=== PATIENT | male | born 1945 | race Caucasian/White ===

== ENCOUNTER → 2016-12-13 | Outpatient (CLI) | payer MEDICARE ==
[~2016-12-13] MED LIST: AMOX500C2 PO; ASP81TEC PO; AVOD0.5CAP PO; CALC500T24 PO; CATHETER FLUSH 10 ML SYR IV PRN; CCLB10TRX; CITA20TA4 PO; CLPD75T PO; CYANOCOBALAMIN SL; DEXT1DRO7 OU; ETD400T; EXEN10PE4 SQ; FOLI1TAB6 PO; HYDR-31; HYDR1TAB PO; IBUP-30 PO; INSU100V6 SQ; IOHEXOL 350 MG/ML 100 ML (OMNIPAQUE 350) VIAL IV ONE; IRBE300T9 PO; LVST20T PO; MAGN400C PO; MELO-195 PO; METF-380 PO; METO25TA PO; MTF500T; MULT-1029 PO; NS 100 ML (IVPB) BAG IV ONE; OMEG1CAP51 PO; OMEG1CAP58 PO; PEG250PW; POTA99TA15 PO; RSG4T; TRAV5DRO OP; VITAMIN B COMPLEX SL; VLS80C
--- NOTE | 2016-12-13 15:19 | Diagnostic Imaging Report ---
PROCEDURE: CT abdomen and pelvis with contrast. TECHNIQUE: Multiple contiguous axial images were obtained through the abdomen and pelvis after administration of intravenous contrast. INDICATION: Abdominal mass. COMPARISON STUDIES: None. FINDINGS: Just above the symphysis pubis, there is subcutaneous mass extending all the way down to the abdominal wall musculature. This measures 12 x 7.2 cm. This has a thin well-defined rim around it with slightly inhomogeneous substance within this. This is fairly high density and may be a hematoma. No calcifications are present. There are no hematocrit levels. No ascites or loculated fluid collections are seen within the abdominal cavity. The lung bases are clear. There is some calcification of the mitral valve annulus. The liver, gallbladder, spleen, pancreas, adrenal glands and kidneys appear normal. Minimal arteriosclerosis is present. Urinary bladder and prostate gland appear normal. No hernias are present. Degenerative and postoperative changes are present in the spine. IMPRESSION: There is a 12 x 7.2 cm subcutaneous abdominal wall mass just above the symphysis pubis. This extends all the way down to the abdominal musculature just above the symphysis pubis. This has a thin rim around it and is somewhat inhomogeneous but fairly high density. This is probably a hematoma. This could be easily aspirated or biopsied. Dictated by: Dictated on workstation # [id number]
== END ==
LOC: RAD 13:58
PROVIDERS: ATTEND Family Medicine
DX: R19.00 Intra-abdominal and pelvic swelling, mass and lump, unspecified site (principal)
CPT/HCPCS: 74177

== ENCOUNTER → 2016-12-31 | Outpatient (CLI) | payer MEDICARE ==
[~2016-12-31] VITALS: Ht 170.2 cm; Wt 129.8 kg
[~2016-12-31] MED LIST changes: -CATHETER FLUSH 10 ML SYR IV PRN; -IOHEXOL 350 MG/ML 100 ML (OMNIPAQUE 350) VIAL IV ONE; +LIDOCAINE 1% INJ 20 ML (XYLOCAINE) VIAL INJ ONE; -NS 100 ML (IVPB) BAG IV ONE
[2016-12-31 12:38] VITALS: BP 134/88
[2016-12-31 13:41] VITALS: BP 130/87
--- NOTE | 2016-12-31 20:19 | Diagnostic Imaging Report ---
EXAMINATION: Ultrasound-guided aspiration. INDICATION: Abdominal wall collection. Current history and physical and other medical records are reviewed prior to the procedure. CONSENT: Informed consent was obtained from the patient. The risks, benefits, potential complications and alternatives were reviewed and all questions answered to the patient's satisfaction. The patient's vital signs, cardiac rhythm, and pulse oximetry with observed throughout the procedure by qualified nursing personnel. Sedation/medications: None. PROCEDURE: After maximal sterile barrier technique preparation and draping, 1% lidocaine was utilized for local anesthesia. Under live ultrasound guidance, 5 [place] African WholeWorldBand catheter was introduced over its needle into the thick complex collection measuring 13 x 5.6 x 5 CM in the umbilical and infraumbilical region under live ultrasound guidance with images saved demonstrating good position of the needle. This was followed by introducing a wire into the collection and subsequently dilatation with 8 South African and 10 South African dilators were performed. Then a 10 South African drainage pigtail tube was introduced over the wire and total of 180 mL of dark brownish fluid compatible with old blood was aspirated. This did not look grossly infected. The rest of the collection was too thick to be aspirated and is compatible with a hematoma. At the conclusion of the procedure the drain was removed. The patient tolerated the procedure well with no immediate complications. FINDINGS: Findings compatible with old hematoma with no gross evidence of infection.. IMPRESSION: Ultrasound-guided aspiration of abdominal wall hematoma. Dictated by: Dictated on workstation # [id number]
== END ==
LOC: RAD 12:28
PROVIDERS: ATTEND Nurse Practitioner Family
DX: R19.05 Periumbilic swelling, mass or lump (principal)
CPT/HCPCS: 76942

== ENCOUNTER 2017-01-10 05:37 | Outpatient (CLI) | payer MEDICARE ==
[~2017-01-10] VITALS: Ht 170.2 cm; Wt 124.9 kg
[~2017-01-10 05:37] MED LIST changes: -LIDOCAINE 1% INJ 20 ML (XYLOCAINE) VIAL INJ ONE
== END 2017-01-10 12:30 ==
LOC: PREOP 05:37
PROVIDERS: ATTEND Surgery
DX: Z01.818 Encounter for other preprocedural examination (principal); Z12.11 Encounter for screening for malignant neoplasm of colon

== ENCOUNTER 2017-01-21 10:04 | Day surgery (SDC) | payer MEDICARE ==
[2017-01-21 10:10] VITALS: BP 144/78
[2017-01-21] MEDS ORDERED: NS IV 500 ML 500 ML IV PRN (10:30)
[2017-01-21] MEDS ORDERED: NS IV 500 ML 500 ML ONE (10:34)
[2017-01-21] MEDS ORDERED: NALOXONE 0.4 MG/ML 1 ML (NARCAN) VIAL IVP PRN (11:00)
[2017-01-21] MEDS ORDERED: FLUMAZENIL (ROMAZICON) 0.1 MG/ML 5 ML VIAL INJ PRN (11:00)
[2017-01-21] MEDS ORDERED: fentaNYL INJECTION 100 MCG/2 ML AMP ONE (11:39)
[2017-01-21] MEDS ORDERED: MIDAZOLAM 2 MG/2 ML (VERSED) VIAL ONE ×3 (11:39)
[2017-01-21] MEDS: fentaNYL INJECTION 100 MCG/2 ML AMP IVP PRN ×2 (12:04→12:11)
[2017-01-21] MEDS: MIDAZOLAM 2 MG/2 ML (VERSED) VIAL IVP PRN ×2 (12:06→12:10)
--- NOTE | 2017-01-21 12:26 | Conscious Sedation/ASA ---
Conscious Sedation Pre-Proced Time Reviewed: 11:48 ASA Class: 2 Airway Mallampati Classification: (grindstone appropriate class) I. II. III, IV Lungs Heart ASA score ASA 1: a normal healthy patient ASA 2: a patient with a mild systemic disease (mid diabetes, controlled hypertension, obesity ASA 3: a patient with a severe systemic disease that limits activity (angina , COPD, prior Myocardial infarction) ASA 4: a patient with an incapacitating disease that is a constant threat to life (CHF, renal failure) ASA 5: a moribund patient not expected to survive 24 hrs. (ruptured aneurysm) ASA 6: a declared brain patient whose organs are being harvested. For emergent operations, add the letter E after the classification Grade 2 Sedation Plan: Discussed options with patient/fam Note The patient is an appropriate candidate to undergo the planned procedure, sedation, and anesthesia. The patient immediately re-assessed prior to indication. KILEY WEST MD January 21, 2017 12:26 pm
--- NOTE | 2017-01-21 12:27 | Endoscopy Procedure Report ---
Endoscopy Report Date: January 21, 2017 Preoperative Diagnosis: screening Study Performed: Colonoscopy Procedure Instrument: Colonoscope Endo Procedure/Findings Findings 1.: Diverticulosis Recommendations: Recommendations: 1.: Colonscopy in 10 years Copy Copies To 1: CJ JOYA MD, XAVIER M MD January 21, 2017 12:27 pm
--- NOTE | 2017-01-21 12:28 | Discharge Inst-Simple/Standard ---
Discharge Inst-Standard Discharge Medications New, Converted or Re-Newed RX: Other Patient Instructions/Follow Up Plan of Care/Instructions/FU: repeat colonoscopy in 10 years Activity as Tolerated: Yes Discharge Diet: No Restrictions KILEY WEST MD January 21, 2017 12:28 pm
[2017-01-21 12:40] VITALS: BP 125/81
[2017-01-21 13:10] VITALS: BP 136/78
[2017-01-21 13:55] VITALS: BP 136/78
--- NOTE | 2017-01-22 00:10 | OPERATIVE REPORT ---
DATE OF SERVICE: 01/21/2017 PROCEDURE: Screening colonoscopy. SURGEON: Kiley West MD INDICATION FOR PROCEDURE: This gentleman came in for screening colonoscopy. He denied any family history of colon cancer. Informed consent was obtained after reviewing the procedure in detail. DESCRIPTION OF PROCEDURE: He was placed in left lateral decubitus position, and his vital signs were monitored. Conscious sedation was achieved using Versed and Fentanyl. Digital rectal examination was unremarkable. The colonoscope was then introduced into the rectum and advanced all the way up to the rectum. The scope was then withdrawn slowly, and the mucosa examined in a systematic fashion. FINDINGS: 1. Sigmoid diverticulosis. 2. No polyps were found. He tolerated the procedure and was taken back to the nursing area in a stable condition. IMPRESSION: Screening colonoscopy. No polyps. Job ID: [id number] DocumentID: [id number] Dictated Date: 01/21/2017 12:23:41 Screenplay Writer Date: 01/22/2017 00:09:12 Dictated By: KILEY WEST MD MTDD
== END 2017-01-21 13:55 | disposition home or self-care (01) ==
LOC: ENDO 10:04
PROVIDERS: ATTEND Surgery
DX: Z12.11 Encounter for screening for malignant neoplasm of colon (principal); K57.30 Diverticulosis of large intestine without perforation or abscess without bleeding; I10 Essential (primary) hypertension; I25.10 Atherosclerotic heart disease of native coronary artery without angina pectoris; E11.9 Type 2 diabetes mellitus without complications; K21.9 Gastro-esophageal reflux disease without esophagitis; E78.5 Hyperlipidemia, unspecified; M19.90 Unspecified osteoarthritis, unspecified site

== ENCOUNTER → 2017-04-11 | Outpatient (CLI) | payer MEDICARE | LOC: CARD 09:27 | PROVIDERS: ATTEND Family Medicine | DX: I49.9 Cardiac arrhythmia, unspecified (principal) | CPT/HCPCS: 93225; 93226 ==

== ENCOUNTER → 2017-06-10 | Outpatient (CLI) | payer MEDICARE ==
--- NOTE | 2017-06-10 16:00 | Diagnostic Imaging Report ---
PA and lateral views of the chest. INDICATION: Chronic cough. FINDINGS: The lungs are hyperinflated with no focal infiltrate. Mild interstitial thickening appears to be chronic. No prior studies are available for comparison however. The heart size is mildly enlarged. No effusion or pneumothorax. The mediastinum and herminio appear unremarkable. There is degenerative change in the thoracic spine with anterior longitudinal ligament ossifications and anterior osteophytes. IMPRESSION: Cardiomegaly with no evidence of failure. Dictated by: Dictated on workstation # [id number]
== END ==
LOC: RAD 13:40
PROVIDERS: ATTEND Otolaryngology Otolaryngology/Facial Plastic Surgery
DX: I51.7 Cardiomegaly (principal); R05 Cough
CPT/HCPCS: 71020

== ENCOUNTER → 2017-06-25 | Outpatient (CLI) | payer MEDICARE ==
[~2017-06-25] MED LIST changes: +CATHETER FLUSH 10 ML SYR IV PRN; +REGADENOSON 0.4 MG/5 ML SYR (LEXISCAN) IV ONE
[2017-06-25 12:50] VITALS: BP 143/77
--- NOTE | 2017-06-27 14:13 | STRESS TEST ---
DATE OF SERVICE: 06/25/2017 RESTING AND POST REGADENOSON TECHNETIUM-99M TETOFOSMIN SPECT CT IMAGING ORDERING PHYSICIAN: Ivanna Concepcion APRN PRIMARY PHYSICIAN: Dr. Harrell. OTHER PHYSICIAN: Dr. Mcintyre. CLINICAL DIAGNOSES: Coronary artery disease. Baseline images were carried out after injection of 10.66 mCi of Technetium-99M Tetrofosmin. This was followed by 0.4 mg regadenoson and 29.7 mCi of Technetium-99M Tetrofosmin for stress imaging. The electrocardiogram showed sinus rhythm at baseline. Old septal myocardial infarction cannot be excluded on the electrocardiogram. The electrocardiogram did not change significantly with the regadenoson infusion. Overall, the patient tolerated the procedure well. Review of images at rest and following stress does not indicate any significant perfusion defects consistent with significant myocardial ischemia or infarction. Gated images show mild global hypokinesis. Left ventricular ejection fraction is calculated to be 47%. Left ventricular end diastolic volume is 70 mL. TID is absent (1.19). CONCLUSIONS: 1. No evidence of significant myocardial ischemia or infarction on this study. 2. Mild global hypokinesis of the left ventricle with left ventricular ejection fraction of 47%. Job ID: [id number] DocumentID: [id number] Dictated Date: 06/27/2017 12:14:37 Vocational Examiner Date: 06/27/2017 12:54:06 Dictated By: KI MCINTYRE MD, MA, FACP, FACC,
== END ==
LOC: CARD 11:14
PROVIDERS: ATTEND Nurse Practitioner Family
DX: I25.10 Atherosclerotic heart disease of native coronary artery without angina pectoris (principal); R06.09 Other forms of dyspnea; I65.23 Occlusion and stenosis of bilateral carotid arteries; E78.4 Other hyperlipidemia
CPT/HCPCS: 78452; 93017

== ENCOUNTER → 2017-07-11 | Outpatient (CLI) | payer MEDICARE ==
[~2017-07-11] MED LIST changes: -CATHETER FLUSH 10 ML SYR IV PRN; -REGADENOSON 0.4 MG/5 ML SYR (LEXISCAN) IV ONE
== END ==
LOC: CARD 12:30
PROVIDERS: ATTEND Nurse Practitioner Family
DX: I25.10 Atherosclerotic heart disease of native coronary artery without angina pectoris (principal); I65.23 Occlusion and stenosis of bilateral carotid arteries; E78.4 Other hyperlipidemia; R06.09 Other forms of dyspnea
CPT/HCPCS: 93306

== ENCOUNTER → 2018-12-11 | Outpatient (CLI) | payer MEDICARE ==
--- NOTE | 2018-12-11 18:05 | Diagnostic Imaging Report ---
PROCEDURE: CT abdomen and pelvis without contrast. TECHNIQUE: Multiple contiguous axial images were obtained through the abdomen and pelvis without the use of intravenous contrast. Auto Exposure Controls were utilized during the CT exam to meet ALARA standards for radiation dose reduction. INDICATION: Abdominal wall hernia. CORRELATION STUDY: 12/13/2016. FINDINGS: Lung bases are clear. Heart size is enlarged. Dense mitral calcification. Low attenuation of the liver suggesting fatty infiltration. Gallbladder appears to be small, maybe contracted. Some debris is not excluded. Unenhanced spleen, pancreas, and adrenal glands demonstrate no suggestion for acute abnormality. The kidneys have a normal configuration. No calcification or evidence for obstruction. Abdominal aorta is nonaneurysmal. There is calcification at the origin of the major branches. Gastrointestinal tract demonstrates the stomach to be distended with retained gastric contents. No bowel obstruction. Vqfd-qv-vaupalrd severity fecal retention with distal colonic fecal loading. There is again noted an elongated, somewhat thick-walled abdominal mass just above the level of the symphysis pubis to the left of midline and extending superiorly to the level of the umbilicus. This appears relatively stable. There has been development of a new, larger fluid collection to the left of lateral aspect of this. This is incompletely imaged but measures at least 9.3 cm AP x 13.3 cm transverse x 15.5 cm in its craniocaudal length. There is a suggestion of fluid-fluid level within this larger mass. The inferior extent of this mass is incompletely imaged. Urinary bladder is relatively decompressed. Osseous structures demonstrate a posterior fusion hardware. Advanced degenerative changes are present. IMPRESSION: 1. A subcutaneous lower abdominal wall mass just above the symphysis pubis overall appears generally stable. There has been, however, development of a new, thinner walled but larger mass with fluid-fluid level or debris fluid level to the lateral aspect of this. These areas are incompletely imaged. Dictated by: Dictated on workstation # [id number]
== END ==
LOC: RAD 16:29
PROVIDERS: ATTEND Surgery
DX: K43.9 Ventral hernia without obstruction or gangrene (principal); R22.2 Localized swelling, mass and lump, trunk
CPT/HCPCS: 74176

== ENCOUNTER 2019-01-08 08:58 | Outpatient (CLI) | payer MEDICARE ==
[~2019-01-08] VITALS: Ht 170.2 cm; Wt 106.1 kg
[2019-01-08 09:13] VITALS: BP 155/71
[2019-01-08] MEDS ORDERED: LOVA20TA2 PO (10:05)
[2019-01-08] MEDS ORDERED: METO-387 PO (10:05)
[2019-01-08] MEDS ORDERED: OMEG-91 PO (10:05)
[2019-01-08] MEDS ORDERED: METF-399 PO (10:05)
[2019-01-08] MEDS ORDERED: CLOP75TA28 PO (10:05)
[2019-01-08] MEDS ORDERED: ASPI-999 PO (10:05)
[2019-01-08] MEDS ORDERED: MAGN400T50 PO (10:05)
[2019-01-08] MEDS ORDERED: IRBE300T18 PO (10:05)
[2019-01-08] MEDS ORDERED: FINA5TAB6 PO (10:09)
[2019-01-08] MEDS ORDERED: PANT40TA3 PO (10:09)
[2019-01-08] MEDS ORDERED: CARB1TAB19 PO (10:09)
[2019-01-08] MEDS ORDERED: MAGN250T13 PO (10:14)
[2019-01-08] MEDS ORDERED: [UNRECOGNIZED DRUG - OTHER] PO (10:14)
[2019-01-08] MEDS ORDERED: VITA1TAB78 PO (10:14)
[2019-01-08] MEDS ORDERED: VITA-189 PO (10:14)
[2019-01-08] MEDS ORDERED: UBID100C17 PO (10:30)
== END 2019-01-08 09:45 | disposition home or self-care (01) ==
LOC: PREOP 08:58
PROVIDERS: ATTEND Surgery
DX: Z01.810 Encounter for preprocedural cardiovascular examination (principal); Z11.2 Encounter for screening for other bacterial diseases; R19.09 Other intra-abdominal and pelvic swelling, mass and lump
CPT/HCPCS: 87081; 93005

== ENCOUNTER 2019-01-15 06:17 | Day surgery (SDC) | payer MEDICARE ==
[~2019-01-15] VITALS: Ht 170.2 cm; Wt 106.1 kg
[2019-01-15] VITALS (14 sets, daily range): BP systolic 121–178; BP diastolic 57–86
[~2019-01-15 06:17] MED LIST changes: +ASPI-999 PO; +CARB1TAB19 PO; +CLOP75TA28 PO; +FINA5TAB6 PO; +IRBE300T18 PO; +LOVA20TA2 PO; +MAGN250T13 PO; +MAGN400T50 PO; +METF-399 PO; +METO-387 PO; +OMEG-91 PO; +PANT40TA3 PO; +UBID100C17 PO; +VITA-189 PO; +VITA1TAB78 PO; +[UNRECOGNIZED DRUG - OTHER] PO
[2019-01-15] MEDS ORDERED: CATHETER FLUSH 10 ML SYR IV PRN (07:00)
[2019-01-15] MEDS ORDERED: ceFAZolin 2 GM/50 ML NS 50 ML IV ONE (07:00)
[2019-01-15] MEDS ORDERED: proPOfol 200 MG/20 ML (DIPRIVAN) VIAL IV ONE (07:04)
[2019-01-15] MEDS ORDERED: LIDOCAINE PF 2% 5 ML (XYLOCAINE) VIAL ONE (07:04)
[2019-01-15] MEDS ORDERED: MIDAZOLAM 2 MG/2 ML (VERSED) VIAL ONE (07:04)
[2019-01-15] MEDS ORDERED: DEXAMETHASONE 10 MG/ML (DECADRON) 1 ML VIAL ONE (07:04)
[2019-01-15] MEDS ORDERED: fentaNYL INJECTION 250 MCG/5 ML AMP ONE (07:04)
[2019-01-15] MEDS ORDERED: SEVOFLURANE (ULTANE) 15 ML INHAL SOLN ONE ×9 (07:04→09:31)
[2019-01-15] MEDS ORDERED: ONDANSETRON 4 MG/2 ML (SDV) Z0FRAN ONE (07:04)
--- NOTE | 2019-01-15 07:19 | Progress Note-Pre Operative ---
Pre-Operative Progress Note H&P Reviewed The H&P was reviewed, patient examined and no changes noted. Date Seen by Provider: January 15, 2019 Time Seen by Provider: 07:02 Date H&P Reviewed: January 15, 2019 Time H&P Reviewed: 07:02 Pre-Operative Diagnosis: abdominal wall mass RHODA WYNN DO January 15, 2019 07:19
[2019-01-15] MEDS: LACTATED RINGERS 1,000 ML IV PRN ×2 (07:47→08:45)
[2019-01-15] MEDS ORDERED: metroNIDAZOLE 500MG/100ML IVPB 100 ML ONE (08:42)
[2019-01-15] MEDS ORDERED: BUPIVACAINE 0.5% 30 ML (SENSORCAINE) VIAL ONE (09:31)
[2019-01-15] MEDS ORDERED: MEPERIDINE (DEMEROL) INJ 50 MG/ML IVP ONE (09:45)
[2019-01-15] MEDS ORDERED: fentaNYL INJECTION 100 MCG/2 ML AMP IVP ONE (09:45)
[2019-01-15] MEDS ORDERED: ONDANSETRON 4 MG/2 ML (SDV) Z0FRAN IVP PRN (09:45)
[2019-01-15] MEDS ORDERED: HYDROcodone/APAP 5 MG/325 MG (LORTAB) TAB PO PRN (09:45)
[2019-01-15] MEDS ORDERED: fentaNYL INJECTION 100 MCG/2 ML AMP IVP PRN (09:45)
[2019-01-15] MEDS ORDERED: LACTATED RINGERS 1,000 ML BAG IV SCH (09:45)
--- NOTE | 2019-01-15 10:30 | Progress Note-Post Operative ---
Post-Operative Progess Note Surgeon (s)/Desktop Architect (s) Surgeon RHODA WYNN DO Desktop Architect: na Pre-Operative Diagnosis abdominal wall mass Post-Operative Diagnosis cystic mass Procedure & Operative Findings Date of Procedure 01/15/19 Procedure Performed/Findings excsision of cystic mass and wound vac placement subcutaneous layer Anesthesia Type gen Estimated Blood Loss Estimated blood loss (mL): min Specimens/Packing Specimens Removed cyst mass RHODA WYNN DO January 15, 2019 10:30
--- NOTE | 2019-01-15 12:05 | NUR ---
PATIENT TO GO TO ROOM 417. REPORT CALLED DULCE TRAORE RN.
--- NOTE | 2019-01-15 12:25 | NUR ---
ARABELLA JHAVERI admitted to room 417-1, with an OBSERVATION admitting diagnosis of ABD WALL MASS WOUND VAC LLQ , on 01/15/19 from [facility] via [facility], accompanied by .ARABELLA JHAVERI introduced to surroundings, call light, bed controls, phone, TV, temperature control, lights, meal times, smoking policy, visitor policy, side rail policy, bathrooms and showers. Patient Rights given to patient in the handbook. ARABELLA JHAVERI verbalizes understanding that [facility] is not responsible for the loss or damage to any personal effects or valuables that are kept in the patients posession during their hospitalization. The following Patient Care Plans were discussed with the PT: Discharge Planning, PAIN, HIGH RISK FL VOL DEFICIT, AMD HIGH RISK INFECTION. ARABELLA JHAVERI verbalizes understanding of Interdisciplinary Patient Education. Patient and/or family were informed about the Rapid Response Team and its purpose. CAME TO FLOOR WITH IV IN LAC LR ([id number]) INFUSING PER GRAVITY
--- NOTE | 2019-01-15 14:19 | NUR ---
THIS RN CALLED DR WYNN ABOUT WOUND VAC -- IT LOOKS LIKE WOUND VAC WE USE HERE IN HOSPITAL -- DR WYNN VOICED THAT HE WAS TO GO HOME EITHER TODAY OR TOMORROW WITH WOUND VAC -- HE HAD TALKED TO ULISSES -- THIS RN CALLED AND LEFT MESSAGE TO ULISSES ABOUT WOUND VAC
--- NOTE | 2019-01-15 14:58 | NUR ---
TALKED TO [employer] TE[employer]ER MAIKEL AND SHE TALKED TO ULISSES HE IS AWARE OF THE NEED FOR HOME WOUND VAC AND IT WILL BE APPLY WHEN PT DISCHARGED TO HOME
--- NOTE | 2019-01-15 19:18 | OPERATIVE REPORT ---
DATE OF SERVICE: 01/15/2019 PREOPERATIVE DIAGNOSIS: Abdominal wall mass. POSTOPERATIVE DIAGNOSIS: Abdominal wall mass, subcutaneous layer. PROCEDURE PERFORMED: Excision of abdominal mass, subcutaneous layer, 13 x 10 cm and 15 x 13 cm, wound VAC placement 15 x 20 x 7 cm. SURGEON: Rhoda Ramos DO ANESTHESIA: General. ESTIMATED BLOOD LOSS: Minimal. COMPLICATIONS: None. INDICATIONS: The patient is a 73-year-old male with a large abdominal wall mass. This slowly continued increase in size or become more noticeable since he began losing some weight. He understands risks and benefits of procedure and wished to proceed with procedure. Consent was signed in the chart. PROCEDURE IN DETAIL: The patient was taken to the operating suite. He was prepped and draped in sterile fashion. Surgical pause was performed. Incision was made over palpable mass. Cautery was taken down into the subcutaneous layer until the cystic mass was encountered. Dissection around the mass was continued. The first mass was 15 x 13 cm, which the wall was punctured and fluid continuously started to drain. This was suctioned. Then, I put my fingers inside the cavity and began to use this to dissect around the wall. This went to the umbilicus, which then was divided off of the umbilical stalk and encountered an inferior communication to this area from the original large mass. This was then dissected around completely. This communication size was 13 x 10 cm. The entire cystic mass was removed in its entirety. The wound was irrigated with copious amounts of irrigation. The overall dimensions of the wound was 15 x 20 x 7 cm. A wound VAC was placed in the usual fashion within it and the abdomen was then washed and dried and wound VAC was activated giving a good seal. The patient tolerated the procedure well without any complications. The patient was taken to the recovery room in stable condition. Job ID: [id number] DocumentID: [id number] Dictated Date: 01/15/2019 10:48:09 Organ Pipe Maker Metal Date: 01/15/2019 19:17:36 Dictated By: RHODA RAMOS DO
--- NOTE | 2019-01-15 19:39 | Consultation ---
History of Present Illness History of Present Illness Patient Consulted On(cassius/time) 01/15/19 19:34 Date Seen by Provider: January 15, 2019 Time Seen by Provider: 19:45 Reason for Visit: status post mass removal from abdomen History of Present Illness Bert is a 73 y/o male who is well known to me from clinic. Bert presented to the hospital for a planned surgical excision of abdominal masses with Dr. Ramos. This evening he states that his pain is fairly well controlled - he notes that he is having some pain around the surgical site, but not as much as immediately post operative. Allergies and Home Medications Allergies Coded Allergies: morphine (Verified Adverse Reaction, Intermediate, PSYCH ISSUES, 01/21/17) Home Medications Acetaminophen 500 Mg Tablet, 500 MG PO Q6H PRN for PAIN-MILD TO MODERATE Prescribed by: CJ JOYA on 01/16/19 0947 Aspirin 81 Mg Tab.chew, 81 MG PO DAILY, (Reported) Carbidopa/Levodopa 1 Each Tablet, 1 EACH PO TID, (Reported) Clopidogrel Bisulfate 75 Mg Tablet, 75 MG PO DAILY@1200, (Reported) Finasteride 5 Mg Tablet, 5 MG PO DAILY@1700, (Reported) Hydrocodone Bit/Acetaminophen 1 Tab Tab, 1 TAB PO Q4H PRN for PAIN-MODERATE Prescribed by: CJ JOYA on 01/16/19 0947 Ibuprofen 200 Mg Capsule, 600 MG PO TID PRN for PAIN-MODERATE Prescribed by: CJ JOYA on 01/16/19 0947 Irbesartan 300 Mg Tablet, 300 MG PO DAILY, (Reported) Lovastatin 20 Mg Tablet, 20 MG PO HS, (Reported) Magnesium Oxide 400 Mg Tablet, 400 MG PO HS, (Reported) Magnesium Oxide 250 Mg Tablet, 250 MG PO DAILY, (Reported) Metformin HCl 1,000 Mg Tablet, 1,000 MG PO BID, (Reported) Metoprolol Succinate 25 Mg Tab.er.24h, 25 MG PO DAILY@1200, (Reported) [place]-3/Dha/Epa/Dpa/Fish Oil 1 Each Capsule, 1 EACH PO BID, (Reported) Pantoprazole Sodium 40 Mg Tablet.dr, 40 MG PO DAILY@1200, (Reported) Ubidecarenone 100 Mg Capsule, 100 MG PO DAILY, (Reported) Vitamin B Complex 1 Each Tablet, 1 EACH PO DAILY, (Reported) Vitamin D3/Vitamin K2 1 Each Tab.rapdis, 1 EACH PO DAILY, (Reported) [electrolyte power] , 1 EACH PO BID, (Reported) Patient Home Medication List Home Medication List Reviewed: Yes Past Lbtvgwx-Cokofc-Opcwiq Hx Past Med/Social Hx: Reviewed Nursing Past Med/Soc Hx, Reviewed and Corrections made Patient Social History Alcohol Use: Denies Use Recreational Drug Use: No Smoking Status: Never a Smoker 2nd Hand Smoke Exposure: No Recent Foreign Travel: No Contact w/Someone Who Travel: No Recent Infectious Disease Expo: No Recent Hopitalizations: No Physical Abuse: No Sexual Abuse: No Mistreated: No Fear: No Immunizations Up To Date Date of Pneumonia Vaccine: Aug 28, 2011 Date of Influenza Vaccine: Jun 18, 2016 Seasonal Allergies Seasonal Allergies: No Past Medical History Surgeries: Yes (BACK, FATTY TUMOR REMOVED FROM ARM BABY) Respiratory: Yes Sleep Apnea Currently Using CPAP: Yes Cardiac: Yes High Cholesterol, Hypertension Neurological: No (tremors) Reproductive Disorders: No Sexually Transmitted Disease: No HIV/AIDS: No Genitourinary: Yes Benign Prostatic Hyperpl Gastrointestinal: No (abd wall mass) Gastroesophageal Reflux Musculoskeletal: No Endocrine: Yes Diabetes, Non-Insulin dep HEENT: Yes Macular Degeneration Loss of Vision: Bilateral Hearing Impairment: Hard of Hearing Cancer: No Psychosocial: No Integumentary: No Blood Disorders: No Adverse Reaction/Blood Tranf: No Family Medical History Reviewed and Corrections made Heart Disease, Hypertension Review of Systems-General Constitutional: No chills, No fever, No malaise, No weakness; weight loss ( purpuseful) EENTM: No hearing loss, No hoarseness, No throat pain Respiratory: No cough, No dyspnea on exertion, No short of breath, No wheezing Cardiovascular: No chest pain, No edema Gastrointestinal: abdominal pain (LLQ); No loss of appetite, No nausea, No vomiting Genitourinary: no symptoms reported Musculoskeletal: no symptoms reported Skin: other (open wound lower abdomen) Psychiatric/Neurological: Denies Anxiety, Denies Depressed All Other Systems Reviewed Negative Unless Noted: Yes Physical Exam-General Problems Physical Exam Vital Signs Vital Signs - First Documented 01/15/19 01/15/19 06:30 09:37 Temp 97.4 Pulse 57 Resp 18 B/P (MAP) 137/76 (96) Pulse Ox 93 O2 Delivery Room Air O2 Flow Rate 6 Capillary Refill : General Appearance: WD/WN, no apparent distress, obese Eyes: Bilateral Eye Normal Inspection, Bilateral Eye PERRL, Bilateral Eye EOMI HEENT: PERRL/EOMI, pharynx normal Neck: non-tender, supple, normal inspection Respiratory: chest non-tender, lungs clear, normal breath sounds, no respiratory distress Cardiovascular: regular rate, rhythm Gastrointestinal: normal bowel sounds, soft, other (surgical site in left to mid lower abdomen - wound vac in place) Extremities: non-tender, no calf tenderness, normal capillary refill Skin: warm/dry Lymphatic: no adenopathy Assessment/Plan Assessment/Plan Admission Diagnosis/Plan Abdominal masses Hypertension Diabetes mellitus Morbid obesity Hyperlipidemia BPH Abdominal masses - post surgical - mass excision - wound Vac in place - planning on wound vac changes tomorrow and then outpatient wound vac changes for several weeks post surgically until the wound heals. Hypertension - resume home medication today. Diabetes mellitus - resume medication on discharge. Morbid obesity - continue with restrictive diet. Hyperlipidemia - continue with statin therapy on discharge. BPH - resume finasteride. Planning on discharge to home tomorrow with outpatient wound care per Dr. Ramos. Admission Status: Other (Same Day Surgery) CJ JOYA MD January 15, 2019 19:39
[2019-01-15] MEDS ORDERED: LORATADINE (CLARITIN) 10 MG TAB PO NR (20:15)
[2019-01-15] MEDS ORDERED: CHLORASEPTIC LOZENGE MM PRN (20:15)
[2019-01-15] MEDS ORDERED: CHLORASEPTIC LOZENGE MM NR (20:15)
[2019-01-15] MEDS ORDERED: diphenhydrAMINE 25 MG TAB (BENADRYL) PO PRN (20:15)
[2019-01-15] MEDS: SINEMET 25/100 (CARBIDOPA/LEVODOPA) TAB PO SCH (20:52)
[2019-01-15] MEDS ORDERED: NON-FORMULARY MEDICATION 1 EA EA (Carbidopa/Levodopa (Carbidopa-Levodopa 25-100 Tab) 1 EAC PO SCH (21:00)
[2019-01-15] MEDS ORDERED: FINASTERIDE (PROSCAR) 5 MG TAB PO SCH (21:00)
[2019-01-16 00:44] VITALS: BP 105/54
[2019-01-16 04:00] VITALS: BP 134/62
[2019-01-16 08:00] VITALS: BP 146/67
[2019-01-16] MEDS ORDERED: NON-FORMULARY MEDICATION 1 EA EA (Irbesartan 300 MG) PO SCH (09:00)
[2019-01-16] MEDS ORDERED: LOSARTAN 100 MG (COZAAR) TABLET PO SCH (09:00)
[2019-01-16] MEDS: SINEMET 25/100 (CARBIDOPA/LEVODOPA) TAB PO SCH (09:42)
[2019-01-16] MEDS ORDERED: IBUP-2185 PO ×2 (09:47)
[2019-01-16] MEDS ORDERED: ACET-2267 PO ×2 (09:47)
[2019-01-16] MEDS ORDERED: ACHD5005 PO ×2 (09:47)
--- NOTE | 2019-01-16 09:55 | Discharge Inst-Complex ---
PDI Med Rec & Follow Up Appt. New Medications: Acetaminophen (Tylenol Extra Strength) 500 Mg Tablet 500 MG PO Q6H PRN for PAIN-MILD TO MODERATE, #100 TAB Ibuprofen (Ibuprofen) 200 Mg Capsule 600 MG PO TID PRN for PAIN-MODERATE, #60 CAP Hydrocodone Bit/Acetaminophen (Hydrocodone/Acetaminophen 5/325mg Tablet) 1 Tab Tab 1 TAB PO Q4H PRN for PAIN-MODERATE, #10 TAB Continued Medications: Aspirin (Aspirin) 81 Mg Tab.chew 81 MG PO DAILY, TAB Carbidopa/Levodopa (Carbidopa-Levodopa 25-100 Tab) 1 Each Tablet 1 EACH PO TID, TAB Clopidogrel Bisulfate (Clopidogrel) 75 Mg Tablet 75 MG PO DAILY@1200, TAB [electrolyte power] () 1 EACH PO BID Finasteride (Finasteride) 5 Mg Tablet 5 MG PO DAILY@1700, TAB Irbesartan (Irbesartan) 300 Mg Tablet 300 MG PO DAILY, TAB Lovastatin (Lovastatin) 20 Mg Tablet 20 MG PO HS, TAB Magnesium Oxide (Magnesium Oxide) 400 Mg Tablet 400 MG PO HS, TAB Magnesium Oxide (Magnesium) 250 Mg Tablet 250 MG PO DAILY, TAB Metformin HCl (Metformin HCl) 1,000 Mg Tablet 1000 MG PO BID, TAB Metoprolol Succinate (Metoprolol Succinate) 25 Mg Tab.er.24h 25 MG PO DAILY@1200, TAB [place]-3/Dha/Epa/Dpa/Fish Oil ([place]-3 1,050 mg Softgel) 1 Each Capsule 1 EACH PO BID, CAP Pantoprazole Sodium (Pantoprazole Sodium) 40 Mg Tablet.dr 40 MG PO DAILY@1200, TAB Ubidecarenone (Coq-10) 100 Mg Capsule 100 MG PO DAILY, CAP Vitamin B Complex (B Complex) 1 Each Tablet 1 EACH PO DAILY, TAB Vitamin D3/Vitamin K2 (D3 + K2 Dots 1,000 Units Tab) 1 Each Tab.rapdis 1 EACH PO DAILY, TAB Prescription: Transmitted to Pharmacy Patient Instructions: for pain control - before use of hydrocodone - use medications as follows: tylenol 500mg 1 -2 tabs by mouth every 6 hours as needed for pain - do not take more than 3000mg in 24 hours. ibuprofen 200mg - 3 pills ever 8 hours as needed for moderate pain Activity, Diet and PDI Resume Normal Activity: Yes Discharge Diet: ADA Diet Drink 6-8 Glasses of Fluid/Day: Yes Driving Instructions: No Driving for 24 Hours Symptoms to Reoprt to : Appetite Changes, Swelling Increased, Bleeding Excessive, Fever Over 101 Degrees F, Pain/Pressure in Chest, Dizziness/Fainting , Shortness of Breath For Problems or Questions: Contact Your Physician, Go to Emergency Room CJ JOYA MD January 16, 2019 09:55
--- NOTE | 2019-01-16 10:00 | Anesthesia-General Post-Op ---
General Patient Condition Mental Status/LOC: Same as Preop Cardiovascular: Satisfactory Nausea/Vomiting: Absent Respiratory: Satisfactory Pain: Controlled Complications: Absent Post Op Complications Complications None Follow Up Care/Instructions Patient Instructions None needed. Anesthesia/Patient Condition Patient Condition Patient is doing well, no complaints, stable vital signs, no apparent adverse anesthesia problems. No complications reported per nursing. ROMY ABEL CRNA January 16, 2019 10:00
--- NOTE | 2019-01-16 10:01 | Anesthesia-Regional Post-Op ---
Regional Patient Condition Mental Status: Alert, Oriented x3 Circulation: Same as Pre-Op Headache: Absent Sensation: Full Recovery Motor Block: Absent Post Op Complications Complications None Follow Up Care/Instructions Patient Instructions None needed. Anesthesia/Patient Condition Patient is doing well, no complaints, stable vital signs, no apparent adverse anesthesia problems. No complications reported per nursing. ROMY ABEL CRNA January 16, 2019 10:00
--- NOTE | 2019-01-16 11:03 | Progress Note ---
Subjective Date Seen by a Provider: January 16, 2019 Time Seen by a Provider: 10:57 Subjective/Events-last exam No acute events overnight. Patient reports that he is doing well and is eager to go home. He rates his pain as 1 or 2 out of 10 near the area of his surgery. He has been up and moving out of bed, ate his breakfast this morning with no complications, and has been voiding. He denies having had a bowel movement. He denies subjective fever, nausea, vomiting, chest pain, or shortness of breath. Objective Exam Vital Signs Date Time Temp Pulse Resp B/P (MAP) Pulse Ox O2 Delivery O2 Flow Rate FiO2 01/16/19 08:00 97.6 57 20 146/67 (93) 98 Room Air 01/16/19 04:00 98.1 72 20 134/62 (86) 97 Room Air 01/16/19 00:44 99.1 63 20 105/54 (71) 96 Room Air 01/15/19 21:00 Room Air 01/15/19 19:08 97.6 77 20 121/57 (78) 97 Room Air 01/15/19 15:39 97.2 81 20 136/75 (95) 94 Room Air 01/15/19 14:55 97.0 73 16 145/80 98 Nasal Cannula 2.00 01/15/19 12:47 97.2 77 18 152/70 (97) 92 Room Air 01/15/19 12:25 98 Room Air 01/15/19 11:30 97.0 73 16 145/80 98 Nasal Cannula 2.00 01/15/19 11:00 97.1 73 16 148/80 92 Nasal Cannula 2.00 I & O 01/16/19 07:00 Intake Total 4110 ml Output Total 1925 ml Balance 2185 ml Capillary Refill : General Appearance: No Apparent Distress, WD/WN HEENT: PERRL/EOMI, Normal ENT Inspection, Pharynx Normal Neck: Normal Inspection Respiratory: Chest Non Tender, Normal Breath Sounds, No Accessory Muscle Use, No Respiratory Distress Cardiovascular: Regular Rate, Rhythm Gastrointestinal: non tender, soft Extremity: Normal Inspection, Non Tender Neurologic/Psychiatric: Alert, Oriented x3, Normal 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, 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 Norm as Tested Skin: Warm/Dry, Other (Wound vac in place in lower abdomen, no surrounding erythema) Lymphatic: No Adenopathy Assessment/Plan Assessment/Plan Assessment/Plan Abdominal masses Hypertension Diabetes mellitus Morbid obesity POD#1 s/p abdominal mass excision with wound vac placement Anticipating discharge today with wound vac Explained to patient the need for and frequency of wound vac changing Final Diagnosis Abdominal masses Hypertension Diabetes mellitus Morbid obesity POD#1 s/p abdominal mass excision with wound vac placement Supervisory-Addendum Brief Supervisory Addendum Participated in pt care: history, MDM, physical Personally performed: exam, history, MDM, supervision of care Care discussed with: other Results interpretation: agree with documentation KM [employer] ST[employer]ENT January 16, 2019 11:03 RHODA WYNN DO January 16, 2019 17:45
== END 2019-01-16 13:27 | disposition home or self-care (01) ==
LOC: SDC 06:17 → 4TH 12:23 → SDC 01-16 13:27
PROVIDERS: ATTEND Surgery
DX: R19.04 Left lower quadrant abdominal swelling, mass and lump (principal); I25.10 Atherosclerotic heart disease of native coronary artery without angina pectoris; I77.9 Disorder of arteries and arterioles, unspecified; E11.9 Type 2 diabetes mellitus without complications; E78.5 Hyperlipidemia, unspecified; G47.30 Sleep apnea, unspecified; R01.1 Cardiac murmur, unspecified; E66.9 Obesity, unspecified; Z80.8 Family history of malignant neoplasm of other organs or systems; I10 Essential (primary) hypertension; H91.90 Unspecified hearing loss, unspecified ear; M19.91 Primary osteoarthritis, unspecified site; M48.02 Spinal stenosis, cervical region; K21.9 Gastro-esophageal reflux disease without esophagitis; G20 Parkinson's disease; Z68.36 Body mass index [BMI] 36.0-36.9, adult; Z88.5 Allergy status to narcotic agent; Z79.02 Long term (current) use of antithrombotics/antiplatelets; Z79.01 Long term (current) use of anticoagulants; Z79.82 Long term (current) use of aspirin; Z79.899 Other long term (current) drug therapy
CPT/HCPCS: 82962; 88305

== ENCOUNTER 2019-01-23 13:58 | Observation (INO) | payer OTHER, MEDICARE ==
[~2019-01-23] VITALS: Ht 170.2 cm; Wt 103.0 kg
[~2019-01-23 13:58] MED LIST changes: +ACET-2267 PO; +ACHD5005 PO; +IBUP-2185 PO
--- NOTE | 2019-01-23 14:15 | NUR ---
DR WYNN HERE TO CHANGE WOUND VAC DRESSING. UPON PT COMING BACK TO ROOM FAMILY STATES HE BLACKED OUT WHILE DRIVING AND HIT A TWO CULVURTS AND A TELEPHONE POLL.
--- NOTE | 2019-01-23 14:41 | NUR ---
[facility] LAUNCHED FOR PT.
--- OUTSIDE RECORDS SUMMARY | 2019-01-23 14:48 | XMS REPORT | CCD ---
Author Author [facility] Organization [facility] Address [address] [place] [address] Phone Care Team Providers Care Beverage Host Name Role Phone PP Unavailable CCM Unavailable Summary Purpose Interface Exchange Insurance Providers Payer name Policy type / Coverage type Covered democrat ID Effective Begin Date Effective End Date WPS Medicare Part B Medicare Part B [id number] Unknown [facility] Medicare Part B [id number] Unknown Family history Nephew Diagnosis Age At Onset lung cancer Unknown Mother Diagnosis Age At Onset Heart disease Unknown Diabetes mellitus Type 2 Unknown Brother Diagnosis Age At Onset No Family Disease Entered N/A Brother Diagnosis Age At Onset No Family Disease Entered N/A Father Diagnosis Age At Onset No Family Disease Entered N/A Social History Social History Element Codes Description Effective Dates Marital status Unknown Single 07/18/2011 Employment Unknown Retired 07/18/[address]: 773398173 Never smoker 07/18/[address]: 342808000 Never drinks alcohol 07/18/2011 Has the patient ever used illegal drugs? Unknown Has never used illegal drugs 07/18/2011 Allergies, Adverse Reactions, Alerts Substance Reaction Codes Entered Date Inactivated Date Status * NO KNOWN ENVIRONMENTAL ALLERGIES Unknown 08/29/2011 No Inactive Date Active * NO KNOWN FOOD ALLERGIES Unknown 07/24/2011 No Inactive Date Active MORPHINE SULFATE RxNorm: 7052 07/18/2011 No Inactive Date Active Past Medical History Illness Codes Condition Status Onset Date Resolved Date Essential (primary) hypertension ICD-9: 401.1 ICD-10: I10 Active 12/05/2016 Unknown Morbid (severe) obesity due to excess calories ICD-9: 278.01 ICD-10: E66.01 Active 10/20/2015 Unknown Type 2 diabetes mellitus without complications ICD-9: 250.00 ICD-10: E11.9 Active 03/28/2017 Unknown Mixed hyperlipidemia ICD- 9: 272.2 ICD-10: E78.2 Active 11/18/2017 Unknown Essential (primary) hypertension ICD-9: 401.9 ICD-10: I10 Active 04/19/2014 Unknown Mixed hyperlipidemia ICD- 9: 272.4 ICD-10: E78.2 Active 10/31/2011 Unknown Type 2 diabetes mellitus with hyperglycemia ICD-9: 250.02 ICD-10: E11.65 Active 01/13/2014 Unknown Dorsalgia, unspecified ICD-9: 724.5 ICD-10: M54.9 Active 05/04/2014 Unknown Type 2 diabetes mellitus with diabetic polyneuropathy ICD-9: 250.60 ICD-10: E11.42 Active 04/03/2017 Unknown Encounter for gynecological examination (general) (routine) without abnormal findings ICD-9: V72.31 ICD-10: Z01.419 Active 05/21/2018 Unknown Encounter for immunization ICD-9: V04.81 ICD-10: Z23 Active 07/01/2013 Unknown Encounter for immunization ICD-9: V06.6 ICD-10: Z23 Active 05/21/2018 Unknown Arthralgia of bilateral temporomandibular joint ICD-9: 524.62 ICD-10: M26.623 Active 11/21/2017 Unknown Essential tremor ICD-9: 333.1 ICD-10: G25.0 Active 05/23/2016 Unknown Other obesity due to excess calories ICD-9: 278.00 ICD-10: E66.09 Active 03/06/2018 Unknown Encounter for general adult medical examination with abnormal findings ICD-9: V70.0 ICD-10: Z00.01 Active 03/28/2017 Unknown Trochanteric bursitis, right hip ICD-9: 726.5 ICD-10: M70.61 Active 12/24/2017 Unknown Cellulitis of left lower limb ICD-9: 682.6 ICD-10: L03.116 Active 07/02/2017 Unknown Other hypertrophic disorders of the skin ICD-9: 701.9 ICD-10: L91.8 Active 07/02/2017 Unknown Sciatica Unknown Active 06/04/2017 Unknown Lumbago with sciatica, right side ICD-9: 724.3 ICD-10: M54.41 Active 06/04/2017 Unknown Cough ICD-9: 786.2 ICD-10: R05 Active 04/03/2017 Unknown Palpitations ICD-9: 785.1 ICD-10: R00.2 Active 04/03/2017 Unknown Pain in right hip ICD-9: 719.45 ICD-10: M25.551 Active 08/30/2016 Unknown Dysuria ICD-9: 788.1 ICD-10: R30.0 Active 07/12/2016 Unknown Pain in left forearm ICD- 9: 729.5 ICD-10: M79.632 Active 07/12/2016 Unknown Muscle spasm of back ICD- 9: 724.8 ICD-10: M62.830 Active 06/20/2016 Unknown Myalgia ICD-9: 729.1 ICD-10: M79.1 Active 06/20/2016 Unknown Pain in thoracic spine ICD-9: 724.1 ICD-10: M54.6 Active 06/20/2016 Unknown URINARY FREQUENCY ICD-9: 788.41 Active 05/17/2015 Unknown DYSURIA ICD-9: 788.1 Active 05/08/2015 Unknown Diabetes mellitus type 2, uncontrolled ICD-9: 250.02 Active 01/13/2014 Unknown Diabetic neuropathy ICD- 9: 250.60 Active 04/19/2015 Unknown ESSENTIAL HYPERTENSION ICD-9: 401.9 Active 04/19/2014 Unknown MORBID OBESITY ICD-9: 278.01 Active 08/29/2011 Unknown Peripheral neuropathic pain ICD-9: 356.9 Active 04/19/2015 Unknown Cerumen impaction ICD-9: 380.4 Active 10/14/2012 Unknown DYSPHAGIA NEC ICD-9: 787.29 Active 10/04/2014 Unknown Esophageal reflux ICD-9: 530.81 Active 10/04/2014 Unknown DIABETES TYPE II ICD-9: 250.00 Active 08/02/2014 Unknown Enlarged prostate ICD-9: 600.00 Active 06/15/2014 Unknown BACKACHE ICD-9: 724.5 Active 05/04/2014 Unknown Right hip pain ICD-9: 719.45 Active 05/04/2014 Unknown Sacroiliitis ICD-9: 720.2 Active 05/04/2014 Unknown Mild cognitive impairment ICD-9: 331.83 Active 02/08/2014 Unknown Nightmares ICD-9: 307.47 Active 02/08/2014 Unknown Sleep apnea ICD-9: 780.57 Active 02/08/2014 Unknown Thumb pain ICD-9: 729.5 Active 10/14/2013 Unknown Flat feet ICD-9: 734 Active 07/01/2013 Unknown VACCIN FOR INFLUENZA ICD- 9: V04.81 Active 07/01/2013 Unknown Dietary restriction ICD- 9: V65.3 Active 03/04/2013 Unknown Tinnitus ICD-9: 388.30 Active 10/14/2012 Unknown Bursitis of hip, right ICD-9: 726.5 Active 09/25/2012 Unknown Immunization, pneumococcus and influenza ICD-9: V06.6 Active 06/04/2012 Unknown Depression ICD-9: 311 Active 04/09/2012 Unknown Cellulitis of face ICD- 9: 682.0 Active 03/04/2012 Unknown Hyperlipidemia ICD-9: 272.4 Active 10/31/2011 Unknown Anxiety Unknown Active 07/18/2011 Unknown Arthritis Unknown Active 07/18/2011 Unknown Depression Unknown Active 07/18/2011 Unknown Diabetes Unknown Active 07/18/2011 Unknown Hyperlipidemia Unknown Active 07/18/2011 Unknown Hypertension Unknown Active 07/18/2011 Unknown Macular degeneration Unknown Active 07/18/2011 Unknown Obesity Unknown Active 07/18/2011 Unknown Actinic keratosis ICD-9: 702.0 Active 07/18/2011 Unknown Problems Condition Codes Effective Dates Condition Status Essential (primary) hypertension ICD-9: 401.1 ICD-10: I10 12/05/2016 Active Morbid (severe) obesity due to excess calories ICD-9: 278.01 ICD-10: E66.01 10/20/2015 Active Type 2 diabetes mellitus without complications ICD-9: 250.00 ICD-10: E11.9 03/28/2017 Active Mixed hyperlipidemia ICD- 9: 272.2 ICD-10: E78.2 11/18/2017 Active Essential (primary) hypertension ICD-9: 401.9 ICD-10: I10 04/19/2014 Active Mixed hyperlipidemia ICD- 9: 272.4 ICD-10: E78.2 10/31/2011 Active Type 2 diabetes mellitus with hyperglycemia ICD-9: 250.02 ICD-10: E11.65 01/13/2014 Active Dorsalgia, unspecified ICD-9: 724.5 ICD-10: M54.9 05/04/2014 Active Type 2 diabetes mellitus with diabetic polyneuropathy ICD-9: 250.60 ICD-10: E11.42 04/03/2017 Active Encounter for gynecological examination (general) (routine) without abnormal findings ICD-9: V72.31 ICD-10: Z01.419 05/21/2018 Active Encounter for immunization ICD-9: V04.81 ICD-10: Z23 07/01/2013 Active Encounter for immunization ICD-9: V06.6 ICD-10: Z23 05/21/2018 Active Arthralgia of bilateral temporomandibular joint ICD-9: 524.62 ICD-10: M26.623 11/21/2017 Active Essential tremor ICD-9: 333.1 ICD-10: G25.0 05/23/2016 Active Other obesity due to excess calories ICD-9: 278.00 ICD-10: E66.09 03/06/2018 Active Encounter for general adult medical examination with abnormal findings ICD-9: V70.0 ICD-10: Z00.01 03/28/2017 Active Trochanteric bursitis, right hip ICD-9: 726.5 ICD-10: M70.61 12/24/2017 Active Cellulitis of left lower limb ICD-9: 682.6 ICD-10: L03.116 07/02/2017 Active Other hypertrophic disorders of the skin ICD-9: 701.9 ICD-10: L91.8 07/02/2017 Active Sciatica Unknown 06/04/2017 Active Lumbago with sciatica, right side ICD-9: 724.3 ICD-10: M54.41 06/04/2017 Active Cough ICD-9: 786.2 ICD-10: R05 04/03/2017 Active Palpitations ICD-9: 785.1 ICD-10: R00.2 04/03/2017 Active Pain in right hip ICD-9: 719.45 ICD-10: M25.551 08/30/2016 Active Dysuria ICD-9: 788.1 ICD-10: R30.0 07/12/2016 Active Pain in left forearm ICD- 9: 729.5 ICD-10: M79.632 07/12/2016 Active Muscle spasm of back ICD- 9: 724.8 ICD-10: M62.830 06/20/2016 Active Myalgia ICD-9: 729.1 ICD-10: M79.1 06/20/2016 Active Pain in thoracic spine ICD-9: 724.1 ICD-10: M54.6 06/20/2016 Active URINARY FREQUENCY ICD-9: 788.41 05/17/2015 Active DYSURIA ICD-9: 788.1 05/08/2015 Active Diabetes mellitus type 2, uncontrolled ICD-9: 250.02 01/13/2014 Active Diabetic neuropathy ICD- 9: 250.60 04/19/2015 Active ESSENTIAL HYPERTENSION ICD-9: 401.9 04/19/2014 Active MORBID OBESITY ICD-9: 278.01 08/29/2011 Active Peripheral neuropathic pain ICD-9: 356.9 04/19/2015 Active Cerumen impaction ICD-9: 380.4 10/14/2012 Active DYSPHAGIA NEC ICD-9: 787.29 10/04/2014 Active Esophageal reflux ICD-9: 530.81 10/04/2014 Active DIABETES TYPE II ICD-9: 250.00 08/02/2014 Active Enlarged prostate ICD-9: 600.00 06/15/2014 Active BACKACHE ICD-9: 724.5 05/04/2014 Active Right hip pain ICD-9: 719.45 05/04/2014 Active Sacroiliitis ICD-9: 720.2 05/04/2014 Active Mild cognitive impairment ICD-9: 331.83 02/08/2014 Active Nightmares ICD-9: 307.47 02/08/2014 Active Sleep apnea ICD-9: 780.57 02/08/2014 Active Thumb pain ICD-9: 729.5 10/14/2013 Active Flat feet ICD-9: 734 07/01/2013 Active VACCIN FOR INFLUENZA ICD- 9: V04.81 07/01/2013 Active Dietary restriction ICD- 9: V65.3 03/04/2013 Active Tinnitus ICD-9: 388.30 10/14/2012 Active Bursitis of hip, right ICD-9: 726.5 09/25/2012 Active Immunization, pneumococcus and influenza ICD-9: V06.6 06/04/2012 Active Depression ICD-9: 311 04/09/2012 Active Cellulitis of face ICD- 9: 682.0 03/04/2012 Active Hyperlipidemia ICD-9: 272.4 10/31/2011 Active Anxiety Unknown 07/18/2011 Active Arthritis Unknown 07/18/2011 Active Depression Unknown 07/18/2011 Active Diabetes Unknown 07/18/2011 Active Hyperlipidemia Unknown 07/18/2011 Active Hypertension Unknown 07/18/2011 Active Macular degeneration Unknown 07/18/2011 Active Obesity Unknown 07/18/2011 Active Actinic keratosis ICD-9: 702.0 07/18/2011 Active Medications Medication Codes Instructions Start Date Stop Date Status Fill Instructions Voltaren 1 % topical gel RxNorm: 580455 4 Gram(s) TOP QID 01/13/2019 01/07/2020 Active [SAVINGS FOR NON-COVERED DRUGS -- BIN:[id number], PCN: ASPROD1, Group: XXXXX, ID# [id number], Questions: . THIS IS NOT INSURANCE.] finasteride 1 mg tablet RxNorm: 20010310 1 Tablet(s) PO daily 10/28/2018 01/20/2020 Active irbesartan 300 mg tablet RxNorm: 677390 1 Tablet(s) PO daily 10/28/2018 01/20/2020 Active lovastatin 20 mg tablet RxNorm: 510763 1 Tablet(s) PO QHS 10/28/2018 01/20/2020 Active metformin 1,000 mg tablet RxNorm: 392187 1 Tablet(s) PO BID 10/28/2018 01/20/2020 Active Toujeo SoloStar U-300 Insulin 300 unit/mL (1.5 mL) subcutaneous pen RxNorm: 0169899 30 Unit(s) SQ daily 10/09/2018 01/07/2019 Inactive 90 day supply needle (disp) 31 gauge x 5/16" RxNorm: 1 Miscellaneous TID 02/10/2018 01/07/2019 Inactive finasteride 1 mg tablet RxNorm: 129053 1 Tablet(s) PO daily 12/25/2017 12/24/2017 Inactive D/C dutasteride finasteride 1 mg tablet RxNorm: 407418 1 Tablet(s) PO daily 12/25/2017 10/27/2018 Inactive D/C dutasteride Novolin R Regular U-100 Insulin 100 unit/mL injection solution RxNorm: 832890 10 Unit(s) Inj QAM 12 units at lunch and 10 units at supper 11/25/2017 09/22/2018 Inactive amoxicillin 500 mg capsule RxNorm: 177072 1 Capsule(s) PO QID 11/21/2017 11/30/2017 Inactive naproxen 500 mg tablet RxNorm: 070586 1 Tablet(s) PO BID 11/21/2017 12/04/2017 Inactive Novolin R Regular U-100 Insulin 100 unit/mL injection solution RxNorm: 434415 8 10 Unit(s) Inj QAM 12 units at lunch and 10 units at supper 11/21/2017 11/24/2017 Inactive Insulin Syringe 0.3 mL 29 X 5/16" RxNorm: 1 injection SQ TID 10/01/2017 01/07/2019 Inactive Voltaren 1 % topical gel RxNorm: 699239 4 Gram(s) TOP QID 09/27/2017 12/20/2018 Inactive [SAVINGS FOR NON-COVERED DRUGS -- BIN:[id number], PCN: ASPROD1, Group: XXXXX, ID# [id number], Questions: . THIS IS NOT INSURANCE.] Trueresult Blood Glucose System RxNorm: 1 test Miscellaneous QID insulin dependent diabetes 09/27/2017 09/21/2018 Inactive Protonix 40 mg tablet,delayed release RxNorm: 398060 1 Tablet(s) PO daily 09/27/2017 12/20/2018 Inactive Toujeo SoloStar U-300 Insulin 300 unit/mL (1.5 mL) subcutaneous pen RxNorm: 3583356 45 Unit(s) SQ daily 09/27/2017 10/08/2018 Inactive 90 day supply lovastatin 20 mg tablet RxNorm: 219558 1 Tablet(s) PO QHS 09/27/2017 10/27/2018 Inactive Insulin Syringe 0.3 mL 29 X 5/16" RxNorm: 1 injection SQ BID 09/27/2017 09/30/2017 Inactive irbesartan 300 mg tablet RxNorm: 105733 1 Tablet(s) PO daily 09/27/2017 10/27/2018 Inactive Novolin R 100 unit/mL injection solution RxNorm: 307508 8 Unit(s) Inj QAM 10 units at lunch and 8 units at supper 09/27/2017 11/20/2017 Inactive dutasteride 0.5 mg capsule RxNorm: 766257 1 Capsule(s) PO daily 09/27/2017 12/24/2017 Inactive metformin 1,000 mg tablet RxNorm: 585241 1 Tablet(s) PO BID 09/27/2017 10/27/2018 Inactive magnesium oxide 400 mg tablet RxNorm: 109847 1 Tablet(s) PO daily 09/27/2017 12/20/2018 Inactive Voltaren 1 % topical gel RxNorm: 956756 4 Gram(s) TOP QID 07/23/2017 09/26/2017 Inactive [SAVINGS FOR NON-COVERED DRUGS -- BIN:[id number], PCN: ASPROD1, Group: XXXXX, ID# [id number], Questions: . THIS IS NOT INSURANCE.] Bactrim DS 800 mg-160 mg tablet RxNorm: 053986 1 Tablet(s) PO BID 07/02/2017 07/08/2017 Inactive Kenalog 40 mg/mL suspension for injection RxNorm: 4786379 1 Milliliter(s) Inj 06/04/2017 06/04/2017 Inactive Efudex 5 % topical cream RxNorm: 120781 1 TOP BID 12/05/2016 12/14/2016 Inactive Avapro 300 mg tablet RxNorm: 262084 Tablet(s) TAKE 1 TABLET BY MOUTH ONCE DAILY. 09/21/2016 09/15/2017 Inactive Toujeo SoloStar 300 unit/mL (1.5 mL) subcutaneous insulin pen RxNorm: 7544935 45 Unit(s) SQ daily 09/21/2016 09/15/2017 Inactive 90 day supply Novolin R 100 unit/mL injection solution RxNorm: 260425 8 Unit(s) Inj QAM 10 units at lunch and 8 units at supper 09/21/2016 09/15/2017 Inactive metformin 1,000 mg tablet RxNorm: 415992 Tablet(s) TAKE 1 TABLET BY MOUTH TWICE DAILY AFTER MEALS 09/21/2016 09/15/2017 Inactive lovastatin 20 mg tablet RxNorm: 620199 Tablet(s) TAKE ONE TABLET BY MOUTH ONCE DAILY. 09/21/2016 09/15/2017 Inactive dutasteride 0.5 mg capsule RxNorm: 289979 1 Capsule(s) PO daily 09/21/2016 09/15/2017 Inactive Toujeo SoloStar 300 unit/mL (1.5 mL) subcutaneous insulin pen RxNorm: 0935579 45 Unit(s) SQ daily 06/27/2016 09/20/2016 Inactive Kenalog 40 mg/mL suspension for injection RxNorm: 5050473 1 Milliliter(s) Inj 06/21/2016 06/21/2016 Inactive Toujeo SoloStar 300 unit/mL (1.5 mL) subcutaneous insulin pen RxNorm: 2782661 40 Unit(s) SQ daily 05/24/2016 06/26/2016 Inactive Novolin R 100 unit/mL injection solution RxNorm: 158529 8 Unit(s) Inj QAM 10 units at lunch and 8 units at supper 05/24/2016 09/20/2016 Inactive Bactrim DS 800 mg-160 mg tablet RxNorm: 441734 1 Tablet(s) PO BID 10/03/2015 01/31/2016 Inactive dutasteride 0.5 mg capsule RxNorm: 617826 1 Capsule(s) PO daily 09/26/2015 09/19/2016 Inactive dutasteride 0.5 mg capsule RxNorm: 143980 1 Capsule(s) PO daily 09/26/2015 09/25/2015 Inactive Avodart 0.5 mg capsule RxNorm: 797298 1 Capsule(s) PO QPM 09/21/2015 09/25/2015 Inactive Avapro 300 mg tablet RxNorm: 470867 Tablet(s) TAKE 1 TABLET BY MOUTH ONCE DAILY. 09/21/2015 09/14/2016 Inactive Generic For:AVAPRO 300MG 08/26/2015 9:53:42 AM lovastatin 20 mg tablet RxNorm: 402114 1 Tablet(s) TAKE ONE TABLET BY MOUTH ONCE DAILY. 09/21/2015 09/20/2016 Inactive Generic For:*MEVACOR 20MG 10/06/2014 12:16:37 PM Novolin R 100 unit/mL injection solution RxNorm: 194134 5 Unit(s) Inj QAM 8 units at lunch and 5 units at supper 09/21/2015 05/23/2016 Inactive metformin 1,000 mg tablet RxNorm: 240420 Tablet(s) TAKE 1 TABLET BY MOUTH TWICE DAILY AFTER MEALS 09/21/2015 09/20/2016 Inactive Generic For:*GLUCOPHAGE 1000MG 10/18/2014 5:26:11 PM Toujeo SoloStar 300 unit/mL (1.5 mL) subcutaneous insulin pen RxNorm: 3918572 60 Unit(s) SQ daily 09/21/2015 05/23/2016 Inactive 3 month supply DX 250.02 also needs pen needles to use daily dx 250.02 Novolin R 100 unit/mL injection solution RxNorm: 494676 5 Unit(s) Inj QAM 8 units at lunch and 5 units at supper 09/07/2015 09/20/2015 Inactive lovastatin 20 mg tablet RxNorm: 444986 Tablet(s) TAKE ONE TABLET BY MOUTH ONCE DAILY. 09/07/2015 09/20/2015 Inactive Generic For:*MEVACOR 20MG 10/06/2014 12:16:37 PM metformin 1,000 mg tablet RxNorm: 582395 Tablet(s) TAKE 1 TABLET BY MOUTH TWICE DAILY AFTER MEALS 09/07/2015 09/20/2015 Inactive Generic For:*GLUCOPHAGE 1000MG 10/18/2014 5:26:11 PM Toujeo SoloStar 300 unit/mL (1.5 mL) subcutaneous insulin pen RxNorm: 2118567 60 Unit(s) SQ daily 09/07/2015 09/20/2015 Inactive 3 month supply DX 250.02 also needs pen needles to use daily dx 250.02 Avapro 300 mg tablet RxNorm: 956960 TAKE 1 TABLET BY MOUTH ONCE DAILY. 08/26/2015 09/20/2015 Inactive Generic For:AVAPRO 300MG 08/26/2015 9:53:42 AM Avodart 0.5 mg capsule RxNorm: 789381 1 Capsule(s) PO QPM 08/17/2015 09/20/2015 Inactive Novolin R 100 unit/mL injection solution RxNorm: 507478 5 Unit(s) Inj QAM 8 units at lunch and 5 units at supper 08/17/2015 09/06/2015 Inactive Trueresult Blood Glucose System RxNorm: 1 test Miscellaneous QID insulin dependent diabetes 08/17/2015 08/10/2016 Inactive Avodart 0.5 mg capsule RxNorm: 977581 1 Capsule(s) PO QPM 08/14/2015 08/16/2015 Inactive Novolin R 100 unit/mL injection solution RxNorm: 120246 5 Unit(s) Inj TID with meals 07/20/2015 08/16/2015 Inactive Toujeo SoloStar 300 unit/mL (1.5 mL) subcutaneous insulin pen RxNorm: 0793149 60 Unit(s) SQ daily 07/20/2015 09/06/2015 Inactive one month supply DX 250.02 also needs pen needles to use daily dx 250.02 Bactrim DS 800 mg-160 mg tablet RxNorm: 130632 1 Tablet(s) PO BID 05/09/2015 05/15/2015 Inactive Bactrim DS 800 mg-160 mg tablet RxNorm: 543549 1 Tablet(s) PO BID 05/09/2015 05/08/2015 Inactive Bactrim DS 800 mg-160 mg tablet RxNorm: 062017 1 Tablet(s) PO BID 05/09/2015 05/08/2015 Inactive Toujeo SoloStar 300 unit/mL (1.5 mL) subcutaneous insulin pen RxNorm: 6600400 45u qdx3 days then 50u qdx 5 days then if fsbs >180 55u qd Unit(s) SQ daily 05/02/2015 07/19/2015 Inactive one month supply DX 250.02 also needs pen needles to use daily dx 250.02 Toujeo SoloStar 300 unit/mL (1.5 mL) subcutaneous insulin pen RxNorm: 3888327 45u qdx3 days then 50u qdx 5 days then if fsbs >180 55u qd Unit(s) SQ daily 05/02/2015 05/01/2015 Inactive one month supply DX 250.02 also needs pen needles to use daily dx 250.02 Belviq 10 mg tablet RxNorm: 0184331 1 Tablet(s) PO BID 04/20/2015 09/20/2015 Inactive Insulin Syringe 0.3 mL 29 X /16" RxNorm: 1 Miscellaneous BID 03/24/2015 04/16/2016 Inactive Lantus 100 unit/mL subcutaneous solution RxNorm: 903698 30 Unit(s) SQ BID 02/14/2015 05/01/2015 Inactive pt not ready for refill yet, when he is, please fill 25units bid Lantus 100 unit/mL subcutaneous solution RxNorm: 113186 28 Unit(s) SQ BID 11/11/2014 02/13/2015 Inactive pt not ready for refill yet, when he is, please fill 25units bid [SAVINGS FOR NON-COVERED DRUGS -- BIN:[id number], PCN: ASPROD1, Group: XXXXX, ID# [id number], Questions: . THIS IS NOT INSURANCE.] Voltaren 1 % topical gel RxNorm: 662407 4 Gram(s) TOP QID 11/11/2014 03/10/2015 Inactive [SAVINGS FOR NON-COVERED DRUGS -- BIN:092111, PCN: ASPROD1, Group: XXXXX, ID# [id number], Questions: . THIS IS NOT INSURANCE.] metformin 1,000 mg tablet RxNorm: 339213 TAKE 1 TABLET BY MOUTH TWICE DAILY AFTER MEALS 10/19/2014 09/06/2015 Inactive Generic For:*GLUCOPHAGE 1000MG 10/18/2014 5:26:11 PM metformin 1,000 mg tablet RxNorm: 055826 Tablet(s) TAKE 1 TABLET BY MOUTH TWICE DAILY AFTER MEALS 10/18/2014 10/18/2014 Inactive Generic For:*GLUCOPHAGE 1000MG 04/16/2014 9:02:30 AM lovastatin 20 mg tablet RxNorm: 520556 TAKE ONE TABLET BY MOUTH ONCE DAILY. 10/07/2014 09/06/2015 Inactive Generic For:*MEVACOR 20MG 10/06/2014 12:16:37 PM lovastatin 20 mg tablet RxNorm: 916695 1 Tablet(s) PO daily TAKE ONE (1) TABLET BY MOUTH DAILY 10/06/2014 10/06/2014 Inactive Generic For:MEVACOR 20 MG TABLET Generic For:MEVACOR 20 MG TABLET 08/14/2013 8:06:44 AM Carafate 1 gram tablet RxNorm: 838089 1 Tablet(s) PO QID dissolve in 10mL of fluid, drink liquid carafate four times daily before meals and before bed 10/04/2014 11/10/2014 Inactive may dispense generic Avapro 300 mg tablet RxNorm: 325567 TAKE 1 TABLET BY MOUTH ONCE DAILY. 08/26/2014 08/20/2015 Inactive Generic For:AVAPRO 300MG 08/26/2014 9:03:29 AM Avodart 0.5 mg capsule RxNorm: 160065 1 Capsule(s) PO QPM 08/02/2014 07/27/2015 Inactive meloxicam 15 mg tablet RxNorm: 641442 TAKE 1 TABLET BY MOUTH ONCE DAILY. 06/11/2014 11/10/2014 Inactive Generic For:MOBIC 15MG 06/11/2014 9:05:37 AM Kenalog 40 mg/mL suspension for injection RxNorm: 0072870 1 Milliliter(s) Inj 05/04/2014 05/04/2014 Inactive Lantus Solostar 100 unit/mL (3 mL) subcutaneous insulin pen RxNorm: 328550 25 Unit(s) SQ BID 04/19/2014 02/13/2015 Inactive Lantus 100 unit/mL subcutaneous solution RxNorm: 464494 25 Unit(s) SQ BID break up lantus to two shots daily of 22 units each shot 04/19/2014 11/10/2014 Inactive pt not ready for refill yet, when he is, please fill 25units bid metformin 1,000 mg tablet RxNorm: 422692 TAKE 1 TABLET BY MOUTH TWICE DAILY AFTER MEALS 04/16/2014 10/12/2014 Inactive Generic For:*GLUCOPHAGE 1000MG 04/16/2014 9:02:30 AM Insulin Syringe 0.3 mL 29 X 5/16" RxNorm: 1 Miscellaneous BID 03/15/2014 03/23/2015 Inactive Insulin Syringe 0.3 mL 29 X 5/16" RxNorm: 1 Miscellaneous BID 03/15/2014 03/14/2014 Inactive meloxicam 15 mg tablet RxNorm: 584405 TAKE 1 TABLET EVERY DAY 03/15/2014 06/10/2014 Inactive Generic For:MOBIC 15MG 03/15/2014 9:06:35 AM Lantus 100 unit/mL subcutaneous solution RxNorm: 486556 22 Unit(s) SQ BID break up lantus to two shots daily of 22 units each shot 01/14/2014 04/18/2014 Inactive metformin 1,000 mg tablet RxNorm: 327815 Tablet(s) PO TAKE 1 TABLET BY MOUTH TWICE DAILY AFTER MEALS 01/07/2014 04/15/2014 Inactive Generic For:*GLUCOPHAGE 1000MG Lantus 100 unit/mL subcutaneous solution RxNorm: 200205 25 Unit(s) SQ BID break up lantus to two shots daily of 25 units each shot 09/30/2013 09/29/2013 Inactive Lantus 100 unit/mL subcutaneous solution RxNorm: 791322 25 Unit(s) SQ BID break up lantus to two shots daily of 25 units each shot 09/30/2013 01/13/2014 Inactive metformin 1,000 mg tablet RxNorm: 560631 1 Tablet(s) PO BID TAKE 1 TABLET BY MOUTH TWICE DAILY AFTER MEALS 09/30/2013 12/28/2013 Inactive Generic For:GLUCOPHAGE 1000MG TAB Generic For:GLUCOPHAGE 1000MG TAB Avapro 300 mg tablet RxNorm: 051096 Tablet(s) PO TAKE ONE (1) TABLET BY MOUTH DAILY 08/28/2013 08/25/2014 Inactive Generic For:*AVAPRO 300MG TAB Generic For:*AVAPRO 300MG TAB 08/28/2013 8:53:42 AM lovastatin 20 mg tablet RxNorm: 481084 Tablet(s) PO TAKE ONE (1) TABLET BY MOUTH DAILY 08/14/2013 10/05/2014 Inactive Generic For:MEVACOR 20 MG TABLET Generic For:MEVACOR 20 MG TABLET 08/14/2013 8:06:44 AM metformin 1,000 mg tablet RxNorm: 638087 Tablet(s) PO TAKE 1 TABLET BY MOUTH TWICE DAILY AFTER MEALS 07/16/2013 09/29/2013 Inactive Generic For:GLUCOPHAGE 1000MG TAB Generic For:GLUCOPHAGE 1000MG TAB Influenza Virus Vaccine 0.5 mL RxNorm: IM 07/01/2013 07/01/2013 Inactive Contour Test Strips RxNorm: strip miscellaneous USE TO TEST BLOOD SUGAR THREE TIMES DAILY DIRECTED 06/29/2013 03/14/2014 Inactive metformin 1,000 mg tablet RxNorm: 589513 Tablet(s) PO TAKE 1 TABLET BY MOUTH TWICE DAILY AFTER MEALS 04/14/2013 07/15/2013 Inactive Generic For:GLUCOPHAGE 1000MG TAB meloxicam 15 mg tablet RxNorm: 874000 Tablet(s) PO TAKE ONE TABLET BY MOUTH EVERY DAY 03/21/2013 03/14/2014 Inactive Generic For:MOBIC 15MG TAB 03/19/2013 8:10:41 AM Lantus 100 unit/mL subcutaneous solution RxNorm: 743281 25 Unit(s) SQ BID break up lantus to two shots daily of 25 units each shot 03/04/2013 06/01/2013 Inactive Insulin Syringe 0.3 mL 29 X 5/16" RxNorm: 1 Unit Dose Miscellaneous BID 02/04/2013 01/07/2019 Inactive Lantus 100 unit/mL Sub-Q RxNorm: 834893 20 Unit(s) SQ BID break up lantus to two shots daily of 20units each shot 02/04/2013 03/03/2013 Inactive topiramate 25 mg tablet RxNorm: 624858 1 Tablet(s) PO daily 02/04/2013 04/08/2013 Inactive metformin 1,000 mg tablet RxNorm: 526089 Tablet(s) PO TAKE 1 TABLET BY MOUTH TWICE DAILY AFTER MEALS 01/15/2013 04/13/2013 Inactive Generic For:GLUCOPHAGE 1000MG TAB Lantus 100 unit/mL Sub-Q RxNorm: 917505 30 Unit(s) SQ QPM 12/03/2012 01/01/2013 Inactive Kenalog 40 mg/mL Susp for Injection RxNorm: 8323590 1 Milliliter(s) Inj 09/25/2012 09/25/2012 Inactive Lantus 100 unit/mL Sub-Q RxNorm: 510367 25 Unit(s) SQ QPM 09/12/2012 10/11/2012 Inactive Avapro 300 mg tablet RxNorm: 112892 Tablet(s) PO TAKE ONE (1) TABLET BY MOUTH DAILY 09/03/2012 09/02/2012 Inactive Generic For:AVAPRO 300MG TAB Avapro 300 mg tablet RxNorm: 051117 Tablet(s) PO TAKE ONE (1) TABLET BY MOUTH DAILY 09/03/2012 08/27/2013 Inactive Generic For:AVAPRO 300MG TAB Lantus 100 unit/mL Sub-Q RxNorm: 489688 20 Unit(s) SQ QPM 08/27/2012 09/11/2012 Inactive Avapro 300 mg tablet RxNorm: 405330 1 Tablet(s) PO daily 08/27/2012 09/02/2012 Inactive Lantus 100 unit/mL Sub-Q RxNorm: 884123 15 Unit(s) SQ QPM 08/07/2012 08/26/2012 Inactive metformin 1,000 mg tablet RxNorm: 377168 Tablet(s) PO 07/18/2012 01/14/2013 Inactive TAKE 1 TABLET BY MOUTH TWICE DAILY AFTER MEALS;Generic For:GLUCOPHAGE 1,000 MG TABLET Lantus 100 unit/mL Sub-Q RxNorm: 481568 13 Unit(s) SQ QPM 06/25/2012 07/24/2012 Inactive lovastatin 20 mg tablet RxNorm: 969254 Tablet(s) PO 06/20/2012 07/14/2013 Inactive TAKE 2 TABLETS BY MOUTH AT BEDTIME;Generic For:MEVACOR 20 MG TABLET Pneumovax 23 25 mcg/0.5 mL Injection RxNorm: 607104 Milliliter(s) Inj 06/04/2012 06/04/2012 Inactive Influenza Virus Vaccine 0.5 mL RxNorm: IM 06/04/2012 06/04/2012 Inactive Insulin Syringe 0.3 mL 29 X 5/16" RxNorm: 1 Unit Dose Miscellaneous daily 06/03/2012 12/29/2012 Inactive lovastatin 20 mg tablet RxNorm: 133035 Tablet(s) PO 05/14/2012 06/19/2012 Inactive TAKE 2 TABLETS BY MOUTH AT BEDTIME;Generic For:MEVACOR 20 MG TABLET Contour Test Strips RxNorm: Miscellaneous TID 04/25/2012 05/24/2012 Inactive lovastatin 20 mg tablet RxNorm: 767872 Tablet(s) PO 04/16/2012 05/13/2012 Inactive TAKE 2 TABLETS BY MOUTH AT BEDTIME;Generic For:MEVACOR 20 MG TABLET metformin 1,000 mg tablet RxNorm: 474068 Tablet(s) PO 04/16/2012 07/17/2012 Inactive TAKE 1 TABLET BY MOUTH TWICE DAILY AFTER MEALS;Generic For:GLUCOPHAGE 1,000 MG TABLET citalopram 20 mg tablet RxNorm: 178533 1 Tablet(s) PO daily 04/09/2012 09/23/2012 Inactive meloxicam 15 mg Tab RxNorm: 226164 1 Tablet(s) PO daily 2012 03/04/2012 Inactive meloxicam 15 mg Tab RxNorm: 184871 Tablet(s) PO 2012 07/19/2015 Inactive TAKE 1 TABLET BY MOUTH DAILY;Generic For:MOBIC 15MG TAB WC meloxicam 15 mg tablet RxNorm: 348320 1 Tablet(s) PO daily 2012 03/04/2012 Inactive Rocephin 500 mg Solution for Injection RxNorm: 3387465 Inj 03/04/2012 03/04/2012 Inactive sulfamethoxazole 800 mg-trimethoprim 160 mg tablet RxNorm: 164064 1 Tablet(s) PO BID 03/04/2012 03/13/2012 Inactive metoprolol succinate ER 25 mg 24 hr Tab RxNorm: 944911 1 Tablet(s) PO daily 12/03/2011 11/16/2014 Inactive Byetta 10 mcg/0.04 mL per dose Sub-Q Pen Injector RxNorm: 758747 10 Microgram(s) SQ BID 10 meq twice daily before the two largest meals of the day. 12/03/2011 06/03/2012 Inactive Plavix 75 mg Tab RxNorm: 578922 1 Tablet(s) PO daily 12/03/2011 11/16/2014 Inactive lovastatin 20 mg tablet RxNorm: 824183 2 Tablet(s) PO daily 11/12/2011 04/15/2012 Inactive TAKE 2 TABLETS BY MOUTH DAILY AT BEDTIME;Generic For:MEVACOR 20 MG TABLET N O T I C E Last dispense quantity was less than original quantity written Avapro 300 mg tablet RxNorm: 075410 1 Tablet(s) PO daily 08/28/2011 08/21/2012 Inactive metformin 1,000 mg Tab RxNorm: 178210 1 Tablet(s) PO BID 07/09/2011 07/02/2012 Inactive Victoza 0.6 mg/0.1 mL (18 mg/3 mL) Sub-Q Pen Injector RxNorm: 205152 1.8 Milligram(s) SQ daily 06/20/2011 03/04/2012 Inactive Fish Oil 1,000 mg capsule RxNorm: 1 Capsule(s) PO BID No Start Date Active Ocuvite oral RxNorm: 913767 oral No Start Date Active aspirin 81 mg Cap, Delayed Release RxNorm: 212460 1 Capsule(s) PO daily No Start Date Active Sinemet 25 mg-100 mg tablet RxNorm: 995564 1 Tablet(s) PO TID No Start Date Active multivitamin tablet RxNorm: oral No Start Date Active B Complex 1 oral RxNorm: 69942 oral No Start Date Active Protonix 40 mg tablet,delayed release RxNorm: 545799 1 Tablet(s) PO daily No Start Date 09/26/2017 Inactive Bydureon 2 mg SubQ Susp RxNorm: 4820795 1 SQ QW No Start Date 06/03/2012 Inactive Avapro 150 mg Tab RxNorm: 891561 1 Tablet(s) PO daily No Start Date 03/04/2012 Inactive Travatan Z 0.004 % Eye Drops RxNorm: 114242 1 Drop(s) OPH daily No Start Date 06/14/2014 Inactive Farxiga 5 mg tablet RxNorm: 8989122 1 Tablet(s) PO QAM No Start Date 01/07/2019 Inactive potassium gluconate 595 mg (99 mg) tablet RxNorm: 816649 1 Tablet(s) PO daily No Start Date 01/07/2019 Inactive metformin 1,000 mg tablet RxNorm: 865357 1 Tablet(s) PO BID No Start Date 03/04/2012 Inactive magnesium oxide 400 mg tablet RxNorm: 246193 Tablet(s) PO No Start Date 09/26/2017 Inactive Ativan 0.5 mg tablet RxNorm: 729543 1 Tablet(s) PO No Start Date 10/09/2013 Inactive 1 30 min prior to procedure meloxicam 15 mg Tab RxNorm: 804380 1 Tablet(s) PO daily No Start Date 03/04/2012 Inactive lovastatin 20 mg Tab RxNorm: 003111 2 Tablet(s) PO QHS No Start Date 11/12/2011 Inactive Pen Needle 31 x 3/16" RxNorm: Miscellaneous BID Pen [place] 31g/8mm BD to use for Byetta injection BID No Start Date 06/03/2012 Inactive Medication Administered Medication Codes Instructions Start Date Status Kenalog 40 mg/mL suspension for injection RxNorm: 6402832 1Milliliter 06/04/2017 No longer Active Kenalog 40 mg/mL suspension for injection RxNorm: 8193492 1Milliliter 06/21/2016 No longer Active Kenalog 40 mg/mL suspension for injection RxNorm: 4517396 1Milliliter 05/04/2014 No longer Active Influenza Virus Vaccine 0.5 mL RxNorm: 07/01/2013 No longer Active Kenalog 40 mg/mL Susp for Injection RxNorm: 2619887 1Milliliter 09/25/2012 No longer Active Influenza Virus Vaccine 0.5 mL RxNorm: 06/04/2012 No longer Active Pneumovax 23 25 mcg/0.5 mL Injection RxNorm: 546934 Milliliter 06/04/2012 No longer Active Rocephin 500 mg Solution for Injection RxNorm: 9247414 03/04/2012 No longer Active Immunizations Vaccine Codes Date Status Influenza CVX: 141 05/21/2018 completed Influenza CVX: 141 05/21/2018 completed Pneumococcal (Adult) CVX: 33 05/21/2018 completed Influenza CVX: 141 06/28/2017 completed Pneumococcal (Adult) CVX: 133 12/13/2016 completed Influenza CVX: 141 05/24/2016 completed Influenza CVX: 141 07/20/2015 completed Influenza CVX: 141 07/20/2015 completed PPD Unknown 02/28/2015 completed Influenza CVX: 141 06/03/2014 completed Influenza CVX: 141 07/01/2013 completed Influenza CVX: 141 07/01/2013 completed PPD Unknown 05/13/2013 completed Influenza CVX: 141 06/04/2012 completed Pneumococcal (Adult) CVX: 33 06/04/2012 completed Influenza CVX: 141 07/20/2011 completed Zoster CVX: 121 09/27/2010 completed Assessments Condition Codes Effective Dates Essential (primary) hypertension ICD-10: I10 ICD-9: 401.1 01/08/2019 Type 2 diabetes mellitus without complications ICD-10: E11.9 ICD-9: 250.00 01/08/2019 Morbid (severe) obesity due to excess calories ICD-10: E66.01 ICD-9: 278.01 01/08/2019 Mixed hyperlipidemia ICD-10: E78.2 ICD-9: 272.2 01/07/2019 Essential (primary) hypertension ICD-10: I10 ICD-9: 401.9 10/06/2018 Type 2 diabetes mellitus with hyperglycemia ICD-10: E11.65 ICD-9: 250.02 10/06/2018 Mixed hyperlipidemia ICD-10: E78.2 ICD-9: 272.4 10/06/2018 Low back pain ICD-10: M54.5 ICD-9: 724.2 07/07/2018 Type 2 diabetes mellitus with diabetic polyneuropathy ICD-10: E11.42 ICD-9: 250.60 07/03/2018 Encounter for immunization ICD-10: Z23 ICD-9: V04.81 05/21/2018 Encounter for gynecological examination (general) (routine) without abnormal findings ICD-10: Z01.419 ICD-9: V72.31 05/21/2018 Other obesity due to excess calories ICD-10: E66.09 ICD-9: 278.00 03/06/2018 Essential tremor ICD-10: G25.0 ICD-9: 333.1 03/06/2018 Trochanteric bursitis, right hip ICD-10: M70.61 ICD-9: 726.5 12/24/2017 Encounter for general adult medical examination with abnormal findings ICD-10: Z00.01 ICD-9: V70.0 12/24/2017 Arthralgia of bilateral temporomandibular joint ICD-10: M26.623 ICD-9: 524.62 11/21/2017 Other hypertrophic disorders of the skin ICD-10: L91.8 ICD-9: 701.9 07/02/2017 Cellulitis of left lower limb ICD-10: L03.116 ICD-9: 682.6 07/02/2017 Lumbago with sciatica, right side ICD-10: M54.41 ICD-9: 724.3 06/04/2017 Palpitations ICD-10: R00.2 ICD-9: 785.1 04/03/2017 Cough ICD-10: R05 ICD-9: 786.2 04/03/2017 Pain in right hip ICD-10: M25.551 ICD-9: 719.45 08/30/2016 Dysuria ICD-10: R30.0 ICD-9: 788.1 07/13/2016 Pain in left forearm ICD-10: M79.632 ICD-9: 729.5 07/13/2016 Muscle spasm of back ICD-10: M62.830 ICD-9: 724.8 06/21/2016 Pain in thoracic spine ICD-10: M54.6 ICD-9: 724.1 06/21/2016 Myalgia ICD-10: M79.1 ICD-9: 729.1 06/21/2016 Dorsalgia, unspecified ICD-10: M54.9 ICD-9: 724.5 01/24/2016 URINARY FREQUENCY ICD-9: 788.41 05/18/2015 DYSURIA ICD-9: 788.1 05/09/2015 MORBID OBESITY ICD-9: 278.01 04/20/2015 Peripheral neuropathic pain ICD-9: 356.9 04/20/2015 Diabetic neuropathy ICD-9: 250.60 04/20/2015 ESSENTIAL HYPERTENSION ICD-9: 401.9 04/20/2015 Diabetes mellitus type 2, uncontrolled ICD-9: 250.02 04/20/2015 Cerumen impaction ICD-9: 380.4 02/28/2015 Esophageal reflux ICD-9: 530.81 10/04/2014 DIABETES TYPE II ICD-9: 250.00 10/04/2014 DYSPHAGIA NEC ICD-9: 787.29 10/04/2014 BPH (benign prostatic hyperplasia) ICD-9: 600.00 08/02/2014 Right hip pain ICD-9: 719.45 05/04/2014 Sacroiliitis ICD-9: 720.2 05/04/2014 BACKACHE ICD-9: 724.5 05/04/2014 Sleep apnea ICD-9: 780.57 02/08/2014 Mild cognitive impairment ICD-9: 331.83 02/08/2014 Nightmares ICD-9: 307.47 02/08/2014 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 10/14/2013 Thumb pain ICD-9: 729.5 10/14/2013 Flat feet ICD-9: 734 07/01/2013 VACCIN FOR INFLUENZA ICD-9: V04.81 07/01/2013 ENTHESOPATHY OF HIP ICD-9: 726.5 02/04/2013 Tinnitus ICD-9: 388.30 10/14/2012 Immunization, pneumococcus and influenza ICD-9: V06.6 06/04/2012 Depression ICD-9: 311 04/09/2012 Cellulitis of face ICD-9: 682.0 03/04/2012 Hyperlipidemia ICD-9: 272.4 10/31/2011 ACTINIC KERATOSIS ICD-9: 702.0 07/24/2011 Reason For Visit Reason For Visit Effective Dates Notes diabetes mellitus 01/08/2019 diabetes mellitus 10/09/2018 diabetes mellitus 07/07/2018 diabetes mellitus 05/21/2018 diabetes mellitus 03/06/2018 Annual Medicare Wellness Exam 12/24/2017 diabetes mellitus 11/21/2017 diabetes mellitus 07/29/2017 skin lesion 07/02/2017 vaccination against influenza 06/28/2017 back pain 06/04/2017 diabetes mellitus 04/03/2017 Annual Medicare Wellness Exam 12/13/2016 diabetes mellitus 12/05/2016 diabetes mellitus 08/30/2016 on the left outer ear urinary incontinence 07/13/2016 back pain 06/21/2016 diabetes mellitus 05/24/2016 back pain 01/24/2016 back pain 10/27/2015 paresthesia 09/21/2015 paresthesia 08/17/2015 paresthesia 07/20/2015 paresthesia 04/20/2015 cerumen 02/28/2015 hypertension 02/14/2015 hypertension 11/11/2014 hypertension 10/04/2014 ~generic 08/02/2014 redness around both eyes. Eye doctor told him redness has something to do with skin. Had cataract surgery and not healing as fast as doctor would like. Is putting eye drops in eyes. He says there is 4 drops in right and 2 drops in left, but is not sure name of med. _ 06/15/2014 vaccination against influenza 06/03/2014 hip pain 05/04/2014 right hypertension 04/19/2014 hypertension 02/08/2014 hypertension 01/13/2014 diabetes mellitus 10/14/2013 diabetes mellitus 07/01/2013 diabetes mellitus 03/04/2013 diabetes mellitus 02/04/2013 diabetes mellitus 12/03/2012 tinnitus 10/14/2012 hip pain 09/29/2012 hip pain 09/25/2012 hypertension 08/27/2012 diabetes mellitus 06/25/2012 vaccination against influenza 06/04/2012 diabetes mellitus 06/03/2012 back pain 04/24/2012 back pain 04/09/2012 diabetes mellitus 03/04/2012 diabetes mellitus 12/03/2011 diabetes mellitus 10/31/2011 hypertension 08/29/2011 actinic keratosis 07/24/2011 hypertension 07/18/2011 Results Observation Observation Code Item Item Code Result Date Lipid Ord30 CHOL 147 mg/dL 01/07/2019 Lipid Ord30 HDL 47.0 mg/dl 01/07/2019 Lipid Ord30 TRIG 175 mg/dL 01/07/2019 Lipid Ord30 LDL 65 mg/dL 01/07/2019 Lipid Ord30 C/HDL 3.1 Ratio 01/07/2019 Comp Metabolic Qtm846 NA 142 mEq/L 01/07/2019 Comp Metabolic Drj283 K 4.3 mEq/L 01/07/2019 Comp Metabolic Qfa823 CL 104 mEq/L 01/07/2019 Comp Metabolic Rkn016 CO2 28.0 mEq/L 01/07/2019 Comp Metabolic Zao088 ANION GAP 14 01/07/2019 Comp Metabolic Eul040 GLUCOSE 118 mg/dL 01/07/2019 Comp Metabolic Kim199 Creat 1.0 mg/dL 01/07/2019 Comp Metabolic Eec316 eGFR 82 ml/min/1.73m2 01/07/2019 Comp Metabolic Rrz076 BUN 22 mg/dL 01/07/2019 Comp Metabolic Wmt729 B/C Ratio 23.2 Ratio 01/07/2019 Comp Metabolic Plm877 CALCIUM 9.9 mg/dL 01/07/2019 Comp Metabolic Mxk300 ALK PHOS 41 U/L 01/07/2019 Comp Metabolic Jtn826 AST(SGOT) 23 U/L 01/07/2019 Comp Metabolic Cdx125 ALT(SGPT) 24 U/L 01/07/2019 Comp Metabolic Pyr390 BILI T 0.8 mg/dL 01/07/2019 Comp Metabolic Gxq543 ALBUMIN 4.3 g/dL 01/07/2019 Comp Metabolic Gui823 TPRO 6.7 g/dL 01/07/2019 Comp Metabolic Poj150 GLOB 2.4 g/dL 01/07/2019 Comp Metabolic Kwm814 A/G Ratio 1.8 Ratio 01/07/2019 Comp Metabolic Dtu556 Osmo 288 mOsmo 01/07/2019 Tsh Ord6 TSH (3rd IS) 3.27 uIU/mL 01/07/2019 %Hba1C Oca495 % HbA1c 59033- 6 5.9 % 01/07/2019 %Hba1C Kut151 Gluc Ave 123 mg/dL 01/07/2019 Cbc With Differential Ord2 WBC 6.25 K/ul 01/07/2019 Cbc With Differential Ord2 RBC 3.94 M/ul 01/07/2019 Cbc With Differential Ord2 HGB 12.3 g/dl 01/07/2019 Cbc With Differential Ord2 HCT 36.6 % 01/07/2019 Cbc With Differential Ord2 Neut% 49.9 % 01/07/2019 Cbc With Differential Ord2 MCV 92.9 fl 01/07/2019 Cbc With Differential Ord2 Lymph% 31.4 % 01/07/2019 Cbc With Differential Ord2 MCH 31.2 pg 01/07/2019 Cbc With Differential Ord2 Weld% 11.5 % 01/07/2019 Cbc With Differential Ord2 MCHC 33.6 pg 01/07/2019 Cbc With Differential Ord2 Eos% 6.1 % 01/07/2019 Cbc With Differential Ord2 PLT 259 K/ul 01/07/2019 Cbc With Differential Ord2 Baso% 1.1 % 01/07/2019 Cbc With Differential Ord2 RDW 15.0 % 01/07/2019 Cbc With Differential Ord2 Neut ABS# 3.12 K/ul 01/07/2019 Cbc With Differential Ord2 Lymph ABS# 1.96 K/ul 01/07/2019 Cbc With Differential Ord2 Weld ABS# 0.7 K/ul 01/07/2019 Cbc With Differential Ord2 Eos ABS# 0.4 K/ul 01/07/2019 Cbc With Differential Ord2 Baso ABS# 0.1 K/ul 01/07/2019 Cbc With Differential Ord2 WBC 5.40 K/ul 10/08/2018 Cbc With Differential Ord2 RBC 4.27 M/ul 10/08/2018 Cbc With Differential Ord2 HGB 13.0 g/dl 10/08/2018 Cbc With Differential Ord2 HCT 38.5 % 10/08/2018 Cbc With Differential Ord2 Neut% 51.9 % 10/08/2018 Cbc With Differential Ord2 MCV 90.2 fl 10/08/2018 Cbc With Differential Ord2 Lymph% 31.9 % 10/08/2018 Cbc With Differential Ord2 MCH 30.4 pg 10/08/2018 Cbc With Differential Ord2 Weld% 11.1 % 10/08/2018 Cbc With Differential Ord2 MCHC 33.8 pg 10/08/2018 Cbc With Differential Ord2 Eos% 4.4 % 10/08/2018 Cbc With Differential Ord2 PLT 271 K/ul 10/08/2018 Cbc With Differential Ord2 Baso% 0.7 % 10/08/2018 Cbc With Differential Ord2 RDW 14.3 % 10/08/2018 Cbc With Differential Ord2 Neut ABS# 2.80 K/ul 10/08/2018 Cbc With Differential Ord2 Lymph ABS# 1.72 K/ul 10/08/2018 Cbc With Differential Ord2 Weld ABS# 0.6 K/ul 10/08/2018 Cbc With Differential Ord2 Eos ABS# 0.2 K/ul 10/08/2018 Cbc With Differential Ord2 Baso ABS# 0.0 K/ul 10/08/2018 %Hba1C Kiw434 % HbA1c 97194- 6 7.2 % 10/08/2018 %Hba1C Htm749 Gluc Ave 160 mg/dL 10/08/2018 Comp Metabolic Xfa839 NA 143 mEq/L 10/08/2018 Comp Metabolic Rir046 K 4.4 mEq/L 10/08/2018 Comp Metabolic Oor169 CL 105 mEq/L 10/08/2018 Comp Metabolic Ugk455 CO2 28.0 mEq/L 10/08/2018 Comp Metabolic Uac766 ANION GAP 14 10/08/2018 Comp Metabolic Zbp657 GLUCOSE 127 mg/dL 10/08/2018 Comp Metabolic Dvm332 Creat 1.1 mg/dL 10/08/2018 Comp Metabolic Fwf016 eGFR 72 ml/min/1.73m2 10/08/2018 Comp Metabolic Kdm926 BUN 18 mg/dL 10/08/2018 Comp Metabolic Umq219 B/C Ratio 17.0 Ratio 10/08/2018 Comp Metabolic Ldy535 CALCIUM 9.8 mg/dL 10/08/2018 Comp Metabolic Wws172 ALK PHOS 50 U/L 10/08/2018 Comp Metabolic Jll154 AST(SGOT) 37 U/L 10/08/2018 Comp Metabolic Qth596 ALT(SGPT) 37 U/L 10/08/2018 Comp Metabolic Hhj427 BILI T 0.8 mg/dL 10/08/2018 Comp Metabolic Exg198 ALBUMIN 4.4 g/dL 10/08/2018 Comp Metabolic Wck724 TPRO 7.1 g/dL 10/08/2018 Comp Metabolic Fze316 GLOB 2.7 g/dL 10/08/2018 Comp Metabolic Dhg747 A/G Ratio 1.6 Ratio 10/08/2018 Comp Metabolic Jhz128 Osmo 288 mOsmo 10/08/2018 Lipid Ord30 CHOL 150 mg/dL 10/08/2018 Lipid Ord30 HDL 45.0 mg/dl 10/08/2018 Lipid Ord30 TRIG 190 mg/dL 10/08/2018 Lipid Ord30 LDL 67 mg/dL 10/08/2018 Lipid Ord30 C/HDL 3.3 Ratio 10/08/2018 Tsh Ord6 TSH (3rd IS) 1.80 uIU/mL 10/08/2018 %Hba1C Miy514 % HbA1c 79174- 6 7.6 % 07/04/2018 %Hba1C Lsa923 Gluc Ave 171 mg/dL 07/04/2018 Comp Metabolic Glh875 NA 140 mEq/L 07/04/2018 Comp Metabolic Nna081 K 4.5 mEq/L 07/04/2018 Comp Metabolic Hir769 CL 104 mEq/L 07/04/2018 Comp Metabolic Jhq917 CO2 28.0 mEq/L 07/04/2018 Comp Metabolic Mhb486 ANION GAP 13 07/04/2018 Comp Metabolic Szb460 GLUCOSE 211 mg/dL 07/04/2018 Comp Metabolic Cre871 Creat 0.9 mg/dL 07/04/2018 Comp Metabolic Xxv165 eGFR 85 ml/min/1.73m2 07/04/2018 Comp Metabolic Llo019 BUN 20 mg/dL 07/04/2018 Comp Metabolic Zpa184 B/C Ratio 21.7 Ratio 07/04/2018 Comp Metabolic Hav367 CALCIUM 9.5 mg/dL 07/04/2018 Comp Metabolic Eqh651 ALK PHOS 46 U/L 07/04/2018 Comp Metabolic Kou309 AST(SGOT) 26 U/L 07/04/2018 Comp Metabolic Nic899 ALT(SGPT) 29 U/L 07/04/2018 Comp Metabolic Rea287 BILI T 0.6 mg/dL 07/04/2018 Comp Metabolic Yjz872 ALBUMIN 4.2 g/dL 07/04/2018 Comp Metabolic Fdb782 TPRO 6.8 g/dL 07/04/2018 Comp Metabolic Izb996 GLOB 2.6 g/dL 07/04/2018 Comp Metabolic Yrb774 A/G Ratio 1.6 Ratio 07/04/2018 Comp Metabolic Npm442 Osmo 288 mOsmo 07/04/2018 Tsh Ord6 TSH (3rd IS) 2.82 uIU/mL 07/04/2018 Cbc With Differential Ord2 WBC 6.97 K/ul 07/04/2018 Cbc With Differential Ord2 RBC 4.03 M/ul 07/04/2018 Cbc With Differential Ord2 HGB 12.5 g/dl 07/04/2018 Cbc With Differential Ord2 HCT 37.0 % 07/04/2018 Cbc With Differential Ord2 Neut% 55.3 % 07/04/2018 Cbc With Differential Ord2 MCV 91.8 fl 07/04/2018 Cbc With Differential Ord2 Lymph% 26.7 % 07/04/2018 Cbc With Differential Ord2 MCH 31.0 pg 07/04/2018 Cbc With Differential Ord2 Weld% 12.9 % 07/04/2018 Cbc With Differential Ord2 MCHC 33.8 pg 07/04/2018 Cbc With Differential Ord2 Eos% 4.0 % 07/04/2018 Cbc With Differential Ord2 PLT 239 K/ul 07/04/2018 Cbc With Differential Ord2 Baso% 1.1 % 07/04/2018 Cbc With Differential Ord2 RDW 14.4 % 07/04/2018 Cbc With Differential Ord2 Neut ABS# 3.85 K/ul 07/04/2018 Cbc With Differential Ord2 Lymph ABS# 1.86 K/ul 07/04/2018 Cbc With Differential Ord2 Weld ABS# 0.9 K/ul 07/04/2018 Cbc With Differential Ord2 Eos ABS# 0.3 K/ul 07/04/2018 Cbc With Differential Ord2 Baso ABS# 0.1 K/ul 07/04/2018 Lipid Ord30 CHOL 159 mg/dL 07/04/2018 Lipid Ord30 HDL 45.0 mg/dl 07/04/2018 Lipid Ord30 TRIG 244 mg/dL 07/04/2018 Lipid Ord30 LDL 65 mg/dL 07/04/2018 Lipid Ord30 C/HDL 3.5 Ratio 07/04/2018 %Hba1C Wqp579 % HbA1c 77159- 6 8.0 % 03/06/2018 %Hba1C Hdb713 Gluc Ave 183 mg/dL 03/06/2018 Lipid Ord30 CHOL 180 mg/dL 03/04/2018 Lipid Ord30 HDL 49.0 mg/dl 03/04/2018 Lipid Ord30 TRIG 277 mg/dL 03/04/2018 Lipid Ord30 LDL 76 mg/dL 03/04/2018 Lipid Ord30 C/HDL 3.7 Ratio 03/04/2018 Tsh Ord6 TSH (3rd IS) 3.62 uIU/mL 03/04/2018 Cbc With Differential Ord2 WBC 6.64 K/ul 03/04/2018 Cbc With Differential Ord2 RBC 4.34 M/ul 03/04/2018 Cbc With Differential Ord2 HGB 13.1 g/dl 03/04/2018 Cbc With Differential Ord2 HCT 39.4 % 03/04/2018 Cbc With Differential Ord2 Neut% 54.3 % 03/04/2018 Cbc With Differential Ord2 MCV 90.8 fl 03/04/2018 Cbc With Differential Ord2 Lymph% 29.1 % 03/04/2018 Cbc With Differential Ord2 MCH 30.2 pg 03/04/2018 Cbc With Differential Ord2 Weld% 12.2 % 03/04/2018 Cbc With Differential Ord2 MCHC 33.2 pg 03/04/2018 Cbc With Differential Ord2 Eos% 3.3 % 03/04/2018 Cbc With Differential Ord2 PLT 237 K/ul 03/04/2018 Cbc With Differential Ord2 Baso% 1.1 % 03/04/2018 Cbc With Differential Ord2 RDW 14.4 % 03/04/2018 Cbc With Differential Ord2 Neut ABS# 3.61 K/ul 03/04/2018 Cbc With Differential Ord2 Lymph ABS# 1.93 K/ul 03/04/2018 Cbc With Differential Ord2 Weld ABS# 0.8 K/ul 03/04/2018 Cbc With Differential Ord2 Eos ABS# 0.2 K/ul 03/04/2018 Cbc With Differential Ord2 Baso ABS# 0.1 K/ul 03/04/2018 Comp Metabolic Ims966 NA 139 mEq/L 03/04/2018 Comp Metabolic Qyg452 K 4.5 mEq/L 03/04/2018 Comp Metabolic Vbm803 CL 102 mEq/L 03/04/2018 Comp Metabolic Hib184 CO2 28.0 mEq/L 03/04/2018 Comp Metabolic Eex946 ANION GAP 14 03/04/2018 Comp Metabolic Ohw601 GLUCOSE 201 mg/dL 03/04/2018 Comp Metabolic Gjc599 Creat 1.0 mg/dL 03/04/2018 Comp Metabolic Tgp180 eGFR 78 ml/min/1.73m2 03/04/2018 Comp Metabolic Tge806 BUN 18 mg/dL 03/04/2018 Comp Metabolic Dpp994 B/C Ratio 18.0 Ratio 03/04/2018 Comp Metabolic Jay783 CALCIUM 9.4 mg/dL 03/04/2018 Comp Metabolic Nxl590 ALK PHOS 40 U/L 03/04/2018 Comp Metabolic Pyd588 AST(SGOT) 21 U/L 03/04/2018 Comp Metabolic Ugu397 ALT(SGPT) 27 U/L 03/04/2018 Comp Metabolic Nyv243 BILI T 0.6 mg/dL 03/04/2018 Comp Metabolic Bgh480 ALBUMIN 4.1 g/dL 03/04/2018 Comp Metabolic Lrb931 TPRO 6.7 g/dL 03/04/2018 Comp Metabolic Sdu522 GLOB 2.7 g/dL 03/04/2018 Comp Metabolic Ith526 A/G Ratio 1.5 Ratio 03/04/2018 Comp Metabolic Tbg599 Osmo 285 mOsmo 03/04/2018 Lipid Ord30 CHOL 171 mg/dL 11/20/2017 Lipid Ord30 HDL 52.0 mg/dl 11/20/2017 Lipid Ord30 TRIG 248 mg/dL 11/20/2017 Lipid Ord30 LDL 69 mg/dL 11/20/2017 Lipid Ord30 C/HDL 3.3 Ratio 11/20/2017 %Hba1C Tvn514 % HbA1c 33887- 6 7.7 % 11/20/2017 %Hba1C Cvq054 Gluc Ave 174 mg/dL 11/20/2017 Comp Metabolic Wlt454 NA 140 mEq/L 11/20/2017 Comp Metabolic Ska849 K 4.3 mEq/L 11/20/2017 Comp Metabolic Met403 CL 103 mEq/L 11/20/2017 Comp Metabolic Pyt017 CO2 27.0 mEq/L 11/20/2017 Comp Metabolic Xht324 ANION GAP 14 11/20/2017 Comp Metabolic Xra134 GLUCOSE 151 mg/dL 11/20/2017 Comp Metabolic Skz052 Creat 0.9 mg/dL 11/20/2017 Comp Metabolic Uur482 eGFR 87 ml/min/1.73m2 11/20/2017 Comp Metabolic Bdy941 BUN 25 mg/dL 11/20/2017 Comp Metabolic Rtq955 B/C Ratio 27.5 Ratio 11/20/2017 Comp Metabolic Tvl067 CALCIUM 9.7 mg/dL 11/20/2017 Comp Metabolic Uhs858 ALK PHOS 49 U/L 11/20/2017 Comp Metabolic Mni287 AST(SGOT) 25 U/L 11/20/2017 Comp Metabolic Kfh427 ALT(SGPT) 24 U/L 11/20/2017 Comp Metabolic Fnn544 BILI T 0.6 mg/dL 11/20/2017 Comp Metabolic Dow866 ALBUMIN 4.2 g/dL 11/20/2017 Comp Metabolic Tyq568 TPRO 6.6 g/dL 11/20/2017 Comp Metabolic Crg467 GLOB 2.4 g/dL 11/20/2017 Comp Metabolic Mgj934 A/G Ratio 1.8 Ratio 11/20/2017 Comp Metabolic Axr477 Osmo 287 mOsmo 11/20/2017 Cbc With Differential Ord2 WBC 6.62 K/ul 07/25/2017 Cbc With Differential Ord2 RBC 4.03 M/ul 07/25/2017 Cbc With Differential Ord2 HGB 12.5 g/dl 07/25/2017 Cbc With Differential Ord2 HCT 37.3 % 07/25/2017 Cbc With Differential Ord2 Neut% 54.6 % 07/25/2017 Cbc With Differential Ord2 MCV 92.6 fl 07/25/2017 Cbc With Differential Ord2 Lymph% 28.5 % 07/25/2017 Cbc With Differential Ord2 MCH 31.0 pg 07/25/2017 Cbc With Differential Ord2 Weld% 13.3 % 07/25/2017 Cbc With Differential Ord2 MCHC 33.5 pg 07/25/2017 Cbc With Differential Ord2 Eos% 2.7 % 07/25/2017 Cbc With Differential Ord2 PLT 239 K/ul 07/25/2017 Cbc With Differential Ord2 Baso% 0.9 % 07/25/2017 Cbc With Differential Ord2 RDW 14.9 % 07/25/2017 Cbc With Differential Ord2 Neut ABS# 3.61 K/ul 07/25/2017 Cbc With Differential Ord2 Lymph ABS# 1.89 K/ul 07/25/2017 Cbc With Differential Ord2 Weld ABS# 0.9 K/ul 07/25/2017 Cbc With Differential Ord2 Eos ABS# 0.2 K/ul 07/25/2017 Cbc With Differential Ord2 Baso ABS# 0.1 K/ul 07/25/2017 Comp Metabolic Xpw678 NA 140 mEq/L 07/25/2017 Comp Metabolic Mib855 K 4.7 mEq/L 07/25/2017 Comp Metabolic Gtt601 CL 102 mEq/L 07/25/2017 Comp Metabolic Cjc464 CO2 30.0 mEq/L 07/25/2017 Comp Metabolic Rzx856 ANION GAP 13 07/25/2017 Comp Metabolic Anh167 GLUCOSE 178 mg/dL 07/25/2017 Comp Metabolic Qmx898 Creat 1.0 mg/dL 07/25/2017 Comp Metabolic Sas784 eGFR 75 ml/min/1.73m2 07/25/2017 Comp Metabolic Guy125 BUN 23 mg/dL 07/25/2017 Comp Metabolic Nlv703 B/C Ratio 22.3 Ratio 07/25/2017 Comp Metabolic Jqo617 CALCIUM 9.7 mg/dL 07/25/2017 Comp Metabolic Tba910 ALK PHOS 40 U/L 07/25/2017 Comp Metabolic Fws403 AST(SGOT) 22 U/L 07/25/2017 Comp Metabolic Vod771 ALT(SGPT) 25 U/L 07/25/2017 Comp Metabolic Mbe890 BILI T 0.7 mg/dL 07/25/2017 Comp Metabolic Bps418 ALBUMIN 4.0 g/dL 07/25/2017 Comp Metabolic Mvh151 TPRO 6.7 g/dL 07/25/2017 Comp Metabolic Xee689 GLOB 2.7 g/dL 07/25/2017 Comp Metabolic Cgc743 A/G Ratio 1.5 Ratio 07/25/2017 Comp Metabolic Lrk646 Osmo 288 mOsmo 07/25/2017 %Hba1C Tue687 % HbA1c 82288- 6 7.1 % 07/25/2017 %Hba1C Qlh162 Gluc Ave 157 mg/dL 07/25/2017 Lipid Ord30 CHOL 164 mg/dL 07/25/2017 Lipid Ord30 HDL 49.0 mg/dl 07/25/2017 Lipid Ord30 TRIG 266 mg/dL 07/25/2017 Lipid Ord30 LDL 62 mg/dL 07/25/2017 Lipid Ord30 C/HDL 3.3 Ratio 07/25/2017 Comp Metabolic Goo878 NA 140 mEq/L 04/02/2017 Comp Metabolic Oly761 K 4.4 mEq/L 04/02/2017 Comp Metabolic Eww392 CL 103 mEq/L 04/02/2017 Comp Metabolic Myd765 CO2 27.0 mEq/L 04/02/2017 Comp Metabolic Rtf078 ANION GAP 14 04/02/2017 Comp Metabolic Jsc034 GLUCOSE 182 mg/dL 04/02/2017 Comp Metabolic Uvp175 Creat 1.1 mg/dL 04/02/2017 Comp Metabolic Rhh990 eGFR 73 ml/min/1.73m2 04/02/2017 Comp Metabolic Jvj313 BUN 26 mg/dL 04/02/2017 Comp Metabolic Dhv791 B/C Ratio 24.5 Ratio 04/02/2017 Comp Metabolic Xsn819 CALCIUM 9.4 mg/dL 04/02/2017 Comp Metabolic Uwt875 ALK PHOS 43 U/L 04/02/2017 Comp Metabolic Zou222 AST(SGOT) 19 U/L 04/02/2017 Comp Metabolic Ywd999 ALT(SGPT) 20 U/L 04/02/2017 Comp Metabolic Nhs978 BILI T 0.7 mg/dL 04/02/2017 Comp Metabolic Xod844 ALBUMIN 4.0 g/dL 04/02/2017 Comp Metabolic Bta271 TPRO 6.6 g/dL 04/02/2017 Comp Metabolic Rht719 GLOB 2.6 g/dL 04/02/2017 Comp Metabolic Oaz958 A/G Ratio 1.6 Ratio 04/02/2017 Comp Metabolic Slf303 Osmo 289 mOsmo 04/02/2017 %Hba1C Wao881 % HbA1c 70986- 6 7.9 % 04/02/2017 %Hba1C Hdk660 Gluc Ave 180 mg/dL 04/02/2017 Cbc With Differential Ord2 WBC 7.39 K/ul 04/02/2017 Cbc With Differential Ord2 RBC 4.08 M/ul 04/02/2017 Cbc With Differential Ord2 HGB 12.5 g/dl 04/02/2017 Cbc With Differential Ord2 HCT 37.3 % 04/02/2017 Cbc With Differential Ord2 Neut% 54.4 % 04/02/2017 Cbc With Differential Ord2 MCV 91.4 fl 04/02/2017 Cbc With Differential Ord2 Lymph% 29.9 % 04/02/2017 Cbc With Differential Ord2 MCH 30.6 pg 04/02/2017 Cbc With Differential Ord2 Weld% 11.5 % 04/02/2017 Cbc With Differential Ord2 MCHC 33.5 pg 04/02/2017 Cbc With Differential Ord2 Eos% 3.4 % 04/02/2017 Cbc With Differential Ord2 PLT 253 K/ul 04/02/2017 Cbc With Differential Ord2 Baso% 0.8 % 04/02/2017 Cbc With Differential Ord2 RDW 14.4 % 04/02/2017 Cbc With Differential Ord2 Neut ABS# 4.02 K/ul 04/02/2017 Cbc With Differential Ord2 Lymph ABS# 2.21 K/ul 04/02/2017 Cbc With Differential Ord2 Weld ABS# 0.9 K/ul 04/02/2017 Cbc With Differential Ord2 Eos ABS# 0.3 K/ul 04/02/2017 Cbc With Differential Ord2 Baso ABS# 0.1 K/ul 04/02/2017 Lipid Ord30 CHOL 163 mg/dL 04/02/2017 Lipid Ord30 HDL 46.0 mg/dl 04/02/2017 Lipid Ord30 TRIG 326 mg/dL 04/02/2017 Lipid Ord30 LDL Unable to calculate Due to elevated triglycerides mg/dL 04/02/2017 Lipid Ord30 C/HDL 3.5 Ratio 04/02/2017 Tsh Ord6 hTSH II 3.11 uIU/mL 04/02/2017 Cbc With Differential Ord2 WBC 7.09 K/ul 12/04/2016 Cbc With Differential Ord2 RBC 4.12 M/ul 12/04/2016 Cbc With Differential Ord2 HGB 12.6 g/dl 12/04/2016 Cbc With Differential Ord2 HCT 37.6 % 12/04/2016 Cbc With Differential Ord2 Neut% 60.3 % 12/04/2016 Cbc With Differential Ord2 MCV 91.3 fl 12/04/2016 Cbc With Differential Ord2 Lymph% 24.8 % 12/04/2016 Cbc With Differential Ord2 MCH 30.6 pg 12/04/2016 Cbc With Differential Ord2 Weld% 10.7 % 12/04/2016 Cbc With Differential Ord2 MCHC 33.5 pg 12/04/2016 Cbc With Differential Ord2 Eos% 3.1 % 12/04/2016 Cbc With Differential Ord2 PLT 254 K/ul 12/04/2016 Cbc With Differential Ord2 Baso% 1.1 % 12/04/2016 Cbc With Differential Ord2 RDW 14.3 % 12/04/2016 Cbc With Differential Ord2 Neut ABS# 4.27 K/ul 12/04/2016 Cbc With Differential Ord2 Lymph ABS# 1.76 K/ul 12/04/2016 Cbc With Differential Ord2 Weld ABS# 0.8 K/ul 12/04/2016 Cbc With Differential Ord2 Eos ABS# 0.2 K/ul 12/04/2016 Cbc With Differential Ord2 Baso ABS# 0.1 K/ul 12/04/2016 Lipid Ord30 CHOL 156 mg/dL 12/04/2016 Lipid Ord30 HDL 47.0 mg/dl 12/04/2016 Lipid Ord30 TRIG 219 mg/dL 12/04/2016 Lipid Ord30 LDL 65 mg/dL 12/04/2016 Lipid Ord30 C/HDL 3.3 Ratio 12/04/2016 Comp Metabolic Icx214 NA 139 mEq/L 12/04/2016 Comp Metabolic Klq933 K 4.4 mEq/L 12/04/2016 Comp Metabolic Fvl964 CL 103 mEq/L 12/04/2016 Comp Metabolic Wgm498 CO2 27.0 mEq/L 12/04/2016 Comp Metabolic Wtb177 ANION GAP 13 12/04/2016 Comp Metabolic Rep632 GLUCOSE 147 mg/dL 12/04/2016 Comp Metabolic Dkn482 Creat 1.0 mg/dL 12/04/2016 Comp Metabolic Haw704 eGFR 83 ml/min/1.73m2 12/04/2016 Comp Metabolic Sud023 BUN 20 mg/dL 12/04/2016 Comp Metabolic Bjy472 B/C Ratio 21.1 Ratio 12/04/2016 Comp Metabolic Xjh621 CALCIUM 9.5 mg/dL 12/04/2016 Comp Metabolic Kxt906 ALK PHOS 44 U/L 12/04/2016 Comp Metabolic Lwu906 AST(SGOT) 22 U/L 12/04/2016 Comp Metabolic Duq060 ALT(SGPT) 23 U/L 12/04/2016 Comp Metabolic Jll141 BILI T 0.8 mg/dL 12/04/2016 Comp Metabolic Vqn866 ALBUMIN 3.9 g/dL 12/04/2016 Comp Metabolic Ybm643 TPRO 6.3 g/dL 12/04/2016 Comp Metabolic Oyj712 GLOB 2.4 g/dL 12/04/2016 Comp Metabolic Gum453 A/G Ratio 1.7 Ratio 12/04/2016 Comp Metabolic Nnb375 Osmo 283 mOsmo 12/04/2016 Tsh Ord6 hTSH II 3.35 uIU/mL 12/04/2016 %Hba1C Nyf035 % HbA1c 32441- 6 7.4 % 12/04/2016 %Hba1C Mca037 Gluc Ave 166 mg/dL 12/04/2016 Comp Metabolic Hls318 NA 138 mEq/L 08/28/2016 Comp Metabolic Mue994 K 4.7 mEq/L 08/28/2016 Comp Metabolic Hzh173 CL 101 mEq/L 08/28/2016 Comp Metabolic Msz011 CO2 29.0 mEq/L 08/28/2016 Comp Metabolic Chb153 ANION GAP 13 08/28/2016 Comp Metabolic Ngn427 GLUCOSE 188 mg/dL 08/28/2016 Comp Metabolic Glr713 Creat 1.0 mg/dL 08/28/2016 Comp Metabolic Wgh670 eGFR 82 ml/min/1.73m2 08/28/2016 Comp Metabolic Gkl744 BUN 21 mg/dL 08/28/2016 Comp Metabolic Phx973 B/C Ratio 21.9 Ratio 08/28/2016 Comp Metabolic Xmr797 CALCIUM 9.6 mg/dL 08/28/2016 Comp Metabolic Gfa119 ALK PHOS 52 U/L 08/28/2016 Comp Metabolic Swh150 AST(SGOT) 27 U/L 08/28/2016 Comp Metabolic Gle439 ALT(SGPT) 26 U/L 08/28/2016 Comp Metabolic Pju737 BILI T 0.9 mg/dL 08/28/2016 Comp Metabolic Ihe131 ALBUMIN 4.2 g/dL 08/28/2016 Comp Metabolic Ckt126 TPRO 6.8 g/dL 08/28/2016 Comp Metabolic Pqz270 GLOB 2.6 g/dL 08/28/2016 Comp Metabolic Pbo370 A/G Ratio 1.6 Ratio 08/28/2016 Comp Metabolic Xko607 Osmo 284 mOsmo 08/28/2016 Cbc With Differential Ord2 WBC 7.34 K/ul 08/28/2016 Cbc With Differential Ord2 RBC 4.17 M/ul 08/28/2016 Cbc With Differential Ord2 HGB 12.9 g/dl 08/28/2016 Cbc With Differential Ord2 HCT 37.9 % 08/28/2016 Cbc With Differential Ord2 Neut% 58.2 % 08/28/2016 Cbc With Differential Ord2 MCV 90.9 fl 08/28/2016 Cbc With Differential Ord2 Lymph% 22.9 % 08/28/2016 Cbc With Differential Ord2 MCH 30.9 pg 08/28/2016 Cbc With Differential Ord2 Weld% 14.3 % 08/28/2016 Cbc With Differential Ord2 MCHC 34.0 pg 08/28/2016 Cbc With Differential Ord2 Eos% 3.8 % 08/28/2016 Cbc With Differential Ord2 PLT 256 K/ul 08/28/2016 Cbc With Differential Ord2 Baso% 0.8 % 08/28/2016 Cbc With Differential Ord2 RDW 14.1 % 08/28/2016 Cbc With Differential Ord2 Neut ABS# 4.27 K/ul 08/28/2016 Cbc With Differential Ord2 Lymph ABS# 1.68 K/ul 08/28/2016 Cbc With Differential Ord2 Weld ABS# 1.1 K/ul 08/28/2016 Cbc With Differential Ord2 Eos ABS# 0.3 K/ul 08/28/2016 Cbc With Differential Ord2 Baso ABS# 0.1 K/ul 08/28/2016 %Hba1C Kbd477 % HbA1c 69871- 6 7.6 % 08/28/2016 %Hba1C Fin215 Gluc Ave 171 mg/dL 08/28/2016 Cbc With Differential Ord2 WBC 7.42 K/ul 05/23/2016 Cbc With Differential Ord2 RBC 4.06 M/ul 05/23/2016 Cbc With Differential Ord2 HGB 12.3 g/dl 05/23/2016 Cbc With Differential Ord2 HCT 37.1 % 05/23/2016 Cbc With Differential Ord2 Neut% 60.6 % 05/23/2016 Cbc With Differential Ord2 MCV 91.4 fl 05/23/2016 Cbc With Differential Ord2 Lymph% 23.5 % 05/23/2016 Cbc With Differential Ord2 MCH 30.3 pg 05/23/2016 Cbc With Differential Ord2 Weld% 12.0 % 05/23/2016 Cbc With Differential Ord2 MCHC 33.2 pg 05/23/2016 Cbc With Differential Ord2 Eos% 3.1 % 05/23/2016 Cbc With Differential Ord2 PLT 244 K/ul 05/23/2016 Cbc With Differential Ord2 Baso% 0.8 % 05/23/2016 Cbc With Differential Ord2 RDW 14.5 % 05/23/2016 Cbc With Differential Ord2 Neut ABS# 4.50 K/ul 05/23/2016 Cbc With Differential Ord2 Lymph ABS# 1.74 K/ul 05/23/2016 Cbc With Differential Ord2 Weld ABS# 0.9 K/ul 05/23/2016 Cbc With Differential Ord2 Eos ABS# 0.2 K/ul 05/23/2016 Cbc With Differential Ord2 Baso ABS# 0.1 K/ul 05/23/2016 Tsh Ord6 hTSH II 3.24 uIU/mL 05/23/2016 %Hba1C Rbl813 % HbA1c 39185- 6 7.1 % 05/23/2016 %Hba1C Akh981 Gluc Ave 157 mg/dL 05/23/2016 Lipid Ord30 CHOL 155 mg/dL 05/23/2016 Lipid Ord30 HDL 50.0 mg/dl 05/23/2016 Lipid Ord30 TRIG 159 mg/dL 05/23/2016 Lipid Ord30 LDL 73 mg/dL 05/23/2016 Lipid Ord30 C/HDL 3.1 Ratio 05/23/2016 Comp Metabolic Huq367 NA 137 mEq/L 05/23/2016 Comp Metabolic Bco016 K 4.3 mEq/L 05/23/2016 Comp Metabolic Pjz454 CL 102 mEq/L 05/23/2016 Comp Metabolic Fpu773 CO2 28.0 mEq/L 05/23/2016 Comp Metabolic Stj924 ANION GAP 11 05/23/2016 Comp Metabolic Czx673 GLUCOSE 140 mg/dL 05/23/2016 Comp Metabolic Ebg348 Creat 0.9 mg/dL 05/23/2016 Comp Metabolic Ctx284 eGFR 93 ml/min/1.73m2 05/23/2016 Comp Metabolic Gtb525 BUN 23 mg/dL 05/23/2016 Comp Metabolic Sek803 B/C Ratio 26.7 Ratio 05/23/2016 Comp Metabolic Ycl950 CALCIUM 9.4 mg/dL 05/23/2016 Comp Metabolic Hng031 ALK PHOS 43 U/L 05/23/2016 Comp Metabolic Pjv456 AST(SGOT) 23 U/L 05/23/2016 Comp Metabolic Pzr356 ALT(SGPT) 23 U/L 05/23/2016 Comp Metabolic Mqp184 BILI T 0.7 mg/dL 05/23/2016 Comp Metabolic Dot122 ALBUMIN 4.2 g/dL 05/23/2016 Comp Metabolic Jrp838 TPRO 6.8 g/dL 05/23/2016 Comp Metabolic Tzi259 GLOB 2.6 g/dL 05/23/2016 Comp Metabolic Nxf210 A/G Ratio 1.6 Ratio 05/23/2016 Comp Metabolic Mil785 Osmo 280 mOsmo 05/23/2016 Cbc With Differential Ord2 WBC 7.21 K/ul 01/24/2016 Cbc With Differential Ord2 RBC 4.05 M/ul 01/24/2016 Cbc With Differential Ord2 HGB 12.1 g/dl 01/24/2016 Cbc With Differential Ord2 HCT 36.2 % 01/24/2016 Cbc With Differential Ord2 Neut% 58.0 % 01/24/2016 Cbc With Differential Ord2 MCV 89.4 fl 01/24/2016 Cbc With Differential Ord2 Lymph% 26.6 % 01/24/2016 Cbc With Differential Ord2 MCH 29.9 pg 01/24/2016 Cbc With Differential Ord2 Weld% 11.1 % 01/24/2016 Cbc With Differential Ord2 MCHC 33.4 pg 01/24/2016 Cbc With Differential Ord2 Eos% 3.5 % 01/24/2016 Cbc With Differential Ord2 PLT 251 K/ul 01/24/2016 Cbc With Differential Ord2 Baso% 0.8 % 01/24/2016 Cbc With Differential Ord2 RDW 14.3 % 01/24/2016 Cbc With Differential Ord2 Neut ABS# 4.18 K/ul 01/24/2016 Cbc With Differential Ord2 Lymph ABS# 1.92 K/ul 01/24/2016 Cbc With Differential Ord2 Weld ABS# 0.8 K/ul 01/24/2016 Cbc With Differential Ord2 Eos ABS# 0.3 K/ul 01/24/2016 Cbc With Differential Ord2 Baso ABS# 0.1 K/ul 01/24/2016 Cbc With Differential Ord2 New Analyzer Notice Please note new ref ranges starting 09-21-2015 due to implemntation of new five part differential hematolgy analyzer. 01/24/2016 Comp Metabolic Ljb569 NA 139 mEq/L 01/24/2016 Comp Metabolic Gvi337 K 4.1 mEq/L 01/24/2016 Comp Metabolic Auf419 CL 102 mEq/L 01/24/2016 Comp Metabolic Nue059 CO2 29.0 mEq/L 01/24/2016 Comp Metabolic Uay551 ANION GAP 12 01/24/2016 Comp Metabolic Yhb776 GLUCOSE 140 mg/dL 01/24/2016 Comp Metabolic Qeg575 Creat 0.9 mg/dL 01/24/2016 Comp Metabolic Wzi154 eGFR 87 ml/min/1.73m2 01/24/2016 Comp Metabolic Vyx315 BUN 20 mg/dL 01/24/2016 Comp Metabolic Bqt605 B/C Ratio 22.0 Ratio 01/24/2016 Comp Metabolic Mmn551 CALCIUM 9.3 mg/dL 01/24/2016 Comp Metabolic Gon874 ALK PHOS 46 U/L 01/24/2016 Comp Metabolic Ddl189 AST(SGOT) 23 U/L 01/24/2016 Comp Metabolic Tma931 ALT(SGPT) 22 U/L 01/24/2016 Comp Metabolic Fty873 BILI T 0.7 mg/dL 01/24/2016 Comp Metabolic Cuw162 ALBUMIN 4.1 g/dL 01/24/2016 Comp Metabolic Pmy204 TPRO 6.7 g/dL 01/24/2016 Comp Metabolic Mdy979 GLOB 2.6 g/dL 01/24/2016 Comp Metabolic Psd599 A/G Ratio 1.6 Ratio 01/24/2016 Comp Metabolic Hlf336 Osmo 282 mOsmo 01/24/2016 %Hba1C Aum928 % HbA1c 41382- 6 6.8 % 01/24/2016 %Hba1C Oyg432 Gluc Ave 148 mg/dL 01/24/2016 Tsh Ord6 hTSH II 3.45 uIU/mL 01/24/2016 Lipid Ord30 CHOL 137 mg/dL 01/24/2016 Lipid Ord30 HDL 47.0 mg/dl 01/24/2016 Lipid Ord30 TRIG 161 mg/dL 01/24/2016 Lipid Ord30 LDL 58 mg/dL 01/24/2016 Lipid Ord30 C/HDL 2.9 Ratio 01/24/2016 Tsh Ord6 hTSH II 3.71 uIU/mL 10/25/2015 %Hba1C Ngy769 % HbA1c 50542- 6 7.1 % 10/25/2015 %Hba1C Zls133 Gluc Ave 157 mg/dL 10/25/2015 Cbc With Differential Ord2 WBC 6.07 K/ul 10/25/2015 Cbc With Differential Ord2 RBC 3.97 M/ul 10/25/2015 Cbc With Differential Ord2 HGB 12.0 g/dl 10/25/2015 Cbc With Differential Ord2 HCT 36.0 % 10/25/2015 Cbc With Differential Ord2 Neut% 54.0 % 10/25/2015 Cbc With Differential Ord2 MCV 90.7 fl 10/25/2015 Cbc With Differential Ord2 Lymph% 27.8 % 10/25/2015 Cbc With Differential Ord2 MCH 30.2 pg 10/25/2015 Cbc With Differential Ord2 Weld% 12.4 % 10/25/2015 Cbc With Differential Ord2 MCHC 33.3 pg 10/25/2015 Cbc With Differential Ord2 Eos% 4.6 % 10/25/2015 Cbc With Differential Ord2 PLT 273 K/ul 10/25/2015 Cbc With Differential Ord2 Baso% 1.2 % 10/25/2015 Cbc With Differential Ord2 RDW 14.1 % 10/25/2015 Cbc With Differential Ord2 Neut ABS# 3.28 K/ul 10/25/2015 Cbc With Differential Ord2 Lymph ABS# 1.69 K/ul 10/25/2015 Cbc With Differential Ord2 Weld ABS# 0.8 K/ul 10/25/2015 Cbc With Differential Ord2 Eos ABS# 0.3 K/ul 10/25/2015 Cbc With Differential Ord2 Baso ABS# 0.1 K/ul 10/25/2015 Cbc With Differential Ord2 New Analyzer Notice Please note new ref ranges starting 09-21-2015 due to implemntation of new five part differential hematolgy analyzer. 10/25/2015 Lipid Ord30 CHOL 136 mg/dL 10/25/2015 Lipid Ord30 HDL 43.0 mg/dl 10/25/2015 Lipid Ord30 TRIG 159 mg/dL 10/25/2015 Lipid Ord30 LDL 61 mg/dL 10/25/2015 Lipid Ord30 C/HDL 3.2 Ratio 10/25/2015 Comp Metabolic Kuu827 NA 136 mEq/L 10/25/2015 Comp Metabolic Qwz423 K 4.0 mEq/L 10/25/2015 Comp Metabolic Joy678 CL 102 mEq/L 10/25/2015 Comp Metabolic Ijd655 CO2 26.0 mEq/L 10/25/2015 Comp Metabolic Ljx325 ANION GAP 12 10/25/2015 Comp Metabolic Rhg709 GLUCOSE 119 mg/dL 10/25/2015 Comp Metabolic Wcw844 Creat 1.1 mg/dL 10/25/2015 Comp Metabolic Nvc052 eGFR 69 ml/min/1.73m2 10/25/2015 Comp Metabolic Bll849 BUN 21 mg/dL 10/25/2015 Comp Metabolic Nwl111 B/C Ratio 18.8 Ratio 10/25/2015 Comp Metabolic Dxm514 CALCIUM 9.5 mg/dL 10/25/2015 Comp Metabolic Lsn741 ALK PHOS 49 U/L 10/25/2015 Comp Metabolic Yvb337 AST(SGOT) 29 U/L 10/25/2015 Comp Metabolic Gbk207 ALT(SGPT) 28 U/L 10/25/2015 Comp Metabolic Nzt376 BILI T 0.7 mg/dL 10/25/2015 Comp Metabolic Dwm767 ALBUMIN 4.2 g/dL 10/25/2015 Comp Metabolic Mst250 TPRO 6.7 g/dL 10/25/2015 Comp Metabolic Ink961 GLOB 2.5 g/dL 10/25/2015 Comp Metabolic Ofa818 A/G Ratio 1.7 Ratio 10/25/2015 Comp Metabolic Lmc308 Osmo 276 mOsmo 10/25/2015 Sensitivity Report #1 [id number] ORGANISM ESCHERICHIA COLI 10/06/2015 Sensitivity Report #1 [id number] ORG NUMBER 1 10/06/2015 Sensitivity Report #1 [id number] AMIKACIN S 10/06/2015 Sensitivity Report #1 [id number] AMPICILLIN/SULBACTAM S 10/06/2015 Sensitivity Report #1 [id number] AMOXICILLIN/CLAV S 10/06/2015 Sensitivity Report #1 [id number] CEFEPIME S 10/06/2015 Sensitivity Report #1 [id number] AMPICILLIN S 10/06/2015 Sensitivity Report #1 [id number] CEFOTAXIME S 10/06/2015 Sensitivity Report #1 [id number] CEFAZOLIN S 10/06/2015 Sensitivity Report #1 [id number] CEFTAZIDIME S 10/06/2015 Sensitivity Report #1 [id number] CEFTRIAXONE S 10/06/2015 Sensitivity Report #1 [id number] CIPROFLOXACIN S 10/06/2015 Sensitivity Report #1 [id number] GENTAMICIN S 10/06/2015 Sensitivity Report #1 [id number] LEVOFLOXACIN S 10/06/2015 Sensitivity Report #1 [id number] CEFUROXIME S 10/06/2015 Sensitivity Report #1 [id number] MEROPENEM S 10/06/2015 Sensitivity Report #1 [id number] TETRACYCLINE S 10/06/2015 Sensitivity Report #1 [id number] ERTAPENEM S 10/06/2015 Sensitivity Report #1 [id number] TOBRAMYCIN S 10/06/2015 Sensitivity Report #1 [id number] TRIMETH/SULFA S 10/06/2015 Sensitivity Report #1 [id number] IMIPENEM S 10/06/2015 Sensitivity Report #1 [id number] NITROFURANTOIN S 10/06/2015 Sensitivity Report #1 [id number] PIPERACILLIN/TAZO S 10/06/2015 Culture Urine [id number] URINE CULTURE SEE NOTES 10/06/2015 Culture Urine [id number] SOURCE: URINE 10/06/2015 Culture Urine [id number] STATUS: FINAL 10/06/2015 Culture Urine [id number] DATE PLATED: 10/03/2015 10/06/2015 Culture Urine [id number] PRELIMINARY: 10/06/2015 Culture Urine [id number] CULTURE REPORT: 10/06/2015 Urine Culture Ucult Complete >100,000 col/ml aerobic growth sent to ref lab 10/04/2015 Comp Metabolic Vkh995 NA 133 mEq/L 07/19/2015 Comp Metabolic Kri043 K 4.2 mEq/L 07/19/2015 Comp Metabolic Duf283 CL 101 mEq/L 07/19/2015 Comp Metabolic Dff846 CO2 25.0 mEq/L 07/19/2015 Comp Metabolic Zzv733 ANION GAP 11 07/19/2015 Comp Metabolic Jcn719 GLUCOSE 293 mg/dL 07/19/2015 Comp Metabolic Niy057 Creat 1.0 mg/dL 07/19/2015 Comp Metabolic Axq939 eGFR 81 ml/min/1.73m2 07/19/2015 Comp Metabolic Pha786 BUN 19 mg/dL 07/19/2015 Comp Metabolic Rdl276 B/C Ratio 19.6 Ratio 07/19/2015 Comp Metabolic Kfb043 CALCIUM 9.4 mg/dL 07/19/2015 Comp Metabolic Yad917 ALK PHOS 61 U/L 07/19/2015 Comp Metabolic Yhz915 AST(SGOT) 32 U/L 07/19/2015 Comp Metabolic Glv766 ALT(SGPT) 41 U/L 07/19/2015 Comp Metabolic Bra303 BILI T 0.7 mg/dL 07/19/2015 Comp Metabolic Sge926 ALBUMIN 4.1 g/dL 07/19/2015 Comp Metabolic Clu357 TPRO 6.7 g/dL 07/19/2015 Comp Metabolic Lro515 GLOB 2.6 g/dL 07/19/2015 Comp Metabolic Kwx908 A/G Ratio 1.6 Ratio 07/19/2015 Comp Metabolic Cst072 Osmo 279 mOsmo 07/19/2015 %Hba1C Rjf005 % HbA1c 95422- 6 9.2 % 07/19/2015 %Hba1C Krx819 Gluc Ave 217 mg/dL 07/19/2015 Cbc With Differential Ord2 WBC 6.2 K/uL 07/19/2015 Cbc With Differential Ord2 LYM 1.6 K/uL 07/19/2015 Cbc With Differential Ord2 LYM% 25.6 % 07/19/2015 Cbc With Differential Ord2 NEUT/GRAN 4.1 K/uL 07/19/2015 Cbc With Differential Ord2 NEUT/GRAN % 65.5 % 07/19/2015 Cbc With Differential Ord2 MID 0.6 K/uL 07/19/2015 Cbc With Differential Ord2 MID% 8.9 % 07/19/2015 Cbc With Differential Ord2 RBC 4.19 M/uL 07/19/2015 Cbc With Differential Ord2 HGB 12.3 g/dL 07/19/2015 Cbc With Differential Ord2 HCT 38.5 % 07/19/2015 Cbc With Differential Ord2 MCV 92 fL 07/19/2015 Cbc With Differential Ord2 MCH 29 pg 07/19/2015 Cbc With Differential Ord2 MCHC 32 g/dL 07/19/2015 Cbc With Differential Ord2 PLT 236 K/uL 07/19/2015 Cbc With Differential Ord2 RDW 14.8 % 07/19/2015 Urine Culture Ucult Complete >100,000 col/ml aerobic growth sent to ref lab 05/10/2015 Cbc With Differential Ord2 WBC 6.4 K/uL 04/19/2015 Cbc With Differential Ord2 LYM 1.9 K/uL 04/19/2015 Cbc With Differential Ord2 LYM% 29.6 % 04/19/2015 Cbc With Differential Ord2 NEUT/GRAN 3.9 K/uL 04/19/2015 Cbc With Differential Ord2 NEUT/GRAN % 61.7 % 04/19/2015 Cbc With Differential Ord2 MID 0.6 K/uL 04/19/2015 Cbc With Differential Ord2 MID% 8.7 % 04/19/2015 Cbc With Differential Ord2 RBC 3.92 M/uL 04/19/2015 Cbc With Differential Ord2 HGB 11.8 g/dL 04/19/2015 Cbc With Differential Ord2 HCT 35.7 % 04/19/2015 Cbc With Differential Ord2 MCV 91 fL 04/19/2015 Cbc With Differential Ord2 MCH 30 pg 04/19/2015 Cbc With Differential Ord2 MCHC 33 g/dL 04/19/2015 Cbc With Differential Ord2 PLT 243 K/uL 04/19/2015 Cbc With Differential Ord2 RDW 14.7 % 04/19/2015 Tsh Ord6 hTSH II 2.72 uIU/mL 04/19/2015 %Hba1C Lsz624 % HbA1c 92694- 6 8.6 % 04/19/2015 %Hba1C Nmp609 Gluc Ave 200 mg/dL 04/19/2015 Comp Metabolic Ukn384 NA 139 mEq/L 04/19/2015 Comp Metabolic Hbe517 K 4.2 mEq/L 04/19/2015 Comp Metabolic Nru870 CL 106 mEq/L 04/19/2015 Comp Metabolic Wju764 CO2 27.0 mEq/L 04/19/2015 Comp Metabolic Kdm740 ANION GAP 10 04/19/2015 Comp Metabolic Kjn868 GLUCOSE 157 mg/dL 04/19/2015 Comp Metabolic Ljk822 Creat 0.9 mg/dL 04/19/2015 Comp Metabolic Xzz291 eGFR 84 ml/min/1.73m2 04/19/2015 Comp Metabolic Dnz095 BUN 14 mg/dL 04/19/2015 Comp Metabolic Mnr748 B/C Ratio 14.9 Ratio 04/19/2015 Comp Metabolic Dlk714 CALCIUM 9.5 mg/dL 04/19/2015 Comp Metabolic Dhw953 ALK PHOS 51 U/L 04/19/2015 Comp Metabolic Ssz024 AST(SGOT) 28 U/L 04/19/2015 Comp Metabolic Yha421 ALT(SGPT) 29 U/L 04/19/2015 Comp Metabolic Wdt537 BILI T 0.6 mg/dL 04/19/2015 Comp Metabolic Uhr860 ALBUMIN 4.1 g/dL 04/19/2015 Comp Metabolic Udw915 TPRO 6.4 g/dL 04/19/2015 Comp Metabolic Bac948 GLOB 2.3 g/dL 04/19/2015 Comp Metabolic Fxx974 A/G Ratio 1.8 Ratio 04/19/2015 Comp Metabolic Utn140 Osmo 281 mOsmo 04/19/2015 Lipid Ord30 CHOL 136 mg/dL 04/19/2015 Lipid Ord30 HDL 42.0 mg/dl 04/19/2015 Lipid Ord30 TRIG 226 mg/dL 04/19/2015 Lipid Ord30 LDL 49 mg/dL 04/19/2015 Lipid Ord30 C/HDL 3.2 Ratio 04/19/2015 Review of Systems System Result Effective Dates Constitutional No anorexia 01/08/2019 Constitutional No night sweats 01/08/2019 Constitutional No chills 01/08/2019 Constitutional No fever 01/08/2019 Constitutional No insomnia 01/08/2019 Constitutional weight gain 01/08/2019 Constitutional obesity 01/08/2019 Eyes No vision change 01/08/2019 Ears/Nose/Throat/Neck No dizziness 01/08/2019 Ears/Nose/Throat/Neck No headache 01/08/2019 Cardiovascular No chest pain/pressure 01/08/2019 Cardiovascular No palpitations 01/08/2019 Respiratory No cough 01/08/2019 Gastrointestinal No abdominal pain 01/08/2019 Gastrointestinal No constipation 01/08/2019 Gastrointestinal No diarrhea 01/08/2019 Gastrointestinal No nausea 01/08/2019 Gastrointestinal No vomiting 01/08/2019 Musculoskeletal No swelling 01/08/2019 Musculoskeletal No joint complaint 01/08/2019 Neurologic No dizziness 01/08/2019 Neurologic dyskinesia or tremor 01/08/2019 Psychiatric No anxiety 01/08/2019 Psychiatric depression 01/08/2019 Constitutional No anorexia 10/09/2018 Constitutional No night sweats 10/09/2018 Constitutional No chills 10/09/2018 Constitutional No fever 10/09/2018 Constitutional No insomnia 10/09/2018 Constitutional weight gain 10/09/2018 Constitutional obesity 10/09/2018 Eyes No vision change 10/09/2018 Ears/Nose/Throat/Neck No dizziness 10/09/2018 Ears/Nose/Throat/Neck No headache 10/09/2018 Cardiovascular No chest pain/pressure 10/09/2018 Cardiovascular No palpitations 10/09/2018 Respiratory No cough 10/09/2018 Gastrointestinal No abdominal pain 10/09/2018 Gastrointestinal No constipation 10/09/2018 Gastrointestinal No diarrhea 10/09/2018 Gastrointestinal No nausea 10/09/2018 Gastrointestinal No vomiting 10/09/2018 Musculoskeletal No swelling 10/09/2018 Musculoskeletal No joint complaint 10/09/2018 Neurologic No dizziness 10/09/2018 Neurologic dyskinesia or tremor 10/09/2018 Psychiatric No anxiety 10/09/2018 Psychiatric depression 10/09/2018 Constitutional No anorexia 07/07/2018 Constitutional No night sweats 07/07/2018 Constitutional No chills 07/07/2018 Constitutional No fever 07/07/2018 Constitutional No insomnia 07/07/2018 Constitutional weight gain 07/07/2018 Eyes No vision change 07/07/2018 Ears/Nose/Throat/Neck No dizziness 07/07/2018 Ears/Nose/Throat/Neck No headache 07/07/2018 Cardiovascular No chest pain/pressure 07/07/2018 Cardiovascular No palpitations 07/07/2018 Respiratory No cough 07/07/2018 Gastrointestinal No abdominal pain 07/07/2018 Gastrointestinal No constipation 07/07/2018 Gastrointestinal No diarrhea 07/07/2018 Gastrointestinal No nausea 07/07/2018 Gastrointestinal No vomiting 07/07/2018 Musculoskeletal No swelling 07/07/2018 Musculoskeletal No joint complaint 07/07/2018 Neurologic No dizziness 07/07/2018 Neurologic dyskinesia or tremor 07/07/2018 Psychiatric No anxiety 07/07/2018 Psychiatric depression 07/07/2018 Constitutional obesity 07/07/2018 Constitutional No anorexia 05/21/2018 Constitutional No night sweats 05/21/2018 Constitutional No chills 05/21/2018 Constitutional No fever 05/21/2018 Constitutional No insomnia 05/21/2018 Constitutional weight gain 05/21/2018 Eyes No vision change 05/21/2018 Ears/Nose/Throat/Neck No dizziness 05/21/2018 Ears/Nose/Throat/Neck No headache 05/21/2018 Cardiovascular No chest pain/pressure 05/21/2018 Cardiovascular No palpitations 05/21/2018 Respiratory No cough 05/21/2018 Gastrointestinal No abdominal pain 05/21/2018 Gastrointestinal No constipation 05/21/2018 Gastrointestinal No diarrhea 05/21/2018 Gastrointestinal No nausea 05/21/2018 Gastrointestinal No vomiting 05/21/2018 Musculoskeletal No swelling 05/21/2018 Musculoskeletal No joint complaint 05/21/2018 Neurologic No dizziness 05/21/2018 Neurologic dyskinesia or tremor 05/21/2018 Psychiatric No anxiety 05/21/2018 Psychiatric depression 05/21/2018 Constitutional No anorexia 03/06/2018 Constitutional No night sweats 03/06/2018 Constitutional No chills 03/06/2018 Constitutional No fever 03/06/2018 Constitutional No insomnia 03/06/2018 Eyes No vision change 03/06/2018 Ears/Nose/Throat/Neck No dizziness 03/06/2018 Ears/Nose/Throat/Neck No headache 03/06/2018 Cardiovascular No chest pain/pressure 03/06/2018 Cardiovascular No palpitations 03/06/2018 Respiratory No cough 03/06/2018 Gastrointestinal No abdominal pain 03/06/2018 Gastrointestinal No constipation 03/06/2018 Gastrointestinal No diarrhea 03/06/2018 Gastrointestinal No nausea 03/06/2018 Gastrointestinal No vomiting 03/06/2018 Musculoskeletal No swelling 03/06/2018 Musculoskeletal No joint complaint 03/06/2018 Neurologic No dizziness 03/06/2018 Neurologic dyskinesia or tremor 03/06/2018 Psychiatric No anxiety 03/06/2018 Psychiatric depression 03/06/2018 Constitutional weight gain 03/06/2018 Constitutional No recent illness 12/24/2017 Constitutional No chills 12/24/2017 Constitutional No diaphoresis 12/24/2017 Constitutional No fever 12/24/2017 Eyes No eye erythema 12/24/2017 Ears/Nose/Throat/Neck No nasal discharge 12/24/2017 Cardiovascular No chest pain/pressure 12/24/2017 Cardiovascular No dyspnea 12/24/2017 Respiratory No cough 12/24/2017 Respiratory No dyspnea 12/24/2017 Neurologic No alteration of consciousness 12/24/2017 Neurologic No mental status change 12/24/2017 Constitutional No anorexia 11/21/2017 Constitutional No night sweats 11/21/2017 Constitutional No chills 11/21/2017 Constitutional No fever 11/21/2017 Constitutional No insomnia 11/21/2017 Eyes No vision change 11/21/2017 Ears/Nose/Throat/Neck No dizziness 11/21/2017 Ears/Nose/Throat/Neck No headache 11/21/2017 Cardiovascular No chest pain/pressure 11/21/2017 Cardiovascular No palpitations 11/21/2017 Respiratory No cough 11/21/2017 Gastrointestinal No abdominal pain 11/21/2017 Gastrointestinal No constipation 11/21/2017 Gastrointestinal No diarrhea 11/21/2017 Gastrointestinal No nausea 11/21/2017 Gastrointestinal No vomiting 11/21/2017 Musculoskeletal No swelling 11/21/2017 Musculoskeletal No joint complaint 11/21/2017 Neurologic No dizziness 11/21/2017 Neurologic dyskinesia or tremor 11/21/2017 Psychiatric No anxiety 11/21/2017 Psychiatric depression 11/21/2017 Ears/Nose/Throat/Neck otalgia 11/21/2017 Genitourinary/Nephrology No urinary urgency 11/21/2017 Dermatologic No rash 11/21/2017 Dermatologic No sores 11/21/2017 Constitutional No anorexia 07/29/2017 Constitutional No night sweats 07/29/2017 Constitutional No chills 07/29/2017 Constitutional No fever 07/29/2017 Constitutional No insomnia 07/29/2017 Eyes No vision change 07/29/2017 Ears/Nose/Throat/Neck No dizziness 07/29/2017 Ears/Nose/Throat/Neck No headache 07/29/2017 Cardiovascular No chest pain/pressure 07/29/2017 Cardiovascular No palpitations 07/29/2017 Respiratory No cough 07/29/2017 Gastrointestinal No abdominal pain 07/29/2017 Gastrointestinal No constipation 07/29/2017 Gastrointestinal No diarrhea 07/29/2017 Gastrointestinal No nausea 07/29/2017 Gastrointestinal No vomiting 07/29/2017 Musculoskeletal No swelling 07/29/2017 Musculoskeletal No joint complaint 07/29/2017 Neurologic No dizziness 07/29/2017 Neurologic dyskinesia or tremor 07/29/2017 Psychiatric No anxiety 07/29/2017 Psychiatric depression 07/29/2017 Constitutional No recent illness 07/02/2017 Constitutional No chills 07/02/2017 Constitutional No diaphoresis 07/02/2017 Constitutional No fever 07/02/2017 Eyes No eye erythema 07/02/2017 Ears/Nose/Throat/Neck No nasal discharge 07/02/2017 Ears/Nose/Throat/Neck No nasal allergies 07/02/2017 Cardiovascular No chest pain/pressure 07/02/2017 Cardiovascular No dyspnea 07/02/2017 Respiratory No cough 07/02/2017 Respiratory No dyspnea 07/02/2017 Dermatologic skin lesion 07/02/2017 Neurologic No alteration of consciousness 07/02/2017 Neurologic No mental status change 07/02/2017 Constitutional No recent illness 06/04/2017 Constitutional No anorexia 06/04/2017 Constitutional No night sweats 06/04/2017 Constitutional No chills 06/04/2017 Constitutional No diaphoresis 06/04/2017 Constitutional No fatigue 06/04/2017 Constitutional No fever 06/04/2017 Constitutional No insomnia 06/04/2017 Constitutional No weight loss 06/04/2017 Constitutional No weight gain 06/04/2017 Constitutional No malaise 06/04/2017 Musculoskeletal back pain 06/04/2017 Musculoskeletal sciatica 06/04/2017 Dermatologic No rash 06/04/2017 Constitutional No anorexia 04/03/2017 Constitutional No night sweats 04/03/2017 Constitutional No chills 04/03/2017 Constitutional No fever 04/03/2017 Constitutional No insomnia 04/03/2017 Eyes No vision change 04/03/2017 Ears/Nose/Throat/Neck No dizziness 04/03/2017 Ears/Nose/Throat/Neck No headache 04/03/2017 Cardiovascular No chest pain/pressure 04/03/2017 Cardiovascular No palpitations 04/03/2017 Respiratory cough 04/03/2017 Gastrointestinal No abdominal pain 04/03/2017 Gastrointestinal No constipation 04/03/2017 Gastrointestinal No diarrhea 04/03/2017 Gastrointestinal No nausea 04/03/2017 Gastrointestinal No vomiting 04/03/2017 Musculoskeletal No swelling 04/03/2017 Musculoskeletal No joint complaint 04/03/2017 Neurologic No dizziness 04/03/2017 Psychiatric No anxiety 04/03/2017 Constitutional No anorexia 12/13/2016 Constitutional No night sweats 12/13/2016 Constitutional No chills 12/13/2016 Constitutional No fever 12/13/2016 Constitutional No insomnia 12/13/2016 Eyes No vision change 12/13/2016 Ears/Nose/Throat/Neck No dizziness 12/13/2016 Ears/Nose/Throat/Neck No headache 12/13/2016 Cardiovascular No chest pain/pressure 12/13/2016 Cardiovascular No palpitations 12/13/2016 Respiratory No cough 12/13/2016 Gastrointestinal No abdominal pain 12/13/2016 Gastrointestinal No constipation 12/13/2016 Gastrointestinal No diarrhea 12/13/2016 Gastrointestinal No nausea 12/13/2016 Gastrointestinal No vomiting 12/13/2016 Musculoskeletal No swelling 12/13/2016 Musculoskeletal No joint complaint 12/13/2016 Neurologic No dizziness 12/13/2016 Psychiatric No anxiety 12/13/2016 Constitutional No anorexia 12/05/2016 Constitutional No night sweats 12/05/2016 Constitutional No chills 12/05/2016 Constitutional No fever 12/05/2016 Constitutional No insomnia 12/05/2016 Eyes No vision change 12/05/2016 Ears/Nose/Throat/Neck No dizziness 12/05/2016 Ears/Nose/Throat/Neck No headache 12/05/2016 Cardiovascular No chest pain/pressure 12/05/2016 Cardiovascular No palpitations 12/05/2016 Respiratory No cough 12/05/2016 Gastrointestinal No abdominal pain 12/05/2016 Gastrointestinal No constipation 12/05/2016 Gastrointestinal No diarrhea 12/05/2016 Gastrointestinal No nausea 12/05/2016 Gastrointestinal No vomiting 12/05/2016 Musculoskeletal No swelling 12/05/2016 Musculoskeletal No joint complaint 12/05/2016 Neurologic No dizziness 12/05/2016 Neurologic dyskinesia or tremor 12/05/2016 Psychiatric No anxiety 12/05/2016 Psychiatric depression 12/05/2016 Constitutional No anorexia 08/30/2016 Constitutional No night sweats 08/30/2016 Constitutional No chills 08/30/2016 Constitutional No fever 08/30/2016 Constitutional No insomnia 08/30/2016 Eyes No vision change 08/30/2016 Ears/Nose/Throat/Neck No dizziness 08/30/2016 Ears/Nose/Throat/Neck No headache 08/30/2016 Cardiovascular No chest pain/pressure 08/30/2016 Cardiovascular No palpitations 08/30/2016 Respiratory No cough 08/30/2016 Gastrointestinal No abdominal pain 08/30/2016 Gastrointestinal No constipation 08/30/2016 Gastrointestinal No diarrhea 08/30/2016 Gastrointestinal No nausea 08/30/2016 Gastrointestinal No vomiting 08/30/2016 Musculoskeletal No swelling 08/30/2016 Musculoskeletal No joint complaint 08/30/2016 Neurologic No dizziness 08/30/2016 Neurologic dyskinesia or tremor 08/30/2016 Psychiatric No anxiety 08/30/2016 Psychiatric depression 08/30/2016 Constitutional No recent illness 07/13/2016 Constitutional No anorexia 07/13/2016 Constitutional No fever 07/13/2016 Cardiovascular No chest pain/pressure 07/13/2016 Respiratory No cough 07/13/2016 Gastrointestinal No abdominal pain 07/13/2016 Gastrointestinal No constipation 07/13/2016 Gastrointestinal No diarrhea 07/13/2016 Genitourinary/Nephrology No dysuria 07/13/2016 Genitourinary/Nephrology urinary incontinence 07/13/2016 Musculoskeletal joint complaint 07/13/2016 Dermatologic No rash 07/13/2016 Dermatologic No sores 07/13/2016 Musculoskeletal joint complaint 06/21/2016 Dermatologic No rash 06/21/2016 Dermatologic No sores 06/21/2016 Constitutional No recent illness 06/21/2016 Constitutional No anorexia 06/21/2016 Constitutional No night sweats 06/21/2016 Constitutional No fever 06/21/2016 Constitutional No fatigue 06/21/2016 Constitutional No diaphoresis 06/21/2016 Constitutional No chills 06/21/2016 Constitutional No insomnia 06/21/2016 Constitutional No malaise 06/21/2016 Constitutional No anorexia 05/24/2016 Constitutional No night sweats 05/24/2016 Constitutional No chills 05/24/2016 Constitutional No fever 05/24/2016 Constitutional No insomnia 05/24/2016 Eyes No vision change 05/24/2016 Ears/Nose/Throat/Neck No dizziness 05/24/2016 Ears/Nose/Throat/Neck No headache 05/24/2016 Cardiovascular No chest pain/pressure 05/24/2016 Cardiovascular No palpitations 05/24/2016 Respiratory No cough 05/24/2016 Gastrointestinal No abdominal pain 05/24/2016 Gastrointestinal No constipation 05/24/2016 Gastrointestinal No diarrhea 05/24/2016 Gastrointestinal No nausea 05/24/2016 Gastrointestinal No vomiting 05/24/2016 Musculoskeletal No swelling 05/24/2016 Musculoskeletal No joint complaint 05/24/2016 Neurologic No dizziness 05/24/2016 Psychiatric No anxiety 05/24/2016 Psychiatric depression 05/24/2016 Neurologic dyskinesia or tremor 05/24/2016 Constitutional No anorexia 01/24/2016 Constitutional No night sweats 01/24/2016 Constitutional No chills 01/24/2016 Constitutional No fever 01/24/2016 Constitutional No insomnia 01/24/2016 Eyes No vision change 01/24/2016 Ears/Nose/Throat/Neck No dizziness 01/24/2016 Ears/Nose/Throat/Neck No headache 01/24/2016 Cardiovascular No chest pain/pressure 01/24/2016 Cardiovascular No palpitations 01/24/2016 Respiratory No cough 01/24/2016 Gastrointestinal No abdominal pain 01/24/2016 Gastrointestinal No constipation 01/24/2016 Gastrointestinal No diarrhea 01/24/2016 Gastrointestinal No nausea 01/24/2016 Gastrointestinal No vomiting 01/24/2016 Musculoskeletal No swelling 01/24/2016 Musculoskeletal No joint complaint 01/24/2016 Neurologic No dizziness 01/24/2016 Psychiatric No anxiety 01/24/2016 Psychiatric depression 01/24/2016 Constitutional No anorexia 10/27/2015 Constitutional No night sweats 10/27/2015 Constitutional No chills 10/27/2015 Constitutional No fever 10/27/2015 Constitutional No insomnia 10/27/2015 Eyes No vision change 10/27/2015 Ears/Nose/Throat/Neck No dizziness 10/27/2015 Ears/Nose/Throat/Neck No headache 10/27/2015 Cardiovascular No chest pain/pressure 10/27/2015 Cardiovascular No palpitations 10/27/2015 Respiratory No cough 10/27/2015 Gastrointestinal No abdominal pain 10/27/2015 Gastrointestinal No constipation 10/27/2015 Gastrointestinal No diarrhea 10/27/2015 Gastrointestinal No nausea 10/27/2015 Gastrointestinal No vomiting 10/27/2015 Musculoskeletal No swelling 10/27/2015 Neurologic No dizziness 10/27/2015 Psychiatric No anxiety 10/27/2015 Psychiatric depression 10/27/2015 Musculoskeletal No joint complaint 10/27/2015 Constitutional No anorexia 09/21/2015 Constitutional No night sweats 09/21/2015 Constitutional No chills 09/21/2015 Constitutional No fever 09/21/2015 Constitutional No insomnia 09/21/2015 Ears/Nose/Throat/Neck No dizziness 09/21/2015 Ears/Nose/Throat/Neck No headache 09/21/2015 Cardiovascular No chest pain/pressure 09/21/2015 Cardiovascular No palpitations 09/21/2015 Respiratory No cough 09/21/2015 Gastrointestinal No abdominal pain 09/21/2015 Gastrointestinal No constipation 09/21/2015 Gastrointestinal No diarrhea 09/21/2015 Gastrointestinal No nausea 09/21/2015 Gastrointestinal No vomiting 09/21/2015 Musculoskeletal No swelling 09/21/2015 Neurologic No dizziness 09/21/2015 Psychiatric No anxiety 09/21/2015 Psychiatric depression 09/21/2015 Constitutional No anorexia 08/17/2015 Constitutional No night sweats 08/17/2015 Constitutional No chills 08/17/2015 Constitutional No fever 08/17/2015 Constitutional No insomnia 08/17/2015 Eyes No vision change 08/17/2015 Ears/Nose/Throat/Neck No dizziness 08/17/2015 Ears/Nose/Throat/Neck No headache 08/17/2015 Cardiovascular No chest pain/pressure 08/17/2015 Cardiovascular No palpitations 08/17/2015 Respiratory No cough 08/17/2015 Gastrointestinal No abdominal pain 08/17/2015 Gastrointestinal No constipation 08/17/2015 Gastrointestinal No diarrhea 08/17/2015 Gastrointestinal No nausea 08/17/2015 Gastrointestinal No vomiting 08/17/2015 Musculoskeletal No swelling 08/17/2015 Musculoskeletal joint complaint 08/17/2015 Neurologic No dizziness 08/17/2015 Psychiatric No anxiety 08/17/2015 Psychiatric depression 08/17/2015 Constitutional No anorexia 07/20/2015 Constitutional No night sweats 07/20/2015 Constitutional No chills 07/20/2015 Constitutional No fever 07/20/2015 Constitutional No insomnia 07/20/2015 Eyes No vision change 07/20/2015 Ears/Nose/Throat/Neck No dizziness 07/20/2015 Ears/Nose/Throat/Neck No headache 07/20/2015 Cardiovascular No chest pain/pressure 07/20/2015 Cardiovascular No palpitations 07/20/2015 Respiratory No cough 07/20/2015 Gastrointestinal No abdominal pain 07/20/2015 Gastrointestinal No constipation 07/20/2015 Gastrointestinal No diarrhea 07/20/2015 Gastrointestinal No nausea 07/20/2015 Gastrointestinal No vomiting 07/20/2015 Musculoskeletal No swelling 07/20/2015 Musculoskeletal joint complaint 07/20/2015 Neurologic No dizziness 07/20/2015 Psychiatric No anxiety 07/20/2015 Psychiatric depression 07/20/2015 Constitutional No anorexia 04/20/2015 Constitutional No night sweats 04/20/2015 Constitutional No chills 04/20/2015 Constitutional No fever 04/20/2015 Constitutional No insomnia 04/20/2015 Eyes No vision change 04/20/2015 Ears/Nose/Throat/Neck No dizziness 04/20/2015 Ears/Nose/Throat/Neck No headache 04/20/2015 Cardiovascular No chest pain/pressure 04/20/2015 Cardiovascular No palpitations 04/20/2015 Respiratory No cough 04/20/2015 Gastrointestinal No abdominal pain 04/20/2015 Gastrointestinal No constipation 04/20/2015 Gastrointestinal No diarrhea 04/20/2015 Gastrointestinal No nausea 04/20/2015 Gastrointestinal No vomiting 04/20/2015 Musculoskeletal No swelling 04/20/2015 Musculoskeletal joint complaint 04/20/2015 Neurologic No dizziness 04/20/2015 Psychiatric No anxiety 04/20/2015 Psychiatric depression 04/20/2015 Constitutional No recent illness 02/28/2015 Constitutional No anorexia 02/14/2015 Constitutional No night sweats 02/14/2015 Constitutional No chills 02/14/2015 Constitutional No fever 02/14/2015 Constitutional No insomnia 02/14/2015 Eyes No vision change 02/14/2015 Ears/Nose/Throat/Neck No dizziness 02/14/2015 Ears/Nose/Throat/Neck No headache 02/14/2015 Cardiovascular No chest pain/pressure 02/14/2015 Cardiovascular No palpitations 02/14/2015 Respiratory No cough 02/14/2015 Gastrointestinal No abdominal pain 02/14/2015 Gastrointestinal No constipation 02/14/2015 Gastrointestinal No diarrhea 02/14/2015 Gastrointestinal No nausea 02/14/2015 Gastrointestinal No vomiting 02/14/2015 Musculoskeletal No swelling 02/14/2015 Musculoskeletal joint complaint 02/14/2015 Neurologic No dizziness 02/14/2015 Psychiatric No anxiety 02/14/2015 Psychiatric depression 02/14/2015 Constitutional No anorexia 11/11/2014 Constitutional No night sweats 11/11/2014 Constitutional No chills 11/11/2014 Constitutional No fever 11/11/2014 Constitutional No insomnia 11/11/2014 Eyes No vision change 11/11/2014 Ears/Nose/Throat/Neck No dizziness 11/11/2014 Ears/Nose/Throat/Neck No headache 11/11/2014 Cardiovascular No chest pain/pressure 11/11/2014 Cardiovascular No palpitations 11/11/2014 Respiratory No cough 11/11/2014 Gastrointestinal No abdominal pain 11/11/2014 Gastrointestinal No constipation 11/11/2014 Gastrointestinal No diarrhea 11/11/2014 Gastrointestinal No nausea 11/11/2014 Gastrointestinal No vomiting 11/11/2014 Musculoskeletal No swelling 11/11/2014 Musculoskeletal joint complaint 11/11/2014 Neurologic No dizziness 11/11/2014 Psychiatric No anxiety 11/11/2014 Psychiatric depression 11/11/2014 Constitutional No insomnia 10/04/2014 Cardiovascular No dyspnea 10/04/2014 Cardiovascular No chest pain/pressure 10/04/2014 Respiratory No chest congestion 10/04/2014 Respiratory No cough 10/04/2014 Gastrointestinal No vomiting 10/04/2014 Gastrointestinal No nausea 10/04/2014 Gastrointestinal dyspepsia 10/04/2014 Gastrointestinal gastroesophageal reflux 10/04/2014 Musculoskeletal joint complaint 10/04/2014 Psychiatric No anxiety 10/04/2014 Respiratory dyspnea on exertion 10/04/2014 Dermatologic No rash 10/04/2014 Dermatologic No scar 10/04/2014 Dermatologic sores 10/04/2014 Constitutional No anorexia 10/04/2014 Constitutional No night sweats 10/04/2014 Constitutional No chills 10/04/2014 Constitutional No fever 10/04/2014 Eyes No vision change 10/04/2014 Ears/Nose/Throat/Neck No dizziness 10/04/2014 Ears/Nose/Throat/Neck No headache 10/04/2014 Cardiovascular No palpitations 10/04/2014 Gastrointestinal No abdominal pain 10/04/2014 Gastrointestinal No constipation 10/04/2014 Gastrointestinal No diarrhea 10/04/2014 Musculoskeletal No swelling 10/04/2014 Neurologic No dizziness 10/04/2014 Psychiatric depression 10/04/2014 Gastrointestinal dysphagia 10/04/2014 Constitutional No anorexia 08/02/2014 Constitutional No night sweats 08/02/2014 Constitutional No chills 08/02/2014 Constitutional No fever 08/02/2014 Constitutional No insomnia 08/02/2014 Eyes No vision change 08/02/2014 Ears/Nose/Throat/Neck No dizziness 08/02/2014 Ears/Nose/Throat/Neck No headache 08/02/2014 Cardiovascular No chest pain/pressure 08/02/2014 Cardiovascular No palpitations 08/02/2014 Respiratory No cough 08/02/2014 Gastrointestinal No abdominal pain 08/02/2014 Gastrointestinal No constipation 08/02/2014 Gastrointestinal No diarrhea 08/02/2014 Gastrointestinal No nausea 08/02/2014 Gastrointestinal No vomiting 08/02/2014 Musculoskeletal No swelling 08/02/2014 Musculoskeletal joint complaint 08/02/2014 Neurologic No dizziness 08/02/2014 Psychiatric No anxiety 08/02/2014 Psychiatric depression 08/02/2014 Constitutional No anorexia 06/15/2014 Constitutional No night sweats 06/15/2014 Constitutional No chills 06/15/2014 Constitutional No fever 06/15/2014 Constitutional No insomnia 06/15/2014 Eyes No vision change 06/15/2014 Ears/Nose/Throat/Neck No dizziness 06/15/2014 Ears/Nose/Throat/Neck No headache 06/15/2014 Cardiovascular No chest pain/pressure 06/15/2014 Cardiovascular No palpitations 06/15/2014 Respiratory No cough 06/15/2014 Gastrointestinal No abdominal pain 06/15/2014 Gastrointestinal No constipation 06/15/2014 Gastrointestinal No diarrhea 06/15/2014 Gastrointestinal No nausea 06/15/2014 Gastrointestinal No vomiting 06/15/2014 Musculoskeletal No swelling 06/15/2014 Neurologic No dizziness 06/15/2014 Psychiatric No anxiety 06/15/2014 Psychiatric depression 06/15/2014 Genitourinary/Nephrology No penile pain and discharge 06/15/2014 Genitourinary/Nephrology polyuria 06/15/2014 Constitutional No recent illness 05/04/2014 Constitutional No anorexia 05/04/2014 Constitutional No night sweats 05/04/2014 Constitutional No chills 05/04/2014 Constitutional No diaphoresis 05/04/2014 Constitutional No fever 05/04/2014 Gastrointestinal No constipation 05/04/2014 Gastrointestinal No diarrhea 05/04/2014 Gastrointestinal No vomiting 05/04/2014 Gastrointestinal No nausea 05/04/2014 Gastrointestinal No abdominal pain 05/04/2014 Genitourinary/Nephrology No dysuria 05/04/2014 Genitourinary/Nephrology No flank pain 05/04/2014 Genitourinary/Nephrology No urinary urgency 05/04/2014 Genitourinary/Nephrology No urinary frequency 05/04/2014 Dermatologic No rash 05/04/2014 Dermatologic No sores 05/04/2014 Respiratory No cough 05/04/2014 Constitutional No anorexia 04/19/2014 Constitutional No night sweats 04/19/2014 Constitutional No chills 04/19/2014 Constitutional No fever 04/19/2014 Constitutional No insomnia 04/19/2014 Eyes No vision change 04/19/2014 Ears/Nose/Throat/Neck No dizziness 04/19/2014 Ears/Nose/Throat/Neck No headache 04/19/2014 Cardiovascular No chest pain/pressure 04/19/2014 Cardiovascular No palpitations 04/19/2014 Respiratory No cough 04/19/2014 Gastrointestinal No abdominal pain 04/19/2014 Gastrointestinal No constipation 04/19/2014 Gastrointestinal No diarrhea 04/19/2014 Gastrointestinal No nausea 04/19/2014 Gastrointestinal No vomiting 04/19/2014 Musculoskeletal No swelling 04/19/2014 Musculoskeletal joint complaint 04/19/2014 Neurologic No dizziness 04/19/2014 Psychiatric No anxiety 04/19/2014 Psychiatric depression 04/19/2014 Constitutional No anorexia 02/08/2014 Constitutional No night sweats 02/08/2014 Constitutional No chills 02/08/2014 Constitutional No fever 02/08/2014 Constitutional No insomnia 02/08/2014 Eyes No vision change 02/08/2014 Ears/Nose/Throat/Neck No dizziness 02/08/2014 Ears/Nose/Throat/Neck No headache 02/08/2014 Cardiovascular No chest pain/pressure 02/08/2014 Cardiovascular No palpitations 02/08/2014 Respiratory No cough 02/08/2014 Gastrointestinal No abdominal pain 02/08/2014 Gastrointestinal No constipation 02/08/2014 Gastrointestinal No diarrhea 02/08/2014 Gastrointestinal No nausea 02/08/2014 Gastrointestinal No vomiting 02/08/2014 Musculoskeletal No swelling 02/08/2014 Neurologic No dizziness 02/08/2014 Psychiatric No anxiety 02/08/2014 Psychiatric depression 02/08/2014 Neurologic memory loss 02/08/2014 Constitutional No anorexia 01/13/2014 Constitutional No night sweats 01/13/2014 Constitutional No chills 01/13/2014 Constitutional No fever 01/13/2014 Constitutional No insomnia 01/13/2014 Eyes No vision change 01/13/2014 Ears/Nose/Throat/Neck No dizziness 01/13/2014 Ears/Nose/Throat/Neck No headache 01/13/2014 Cardiovascular No chest pain/pressure 01/13/2014 Cardiovascular No palpitations 01/13/2014 Respiratory No cough 01/13/2014 Gastrointestinal No abdominal pain 01/13/2014 Gastrointestinal No constipation 01/13/2014 Gastrointestinal No diarrhea 01/13/2014 Gastrointestinal No nausea 01/13/2014 Gastrointestinal No vomiting 01/13/2014 Musculoskeletal No swelling 01/13/2014 Musculoskeletal joint complaint 01/13/2014 Neurologic No dizziness 01/13/2014 Psychiatric No anxiety 01/13/2014 Psychiatric depression 01/13/2014 Constitutional No anorexia 10/14/2013 Constitutional No night sweats 10/14/2013 Constitutional No chills 10/14/2013 Constitutional No fever 10/14/2013 Constitutional No insomnia 10/14/2013 Eyes No vision change 10/14/2013 Ears/Nose/Throat/Neck No dizziness 10/14/2013 Ears/Nose/Throat/Neck No headache 10/14/2013 Cardiovascular No chest pain/pressure 10/14/2013 Cardiovascular No palpitations 10/14/2013 Respiratory No cough 10/14/2013 Gastrointestinal No abdominal pain 10/14/2013 Gastrointestinal No constipation 10/14/2013 Gastrointestinal No diarrhea 10/14/2013 Gastrointestinal No nausea 10/14/2013 Gastrointestinal No vomiting 10/14/2013 Musculoskeletal No swelling 10/14/2013 Neurologic No dizziness 10/14/2013 Psychiatric No anxiety 10/14/2013 Psychiatric depression 10/14/2013 Constitutional No anorexia 07/01/2013 Constitutional No night sweats 07/01/2013 Constitutional No chills 07/01/2013 Constitutional No fever 07/01/2013 Constitutional No insomnia 07/01/2013 Eyes No vision change 07/01/2013 Ears/Nose/Throat/Neck No dizziness 07/01/2013 Ears/Nose/Throat/Neck No headache 07/01/2013 Cardiovascular No chest pain/pressure 07/01/2013 Cardiovascular No palpitations 07/01/2013 Respiratory No cough 07/01/2013 Gastrointestinal No abdominal pain 07/01/2013 Gastrointestinal No constipation 07/01/2013 Gastrointestinal No diarrhea 07/01/2013 Gastrointestinal No nausea 07/01/2013 Gastrointestinal No vomiting 07/01/2013 Musculoskeletal No swelling 07/01/2013 Neurologic No dizziness 07/01/2013 Psychiatric No anxiety 07/01/2013 Psychiatric depression 07/01/2013 Musculoskeletal joint complaint 07/01/2013 Constitutional No anorexia 03/04/2013 Constitutional No night sweats 03/04/2013 Constitutional No chills 03/04/2013 Constitutional No fever 03/04/2013 Constitutional No insomnia 03/04/2013 Eyes No vision change 03/04/2013 Ears/Nose/Throat/Neck No dizziness 03/04/2013 Ears/Nose/Throat/Neck No headache 03/04/2013 Cardiovascular No chest pain/pressure 03/04/2013 Cardiovascular No palpitations 03/04/2013 Respiratory No cough 03/04/2013 Gastrointestinal No abdominal pain 03/04/2013 Gastrointestinal No constipation 03/04/2013 Gastrointestinal No diarrhea 03/04/2013 Gastrointestinal No nausea 03/04/2013 Gastrointestinal No vomiting 03/04/2013 Musculoskeletal No swelling 03/04/2013 Neurologic No dizziness 03/04/2013 Psychiatric No anxiety 03/04/2013 Psychiatric depression 03/04/2013 Constitutional No anorexia 02/04/2013 Constitutional No night sweats 02/04/2013 Constitutional No chills 02/04/2013 Constitutional No fever 02/04/2013 Constitutional No insomnia 02/04/2013 Eyes No vision change 02/04/2013 Ears/Nose/Throat/Neck No dizziness 02/04/2013 Ears/Nose/Throat/Neck No headache 02/04/2013 Cardiovascular No chest pain/pressure 02/04/2013 Cardiovascular No palpitations 02/04/2013 Respiratory No cough 02/04/2013 Gastrointestinal No abdominal pain 02/04/2013 Gastrointestinal No constipation 02/04/2013 Gastrointestinal No diarrhea 02/04/2013 Gastrointestinal No nausea 02/04/2013 Gastrointestinal No vomiting 02/04/2013 Musculoskeletal No swelling 02/04/2013 Neurologic No dizziness 02/04/2013 Psychiatric No anxiety 02/04/2013 Psychiatric No depression 02/04/2013 Constitutional No anorexia 12/03/2012 Constitutional No night sweats 12/03/2012 Constitutional No chills 12/03/2012 Constitutional No fever 12/03/2012 Constitutional No insomnia 12/03/2012 Cardiovascular No chest pain/pressure 12/03/2012 Cardiovascular No palpitations 12/03/2012 Respiratory No cough 12/03/2012 Gastrointestinal No abdominal pain 12/03/2012 Gastrointestinal No constipation 12/03/2012 Gastrointestinal No diarrhea 12/03/2012 Gastrointestinal No nausea 12/03/2012 Gastrointestinal No vomiting 12/03/2012 Psychiatric No anxiety 12/03/2012 Psychiatric No depression 12/03/2012 Constitutional No recent illness 10/14/2012 Constitutional No anorexia 10/14/2012 Constitutional No night sweats 10/14/2012 Constitutional No chills 10/14/2012 Constitutional No diaphoresis 10/14/2012 Constitutional No fatigue 10/14/2012 Constitutional No fever 10/14/2012 Constitutional No insomnia 10/14/2012 Eyes No eye discharge 10/14/2012 Eyes No eye erythema 10/14/2012 Cardiovascular No chest pain/pressure 10/14/2012 Respiratory No productive sputum 10/14/2012 Respiratory No cough 10/14/2012 Gastrointestinal No vomiting 10/14/2012 Gastrointestinal No nausea 10/14/2012 Genitourinary/Nephrology No dysuria 10/14/2012 Constitutional No recent illness 09/29/2012 Constitutional No anorexia 09/29/2012 Constitutional No night sweats 09/29/2012 Constitutional No chills 09/29/2012 Constitutional No diaphoresis 09/29/2012 Constitutional No fatigue 09/29/2012 Constitutional No fever 09/29/2012 Constitutional No insomnia 09/29/2012 Constitutional No malaise 09/29/2012 Constitutional No recent illness 09/25/2012 Constitutional No anorexia 09/25/2012 Constitutional No night sweats 09/25/2012 Constitutional No chills 09/25/2012 Constitutional No diaphoresis 09/25/2012 Constitutional No fatigue 09/25/2012 Constitutional No fever 09/25/2012 Constitutional No insomnia 09/25/2012 Constitutional No malaise 09/25/2012 Constitutional No anorexia 08/27/2012 Constitutional No night sweats 08/27/2012 Constitutional No chills 08/27/2012 Constitutional No fever 08/27/2012 Constitutional No insomnia 08/27/2012 Eyes No vision change 08/27/2012 Ears/Nose/Throat/Neck No dizziness 08/27/2012 Ears/Nose/Throat/Neck No headache 08/27/2012 Cardiovascular No chest pain/pressure 08/27/2012 Cardiovascular No palpitations 08/27/2012 Respiratory No cough 08/27/2012 Gastrointestinal No abdominal pain 08/27/2012 Gastrointestinal No constipation 08/27/2012 Gastrointestinal No diarrhea 08/27/2012 Gastrointestinal No nausea 08/27/2012 Gastrointestinal No vomiting 08/27/2012 Musculoskeletal No swelling 08/27/2012 Neurologic No dizziness 08/27/2012 Psychiatric No anxiety 08/27/2012 Psychiatric No depression 08/27/2012 Constitutional No anorexia 06/25/2012 Constitutional No night sweats 06/25/2012 Constitutional No chills 06/25/2012 Constitutional No fever 06/25/2012 Constitutional No insomnia 06/25/2012 Eyes No vision change 06/25/2012 Ears/Nose/Throat/Neck No dizziness 06/25/2012 Ears/Nose/Throat/Neck No headache 06/25/2012 Cardiovascular No chest pain/pressure 06/25/2012 Cardiovascular No palpitations 06/25/2012 Respiratory No cough 06/25/2012 Gastrointestinal No abdominal pain 06/25/2012 Gastrointestinal No constipation 06/25/2012 Gastrointestinal No diarrhea 06/25/2012 Gastrointestinal No nausea 06/25/2012 Gastrointestinal No vomiting 06/25/2012 Musculoskeletal No swelling 06/25/2012 Neurologic No dizziness 06/25/2012 Psychiatric No anxiety 06/25/2012 Psychiatric No depression 06/25/2012 Constitutional No anorexia 06/03/2012 Constitutional No night sweats 06/03/2012 Constitutional No chills 06/03/2012 Constitutional No fever 06/03/2012 Constitutional No insomnia 06/03/2012 Eyes No vision change 06/03/2012 Ears/Nose/Throat/Neck No dizziness 06/03/2012 Ears/Nose/Throat/Neck No headache 06/03/2012 Cardiovascular No chest pain/pressure 06/03/2012 Cardiovascular No palpitations 06/03/2012 Respiratory No cough 06/03/2012 Gastrointestinal No abdominal pain 06/03/2012 Gastrointestinal No constipation 06/03/2012 Gastrointestinal No diarrhea 06/03/2012 Gastrointestinal No nausea 06/03/2012 Gastrointestinal No vomiting 06/03/2012 Musculoskeletal No swelling 06/03/2012 Neurologic No dizziness 06/03/2012 Psychiatric No anxiety 06/03/2012 Psychiatric No depression 06/03/2012 Constitutional No anorexia 04/24/2012 Constitutional No night sweats 04/24/2012 Constitutional No chills 04/24/2012 Constitutional No fever 04/24/2012 Constitutional No insomnia 04/24/2012 Eyes No vision change 04/24/2012 Ears/Nose/Throat/Neck No dizziness 04/24/2012 Ears/Nose/Throat/Neck No headache 04/24/2012 Cardiovascular No chest pain/pressure 04/24/2012 Cardiovascular No palpitations 04/24/2012 Respiratory No cough 04/24/2012 Gastrointestinal No abdominal pain 04/24/2012 Gastrointestinal No constipation 04/24/2012 Gastrointestinal No diarrhea 04/24/2012 Gastrointestinal No nausea 04/24/2012 Gastrointestinal No vomiting 04/24/2012 Musculoskeletal No swelling 04/24/2012 Neurologic No dizziness 04/24/2012 Psychiatric No anxiety 04/24/2012 Psychiatric No depression 04/24/2012 Eyes No vision change 04/09/2012 Ears/Nose/Throat/Neck No dizziness 04/09/2012 Ears/Nose/Throat/Neck No headache 04/09/2012 Cardiovascular No chest pain/pressure 04/09/2012 Cardiovascular No palpitations 04/09/2012 Respiratory No cough 04/09/2012 Gastrointestinal No abdominal pain 04/09/2012 Gastrointestinal No constipation 04/09/2012 Gastrointestinal No diarrhea 04/09/2012 Gastrointestinal No nausea 04/09/2012 Gastrointestinal No vomiting 04/09/2012 Neurologic No dizziness 04/09/2012 Psychiatric No anxiety 04/09/2012 Psychiatric No depression 04/09/2012 Constitutional No anorexia 04/09/2012 Constitutional No night sweats 04/09/2012 Constitutional No chills 04/09/2012 Constitutional No fever 04/09/2012 Constitutional No insomnia 04/09/2012 Constitutional No night sweats 03/04/2012 Constitutional No chills 03/04/2012 Constitutional No anorexia 03/04/2012 Constitutional No fever 03/04/2012 Constitutional No insomnia 03/04/2012 Eyes No vision change 03/04/2012 Ears/Nose/Throat/Neck No dizziness 03/04/2012 Ears/Nose/Throat/Neck No headache 03/04/2012 Cardiovascular No chest pain/pressure 03/04/2012 Cardiovascular No palpitations 03/04/2012 Respiratory No cough 03/04/2012 Gastrointestinal No abdominal pain 03/04/2012 Gastrointestinal No constipation 03/04/2012 Gastrointestinal No diarrhea 03/04/2012 Gastrointestinal No nausea 03/04/2012 Gastrointestinal No vomiting 03/04/2012 Musculoskeletal No swelling 03/04/2012 Neurologic No dizziness 03/04/2012 Psychiatric No anxiety 03/04/2012 Psychiatric No depression 03/04/2012 Constitutional No night sweats 12/03/2011 Constitutional No chills 12/03/2011 Constitutional No anorexia 12/03/2011 Constitutional No fever 12/03/2011 Constitutional No insomnia 12/03/2011 Eyes No vision change 12/03/2011 Ears/Nose/Throat/Neck No dizziness 12/03/2011 Ears/Nose/Throat/Neck No headache 12/03/2011 Cardiovascular No chest pain/pressure 12/03/2011 Cardiovascular No palpitations 12/03/2011 Respiratory No cough 12/03/2011 Gastrointestinal No abdominal pain 12/03/2011 Gastrointestinal No constipation 12/03/2011 Gastrointestinal No diarrhea 12/03/2011 Gastrointestinal No nausea 12/03/2011 Gastrointestinal No vomiting 12/03/2011 Musculoskeletal No swelling 12/03/2011 Dermatologic sores 12/03/2011 Neurologic No dizziness 12/03/2011 Psychiatric No anxiety 12/03/2011 Psychiatric No depression 12/03/2011 Constitutional No chills 10/31/2011 Ears/Nose/Throat/Neck No dizziness 10/31/2011 Ears/Nose/Throat/Neck No headache 10/31/2011 Cardiovascular No palpitations 10/31/2011 Gastrointestinal No vomiting 10/31/2011 Gastrointestinal No nausea 10/31/2011 Gastrointestinal No diarrhea 10/31/2011 Gastrointestinal No constipation 10/31/2011 Constitutional No fever 10/31/2011 Constitutional No night sweats 10/31/2011 Eyes No vision change 10/31/2011 Cardiovascular No chest pain/pressure 10/31/2011 Constitutional No anorexia 10/31/2011 Constitutional No insomnia 10/31/2011 Respiratory No cough 10/31/2011 Gastrointestinal No abdominal pain 10/31/2011 Musculoskeletal No swelling 10/31/2011 Dermatologic sores 10/31/2011 Neurologic No dizziness 10/31/2011 Psychiatric No anxiety 10/31/2011 Psychiatric No depression 10/31/2011 Constitutional No night sweats 08/29/2011 Constitutional No anorexia 08/29/2011 Constitutional No fever 08/29/2011 Constitutional No insomnia 08/29/2011 Eyes No vision change 08/29/2011 Cardiovascular No chest pain/pressure 08/29/2011 Respiratory No cough 08/29/2011 Gastrointestinal No abdominal pain 08/29/2011 Musculoskeletal No swelling 08/29/2011 Dermatologic sores 08/29/2011 Neurologic No dizziness 08/29/2011 Psychiatric No anxiety 08/29/2011 Psychiatric No depression 08/29/2011 Constitutional No night sweats 07/24/2011 Constitutional No fatigue 07/24/2011 Constitutional No fever 07/24/2011 Dermatologic No rash 07/24/2011 Dermatologic sores 07/24/2011 Dermatologic mole change 07/24/2011 Dermatologic actinic keratosis 07/24/2011 Constitutional No night sweats 07/18/2011 Constitutional No anorexia 07/18/2011 Constitutional No fever 07/18/2011 Constitutional No insomnia 07/18/2011 Eyes No vision change 07/18/2011 Psychiatric No anxiety 07/18/2011 Psychiatric No depression 07/18/2011 Neurologic No dizziness 07/18/2011 Dermatologic sores 07/18/2011 Musculoskeletal No swelling 07/18/2011 Respiratory No cough 07/18/2011 Cardiovascular No chest pain/pressure 07/18/2011 Gastrointestinal No abdominal pain 07/18/2011 Physical Exam Exam Name System Name Item Name Status Result Effective Dates Notes Full Exam - General 1994 Constitutional general appearance Overall: well developed 01/08/2019 None Full Exam - General 1994 Constitutional general appearance Overall: in no acute distress 01/08/2019 None Full Exam - General 1994 Constitutional general appearance Overall: well nourished 01/08/2019 None Full Exam - General 1994 Eyes pupils and irises Overall: pupils equal, round, reactive to light and accomodation 01/08/2019 None Full Exam - General 1994 Ears/Nose/Throat oral cavity/pharynx/larynx Overall: oral mucosa clear 01/08/2019 None Full Exam - General 1994 Ears/Nose/Throat oral cavity/pharynx/larynx Overall: oropharyngeal mucosa clear 01/08/2019 None Full Exam - General 1994 Ears/Nose/Throat oral cavity/pharynx/larynx Overall: no masses 01/08/2019 None Full Exam - General 1994 Respiratory auscultation Overall: breath sounds clear bilaterally 01/08/2019 None Full Exam - General 1994 Respiratory respiratory effort/rhythm Overall: no retractions 01/08/2019 None Full Exam - General 1994 Respiratory respiratory effort/rhythm Overall: normal rate 01/08/2019 None Full Exam - General 1994 Cardiovascular auscultation of heart Overall: regular rate 01/08/2019 None Full Exam - General 1994 Cardiovascular auscultation of heart Overall: normal heart sounds 01/08/2019 None Full Exam - General 1994 Cardiovascular auscultation of heart Overall: no murmurs 01/08/2019 None Full Exam - General 1994 Abdomen abdominal exam Contour: rounded 01/08/2019 None Full Exam - General 1994 Abdomen abdominal exam Contour: protuberant 01/08/2019 None Full Exam - General 1994 Abdomen abdominal exam Periumbilical: mass present 01/08/2019 around umbilicus the patient has hardened hematoma, nontender, not reducible Full Exam - General 1994 Musculoskeletal head and neck Overall: head atraumatic 01/08/2019 None Full Exam - General 1994 Musculoskeletal head and neck Overall: cervical spine benign 01/08/2019 None Full Exam - General 1994 Integument inspection of skin Pigmentation: ecchymosis 01/08/2019 left lower abdomen Full Exam - General 1994 Neurologic sensation Touch: (specify location of deficit): light touch decreased on plantar surface of feet bilaterally and great toes bilaterally 01/08/2019 None Full Exam - General 1994 Neurologic sensation Touch: (specify location of deficit): vibration intact on great toes, decreased on lateral right and left feet 01/08/2019 None Full Exam - General 1994 Neurologic gait Conventional walking: wide-based 01/08/2019 None Full Exam - General 1994 Neurologic coordination Tremors: resting 01/08/2019 None Full Exam - General 1994 Psychiatric orientation/consciousness Overall: oriented to person, place and time 01/08/2019 None Full Exam - General 1994 Psychiatric mood and affect Overall: normal mood and affect 01/08/2019 None Full Exam - General 1994 Constitutional general appearance Overall: well developed 10/09/2018 None Full Exam - General 1994 Constitutional general appearance Overall: in no acute distress 10/09/2018 None Full Exam - General 1994 Constitutional general appearance Overall: well nourished 10/09/2018 None Full Exam - General 1994 Eyes pupils and irises Overall: pupils equal, round, reactive to light and accomodation 10/09/2018 None Full Exam - General 1994 Ears/Nose/Throat oral cavity/pharynx/larynx Overall: oral mucosa clear 10/09/2018 None Full Exam - General 1994 Ears/Nose/Throat oral cavity/pharynx/larynx Overall: oropharyngeal mucosa clear 10/09/2018 None Full Exam - General 1994 Ears/Nose/Throat oral cavity/pharynx/larynx Overall: no masses 10/09/2018 None Full Exam - General 1994 Respiratory auscultation Overall: breath sounds clear bilaterally 10/09/2018 None Full Exam - General 1994 Respiratory respiratory effort/rhythm Overall: no retractions 10/09/2018 None Full Exam - General 1994 Respiratory respiratory effort/rhythm Overall: normal rate 10/09/2018 None Full Exam - General 1994 Cardiovascular auscultation of heart Overall: regular rate 10/09/2018 None Full Exam - General 1994 Cardiovascular auscultation of heart Overall: normal heart sounds 10/09/2018 None Full Exam - General 1994 Cardiovascular auscultation of heart Overall: no murmurs 10/09/2018 None Full Exam - General 1994 Abdomen abdominal exam Contour: rounded 10/09/2018 None Full Exam - General 1994 Abdomen abdominal exam Contour: protuberant 10/09/2018 None Full Exam - General 1994 Abdomen abdominal exam Periumbilical: mass present 10/09/2018 around umbilicus the patient has hardened hematoma, nontender, not reducible Full Exam - General 1994 Musculoskeletal head and neck Overall: head atraumatic 10/09/2018 None Full Exam - General 1994 Musculoskeletal head and neck Overall: cervical spine benign 10/09/2018 None Full Exam - General 1994 Integument inspection of skin Pigmentation: ecchymosis 10/09/2018 left lower abdomen Full Exam - General 1994 Neurologic sensation Touch: (specify location of deficit): light touch decreased on plantar surface of feet bilaterally and great toes bilaterally 10/09/2018 None Full Exam - General 1994 Neurologic sensation Touch: (specify location of deficit): vibration intact on great toes, decreased on lateral right and left feet 10/09/2018 None Full Exam - General 1994 Neurologic gait Conventional walking: wide-based 10/09/2018 None Full Exam - General 1994 Neurologic coordination Tremors: resting 10/09/2018 None Full Exam - General 1994 Psychiatric orientation/consciousness Overall: oriented to person, place and time 10/09/2018 None Full Exam - General 1994 Psychiatric mood and affect Overall: normal mood and affect 10/09/2018 None Full Exam - General 1994 Constitutional general appearance Overall: well developed 07/07/2018 None Full Exam - General 1994 Constitutional general appearance Overall: in no acute distress 07/07/2018 None Full Exam - General 1994 Constitutional general appearance Overall: well nourished 07/07/2018 None Full Exam - General 1994 Eyes pupils and irises Overall: pupils equal, round, reactive to light and accomodation 07/07/2018 None Full Exam - General 1994 Ears/Nose/Throat oral cavity/pharynx/larynx Overall: oral mucosa clear 07/07/2018 None Full Exam - General 1995 Ears/Nose/Throat oral cavity/pharynx/larynx Overall: oropharyngeal mucosa clear 07/07/2018 None Full Exam - General 1994 Ears/Nose/Throat oral cavity/pharynx/larynx Overall: no masses 07/07/2018 None Full Exam - General 1994 Respiratory auscultation Overall: breath sounds clear bilaterally 07/07/2018 None Full Exam - General 1994 Respiratory respiratory effort/rhythm Overall: no retractions 07/07/2018 None Full Exam - General 1994 Respiratory respiratory effort/rhythm Overall: normal rate 07/07/2018 None Full Exam - General 1994 Cardiovascular auscultation of heart Overall: regular rate 07/07/2018 None Full Exam - General 1994 Cardiovascular auscultation of heart Overall: normal heart sounds 07/07/2018 None Full Exam - General 1994 Cardiovascular auscultation of heart Overall: no murmurs 07/07/2018 None Full Exam - General 1994 Abdomen abdominal exam Contour: rounded 07/07/2018 None Full Exam - General 1994 Abdomen abdominal exam Contour: protuberant 07/07/2018 None Full Exam - General 1994 Abdomen abdominal exam Periumbilical: mass present 07/07/2018 around umbilicus the patient has hardened hematoma, nontender, not reducible Full Exam - General 1994 Musculoskeletal head and neck Overall: head atraumatic 07/07/2018 None Full Exam - General 1994 Musculoskeletal head and neck Overall: cervical spine benign 07/07/2018 None Full Exam - General 1994 Neurologic sensation Touch: (specify location of deficit): light touch decreased on plantar surface of feet bilaterally and great toes bilaterally 07/07/2018 None Full Exam - General 1994 Neurologic sensation Touch: (specify location of deficit): vibration intact on great toes, decreased on lateral right and left feet 07/07/2018 None Full Exam - General 1994 Neurologic gait Conventional walking: wide-based 07/07/2018 None Full Exam - General 1994 Neurologic coordination Tremors: resting 07/07/2018 None Full Exam - General 1994 Psychiatric orientation/consciousness Overall: oriented to person, place and time 07/07/2018 None Full Exam - General 1994 Psychiatric mood and affect Overall: normal mood and affect 07/07/2018 None Full Exam - General 1994 Integument inspection of skin Pigmentation: ecchymosis 07/07/2018 left lower abdomen Full Exam - General 1994 Constitutional general appearance Overall: well developed 05/21/2018 None Full Exam - General 1994 Constitutional general appearance Overall: in no acute distress 05/21/2018 None Full Exam - General 1994 Constitutional general appearance Overall: well nourished 05/21/2018 None Full Exam - General 1994 Eyes pupils and irises Overall: pupils equal, round, reactive to light and accomodation 05/21/2018 None Full Exam - General 1994 Ears/Nose/Throat oral cavity/pharynx/larynx Overall: oral mucosa clear 05/21/2018 None Full Exam - General 1994 Ears/Nose/Throat oral cavity/pharynx/larynx Overall: oropharyngeal mucosa clear 05/21/2018 None Full Exam - General 1994 Ears/Nose/Throat oral cavity/pharynx/larynx Overall: no masses 05/21/2018 None Full Exam - General 1994 Respiratory auscultation Overall: breath sounds clear bilaterally 05/21/2018 None Full Exam - General 1994 Respiratory respiratory effort/rhythm Overall: no retractions 05/21/2018 None Full Exam - General 1994 Respiratory respiratory effort/rhythm Overall: normal rate 05/21/2018 None Full Exam - General 1994 Cardiovascular auscultation of heart Overall: regular rate 05/21/2018 None Full Exam - General 1994 Cardiovascular auscultation of heart Overall: normal heart sounds 05/21/2018 None Full Exam - General 1994 Cardiovascular auscultation of heart Overall: no murmurs 05/21/2018 None Full Exam - General 1994 Abdomen abdominal exam Contour: rounded 05/21/2018 None Full Exam - General 1994 Abdomen abdominal exam Contour: protuberant 05/21/2018 None Full Exam - General 1994 Abdomen abdominal exam Periumbilical: mass present 05/21/2018 around umbilicus the patient has hardened hematoma, nontender, not reducible Full Exam - General 1994 Musculoskeletal head and neck Overall: head atraumatic 05/21/2018 None Full Exam - General 1994 Musculoskeletal head and neck Overall: cervical spine benign 05/21/2018 None Full Exam - General 1994 Neurologic gait Conventional walking: wide-based 05/21/2018 None Full Exam - General 1994 Neurologic coordination Tremors: resting 05/21/2018 None Full Exam - General 1994 Psychiatric orientation/consciousness Overall: oriented to person, place and time 05/21/2018 None Full Exam - General 1994 Psychiatric mood and affect Overall: normal mood and affect 05/21/2018 None Full Exam - General 1994 Abdomen rectal exam Prostate: enlarged 05/21/2018 - no nodules - Full Exam - General 1994 Neurologic cranial nerves Overall: crainial nerves 2 - 12 grossly intact 05/21/2018 None Full Exam - General 1994 Neurologic motor Appearance: normal bulk 05/21/2018 None Full Exam - General 1994 Neurologic motor Appearance: tremor 05/21/2018 very faint tremor - no cogwheeling noted. Full Exam - General 1994 Constitutional general appearance Overall: well developed 03/06/2018 None Full Exam - General 1994 Constitutional general appearance Overall: in no acute distress 03/06/2018 None Full Exam - General 1994 Constitutional general appearance Overall: well nourished 03/06/2018 None Full Exam - General 1994 Eyes pupils and irises Overall: pupils equal, round, reactive to light and accomodation 03/06/2018 None Full Exam - General 1994 Ears/Nose/Throat oral cavity/pharynx/larynx Overall: oral mucosa clear 03/06/2018 None Full Exam - General 1994 Ears/Nose/Throat oral cavity/pharynx/larynx Overall: oropharyngeal mucosa clear 03/06/2018 None Full Exam - General 1994 Ears/Nose/Throat oral cavity/pharynx/larynx Overall: no masses 03/06/2018 None Full Exam - General 1994 Respiratory auscultation Overall: breath sounds clear bilaterally 03/06/2018 None Full Exam - General 1994 Respiratory respiratory effort/rhythm Overall: no retractions 03/06/2018 None Full Exam - General 1994 Respiratory respiratory effort/rhythm Overall: normal rate 03/06/2018 None Full Exam - General 1994 Cardiovascular auscultation of heart Overall: regular rate 03/06/2018 None Full Exam - General 1994 Cardiovascular auscultation of heart Overall: normal heart sounds 03/06/2018 None Full Exam - General 1994 Cardiovascular auscultation of heart Overall: no murmurs 03/06/2018 None Full Exam - General 1994 Abdomen abdominal exam Contour: rounded 03/06/2018 None Full Exam - General 1994 Abdomen abdominal exam Contour: protuberant 03/06/2018 None Full Exam - General 1994 Abdomen abdominal exam Periumbilical: mass present 03/06/2018 around umbilicus the patient has hardened hematoma, nontender, not reducible Full Exam - General 1994 Musculoskeletal head and neck Overall: head atraumatic 03/06/2018 None Full Exam - General 1994 Musculoskeletal head and neck Overall: cervical spine benign 03/06/2018 None Full Exam - General 1994 Neurologic gait Conventional walking: wide-based 03/06/2018 None Full Exam - General 1994 Neurologic coordination Tremors: resting 03/06/2018 None Full Exam - General 1994 Psychiatric orientation/consciousness Overall: oriented to person, place and time 03/06/2018 None Full Exam - General 1994 Psychiatric mood and affect Overall: normal mood and affect 03/06/2018 None Full Exam - General 1994 Neurologic sensation Touch: (specify location of deficit): light touch decreased on plantar surface of feet bilaterally and great toes bilaterally 03/06/2018 None Full Exam - General 1994 Neurologic sensation Touch: (specify location of deficit): vibration intact on great toes, decreased on lateral right and left feet 03/06/2018 None Full Exam - General 1994 Constitutional general appearance Overall: well developed 12/24/2017 None Full Exam - General 1994 Constitutional general appearance Overall: in no acute distress 12/24/2017 None Full Exam - General 1994 Constitutional general appearance Overall: well nourished 12/24/2017 None Full Exam - General 1994 Eyes conjunctiva/eyelids Overall: conjunctiva clear 12/24/2017 None Full Exam - General 1994 Eyes conjunctiva/eyelids Overall: eyelids normal 12/24/2017 None Full Exam - General 1994 Ears/Nose/Throat lips/teeth/gingiva Overall: benign lips 12/24/2017 None Full Exam - General 1994 Respiratory respiratory effort/rhythm Overall: no retractions 12/24/2017 None Full Exam - General 1994 Respiratory respiratory effort/rhythm Overall: normal rate 12/24/2017 None Full Exam - General 1994 Musculoskeletal head and neck Overall: head atraumatic 12/24/2017 None Full Exam - General 1994 Neurologic cranial nerves Overall: crainial nerves 2 - 12 grossly intact 12/24/2017 None Full Exam - General 1994 Psychiatric orientation/consciousness Overall: oriented to person, place and time 12/24/2017 None Full Exam - General 1994 Psychiatric mood and affect Overall: normal mood and affect 12/24/2017 None Full Exam - General 1994 Psychiatric appearance Overall: well-groomed, good eye contact 12/24/2017 None Full Exam - General 1994 Constitutional general appearance Overall: well developed 11/21/2017 None Full Exam - General 1994 Constitutional general appearance Overall: in no acute distress 11/21/2017 None Full Exam - General 1994 Constitutional general appearance Overall: well nourished 11/21/2017 None Full Exam - General 1994 Eyes pupils and irises Overall: pupils equal, round, reactive to light and accomodation 11/21/2017 None Full Exam - General 1994 Ears/Nose/Throat oral cavity/pharynx/larynx Overall: oral mucosa clear 11/21/2017 None Full Exam - General 1994 Ears/Nose/Throat oral cavity/pharynx/larynx Overall: oropharyngeal mucosa clear 11/21/2017 None Full Exam - General 1994 Ears/Nose/Throat oral cavity/pharynx/larynx Overall: no masses 11/21/2017 None Full Exam - General 1994 Respiratory auscultation Overall: breath sounds clear bilaterally 11/21/2017 None Full Exam - General 1994 Respiratory respiratory effort/rhythm Overall: no retractions 11/21/2017 None Full Exam - General 1994 Respiratory respiratory effort/rhythm Overall: normal rate 11/21/2017 None Full Exam - General 1994 Cardiovascular auscultation of heart Overall: regular rate 11/21/2017 None Full Exam - General 1994 Cardiovascular auscultation of heart Overall: normal heart sounds 11/21/2017 None Full Exam - General 1994 Cardiovascular auscultation of heart Overall: no murmurs 11/21/2017 None Full Exam - General 1994 Abdomen abdominal exam Contour: rounded 11/21/2017 None Full Exam - General 1994 Abdomen abdominal exam Contour: protuberant 11/21/2017 None Full Exam - General 1994 Abdomen abdominal exam Periumbilical: mass present 11/21/2017 around umbilicus the patient has hardened hematoma, nontender, not reducible Full Exam - General 1994 Musculoskeletal head and neck Overall: head atraumatic 11/21/2017 None Full Exam - General 1994 Musculoskeletal head and neck Overall: cervical spine benign 11/21/2017 None Full Exam - General 1994 Neurologic gait Conventional walking: wide-based 11/21/2017 None Full Exam - General 1994 Neurologic coordination Tremors: resting 11/21/2017 None Full Exam - General 1994 Psychiatric orientation/consciousness Overall: oriented to person, place and time 11/21/2017 None Full Exam - General 1994 Psychiatric mood and affect Overall: normal mood and affect 11/21/2017 None Full Exam - General 1994 Constitutional general appearance Overall: well developed 07/29/2017 None Full Exam - General 1994 Constitutional general appearance Overall: in no acute distress 07/29/2017 None Full Exam - General 1994 Constitutional general appearance Overall: well nourished 07/29/2017 None Full Exam - General 1994 Eyes pupils and irises Overall: pupils equal, round, reactive to light and accomodation 07/29/2017 None Full Exam - General 1994 Ears/Nose/Throat oral cavity/pharynx/larynx Overall: oral mucosa clear 07/29/2017 None Full Exam - General 1994 Ears/Nose/Throat oral cavity/pharynx/larynx Overall: oropharyngeal mucosa clear 07/29/2017 None Full Exam - General 1994 Ears/Nose/Throat oral cavity/pharynx/larynx Overall: no masses 07/29/2017 None Full Exam - General 1994 Respiratory auscultation Overall: breath sounds clear bilaterally 07/29/2017 None Full Exam - General 1994 Respiratory respiratory effort/rhythm Overall: no retractions 07/29/2017 None Full Exam - General 1994 Respiratory respiratory effort/rhythm Overall: normal rate 07/29/2017 None Full Exam - General 1994 Cardiovascular auscultation of heart Overall: regular rate 07/29/2017 None Full Exam - General 1994 Cardiovascular auscultation of heart Overall: normal heart sounds 07/29/2017 None Full Exam - General 1994 Cardiovascular auscultation of heart Overall: no murmurs 07/29/2017 None Full Exam - General 1994 Abdomen abdominal exam Contour: rounded 07/29/2017 None Full Exam - General 1994 Abdomen abdominal exam Contour: protuberant 07/29/2017 None Full Exam - General 1994 Musculoskeletal head and neck Overall: head atraumatic 07/29/2017 None Full Exam - General 1994 Musculoskeletal head and neck Overall: cervical spine benign 07/29/2017 None Full Exam - General 1994 Neurologic gait Conventional walking: wide-based 07/29/2017 None Full Exam - General 1994 Neurologic coordination Tremors: resting 07/29/2017 None Full Exam - General 1994 Psychiatric orientation/consciousness Overall: oriented to person, place and time 07/29/2017 None Full Exam - General 1994 Psychiatric mood and affect Overall: normal mood and affect 07/29/2017 None Full Exam - General 1994 Abdomen abdominal exam Periumbilical: mass present 07/29/2017 around umbilicus the patient has hardened hematoma, nontender, not reducible Full Exam - Dermatology Constitutional general appearance Overall: well nourished 07/02/2017 None Full Exam - Dermatology Constitutional general appearance Overall: well developed 07/02/2017 None Full Exam - Dermatology Constitutional general appearance Overall: in no acute distress 07/02/2017 None Full Exam - Dermatology Eyes conjunctiva/eyelids Overall: clear conjunctiva bilaterally 07/02/2017 None Full Exam - Dermatology Eyes conjunctiva/eyelids Overall: normal eyelids 07/02/2017 None Full Exam - Dermatology Ears/Nose/Throat lips/teeth/gingiva Overall: benign lips 07/02/2017 None Full Exam - Dermatology Respiratory respiratory effort/rhythm Overall: no retractions 07/02/2017 None Full Exam - Dermatology Respiratory respiratory effort/rhythm Overall: normal rate 07/02/2017 None Full Exam - Dermatology Musculoskeletal head and neck Overall: head atraumatic 07/02/2017 None Full Exam - Dermatology Integument insp & palp - left lower extremity Location: on the thigh 07/02/2017 top of posterior thigh Full Exam - Dermatology Integument insp & palp - left lower extremity Color: erythematous 07/02/2017 irritated skin tag with scabbed area to top Full Exam - Dermatology Integument insp & palp - left lower extremity Number: one 07/02/2017 None Full Exam - Dermatology Psychiatric orientation Overall: oriented to person, place and time 07/02/2017 None Full Exam - Dermatology Psychiatric mood and affect Overall: normal mood and affect 07/02/2017 None Full Exam - General 1994 Constitutional general appearance Overall: well developed 06/04/2017 None Full Exam - General 1994 Constitutional general appearance Overall: in no acute distress 06/04/2017 None Full Exam - General 1994 Constitutional general appearance Overall: well nourished 06/04/2017 None Full Exam - General 1994 Respiratory auscultation Overall: breath sounds clear bilaterally 06/04/2017 None Full Exam - General 1994 Respiratory respiratory effort/rhythm Overall: no retractions 06/04/2017 None Full Exam - General 1994 Respiratory respiratory effort/rhythm Overall: normal rate 06/04/2017 None Full Exam - General 1994 Cardiovascular auscultation of heart Overall: regular rate 06/04/2017 None Full Exam - General 1994 Cardiovascular auscultation of heart Systolic murmur: midsystolic 06/04/2017 None Full Exam - General 1994 Musculoskeletal spine, ribs and pelvis Sacroiliac joints: tender right sacroiliac joint 06/04/2017 None Full Exam - General 1994 Musculoskeletal spine, ribs and pelvis Inspection: a normal exam 06/04/2017 None Full Exam - General 1994 Neurologic gait Conventional walking: wide-based 06/04/2017 None Full Exam - General 1994 Constitutional general appearance Overall: well developed 04/03/2017 None Full Exam - General 1994 Constitutional general appearance Overall: in no acute distress 04/03/2017 None Full Exam - General 1994 Constitutional general appearance Overall: well nourished 04/03/2017 None Full Exam - General 1994 Eyes pupils and irises Overall: pupils equal, round, reactive to light and accomodation 04/03/2017 None Full Exam - General 1994 Ears/Nose/Throat oral cavity/pharynx/larynx Overall: oral mucosa clear 04/03/2017 None Full Exam - General 1994 Ears/Nose/Throat oral cavity/pharynx/larynx Overall: oropharyngeal mucosa clear 04/03/2017 None Full Exam - General 1994 Ears/Nose/Throat oral cavity/pharynx/larynx Overall: no masses 04/03/2017 None Full Exam - General 1994 Respiratory auscultation Overall: breath sounds clear bilaterally 04/03/2017 None Full Exam - General 1994 Respiratory respiratory effort/rhythm Overall: no retractions 04/03/2017 None Full Exam - General 1994 Respiratory respiratory effort/rhythm Overall: normal rate 04/03/2017 None Full Exam - General 1994 Cardiovascular auscultation of heart Overall: regular rate 04/03/2017 None Full Exam - General 1994 Cardiovascular auscultation of heart Overall: normal heart sounds 04/03/2017 None Full Exam - General 1994 Cardiovascular auscultation of heart Overall: no murmurs 04/03/2017 None Full Exam - General 1994 Abdomen abdominal exam Contour: rounded 04/03/2017 None Full Exam - General 1994 Abdomen abdominal exam Contour: protuberant 04/03/2017 None Full Exam - General 1994 Musculoskeletal head and neck Overall: head atraumatic 04/03/2017 None Full Exam - General 1994 Musculoskeletal head and neck Overall: cervical spine benign 04/03/2017 None Full Exam - General 1994 Neurologic gait Conventional walking: wide-based 04/03/2017 None Full Exam - General 1994 Psychiatric orientation/consciousness Overall: oriented to person, place and time 04/03/2017 None Full Exam - General 1994 Psychiatric mood and affect Overall: normal mood and affect 04/03/2017 None Full Exam - General 1994 Neurologic sensation Touch: (specify location of deficit): vibration decreased on left foot about 6 seconds and on right 8 seconds 04/03/2017 None Full Exam - General 1994 Neurologic sensation Touch: (specify location of deficit): point localization on great toes and heels bilaterally - normal on dorsum of foot and calf 04/03/2017 None Full Exam - General 1994 Neurologic sensation Touch: (specify location of deficit): stereognosis normal 04/03/2017 None Full Exam - General 1994 Constitutional general appearance Overall: well developed 12/13/2016 None Full Exam - General 1994 Constitutional general appearance Overall: in no acute distress 12/13/2016 None Full Exam - General 1994 Constitutional general appearance Overall: well nourished 12/13/2016 None Full Exam - General 1994 Eyes pupils and irises Overall: pupils equal, round, reactive to light and accomodation 12/13/2016 None Full Exam - General 1994 Ears/Nose/Throat oral cavity/pharynx/larynx Overall: oral mucosa clear 12/13/2016 None Full Exam - General 1994 Ears/Nose/Throat oral cavity/pharynx/larynx Overall: oropharyngeal mucosa clear 12/13/2016 None Full Exam - General 1994 Ears/Nose/Throat oral cavity/pharynx/larynx Overall: no masses 12/13/2016 None Full Exam - General 1994 Respiratory auscultation Overall: breath sounds clear bilaterally 12/13/2016 None Full Exam - General 1994 Respiratory respiratory effort/rhythm Overall: no retractions 12/13/2016 None Full Exam - General 1994 Respiratory respiratory effort/rhythm Overall: normal rate 12/13/2016 None Full Exam - General 1994 Cardiovascular auscultation of heart Overall: regular rate 12/13/2016 None Full Exam - General 1994 Cardiovascular auscultation of heart Overall: normal heart sounds 12/13/2016 None Full Exam - General 1994 Cardiovascular auscultation of heart Overall: no murmurs 12/13/2016 None Full Exam - General 1994 Abdomen abdominal exam Contour: rounded 12/13/2016 None Full Exam - General 1994 Abdomen abdominal exam Contour: protuberant 12/13/2016 None Full Exam - General 1994 Musculoskeletal head and neck Overall: head atraumatic 12/13/2016 None Full Exam - General 1994 Musculoskeletal head and neck Overall: cervical spine benign 12/13/2016 None Full Exam - General 1994 Neurologic gait Conventional walking: wide-based 12/13/2016 None Full Exam - General 1994 Psychiatric orientation/consciousness Overall: oriented to person, place and time 12/13/2016 None Full Exam - General 1994 Psychiatric mood and affect Overall: normal mood and affect 12/13/2016 None Full Exam - General 1994 Constitutional general appearance Overall: well developed 12/05/2016 None Full Exam - General 1994 Constitutional general appearance Overall: in no acute distress 12/05/2016 None Full Exam - General 1994 Constitutional general appearance Overall: well nourished 12/05/2016 None Full Exam - General 1994 Eyes pupils and irises Overall: pupils equal, round, reactive to light and accomodation 12/05/2016 None Full Exam - General 1994 Ears/Nose/Throat oral cavity/pharynx/larynx Overall: oral mucosa clear 12/05/2016 None Full Exam - General 1994 Ears/Nose/Throat oral cavity/pharynx/larynx Overall: oropharyngeal mucosa clear 12/05/2016 None Full Exam - General 1994 Ears/Nose/Throat oral cavity/pharynx/larynx Overall: no masses 12/05/2016 None Full Exam - General 1994 Respiratory auscultation Overall: breath sounds clear bilaterally 12/05/2016 None Full Exam - General 1994 Respiratory respiratory effort/rhythm Overall: no retractions 12/05/2016 None Full Exam - General 1994 Respiratory respiratory effort/rhythm Overall: normal rate 12/05/2016 None Full Exam - General 1994 Cardiovascular auscultation of heart Overall: regular rate 12/05/2016 None Full Exam - General 1994 Cardiovascular auscultation of heart Overall: normal heart sounds 12/05/2016 None Full Exam - General 1994 Cardiovascular auscultation of heart Overall: no murmurs 12/05/2016 None Full Exam - General 1994 Abdomen abdominal exam Contour: rounded 12/05/2016 None Full Exam - General 1994 Abdomen abdominal exam Contour: protuberant 12/05/2016 None Full Exam - General 1994 Abdomen rectal exam Prostate: enlarged 12/05/2016 - no nodules - Full Exam - General 1994 Musculoskeletal head and neck Overall: head atraumatic 12/05/2016 None Full Exam - General 1994 Musculoskeletal head and neck Overall: cervical spine benign 12/05/2016 None Full Exam - General 1994 Neurologic gait Conventional walking: wide-based 12/05/2016 None Full Exam - General 1994 Neurologic coordination Tremors: resting 12/05/2016 None Full Exam - General 1994 Psychiatric orientation/consciousness Overall: oriented to person, place and time 12/05/2016 None Full Exam - General 1994 Psychiatric mood and affect Overall: normal mood and affect 12/05/2016 None Full Exam - General 1994 Constitutional general appearance Overall: well developed 08/30/2016 None Full Exam - General 1994 Constitutional general appearance Overall: in no acute distress 08/30/2016 None Full Exam - General 1994 Constitutional general appearance Overall: well nourished 08/30/2016 None Full Exam - General 1994 Eyes pupils and irises Overall: pupils equal, round, reactive to light and accomodation 08/30/2016 None Full Exam - General 1994 Ears/Nose/Throat oral cavity/pharynx/larynx Overall: oral mucosa clear 08/30/2016 None Full Exam - General 1994 Ears/Nose/Throat oral cavity/pharynx/larynx Overall: oropharyngeal mucosa clear 08/30/2016 None Full Exam - General 1994 Ears/Nose/Throat oral cavity/pharynx/larynx Overall: no masses 08/30/2016 None Full Exam - General 1994 Respiratory auscultation Overall: breath sounds clear bilaterally 08/30/2016 None Full Exam - General 1994 Respiratory respiratory effort/rhythm Overall: no retractions 08/30/2016 None Full Exam - General 1994 Respiratory respiratory effort/rhythm Overall: normal rate 08/30/2016 None Full Exam - General 1994 Cardiovascular auscultation of heart Overall: regular rate 08/30/2016 None Full Exam - General 1994 Cardiovascular auscultation of heart Overall: normal heart sounds 08/30/2016 None Full Exam - General 1994 Cardiovascular auscultation of heart Overall: no murmurs 08/30/2016 None Full Exam - General 1994 Abdomen abdominal exam Contour: rounded 08/30/2016 None Full Exam - General 1994 Abdomen abdominal exam Contour: protuberant 08/30/2016 None Full Exam - General 1994 Abdomen rectal exam Prostate: enlarged 08/30/2016 - no nodules - Full Exam - General 1994 Musculoskeletal head and neck Overall: head atraumatic 08/30/2016 None Full Exam - General 1994 Musculoskeletal head and neck Overall: cervical spine benign 08/30/2016 None Full Exam - General 1994 Neurologic gait Conventional walking: wide-based 08/30/2016 None Full Exam - General 1994 Neurologic coordination Tremors: resting 08/30/2016 None Full Exam - General 1994 Psychiatric orientation/consciousness Overall: oriented to person, place and time 08/30/2016 None Full Exam - General 1994 Psychiatric mood and affect Overall: normal mood and affect 08/30/2016 None Full Exam - General 1994 Constitutional general appearance Overall: well developed 07/13/2016 None Full Exam - General 1994 Constitutional general appearance Overall: in no acute distress 07/13/2016 None Full Exam - General 1994 Constitutional general appearance Overall: well nourished 07/13/2016 None Full Exam - General 1994 Psychiatric orientation/consciousness Overall: oriented to person, place and time 07/13/2016 None Full Exam - General 1994 Respiratory auscultation Overall: breath sounds clear bilaterally 07/13/2016 None Full Exam - General 1994 Respiratory respiratory effort/rhythm Overall: no retractions 07/13/2016 None Full Exam - General 1994 Respiratory respiratory effort/rhythm Overall: normal rate 07/13/2016 None Full Exam - General 1994 Cardiovascular auscultation of heart Overall: regular rate 07/13/2016 None Full Exam - General 1994 Cardiovascular auscultation of heart Overall: normal heart sounds 07/13/2016 None Full Exam - General 1994 Musculoskeletal upper extremity Palpation - forearm: tenderness 07/13/2016 near elbow Full Exam - Orthopedics Constitutional general appearance Overall: well nourished 06/21/2016 None Full Exam - Orthopedics Constitutional general appearance Overall: well developed 06/21/2016 None Full Exam - Orthopedics Constitutional general appearance Overall: in no acute distress 06/21/2016 None Full Exam - Orthopedics Psychiatric orientation/consciousness Overall: oriented to person, place and time 06/21/2016 None Full Exam - Orthopedics Integument insp & palp - head & neck Overall: no rash or lesions 06/21/2016 None Full Exam - Orthopedics MS: spine/rib/pelvis insp & palp - S/R/P Thoracic spine inspection: normal thoracic spine alignment 06/21/2016 None Full Exam - Orthopedics MS: spine/rib/pelvis insp & palp - S/R/P Thoracic/lumbar muscles palpation: tender right parathoracic 06/21/2016 None Full Exam - Orthopedics MS: spine/rib/pelvis insp & palp - S/R/P Thoracic spine palpation: normal spinous processes 06/21/2016 None Full Exam - Orthopedics MS: spine/rib/pelvis range of motion - S/R/P Overall: full range of motion in spine and hip 06/21/2016 None Full Exam - Orthopedics MS: right upper extremity insp & palp - RUE Shoulder: normal appearance 06/21/2016 None Full Exam - Orthopedics MS: right upper extremity insp & palp - RUE Shoulder: normal on palpation 06/21/2016 None Full Exam - Orthopedics MS: right upper extremity insp & palp - RUE Shoulder: tenderness @ biceps tendon 06/21/2016 mild Full Exam - General 1994 Constitutional general appearance Overall: well developed 05/24/2016 None Full Exam - General 1994 Constitutional general appearance Overall: in no acute distress 05/24/2016 None Full Exam - General 1994 Constitutional general appearance Overall: well nourished 05/24/2016 None Full Exam - General 1994 Eyes pupils and irises Overall: pupils equal, round, reactive to light and accomodation 05/24/2016 None Full Exam - General 1994 Ears/Nose/Throat oral cavity/pharynx/larynx Overall: oral mucosa clear 05/24/2016 None Full Exam - General 1994 Ears/Nose/Throat oral cavity/pharynx/larynx Overall: oropharyngeal mucosa clear 05/24/2016 None Full Exam - General 1994 Ears/Nose/Throat oral cavity/pharynx/larynx Overall: no masses 05/24/2016 None Full Exam - General 1994 Respiratory auscultation Overall: breath sounds clear bilaterally 05/24/2016 None Full Exam - General 1994 Respiratory respiratory effort/rhythm Overall: no retractions 05/24/2016 None Full Exam - General 1994 Respiratory respiratory effort/rhythm Overall: normal rate 05/24/2016 None Full Exam - General 1994 Cardiovascular auscultation of heart Overall: regular rate 05/24/2016 None Full Exam - General 1994 Cardiovascular auscultation of heart Overall: normal heart sounds 05/24/2016 None Full Exam - General 1994 Cardiovascular auscultation of heart Overall: no murmurs 05/24/2016 None Full Exam - General 1994 Abdomen abdominal exam Contour: rounded 05/24/2016 None Full Exam - General 1994 Abdomen abdominal exam Contour: protuberant 05/24/2016 None Full Exam - General 1994 Abdomen rectal exam Prostate: enlarged 05/24/2016 - no nodules - Full Exam - General 1994 Musculoskeletal head and neck Overall: head atraumatic 05/24/2016 None Full Exam - General 1994 Musculoskeletal head and neck Overall: cervical spine benign 05/24/2016 None Full Exam - General 1994 Neurologic gait Conventional walking: wide-based 05/24/2016 None Full Exam - General 1994 Psychiatric orientation/consciousness Overall: oriented to person, place and time 05/24/2016 None Full Exam - General 1994 Psychiatric mood and affect Overall: normal mood and affect 05/24/2016 None Full Exam - General 1994 Neurologic coordination Tremors: resting 05/24/2016 None Full Exam - General 1994 Constitutional general appearance Overall: well developed 01/24/2016 None Full Exam - General 1994 Constitutional general appearance Overall: in no acute distress 01/24/2016 None Full Exam - General 1994 Constitutional general appearance Overall: well nourished 01/24/2016 None Full Exam - General 1994 Eyes pupils and irises Overall: pupils equal, round, reactive to light and accomodation 01/24/2016 None Full Exam - General 1994 Ears/Nose/Throat oral cavity/pharynx/larynx Overall: oral mucosa clear 01/24/2016 None Full Exam - General 1994 Ears/Nose/Throat oral cavity/pharynx/larynx Overall: oropharyngeal mucosa clear 01/24/2016 None Full Exam - General 1994 Ears/Nose/Throat oral cavity/pharynx/larynx Overall: no masses 01/24/2016 None Full Exam - General 1994 Respiratory auscultation Overall: breath sounds clear bilaterally 01/24/2016 None Full Exam - General 1994 Respiratory respiratory effort/rhythm Overall: no retractions 01/24/2016 None Full Exam - General 1994 Respiratory respiratory effort/rhythm Overall: normal rate 01/24/2016 None Full Exam - General 1994 Cardiovascular auscultation of heart Overall: regular rate 01/24/2016 None Full Exam - General 1994 Cardiovascular auscultation of heart Overall: normal heart sounds 01/24/2016 None Full Exam - General 1994 Cardiovascular auscultation of heart Overall: no murmurs 01/24/2016 None Full Exam - General 1994 Abdomen abdominal exam Contour: rounded 01/24/2016 None Full Exam - General 1994 Abdomen abdominal exam Contour: protuberant 01/24/2016 None Full Exam - General 1994 Abdomen rectal exam Prostate: enlarged 01/24/2016 - no nodules - Full Exam - General 1994 Musculoskeletal head and neck Overall: head atraumatic 01/24/2016 None Full Exam - General 1994 Musculoskeletal head and neck Overall: cervical spine benign 01/24/2016 None Full Exam - General 1994 Neurologic gait Conventional walking: wide-based 01/24/2016 None Full Exam - General 1994 Psychiatric orientation/consciousness Overall: oriented to person, place and time 01/24/2016 None Full Exam - General 1994 Psychiatric mood and affect Overall: normal mood and affect 01/24/2016 None Full Exam - General 1994 Constitutional general appearance Overall: well developed 10/27/2015 None Full Exam - General 1994 Constitutional general appearance Overall: in no acute distress 10/27/2015 None Full Exam - General 1994 Constitutional general appearance Overall: well nourished 10/27/2015 None Full Exam - General 1994 Eyes pupils and irises Overall: pupils equal, round, reactive to light and accomodation 10/27/2015 None Full Exam - General 1994 Ears/Nose/Throat oral cavity/pharynx/larynx Overall: oral mucosa clear 10/27/2015 None Full Exam - General 1994 Ears/Nose/Throat oral cavity/pharynx/larynx Overall: oropharyngeal mucosa clear 10/27/2015 None Full Exam - General 1994 Ears/Nose/Throat oral cavity/pharynx/larynx Overall: no masses 10/27/2015 None Full Exam - General 1994 Respiratory auscultation Overall: breath sounds clear bilaterally 10/27/2015 None Full Exam - General 1994 Respiratory respiratory effort/rhythm Overall: no retractions 10/27/2015 None Full Exam - General 1994 Respiratory respiratory effort/rhythm Overall: normal rate 10/27/2015 None Full Exam - General 1994 Cardiovascular auscultation of heart Overall: regular rate 10/27/2015 None Full Exam - General 1994 Cardiovascular auscultation of heart Overall: normal heart sounds 10/27/2015 None Full Exam - General 1994 Cardiovascular auscultation of heart Overall: no murmurs 10/27/2015 None Full Exam - General 1994 Abdomen abdominal exam Contour: rounded 10/27/2015 None Full Exam - General 1994 Abdomen abdominal exam Contour: protuberant 10/27/2015 None Full Exam - General 1994 Abdomen rectal exam Prostate: enlarged 10/27/2015 - no nodules - Full Exam - General 1994 Musculoskeletal head and neck Overall: head atraumatic 10/27/2015 None Full Exam - General 1994 Musculoskeletal head and neck Overall: cervical spine benign 10/27/2015 None Full Exam - General 1994 Neurologic gait Conventional walking: wide-based 10/27/2015 None Full Exam - General 1994 Psychiatric orientation/consciousness Overall: oriented to person, place and time 10/27/2015 None Full Exam - General 1994 Psychiatric mood and affect Overall: normal mood and affect 10/27/2015 None Full Exam - General 1994 Constitutional general appearance Overall: well developed 09/21/2015 None Full Exam - General 1994 Constitutional general appearance Overall: in no acute distress 09/21/2015 None Full Exam - General 1994 Constitutional general appearance Overall: well nourished 09/21/2015 None Full Exam - General 1994 Respiratory auscultation Overall: breath sounds clear bilaterally 09/21/2015 None Full Exam - General 1994 Respiratory respiratory effort/rhythm Overall: no retractions 09/21/2015 None Full Exam - General 1994 Respiratory respiratory effort/rhythm Overall: normal rate 09/21/2015 None Full Exam - General 1994 Cardiovascular auscultation of heart Overall: regular rate 09/21/2015 None Full Exam - General 1994 Cardiovascular auscultation of heart Overall: normal heart sounds 09/21/2015 None Full Exam - General 1994 Cardiovascular auscultation of heart Overall: no murmurs 09/21/2015 None Full Exam - General 1994 Abdomen abdominal exam Contour: rounded 09/21/2015 None Full Exam - General 1994 Abdomen abdominal exam Contour: protuberant 09/21/2015 None Full Exam - General 1994 Neurologic gait Conventional walking: wide-based 09/21/2015 None Full Exam - General 1994 Psychiatric orientation/consciousness Overall: oriented to person, place and time 09/21/2015 None Full Exam - General 1994 Psychiatric mood and affect Overall: normal mood and affect 09/21/2015 None Full Exam - General 1994 Constitutional general appearance Overall: well developed 08/17/2015 None Full Exam - General 1994 Constitutional general appearance Overall: in no acute distress 08/17/2015 None Full Exam - General 1994 Constitutional general appearance Overall: well nourished 08/17/2015 None Full Exam - General 1994 Eyes pupils and irises Overall: pupils equal, round, reactive to light and accomodation 08/17/2015 None Full Exam - General 1994 Ears/Nose/Throat oral cavity/pharynx/larynx Overall: oral mucosa clear 08/17/2015 None Full Exam - General 1994 Ears/Nose/Throat oral cavity/pharynx/larynx Overall: oropharyngeal mucosa clear 08/17/2015 None Full Exam - General 1994 Ears/Nose/Throat oral cavity/pharynx/larynx Overall: no masses 08/17/2015 None Full Exam - General 1994 Respiratory auscultation Overall: breath sounds clear bilaterally 08/17/2015 None Full Exam - General 1994 Respiratory respiratory effort/rhythm Overall: no retractions 08/17/2015 None Full Exam - General 1994 Respiratory respiratory effort/rhythm Overall: normal rate 08/17/2015 None Full Exam - General 1994 Cardiovascular auscultation of heart Overall: regular rate 08/17/2015 None Full Exam - General 1994 Cardiovascular auscultation of heart Overall: normal heart sounds 08/17/2015 None Full Exam - General 1994 Cardiovascular auscultation of heart Overall: no murmurs 08/17/2015 None Full Exam - General 1994 Abdomen abdominal exam Contour: rounded 08/17/2015 None Full Exam - General 1994 Abdomen abdominal exam Contour: protuberant 08/17/2015 None Full Exam - General 1994 Abdomen rectal exam Prostate: enlarged 08/17/2015 - no nodules - Full Exam - General 1994 Musculoskeletal head and neck Overall: head atraumatic 08/17/2015 None Full Exam - General 1994 Musculoskeletal head and neck Overall: cervical spine benign 08/17/2015 None Full Exam - General 1994 Neurologic gait Conventional walking: wide-based 08/17/2015 None Full Exam - General 1994 Psychiatric orientation/consciousness Overall: oriented to person, place and time 08/17/2015 None Full Exam - General 1994 Psychiatric mood and affect Overall: normal mood and affect 08/17/2015 None Full Exam - General 1994 Constitutional general appearance Overall: well developed 07/20/2015 None Full Exam - General 1994 Constitutional general appearance Overall: in no acute distress 07/20/2015 None Full Exam - General 1994 Constitutional general appearance Overall: well nourished 07/20/2015 None Full Exam - General 1994 Eyes pupils and irises Overall: pupils equal, round, reactive to light and accomodation 07/20/2015 None Full Exam - General 1994 Ears/Nose/Throat oral cavity/pharynx/larynx Overall: oral mucosa clear 07/20/2015 None Full Exam - General 1994 Ears/Nose/Throat oral cavity/pharynx/larynx Overall: oropharyngeal mucosa clear 07/20/2015 None Full Exam - General 1994 Ears/Nose/Throat oral cavity/pharynx/larynx Overall: no masses 07/20/2015 None Full Exam - General 1994 Respiratory auscultation Overall: breath sounds clear bilaterally 07/20/2015 None Full Exam - General 1994 Respiratory respiratory effort/rhythm Overall: no retractions 07/20/2015 None Full Exam - General 1994 Respiratory respiratory effort/rhythm Overall: normal rate 07/20/2015 None Full Exam - General 1994 Cardiovascular auscultation of heart Overall: regular rate 07/20/2015 None Full Exam - General 1994 Cardiovascular auscultation of heart Overall: normal heart sounds 07/20/2015 None Full Exam - General 1994 Cardiovascular auscultation of heart Overall: no murmurs 07/20/2015 None Full Exam - General 1994 Abdomen abdominal exam Contour: rounded 07/20/2015 None Full Exam - General 1994 Abdomen abdominal exam Contour: protuberant 07/20/2015 None Full Exam - General 1994 Abdomen rectal exam Prostate: enlarged 07/20/2015 - no nodules - Full Exam - General 1994 Musculoskeletal head and neck Overall: head atraumatic 07/20/2015 None Full Exam - General 1994 Musculoskeletal head and neck Overall: cervical spine benign 07/20/2015 None Full Exam - General 1994 Neurologic gait Conventional walking: wide-based 07/20/2015 None Full Exam - General 1994 Psychiatric orientation/consciousness Overall: oriented to person, place and time 07/20/2015 None Full Exam - General 1994 Psychiatric mood and affect Overall: normal mood and affect 07/20/2015 None Full Exam - General 1994 Constitutional general appearance Overall: well developed 04/20/2015 None Full Exam - General 1994 Constitutional general appearance Overall: in no acute distress 04/20/2015 None Full Exam - General 1994 Constitutional general appearance Overall: well nourished 04/20/2015 None Full Exam - General 1994 Eyes pupils and irises Overall: pupils equal, round, reactive to light and accomodation 04/20/2015 None Full Exam - General 1994 Ears/Nose/Throat oral cavity/pharynx/larynx Overall: oral mucosa clear 04/20/2015 None Full Exam - General 1994 Ears/Nose/Throat oral cavity/pharynx/larynx Overall: oropharyngeal mucosa clear 04/20/2015 None Full Exam - General 1994 Ears/Nose/Throat oral cavity/pharynx/larynx Overall: no masses 04/20/2015 None Full Exam - General 1994 Respiratory auscultation Overall: breath sounds clear bilaterally 04/20/2015 None Full Exam - General 1994 Respiratory respiratory effort/rhythm Overall: no retractions 04/20/2015 None Full Exam - General 1994 Respiratory respiratory effort/rhythm Overall: normal rate 04/20/2015 None Full Exam - General 1994 Cardiovascular auscultation of heart Overall: regular rate 04/20/2015 None Full Exam - General 1994 Cardiovascular auscultation of heart Overall: normal heart sounds 04/20/2015 None Full Exam - General 1994 Cardiovascular auscultation of heart Overall: no murmurs 04/20/2015 None Full Exam - General 1994 Abdomen abdominal exam Contour: rounded 04/20/2015 None Full Exam - General 1994 Abdomen abdominal exam Contour: protuberant 04/20/2015 None Full Exam - General 1994 Abdomen rectal exam Prostate: enlarged 04/20/2015 - no nodules - Full Exam - General 1994 Musculoskeletal head and neck Overall: head atraumatic 04/20/2015 None Full Exam - General 1994 Musculoskeletal head and neck Overall: cervical spine benign 04/20/2015 None Full Exam - General 1994 Neurologic gait Conventional walking: wide-based 04/20/2015 None Full Exam - General 1994 Psychiatric orientation/consciousness Overall: oriented to person, place and time 04/20/2015 None Full Exam - General 1994 Psychiatric mood and affect Overall: normal mood and affect 04/20/2015 None Full Exam - General 1994 Integument inspection of skin Overall: no rash, lesions 04/20/2015 None Full Exam - General 1994 Neurologic sensation Touch: (specify location of deficit): vibration decreased at great toes bilaterally - and lateral and medial ankles bilaterally 04/20/2015 None Full Exam - ENT Constitutional general appearance Overall: in no acute distress 02/28/2015 None Full Exam - ENT Constitutional general appearance Overall: well nourished 02/28/2015 None Full Exam - ENT Ears/Nose/Throat otoscopic exam Overall: external auditory canals normal 02/28/2015 None Full Exam - ENT Ears/Nose/Throat otoscopic exam Overall: tympanic membranes normal 02/28/2015 None Full Exam - General 1994 Constitutional general appearance Overall: well developed 02/14/2015 None Full Exam - General 1994 Constitutional general appearance Overall: in no acute distress 02/14/2015 None Full Exam - General 1994 Constitutional general appearance Overall: well nourished 02/14/2015 None Full Exam - General 1994 Eyes pupils and irises Overall: pupils equal, round, reactive to light and accomodation 02/14/2015 None Full Exam - General 1994 Ears/Nose/Throat oral cavity/pharynx/larynx Overall: oral mucosa clear 02/14/2015 None Full Exam - General 1994 Ears/Nose/Throat oral cavity/pharynx/larynx Overall: oropharyngeal mucosa clear 02/14/2015 None Full Exam - General 1994 Ears/Nose/Throat oral cavity/pharynx/larynx Overall: no masses 02/14/2015 None Full Exam - General 1994 Respiratory auscultation Overall: breath sounds clear bilaterally 02/14/2015 None Full Exam - General 1994 Respiratory respiratory effort/rhythm Overall: no retractions 02/14/2015 None Full Exam - General 1994 Respiratory respiratory effort/rhythm Overall: normal rate 02/14/2015 None Full Exam - General 1994 Cardiovascular auscultation of heart Overall: regular rate 02/14/2015 None Full Exam - General 1994 Cardiovascular auscultation of heart Overall: normal heart sounds 02/14/2015 None Full Exam - General 1994 Cardiovascular auscultation of heart Overall: no murmurs 02/14/2015 None Full Exam - General 1994 Abdomen abdominal exam Contour: rounded 02/14/2015 None Full Exam - General 1994 Abdomen abdominal exam Contour: protuberant 02/14/2015 None Full Exam - General 1994 Abdomen rectal exam Prostate: enlarged 02/14/2015 - no nodules - Full Exam - General 1994 Musculoskeletal head and neck Overall: head atraumatic 02/14/2015 None Full Exam - General 1994 Musculoskeletal head and neck Overall: cervical spine benign 02/14/2015 None Full Exam - General 1994 Neurologic gait Conventional walking: wide-based 02/14/2015 None Full Exam - General 1994 Psychiatric orientation/consciousness Overall: oriented to person, place and time 02/14/2015 None Full Exam - General 1994 Psychiatric mood and affect Overall: normal mood and affect 02/14/2015 None Full Exam - General 1994 Constitutional general appearance Overall: well developed 11/11/2014 None Full Exam - General 1994 Constitutional general appearance Overall: in no acute distress 11/11/2014 None Full Exam - General 1994 Constitutional general appearance Overall: well nourished 11/11/2014 None Full Exam - General 1994 Eyes pupils and irises Overall: pupils equal, round, reactive to light and accomodation 11/11/2014 None Full Exam - General 1994 Ears/Nose/Throat oral cavity/pharynx/larynx Overall: oral mucosa clear 11/11/2014 None Full Exam - General 1994 Ears/Nose/Throat oral cavity/pharynx/larynx Overall: oropharyngeal mucosa clear 11/11/2014 None Full Exam - General 1994 Ears/Nose/Throat oral cavity/pharynx/larynx Overall: no masses 11/11/2014 None Full Exam - General 1994 Respiratory auscultation Overall: breath sounds clear bilaterally 11/11/2014 None Full Exam - General 1994 Respiratory respiratory effort/rhythm Overall: no retractions 11/11/2014 None Full Exam - General 1994 Respiratory respiratory effort/rhythm Overall: normal rate 11/11/2014 None Full Exam - General 1994 Cardiovascular auscultation of heart Overall: regular rate 11/11/2014 None Full Exam - General 1994 Cardiovascular auscultation of heart Overall: normal heart sounds 11/11/2014 None Full Exam - General 1994 Cardiovascular auscultation of heart Overall: no murmurs 11/11/2014 None Full Exam - General 1994 Abdomen abdominal exam Contour: rounded 11/11/2014 None Full Exam - General 1994 Abdomen abdominal exam Contour: protuberant 11/11/2014 None Full Exam - General 1994 Abdomen rectal exam Prostate: enlarged 11/11/2014 - no nodules - Full Exam - General 1994 Musculoskeletal head and neck Overall: head atraumatic 11/11/2014 None Full Exam - General 1994 Musculoskeletal head and neck Overall: cervical spine benign 11/11/2014 None Full Exam - General 1994 Neurologic gait Conventional walking: wide-based 11/11/2014 None Full Exam - General 1994 Psychiatric orientation/consciousness Overall: oriented to person, place and time 11/11/2014 None Full Exam - General 1994 Psychiatric mood and affect Overall: normal mood and affect 11/11/2014 None Full Exam - General 1994 Constitutional general appearance Overall: well developed 10/04/2014 None Full Exam - General 1994 Constitutional general appearance Overall: in no acute distress 10/04/2014 None Full Exam - General 1994 Constitutional general appearance Overall: well nourished 10/04/2014 None Full Exam - General 1994 Eyes pupils and irises Overall: pupils equal, round, reactive to light and accomodation 10/04/2014 None Full Exam - General 1994 Respiratory auscultation Overall: breath sounds clear bilaterally 10/04/2014 None Full Exam - General 1994 Respiratory respiratory effort/rhythm Overall: no retractions 10/04/2014 None Full Exam - General 1994 Respiratory respiratory effort/rhythm Overall: normal rate 10/04/2014 None Full Exam - General 1994 Cardiovascular auscultation of heart Overall: regular rate 10/04/2014 None Full Exam - General 1994 Cardiovascular auscultation of heart Overall: normal heart sounds 10/04/2014 None Full Exam - General 1994 Cardiovascular auscultation of heart Overall: no murmurs 10/04/2014 None Full Exam - General 1994 Abdomen abdominal exam Contour: rounded 10/04/2014 None Full Exam - General 1994 Abdomen abdominal exam Contour: protuberant 10/04/2014 None Full Exam - General 1994 Musculoskeletal head and neck Overall: head atraumatic 10/04/2014 None Full Exam - General 1994 Musculoskeletal head and neck Overall: cervical spine benign 10/04/2014 None Full Exam - General 1994 Neurologic gait Conventional walking: wide-based 10/04/2014 None Full Exam - General 1994 Psychiatric orientation/consciousness Overall: oriented to person, place and time 10/04/2014 None Full Exam - General 1994 Psychiatric mood and affect Overall: normal mood and affect 10/04/2014 None Full Exam - General 1994 Ears/Nose/Throat oral cavity/pharynx/larynx Overall: oropharyngeal mucosa clear 10/04/2014 None Full Exam - General 1994 Ears/Nose/Throat oral cavity/pharynx/larynx Overall: no masses 10/04/2014 None Full Exam - General 1994 Ears/Nose/Throat oral cavity/pharynx/larynx Overall: oral mucosa clear 10/04/2014 None Full Exam - General 1994 Constitutional general appearance Overall: well developed 08/02/2014 None Full Exam - General 1994 Constitutional general appearance Overall: in no acute distress 08/02/2014 None Full Exam - General 1994 Constitutional general appearance Overall: well nourished 08/02/2014 None Full Exam - General 1994 Respiratory auscultation Overall: breath sounds clear bilaterally 08/02/2014 None Full Exam - General 1994 Respiratory respiratory effort/rhythm Overall: no retractions 08/02/2014 None Full Exam - General 1994 Respiratory respiratory effort/rhythm Overall: normal rate 08/02/2014 None Full Exam - General 1994 Cardiovascular auscultation of heart Overall: regular rate 08/02/2014 None Full Exam - General 1994 Cardiovascular auscultation of heart Overall: normal heart sounds 08/02/2014 None Full Exam - General 1994 Cardiovascular auscultation of heart Overall: no murmurs 08/02/2014 None Full Exam - General 1994 Abdomen abdominal exam Contour: rounded 08/02/2014 None Full Exam - General 1994 Abdomen abdominal exam Contour: protuberant 08/02/2014 None Full Exam - General 1994 Abdomen rectal exam Prostate: enlarged 08/02/2014 - no nodules - Full Exam - General 1994 Neurologic gait Conventional walking: wide-based 08/02/2014 None Full Exam - General 1994 Psychiatric orientation/consciousness Overall: oriented to person, place and time 08/02/2014 None Full Exam - General 1994 Psychiatric mood and affect Overall: normal mood and affect 08/02/2014 None Full Exam - General 1994 Eyes pupils and irises Overall: pupils equal, round, reactive to light and accomodation 08/02/2014 None Full Exam - General 1994 Musculoskeletal head and neck Overall: head atraumatic 08/02/2014 None Full Exam - General 1994 Musculoskeletal head and neck Overall: cervical spine benign 08/02/2014 None Full Exam - General 1994 Ears/Nose/Throat oral cavity/pharynx/larynx Overall: oropharyngeal mucosa clear 08/02/2014 None Full Exam - General 1994 Ears/Nose/Throat oral cavity/pharynx/larynx Overall: no masses 08/02/2014 None Full Exam - General 1994 Ears/Nose/Throat oral cavity/pharynx/larynx Overall: oral mucosa clear 08/02/2014 None Full Exam - General 1994 Constitutional general appearance Overall: well developed 06/15/2014 None Full Exam - General 1994 Constitutional general appearance Overall: in no acute distress 06/15/2014 None Full Exam - General 1994 Constitutional general appearance Overall: well nourished 06/15/2014 None Full Exam - General 1994 Cardiovascular auscultation of heart Overall: normal heart sounds 06/15/2014 None Full Exam - General 1994 Cardiovascular auscultation of heart Overall: no murmurs 06/15/2014 None Full Exam - General 1994 Abdomen abdominal exam Contour: rounded 06/15/2014 None Full Exam - General 1994 Abdomen abdominal exam Contour: protuberant 06/15/2014 None Full Exam - General 1994 Neurologic gait Conventional walking: wide-based 06/15/2014 None Full Exam - General 1994 Psychiatric orientation/consciousness Overall: oriented to person, place and time 06/15/2014 None Full Exam - General 1994 Psychiatric mood and affect Overall: normal mood and affect 06/15/2014 None Full Exam - General 1994 Cardiovascular auscultation of heart Overall: regular rate 06/15/2014 None Full Exam - General 1994 Respiratory respiratory effort/rhythm Overall: no retractions 06/15/2014 None Full Exam - General 1994 Respiratory respiratory effort/rhythm Overall: normal rate 06/15/2014 None Full Exam - General 1994 Respiratory auscultation Overall: breath sounds clear bilaterally 06/15/2014 None Full Exam - General 1994 Abdomen rectal exam Prostate: enlarged 06/15/2014 - no nodules - Full Exam - General 1994 Constitutional general appearance Overall: well developed 05/04/2014 None Full Exam - General 1994 Constitutional general appearance Overall: in no acute distress 05/04/2014 None Full Exam - General 1994 Constitutional general appearance Overall: well nourished 05/04/2014 None Full Exam - General 1994 Neurologic gait Conventional walking: wide-based 05/04/2014 None Full Exam - General 1994 Cardiovascular auscultation of heart Systolic murmur: midsystolic 05/04/2014 None Full Exam - General 1994 Cardiovascular auscultation of heart Overall: regular rate 05/04/2014 None Full Exam - General 1994 Respiratory auscultation Overall: breath sounds clear bilaterally 05/04/2014 None Full Exam - General 1994 Respiratory respiratory effort/rhythm Overall: normal rate 05/04/2014 None Full Exam - General 1994 Respiratory respiratory effort/rhythm Overall: no retractions 05/04/2014 None Full Exam - General 1994 Musculoskeletal spine, ribs and pelvis Inspection: a normal exam 05/04/2014 None Full Exam - General 1994 Musculoskeletal spine, ribs and pelvis Sacroiliac joints: tender right sacroiliac joint 05/04/2014 None Full Exam - General 1994 Constitutional general appearance Overall: well developed 04/19/2014 None Full Exam - General 1994 Constitutional general appearance Overall: in no acute distress 04/19/2014 None Full Exam - General 1994 Constitutional general appearance Overall: well nourished 04/19/2014 None Full Exam - General 1994 Eyes pupils and irises Overall: pupils equal, round, reactive to light and accomodation 04/19/2014 None Full Exam - General 1994 Respiratory auscultation Overall: breath sounds clear bilaterally 04/19/2014 None Full Exam - General 1994 Respiratory respiratory effort/rhythm Overall: no retractions 04/19/2014 None Full Exam - General 1994 Respiratory respiratory effort/rhythm Overall: normal rate 04/19/2014 None Full Exam - General 1994 Cardiovascular auscultation of heart Overall: regular rate 04/19/2014 None Full Exam - General 1994 Cardiovascular auscultation of heart Overall: normal heart sounds 04/19/2014 None Full Exam - General 1994 Cardiovascular auscultation of heart Overall: no murmurs 04/19/2014 None Full Exam - General 1994 Abdomen abdominal exam Contour: rounded 04/19/2014 None Full Exam - General 1994 Abdomen abdominal exam Contour: protuberant 04/19/2014 None Full Exam - General 1995 Musculoskeletal head and neck Overall: head atraumatic 04/19/2014 None Full Exam - General 1994 Musculoskeletal head and neck Overall: cervical spine benign 04/19/2014 None Full Exam - General 1995 Neurologic gait Conventional walking: wide-based 04/19/2014 None Full Exam - General 1994 Psychiatric orientation/consciousness Overall: oriented to person, place and time 04/19/2014 None Full Exam - General 1994 Psychiatric mood and affect Overall: normal mood and affect 04/19/2014 None Full Exam - General 1995 Constitutional general appearance Overall: well developed 02/08/2014 None Full Exam - General 1995 Constitutional general appearance Overall: in no acute distress 02/08/2014 None Full Exam - General 1995 Constitutional general appearance Overall: well nourished 02/08/2014 None Full Exam - General 1994 Eyes pupils and irises Overall: pupils equal, round, reactive to light and accomodation 02/08/2014 None Full Exam - General 1994 Ears/Nose/Throat oral cavity/pharynx/larynx Overall: oral mucosa clear 02/08/2014 None Full Exam - General 1994 Cardiovascular auscultation of heart Overall: regular rate 02/08/2014 None Full Exam - General 1994 Cardiovascular auscultation of heart Overall: normal heart sounds 02/08/2014 None Full Exam - General 1994 Cardiovascular auscultation of heart Systolic murmur: midsystolic 02/08/2014 None Full Exam - General 1994 Abdomen abdominal exam Contour: protuberant 02/08/2014 None Full Exam - General 1994 Musculoskeletal head and neck Overall: head atraumatic 02/08/2014 None Full Exam - General 1994 Musculoskeletal head and neck Overall: cervical spine benign 02/08/2014 None Full Exam - General 1994 Neurologic gait Conventional walking: wide-based 02/08/2014 None Full Exam - General 1994 Psychiatric orientation/consciousness Overall: oriented to person, place and time 02/08/2014 None Full Exam - General 1994 Psychiatric mood and affect Overall: normal mood and affect 02/08/2014 None Full Exam - General 1994 Neurologic mental status Overall: alert 02/08/2014 None Full Exam - General 1994 Neurologic mental status Overall: oriented 02/08/2014 - see [facility] - Full Exam - General 1994 Abdomen abdominal exam Contour: rounded 02/08/2014 None Full Exam - General 1994 Constitutional general appearance Overall: well developed 01/13/2014 None Full Exam - General 1994 Constitutional general appearance Overall: in no acute distress 01/13/2014 None Full Exam - General 1994 Constitutional general appearance Overall: well nourished 01/13/2014 None Full Exam - General 1994 Eyes pupils and irises Overall: pupils equal, round, reactive to light and accomodation 01/13/2014 None Full Exam - General 1994 Respiratory auscultation Overall: breath sounds clear bilaterally 01/13/2014 None Full Exam - General 1994 Respiratory respiratory effort/rhythm Overall: no retractions 01/13/2014 None Full Exam - General 1994 Respiratory respiratory effort/rhythm Overall: normal rate 01/13/2014 None Full Exam - General 1994 Cardiovascular auscultation of heart Overall: regular rate 01/13/2014 None Full Exam - General 1994 Cardiovascular auscultation of heart Overall: normal heart sounds 01/13/2014 None Full Exam - General 1994 Cardiovascular auscultation of heart Overall: no murmurs 01/13/2014 None Full Exam - General 1994 Abdomen abdominal exam Contour: rounded 01/13/2014 None Full Exam - General 1994 Abdomen abdominal exam Contour: protuberant 01/13/2014 None Full Exam - General 1994 Musculoskeletal head and neck Overall: head atraumatic 01/13/2014 None Full Exam - General 1994 Musculoskeletal head and neck Overall: cervical spine benign 01/13/2014 None Full Exam - General 1994 Neurologic gait Conventional walking: wide-based 01/13/2014 None Full Exam - General 1994 Psychiatric orientation/consciousness Overall: oriented to person, place and time 01/13/2014 None Full Exam - General 1994 Psychiatric mood and affect Overall: normal mood and affect 01/13/2014 None Full Exam - General 1994 Constitutional general appearance Overall: well developed 10/14/2013 None Full Exam - General 1994 Constitutional general appearance Overall: in no acute distress 10/14/2013 None Full Exam - General 1994 Constitutional general appearance Overall: well nourished 10/14/2013 None Full Exam - General 1994 Eyes pupils and irises Overall: pupils equal, round, reactive to light and accomodation 10/14/2013 None Full Exam - General 1994 Respiratory auscultation Overall: breath sounds clear bilaterally 10/14/2013 None Full Exam - General 1994 Respiratory respiratory effort/rhythm Overall: no retractions 10/14/2013 None Full Exam - General 1994 Respiratory respiratory effort/rhythm Overall: normal rate 10/14/2013 None Full Exam - General 1994 Cardiovascular auscultation of heart Overall: regular rate 10/14/2013 None Full Exam - General 1994 Cardiovascular auscultation of heart Overall: normal heart sounds 10/14/2013 None Full Exam - General 1994 Abdomen abdominal exam Contour: rounded 10/14/2013 None Full Exam - General 1994 Abdomen abdominal exam Contour: protuberant 10/14/2013 None Full Exam - General 1994 Musculoskeletal head and neck Overall: head atraumatic 10/14/2013 None Full Exam - General 1994 Musculoskeletal head and neck Overall: cervical spine benign 10/14/2013 None Full Exam - General 1994 Neurologic gait Conventional walking: wide-based 10/14/2013 None Full Exam - General 1994 Psychiatric orientation/consciousness Overall: oriented to person, place and time 10/14/2013 None Full Exam - General 1994 Psychiatric mood and affect Overall: normal mood and affect 10/14/2013 None Full Exam - General 1994 Ears/Nose/Throat oral cavity/pharynx/larynx Overall: oropharyngeal mucosa clear 10/14/2013 None Full Exam - General 1994 Ears/Nose/Throat oral cavity/pharynx/larynx Overall: no masses 10/14/2013 None Full Exam - General 1994 Ears/Nose/Throat oral cavity/pharynx/larynx Overall: oral mucosa clear 10/14/2013 None Full Exam - General 1994 Cardiovascular auscultation of heart Systolic murmur: midsystolic 10/14/2013 None Full Exam - General 1994 Musculoskeletal digits and nails Digits: a normal exam 10/14/2013 None Full Exam - General 1994 Musculoskeletal digits and nails [facility]: pain with ROM 10/14/2013 None Full Exam - General 1994 Musculoskeletal upper extremity Inspection - shoulder: a normal exam 10/14/2013 None Full Exam - General 1994 Musculoskeletal upper extremity ROM - shoulder: crepitus 10/14/2013 None Full Exam - General 1994 Constitutional general appearance Overall: well developed 07/01/2013 None Full Exam - General 1994 Constitutional general appearance Overall: in no acute distress 07/01/2013 None Full Exam - General 1994 Constitutional general appearance Overall: well nourished 07/01/2013 None Full Exam - General 1994 Eyes pupils and irises Overall: pupils equal, round, reactive to light and accomodation 07/01/2013 None Full Exam - General 1994 Respiratory auscultation Overall: breath sounds clear bilaterally 07/01/2013 None Full Exam - General 1995 Respiratory respiratory effort/rhythm Overall: no retractions 07/01/2013 None Full Exam - General 1994 Respiratory respiratory effort/rhythm Overall: normal rate 07/01/2013 None Full Exam - General 1994 Cardiovascular auscultation of heart Overall: regular rate 07/01/2013 None Full Exam - General 1994 Cardiovascular auscultation of heart Overall: normal heart sounds 07/01/2013 None Full Exam - General 1994 Cardiovascular auscultation of heart Overall: no murmurs 07/01/2013 None Full Exam - General 1995 Abdomen abdominal exam Contour: rounded 07/01/2013 None Full Exam - General 1994 Abdomen abdominal exam Contour: protuberant 07/01/2013 None Full Exam - General 1994 Musculoskeletal head and neck Overall: head atraumatic 07/01/2013 None Full Exam - General 1994 Musculoskeletal head and neck Overall: cervical spine benign 07/01/2013 None Full Exam - General 1994 Neurologic gait Conventional walking: wide-based 07/01/2013 None Full Exam - General 1994 Psychiatric orientation/consciousness Overall: oriented to person, place and time 07/01/2013 None Full Exam - General 1994 Psychiatric mood and affect Overall: normal mood and affect 07/01/2013 None Full Exam - General 1994 Constitutional general appearance Overall: well developed 03/04/2013 None Full Exam - General 1994 Constitutional general appearance Overall: in no acute distress 03/04/2013 None Full Exam - General 1994 Constitutional general appearance Overall: well nourished 03/04/2013 None Full Exam - General 1994 Eyes pupils and irises Overall: pupils equal, round, reactive to light and accomodation 03/04/2013 None Full Exam - General 1994 Respiratory auscultation Overall: breath sounds clear bilaterally 03/04/2013 None Full Exam - General 1994 Respiratory respiratory effort/rhythm Overall: no retractions 03/04/2013 None Full Exam - General 1994 Respiratory respiratory effort/rhythm Overall: normal rate 03/04/2013 None Full Exam - General 1994 Cardiovascular auscultation of heart Overall: regular rate 03/04/2013 None Full Exam - General 1994 Cardiovascular auscultation of heart Overall: normal heart sounds 03/04/2013 None Full Exam - General 1994 Cardiovascular auscultation of heart Overall: no murmurs 03/04/2013 None Full Exam - General 1994 Abdomen abdominal exam Contour: rounded 03/04/2013 None Full Exam - General 1994 Abdomen abdominal exam Contour: protuberant 03/04/2013 None Full Exam - General 1995 Musculoskeletal head and neck Overall: head atraumatic 03/04/2013 None Full Exam - General 1994 Musculoskeletal head and neck Overall: cervical spine benign 03/04/2013 None Full Exam - General 1995 Neurologic gait Conventional walking: wide-based 03/04/2013 None Full Exam - General 1995 Psychiatric orientation/consciousness Overall: oriented to person, place and time 03/04/2013 None Full Exam - General 1995 Psychiatric mood and affect Overall: normal mood and affect 03/04/2013 None Full Exam - General 1995 Constitutional general appearance Overall: well developed 02/04/2013 None Full Exam - General 1995 Constitutional general appearance Overall: in no acute distress 02/04/2013 None Full Exam - General 1995 Constitutional general appearance Overall: well nourished 02/04/2013 None Full Exam - General 1994 Eyes pupils and irises Overall: pupils equal, round, reactive to light and accomodation 02/04/2013 None Full Exam - General 1994 Respiratory auscultation Overall: breath sounds clear bilaterally 02/04/2013 None Full Exam - General 1994 Respiratory respiratory effort/rhythm Overall: no retractions 02/04/2013 None Full Exam - General 1994 Respiratory respiratory effort/rhythm Overall: normal rate 02/04/2013 None Full Exam - General 1994 Cardiovascular auscultation of heart Overall: regular rate 02/04/2013 None Full Exam - General 1994 Cardiovascular auscultation of heart Overall: normal heart sounds 02/04/2013 None Full Exam - General 1994 Cardiovascular auscultation of heart Overall: no murmurs 02/04/2013 None Full Exam - General 1994 Abdomen abdominal exam Contour: rounded 02/04/2013 None Full Exam - General 1994 Abdomen abdominal exam Contour: protuberant 02/04/2013 None Full Exam - General 1994 Musculoskeletal head and neck Overall: head atraumatic 02/04/2013 None Full Exam - General 1994 Musculoskeletal head and neck Overall: cervical spine benign 02/04/2013 None Full Exam - General 1994 Neurologic gait Conventional walking: wide-based 02/04/2013 None Full Exam - General 1994 Psychiatric orientation/consciousness Overall: oriented to person, place and time 02/04/2013 None Full Exam - General 1994 Psychiatric mood and affect Overall: normal mood and affect 02/04/2013 None Full Exam - General 1994 Neurologic gait Conventional walking: wide-based 12/03/2012 None Full Exam - General 1995 Psychiatric orientation/consciousness Overall: oriented to person, place and time 12/03/2012 None Full Exam - General 1994 Psychiatric mood and affect Overall: normal mood and affect 12/03/2012 None Full Exam - General 1995 Constitutional general appearance Overall: well developed 12/03/2012 None Full Exam - General 1995 Constitutional general appearance Overall: in no acute distress 12/03/2012 None Full Exam - General 1994 Constitutional general appearance Overall: well nourished 12/03/2012 None Full Exam - General 1994 Eyes pupils and irises Overall: pupils equal, round, reactive to light and accomodation 12/03/2012 None Full Exam - General 1994 Respiratory auscultation Overall: breath sounds clear bilaterally 12/03/2012 None Full Exam - General 1994 Respiratory respiratory effort/rhythm Overall: no retractions 12/03/2012 None Full Exam - General 1994 Respiratory respiratory effort/rhythm Overall: normal rate 12/03/2012 None Full Exam - General 1994 Cardiovascular auscultation of heart Overall: regular rate 12/03/2012 None Full Exam - General 1994 Cardiovascular auscultation of heart Overall: normal heart sounds 12/03/2012 None Full Exam - General 1994 Cardiovascular auscultation of heart Overall: no murmurs 12/03/2012 None Full Exam - General 1994 Abdomen abdominal exam Contour: rounded 12/03/2012 None Full Exam - General 1994 Abdomen abdominal exam Contour: protuberant 12/03/2012 None Full Exam - General 1994 Musculoskeletal head and neck Overall: head atraumatic 12/03/2012 None Full Exam - General 1994 Musculoskeletal head and neck Overall: cervical spine benign 12/03/2012 None Full Exam - ENT Constitutional general appearance Overall: well developed 10/14/2012 None Full Exam - ENT Constitutional general appearance Overall: in no acute distress 10/14/2012 None Full Exam - ENT Constitutional general appearance Overall: well nourished 10/14/2012 None Full Exam - ENT Ears/Nose/Throat otoscopic exam Right external auditory canal: partial cerumen occlusion 10/14/2012 None Full Exam - ENT Ears/Nose/Throat otoscopic exam Left external auditory canal: partial cerumen occlusion 10/14/2012 None Full Exam - ENT Ears/Nose/Throat otoscopic exam Left tympanic membrane: a normal exam 10/14/2012 cerumen adhered to TM Full Exam - ENT Ears/Nose/Throat oropharynx Overall: oral mucosa clear 10/14/2012 None Full Exam - ENT Neurologic orientation Overall: oriented to person, place and time 10/14/2012 None Full Exam - ENT Lymphatic palpation of lymph nodes Overall: anterior cervical chain benign 10/14/2012 None Full Exam - ENT Lymphatic palpation of lymph nodes Overall: posterior cervical chain benign 10/14/2012 None Full Exam - ENT Cardiovascular auscultation of heart Overall: regular rate 10/14/2012 None Full Exam - ENT Cardiovascular auscultation of heart Overall: normal heart sounds 10/14/2012 None Full Exam - ENT Respiratory auscultation Overall: breath sounds clear bilaterally 10/14/2012 None Full Exam - ENT Respiratory inspection Overall: no retractions 10/14/2012 None Full Exam - ENT Respiratory inspection Overall: normal rate 10/14/2012 None Full Exam - ENT Face and Head palpation Overall: no sinus tenderness 10/14/2012 None Full Exam - General 1994 Eyes pupils and irises Overall: pupils equal, round, reactive to light and accomodation 09/29/2012 None Full Exam - General 1994 Respiratory auscultation Overall: breath sounds clear bilaterally 09/29/2012 None Full Exam - General 1994 Respiratory respiratory effort/rhythm Overall: no retractions 09/29/2012 None Full Exam - General 1994 Respiratory respiratory effort/rhythm Overall: normal rate 09/29/2012 None Full Exam - General 1994 Cardiovascular auscultation of heart Overall: regular rate 09/29/2012 None Full Exam - General 1994 Cardiovascular auscultation of heart Overall: normal heart sounds 09/29/2012 None Full Exam - General 1994 Cardiovascular auscultation of heart Overall: no murmurs 09/29/2012 None Full Exam - General 1994 Abdomen abdominal exam Contour: rounded 09/29/2012 None Full Exam - General 1994 Abdomen abdominal exam Contour: protuberant 09/29/2012 None Full Exam - General 1994 Musculoskeletal spine, ribs and pelvis Palpation: tender at greater trochanter 09/29/2012 None Full Exam - General 1994 Musculoskeletal head and neck Overall: head atraumatic 09/29/2012 None Full Exam - General 1994 Musculoskeletal head and neck Overall: cervical spine benign 09/29/2012 None Full Exam - General 1994 Neurologic gait Conventional walking: wide-based 09/29/2012 None Full Exam - General 1994 Constitutional general appearance Overall: well developed 09/29/2012 None Full Exam - General 1995 Constitutional general appearance Overall: in no acute distress 09/29/2012 None Full Exam - General 1995 Constitutional general appearance Overall: well nourished 09/29/2012 None Full Exam - General 1994 Psychiatric orientation/consciousness Overall: oriented to person, place and time 09/29/2012 None Full Exam - General 1994 Psychiatric mood and affect Overall: normal mood and affect 09/29/2012 None Full Exam - General 1995 Constitutional general appearance Overall: well developed 09/25/2012 None Full Exam - General 1995 Constitutional general appearance Overall: in no acute distress 09/25/2012 None Full Exam - General 1995 Constitutional general appearance Overall: well nourished 09/25/2012 None Full Exam - General 1994 Eyes pupils and irises Overall: pupils equal, round, reactive to light and accomodation 09/25/2012 None Full Exam - General 1994 Respiratory auscultation Overall: breath sounds clear bilaterally 09/25/2012 None Full Exam - General 1994 Respiratory respiratory effort/rhythm Overall: no retractions 09/25/2012 None Full Exam - General 1994 Respiratory respiratory effort/rhythm Overall: normal rate 09/25/2012 None Full Exam - General 1994 Cardiovascular auscultation of heart Overall: regular rate 09/25/2012 None Full Exam - General 1994 Cardiovascular auscultation of heart Overall: normal heart sounds 09/25/2012 None Full Exam - General 1994 Cardiovascular auscultation of heart Overall: no murmurs 09/25/2012 None Full Exam - General 1994 Abdomen abdominal exam Contour: rounded 09/25/2012 None Full Exam - General 1994 Abdomen abdominal exam Contour: protuberant 09/25/2012 None Full Exam - General 1994 Musculoskeletal head and neck Overall: head atraumatic 09/25/2012 None Full Exam - General 1994 Musculoskeletal head and neck Overall: cervical spine benign 09/25/2012 None Full Exam - General 1994 Neurologic gait Conventional walking: wide-based 09/25/2012 None Full Exam - General 1994 Psychiatric orientation/consciousness Overall: oriented to person, place and time 09/25/2012 None Full Exam - General 1994 Psychiatric mood and affect Overall: normal mood and affect 09/25/2012 None Full Exam - General 1994 Musculoskeletal spine, ribs and pelvis Palpation: tender at greater trochanter 09/25/2012 None Full Exam - General 1994 Constitutional general appearance Overall: well developed 08/27/2012 None Full Exam - General 1994 Constitutional general appearance Overall: in no acute distress 08/27/2012 None Full Exam - General 1994 Constitutional general appearance Overall: well nourished 08/27/2012 None Full Exam - General 1994 Eyes pupils and irises Overall: pupils equal, round, reactive to light and accomodation 08/27/2012 None Full Exam - General 1995 Respiratory auscultation Overall: breath sounds clear bilaterally 08/27/2012 None Full Exam - General 1994 Respiratory respiratory effort/rhythm Overall: no retractions 08/27/2012 None Full Exam - General 1995 Respiratory respiratory effort/rhythm Overall: normal rate 08/27/2012 None Full Exam - General 1994 Cardiovascular auscultation of heart Overall: regular rate 08/27/2012 None Full Exam - General 1994 Cardiovascular auscultation of heart Overall: normal heart sounds 08/27/2012 None Full Exam - General 1994 Cardiovascular auscultation of heart Overall: no murmurs 08/27/2012 None Full Exam - General 1994 Abdomen abdominal exam Contour: rounded 08/27/2012 None Full Exam - General 1994 Abdomen abdominal exam Contour: protuberant 08/27/2012 None Full Exam - General 1994 Musculoskeletal head and neck Overall: head atraumatic 08/27/2012 None Full Exam - General 1994 Musculoskeletal head and neck Overall: cervical spine benign 08/27/2012 None Full Exam - General 1994 Neurologic gait Conventional walking: wide-based 08/27/2012 None Full Exam - General 1994 Psychiatric orientation/consciousness Overall: oriented to person, place and time 08/27/2012 None Full Exam - General 1994 Psychiatric mood and affect Overall: normal mood and affect 08/27/2012 None Full Exam - General 1994 Constitutional general appearance Overall: well developed 06/25/2012 None Full Exam - General 1994 Constitutional general appearance Overall: in no acute distress 06/25/2012 None Full Exam - General 1994 Constitutional general appearance Overall: well nourished 06/25/2012 None Full Exam - General 1994 Eyes pupils and irises Overall: pupils equal, round, reactive to light and accomodation 06/25/2012 None Full Exam - General 1994 Respiratory auscultation Overall: breath sounds clear bilaterally 06/25/2012 None Full Exam - General 1994 Respiratory respiratory effort/rhythm Overall: no retractions 06/25/2012 None Full Exam - General 1994 Respiratory respiratory effort/rhythm Overall: normal rate 06/25/2012 None Full Exam - General 1994 Cardiovascular auscultation of heart Overall: regular rate 06/25/2012 None Full Exam - General 1994 Cardiovascular auscultation of heart Overall: normal heart sounds 06/25/2012 None Full Exam - General 1994 Cardiovascular auscultation of heart Overall: no murmurs 06/25/2012 None Full Exam - General 1994 Abdomen abdominal exam Contour: rounded 06/25/2012 None Full Exam - General 1994 Abdomen abdominal exam Contour: protuberant 06/25/2012 None Full Exam - General 1994 Musculoskeletal head and neck Overall: head atraumatic 06/25/2012 None Full Exam - General 1994 Musculoskeletal head and neck Overall: cervical spine benign 06/25/2012 None Full Exam - General 1994 Neurologic gait Conventional walking: wide-based 06/25/2012 None Full Exam - General 1994 Psychiatric orientation/consciousness Overall: oriented to person, place and time 06/25/2012 None Full Exam - General 1994 Psychiatric mood and affect Overall: normal mood and affect 06/25/2012 None Full Exam - General 1994 Constitutional general appearance Overall: well developed 06/03/2012 None Full Exam - General 1994 Constitutional general appearance Overall: in no acute distress 06/03/2012 None Full Exam - General 1994 Constitutional general appearance Overall: well nourished 06/03/2012 None Full Exam - General 1994 Eyes pupils and irises Overall: pupils equal, round, reactive to light and accomodation 06/03/2012 None Full Exam - General 1994 Respiratory auscultation Overall: breath sounds clear bilaterally 06/03/2012 None Full Exam - General 1994 Respiratory respiratory effort/rhythm Overall: no retractions 06/03/2012 None Full Exam - General 1994 Respiratory respiratory effort/rhythm Overall: normal rate 06/03/2012 None Full Exam - General 1994 Cardiovascular auscultation of heart Overall: regular rate 06/03/2012 None Full Exam - General 1994 Cardiovascular auscultation of heart Overall: normal heart sounds 06/03/2012 None Full Exam - General 1994 Cardiovascular auscultation of heart Overall: no murmurs 06/03/2012 None Full Exam - General 1994 Abdomen abdominal exam Contour: rounded 06/03/2012 None Full Exam - General 1994 Abdomen abdominal exam Contour: protuberant 06/03/2012 None Full Exam - General 1994 Musculoskeletal head and neck Overall: head atraumatic 06/03/2012 None Full Exam - General 1994 Musculoskeletal head and neck Overall: cervical spine benign 06/03/2012 None Full Exam - General 1994 Neurologic gait Conventional walking: wide-based 06/03/2012 None Full Exam - General 1994 Psychiatric orientation/consciousness Overall: oriented to person, place and time 06/03/2012 None Full Exam - General 1994 Psychiatric mood and affect Overall: normal mood and affect 06/03/2012 None Full Exam - General 1994 Constitutional general appearance Overall: well developed 04/24/2012 None Full Exam - General 1994 Constitutional general appearance Overall: in no acute distress 04/24/2012 None Full Exam - General 1994 Constitutional general appearance Overall: well nourished 04/24/2012 None Full Exam - General 1994 Eyes pupils and irises Overall: pupils equal, round, reactive to light and accomodation 04/24/2012 None Full Exam - General 1994 Respiratory auscultation Overall: breath sounds clear bilaterally 04/24/2012 None Full Exam - General 1994 Respiratory respiratory effort/rhythm Overall: no retractions 04/24/2012 None Full Exam - General 1994 Respiratory respiratory effort/rhythm Overall: normal rate 04/24/2012 None Full Exam - General 1994 Cardiovascular auscultation of heart Overall: regular rate 04/24/2012 None Full Exam - General 1994 Cardiovascular auscultation of heart Overall: normal heart sounds 04/24/2012 None Full Exam - General 1994 Cardiovascular auscultation of heart Overall: no murmurs 04/24/2012 None Full Exam - General 1994 Abdomen abdominal exam Overall: no tenderness 04/24/2012 None Full Exam - General 1994 Abdomen abdominal exam Overall: normal bowel sounds 04/24/2012 None Full Exam - General 1994 Abdomen abdominal exam Contour: rounded 04/24/2012 None Full Exam - General 1994 Abdomen abdominal exam Contour: protuberant 04/24/2012 None Full Exam - General 1994 Musculoskeletal head and neck Overall: head atraumatic 04/24/2012 None Full Exam - General 1994 Musculoskeletal head and neck Overall: cervical spine benign 04/24/2012 None Full Exam - General 1994 Integument inspection of skin Location: face 04/24/2012 by right eyelid Full Exam - General 1994 Integument inspection of skin Rash/Lesions: nodule 04/24/2012 None Full Exam - General 1994 Integument inspection of skin Pigmentation: erythematous 04/24/2012 None Full Exam - General 1994 Neurologic gait Conventional walking: wide-based 04/24/2012 None Full Exam - General 1994 Psychiatric orientation/consciousness Overall: oriented to person, place and time 04/24/2012 None Full Exam - General 1994 Psychiatric mood and affect Overall: normal mood and affect 04/24/2012 None Full Exam - General 1995 Constitutional general appearance Overall: well developed 04/09/2012 None Full Exam - General 1994 Constitutional general appearance Overall: in no acute distress 04/09/2012 None Full Exam - General 1994 Constitutional general appearance Overall: well nourished 04/09/2012 None Full Exam - General 1994 Eyes pupils and irises Overall: pupils equal, round, reactive to light and accomodation 04/09/2012 None Full Exam - General 1994 Respiratory auscultation Overall: breath sounds clear bilaterally 04/09/2012 None Full Exam - General 1994 Respiratory respiratory effort/rhythm Overall: no retractions 04/09/2012 None Full Exam - General 1994 Respiratory respiratory effort/rhythm Overall: normal rate 04/09/2012 None Full Exam - General 1994 Cardiovascular auscultation of heart Overall: regular rate 04/09/2012 None Full Exam - General 1994 Cardiovascular auscultation of heart Overall: normal heart sounds 04/09/2012 None Full Exam - General 1994 Cardiovascular auscultation of heart Overall: no murmurs 04/09/2012 None Full Exam - General 1994 Abdomen abdominal exam Overall: no tenderness 04/09/2012 None Full Exam - General 1994 Abdomen abdominal exam Overall: normal bowel sounds 04/09/2012 None Full Exam - General 1994 Abdomen abdominal exam Contour: rounded 04/09/2012 None Full Exam - General 1994 Abdomen abdominal exam Contour: protuberant 04/09/2012 None Full Exam - General 1994 Musculoskeletal head and neck Overall: head atraumatic 04/09/2012 None Full Exam - General 1994 Musculoskeletal head and neck Overall: cervical spine benign 04/09/2012 None Full Exam - General 1994 Integument inspection of skin Location: face 04/09/2012 by right eyelid Full Exam - General 1994 Integument inspection of skin Rash/Lesions: nodule 04/09/2012 None Full Exam - General 1994 Integument inspection of skin Pigmentation: erythematous 04/09/2012 None Full Exam - General 1994 Neurologic gait Conventional walking: wide-based 04/09/2012 None Full Exam - General 1994 Psychiatric orientation/consciousness Overall: oriented to person, place and time 04/09/2012 None Full Exam - General 1994 Psychiatric mood and affect Overall: normal mood and affect 04/09/2012 None Full Exam - General 1994 Constitutional general appearance Overall: well nourished 03/04/2012 None Full Exam - General 1994 Constitutional general appearance Overall: well developed 03/04/2012 None Full Exam - General 1994 Constitutional general appearance Overall: in no acute distress 03/04/2012 None Full Exam - General 1994 Eyes pupils and irises Overall: pupils equal, round, reactive to light and accomodation 03/04/2012 None Full Exam - General 1994 Respiratory auscultation Overall: breath sounds clear bilaterally 03/04/2012 None Full Exam - General 1994 Respiratory respiratory effort/rhythm Overall: no retractions 03/04/2012 None Full Exam - General 1994 Respiratory respiratory effort/rhythm Overall: normal rate 03/04/2012 None Full Exam - General 1994 Cardiovascular auscultation of heart Overall: regular rate 03/04/2012 None Full Exam - General 1994 Cardiovascular auscultation of heart Overall: normal heart sounds 03/04/2012 None Full Exam - General 1994 Cardiovascular auscultation of heart Overall: no murmurs 03/04/2012 None Full Exam - General 1994 Abdomen abdominal exam Overall: no tenderness 03/04/2012 None Full Exam - General 1994 Abdomen abdominal exam Overall: normal bowel sounds 03/04/2012 None Full Exam - General 1994 Abdomen abdominal exam Contour: rounded 03/04/2012 None Full Exam - General 1994 Abdomen abdominal exam Contour: protuberant 03/04/2012 None Full Exam - General 1994 Musculoskeletal head and neck Overall: head atraumatic 03/04/2012 None Full Exam - General 1994 Musculoskeletal head and neck Overall: cervical spine benign 03/04/2012 None Full Exam - General 1994 Neurologic gait Conventional walking: wide-based 03/04/2012 None Full Exam - General 1994 Psychiatric orientation/consciousness Overall: oriented to person, place and time 03/04/2012 None Full Exam - General 1994 Psychiatric mood and affect Overall: normal mood and affect 03/04/2012 None Full Exam - General 1994 Integument inspection of skin Location: face 03/04/2012 by right eyelid Full Exam - General 1994 Integument inspection of skin Rash/Lesions: nodule 03/04/2012 None Full Exam - General 1994 Integument inspection of skin Pigmentation: erythematous 03/04/2012 None Full Exam - General 1994 Constitutional general appearance Overall: in no acute distress 12/03/2011 None Full Exam - General 1994 Integument inspection of skin Location: left hand 12/03/2011 2 lesions on fingers Full Exam - General 1994 Integument inspection of skin Location: right hand 12/03/2011 None Full Exam - General 1994 Integument inspection of skin Pigmentation: hypopigmentation 12/03/2011 None Full Exam - General 1994 Integument inspection of skin Consistency: thick 12/03/2011 None Full Exam - General 1994 Integument inspection of skin Consistency: dry 12/03/2011 None Full Exam - General 1994 Musculoskeletal head and neck Overall: head atraumatic 12/03/2011 None Full Exam - General 1994 Musculoskeletal head and neck Overall: cervical spine benign 12/03/2011 None Full Exam - General 1994 Psychiatric orientation/consciousness Overall: oriented to person, place and time 12/03/2011 None Full Exam - General 1994 Psychiatric mood and affect Overall: normal mood and affect 12/03/2011 None Full Exam - General 1994 Cardiovascular auscultation of heart Overall: regular rate 12/03/2011 None Full Exam - General 1994 Respiratory auscultation Overall: breath sounds clear bilaterally 12/03/2011 None Full Exam - General 1994 Respiratory respiratory effort/rhythm Overall: no retractions 12/03/2011 None Full Exam - General 1994 Respiratory respiratory effort/rhythm Overall: normal rate 12/03/2011 None Full Exam - General 1994 Cardiovascular auscultation of heart Overall: normal heart sounds 12/03/2011 None Full Exam - General 1994 Cardiovascular auscultation of heart Overall: no murmurs 12/03/2011 None Full Exam - General 1994 Constitutional general appearance Overall: well nourished 12/03/2011 None Full Exam - General 1994 Constitutional general appearance Overall: well developed 12/03/2011 None Full Exam - General 1994 Eyes pupils and irises Overall: pupils equal, round, reactive to light and accomodation 12/03/2011 None Full Exam - General 1994 Abdomen abdominal exam Overall: no tenderness 12/03/2011 None Full Exam - General 1994 Abdomen abdominal exam Overall: normal bowel sounds 12/03/2011 None Full Exam - General 1994 Abdomen abdominal exam Contour: rounded 12/03/2011 None Full Exam - General 1994 Abdomen abdominal exam Contour: protuberant 12/03/2011 None Full Exam - General 1994 Neurologic gait Conventional walking: wide-based 12/03/2011 None Full Exam - General 1994 Cardiovascular auscultation of heart Overall: regular rate 10/31/2011 None Full Exam - General 1995 Cardiovascular auscultation of heart Overall: normal heart sounds 10/31/2011 None Full Exam - General 1994 Cardiovascular auscultation of heart Overall: no murmurs 10/31/2011 None Full Exam - General 1995 Musculoskeletal head and neck Overall: head atraumatic 10/31/2011 None Full Exam - General 1995 Musculoskeletal head and neck Overall: cervical spine benign 10/31/2011 None Full Exam - General 1995 Integument inspection of skin Location: left hand 10/31/2011 2 lesions on fingers Full Exam - General 1995 Integument inspection of skin Location: right hand 10/31/2011 None Full Exam - General 1995 Integument inspection of skin Pigmentation: hypopigmentation 10/31/2011 None Full Exam - General 1995 Integument inspection of skin Consistency: thick 10/31/2011 None Full Exam - General 1994 Integument inspection of skin Consistency: dry 10/31/2011 None Full Exam - General 1994 Psychiatric orientation/consciousness Overall: oriented to person, place and time 10/31/2011 None Full Exam - General 1994 Psychiatric mood and affect Overall: normal mood and affect 10/31/2011 None Full Exam - General 1994 Eyes pupils and irises Overall: pupils equal, round, reactive to light and accomodation 10/31/2011 None Full Exam - General 1994 Abdomen abdominal exam Overall: no tenderness 10/31/2011 None Full Exam - General 1994 Constitutional general appearance Overall: well nourished 10/31/2011 None Full Exam - General 1994 Constitutional general appearance Overall: well developed 10/31/2011 None Full Exam - General 1994 Constitutional general appearance Overall: in no acute distress 10/31/2011 None Full Exam - General 1994 Respiratory auscultation Overall: breath sounds clear bilaterally 10/31/2011 None Full Exam - General 1994 Respiratory respiratory effort/rhythm Overall: no retractions 10/31/2011 None Full Exam - General 1994 Respiratory respiratory effort/rhythm Overall: normal rate 10/31/2011 None Full Exam - General 1994 Abdomen abdominal exam Overall: normal bowel sounds 10/31/2011 None Full Exam - General 1994 Abdomen abdominal exam Contour: protuberant 10/31/2011 None Full Exam - General 1994 Abdomen abdominal exam Contour: rounded 10/31/2011 None Full Exam - General 1994 Neurologic gait Conventional walking: wide-based 10/31/2011 None Full Exam - General 1994 Constitutional general appearance Overall: well nourished 08/29/2011 None Full Exam - General 1994 Constitutional general appearance Overall: well developed 08/29/2011 None Full Exam - General 1994 Constitutional general appearance Overall: in no acute distress 08/29/2011 None Full Exam - General 1994 Respiratory auscultation Overall: breath sounds clear bilaterally 08/29/2011 None Full Exam - General 1994 Respiratory respiratory effort/rhythm Overall: no retractions 08/29/2011 None Full Exam - General 1994 Respiratory respiratory effort/rhythm Overall: normal rate 08/29/2011 None Full Exam - General 1994 Cardiovascular auscultation of heart Overall: regular rate 08/29/2011 None Full Exam - General 1994 Cardiovascular auscultation of heart Overall: normal heart sounds 08/29/2011 None Full Exam - General 1994 Cardiovascular auscultation of heart Overall: no murmurs 08/29/2011 None Full Exam - General 1994 Musculoskeletal head and neck Overall: head atraumatic 08/29/2011 None Full Exam - General 1994 Musculoskeletal head and neck Overall: cervical spine benign 08/29/2011 None Full Exam - General 1994 Integument inspection of skin Location: left hand 08/29/2011 2 lesions on fingers Full Exam - General 1994 Integument inspection of skin Location: right hand 08/29/2011 None Full Exam - General 1994 Integument inspection of skin Pigmentation: hypopigmentation 08/29/2011 None Full Exam - General 1994 Integument inspection of skin Consistency: thick 08/29/2011 None Full Exam - General 1994 Integument inspection of skin Consistency: dry 08/29/2011 None Full Exam - General 1994 Psychiatric orientation/consciousness Overall: oriented to person, place and time 08/29/2011 None Full Exam - General 1994 Psychiatric mood and affect Overall: normal mood and affect 08/29/2011 None Full Exam - General 1994 Abdomen abdominal exam Overall: no tenderness 08/29/2011 None Full Exam - General 1994 Abdomen abdominal exam Overall: normal bowel sounds 08/29/2011 None Full Exam - Dermatology Integument insp & palp - left upper extremity Location: on the hand 07/24/2011 None Full Exam - Dermatology Integument insp & palp - left upper extremity Location: on the fingers 07/24/2011 None Full Exam - Dermatology Integument insp & palp - left upper extremity Appearance: hyperkeratotic 07/24/2011 None Full Exam - Dermatology Integument insp & palp - left upper extremity Appearance: thick 07/24/2011 None Full Exam - Dermatology Integument insp & palp - left upper extremity Appearance: tender 07/24/2011 None Full Exam - Dermatology Integument insp & palp - left upper extremity Number: four 07/24/2011 None Full Exam - Dermatology Integument insp & palp - left upper extremity Consistency: firm 07/24/2011 None Full Exam - Dermatology Integument insp & palp - left upper extremity Consistency: rough 07/24/2011 None Full Exam - General 1994 Psychiatric orientation/consciousness Overall: oriented to person, place and time 07/18/2011 None Full Exam - General 1994 Psychiatric mood and affect Overall: normal mood and affect 07/18/2011 None Full Exam - General 1994 Integument inspection of skin Location: left hand 07/18/2011 2 lesions on fingers Full Exam - General 1994 Integument inspection of skin Location: right hand 07/18/2011 None Full Exam - General 1994 Musculoskeletal head and neck Overall: cervical spine benign 07/18/2011 None Full Exam - General 1994 Musculoskeletal head and neck Overall: head atraumatic 07/18/2011 None Full Exam - General 1994 Cardiovascular auscultation of heart Overall: regular rate 07/18/2011 None Full Exam - General 1994 Cardiovascular auscultation of heart Overall: normal heart sounds 07/18/2011 None Full Exam - General 1994 Cardiovascular auscultation of heart Overall: no murmurs 07/18/2011 None Full Exam - General 1994 Constitutional general appearance Overall: well nourished 07/18/2011 None Full Exam - General 1994 Constitutional general appearance Overall: well developed 07/18/2011 None Full Exam - General 1994 Constitutional general appearance Overall: in no acute distress 07/18/2011 None Full Exam - General 1994 Respiratory auscultation Overall: breath sounds clear bilaterally 07/18/2011 None Full Exam - General 1994 Respiratory respiratory effort/rhythm Overall: normal rate 07/18/2011 None Full Exam - General 1994 Respiratory respiratory effort/rhythm Overall: no retractions 07/18/2011 None Full Exam - General 1994 Integument inspection of skin Pigmentation: hypopigmentation 07/18/2011 None Full Exam - General 1994 Integument inspection of skin Consistency: thick 07/18/2011 None Full Exam - General 1994 Integument inspection of skin Consistency: dry 07/18/2011 None Procedures Procedure Codes Date IIV4 VACC NO PRSV 3 YRS+ IM CPT-4: 92838 05/21/2018 IIV4 VACC NO PRSV 3 YRS+ IM CPT-4: 15775 05/21/2018 ADMIN INFLUENZA VIRUS VAC CPT-4: G0008 05/21/2018 ADMIN PNEUMOCOCCAL VACCINE SNOMED CT: 49142789 CPT-4: G0009 05/21/2018 FLU VAC NO PRSV 4 DONNA 3 YRS+ CPT-4: 74295 05/21/2018 PPPS, SUBSEQ VISIT CPT- 4: G0439 12/24/2017 TRIAMCINOLONE ACET INJ NOS CPT-4: J3301 12/24/2017 DRAIN/INJECT JOINT/BURSA CPT-4: 36876 12/24/2017 REMOVAL OF SKIN TAGS <W/15 CPT-4: 52470 07/02/2017 ADMIN INFLUENZA VIRUS VAC CPT-4: G0008 06/28/2017 FLU VAC NO PRSV 4 DONNA 3 YRS+ CPT-4: 51467 06/28/2017 TRIAMCINOLONE ACET INJ NOS CPT-4: J3301 06/04/2017 PPPS, SUBSEQ VISIT CPT- 4: G0439 12/13/2016 PNEUMOCOCCAL VACC [address]: 02453913 CPT-4: 55944 12/13/2016 ADMIN PNEUMOCOCCAL VACCINE SNOMED CT: 07150501 CPT-4: G0009 12/13/2016 DRAIN/INJECT JOINT/BURSA CPT-4: 96767 08/30/2016 TRIAMCINOLONE ACET INJ NOS CPT-4: J3301 08/30/2016 URINALYSIS NONAUTO W/O SCOPE CPT-4: 55089 07/13/2016 INJ TRIGGER POINT 1/2 MUSCL CPT-4: 92671 06/21/2016 ADMIN INFLUENZA VIRUS VAC CPT-4: G0008 05/24/2016 FLU VACC PRSV FREE INC ANTIG Formatting Model/CDA Sections, Assigned to/Judy Pierre CPT-4: [id number] 05/24/2016 URINALYSIS NONAUTO W/O SCOPE CPT-4: 27436 10/03/2015 ADMIN INFLUENZA VIRUS VAC CPT-4: G0008 07/20/2015 IMMUNIZATION ADMIN CPT- 4: 32088 07/20/2015 FLU VACC PRSV FREE INC ANTIG Formatting Model/CDA Sections, Assigned to/Judy Pierre CPT-4: [id number] 07/20/2015 URINALYSIS NONAUTO W/O SCOPE CPT-4: 55723 05/18/2015 URINALYSIS NONAUTO W/O SCOPE CPT-4: 49233 05/09/2015 ADMIN INFLUENZA VIRUS VAC CPT-4: G0008 06/03/2014 FLU VAC NO PRSV 4 DONNA 3 YRS+ Assigned to/Judy Pierre CPT-4: [id number] 06/03/2014 TRIAMCINOLONE ACET INJ NOS CPT-4: J3301 05/04/2014 ADMIN INFLUENZA VIRUS VAC CPT-4: G0008 07/01/2013 FLULAVAL VACC, 3 YRS & >, IM CPT-4: Q2036 07/01/2013 PRESCRIP TRANSMIT VIA ERX SY CPT-4: G8553 03/04/2013 PRESCRIP TRANSMIT VIA ERX SY CPT-4: G8553 02/04/2013 DRAIN/INJECT JOINT/BURSA CPT-4: 23437 09/25/2012 ADMIN INFLUENZA VIRUS VAC CPT-4: G0008 06/04/2012 FLULAVAL VACC, 3 YRS & >, IM CPT-4: Q2036 06/04/2012 ADMIN PNEUMOCOCCAL VACCINE SNOMED CT: 45783325 CPT-4: G0009 06/04/2012 PRESCRIP TRANSMIT VIA ERX SY CPT-4: G8553 04/09/2012 ROCEPHIN, PER 250 MG CPT- 4: J0696 03/04/2012 PRESCRIP TRANSMIT VIA ERX SY CPT-4: G8553 03/04/2012 DESTRUCT PREMALG LESION CPT-4: 63711 07/24/2011 DESTRUCT PREMALG LES 2-14 CPT-4: 94172 07/24/2011 DESTRUCT PREMALG LES 2-14 CPT-4: 68270 07/18/2011 DESTRUCT PREMALG LESION CPT-4: 69762 07/18/2011 Vital Signs Date Vital 01/08/2019 Blood Pressure 1: 150/78 Code: 8480-6 Blood Pressure 2: 142/70 Code: 8480-6 BMI: 37.9 Code: 40688-1 Heart Rate 1: 59 bpm Height: 5'6" SpO2: 98% Weight: 235 lbs 10/09/2018 Blood Pressure 1: 148/80 Code: 8480-6 BMI: 42.3 Code: 93022-8 Heart Rate 1: 66 bpm Height: 5'6" SpO2: 97% Weight: 262 lbs 07/07/2018 Blood Pressure 1: 140/76 Code: 8480-6 BMI: 45.2 Code: 88315-5 Heart Rate 1: 66 bpm Height: 5'6" SpO2: 98% Weight: 280 lbs 05/21/2018 Blood Pressure 1: 164/78 Code: 8480-6 Blood Pressure 1: 132/74 Code: 8480-6 BMI: 44.5 Code: 90509-7 Heart Rate 1: 63 bpm Height: 5'6" SpO2: 96% Weight: 276 lbs 03/06/2018 Blood Pressure 1: 140/80 Code: 8480-6 BMI: 45.6 Code: 20449-5 Heart Rate 1: 94 bpm Height: 5'6" SpO2: 96% Weight: 282 lbs 4 oz 12/24/2017 Blood Pressure 1: 148/72 Code: 8480-6 BMI: 44.7 Code: 36386-5 Heart Rate 1: 70 bpm Height: 5'6" SpO2: 95% Waist Measure (cm): 132 cm Weight: 277 lbs 11/21/2017 Blood Pressure 1: 134/76 Code: 8480-6 BMI: 44.4 Code: 18219-7 Heart Rate 1: 63 bpm Height: 5'6" SpO2: 97% Weight: 275 lbs 07/29/2017 Blood Pressure 1: 148/76 Code: 8480-6 BMI: 43.7 Code: 15334-2 Heart Rate 1: 75 bpm Height: 5'6" SpO2: 97% Weight: 275 lbs 07/02/2017 Blood Pressure 1: 148/78 Code: 8480-6 BMI: 43.4 Code: 91216-3 Heart Rate 1: 55 bpm Height: 5'6" SpO2: 97% Weight: 273 lbs 06/04/2017 Blood Pressure 1: 132/58 Code: 8480-6 BMI: 43.1 Code: 91865-7 Heart Rate 1: 64 bpm Height: 5'6" SpO2: 96% Weight: 271 lbs 04/03/2017 Blood Pressure 1: 124/70 Code: 8480-6 BMI: 44.2 Code: 93451-7 Heart Rate 1: 70 bpm Height: 5'6" Height: 5'6" SpO2: 95% Weight: 278 lbs 12/13/2016 Blood Pressure 1: 150/78 Code: 8480-6 BMI: 44.2 Code: 44680-0 Heart Rate 1: 67 bpm Height: 5'6" SpO2: 97% Weight: 278 lbs 12/05/2016 Blood Pressure 1: 122/80 Code: 8480-6 Blood Pressure 1: 126/90 Code: 8480-6 BMI: 44.2 Code: 11414-2 Heart Rate 1: 70 bpm Height: 5'6" SpO2: 97% Weight: 278 lbs 08/30/2016 Blood Pressure 1: 134/70 Code: 8480-6 Blood Pressure 1: 134/78 Code: 8480-6 BMI: 43.9 Code: 68843-4 Heart Rate 1: 62 bpm Height: 5'6" SpO2: 98% Weight: 276 lbs 07/13/2016 Blood Pressure 1: 140/68 Code: 8480-6 BMI: 43.2 Code: 61612-2 Heart Rate 1: 59 bpm Height: 5'6" SpO2: 96% Weight: 272 lbs 06/21/2016 Blood Pressure 1: 140/70 Code: 8480-6 BMI: 43.2 Code: 56875-4 Heart Rate 1: 70 bpm Height: 5'6" SpO2: 94% Weight: 272 lbs 05/24/2016 Blood Pressure 1: 138/70 Code: 8480-6 Blood Pressure 1: 138/72 Code: 8480-6 BMI: 43.2 Code: 77904-0 Heart Rate 1: 65 bpm Height: 5'6" SpO2: 97% Weight: 272 lbs 01/24/2016 Blood Pressure 1: 122/62 Code: 8480-6 BMI: 43.1 Code: 86689-1 Heart Rate 1: 61 bpm Height: 5'6" SpO2: 97% Weight: 271 lbs 10/27/2015 Blood Pressure 1: 122/64 Code: 8480-6 BMI: 42.4 Code: 78074-5 Heart Rate 1: 58 bpm Height: 5'6" SpO2: 97% Weight: 267 lbs 09/21/2015 Blood Pressure 1: 128/70 Code: 8480-6 BMI: 43.2 Code: 38824-0 Heart Rate 1: 65 bpm Height: 5'6" SpO2: 98% Weight: 272 lbs 08/17/2015 Blood Pressure 1: 120/64 Code: 8480-6 BMI: 44.8 Code: 53294-4 Heart Rate 1: 57 bpm Height: 5'6" SpO2: 97% Weight: 282 lbs 07/20/2015 Blood Pressure 1: 144/70 Code: 8480-6 BMI: 45.3 Code: 07021-6 Heart Rate 1: 67 bpm Height: 5'6" SpO2: 95% Weight: 285 lbs 05/09/2015 Blood Pressure 1: 180/60 Code: 8480-6 Blood Pressure 2: 140/80 Code: 8480-6 04/20/2015 Blood Pressure 1: 138/64 Code: 8480-6 BMI: 45.6 Code: 20119-5 Heart Rate 1: 60 bpm Height: 5'6" SpO2: 98% Weight: 287 lbs 02/28/2015 Blood Pressure 1: 142/78 Code: 8480-6 BMI: 45.8 Code: 81736-2 Heart Rate 1: 68 bpm Height: 5'6" Weight: 288 lbs 02/14/2015 Blood Pressure 1: 142/78 Code: 8480-6 BMI: 45.3 Code: 77985-8 Heart Rate 1: 88 bpm Height: 5'6" Weight: 285 lbs 11/11/2014 Blood Pressure 1: 152/72 Code: 8480-6 Heart Rate 1: 64 bpm Weight: 282 lbs 10/04/2014 Blood Pressure 1: 140/72 Code: 8480-6 BMI: 45.6 Code: 47645-2 Heart Rate 1: 76 bpm Height: 5'6" Weight: 287 lbs 08/02/2014 Blood Pressure 1: 132/62 Code: 8480-6 BMI: 45.6 Code: 25701-1 Heart Rate 1: 64 bpm Height: 5'6" Weight: 287 lbs 06/15/2014 Blood Pressure 1: 142/62 Code: 8480-6 BMI: 44.7 Code: 53408-1 Heart Rate 1: 68 bpm Height: 5'6" SpO2: 97% Weight: 281 lbs 05/04/2014 Blood Pressure 1: 140/78 Code: 8480-6 BMI: 45.0 Code: 90401-5 Heart Rate 1: 60 bpm Height: 5'6" SpO2: 98% Weight: 283 lbs 04/19/2014 Blood Pressure 1: 130/62 Code: 8480-6 BMI: 44.7 Code: 92422-3 Heart Rate 1: 56 bpm Height: 5'6" Weight: 281 lbs 02/08/2014 Blood Pressure 1: 118/58 Code: 8480-6 BMI: 45.3 Code: 63691-9 Heart Rate 1: 60 bpm Height: 5'6" Weight: 285 lbs 01/13/2014 Blood Pressure 1: 112/52 Code: 8480-6 BMI: 44.2 Code: 67109-9 Heart Rate 1: 60 bpm Height: 5'6" Weight: 278 lbs 10/14/2013 Blood Pressure 1: 132/70 Code: 8480-6 BMI: 43.1 Code: 27291-8 Heart Rate 1: 60 bpm Height: 5'6" Weight: 271 lbs 07/01/2013 Blood Pressure 1: 158/76 Code: 8480-6 Heart Rate 1: 52 bpm Weight: 263 lbs 05/13/2013 Weight: 268 lbs 04/15/2013 Weight: 272 lbs 03/04/2013 Blood Pressure 1: 146/68 Code: 8480-6 BMI: 45.6 Code: 44174-0 Heart Rate 1: 68 bpm Height: 5'6" Weight: 287 lbs 02/04/2013 Blood Pressure 1: 140/68 Code: 8480-6 BMI: 46.1 Code: 28207-3 Heart Rate 1: 64 bpm Height: 5'6" Weight: 290 lbs 12/03/2012 Blood Pressure 1: 124/62 Code: 8480-6 BMI: 44.8 Code: 23872-2 Heart Rate 1: 64 bpm Height: 5'6" Respiratory Rate: 20 bpm Weight: 282 lbs 10/14/2012 Blood Pressure 1: 138/64 Code: 8480-6 Heart Rate 1: 64 bpm Weight: 277 lbs 8 oz 09/29/2012 Blood Pressure 1: 128/60 Code: 8480-6 Heart Rate 1: 64 bpm Weight: 280 lbs 09/25/2012 Blood Pressure 1: 134/72 Code: 8480-6 Heart Rate 1: 60 bpm Weight: 279 lbs 8 oz 08/27/2012 Blood Pressure 1: 146/76 Code: 8480-6 BMI: 44.7 Code: 16643-0 Heart Rate 1: 60 bpm Height: 5'6" Weight: 281 lbs 06/25/2012 Blood Pressure 1: 128/76 Code: 8480-6 BMI: 43.7 Code: 74813-4 Heart Rate 1: 72 bpm Height: 5'6" Weight: 275 lbs 06/03/2012 Blood Pressure 1: 136/62 Code: 8480-6 BMI: 43.2 Code: 32083-7 Heart Rate 1: 72 bpm Height: 5'6" Respiratory Rate: 20 bpm Weight: 272 lbs 04/24/2012 Blood Pressure 1: 116/60 Code: 8480-6 BMI: 42.3 Code: 60123-7 Heart Rate 1: 68 bpm Height: 5'6" Respiratory Rate: 16 bpm Weight: 266 lbs 04/09/2012 Blood Pressure 1: 150/82 Code: 8480-6 Heart Rate 1: 72 bpm Weight: 03/04/2012 Blood Pressure 1: 124/70 Code: 8480-6 Heart Rate 1: 72 bpm Respiratory Rate: 16 bpm Weight: 277 lbs 12/03/2011 Blood Pressure 1: 120/60 Code: 8480-6 BMI: 44.8 Code: 26864-2 Heart Rate 1: 68 bpm Height: 5'6" Respiratory Rate: 16 bpm Weight: 282 lbs 10/31/2011 Blood Pressure 1: 120/60 Code: 8480-6 BMI: 44.8 Code: 44497-6 Heart Rate 1: 74 bpm Height: 5'6" Respiratory Rate: 16 bpm Weight: 282 lbs 08/29/2011 Blood Pressure 1: 152/76 Code: 8480-6 BMI: 44.5 Code: 98448-7 Heart Rate 1: 66 bpm Height: 5'6" Respiratory Rate: 16 bpm Weight: 280 lbs 07/24/2011 Blood Pressure 1: 142/80 Code: 8480-6 BMI: 44.8 Code: 30355-4 Heart Rate 1: 66 bpm Height: 5'6" Respiratory Rate: 16 bpm Weight: 282 lbs 07/18/2011 Blood Pressure 1: 136/60 Code: 8480-6 BMI: 44.5 Code: 95263-7 Heart Rate 1: 72 bpm Height: 5'6" Respiratory Rate: 16 bpm Weight: 280 lbs Functional Status No Functional Status data History of Present Illness Symptom Name Status Result Effective Date Notes Onset of Symptom onset as an adult 01/08/2019 None Quality insulin dependent 01/08/2019 None Quality chronic 01/08/2019 None Quality improving 01/08/2019 None Severity moderate 01/08/2019 None Alleviating Factors medication 01/08/2019 None Alleviating Factors insulin 01/08/2019 None Exacerbating Factors diet 01/08/2019 None Pertinent Findings Denies nausea 01/08/2019 None Quality chronic 01/08/2019 None Quality primary hypertension 01/08/2019 None Onset and Resolution ongoing 01/08/2019 None Onset of Symptom during adulthood 01/08/2019 None Blood Pressure Values patient checking blood pressure at home - did not bring in readings 01/08/2019 -Checks occasionally Alleviating Factors medication 01/08/2019 None Pertinent Findings Denies dizziness 01/08/2019 None Pertinent Findings Denies dyspnea 01/08/2019 None Pertinent Findings Denies edema 01/08/2019 None Onset and Resolution gradual in onset 01/08/2019 None Onset and Resolution ongoing 01/08/2019 None Onset of Symptom during adulthood 01/08/2019 None Significant Medications statin 01/08/2019 None Alleviating Factors medication 01/08/2019 None Exacerbating Factors diet 01/08/2019 None Quality increased TG 01/08/2019 None Glucose monitoring daily 01/08/2019 3x will be decreasing now that he is off insulin. Onset of Symptom onset as an adult 10/09/2018 None Quality insulin dependent 10/09/2018 None Quality chronic 10/09/2018 None Quality improving 10/09/2018 None Severity moderate 10/09/2018 None Alleviating Factors medication 10/09/2018 None Alleviating Factors insulin 10/09/2018 None Exacerbating Factors diet 10/09/2018 None Pertinent Findings Denies nausea 10/09/2018 None Quality chronic 10/09/2018 None Quality primary hypertension 10/09/2018 None Onset and Resolution ongoing 10/09/2018 None Onset of Symptom during adulthood 10/09/2018 None Blood Pressure Values patient checking blood pressure at home - did not bring in readings 10/09/2018 -Checks occasionally Alleviating Factors medication 10/09/2018 None Pertinent Findings Denies dizziness 10/09/2018 None Pertinent Findings Denies dyspnea 10/09/2018 None Pertinent Findings Denies edema 10/09/2018 None Onset and Resolution gradual in onset 10/09/2018 None Onset and Resolution ongoing 10/09/2018 None Onset of Symptom during adulthood 10/09/2018 None Significant Medications statin 10/09/2018 None Alleviating Factors medication 10/09/2018 None Exacerbating Factors diet 10/09/2018 None Quality increased TG 10/09/2018 None Glucose monitoring before meals 10/09/2018 None Glucose monitoring bedtime 10/09/2018 None diabetes mellitus Onset of Symptom onset as an adult 07/07/2018 None diabetes mellitus Quality chronic 07/07/2018 None diabetes mellitus Quality improving 07/07/2018 None diabetes mellitus Severity moderate 07/07/2018 None diabetes mellitus Alleviating Factors insulin 07/07/2018 None diabetes mellitus Exacerbating Factors diet 07/07/2018 None diabetes mellitus Pertinent Findings Denies nausea 07/07/2018 None hypertension Quality primary hypertension 07/07/2018 None hypertension Onset and Resolution ongoing 07/07/2018 None hypertension Onset of Symptom during adulthood 07/07/2018 None hypertension Blood Pressure Values patient checking blood pressure at home - did not bring in readings 07/07/2018 -Checks occasionally hypertension Alleviating Factors medication 07/07/2018 None hypertension Pertinent Findings Denies dizziness 07/07/2018 None hypertension Pertinent Findings Denies dyspnea 07/07/2018 None hypertension Pertinent Findings Denies edema 07/07/2018 None hyperlipidemia Onset and Resolution gradual in onset 07/07/2018 None hyperlipidemia Onset and Resolution ongoing 07/07/2018 None hyperlipidemia Onset of Symptom during adulthood 07/07/2018 None hyperlipidemia Significant Medications statin 07/07/2018 None hyperlipidemia Alleviating Factors medication 07/07/2018 None hyperlipidemia Exacerbating Factors diet 07/07/2018 None hyperlipidemia Quality increased TG 07/07/2018 None diabetes mellitus Test results HgbA1c level 7.6 07/07/2018 None hypertension Quality chronic 07/07/2018 None diabetes mellitus Quality insulin dependent 07/07/2018 None diabetes mellitus Test results Pt checking blood glucose readings, did not bring results to clinic 07/07/2018 None diabetes mellitus Glucose monitoring occasional glucose testing 07/07/2018 None diabetes mellitus Alleviating Factors medication 07/07/2018 None low back pain Location on both sides 07/07/2018 None low back pain Quality intermittent 07/07/2018 None low back pain Frequency of Episodes increasing 07/07/2018 None low back pain Limitation on Activities allows weight bearing activity 07/07/2018 None low back pain Limitation on Activities moderately limits activities 07/07/2018 None low back pain Onset and Resolution ongoing 07/07/2018 None low back pain Onset of Symptom several months ago 07/07/2018 None low back pain Exacerbating Factors activity 07/07/2018 None diabetes mellitus Onset of Symptom onset as an adult 05/21/2018 None diabetes mellitus Quality chronic 05/21/2018 None diabetes mellitus Quality IDDM 05/21/2018 None diabetes mellitus Quality improving 05/21/2018 None diabetes mellitus Severity moderate 05/21/2018 None diabetes mellitus Alleviating Factors insulin 05/21/2018 None diabetes mellitus Exacerbating Factors diet 05/21/2018 None diabetes mellitus Pertinent Findings Denies nausea 05/21/2018 None hypertension Quality intermittent 05/21/2018 None hypertension Quality primary hypertension 05/21/2018 None hypertension Onset and Resolution ongoing 05/21/2018 None hypertension Onset of Symptom during adulthood 05/21/2018 None hypertension Blood Pressure Values patient checking blood pressure at home - did not bring in readings 05/21/2018 -Checks occasionally hypertension Alleviating Factors medication 05/21/2018 None hypertension Pertinent Findings Denies anxiety 05/21/2018 None hypertension Pertinent Findings Denies decreased energy 05/21/2018 None hypertension Pertinent Findings Denies dizziness 05/21/2018 None hypertension Pertinent Findings dyspnea 05/21/2018 None hypertension Pertinent Findings Denies edema 05/21/2018 None hyperlipidemia Onset and Resolution gradual in onset 05/21/2018 None hyperlipidemia Onset and Resolution ongoing 05/21/2018 None hyperlipidemia Onset of Symptom during adulthood 05/21/2018 None hyperlipidemia Significant Medications statin 05/21/2018 None hyperlipidemia Alleviating Factors medication 05/21/2018 None hyperlipidemia Exacerbating Factors diet 05/21/2018 None hyperlipidemia Quality improving 05/21/2018 None hyperlipidemia Quality increased TG 05/21/2018 None dyskinesia or tremor Location diffusely 05/21/2018 None dyskinesia or tremor Quality constant 05/21/2018 None dyskinesia or tremor Onset and Resolution ongoing 05/21/2018 None dyskinesia or tremor Onset and Resolution worse during the day 05/21/2018 None diabetes mellitus Onset of Symptom onset as an adult 03/06/2018 None diabetes mellitus Quality chronic 03/06/2018 None diabetes mellitus Quality IDDM 03/06/2018 None diabetes mellitus Quality improving 03/06/2018 None diabetes mellitus Severity moderate 03/06/2018 None diabetes mellitus Alleviating Factors insulin 03/06/2018 None diabetes mellitus Exacerbating Factors diet 03/06/2018 None diabetes mellitus Pertinent Findings Denies nausea 03/06/2018 None hypertension Quality intermittent 03/06/2018 None hypertension Quality primary hypertension 03/06/2018 None hypertension Onset and Resolution ongoing 03/06/2018 None hypertension Onset of Symptom during adulthood 03/06/2018 None hypertension Blood Pressure Values patient checking blood pressure at home - did not bring in readings 03/06/2018 -Checks occasionally hypertension Alleviating Factors medication 03/06/2018 None hypertension Pertinent Findings Denies anxiety 03/06/2018 None hypertension Pertinent Findings Denies decreased energy 03/06/2018 None hypertension Pertinent Findings Denies dizziness 03/06/2018 None hypertension Pertinent Findings dyspnea 03/06/2018 None hypertension Pertinent Findings Denies edema 03/06/2018 None hyperlipidemia Onset and Resolution gradual in onset 03/06/2018 None hyperlipidemia Onset and Resolution ongoing 03/06/2018 None hyperlipidemia Onset of Symptom during adulthood 03/06/2018 None hyperlipidemia Significant Medications statin 03/06/2018 None hyperlipidemia Alleviating Factors medication 03/06/2018 None hyperlipidemia Exacerbating Factors diet 03/06/2018 None hyperlipidemia Quality improving 03/06/2018 None hyperlipidemia Quality increased TG 03/06/2018 None Annual Medicare Wellness Exam Alcohol Use does not drink any alcohol 12/24/2017 None Annual Medicare Wellness Exam Aspirin Use yes 12/24/2017 None Annual Medicare Wellness Exam Blood Glucose (self reported) high (126 or higher) 12/24/2017 None Annual Medicare Wellness Exam Blood Pressure (self reported) high (140/90 or higher) 12/24/2017 None Annual Medicare Wellness Exam Cholesterol (self reported) don't know 12/24/2017 None Annual Medicare Wellness Exam Depression (last 6 months) some of the time 12/24/2017 None Annual Medicare Wellness Exam Depression or Hopelessness almost never 12/24/2017 None Annual Medicare Wellness Exam Describe Your Health good 12/24/2017 None Annual Medicare Wellness Exam Exercise Habits does not exercise 12/24/2017 None Annual Medicare Wellness Exam Handling Stress usually rene effectively 12/24/2017 None Annual Medicare Wellness Exam Hemaglobin A-1C (self reported) don't know 12/24/2017 None Annual Medicare Wellness Exam Hours of Sleep 6 12/24/2017 None Annual Medicare Wellness Exam Interaction with Friends yes 12/24/2017 None Annual Medicare Wellness Exam Interests & Pleasure most of the time 12/24/2017 None Annual Medicare Wellness Exam Life Satisfaction satisfied 12/24/2017 None Annual Medicare Wellness Exam Motor Vehicle Safety always fastens seat belt: y 12/24/2017 None Annual Medicare Wellness Exam Motor Vehicle Safety drives after drinking: n 12/24/2017 None Annual Medicare Wellness Exam Motor Vehicle Safety rides with someone who has been drinking: n 12/24/2017 None Annual Medicare Wellness Exam Nutrition servings of fried food / high fat foods per day: 1 12/24/2017 None Annual Medicare Wellness Exam Nutrition servings of high fiber / whole grain per day: 2 12/24/2017 None Annual Medicare Wellness Exam Nutrition servings of vegetables / fruit per day: 2 12/24/2017 None Annual Medicare Wellness Exam Smoking and Tobacco Use non smoker 12/24/2017 None Annual Medicare Wellness Exam Social & Emotional Support usually 12/24/2017 None Annual Medicare Wellness Exam Stress some of the time 12/24/2017 None Annual Medicare Wellness Exam Sun Exposure protects skin when outdoors: y 12/24/2017 None diabetes mellitus Onset of Symptom onset as an adult 11/21/2017 None diabetes mellitus Quality chronic 11/21/2017 None diabetes mellitus Quality IDDM 11/21/2017 None diabetes mellitus Quality improving 11/21/2017 None diabetes mellitus Severity moderate 11/21/2017 None diabetes mellitus Alleviating Factors insulin 11/21/2017 None diabetes mellitus Exacerbating Factors diet 11/21/2017 None diabetes mellitus Pertinent Findings Denies nausea 11/21/2017 None hypertension Quality intermittent 11/21/2017 None hypertension Quality primary hypertension 11/21/2017 None hypertension Onset and Resolution ongoing 11/21/2017 None hypertension Onset of Symptom during adulthood 11/21/2017 None hypertension Blood Pressure Values patient checking blood pressure at home - did not bring in readings 11/21/2017 -Checks occasionally hypertension Alleviating Factors medication 11/21/2017 None hypertension Pertinent Findings Denies dizziness 11/21/2017 None hypertension Pertinent Findings dyspnea 11/21/2017 None hypertension Pertinent Findings Denies edema 11/21/2017 None hyperlipidemia Onset and Resolution gradual in onset 11/21/2017 None hyperlipidemia Onset and Resolution ongoing 11/21/2017 None hyperlipidemia Onset of Symptom during adulthood 11/21/2017 None hyperlipidemia Significant Medications statin 11/21/2017 None hyperlipidemia Alleviating Factors medication 11/21/2017 None hyperlipidemia Exacerbating Factors diet 11/21/2017 None hyperlipidemia Quality improving 11/21/2017 None hyperlipidemia Quality increased TG 11/21/2017 None hypertension Pertinent Findings Denies decreased energy 11/21/2017 None hypertension Pertinent Findings Denies anxiety 11/21/2017 None earache Location right ear 11/21/2017 None earache Quality acute 11/21/2017 None earache Onset and Resolution sudden in onset 11/21/2017 None earache Onset and Resolution ongoing 11/21/2017 None earache Onset of Symptom 3 weeks ago 11/21/2017 None earache Severity mild 11/21/2017 None earache Triggers no known triggers 11/21/2017 None diabetes mellitus Onset of Symptom onset as an adult 07/29/2017 None diabetes mellitus Quality chronic 07/29/2017 None diabetes mellitus Quality IDDM 07/29/2017 None diabetes mellitus Severity moderate 07/29/2017 None diabetes mellitus Alleviating Factors insulin 07/29/2017 None diabetes mellitus Exacerbating Factors diet 07/29/2017 None hypertension Onset and Resolution ongoing 07/29/2017 None hypertension Onset of Symptom during adulthood 07/29/2017 None hypertension Alleviating Factors medication 07/29/2017 None hypertension Pertinent Findings Denies dizziness 07/29/2017 None hypertension Pertinent Findings dyspnea 07/29/2017 None hypertension Quality primary hypertension 07/29/2017 None diabetes mellitus Glucose monitoring daily 07/29/2017 None diabetes mellitus Test results Pt checking blood glucose at home, see scanned readings 07/29/2017 None hypertension Blood Pressure Values patient checking blood pressure at home - did not bring in readings 07/29/2017 -Checks occasionally hyperlipidemia Onset and Resolution gradual in onset 07/29/2017 None hyperlipidemia Onset and Resolution ongoing 07/29/2017 None hyperlipidemia Onset of Symptom during adulthood 07/29/2017 None hyperlipidemia Quality increased TG 07/29/2017 None hyperlipidemia Alleviating Factors medication 07/29/2017 None hyperlipidemia Exacerbating Factors diet 07/29/2017 None hyperlipidemia Significant Medications statin 07/29/2017 None diabetes mellitus Pertinent Findings Denies nausea 07/29/2017 None hypertension Pertinent Findings Denies edema 07/29/2017 None hypertension Quality intermittent 07/29/2017 None hyperlipidemia Quality improving 07/29/2017 None diabetes mellitus Quality improving 07/29/2017 None skin lesion Onset and Resolution sudden in onset 07/02/2017 None skin lesion Onset of Symptom 4 days ago 07/02/2017 None skin lesion Frequency of Episodes daily 07/02/2017 None skin lesion Location left upper leg 07/02/2017 None skin lesion Quality enlarging 07/02/2017 None vaccination against influenza Location deltoid- Rt 06/28/2017 None back pain Location lumbar-sacral spine 06/04/2017 None back pain Quality aching 06/04/2017 None back pain Quality intermittent 06/04/2017 None back pain Onset and Resolution gradual in onset 06/04/2017 None back pain Onset of Symptom _ months ago 06/04/2017 None back pain Frequency of Episodes daily 06/04/2017 None back pain Radiating down the right leg 06/04/2017 None back pain Severity moderate 06/04/2017 None diabetes mellitus Onset of Symptom onset as an adult 04/03/2017 None diabetes mellitus Quality chronic 04/03/2017 None diabetes mellitus Quality IDDM 04/03/2017 None diabetes mellitus Severity moderate 04/03/2017 None diabetes mellitus Alleviating Factors insulin 04/03/2017 None diabetes mellitus Exacerbating Factors diet 04/03/2017 None hypertension Onset and Resolution ongoing 04/03/2017 None hypertension Onset of Symptom during adulthood 04/03/2017 None hypertension Blood Pressure Values not checking blood pressure at home 04/03/2017 None hypertension Alleviating Factors medication 04/03/2017 None cough Location in the throat 04/03/2017 None cough Quality worsening 04/03/2017 None cough Onset and Resolution ongoing 04/03/2017 None cough Onset of Symptom _ months ago 04/03/2017 None cough Frequency of Episodes daily 04/03/2017 None cough Pertinent Findings Denies chest discomfort 04/03/2017 None cough Pertinent Findings Denies dyspnea 04/03/2017 None cough Pertinent Findings Denies fever 04/03/2017 None hypertension Pertinent Findings Denies dizziness 04/03/2017 None hypertension Pertinent Findings Denies dyspnea 04/03/2017 None diabetes mellitus Glucose monitoring daily 04/03/2017 None diabetes mellitus Pertinent Findings Denies dyspnea 04/03/2017 None Annual Medicare Wellness Exam Alcohol Use does not drink any alcohol 12/13/2016 None Annual Medicare Wellness Exam Aspirin Use yes 12/13/2016 None Annual Medicare Wellness Exam Blood Glucose (self reported) high (126 or higher) 12/13/2016 None Annual Medicare Wellness Exam Hemaglobin A-1C (self reported) high (8 or higher) 12/13/2016 None Annual Medicare Wellness Exam Blood Pressure (self reported) low / normal (120/80) 12/13/2016 None Annual Medicare Wellness Exam Cholesterol (self reported) don't know 12/13/2016 None Annual Medicare Wellness Exam Depression (last 6 months) almost never 12/13/2016 None Annual Medicare Wellness Exam Depression or Hopelessness almost never 12/13/2016 None Annual Medicare Wellness Exam Handling Stress usually rene effectively 12/13/2016 None Annual Medicare Wellness Exam Describe Your Health fair 12/13/2016 None Annual Medicare Wellness Exam Exercise Habits exercises 5 days per week 12/13/2016 None Annual Medicare Wellness Exam Exercise Habits exercises 15-30 minutes per day 12/13/2016 None Annual Medicare Wellness Exam Hours of Sleep 7-8 12/13/2016 None Annual Medicare Wellness Exam Interaction with Friends yes 12/13/2016 None Annual Medicare Wellness Exam Interests & Pleasure most of the time 12/13/2016 None Annual Medicare Wellness Exam Life Satisfaction satisfied 12/13/2016 None Annual Medicare Wellness Exam Motor Vehicle Safety always fastens seat belt: yes 12/13/2016 None Annual Medicare Wellness Exam Motor Vehicle Safety rides with someone who has been drinking: no 12/13/2016 None Annual Medicare Wellness Exam Motor Vehicle Safety drives after drinking: does not drink 12/13/2016 None Annual Medicare Wellness Exam Smoking and Tobacco Use non smoker 12/13/2016 None Annual Medicare Wellness Exam Social & Emotional Support always 12/13/2016 None Annual Medicare Wellness Exam Stress some of the time 12/13/2016 None Annual Medicare Wellness Exam Sun Exposure protects skin when outdoors: yes 12/13/2016 None Annual Medicare Wellness Exam Nutrition servings of fried food / high fat foods per day: 1 12/13/2016 None Annual Medicare Wellness Exam Nutrition servings of high fiber / whole grain per day: 1 12/13/2016 None Annual Medicare Wellness Exam Nutrition servings of vegetables / fruit per day: 1 12/13/2016 None diabetes mellitus Onset of Symptom onset as an adult 12/05/2016 None diabetes mellitus Quality chronic 12/05/2016 None diabetes mellitus Quality IDDM 12/05/2016 None diabetes mellitus Severity moderate 12/05/2016 None diabetes mellitus Alleviating Factors insulin 12/05/2016 None diabetes mellitus Exacerbating Factors diet 12/05/2016 None hypertension Onset and Resolution ongoing 12/05/2016 None hypertension Onset of Symptom during adulthood 12/05/2016 None hypertension Blood Pressure Values not checking blood pressure at home 12/05/2016 None hypertension Alleviating Factors medication 12/05/2016 None hyperlipidemia Onset and Resolution gradual in onset 12/05/2016 None hyperlipidemia Onset and Resolution ongoing 12/05/2016 None hyperlipidemia Onset of Symptom during adulthood 12/05/2016 None hyperlipidemia Alleviating Factors medication 12/05/2016 None hyperlipidemia Exacerbating Factors diet 12/05/2016 None diabetes mellitus Onset of Symptom onset as an adult 08/30/2016 None diabetes mellitus Quality chronic 08/30/2016 None diabetes mellitus Quality IDDM 08/30/2016 None diabetes mellitus Severity moderate 08/30/2016 None diabetes mellitus Alleviating Factors insulin 08/30/2016 None diabetes mellitus Exacerbating Factors diet 08/30/2016 None diabetes mellitus Pertinent Findings Denies nausea 08/30/2016 None hypertension Onset and Resolution ongoing 08/30/2016 None hypertension Onset of Symptom during adulthood 08/30/2016 None hypertension Blood Pressure Values not checking blood pressure at home 08/30/2016 None hypertension Alleviating Factors medication 08/30/2016 None hypertension Pertinent Findings Denies dizziness 08/30/2016 None hypertension Pertinent Findings dyspnea 08/30/2016 None hypertension Pertinent Findings Denies edema 08/30/2016 None dyskinesia or tremor Location on both hands 08/30/2016 -worse in the left dyskinesia or tremor Quality intermittent 08/30/2016 None dyskinesia or tremor Onset and Resolution ongoing 08/30/2016 None diabetes mellitus Test results Pt checking blood glucose readings, did not bring results to clinic 08/30/2016 None diabetes mellitus Glucose monitoring daily 08/30/2016 once or twice daily dyskinesia or tremor Onset of Symptom months ago 08/30/2016 None diarrhea Quality intermittent 08/30/2016 None diarrhea Quality loose 08/30/2016 None diarrhea Onset and Resolution ongoing 08/30/2016 None diarrhea Onset of Symptom 1+ months ago 08/30/2016 None diarrhea Alleviating Factors medication 08/30/2016 (probiotics) skin lesion Quality acute 08/30/2016 None skin lesion Quality raised 08/30/2016 None skin lesion Quality fixed 08/30/2016 None skin lesion Quality non-tender 08/30/2016 None urinary incontinence Quality constant 07/13/2016 None urinary incontinence Onset and Resolution sudden in onset 07/13/2016 None urinary incontinence Onset of Symptom 2 weeks ago 07/13/2016 None urinary incontinence Limitation on Activities does not limit activities 07/13/2016 None urinary incontinence Frequency of Episodes decreasing 07/13/2016 None urinary incontinence Triggers no known associated factors 07/13/2016 None urinary incontinence Pertinent Findings back pain 07/13/2016 None urinary incontinence Pertinent Findings Denies edema 07/13/2016 None urinary incontinence Pertinent Findings Denies fever 07/13/2016 None back pain Location thoracic spine 06/21/2016 None back pain Quality constant 06/21/2016 None back pain Onset and Resolution ongoing 06/21/2016 None back pain Onset of Symptom 3 weeks ago 06/21/2016 None back pain Frequency of Episodes daily 06/21/2016 None back pain Pertinent Findings Denies extremity numbness 06/21/2016 None back pain Pertinent Findings Denies extremity weakness 06/21/2016 None back pain Pertinent Findings sleep disturbance 06/21/2016 None back pain Triggers no known associated factors 06/21/2016 None back pain Mechanism of injury unknown 06/21/2016 None diabetes mellitus Onset of Symptom onset as an adult 05/24/2016 None diabetes mellitus Quality chronic 05/24/2016 None diabetes mellitus Quality IDDM 05/24/2016 None diabetes mellitus Severity moderate 05/24/2016 None diabetes mellitus Alleviating Factors insulin 05/24/2016 None diabetes mellitus Exacerbating Factors diet 05/24/2016 None hypertension Onset and Resolution ongoing 05/24/2016 None hypertension Onset of Symptom during adulthood 05/24/2016 None hypertension Blood Pressure Values not checking blood pressure at home 05/24/2016 None hypertension Pertinent Findings Denies dizziness 05/24/2016 None hypertension Pertinent Findings dyspnea 05/24/2016 None hypertension Pertinent Findings Denies edema 05/24/2016 None hypertension Alleviating Factors medication 05/24/2016 None diabetes mellitus Test results Pt checking blood glucose readings, did not bring results to clinic 05/24/2016 None diabetes mellitus Glucose monitoring daily 05/24/2016 2-3 times per day diabetes mellitus Pertinent Findings Denies nausea 05/24/2016 None dyskinesia or tremor Location on both hands 05/24/2016 -worse in the left dyskinesia or tremor Quality intermittent 05/24/2016 None dyskinesia or tremor Onset and Resolution ongoing 05/24/2016 None dyskinesia or tremor Onset of Symptom 6+ months ago 05/24/2016 None back pain Location in the midline of in the lower back area 01/24/2016 reports stiffness in the morning back pain Onset and Resolution ongoing 01/24/2016 None back pain Onset and Resolution worse in the morning 01/24/2016 None back pain Frequency of Episodes daily 01/24/2016 None diabetes mellitus Onset of Symptom onset as an adult 01/24/2016 None diabetes mellitus Quality chronic 01/24/2016 None diabetes mellitus Quality IDDM 01/24/2016 None diabetes mellitus Severity moderate 01/24/2016 None diabetes mellitus Alleviating Factors insulin 01/24/2016 None diabetes mellitus Exacerbating Factors diet 01/24/2016 None diabetes mellitus Pertinent Findings Denies dizziness 01/24/2016 None diabetes mellitus Pertinent Findings Denies dyspnea 01/24/2016 None back pain Location in the midline of in the lower back area 10/27/2015 reports stiffness in the morning back pain Onset and Resolution ongoing 10/27/2015 None back pain Onset and Resolution worse in the morning 10/27/2015 None back pain Frequency of Episodes daily 10/27/2015 None diabetes mellitus Onset of Symptom onset as an adult 10/27/2015 None diabetes mellitus Quality chronic 10/27/2015 None diabetes mellitus Quality IDDM 10/27/2015 None diabetes mellitus Severity moderate 10/27/2015 None diabetes mellitus Alleviating Factors insulin 10/27/2015 None diabetes mellitus Exacerbating Factors diet 10/27/2015 None diabetes mellitus Pertinent Findings Denies dizziness 10/27/2015 None diabetes mellitus Pertinent Findings Denies dyspnea 10/27/2015 None paresthesia Location on both feet 09/21/2015 None paresthesia Quality intermittent 09/21/2015 has diabetic shoes paresthesia Pertinent Findings back pain 09/21/2015 when he first gets up paresthesia Pertinent Findings Denies dizziness 09/21/2015 None paresthesia Pertinent Findings Denies dyspnea 09/21/2015 None back pain Location in the midline of in the lower back area 09/21/2015 reports stiffness in the morning back pain Onset and Resolution ongoing 09/21/2015 None back pain Onset and Resolution worse in the morning 09/21/2015 None back pain Frequency of Episodes daily 09/21/2015 None hypertension Quality chronic 09/21/2015 None hypertension Onset and Resolution ongoing 09/21/2015 None hypertension Blood Pressure Values patient checking blood pressure at home - did not bring in readings 09/21/2015 Checks occasionally hypertension Pertinent Findings Denies dizziness 09/21/2015 None hypertension Pertinent Findings Denies dyspnea 09/21/2015 None hypertension Pertinent Findings Denies edema 09/21/2015 None diabetes mellitus Onset of Symptom onset as an adult 09/21/2015 None diabetes mellitus Quality chronic 09/21/2015 None diabetes mellitus Quality IDDM 09/21/2015 None diabetes mellitus Severity moderate 09/21/2015 None diabetes mellitus Pertinent Findings Denies dizziness 09/21/2015 None diabetes mellitus Pertinent Findings Denies dyspnea 09/21/2015 None diabetes mellitus Test results Pt checking blood glucose at home, see scanned readings 09/21/2015 None diabetes mellitus Glucose monitoring fasting 09/21/2015 None diabetes mellitus Glucose monitoring before meals 09/21/2015 None diabetes mellitus Exacerbating Factors diet 09/21/2015 None diabetes mellitus Alleviating Factors insulin 09/21/2015 None paresthesia Location on both feet 08/17/2015 None paresthesia Quality intermittent 08/17/2015 has diabetic shoes paresthesia Pertinent Findings back pain 08/17/2015 when he first gets up paresthesia Pertinent Findings Denies dizziness 08/17/2015 None paresthesia Pertinent Findings Denies dyspnea 08/17/2015 None back pain Location in the midline of in the lower back area 08/17/2015 reports stiffness in the morning back pain Onset and Resolution ongoing 08/17/2015 None back pain Onset and Resolution worse in the morning 08/17/2015 None back pain Frequency of Episodes daily 08/17/2015 None hypertension Quality chronic 08/17/2015 None hypertension Onset and Resolution ongoing 08/17/2015 None hypertension Blood Pressure Values patient checking blood pressure at home - did not bring in readings 08/17/2015 Only checks it when he feels "a certain way" hypertension Pertinent Findings Denies dizziness 08/17/2015 None hypertension Pertinent Findings Denies dyspnea 08/17/2015 None hypertension Pertinent Findings Denies edema 08/17/2015 None diabetes mellitus Onset of Symptom onset as an adult 08/17/2015 None diabetes mellitus Quality chronic 08/17/2015 None diabetes mellitus Severity moderate 08/17/2015 None diabetes mellitus Pertinent Findings Denies dizziness 08/17/2015 brought monitor to plug into computer diabetes mellitus Pertinent Findings Denies dyspnea 08/17/2015 None cough Location in the throat 08/17/2015 None cough Quality dry 08/17/2015 None cough Onset and Resolution gradual in onset 08/17/2015 None cough Onset of Symptom 1 years ago 08/17/2015 None cough Triggers no known associated factors 08/17/2015 None diabetes mellitus Test results Pt checking blood glucose at home, see scanned readings 08/17/2015 None diabetes mellitus Glucose monitoring before meals 08/17/2015 None diabetes mellitus Glucose monitoring bedtime 08/17/2015 None diabetes mellitus Quality IDDM 08/17/2015 None cough Quality productive 08/17/2015 has had a bit of a cold cough Exacerbating Factors position change 08/17/2015 when he lays down at night it gets worse cough Frequency of Episodes unchanged 08/17/2015 None paresthesia Location on both feet 07/20/2015 None paresthesia Quality intermittent 07/20/2015 needs diabetic shoes paresthesia Onset of Symptom 1 months ago 07/20/2015 Reports that he normally wears socks to bed, but didnt one night and he had to get up and put them on- couldnt sleep. paresthesia Pertinent Findings back pain 07/20/2015 None paresthesia Pertinent Findings Denies dizziness 07/20/2015 None paresthesia Pertinent Findings dyspnea 07/20/2015 gradual onset- only notices sometimes back pain Location in the midline of in the lower back area 07/20/2015 reports stiffness in the morning back pain Onset and Resolution ongoing 07/20/2015 None back pain Onset and Resolution worse in the morning 07/20/2015 None back pain Frequency of Episodes daily 07/20/2015 None hypertension Quality chronic 07/20/2015 None hypertension Onset and Resolution ongoing 07/20/2015 None hypertension Blood Pressure Values not checking blood pressure at home 07/20/2015 None hypertension Blood Pressure Values patient checking blood pressure at home - did not bring in readings 07/20/2015 None hypertension Pertinent Findings Denies dizziness 07/20/2015 None hypertension Pertinent Findings Denies dyspnea 07/20/2015 None hypertension Pertinent Findings Denies edema 07/20/2015 None diabetes mellitus Onset of Symptom onset as an adult 07/20/2015 None diabetes mellitus Quality chronic 07/20/2015 None diabetes mellitus Severity moderate 07/20/2015 None diabetes mellitus Pertinent Findings Denies dizziness 07/20/2015 brought monitor to plug into computer diabetes mellitus Pertinent Findings Denies dyspnea 07/20/2015 None cough Location in the throat 07/20/2015 None cough Quality dry 07/20/2015 None cough Onset and Resolution gradual in onset 07/20/2015 None cough Onset of Symptom 1 years ago 07/20/2015 None cough Frequency of Episodes increasing 07/20/2015 None cough Triggers no known associated factors 07/20/2015 None hypertension Quality chronic 04/20/2015 None hypertension Onset and Resolution ongoing 04/20/2015 None hypertension Blood Pressure Values not checking blood pressure at home 04/20/2015 None hypertension Pertinent Findings Denies dizziness 04/20/2015 None hypertension Pertinent Findings Denies dyspnea 04/20/2015 None hypertension Pertinent Findings Denies edema 04/20/2015 None diabetes mellitus Pertinent Findings Denies dizziness 04/20/2015 brought monitor to plug into computer diabetes mellitus Pertinent Findings Denies dyspnea 04/20/2015 None paresthesia Location on both feet 04/20/2015 None paresthesia Onset of Symptom 1 months ago 04/20/2015 Reports that he normally wears socks to bed, but didnt one night and he had to get up and put them on- couldnt sleep. paresthesia Quality intermittent 04/20/2015 needs diabetic shoes paresthesia Pertinent Findings back pain 04/20/2015 None paresthesia Pertinent Findings Denies dizziness 04/20/2015 None paresthesia Pertinent Findings dyspnea 04/20/2015 gradual onset- only notices sometimes back pain Location in the midline of in the lower back area 04/20/2015 reports stiffness in the morning back pain Onset and Resolution worse in the morning 04/20/2015 None back pain Frequency of Episodes daily 04/20/2015 None back pain Onset and Resolution ongoing 04/20/2015 None diabetes mellitus Onset of Symptom onset as an adult 04/20/2015 None diabetes mellitus Quality chronic 04/20/2015 None diabetes mellitus Severity moderate 04/20/2015 None hypertension Blood Pressure Values patient checking blood pressure at home - did not bring in readings 04/20/2015 None cerumen Location in both ears 02/28/2015 denies pain cerumen Onset and Resolution ongoing 02/28/2015 using sweet oil and bulb syringe with water. Has gotten some wax out of right side. hypertension Quality chronic 02/14/2015 None hypertension Onset and Resolution ongoing 02/14/2015 None hypertension Blood Pressure Values not checking blood pressure at home 02/14/2015 None hypertension Pertinent Findings Denies dizziness 02/14/2015 None hypertension Pertinent Findings Denies dyspnea 02/14/2015 None hypertension Pertinent Findings Denies edema 02/14/2015 None diabetes mellitus Pertinent Findings Denies dizziness 02/14/2015 None diabetes mellitus Pertinent Findings Denies dyspnea 02/14/2015 None diabetes mellitus Glucose monitoring daily 02/14/2015 None diabetes mellitus Blood glucose levels greater than 120 02/14/2015 165 this am diabetes mellitus Test results Pt not checking blood glucose readings at home 02/14/2015 None hypertension Onset and Resolution ongoing 11/11/2014 None hypertension Blood Pressure Values not checking blood pressure at home 11/11/2014 None hypertension Pertinent Findings Denies dizziness 11/11/2014 None hypertension Pertinent Findings Denies dyspnea 11/11/2014 None hypertension Pertinent Findings Denies edema 11/11/2014 None diabetes mellitus Onset of Symptom onset as an adult 11/11/2014 None diabetes mellitus Pertinent Findings Denies dizziness 11/11/2014 None diabetes mellitus Pertinent Findings Denies dyspnea 11/11/2014 None hypertension Quality chronic 11/11/2014 None hypertension Onset and Resolution ongoing 10/04/2014 None hypertension Blood Pressure Values not checking blood pressure at home 10/04/2014 None hypertension Pertinent Findings Denies dizziness 10/04/2014 None hypertension Pertinent Findings Denies dyspnea 10/04/2014 None hypertension Pertinent Findings Denies edema 10/04/2014 None diabetes mellitus Onset of Symptom onset as an adult 10/04/2014 None diabetes mellitus Pertinent Findings Denies dizziness 10/04/2014 None diabetes mellitus Pertinent Findings Denies dyspnea 10/04/2014 None gastroesophageal reflux Quality intermittent 10/04/2014 None gastroesophageal reflux Onset of Symptom 1- 2 months ago 10/04/2014 None gastroesophageal reflux Pertinent Findings Denies poor feeding 10/04/2014 None gastroesophageal reflux Pertinent Findings heartburn 10/04/2014 eats tums hypertension Blood Pressure Values not checking blood pressure at home 08/02/2014 None hypertension Pertinent Findings Denies dizziness 08/02/2014 None hypertension Pertinent Findings Denies dyspnea 08/02/2014 None hypertension Pertinent Findings Denies edema 08/02/2014 None diabetes mellitus Pertinent Findings Denies dizziness 08/02/2014 None diabetes mellitus Pertinent Findings Denies dyspnea 08/02/2014 None diabetes mellitus Test results Pt checking blood glucose at home, see scanned readings 08/02/2014 None diabetes mellitus Glucose monitoring daily 08/02/2014 None diabetes mellitus Onset of Symptom onset as an adult 08/02/2014 None hypertension Onset and Resolution ongoing 08/02/2014 None _ _ - pt concerned about prostatic enlargement - he states that he has been dribbling - he notes that he has smeeled a urine- like odor about his body more frequently - 06/15/2014 None _ Quality worsening 06/15/2014 None hip pain Location on the right 05/04/2014 None hip pain Quality dull ache 05/04/2014 hurts while walking and laying in bed hip pain Timing of Episodes at night 05/04/2014 waking him up at night hip pain Onset of Symptom 2-3 months ago 05/04/2014 None hip pain Onset and Resolution ongoing 05/04/2014 None hip pain Radiating radiates 05/04/2014 right flank area hip pain Mechanism of injury unknown 05/04/2014 None hip pain Pertinent Findings Denies pain at rest 05/04/2014 None hip pain Pertinent Findings pain with movement 05/04/2014 None hypertension Blood Pressure Values not checking blood pressure at home 04/19/2014 None hypertension Pertinent Findings Denies dizziness 04/19/2014 None hypertension Pertinent Findings Denies dyspnea 04/19/2014 None hypertension Pertinent Findings Denies edema 04/19/2014 None diabetes mellitus Test results Pt checking blood glucose at home, see scanned readings 04/19/2014 None diabetes mellitus Exercise no exercise 04/19/2014 None diabetes mellitus Pertinent Findings Denies dizziness 04/19/2014 None diabetes mellitus Pertinent Findings Denies dyspnea 04/19/2014 None hypertension Quality chronic 02/08/2014 None hypertension Blood Pressure Values not checking blood pressure at home 02/08/2014 None hypertension Pertinent Findings Denies dizziness 02/08/2014 None hypertension Pertinent Findings Denies dyspnea 02/08/2014 None hypertension Pertinent Findings Denies edema 02/08/2014 None diabetes mellitus Test results Pt checking blood glucose readings, did not bring results to clinic 02/08/2014 None memory loss Onset and Resolution gradual in onset 02/08/2014 - pt states that he initially realized he was having a problem with his memory when he could not remember what the general clerk was talking about at [facility] - pt states that he has had trouble remembering where he was when someone asked him if he went to a specific event - memory loss Onset of Symptom 6+ months ago 02/08/2014 None memory loss Limitation on Activities does not limit activities 02/08/2014 None memory loss Quality chronic 02/08/2014 None memory loss Pertinent Findings Denies ataxia 02/08/2014 None memory loss Pertinent Findings Denies difficulty reading 02/08/2014 None memory loss Pertinent Findings Denies difficulty writing 02/08/2014 None memory loss Pertinent Findings Denies motor deficits 02/08/2014 None memory loss Pertinent Findings Denies personality changes 02/08/2014 None memory loss Triggers no known associated factors 02/08/2014 None memory loss Frequency of Episodes increasing 02/08/2014 None hypertension Blood Pressure Values not checking blood pressure at home 01/13/2014 None hypertension Pertinent Findings Denies dizziness 01/13/2014 None hypertension Pertinent Findings dyspnea 01/13/2014 None hypertension Pertinent Findings Denies edema 01/13/2014 None hypertension Pertinent Findings obesity 01/13/2014 None hypertension Pertinent Findings Denies palpitations 01/13/2014 None diabetes mellitus Test results Pt checking blood glucose at home, see scanned readings 01/13/2014 None diabetes mellitus Pertinent Findings Denies nausea 01/13/2014 None hypertension Quality chronic 01/13/2014 None hypertension Onset and Resolution ongoing 01/13/2014 None hypertension Onset of Symptom during adulthood 01/13/2014 None hypertension Significant Family History heart disease 01/13/2014 None diabetes mellitus Severity mild 01/13/2014 None diabetes mellitus Test results HgbA1c level 7.5 01/13/2014 None diabetes mellitus Onset of Symptom onset as an adult 01/13/2014 None diabetes mellitus Quality insulin dependent 01/13/2014 None diabetes mellitus Quality chronic 01/13/2014 None diabetes mellitus Severity moderate 01/13/2014 None hypertension Blood Pressure Values patient checking blood pressure at home - did not bring in readings 01/13/2014 None hypertension Blood Pressure Values pt checking blood pressure - see scanned document 01/13/2014 None hypertension Triggers no known associated factors 01/13/2014 None hypertension Alleviating Factors medication 01/13/2014 None hypertension Exacerbating Factors stress 01/13/2014 None foot pain Location on the left 01/13/2014 None foot pain Location in the forefoot region 01/13/2014 None foot pain Quality tenderness 01/13/2014 None foot pain Severity mild 01/13/2014 None foot pain Significant Medical Conditions obesity 01/13/2014 None diabetes mellitus Test results Pt checking blood glucose at home, see scanned readings 10/14/2013 None diabetes mellitus Glucose monitoring daily 10/14/2013 None diabetes mellitus Pertinent Findings Denies nausea 10/14/2013 None diabetes mellitus Pertinent Findings Denies dizziness 10/14/2013 None hypertension Blood Pressure Values not checking blood pressure at home 10/14/2013 None hypertension Pertinent Findings Denies decreased energy 10/14/2013 None hypertension Pertinent Findings Denies dizziness 10/14/2013 None hypertension Pertinent Findings Denies dyspnea 10/14/2013 None hypertension Pertinent Findings Denies edema 10/14/2013 None diabetes mellitus Onset of Symptom onset as an adult 10/14/2013 None diabetes mellitus Quality chronic 10/14/2013 None diabetes mellitus Severity moderate 10/14/2013 None hypertension Quality chronic 10/14/2013 None hypertension Blood Pressure Values patient checking blood pressure at home - did not bring in readings 10/14/2013 None diabetes mellitus Quality insulin dependent 07/01/2013 None diabetes mellitus Test results Pt checking blood glucose at home, see scanned readings 07/01/2013 None hypertension Quality chronic 07/01/2013 None hypertension Onset and Resolution ongoing 07/01/2013 None hypertension Blood Pressure Values pt checking blood pressure - see scanned document 07/01/2013 None foot pain Location on the left 07/01/2013 None foot pain Quality tenderness 07/01/2013 None diabetes mellitus Onset of Symptom onset as an adult 07/01/2013 None diabetes mellitus Quality chronic 07/01/2013 None diabetes mellitus Severity moderate 07/01/2013 None hypertension Blood Pressure Values patient checking blood pressure at home - did not bring in readings 07/01/2013 None foot pain Location in the forefoot region 07/01/2013 None foot pain Severity mild 07/01/2013 None foot pain Significant Medical Conditions obesity 07/01/2013 None hypertension Triggers no known associated factors 07/01/2013 None hypertension Alleviating Factors medication 07/01/2013 None hypertension Exacerbating Factors stress 07/01/2013 None diabetes mellitus Quality chronic 03/04/2013 None hypertension Quality chronic 03/04/2013 None hypertension Blood Pressure Values patient checking blood pressure at home - did not bring in readings 03/04/2013 None diabetes mellitus Test results Pt checking blood glucose readings, did not bring results to clinic 03/04/2013 None diabetes mellitus Severity moderate 03/04/2013 None diabetes mellitus Onset of Symptom onset as an adult 03/04/2013 None diabetes mellitus Blood glucose levels greater than 120 03/04/2013 None diabetes mellitus Glucose monitoring twice daily 03/04/2013 None diabetes mellitus Exercise no exercise 03/04/2013 None diabetes mellitus Quality insulin dependent 02/04/2013 None diabetes mellitus Weight Control current weight 02/04/2013 gained 8 pounds since last appt. diabetes mellitus Pertinent Findings Denies tingling 02/04/2013 None diabetes mellitus Pertinent Findings Denies numbness 02/04/2013 None diabetes mellitus Pertinent Findings Denies dizziness 02/04/2013 None diabetes mellitus Pertinent Findings Denies dyspnea 02/04/2013 None diabetes mellitus Pertinent Findings Denies lethargy 02/04/2013 None diabetes mellitus Pertinent Findings Denies mental status change 02/04/2013 None diabetes mellitus Test results Pt checking blood glucose at home, see scanned readings 02/04/2013 None diabetes mellitus Glucose monitoring daily 02/04/2013 None diabetes mellitus Exacerbating Factors diet 02/04/2013 None diabetes mellitus Exercise no exercise 02/04/2013 None diabetes mellitus Onset of Symptom onset as an adult 02/04/2013 None diabetes mellitus Quality chronic 02/04/2013 None diabetes mellitus Severity moderate 02/04/2013 None diabetes mellitus Nutrition regular diet 02/04/2013 None diabetes mellitus Test results Pt checking blood glucose at home, see scanned readings 12/03/2012 None diabetes mellitus Quality insulin dependent 12/03/2012 None lower leg pain Location on the right 12/03/2012 None lower leg pain Location on the left 12/03/2012 None lower leg pain Quality cramping 12/03/2012 None lower leg pain Quality sharp pain 12/03/2012 None lower leg pain Quality progressive 12/03/2012 None diabetes mellitus Onset of Symptom onset as an adult 12/03/2012 None diabetes mellitus Severity mild 12/03/2012 None diabetes mellitus Blood glucose levels greater than 120 12/03/2012 None diabetes mellitus Glucose monitoring daily 12/03/2012 None tinnitus Location in both ears 10/14/2012 None tinnitus Quality acute 10/14/2012 None tinnitus Onset of Symptom 1 weeks ago 10/14/2012 None tinnitus Pertinent Findings Denies hearing change 10/14/2012 None tinnitus Pertinent Findings Denies cough 10/14/2012 None tinnitus Pertinent Findings Denies lymphadenopathy 10/14/2012 None tinnitus Limitation on Activities does not limit activities 10/14/2012 None tinnitus Frequency of Episodes unchanged 10/14/2012 None tinnitus Triggers activity 10/14/2012 None tinnitus Alleviating Factors rest 10/14/2012 doesn't seem to bother him at night when he goes to bed. hip pain Location on the right 09/29/2012 pain is worst when he is laying down at night. feels okay when he is up and around hip pain Timing of Episodes at night 09/29/2012 None hip pain Timing of Episodes at rest 09/29/2012 None hip pain Severity moderate 09/29/2012 None hip pain Significant Medical Conditions advancing age 0109/29/2012 None hip pain Significant Medical Conditions obesity 09/29/2012 None hip pain Location on the right 09/25/2012 None hip pain Onset of Symptom 1 weeks ago 09/25/2012 states can't lay on his right side without pain hip pain Pertinent Findings limping 09/25/2012 None hip pain Pertinent Findings pain at rest 09/25/2012 None hip pain Pertinent Findings Denies numbness 09/25/2012 None diabetes mellitus Quality chronic 09/25/2012 None diabetes mellitus Quality insulin dependent 09/25/2012 None diabetes mellitus Test results Pt checking blood glucose at home, see scanned readings 09/25/2012 None hip pain Timing of Episodes at night 09/25/2012 None hip pain Timing of Episodes at rest 09/25/2012 None diabetes mellitus Blood glucose levels greater than 120 09/25/2012 None diabetes mellitus Alleviating Factors medication 09/25/2012 None diabetes mellitus Exacerbating Factors diet 09/25/2012 None hypertension Quality chronic 08/27/2012 None hypertension Onset and Resolution ongoing 08/27/2012 None diabetes mellitus Quality chronic 08/27/2012 None diabetes mellitus Quality insulin dependent 08/27/2012 None diabetes mellitus Onset of Symptom onset as an adult 08/27/2012 None diabetes mellitus Quality non-insulin dependent 08/27/2012 None diabetes mellitus Severity moderate 08/27/2012 None diabetes mellitus Exacerbating Factors diet 08/27/2012 pt eats mostly fast foods diabetes mellitus Nutrition regular diet 08/27/2012 None diabetes mellitus Pertinent Findings Denies dizziness 08/27/2012 None diabetes mellitus Pertinent Findings Denies increased hunger 08/27/2012 None diabetes mellitus Pertinent Findings lethargy 08/27/2012 None diabetes mellitus Onset of Symptom onset as an adult 06/25/2012 None diabetes mellitus Quality non-insulin dependent 06/25/2012 None diabetes mellitus Quality chronic 06/25/2012 None diabetes mellitus Severity moderate 06/25/2012 None diabetes mellitus Exacerbating Factors diet 06/25/2012 pt eats mostly fast foods diabetes mellitus Nutrition regular diet 06/25/2012 None diabetes mellitus Pertinent Findings Denies dizziness 06/25/2012 None diabetes mellitus Pertinent Findings Denies increased hunger 06/25/2012 None diabetes mellitus Pertinent Findings lethargy 06/25/2012 None diabetes mellitus Blood glucose levels greater than 120 06/25/2012 None diabetes mellitus Blood glucose levels 100 - 170 06/25/2012 None diabetes mellitus Glucose monitoring twice daily 06/25/2012 None diabetes mellitus Onset of Symptom onset as an adult 06/03/2012 None diabetes mellitus Quality non-insulin dependent 06/03/2012 None diabetes mellitus Quality chronic 06/03/2012 None diabetes mellitus Severity moderate 06/03/2012 None diabetes mellitus Exacerbating Factors diet 06/03/2012 pt eats mostly fast foods diabetes mellitus Nutrition regular diet 06/03/2012 None diabetes mellitus Pertinent Findings Denies dizziness 06/03/2012 None diabetes mellitus Pertinent Findings Denies increased hunger 06/03/2012 None diabetes mellitus Pertinent Findings lethargy 06/03/2012 None diabetes mellitus Severity moderate 04/24/2012 None diabetes mellitus Alleviating Factors medication 04/24/2012 states victoza makes him nauseated diabetes mellitus Exacerbating Factors diet 04/24/2012 pt eats mostly fast foods diabetes mellitus Nutrition regular diet 04/24/2012 None diabetes mellitus Pertinent Findings Denies dizziness 04/24/2012 None diabetes mellitus Pertinent Findings Denies increased hunger 04/24/2012 None diabetes mellitus Pertinent Findings lethargy 04/24/2012 None diabetes mellitus Quality non-insulin dependent 04/24/2012 None diabetes mellitus Quality chronic 04/24/2012 None back pain Quality intermittent 04/24/2012 None back pain Limitation on Activities does not limit activities 04/24/2012 None back pain Frequency of Episodes decreasing 04/24/2012 None back pain Triggers bending 04/24/2012 None back pain Triggers lifting 04/24/2012 None back pain Triggers twisting 04/24/2012 None back pain Triggers activity 04/24/2012 None back pain Location lumbar-sacral spine 04/24/2012 None back pain Onset and Resolution resolved 04/24/2012 improved diabetes mellitus Test results Pt checking blood glucose readings, did not bring results to clinic 04/24/2012 None diabetes mellitus Onset of Symptom onset as an adult 04/24/2012 None diabetes mellitus Severity mild 04/24/2012 None back pain Location lumbar-sacral spine 04/09/2012 None back pain Onset and Resolution sudden in onset 04/09/2012 None back pain Quality acute 04/09/2012 None back pain Quality sharp 04/09/2012 on left side into leg back pain Pertinent Findings extremity weakness 04/09/2012 left back pain Pertinent Findings sleep disturbance 04/09/2012 None back pain Onset of Symptom 6 days ago 04/09/2012 None back pain Triggers bending 04/09/2012 None back pain Triggers twisting 04/09/2012 None back pain Triggers exertion 04/09/2012 None back pain Alleviating Factors rest 04/09/2012 None back pain Exacerbating Factors activity 04/09/2012 None back pain Severity moderate 04/09/2012 None diabetes mellitus Test results Pt checking blood glucose readings, did not bring results to clinic 03/04/2012 None skin lesion Onset of Symptom 1 weeks ago 03/04/2012 None skin lesion Location on the right lower eyelid 03/04/2012 None skin lesion Alleviating Factors no alleviating factors 03/04/2012 None diabetes mellitus Alleviating Factors medication 03/04/2012 states victoza makes him nauseated diabetes mellitus Onset of Symptom onset as an adult 03/04/2012 None diabetes mellitus Severity moderate 03/04/2012 None diabetes mellitus Exacerbating Factors diet 03/04/2012 pt eats mostly fast foods diabetes mellitus Pertinent Findings Denies dizziness 03/04/2012 None diabetes mellitus Pertinent Findings Denies increased hunger 03/04/2012 None diabetes mellitus Pertinent Findings lethargy 03/04/2012 None diabetes mellitus Quality non-insulin dependent 03/04/2012 None diabetes mellitus Quality chronic 03/04/2012 None diabetes mellitus Severity mild 03/04/2012 None diabetes mellitus Blood glucose levels greater than 120 03/04/2012 None diabetes mellitus Exercise no exercise 03/04/2012 None diabetes mellitus Nutrition regular diet 03/04/2012 None skin lesion Quality enlarging 03/04/2012 None skin lesion Quality firm 03/04/2012 None skin lesion Quality raised 03/04/2012 None skin lesion Quality tender 03/04/2012 None skin lesion Onset and Resolution gradual in onset 03/04/2012 None skin lesion Severity moderate 03/04/2012 None skin lesion Triggers no known associated factors 03/04/2012 None diabetes mellitus Onset of Symptom onset as an adult 12/03/2011 None diabetes mellitus Severity moderate 12/03/2011 None diabetes mellitus Blood glucose levels greater than 120 12/03/2011 None diabetes mellitus Glucose monitoring daily 12/03/2011 None diabetes mellitus Alleviating Factors medication 12/03/2011 None diabetes mellitus Exacerbating Factors diet 12/03/2011 pt eats mostly fast foods diabetes mellitus Exercise no exercise 12/03/2011 None diabetes mellitus Pertinent Findings Denies dizziness 12/03/2011 None diabetes mellitus Pertinent Findings Denies increased hunger 12/03/2011 None diabetes mellitus Pertinent Findings lethargy 12/03/2011 None diabetes mellitus Onset of Symptom onset as an adult 10/31/2011 None diabetes mellitus Test results Pt checking blood glucose readings, did not bring results to clinic 10/31/2011 None diabetes mellitus Severity moderate 10/31/2011 None diabetes mellitus Test results HgbA1c level 8.2 10/31/2011 None diabetes mellitus Glucose monitoring daily 08/29/2011 None diabetes mellitus Blood glucose levels 130- 206 08/29/2011 None diabetes mellitus Quality non-insulin dependent 08/29/2011 None diabetes mellitus Severity moderate 08/29/2011 None diabetes mellitus Exacerbating Factors diet 08/29/2011 None diabetes mellitus Alleviating Factors medication 08/29/2011 None diabetes mellitus Exercise minimal exercise 08/29/2011 has only recently started exercising, his upper back hurts when he is exercising hypertension Quality chronic 08/29/2011 None hypertension Onset and Resolution ongoing 08/29/2011 None hypertension Onset of Symptom during adulthood 08/29/2011 None hypertension Alleviating Factors medication 08/29/2011 None hypertension Exacerbating Factors stress 08/29/2011 None hypertension Pertinent Findings Denies dizziness 08/29/2011 None diabetes mellitus Quality chronic 08/29/2011 None diabetes mellitus Severity mild 08/29/2011 None diabetes mellitus Nutrition ADA diet 08/29/2011 None diabetes mellitus Pertinent Findings Denies dizziness 08/29/2011 None diabetes mellitus Pertinent Findings Denies increased hunger 08/29/2011 None diabetes mellitus Pertinent Findings Denies lethargy 08/29/2011 None actinic keratosis Quality chronic 07/24/2011 None actinic keratosis Quality hard 07/24/2011 None actinic keratosis Quality worsening 07/24/2011 None actinic keratosis Onset and Resolution ongoing 07/24/2011 None actinic keratosis Limitation on Activities moderately limits activities 07/24/2011 more pain with activity actinic keratosis Triggers touch or manipulation 07/24/2011 None actinic keratosis Pertinent Findings pain 07/24/2011 None actinic keratosis Pertinent Findings tenderness 07/24/2011 None new lesion Severity mild 07/18/2011 None new lesion Prior Treatments previously untreated 07/18/2011 None hypertension Quality chronic 07/18/2011 None hypertension Onset and Resolution ongoing 07/18/2011 None diabetes mellitus Quality chronic 07/18/2011 None new lesion Location-Extremities on the left hand 07/18/2011 ringer finger hypertension Onset of Symptom during adulthood 07/18/2011 None hypertension Pertinent Findings Denies dizziness 07/18/2011 None hypertension Exacerbating Factors stress 07/18/2011 None hypertension Alleviating Factors medication 07/18/2011 None diabetes mellitus Severity mild 07/18/2011 None diabetes mellitus Blood glucose levels greater than 120 07/18/2011 None diabetes mellitus Nutrition ADA diet 07/18/2011 None diabetes mellitus Exercise minimal exercise 07/18/2011 None diabetes mellitus Pertinent Findings Denies dizziness 07/18/2011 None diabetes mellitus Pertinent Findings Denies increased hunger 07/18/2011 None diabetes mellitus Pertinent Findings Denies lethargy 07/18/2011 None Advance Directives No Advance Directive data Encounters Encounter Performer Location Codes Date ([id number]) 36018 EST. PATIENT, LEVEL IV Diagnosis: Essential (primary) hypertension[ICD10: I10] Diagnosis: Type 2 diabetes mellitus without complications[ICD10: E11.9] Diagnosis: Morbid (severe) obesity due to excess calories[ICD10: E66.01] [facility] CPT-4: 93319 01/08/2019 ([id number]) 24070 EST. PATIENT, LEVEL IV Diagnosis: Essential (primary) hypertension[ICD10: I10] Diagnosis: Type 2 diabetes mellitus without complications[ICD10: E11.9] Diagnosis: Mixed hyperlipidemia[ICD10: E78.2] SHAILA Macedo MD CPT- 4: 87332 10/09/2018 ([id number]) 94351 EST. PATIENT, LEVEL IV Diagnosis: Type 2 diabetes mellitus with hyperglycemia[ICD10: E11.65] Diagnosis: Essential (primary) hypertension[ICD10: I10] Diagnosis: Low back pain[ICD10: M54.5] [facility] CPT-4: 32223 07/07/2018 ([id number]) 11744 EST. 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 PATIENT, LEVEL IV Diagnosis: Type 2 diabetes mellitus with hyperglycemia[ICD10: E11.65] Diagnosis: Essential (primary) hypertension[ICD10: I10] Diagnosis: Arthralgia of bilateral temporomandibular joint[ICD10: M26.623] [facility] CPT-4: 00517 11/21/2017 ([id number]) 68112 EST. PATIENT, LEVEL IV Diagnosis: Type 2 diabetes mellitus without complications[ICD10: E11.9] Diagnosis: Essential (primary) hypertension[ICD10: I10] Diagnosis: Mixed hyperlipidemia[ICD10: E78.2] [facility]rell MD [facility] CPT- 4: 19275 07/29/2017 ([id number]) 07815 EST. PATIENT, LEVEL III Diagnosis: Lumbago with sciatica, right side[ICD10: M54.41] Sunitha Harrell MD [facility] CPT-4: 10297 06/04/2017 ([id number]) 46656 EST. 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 PATIENT, LEVEL IV Diagnosis: Essential (primary) hypertension[ICD10: I10] Diagnosis: Type 2 diabetes mellitus without complications[ICD10: E11.9] [facility] Victoria Harrell MD [facility] CPT-4: 11062 12/05/2016 ([id number]) 95447 EST. PATIENT, LEVEL IV Diagnosis: Essential (primary) hypertension[ICD10: I10] Diagnosis: Type 2 diabetes mellitus with hyperglycemia[ICD10: E11.65] Diagnosis: Morbid (severe) obesity due to excess calories[ICD10: E66.01] Diagnosis: Essential tremor[ICD10: G25.0] Diagnosis: Pain in right hip[ICD10: M25.551] [facility] Harrell MD [facility] CPT- 4: 26106 08/30/2016 ([id number]) 45125 EST. PATIENT, LEVEL III Diagnosis: Pain in left forearm[ICD10: M79.632] Diagnosis: Dysuria[ICD10: R30.0] Sunitha Harrell MD [facility] CPT-4: 13473 07/13/2016 ([id number]) 73519 EST. PATIENT, LEVEL III Diagnosis: Type 2 diabetes mellitus with hyperglycemia[ICD10: E11.65] Diagnosis: Essential tremor[ICD10: G25.0] Diagnosis: Encounter for immunization[ICD10: Z23] Diagnosis: Essential (primary) hypertension[ICD10: I10] Maria Victoria Harrell MD, [facility] CPT-4: 93079 05/24/2016 ([id number]) 68462 EST. PATIENT, LEVEL IV Diagnosis: Type 2 diabetes mellitus with hyperglycemia[ICD10: E11.65] Diagnosis: Essential (primary) hypertension[ICD10: I10] Diagnosis: Dorsalgia, unspecified[ICD10: M54.9] [facility] Victoria Harrell MD [facility] CPT- 4: 52121 01/24/2016 ([id number]) 11033 EST. PATIENT, LEVEL IV Diagnosis: Type 2 diabetes mellitus with hyperglycemia[ICD10: E11.65] Diagnosis: Essential (primary) hypertension[ICD10: I10] Diagnosis: Dorsalgia, unspecified[ICD10: M54.9] Maria Victoria Harrell MD [facility] CPT- 4: 92004 10/27/2015 ([id number]) 79911 EST. PATIENT, LEVEL III Diagnosis: Type 2 diabetes mellitus with hyperglycemia[ICD10: E11.65] [facility] Victoria Harrell MD [facility] CPT-4: 37506 09/21/2015 ([id number]) 61666 EST. PATIENT, LEVEL IV Diagnosis: Type 2 diabetes mellitus with hyperglycemia[ICD10: E11.65] Diagnosis: Essential (primary) hypertension[ICD10: I10] [facility] Victoria Harrell MD [facility] CPT-4: 96632 08/17/2015 ([id number]) 58655 EST. PATIENT, LEVEL IV Diagnosis: VACCIN FOR INFLUENZA[ICD10: Z23] Diagnosis: Type 2 diabetes mellitus with hyperglycemia[ICD10: E11.65] Diagnosis: Morbid (severe) obesity due to excess calories[ICD10: E66.01] Diagnosis: Dorsalgia, unspecified[ICD10: M54.9] Maria Victoria Harrell MD [facility] CPT- 4: 54122 07/20/2015 ([id number]) 62897 EST. PATIENT, LEVEL IV Diagnosis: Diabetes mellitus type 2, uncontrolled[ICD9: 250.02] Diagnosis: ESSENTIAL HYPERTENSION[ICD9: 401.9] Diagnosis: MORBID OBESITY[ICD9: 278.01] Diagnosis: Peripheral neuropathic pain[ICD9: 356.9] Diagnosis: Diabetic neuropathy[ICD9: 250.60] Maria Victoria Harrell MD, [facility] CPT- 4: 51686 04/20/2015 ([id number]) Miscellaneous no charge Diagnosis: Cerumen impaction[ICD9: 380.4] [facility] Victoria Harrell MD [facility] CPT-4: 33556 02/28/2015 ([id number]) 26443 EST. PATIENT, LEVEL IV Diagnosis: Diabetes mellitus type 2, uncontrolled[ICD9: 250.02] Diagnosis: ESSENTIAL HYPERTENSION[ICD9: 401.9] [facility] Victoria Harrell MD [facility] CPT- 4: 23391 02/14/2015 ([id number]) 20788 EST. PATIENT, LEVEL III Diagnosis: Diabetes mellitus type 2, uncontrolled[ICD9: 250.02] [facility] Victoria Harrell MD [facility] CPT-4: 25216 11/11/2014 ([id number]) 11064 EST. PATIENT, LEVEL IV Diagnosis: ESSENTIAL HYPERTENSION[ICD9: 401.9] Diagnosis: DIABETES TYPE II[ICD9: 250.00] Diagnosis: Esophageal reflux[ICD9: 530.81] Diagnosis: DYSPHAGIA NEC[ICD9: 787.29] Maria Victoria Harrell MD [facility] CPT-4: 61081 10/04/2014 ([id number]) 70005 EST. PATIENT, LEVEL IV Diagnosis: DIABETES TYPE II[ICD9: 250.00] Diagnosis: ESSENTIAL HYPERTENSION[ICD9: 401.9] Diagnosis: BPH (benign prostatic hyperplasia)[ICD9: 600.00] [facility] Victoria Harrell MD [facility] CPT-4: 60986 08/02/2014 ([id number]) 46230 EST. PATIENT, LEVEL III Diagnosis: Enlarged prostate[ICD9: 600.00] Maria Victoria Harrell MD [facility] CPT-4: 31646 06/15/2014 ([id number]) 75859 EST. PATIENT, LEVEL III Diagnosis: Right hip pain[ICD9: 719.45] Diagnosis: BACKACHE[ICD9: 724.5] Diagnosis: Sacroiliitis[ICD9: 720.2] Sunitha Harrell MD, [facility] CPT-4: 73599 05/04/2014 ([id number]) 40873 EST. PATIENT, LEVEL IV Diagnosis: DM W/O COMPLICATION TYPE II, UNCONTROLLED[ICD9: 250.02] Diagnosis: ESSENTIAL HYPERTENSION[ICD9: 401.9] Maria Victoria Harrell MD, [facility] CPT- 4: 50892 04/19/2014 ([id number]) 09910 EST. PATIENT, LEVEL IV Diagnosis: Mild cognitive impairment[ICD9: 331.83] Diagnosis: Nightmares[ICD9: 307.47] Diagnosis: Sleep apnea[ICD9: 780.57] Maria Victoria Harrell MD [facility] CPT-4: 95012 02/08/2014 ([id number]) 82808 EST. PATIENT, LEVEL III Diagnosis: DM W/O COMPLICATION TYPE II, UNCONTROLLED[ICD9: 250.02] Maria Victoria Harrell MD, [facility] CPT-4: 18971 01/13/2014 ([id number]) 58937 EST. 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 PATIENT, LEVEL IV Diagnosis: DIABETES TYPE II[SNOMED: 370741677] Diagnosis: ESSENTIAL HYPERTENSION[SNOMED: 35521021] Diagnosis: Flat feet[ICD9: 734] Maria Victoria Harrell MD [facility] CPT-4: 81022 07/01/2013 ([id number]) Miscellaneous no charge Diagnosis: DM W/O COMPLICATION TYPE II, UNCONTROLLED[SNOMED: 12901637] Diagnosis: MORBID OBESITY[ICD9: 278.01] Maria Victoria Harrell MD [facility] CPT-4: 73891 05/13/2013 ([id number]) Miscellaneous no charge Diagnosis: MORBID OBESITY[ICD9: 278.01] Maria Victoria Harrell MD [facility] CPT-4: 02078 04/15/2013 ([id number]) 35289 EST. PATIENT, LEVEL III Diagnosis: DM W/O COMPLICATION TYPE II, UNCONTROLLED[SNOMED: 58965653] Diagnosis: Dietary restriction[ICD9: V65.3] Diagnosis: Morbid obesity with BMI of 40.0-44.9, adult[ICD9: 278.01] Maria Victoria Harrell MD, [facility] CPT-4: 78320 03/04/2013 ([id number]) 64907 EST. PATIENT, LEVEL IV Diagnosis: DM W/O COMPLICATION TYPE II, UNCONTROLLED[SNOMED: 24171289] Diagnosis: ENTHESOPATHY OF HIP[ICD9: 726.5] Diagnosis: BACKACHE[ICD9: 724.5] Maria Victoria Harrell MD, [facility] CPT-4: 68104 02/04/2013 ([id number]) 86475 EST. PATIENT, LEVEL III Diagnosis: DM W/O COMPLICATION TYPE II, UNCONTROLLED[SNOMED: 61944748] Maria Victoria Harrell MD [facility] CPT-4: 19210 12/03/2012 ([id number]) 49636 EST. PATIENT, LEVEL III Diagnosis: Tinnitus[ICD9: 388.30] Diagnosis: Cerumen impaction[ICD9: 380.4] Sunitha Harrell MD, [facility] CPT-4: 78323 10/14/2012 ([id number]) 46133 EST. PATIENT, LEVEL III Diagnosis: ENTHESOPATHY OF HIP[ICD9: 726.5] Diagnosis: JOINT PAIN-PELVIS[ICD9: 719.45] Maria Victoria Harrell MD, [facility] CPT-4: 25270 09/29/2012 46578 EST. PATIENT, LEVEL II Diagnosis: Right hip pain[ICD9: 719.45] Diagnosis: Bursitis of hip, right[ICD9: 726.5] Diagnosis: DM W/O COMPLICATION TYPE II, UNCONTROLLED[SNOMED: 39418053] Sunitha Harrell MD, [facility] CPT-4: 25614 09/25/2012 ([id number]) 11581 EST. PATIENT, LEVEL III Diagnosis: DM W/O COMPLICATION TYPE II, UNCONTROLLED[SNOMED: 80726890] Maria Victoria Harrell MD, [facility] CPT-4: 67446 08/27/2012 ([id number]) 04894 EST. PATIENT, LEVEL III Diagnosis: Diabetes mellitus out of control[SNOMED: 33045161] Maria Victoria Harrell MD, [facility] CPT-4: 52629 06/25/2012 ([id number]) 23182 EST. PATIENT, LEVEL III Diagnosis: DM W/O COMPLICATION TYPE II, UNCONTROLLED[SNOMED: 55704436] Diagnosis: ESSENTIAL HYPERTENSION[SNOMED: 01144771] Maria Victoria Harrell MD, [facility] CPT-4: 77396 06/03/2012 ([id number]) 32985 EST. PATIENT, LEVEL III Diagnosis: DM W/O COMPLICATION TYPE II, UNCONTROLLED[SNOMED: 33756733] Diagnosis: Back pain[ICD9: 724.5] Maria Victoria Harrell MD, [facility] CPT-4: 39304 04/24/2012 ([id number]) 64208 EST. PATIENT, LEVEL IV Diagnosis: BACKACHE[ICD9: 724.5] Diagnosis: MORBID OBESITY[ICD9: 278.01] Diagnosis: Depression[ICD9: 311] Maria Victoria Harrell MD [facility] CPT-4: 54447 04/09/2012 ([id number]) 01861 EST. PATIENT, LEVEL IV Diagnosis: Diabetes mellitus type 2, uncontrolled[SNOMED: 84200926] Diagnosis: ESSENTIAL HYPERTENSION[SNOMED: 09390233] Maria Victoria Harrell MD [facility] CPT-4: 99766 03/04/2012 ([id number]) 78704 EST. PATIENT, LEVEL IV Diagnosis: DM W/O COMPLICATION TYPE II, UNCONTROLLED[SNOMED: 53518210] Diagnosis: MORBID OBESITY[ICD9: 278.01] Maria Victoria Harrell MD [facility] CPT-4: 52652 12/03/2011 ([id number]) 66630 EST. PATIENT, LEVEL IV Diagnosis: DM W/O COMPLICATION TYPE II, UNCONTROLLED[SNOMED: 67724073] Diagnosis: ESSENTIAL HYPERTENSION[SNOMED: 13407778] Diagnosis: Hyperlipidemia[ICD9: 272.4] Diagnosis: Morbid obesity[ICD9: 278.01] Maria Victoria Harrell MD [facility] CPT-4: 45730 10/31/2011 ([id number]) 65181 EST. PATIENT, LEVEL IV Diagnosis: ESSENTIAL HYPERTENSION[SNOMED: 13637575] Diagnosis: DM W/O COMPLICATION TYPE II, UNCONTROLLED[SNOMED: 45681935] Diagnosis: MORBID OBESITY[ICD9: 278.01] [facility] CPT-4: 99207 08/29/2011 17484 EST. PATIENT, LEVEL IV Diagnosis: Diabetes mellitus type 2, uncontrolled[SNOMED: 57201131] Diagnosis: ESSENTIAL HYPERTENSION[SNOMED: 60669609] Diagnosis: Actinic keratosis[ICD9: 702.0] [facility] CPT-4: 71170 07/18/2011 Plan of Care Planned Activity Notes Codes Status Date Visit Plan: Diabetes mellitus - has improved so drastically with Bert's weight loss that he has now been able to taper off of the insulin - Continue with metformin at current dose. Hypertension - well controlled - c ontinue with current medications, continue with no added salt diet. Pt has been encouraged to exercise daily. The pt has been advised to call the office if there are any acute concerns about change in blood pressure readings at home. Hyperlipidemia - pt has been counseled about appropriate diet, exercise, and need for low fat food choices. I have discussed the need for the patient to take medications as prescribed. If the patient has negative side effects from the medication, they are to CALL the office and not abruptly discontinue the medication without discussion with a practitioner in the office. We will check labs in 3-6 months for follow up on the patient's chronic medical problem and to assure normal liver response to medications. Morbid obesity - has improved with his strict diet - continue with dietary restrictions. 01/08/2019 Appointment: [id number] [facility] 01/08/2019 Patient Education: Patient Medication Summary Completed 01/08/2019 Patient Education: Diabetes Completed 01/08/2019 Patient Education: Obesity Completed 01/08/2019 Patient Education: Patient Medication Summary Completed 01/07/2019 Appointment: Maria Victoria Harrell [facility]el[phone] [facility] (15 min) Moderate 11/10/2018 Visit Plan: Diabetes Mellitus - controlled - per recent FSBS reports. - pt advised as follows: decrease toujeo to 25 units next week - as long as the blood glucose is averaging below 150, then decrease by 5 units w eekly until the blood glucose is either at an average of 150 - then stop the taper, or if the average blood glucose continues to be below 150, you can continue to taper down until you are off of the toujeo. Hypertension - well controlled - continue with current medications, continue with no added salt diet. Pt has been encouraged to exercise daily. The pt has been advised to call the office if there are any acute concerns about change in blood pressure readings at home. Hyperlipidemia - pt has been counseled about appropriate diet, exercise, and need for low fat food choices. I have discussed the need for the patient to take medications as prescribed. If the patient has negative side effects from the medication, they are to CALL the office and not abruptly discontinue the medication without discussion with a practitioner in the office. We will check labs in 3-6 months for follow up on the patient's chronic medical problem and to assure normal liver response to medications. 10/09/2018 Appointment: Maria Victoria Harrell [facility]Ptel[facility] [phone] [facility] [place] (30 min) Complex 10/09/2018 Patient Education: Patient Medication Summary Completed 10/09/2018 Patient Education: Diabetes Completed 10/09/2018 Patient Education: Cholesterol Management Completed 10/09/2018 Care Plan: Referral Order SNOMED-CT : [id number] Pending 10/09/2018 Patient Education: Patient Medication Summary Completed 10/06/2018 Visit Plan: Hypertension - well controlled - continue with current medications, continue with no added salt diet. Pt has been encouraged to exercise daily. The pt has been advised to call the office if there are any acute concerns about change in blood pressure readings at home. Diabetes Mellitus - Uncontrolled - but improved per his recent FSBS reports. I have recommended for the patient to have follow up labs prior to the next office visit. The patient has been instructed to continue with current medications as previously directed, continue with regular FSBS monitoring to assure continued control of diabetes. Pt to call for any acute concerns, complaints, or if the blood glucose readings are starting to become less controlled. I have recommended for the patient to follow more strictly to the diabetic diet as discussed in clinic to allow for greater blood glucose control. Carotid stenosis - pt to have repeat Carotid US and if he needs surgery - he would like to consider Dr. Mai 07/07/2018 Appointment: Maria Victoria Harrell WPtel[facility] [phone] [facility] [place] (15 min) Moderate 07/07/2018 Patient Education: Patient Medication Summary Completed 07/07/2018 Patient Education: Diabetes Completed 07/07/2018 Patient Education: Back Pain Completed 07/07/2018 Patient Education: Patient Medication Summary Completed 07/03/2018 Patient Education: Cholesterol Management Completed 07/03/2018 Visit Plan: Hypertension - well controlled - continue with current medications, continue with no added salt diet. Pt has been encouraged to exercise daily. The pt has been advised to call the office if there are any acute concerns about change in blood pressure readings at home. Diabetes Mellitus - controlled - per recent FSBS reports. I have recommended for the patient to have follow up labs prior to the next office visit. The patient has been instructed to continue with current medications as previously directed, continue with regular FSBS monitoring to assure continued control of diabetes. Pt to call for any acute concerns, complaints, or if the blood glucose readings are starting to become less controlled. Essential tremor - supportive care - discussed dx with the patient - he is not a candidate for treatment - he does not have Parkinson's disease. 05/21/2018 Visit Plan: Hypertension - well controlled - continue with current medications, continue with no added salt diet. Pt has been encouraged to exercise daily. The pt has been advised to call the office if there are any acute concerns about change in blood pressure readings at home. Diabetes Mellitus - controlled - per recent FSBS reports. I have recommended for the patient to have follow up labs prior to the next office visit. The patient has been instructed to continue with current medications as previously directed, continue with regular FSBS monitoring to assure continued control of diabetes. Pt to call for any acute concerns, complaints, or if the blood glucose readings are starting to become less controlled. Essential tremor - supportive care - discussed dx with the patient - he is not a candidate for treatment - he does not have Parkinson's disease. 05/21/2018 Visit Plan: Hypertension - well controlled - continue with current medications, continue with no added salt diet. Pt has been encouraged to exercise daily. The pt has been advised to call the office if there are any acute concerns about change in blood pressure readings at home. Diabetes Mellitus - controlled - per recent FSBS reports. I have recommended for the patient to have follow up labs prior to the next office visit. The patient has been instructed to continue with current medications as previously directed, continue with regular FSBS monitoring to assure continued control of diabetes. Pt to call for any acute concerns, complaints, or if the blood glucose readings are starting to become less controlled. Essential tremor - supportive care - discussed dx with the patient - he is not a candidate for treatment - he does not have Parkinson's disease. 05/21/2018 Visit Plan: Hypertension - well controlled - continue with current medications, continue with no added salt diet. Pt has been encouraged to exercise daily. The pt has been advised to call the office if there are any acute concerns about change in blood pressure readings at home. Diabetes Mellitus - controlled - per recent FSBS reports. I have recommended for the patient to have follow up labs prior to the next office visit. The patient has been instructed to continue with current medications as previously directed, continue with regular FSBS monitoring to assure continued control of diabetes. Pt to call for any acute concerns, complaints, or if the blood glucose readings are starting to become less controlled. Essential tremor - supportive care - discussed dx with the patient - he is not a candidate for treatment - he does not have Parkinson's disease. 05/21/2018 Visit Plan: Hypertension - well controlled - continue with current medications, continue with no added salt diet. Pt has been encouraged to exercise daily. The pt has been advised to call the office if there are any acute concerns about change in blood pressure readings at home. Diabetes Mellitus - controlled - per recent FSBS reports. I have recommended for the patient to have follow up labs prior to the next office visit. The patient has been instructed to continue with current medications as previously directed, continue with regular FSBS monitoring to assure continued control of diabetes. Pt to call for any acute concerns, complaints, or if the blood glucose readings are starting to become less controlled. Essential tremor - supportive care - discussed dx with the patient - he is not a candidate for treatment - he does not have Parkinson's disease. 05/21/2018 Visit Plan: Hypertension - well controlled - continue with current medications, continue with no added salt diet. Pt has been encouraged to exercise daily. The pt has been advised to call the office if there are any acute concerns about change in blood pressure readings at home. Diabetes Mellitus - controlled - per recent FSBS reports. I have recommended for the patient to have follow up labs prior to the next office visit. The patient has been instructed to continue with current medications as previously directed, continue with regular FSBS monitoring to assure continued control of diabetes. Pt to call for any acute concerns, complaints, or if the blood glucose readings are starting to become less controlled. Essential tremor - supportive care - discussed dx with the patient - he is not a candidate for treatment - he does not have Parkinson's disease. 05/21/2018 Visit Plan: Hypertension - well controlled - continue with current medications, continue with no added salt diet. Pt has been encouraged to exercise daily. The pt has been advised to call the office if there are any acute concerns about change in blood pressure readings at home. Diabetes Mellitus - controlled - per recent FSBS reports. I have recommended for the patient to have follow up labs prior to the next office visit. The patient has been instructed to continue with current medications as previously directed, continue with regular FSBS monitoring to assure continued control of diabetes. Pt to call for any acute concerns, complaints, or if the blood glucose readings are starting to become less controlled. Essential tremor - supportive care - discussed dx with the patient - he is not a candidate for treatment - he does not have Parkinson's disease. 05/21/2018 Visit Plan: Hypertension - well controlled - continue with current medications, continue with no added salt diet. Pt has been encouraged to exercise daily. The pt has been advised to call the office if there are any acute concerns about change in blood pressure readings at home. Diabetes Mellitus - controlled - per recent FSBS reports. I have recommended for the patient to have follow up labs prior to the next office visit. The patient has been instructed to continue with current medications as previously directed, continue with regular FSBS monitoring to assure continued control of diabetes. Pt to call for any acute concerns, complaints, or if the blood glucose readings are starting to become less controlled. Essential tremor - supportive care - discussed dx with the patient - he is not a candidate for treatment - he does not have Parkinson's disease. 05/21/2018 Appointment: Maria Victoria Harrell WPtel: [address] [place], [place] [id number] (15 min) Moderate 05/21/2018 Patient Education: Patient Medication Summary Completed 05/21/2018 Visit Plan: Diabetes Mellitus - Uncontrolled - per recent FSBS reports. I have recommended for the patient to have follow up labs prior to the next office visit. The patient has been instructed to continue with current medications as previously directed, continue with regular FSBS monitoring to assure continued control of diabetes. Pt to call for any acute concerns, complaints, or if the blood glucose readings are starting to become less controlled. I have recommended for the patient to follow more strictly to the diabetic diet as discussed in clinic to allow for greater blood glucose control. Diabetic shoes recommended- paperwork filled out - he will need wide, extra depth shoes with inserts to prevent callus and protect feet. Hypertension - well controlled - continue with current medications, continue with no added salt diet. Pt has been encouraged to exercise daily. The pt has been advised to call the office if there are any acute concerns about change in blood pressure readings at home. Obesity - continue with dietary restriction. 03/06/2018 Appointment: Maria Victoria Harrell WPtel: [address] [place], [place] [id number] (15 min) Moderate 03/06/2018 Patient Education: Patient Medication Summary Completed 03/06/2018 Patient Education: Obesity Completed 03/06/2018 Patient Education: Patient Medication Summary Completed 03/03/2018 Care Plan: %Hba1C LOINC : 77361-0 Pending 03/03/2018 Visit Plan: Medicare Exam - today we discussed the patients past history, immunizations, preventative exams/evaluations - colonoscopy, fecal occult blood testing, routine labs for renal function, glucose, cholesterol, osteoporosis evaluations, cardiovascular testing and cancer screenings. We have also discussed mental health and the signs/symptoms of depression. The patient was advised of home safety evaluations and the need to make sure that as the aging process continues, we need to be aware of different ways to make the home a safer place to reside. The patient has also been counseled that exercise is necessary - and of utmost importance as we age to help decrease fall risk and to maintain independece in the home. Today we discussed the need for the patient to create paperwork for Advanced directives as well as for the patient to provide this office with a copy of her DOPA paperwork for health care surrogate. Greater Trochanteric Bursitis - Joint Injection - Pt was given post - injection instructions. The pt has been advised to use anti-inflammatories post injection today, ice to the injected site, call if redness, warmth, or increased pain occurs at the site of injection. pt to do exercises as directed - stretching, anti-inflammatories to be started after 24 hours, and pt to use heat to the affected sites, pt to call if not improving. 12/24/2017 Patient Education: Patient Medication Summary Completed 12/24/2017 Appointment: Sunitha Moran [facility]Ptel[facility] [phone] [id number] [facility] - Annual Wellness Visit 12/19/2017 Visit Plan: Diabetes Mellitus - Uncontrolled - per recent FSBS reports. I have recommended for the patient to have follow up labs prior to the next office visit. The patient has been instructed to continue with current medications as previously directed, continue with regular FSBS monitoring to assure continued control of diabetes. Pt to call for any acute concerns, complaints, or if the blood glucose readings are starting to become less controlled. I have recommended for the patient to follow more strictly to the diabetic diet as discussed in clinic to allow for greater blood glucose control. increase the novolog to 10 units breakfast, 12 units lunch, 10 units supper Hypertension - well controlled - continue with current medications, continue with no added salt diet. Pt has been encouraged to exercise daily. The pt has been advised to call the office if there are any acute concerns about change in blood pressure readings at home. TMJ - recommended pt to talk to dentist about possible appliance for off loading of tension in jaw. RX for naproxen. 11/21/2017 Appointment: Maria Victoria Harrell WPtel: [phone] [facility] (15 min) Moderate 11/21/2017 Patient Education: Patient Medication Summary Completed 11/21/2017 Patient Education: Patient Medication Summary Completed 11/18/2017 Visit Plan: Hypertension - well controlled - continue with current medications, continue with no added salt diet. Pt has been encouraged to exercise daily. The pt has been advised to call the office if there are any acute concerns about change in blood pressure readings at home. Diabetes Mellitus - significantly improved control - per recent FSBS reports. I have recommended for the patient to have follow up labs prior to the next office visit. The patient has been instructed to continue with current medications as previously directed, continue with regular FSBS monitoring to assure continued control of diabetes. Pt to call for any acute concerns, complaints, or if the blood glucose readings are starting to become less controlled. Hyperlipidemia - pt has been counseled about appropriate diet, exercise, and need for low fat food choices. I have discussed the need for the patient to take medications as prescribed. If the patient has negative side effects from the medication, they are to CALL the office and not abruptly discontinue the medication without discussion with a practitioner in the office. We will check labs in 3-6 months for follow up on the patient's chronic medical problem and to assure normal liver response to medications. 07/29/2017 Appointment: Maria Victoria Harrell WPtel: [address] [facility] (15 min) Moderate 07/29/2017 Patient Education: Patient Medication Summary Completed 07/29/2017 Patient Education: Obesity Completed 07/29/2017 Visit Plan: Skin tag removed - pt tolerated procedure well - Wound Instructions - Pt was instructed to keep the wound clean, wash with antibacterial soap, use triple antibiotic ointment, call if redness, pustular drainage, or any other acute concerns. 07/02/2017 Appointment: Zunilda Carrillo [facility]Ptel: [phone] [facility] (30 min) Complex 07/02/2017 Patient Education: Patient Medication Summary Completed 07/02/2017 Appointment: Injection 06/28/2017 Patient Education: Patient Medication Summary Completed 06/28/2017 Visit Plan: Sciatica- exercises discussed with the patient, pt to continue with antiinflammatories. Pt is to call if the symptoms do not improve or if they worsen. Kenalog injection today in the office. 06/04/2017 Appointment: Sunitha Moran [facility]Ptel: [phone] [phone] (30 min) Complex 06/04/2017 Patient Education: Patient Medication Summary Completed 06/04/2017 Patient Education: Obesity Completed 06/04/2017 Visit Plan: Palpitations - recommended a holter monitor x 24 hours since the patient has the cough when he is feeling a fluttering sensation in his chest. Peripheral neuropathy from diabetes mellitus - continue current dose of insulin - pt's hgba1c is elevated, but slowly improving. Pt is not compliant with a diabetic diet. Pt needs special shoes for his feet due to DM - he needs wide width, extra depth shoes with custom molded inserts. 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 Hypertension - well controlled - continue with current medications, continue with no added salt diet. Pt has been encouraged to exercise daily. The pt has been advised to call the office if there are any acute concerns about change in blood pressure readings at home. 04/03/2017 Appointment: Maria Victoria Harrell WPtel: [phone] [facility] (15 min) Moderate 04/03/2017 Patient Education: Patient Medication Summary Completed 04/03/2017 Patient Education: Patient Medication Summary Completed 03/28/2017 Visit Plan: Medicare Exam - today we discussed the patients past history, immunizations, preventative exams/evaluations - colonoscopy, fecal occult blood testing, routine labs for renal function, glucose, cholesterol, osteoporosis evaluations, cardiovascular testing and cancer screenings. We have also discussed mental health and the signs/symptoms of depression. The patient was advised of home safety evaluations and the need to make sure that as the aging process continues, we need to be aware of different ways to make the home a safer place to reside. The patient has also been counseled that exercise is necessary - and of utmost importance as we age to help decrease fall risk and to maintain independence in the home. Today we discussed the need for the patient to create paperwork for Advanced directives as well as for the patient to provide this office with a copy of her DOPA paperwork for health care surrogate. 12/13/2016 Visit Plan: Medicare Exam - today we discussed the patients past history, immunizations, preventative exams/evaluations - colonoscopy, fecal occult blood testing, routine labs for renal function, glucose, cholesterol, osteoporosis evaluations, cardiovascular testing and cancer screenings. We have also discussed mental health and the signs/symptoms of depression. The patient was advised of home safety evaluations and the need to make sure that as the aging process continues, we need to be aware of different ways to make the home a safer place to reside. The patient has also been counseled that exercise is necessary - and of utmost importance as we age to help decrease fall risk and to maintain independence in the home. Today we discussed the need for the patient to create paperwork for Advanced directives as well as for the patient to provide this office with a copy of her DOPA paperwork for health care surrogate. 12/13/2016 Appointment: Sunitha Moran [facility]Ptel: [phone] [phone] [facility] - Annual Wellness Visit 12/13/2016 Patient Education: Patient Medication Summary Completed 12/13/2016 Care Plan: Referral Order SNOMED-CT : [id number] Pending 12/13/2016 Visit Plan: Hypertension - well controlled - continue with current medications, continue with no added salt diet. Pt has been encouraged to exercise daily. The pt has been advised to call the office if there are any acute concerns about change in blood pressure readings at home. Diabetes Mellitus - controlled - per recent FSBS reports. I have recommended for the patient to have follow up labs prior to the next office visit. The patient has been instructed to continue with current medications as previously directed, continue with regular FSBS monitoring to assure continued control of diabetes. Pt to call for any acute concerns, complaints, or if the blood glucose readings are starting to become less controlled. 12/05/2016 Appointment: Maria Victoria Harrell WPtel: [phone] [facility] (15 min) Moderate 12/05/2016 Patient Education: Patient Medication Summary Completed 12/05/2016 Patient Education: Obesity Completed 12/05/2016 Care Plan: CT A[facility]EL[facility] [address]3 Pending 12/05/2016 Patient Education: Patient Medication Summary Completed 12/03/2016 Visit Plan: Hypertension - well controlled - continue with current medications, continue with no added salt diet. Pt has been encouraged to exercise daily. The pt has been advised to call the office if there are any acute concerns about change in blood pressure readings at home. Diabetes Mellitus - controlled - per recent FSBS reports. I have recommended for the patient to have follow up labs prior to the next office visit. The patient has been instructed to continue with current medications as previously directed, continue with regular FSBS monitoring to assure continued control of diabetes. Pt to call for any acute concerns, complaints, or if the blood glucose readings are starting to become less controlled. Back pain - injection into right mid to low back Essential tremor - supportive care 08/30/2016 Appointment: Maria Victoria Harrell WPtel: [phone] [facility] [place] (15 min) Moderate 08/30/2016 Patient Education: Patient Medication Summary Completed 08/30/2016 Patient Education: Obesity Completed 08/30/2016 Patient Education: Hypertension Completed 08/30/2016 Patient Education: Patient Medication Summary Completed 08/23/2016 Visit Plan: Left forearm pain-use voltaren gel as needed-xray forearm for further evaluation UA negative-patient instructed to increase po fluids-call if symptoms do not resolve 07/13/2016 Appointment: Sunitha Moran WPtel: [address] [place] [address] (10 min) Simple 07/13/2016 Patient Education: Patient Medication Summary Completed 07/13/2016 Patient Education: Obesity Completed 07/13/2016 Visit Plan: Trigger Points - Injected trigger points today, pt given post-injection instructions, signs and symptoms for which to call the office. Pt to use heat to the muscles today, and take an anti-inflammatory today unless otherwise contraindicated by renal function or other disease process. 06/21/2016 Visit Plan: Trigger Points - Injected trigger points today, pt given post-injection instructions, signs and symptoms for which to call the office. Pt to use heat to the muscles today, and take an anti-inflammatory today unless otherwise contraindicated by renal function or other disease process. 06/21/2016 Appointment: Sunitha Moran WPtel: [address] [place], [place] [id number] [place] [address] (30 min) Complex 06/21/2016 Patient Education: Patient Medication Summary Completed 06/21/2016 Appointment: Sunitha Moran WPtel: [address] [place], [place] [id number] [place] [address] (30 min) Complex 06/15/2016 Visit Plan: Hypertension - well controlled - continue with current medications, continue with no added salt diet. Pt has been encouraged to exercise daily. The pt has been advised to call the office if there are any acute concerns about change in blood pressure readings at home. Diabetes Mellitus - Uncontrolled - per recent FSBS reports. I have recommended for the patient to have follow up labs prior to the next office visit. The patient has been instructed to continue with current medications as previously directed, continue with regular FSBS monitoring to assure continued control of diabetes. Pt to call for any acute concerns, complaints, or if the blood glucose readings are starting to become less controlled. I have recommended for the patient to follow more strictly to the diabetic diet as discussed in clinic to allow for greater blood glucose control. Essential Tremor - monitor symptoms - no treatment at this time 05/24/2016 Patient Education: Patient Medication Summary Completed 05/24/2016 Patient Education: Obesity Completed 05/24/2016 Patient Education: Hypertension Completed 05/24/2016 Patient Education: Patient Medication Summary Completed 05/23/2016 Visit Plan: Hypertension - well controlled - continue with current medications, continue with no added salt diet. Pt has been encouraged to exercise daily. The pt has been advised to call the office if there are any acute concerns about change in blood pressure readings at home. Diabetes Mellitus - controlled - per recent FSBS reports. I have recommended for the patient to have follow up labs prior to the next office visit. The patient has been instructed to continue with current medications as previously directed, continue with regular FSBS monitoring to assure continued control of diabetes. Pt to call for any acute concerns, complaints, or if the blood glucose readings are starting to become less controlled. Low back pain- the patient was instructed in appropriate posture, need for weight loss to alleviate abdominal obesity that is worsening the patient's back pain.. The pt is to use prn antiinflammatories to manage acute pain. The patient is to call the office if the pain is worsening or does not improve. 01/24/2016 Appointment: Maria Victoria Harrell WPtel: [address] [place], [place] [id number] (15 min) Moderate 01/24/2016 Patient Education: Patient Medication Summary Completed 01/24/2016 Patient Education: Obesity Completed 01/24/2016 Patient Education: Hypertension Completed 01/24/2016 Visit Plan: Diabetes Mellitus - Uncontrolled - per recent FSBS reports. I have recommended for the patient to have follow up labs prior to the next office visit. The patient has been instructed to continue with current medications as previously directed, continue with regular FSBS monitoring to assure continued control of diabetes. Pt to call for any acute concerns, complaints, or if the blood glucose readings are starting to become less controlled. I have recommended for the patient to follow more strictly to the diabetic diet as discussed in clinic to allow for greater blood glucose control. But pt has had significantly improved control of his blood glucose with significant weight loss in the past few months. Hypertension - well controlled - continue with current medications, continue with no added salt diet. Pt has been encouraged to exercise daily. The pt has been advised to call the office if there are any acute concerns about change in blood pressure readings at home. Low back pain- the patient was instructed in appropriate posture, need for weight loss to alleviate abdominal obesity that is worsening the patient's back pain.. The pt is to use prn antiinflammatories to manage acute pain. The patient is to call the office if the pain is worsening or does not improve. 10/27/2015 Appointment: Maria Victoria Harrell [facility]Ptel[phone] [facility] [place] (15 min) Moderate 10/27/2015 Patient Education: Patient Medication Summary Completed 10/27/2015 Patient Education: Hypertension Completed 10/27/2015 Patient Education: Patient Medication Summary Completed 10/21/2015 Appointment: Lab Draw 10/03/2015 Patient Education: Patient Medication Summary Completed 10/03/2015 Visit Plan: Diabetes Mellitus - Uncontrolled - per recent FSBS reports. I have recommended for the patient to have follow up labs prior to the next office visit. The patient has been instructed to continue with current medications as previously directed, continue with regular FSBS monitoring to assure continued control of diabetes. Pt to call for any acute concerns, complaints, or if the blood glucose readings are starting to become less controlled. I have recommended for the patient to follow more strictly to the diabetic diet as discussed in clinic to allow for greater blood glucose control. 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 I have recommended for the patient to have follow up labs prior to the next office visit. The patient has been instructed to continue with current medications as previously directed, continue with regular FSBS monitoring to assure continued control of diabetes. Pt to call for any acute concerns, complaints, or if the blood glucose readings are starting to become less controlled. I have recommended for the patient to follow more strictly to the diabetic diet as discussed in clinic to allow for greater blood glucose control. Hypertension - well controlled - continue with current medications, continue with no added salt diet. Pt has been encouraged to exercise daily. The pt has been advised to call the office if there are any acute concerns about change in blood pressure readings at home. 08/17/2015 Appointment: Maria Victoria Harrell WPtel: [phone] [facility] (15 min) Moderate 08/17/2015 Patient Education: Patient Medication Summary Completed 08/17/2015 Patient Education: Hypertension Completed 08/17/2015 Visit Plan: Diabetes Mellitus - Uncontrolled - per recent FSBS reports. I have recommended for the patient to have follow up labs prior to the next office visit. The patient has been instructed to continue with current medications as previously directed, continue with regular FSBS monitoring to assure continued control of diabetes. Pt to call for any acute concerns, complaints, or if the blood glucose readings are starting to become less controlled. I have recommended for the patient to follow more strictly to the diabetic diet as discussed in clinic to allow for greater blood glucose control. Morbid obesity and back pain - discussed need to start on weight loss medication - rx for belviq 07/20/2015 Appointment: Maria Victoria Harrell WPtel[facility] [phone] [facility] (15 min) Moderate 07/20/2015 Patient Education: Patient Medication Summary Completed 07/20/2015 Appointment: Lab Draw 05/18/2015 Patient Education: Patient Medication Summary Completed 05/18/2015 Appointment: Lab Draw 05/09/2015 Patient Education: Patient Medication Summary Completed 05/09/2015 Visit Plan: Diabetes Mellitus - Uncontrolled - per recent FSBS reports. I have recommended for the patient to have follow up labs prior to the next office visit. The patient has been instructed to continue with current medications as previously directed, continue with regular FSBS monitoring to assure continued control of diabetes. Pt to call for any acute concerns, complaints, or if the blood glucose readings are starting to become less controlled. I have recommended for the patient to follow more strictly to the diabetic diet as discussed in clinic to allow for greater blood glucose control. Hypertension - well controlled - continue with current medications, continue with no added salt diet. Pt has been encouraged to exercise daily. The pt has been advised to call the office if there are any acute concerns about change in blood pressure readings at home. Obesity - chronic issue with this patient. The pt has been counseled about diet changes, calorie restriction, and need to exercise. Pt will RTC in one month for weight check. RX for belviq Peripheral neuropathy - recommended pt to have diaetic shoes - monitor symptoms, may need to consider neurontin if symptoms worsen - also recommended diabetic shoes. 04/20/2015 Appointment: Maria Victoria Harrell [facility]Ptel[facility] [phone] [facility] (15 min) Moderate 04/20/2015 Patient Education: Patient Medication Summary Completed 04/20/2015 Visit Plan: Ears clear today-no need for further treatment or ear lavage today 02/28/2015 Appointment: (15 min) Moderate 02/28/2015 Patient Education: Patient Medication Summary Completed 02/28/2015 Visit Plan: Diabetes Mellitus - Uncontrolled - per recent FSBS reports. I have recommended for the patient to have follow up labs prior to the next office visit. The patient has been instructed to continue with current medications as previously directed, continue with regular FSBS monitoring to assure continued control of diabetes. Pt to call for any acute concerns, complaints, or if the blood glucose readings are starting to become less controlled. I have recommended for the patient to follow more strictly to the diabetic diet as discussed in clinic to allow for greater blood glucose control. Hypertension - well controlled - continue with current medications, continue with no added salt diet. Pt has been encouraged to exercise daily. The pt has been advised to call the office if there are any acute concerns about change in blood pressure readings at home. 02/14/2015 Appointment: Maria Victoria Harrell WPtel: [phone] [facility] Follow up 02/14/2015 Patient Education: Patient Medication Summary Completed 02/14/2015 Patient Education: Hypertension Completed 02/14/2015 Visit Plan: Diabetes Mellitus - Uncontrolled - per recent FSBS reports. I have recommended for the patient to have follow up labs prior to the next office visit. The patient has been instructed to continue with current medications as previously directed, continue with regular FSBS monitoring to assure continued control of diabetes. Pt to call for any acute concerns, complaints, or if the blood glucose readings are starting to become less controlled. I have recommended for the patient to follow more strictly to the diabetic diet as discussed in clinic to allow for greater blood glucose control. 11/11/2014 Appointment: Maria Victoria Harrell WPtel: [phone] [facility] [place] Follow up 11/11/2014 Patient Education: Patient Medication Summary Completed 11/11/2014 Appointment: Maria Victoria Harrell WPtel: [phone] [facility] Follow up 11/04/2014 Visit Plan: Esophageal Reflux - the patient has been counseled against excessive intake of caffeine, spicy foods, peppermint, and cinnamon - all of which can exacerbate esophageal reflux. The patient is to take med ications as prescribed and call the office if the symptoms are not improving. Dysphagia - recommended pt have EGD - will get with us to determine who he will see for an EGD. Diabetes Mellitus - controlled - per recent FSBS reports. I have recommended for the patient to have follow up labs prior to the next office visit. The patient has been instructed to continue with current medications as previously directed, continue with regular FSBS monitoring to assure continued control of diabetes. Pt to call for any acute concerns, complaints, or if the blood glucose readings are starting to become less controlled. Hypertension - well controlled - continue with current medications, continue with no added salt diet. Pt has been encouraged to exercise daily. The pt has been advised to call the office if there are any acute concerns about change in blood pressure readings at home. 10/04/2014 Appointment: Maria Victoria Harrell WPtel: [phone] [facility] [place] Follow up 10/04/2014 Patient Education: Patient Medication Summary Completed 10/04/2014 Patient Education: Hypertension Completed 10/04/2014 Appointment: Maria Victoria Harrell WPtel: [phone] [facility] [place] Follow up 08/19/2014 Visit Plan: Diabetes Mellitus - controlled - per recent FSBS reports. I have recommended for the patient to have follow up labs prior to the next office visit. The patient has been instructed to continue with current medications as previously directed, continue with regular FSBS monitoring to assure continued control of diabetes. Pt to call for any acute concerns, complaints, or if the blood glucose readings are starting to become less controlled. Hypertension - well controlled - continue with current medications, continue with no added salt diet. Pt has been encouraged to exercise daily. The pt has been advised to call the office if there are any acute concerns about change in blood pressure readings at home. BPH - start avodart 08/02/2014 Appointment: Maria Victoria Harrell WPtel: [phone] [facility] Sick 08/02/2014 Patient Education: Patient Medication Summary Completed 08/02/2014 Patient Education: Hypertension Completed 08/02/2014 Visit Plan: Enlarged prostate with decreased urine flow - recommended that the patient start on tamsulosin 0.4mg daily - will need to start him on this in about 2-3 weeks. Check PSA in 2-3 weeks. 06/15/2014 Appointment: Maria Victoria Harrell WPtel: [phone] [facility] [place] Follow up 06/15/2014 Patient Education: Patient Medication Summary Completed 06/15/2014 Appointment: Maria Victoria Harrell WPtel: [phone] [facility] [place] Injection 06/03/2014 Patient Education: Patient Medication Summary Completed 06/03/2014 Visit Plan: Sacroilitis-right hip pain-sciatica - back exercises discussed with the patient, pt to continue with antiinflammatories. Pt is to call if the symptoms do not improve or if they worsen. Kenalog injection today in the office for acute symtpoms. 05/04/2014 Appointment: Sick 05/04/2014 Patient Education: Patient Medication Summary Completed 05/04/2014 Visit Plan: Diabetes Mellitus - Uncontrolled - per recent FSBS reports. I have recommended for the patient to have follow up labs prior to the next office visit. The patient has been instructed to continue with current medications as previously directed, continue with regular FSBS monitoring to assure continued control of diabetes. Pt to call for any acute concerns, complaints, or if the blood glucose readings are starting to become less controlled. I have recommended for the patient to follow more strictly to the diabetic diet as discussed in clinic to allow for greater blood glucose control. HTN - controlled - no change in medication dose at this time. Pt has an appt for Dr. Colon june 09. Dr. Killian - pt to see this Opthamologist in [place] - May 25. 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 Recommended pt to have his CPAP checked as he may have need of the CPAP setting changed. Nightmares - recommended pt to call if symptoms do not improve with adjustments of his CPAP settings. 02/08/2014 Appointment: Maria Victoria Harrell WPtel: [phone] [facility] Follow up 02/08/2014 Patient Education: Patient Medication Summary Completed 02/08/2014 Visit Plan: Diabetes Mellitus - Uncontrolled - per recent FSBS reports. I have recommended for the patient to have follow up labs prior to the next office visit. The patient has been instructed to continue with current medications as previously directed, continue with regular FSBS monitoring to assure continued control of diabetes. Pt to call for any acute concerns, complaints, or if the blood glucose readings are starting to become less controlled. I have recommended for the patient to follow more strictly to the diabetic diet as discussed in clinic to allow for greater blood glucose control. Pt in need of diabetic foot eval and shoes. 01/13/2014 Appointment: Maria Victoria Harrell WPtel: [phone] [facility] [place] Follow up 01/13/2014 Patient Education: Patient Medication Summary Completed 01/13/2014 Visit Plan: Hypertension - well controlled - continue with current medications, continue with no added salt diet. Pt has been encouraged to exercise daily. The pt has been advised to call the office if there are any acute concerns about change in blood pressure readings at home. Diabetes Mellitus - Uncontrolled - per recent FSBS reports. I have recommended for the patient to have follow up labs prior to the next office visit. The patient has been instructed to continue with current medications as previously directed, continue with regular FSBS monitoring to assure continued control of diabetes. Pt to call for any acute concerns, complaints, or if the blood glucose readings are starting to become less controlled. I have recommended for the patient to follow more strictly to the diabetic diet as discussed in clinic to allow for greater blood glucose control. Pt has been having poorly controlled dietary intake over the holiday season - he has not been as physically active over the holiday either. Pt is to bring in his FSBS in a few months. Morbid Obesity - pt is aware of the need to exercise and continue to work on weight loss. Hand pain - specifically right tumb pain - recommended referral to Dr. Fine at [facility] the [address] [place] [address]. 10/14/2013 Patient Education: Patient Medication Summary Completed 10/14/2013 Patient Education: Hypertension Completed 10/14/2013 Patient Education: .Amazing charts Diabetic meal planning guide Completed 10/14/2013 Visit Plan: Diabetes Mellitus - controlled - per recent FSBS reports. I have recommended for the patient to have follow up labs prior to the next office visit. The patient has been instructed to continue with current medications as previously directed, continue with regular FSBS monitoring to assure continued control of diabetes. Pt to call for any acute concerns, complaints, or if the blood glucose readings are starting to become less controlled. Hypertension - uncontrolled - the patient's medications have been modified as documented in the visit note. The patient has been counseled to cut back on salt in diet for a no added salt diet, low fat diet, start an exercise program with low weight bearing exercises and higher aerobic activity for heart health. The patient is to check blood pressure readings as an outpatient and either fax, call, or email the readings to the office next week for practicioner to review. The pt is to call for acute concerns. flat feet - recommended better arch support. 07/01/2013 Appointment: Maria Victoria Harrell WPtel: [phone] [facility] Follow up 07/01/2013 Patient Education: Patient Medication Summary Completed 07/01/2013 Patient Education: Hypertension Completed 07/01/2013 Appointment: Maria Victoria Harrell WPtel: [phone] [facility] Other 05/13/2013 Patient Education: Patient Medication Summary Completed 05/13/2013 Appointment: Maria Victoria Harrell WPtel: [phone] [facility] Other 04/15/2013 Patient Education: Patient Medication Summary Completed 04/15/2013 Visit Plan: Diabetes Mellitus - Uncontrolled - per recent FSBS reports. I have recommended for the patient to have follow up labs prior to the next office visit. The patient has been instructed to continue with current medications as previously directed, continue with regular FSBS monitoring to assure continued control of diabetes. Pt to call for any acute concerns, complaints, or if the blood glucose readings are starting to become less controlled. I have recommended for the patient to follow more strictly to the diabetic diet as discussed in clinic to allow for greater blood glucose control. increase insulin to 25 units bid. Obesity - again discussed need for dietary restriction - pt understands need for dietary control,but states that he just doesn't want to restrict his diet or exercise as necessary to obtain more profound weight loss. 03/04/2013 Appointment: Maria Victoria Harrell WPtel: [phone] [facility] Follow up 03/04/2013 Patient Education: Patient Medication Summary Completed 03/04/2013 Patient Education: .Amazing charts Diabetic meal planning guide Completed 03/04/2013 Visit Plan: Diabetes Mellitus - Uncontrolled - per recent FSBS reports. I have recommended for the patient to have follow up labs prior to the next office visit. The patient has been instructed to continue with current medications as previously directed, continue with regular FSBS monitoring to assure continued control of diabetes. Pt to call for any acute concerns, complaints, or if the blood glucose readings are starting to become less controlled. I have recommended for the patient to follow more strictly to the diabetic diet as discussed in clinic to allow for greater blood glucose control. Obesity - chronic issue with this patient. The pt has been counseled about diet changes, calorie restriction, and need to exercise. Pt will RTC in one month for weight check. Back pain and hip pain - pt to see back specialist. Recommended weight loss as a component of healthy back and body. 02/04/2013 Appointment: Maria Victoria Harrell WPtel: [facility] Follow up 02/04/2013 Patient Education: Patient Medication Summary Completed 02/04/2013 Visit Plan: Diabetes Mellitus - Uncontrolled - per recent FSBS reports. I have recommended for the patient to have follow up labs prior to the next office visit. The patient has been instructed to continue with current medications as previously directed, continue with regular FSBS monitoring to assure continued control of diabetes. Pt to call for any acute concerns, complaints, or if the blood glucose readings are starting to become less controlled. I have recommended for the patient to follow more strictly to the diabetic diet as discussed in clinic to allow for greater blood glucose control. increasing the lantus to 30 units at bedtime, take bannana and orange juice and multivitamin at bedtime. 12/03/2012 Appointment: Maria Victoria Harrell WPtel: [address] [place], [place] [id number] Follow up 12/03/2012 Patient Education: Patient Medication Summary Completed 12/03/2012 Visit Plan: Tinnitus-cerumen impaction-cerumen adhered to left TM-discussed using sweet oil nightly for the next week and call if symptoms have not improved. Patient verbalized understanding of plan . 10/14/2012 Appointment: Sunitha Moran WPtel: [address] [place], [place] [id number] Sick 10/14/2012 Patient Education: Patient Medication Summary Completed 10/14/2012 Visit Plan: Arthritis- occasionally uncontrolled symptoms- recommend pt to take antiinflammatory as directed for pain control. Use tylenol for break through pain symptoms. 09/29/2012 Appointment: Maria Victoria Harrell WPtel: [phone] [address] [place], [place] [id number] Other 09/29/2012 Patient Education: Patient Medication Summary Completed 09/29/2012 Patient Education: .Amazing charts- low back pain Completed 09/29/2012 Patient Education: Iliotibial Band Syndrome Exercises Completed 09/29/2012 Visit Plan: Joint Injection - Pt was given post - injection instructions. The pt has been advised to use antiinflammatories post injection today, ice to the injected site, call if redness, warmth, or increased pain occurs at the site of injection. DM-fairly well controlled-instructed patient to monitor closely for the next few days as the injection may cause a slight elevation in blood sugars. Otherwise, blood sugars 09/25/2012 Appointment: Sunith[facility] Moran [facility]el[phone] [id number] [place] Other 09/25/2012 Patient Education: Patient Medication Summary Completed 09/25/2012 Visit Plan: Diabetes Mellitus - Uncontrolled - per recent FSBS reports. I have recommended for the patient to have follow up labs prior to the next office visit. The patient has been instructed to continue with current medications as previously directed, continue with regular FSBS monitoring to assure continued control of diabetes. Pt to call for any acute concerns, complaints, or if the blood glucose readings are starting to become less controlled. I have recommended for the patient to follow more strictly to the diabetic diet as discussed in clinic to allow for greater blood glucose control. Pt is to INCREASE HIS LANTUS TO 20 UNITS DAILY. 08/27/2012 Appointment: Maria Victoria Harrell [facility]Ptel[facility] [phone] [facility] [place] Follow up 08/27/2012 Patient Education: Patient Medication Summary Completed 08/27/2012 Visit Plan: Diabetes Mellitus - Uncontrolled - per recent FSBS reports. I have recommended for the patient to have follow up labs prior to the next office visit. The patient has been instructed to continue with current medications as previously directed, continue with regular FSBS monitoring to assure continued control of diabetes. Pt to call for any acute concerns, complaints, or if the blood glucose readings are starting to become less controlled. I have recommended for the patient to follow more strictly to the diabetic diet as discussed in clinic to allow for greater blood glucose control. Improved control on lantus 10 units, but recommendation to increase to 13 units - pt has had significant drops in his FSBS, there are a few lower FSBS in the evenings, therefore, the slight adjustment of only 3 units increase was made. 06/25/2012 Appointment: Maria Victoria Harrell WPtel[phone] [facility] [place] Follow up 06/25/2012 Patient Education: Patient Medication Summary Completed 06/25/2012 Patient Education: Patient Medication Summary Completed 06/04/2012 Visit Plan: Diabetes Mellitus - Uncontrolled - per recent FSBS reports. I have recommended for the patient to have follow up labs prior to the next office visit. The patient has been instructed to continue with current medications as previously directed, continue with regular FSBS monitoring to assure continued control of diabetes. Pt to call for any acute concerns, complaints, or if the blood glucose readings are starting to become less controlled. I have recommended for the patient to follow more strictly to the diabetic diet as discussed in clinic to allow for greater blood glucose control. PT TO STOP BYETTA AND START ON INSULIN LANTUS 10 units subcutaneously once daily at night. 06/03/2012 Appointment: Maria Victoria Harrell WPtel: [phone] [facility] Follow up 06/03/2012 Patient Education: Patient Medication Summary Completed 06/03/2012 Patient Education: High Blood Pressure: Essential Hypertension Completed 06/03/2012 Visit Plan: Diabetes Mellitus - controlled - per recent FSBS reports. I have recommended for the patient to have follow up labs prior to the next office visit. The patient has been instructed to continue with current medications as previously directed, continue with regular FSBS monitoring to assure continued control of diabetes. Pt to call for any acute concerns, complaints, or if the blood glucose readings are starting to become less controlled. Back pain - improved, continued to encourage pt to loose weight and exercise as this will help to improve his back muscle strength and thus help to decrease his back pain. 04/24/2012 Appointment: Maria Victoria Harrell WPtel: [phone] [facility] Follow up 04/24/2012 Patient Education: Patient Medication Summary Completed 04/24/2012 Visit Plan: Low back pain- the patient was instructed in appropriate posture, need for weight loss to alleviate abdominal obesity that is worsening the patient's back pain.. The pt is to use prn antiinflammatories to manage acute pain. The patient is to call the office if the pain is worsening or does not improve. Depression- start at 1/2 tab of the celexa and call if symptoms do not improve. 04/09/2012 Appointment: Maria Victoria Harrell WPtel: [phone] [facility] Other 04/09/2012 Patient Education: Patient Medication Summary Completed 04/09/2012 Patient Education: .Amazing charts Exercise for Sciatica Completed 04/09/2012 Appointment: Sunitha Moran WPtel: [phone] [id number] Other 03/13/2012 Visit Plan: Diabetes Mellitus - Uncontrolled - per recent FSBS reports. I have recommended for the patient to have follow up labs prior to the next office visit. The patient has been instructed to continue with current medications as previously directed, continue with regular FSBS monitoring to assure continued control of diabetes. Pt to call for any acute concerns, complaints, or if the blood glucose readings are starting to become less controlled. I have recommended for the patient to follow more strictly to the diabetic diet as discussed in clinic to allow for greater blood glucose control. Pt got abdominal pain and nausea with the victoza, therefore, will see if bydurion is going to be too expensive for Bert to buy, if son then will go back to sarmad. Hypertension - well controlled - continue with current medications, continue with no added salt diet. Pt has been encouraged to exercise daily. The pt has been advised to call the office if there are any acute concerns about change in blood pressure readings at home. Abscess/Cellulitis - The patient was instructed in appropriate wound care. The patient was instructed to use the antibiotic ointment as per RX. The patient is to call for any change in sympto ms, increase in size of the lesion, increase in pain. 03/04/2012 Appointment: Maria Victoria Harrell WPtel: [phone] [facility] [place] Other 03/04/2012 Patient Education: Patient Medication Summary Completed 03/04/2012 Patient Education: High Blood Pressure: Essential Hypertension Completed 03/04/2012 Visit Plan: Diabetes Mellitus - controlled - per recent FSBS reports. I have recommended for the patient to have follow up labs prior to the next office visit. The patient has been instructed to continue with current medications as previously directed, continue with regular FSBS monitoring to assure continued control of diabetes. Pt to call for any acute concerns, complaints, or if the blood glucose readings are starting to become less controlled. Again discussed the need to exercise, recommended a recumbant bike for exercise as his back hurts when he exercises. 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 12/03/2011 Appointment: Beto Harrelly WPtel: [phone] [facility] Other 12/03/2011 Patient Education: Patient Medication Summary Completed 12/03/2011 Appointment: Maria Victoria Harrell WPtel: [phone] [facility] Other 11/06/2011 Visit Plan: Diabetes Mellitus - Uncontrolled - per recent FSBS reports. I have recommended for the patient to have follow up labs prior to the next office visit. The patient has been instructed to continue with current medications as previously directed, continue with regular FSBS monitoring to assure continued control of diabetes. Pt to call for any acute concerns, complaints, or if the blood glucose readings are starting to become less controlled. I have recommended for the patient to follow more strictly to the diabetic diet as discussed in clinic to allow for greater blood glucose control. Stop victoza when the current pens run out and start on byetta at 5mcg twice daily x 3 days then increase to 10mcg twice daily. Obesity - chronic issue with this patient. The pt has been counseled about diet changes, calorie restriction, and need to exercise. Pt will RTC in one month for weight check. Chest pain - recommended pt to consider second opinion for cardiac catheterization as he has atypical chest pain that continues off and on - he has triple/quadruple risk factors with his DM, HTN, Hyperlipidemia, and Morbid Obesity and I would feel more comfortable that his chest pain is non-cardiac if he is taken for cardiac cath. He will consider this as he is also not comfortable with the lack of further investigative studies planned by his current manager loss prevention. 10/31/2011 Appointment: Sharri Maria Victoria WPtel: [phone] [facility] Other 10/31/2011 Patient Education: Patient Medication Summary Completed 10/31/2011 Patient Education: High Blood Pressure: Essential Hypertension Completed 10/31/2011 Visit Plan: Hypertension - well controlled - continue with current medications, continue with no added salt diet. Pt has been encouraged to exercise daily. The pt has been advised to call the office if there are any acute concerns about change in blood pressure readings at home. Diabetes Mellitus - Uncontrolled - per recent FSBS reports. I have recommended for the patient to have follow up labs prior to the next office visit. The patient has been instructed to continue with current medications as previously directed, continue with regular FSBS monitoring to assure continued control of diabetes. Pt to call for any acute concerns, complaints, or if the blood glucose readings are starting to become less controlled. I have recommended for the patient to follow more strictly to the diabetic diet as discussed in clinic to allow for greater blood glucose control. Morbid Obesity - chronic issue with this patient. The pt has been counseled about diet changes, calorie restriction, and need to exercise. Pt will RTC in one month for weight check. 08/29/2011 Appointment: Maria Victoria Harrell WPtel: [phone] [facility] Other 08/29/2011 Patient Education: Patient Medication Summary Completed 08/29/2011 Patient Education: High Blood Pressure: Essential Hypertension Completed 08/29/2011 Visit Plan: left index finger irritated actinic keratosis removed actinic keratosis removed from dorsum of hand as well and in web of the 4th digit 07/24/2011 Appointment: Maria Victoria Harrell WPtel[phone] [facility] [facility] 07/24/2011 Patient Education: Patient Medication Summary Completed 07/24/2011 Visit Plan: Diabetes Mellitus - Uncontrolled - per recent FSBS reports. I have recommended for the patient to have follow up labs prior to the next office visit. The patient has been instructed to continue with current medications as previously directed, continue with regular FSBS monitoring to assure continued control of diabetes. Pt to call for any acute concerns, complaints, or if the blood glucose readings are starting to become less controlled. I have recommended for the patient to follow more strictly to the diabetic diet as discussed in clinic to allow for greater blood glucose control. NO CHANGE IN VICTOZA DOSE.. I HAVE RECCOMMENDED WEIGHT LOSS AND EXERCISE TO AUGMENT DIABETIC CONTROL. Hypertension - uncontrolled - the patient's medications have been modified as documented in the visit note. The patient has been counseled to cut back on salt in diet for a no added salt diet, low fat diet, start an exercise program with low weight bearing exercises and higher aerobic activity for heart health. The patient is to check blood pressure readings as an outpatient and either fax, call, or email the readings to the office next week for practicioner to review. The pt is to call for acute concerns. INCREASE AVAPRO TO 300 mg daily. 07/18/2011 Appointment: Maria Victoria Harrell WPtel: [phone] [facility] [facility] 07/18/2011 Patient Education: Patient Medication Summary Completed 07/18/2011 Patient Education: High Blood Pressure: Essential Hypertension Completed 07/18/2011 Referral: Jose Manuel Referral Appointment Requested Referral: [facility] Referral Appointment Requested Referral: Kiran Laird MD WPtel: Referral Completed Instructions Comment . Sciatica- exercises discussed with the patient, pt to continue with antiinflammatories. Pt is to call if the symptoms do not improve or if they worsen. Kenalog injection today in the office. . Diabetes Mellitus - controlled - per recent FSBS reports. I have recommended for the patient to have follow up labs prior to the next office visit. The patient has been instructed to continue with current medications as previously directed, continue with regular FSBS monitoring to assure continued control of diabetes. Pt to call for any acute concerns, complaints, or if the blood glucose readings are starting to become less controlled. Again discussed the need to exercise, recommended a recumbant bike for exercise as his back hurts when he exercises. 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 INCREASE LANTUS TO 30 UNITS TWICE DAILY!!!!! . Diabetes Mellitus - Uncontrolled - per recent FSBS reports. I have recommended for the patient to have follow up labs prior to the next office visit. The patient has been instructed to continue with current medications as previously directed, continue with regular FSBS monitoring to assure continued control of diabetes. Pt to call for any acute concerns, complaints, or if the blood glucose readings are starting to become less controlled. I have recommended for the patient to follow more strictly to the diabetic diet as discussed in clinic to allow for greater blood glucose control. Hypertension - well controlled - continue with current medications, continue with no added salt diet. Pt has been encouraged to exercise daily. The pt has been advised to call the office if there are any acute concerns about change in blood pressure readings at home. increase insulin to 25 units bid. Diabetes Mellitus - Uncontrolled - per recent FSBS reports. I have recommended for the patient to have follow up labs prior to the next office visit. The patient has been instructed to continue with current medications as previously directed, continue with regular FSBS monitoring to assure continued control of diabetes. Pt to call for any acute concerns, complaints, or if the blood glucose readings are starting to become less controlled. I have recommended for the patient to follow more strictly to the diabetic diet as discussed in clinic to allow for greater blood glucose control. increase insulin to 25 units bid. Obesity - again discussed need for dietary restriction - pt understands need for dietary control,but states that he just doesn't want to restrict his diet or exercise as necessary to obtain more profound weight loss. Pt is to INCREASE HIS LANTUS TO 20 UNITS DAILY.. Diabetes Mellitus - Uncontrolled - per recent FSBS reports. I have recommended for the patient to have follow up labs prior to the next office visit. The patient has been instructed to continue with current medications as previously directed, continue with regular FSBS monitoring to assure continued control of diabetes. Pt to call for any acute concerns, complaints, or if the blood glucose readings are starting to become less controlled. I have recommended for the patient to follow more strictly to the diabetic diet as discussed in clinic to allow for greater blood glucose control. Pt is to INCREASE HIS LANTUS TO 20 UNITS DAILY. . Diabetes Mellitus - Uncontrolled - per recent FSBS reports. I have recommended for the patient to have follow up labs prior to the next office visit. The patient has been instructed to continue with current medications as previously directed, continue with regular FSBS monitoring to assure continued control of diabetes. Pt to call for any acute concerns, complaints, or if the blood glucose readings are starting to become less controlled. I have recommended for the patient to follow more strictly to the diabetic diet as discussed in clinic to allow for greater blood glucose control. Stop victoza when the current pens run out and start on byetta at 5mcg twice daily x 3 days then increase to 10mcg twice daily. Obesity - chronic issue with this patient. The pt has been counseled about diet changes, calorie restriction, and need to exercise. Pt will RTC in one month for weight check. Chest pain - recommended pt to consider second opinion for cardiac catheterization as he has atypical chest pain that continues off and on - he has triple/quadruple risk factors with his DM, HTN, Hyperlipidemia, and Morbid Obesity and I would feel more comfortable that his chest pain is non-cardiac if he is taken for cardiac cath. He will consider this as he is also not comfortable with the lack of further investigative studies planned by his current manager loss prevention. decrease toujeo to 25 units next week - as long as the blood glucose is averaging below 150, then decrease by 5 units weekly until the blood glucose is either at an average of 150 - then stop the taper, or if the average blood glucose continues to be below 150, you can continue to taper down until you are off of the toujeo. . Diabetes Mellitus - controlled - per recent FSBS reports. - pt advised as follows: decrease toujeo to 25 units next week - as long as the blood glucose is averaging below 150, then decrease by 5 units weekly until the blood glucose is either at an average of 150 - then stop the taper, or if the average blood glucose continues to be below 150, you can continue to taper down until you are off of the toujeo. Hypertension - well controlled - continue with current medications, continue with no added salt diet. Pt has been encouraged to exercise daily. The pt has been advised to call the office if there are any acute concerns about change in blood pressure readings at home. Hyperlipidemia - pt has been counseled about appropriate diet, exercise, and need for low fat food choices. I have discussed the need for the patient to take medications as prescribed. If the patient has negative side effects from the medication, they are to CALL the office and not abruptly discontinue the medication without discussion with a practitioner in the office. We will check labs in 3-6 months for follow up on the patient's chronic medical problem and to assure normal liver response to medications. . Low back pain- the patient was instructed in appropriate posture, need for weight loss to alleviate abdominal obesity that is worsening the patient's back pain.. The pt is to use prn antiinflammatories to manage acute pain. The patient is to call the office if the pain is worsening or does not improve. Depression- start at 1/2 tab of the celexa and call if symptoms do not improve. . Skin tag removed - pt tolerated procedure well - Wound Instructions - Pt was instructed to keep the wound clean, wash with antibacterial soap, use triple antibiotic ointment, call if redness, pustular drainage, or any other acute concerns. . Hypertension - well controlled - continue with current medications, continue with no added salt diet. Pt has been encouraged to exercise daily. The pt has been advised to call the office if there are any acute concerns about change in blood pressure readings at home. Diabetes Mellitus - controlled - per recent FSBS reports. I have recommended for the patient to have follow up labs prior to the next office visit. The patient has been instructed to continue with current medications as previously directed, continue with regular FSBS monitoring to assure continued control of diabetes. Pt to call for any acute concerns, complaints, or if the blood glucose readings are starting to become less controlled. Back pain - injection into right mid to low back Essential tremor - supportive care . Hypertension - well controlled - continue with current medications, continue with no added salt diet. Pt has been encouraged to exercise daily. The pt has been advised to call the office if there are any acute concerns about change in blood pressure readings at home. Diabetes Mellitus - controlled - per recent FSBS reports. I have recommended for the patient to have follow up labs prior to the next office visit. The patient has been instructed to continue with current medications as previously directed, continue with regular FSBS monitoring to assure continued control of diabetes. Pt to call for any acute concerns, complaints, or if the blood glucose readings are starting to become less controlled. Low back pain- the patient was instructed in appropriate posture, need for weight loss to alleviate abdominal obesity that is worsening the patient's back pain.. The pt is to use prn antiinflammatories to manage acute pain. The patient is to call the office if the pain is worsening or does not improve. VIMOVO 1 TAB TWICE DAILY . Trigger Points - Injected trigger points today, pt given post-injection instructions, signs and symptoms for which to call the office. Pt to use heat to the muscles today, and take an anti-inflammatory today unless otherwise contraindicated by renal function or other disease process. VIMOVO 1 TAB TWICE DAILY . Trigger Points - Injected trigger points today, pt given post-injection instructions, signs and symptoms for which to call the office. Pt to use heat to the muscles today, and take an anti-inflammatory today unless otherwise contraindicated by renal function or other disease process. . Hypertension - well controlled - continue with current medications, continue with no added salt diet. Pt has been encouraged to exercise daily. The pt has been advised to call the office if there are any acute concerns about change in blood pressure readings at home. Diabetes Mellitus - controlled - per recent FSBS reports. I have recommended for the patient to have follow up labs prior to the next office visit. The patient has been instructed to continue with current medications as previously directed, continue with regular FSBS monitoring to assure continued control of diabetes. Pt to call for any acute concerns, complaints, or if the blood glucose readings are starting to become less controlled. Essential tremor - supportive care - discussed dx with the patient - he is not a candidate for treatment - he does not have Parkinson's disease. trujeo - new insulin dose would be 60 units daily Belviq for weight loss - 10mg twice daily - see cost at [facility] . Diabetes Mellitus - Uncontrolled - per recent FSBS reports. I have recommended for the patient to have follow up labs prior to the next office visit. The patient has been instructed to continue with current medications as previously directed, continue with regular FSBS monitoring to assure continued control of diabetes. Pt to call for any acute concerns, complaints, or if the blood glucose readings are starting to become less controlled. I have recommended for the patient to follow more strictly to the diabetic diet as discussed in clinic to allow for greater blood glucose control. Hypertension - well controlled - continue with current medications, continue with no added salt diet. Pt has been encouraged to exercise daily. The pt has been advised to call the office if there are any acute concerns about change in blood pressure readings at home. Obesity - chronic issue with this patient. The pt has been counseled about diet changes, calorie restriction, and need to exercise. Pt will RTC in one month for weight check. RX for belviq Peripheral neuropathy - recommended pt to have diaetic shoes - monitor symptoms, may need to consider neurontin if symptoms worsen - also recommended diabetic shoes. . Diabetes Mellitus - Uncontrolled - per recent FSBS reports. I have recommended for the patient to have follow up labs prior to the next office visit. The patient has been instructed to continue with current medications as previously directed, continue with regular FSBS monitoring to assure continued control of diabetes. Pt to call for any acute concerns, complaints, or if the blood glucose readings are starting to become less controlled. I have recommended for the patient to follow more strictly to the diabetic diet as discussed in clinic to allow for greater blood glucose control. Obesity - chronic issue with this patient. The pt has been counseled about diet changes, calorie restriction, and need to exercise. Pt will RTC in one month for weight check. Back pain and hip pain - pt to see back specialist. Recommended weight loss as a component of healthy back and body. apply the efudex (florouracil) to the skin lesion on the back of your scalp - twice daily x 10 days - when done with the 10 days start using neosporin on the lesion until it heals. . Hypertension - well controlled - continue with current medications, continue with no added salt diet. Pt has been encouraged to exercise daily. The pt has been advised to call the office if there are any acute concerns about change in blood pressure readings at home. Diabetes Mellitus - controlled - per recent FSBS reports. I have recommended for the patient to have follow up labs prior to the next office visit. The patient has been instructed to continue with current medications as previously directed, continue with regular FSBS monitoring to assure continued control of diabetes. Pt to call for any acute concerns, complaints, or if the blood glucose readings are starting to become less controlled. . Tinnitus-cerumen impaction-cerumen adhered to left TM-discussed using sweet oil nightly for the next week and call if symptoms have not improved. Patient verbalized understanding of plan . . Diabetes Mellitus - Uncontrolled - per recent FSBS reports. I have recommended for the patient to have follow up labs prior to the next office visit. The patient has been instructed to continue with current medications as previously directed, continue with regular FSBS monitoring to assure continued control of diabetes. Pt to call for any acute concerns, complaints, or if the blood glucose readings are starting to become less controlled. I have recommended for the patient to follow more strictly to the diabetic diet as discussed in clinic to allow for greater blood glucose control. Improved control on lantus 10 units, but recommendation to increase to 13 units - pt has had significant drops in his FSBS, there are a few lower FSBS in the evenings, therefore, the slight adjustment of only 3 units increase was made. . Palpitations - recommended a holter monitor x 24 hours since the patient has the cough when he is feeling a fluttering sensation in his chest. Peripheral neuropathy from diabetes mellitus - continue current dose of insulin - pt's hgba1c is elevated, but slowly improving. Pt is not compliant with a diabetic diet. Pt needs special shoes for his feet due to DM - he needs wide width, extra depth shoes with custom molded inserts. 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 Hypertension - well controlled - continue with current medications, continue with no added salt diet. Pt has been encouraged to exercise daily. The pt has been advised to call the office if there are any acute concerns about change in blood pressure readings at home. Dr. Mai at [facility] - Cardiothoracic surgeon. . Hypertension - well controlled - continue with current medications, continue with no added salt diet. Pt has been encouraged to exercise daily. The pt has been advised to call the office if there are any acute concerns about change in blood pressure readings at home. Diabetes Mellitus - Uncontrolled - but improved per his recent FSBS reports. I have recommended for the patient to have follow up labs prior to the next office visit. The patient has been instructed to continue with current medications as previously directed, continue with regular FSBS monitoring to assure continued control of diabetes. Pt to call for any acute concerns, complaints, or if the blood glucose readings are starting to become less controlled. I have recommended for the patient to follow more strictly to the diabetic diet as discussed in clinic to allow for greater blood glucose control. Carotid stenosis - pt to have repeat Carotid US and if he needs surgery - he would like to consider Dr. Mai . Hypertension - well controlled - continue with current medications, continue with no added salt diet. Pt has been encouraged to exercise daily. The pt has been advised to call the office if there are any acute concerns about change in blood pressure readings at home. Diabetes Mellitus - Uncontrolled - per recent FSBS reports. I have recommended for the patient to have follow up labs prior to the next office visit. The patient has been instructed to continue with current medications as previously directed, continue with regular FSBS monitoring to assure continued control of diabetes. Pt to call for any acute concerns, complaints, or if the blood glucose readings are starting to become less controlled. I have recommended for the patient to follow more strictly to the diabetic diet as discussed in clinic to allow for greater blood glucose control. Essential Tremor - monitor symptoms - no treatment at this time . Diabetes Mellitus - Uncontrolled - per recent FSBS reports. I have recommended for the patient to have follow up labs prior to the next office visit. The patient has been instructed to continue with current medications as previously directed, continue with regular FSBS monitoring to assure continued control of diabetes. Pt to call for any acute concerns, complaints, or if the blood glucose readings are starting to become less controlled. I have recommended for the patient to follow more strictly to the diabetic diet as discussed in clinic to allow for greater blood glucose control. Pt got abdominal pain and nausea with the victoza, therefore, will see if bydurion is going to be too expensive for Bert to buy, if son then will go back to [facility]. Hypertension - well controlled - continue with current medications, continue with no added salt diet. Pt has been encouraged to exercise daily. The pt has been advised to call the office if there are any acute concerns about change in blood pressure readings at home. Abscess/Cellulitis - The patient was instructed in appropriate wound care. The patient was instructed to use the antibiotic ointment as per RX. The patient is to call for any change in symptoms, increase in size of the lesion, increase in pain. increase the novolog to 10 units breakfast, 12 units lunch, 10 units supper . Diabetes Mellitus - Uncontrolled - per recent FSBS reports. I have recommended for the patient to have follow up labs prior to the next office visit. The patient has been instructed to continue with current medications as previously directed, continue with regular FSBS monitoring to assure continued control of diabetes. Pt to call for any acute concerns, complaints, or if the blood glucose readings are starting to become less controlled. I have recommended for the patient to follow more strictly to the diabetic diet as discussed in clinic to allow for greater blood glucose control. increase the novolog to 10 units breakfast, 12 units lunch, 10 units supper Hypertension - well controlled - continue with current medications, continue with no added salt diet. Pt has been encouraged to exercise daily. The pt has been advised to call the office if there are any acute concerns about change in blood pressure readings at home. TMJ - recommended pt to talk to dentist about possible appliance for off loading of tension in jaw. RX for naproxen. . Diabetes Mellitus - controlled - per recent FSBS reports. I have recommended for the patient to have follow up labs prior to the next office visit. The patient has been instructed to continue with current medications as previously directed, continue with regular FSBS monitoring to assure continued control of diabetes. Pt to call for any acute concerns, complaints, or if the blood glucose readings are starting to become less controlled. Hypertension - well controlled - continue with current medications, continue with no added salt diet. Pt has been encouraged to exercise daily. The pt has been advised to call the office if there are any acute concerns about change in blood pressure readings at home. BPH - start avodart glucosamine and chondroitin over the counter supplement you can take for joint lubrication VOLTAREN - the gel that is a NONSTEROIDAL antiinflammatory - you can use this on your back . Diabetes Mellitus - Uncontrolled - per recent FSBS reports. I have recommended for the patient to have follow up labs prior to the next office visit. The patient has been instructed to continue with current medications as previously directed, continue with regular FSBS monitoring to assure continued control of diabetes. Pt to call for any acute concerns, complaints, or if the blood glucose readings are starting to become less controlled. I have recommended for the patient to follow more strictly to the diabetic diet as discussed in clinic to allow for greater blood glucose control. But pt has had significantly improved control of his blood glucose with significant weight loss in the past few months. Hypertension - well controlled - continue with current medications, continue with no added salt diet. Pt has been encouraged to exercise daily. The pt has been advised to call the office if there are any acute concerns about change in blood pressure readings at home. Low back pain- the patient was instructed in appropriate posture, need for weight loss to alleviate abdominal obesity that is worsening the patient's back pain.. The pt is to use prn antiinflammatories to manage acute pain. The patient is to call the office if the pain is worsening or does not improve. . left index finger irritated actinic keratosis removed actinic keratosis removed from dorsum of hand as well and in web of the 4th digit . Arthritis- occasionally uncontrolled symptoms- recommend pt to take antiinflammatory as directed for pain control. Use tylenol for break through pain symptoms. xray left forearm . Left forearm pain-use voltaren gel as needed-xray forearm for further evaluation UA negative-patient instructed to increase po fluids-call if symptoms do not resolve . Diabetes Mellitus - controlled - per recent FSBS reports. I have recommended for the patient to have follow up labs prior to the next office visit. The patient has been instructed to continue with current medications as previously directed, continue with regular FSBS monitoring to assure continued control of diabetes. Pt to call for any acute concerns, complaints, or if the blood glucose readings are starting to become less controlled. Back pain - improved, continued to encourage pt to loose weight and exercise as this will help to improve his back muscle strength and thus help to decrease his back pain. . Mild Cognitive Impairment - discussed with pt and family the diagnosis, pt is not yet in category of dementia, but is in danger of approaching that level of memory loss. Recommended pt to have his CPAP checked as he may have need of the CPAP setting changed. Nightmares - recommended pt to call if symptoms do not improve with adjustments of his CPAP settings. . Sacroilitis-right hip pain-sciatica - back exercises discussed with the patient, pt to continue with antiinflammatories. Pt is to call if the symptoms do not improve or if they worsen. Kenalog injection today in the office for acute symtpoms. joint juice, joint ease, glucosamine and chondroiton - for joint pain. referral to Dr. Fine. Hypertension - well controlled - continue with current medications, continue with no added salt diet. Pt has been encouraged to exercise daily. The pt has been advised to call the office if there are any acute concerns about change in blood pressure readings at home. Diabetes Mellitus - Uncontrolled - per recent FSBS reports. I have recommended for the patient to have follow up labs prior to the next office visit. The patient has been instructed to continue with current medications as previously directed, continue with regular FSBS monitoring to assure continued control of diabetes. Pt to call for any acute concerns, complaints, or if the blood glucose readings are starting to become less controlled. I have recommended for the patient to follow more strictly to the diabetic diet as discussed in clinic to allow for greater blood glucose control. Pt has been having poorly controlled dietary intake over the holiday season - he has not been as physically active over the holiday either. Pt is to bring in his FSBS in a few months. Morbid Obesity - pt is aware of the need to exercise and continue to work on weight loss. Hand pain - specifically right tumb pain - recommended referral to Dr. Fine at [facility] of the [address] [place] [address]. . Hypertension - well controlled - continue with current medications, continue with no added salt diet. Pt has been encouraged to exercise daily. The pt has been advised to call the office if there are any acute concerns about change in blood pressure readings at home. Diabetes Mellitus - controlled - per recent FSBS reports. I have recommended for the patient to have follow up labs prior to the next office visit. The patient has been instructed to continue with current medications as previously directed, continue with regular FSBS monitoring to assure continued control of diabetes. Pt to call for any acute concerns, complaints, or if the blood glucose readings are starting to become less controlled. Essential tremor - supportive care - discussed dx with the patient - he is not a candidate for treatment - he does not have Parkinson's disease. . Hypertension - well controlled - continue with current medications, continue with no added salt diet. Pt has been encouraged to exercise daily. The pt has been advised to call the office if there are any acute concerns about change in blood pressure readings at home. Diabetes Mellitus - controlled - per recent FSBS reports. I have recommended for the patient to have follow up labs prior to the next office visit. The patient has been instructed to continue with current medications as previously directed, continue with regular FSBS monitoring to assure continued control of diabetes. Pt to call for any acute concerns, complaints, or if the blood glucose readings are starting to become less controlled. Essential tremor - supportive care - discussed dx with the patient - he is not a candidate for treatment - he does not have Parkinson's disease. . Hypertension - well controlled - continue with current medications, continue with no added salt diet. Pt has been encouraged to exercise daily. The pt has been advised to call the office if there are any acute concerns about change in blood pressure readings at home. Diabetes Mellitus - controlled - per recent FSBS reports. I have recommended for the patient to have follow up labs prior to the next office visit. The patient has been instructed to continue with current medications as previously directed, continue with regular FSBS monitoring to assure continued control of diabetes. Pt to call for any acute concerns, complaints, or if the blood glucose readings are starting to become less controlled. Essential tremor - supportive care - discussed dx with the patient - he is not a candidate for treatment - he does not have Parkinson's disease. . Joint Injection - Pt was given post - injection instructions. The pt has been advised to use antiinflammatories post injection today, ice to the injected site, call if redness, warmth, or increased pain occurs at the site of injection. DM-fairly well controlled-instructed patient to monitor closely for the next few days as the injection may cause a slight elevation in blood sugars. Otherwise, blood sugars . Hypertension - well controlled - continue with current medications, continue with no added salt diet. Pt has been encouraged to exercise daily. The pt has been advised to call the office if there are any acute concerns about change in blood pressure readings at home. Diabetes Mellitus - controlled - per recent FSBS reports. I have recommended for the patient to have follow up labs prior to the next office visit. The patient has been instructed to continue with current medications as previously directed, continue with regular FSBS monitoring to assure continued control of diabetes. Pt to call for any acute concerns, complaints, or if the blood glucose readings are starting to become less controlled. Essential tremor - supportive care - discussed dx with the patient - he is not a candidate for treatment - he does not have Parkinson's disease. . Hypertension - well controlled - continue with current medications, continue with no added salt diet. Pt has been encouraged to exercise daily. The pt has been advised to call the office if there are any acute concerns about change in blood pressure readings at home. Diabetes Mellitus - controlled - per recent FSBS reports. I have recommended for the patient to have follow up labs prior to the next office visit. The patient has been instructed to continue with current medications as previously directed, continue with regular FSBS monitoring to assure continued control of diabetes. Pt to call for any acute concerns, complaints, or if the blood glucose readings are starting to become less controlled. Essential tremor - supportive care - discussed dx with the patient - he is not a candidate for treatment - he does not have Parkinson's disease. 5 units of insulin at Breakfast, 8 units at lunch and 5 units at supper . Diabetes Mellitus - Uncontrolled - per recent FSBS reports. I have recommended for the patient to have follow up labs prior to the next office visit. The patient has been instructed to continue with current medications as previously directed, continue with regular FSBS monitoring to assure continued control of diabetes. Pt to call for any acute concerns, complaints, or if the blood glucose readings are starting to become less controlled. I have recommended for the patient to follow more strictly to the diabetic diet as discussed in clinic to allow for greater blood glucose control. Hypertension - well controlled - continue with current medications, continue with no added salt diet. Pt has been encouraged to exercise daily. The pt has been advised to call the office if there are any acute concerns about change in blood pressure readings at home. . Hypertension - well controlled - continue with current medications, continue with no added salt diet. Pt has been encouraged to exercise daily. The pt has been advised to call the office if there are any acute concerns about change in blood pressure readings at home. Diabetes Mellitus - controlled - per recent FSBS reports. I have recommended for the patient to have follow up labs prior to the next office visit. The patient has been instructed to continue with current medications as previously directed, continue with regular FSBS monitoring to assure continued control of diabetes. Pt to call for any acute concerns, complaints, or if the blood glucose readings are starting to become less controlled. Essential tremor - supportive care - discussed dx with the patient - he is not a candidate for treatment - he does not have Parkinson's disease. LEVEMIR - ask insurance how much this will cost you senior care decrease toujeo to 40 units daily increase novolin to 8units in the morning, 10 units at lunch and 8 units at supper . Diabetes Mellitus - Uncontrolled - per recent FSBS reports. I have recommended for the patient to have follow up labs prior to the next office visit. The patient has been instructed to continue with current medications as previously directed, continue with regular FSBS monitoring to assure continued control of diabetes. Pt to call for any acute concerns, complaints, or if the blood glucose readings are starting to become less controlled. I have recommended for the patient to follow more strictly to the diabetic diet as discussed in clinic to allow for greater blood glucose control. LEVEMIR - ask insurance how much this will cost you senior care decrease toujeo to 40 units daily increase novolin to 8units in the morning, 10 units at lunch and 8 units at supper . Diabetes Mellitus - Uncontrolled - per recent FSBS reports. I have recommended for the patient to have follow up labs prior to the next office visit. The patient has been instructed to continue with current medications as previously directed, continue with regular FSBS monitoring to assure continued control of diabetes. Pt to call for any acute concerns, complaints, or if the blood glucose readings are starting to become less controlled. I have recommended for the patient to follow more strictly to the diabetic diet as discussed in clinic to allow for greater blood glucose control. Diabetic shoes recommended- paperwork filled out - he will need wide, extra depth shoes with inserts to prevent callus and protect feet. Hypertension - well controlled - continue with current medications, continue with no added salt diet. Pt has been encouraged to exercise daily. The pt has been advised to call the office if there are any acute concerns about change in blood pressure readings at home. Obesity - continue with dietary restriction. . Hypertension - well controlled - continue with current medications, continue with no added salt diet. Pt has been encouraged to exercise daily. The pt has been advised to call the office if there are any acute concerns about change in blood pressure readings at home. Diabetes Mellitus - Uncontrolled - per recent FSBS reports. I have recommended for the patient to have follow up labs prior to the next office visit. The patient has been instructed to continue with current medications as previously directed, continue with regular FSBS monitoring to assure continued control of diabetes. Pt to call for any acute concerns, complaints, or if the blood glucose readings are starting to become less controlled. I have recommended for the patient to follow more strictly to the diabetic diet as discussed in clinic to allow for greater blood glucose control. Morbid Obesity - chronic issue with this patient. The pt has been counseled about diet changes, calorie restriction, and need to exercise. Pt will RTC in one month for weight check. regular insulin 5 units with meals increase your toujeo to 60 units daily. check blood glucose before your meals and at bedtime . Diabetes Mellitus - Uncontrolled - per recent FSBS reports. I have recommended for the patient to have follow up labs prior to the next office visit. The patient has been instructed to continue with current medications as previously directed, continue with regular FSBS monitoring to assure continued control of diabetes. Pt to call for any acute concerns, complaints, or if the blood glucose readings are starting to become less controlled. I have recommended for the patient to follow more strictly to the diabetic diet as discussed in clinic to allow for greater blood glucose control. Morbid obesity and back pain - discussed need to start on weight loss medication - rx for belviq . Diabetes Mellitus - Uncontrolled - per recent FSBS reports. I have recommended for the patient to have follow up labs prior to the next office visit. The patient has been instructed to continue with current medications as previously directed, continue with regular FSBS monitoring to assure continued control of diabetes. Pt to call for any acute concerns, complaints, or if the blood glucose readings are starting to become less controlled. I have recommended for the patient to follow more strictly to the diabetic diet as discussed in clinic to allow for greater blood glucose control. . Medicare Exam - today we discussed the patients past history, immunizations, preventative exams/evaluations - colonoscopy, fecal occult blood testing, routine labs for renal function, glucose, cholesterol, osteoporosis evaluations, cardiovascular testing and cancer screenings. We have also discussed mental health and the signs/symptoms of depression. The patient was advised of home safety evaluations and the need to make sure that as the aging process continues, we need to be aware of different ways to make the home a safer place to reside. The patient has also been counseled that exercise is necessary - and of utmost importance as we age to help decrease fall risk and to maintain independece in the home. Today we discussed the need for the patient to create paperwork for Advanced directives as well as for the patient to provide this office with a copy of her DOPA paperwork for health care surrogate. Greater Trochanteric Bursitis - Joint Injection - Pt was given post - injection instructions. The pt has been advised to use anti-inflammatories post injection today, ice to the injected site, call if redness, warmth, or increased pain occurs at the site of injection. pt to do exercises as directed - stretching, anti-inflammatories to be started after 24 hours, and pt to use heat to the affected sites, pt to call if not improving. . Esophageal Reflux - the patient has been counseled against excessive intake of caffeine, spicy foods, peppermint, and cinnamon - all of which can exacerbate esophageal reflux. The patient is to take medications as prescribed and call the office if the symptoms are not improving. Dysphagia - recommended pt have EGD - will get with us to determine who he will see for an EGD. Diabetes Mellitus - controlled - per recent FSBS reports. I have recommended for the patient to have follow up labs prior to the next office visit. The patient has been instructed to continue with current medications as previously directed, continue with regular FSBS monitoring to assure continued control of diabetes. Pt to call for any acute concerns, complaints, or if the blood glucose readings are starting to become less controlled. Hypertension - well controlled - continue with current medications, continue with no added salt diet. Pt has been encouraged to exercise daily. The pt has been advised to call the office if there are any acute concerns about change in blood pressure readings at home. . Enlarged prostate with decreased urine flow - recommended that the patient start on tamsulosin 0.4mg daily - will need to start him on this in about 2-3 weeks. Check PSA in 2-3 weeks. PREVNAR 13 REFERRAL FOR SCREENING COLONOSCOPY . Medicare Exam - today we discussed the patients past history, immunizations, preventative exams/evaluations - colonoscopy, fecal occult blood testing, routine labs for renal function, glucose, cholesterol, osteoporosis evaluations, cardiovascular testing and cancer screenings. We have also discussed mental health and the signs/symptoms of depression. The patient was advised of home safety evaluat ions and the need to make sure that as the aging process continues, we need to be aware of different ways to make the home a safer place to reside. The patient has also been counseled that exercise is necessary - and of utmost importance as we age to help decrease fall risk and to maintain independence in the home. Today we discussed the need for the patient to create paperwork for Advanced directives as well as for the patient to provide this office with a copy of her DOPA paperwork for health care surrogate. PREVNAR 13 REFERRAL FOR SCREENING COLONOSCOPY . Medicare Exam - today we discussed the patients past history, immunizations, preventative exams/evaluations - colonoscopy, fecal occult blood testing, routine labs for renal function, glucose, cholesterol, osteoporosis evaluations, cardiovascular testing and cancer screenings. We have also discussed mental health and the signs/symptoms of depression. The patient was advised of home safety evaluat ions and the need to make sure that as the aging process continues, we need to be aware of different ways to make the home a safer place to reside. The patient has also been counseled that exercise is necessary - and of utmost importance as we age to help decrease fall risk and to maintain independence in the home. Today we discussed the need for the patient to create paperwork for Advanced directives as well as for the patient to provide this office with a copy of her DOPA paperwork for health care surrogate. Increase to 22 units of lantus twice daily. . Diabetes Mellitus - Uncontrolled - per recent FSBS reports. I have recommended for the patient to have follow up labs prior to the next office visit. The patient has been instructed to continue with current medications as previously directed, continue with regular FSBS monitoring to assure continued control of diabetes. Pt to call for any acute concerns, complaints, or if the blood glucose readings are starting to become less controlled. I have recommended for the patient to follow more strictly to the diabetic diet as discussed in clinic to allow for greater blood glucose control. Pt in need of diabetic foot eval and shoes. increasing the lantus to 30 units at bedtime, take bannana and orange juice and multivitamin at bedtime.. Diabetes Mellitus - Uncontrolled - per recent FSBS reports. I have recommended for the patient to have follow up labs prior to the next office visit. The patient has been instructed to continue with current medications as previously directed, continue with regular FSBS monitoring to assure continued control of diabetes. Pt to call for any acute concerns, complaints, or if the blood glucose readings are starting to become less controlled. I have recommended for the patient to follow more strictly to the diabetic diet as discussed in clinic to allow for greater blood glucose control. increasing the lantus to 30 units at bedtime, take bannana and orange juice and multivitamin at bedtime. Bert is to increase his Lantus to 25 units two times a day. . Diabetes Mellitus - Uncontrolled - per recent FSBS reports. I have recommended for the patient to have follow up labs prior to the next office visit. The patient has been instructed to continue with current medications as previously directed, continue with regular FSBS monitoring to assure continued control of diabetes. Pt to call for any acute concerns, complaints, or if the blood glucose readings are starting to become less controlled. I have recommended for the patient to follow more strictly to the diabetic diet as discussed in clinic to allow for greater blood glucose control. HTN - controlled - no change in medication dose at this time. Pt has an appt for Dr. Colon june 09. Dr. Killian - pt to see this Opthamologist in [place] - May 25. BRING IN THE GLUCOMETER TO THE 7 WEEK FOLLOW UP APPOINTMENT.. Diabetes Mellitus - Uncontrolled - per recent FSBS reports. I have recommended for the patient to have follow up labs prior to the next office visit. The patient has been instructed to continue with current medications as previously directed, continue with regular FSBS monitoring to assure continued control of diabetes. Pt to call for any acute concerns, complaints, or if the blood glucose readings are starting to become less controlled. I have recommended for the patient to follow more strictly to the diabetic diet as discussed in clinic to allow for greater blood glucose control. NO CHANGE IN VICTOZA DOSE.. I HAVE RECCOMMENDED WEIGHT LOSS AND EXERCISE TO AUGMENT DIABETIC CONTROL. Hypertension - uncontrolled - the patient's medications have been modified as documented in the visit note. The patient has been counseled to cut back on salt in diet for a no added salt diet, low fat diet, start an exercise program with low weight bearing exercises and higher aerobic activity for heart health. The patient is to check blood pressure readings as an outpatient and either fax, call, or email the readings to the office next week for practicioner to review. The pt is to call for acute concerns. INCREASE AVAPRO TO 300 mg daily. . Diabetes Mellitus - controlled - per recent FSBS reports. I have recommended for the patient to have follow up labs prior to the next office visit. The patient has been instructed to continue with current medications as previously directed, continue with regular FSBS monitoring to assure continued control of diabetes. Pt to call for any acute concerns, complaints, or if the blood glucose readings are starting to become less controlled. Hypertension - uncontrolled - the patient's medications have been modified as documented in the visit note. The patient has been counseled to cut back on salt in diet for a no added salt diet, low fat diet, start an exercise program with low weight bearing exercises and higher aerobic activity for heart health. The patient is to check blood pressure readings as an outpatient and either fax, call, or email the readings to the office next week for practicioner to review. The pt is to call for acute concerns. flat feet - recommended better arch support. [facility] - Dr. Jhon Preciado . Hypertension - well controlled - continue with current medications, continue with no added salt diet. Pt has been encouraged to exercise daily. The pt has been advised to call the office if there are any acute concerns about change in blood pressure readings at home. Diabetes Mellitus - significantly improved control - per recent FSBS reports. I have recommended for the patient to have follow up labs prior to the next office visit. The patient has been instructed to continue with current medications as previously directed, continue with regular FSBS monitoring to assure continued control of diabetes. Pt to call for any acute concerns, complaints, or if the blood glucose readings are starting to become less controlled. Hyperlipidemia - pt has been counseled about appropriate diet, exercise, and need for low fat food choices. I have discussed the need for the patient to take medications as prescribed. If the patient has negative side effects from the medication, they are to CALL the office and not abruptly discontinue the medication without discussion with a practitioner in the office. We will check labs in 3-6 months for follow up on the patient's chronic medical problem and to assure normal liver response to medications. . Diabetes mellitus - has improved so drastically with Bert's weight loss that he has now been able to taper off of the insulin - Continue with metformin at current dose. Hypertension - well controlled - continue with current medications, continue with no added salt diet. Pt has been encouraged to exercise daily. The pt has been advised to call the office if there are any acute concerns about change in blood pressure readings at home. Hyperlipidemia - pt has been counseled about appropriate diet, exercise, and need for low fat food choices. I have discussed the need for the patient to take medications as prescribed. If the patient has negative side effects from the medication, they are to CALL the office and not abruptly discontinue the medication without discussion with a practitioner in the office. We will check labs in 3-6 months for follow up on the patient's chronic medical problem and to assure normal liver response to medications. Morbid obesity - has improved with his strict diet - continue with dietary restrictions. . Diabetes Mellitus - Uncontrolled - per recent FSBS reports. I have recommended for the patient to have follow up labs prior to the next office visit. The patient has been instructed to continue with current medications as previously directed, continue with regular FSBS monitoring to assure continued control of diabetes. Pt to call for any acute concerns, complaints, or if the blood glucose readings are starting to become less controlled. I have recommended for the patient to follow more strictly to the diabetic diet as discussed in clinic to allow for greater blood glucose control. PT TO STOP BYETTA AND START ON INSULIN LANTUS 10 units subcutaneously once daily at night. . Hypertension - well controlled - continue with current medications, continue with no added salt diet. Pt has been encouraged to exercise daily. The pt has been advised to call the office if there are any acute concerns about change in blood pressure readings at home. Diabetes Mellitus - controlled - per recent FSBS reports. I have recommended for the patient to have follow up labs prior to the next office visit. The patient has been instructed to continue with current medications as previously directed, continue with regular FSBS monitoring to assure continued control of diabetes. Pt to call for any acute concerns, complaints, or if the blood glucose readings are starting to become less controlled. Essential tremor - supportive care - discussed dx with the patient - he is not a candidate for treatment - he does not have Parkinson's disease. . Ears clear today-no need for further treatment or ear lavage today
[2019-01-23 14:52] LABS: BASOPHILS % (AUTO) 0 % (0-10); EOSINOPHILS % (AUTO) 0 % (0-10); HEMATOCRIT 35 % (40-54); HEMOGLOBIN 11.8 G/DL (13.3-17.7); LYMPHOCYTES # (AUTO) 0.3 X 10^3 (1.0-4.0); LYMPHOCYTES % (AUTO) 2 % (12-44); MEAN CORPUSCULAR HEMOGLOBIN 31 PG (25-34); MEAN CORPUSCULAR HGB CONC 34 G/DL (32-36); MEAN CORPUSCULAR VOLUME 90 FL (80-99); MEAN PLATELET VOLUME 10.4 FL (7.4-10.4); MONOCYTES # (AUTO) 1.4 X 10^3 (0.0-1.0); MONOCYTES % (AUTO) 10 % (0-12); NEUTROPHILS # (AUTO) 12.4 X 10^3 (1.8-7.8); NEUTROPHILS % (AUTO) 88 % (42-75); PLATELET COUNT 274 10^3/uL (130-400); RED CELL DISTRIBUTION WIDTH 13.9 % (10.0-14.5)
--- OUTSIDE RECORDS SUMMARY | 2019-01-23 14:56 | XMS REPORT | CCD ---
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 Role Phone PP Unavailable CCM Unavailable Summary Purpose Interface Exchange Insurance Providers Payer name Policy type / Coverage type Covered green party ID Effective Begin Date Effective End Date WPS Medicare Part B Medicare Part B [id number] Unknown [facility] Medicare Part B [id number] Unknown Family history Nephew Diagnosis Age At [...] Unknown Retired 07/18/[address]: 764017896 Never smoker 07/18/[address]: 822209822 Never drinks alcohol 07/18/2011 Has the patient [...] ICD-9: 401.1 ICD-10: I10 Active 12/05/2016 Unknown Mixed hyperlipidemia ICD- 9: 272.2 ICD-10: E78.2 Active 11/18/2017 Unknown Type 2 diabetes mellitus without complications ICD-9: 250.00 ICD-10: E11.9 Active 03/28/2017 Unknown Essential (primary) hypertension ICD-9: 401.9 ICD-10: [...] ICD-9: 785.1 ICD-10: R00.2 Active 04/03/2017 Unknown Morbid (severe) obesity due to excess calories ICD-9: 278.01 ICD-10: E66.01 Active 10/20/2015 Unknown Pain in right hip ICD-9: 719.45 [...] hypertension ICD-9: 401.1 ICD-10: I10 12/05/2016 Active Mixed hyperlipidemia ICD- 9: 272.2 ICD-10: E78.2 11/18/2017 Active Type 2 diabetes mellitus without complications ICD-9: 250.00 ICD-10: E11.9 03/28/2017 Active Essential (primary) hypertension ICD-9: 401.9 ICD-10: [...] Palpitations ICD-9: 785.1 ICD-10: R00.2 04/03/2017 Active Morbid (severe) obesity due to excess calories ICD-9: 278.01 ICD-10: E66.01 10/20/2015 Active Pain in right hip ICD-9: 719.45 [...] Start Date Stop Date Status Fill Instructions finasteride 1 mg tablet RxNorm: 175629 1 Tablet(s) PO daily 10/28/2018 01/20/2020 Active irbesartan 300 mg tablet RxNorm: 695764 1 Tablet(s) PO daily 10/28/2018 01/20/2020 Active lovastatin 20 mg tablet RxNorm: 665759 1 Tablet(s) PO QHS 10/28/2018 01/20/2020 Active metformin 1,000 mg tablet RxNorm: 642215 1 Tablet(s) PO BID 10/28/2018 01/20/2020 Active Toujeo SoloStar U-300 Insulin 300 unit/mL (1.5 mL) subcutaneous pen RxNorm: 4571842 30 Unit(s) SQ daily 10/09/2018 01/01/2020 Active 90 day supply needle (disp) 31 gauge x 5/16" RxNorm: 1 Miscellaneous TID 02/10/2018 02/04/2019 Active finasteride 1 mg tablet RxNorm: 877153 1 Tablet(s) PO daily 12/25/2017 12/24/2017 Inactive D/C dutasteride finasteride 1 mg tablet RxNorm: 940439 1 Tablet(s) PO daily 12/25/2017 10/27/2018 Inactive D/C dutasteride Novolin R Regular U-100 Insulin 100 unit/mL injection solution RxNorm: 370324 10 Unit(s) Inj QAM 12 units at lunch and 10 units at supper 11/25/2017 09/22/2018 Inactive amoxicillin 500 mg capsule RxNorm: 897688 1 Capsule(s) PO QID 11/21/2017 11/30/2017 Inactive naproxen 500 mg tablet RxNorm: 074418 1 Tablet(s) PO BID 11/21/2017 12/04/2017 Inactive Novolin R Regular U-100 Insulin 100 unit/mL injection solution RxNorm: 226690 8 10 Unit(s) Inj QAM 12 units at lunch and 10 units at supper 11/21/2017 11/24/2017 Inactive Insulin Syringe 0.3 mL 29 X 5/16" RxNorm: 1 injection SQ TID 10/01/2017 07/27/2018 Inactive Voltaren 1 % topical gel RxNorm: 178713 4 Gram(s) TOP QID 09/27/2017 12/20/2018 Inactive [SAVINGS FOR NON-COVERED DRUGS -- BIN:[id number], PCN: ASPROD1, Group: XXXXX, ID# XXXXXXX, Questions: . THIS IS NOT INSURANCE.] TeachBoost Blood Glucose System RxNorm: 1 test Miscellaneous QID insulin dependent diabetes 09/27/2017 09/21/2018 Inactive Protonix 40 mg tablet,delayed release RxNorm: 294232 1 Tablet(s) PO daily 09/27/2017 12/20/2018 Inactive Toujeo SoloStar U-300 Insulin 300 unit/mL (1.5 mL) subcutaneous pen RxNorm: 9168507 45 Unit(s) SQ daily 09/27/2017 10/08/2018 Inactive 90 day supply lovastatin 20 mg tablet RxNorm: 089963 1 Tablet(s) PO QHS 09/27/2017 10/27/2018 Inactive Insulin Syringe 0.3 mL 29 X 5/16" RxNorm: 1 injection SQ BID 09/27/2017 09/30/2017 Inactive irbesartan 300 mg tablet RxNorm: 676111 1 Tablet(s) PO daily 09/27/2017 10/27/2018 Inactive Novolin R 100 unit/mL injection solution RxNorm: 908913 8 Unit(s) Inj QAM 10 units at lunch and 8 units at supper 09/27/2017 11/20/2017 Inactive dutasteride 0.5 mg capsule RxNorm: 188745 1 Capsule(s) PO daily 09/27/2017 12/24/2017 Inactive metformin 1,000 mg tablet RxNorm: 763302 1 Tablet(s) PO BID 09/27/2017 10/27/2018 Inactive magnesium oxide 400 mg tablet RxNorm: 302068 1 Tablet(s) PO daily 09/27/2017 12/20/2018 Inactive Voltaren 1 % topical gel RxNorm: 940482 4 Gram(s) TOP QID 07/23/2017 09/26/2017 Inactive [SAVINGS FOR NON-COVERED DRUGS -- BIN:[id number], PCN: ASPROD1, Group: XXXXX, ID# [id number], Questions: . THIS IS NOT INSURANCE.] Bactrim DS 800 mg-160 mg tablet RxNorm: 092187 1 Tablet(s) PO BID 07/02/2017 07/08/2017 Inactive Kenalog 40 mg/mL suspension for injection RxNorm: 9110045 1 Milliliter(s) Inj 06/04/2017 06/04/2017 Inactive Efudex 5 % topical cream RxNorm: 140127 1 TOP BID 12/05/2016 12/14/2016 Inactive Avapro 300 mg tablet RxNorm: 557880 Tablet(s) TAKE 1 TABLET BY MOUTH ONCE DAILY. 09/21/2016 09/15/2017 Inactive Toujeo SoloStar 300 unit/mL (1.5 mL) subcutaneous insulin pen RxNorm: 1594994 45 Unit(s) SQ daily 09/21/2016 09/15/2017 Inactive 90 day supply Novolin R 100 unit/mL injection solution RxNorm: 612936 8 Unit(s) Inj QAM 10 units at lunch and 8 units at supper 09/21/2016 09/15/2017 Inactive metformin 1,000 mg tablet RxNorm: 323279 Tablet(s) TAKE 1 TABLET BY MOUTH TWICE DAILY AFTER MEALS 09/21/2016 09/15/2017 Inactive lovastatin 20 mg tablet RxNorm: 398668 Tablet(s) TAKE ONE TABLET BY MOUTH ONCE DAILY. 09/21/2016 09/15/2017 Inactive dutasteride 0.5 mg capsule RxNorm: 197554 1 Capsule(s) PO daily 09/21/2016 09/15/2017 Inactive Toujeo SoloStar 300 unit/mL (1.5 mL) subcutaneous insulin pen RxNorm: 6736019 45 Unit(s) SQ daily 06/27/2016 09/20/2016 Inactive Kenalog 40 mg/mL suspension for injection RxNorm: 8322317 1 Milliliter(s) Inj 06/21/2016 06/21/2016 Inactive Toujeo SoloStar 300 unit/mL (1.5 mL) subcutaneous insulin pen RxNorm: 2217860 40 Unit(s) SQ daily 05/24/2016 06/26/2016 Inactive Novolin R 100 unit/mL injection solution RxNorm: 670284 8 Unit(s) Inj QAM 10 units at lunch and 8 units at supper 05/24/2016 09/20/2016 Inactive Bactrim DS 800 mg-160 mg tablet RxNorm: 583555 1 Tablet(s) PO BID 10/03/2015 01/31/2016 Inactive dutasteride 0.5 mg capsule RxNorm: 469742 1 Capsule(s) PO daily 09/26/2015 09/19/2016 Inactive dutasteride 0.5 mg capsule RxNorm: 113384 1 Capsule(s) PO daily 09/26/2015 09/25/2015 Inactive Avodart 0.5 mg capsule RxNorm: 213549 1 Capsule(s) PO QPM 09/21/2015 09/25/2015 Inactive Avapro 300 mg tablet RxNorm: 212704 Tablet(s) TAKE 1 TABLET BY MOUTH ONCE DAILY. 09/21/2015 09/14/2016 Inactive Generic For:AVAPRO 300MG 08/26/2015 9:53:42 AM lovastatin 20 mg tablet RxNorm: 840023 1 Tablet(s) TAKE ONE TABLET BY MOUTH ONCE DAILY. 09/21/2015 09/20/2016 Inactive Generic For:*MEVACOR 20MG 10/06/2014 12:16:37 PM Novolin R 100 unit/mL injection solution RxNorm: 251383 5 Unit(s) Inj QAM 8 units at lunch and 5 units at supper 09/21/2015 05/23/2016 Inactive metformin 1,000 mg tablet RxNorm: 270286 Tablet(s) TAKE 1 TABLET BY MOUTH TWICE DAILY AFTER MEALS 09/21/2015 09/20/2016 Inactive Generic For:*GLUCOPHAGE 1000MG 10/18/2014 5:26:11 PM Toujeo SoloStar 300 unit/mL (1.5 mL) subcutaneous insulin pen RxNorm: 7320809 60 Unit(s) SQ daily 09/21/2015 05/23/2016 Inactive 3 month supply DX 250.02 also needs pen needles to use daily dx 250.02 Novolin R 100 unit/mL injection solution RxNorm: 009628 5 Unit(s) Inj QAM 8 units at lunch and 5 units at supper 09/07/2015 09/20/2015 Inactive lovastatin 20 mg tablet RxNorm: 293297 Tablet(s) TAKE ONE TABLET BY MOUTH ONCE DAILY. 09/07/2015 09/20/2015 Inactive Generic For:*MEVACOR 20MG 10/06/2014 12:16:37 PM metformin 1,000 mg tablet RxNorm: 854111 Tablet(s) TAKE 1 TABLET BY MOUTH TWICE DAILY AFTER MEALS 09/07/2015 09/20/2015 Inactive Generic For:*GLUCOPHAGE 1000MG 10/18/2014 5:26:11 PM Toujeo SoloStar 300 unit/mL (1.5 mL) subcutaneous insulin pen RxNorm: 7859308 60 Unit(s) SQ daily 09/07/2015 09/20/2015 Inactive 3 month supply DX 250.02 also needs pen needles to use daily dx 250.02 Avapro 300 mg tablet RxNorm: 361877 TAKE 1 TABLET BY MOUTH ONCE DAILY. 08/26/2015 09/20/2015 Inactive Generic For:AVAPRO 300MG 08/26/2015 9:53:42 AM Avodart 0.5 mg capsule RxNorm: 268671 1 Capsule(s) PO QPM 08/17/2015 09/20/2015 Inactive Novolin R 100 unit/mL injection solution RxNorm: 392128 5 Unit(s) Inj QAM 8 units at lunch and 5 units at supper 08/17/2015 09/06/2015 Inactive Trueresult Blood Glucose System RxNorm: 1 test Miscellaneous QID insulin dependent diabetes 08/17/2015 08/10/2016 Inactive Avodart 0.5 mg capsule RxNorm: 896354 1 Capsule(s) PO QPM 08/14/2015 08/16/2015 Inactive Novolin R 100 unit/mL injection solution RxNorm: 761337 5 Unit(s) Inj TID with meals 07/20/2015 08/16/2015 Inactive Toujeo SoloStar 300 unit/mL (1.5 mL) subcutaneous insulin pen RxNorm: 7428546 60 Unit(s) SQ daily 07/20/2015 09/06/2015 Inactive one month supply DX 250.02 also needs pen needles to use daily dx 250.02 Bactrim DS 800 mg-160 mg tablet RxNorm: 682565 1 Tablet(s) PO BID 05/09/2015 05/15/2015 Inactive Bactrim DS 800 mg-160 mg tablet RxNorm: 103142 1 Tablet(s) PO BID 05/09/2015 05/08/2015 Inactive Bactrim DS 800 mg-160 mg tablet RxNorm: 113595 1 Tablet(s) PO BID 05/09/2015 05/08/2015 Inactive Toujeo SoloStar 300 unit/mL (1.5 mL) subcutaneous insulin pen RxNorm: 9818292 45u qdx3 days then 50u qdx 5 days then if fsbs >180 55u qd Unit(s) SQ daily 05/02/2015 07/19/2015 Inactive one month supply DX 250.02 also needs pen needles to use daily dx 250.02 Toujeo SoloStar 300 unit/mL (1.5 mL) subcutaneous insulin pen RxNorm: 7244829 45u qdx3 days then 50u qdx 5 days then if fsbs >180 55u qd Unit(s) SQ daily 05/02/2015 05/01/2015 Inactive one month supply DX 250.02 also needs pen needles to use daily dx 250.02 Belviq 10 mg tablet RxNorm: 6586565 1 Tablet(s) PO BID 04/20/2015 09/20/2015 Inactive Insulin Syringe 0.3 mL 29 X 5/16" RxNorm: 1 Miscellaneous BID 03/24/2015 04/16/2016 Inactive Lantus 100 unit/mL subcutaneous solution RxNorm: 355330 30 Unit(s) SQ BID 02/14/2015 05/01/2015 Inactive pt not ready for refill yet, when he is, please fill 25units bid Lantus 100 unit/mL subcutaneous solution RxNorm: 986205 28 Unit(s) SQ BID 11/11/2014 02/13/2015 Inactive pt not ready for refill yet, when he is, please fill 25units bid [SAVINGS FOR NON-COVERED DRUGS -- BIN:[id number], PCN: ASPROD1, Group: XXXXX, ID# [id number], Questions: . THIS IS NOT INSURANCE.] Voltaren 1 % topical gel RxNorm: 924582 4 Gram(s) TOP QID 11/11/2014 03/10/2015 Inactive [SAVINGS FOR NON-COVERED DRUGS -- BIN:045614, PCN: ASPROD1, Group: XXXXX, ID# [id number], Questions: . THIS IS NOT INSURANCE.] metformin 1,000 mg tablet RxNorm: 653326 TAKE 1 TABLET BY MOUTH TWICE DAILY AFTER MEALS 10/19/2014 09/06/2015 Inactive Generic For:*GLUCOPHAGE 1000MG 10/18/2014 5:26:11 PM metformin 1,000 mg tablet RxNorm: 523018 Tablet(s) TAKE 1 TABLET BY MOUTH TWICE DAILY AFTER MEALS 10/18/2014 10/18/2014 Inactive Generic For:*GLUCOPHAGE 1000MG 04/16/2014 9:02:30 AM lovastatin 20 mg tablet RxNorm: 993517 TAKE ONE TABLET BY MOUTH ONCE DAILY. 10/07/2014 09/06/2015 Inactive Generic For:*MEVACOR 20MG 10/06/2014 12:16:37 PM lovastatin 20 mg tablet RxNorm: 418949 1 Tablet(s) PO daily TAKE ONE (1) TABLET BY MOUTH DAILY 10/06/2014 10/06/2014 Inactive Generic For:MEVACOR 20 MG TABLET Generic For:MEVACOR 20 MG TABLET 08/14/2013 8:06:44 AM Carafate 1 gram tablet RxNorm: 903219 1 Tablet(s) PO QID dissolve in 10mL of fluid, drink liquid carafate four times daily before meals and before bed 10/04/2014 11/10/2014 Inactive may dispense generic Avapro 300 mg tablet RxNorm: 398141 TAKE 1 TABLET BY MOUTH ONCE DAILY. 08/26/2014 08/20/2015 Inactive Generic For:AVAPRO 300MG 08/26/2014 9:03:29 AM Avodart 0.5 mg capsule RxNorm: 652991 1 Capsule(s) PO QPM 08/02/2014 07/27/2015 Inactive meloxicam 15 mg tablet RxNorm: 595679 TAKE 1 TABLET BY MOUTH ONCE DAILY. 06/11/2014 11/10/2014 Inactive Generic For:MOBIC 15MG 06/11/2014 9:05:37 AM Kenalog 40 mg/mL suspension for injection RxNorm: 0269446 1 Milliliter(s) Inj 05/04/2014 05/04/2014 Inactive Lantus Solostar 100 unit/mL (3 mL) subcutaneous insulin pen RxNorm: 657305 25 Unit(s) SQ BID 04/19/2014 02/13/2015 Inactive Lantus 100 unit/mL subcutaneous solution RxNorm: 850309 25 Unit(s) SQ BID break up lantus to two shots daily of 22 units each shot 04/19/2014 11/10/2014 Inactive pt not ready for refill yet, when he is, please fill 25units bid metformin 1,000 mg tablet RxNorm: 968973 TAKE 1 TABLET BY MOUTH TWICE DAILY AFTER MEALS 04/16/2014 10/12/2014 Inactive Generic For:*GLUCOPHAGE 1000MG 04/16/2014 9:02:30 AM Insulin Syringe 0.3 mL 29 X 5/16" RxNorm: 1 Miscellaneous BID 03/15/2014 03/23/2015 Inactive Insulin Syringe 0.3 mL 29 X 5/16" RxNorm: 1 Miscellaneous BID 03/15/2014 03/14/2014 Inactive meloxicam 15 mg tablet RxNorm: 809962 TAKE 1 TABLET EVERY DAY 03/15/2014 06/10/2014 Inactive Generic For:MOBIC 15MG 03/15/2014 9:06:35 AM Lantus 100 unit/mL subcutaneous solution RxNorm: 795019 22 Unit(s) SQ BID break up lantus to two shots daily of 22 units each shot 01/14/2014 04/18/2014 Inactive metformin 1,000 mg tablet RxNorm: 470686 Tablet(s) PO TAKE 1 TABLET BY MOUTH TWICE DAILY AFTER MEALS 01/07/2014 04/15/2014 Inactive Generic For:*GLUCOPHAGE 1000MG Lantus 100 unit/mL subcutaneous solution RxNorm: 621601 25 Unit(s) SQ BID break up lantus to two shots daily of 25 units each shot 09/30/2013 09/29/2013 Inactive Lantus 100 unit/mL subcutaneous solution RxNorm: 985780 25 Unit(s) SQ BID break up lantus to two shots daily of 25 units each shot 09/30/2013 01/13/2014 Inactive metformin 1,000 mg tablet RxNorm: 982082 1 Tablet(s) PO BID TAKE 1 TABLET BY MOUTH TWICE DAILY AFTER MEALS 09/30/2013 12/28/2013 Inactive Generic For:GLUCOPHAGE 1000MG TAB Generic For:GLUCOPHAGE 1000MG TAB Avapro 300 mg tablet RxNorm: 073698 Tablet(s) PO TAKE ONE (1) TABLET BY MOUTH DAILY 08/28/2013 08/25/2014 Inactive Generic For:*AVAPRO 300MG TAB Generic For:*AVAPRO 300MG TAB 08/28/2013 8:53:42 AM lovastatin 20 mg tablet RxNorm: 899170 Tablet(s) PO TAKE ONE (1) TABLET BY MOUTH DAILY 08/14/2013 10/05/2014 Inactive Generic For:MEVACOR 20 MG TABLET Generic For:MEVACOR 20 MG TABLET 08/14/2013 8:06:44 AM metformin 1,000 mg tablet RxNorm: 534770 Tablet(s) PO TAKE 1 TABLET BY MOUTH TWICE DAILY AFTER MEALS 07/16/2013 09/29/2013 Inactive Generic For:GLUCOPHAGE 1000MG TAB Generic For:GLUCOPHAGE 1000MG TAB Influenza Virus Vaccine 0.5 mL RxNorm: IM 07/01/2013 07/01/2013 Inactive Contour Test Strips RxNorm: strip miscellaneous USE TO TEST BLOOD SUGAR THREE TIMES DAILY DIRECTED 06/29/2013 03/14/2014 Inactive metformin 1,000 mg tablet RxNorm: 221216 Tablet(s) PO TAKE 1 TABLET BY MOUTH TWICE DAILY AFTER MEALS 04/14/2013 07/15/2013 Inactive Generic For:GLUCOPHAGE 1000MG TAB meloxicam 15 mg tablet RxNorm: 518688 Tablet(s) PO TAKE ONE TABLET BY MOUTH EVERY DAY 03/21/2013 03/14/2014 Inactive Generic For:MOBIC 15MG TAB 03/19/2013 8:10:41 AM Lantus 100 unit/mL subcutaneous solution RxNorm: 749922 25 Unit(s) SQ BID break up lantus to two shots daily of 25 units each shot 03/04/2013 06/01/2013 Inactive Insulin Syringe 0.3 mL 29 X 5/16" RxNorm: 1 Unit Dose Miscellaneous BID 02/04/2013 09/01/2013 Inactive Lantus 100 unit/mL Sub-Q RxNorm: 522653 20 Unit(s) SQ BID break up lantus to two shots daily of 20units each shot 02/04/2013 03/03/2013 Inactive topiramate 25 mg tablet RxNorm: 304093 1 Tablet(s) PO daily 02/04/2013 04/08/2013 Inactive metformin 1,000 mg tablet RxNorm: 215120 Tablet(s) PO TAKE 1 TABLET BY MOUTH TWICE DAILY AFTER MEALS 01/15/2013 04/13/2013 Inactive Generic For:GLUCOPHAGE 1000MG TAB Lantus 100 unit/mL Sub-Q RxNorm: 439417 30 Unit(s) SQ QPM 12/03/2012 01/01/2013 Inactive Kenalog 40 mg/mL Susp for Injection RxNorm: 4938690 1 Milliliter(s) Inj 09/25/2012 09/25/2012 Inactive Lantus 100 unit/mL Sub-Q RxNorm: 680432 25 Unit(s) SQ QPM 09/12/2012 10/11/2012 Inactive Avapro 300 mg tablet RxNorm: 524100 Tablet(s) PO TAKE ONE (1) TABLET BY MOUTH DAILY 09/03/2012 09/02/2012 Inactive Generic For:AVAPRO 300MG TAB Avapro 300 mg tablet RxNorm: 948695 Tablet(s) PO TAKE ONE (1) TABLET BY MOUTH DAILY 09/03/2012 08/27/2013 Inactive Generic For:AVAPRO 300MG TAB Lantus 100 unit/mL Sub-Q RxNorm: 051080 20 Unit(s) SQ QPM 08/27/2012 09/11/2012 Inactive Avapro 300 mg tablet RxNorm: 752742 1 Tablet(s) PO daily 08/27/2012 09/02/2012 Inactive Lantus 100 unit/mL Sub-Q RxNorm: 574759 15 Unit(s) SQ QPM 08/07/2012 08/26/2012 Inactive metformin 1,000 mg tablet RxNorm: 265559 Tablet(s) PO 07/18/2012 01/14/2013 Inactive TAKE 1 TABLET BY MOUTH TWICE DAILY AFTER MEALS;Generic For:GLUCOPHAGE 1,000 MG TABLET Lantus 100 unit/mL Sub-Q RxNorm: 555656 13 Unit(s) SQ QPM 06/25/2012 07/24/2012 Inactive lovastatin 20 mg tablet RxNorm: 449933 Tablet(s) PO 06/20/2012 07/14/2013 Inactive TAKE 2 TABLETS BY MOUTH AT BEDTIME;Generic For:MEVACOR 20 MG TABLET Pneumovax 23 25 mcg/0.5 mL Injection RxNorm: 259886 Milliliter(s) Inj 06/04/2012 06/04/2012 Inactive Influenza Virus Vaccine 0.5 mL RxNorm: IM 06/04/2012 06/04/2012 Inactive Insulin Syringe 0.3 mL 29 X 5/16" RxNorm: 1 Unit Dose Miscellaneous daily 06/03/2012 12/29/2012 Inactive lovastatin 20 mg tablet RxNorm: 527802 Tablet(s) PO 05/14/2012 06/19/2012 Inactive TAKE 2 TABLETS BY MOUTH AT BEDTIME;Generic For:MEVACOR 20 MG TABLET Contour Test Strips RxNorm: Miscellaneous TID 04/25/2012 05/24/2012 Inactive lovastatin 20 mg tablet RxNorm: 887324 Tablet(s) PO 04/16/2012 05/13/2012 Inactive TAKE 2 TABLETS BY MOUTH AT BEDTIME;Generic For:MEVACOR 20 MG TABLET metformin 1,000 mg tablet RxNorm: 895386 Tablet(s) PO 04/16/2012 07/17/2012 Inactive TAKE 1 TABLET BY MOUTH TWICE DAILY AFTER MEALS;Generic For:GLUCOPHAGE 1,000 MG TABLET citalopram 20 mg tablet RxNorm: 076957 1 Tablet(s) PO daily 04/09/2012 09/23/2012 Inactive meloxicam 15 mg Tab RxNorm: 480014 1 Tablet(s) PO daily 2012 03/04/2012 Inactive meloxicam 15 mg Tab RxNorm: 959796 Tablet(s) PO 2012 07/19/2015 Inactive TAKE 1 TABLET BY MOUTH DAILY;Generic For:MOBIC 15MG TAB WC meloxicam 15 mg tablet RxNorm: 919279 1 Tablet(s) PO daily 2012 03/04/2012 Inactive Rocephin 500 mg Solution for Injection RxNorm: 5532470 Inj 03/04/2012 03/04/2012 Inactive sulfamethoxazole 800 mg-trimethoprim 160 mg tablet RxNorm: 085355 1 Tablet(s) PO BID 03/04/2012 03/13/2012 Inactive metoprolol succinate ER 25 mg 24 hr Tab RxNorm: 008413 1 Tablet(s) PO daily 12/03/2011 11/16/2014 Inactive Byetta 10 mcg/0.04 mL per dose Sub-Q Pen Injector RxNorm: 742382 10 Microgram(s) SQ BID 10 meq twice daily before the two largest meals of the day. 12/03/2011 06/03/2012 Inactive Plavix 75 mg Tab RxNorm: 601739 1 Tablet(s) PO daily 12/03/2011 11/16/2014 Inactive lovastatin 20 mg tablet RxNorm: 936787 2 Tablet(s) PO daily 11/12/2011 04/15/2012 Inactive TAKE 2 TABLETS BY MOUTH DAILY AT BEDTIME;Generic For:MEVACOR 20 MG TABLET N O T I C E Last dispense quantity was less than original quantity written Avapro 300 mg tablet RxNorm: 819684 1 Tablet(s) PO daily 08/28/2011 08/21/2012 Inactive metformin 1,000 mg Tab RxNorm: 266558 1 Tablet(s) PO BID 07/09/2011 07/02/2012 Inactive Victoza 0.6 mg/0.1 mL (18 mg/3 mL) Sub-Q Pen Injector RxNorm: 394927 1.8 Milligram(s) SQ daily 06/20/2011 03/04/2012 Inactive Fish Oil 1,000 mg capsule RxNorm: 1 Capsule(s) PO BID No Start Date Active Ocuvite oral RxNorm: 285171 oral No Start Date Active Farxiga 5 mg tablet RxNorm: 6425600 1 Tablet(s) PO QAM No Start Date Active potassium gluconate 595 mg (99 mg) tablet RxNorm: 118619 1 Tablet(s) PO daily No Start Date Active aspirin 81 mg Cap, Delayed Release RxNorm: 697478 1 Capsule(s) PO daily No Start Date Active multivitamin tablet RxNorm: oral No Start Date Active B Complex 1 oral RxNorm: 33240 oral No Start Date Active Protonix 40 mg tablet,delayed release RxNorm: 558022 1 Tablet(s) PO daily No Start Date 09/26/2017 Inactive Bydureon 2 mg SubQ Susp RxNorm: 3228179 1 SQ QW No Start Date 06/03/2012 Inactive Avapro 150 mg Tab RxNorm: 960897 1 Tablet(s) PO daily No Start Date 03/04/2012 Inactive Travatan Z 0.004 % Eye Drops RxNorm: 749381 1 Drop(s) OPH daily No Start Date 06/14/2014 Inactive metformin 1,000 mg tablet RxNorm: 753068 1 Tablet(s) PO BID No Start Date 03/04/2012 Inactive magnesium oxide 400 mg tablet RxNorm: 448749 Tablet(s) PO No Start Date 09/26/2017 Inactive Ativan 0.5 mg tablet RxNorm: 356200 1 Tablet(s) PO No Start Date 10/09/2013 Inactive 1 30 min prior to procedure meloxicam 15 mg Tab RxNorm: 824437 1 Tablet(s) PO daily No Start Date 03/04/2012 Inactive lovastatin 20 mg Tab RxNorm: 146481 2 Tablet(s) PO QHS No Start Date 11/12/2011 Inactive Pen Needle 31 x 3/16" RxNorm: Miscellaneous BID Pen Lily 31g/8mm BD to use for [place] injection BID No Start Date 06/03/2012 Inactive Medication Administered Medication Codes Instructions Start Date Status Kenalog 40 mg/mL suspension for injection RxNorm: 8199918 1Milliliter 06/04/2017 No longer Active Kenalog 40 mg/mL suspension for injection RxNorm: 6116625 1Milliliter 06/21/2016 No longer Active Kenalog 40 mg/mL suspension for injection RxNorm: 5895182 1Milliliter 05/04/2014 No longer Active Influenza Virus Vaccine 0.5 mL RxNorm: 07/01/2013 No longer Active Kenalog 40 mg/mL Susp for Injection RxNorm: 3432821 1Milliliter 09/25/2012 No longer Active Influenza Virus Vaccine 0.5 mL RxNorm: 06/04/2012 No longer Active Pneumovax 23 25 mcg/0.5 mL Injection RxNorm: 223555 Milliliter 06/04/2012 No longer Active Rocephin 500 mg Solution for Injection RxNorm: 3321001 03/04/2012 No longer Active Immunizations Vaccine Codes [...] 09/27/2010 completed Assessments Condition Codes Effective Dates Mixed hyperlipidemia ICD-10: E78.2 ICD-9: 272.2 01/07/2019 Type 2 diabetes mellitus without complications ICD-10: E11.9 ICD-9: 250.00 01/07/2019 Essential (primary) hypertension ICD-10: I10 ICD-9: 401.1 01/07/2019 Essential (primary) hypertension ICD-10: I10 ICD-9: [...] 04/03/2017 Cough ICD-10: R05 ICD-9: 786.2 04/03/2017 Morbid (severe) obesity due to excess calories ICD-10: E66.01 ICD-9: 278.01 08/30/2016 Pain in right hip ICD-10: M25.551 ICD-9: [...] 331.83 02/08/2014 Nightmares ICD-9: 307.47 02/08/2014 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 10/14/2013 Thumb pain ICD-9: 729.5 [...] For Visit Effective Dates Notes diabetes mellitus 10/09/2018 diabetes mellitus 07/07/2018 diabetes [...] Observation Code Item Item Code Result Date Cbc With Differential Ord2 WBC 5.40 K/ul [...] 30.4 pg 10/08/2018 Cbc With Differential Ord2 [place]% 11.1 % 10/08/2018 Cbc With Differential Ord2 [...] 1.72 K/ul 10/08/2018 Cbc With Differential Ord2 [place] ABS# 0.6 K/ul 10/08/2018 Cbc With Differential Ord2 [place] ABS# 0.2 K/ul 10/08/2018 Cbc With Differential Ord2 Baso ABS# 0.0 K/ul 10/08/2018 %Hba1C Qkk875 % HbA1c 12066- 6 7.2 % 10/08/2018 %Hba1C Xlr043 Gluc Ave 160 mg/dL 10/08/2018 Comp Metabolic Vwr793 NA 143 mEq/L 10/08/2018 Comp Metabolic Ipd410 K 4.4 mEq/L 10/08/2018 Comp Metabolic Qyx590 CL 105 mEq/L 10/08/2018 Comp Metabolic Yed460 CO2 28.0 mEq/L 10/08/2018 Comp Metabolic Cne577 ANION GAP 14 10/08/2018 Comp Metabolic Ley105 GLUCOSE 127 mg/dL 10/08/2018 Comp Metabolic Fuu915 Creat 1.1 mg/dL 10/08/2018 Comp Metabolic Zdc689 eGFR 72 ml/min/1.73m2 10/08/2018 Comp Metabolic Zcv978 BUN 18 mg/dL 10/08/2018 Comp Metabolic Otz333 B/C Ratio 17.0 Ratio 10/08/2018 Comp Metabolic Jae821 CALCIUM 9.8 mg/dL 10/08/2018 Comp Metabolic Det706 ALK PHOS 50 U/L 10/08/2018 Comp Metabolic Sdp993 AST(SGOT) 37 U/L 10/08/2018 Comp Metabolic Tam994 ALT(SGPT) 37 U/L 10/08/2018 Comp Metabolic Qew585 BILI T 0.8 mg/dL 10/08/2018 Comp Metabolic Qfp759 ALBUMIN 4.4 g/dL 10/08/2018 Comp Metabolic Voi706 TPRO 7.1 g/dL 10/08/2018 Comp Metabolic Xzz743 GLOB 2.7 g/dL 10/08/2018 Comp Metabolic Nbb724 A/G Ratio 1.6 Ratio 10/08/2018 Comp Metabolic Sxe432 Osmo 288 mOsmo 10/08/2018 Lipid Ord30 CHOL 150 mg/dL 10/08/2018 Lipid Ord30 HDL 45.0 mg/dl 10/08/2018 Lipid Ord30 TRIG 190 mg/dL 10/08/2018 Lipid Ord30 LDL 67 mg/dL 10/08/2018 Lipid Ord30 C/HDL 3.3 Ratio 10/08/2018 Tsh Ord6 TSH (3rd IS) 1.80 uIU/mL 10/08/2018 %Hba1C Nsu004 % HbA1c 46214- 6 7.6 % 07/04/2018 %Hba1C Puo414 Gluc Ave 171 mg/dL 07/04/2018 Comp Metabolic Xch099 NA 140 mEq/L 07/04/2018 Comp Metabolic Omr948 K 4.5 mEq/L 07/04/2018 Comp Metabolic Mfm189 CL 104 mEq/L 07/04/2018 Comp Metabolic Wyo276 CO2 28.0 mEq/L 07/04/2018 Comp Metabolic Tcg204 ANION GAP 13 07/04/2018 Comp Metabolic Msz895 GLUCOSE 211 mg/dL 07/04/2018 Comp Metabolic Yrr241 Creat 0.9 mg/dL 07/04/2018 Comp Metabolic Umm324 eGFR 85 ml/min/1.73m2 07/04/2018 Comp Metabolic Thf196 BUN 20 mg/dL 07/04/2018 Comp Metabolic Vwe674 B/C Ratio 21.7 Ratio 07/04/2018 Comp Metabolic Iec323 CALCIUM 9.5 mg/dL 07/04/2018 Comp Metabolic Ria626 ALK PHOS 46 U/L 07/04/2018 Comp Metabolic Mae285 AST(SGOT) 26 U/L 07/04/2018 Comp Metabolic Wnb521 ALT(SGPT) 29 U/L 07/04/2018 Comp Metabolic Qkr461 BILI T 0.6 mg/dL 07/04/2018 Comp Metabolic Cie320 ALBUMIN 4.2 g/dL 07/04/2018 Comp Metabolic Zcy063 TPRO 6.8 g/dL 07/04/2018 Comp Metabolic Rve538 GLOB 2.6 g/dL 07/04/2018 Comp Metabolic Gkl591 A/G Ratio 1.6 Ratio 07/04/2018 Comp Metabolic Ozk590 Osmo 288 mOsmo 07/04/2018 Tsh Ord6 TSH [...] 31.0 pg 07/04/2018 Cbc With Differential Ord2 [place]% 12.9 % 07/04/2018 Cbc With Differential Ord2 [...] 1.86 K/ul 07/04/2018 Cbc With Differential Ord2 [place] ABS# 0.9 K/ul 07/04/2018 Cbc With Differential Ord2 Eos ABS# 0.3 K/ul 07/04/2018 Cbc With Differential Ord2 Baso ABS# 0.1 K/ul 07/04/2018 Lipid Ord30 CHOL 159 mg/dL 07/04/2018 Lipid Ord30 HDL 45.0 mg/dl 07/04/2018 Lipid Ord30 TRIG 244 mg/dL 07/04/2018 Lipid Ord30 LDL 65 mg/dL 07/04/2018 Lipid Ord30 C/HDL 3.5 Ratio 07/04/2018 %Hba1C Igs453 % HbA1c 20584- 6 8.0 % 03/06/2018 %Hba1C Ggh337 Gluc Ave 183 mg/dL 03/06/2018 Lipid Ord30 [...] 30.2 pg 03/04/2018 Cbc With Differential Ord2 [place]% 12.2 % 03/04/2018 Cbc With Differential Ord2 [...] 1.93 K/ul 03/04/2018 Cbc With Differential Ord2 [place] ABS# 0.8 K/ul 03/04/2018 Cbc With Differential Ord2 Eos ABS# 0.2 K/ul 03/04/2018 Cbc With Differential Ord2 Baso ABS# 0.1 K/ul 03/04/2018 Comp Metabolic Pap393 NA 139 mEq/L 03/04/2018 Comp Metabolic Nau638 K 4.5 mEq/L 03/04/2018 Comp Metabolic Iri379 CL 102 mEq/L 03/04/2018 Comp Metabolic Qed972 CO2 28.0 mEq/L 03/04/2018 Comp Metabolic Irj521 ANION GAP 14 03/04/2018 Comp Metabolic Raa378 GLUCOSE 201 mg/dL 03/04/2018 Comp Metabolic Yvb384 Creat 1.0 mg/dL 03/04/2018 Comp Metabolic Mri406 eGFR 78 ml/min/1.73m2 03/04/2018 Comp Metabolic Otw126 BUN 18 mg/dL 03/04/2018 Comp Metabolic Vic810 B/C Ratio 18.0 Ratio 03/04/2018 Comp Metabolic Vli940 CALCIUM 9.4 mg/dL 03/04/2018 Comp Metabolic Qdh832 ALK PHOS 40 U/L 03/04/2018 Comp Metabolic Mzu525 AST(SGOT) 21 U/L 03/04/2018 Comp Metabolic Dhl127 ALT(SGPT) 27 U/L 03/04/2018 Comp Metabolic Eux805 BILI T 0.6 mg/dL 03/04/2018 Comp Metabolic Lkm885 ALBUMIN 4.1 g/dL 03/04/2018 Comp Metabolic Uzy625 TPRO 6.7 g/dL 03/04/2018 Comp Metabolic Err480 GLOB 2.7 g/dL 03/04/2018 Comp Metabolic Ttn578 A/G Ratio 1.5 Ratio 03/04/2018 Comp Metabolic Cpr045 Osmo 285 mOsmo 03/04/2018 Lipid Ord30 CHOL 171 mg/dL 11/20/2017 Lipid Ord30 HDL 52.0 mg/dl 11/20/2017 Lipid Ord30 TRIG 248 mg/dL 11/20/2017 Lipid Ord30 LDL 69 mg/dL 11/20/2017 Lipid Ord30 C/HDL 3.3 Ratio 11/20/2017 %Hba1C Teu897 % HbA1c 15366- 6 7.7 % 11/20/2017 %Hba1C Rzr251 Gluc Ave 174 mg/dL 11/20/2017 Comp Metabolic Sdz110 NA 140 mEq/L 11/20/2017 Comp Metabolic Sdr056 K 4.3 mEq/L 11/20/2017 Comp Metabolic Khe182 CL 103 mEq/L 11/20/2017 Comp Metabolic Axx292 CO2 27.0 mEq/L 11/20/2017 Comp Metabolic Boy443 ANION GAP 14 11/20/2017 Comp Metabolic Gzt672 GLUCOSE 151 mg/dL 11/20/2017 Comp Metabolic Xmt715 Creat 0.9 mg/dL 11/20/2017 Comp Metabolic Czy805 eGFR 87 ml/min/1.73m2 11/20/2017 Comp Metabolic Ara276 BUN 25 mg/dL 11/20/2017 Comp Metabolic Pff232 B/C Ratio 27.5 Ratio 11/20/2017 Comp Metabolic Kok166 CALCIUM 9.7 mg/dL 11/20/2017 Comp Metabolic Sgh644 ALK PHOS 49 U/L 11/20/2017 Comp Metabolic Tmr894 AST(SGOT) 25 U/L 11/20/2017 Comp Metabolic Lnp336 ALT(SGPT) 24 U/L 11/20/2017 Comp Metabolic Gnj589 BILI T 0.6 mg/dL 11/20/2017 Comp Metabolic Uae040 ALBUMIN 4.2 g/dL 11/20/2017 Comp Metabolic Xum286 TPRO 6.6 g/dL 11/20/2017 Comp Metabolic Vhr669 GLOB 2.4 g/dL 11/20/2017 Comp Metabolic Scj911 A/G Ratio 1.8 Ratio 11/20/2017 Comp Metabolic Lvc213 Osmo 287 mOsmo 11/20/2017 Cbc With Differential [...] 31.0 pg 07/25/2017 Cbc With Differential Ord2 [place]% 13.3 % 07/25/2017 Cbc With Differential Ord2 [...] 1.89 K/ul 07/25/2017 Cbc With Differential Ord2 [place] ABS# 0.9 K/ul 07/25/2017 Cbc With Differential Ord2 Eos ABS# 0.2 K/ul 07/25/2017 Cbc With Differential Ord2 Baso ABS# 0.1 K/ul 07/25/2017 Comp Metabolic Ggq639 NA 140 mEq/L 07/25/2017 Comp Metabolic Igm080 K 4.7 mEq/L 07/25/2017 Comp Metabolic Fjc468 CL 102 mEq/L 07/25/2017 Comp Metabolic Xyl583 CO2 30.0 mEq/L 07/25/2017 Comp Metabolic Apr622 ANION GAP 13 07/25/2017 Comp Metabolic Trp449 GLUCOSE 178 mg/dL 07/25/2017 Comp Metabolic Qap715 Creat 1.0 mg/dL 07/25/2017 Comp Metabolic Ojz274 eGFR 75 ml/min/1.73m2 07/25/2017 Comp Metabolic Gma886 BUN 23 mg/dL 07/25/2017 Comp Metabolic Iob474 B/C Ratio 22.3 Ratio 07/25/2017 Comp Metabolic Unu363 CALCIUM 9.7 mg/dL 07/25/2017 Comp Metabolic Gzo443 ALK PHOS 40 U/L 07/25/2017 Comp Metabolic Xpf902 AST(SGOT) 22 U/L 07/25/2017 Comp Metabolic Xhc618 ALT(SGPT) 25 U/L 07/25/2017 Comp Metabolic Epj559 BILI T 0.7 mg/dL 07/25/2017 Comp Metabolic Oli125 ALBUMIN 4.0 g/dL 07/25/2017 Comp Metabolic Xhr147 TPRO 6.7 g/dL 07/25/2017 Comp Metabolic Hoy862 GLOB 2.7 g/dL 07/25/2017 Comp Metabolic Wxc154 A/G Ratio 1.5 Ratio 07/25/2017 Comp Metabolic Mod159 Osmo 288 mOsmo 07/25/2017 %Hba1C Llv896 % HbA1c 58895- 6 7.1 % 07/25/2017 %Hba1C Cma867 Gluc Ave 157 mg/dL 07/25/2017 Lipid Ord30 CHOL 164 mg/dL 07/25/2017 Lipid Ord30 HDL 49.0 mg/dl 07/25/2017 Lipid Ord30 TRIG 266 mg/dL 07/25/2017 Lipid Ord30 LDL 62 mg/dL 07/25/2017 Lipid Ord30 C/HDL 3.3 Ratio 07/25/2017 Comp Metabolic Wmu720 NA 140 mEq/L 04/02/2017 Comp Metabolic Ryn616 K 4.4 mEq/L 04/02/2017 Comp Metabolic Qlx296 CL 103 mEq/L 04/02/2017 Comp Metabolic Pzl208 CO2 27.0 mEq/L 04/02/2017 Comp Metabolic Nhy410 ANION GAP 14 04/02/2017 Comp Metabolic Dbi091 GLUCOSE 182 mg/dL 04/02/2017 Comp Metabolic Fua426 Creat 1.1 mg/dL 04/02/2017 Comp Metabolic Zin233 eGFR 73 ml/min/1.73m2 04/02/2017 Comp Metabolic Fsu270 BUN 26 mg/dL 04/02/2017 Comp Metabolic Tst286 B/C Ratio 24.5 Ratio 04/02/2017 Comp Metabolic Fdj788 CALCIUM 9.4 mg/dL 04/02/2017 Comp Metabolic Lmh275 ALK PHOS 43 U/L 04/02/2017 Comp Metabolic Gdr078 AST(SGOT) 19 U/L 04/02/2017 Comp Metabolic Kdg753 ALT(SGPT) 20 U/L 04/02/2017 Comp Metabolic Lpv624 BILI T 0.7 mg/dL 04/02/2017 Comp Metabolic Ezn475 ALBUMIN 4.0 g/dL 04/02/2017 Comp Metabolic Kvj049 TPRO 6.6 g/dL 04/02/2017 Comp Metabolic Omc664 GLOB 2.6 g/dL 04/02/2017 Comp Metabolic Hgf796 A/G Ratio 1.6 Ratio 04/02/2017 Comp Metabolic Ili043 Osmo 289 mOsmo 04/02/2017 %Hba1C Fdv314 % HbA1c 62284- 6 7.9 % 04/02/2017 %Hba1C Kpd807 Gluc Ave 180 mg/dL 04/02/2017 Cbc With [...] 30.6 pg 04/02/2017 Cbc With Differential Ord2 [place]% 11.5 % 04/02/2017 Cbc With Differential Ord2 [...] 2.21 K/ul 04/02/2017 Cbc With Differential Ord2 [place] ABS# 0.9 K/ul 04/02/2017 Cbc With Differential [...] 30.6 pg 12/04/2016 Cbc With Differential Ord2 [place]% 10.7 % 12/04/2016 Cbc With Differential Ord2 [...] 1.76 K/ul 12/04/2016 Cbc With Differential Ord2 [place] ABS# 0.8 K/ul 12/04/2016 Cbc With Differential Ord2 Eos ABS# 0.2 K/ul 12/04/2016 Cbc With Differential Ord2 Baso ABS# 0.1 K/ul 12/04/2016 Lipid Ord30 CHOL 156 mg/dL 12/04/2016 Lipid Ord30 HDL 47.0 mg/dl 12/04/2016 Lipid Ord30 TRIG 219 mg/dL 12/04/2016 Lipid Ord30 LDL 65 mg/dL 12/04/2016 Lipid Ord30 C/HDL 3.3 Ratio 12/04/2016 Comp Metabolic Nft186 NA 139 mEq/L 12/04/2016 Comp Metabolic Ico169 K 4.4 mEq/L 12/04/2016 Comp Metabolic Wkj217 CL 103 mEq/L 12/04/2016 Comp Metabolic Vcx977 CO2 27.0 mEq/L 12/04/2016 Comp Metabolic Ljh861 ANION GAP 13 12/04/2016 Comp Metabolic Zqb453 GLUCOSE 147 mg/dL 12/04/2016 Comp Metabolic Jms869 Creat 1.0 mg/dL 12/04/2016 Comp Metabolic Fyf466 eGFR 83 ml/min/1.73m2 12/04/2016 Comp Metabolic Nzt945 BUN 20 mg/dL 12/04/2016 Comp Metabolic Esq436 B/C Ratio 21.1 Ratio 12/04/2016 Comp Metabolic Yzc516 CALCIUM 9.5 mg/dL 12/04/2016 Comp Metabolic Otp595 ALK PHOS 44 U/L 12/04/2016 Comp Metabolic Rqx303 AST(SGOT) 22 U/L 12/04/2016 Comp Metabolic Cxd470 ALT(SGPT) 23 U/L 12/04/2016 Comp Metabolic Xhe973 BILI T 0.8 mg/dL 12/04/2016 Comp Metabolic Vlt953 ALBUMIN 3.9 g/dL 12/04/2016 Comp Metabolic Fcd261 TPRO 6.3 g/dL 12/04/2016 Comp Metabolic Fly010 GLOB 2.4 g/dL 12/04/2016 Comp Metabolic Ptf313 A/G Ratio 1.7 Ratio 12/04/2016 Comp Metabolic Poc015 Osmo 283 mOsmo 12/04/2016 Tsh Ord6 hTSH II 3.35 uIU/mL 12/04/2016 %Hba1C Fga099 % HbA1c 41016- 6 7.4 % 12/04/2016 %Hba1C Jrn161 Gluc Ave 166 mg/dL 12/04/2016 Comp Metabolic Hzq691 NA 138 mEq/L 08/28/2016 Comp Metabolic Zwx275 K 4.7 mEq/L 08/28/2016 Comp Metabolic Ucd706 CL 101 mEq/L 08/28/2016 Comp Metabolic Kgo510 CO2 29.0 mEq/L 08/28/2016 Comp Metabolic Edy089 ANION GAP 13 08/28/2016 Comp Metabolic Pkg136 GLUCOSE 188 mg/dL 08/28/2016 Comp Metabolic Dcn477 Creat 1.0 mg/dL 08/28/2016 Comp Metabolic Lzh747 eGFR 82 ml/min/1.73m2 08/28/2016 Comp Metabolic Vnx773 BUN 21 mg/dL 08/28/2016 Comp Metabolic Yxi900 B/C Ratio 21.9 Ratio 08/28/2016 Comp Metabolic Heg442 CALCIUM 9.6 mg/dL 08/28/2016 Comp Metabolic Xzm080 ALK PHOS 52 U/L 08/28/2016 Comp Metabolic Xjh763 AST(SGOT) 27 U/L 08/28/2016 Comp Metabolic Egn801 ALT(SGPT) 26 U/L 08/28/2016 Comp Metabolic Hxf478 BILI T 0.9 mg/dL 08/28/2016 Comp Metabolic Eos246 ALBUMIN 4.2 g/dL 08/28/2016 Comp Metabolic Cxe231 TPRO 6.8 g/dL 08/28/2016 Comp Metabolic Eyg369 GLOB 2.6 g/dL 08/28/2016 Comp Metabolic Nzu843 A/G Ratio 1.6 Ratio 08/28/2016 Comp Metabolic Zqh012 Osmo 284 mOsmo 08/28/2016 Cbc With Differential [...] 30.9 pg 08/28/2016 Cbc With Differential Ord2 [place]% 14.3 % 08/28/2016 Cbc With Differential Ord2 [...] 1.68 K/ul 08/28/2016 Cbc With Differential Ord2 [place] ABS# 1.1 K/ul 08/28/2016 Cbc With Differential Ord2 Eos ABS# 0.3 K/ul 08/28/2016 Cbc With Differential Ord2 Baso ABS# 0.1 K/ul 08/28/2016 %Hba1C Bru987 % HbA1c 23889- 6 7.6 % 08/28/2016 %Hba1C Njc150 Gluc Ave 171 mg/dL 08/28/2016 Cbc With [...] 30.3 pg 05/23/2016 Cbc With Differential Ord2 [place]% 12.0 % 05/23/2016 Cbc With Differential Ord2 [...] 1.74 K/ul 05/23/2016 Cbc With Differential Ord2 [place] ABS# 0.9 K/ul 05/23/2016 Cbc With Differential Ord2 Eos ABS# 0.2 K/ul 05/23/2016 Cbc With Differential Ord2 Baso ABS# 0.1 K/ul 05/23/2016 Tsh Ord6 hTSH II 3.24 uIU/mL 05/23/2016 %Hba1C Fdm300 % HbA1c 84155- 6 7.1 % 05/23/2016 %Hba1C Wya858 Gluc Ave 157 mg/dL 05/23/2016 Lipid Ord30 CHOL 155 mg/dL 05/23/2016 Lipid Ord30 HDL 50.0 mg/dl 05/23/2016 Lipid Ord30 TRIG 159 mg/dL 05/23/2016 Lipid Ord30 LDL 73 mg/dL 05/23/2016 Lipid Ord30 C/HDL 3.1 Ratio 05/23/2016 Comp Metabolic Ull934 NA 137 mEq/L 05/23/2016 Comp Metabolic Nak797 K 4.3 mEq/L 05/23/2016 Comp Metabolic Uxe737 CL 102 mEq/L 05/23/2016 Comp Metabolic Cig406 CO2 28.0 mEq/L 05/23/2016 Comp Metabolic Bjm768 ANION GAP 11 05/23/2016 Comp Metabolic Tbo584 GLUCOSE 140 mg/dL 05/23/2016 Comp Metabolic Rac509 Creat 0.9 mg/dL 05/23/2016 Comp Metabolic Irf895 eGFR 93 ml/min/1.73m2 05/23/2016 Comp Metabolic Kaa140 BUN 23 mg/dL 05/23/2016 Comp Metabolic Xcj103 B/C Ratio 26.7 Ratio 05/23/2016 Comp Metabolic Dwt545 CALCIUM 9.4 mg/dL 05/23/2016 Comp Metabolic Tsu796 ALK PHOS 43 U/L 05/23/2016 Comp Metabolic Rkv995 AST(SGOT) 23 U/L 05/23/2016 Comp Metabolic Lzv107 ALT(SGPT) 23 U/L 05/23/2016 Comp Metabolic Itg340 BILI T 0.7 mg/dL 05/23/2016 Comp Metabolic Xxx385 ALBUMIN 4.2 g/dL 05/23/2016 Comp Metabolic Kri769 TPRO 6.8 g/dL 05/23/2016 Comp Metabolic Fsy707 GLOB 2.6 g/dL 05/23/2016 Comp Metabolic Qyu795 A/G Ratio 1.6 Ratio 05/23/2016 Comp Metabolic Lop600 Osmo 280 mOsmo 05/23/2016 Cbc With Differential [...] 29.9 pg 01/24/2016 Cbc With Differential Ord2 [place]% 11.1 % 01/24/2016 Cbc With Differential Ord2 [...] 1.92 K/ul 01/24/2016 Cbc With Differential Ord2 [place] ABS# 0.8 K/ul 01/24/2016 Cbc With Differential Ord2 E[place] ABS# 0.3 K/ul 01/24/2016 Cbc With Differential Ord2 Baso ABS# 0.1 K/ul 01/24/2016 Cbc With Differential Ord2 New Analyzer Notice Please note new ref ranges starting 09-21-2015 due to implemntation of new five part differential hematolgy analyzer. 01/24/2016 Comp Metabolic Atw250 NA 139 mEq/L 01/24/2016 Comp Metabolic Xjz468 K 4.1 mEq/L 01/24/2016 Comp Metabolic Fzo414 CL 102 mEq/L 01/24/2016 Comp Metabolic Zva150 CO2 29.0 mEq/L 01/24/2016 Comp Metabolic Gsa462 ANION GAP 12 01/24/2016 Comp Metabolic Skb619 GLUCOSE 140 mg/dL 01/24/2016 Comp Metabolic Mau294 Creat 0.9 mg/dL 01/24/2016 Comp Metabolic Qrk406 eGFR 87 ml/min/1.73m2 01/24/2016 Comp Metabolic Nsq058 BUN 20 mg/dL 01/24/2016 Comp Metabolic Ocy090 B/C Ratio 22.0 Ratio 01/24/2016 Comp Metabolic Diq007 CALCIUM 9.3 mg/dL 01/24/2016 Comp Metabolic Rgd527 ALK PHOS 46 U/L 01/24/2016 Comp Metabolic Tce773 AST(SGOT) 23 U/L 01/24/2016 Comp Metabolic Syd203 ALT(SGPT) 22 U/L 01/24/2016 Comp Metabolic Eix998 BILI T 0.7 mg/dL 01/24/2016 Comp Metabolic Xez423 ALBUMIN 4.1 g/dL 01/24/2016 Comp Metabolic Nkv776 TPRO 6.7 g/dL 01/24/2016 Comp Metabolic Pbo452 GLOB 2.6 g/dL 01/24/2016 Comp Metabolic Aqd838 A/G Ratio 1.6 Ratio 01/24/2016 Comp Metabolic Iyp859 Osmo 282 mOsmo 01/24/2016 %Hba1C Lub108 % HbA1c 68279- 6 6.8 % 01/24/2016 %Hba1C Yyk852 Gluc Ave 148 mg/dL 01/24/2016 Tsh Ord6 hTSH II 3.45 uIU/mL 01/24/2016 Lipid Ord30 CHOL 137 mg/dL 01/24/2016 Lipid Ord30 HDL 47.0 mg/dl 01/24/2016 Lipid Ord30 TRIG 161 mg/dL 01/24/2016 Lipid Ord30 LDL 58 mg/dL 01/24/2016 Lipid Ord30 C/HDL 2.9 Ratio 01/24/2016 Tsh Ord6 hTSH II 3.71 uIU/mL 10/25/2015 %Hba1C Mpp778 % HbA1c 90412- 6 7.1 % 10/25/2015 %Hba1C Qqf676 Gluc Ave 157 mg/dL 10/25/2015 Cbc With [...] 30.2 pg 10/25/2015 Cbc With Differential Ord2 [place]% 12.4 % 10/25/2015 Cbc With Differential Ord2 [...] 1.69 K/ul 10/25/2015 Cbc With Differential Ord2 [place] ABS# 0.8 K/ul 10/25/2015 Cbc With Differential [...] Ord30 C/HDL 3.2 Ratio 10/25/2015 Comp Metabolic Fbf591 NA 136 mEq/L 10/25/2015 Comp Metabolic Ggn816 K 4.0 mEq/L 10/25/2015 Comp Metabolic Jwp412 CL 102 mEq/L 10/25/2015 Comp Metabolic Gww262 CO2 26.0 mEq/L 10/25/2015 Comp Metabolic Jys340 ANION GAP 12 10/25/2015 Comp Metabolic Vei857 GLUCOSE 119 mg/dL 10/25/2015 Comp Metabolic Vfa885 Creat 1.1 mg/dL 10/25/2015 Comp Metabolic Trd933 eGFR 69 ml/min/1.73m2 10/25/2015 Comp Metabolic Dkh619 BUN 21 mg/dL 10/25/2015 Comp Metabolic Bdy819 B/C Ratio 18.8 Ratio 10/25/2015 Comp Metabolic Sls998 CALCIUM 9.5 mg/dL 10/25/2015 Comp Metabolic Jek485 ALK PHOS 49 U/L 10/25/2015 Comp Metabolic Jpf848 AST(SGOT) 29 U/L 10/25/2015 Comp Metabolic Ilm948 ALT(SGPT) 28 U/L 10/25/2015 Comp Metabolic Wur185 BILI T 0.7 mg/dL 10/25/2015 Comp Metabolic Xmz932 ALBUMIN 4.2 g/dL 10/25/2015 Comp Metabolic Ict752 TPRO 6.7 g/dL 10/25/2015 Comp Metabolic Usm760 GLOB 2.5 g/dL 10/25/2015 Comp Metabolic Tbh896 A/G Ratio 1.7 Ratio 10/25/2015 Comp Metabolic Tfk378 Osmo 276 mOsmo 10/25/2015 Sensitivity Report #1 [id number] ORGANISM ESCHERICHIA COLI 10/06/2015 Sensitivity Report #1 [id number] ORG NUMBER 1 10/06/2015 Sensitivity Report #1 [id number] AMIKACIN S 10/06/2015 Sensitivity Report #1 [id number] AMPICILLIN/SULBACTAM S 10/06/2015 Sensitivity Report #1 [id number] AMOXICILLIN/CLAV S 10/06/2015 Sensitivity Report #1 [id number] CEFEPIME S 10/06/2015 Sensitivity Report #1 [id number] AMPICILLIN S 10/06/2015 Sensitivity Report #1 [id number] CEFOTAXIME S 10/06/2015 Sensitivity Report #1 [id number] CEFAZOLIN S 10/06/2015 Sensitivity Report #1 [id number] CEFTAZIDIME S 10/06/2015 Sensitivity Report #1 [id number] CEFTRIAXONE S 10/06/2015 Sensitivity Report #1 [id number] CIPROFLOXACIN S 10/06/2015 Sensitivity Report #1 [id number] GENTAMICIN S 10/06/2015 Sensitivity Report #1 [id number] LEVOFLOXACIN S 10/06/2015 Sensitivity Report #1 [id number] CEFUROXIME S 10/06/2015 Sensitivity Report #1 [id number] MEROPENEM S 10/06/2015 Sensitivity Report #1 [id number] TETRACYCLINE S 10/06/2015 Sensitivity Report #1 [id number] ERTAPENEM S 10/06/2015 Sensitivity Report #1 [id number] TOBRAMYCIN S 10/06/2015 Sensitivity Report #1 [id number] TRIMETH/SULFA S 10/06/2015 Sensitivity Report #1 [id number] IMIPENEM S 10/06/2015 Sensitivity Report #1 [id number] NITROFURANTOIN S 10/06/2015 Sensitivity Report #1 [id number] PIPERACILLIN/TAZO S 10/06/2015 Culture Urine [id number] URINE CULTURE SEE NOTES 10/06/2015 Culture Urine [id number] SOURCE: URINE 10/06/2015 Culture Urine [id number] STATUS: FINAL 10/06/2015 Culture Urine [id number] DATE PLATED: 10/03/2015 10/06/2015 Culture Urine [id number] PRELIMINARY: 10/06/2015 Culture Urine [id number] CULTURE REPORT: 10/06/2015 Urine Culture Ucult Complete >100,000 col/ml aerobic growth sent to ref lab 10/04/2015 Comp Metabolic Mxp409 NA 133 mEq/L 07/19/2015 Comp Metabolic Cbf500 K 4.2 mEq/L 07/19/2015 Comp Metabolic Lwk407 CL 101 mEq/L 07/19/2015 Comp Metabolic Jat894 CO2 25.0 mEq/L 07/19/2015 Comp Metabolic Ctq714 ANION GAP 11 07/19/2015 Comp Metabolic Szu239 GLUCOSE 293 mg/dL 07/19/2015 Comp Metabolic Naw754 Creat 1.0 mg/dL 07/19/2015 Comp Metabolic Qmj022 eGFR 81 ml/min/1.73m2 07/19/2015 Comp Metabolic Wcu378 BUN 19 mg/dL 07/19/2015 Comp Metabolic Ljs501 B/C Ratio 19.6 Ratio 07/19/2015 Comp Metabolic Mwt766 CALCIUM 9.4 mg/dL 07/19/2015 Comp Metabolic Gvt187 ALK PHOS 61 U/L 07/19/2015 Comp Metabolic Tfw420 AST(SGOT) 32 U/L 07/19/2015 Comp Metabolic Zzd017 ALT(SGPT) 41 U/L 07/19/2015 Comp Metabolic Nrd849 BILI T 0.7 mg/dL 07/19/2015 Comp Metabolic Vcw482 ALBUMIN 4.1 g/dL 07/19/2015 Comp Metabolic Uop037 TPRO 6.7 g/dL 07/19/2015 Comp Metabolic Wod755 GLOB 2.6 g/dL 07/19/2015 Comp Metabolic Yxq923 A/G Ratio 1.6 Ratio 07/19/2015 Comp Metabolic Ubg509 Osmo 279 mOsmo 07/19/2015 %Hba1C Ubb926 % HbA1c 59186- 6 9.2 % 07/19/2015 %Hba1C Szo536 Gluc Ave 217 mg/dL 07/19/2015 Cbc With [...] Ord6 hTSH II 2.72 uIU/mL 04/19/2015 %Hba1C Pub864 % HbA1c 87918- 6 8.6 % 04/19/2015 %Hba1C Ohp514 Gluc Ave 200 mg/dL 04/19/2015 Comp Metabolic Ipv496 NA 139 mEq/L 04/19/2015 Comp Metabolic Shd063 K 4.2 mEq/L 04/19/2015 Comp Metabolic Cxu353 CL 106 mEq/L 04/19/2015 Comp Metabolic Dhf358 CO2 27.0 mEq/L 04/19/2015 Comp Metabolic Ych935 ANION GAP 10 04/19/2015 Comp Metabolic Zxq980 GLUCOSE 157 mg/dL 04/19/2015 Comp Metabolic Rti347 Creat 0.9 mg/dL 04/19/2015 Comp Metabolic Klv487 eGFR 84 ml/min/1.73m2 04/19/2015 Comp Metabolic Ifv643 BUN 14 mg/dL 04/19/2015 Comp Metabolic Dvt450 B/C Ratio 14.9 Ratio 04/19/2015 Comp Metabolic Elu545 CALCIUM 9.5 mg/dL 04/19/2015 Comp Metabolic Ipm236 ALK PHOS 51 U/L 04/19/2015 Comp Metabolic Qlu551 AST(SGOT) 28 U/L 04/19/2015 Comp Metabolic Uhv159 ALT(SGPT) 29 U/L 04/19/2015 Comp Metabolic Kvq539 BILI T 0.6 mg/dL 04/19/2015 Comp Metabolic Gad005 ALBUMIN 4.1 g/dL 04/19/2015 Comp Metabolic Kex532 TPRO 6.4 g/dL 04/19/2015 Comp Metabolic Ofy257 GLOB 2.3 g/dL 04/19/2015 Comp Metabolic Jnn557 A/G Ratio 1.8 Ratio 04/19/2015 Comp Metabolic Gzf842 Osmo 281 mOsmo 04/19/2015 Lipid Ord30 CHOL 136 mg/dL 04/19/2015 Lipid Ord30 HDL 42.0 mg/dl 04/19/2015 Lipid Ord30 TRIG 226 mg/dL 04/19/2015 Lipid Ord30 LDL 49 mg/dL 04/19/2015 Lipid Ord30 C/HDL 3.2 Ratio 04/19/2015 Review of Systems System Result Effective Dates Constitutional No anorexia 10/09/2018 Constitutional No night [...] protuberant 04/19/2014 None Full Exam - General 1994 Musculoskeletal head and neck Overall: head atraumatic 04/19/2014 None Full Exam - General 1994 Musculoskeletal head and neck Overall: cervical spine benign 04/19/2014 None Full Exam - General 1994 Neurologic gait Conventional walking: wide-based 04/19/2014 None Full Exam - General 1994 Psychiatric orientation/consciousness Overall: oriented to person, place and time 04/19/2014 None Full Exam - General 1994 Psychiatric mood and affect Overall: normal mood and affect 04/19/2014 None Full Exam - General 1994 Constitutional general appearance Overall: well developed 02/08/2014 None Full Exam - General 1994 Constitutional general appearance Overall: in no acute distress 02/08/2014 None Full Exam - General 1994 Constitutional general appearance Overall: well nourished 02/08/2014 [...] benign 01/13/2014 None Full Exam - General 1995 Neurologic gait Conventional walking: wide-based 01/13/2014 None [...] masses 10/14/2013 None Full Exam - General 1995 Ears/Nose/Throat oral cavity/pharynx/larynx Overall: oral mucosa clear [...] bilaterally 07/01/2013 None Full Exam - General 1994 Respiratory respiratory effort/rhythm Overall: no retractions 07/01/2013 [...] murmurs 07/01/2013 None Full Exam - General 1994 Abdomen abdominal exam Contour: rounded 07/01/2013 None [...] affect 07/01/2013 None Full Exam - General 1995 Constitutional general appearance Overall: well developed 03/04/2013 None Full Exam - General 1994 Constitutional general appearance Overall: in no acute distress 03/04/2013 None Full Exam - General 1995 Constitutional general appearance Overall: well nourished 03/04/2013 [...] protuberant 03/04/2013 None Full Exam - General 1994 Musculoskeletal head and neck Overall: head atraumatic 03/04/2013 None Full Exam - General 1994 Musculoskeletal head and neck Overall: cervical spine benign 03/04/2013 None Full Exam - General 1994 Neurologic gait Conventional walking: wide-based 03/04/2013 None Full Exam - General 1994 Psychiatric orientation/consciousness Overall: oriented to person, place and time 03/04/2013 None Full Exam - General 1994 Psychiatric mood and affect Overall: normal mood and affect 03/04/2013 None Full Exam - General 1994 Constitutional general appearance Overall: well developed 02/04/2013 None Full Exam - General 1994 Constitutional general appearance Overall: in no acute distress 02/04/2013 None Full Exam - General 1994 Constitutional general appearance Overall: well nourished 02/04/2013 [...] wide-based 12/03/2012 None Full Exam - General 1994 Psychiatric orientation/consciousness Overall: oriented to person, place and time 12/03/2012 None Full Exam - General 1994 Psychiatric mood and affect Overall: normal mood and affect 12/03/2012 None Full Exam - General 1994 Constitutional general appearance Overall: well developed 12/03/2012 None Full Exam - General 1994 [...] accomodation 09/29/2012 None Full Exam - General 1995 Respiratory auscultation Overall: breath sounds clear bilaterally 09/29/2012 None Full Exam - General 1995 Respiratory respiratory effort/rhythm Overall: no retractions 09/29/2012 None Full Exam - General 1995 Respiratory respiratory effort/rhythm Overall: normal rate 09/29/2012 None Full Exam - General 1995 Cardiovascular auscultation of heart Overall: regular rate 09/29/2012 None Full Exam - General 1995 Cardiovascular auscultation of heart Overall: normal heart sounds 09/29/2012 None Full Exam - General 1995 Cardiovascular auscultation of heart Overall: no murmurs 09/29/2012 None Full Exam - General 1995 Abdomen abdominal exam Contour: rounded 09/29/2012 None Full Exam - General 1995 Abdomen abdominal exam Contour: protuberant 09/29/2012 None [...] developed 09/29/2012 None Full Exam - General 1994 Constitutional general appearance Overall: in no acute distress 09/29/2012 None Full Exam - General 1994 Constitutional general appearance Overall: well nourished 09/29/2012 None Full Exam - General 1994 Psychiatric orientation/consciousness Overall: oriented to person, place and time 09/29/2012 None Full Exam - General 1994 Psychiatric mood and affect Overall: normal mood and affect 09/29/2012 None Full Exam - General 1994 Constitutional general appearance Overall: well developed 09/25/2012 None Full Exam - General 1994 Constitutional general appearance Overall: in no acute distress 09/25/2012 None Full Exam - General 1994 Constitutional general appearance Overall: well nourished 09/25/2012 [...] accomodation 08/27/2012 None Full Exam - General 1994 Respiratory auscultation Overall: breath sounds clear bilaterally 08/27/2012 None Full Exam - General 1994 Respiratory respiratory effort/rhythm Overall: no retractions 08/27/2012 None Full Exam - General 1994 Respiratory respiratory effort/rhythm Overall: normal rate 08/27/2012 [...] affect 08/27/2012 None Full Exam - General 1995 Constitutional general appearance Overall: well developed 06/25/2012 [...] affect 04/24/2012 None Full Exam - General 1994 Constitutional general appearance Overall: well developed 04/09/2012 [...] rate 04/09/2012 None Full Exam - General 1995 Cardiovascular [...] murmurs 03/04/2012 None Full Exam - General 1995 Abdomen abdominal exam Overall: no tenderness 03/04/2012 None Full Exam - General 1994 Abdomen abdominal exam Overall: normal bowel sounds 03/04/2012 None Full Exam - General 1994 Abdomen abdominal exam Contour: rounded 03/04/2012 None Full Exam - General 1994 Abdomen abdominal exam Contour: protuberant 03/04/2012 None Full Exam - General 1995 Musculoskeletal [...] bilaterally 12/03/2011 None Full Exam - General 1995 Respiratory respiratory effort/rhythm Overall: no retractions 12/03/2011 None Full Exam - General 1994 Respiratory respiratory effort/rhythm Overall: normal rate 12/03/2011 None Full Exam - General 1994 Cardiovascular auscultation of heart Overall: normal heart sounds 12/03/2011 None Full Exam - General 1994 Cardiovascular auscultation of heart Overall: no murmurs 12/03/2011 None Full Exam - General 1995 Constitutional general appearance Overall: well nourished 12/03/2011 None Full Exam - General 1995 Constitutional general appearance Overall: well developed 12/03/2011 [...] murmurs 10/31/2011 None Full Exam - General 1994 Musculoskeletal head and neck Overall: head atraumatic 10/31/2011 None Full Exam - General 1994 Musculoskeletal head and neck Overall: cervical spine benign 10/31/2011 None Full Exam - General 1994 Integument inspection of skin Location: left hand 10/31/2011 2 lesions on fingers Full Exam - General 1994 Integument inspection of skin Location: right hand 10/31/2011 None Full Exam - General 1994 Integument inspection of skin Pigmentation: hypopigmentation 10/31/2011 None Full Exam - General 1994 Integument inspection of skin Consistency: thick 10/31/2011 [...] VACC NO PRSV 3 YRS+ IM CPT-4: 18739 05/21/2018 IIV4 VACC NO PRSV 3 YRS+ IM CPT-4: 90994 05/21/2018 ADMIN INFLUENZA VIRUS VAC CPT-4: G0008 05/21/2018 ADMIN PNEUMOCOCCAL VACCINE SNOMED CT: 87682120 CPT-4: G0009 05/21/2018 FLU VAC NO PRSV 4 DONNA 3 YRS+ CPT-4: 75202 05/21/2018 PPPS, SUBSEQ VISIT CPT- 4: G0439 12/24/2017 TRIAMCINOLONE ACET INJ NOS CPT-4: J3301 12/24/2017 DRAIN/INJECT JOINT/BURSA CPT-4: 60988 12/24/2017 REMOVAL OF SKIN TAGS <W/15 CPT-4: 31892 07/02/2017 ADMIN INFLUENZA VIRUS VAC CPT-4: G0008 06/28/2017 FLU VAC NO PRSV 4 DONNA 3 YRS+ CPT-4: 52507 06/28/2017 TRIAMCINOLONE ACET INJ NOS CPT-4: J3301 06/04/2017 PPPS, SUBSEQ VISIT CPT- 4: G0439 12/13/2016 PNEUMOCOCCAL VACC [address]: 36474125 CPT-4: 67877 12/13/2016 ADMIN PNEUMOCOCCAL VACCINE SNOMED CT: 74933870 CPT-4: G0009 12/13/2016 DRAIN/INJECT JOINT/BURSA CPT-4: 28680 08/30/2016 TRIAMCINOLONE ACET INJ NOS CPT-4: J3301 08/30/2016 URINALYSIS NONAUTO W/O SCOPE CPT-4: 37645 07/13/2016 INJ TRIGGER POINT 1/2 MUSCL CPT-4: 75873 06/21/2016 ADMIN INFLUENZA VIRUS VAC CPT-4: G0008 05/24/2016 FLU VACC PRSV FREE INC ANTIG Formatting Model/CDA Sections, Assigned to/Judy Pierre CPT-4: 78092Kpbcciu 05/24/2016 URINALYSIS NONAUTO W/O SCOPE CPT-4: 85644 10/03/2015 ADMIN INFLUENZA VIRUS VAC CPT-4: G0008 07/20/2015 IMMUNIZATION ADMIN CPT- 4: 36221 07/20/2015 FLU VACC PRSV FREE INC ANTIG Formatting Model/CDA Sections, Assigned to/Judy Pierre CPT-4: [id number] 07/20/2015 URINALYSIS NONAUTO W/O SCOPE CPT-4: 86073 05/18/2015 URINALYSIS NONAUTO W/O SCOPE CPT-4: 57096 05/09/2015 ADMIN INFLUENZA VIRUS VAC CPT-4: G0008 06/03/2014 FLU VAC NO PRSV 4 DONNA 3 YRS+ Assigned to/Judy Pierre CPT-4: 63827Szfqbwq 06/03/2014 TRIAMCINOLONE ACET INJ NOS CPT-4: J3301 05/04/2014 ADMIN INFLUENZA VIRUS VAC CPT-4: G0008 07/01/2013 FLULAVAL VACC, 3 YRS & >, IM CPT-4: Q2036 07/01/2013 PRESCRIP TRANSMIT VIA ERX SY CPT-4: G8553 03/04/2013 PRESCRIP TRANSMIT VIA ERX SY CPT-4: G8553 02/04/2013 DRAIN/INJECT JOINT/BURSA CPT-4: 23015 09/25/2012 ADMIN INFLUENZA VIRUS VAC CPT-4: G0008 06/04/2012 FLULAVAL VACC, 3 YRS & >, IM CPT-4: Q2036 06/04/2012 ADMIN PNEUMOCOCCAL VACCINE SNOMED CT: 78787321 CPT-4: G0009 06/04/2012 PRESCRIP TRANSMIT VIA ERX SY CPT-4: G8553 04/09/2012 ROCEPHIN, PER 250 MG CPT- 4: J0696 03/04/2012 PRESCRIP TRANSMIT VIA ERX SY CPT-4: G8553 03/04/2012 DESTRUCT PREMALG LESION CPT-4: 59393 07/24/2011 DESTRUCT PREMALG LES 2-14 CPT-4: 07288 07/24/2011 DESTRUCT PREMALG LES 2-14 CPT-4: 05807 07/18/2011 DESTRUCT PREMALG LESION CPT-4: 63678 07/18/2011 Vital Signs Date Vital 10/09/2018 Blood Pressure 1: 148/80 Code: 8480-6 BMI: 42.3 Code: 49988-8 Heart Rate 1: 66 bpm Height: 5'6" SpO2: 97% Weight: 262 lbs 07/07/2018 Blood Pressure 1: 140/76 Code: 8480-6 BMI: 45.2 Code: 76706-6 Heart Rate 1: 66 bpm Height: 5'6" SpO2: 98% Weight: 280 lbs 05/21/2018 Blood Pressure 1: 164/78 Code: 8480-6 Blood Pressure 1: 132/74 Code: 8480-6 BMI: 44.5 Code: 78231-0 Heart Rate 1: 63 bpm Height: 5'6" SpO2: 96% Weight: 276 lbs 03/06/2018 Blood Pressure 1: 140/80 Code: 8480-6 BMI: 45.6 Code: 19611-1 Heart Rate 1: 94 bpm Height: 5'6" SpO2: 96% Weight: 282 lbs 4 oz 12/24/2017 Blood Pressure 1: 148/72 Code: 8480-6 BMI: 44.7 Code: 10824-5 Heart Rate 1: 70 bpm Height: 5'6" SpO2: 95% Waist Measure (cm): 132 cm Weight: 277 lbs 11/21/2017 Blood Pressure 1: 134/76 Code: 8480-6 BMI: 44.4 Code: 41458-9 Heart Rate 1: 63 bpm Height: 5'6" SpO2: 97% Weight: 275 lbs 07/29/2017 Blood Pressure 1: 148/76 Code: 8480-6 BMI: 43.7 Code: 91755-7 Heart Rate 1: 75 bpm Height: 5'6" SpO2: 97% Weight: 275 lbs 07/02/2017 Blood Pressure 1: 148/78 Code: 8480-6 BMI: 43.4 Code: 99857-3 Heart Rate 1: 55 bpm Height: 5'6" SpO2: 97% Weight: 273 lbs 06/04/2017 Blood Pressure 1: 132/58 Code: 8480-6 BMI: 43.1 Code: 04150-3 Heart Rate 1: 64 bpm Height: 5'6" SpO2: 96% Weight: 271 lbs 04/03/2017 Blood Pressure 1: 124/70 Code: 8480-6 BMI: 44.2 Code: 51619-5 Heart Rate 1: 70 bpm Height: 5'6" Height: 5'6" SpO2: 95% Weight: 278 lbs 12/13/2016 Blood Pressure 1: 150/78 Code: 8480-6 BMI: 44.2 Code: 01206-1 Heart Rate 1: 67 bpm Height: 5'6" SpO2: 97% Weight: 278 lbs 12/05/2016 Blood Pressure 1: 122/80 Code: 8480-6 Blood Pressure 1: 126/90 Code: 8480-6 BMI: 44.2 Code: 21522-4 Heart Rate 1: 70 bpm Height: 5'6" SpO2: 97% Weight: 278 lbs 08/30/2016 Blood Pressure 1: 134/70 Code: 8480-6 Blood Pressure 1: 134/78 Code: 8480-6 BMI: 43.9 Code: 28284-2 Heart Rate 1: 62 bpm Height: 5'6" SpO2: 98% Weight: 276 lbs 07/13/2016 Blood Pressure 1: 140/68 Code: 8480-6 BMI: 43.2 Code: 36709-4 Heart Rate 1: 59 bpm Height: 5'6" SpO2: 96% Weight: 272 lbs 06/21/2016 Blood Pressure 1: 140/70 Code: 8480-6 BMI: 43.2 Code: 84885-2 Heart Rate 1: 70 bpm Height: 5'6" SpO2: 94% Weight: 272 lbs 05/24/2016 Blood Pressure 1: 138/70 Code: 8480-6 Blood Pressure 1: 138/72 Code: 8480-6 BMI: 43.2 Code: 63738-6 Heart Rate 1: 65 bpm Height: 5'6" SpO2: 97% Weight: 272 lbs 01/24/2016 Blood Pressure 1: 122/62 Code: 8480-6 BMI: 43.1 Code: 12604-5 Heart Rate 1: 61 bpm Height: 5'6" SpO2: 97% Weight: 271 lbs 10/27/2015 Blood Pressure 1: 122/64 Code: 8480-6 BMI: 42.4 Code: 89312-8 Heart Rate 1: 58 bpm Height: 5'6" SpO2: 97% Weight: 267 lbs 09/21/2015 Blood Pressure 1: 128/70 Code: 8480-6 BMI: 43.2 Code: 29185-7 Heart Rate 1: 65 bpm Height: 5'6" SpO2: 98% Weight: 272 lbs 08/17/2015 Blood Pressure 1: 120/64 Code: 8480-6 BMI: 44.8 Code: 79196-4 Heart Rate 1: 57 bpm Height: 5'6" SpO2: 97% Weight: 282 lbs 07/20/2015 Blood Pressure 1: 144/70 Code: 8480-6 BMI: 45.3 Code: 71231-2 Heart Rate 1: 67 bpm Height: 5'6" SpO2: 95% Weight: 285 lbs 05/09/2015 Blood Pressure 1: 180/60 Code: 8480-6 Blood Pressure 2: 140/80 Code: 8480-6 04/20/2015 Blood Pressure 1: 138/64 Code: 8480-6 BMI: 45.6 Code: 44762-8 Heart Rate 1: 60 bpm Height: 5'6" SpO2: 98% Weight: 287 lbs 02/28/2015 Blood Pressure 1: 142/78 Code: 8480-6 BMI: 45.8 Code: 74066-9 Heart Rate 1: 68 bpm Height: 5'6" Weight: 288 lbs 02/14/2015 Blood Pressure 1: 142/78 Code: 8480-6 BMI: 45.3 Code: 00298-4 Heart Rate 1: 88 bpm Height: 5'6" Weight: 285 lbs 11/11/2014 Blood Pressure 1: 152/72 Code: 8480-6 Heart Rate 1: 64 bpm Weight: 282 lbs 10/04/2014 Blood Pressure 1: 140/72 Code: 8480-6 BMI: 45.6 Code: 80437-3 Heart Rate 1: 76 bpm Height: 5'6" Weight: 287 lbs 08/02/2014 Blood Pressure 1: 132/62 Code: 8480-6 BMI: 45.6 Code: 26705-5 Heart Rate 1: 64 bpm Height: 5'6" Weight: 287 lbs 06/15/2014 Blood Pressure 1: 142/62 Code: 8480-6 BMI: 44.7 Code: 27448-9 Heart Rate 1: 68 bpm Height: 5'6" SpO2: 97% Weight: 281 lbs 05/04/2014 Blood Pressure 1: 140/78 Code: 8480-6 BMI: 45.0 Code: 86609-6 Heart Rate 1: 60 bpm Height: 5'6" SpO2: 98% Weight: 283 lbs 04/19/2014 Blood Pressure 1: 130/62 Code: 8480-6 BMI: 44.7 Code: 18645-2 Heart Rate 1: 56 bpm Height: 5'6" Weight: 281 lbs 02/08/2014 Blood Pressure 1: 118/58 Code: 8480-6 BMI: 45.3 Code: 20154-5 Heart Rate 1: 60 bpm Height: 5'6" Weight: 285 lbs 01/13/2014 Blood Pressure 1: 112/52 Code: 8480-6 BMI: 44.2 Code: 53141-0 Heart Rate 1: 60 bpm Height: 5'6" Weight: 278 lbs 10/14/2013 Blood Pressure 1: 132/70 Code: 8480-6 BMI: 43.1 Code: 60990-7 Heart Rate 1: 60 bpm Height: 5'6" Weight: 271 lbs 07/01/2013 Blood Pressure 1: 158/76 Code: 8480-6 Heart Rate 1: 52 bpm Weight: 263 lbs 05/13/2013 Weight: 268 lbs 04/15/2013 Weight: 272 lbs 03/04/2013 Blood Pressure 1: 146/68 Code: 8480-6 BMI: 45.6 Code: 98176-2 Heart Rate 1: 68 bpm Height: 5'6" Weight: 287 lbs 02/04/2013 Blood Pressure 1: 140/68 Code: 8480-6 BMI: 46.1 Code: 19525-8 Heart Rate 1: 64 bpm Height: 5'6" Weight: 290 lbs 12/03/2012 Blood Pressure 1: 124/62 Code: 8480-6 BMI: 44.8 Code: 52293-3 Heart Rate 1: 64 bpm Height: 5'6" [...] 1: 146/76 Code: 8480-6 BMI: 44.7 Code: 43952-7 Heart Rate 1: 60 bpm Height: 5'6" Weight: 281 lbs 06/25/2012 Blood Pressure 1: 128/76 Code: 8480-6 BMI: 43.7 Code: 53345-6 Heart Rate 1: 72 bpm Height: 5'6" Weight: 275 lbs 06/03/2012 Blood Pressure 1: 136/62 Code: 8480-6 BMI: 43.2 Code: 27989-0 Heart Rate 1: 72 bpm Height: 5'6" Respiratory Rate: 20 bpm Weight: 272 lbs 04/24/2012 Blood Pressure 1: 116/60 Code: 8480-6 BMI: 42.3 Code: 12864-2 Heart Rate 1: 68 bpm Height: 5'6" Respiratory Rate: 16 bpm Weight: 266 lbs 04/09/2012 Blood Pressure 1: 150/82 Code: 8480-6 Heart Rate 1: 72 bpm Weight: 03/04/2012 Blood Pressure 1: 124/70 Code: 8480-6 Heart Rate 1: 72 bpm Respiratory Rate: 16 bpm Weight: 277 lbs 12/03/2011 Blood Pressure 1: 120/60 Code: 8480-6 BMI: 44.8 Code: 33709-3 Heart Rate 1: 68 bpm Height: 5'6" Respiratory Rate: 16 bpm Weight: 282 lbs 10/31/2011 Blood Pressure 1: 120/60 Code: 8480-6 BMI: 44.8 Code: 51939-8 Heart Rate 1: 74 bpm Height: 5'6" Respiratory Rate: 16 bpm Weight: 282 lbs 08/29/2011 Blood Pressure 1: 152/76 Code: 8480-6 BMI: 44.5 Code: 15997-7 Heart Rate 1: 66 bpm Height: 5'6" Respiratory Rate: 16 bpm Weight: 280 lbs 07/24/2011 Blood Pressure 1: 142/80 Code: 8480-6 BMI: 44.8 Code: 28318-0 Heart Rate 1: 66 bpm Height: 5'6" Respiratory Rate: 16 bpm Weight: 282 lbs 07/18/2011 Blood Pressure 1: 136/60 Code: 8480-6 BMI: 44.5 Code: 11370-2 Heart Rate 1: 72 bpm Height: 5'6" [...] high fiber / whole grain per day: 12/13/2016 None Annual Medicare Wellness Exam Nutrition servings of vegetables / fruit per day: 12/13/2016 None diabetes mellitus Onset of Symptom [...] when he could not remember what the dividend clerk was talking about at [facility] - pt states that he has had [...] data Encounters Encounter Performer Location Codes Date ([id number]) 63482 EST. PATIENT, LEVEL IV Diagnosis: Essential (primary) hypertension[ICD10: I10] Diagnosis: Type 2 diabetes mellitus without complications[ICD10: E11.9] Diagnosis: Mixed hyperlipidemia[ICD10: E78.2] [facility] CPT- 4: 86758 10/09/2018 ([id number]) 85583 EST. PATIENT, LEVEL IV Diagnosis: Type 2 diabetes mellitus with hyperglycemia[ICD10: E11.65] Diagnosis: Essential (primary) hypertension[ICD10: I10] Diagnosis: Low back pain[ICD10: M54.5] [facility] CPT-4: 20339 07/07/2018 ([id number]) 30411 EST. PATIENT, LEVEL IV Diagnosis: Encounter for immunization[ICD10: Z23] Diagnosis: Type 2 diabetes mellitus with diabetic polyneuropathy[ICD10: E11.42] Diagnosis: Essential (primary) hypertension[ICD10: I10] Diagnosis: Encounter for gynecological examination (general) (routine) without abnormal findings[ICD10: Z01.419] Maria Victoria Harrell MD, [facility] CPT-4: 82380 05/21/2018 ([id number]) 07852 EST. 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 PATIENT, LEVEL IV Diagnosis: Type 2 diabetes mellitus with hyperglycemia[ICD10: E11.65] Diagnosis: Essential (primary) hypertension[ICD10: I10] Diagnosis: Arthralgia of bilateral temporomandibular joint[ICD10: M26.623] Maria Victoria Harrell MD, [facility] CPT-4: 62149 11/21/2017 ([id number]) 11589 EST. PATIENT, LEVEL IV Diagnosis: Type 2 diabetes mellitus without complications[ICD10: E11.9] Diagnosis: Essential (primary) hypertension[ICD10: I10] Diagnosis: Mixed hyperlipidemia[ICD10: E78.2] [facility] Harrell MD, [facility] CPT- 4: 57731 07/29/2017 ([id number]) 45366 EST. PATIENT, LEVEL III Diagnosis: Lumbago with sciatica, right side[ICD10: M54.41] Sunitha Harrell MD, [facility] CPT-4: 72629 06/04/2017 ([id number]) 24071 EST. 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 PATIENT, LEVEL IV Diagnosis: Essential (primary) hypertension[ICD10: I10] Diagnosis: Type 2 diabetes mellitus without complications[ICD10: E11.9] Maria Victoria Harrell MD, [facility] CPT-4: 75545 12/05/2016 [id number]) 32422 EST. PATIENT, LEVEL IV Diagnosis: Essential (primary) hypertension[ICD10: I10] Diagnosis: Type 2 diabetes mellitus with hyperglycemia[ICD10: E11.65] Diagnosis: Morbid (severe) obesity due to excess calories[ICD10: E66.01] Diagnosis: Essential tremor[ICD10: G25.0] Diagnosis: Pain in right hip[ICD10: M25.551] Maria Victoria Harrell MD, [facility] CPT- 4: 82532 08/30/2016 [id number]) 41748 EST. PATIENT, LEVEL III Diagnosis: Pain in left forearm[ICD10: M79.632] Diagnosis: Dysuria[ICD10: R30.0] Sunitha Harrell MD, [facility] CPT-4: 72106 07/13/2016 [id number]) 18896 EST. PATIENT, LEVEL III Diagnosis: Type 2 diabetes mellitus with hyperglycemia[ICD10: E11.65] Diagnosis: Essential tremor[ICD10: G25.0] Diagnosis: Encounter for immunization[ICD10: Z23] Diagnosis: Essential (primary) hypertension[ICD10: I10] Maria Victoria Harrell MD, [facility] CPT-4: 51104 05/24/2016 [id number]) 98952 EST. PATIENT, LEVEL IV Diagnosis: Type 2 diabetes mellitus with hyperglycemia[ICD10: E11.65] Diagnosis: Essential (primary) hypertension[ICD10: I10] Diagnosis: Dorsalgia, unspecified[ICD10: M54.9] Maria Victoria Harrell MD, [facility] CPT- 4: 74573 01/24/2016 ([id number]) 84631 EST. PATIENT, LEVEL IV Diagnosis: Type 2 diabetes mellitus with hyperglycemia[ICD10: E11.65] Diagnosis: Essential (primary) hypertension[ICD10: I10] Diagnosis: Dorsalgia, unspecified[ICD10: M54.9] Maria Victoria Harrell MD [facility] CPT- 4: 37760 10/27/2015 ([id number]) 80477 EST. PATIENT, LEVEL III Diagnosis: Type 2 diabetes mellitus with hyperglycemia[ICD10: E11.65] SHAILA Macedo MD CPT-4: 88046 09/21/2015 ([id number]) 39583 EST. PATIENT, LEVEL IV Diagnosis: Type 2 diabetes mellitus with hyperglycemia[ICD10: E11.65] Diagnosis: Essential (primary) hypertension[ICD10: I10] Maria Victoria Harrell MD [facility] CPT-4: 56376 08/17/2015 ([id number]) 11860 EST. PATIENT, LEVEL IV Diagnosis: VACCIN FOR INFLUENZA[ICD10: Z23] Diagnosis: Type 2 diabetes mellitus with hyperglycemia[ICD10: E11.65] Diagnosis: Morbid (severe) obesity due to excess calories[ICD10: E66.01] Diagnosis: Dorsalgia, unspecified[ICD10: M54.9] Maria Victoria Harrell MD [facility] CPT- 4: 60607 07/20/2015 ([id number]) 26162 EST. PATIENT, LEVEL IV Diagnosis: Diabetes mellitus type 2, uncontrolled[ICD9: 250.02] Diagnosis: ESSENTIAL HYPERTENSION[ICD9: 401.9] Diagnosis: MORBID OBESITY[ICD9: 278.01] Diagnosis: Peripheral neuropathic pain[ICD9: 356.9] Diagnosis: Diabetic neuropathy[ICD9: 250.60] Maria Victoria Harrell MD [facility] CPT- 4: 68908 04/20/2015 ([id number]) Miscellaneous no charge Diagnosis: Cerumen impaction[ICD9: 380.4] [facility] Harrell MD [facility] CPT-4: 07519 02/28/2015 ([id number]) 90236 EST. PATIENT, LEVEL IV Diagnosis: Diabetes mellitus type 2, uncontrolled[ICD9: 250.02] Diagnosis: ESSENTIAL HYPERTENSION[ICD9: 401.9] SHAILA Macedo MD CPT- 4: 09123 02/14/2015 ([id number]) 42319 EST. PATIENT, LEVEL III Diagnosis: Diabetes mellitus type 2, uncontrolled[ICD9: 250.02] SHAILA Macedo MD CPT-4: 17765 11/11/2014 ([id number]) 04084 EST. PATIENT, LEVEL IV Diagnosis: ESSENTIAL HYPERTENSION[ICD9: 401.9] Diagnosis: DIABETES TYPE II[ICD9: 250.00] Diagnosis: Esophageal reflux[ICD9: 530.81] Diagnosis: DYSPHAGIA NEC[ICD9: 787.29] Maria Victoria Harrell MD [facility] CPT-4: 64879 10/04/2014 ([id number]) 51420 EST. PATIENT, LEVEL IV Diagnosis: DIABETES TYPE II[ICD9: 250.00] Diagnosis: ESSENTIAL HYPERTENSION[ICD9: 401.9] Diagnosis: BPH (benign prostatic hyperplasia)[ICD9: 600.00] Maria Victoria Harrell MD [facility] CPT-4: 46773 08/02/2014 ([id number]) 67127 EST. PATIENT, LEVEL III Diagnosis: Enlarged prostate[ICD9: 600.00] Maria Victoria Harrell MD [facility] CPT-4: 92857 06/15/2014 ([id number]) 85735 EST. PATIENT, LEVEL III Diagnosis: Right hip pain[ICD9: 719.45] Diagnosis: BACKACHE[ICD9: 724.5] Diagnosis: Sacroiliitis[ICD9: 720.2] Sunitha Harrell MD [facility] CPT-4: 47741 05/04/2014 ([id number]) 69970 EST. PATIENT, LEVEL IV Diagnosis: DM W/O COMPLICATION TYPE II, UNCONTROLLED[ICD9: 250.02] Diagnosis: ESSENTIAL HYPERTENSION[ICD9: 401.9] Maria Victoria Harrell MD [facility] CPT- 4: 30309 04/19/2014 ([id number]) 97642 EST. PATIENT, LEVEL IV Diagnosis: Mild cognitive impairment[ICD9: 331.83] Diagnosis: Nightmares[ICD9: 307.47] Diagnosis: Sleep apnea[ICD9: 780.57] Maria Victoria Harrell MD [facility] CPT-4: 61882 02/08/2014 ([id number]) 72107 EST. PATIENT, LEVEL III Diagnosis: DM W/O COMPLICATION TYPE II, UNCONTROLLED[ICD9: 250.02] Maria Victoria Harrell MD [facility] CPT-4: 15347 01/13/2014 ([id number]) 72601 EST. 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 PATIENT, LEVEL IV Diagnosis: DIABETES TYPE II[SNOMED: 464470557] Diagnosis: ESSENTIAL HYPERTENSION[SNOMED: 20757923] Diagnosis: Flat feet[ICD9: 734] [facility] Victoria Harrell MD [facility] CPT-4: 29573 07/01/2013 ([id number]) Miscellaneous no charge Diagnosis: DM W/O COMPLICATION TYPE II, UNCONTROLLED[SNOMED: 15423335] Diagnosis: MORBID OBESITY[ICD9: 278.01] Maria Victoria Harrell MD [facility] CPT-4: 29910 05/13/2013 ([id number]) Miscellaneous no charge Diagnosis: MORBID OBESITY[ICD9: 278.01] Maria Victoria Harrell MD, [facility] CPT-4: 70249 04/15/2013 ([id number]) 48089 EST. PATIENT, LEVEL III Diagnosis: DM W/O COMPLICATION TYPE II, UNCONTROLLED[SNOMED: 80245730] Diagnosis: Dietary restriction[ICD9: V65.3] Diagnosis: Morbid obesity with BMI of 40.0-44.9, adult[ICD9: 278.01] Maria Victoria Harrell MD, [facility] CPT-4: 18029 03/04/2013 ([id number]) 50188 EST. PATIENT, LEVEL IV Diagnosis: DM W/O COMPLICATION TYPE II, UNCONTROLLED[SNOMED: 78428651] Diagnosis: ENTHESOPATHY OF HIP[ICD9: 726.5] Diagnosis: BACKACHE[ICD9: 724.5] Maria Victoria Harrell MD, [facility] CPT-4: 77426 02/04/2013 [id number]) 16211 EST. PATIENT, LEVEL III Diagnosis: DM W/O COMPLICATION TYPE II, UNCONTROLLED[SNOMED: 65512056] Maria Victoria Harrell MD, [facility] CPT-4: 46917 12/03/2012 ([id number]) 73448 EST. PATIENT, LEVEL III Diagnosis: Tinnitus[ICD9: 388.30] Diagnosis: Cerumen impaction[ICD9: 380.4] Sunitha Harrell MD, [facility] CPT-4: 76704 10/14/2012 ([id number]) 71938 EST. PATIENT, LEVEL III Diagnosis: ENTHESOPATHY OF HIP[ICD9: 726.5] Diagnosis: JOINT PAIN-PELVIS[ICD9: 719.45] Maria Victoria Harrell MD, [facility] CPT-4: 13894 09/29/2012 82842 EST. PATIENT, LEVEL II Diagnosis: Right hip pain[ICD9: 719.45] Diagnosis: Bursitis of hip, right[ICD9: 726.5] Diagnosis: DM W/O COMPLICATION TYPE II, UNCONTROLLED[SNOMED: 59517896] Sunitha Harrell MD, [facility] CPT-4: 86157 09/25/2012 ([id number]) 90438 EST. PATIENT, LEVEL III Diagnosis: DM W/O COMPLICATION TYPE II, UNCONTROLLED[SNOMED: 03007317] Maria Victoria Harrell MD, [facility] CPT-4: 91895 08/27/2012 ([id number]) 30677 EST. PATIENT, LEVEL III Diagnosis: Diabetes mellitus out of control[SNOMED: 65793070] Maria Victoria Harrell MD, [facility] CPT-4: 30726 06/25/2012 ([id number]) 63583 EST. PATIENT, LEVEL III Diagnosis: DM W/O COMPLICATION TYPE II, UNCONTROLLED[SNOMED: 97087633] Diagnosis: ESSENTIAL HYPERTENSION[SNOMED: 62884524] Maria Victoria Harrell MD, [facility] CPT-4: 38581 06/03/2012 ([id number]) 90650 EST. PATIENT, LEVEL III Diagnosis: DM W/O COMPLICATION TYPE II, UNCONTROLLED[SNOMED: 72783325] Diagnosis: Back pain[ICD9: 724.5] Maria Victoria Harrell MD, [facility] CPT-4: 28406 04/24/2012 ([id number]) 00513 EST. PATIENT, LEVEL IV Diagnosis: BACKACHE[ICD9: 724.5] Diagnosis: MORBID OBESITY[ICD9: 278.01] Diagnosis: Depression[ICD9: 311] Maria Victoria Harrell MD, [facility] CPT-4: 69885 04/09/2012 ([id number]) 22825 EST. PATIENT, LEVEL IV Diagnosis: Diabetes mellitus type 2, uncontrolled[SNOMED: 04210775] Diagnosis: ESSENTIAL HYPERTENSION[SNOMED: 97966956] Maria Victoria Harrell MD [facility] CPT-4: 53384 03/04/2012 ([id number]) 08424 EST. PATIENT, LEVEL IV Diagnosis: DM W/O COMPLICATION TYPE II, UNCONTROLLED[SNOMED: 83214497] Diagnosis: MORBID OBESITY[ICD9: 278.01] Maria Victoria Harrell MD [facility] CPT-4: 00049 12/03/2011 ([id number]) 12499 EST. PATIENT, LEVEL IV Diagnosis: DM W/O COMPLICATION TYPE II, UNCONTROLLED[SNOMED: 03869431] Diagnosis: ESSENTIAL HYPERTENSION[SNOMED: 68271822] Diagnosis: Hyperlipidemia[ICD9: 272.4] Diagnosis: Morbid obesity[ICD9: 278.01] Maria Victoria Harrell MD, [facility] CPT-4: 76230 10/31/2011 ([id number]) 48309 EST. PATIENT, LEVEL IV Diagnosis: ESSENTIAL HYPERTENSION[SNOMED: 71247001] Diagnosis: DM W/O COMPLICATION TYPE II, UNCONTROLLED[SNOMED: 38920791] Diagnosis: MORBID OBESITY[ICD9: 278.01] Maria Victoria Harrell MD, [facility] CPT-4: 25758 08/29/2011 [id number] EST. PATIENT, LEVEL IV Diagnosis: Diabetes mellitus type 2, uncontrolled[SNOMED: 45344722] Diagnosis: ESSENTIAL HYPERTENSION[SNOMED: 02502761] Diagnosis: Actinic keratosis[ICD9: 702.0] Maria Victoria Harrell MD, [facility] CPT-4: 45157 07/18/2011 Plan of Care Planned Activity Notes Codes Status Date Patient Education: Patient Medication Summary Completed 01/07/2019 Care Plan: Cbc With Differential Pending 01/07/2019 Care Plan: Comp Metabolic Pending 01/07/2019 Care Plan: Tsh Pending 01/07/2019 Care Plan: Lipid Pending 01/07/2019 Care Plan: [facility] [id number] Pending 01/07/2019 App[facility]ment[phone] [id number] (15 min) Moderate 11/10/2018 Visit Plan: [...] 10/09/2018 Appointment: [facility] Victoria [phone] [id number] ([facility] min) Complex 10/09/2018 Patient Education: Patient Medication Summary Completed 10/09/2018 Patient Education: Diabetes Completed 10/09/2018 Patient Education: Cholesterol Management Completed 10/09/2018 Care Plan: Referral Order SNOMED-CT : [id number] Pending 10/09/2018 Patient Education: Patient Medication Summary [...] Mai 07/07/2018 Appointment: Maria Victoria Harrell [facility]el[phone] [facility] [place] (15 min) Moderate 07/07/2018 Patient [...] disease. 05/21/2018 Appointment: Maria Victoria Harrell [facility]Ptel[phone] [facility] (15 min) Moderate 05/21/2018 Patient Education: Patient [...] restriction. 03/06/2018 Appointment: Maria Victoria Harrell [facility]Ptel[phone] [facility] (15 min) Moderate 03/06/2018 Patient Education: Patient Medication Summary Completed 03/06/2018 Patient Education: Obesity Completed 03/06/2018 Patient Education: Patient Medication Summary Completed 03/03/2018 Care Plan: %Hba1C LOINC : 67043-8 Pending 03/03/2018 Visit Plan: Medicare Exam - [...] Summary Completed 12/24/2017 Appointment: [facility] Moran [facility]el[id number] [facility] - Annual Wellness Visit 12/19/2017 Visit [...] 11/21/2017 Appointment: Maria Victoria Harrell [facility]Ptel[phone] [facility] (15 min) Moderate 11/21/2017 Patient Education: [...] medications. 07/29/2017 Appointment: Maria Victoria Harrell WPtel: [phone] [facility] (15 min) Moderate 07/29/2017 Patient Education: Patient Medication Summary Completed 07/29/2017 Patient Education: Obesity Completed 07/29/2017 Visit Plan: Skin tag removed - pt tolerated procedure well - Wound Instructions - Pt was instructed to keep the wound clean, wash with antibacterial soap, use triple antibiotic ointment, call if redness, pustular drainage, or any other acute concerns. 07/02/2017 Appointment: Zunilda Carrillo [facility]Ptel[phone] (30 min) Complex 07/02/2017 Patient Education: Patient Medication Summary Completed 07/02/2017 Appointment: Injection 06/28/2017 Patient Education: Patient Medication Summary Completed 06/28/2017 Visit Plan: Sciatica- exercises discussed with the patient, pt to continue with antiinflammatories. Pt is to call if the symptoms do not improve or if they worsen. Kenalog injection today in the office. 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 Hypertension - well controlled - continue with current medications, continue with no added salt diet. Pt has been encouraged to exercise daily. The pt has been advised to call the office if there are any acute concerns about change in blood pressure readings at home. 04/03/2017 Appointment: Maria Victoria Harrell WPtel: [facility] [place] (15 min) Moderate 04/03/2017 Patient Education: Patient [...] care surrogate. 12/13/2016 Appointment: Sunitha Moran [facility]Ptel[phone] [facility] - Annual Wellness Visit 12/13/2016 Patient Education: Patient Medication Summary Completed 12/13/2016 Care Plan: Referral Order SNOMED-CT : [id number] Pending 12/13/2016 Visit Plan: Hypertension - well [...] controlled. 12/05/2016 Appointment: Maria Victoria Harrell WPtel[phone] [facility] (15 min) Moderate 12/05/2016 Patient Education: Patient Medication Summary Completed 12/05/2016 Patient Education: Obesity Completed 12/05/2016 Care Plan: CT ABD & PELVIS W/O CONTRAST LOINC : 61939-7 Pending 12/05/2016 Patient Education: Patient Medication Summary [...] care 08/30/2016 Appointment: Maria Victoria Harrell WPtel: [phone] [facility] [place] (15 min) Moderate 08/30/2016 Patient Education: Patient Medication Summary Completed 08/30/2016 Patient Education: Obesity Completed 08/30/2016 Patient Education: Hypertension Completed 08/30/2016 Patient Education: Patient Medication Summary Completed 08/23/2016 Visit Plan: Left forearm pain-use voltaren gel as needed-xray forearm for further evaluation UA negative-patient instructed to increase po fluids-call if symptoms do not resolve 07/13/2016 Appointment: Sunitha Moran WPtel: [phone] [place] (10 min) Simple 07/13/2016 Patient Education: Patient [...] disease process. 06/21/2016 Appointment: Sunitha Moran WPtel: [phone] [phone] [place] (30 min) Complex 06/21/2016 Patient Education: Patient Medication Summary Completed 06/21/2016 Appointment: Sunitha Moran WPtel: [phone] [phone] [place] (30 min) Complex 06/15/2016 Visit Plan: Hypertension [...] improve. 01/24/2016 Appointment: Maria Victoria Harrell WPtel[phone] [facility] (15 min) Moderate 01/24/2016 Patient Education: Patient [...] improve. 10/27/2015 Appointment: Maria Victoria Harrell WPtel: [address] [place] [address] (15 min) Moderate 10/27/2015 Patient Education: Patient [...] insurance how much this will cost you fpc decrease toujeo to 40 units daily increase novolin to 8units in the morning, 10 units at lunch and 8 units at supper 09/21/2015 Appointment: Maria Victoria Harrell WPtel[phone] [facility] (15 min) Moderate 09/21/2015 Patient Education: Patient [...] home. 08/17/2015 Appointment: Maria Victoria Harrell WPtel: [phone] [facility] (15 min) Moderate 08/17/2015 Patient Education: Patient [...] belviq 07/20/2015 Appointment: Maria Victoria Harrell WPtel: [phone] [facility] (15 min) Moderate 07/20/2015 Patient Education: [...] shoes. 04/20/2015 Appointment: Maria Victoria Harrell WPtel: [facility] (15 min) Moderate 04/20/2015 Patient Education: [...] home. 02/14/2015 Appointment: Maria Victoria Harrell WPtel: [phone] [facility] Follow up 02/14/2015 Patient Education: Patient Medication [...] control. 11/11/2014 Appointment: Maria Victoria Harrell WPtel: [phone] [facility] Follow up 11/11/2014 Patient Education: Patient Medication Summary Completed 11/11/2014 Appointment: Maria Victoria Harrell WPtel: [phone] [facility] Follow up 11/04/2014 Visit Plan: Esophageal [...] home. 10/04/2014 Appointment: Maria Victoria Harrell WPtel: [facility] Follow up 10/04/2014 Patient Education: Patient Medication Summary Completed 10/04/2014 Patient Education: Hypertension Completed 10/04/2014 Appointment: Maria Victoria Harrell WPtel: [facility] Follow up 08/19/2014 Visit Plan: Diabetes Mellitus [...] avodart 08/02/2014 Appointment: Maria Victoria Harrell WPtel: [address] [place], [place] [phone] Sick 08/02/2014 Patient Education: Patient Medication Summary Completed 08/02/2014 Patient Education: Hypertension Completed 08/02/2014 Visit Plan: Enlarged prostate with decreased urine flow - recommended that the patient start on tamsulosin 0.4mg daily - will need to start him on this in about 2-3 weeks. Check PSA in 2-3 weeks. 06/15/2014 Appointment: Maria Victoria Harrell WPtel: [facility] Follow up 06/15/2014 Patient Education: Patient Medication Summary Completed 06/15/2014 Appointment: Maria Victoria Harrell WPtel: [phone] [facility] [place] Injection 06/03/2014 Patient Education: Patient [...] - pt to see this Opthamologist in [place] - May 25. 04/19/2014 Appointment: Maria Victoria Harrell WPtel: [phone] [facility] Follow up 04/19/2014 Patient Education: Patient Medication [...] settings. 02/08/2014 Appointment: Maria Victoria Harrell WPtel: [phone] [facility] Follow up 02/08/2014 Patient Education: Patient Medication [...] shoes. 01/13/2014 Appointment: Maria Victoria Harrell WPtel: [facility] Follow up 01/13/2014 Patient Education: Patient Medication [...] not been as physically active over the iday either. Pt is to bring in his FSBS in a few months. Morbid Obesity - pt is aware of the need to exercise and continue to work on weight loss. Hand pain - specifically right tumb pain - recommended referral to Dr. Fine at [facility] the [address] [place] [address]. 10/14/2013 Patient Education: Patient Medication Summary Completed [...] support. 07/01/2013 Appointment: Maria Victoria Harrell WPtel: [phone] [facility] Follow up 07/01/2013 Patient Education: Patient Medication Summary Completed 07/01/2013 Patient Education: Hypertension Completed 07/01/2013 Appointment: Maria Victoria Harrell WPtel: [phone] [facility] [place] Other 05/13/2013 Patient Education: Patient Medication Summary Completed 05/13/2013 Appointment: Maria Victoria Harrell WPtel: [phone] [facility] Other 04/15/2013 Patient Education: Patient Medication Summary [...] loss. 03/04/2013 Appointment: Maria Victoria Harrell WPtel: [phone] [facility] Follow up 03/04/2013 Patient Education: Patient Medication [...] body. 02/04/2013 Appointment: Maria Victoria Harrell WPtel: [facility] Follow up 02/04/2013 Patient Education: Patient Medication [...] bedtime. 12/03/2012 Appointment: Maria Victoria Harrell WPtel: [facility] Follow up 12/03/2012 Patient Education: Patient Medication Summary Completed 12/03/2012 Visit Plan: Tinnitus-cerumen impaction-cerumen adhered to left TM-discussed using sweet oil nightly for the next week and call if symptoms have not improved. Patient verbalized understanding of plan . 10/14/2012 Appointment: Sunitha Moran WPtel: [phone] Sick 10/14/2012 Patient Education: Patient Medication Summary Completed 10/14/2012 Visit Plan: Arthritis- occasionally uncontrolled symptoms- recommend pt to take antiinflammatory as directed for pain control. Use tylenol for break through pain symptoms. 09/29/2012 Appointment: Maria Victoria Harrell WPtel: [phone] [facility] [place] Other 09/29/2012 Patient Education: Patient Medication Summary [...] blood sugars 09/25/2012 Appointment: Sunitha Moran WPtel: [phone] [phone] [place] Other 09/25/2012 Patient Education: Patient Medication [...] DAILY. 08/27/2012 Appointment: Maria Victoria Harrell WPtel: [phone] [facility] Follow up 08/27/2012 Patient Education: Patient Medication [...] made. 06/25/2012 Appointment: Maria Victoria Harrell WPtel: [phone] [facility] Follow up 06/25/2012 Patient Education: Patient Medication [...] night. 06/03/2012 Appointment: Maria Victoria Harrell WPtel: [phone] [facility] Follow up 06/03/2012 Patient Education: Patient Medication [...] pain. 04/24/2012 Appointment: Maria Victoria Harrell WPtel: [phone] [facility] Follow up 04/24/2012 Patient Education: Patient Medication [...] improve. 04/09/2012 Appointment: Maria Victoria Harrell WPtel: [facility] Other 04/09/2012 Patient Education: Patient Medication Summary Completed 04/09/2012 Patient Education: .Amazing charts Exercise for Sciatica Completed 04/09/2012 Appointment: Sunitha Moran WPtel: [phone] [id number] Other 03/13/2012 Visit Plan: Diabetes Mellitus - [...] 03/04/2012 Appointment: Maria Victoria Harrell WPtel: [phone] [facility] Other 03/04/2012 Patient Education: Patient Medication Summary [...] reasons for his chest pains/fatigue. 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 10/31/2011 Appointment: Maria Victoria Harrell [facility]Ptel: [phone] Other 10/31/2011 Patient Education: Patient Medication Summary [...] check. 08/29/2011 Appointment: Maria Victoria Harrell WPtel: [facility] Other 08/29/2011 Patient Education: Patient Medication Summary Completed 08/29/2011 Patient Education: High Blood Pressure: Essential Hypertension Completed 08/29/2011 Visit Plan: left index finger irritated actinic keratosis removed actinic keratosis removed from dorsum of hand as well and in web of the 4th digit 07/24/2011 Appointment: Maria Victoria Hrarell WPtel: [phone] [facility] [facility] Procedure 07/24/2011 Patient Education: Patient [...] daily. 07/18/2011 Appointment: Maria Victoria Harrell WPtel: [address] [place], [place] [address] [facility] 07/18/2011 Patient Education: Patient Medication Summary Completed 07/18/2011 Patient Education: High Blood Pressure: Essential Hypertension Completed 07/18/2011 Referral: Jose Manuel Referral Appointment Requested Referral: [facility] Referral Appointment Requested Referral: Kiran Laird MD WPtel: Referral Completed Instructions Comment . Tinnitus-cerumen impaction-cerumen adhered to left TM-discussed using sweet oil nightly for the next week and call if symptoms have not improved. Patient verbalized understanding of plan . apply the efudex (florouracil) to the skin [...] are starting to become less controlled. . Diabetes Mellitus - Uncontrolled - per [...] a component of healthy back and body. trujeo - new insulin dose would be 60 units daily Belviq for weight loss - 10mg twice daily - see cost at [facility] . Diabetes Mellitus - Uncontrolled - per [...] symptoms worsen - also recommended diabetic shoes. VIMOVO 1 TAB TWICE DAILY . Trigger [...] back Essential tremor - supportive care . Skin tag removed - pt tolerated procedure well - Wound Instructions - Pt was instructed to keep the wound clean, wash with antibacterial soap, use triple antibiotic ointment, call if redness, pustular drainage, or any other acute concerns. . Sciatica- exercises discussed with the patient, pt to continue with antiinflammatories. Pt is to call if the symptoms do not improve or if they worsen. Kenalog injection today in the office. . Low back pain- the patient was [...] and call if symptoms do not improve. decrease toujeo to 25 units next week [...] normal liver response to medications. . Diabetes Mellitus - Uncontrolled - per [...] further investigative studies planned by his current linoleum layer helper. Pt is to INCREASE HIS LANTUS TO [...] INCREASE HIS LANTUS TO 20 UNITS DAILY. increase insulin to 25 units bid. Diabetes [...] necessary to obtain more profound weight loss. . Diabetes Mellitus - controlled - per [...] in blood pressure readings at home. . 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 Hypertension - well controlled - continue with current medications, continue with no added salt diet. Pt has been encouraged to exercise daily. The pt has been advised to call the office if there are any acute concerns about change in blood pressure readings at home. . Diabetes Mellitus - Uncontrolled - per [...] of only 3 units increase was made. Dr. Mai at [facility] - Cardiothoracic surgeon. . Hypertension - well [...] would like to consider Dr. Mai . Diabetes Mellitus - Uncontrolled - per [...] readings at home. BPH - start avodart . left index finger irritated actinic keratosis [...] with adjustments of his CPAP settings. . Hypertension - well controlled - continue [...] is worsening or does not improve. . Sacroilitis-right hip pain-sciatica - back exercises discussed with the patient, pt to continue with antiinflammatories. Pt is to call if the symptoms do not improve or if they worsen. Kenalog injection today in the office for acute symtpoms. . 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 . Hypertension - well controlled - continue [...] symptoms - no treatment at this time regular insulin 5 units with meals increase [...] sites, pt to call if not improving. glucosamine and chondroitin over the counter supplement [...] is worsening or does not improve. . Esophageal Reflux - the patient has [...] - pt to see this Opthamologist in [place] - May 25. BRING IN THE GLUCOMETER [...] flat feet - recommended better arch support. joint juice, joint ease, glucosamine and chondroiton [...] - recommended referral to Dr. Fine at [facility] - Dr. Jhon Preciado [...] assure normal liver response to medications. . Joint Injection - Pt was given [...] in blood sugars. Otherwise, blood sugars . Diabetes Mellitus - Uncontrolled - per [...] 10 units subcutaneously once daily at night. 5 units of insulin at Breakfast, 8 [...] in blood pressure readings at home. . Ears clear today-no need for further treatment or ear lavage today
--- OUTSIDE RECORDS SUMMARY | 2019-01-23 15:05 | XMS REPORT | CCD ---
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 Name Role Phone PP Unavailable CCM Unavailable Summary Purpose Interface Exchange Insurance Providers Payer name Policy type / Coverage type Covered green party ID Effective Begin Date Effective End Date WPS Medicare Part B Medicare Part B [id number] Unknown [facility] Medicare Part B [id number] Unknown Family history Nephew Diagnosis Age At [...] Unknown Retired 07/18/[address]: 957088735 Never smoker 07/18/[address]: 199235428 Never drinks alcohol 07/18/2011 Has the patient [...] Fill Instructions finasteride 1 mg tablet RxNorm: 846965 1 Tablet(s) PO daily 10/28/2018 01/20/2020 Active irbesartan 300 mg tablet RxNorm: 999344 1 Tablet(s) PO daily 10/28/2018 01/20/2020 Active lovastatin 20 mg tablet RxNorm: 228052 1 Tablet(s) PO QHS 10/28/2018 01/20/2020 Active metformin 1,000 mg tablet RxNorm: 615371 1 Tablet(s) PO BID 10/28/2018 01/20/2020 Active Toujeo SoloStar U-300 Insulin 300 unit/mL (1.5 mL) subcutaneous pen RxNorm: 9059860 30 Unit(s) SQ daily 10/09/2018 01/07/2019 Inactive 90 day supply needle (disp) 31 gauge x 5/16" RxNorm: 1 Miscellaneous TID 02/10/2018 01/07/2019 Inactive finasteride 1 mg tablet RxNorm: 076186 1 Tablet(s) PO daily 12/25/2017 12/24/2017 Inactive D/C dutasteride finasteride 1 mg tablet RxNorm: 090732 1 Tablet(s) PO daily 12/25/2017 10/27/2018 Inactive D/C dutasteride Novolin R Regular U-100 Insulin 100 unit/mL injection solution RxNorm: 284492 10 Unit(s) Inj QAM 12 units at lunch and 10 units at supper 11/25/2017 09/22/2018 Inactive amoxicillin 500 mg capsule RxNorm: 191627 1 Capsule(s) PO QID 11/21/2017 11/30/2017 Inactive naproxen 500 mg tablet RxNorm: 411946 1 Tablet(s) PO BID 11/21/2017 12/04/2017 Inactive Novolin R Regular U-100 Insulin 100 unit/mL injection solution RxNorm: 465583 8 10 Unit(s) Inj QAM 12 units at lunch and 10 units at supper 11/21/2017 11/24/2017 Inactive Insulin Syringe 0.3 mL 29 X 5/16" RxNorm: 1 injection SQ TID 10/01/2017 01/07/2019 Inactive Voltaren 1 % topical gel RxNorm: 015956 4 Gram(s) TOP QID 09/27/2017 12/20/2018 Inactive [SAVINGS FOR NON-COVERED DRUGS -- BIN:[id number], PCN: ASPROD1, Group: XXXXX, ID# [id number], Questions: . THIS IS NOT INSURANCE.] [employer] Blood Glucose System RxNorm: 1 test Miscellaneous QID insulin dependent diabetes 09/27/2017 09/21/2018 Inactive Protonix 40 mg tablet,delayed release RxNorm: 816301 1 Tablet(s) PO daily 09/27/2017 12/20/2018 Inactive Toujeo SoloStar U-300 Insulin 300 unit/mL (1.5 mL) subcutaneous pen RxNorm: 9514218 45 Unit(s) SQ daily 09/27/2017 10/08/2018 Inactive 90 day supply lovastatin 20 mg tablet RxNorm: 325074 1 Tablet(s) PO QHS 09/27/2017 10/27/2018 Inactive Insulin Syringe 0.3 mL 29 X 5/16" RxNorm: 1 injection SQ BID 09/27/2017 09/30/2017 Inactive irbesartan 300 mg tablet RxNorm: 842709 1 Tablet(s) PO daily 09/27/2017 10/27/2018 Inactive Novolin R 100 unit/mL injection solution RxNorm: 396249 8 Unit(s) Inj QAM 10 units at lunch and 8 units at supper 09/27/2017 11/20/2017 Inactive dutasteride 0.5 mg capsule RxNorm: 275790 1 Capsule(s) PO daily 09/27/2017 12/24/2017 Inactive metformin 1,000 mg tablet RxNorm: 020269 1 Tablet(s) PO BID 09/27/2017 10/27/2018 Inactive magnesium oxide 400 mg tablet RxNorm: 850695 1 Tablet(s) PO daily 09/27/2017 12/20/2018 Inactive Voltaren 1 % topical gel RxNorm: 352947 4 Gram(s) TOP QID 07/23/2017 09/26/2017 Inactive [SAVINGS FOR NON-COVERED DRUGS -- BIN:[id number], PCN: ASPROD1, Group: XXXXX, ID# [id number], Questions: . THIS IS NOT INSURANCE.] Bactrim DS 800 mg-160 mg tablet RxNorm: 512494 1 Tablet(s) PO BID 07/02/2017 07/08/2017 Inactive Kenalog 40 mg/mL suspension for injection RxNorm: 8927354 1 Milliliter(s) Inj 06/04/2017 06/04/2017 Inactive Efudex 5 % topical cream RxNorm: 966726 1 TOP BID 12/05/2016 12/14/2016 Inactive Avapro 300 mg tablet RxNorm: 785151 Tablet(s) TAKE 1 TABLET BY MOUTH ONCE DAILY. 09/21/2016 09/15/2017 Inactive Toujeo SoloStar 300 unit/mL (1.5 mL) subcutaneous insulin pen RxNorm: 1689397 45 Unit(s) SQ daily 09/21/2016 09/15/2017 Inactive 90 day supply Novolin R 100 unit/mL injection solution RxNorm: 826179 8 Unit(s) Inj QAM 10 units at lunch and 8 units at supper 09/21/2016 09/15/2017 Inactive metformin 1,000 mg tablet RxNorm: 169099 Tablet(s) TAKE 1 TABLET BY MOUTH TWICE DAILY AFTER MEALS 09/21/2016 09/15/2017 Inactive lovastatin 20 mg tablet RxNorm: 024178 Tablet(s) TAKE ONE TABLET BY MOUTH ONCE DAILY. 09/21/2016 09/15/2017 Inactive dutasteride 0.5 mg capsule RxNorm: 260370 1 Capsule(s) PO daily 09/21/2016 09/15/2017 Inactive Toujeo SoloStar 300 unit/mL (1.5 mL) subcutaneous insulin pen RxNorm: 0713567 45 Unit(s) SQ daily 06/27/2016 09/20/2016 Inactive Kenalog 40 mg/mL suspension for injection RxNorm: 3684404 1 Milliliter(s) Inj 06/21/2016 06/21/2016 Inactive Toujeo SoloStar 300 unit/mL (1.5 mL) subcutaneous insulin pen RxNorm: 0994784 40 Unit(s) SQ daily 05/24/2016 06/26/2016 Inactive Novolin R 100 unit/mL injection solution RxNorm: 944806 8 Unit(s) Inj QAM 10 units at lunch and 8 units at supper 05/24/2016 09/20/2016 Inactive Bactrim DS 800 mg-160 mg tablet RxNorm: 868047 1 Tablet(s) PO BID 10/03/2015 01/31/2016 Inactive dutasteride 0.5 mg capsule RxNorm: 332803 1 Capsule(s) PO daily 09/26/2015 09/19/2016 Inactive dutasteride 0.5 mg capsule RxNorm: 870858 1 Capsule(s) PO daily 09/26/2015 09/25/2015 Inactive Avodart 0.5 mg capsule RxNorm: 128015 1 Capsule(s) PO QPM 09/21/2015 09/25/2015 Inactive Avapro 300 mg tablet RxNorm: 933248 Tablet(s) TAKE 1 TABLET BY MOUTH ONCE DAILY. 09/21/2015 09/14/2016 Inactive Generic For:AVAPRO 300MG 08/26/2015 9:53:42 AM lovastatin 20 mg tablet RxNorm: 643636 1 Tablet(s) TAKE ONE TABLET BY MOUTH ONCE DAILY. 09/21/2015 09/20/2016 Inactive Generic For:*MEVACOR 20MG 10/06/2014 12:16:37 PM Novolin R 100 unit/mL injection solution RxNorm: 927273 5 Unit(s) Inj QAM 8 units at lunch and 5 units at supper 09/21/2015 05/23/2016 Inactive metformin 1,000 mg tablet RxNorm: 780283 Tablet(s) TAKE 1 TABLET BY MOUTH TWICE DAILY AFTER MEALS 09/21/2015 09/20/2016 Inactive Generic For:*GLUCOPHAGE 1000MG 10/18/2014 5:26:11 PM Toujeo SoloStar 300 unit/mL (1.5 mL) subcutaneous insulin pen RxNorm: 4764290 60 Unit(s) SQ daily 09/21/2015 05/23/2016 Inactive 3 month supply DX 250.02 also needs pen needles to use daily dx 250.02 Novolin R 100 unit/mL injection solution RxNorm: 539338 5 Unit(s) Inj QAM 8 units at lunch and 5 units at supper 09/07/2015 09/20/2015 Inactive lovastatin 20 mg tablet RxNorm: 837897 Tablet(s) TAKE ONE TABLET BY MOUTH ONCE DAILY. 09/07/2015 09/20/2015 Inactive Generic For:*MEVACOR 20MG 10/06/2014 12:16:37 PM metformin 1,000 mg tablet RxNorm: 087363 Tablet(s) TAKE 1 TABLET BY MOUTH TWICE DAILY AFTER MEALS 09/07/2015 09/20/2015 Inactive Generic For:*GLUCOPHAGE 1000MG 10/18/2014 5:26:11 PM Toujeo SoloStar 300 unit/mL (1.5 mL) subcutaneous insulin pen RxNorm: 1979500 60 Unit(s) SQ daily 09/07/2015 09/20/2015 Inactive 3 month supply DX 250.02 also needs pen needles to use daily dx 250.02 Avapro 300 mg tablet RxNorm: 368565 TAKE 1 TABLET BY MOUTH ONCE DAILY. 08/26/2015 09/20/2015 Inactive Generic For:AVAPRO 300MG 08/26/2015 9:53:42 AM Avodart 0.5 mg capsule RxNorm: 763776 1 Capsule(s) PO QPM 08/17/2015 09/20/2015 Inactive Novolin R 100 unit/mL injection solution RxNorm: 913906 5 Unit(s) Inj QAM 8 units at lunch and 5 units at supper 08/17/2015 09/06/2015 Inactive [employer] Blood Glucose System RxNorm: 1 test Miscellaneous QID insulin dependent diabetes 08/17/2015 08/10/2016 Inactive Avodart 0.5 mg capsule RxNorm: 879166 1 Capsule(s) PO QPM 08/14/2015 08/16/2015 Inactive Novolin R 100 unit/mL injection solution RxNorm: 299849 5 Unit(s) Inj TID with meals 07/20/2015 08/16/2015 Inactive Toujeo SoloStar 300 unit/mL (1.5 mL) subcutaneous insulin pen RxNorm: 8939185 60 Unit(s) SQ daily 07/20/2015 09/06/2015 Inactive one month supply DX 250.02 also needs pen needles to use daily dx 250.02 Bactrim DS 800 mg-160 mg tablet RxNorm: 990543 1 Tablet(s) PO BID 05/09/2015 05/15/2015 Inactive Bactrim DS 800 mg-160 mg tablet RxNorm: 731858 1 Tablet(s) PO BID 05/09/2015 05/08/2015 Inactive Bactrim DS 800 mg-160 mg tablet RxNorm: 685666 1 Tablet(s) PO BID 05/09/2015 05/08/2015 Inactive Toujeo SoloStar 300 unit/mL (1.5 mL) subcutaneous insulin pen RxNorm: 1771466 45u qdx3 days then 50u qdx 5 days then if fsbs >180 55u qd Unit(s) SQ daily 05/02/2015 07/19/2015 Inactive one month supply DX 250.02 also needs pen needles to use daily dx 250.02 Toujeo SoloStar 300 unit/mL (1.5 mL) subcutaneous insulin pen RxNorm: 7941859 45u qdx3 days then 50u qdx 5 days then if fsbs >180 55u qd Unit(s) SQ daily 05/02/2015 05/01/2015 Inactive one month supply DX 250.02 also needs pen needles to use daily dx 250.02 Belviq 10 mg tablet RxNorm: 6464534 1 Tablet(s) PO BID 04/20/2015 09/20/2015 Inactive Insulin Syringe 0.3 mL 29 X 5/16" RxNorm: 1 Miscellaneous BID 03/24/2015 04/16/2016 Inactive Lantus 100 unit/mL subcutaneous solution RxNorm: 531816 30 Unit(s) SQ BID 02/14/2015 05/01/2015 Inactive pt not ready for refill yet, when he is, please fill 25units bid Lantus 100 unit/mL subcutaneous solution RxNorm: 480625 28 Unit(s) SQ BID 11/11/2014 02/13/2015 Inactive pt not ready for refill yet, when he is, please fill 25units bid [SAVINGS FOR NON-COVERED DRUGS -- BIN:[id number], PCN: ASPROD1, Group: XXXXX, ID# [id number], Questions: . THIS IS NOT INSURANCE.] Voltaren 1 % topical gel RxNorm: 886401 4 Gram(s) TOP QID 11/11/2014 03/10/2015 Inactive [SAVINGS FOR NON-COVERED DRUGS -- BIN:116999, PCN: ASPROD1, Group: XXXXX, ID# [id number], Questions: . THIS IS NOT INSURANCE.] metformin 1,000 mg tablet RxNorm: 359871 TAKE 1 TABLET BY MOUTH TWICE DAILY AFTER MEALS 10/19/2014 09/06/2015 Inactive Generic For:*GLUCOPHAGE 1000MG 10/18/2014 5:26:11 PM metformin 1,000 mg tablet RxNorm: 697144 Tablet(s) TAKE 1 TABLET BY MOUTH TWICE DAILY AFTER MEALS 10/18/2014 10/18/2014 Inactive Generic For:*GLUCOPHAGE 1000MG 04/16/2014 9:02:30 AM lovastatin 20 mg tablet RxNorm: 511414 TAKE ONE TABLET BY MOUTH ONCE DAILY. 10/07/2014 09/06/2015 Inactive Generic For:*MEVACOR 20MG 10/06/2014 12:16:37 PM lovastatin 20 mg tablet RxNorm: 475412 1 Tablet(s) PO daily TAKE ONE (1) TABLET BY MOUTH DAILY 10/06/2014 10/06/2014 Inactive Generic For:MEVACOR 20 MG TABLET Generic For:MEVACOR 20 MG TABLET 08/14/2013 8:06:44 AM Carafate 1 gram tablet RxNorm: 797870 1 Tablet(s) PO QID dissolve in 10mL of fluid, drink liquid carafate four times daily before meals and before bed 10/04/2014 11/10/2014 Inactive may dispense generic Avapro 300 mg tablet RxNorm: 306810 TAKE 1 TABLET BY MOUTH ONCE DAILY. 08/26/2014 08/20/2015 Inactive Generic For:AVAPRO 300MG 08/26/2014 9:03:29 AM Avodart 0.5 mg capsule RxNorm: 047695 1 Capsule(s) PO QPM 08/02/2014 07/27/2015 Inactive meloxicam 15 mg tablet RxNorm: 881478 TAKE 1 TABLET BY MOUTH ONCE DAILY. 06/11/2014 11/10/2014 Inactive Generic For:MOBIC 15MG 06/11/2014 9:05:37 AM Kenalog 40 mg/mL suspension for injection RxNorm: 2577128 1 Milliliter(s) Inj 05/04/2014 05/04/2014 Inactive Lantus Solostar 100 unit/mL (3 mL) subcutaneous insulin pen RxNorm: 701425 25 Unit(s) SQ BID 04/19/2014 02/13/2015 Inactive Lantus 100 unit/mL subcutaneous solution RxNorm: 879215 25 Unit(s) SQ BID break up lantus to two shots daily of 22 units each shot 04/19/2014 11/10/2014 Inactive pt not ready for refill yet, when he is, please fill 25units bid metformin 1,000 mg tablet RxNorm: 852686 TAKE 1 TABLET BY MOUTH TWICE DAILY AFTER MEALS 04/16/2014 10/12/2014 Inactive Generic For:*GLUCOPHAGE 1000MG 04/16/2014 9:02:30 AM Insulin Syringe 0.3 mL 29 X 5/16" RxNorm: 1 Miscellaneous BID 03/15/2014 03/23/2015 Inactive Insulin Syringe 0.3 mL 29 X 5/16" RxNorm: 1 Miscellaneous BID 03/15/2014 03/14/2014 Inactive meloxicam 15 mg tablet RxNorm: 621613 TAKE 1 TABLET EVERY DAY 03/15/2014 06/10/2014 Inactive Generic For:MOBIC 15MG 03/15/2014 9:06:35 AM Lantus 100 unit/mL subcutaneous solution RxNorm: 797545 22 Unit(s) SQ BID break up lantus to two shots daily of 22 units each shot 01/14/2014 04/18/2014 Inactive metformin 1,000 mg tablet RxNorm: 556281 Tablet(s) PO TAKE 1 TABLET BY MOUTH TWICE DAILY AFTER MEALS 01/07/2014 04/15/2014 Inactive Generic For:*GLUCOPHAGE 1000MG Lantus 100 unit/mL subcutaneous solution RxNorm: 831387 25 Unit(s) SQ BID break up lantus to two shots daily of 25 units each shot 09/30/2013 09/29/2013 Inactive Lantus 100 unit/mL subcutaneous solution RxNorm: 475219 25 Unit(s) SQ BID break up lantus to two shots daily of 25 units each shot 09/30/2013 01/13/2014 Inactive metformin 1,000 mg tablet RxNorm: 043839 1 Tablet(s) PO BID TAKE 1 TABLET BY MOUTH TWICE DAILY AFTER MEALS 09/30/2013 12/28/2013 Inactive Generic For:GLUCOPHAGE 1000MG TAB Generic For:GLUCOPHAGE 1000MG TAB Avapro 300 mg tablet RxNorm: 955787 Tablet(s) PO TAKE ONE (1) TABLET BY MOUTH DAILY 08/28/2013 08/25/2014 Inactive Generic For:*AVAPRO 300MG TAB Generic For:*AVAPRO 300MG TAB 08/28/2013 8:53:42 AM lovastatin 20 mg tablet RxNorm: 443811 Tablet(s) PO TAKE ONE (1) TABLET BY MOUTH DAILY 08/14/2013 10/05/2014 Inactive Generic For:MEVACOR 20 MG TABLET Generic For:MEVACOR 20 MG TABLET 08/14/2013 8:06:44 AM metformin 1,000 mg tablet RxNorm: 539469 Tablet(s) PO TAKE 1 TABLET BY MOUTH TWICE DAILY AFTER MEALS 07/16/2013 09/29/2013 Inactive Generic For:GLUCOPHAGE 1000MG TAB Generic For:GLUCOPHAGE 1000MG TAB Influenza Virus Vaccine 0.5 mL RxNorm: IM 07/01/2013 07/01/2013 Inactive Contour Test Strips RxNorm: strip miscellaneous USE TO TEST BLOOD SUGAR THREE TIMES DAILY DIRECTED 06/29/2013 03/14/2014 Inactive metformin 1,000 mg tablet RxNorm: 644741 Tablet(s) PO TAKE 1 TABLET BY MOUTH TWICE DAILY AFTER MEALS 04/14/2013 07/15/2013 Inactive Generic For:GLUCOPHAGE 1000MG TAB meloxicam 15 mg tablet RxNorm: 059617 Tablet(s) PO TAKE ONE TABLET BY MOUTH EVERY DAY 03/21/2013 03/14/2014 Inactive Generic For:MOBIC 15MG TAB 03/19/2013 8:10:41 AM Lantus 100 unit/mL subcutaneous solution RxNorm: 287468 25 Unit(s) SQ BID break up lantus to two shots daily of 25 units each shot 03/04/2013 06/01/2013 Inactive Insulin Syringe 0.3 mL 29 X 5/16" RxNorm: 1 Unit Dose Miscellaneous BID 02/04/2013 01/07/2019 Inactive Lantus 100 unit/mL Sub-Q RxNorm: 374793 20 Unit(s) SQ BID break up lantus to two shots daily of 20units each shot 02/04/2013 03/03/2013 Inactive topiramate 25 mg tablet RxNorm: 623179 1 Tablet(s) PO daily 02/04/2013 04/08/2013 Inactive metformin 1,000 mg tablet RxNorm: 961934 Tablet(s) PO TAKE 1 TABLET BY MOUTH TWICE DAILY AFTER MEALS 01/15/2013 04/13/2013 Inactive Generic For:GLUCOPHAGE 1000MG TAB Lantus 100 unit/mL Sub-Q RxNorm: 766996 30 Unit(s) SQ QPM 12/03/2012 01/01/2013 Inactive Kenalog 40 mg/mL Susp for Injection RxNorm: 4919153 1 Milliliter(s) Inj 09/25/2012 09/25/2012 Inactive Lantus 100 unit/mL Sub-Q RxNorm: 259336 25 Unit(s) SQ QPM 09/12/2012 10/11/2012 Inactive Avapro 300 mg tablet RxNorm: 321693 Tablet(s) PO TAKE ONE (1) TABLET BY MOUTH DAILY 09/03/2012 09/02/2012 Inactive Generic For:AVAPRO 300MG TAB Avapro 300 mg tablet RxNorm: 155081 Tablet(s) PO TAKE ONE (1) TABLET BY MOUTH DAILY 09/03/2012 08/27/2013 Inactive Generic For:AVAPRO 300MG TAB Lantus 100 unit/mL Sub-Q RxNorm: 970799 20 Unit(s) SQ QPM 08/27/2012 09/11/2012 Inactive Avapro 300 mg tablet RxNorm: 334986 1 Tablet(s) PO daily 08/27/2012 09/02/2012 Inactive Lantus 100 unit/mL Sub-Q RxNorm: 298889 15 Unit(s) SQ QPM 08/07/2012 08/26/2012 Inactive metformin 1,000 mg tablet RxNorm: 189903 Tablet(s) PO 07/18/2012 01/14/2013 Inactive TAKE 1 TABLET BY MOUTH TWICE DAILY AFTER MEALS;Generic For:GLUCOPHAGE 1,000 MG TABLET Lantus 100 unit/mL Sub-Q RxNorm: 258145 13 Unit(s) SQ QPM 06/25/2012 07/24/2012 Inactive lovastatin 20 mg tablet RxNorm: 033364 Tablet(s) PO 06/20/2012 07/14/2013 Inactive TAKE 2 TABLETS BY MOUTH AT BEDTIME;Generic For:MEVACOR 20 MG TABLET Pneumovax 23 25 mcg/0.5 mL Injection RxNorm: 416661 Milliliter(s) Inj 06/04/2012 06/04/2012 Inactive Influenza Virus Vaccine 0.5 mL RxNorm: IM 06/04/2012 06/04/2012 Inactive Insulin Syringe 0.3 mL 29 X 5/16" RxNorm: 1 Unit Dose Miscellaneous daily 06/03/2012 12/29/2012 Inactive lovastatin 20 mg tablet RxNorm: 570238 Tablet(s) PO 05/14/2012 06/19/2012 Inactive TAKE 2 TABLETS BY MOUTH AT BEDTIME;Generic For:MEVACOR 20 MG TABLET Contour Test Strips RxNorm: Miscellaneous TID 04/25/2012 05/24/2012 Inactive lovastatin 20 mg tablet RxNorm: 219072 Tablet(s) PO 04/16/2012 05/13/2012 Inactive TAKE 2 TABLETS BY MOUTH AT BEDTIME;Generic For:MEVACOR 20 MG TABLET metformin 1,000 mg tablet RxNorm: 692469 Tablet(s) PO 04/16/2012 07/17/2012 Inactive TAKE 1 TABLET BY MOUTH TWICE DAILY AFTER MEALS;Generic For:GLUCOPHAGE 1,000 MG TABLET citalopram 20 mg tablet RxNorm: 201838 1 Tablet(s) PO daily 04/09/2012 09/23/2012 Inactive meloxicam 15 mg Tab RxNorm: 277475 1 Tablet(s) PO daily 2012 03/04/2012 Inactive meloxicam 15 mg Tab RxNorm: 471198 Tablet(s) PO 2012 07/19/2015 Inactive TAKE 1 TABLET BY MOUTH DAILY;Generic For:MOBIC 15MG TAB WC meloxicam 15 mg tablet RxNorm: 703973 1 Tablet(s) PO daily 2012 03/04/2012 Inactive Rocephin 500 mg Solution for Injection RxNorm: 0505556 Inj 03/04/2012 03/04/2012 Inactive sulfamethoxazole 800 mg-trimethoprim 160 mg tablet RxNorm: 438465 1 Tablet(s) PO BID 03/04/2012 03/13/2012 Inactive metoprolol succinate ER 25 mg 24 hr Tab RxNorm: 553311 1 Tablet(s) PO daily 12/03/2011 11/16/2014 Inactive Byetta 10 mcg/0.04 mL per dose Sub-Q Pen Injector RxNorm: 714325 10 Microgram(s) SQ BID 10 meq twice daily before the two largest meals of the day. 12/03/2011 06/03/2012 Inactive Plavix 75 mg Tab RxNorm: 421958 1 Tablet(s) PO daily 12/03/2011 11/16/2014 Inactive lovastatin 20 mg tablet RxNorm: 596917 2 Tablet(s) PO daily 11/12/2011 04/15/2012 Inactive TAKE 2 TABLETS BY MOUTH DAILY AT BEDTIME;Generic For:MEVACOR 20 MG TABLET N O T I C E Last dispense quantity was less than original quantity written Avapro 300 mg tablet RxNorm: 869446 1 Tablet(s) PO daily 08/28/2011 08/21/2012 Inactive metformin 1,000 mg Tab RxNorm: 995787 1 Tablet(s) PO BID 07/09/2011 07/02/2012 Inactive Victoza 0.6 mg/0.1 mL (18 mg/3 mL) Sub-Q Pen Injector RxNorm: 192032 1.8 Milligram(s) SQ daily 06/20/2011 03/04/2012 Inactive Fish Oil 1,000 mg capsule RxNorm: 1 Capsule(s) PO BID No Start Date Active Ocuvite oral RxNorm: 426631 oral No Start Date Active aspirin 81 mg Cap, Delayed Release RxNorm: 656504 1 Capsule(s) PO daily No Start Date Active Sinemet 25 mg-100 mg tablet RxNorm: 034665 1 Tablet(s) PO TID No Start Date Active multivitamin tablet RxNorm: oral No Start Date Active B Complex 1 oral RxNorm: 76625 oral No Start Date Active Protonix 40 mg tablet,delayed release RxNorm: 202260 1 Tablet(s) PO daily No Start Date 09/26/2017 Inactive Bydureon 2 mg SubQ Susp RxNorm: 1988936 1 SQ QW No Start Date 06/03/2012 Inactive Avapro 150 mg Tab RxNorm: 672067 1 Tablet(s) PO daily No Start Date 03/04/2012 Inactive Travatan Z 0.004 % Eye Drops RxNorm: 991186 1 Drop(s) OPH daily No Start Date 06/14/2014 Inactive Farxiga 5 mg tablet RxNorm: 9397877 1 Tablet(s) PO QAM No Start Date 01/07/2019 Inactive potassium gluconate 595 mg (99 mg) tablet RxNorm: 184089 1 Tablet(s) PO daily No Start Date 01/07/2019 Inactive metformin 1,000 mg tablet RxNorm: 811547 1 Tablet(s) PO BID No Start Date 03/04/2012 Inactive magnesium oxide 400 mg tablet RxNorm: 178229 Tablet(s) PO No Start Date 09/26/2017 Inactive Ativan 0.5 mg tablet RxNorm: 056352 1 Tablet(s) PO No Start Date 10/09/2013 Inactive 1 30 min prior to procedure meloxicam 15 mg Tab RxNorm: 217153 1 Tablet(s) PO daily No Start Date 03/04/2012 Inactive lovastatin 20 mg Tab RxNorm: 237655 2 Tablet(s) PO QHS No Start Date 11/12/2011 Inactive Pen Needle 31 x 3/16" RxNorm: Miscellaneous BID Pen Colby 31g/8mm BD to use for [place]etta injection BID No Start Date 06/03/2012 Inactive Medication Administered Medication Codes Instructions Start Date Status Kenalog 40 mg/mL suspension for injection RxNorm: 6915156 1Milliliter 06/04/2017 No longer Active Kenalog 40 mg/mL suspension for injection RxNorm: 9668620 1Milliliter 06/21/2016 No longer Active Kenalog 40 mg/mL suspension for injection RxNorm: 6468752 1Milliliter 05/04/2014 No longer Active Influenza Virus Vaccine 0.5 mL RxNorm: 07/01/2013 No longer Active Kenalog 40 mg/mL Susp for Injection RxNorm: 2845591 1Milliliter 09/25/2012 No longer Active Influenza Virus Vaccine 0.5 mL RxNorm: 06/04/2012 No longer Active Pneumovax 23 25 mcg/0.5 mL Injection RxNorm: 854977 Milliliter 06/04/2012 No longer Active Rocephin 500 mg Solution for Injection RxNorm: 7103417 03/04/2012 No longer Active Immunizations Vaccine Codes [...] 331.83 02/08/2014 Nightmares ICD-9: 307.47 02/08/2014 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 10/14/2013 Thumb pain ICD-9: 729.5 [...] Ord30 C/HDL 3.1 Ratio 01/07/2019 Comp Metabolic Yrr050 NA 142 mEq/L 01/07/2019 Comp Metabolic Ehr259 K 4.3 mEq/L 01/07/2019 Comp Metabolic Vcr772 CL 104 mEq/L 01/07/2019 Comp Metabolic Vrc394 CO2 28.0 mEq/L 01/07/2019 Comp Metabolic Wxn353 ANION GAP 14 01/07/2019 Comp Metabolic Lqo686 GLUCOSE 118 mg/dL 01/07/2019 Comp Metabolic Sfx203 Creat 1.0 mg/dL 01/07/2019 Comp Metabolic Nya655 eGFR 82 ml/min/1.73m2 01/07/2019 Comp Metabolic Dxe534 BUN 22 mg/dL 01/07/2019 Comp Metabolic Llz724 B/C Ratio 23.2 Ratio 01/07/2019 Comp Metabolic Ncd323 CALCIUM 9.9 mg/dL 01/07/2019 Comp Metabolic Asp969 ALK PHOS 41 U/L 01/07/2019 Comp Metabolic Bki075 AST(SGOT) 23 U/L 01/07/2019 Comp Metabolic Bsw244 ALT(SGPT) 24 U/L 01/07/2019 Comp Metabolic Toh251 BILI T 0.8 mg/dL 01/07/2019 Comp Metabolic Wqd531 ALBUMIN 4.3 g/dL 01/07/2019 Comp Metabolic Ivt691 TPRO 6.7 g/dL 01/07/2019 Comp Metabolic Ifd035 GLOB 2.4 g/dL 01/07/2019 Comp Metabolic Bhr397 A/G Ratio 1.8 Ratio 01/07/2019 Comp Metabolic Wwi621 Osmo 288 mOsmo 01/07/2019 Tsh Ord6 TSH (3rd IS) 3.27 uIU/mL 01/07/2019 %Hba1C Xlv100 % HbA1c 96161- 6 5.9 % 01/07/2019 %Hba1C Dnr741 Gluc Ave 123 mg/dL 01/07/2019 Cbc With [...] 31.2 pg 01/07/2019 Cbc With Differential Ord2 [place]% 11.5 % 01/07/2019 Cbc With Differential Ord2 [...] 1.96 K/ul 01/07/2019 Cbc With Differential Ord2 [place] ABS# 0.7 K/ul 01/07/2019 Cbc With Differential [...] 30.4 pg 10/08/2018 Cbc With Differential Ord2 [place]% 11.1 % 10/08/2018 Cbc With Differential Ord2 [...] 1.72 K/ul 10/08/2018 Cbc With Differential Ord2 [place] ABS# 0.6 K/ul 10/08/2018 Cbc With Differential Ord2 Eos ABS# 0.2 K/ul 10/08/2018 Cbc With Differential Ord2 Baso ABS# 0.0 K/ul 10/08/2018 %Hba1C Zcf916 % HbA1c 13040- 6 7.2 % 10/08/2018 %Hba1C Tgy946 Gluc Ave 160 mg/dL 10/08/2018 Comp Metabolic Nkp424 NA 143 mEq/L 10/08/2018 Comp Metabolic Ttk944 K 4.4 mEq/L 10/08/2018 Comp Metabolic Icm904 CL 105 mEq/L 10/08/2018 Comp Metabolic Vkv563 CO2 28.0 mEq/L 10/08/2018 Comp Metabolic Ywb889 ANION GAP 14 10/08/2018 Comp Metabolic Rbv957 GLUCOSE 127 mg/dL 10/08/2018 Comp Metabolic Fzd027 Creat 1.1 mg/dL 10/08/2018 Comp Metabolic Ibf192 eGFR 72 ml/min/1.73m2 10/08/2018 Comp Metabolic Vjt461 BUN 18 mg/dL 10/08/2018 Comp Metabolic Mkn220 B/C Ratio 17.0 Ratio 10/08/2018 Comp Metabolic Mta603 CALCIUM 9.8 mg/dL 10/08/2018 Comp Metabolic Nln922 ALK PHOS 50 U/L 10/08/2018 Comp Metabolic Xpl120 AST(SGOT) 37 U/L 10/08/2018 Comp Metabolic Ktb604 ALT(SGPT) 37 U/L 10/08/2018 Comp Metabolic Tzd131 BILI T 0.8 mg/dL 10/08/2018 Comp Metabolic Iig930 ALBUMIN 4.4 g/dL 10/08/2018 Comp Metabolic Yqv323 TPRO 7.1 g/dL 10/08/2018 Comp Metabolic Kwp591 GLOB 2.7 g/dL 10/08/2018 Comp Metabolic Fqc266 A/G Ratio 1.6 Ratio 10/08/2018 Comp Metabolic Xtl016 Osmo 288 mOsmo 10/08/2018 Lipid Ord30 CHOL 150 mg/dL 10/08/2018 Lipid Ord30 HDL 45.0 mg/dl 10/08/2018 Lipid Ord30 TRIG 190 mg/dL 10/08/2018 Lipid Ord30 LDL 67 mg/dL 10/08/2018 Lipid Ord30 C/HDL 3.3 Ratio 10/08/2018 Tsh Ord6 TSH (3rd IS) 1.80 uIU/mL 10/08/2018 %Hba1C Igz607 % HbA1c 06086- 6 7.6 % 07/04/2018 %Hba1C Tgn100 Gluc Ave 171 mg/dL 07/04/2018 Comp Metabolic Vdz914 NA 140 mEq/L 07/04/2018 Comp Metabolic Ono265 K 4.5 mEq/L 07/04/2018 Comp Metabolic Cst839 CL 104 mEq/L 07/04/2018 Comp Metabolic Obg765 CO2 28.0 mEq/L 07/04/2018 Comp Metabolic Aco002 ANION GAP 13 07/04/2018 Comp Metabolic Djh518 GLUCOSE 211 mg/dL 07/04/2018 Comp Metabolic Lyt476 Creat 0.9 mg/dL 07/04/2018 Comp Metabolic Kbk002 eGFR 85 ml/min/1.73m2 07/04/2018 Comp Metabolic Tll492 BUN 20 mg/dL 07/04/2018 Comp Metabolic Sov560 B/C Ratio 21.7 Ratio 07/04/2018 Comp Metabolic Vqu161 CALCIUM 9.5 mg/dL 07/04/2018 Comp Metabolic Nrq506 ALK PHOS 46 U/L 07/04/2018 Comp Metabolic Wey859 AST(SGOT) 26 U/L 07/04/2018 Comp Metabolic Gvp197 ALT(SGPT) 29 U/L 07/04/2018 Comp Metabolic Qwi384 BILI T 0.6 mg/dL 07/04/2018 Comp Metabolic Yaf485 ALBUMIN 4.2 g/dL 07/04/2018 Comp Metabolic Iir892 TPRO 6.8 g/dL 07/04/2018 Comp Metabolic Flb004 GLOB 2.6 g/dL 07/04/2018 Comp Metabolic Dwf967 A/G Ratio 1.6 Ratio 07/04/2018 Comp Metabolic Tjk703 Osmo 288 mOsmo 07/04/2018 Tsh Ord6 TSH [...] 31.0 pg 07/04/2018 Cbc With Differential Ord2 [place]% 12.9 % 07/04/2018 Cbc With Differential Ord2 [...] 1.86 K/ul 07/04/2018 Cbc With Differential Ord2 [place] ABS# 0.9 K/ul 07/04/2018 Cbc With Differential Ord2 Eos ABS# 0.3 K/ul 07/04/2018 Cbc With Differential Ord2 Baso ABS# 0.1 K/ul 07/04/2018 Lipid Ord30 CHOL 159 mg/dL 07/04/2018 Lipid Ord30 HDL 45.0 mg/dl 07/04/2018 Lipid Ord30 TRIG 244 mg/dL 07/04/2018 Lipid Ord30 LDL 65 mg/dL 07/04/2018 Lipid Ord30 C/HDL 3.5 Ratio 07/04/2018 %Hba1C Yza650 % HbA1c 53183- 6 8.0 % 03/06/2018 %Hba1C Mpw468 Gluc Ave 183 mg/dL 03/06/2018 Lipid Ord30 [...] 30.2 pg 03/04/2018 Cbc With Differential Ord2 [place]% 12.2 % 03/04/2018 Cbc With Differential Ord2 [...] 1.93 K/ul 03/04/2018 Cbc With Differential Ord2 [place] ABS# 0.8 K/ul 03/04/2018 Cbc With Differential Ord2 Eos ABS# 0.2 K/ul 03/04/2018 Cbc With Differential Ord2 Baso ABS# 0.1 K/ul 03/04/2018 Comp Metabolic Ycx523 NA 139 mEq/L 03/04/2018 Comp Metabolic Rvn640 K 4.5 mEq/L 03/04/2018 Comp Metabolic Amc533 CL 102 mEq/L 03/04/2018 Comp Metabolic Wke369 CO2 28.0 mEq/L 03/04/2018 Comp Metabolic Kie149 ANION GAP 14 03/04/2018 Comp Metabolic Vsh998 GLUCOSE 201 mg/dL 03/04/2018 Comp Metabolic Ygw001 Creat 1.0 mg/dL 03/04/2018 Comp Metabolic Apl202 eGFR 78 ml/min/1.73m2 03/04/2018 Comp Metabolic Oyy765 BUN 18 mg/dL 03/04/2018 Comp Metabolic Twe018 B/C Ratio 18.0 Ratio 03/04/2018 Comp Metabolic Jpc424 CALCIUM 9.4 mg/dL 03/04/2018 Comp Metabolic Seo986 ALK PHOS 40 U/L 03/04/2018 Comp Metabolic Vad440 AST(SGOT) 21 U/L 03/04/2018 Comp Metabolic Wue667 ALT(SGPT) 27 U/L 03/04/2018 Comp Metabolic Yhq534 BILI T 0.6 mg/dL 03/04/2018 Comp Metabolic Hwx068 ALBUMIN 4.1 g/dL 03/04/2018 Comp Metabolic Cff989 TPRO 6.7 g/dL 03/04/2018 Comp Metabolic Wlx720 GLOB 2.7 g/dL 03/04/2018 Comp Metabolic Kex101 A/G Ratio 1.5 Ratio 03/04/2018 Comp Metabolic Crp298 Osmo 285 mOsmo 03/04/2018 Lipid Ord30 CHOL 171 mg/dL 11/20/2017 Lipid Ord30 HDL 52.0 mg/dl 11/20/2017 Lipid Ord30 TRIG 248 mg/dL 11/20/2017 Lipid Ord30 LDL 69 mg/dL 11/20/2017 Lipid Ord30 C/HDL 3.3 Ratio 11/20/2017 %Hba1C Vjr529 % HbA1c 89531- 6 7.7 % 11/20/2017 %Hba1C Shl778 Gluc Ave 174 mg/dL 11/20/2017 Comp Metabolic Nak415 NA 140 mEq/L 11/20/2017 Comp Metabolic Mud593 K 4.3 mEq/L 11/20/2017 Comp Metabolic Ptq729 CL 103 mEq/L 11/20/2017 Comp Metabolic Xay661 CO2 27.0 mEq/L 11/20/2017 Comp Metabolic Evw206 ANION GAP 14 11/20/2017 Comp Metabolic Wic878 GLUCOSE 151 mg/dL 11/20/2017 Comp Metabolic Kue594 Creat 0.9 mg/dL 11/20/2017 Comp Metabolic Okb723 eGFR 87 ml/min/1.73m2 11/20/2017 Comp Metabolic Djt394 BUN 25 mg/dL 11/20/2017 Comp Metabolic Ggq275 B/C Ratio 27.5 Ratio 11/20/2017 Comp Metabolic Uto567 CALCIUM 9.7 mg/dL 11/20/2017 Comp Metabolic Sie803 ALK PHOS 49 U/L 11/20/2017 Comp Metabolic Cxf974 AST(SGOT) 25 U/L 11/20/2017 Comp Metabolic Wjf349 ALT(SGPT) 24 U/L 11/20/2017 Comp Metabolic Ouz830 BILI T 0.6 mg/dL 11/20/2017 Comp Metabolic Trb172 ALBUMIN 4.2 g/dL 11/20/2017 Comp Metabolic Xat976 TPRO 6.6 g/dL 11/20/2017 Comp Metabolic Hbo073 GLOB 2.4 g/dL 11/20/2017 Comp Metabolic Ryv432 A/G Ratio 1.8 Ratio 11/20/2017 Comp Metabolic Bcv252 Osmo 287 mOsmo 11/20/2017 Cbc With Differential [...] 31.0 pg 07/25/2017 Cbc With Differential Ord2 [place]% 13.3 % 07/25/2017 Cbc With Differential Ord2 [...] 1.89 K/ul 07/25/2017 Cbc With Differential Ord2 [place] ABS# 0.9 K/ul 07/25/2017 Cbc With Differential Ord2 Eos ABS# 0.2 K/ul 07/25/2017 Cbc With Differential Ord2 Baso ABS# 0.1 K/ul 07/25/2017 Comp Metabolic Spj484 NA 140 mEq/L 07/25/2017 Comp Metabolic Hwn696 K 4.7 mEq/L 07/25/2017 Comp Metabolic Lfv237 CL 102 mEq/L 07/25/2017 Comp Metabolic Fng853 CO2 30.0 mEq/L 07/25/2017 Comp Metabolic Inj685 ANION GAP 13 07/25/2017 Comp Metabolic Vld074 GLUCOSE 178 mg/dL 07/25/2017 Comp Metabolic Bla501 Creat 1.0 mg/dL 07/25/2017 Comp Metabolic Shq587 eGFR 75 ml/min/1.73m2 07/25/2017 Comp Metabolic Nll992 BUN 23 mg/dL 07/25/2017 Comp Metabolic Ggp902 B/C Ratio 22.3 Ratio 07/25/2017 Comp Metabolic Wlz875 CALCIUM 9.7 mg/dL 07/25/2017 Comp Metabolic Dxp318 ALK PHOS 40 U/L 07/25/2017 Comp Metabolic Rbo541 AST(SGOT) 22 U/L 07/25/2017 Comp Metabolic Kgp034 ALT(SGPT) 25 U/L 07/25/2017 Comp Metabolic Ghi649 BILI T 0.7 mg/dL 07/25/2017 Comp Metabolic Pdc946 ALBUMIN 4.0 g/dL 07/25/2017 Comp Metabolic Bow101 TPRO 6.7 g/dL 07/25/2017 Comp Metabolic Cld247 GLOB 2.7 g/dL 07/25/2017 Comp Metabolic Tvm444 A/G Ratio 1.5 Ratio 07/25/2017 Comp Metabolic Xgo944 Osmo 288 mOsmo 07/25/2017 %Hba1C Hgv499 % HbA1c 60540- 6 7.1 % 07/25/2017 %Hba1C Hov035 Gluc Ave 157 mg/dL 07/25/2017 Lipid Ord30 CHOL 164 mg/dL 07/25/2017 Lipid Ord30 HDL 49.0 mg/dl 07/25/2017 Lipid Ord30 TRIG 266 mg/dL 07/25/2017 Lipid Ord30 LDL 62 mg/dL 07/25/2017 Lipid Ord30 C/HDL 3.3 Ratio 07/25/2017 Comp Metabolic Pmb209 NA 140 mEq/L 04/02/2017 Comp Metabolic Hcb728 K 4.4 mEq/L 04/02/2017 Comp Metabolic Lqe050 CL 103 mEq/L 04/02/2017 Comp Metabolic Ldu755 CO2 27.0 mEq/L 04/02/2017 Comp Metabolic Nye688 ANION GAP 14 04/02/2017 Comp Metabolic Flp459 GLUCOSE 182 mg/dL 04/02/2017 Comp Metabolic Hgk740 Creat 1.1 mg/dL 04/02/2017 Comp Metabolic Ysu581 eGFR 73 ml/min/1.73m2 04/02/2017 Comp Metabolic Cxx270 BUN 26 mg/dL 04/02/2017 Comp Metabolic Ijc170 B/C Ratio 24.5 Ratio 04/02/2017 Comp Metabolic Vej406 CALCIUM 9.4 mg/dL 04/02/2017 Comp Metabolic Xhc296 ALK PHOS 43 U/L 04/02/2017 Comp Metabolic Eff629 AST(SGOT) 19 U/L 04/02/2017 Comp Metabolic Kix849 ALT(SGPT) 20 U/L 04/02/2017 Comp Metabolic Nin116 BILI T 0.7 mg/dL 04/02/2017 Comp Metabolic Avh382 ALBUMIN 4.0 g/dL 04/02/2017 Comp Metabolic Wzb339 TPRO 6.6 g/dL 04/02/2017 Comp Metabolic Mvq224 GLOB 2.6 g/dL 04/02/2017 Comp Metabolic Tuk901 A/G Ratio 1.6 Ratio 04/02/2017 Comp Metabolic Kzp683 Osmo 289 mOsmo 04/02/2017 %Hba1C Hbs747 % HbA1c 89347- 6 7.9 % 04/02/2017 %Hba1C Fjk027 Gluc Ave 180 mg/dL 04/02/2017 Cbc With [...] 30.6 pg 04/02/2017 Cbc With Differential Ord2 [place]% 11.5 % 04/02/2017 Cbc With Differential Ord2 [...] 2.21 K/ul 04/02/2017 Cbc With Differential Ord2 [place] ABS# 0.9 K/ul 04/02/2017 Cbc With Differential [...] 30.6 pg 12/04/2016 Cbc With Differential Ord2 [place]% 10.7 % 12/04/2016 Cbc With Differential Ord2 [...] 1.76 K/ul 12/04/2016 Cbc With Differential Ord2 [place] ABS# 0.8 K/ul 12/04/2016 Cbc With Differential Ord2 Eos ABS# 0.2 K/ul 12/04/2016 Cbc With Differential Ord2 Baso ABS# 0.1 K/ul 12/04/2016 Lipid Ord30 CHOL 156 mg/dL 12/04/2016 Lipid Ord30 HDL 47.0 mg/dl 12/04/2016 Lipid Ord30 TRIG 219 mg/dL 12/04/2016 Lipid Ord30 LDL 65 mg/dL 12/04/2016 Lipid Ord30 C/HDL 3.3 Ratio 12/04/2016 Comp Metabolic Zoo491 NA 139 mEq/L 12/04/2016 Comp Metabolic Jhu451 K 4.4 mEq/L 12/04/2016 Comp Metabolic Pil697 CL 103 mEq/L 12/04/2016 Comp Metabolic Sum478 CO2 27.0 mEq/L 12/04/2016 Comp Metabolic Tdx308 ANION GAP 13 12/04/2016 Comp Metabolic Uao644 GLUCOSE 147 mg/dL 12/04/2016 Comp Metabolic Crl806 Creat 1.0 mg/dL 12/04/2016 Comp Metabolic Pft346 eGFR 83 ml/min/1.73m2 12/04/2016 Comp Metabolic Ghy376 BUN 20 mg/dL 12/04/2016 Comp Metabolic Asv754 B/C Ratio 21.1 Ratio 12/04/2016 Comp Metabolic Fxj362 CALCIUM 9.5 mg/dL 12/04/2016 Comp Metabolic Kut805 ALK PHOS 44 U/L 12/04/2016 Comp Metabolic Oyr530 AST(SGOT) 22 U/L 12/04/2016 Comp Metabolic Xgm096 ALT(SGPT) 23 U/L 12/04/2016 Comp Metabolic Wyz934 BILI T 0.8 mg/dL 12/04/2016 Comp Metabolic Tds311 ALBUMIN 3.9 g/dL 12/04/2016 Comp Metabolic Jmx240 TPRO 6.3 g/dL 12/04/2016 Comp Metabolic Ljt028 GLOB 2.4 g/dL 12/04/2016 Comp Metabolic Gbi590 A/G Ratio 1.7 Ratio 12/04/2016 Comp Metabolic Esx694 Osmo 283 mOsmo 12/04/2016 Tsh Ord6 hTSH II 3.35 uIU/mL 12/04/2016 %Hba1C Suk219 % HbA1c 21589- 6 7.4 % 12/04/2016 %Hba1C Lnj856 Gluc Ave 166 mg/dL 12/04/2016 Comp Metabolic Rtn261 NA 138 mEq/L 08/28/2016 Comp Metabolic Dzu005 K 4.7 mEq/L 08/28/2016 Comp Metabolic Woq973 CL 101 mEq/L 08/28/2016 Comp Metabolic Qzx104 CO2 29.0 mEq/L 08/28/2016 Comp Metabolic Lgc263 ANION GAP 13 08/28/2016 Comp Metabolic Uhs889 GLUCOSE 188 mg/dL 08/28/2016 Comp Metabolic Ike491 Creat 1.0 mg/dL 08/28/2016 Comp Metabolic Kkc280 eGFR 82 ml/min/1.73m2 08/28/2016 Comp Metabolic Isp298 BUN 21 mg/dL 08/28/2016 Comp Metabolic Wpf826 B/C Ratio 21.9 Ratio 08/28/2016 Comp Metabolic Cgz971 CALCIUM 9.6 mg/dL 08/28/2016 Comp Metabolic Kkj816 ALK PHOS 52 U/L 08/28/2016 Comp Metabolic Tzz636 AST(SGOT) 27 U/L 08/28/2016 Comp Metabolic Nib376 ALT(SGPT) 26 U/L 08/28/2016 Comp Metabolic Rvg865 BILI T 0.9 mg/dL 08/28/2016 Comp Metabolic Hgc541 ALBUMIN 4.2 g/dL 08/28/2016 Comp Metabolic Tra919 TPRO 6.8 g/dL 08/28/2016 Comp Metabolic Era042 GLOB 2.6 g/dL 08/28/2016 Comp Metabolic Rkp757 A/G Ratio 1.6 Ratio 08/28/2016 Comp Metabolic Gwd385 Osmo 284 mOsmo 08/28/2016 Cbc With Differential [...] 30.9 pg 08/28/2016 Cbc With Differential Ord2 [place]% 14.3 % 08/28/2016 Cbc With Differential Ord2 [...] 1.68 K/ul 08/28/2016 Cbc With Differential Ord2 [place] ABS# 1.1 K/ul 08/28/2016 Cbc With Differential Ord2 Eos ABS# 0.3 K/ul 08/28/2016 Cbc With Differential Ord2 Baso ABS# 0.1 K/ul 08/28/2016 %Hba1C Cnk285 % HbA1c 27970- 6 7.6 % 08/28/2016 %Hba1C Ntb204 Gluc Ave 171 mg/dL 08/28/2016 Cbc With [...] 30.3 pg 05/23/2016 Cbc With Differential Ord2 [place]% 12.0 % 05/23/2016 Cbc With Differential Ord2 [...] 1.74 K/ul 05/23/2016 Cbc With Differential Ord2 [place] ABS# 0.9 K/ul 05/23/2016 Cbc With Differential Ord2 Eos ABS# 0.2 K/ul 05/23/2016 Cbc With Differential Ord2 Baso ABS# 0.1 K/ul 05/23/2016 Tsh Ord6 hTSH II 3.24 uIU/mL 05/23/2016 %Hba1C Yjg566 % HbA1c 40710- 6 7.1 % 05/23/2016 %Hba1C Zng643 Gluc Ave 157 mg/dL 05/23/2016 Lipid Ord30 CHOL 155 mg/dL 05/23/2016 Lipid Ord30 HDL 50.0 mg/dl 05/23/2016 Lipid Ord30 TRIG 159 mg/dL 05/23/2016 Lipid Ord30 LDL 73 mg/dL 05/23/2016 Lipid Ord30 C/HDL 3.1 Ratio 05/23/2016 Comp Metabolic Wnn290 NA 137 mEq/L 05/23/2016 Comp Metabolic Ihu122 K 4.3 mEq/L 05/23/2016 Comp Metabolic Icb223 CL 102 mEq/L 05/23/2016 Comp Metabolic Ptz049 CO2 28.0 mEq/L 05/23/2016 Comp Metabolic Hhd385 ANION GAP 11 05/23/2016 Comp Metabolic Mtg835 GLUCOSE 140 mg/dL 05/23/2016 Comp Metabolic Mcd160 Creat 0.9 mg/dL 05/23/2016 Comp Metabolic Saa574 eGFR 93 ml/min/1.73m2 05/23/2016 Comp Metabolic Jmz276 BUN 23 mg/dL 05/23/2016 Comp Metabolic Mod092 B/C Ratio 26.7 Ratio 05/23/2016 Comp Metabolic Qze988 CALCIUM 9.4 mg/dL 05/23/2016 Comp Metabolic Ums131 ALK PHOS 43 U/L 05/23/2016 Comp Metabolic Zuu354 AST(SGOT) 23 U/L 05/23/2016 Comp Metabolic Wqv195 ALT(SGPT) 23 U/L 05/23/2016 Comp Metabolic Nhy518 BILI T 0.7 mg/dL 05/23/2016 Comp Metabolic Ipf296 ALBUMIN 4.2 g/dL 05/23/2016 Comp Metabolic Ieb146 TPRO 6.8 g/dL 05/23/2016 Comp Metabolic Xyk996 GLOB 2.6 g/dL 05/23/2016 Comp Metabolic Guy276 A/G Ratio 1.6 Ratio 05/23/2016 Comp Metabolic Drv787 Osmo 280 mOsmo 05/23/2016 Cbc With Differential [...] 29.9 pg 01/24/2016 Cbc With Differential Ord2 [place]% 11.1 % 01/24/2016 Cbc With Differential Ord2 [...] 1.92 K/ul 01/24/2016 Cbc With Differential Ord2 [place] ABS# 0.8 K/ul 01/24/2016 Cbc With Differential Ord2 Eos ABS# 0.3 K/ul 01/24/2016 Cbc With Differential Ord2 Baso ABS# 0.1 K/ul 01/24/2016 Cbc With Differential Ord2 New Analyzer Notice Please note new ref ranges starting 09-21-2015 due to implemntation of new five part differential hematolgy analyzer. 01/24/2016 Comp Metabolic Mqt725 NA 139 mEq/L 01/24/2016 Comp Metabolic Nvv678 K 4.1 mEq/L 01/24/2016 Comp Metabolic Skx042 CL 102 mEq/L 01/24/2016 Comp Metabolic Dll998 CO2 29.0 mEq/L 01/24/2016 Comp Metabolic Boc900 ANION GAP 12 01/24/2016 Comp Metabolic Bil149 GLUCOSE 140 mg/dL 01/24/2016 Comp Metabolic Kxf018 Creat 0.9 mg/dL 01/24/2016 Comp Metabolic Yea586 eGFR 87 ml/min/1.73m2 01/24/2016 Comp Metabolic Uvh573 BUN 20 mg/dL 01/24/2016 Comp Metabolic Qjd058 B/C Ratio 22.0 Ratio 01/24/2016 Comp Metabolic Bbf381 CALCIUM 9.3 mg/dL 01/24/2016 Comp Metabolic Xqu007 ALK PHOS 46 U/L 01/24/2016 Comp Metabolic Vwx118 AST(SGOT) 23 U/L 01/24/2016 Comp Metabolic Tkr256 ALT(SGPT) 22 U/L 01/24/2016 Comp Metabolic Pzc996 BILI T 0.7 mg/dL 01/24/2016 Comp Metabolic Tzn115 ALBUMIN 4.1 g/dL 01/24/2016 Comp Metabolic Txi307 TPRO 6.7 g/dL 01/24/2016 Comp Metabolic Csd963 GLOB 2.6 g/dL 01/24/2016 Comp Metabolic Eog327 A/G Ratio 1.6 Ratio 01/24/2016 Comp Metabolic Nrv650 Osmo 282 mOsmo 01/24/2016 %Hba1C Zna489 % HbA1c 12581- 6 6.8 % 01/24/2016 %Hba1C Inz812 Gluc Ave 148 mg/dL 01/24/2016 Tsh Ord6 hTSH II 3.45 uIU/mL 01/24/2016 Lipid Ord30 CHOL 137 mg/dL 01/24/2016 Lipid Ord30 HDL 47.0 mg/dl 01/24/2016 Lipid Ord30 TRIG 161 mg/dL 01/24/2016 Lipid Ord30 LDL 58 mg/dL 01/24/2016 Lipid Ord30 C/HDL 2.9 Ratio 01/24/2016 Tsh Ord6 hTSH II 3.71 uIU/mL 10/25/2015 %Hba1C Qen276 % HbA1c 17204- 6 7.1 % 10/25/2015 %Hba1C Hui433 Gluc Ave 157 mg/dL 10/25/2015 Cbc With [...] 30.2 pg 10/25/2015 Cbc With Differential Ord2 [place]% 12.4 % 10/25/2015 Cbc With Differential Ord2 [...] 1.69 K/ul 10/25/2015 Cbc With Differential Ord2 [place] ABS# 0.8 K/ul 10/25/2015 Cbc With Differential [...] Ord30 C/HDL 3.2 Ratio 10/25/2015 Comp Metabolic Qxo415 NA 136 mEq/L 10/25/2015 Comp Metabolic Icp635 K 4.0 mEq/L 10/25/2015 Comp Metabolic Fon184 CL 102 mEq/L 10/25/2015 Comp Metabolic Oci062 CO2 26.0 mEq/L 10/25/2015 Comp Metabolic Olz455 ANION GAP 12 10/25/2015 Comp Metabolic Pjv313 GLUCOSE 119 mg/dL 10/25/2015 Comp Metabolic Rex030 Creat 1.1 mg/dL 10/25/2015 Comp Metabolic Ptl446 eGFR 69 ml/min/1.73m2 10/25/2015 Comp Metabolic Zty035 BUN 21 mg/dL 10/25/2015 Comp Metabolic Zna260 B/C Ratio 18.8 Ratio 10/25/2015 Comp Metabolic Myr842 CALCIUM 9.5 mg/dL 10/25/2015 Comp Metabolic Psl001 ALK PHOS 49 U/L 10/25/2015 Comp Metabolic Iro352 AST(SGOT) 29 U/L 10/25/2015 Comp Metabolic Jxv672 ALT(SGPT) 28 U/L 10/25/2015 Comp Metabolic Mnu270 BILI T 0.7 mg/dL 10/25/2015 Comp Metabolic Vua855 ALBUMIN 4.2 g/dL 10/25/2015 Comp Metabolic Lsq426 TPRO 6.7 g/dL 10/25/2015 Comp Metabolic Kak596 GLOB 2.5 g/dL 10/25/2015 Comp Metabolic Ohj906 A/G Ratio 1.7 Ratio 10/25/2015 Comp Metabolic Xez880 Osmo 276 mOsmo 10/25/2015 Sensitivity Report #1 [id number] ORGANISM ESCHERICHIA COLI 10/06/2015 Sensitivity Report #1 [id number] ORG NUMBER 1 10/06/2015 Sensitivity Report #1 [id number] AMIKACIN S 10/06/2015 Sensitivity Report #1 [id number] AMPICILLIN/SULBACTAM S 10/06/2015 Sensitivity Report #1 [id number] AMOXICILLIN/CLAV S 10/06/2015 Sensitivity Report #1 [id number] CEFEPIME S 10/06/2015 Sensitivity Report #1 [id number] AMPICILLIN S 10/06/2015 Sensitivity Report #1 [id number] CEFOTAXIME S 10/06/2015 Sensitivity Report #1 [id number] CEFAZOLIN S 10/06/2015 Sensitivity Report #1 [id number] CEFTAZIDIME S 10/06/2015 Sensitivity Report #1 [id number] CEFTRIAXONE S 10/06/2015 Sensitivity Report #1 [id number] CIPROFLOXACIN S 10/06/2015 Sensitivity Report #1 [id number] GENTAMICIN S 10/06/2015 Sensitivity Report #1 [id number] LEVOFLOXACIN S 10/06/2015 Sensitivity Report #1 [id number] CEFUROXIME S 10/06/2015 Sensitivity Report #1 [id number] MEROPENEM S 10/06/2015 Sensitivity Report #1 [id number] TETRACYCLINE S 10/06/2015 Sensitivity Report #1 [id number] ERTAPENEM S 10/06/2015 Sensitivity Report #1 [id number] TOBRAMYCIN S 10/06/2015 Sensitivity Report #1 [id number] TRIMETH/SULFA S 10/06/2015 Sensitivity Report #1 [id number] IMIPENEM S 10/06/2015 Sensitivity Report #1 [id number] NITROFURANTOIN S 10/06/2015 Sensitivity Report #1 [id number] PIPERACILLIN/TAZO S 10/06/2015 Culture Urine [id number] URINE CULTURE SEE NOTES 10/06/2015 Culture Urine [id number] SOURCE: URINE 10/06/2015 Culture Urine [id number] STATUS: FINAL 10/06/2015 Culture Urine [id number] DATE PLATED: 10/03/2015 10/06/2015 Culture Urine [id number] PRELIMINARY: 10/06/2015 Culture Urine [id number] CULTURE REPORT: 10/06/2015 Urine Culture Ucult Complete >100,000 col/ml aerobic growth sent to ref lab 10/04/2015 Comp Metabolic Dqu783 NA 133 mEq/L 07/19/2015 Comp Metabolic Awe882 K 4.2 mEq/L 07/19/2015 Comp Metabolic Yhb206 CL 101 mEq/L 07/19/2015 Comp Metabolic Mlp512 CO2 25.0 mEq/L 07/19/2015 Comp Metabolic Vxj901 ANION GAP 11 07/19/2015 Comp Metabolic Ldz913 GLUCOSE 293 mg/dL 07/19/2015 Comp Metabolic Ael422 Creat 1.0 mg/dL 07/19/2015 Comp Metabolic Adp088 eGFR 81 ml/min/1.73m2 07/19/2015 Comp Metabolic Amv287 BUN 19 mg/dL 07/19/2015 Comp Metabolic Yyf139 B/C Ratio 19.6 Ratio 07/19/2015 Comp Metabolic Nfx496 CALCIUM 9.4 mg/dL 07/19/2015 Comp Metabolic Jug849 ALK PHOS 61 U/L 07/19/2015 Comp Metabolic Nyf126 AST(SGOT) 32 U/L 07/19/2015 Comp Metabolic Lnb736 ALT(SGPT) 41 U/L 07/19/2015 Comp Metabolic Tgn519 BILI T 0.7 mg/dL 07/19/2015 Comp Metabolic Lij532 ALBUMIN 4.1 g/dL 07/19/2015 Comp Metabolic Vnk644 TPRO 6.7 g/dL 07/19/2015 Comp Metabolic Sfe771 GLOB 2.6 g/dL 07/19/2015 Comp Metabolic Bzf423 A/G Ratio 1.6 Ratio 07/19/2015 Comp Metabolic Qyc757 Osmo 279 mOsmo 07/19/2015 %Hba1C Ady623 % HbA1c 83435- 6 9.2 % 07/19/2015 %Hba1C Vzp998 Gluc Ave 217 mg/dL 07/19/2015 Cbc With [...] Ord6 hTSH II 2.72 uIU/mL 04/19/2015 %Hba1C Yop367 % HbA1c 39458- 6 8.6 % 04/19/2015 %Hba1C Rzh917 Gluc Ave 200 mg/dL 04/19/2015 Comp Metabolic Mls896 NA 139 mEq/L 04/19/2015 Comp Metabolic Bsb318 K 4.2 mEq/L 04/19/2015 Comp Metabolic Dax318 CL 106 mEq/L 04/19/2015 Comp Metabolic Gdf004 CO2 27.0 mEq/L 04/19/2015 Comp Metabolic Zas990 ANION GAP 10 04/19/2015 Comp Metabolic Bms094 GLUCOSE 157 mg/dL 04/19/2015 Comp Metabolic Cxd054 Creat 0.9 mg/dL 04/19/2015 Comp Metabolic Zwr159 eGFR 84 ml/min/1.73m2 04/19/2015 Comp Metabolic Qqg897 BUN 14 mg/dL 04/19/2015 Comp Metabolic Gde207 B/C Ratio 14.9 Ratio 04/19/2015 Comp Metabolic Isc527 CALCIUM 9.5 mg/dL 04/19/2015 Comp Metabolic Sxh666 ALK PHOS 51 U/L 04/19/2015 Comp Metabolic Fte648 AST(SGOT) 28 U/L 04/19/2015 Comp Metabolic Prl389 ALT(SGPT) 29 U/L 04/19/2015 Comp Metabolic Iaj257 BILI T 0.6 mg/dL 04/19/2015 Comp Metabolic Xxe609 ALBUMIN 4.1 g/dL 04/19/2015 Comp Metabolic Fjc960 TPRO 6.4 g/dL 04/19/2015 Comp Metabolic Rlq837 GLOB 2.3 g/dL 04/19/2015 Comp Metabolic Inp596 A/G Ratio 1.8 Ratio 04/19/2015 Comp Metabolic Wto051 Osmo 281 mOsmo 04/19/2015 Lipid Ord30 CHOL [...] murmurs 01/13/2014 None Full Exam - General 1995 Abdomen abdominal exam Contour: rounded 01/13/2014 None [...] affect 10/14/2013 None Full Exam - General 1995 Ears/Nose/Throat oral cavity/pharynx/larynx Overall: oropharyngeal mucosa clear 10/14/2013 None Full Exam - General 1995 Ears/Nose/Throat oral cavity/pharynx/larynx Overall: no masses 10/14/2013 [...] protuberant 07/01/2013 None Full Exam - General 1995 Musculoskeletal [...] accomodation 09/25/2012 None Full Exam - General 1995 Respiratory auscultation Overall: breath sounds clear bilaterally 09/25/2012 None Full Exam - General 1995 Respiratory respiratory effort/rhythm Overall: no retractions 09/25/2012 None Full Exam - General 1995 Respiratory respiratory effort/rhythm Overall: normal rate 09/25/2012 [...] benign 06/25/2012 None Full Exam - General 1995 Neurologic gait Conventional walking: wide-based 06/25/2012 None Full Exam - General 1994 Psychiatric orientation/consciousness Overall: oriented to person, place and time 06/25/2012 None Full Exam - General 1994 Psychiatric mood and affect Overall: normal mood and affect 06/25/2012 None Full Exam - General 1995 Constitutional general appearance Overall: well developed 06/03/2012 None Full Exam - General 1995 Constitutional [...] bilaterally 04/09/2012 None Full Exam - General 1995 Respiratory respiratory effort/rhythm Overall: no retractions 04/09/2012 [...] dry 12/03/2011 None Full Exam - General 1995 Musculoskeletal [...] VACC NO PRSV 3 YRS+ IM CPT-4: 76624 05/21/2018 IIV4 VACC NO PRSV 3 YRS+ IM CPT-4: 35793 05/21/2018 ADMIN INFLUENZA VIRUS VAC CPT-4: G0008 05/21/2018 ADMIN PNEUMOCOCCAL VACCINE SNOMED CT: 53701014 CPT-4: G0009 05/21/2018 FLU VAC NO PRSV 4 DONNA 3 YRS+ CPT-4: 30863 05/21/2018 PPPS, SUBSEQ VISIT CPT- 4: G0439 12/24/2017 TRIAMCINOLONE ACET INJ NOS CPT-4: J3301 12/24/2017 DRAIN/INJECT JOINT/BURSA CPT-4: 60661 12/24/2017 REMOVAL OF SKIN TAGS <W/15 CPT-4: 13872 07/02/2017 ADMIN INFLUENZA VIRUS VAC CPT-4: G0008 06/28/2017 FLU VAC NO PRSV 4 DONNA 3 YRS+ CPT-4: 85182 06/28/2017 TRIAMCINOLONE ACET INJ NOS CPT-4: J3301 06/04/2017 PPPS, SUBSEQ VISIT CPT- 4: G0439 12/13/2016 PNEUMOCOCCAL VACC [address]: 54493454 CPT-4: 67892 12/13/2016 ADMIN PNEUMOCOCCAL VACCINE SNOMED CT: 39644401 CPT-4: G0009 12/13/2016 DRAIN/INJECT JOINT/BURSA CPT-4: 92007 08/30/2016 TRIAMCINOLONE ACET INJ NOS CPT-4: J3301 08/30/2016 URINALYSIS NONAUTO W/O SCOPE CPT-4: 54381 07/13/2016 INJ TRIGGER POINT 1/2 MUSCL CPT-4: 58452 06/21/2016 ADMIN INFLUENZA VIRUS VAC CPT-4: G0008 05/24/2016 FLU VACC PRSV FREE INC ANTIG Formatting Model/CDA Sections, Assigned to/Judy Pierre CPT-4: [id number] 05/24/2016 URINALYSIS NONAUTO W/O SCOPE CPT-4: 30219 10/03/2015 ADMIN INFLUENZA VIRUS VAC CPT-4: G0008 07/20/2015 IMMUNIZATION ADMIN CPT- 4: 10113 07/20/2015 FLU VACC PRSV FREE INC ANTIG Formatting Model/CDA Sections, Assigned to/Judy Pierre CPT-4: [id number] 07/20/2015 URINALYSIS NONAUTO W/O SCOPE CPT-4: 91177 05/18/2015 URINALYSIS NONAUTO W/O SCOPE CPT-4: 93332 05/09/2015 ADMIN INFLUENZA VIRUS VAC CPT-4: G0008 06/03/2014 FLU VAC NO PRSV 4 DONNA 3 YRS+ Assigned to/Judy Pierre CPT-4: [id number] 06/03/2014 TRIAMCINOLONE ACET INJ NOS CPT-4: J3301 05/04/2014 ADMIN INFLUENZA VIRUS VAC CPT-4: G0008 07/01/2013 FLULAVAL VACC, 3 YRS & >, IM CPT-4: Q2036 07/01/2013 PRESCRIP TRANSMIT VIA ERX SY CPT-4: G8553 03/04/2013 PRESCRIP TRANSMIT VIA ERX SY CPT-4: G8553 02/04/2013 DRAIN/INJECT JOINT/BURSA CPT-4: 73927 09/25/2012 ADMIN INFLUENZA VIRUS VAC CPT-4: G0008 06/04/2012 FLULAVAL VACC, 3 YRS & >, IM CPT-4: Q2036 06/04/2012 ADMIN PNEUMOCOCCAL VACCINE SNOMED CT: [id number] CPT-4: G0009 06/04/2012 PRESCRIP TRANSMIT VIA ERX SY CPT-4: G8553 04/09/2012 ROCEPHIN, PER 250 MG CPT- 4: J0696 03/04/2012 PRESCRIP TRANSMIT VIA ERX SY CPT-4: G8553 03/04/2012 DESTRUCT PREMALG LESION CPT-4: 41809 07/24/2011 DESTRUCT PREMALG LES 2-14 CPT-4: 44051 07/24/2011 DESTRUCT PREMALG LES 2-14 CPT-4: 96731 07/18/2011 DESTRUCT PREMALG LESION CPT-4: 34101 07/18/2011 Vital Signs Date Vital 01/08/2019 Blood Pressure 1: 150/78 Code: 8480-6 Blood Pressure 2: 142/70 Code: 8480-6 BMI: 37.9 Code: 19183-7 Heart Rate 1: 59 bpm Height: 5'6" SpO2: 98% Weight: 235 lbs 10/09/2018 Blood Pressure 1: 148/80 Code: 8480-6 BMI: 42.3 Code: 11784-4 Heart Rate 1: 66 bpm Height: 5'6" SpO2: 97% Weight: 262 lbs 07/07/2018 Blood Pressure 1: 140/76 Code: 8480-6 BMI: 45.2 Code: 25451-1 Heart Rate 1: 66 bpm Height: 5'6" SpO2: 98% Weight: 280 lbs 05/21/2018 Blood Pressure 1: 164/78 Code: 8480-6 Blood Pressure 1: 132/74 Code: 8480-6 BMI: 44.5 Code: 93482-8 Heart Rate 1: 63 bpm Height: 5'6" SpO2: 96% Weight: 276 lbs 03/06/2018 Blood Pressure 1: 140/80 Code: 8480-6 BMI: 45.6 Code: 60914-0 Heart Rate 1: 94 bpm Height: 5'6" SpO2: 96% Weight: 282 lbs 4 oz 12/24/2017 Blood Pressure 1: 148/72 Code: 8480-6 BMI: 44.7 Code: 20998-2 Heart Rate 1: 70 bpm Height: 5'6" SpO2: 95% Waist Measure (cm): 132 cm Weight: 277 lbs 11/21/2017 Blood Pressure 1: 134/76 Code: 8480-6 BMI: 44.4 Code: 95970-4 Heart Rate 1: 63 bpm Height: 5'6" SpO2: 97% Weight: 275 lbs 07/29/2017 Blood Pressure 1: 14876 Code: 8480-6 BMI: 43.7 Code: 84602-4 Heart Rate 1: 75 bpm Height: 5'6" SpO2: 97% Weight: 275 lbs 07/02/2017 Blood Pressure 1: 148/78 Code: 8480-6 BMI: 43.4 Code: 56871-3 Heart Rate 1: 55 bpm Height: 5'6" SpO2: 97% Weight: 273 lbs 06/04/2017 Blood Pressure 1: 132/58 Code: 8480-6 BMI: 43.1 Code: 91999-9 Heart Rate 1: 64 bpm Height: 5'6" SpO2: 96% Weight: 271 lbs 04/03/2017 Blood Pressure 1: 124/70 Code: 8480-6 BMI: 44.2 Code: 38447-7 Heart Rate 1: 70 bpm Height: 5'6" Height: 5'6" SpO2: 95% Weight: 278 lbs 12/13/2016 Blood Pressure 1: 150/78 Code: 8480-6 BMI: 44.2 Code: 09231-5 Heart Rate 1: 67 bpm Height: 5'6" SpO2: 97% Weight: 278 lbs 12/05/2016 Blood Pressure 1: 122/80 Code: 8480-6 Blood Pressure 1: 126/90 Code: 8480-6 BMI: 44.2 Code: 82849-3 Heart Rate 1: 70 bpm Height: 5'6" SpO2: 97% Weight: 278 lbs 08/30/2016 Blood Pressure 1: 134/70 Code: 8480-6 Blood Pressure 1: 134/78 Code: 8480-6 BMI: 43.9 Code: 26840-5 Heart Rate 1: 62 bpm Height: 5'6" SpO2: 98% Weight: 276 lbs 07/13/2016 Blood Pressure 1: 140/68 Code: 8480-6 BMI: 43.2 Code: 05940-7 Heart Rate 1: 59 bpm Height: 5'6" SpO2: 96% Weight: 272 lbs 06/21/2016 Blood Pressure 1: 140/70 Code: 8480-6 BMI: 43.2 Code: 87547-2 Heart Rate 1: 70 bpm Height: 5'6" SpO2: 94% Weight: 272 lbs 05/24/2016 Blood Pressure 1: 138/70 Code: 8480-6 Blood Pressure 1: 138/72 Code: 8480-6 BMI: 43.2 Code: 87312-6 Heart Rate 1: 65 bpm Height: 5'6" SpO2: 97% Weight: 272 lbs 01/24/2016 Blood Pressure 1: 122/62 Code: 8480-6 BMI: 43.1 Code: 75717-0 Heart Rate 1: 61 bpm Height: 5'6" SpO2: 97% Weight: 271 lbs 10/27/2015 Blood Pressure 1: 122/64 Code: 8480-6 BMI: 42.4 Code: 13524-0 Heart Rate 1: 58 bpm Height: 5'6" SpO2: 97% Weight: 267 lbs 09/21/2015 Blood Pressure 1: 128/70 Code: 8480-6 BMI: 43.2 Code: 99721-4 Heart Rate 1: 65 bpm Height: 5'6" SpO2: 98% Weight: 272 lbs 08/17/2015 Blood Pressure 1: 120/64 Code: 8480-6 BMI: 44.8 Code: 27663-2 Heart Rate 1: 57 bpm Height: 5'6" SpO2: 97% Weight: 282 lbs 07/20/2015 Blood Pressure 1: 144/70 Code: 8480-6 BMI: 45.3 Code: 71893-9 Heart Rate 1: 67 bpm Height: 5'6" SpO2: 95% Weight: 285 lbs 05/09/2015 Blood Pressure 1: 180/60 Code: 8480-6 Blood Pressure 2: 140/80 Code: 8480-6 04/20/2015 Blood Pressure 1: 138/64 Code: 8480-6 BMI: 45.6 Code: 02285-0 Heart Rate 1: 60 bpm Height: 5'6" SpO2: 98% Weight: 287 lbs 02/28/2015 Blood Pressure 1: 142/78 Code: 8480-6 BMI: 45.8 Code: 71291-2 Heart Rate 1: 68 bpm Height: 5'6" Weight: 288 lbs 02/14/2015 Blood Pressure 1: 142/78 Code: 8480-6 BMI: 45.3 Code: 71116-9 Heart Rate 1: 88 bpm Height: 5'6" Weight: 285 lbs 11/11/2014 Blood Pressure 1: 152/72 Code: 8480-6 Heart Rate 1: 64 bpm Weight: 282 lbs 10/04/2014 Blood Pressure 1: 140/72 Code: 8480-6 BMI: 45.6 Code: 56602-8 Heart Rate 1: 76 bpm Height: 5'6" Weight: 287 lbs 08/02/2014 Blood Pressure 1: 132/62 Code: 8480-6 BMI: 45.6 Code: 50340-7 Heart Rate 1: 64 bpm Height: 5'6" Weight: 287 lbs 06/15/2014 Blood Pressure 1: 142/62 Code: 8480-6 BMI: 44.7 Code: 41468-2 Heart Rate 1: 68 bpm Height: 5'6" SpO2: 97% Weight: 281 lbs 05/04/2014 Blood Pressure 1: 140/78 Code: 8480-6 BMI: 45.0 Code: 47648-6 Heart Rate 1: 60 bpm Height: 5'6" SpO2: 98% Weight: 283 lbs 04/19/2014 Blood Pressure 1: 130/62 Code: 8480-6 BMI: 44.7 Code: 17857-9 Heart Rate 1: 56 bpm Height: 5'6" Weight: 281 lbs 02/08/2014 Blood Pressure 1: 118/58 Code: 8480-6 BMI: 45.3 Code: 83356-7 Heart Rate 1: 60 bpm Height: 5'6" Weight: 285 lbs 01/13/2014 Blood Pressure 1: 112/52 Code: 8480-6 BMI: 44.2 Code: 27102-9 Heart Rate 1: 60 bpm Height: 5'6" Weight: 278 lbs 10/14/2013 Blood Pressure 1: 132/70 Code: 8480-6 BMI: 43.1 Code: 29116-1 Heart Rate 1: 60 bpm Height: 5'6" Weight: 271 lbs 07/01/2013 Blood Pressure 1: 158/76 Code: 8480-6 Heart Rate 1: 52 bpm Weight: 263 lbs 05/13/2013 Weight: 268 lbs 04/15/2013 Weight: 272 lbs 03/04/2013 Blood Pressure 1: 146/68 Code: 8480-6 BMI: 45.6 Code: 05524-3 Heart Rate 1: 68 bpm Height: 5'6" Weight: 287 lbs 02/04/2013 Blood Pressure 1: 140/68 Code: 8480-6 BMI: 46.1 Code: 08641-6 Heart Rate 1: 64 bpm Height: 5'6" Weight: 290 lbs 12/03/2012 Blood Pressure 1: 124/62 Code: 8480-6 BMI: 44.8 Code: 83660-7 Heart Rate 1: 64 bpm Height: 5'6" [...] 1: 146/76 Code: 8480-6 BMI: 44.7 Code: 78749-4 Heart Rate 1: 60 bpm Height: 5'6" Weight: 281 lbs 06/25/2012 Blood Pressure 1: 128/76 Code: 8480-6 BMI: 43.7 Code: 30143-0 Heart Rate 1: 72 bpm Height: 5'6" Weight: 275 lbs 06/03/2012 Blood Pressure 1: 136/62 Code: 8480-6 BMI: 43.2 Code: 84363-9 Heart Rate 1: 72 bpm Height: 5'6" Respiratory Rate: 20 bpm Weight: 272 lbs 04/24/2012 Blood Pressure 1: 116/60 Code: 8480-6 BMI: 42.3 Code: 07015-6 Heart Rate 1: 68 bpm Height: 5'6" Respiratory Rate: 16 bpm Weight: 266 lbs 04/09/2012 Blood Pressure 1: 150/82 Code: 8480-6 Heart Rate 1: 72 bpm Weight: 03/04/2012 Blood Pressure 1: 124/70 Code: 8480-6 Heart Rate 1: 72 bpm Respiratory Rate: 16 bpm Weight: 277 lbs 12/03/2011 Blood Pressure 1: 120/60 Code: 8480-6 BMI: 44.8 Code: 32547-6 Heart Rate 1: 68 bpm Height: 5'6" Respiratory Rate: 16 bpm Weight: 282 lbs 10/31/2011 Blood Pressure 1: 120/60 Code: 8480-6 BMI: 44.8 Code: 20899-4 Heart Rate 1: 74 bpm Height: 5'6" Respiratory Rate: 16 bpm Weight: 282 lbs 08/29/2011 Blood Pressure 1: 152/76 Code: 8480-6 BMI: 44.5 Code: 55522-0 Heart Rate 1: 66 bpm Height: 5'6" Respiratory Rate: 16 bpm Weight: 280 lbs 07/24/2011 Blood Pressure 1: 142/80 Code: 8480-6 BMI: 44.8 Code: 77083-0 Heart Rate 1: 66 bpm Height: 5'6" Respiratory Rate: 16 bpm Weight: 282 lbs 07/18/2011 Blood Pressure 1: 136/60 Code: 8480-6 BMI: 44.5 Code: 82487-3 Heart Rate 1: 72 bpm Height: 5'6" [...] when he could not remember what the [facility] sam[facility] was [facility] - pt states that he has had [...] data Encounters Encounter Performer Location Codes Date ([id number]) 10249 EST. PATIENT, LEVEL IV Diagnosis: Essential (primary) hypertension[ICD10: I10] Diagnosis: Type 2 diabetes mellitus without complications[ICD10: E11.9] Diagnosis: Morbid (severe) obesity due to excess calories[ICD10: E66.01] Maria Victoria Harrell MD, [facility] CPT-4: 38095 01/08/2019 ([id number]) 72805 EST. PATIENT, LEVEL IV Diagnosis: Essential (primary) hypertension[ICD10: I10] Diagnosis: Type 2 diabetes mellitus without complications[ICD10: E11.9] Diagnosis: Mixed hyperlipidemia[ICD10: E78.2] Maria Victoria Harrell MD, [facility] CPT- 4: 39418 10/09/2018 ([id number]) 33360 EST. PATIENT, LEVEL IV Diagnosis: Type 2 diabetes mellitus with hyperglycemia[ICD10: E11.65] Diagnosis: Essential (primary) hypertension[ICD10: I10] Diagnosis: Low back pain[ICD10: M54.5] [facility] CPT-4: 26025 07/07/2018 ([id number]) 12959 EST. 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 CPT-4: 46876 05/21/2018 ([id number]) 82963 EST. 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 PATIENT, LEVEL IV Diagnosis: Type 2 diabetes mellitus with hyperglycemia[ICD10: E11.65] Diagnosis: Essential (primary) hypertension[ICD10: I10] Diagnosis: Arthralgia of bilateral temporomandibular joint[ICD10: M26.623] [facility] CPT-4: 50948 11/21/2017 ([id number]) 70402 EST. PATIENT, LEVEL IV Diagnosis: Type 2 diabetes mellitus without complications[ICD10: E11.9] Diagnosis: Essential (primary) hypertension[ICD10: I10] Diagnosis: Mixed hyperlipidemia[ICD10: E78.2] [facility] CPT- 4: 08926 07/29/2017 ([id number]) 42616 EST. PATIENT, LEVEL III Diagnosis: Lumbago with sciatica, right side[ICD10: M54.41] [facility] CPT-4: 28464 06/04/2017 ([id number]) 51862 EST. 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 CPT-4: 74540 04/03/2017 ([id number]) 82046 EST. PATIENT, LEVEL IV Diagnosis: Essential (primary) hypertension[ICD10: I10] Diagnosis: Type 2 diabetes mellitus without complications[ICD10: E11.9] Maria Victoria Harrell MD, [facility] CPT-4: 17657 12/05/2016 ([id number]) 10741 EST. PATIENT, LEVEL IV Diagnosis: Essential (primary) hypertension[ICD10: I10] Diagnosis: Type 2 diabetes mellitus with hyperglycemia[ICD10: E11.65] Diagnosis: Morbid (severe) obesity due to excess calories[ICD10: E66.01] Diagnosis: Essential tremor[ICD10: G25.0] Diagnosis: Pain in right hip[ICD10: M25.551] Maria Victoria Harrell MD, [facility] CPT- 4: 38155 08/30/2016 ([id number]) 14091 EST. PATIENT, LEVEL III Diagnosis: Pain in left forearm[ICD10: M79.632] Diagnosis: Dysuria[ICD10: R30.0] [facility] CPT-4: 38116 07/13/2016 ([id number]) 70110 EST. PATIENT, LEVEL III Diagnosis: Type 2 diabetes mellitus with hyperglycemia[ICD10: E11.65] Diagnosis: Essential tremor[ICD10: G25.0] Diagnosis: Encounter for immunization[ICD10: Z23] Diagnosis: Essential (primary) hypertension[ICD10: I10] [facility] CPT-4: 24668 05/24/2016 ([id number]) 89681 EST. PATIENT, LEVEL IV Diagnosis: Type 2 diabetes mellitus with hyperglycemia[ICD10: E11.65] Diagnosis: Essential (primary) hypertension[ICD10: I10] Diagnosis: Dorsalgia, unspecified[ICD10: M54.9] [facility] CPT- 4: 96046 01/24/2016 ([id number]) 62843 EST. PATIENT, LEVEL IV Diagnosis: Type 2 diabetes mellitus with hyperglycemia[ICD10: E11.65] Diagnosis: Essential (primary) hypertension[ICD10: I10] Diagnosis: Dorsalgia, unspecified[ICD10: M54.9] Maria Victoria Harrell MD [facility] CPT- 4: 67823 10/27/2015 ([id number]) 89974 EST. PATIENT, LEVEL III Diagnosis: Type 2 diabetes mellitus with hyperglycemia[ICD10: E11.65] Maria Victoria Harrell MD [facility] CPT-4: 19774 09/21/2015 ([id number]) 42132 EST. PATIENT, LEVEL IV Diagnosis: Type 2 diabetes mellitus with hyperglycemia[ICD10: E11.65] Diagnosis: Essential (primary) hypertension[ICD10: I10] Maria Victoria Harrell MD [facility] CPT-4: 18280 08/17/2015 ([id number]) 08867 EST. PATIENT, LEVEL IV Diagnosis: VACCIN FOR INFLUENZA[ICD10: Z23] Diagnosis: Type 2 diabetes mellitus with hyperglycemia[ICD10: E11.65] Diagnosis: Morbid (severe) obesity due to excess calories[ICD10: E66.01] Diagnosis: Dorsalgia, unspecified[ICD10: M54.9] Maria Victoria Harrell MD, [facility] CPT- 4: 24856 07/20/2015 ([id number]) 18815 EST. PATIENT, LEVEL IV Diagnosis: Diabetes mellitus type 2, uncontrolled[ICD9: 250.02] Diagnosis: ESSENTIAL HYPERTENSION[ICD9: 401.9] Diagnosis: MORBID OBESITY[ICD9: 278.01] Diagnosis: Peripheral neuropathic pain[ICD9: 356.9] Diagnosis: Diabetic neuropathy[ICD9: 250.60] [facility] CPT- 4: 29181 04/20/2015 ([id number]) Miscellaneous no charge Diagnosis: Cerumen impaction[ICD9: 380.4] [facility] CPT-4: 53215 02/28/2015 ([id number]) 35643 EST. PATIENT, LEVEL IV Diagnosis: Diabetes mellitus type 2, uncontrolled[ICD9: 250.02] Diagnosis: ESSENTIAL HYPERTENSION[ICD9: 401.9] Maria Victoria Harrell MD [facility] CPT- 4: 39487 02/14/2015 ([id number]) 37599 EST. PATIENT, LEVEL III Diagnosis: Diabetes mellitus type 2, uncontrolled[ICD9: 250.02] Maria Victoria Harrell MD [facility] CPT-4: 99598 11/11/2014 ([id number]) 81199 EST. PATIENT, LEVEL IV Diagnosis: ESSENTIAL HYPERTENSION[ICD9: 401.9] Diagnosis: DIABETES TYPE II[ICD9: 250.00] Diagnosis: Esophageal reflux[ICD9: 530.81] Diagnosis: DYSPHAGIA NEC[ICD9: 787.29] Maria Victoria Harrell MD [facility] CPT-4: 23104 10/04/2014 ([id number]) 70729 EST. PATIENT, LEVEL IV Diagnosis: DIABETES TYPE II[ICD9: 250.00] Diagnosis: ESSENTIAL HYPERTENSION[ICD9: 401.9] Diagnosis: BPH (benign prostatic hyperplasia)[ICD9: 600.00] Maria Victoria Harrell MD [facility] CPT-4: 67441 08/02/2014 ([id number]) 42333 EST. PATIENT, LEVEL III Diagnosis: Enlarged prostate[ICD9: 600.00] Maria Victoria Harrell MD [facility] CPT-4: 44221 06/15/2014 ([id number]) 17841 EST. PATIENT, LEVEL III Diagnosis: Right hip pain[ICD9: 719.45] Diagnosis: BACKACHE[ICD9: 724.5] Diagnosis: Sacroiliitis[ICD9: 720.2] Sunitha Harrell MD [facility] CPT-4: 05356 05/04/2014 ([id number]) 69714 EST. PATIENT, LEVEL IV Diagnosis: DM W/O COMPLICATION TYPE II, UNCONTROLLED[ICD9: 250.02] Diagnosis: ESSENTIAL HYPERTENSION[ICD9: 401.9] Maria Victoria Harrell MD [facility] CPT- 4: 87625 04/19/2014 ([id number]) 56791 EST. PATIENT, LEVEL IV Diagnosis: Mild cognitive impairment[ICD9: 331.83] Diagnosis: Nightmares[ICD9: 307.47] Diagnosis: Sleep apnea[ICD9: 780.57] Maria Victoria Harrell MD [facility] CPT-4: 47902 02/08/2014 ([id number]) 31556 EST. PATIENT, LEVEL III Diagnosis: DM W/O COMPLICATION TYPE II, UNCONTROLLED[ICD9: 250.02] Maria Victoria Harrell MD [facility] CPT-4: 44720 01/13/2014 ([id number]) 21832 EST. 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 CPT-4: 29368 10/14/2013 ([id number]) 65477 EST. PATIENT, LEVEL IV Diagnosis: DIABETES TYPE II[SNOMED: 223367669] Diagnosis: ESSENTIAL HYPERTENSION[SNOMED: 83045807] Diagnosis: Flat feet[ICD9: 734] Maria Victoria Harrell MD [facility] CPT-4: 64878 07/01/2013 ([id number]) Miscellaneous no charge Diagnosis: DM W/O COMPLICATION TYPE II, UNCONTROLLED[SNOMED: 31495268] Diagnosis: MORBID OBESITY[ICD9: 278.01] Maria Victoria Harrell MD [facility] CPT-4: 12370 05/13/2013 ([id number]) Miscellaneous no charge Diagnosis: MORBID OBESITY[ICD9: 278.01] Maria Victoria Harrell MD [facility] CPT-4: 77193 04/15/2013 ([id number]) 57427 EST. PATIENT, LEVEL III Diagnosis: DM W/O COMPLICATION TYPE II, UNCONTROLLED[SNOMED: 64894126] Diagnosis: Dietary restriction[ICD9: V65.3] Diagnosis: Morbid obesity with BMI of 40.0-44.9, adult[ICD9: 278.01] Maria Victoria Harrell MD [facility] CPT-4: 18040 03/04/2013 ([id number]) 28687 EST. PATIENT, LEVEL IV Diagnosis: DM W/O COMPLICATION TYPE II, UNCONTROLLED[SNOMED: 63827562] Diagnosis: ENTHESOPATHY OF HIP[ICD9: 726.5] Diagnosis: BACKACHE[ICD9: 724.5] Maria Victoria Harrell MD, [facility] CPT-4: 04235 02/04/2013 ([id number]) 39109 EST. PATIENT, LEVEL III Diagnosis: DM W/O COMPLICATION TYPE II, UNCONTROLLED[SNOMED: 32088404] Maria Victoria Harrell MD, [facility] CPT-4: 79647 12/03/2012 ([id number]) 87543 EST. PATIENT, LEVEL III Diagnosis: Tinnitus[ICD9: 388.30] Diagnosis: Cerumen impaction[ICD9: 380.4] Sunitha Harrell MD, [facility] CPT-4: 12334 10/14/2012 ([id number]) 25687 EST. PATIENT, LEVEL III Diagnosis: ENTHESOPATHY OF HIP[ICD9: 726.5] Diagnosis: JOINT PAIN-PELVIS[ICD9: 719.45] Maria Victoria Harrell MD, [facility] CPT-4: 98544 09/29/2012 35152 EST. PATIENT, LEVEL II Diagnosis: Right hip pain[ICD9: 719.45] Diagnosis: Bursitis of hip, right[ICD9: 726.5] Diagnosis: DM W/O COMPLICATION TYPE II, UNCONTROLLED[SNOMED: 42368037] Sunitha Harrell MD, [facility] CPT-4: 33177 09/25/2012 ([id number]) 27204 EST. PATIENT, LEVEL III Diagnosis: DM W/O COMPLICATION TYPE II, UNCONTROLLED[SNOMED: 59516614] Maria Victoria Harrell MD, [facility] CPT-4: 27582 08/27/2012 ([id number]) 65252 EST. PATIENT, LEVEL III Diagnosis: Diabetes mellitus out of control[SNOMED: 56108091] Maria Victoria Harrell MD, [facility] CPT-4: 18054 06/25/2012 ([id number]) 74232 EST. PATIENT, LEVEL III Diagnosis: DM W/O COMPLICATION TYPE II, UNCONTROLLED[SNOMED: 56351454] Diagnosis: ESSENTIAL HYPERTENSION[SNOMED: 12569300] Maria Victoria Harrell MD, [facility] CPT-4: 28616 06/03/2012 ([id number]) 01390 EST. PATIENT, LEVEL III Diagnosis: DM W/O COMPLICATION TYPE II, UNCONTROLLED[SNOMED: 77998373] Diagnosis: Back pain[ICD9: 724.5] Maria Victoria Harrell MD [facility] CPT-4: 36355 04/24/2012 ([id number]) 09654 EST. PATIENT, LEVEL IV Diagnosis: BACKACHE[ICD9: 724.5] Diagnosis: MORBID OBESITY[ICD9: 278.01] Diagnosis: Depression[ICD9: 311] Maria Victoria Harrell MD [facility] CPT-4: 90823 04/09/2012 ([id number]) 16653 EST. PATIENT, LEVEL IV Diagnosis: Diabetes mellitus type 2, uncontrolled[SNOMED: 97714706] Diagnosis: ESSENTIAL HYPERTENSION[SNOMED: 66824041] Maria Victoria Harrell MD [facility] CPT-4: 63359 03/04/2012 ([id number]) 99329 EST. PATIENT, LEVEL IV Diagnosis: DM W/O COMPLICATION TYPE II, UNCONTROLLED[SNOMED: 01932199] Diagnosis: MORBID OBESITY[ICD9: 278.01] Maria Victoria Harrell MD [facility] CPT-4: 34742 12/03/2011 ([id number]) 57506 EST. PATIENT, LEVEL IV Diagnosis: DM W/O COMPLICATION TYPE II, UNCONTROLLED[SNOMED: 54770986] Diagnosis: ESSENTIAL HYPERTENSION[SNOMED: 39058355] Diagnosis: Hyperlipidemia[ICD9: 272.4] Diagnosis: Morbid obesity[ICD9: 278.01] Maria Victoria Harrell MD [facility] CPT-4: 10925 10/31/2011 ([id number]) 97047 EST. PATIENT, LEVEL IV Diagnosis: ESSENTIAL HYPERTENSION[SNOMED: 23586575] Diagnosis: DM W/O COMPLICATION TYPE II, UNCONTROLLED[SNOMED: 73327205] Diagnosis: MORBID OBESITY[ICD9: 278.01] Maria Victoria Harrell MD [facility] CPT-4: 88029 08/29/2011 16393 EST. PATIENT, LEVEL IV Diagnosis: Diabetes mellitus type 2, uncontrolled[SNOMED: 47617854] Diagnosis: ESSENTIAL HYPERTENSION[SNOMED: 19925287] Diagnosis: Actinic keratosis[ICD9: 702.0] Maria Victoria Harrell MD [facility] CPT-4: 57268 07/18/2011 Plan of Care Planned Activity Notes [...] diet - continue with dietary restrictions. 01/08/2019 Patient Education: Patient Medication Summary Completed 01/08/2019 Patient Education: Diabetes Completed 01/08/2019 Patient Education: Obesity Completed 01/08/2019 Patient Education: Patient Medication Summary Completed 01/07/2019 Appointment: Maria Victoria Harrell WPtel: [address] [place], [place] [phone] (15 min) Moderate 11/10/2018 Visit Plan: Diabetes [...] medications. 10/09/2018 Appointment: [facility] [phone] [facility] [place] (30 min) Complex 10/09/2018 Patient Education: Patient Medication Summary Completed 10/09/2018 Patient Education: Diabetes Completed 10/09/2018 Patient Education: Cholesterol Management Completed 10/09/2018 Care Plan: Referral Order SNOMED-CT : 945075280 Pending 10/09/2018 Patient Education: Patient Medication Summary [...] Mai 07/07/2018 Appointment: [facility] [phone] [facility] [place] (15 min) Moderate 07/07/2018 Patient Education: [...] disease. 05/21/2018 Appointment: Maria Victoria Harrell WPtel: [address] [place], [place] [id number] (15 min) Moderate 05/21/2018 Patient Education: Patient [...] 03/06/2018 Appointment: [facility] [phone] [facility] (15 min) Moderate 03/06/2018 Patient Education: Patient Medication Summary Completed 03/06/2018 Patient Education: Obesity Completed 03/06/2018 Patient Education: Patient Medication Summary Completed 03/03/2018 Care Plan: %Hba1C [facility] : 40856-8 Pending 03/03/2018 Visit Plan: Medicare Exam - [...] Summary Completed 12/24/2017 [facility]ment[facility] [phone] [phone] [facility] - Annual Wellness Visit 12/19/2017 Visit [...] naproxen. 11/21/2017 Appointment: [facility] Victoria Har[facility] [phone] [facility] (15 min) Moderate 11/21/2017 Patient Education: Patient [...] medications. 07/29/2017 Appointment: [facility] Victoria Harrell [facility] [phone] [facility] (15 min) Moderate 07/29/2017 Patient Education: Patient Medication Summary Completed 07/29/2017 Patient Education: Obesity Completed 07/29/2017 Visit Plan: Skin tag removed - pt tolerated procedure well - Wound Instructions - Pt was instructed to keep the wound clean, wash with antibacterial soap, use triple antibiotic ointment, call if redness, pustular drainage, or any other acute concerns. 07/02/2017 Appointment: Zunilda Carrillo WPtel: [phone] [facility] (30 min) Complex 07/02/2017 Patient Education: Patient Medication Summary Completed 07/02/2017 Appointment: Injection 06/28/2017 Patient Education: Patient Medication Summary Completed 06/28/2017 Visit Plan: Sciatica- exercises discussed with the patient, pt to continue with antiinflammatories. Pt is to call if the symptoms do not improve or if they worsen. Kenalog injection today in the office. 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 Hypertension - well controlled - continue with current medications, continue with no added salt diet. Pt has been encouraged to exercise daily. The pt has been advised to call the office if there are any acute concerns about change in blood pressure readings at home. 04/03/2017 Appointment: Maria Victoria Harrell WPtel: [phone] [facility] [place] (15 min) Moderate 04/03/2017 Patient Education: [...] care surrogate. 12/13/2016 App[facility]ment: [facility] [phone] [phone] [facility] - Annual Wellness Visit 12/13/2016 Patient Education: Patient Medication Summary Completed 12/13/2016 Care Plan: Referral Order SNOMED-CT : 876730566 Pending 12/13/2016 Visit Plan: Hypertension - well [...] controlled. 12/05/2016 Appointment: [facility] Victoria Har[facility] [phone] [facility] [place] (15 min) Moderate 12/05/2016 Patient Education: Patient Medication Summary Completed 12/05/2016 Patient Education: Obesity Completed 12/05/2016 Care Plan: CT ABD & PELVIS W/O CONTRAST LOINC : 98454-2 Pending 12/05/2016 Patient Education: Patient Medication Summary [...] care 08/30/2016 Appointment: Maria Victoria Harrell WPtel: [facility] [place] (15 min) Moderate 08/30/2016 Patient Education: Patient Medication Summary Completed 08/30/2016 Patient Education: Obesity Completed 08/30/2016 Patient Education: Hypertension Completed 08/30/2016 Patient Education: Patient Medication Summary Completed 08/23/2016 Visit Plan: Left forearm pain-use voltaren gel as needed-xray forearm for further evaluation UA negative-patient instructed to increase po fluids-call if symptoms do not resolve 07/13/2016 Appointment: Sunitha Moran WPtel: [phone] [phone] [place] (10 min) Simple 07/13/2016 Patient [...] disease process. 06/21/2016 Appointment: Sunitha Moran WPtel: [phone] (30 min) Complex 06/21/2016 Patient Education: Patient Medication Summary Completed 06/21/2016 Appointment: uSnitha Moran WPtel: [phone] (30 min) Complex 06/15/2016 Visit Plan: Hypertension [...] 01/24/2016 Appointment: Maria Victoria Harrell [facility]: [phone] [phone] (15 min) Moderate 01/24/2016 Patient Education: Patient [...] 10/27/2015 Appointment: Maria Victoria Harrell [facility] [phone] [facility] [place] (15 min) Moderate 10/27/2015 Patient Education: [...] 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 04/20/2015 Appointment: Maria Victoria Harrell WPtel: [phone] [facility] (15 min) Moderate 04/20/2015 Patient Education: Patient [...] home. 02/14/2015 Appointment: Maria Victoria Harrell WPtel: [phone] [facility] Follow up 02/14/2015 Patient Education: Patient Medication [...] 11/11/2014 Appointment: Maria Victoria Harrell WPtel: [phone] [facility] Follow up 11/11/2014 Patient Education: Patient Medication Summary Completed 11/11/2014 Appointment: Maria Victoria Harrell WPtel: [phone] [facility] Follow up 11/04/2014 Visit Plan: Esophageal Reflux [...] home. 10/04/2014 Appointment: Maria Victoria Harrell WPtel: [facility] Follow up 10/04/2014 Patient Education: Patient Medication Summary Completed 10/04/2014 Patient Education: Hypertension Completed 10/04/2014 Appointment: Maria Victoria Harrell WPtel: [address] [place], [place] [phone] Follow up 08/19/2014 Visit Plan: Diabetes Mellitus [...] avodart 08/02/2014 Appointment: Maria Victoria Harrell WPtel: [facility] [place] Sick 08/02/2014 Patient Education: Patient Medication Summary Completed 08/02/2014 Patient Education: Hypertension Completed 08/02/2014 Visit Plan: Enlarged prostate with decreased urine flow - recommended that the patient start on tamsulosin 0.4mg daily - will need to start him on this in about 2-3 weeks. Check PSA in 2-3 weeks. 06/15/2014 Appointment: Maria Victoria Harrell WPtel: [facility] Follow up 06/15/2014 Patient Education: Patient Medication Summary Completed 06/15/2014 Appointment: Maria Victoria Harrell WPtel: [facility] [place] Injection 06/03/2014 Patient Education: Patient Medication [...] - pt to see this Opthamologist in [place] - May 25. 04/19/2014 Appointment: Maria Victoria Harrell WPtel: [facility] Follow up 04/19/2014 Patient Education: Patient Medication [...] 02/08/2014 Appointment: Maria Victoria Harrell [phone] [facility] Follow up 02/08/2014 Patient Education: Patient Medication [...] shoes. 01/13/2014 Appointment: Maria Victoria Harrell [facility]el: [phone] [facility] [place] Follow up 01/13/2014 Patient Education: Patient [...] - recommended referral to Dr. Fine at [facility]. 10/14/2013 Patient Education: Patient Medication Summary Completed [...] support. 07/01/2013 Appointment: Maria Victoria Harrell WPtel: [address] [place], [place] [phone] Follow up 07/01/2013 Patient Education: Patient Medication Summary Completed 07/01/2013 Patient Education: Hypertension Completed 07/01/2013 Appointment: Maria Victoria Harrell WPtel: [address] [place], [place] [phone] [place] Other 05/13/2013 Patient Education: Patient Medication Summary Completed 05/13/2013 Appointment: Maria Victoria Harrell WPtel: [address] [place], [place] [phone] [place] Other 04/15/2013 Patient Education: Patient Medication Summary [...] 03/04/2013 Appointment: [facility] Victoria Har[phone] [facility] Follow up 03/04/2013 Patient Education: Patient Medication [...] body. 02/04/2013 Appointment: Maria Victoria Harrell [facility]el: [phone] [facility] Follow up 02/04/2013 Patient Education: Patient Medication [...] bedtime. 12/03/2012 Appointment: Maria Victoria Harrell WPtel: [address] [place], [place] [phone] Follow up 12/03/2012 Patient Education: Patient Medication Summary Completed 12/03/2012 Visit Plan: Tinnitus-cerumen impaction-cerumen adhered to left TM-discussed using sweet oil nightly for the next week and call if symptoms have not improved. Patient verbalized understanding of plan . 10/14/2012 Appointment: Sunitha Moran WPtel: [address] [place], [place] [phone] Sick 10/14/2012 Patient Education: Patient Medication Summary Completed 10/14/2012 Visit Plan: Arthritis- occasionally uncontrolled symptoms- recommend pt to take antiinflammatory as directed for pain control. Use tylenol for break through pain symptoms. 09/29/2012 Appointment: Maria Victoria Harrell WPtel: [address] [place], [place] [phone] Other 09/29/2012 Patient Education: Patient Medication Summary [...] blood sugars 09/25/2012 Appointment: Sunitha Moran WPtel: [address] [place], [place] [phone] Other 09/25/2012 Patient Education: Patient Medication Summary [...] DAILY. 08/27/2012 Appointment: Maria Victoria Har[phone] [facility] Follow up 08/27/2012 Patient Education: Patient Medication [...] 06/25/2012 Appointment: Maria Victoria Harrell [facility]el[phone] [facility] Follow up 06/25/2012 Patient Education: Patient Medication [...] night. 06/03/2012 Appointment: Maria Victoria Harrell WPtel: [facility]5 [facility] Follow up 06/03/2012 Patient Education: Patient Medication [...] pain. 04/24/2012 Appointment: Maria Victoria Harrell WPtel: [facility]5 [facility] Follow up 04/24/2012 Patient Education: Patient Medication [...] improve. 04/09/2012 Appointment: Maria Victoria Harrell WPtel: [facility]5 [facility] Other 04/09/2012 Patient Education: Patient Medication Summary Completed 04/09/2012 Patient Education: .Amazing charts Exercise for Sciatica Completed 04/09/2012 Appointment: Sunitha Moran WPtel: [phone] Other 03/13/2012 Visit Plan: Diabetes Mellitus - [...] with the victoza, therefore, will see if bynnamdin is going to be too expensive for [...] pain. 03/04/2012 Appointment: Maria Victoria Harrell WPtel: [facility]5 [facility] Other 03/04/2012 Patient Education: Patient Medication Summary [...] pains/fatigue. 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 10/31/2011 Appointment: Maria Victoria Harrell [facility]el[facility] [phone] [facility] Other 10/31/2011 Patient Education: Patient Medication Summary [...] check. 08/29/2011 Appointment: Maria Victoria Harrell WPtel: [phone] [facility] Other 08/29/2011 Patient Education: Patient Medication Summary Completed 08/29/2011 Patient Education: High Blood Pressure: Essential Hypertension Completed 08/29/2011 Visit Plan: left index finger irritated actinic keratosis removed actinic keratosis removed from dorsum of hand as well and in web of the 4th digit 07/24/2011 Appointment: Maria Victoria Harrell [facility]el[phone] [facility] Surgical Procedure 07/24/2011 Patient Education: Patient Medication [...] 07/18/2011 Appointment: Maria Victoria Harrell [facility]el: [phone] [facility] Other 07/18/2011 Patient Education: Patient Medication Summary Completed 07/18/2011 Patient Education: High Blood Pressure: Essential Hypertension Completed 07/18/2011 Referral: Jose Manuel Referral Appointment Requested Referral: [facility] Referral Appointment Requested Referral: Kiran Laird MD [...] 10mg twice daily - see cost at [facility] . Diabetes Mellitus - Uncontrolled - per [...] further investigative studies planned by his current check processing clerk. Pt is to INCREASE HIS LANTUS TO [...] and copy given to patient for his wire transfer clerk. Hypertension - well controlled - continue with [...] units increase was made. Dr. Mai at [place] - Cardiothoracic surgeon. . 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 BRING IN THE GLUCOMETER [...] - recommended referral to Dr. Fine at [facility]. The [...] diet - continue with dietary restrictions. . Joint Injection - Pt was given [...]
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
[2019-01-23 15:10] LABS: BAND NEUTROPHILS 5 %; LYMPHOCYTES % (MANUAL) 0 %; MONOCYTES % (MANUAL) 8 %; NEUTROPHILS % (MANUAL) 87 %; RBC MORPH NORMAL
[2019-01-23 15:11] LABS: ALANINE AMINOTRANSFERASE 18 U/L (0-55); ALBUMIN 3.7 GM/DL (3.2-4.5); ALKALINE PHOSPHATASE 66 U/L (40-136); BILIRUBIN,TOTAL 1.9 MG/DL (0.1-1.0); BUN/CREATININE RATIO 11; CALCIUM 9.9 MG/DL (8.5-10.1); CARBON DIOXIDE 17 MMOL/L (21-32); CHLORIDE 103 MMOL/L (98-107); CREATININE SERUM 1.58 MG/DL (0.60-1.30); GFR ESTIMATED 43; GLUCOSE 250 MG/DL (70-105); POTASSIUM 4.2 MMOL/L (3.6-5.0); SODIUM 136 MMOL/L (135-145)
--- OUTSIDE RECORDS SUMMARY | 2019-01-23 15:14 | XMS REPORT | CCD ---
Author Author [facility] Organization [facility] Address [address] [place] [address] Phone Care Team Providers Care Director Of Social Services Name Role Phone PP Unavailable CCM Unavailable Summary Purpose Interface Exchange Insurance Providers Payer name Policy type / Coverage type Covered democrat ID Effective Begin Date Effective End Date WPS Medicare Part B Medicare Part B [id number] Unknown [facility] Medicare Part B [id number] Unknown Family history Nephew Diagnosis Age At [...] Unknown Retired 07/18/[address]: 906668321 Never smoker 07/18/[address]: 550322998 Never drinks alcohol 07/18/2011 Has the patient [...] Fill Instructions finasteride 1 mg tablet RxNorm: 625135 1 Tablet(s) PO daily 10/28/2018 01/20/2020 Active irbesartan 300 mg tablet RxNorm: 054856 1 Tablet(s) PO daily 10/28/2018 01/20/2020 Active lovastatin 20 mg tablet RxNorm: 743781 1 Tablet(s) PO QHS 10/28/2018 01/20/2020 Active metformin 1,000 mg tablet RxNorm: 146062 1 Tablet(s) PO BID 10/28/2018 01/20/2020 Active Toujeo SoloStar U-300 Insulin 300 unit/mL (1.5 mL) subcutaneous pen RxNorm: 1053231 30 Unit(s) SQ daily 10/09/2018 01/01/2020 Active 90 day supply needle (disp) 31 gauge x 5/16" RxNorm: 1 Miscellaneous TID 02/10/2018 02/04/2019 Active finasteride 1 mg tablet RxNorm: 069873 1 Tablet(s) PO daily 12/25/2017 12/24/2017 Inactive D/C dutasteride finasteride 1 mg tablet RxNorm: 679167 1 Tablet(s) PO daily 12/25/2017 10/27/2018 Inactive D/C dutasteride Novolin R Regular U-100 Insulin 100 unit/mL injection solution RxNorm: 846088 10 Unit(s) Inj QAM 12 units at lunch and 10 units at supper 11/25/2017 09/22/2018 Inactive amoxicillin 500 mg capsule RxNorm: 319964 1 Capsule(s) PO QID 11/21/2017 11/30/2017 Inactive naproxen 500 mg tablet RxNorm: 506153 1 Tablet(s) PO BID 11/21/2017 12/04/2017 Inactive Novolin R Regular U-100 Insulin 100 unit/mL injection solution RxNorm: 253214 8 10 Unit(s) Inj QAM 12 units at lunch and 10 units at supper 11/21/2017 11/24/2017 Inactive Insulin Syringe 0.3 mL 29 X 5/16" RxNorm: 1 injection SQ TID 10/01/2017 07/27/2018 Inactive Protonix 40 mg tablet,delayed release RxNorm: 945614 1 Tablet(s) PO daily 09/27/2017 12/20/2018 Active Voltaren 1 % topical gel RxNorm: 725618 4 Gram(s) TOP QID 09/27/2017 12/20/2018 Active [SAVINGS FOR NON-COVERED DRUGS -- BIN:[id number], PCN: ASPROD1, Group: XXXXX, ID# [id number], Questions: . THIS IS NOT INSURANCE.] magnesium oxide 400 mg tablet RxNorm: 287654 1 Tablet(s) PO daily 09/27/2017 12/20/2018 Active Trueresult Blood Glucose System RxNorm: 1 test Miscellaneous QID insulin dependent diabetes 09/27/2017 09/21/2018 Inactive Brainuelizabeht SoloStar U-300 Insulin 300 unit/mL (1.5 mL) subcutaneous pen RxNorm: 0173568 45 Unit(s) SQ daily 09/27/2017 10/08/2018 Inactive 90 day supply lovastatin 20 mg tablet RxNorm: 407782 1 Tablet(s) PO QHS 09/27/2017 10/27/2018 Inactive Insulin Syringe 0.3 mL 29 X 5/16" RxNorm: 1 injection SQ BID 09/27/2017 09/30/2017 Inactive irbesartan 300 mg tablet RxNorm: 757955 1 Tablet(s) PO daily 09/27/2017 10/27/2018 Inactive Novolin R 100 unit/mL injection solution RxNorm: 631684 8 Unit(s) Inj QAM 10 units at lunch and 8 units at supper 09/27/2017 11/20/2017 Inactive dutasteride 0.5 mg capsule RxNorm: 983273 1 Capsule(s) PO daily 09/27/2017 12/24/2017 Inactive metformin 1,000 mg tablet RxNorm: 090751 1 Tablet(s) PO BID 09/27/2017 10/27/2018 Inactive Voltaren 1 % topical gel RxNorm: 454032 4 Gram(s) TOP QID 07/23/2017 09/26/2017 Inactive [SAVINGS FOR NON-COVERED DRUGS -- BIN:[id number], PCN: ASPROD1, Group: XXXXX, ID# [id number], Questions: . THIS IS NOT INSURANCE.] Bactrim DS 800 mg-160 mg tablet RxNorm: 809083 1 Tablet(s) PO BID 07/02/2017 07/08/2017 Inactive Kenalog 40 mg/mL suspension for injection RxNorm: 8343754 1 Milliliter(s) Inj 06/04/2017 06/04/2017 Inactive Efudex 5 % topical cream RxNorm: 795559 1 TOP BID 12/05/2016 12/14/2016 Inactive Avapro 300 mg tablet RxNorm: 652592 Tablet(s) TAKE 1 TABLET BY MOUTH ONCE DAILY. 09/21/2016 09/15/2017 Inactive Toujeo SoloStar 300 unit/mL (1.5 mL) subcutaneous insulin pen RxNorm: 0389759 45 Unit(s) SQ daily 09/21/2016 09/15/2017 Inactive 90 day supply Novolin R 100 unit/mL injection solution RxNorm: 968321 8 Unit(s) Inj QAM 10 units at lunch and 8 units at supper 09/21/2016 09/15/2017 Inactive metformin 1,000 mg tablet RxNorm: 263513 Tablet(s) TAKE 1 TABLET BY MOUTH TWICE DAILY AFTER MEALS 09/21/2016 09/15/2017 Inactive lovastatin 20 mg tablet RxNorm: 346655 Tablet(s) TAKE ONE TABLET BY MOUTH ONCE DAILY. 09/21/2016 09/15/2017 Inactive dutasteride 0.5 mg capsule RxNorm: 421456 1 Capsule(s) PO daily 09/21/2016 09/15/2017 Inactive Toujeo SoloStar 300 unit/mL (1.5 mL) subcutaneous insulin pen RxNorm: 7754742 45 Unit(s) SQ daily 06/27/2016 09/20/2016 Inactive Kenalog 40 mg/mL suspension for injection RxNorm: 0124561 1 Milliliter(s) Inj 06/21/2016 06/21/2016 Inactive Toujeo SoloStar 300 unit/mL (1.5 mL) subcutaneous insulin pen RxNorm: 7238740 40 Unit(s) SQ daily 05/24/2016 06/26/2016 Inactive Novolin R 100 unit/mL injection solution RxNorm: 794697 8 Unit(s) Inj QAM 10 units at lunch and 8 units at supper 05/24/2016 09/20/2016 Inactive Bactrim DS 800 mg-160 mg tablet RxNorm: 887384 1 Tablet(s) PO BID 10/03/2015 01/31/2016 Inactive dutasteride 0.5 mg capsule RxNorm: 434465 1 Capsule(s) PO daily 09/26/2015 09/19/2016 Inactive dutasteride 0.5 mg capsule RxNorm: 546882 1 Capsule(s) PO daily 09/26/2015 09/25/2015 Inactive Avodart 0.5 mg capsule RxNorm: 893495 1 Capsule(s) PO QPM 09/21/2015 09/25/2015 Inactive Avapro 300 mg tablet RxNorm: 468282 Tablet(s) TAKE 1 TABLET BY MOUTH ONCE DAILY. 09/21/2015 09/14/2016 Inactive Generic For:AVAPRO 300MG 08/26/2015 9:53:42 AM lovastatin 20 mg tablet RxNorm: 930197 1 Tablet(s) TAKE ONE TABLET BY MOUTH ONCE DAILY. 09/21/2015 09/20/2016 Inactive Generic For:*MEVACOR 20MG 10/06/2014 12:16:37 PM Novolin R 100 unit/mL injection solution RxNorm: 448170 5 Unit(s) Inj QAM 8 units at lunch and 5 units at supper 09/21/2015 05/23/2016 Inactive metformin 1,000 mg tablet RxNorm: 429834 Tablet(s) TAKE 1 TABLET BY MOUTH TWICE DAILY AFTER MEALS 09/21/2015 09/20/2016 Inactive Generic For:*GLUCOPHAGE 1000MG 10/18/2014 5:26:11 PM Toujeo SoloStar 300 unit/mL (1.5 mL) subcutaneous insulin pen RxNorm: 6182009 60 Unit(s) SQ daily 09/21/2015 05/23/2016 Inactive 3 month supply DX 250.02 also needs pen needles to use daily dx 250.02 Novolin R 100 unit/mL injection solution RxNorm: 277199 5 Unit(s) Inj QAM 8 units at lunch and 5 units at supper 09/07/2015 09/20/2015 Inactive lovastatin 20 mg tablet RxNorm: 580622 Tablet(s) TAKE ONE TABLET BY MOUTH ONCE DAILY. 09/07/2015 09/20/2015 Inactive Generic For:*MEVACOR 20MG 10/06/2014 12:16:37 PM metformin 1,000 mg tablet RxNorm: 941788 Tablet(s) TAKE 1 TABLET BY MOUTH TWICE DAILY AFTER MEALS 09/07/2015 09/20/2015 Inactive Generic For:*GLUCOPHAGE 1000MG 10/18/2014 5:26:11 PM Toujeo SoloStar 300 unit/mL (1.5 mL) subcutaneous insulin pen RxNorm: 3913682 60 Unit(s) SQ daily 09/07/2015 09/20/2015 Inactive 3 month supply DX 250.02 also needs pen needles to use daily dx 250.02 Avapro 300 mg tablet RxNorm: 051555 TAKE 1 TABLET BY MOUTH ONCE DAILY. 08/26/2015 09/20/2015 Inactive Generic For:AVAPRO 300MG 08/26/2015 9:53:42 AM Avodart 0.5 mg capsule RxNorm: 967360 1 Capsule(s) PO QPM 08/17/2015 09/20/2015 Inactive Novolin R 100 unit/mL injection solution RxNorm: 195720 5 Unit(s) Inj QAM 8 units at lunch and 5 units at supper 08/17/2015 09/06/2015 Inactive Trueresult Blood Glucose System RxNorm: 1 test Miscellaneous QID insulin dependent diabetes 08/17/2015 08/10/2016 Inactive Avodart 0.5 mg capsule RxNorm: 381192 1 Capsule(s) PO QPM 08/14/2015 08/16/2015 Inactive Novolin R 100 unit/mL injection solution RxNorm: 327931 5 Unit(s) Inj TID with meals 07/20/2015 08/16/2015 Inactive Toujeo SoloStar 300 unit/mL (1.5 mL) subcutaneous insulin pen RxNorm: 7841514 60 Unit(s) SQ daily 07/20/2015 09/06/2015 Inactive one month supply DX 250.02 also needs pen needles to use daily dx 250.02 Bactrim DS 800 mg-160 mg tablet RxNorm: 838302 1 Tablet(s) PO BID 05/09/2015 05/15/2015 Inactive Bactrim DS 800 mg-160 mg tablet RxNorm: 216332 1 Tablet(s) PO BID 05/09/2015 05/08/2015 Inactive Bactrim DS 800 mg-160 mg tablet RxNorm: 432323 1 Tablet(s) PO BID 05/09/2015 05/08/2015 Inactive Toujeo SoloStar 300 unit/mL (1.5 mL) subcutaneous insulin pen RxNorm: 0075866 45u qdx3 days then 50u qdx 5 days then if fsbs >180 55u qd Unit(s) SQ daily 05/02/2015 07/19/2015 Inactive one month supply DX 250.02 also needs pen needles to use daily dx 250.02 Toujeo SoloStar 300 unit/mL (1.5 mL) subcutaneous insulin pen RxNorm: 2623214 45u qdx3 days then 50u qdx 5 days then if fsbs >180 55u qd Unit(s) SQ daily 05/02/2015 05/01/2015 Inactive one month supply DX 250.02 also needs pen needles to use daily dx 250.02 Belviq 10 mg tablet RxNorm: 1841336 1 Tablet(s) PO BID 04/20/2015 09/20/2015 Inactive Insulin Syringe 0.3 mL 29 X 5/16" RxNorm: 1 Miscellaneous BID 03/24/2015 04/16/2016 Inactive Lantus 100 unit/mL subcutaneous solution RxNorm: 698824 30 Unit(s) SQ BID 02/14/2015 05/01/2015 Inactive pt not ready for refill yet, when he is, please fill 25units bid Lantus 100 unit/mL subcutaneous solution RxNorm: 590499 28 Unit(s) SQ BID 11/11/2014 02/13/2015 Inactive pt not ready for refill yet, when he is, please fill 25units bid [SAVINGS FOR NON-COVERED DRUGS -- BIN:[id number], PCN: ASPROD1, Group: XXXXX, ID# [id number], Questions: . THIS IS NOT INSURANCE.] Voltaren 1 % topical gel RxNorm: 513219 4 Gram(s) TOP QID 11/11/2014 03/10/2015 Inactive [SAVINGS FOR NON-COVERED DRUGS -- BIN:318978, PCN: ASPROD1, Group: XXXXX, ID# [id number], Questions: . THIS IS NOT INSURANCE.] metformin 1,000 mg tablet RxNorm: 649148 TAKE 1 TABLET BY MOUTH TWICE DAILY AFTER MEALS 10/19/2014 09/06/2015 Inactive Generic For:*GLUCOPHAGE 1000MG 10/18/2014 5:26:11 PM metformin 1,000 mg tablet RxNorm: 829654 Tablet(s) TAKE 1 TABLET BY MOUTH TWICE DAILY AFTER MEALS 10/18/2014 10/18/2014 Inactive Generic For:*GLUCOPHAGE 1000MG 04/16/2014 9:02:30 AM lovastatin 20 mg tablet RxNorm: 896815 TAKE ONE TABLET BY MOUTH ONCE DAILY. 10/07/2014 09/06/2015 Inactive Generic For:*MEVACOR 20MG 10/06/2014 12:16:37 PM lovastatin 20 mg tablet RxNorm: 120075 1 Tablet(s) PO daily TAKE ONE (1) TABLET BY MOUTH DAILY 10/06/2014 10/06/2014 Inactive Generic For:MEVACOR 20 MG TABLET Generic For:MEVACOR 20 MG TABLET 08/14/2013 8:06:44 AM Carafate 1 gram tablet RxNorm: 997267 1 Tablet(s) PO QID dissolve in 10mL of fluid, drink liquid carafate four times daily before meals and before bed 10/04/2014 11/10/2014 Inactive may dispense generic Avapro 300 mg tablet RxNorm: 005895 TAKE 1 TABLET BY MOUTH ONCE DAILY. 08/26/2014 08/20/2015 Inactive Generic For:AVAPRO 300MG 08/26/2014 9:03:29 AM Avodart 0.5 mg capsule RxNorm: 857359 1 Capsule(s) PO QPM 08/02/2014 07/27/2015 Inactive meloxicam 15 mg tablet RxNorm: 660618 TAKE 1 TABLET BY MOUTH ONCE DAILY. 06/11/2014 11/10/2014 Inactive Generic For:MOBIC 15MG 06/11/2014 9:05:37 AM Kenalog 40 mg/mL suspension for injection RxNorm: 3752712 1 Milliliter(s) Inj 05/04/2014 05/04/2014 Inactive Lantus Solostar 100 unit/mL (3 mL) subcutaneous insulin pen RxNorm: 936127 25 Unit(s) SQ BID 04/19/2014 02/13/2015 Inactive Lantus 100 unit/mL subcutaneous solution RxNorm: 290972 25 Unit(s) SQ BID break up lantus to two shots daily of 22 units each shot 04/19/2014 11/10/2014 Inactive pt not ready for refill yet, when he is, please fill 25units bid metformin 1,000 mg tablet RxNorm: 416468 TAKE 1 TABLET BY MOUTH TWICE DAILY AFTER MEALS 04/16/2014 10/12/2014 Inactive Generic For:*GLUCOPHAGE 1000MG 04/16/2014 9:02:30 AM Insulin Syringe 0.3 mL 29 X 5/16" RxNorm: 1 Miscellaneous BID 03/15/2014 03/23/2015 Inactive Insulin Syringe 0.3 mL 29 X 5/16" RxNorm: 1 Miscellaneous BID 03/15/2014 03/14/2014 Inactive meloxicam 15 mg tablet RxNorm: 567922 TAKE 1 TABLET EVERY DAY 03/15/2014 06/10/2014 Inactive Generic For:MOBIC 15MG 03/15/2014 9:06:35 AM Lantus 100 unit/mL subcutaneous solution RxNorm: 148681 22 Unit(s) SQ BID break up lantus to two shots daily of 22 units each shot 01/14/2014 04/18/2014 Inactive metformin 1,000 mg tablet RxNorm: 708864 Tablet(s) PO TAKE 1 TABLET BY MOUTH TWICE DAILY AFTER MEALS 01/07/2014 04/15/2014 Inactive Generic For:*GLUCOPHAGE 1000MG Lantus 100 unit/mL subcutaneous solution RxNorm: 610673 25 Unit(s) SQ BID break up lantus to two shots daily of 25 units each shot 09/30/2013 09/29/2013 Inactive Lantus 100 unit/mL subcutaneous solution RxNorm: 559474 25 Unit(s) SQ BID break up lantus to two shots daily of 25 units each shot 09/30/2013 01/13/2014 Inactive metformin 1,000 mg tablet RxNorm: 931918 1 Tablet(s) PO BID TAKE 1 TABLET BY MOUTH TWICE DAILY AFTER MEALS 09/30/2013 12/28/2013 Inactive Generic For:GLUCOPHAGE 1000MG TAB Generic For:GLUCOPHAGE 1000MG TAB Avapro 300 mg tablet RxNorm: 048147 Tablet(s) PO TAKE ONE (1) TABLET BY MOUTH DAILY 08/28/2013 08/25/2014 Inactive Generic For:*AVAPRO 300MG TAB Generic For:*AVAPRO 300MG TAB 08/28/2013 8:53:42 AM lovastatin 20 mg tablet RxNorm: 707031 Tablet(s) PO TAKE ONE (1) TABLET BY MOUTH DAILY 08/14/2013 10/05/2014 Inactive Generic For:MEVACOR 20 MG TABLET Generic For:MEVACOR 20 MG TABLET 08/14/2013 8:06:44 AM metformin 1,000 mg tablet RxNorm: 528225 Tablet(s) PO TAKE 1 TABLET BY MOUTH TWICE DAILY AFTER MEALS 07/16/2013 09/29/2013 Inactive Generic For:GLUCOPHAGE 1000MG TAB Generic For:GLUCOPHAGE 1000MG TAB Influenza Virus Vaccine 0.5 mL RxNorm: IM 07/01/2013 07/01/2013 Inactive Contour Test Strips RxNorm: strip miscellaneous USE TO TEST BLOOD SUGAR THREE TIMES DAILY DIRECTED 06/29/2013 03/14/2014 Inactive metformin 1,000 mg tablet RxNorm: 039080 Tablet(s) PO TAKE 1 TABLET BY MOUTH TWICE DAILY AFTER MEALS 04/14/2013 07/15/2013 Inactive Generic For:GLUCOPHAGE 1000MG TAB meloxicam 15 mg tablet RxNorm: 731006 Tablet(s) PO TAKE ONE TABLET BY MOUTH EVERY DAY 03/21/2013 03/14/2014 Inactive Generic For:MOBIC 15MG TAB 03/19/2013 8:10:41 AM Lantus 100 unit/mL subcutaneous solution RxNorm: 687287 25 Unit(s) SQ BID break up lantus to two shots daily of 25 units each shot 03/04/2013 06/01/2013 Inactive Insulin Syringe 0.3 mL 29 X 5/16" RxNorm: 1 Unit Dose Miscellaneous BID 02/04/2013 09/01/2013 Inactive Lantus 100 unit/mL Sub-Q RxNorm: 978225 20 Unit(s) SQ BID break up lantus to two shots daily of 20units each shot 02/04/2013 03/03/2013 Inactive topiramate 25 mg tablet RxNorm: 217763 1 Tablet(s) PO daily 02/04/2013 04/08/2013 Inactive metformin 1,000 mg tablet RxNorm: 482963 Tablet(s) PO TAKE 1 TABLET BY MOUTH TWICE DAILY AFTER MEALS 01/15/2013 04/13/2013 Inactive Generic For:GLUCOPHAGE 1000MG TAB Lantus 100 unit/mL Sub-Q RxNorm: 772699 30 Unit(s) SQ QPM 12/03/2012 01/01/2013 Inactive Kenalog 40 mg/mL Susp for Injection RxNorm: 7111857 1 Milliliter(s) Inj 09/25/2012 09/25/2012 Inactive Lantus 100 unit/mL Sub-Q RxNorm: 388295 25 Unit(s) SQ QPM 09/12/2012 10/11/2012 Inactive Avapro 300 mg tablet RxNorm: 372682 Tablet(s) PO TAKE ONE (1) TABLET BY MOUTH DAILY 09/03/2012 09/02/2012 Inactive Generic For:AVAPRO 300MG TAB Avapro 300 mg tablet RxNorm: 433638 Tablet(s) PO TAKE ONE (1) TABLET BY MOUTH DAILY 09/03/2012 08/27/2013 Inactive Generic For:AVAPRO 300MG TAB Lantus 100 unit/mL Sub-Q RxNorm: 264187 20 Unit(s) SQ QPM 08/27/2012 09/11/2012 Inactive Avapro 300 mg tablet RxNorm: 622871 1 Tablet(s) PO daily 08/27/2012 09/02/2012 Inactive Lantus 100 unit/mL Sub-Q RxNorm: 728924 15 Unit(s) SQ QPM 08/07/2012 08/26/2012 Inactive metformin 1,000 mg tablet RxNorm: 425681 Tablet(s) PO 07/18/2012 01/14/2013 Inactive TAKE 1 TABLET BY MOUTH TWICE DAILY AFTER MEALS;Generic For:GLUCOPHAGE 1,000 MG TABLET Lantus 100 unit/mL Sub-Q RxNorm: 596995 13 Unit(s) SQ QPM 06/25/2012 07/24/2012 Inactive lovastatin 20 mg tablet RxNorm: 499219 Tablet(s) PO 06/20/2012 07/14/2013 Inactive TAKE 2 TABLETS BY MOUTH AT BEDTIME;Generic For:MEVACOR 20 MG TABLET Pneumovax 23 25 mcg/0.5 mL Injection RxNorm: 617340 Milliliter(s) Inj 06/04/2012 06/04/2012 Inactive Influenza Virus Vaccine 0.5 mL RxNorm: IM 06/04/2012 06/04/2012 Inactive Insulin Syringe 0.3 mL 29 X 5/16" RxNorm: 1 Unit Dose Miscellaneous daily 06/03/2012 12/29/2012 Inactive lovastatin 20 mg tablet RxNorm: 449730 Tablet(s) PO 05/14/2012 06/19/2012 Inactive TAKE 2 TABLETS BY MOUTH AT BEDTIME;Generic For:MEVACOR 20 MG TABLET Contour Test Strips RxNorm: Miscellaneous TID 04/25/2012 05/24/2012 Inactive lovastatin 20 mg tablet RxNorm: 190096 Tablet(s) PO 04/16/2012 05/13/2012 Inactive TAKE 2 TABLETS BY MOUTH AT BEDTIME;Generic For:MEVACOR 20 MG TABLET metformin 1,000 mg tablet RxNorm: 158416 Tablet(s) PO 04/16/2012 07/17/2012 Inactive TAKE 1 TABLET BY MOUTH TWICE DAILY AFTER MEALS;Generic For:GLUCOPHAGE 1,000 MG TABLET citalopram 20 mg tablet RxNorm: 728623 1 Tablet(s) PO daily 04/09/2012 09/23/2012 Inactive meloxicam 15 mg Tab RxNorm: 200713 1 Tablet(s) PO daily 2012 03/04/2012 Inactive meloxicam 15 mg Tab RxNorm: 365865 Tablet(s) PO 2012 07/19/2015 Inactive TAKE 1 TABLET BY MOUTH DAILY;Generic For:MOBIC 15MG TAB WC meloxicam 15 mg tablet RxNorm: 258647 1 Tablet(s) PO daily 2012 03/04/2012 Inactive Rocephin 500 mg Solution for Injection RxNorm: 344856 Inj 03/04/2012 03/04/2012 Inactive sulfamethoxazole 800 mg-trimethoprim 160 mg tablet RxNorm: 321894 1 Tablet(s) PO BID 03/04/2012 03/13/2012 Inactive metoprolol succinate ER 25 mg 24 hr Tab RxNorm: 089334 1 Tablet(s) PO daily 12/03/2011 11/16/2014 Inactive Byetta 10 mcg/0.04 mL per dose Sub-Q Pen Injector RxNorm: 414769 10 Microgram(s) SQ BID 10 meq twice daily before the two largest meals of the day. 12/03/2011 06/03/2012 Inactive Plavix 75 mg Tab RxNorm: 230814 1 Tablet(s) PO daily 12/03/2011 11/16/2014 Inactive lovastatin 20 mg tablet RxNorm: 846084 2 Tablet(s) PO daily 11/12/2011 04/15/2012 Inactive TAKE 2 TABLETS BY MOUTH DAILY AT BEDTIME;Generic For:MEVACOR 20 MG TABLET N O T I C E Last dispense quantity was less than original quantity written Avapro 300 mg tablet RxNorm: 817830 1 Tablet(s) PO daily 08/28/2011 08/21/2012 Inactive metformin 1,000 mg Tab RxNorm: 501944 1 Tablet(s) PO BID 07/09/2011 07/02/2012 Inactive Victoza 0.6 mg/0.1 mL (18 mg/3 mL) Sub-Q Pen Injector RxNorm: 199914 1.8 Milligram(s) SQ daily 06/20/2011 03/04/2012 Inactive Fish Oil 1,000 mg capsule RxNorm: 1 Capsule(s) PO BID No Start Date Active Ocuvite oral RxNorm: 901681 oral No Start Date Active Farxiga 5 mg tablet RxNorm: 6490152 1 Tablet(s) PO QAM No Start Date Active potassium gluconate 595 mg (99 mg) tablet RxNorm: 190024 1 Tablet(s) PO daily No Start Date Active aspirin 81 mg Cap, Delayed Release RxNorm: 556054 1 Capsule(s) PO daily No Start Date Active multivitamin tablet RxNorm: oral No Start Date Active B Complex 1 oral RxNorm: 12992 oral No Start Date Active Protonix 40 mg tablet,delayed release RxNorm: 658205 1 Tablet(s) PO daily No Start Date 09/26/2017 Inactive Bydureon 2 mg SubQ Susp RxNorm: 7589774 1 SQ QW No Start Date 06/03/2012 Inactive Avapro 150 mg Tab RxNorm: 107037 1 Tablet(s) PO daily No Start Date 03/04/2012 Inactive Travatan Z 0.004 % Eye Drops RxNorm: 080882 1 Drop(s) OPH daily No Start Date 06/14/2014 Inactive metformin 1,000 mg tablet RxNorm: 158768 1 Tablet(s) PO BID No Start Date 03/04/2012 Inactive magnesium oxide 400 mg tablet RxNorm: 019490 Tablet(s) PO No Start Date 09/26/2017 Inactive Ativan 0.5 mg tablet RxNorm: 902233 1 Tablet(s) PO No Start Date 10/09/2013 Inactive 1 30 min prior to procedure meloxicam 15 mg Tab RxNorm: 544003 1 Tablet(s) PO daily No Start Date 03/04/2012 Inactive lovastatin 20 mg Tab RxNorm: 506865 2 Tablet(s) PO QHS No Start Date 11/12/2011 Inactive Pen Needle 31 x 3/16" RxNorm: Miscellaneous BID Pen [place] 31g/8mm BD to use for Byetta injection BID No Start Date 06/03/2012 Inactive Medication Administered Medication Codes Instructions Start Date Status Kenalog 40 mg/mL suspension for injection RxNorm: 1181250 1Milliliter 06/04/2017 No longer Active Kenalog 40 mg/mL suspension for injection RxNorm: 3922026 1Milliliter 06/21/2016 No longer Active Kenalog 40 mg/mL suspension for injection RxNorm: 1903351 1Milliliter 05/04/2014 No longer Active Influenza Virus Vaccine 0.5 mL RxNorm: 07/01/2013 No longer Active Kenalog 40 mg/mL Susp for Injection RxNorm: 4248055 1Milliliter 09/25/2012 No longer Active Influenza Virus Vaccine 0.5 mL RxNorm: 06/04/2012 No longer Active Pneumovax 23 25 mcg/0.5 mL Injection RxNorm: 800653 Milliliter 06/04/2012 No longer Active Rocephin 500 mg Solution for Injection RxNorm: 413059 03/04/2012 No longer Active Immunizations Vaccine Codes [...] 09/27/2010 completed Assessments Condition Codes Effective Dates Type 2 diabetes mellitus without complications ICD-10: E11.9 ICD-9: 250.00 10/09/2018 Essential (primary) hypertension ICD-10: I10 ICD-9: 401.1 10/09/2018 Mixed hyperlipidemia ICD-10: E78.2 ICD-9: 272.2 10/09/2018 Essential (primary) hypertension ICD-10: I10 ICD-9: 401.9 [...] 331.83 02/08/2014 Nightmares ICD-9: 307.47 02/08/2014 DIETARY SURVEIL/UPHOLSTERY TRIMMER ICD-9: V65.3 10/14/2013 Thumb pain ICD-9: 729.5 [...] 13.0 g/dl 10/08/2018 Cbc With Differential Ord2 Neut% 51.9 % 10/08/2018 Cbc With Differential Ord2 HCT 38.5 % 10/08/2018 Cbc With Differential Ord2 MCV 90.2 fl 10/08/2018 Cbc With Differential Ord2 Lymph% 31.9 % 10/08/2018 Cbc With Differential Ord2 Granite% 11.1 % 10/08/2018 Cbc With Differential Ord2 MCH 30.4 pg 10/08/2018 Cbc With Differential Ord2 Eos% 4.4 % 10/08/2018 Cbc With Differential Ord2 MCHC 33.8 pg 10/08/2018 Cbc With Differential Ord2 Baso% 0.7 % 10/08/2018 Cbc With Differential Ord2 PLT 271 K/ul 10/08/2018 Cbc With Differential Ord2 Neut ABS# 2.80 K/ul 10/08/2018 Cbc With Differential Ord2 RDW 14.3 % 10/08/2018 Cbc With Differential Ord2 Lymph ABS# 1.72 K/ul 10/08/2018 Cbc With Differential Ord2 Granite ABS# 0.6 K/ul 10/08/2018 Cbc With Differential Ord2 Eos ABS# 0.2 K/ul 10/08/2018 Cbc With Differential Ord2 Baso ABS# 0.0 K/ul 10/08/2018 %Hba1C Hgk364 % HbA1c 32657- 6 7.2 % 10/08/2018 %Hba1C Djw762 Gluc Ave 160 mg/dL 10/08/2018 Comp Metabolic Qhr320 NA 143 mEq/L 10/08/2018 Comp Metabolic Qgb448 K 4.4 mEq/L 10/08/2018 Comp Metabolic Slj337 CL 105 mEq/L 10/08/2018 Comp Metabolic Zbs251 CO2 28.0 mEq/L 10/08/2018 Comp Metabolic Ihf171 ANION GAP 14 10/08/2018 Comp Metabolic Ovu561 GLUCOSE 127 mg/dL 10/08/2018 Comp Metabolic Uoz516 Creat 1.1 mg/dL 10/08/2018 Comp Metabolic Epc159 eGFR 72 ml/min/1.73m2 10/08/2018 Comp Metabolic Uuo358 BUN 18 mg/dL 10/08/2018 Comp Metabolic Arg699 B/C Ratio 17.0 Ratio 10/08/2018 Comp Metabolic Zzd503 CALCIUM 9.8 mg/dL 10/08/2018 Comp Metabolic Fwl838 ALK PHOS 50 U/L 10/08/2018 Comp Metabolic Ryu074 AST(SGOT) 37 U/L 10/08/2018 Comp Metabolic Kqh289 ALT(SGPT) 37 U/L 10/08/2018 Comp Metabolic Dzz301 BILI T 0.8 mg/dL 10/08/2018 Comp Metabolic Pdk835 ALBUMIN 4.4 g/dL 10/08/2018 Comp Metabolic Dyy612 TPRO 7.1 g/dL 10/08/2018 Comp Metabolic Kaa330 GLOB 2.7 g/dL 10/08/2018 Comp Metabolic Ovo615 A/G Ratio 1.6 Ratio 10/08/2018 Comp Metabolic Wdg292 Osmo 288 mOsmo 10/08/2018 Lipid Ord30 CHOL 150 mg/dL 10/08/2018 Lipid Ord30 HDL 45.0 mg/dl 10/08/2018 Lipid Ord30 TRIG 190 mg/dL 10/08/2018 Lipid Ord30 LDL 67 mg/dL 10/08/2018 Lipid Ord30 C/HDL 3.3 Ratio 10/08/2018 Tsh Ord6 TSH (3rd IS) 1.80 uIU/mL 10/08/2018 %Hba1C Efk118 % HbA1c 44542- 6 7.6 % 07/04/2018 %Hba1C Mzv709 Gluc Ave 171 mg/dL 07/04/2018 Comp Metabolic Bww290 NA 140 mEq/L 07/04/2018 Comp Metabolic Bmo285 K 4.5 mEq/L 07/04/2018 Comp Metabolic Hjl937 CL 104 mEq/L 07/04/2018 Comp Metabolic Jvv519 CO2 28.0 mEq/L 07/04/2018 Comp Metabolic Luk536 ANION GAP 13 07/04/2018 Comp Metabolic Fig889 GLUCOSE 211 mg/dL 07/04/2018 Comp Metabolic Xco823 Creat 0.9 mg/dL 07/04/2018 Comp Metabolic Rzh261 eGFR 85 ml/min/1.73m2 07/04/2018 Comp Metabolic Woi758 BUN 20 mg/dL 07/04/2018 Comp Metabolic Lcn725 B/C Ratio 21.7 Ratio 07/04/2018 Comp Metabolic Aud622 CALCIUM 9.5 mg/dL 07/04/2018 Comp Metabolic Edi667 ALK PHOS 46 U/L 07/04/2018 Comp Metabolic Ttw684 AST(SGOT) 26 U/L 07/04/2018 Comp Metabolic Xjk495 ALT(SGPT) 29 U/L 07/04/2018 Comp Metabolic Ysb440 BILI T 0.6 mg/dL 07/04/2018 Comp Metabolic Nqi925 ALBUMIN 4.2 g/dL 07/04/2018 Comp Metabolic Qig818 TPRO 6.8 g/dL 07/04/2018 Comp Metabolic Mfj570 GLOB 2.6 g/dL 07/04/2018 Comp Metabolic Xld937 A/G Ratio 1.6 Ratio 07/04/2018 Comp Metabolic Sjj637 Osmo 288 mOsmo 07/04/2018 Tsh Ord6 TSH (3rd IS) 2.82 uIU/mL 07/04/2018 Cbc With Differential Ord2 WBC 6.97 K/ul 07/04/2018 Cbc With Differential Ord2 RBC 4.03 M/ul 07/04/2018 Cbc With Differential Ord2 HGB 12.5 g/dl 07/04/2018 Cbc With Differential Ord2 Neut% 55.3 % 07/04/2018 Cbc With Differential Ord2 HCT 37.0 % 07/04/2018 Cbc With Differential Ord2 Lymph% 26.7 % 07/04/2018 Cbc With Differential Ord2 MCV 91.8 fl 07/04/2018 Cbc With Differential Ord2 Granite% 12.9 % 07/04/2018 Cbc With Differential Ord2 MCH 31.0 pg 07/04/2018 Cbc With Differential Ord2 Eos% 4.0 % 07/04/2018 Cbc With Differential Ord2 MCHC 33.8 pg 07/04/2018 Cbc With Differential Ord2 Baso% 1.1 % 07/04/2018 Cbc With Differential Ord2 PLT 239 K/ul 07/04/2018 Cbc With Differential Ord2 Neut ABS# 3.85 K/ul 07/04/2018 Cbc With Differential Ord2 RDW 14.4 % 07/04/2018 Cbc With Differential Ord2 Lymph ABS# 1.86 K/ul 07/04/2018 Cbc With Differential Ord2 Granite ABS# 0.9 K/ul 07/04/2018 Cbc With Differential Ord2 Eos ABS# 0.3 K/ul 07/04/2018 Cbc With Differential Ord2 Baso ABS# 0.1 K/ul 07/04/2018 Lipid Ord30 CHOL 159 mg/dL 07/04/2018 Lipid Ord30 HDL 45.0 mg/dl 07/04/2018 Lipid Ord30 TRIG 244 mg/dL 07/04/2018 Lipid Ord30 LDL 65 mg/dL 07/04/2018 Lipid Ord30 C/HDL 3.5 Ratio 07/04/2018 %Hba1C Cng784 % HbA1c 29468- 6 8.0 % 03/06/2018 %Hba1C Flr666 Gluc Ave 183 mg/dL 03/06/2018 Lipid Ord30 [...] 29.1 % 03/04/2018 Cbc With Differential Ord2 Granite% 12.2 % 03/04/2018 Cbc With Differential Ord2 MCH 30.2 pg 03/04/2018 Cbc With Differential Ord2 Eos% 3.3 % 03/04/2018 Cbc With Differential Ord2 MCHC 33.2 pg 03/04/2018 Cbc With Differential Ord2 PLT 237 K/ul 03/04/2018 Cbc With Differential Ord2 Baso% 1.1 % 03/04/2018 Cbc With Differential Ord2 RDW 14.4 % 03/04/2018 Cbc With Differential Ord2 Neut ABS# 3.61 K/ul 03/04/2018 Cbc With Differential Ord2 Lymph ABS# 1.93 K/ul 03/04/2018 Cbc With Differential Ord2 Granite ABS# 0.8 K/ul 03/04/2018 Cbc With Differential Ord2 Eos ABS# 0.2 K/ul 03/04/2018 Cbc With Differential Ord2 Baso ABS# 0.1 K/ul 03/04/2018 Comp Metabolic Ybb276 NA 139 mEq/L 03/04/2018 Comp Metabolic Vys848 K 4.5 mEq/L 03/04/2018 Comp Metabolic Tae561 CL 102 mEq/L 03/04/2018 Comp Metabolic Nog992 CO2 28.0 mEq/L 03/04/2018 Comp Metabolic Ply785 ANION GAP 14 03/04/2018 Comp Metabolic Fme814 GLUCOSE 201 mg/dL 03/04/2018 Comp Metabolic Hdo205 Creat 1.0 mg/dL 03/04/2018 Comp Metabolic Xbo690 eGFR 78 ml/min/1.73m2 03/04/2018 Comp Metabolic Oga175 BUN 18 mg/dL 03/04/2018 Comp Metabolic Ciu511 B/C Ratio 18.0 Ratio 03/04/2018 Comp Metabolic Brb912 CALCIUM 9.4 mg/dL 03/04/2018 Comp Metabolic Imq143 ALK PHOS 40 U/L 03/04/2018 Comp Metabolic Gih283 AST(SGOT) 21 U/L 03/04/2018 Comp Metabolic Apx236 ALT(SGPT) 27 U/L 03/04/2018 Comp Metabolic Bmi635 BILI T 0.6 mg/dL 03/04/2018 Comp Metabolic Hzt242 ALBUMIN 4.1 g/dL 03/04/2018 Comp Metabolic Rek504 TPRO 6.7 g/dL 03/04/2018 Comp Metabolic Www766 GLOB 2.7 g/dL 03/04/2018 Comp Metabolic Shx534 A/G Ratio 1.5 Ratio 03/04/2018 Comp Metabolic Rdz298 Osmo 285 mOsmo 03/04/2018 Lipid Ord30 CHOL 171 mg/dL 11/20/2017 Lipid Ord30 HDL 52.0 mg/dl 11/20/2017 Lipid Ord30 TRIG 248 mg/dL 11/20/2017 Lipid Ord30 LDL 69 mg/dL 11/20/2017 Lipid Ord30 C/HDL 3.3 Ratio 11/20/2017 %Hba1C Kpu778 % HbA1c 13577- 6 7.7 % 11/20/2017 %Hba1C Vzv477 Gluc Ave 174 mg/dL 11/20/2017 Comp Metabolic Yfa262 NA 140 mEq/L 11/20/2017 Comp Metabolic Kye922 K 4.3 mEq/L 11/20/2017 Comp Metabolic Hia325 CL 103 mEq/L 11/20/2017 Comp Metabolic Fmw824 CO2 27.0 mEq/L 11/20/2017 Comp Metabolic Oux659 ANION GAP 14 11/20/2017 Comp Metabolic Kuj425 GLUCOSE 151 mg/dL 11/20/2017 Comp Metabolic Pml568 Creat 0.9 mg/dL 11/20/2017 Comp Metabolic Ncq736 eGFR 87 ml/min/1.73m2 11/20/2017 Comp Metabolic Cij182 BUN 25 mg/dL 11/20/2017 Comp Metabolic Evi802 B/C Ratio 27.5 Ratio 11/20/2017 Comp Metabolic Gpp681 CALCIUM 9.7 mg/dL 11/20/2017 Comp Metabolic Ehq706 ALK PHOS 49 U/L 11/20/2017 Comp Metabolic Fxs271 AST(SGOT) 25 U/L 11/20/2017 Comp Metabolic Dwx491 ALT(SGPT) 24 U/L 11/20/2017 Comp Metabolic Nhy431 BILI T 0.6 mg/dL 11/20/2017 Comp Metabolic Qzx022 ALBUMIN 4.2 g/dL 11/20/2017 Comp Metabolic Xup816 TPRO 6.6 g/dL 11/20/2017 Comp Metabolic Qsi434 GLOB 2.4 g/dL 11/20/2017 Comp Metabolic Qvp569 A/G Ratio 1.8 Ratio 11/20/2017 Comp Metabolic Tqy738 Osmo 287 mOsmo 11/20/2017 Cbc With Differential Ord2 WBC 6.62 K/ul 07/25/2017 Cbc With Differential Ord2 RBC 4.03 M/ul 07/25/2017 Cbc With Differential Ord2 HGB 12.5 g/dl 07/25/2017 Cbc With Differential Ord2 Neut% 54.6 % 07/25/2017 Cbc With Differential Ord2 HCT 37.3 % 07/25/2017 Cbc With Differential Ord2 Lymph% 28.5 % 07/25/2017 Cbc With Differential Ord2 MCV 92.6 fl 07/25/2017 Cbc With Differential Ord2 Granite% 13.3 % 07/25/2017 Cbc With Differential Ord2 MCH 31.0 pg 07/25/2017 Cbc With Differential Ord2 MCHC 33.5 pg 07/25/2017 Cbc With Differential Ord2 Eos% 2.7 % 07/25/2017 Cbc With Differential Ord2 PLT 239 K/ul 07/25/2017 Cbc With Differential Ord2 Baso% 0.9 % 07/25/2017 Cbc With Differential Ord2 Neut ABS# 3.61 K/ul 07/25/2017 Cbc With Differential Ord2 RDW 14.9 % 07/25/2017 Cbc With Differential Ord2 Lymph ABS# 1.89 K/ul 07/25/2017 Cbc With Differential Ord2 Granite ABS# 0.9 K/ul 07/25/2017 Cbc With Differential Ord2 Eos ABS# 0.2 K/ul 07/25/2017 Cbc With Differential Ord2 Baso ABS# 0.1 K/ul 07/25/2017 Comp Metabolic Bjp837 NA 140 mEq/L 07/25/2017 Comp Metabolic Pfh489 K 4.7 mEq/L 07/25/2017 Comp Metabolic Rlp123 CL 102 mEq/L 07/25/2017 Comp Metabolic Wof854 CO2 30.0 mEq/L 07/25/2017 Comp Metabolic Ixy585 ANION GAP 13 07/25/2017 Comp Metabolic Fpq433 GLUCOSE 178 mg/dL 07/25/2017 Comp Metabolic Dba906 Creat 1.0 mg/dL 07/25/2017 Comp Metabolic Moj617 eGFR 75 ml/min/1.73m2 07/25/2017 Comp Metabolic Xcf376 BUN 23 mg/dL 07/25/2017 Comp Metabolic Jsg108 B/C Ratio 22.3 Ratio 07/25/2017 Comp Metabolic Yqz197 CALCIUM 9.7 mg/dL 07/25/2017 Comp Metabolic Iwd426 ALK PHOS 40 U/L 07/25/2017 Comp Metabolic Ztq467 AST(SGOT) 22 U/L 07/25/2017 Comp Metabolic Icc904 ALT(SGPT) 25 U/L 07/25/2017 Comp Metabolic Eet508 BILI T 0.7 mg/dL 07/25/2017 Comp Metabolic Ycc888 ALBUMIN 4.0 g/dL 07/25/2017 Comp Metabolic Gzz773 TPRO 6.7 g/dL 07/25/2017 Comp Metabolic Hyt875 GLOB 2.7 g/dL 07/25/2017 Comp Metabolic Ovk293 A/G Ratio 1.5 Ratio 07/25/2017 Comp Metabolic Jnw164 Osmo 288 mOsmo 07/25/2017 %Hba1C Vnq297 % HbA1c 61445- 6 7.1 % 07/25/2017 %Hba1C Ebt264 Gluc Ave 157 mg/dL 07/25/2017 Lipid Ord30 CHOL 164 mg/dL 07/25/2017 Lipid Ord30 HDL 49.0 mg/dl 07/25/2017 Lipid Ord30 TRIG 266 mg/dL 07/25/2017 Lipid Ord30 LDL 62 mg/dL 07/25/2017 Lipid Ord30 C/HDL 3.3 Ratio 07/25/2017 Comp Metabolic Xfw535 NA 140 mEq/L 04/02/2017 Comp Metabolic Znf547 K 4.4 mEq/L 04/02/2017 Comp Metabolic Dkm510 CL 103 mEq/L 04/02/2017 Comp Metabolic Dfs665 CO2 27.0 mEq/L 04/02/2017 Comp Metabolic Hdp875 ANION GAP 14 04/02/2017 Comp Metabolic Fdv151 GLUCOSE 182 mg/dL 04/02/2017 Comp Metabolic Bpb975 Creat 1.1 mg/dL 04/02/2017 Comp Metabolic Vzy466 eGFR 73 ml/min/1.73m2 04/02/2017 Comp Metabolic Ife042 BUN 26 mg/dL 04/02/2017 Comp Metabolic Gym079 B/C Ratio 24.5 Ratio 04/02/2017 Comp Metabolic Cal402 CALCIUM 9.4 mg/dL 04/02/2017 Comp Metabolic Bxp350 ALK PHOS 43 U/L 04/02/2017 Comp Metabolic Vwo970 AST(SGOT) 19 U/L 04/02/2017 Comp Metabolic Vif726 ALT(SGPT) 20 U/L 04/02/2017 Comp Metabolic Olc673 BILI T 0.7 mg/dL 04/02/2017 Comp Metabolic Eej340 ALBUMIN 4.0 g/dL 04/02/2017 Comp Metabolic Nzf649 TPRO 6.6 g/dL 04/02/2017 Comp Metabolic Ouw168 GLOB 2.6 g/dL 04/02/2017 Comp Metabolic Jvk365 A/G Ratio 1.6 Ratio 04/02/2017 Comp Metabolic Tpw547 Osmo 289 mOsmo 04/02/2017 %Hba1C Xtc779 % HbA1c 51664- 6 7.9 % 04/02/2017 %Hba1C Bbb716 Gluc Ave 180 mg/dL 04/02/2017 Cbc With Differential Ord2 WBC 7.39 K/ul 04/02/2017 Cbc With Differential Ord2 RBC 4.08 M/ul 04/02/2017 Cbc With Differential Ord2 HGB 12.5 g/dl 04/02/2017 Cbc With Differential Ord2 Neut% 54.4 % 04/02/2017 Cbc With Differential Ord2 HCT 37.3 % 04/02/2017 Cbc With Differential Ord2 Lymph% 29.9 % 04/02/2017 Cbc With Differential Ord2 MCV 91.4 fl 04/02/2017 Cbc With Differential Ord2 Granite% 11.5 % 04/02/2017 Cbc With Differential Ord2 MCH 30.6 pg 04/02/2017 Cbc With Differential Ord2 Eos% 3.4 % 04/02/2017 Cbc With Differential Ord2 MCHC 33.5 pg 04/02/2017 Cbc With Differential Ord2 Baso% 0.8 % 04/02/2017 Cbc With Differential Ord2 PLT 253 K/ul 04/02/2017 Cbc With Differential Ord2 RDW 14.4 % 04/02/2017 Cbc With Differential Ord2 Neut ABS# 4.02 K/ul 04/02/2017 Cbc With Differential Ord2 Lymph ABS# 2.21 K/ul 04/02/2017 Cbc With Differential Ord2 Granite ABS# 0.9 K/ul 04/02/2017 Cbc With Differential [...] 12.6 g/dl 12/04/2016 Cbc With Differential Ord2 Neut% 60.3 % 12/04/2016 Cbc With Differential Ord2 HCT 37.6 % 12/04/2016 Cbc With Differential Ord2 Lymph% 24.8 % 12/04/2016 Cbc With Differential Ord2 MCV 91.3 fl 12/04/2016 Cbc With Differential Ord2 MCH 30.6 pg 12/04/2016 Cbc With Differential Ord2 Granite% 10.7 % 12/04/2016 Cbc With Differential Ord2 MCHC 33.5 pg 12/04/2016 Cbc With Differential Ord2 Eos% 3.1 % 12/04/2016 Cbc With Differential Ord2 Baso% 1.1 % 12/04/2016 Cbc With Differential Ord2 PLT 254 K/ul 12/04/2016 Cbc With Differential Ord2 RDW 14.3 % 12/04/2016 Cbc With Differential Ord2 Neut ABS# 4.27 K/ul 12/04/2016 Cbc With Differential Ord2 Lymph ABS# 1.76 K/ul 12/04/2016 Cbc With Differential Ord2 Granite ABS# 0.8 K/ul 12/04/2016 Cbc With Differential Ord2 Eos ABS# 0.2 K/ul 12/04/2016 Cbc With Differential Ord2 Baso ABS# 0.1 K/ul 12/04/2016 Lipid Ord30 CHOL 156 mg/dL 12/04/2016 Lipid Ord30 HDL 47.0 mg/dl 12/04/2016 Lipid Ord30 TRIG 219 mg/dL 12/04/2016 Lipid Ord30 LDL 65 mg/dL 12/04/2016 Lipid Ord30 C/HDL 3.3 Ratio 12/04/2016 Comp Metabolic Xtq661 NA 139 mEq/L 12/04/2016 Comp Metabolic Qte947 K 4.4 mEq/L 12/04/2016 Comp Metabolic Ykv181 CL 103 mEq/L 12/04/2016 Comp Metabolic Xqa764 CO2 27.0 mEq/L 12/04/2016 Comp Metabolic Xuk522 ANION GAP 13 12/04/2016 Comp Metabolic Wdc080 GLUCOSE 147 mg/dL 12/04/2016 Comp Metabolic Hta293 Creat 1.0 mg/dL 12/04/2016 Comp Metabolic Ife133 eGFR 83 ml/min/1.73m2 12/04/2016 Comp Metabolic Njh414 BUN 20 mg/dL 12/04/2016 Comp Metabolic Kux485 B/C Ratio 21.1 Ratio 12/04/2016 Comp Metabolic Zjq142 CALCIUM 9.5 mg/dL 12/04/2016 Comp Metabolic Aaw400 ALK PHOS 44 U/L 12/04/2016 Comp Metabolic Jxs693 AST(SGOT) 22 U/L 12/04/2016 Comp Metabolic Gtw062 ALT(SGPT) 23 U/L 12/04/2016 Comp Metabolic Wmp985 BILI T 0.8 mg/dL 12/04/2016 Comp Metabolic Bin328 ALBUMIN 3.9 g/dL 12/04/2016 Comp Metabolic Xea285 TPRO 6.3 g/dL 12/04/2016 Comp Metabolic Koa721 GLOB 2.4 g/dL 12/04/2016 Comp Metabolic Dfg236 A/G Ratio 1.7 Ratio 12/04/2016 Comp Metabolic Klb225 Osmo 283 mOsmo 12/04/2016 Tsh Ord6 hTSH II 3.35 uIU/mL 12/04/2016 %Hba1C Kwk212 % HbA1c 04629- 6 7.4 % 12/04/2016 %Hba1C Rho149 Gluc Ave 166 mg/dL 12/04/2016 Comp Metabolic Noh319 NA 138 mEq/L 08/28/2016 Comp Metabolic Tbv319 K 4.7 mEq/L 08/28/2016 Comp Metabolic Qng290 CL 101 mEq/L 08/28/2016 Comp Metabolic Iyr505 CO2 29.0 mEq/L 08/28/2016 Comp Metabolic Pxn762 ANION GAP 13 08/28/2016 Comp Metabolic Mqk516 GLUCOSE 188 mg/dL 08/28/2016 Comp Metabolic Ybn886 Creat 1.0 mg/dL 08/28/2016 Comp Metabolic Cfc695 eGFR 82 ml/min/1.73m2 08/28/2016 Comp Metabolic Lna952 BUN 21 mg/dL 08/28/2016 Comp Metabolic Naa690 B/C Ratio 21.9 Ratio 08/28/2016 Comp Metabolic Liq449 CALCIUM 9.6 mg/dL 08/28/2016 Comp Metabolic Tqz312 ALK PHOS 52 U/L 08/28/2016 Comp Metabolic Oqu042 AST(SGOT) 27 U/L 08/28/2016 Comp Metabolic Aui920 ALT(SGPT) 26 U/L 08/28/2016 Comp Metabolic Cfe426 BILI T 0.9 mg/dL 08/28/2016 Comp Metabolic Cfv255 ALBUMIN 4.2 g/dL 08/28/2016 Comp Metabolic Uqu659 TPRO 6.8 g/dL 08/28/2016 Comp Metabolic Vzi767 GLOB 2.6 g/dL 08/28/2016 Comp Metabolic Ipn318 A/G Ratio 1.6 Ratio 08/28/2016 Comp Metabolic Rgf826 Osmo 284 mOsmo 08/28/2016 Cbc With Differential [...] 30.9 pg 08/28/2016 Cbc With Differential Ord2 Granite% 14.3 % 08/28/2016 Cbc With Differential Ord2 MCHC 34.0 pg 08/28/2016 Cbc With Differential Ord2 Eos% 3.8 % 08/28/2016 Cbc With Differential Ord2 Baso% 0.8 % 08/28/2016 Cbc With Differential Ord2 PLT 256 K/ul 08/28/2016 Cbc With Differential Ord2 RDW 14.1 % 08/28/2016 Cbc With Differential Ord2 Neut ABS# 4.27 K/ul 08/28/2016 Cbc With Differential Ord2 Lymph ABS# 1.68 K/ul 08/28/2016 Cbc With Differential Ord2 Granite ABS# 1.1 K/ul 08/28/2016 Cbc With Differential Ord2 Eos ABS# 0.3 K/ul 08/28/2016 Cbc With Differential Ord2 Baso ABS# 0.1 K/ul 08/28/2016 %Hba1C Zzw735 % HbA1c 92784- 6 7.6 % 08/28/2016 %Hba1C Uoo431 Gluc Ave 171 mg/dL 08/28/2016 Cbc With Differential Ord2 WBC 7.42 K/ul 05/23/2016 Cbc With Differential Ord2 RBC 4.06 M/ul 05/23/2016 Cbc With Differential Ord2 HGB 12.3 g/dl 05/23/2016 Cbc With Differential Ord2 Neut% 60.6 % 05/23/2016 Cbc With Differential Ord2 HCT 37.1 % 05/23/2016 Cbc With Differential Ord2 MCV 91.4 fl 05/23/2016 Cbc With Differential Ord2 Lymph% 23.5 % 05/23/2016 Cbc With Differential Ord2 MCH 30.3 pg 05/23/2016 Cbc With Differential Ord2 Granite% 12.0 % 05/23/2016 Cbc With Differential Ord2 MCHC 33.2 pg 05/23/2016 Cbc With Differential Ord2 Eos% 3.1 % 05/23/2016 Cbc With Differential Ord2 Baso% 0.8 % 05/23/2016 Cbc With Differential Ord2 PLT 244 K/ul 05/23/2016 Cbc With Differential Ord2 RDW 14.5 % 05/23/2016 Cbc With Differential Ord2 Neut ABS# 4.50 K/ul 05/23/2016 Cbc With Differential Ord2 Lymph ABS# 1.74 K/ul 05/23/2016 Cbc With Differential Ord2 Granite ABS# 0.9 K/ul 05/23/2016 Cbc With Differential Ord2 Eos ABS# 0.2 K/ul 05/23/2016 Cbc With Differential Ord2 Baso ABS# 0.1 K/ul 05/23/2016 Tsh Ord6 hTSH II 3.24 uIU/mL 05/23/2016 %Hba1C Lpv121 % HbA1c 91730- 6 7.1 % 05/23/2016 %Hba1C Gtz636 Gluc Ave 157 mg/dL 05/23/2016 Lipid Ord30 CHOL 155 mg/dL 05/23/2016 Lipid Ord30 HDL 50.0 mg/dl 05/23/2016 Lipid Ord30 TRIG 159 mg/dL 05/23/2016 Lipid Ord30 LDL 73 mg/dL 05/23/2016 Lipid Ord30 C/HDL 3.1 Ratio 05/23/2016 Comp Metabolic Gnd304 NA 137 mEq/L 05/23/2016 Comp Metabolic Gom919 K 4.3 mEq/L 05/23/2016 Comp Metabolic Dqj491 CL 102 mEq/L 05/23/2016 Comp Metabolic Acg867 CO2 28.0 mEq/L 05/23/2016 Comp Metabolic Gtx685 ANION GAP 11 05/23/2016 Comp Metabolic Cyr258 GLUCOSE 140 mg/dL 05/23/2016 Comp Metabolic Xmd171 Creat 0.9 mg/dL 05/23/2016 Comp Metabolic Qme088 eGFR 93 ml/min/1.73m2 05/23/2016 Comp Metabolic Xdt632 BUN 23 mg/dL 05/23/2016 Comp Metabolic Amq415 B/C Ratio 26.7 Ratio 05/23/2016 Comp Metabolic Dhr692 CALCIUM 9.4 mg/dL 05/23/2016 Comp Metabolic Hak516 ALK PHOS 43 U/L 05/23/2016 Comp Metabolic Pnx041 AST(SGOT) 23 U/L 05/23/2016 Comp Metabolic Dmf268 ALT(SGPT) 23 U/L 05/23/2016 Comp Metabolic Rpf166 BILI T 0.7 mg/dL 05/23/2016 Comp Metabolic Hnb507 ALBUMIN 4.2 g/dL 05/23/2016 Comp Metabolic Xuu616 TPRO 6.8 g/dL 05/23/2016 Comp Metabolic Gew790 GLOB 2.6 g/dL 05/23/2016 Comp Metabolic Ffq172 A/G Ratio 1.6 Ratio 05/23/2016 Comp Metabolic Xai433 Osmo 280 mOsmo 05/23/2016 Cbc With Differential [...] 29.9 pg 01/24/2016 Cbc With Differential Ord2 Granite% 11.1 % 01/24/2016 Cbc With Differential Ord2 Eos% 3.5 % 01/24/2016 Cbc With Differential Ord2 MCHC 33.4 pg 01/24/2016 Cbc With Differential Ord2 PLT 251 K/ul 01/24/2016 Cbc With Differential Ord2 Baso% 0.8 % 01/24/2016 Cbc With Differential Ord2 RDW 14.3 % 01/24/2016 Cbc With Differential Ord2 Neut ABS# 4.18 K/ul 01/24/2016 Cbc With Differential Ord2 Lymph ABS# 1.92 K/ul 01/24/2016 Cbc With Differential Ord2 Granite ABS# 0.8 K/ul 01/24/2016 Cbc With Differential Ord2 Eos ABS# 0.3 K/ul 01/24/2016 Cbc With Differential Ord2 Baso ABS# 0.1 K/ul 01/24/2016 Cbc With Differential Ord2 New Analyzer Notice Please note new ref ranges starting 09-21-2015 due to implemntation of new five part differential hematolgy analyzer. 01/24/2016 Comp Metabolic Sdc050 NA 139 mEq/L 01/24/2016 Comp Metabolic Mbh065 K 4.1 mEq/L 01/24/2016 Comp Metabolic Urs626 CL 102 mEq/L 01/24/2016 Comp Metabolic Dar657 CO2 29.0 mEq/L 01/24/2016 Comp Metabolic Ixu880 ANION GAP 12 01/24/2016 Comp Metabolic Dsb457 GLUCOSE 140 mg/dL 01/24/2016 Comp Metabolic Yiz395 Creat 0.9 mg/dL 01/24/2016 Comp Metabolic Pox399 eGFR 87 ml/min/1.73m2 01/24/2016 Comp Metabolic Tqz225 BUN 20 mg/dL 01/24/2016 Comp Metabolic Feo824 B/C Ratio 22.0 Ratio 01/24/2016 Comp Metabolic Yjm757 CALCIUM 9.3 mg/dL 01/24/2016 Comp Metabolic Jzh888 ALK PHOS 46 U/L 01/24/2016 Comp Metabolic Hoc699 AST(SGOT) 23 U/L 01/24/2016 Comp Metabolic Rye745 ALT(SGPT) 22 U/L 01/24/2016 Comp Metabolic Hft042 BILI T 0.7 mg/dL 01/24/2016 Comp Metabolic Wmk714 ALBUMIN 4.1 g/dL 01/24/2016 Comp Metabolic Aei530 TPRO 6.7 g/dL 01/24/2016 Comp Metabolic Yye823 GLOB 2.6 g/dL 01/24/2016 Comp Metabolic Aay957 A/G Ratio 1.6 Ratio 01/24/2016 Comp Metabolic Gwg884 Osmo 282 mOsmo 01/24/2016 %Hba1C Wuz176 % HbA1c 82774- 6 6.8 % 01/24/2016 %Hba1C Ybf824 Gluc Ave 148 mg/dL 01/24/2016 Tsh Ord6 hTSH II 3.45 uIU/mL 01/24/2016 Lipid Ord30 CHOL 137 mg/dL 01/24/2016 Lipid Ord30 HDL 47.0 mg/dl 01/24/2016 Lipid Ord30 TRIG 161 mg/dL 01/24/2016 Lipid Ord30 LDL 58 mg/dL 01/24/2016 Lipid Ord30 C/HDL 2.9 Ratio 01/24/2016 Tsh Ord6 hTSH II 3.71 uIU/mL 10/25/2015 %Hba1C Qoo061 % HbA1c 34760- 6 7.1 % 10/25/2015 %Hba1C Gwz474 Gluc Ave 157 mg/dL 10/25/2015 Cbc With Differential Ord2 WBC 6.07 K/ul 10/25/2015 Cbc With Differential Ord2 RBC 3.97 M/ul 10/25/2015 Cbc With Differential Ord2 HGB 12.0 g/dl 10/25/2015 Cbc With Differential Ord2 Neut% 54.0 % 10/25/2015 Cbc With Differential Ord2 HCT 36.0 % 10/25/2015 Cbc With Differential Ord2 MCV 90.7 fl 10/25/2015 Cbc With Differential Ord2 Lymph% 27.8 % 10/25/2015 Cbc With Differential Ord2 Granite% 12.4 % 10/25/2015 Cbc With Differential Ord2 MCH 30.2 pg 10/25/2015 Cbc With Differential Ord2 MCHC 33.3 pg 10/25/2015 Cbc With Differential Ord2 Eos% 4.6 % 10/25/2015 Cbc With Differential Ord2 PLT 273 K/ul 10/25/2015 Cbc With Differential Ord2 Baso% 1.2 % 10/25/2015 Cbc With Differential Ord2 RDW 14.1 % 10/25/2015 Cbc With Differential Ord2 Neut ABS# 3.28 K/ul 10/25/2015 Cbc With Differential Ord2 Lymph ABS# 1.69 K/ul 10/25/2015 Cbc With Differential Ord2 Granite ABS# 0.8 K/ul 10/25/2015 Cbc With Differential [...] Ord30 C/HDL 3.2 Ratio 10/25/2015 Comp Metabolic Tsu504 NA 136 mEq/L 10/25/2015 Comp Metabolic Ktw479 K 4.0 mEq/L 10/25/2015 Comp Metabolic Kwa394 CL 102 mEq/L 10/25/2015 Comp Metabolic Mov614 CO2 26.0 mEq/L 10/25/2015 Comp Metabolic Bae636 ANION GAP 12 10/25/2015 Comp Metabolic Dtp700 GLUCOSE 119 mg/dL 10/25/2015 Comp Metabolic Axa866 Creat 1.1 mg/dL 10/25/2015 Comp Metabolic Fcd857 eGFR 69 ml/min/1.73m2 10/25/2015 Comp Metabolic Nok301 BUN 21 mg/dL 10/25/2015 Comp Metabolic Oyi418 B/C Ratio 18.8 Ratio 10/25/2015 Comp Metabolic Pkg281 CALCIUM 9.5 mg/dL 10/25/2015 Comp Metabolic Fmi284 ALK PHOS 49 U/L 10/25/2015 Comp Metabolic Khs449 AST(SGOT) 29 U/L 10/25/2015 Comp Metabolic Bjg305 ALT(SGPT) 28 U/L 10/25/2015 Comp Metabolic Cfs159 BILI T 0.7 mg/dL 10/25/2015 Comp Metabolic Jxx406 ALBUMIN 4.2 g/dL 10/25/2015 Comp Metabolic Uzg112 TPRO 6.7 g/dL 10/25/2015 Comp Metabolic Bzo315 GLOB 2.5 g/dL 10/25/2015 Comp Metabolic Zbd212 A/G Ratio 1.7 Ratio 10/25/2015 Comp Metabolic Jgy058 Osmo 276 mOsmo 10/25/2015 Sensitivity Report #1 [id number] ORGANISM ESCHERICHIA COLI 10/06/2015 Sensitivity Report #1 [id number] ORG NUMBER 1 10/06/2015 Sensitivity Report #1 [id number] AMIKACIN S 10/06/2015 Sensitivity Report #1 [id number] AMPICILLIN/SULBACTAM S 10/06/2015 Sensitivity Report #1 [id number] AMOXICILLIN/CLAV S 10/06/2015 Sensitivity Report #1 [id number] CEFEPIME S 10/06/2015 Sensitivity Report #1 [id number] CEFOTAXIME S 10/06/2015 Sensitivity Report #1 [id number] AMPICILLIN S 10/06/2015 Sensitivity Report #1 [id number] CEFTAZIDIME S 10/06/2015 Sensitivity Report #1 [id number] CEFAZOLIN S 10/06/2015 Sensitivity Report #1 [id number] CEFTRIAXONE S 10/06/2015 Sensitivity Report #1 [id number] CIPROFLOXACIN S 10/06/2015 Sensitivity Report #1 [id number] GENTAMICIN S 10/06/2015 Sensitivity Report #1 [id number] LEVOFLOXACIN S 10/06/2015 Sensitivity Report #1 [id number] CEFUROXIME S 10/06/2015 Sensitivity Report #1 [id number] MEROPENEM S 10/06/2015 Sensitivity Report #1 [id number] TETRACYCLINE S 10/06/2015 Sensitivity Report #1 [id number] ERTAPENEM S 10/06/2015 Sensitivity Report #1 [id number] TOBRAMYCIN S 10/06/2015 Sensitivity Report #1 [id number] TRIMETH/SULFA S 10/06/2015 Sensitivity Report #1 [id number] IMIPENEM S 10/06/2015 Sensitivity Report #1 [id number] NITROFURANTOIN S 10/06/2015 Sensitivity Report #1 [id number] PIPERACILLIN/TAZO S 10/06/2015 Culture Urine [id number] URINE CULTURE SEE NOTES 10/06/2015 Culture Urine [id number] SOURCE: URINE 10/06/2015 Culture Urine [id number] STATUS: FINAL 10/06/2015 Culture Urine [id number] DATE PLATED: 10/03/2015 10/06/2015 Culture Urine [id number] PRELIMINARY: 10/06/2015 Culture Urine [id number] CULTURE REPORT: 10/06/2015 Urine Culture Ucult Complete >100,000 col/ml aerobic growth sent to ref lab 10/04/2015 Comp Metabolic Gda106 NA 133 mEq/L 07/19/2015 Comp Metabolic Etd898 K 4.2 mEq/L 07/19/2015 Comp Metabolic Uum017 CL 101 mEq/L 07/19/2015 Comp Metabolic Umu735 CO2 25.0 mEq/L 07/19/2015 Comp Metabolic Yuw972 ANION GAP 11 07/19/2015 Comp Metabolic Isy631 GLUCOSE 293 mg/dL 07/19/2015 Comp Metabolic Xqq482 Creat 1.0 mg/dL 07/19/2015 Comp Metabolic Ktx478 eGFR 81 ml/min/1.73m2 07/19/2015 Comp Metabolic Vng673 BUN 19 mg/dL 07/19/2015 Comp Metabolic Fju905 B/C Ratio 19.6 Ratio 07/19/2015 Comp Metabolic Bbp151 CALCIUM 9.4 mg/dL 07/19/2015 Comp Metabolic Lbn721 ALK PHOS 61 U/L 07/19/2015 Comp Metabolic Nra538 AST(SGOT) 32 U/L 07/19/2015 Comp Metabolic Fbf453 ALT(SGPT) 41 U/L 07/19/2015 Comp Metabolic Gkn778 BILI T 0.7 mg/dL 07/19/2015 Comp Metabolic Kmn092 ALBUMIN 4.1 g/dL 07/19/2015 Comp Metabolic Fsh067 TPRO 6.7 g/dL 07/19/2015 Comp Metabolic Dmr457 GLOB 2.6 g/dL 07/19/2015 Comp Metabolic Mkb362 A/G Ratio 1.6 Ratio 07/19/2015 Comp Metabolic Bdi543 Osmo 279 mOsmo 07/19/2015 %Hba1C Nui361 % HbA1c 49496- 6 9.2 % 07/19/2015 %Hba1C Hmd251 Gluc Ave 217 mg/dL 07/19/2015 Cbc With [...] Ord6 hTSH II 2.72 uIU/mL 04/19/2015 %Hba1C Ynq097 % HbA1c 17752- 6 8.6 % 04/19/2015 %Hba1C Tye405 Gluc Ave 200 mg/dL 04/19/2015 Comp Metabolic Dgs028 NA 139 mEq/L 04/19/2015 Comp Metabolic Kwb220 K 4.2 mEq/L 04/19/2015 Comp Metabolic Plz373 CL 106 mEq/L 04/19/2015 Comp Metabolic Ajh131 CO2 27.0 mEq/L 04/19/2015 Comp Metabolic Lcm658 ANION GAP 10 04/19/2015 Comp Metabolic Sea273 GLUCOSE 157 mg/dL 04/19/2015 Comp Metabolic Oqt540 Creat 0.9 mg/dL 04/19/2015 Comp Metabolic Gcg182 eGFR 84 ml/min/1.73m2 04/19/2015 Comp Metabolic Tig974 BUN 14 mg/dL 04/19/2015 Comp Metabolic Pjy038 B/C Ratio 14.9 Ratio 04/19/2015 Comp Metabolic Zbi135 CALCIUM 9.5 mg/dL 04/19/2015 Comp Metabolic Vtx842 ALK PHOS 51 U/L 04/19/2015 Comp Metabolic Krn860 AST(SGOT) 28 U/L 04/19/2015 Comp Metabolic Mpa342 ALT(SGPT) 29 U/L 04/19/2015 Comp Metabolic Yrf279 BILI T 0.6 mg/dL 04/19/2015 Comp Metabolic Sas165 ALBUMIN 4.1 g/dL 04/19/2015 Comp Metabolic Iez998 TPRO 6.4 g/dL 04/19/2015 Comp Metabolic Cuh341 GLOB 2.3 g/dL 04/19/2015 Comp Metabolic Nhh406 A/G Ratio 1.8 Ratio 04/19/2015 Comp Metabolic Wgs417 Osmo 281 mOsmo 04/19/2015 Lipid Ord30 CHOL [...] VACC NO PRSV 3 YRS+ IM CPT-4: 37830 05/21/2018 IIV4 VACC NO PRSV 3 YRS+ IM CPT-4: 09375 05/21/2018 ADMIN INFLUENZA VIRUS VAC CPT-4: G0008 05/21/2018 ADMIN PNEUMOCOCCAL VACCINE SNOMED CT: 26137881 CPT-4: G0009 05/21/2018 FLU VAC NO PRSV 4 DONNA 3 YRS+ CPT-4: 52658 05/21/2018 PPPS, SUBSEQ VISIT CPT- 4: G0439 12/24/2017 TRIAMCINOLONE ACET INJ NOS CPT-4: J3301 12/24/2017 DRAIN/INJECT JOINT/BURSA CPT-4: 65826 12/24/2017 REMOVAL OF SKIN TAGS <W/15 CPT-4: 09410 07/02/2017 ADMIN INFLUENZA VIRUS VAC CPT-4: G0008 06/28/2017 FLU VAC NO PRSV 4 DONNA 3 YRS+ CPT-4: 40879 06/28/2017 TRIAMCINOLONE ACET INJ NOS CPT-4: J3301 06/04/2017 PPPS, SUBSEQ VISIT CPT- 4: G0439 12/13/2016 PNEUMOCOCCAL VACC [address]: 16307083 CPT-4: 17486 12/13/2016 ADMIN PNEUMOCOCCAL VACCINE SNOMED CT: 00620031 CPT-4: G0009 12/13/2016 DRAIN/INJECT JOINT/BURSA CPT-4: 14604 08/30/2016 TRIAMCINOLONE ACET INJ NOS CPT-4: J3301 08/30/2016 URINALYSIS NONAUTO W/O SCOPE CPT-4: 94105 07/13/2016 INJ TRIGGER POINT 1/2 MUSCL CPT-4: 64369 06/21/2016 ADMIN INFLUENZA VIRUS VAC CPT-4: G0008 05/24/2016 FLU VACC PRSV FREE INC ANTIG Formatting Model/CDA Sections, Assigned to/Judy Pierre CPT-4: 50609Iehdgcp 05/24/2016 URINALYSIS NONAUTO W/O SCOPE CPT-4: 83834 10/03/2015 ADMIN INFLUENZA VIRUS VAC CPT-4: G0008 07/20/2015 IMMUNIZATION ADMIN CPT- 4: 31353 07/20/2015 FLU VACC PRSV FREE INC ANTIG Formatting Model/CDA Sections, Assigned to/Judy Pierre CPT-4: 33044Bqorton 07/20/2015 URINALYSIS NONAUTO W/O SCOPE CPT-4: 99263 05/18/2015 URINALYSIS NONAUTO W/O SCOPE CPT-4: 80739 05/09/2015 ADMIN INFLUENZA VIRUS VAC CPT-4: G0008 06/03/2014 FLU VAC NO PRSV 4 DONNA 3 YRS+ Assigned to/Judy Pierre CPT-4: 29266Bvnyrfu 06/03/2014 TRIAMCINOLONE ACET INJ NOS CPT-4: J3301 05/04/2014 ADMIN INFLUENZA VIRUS VAC CPT-4: G0008 07/01/2013 FLULAVAL VACC, 3 YRS & >, IM CPT-4: Q2036 07/01/2013 PRESCRIP TRANSMIT VIA ERX SY CPT-4: G8553 03/04/2013 PRESCRIP TRANSMIT VIA ERX SY CPT-4: G8553 02/04/2013 DRAIN/INJECT JOINT/BURSA CPT-4: 55453 09/25/2012 ADMIN INFLUENZA VIRUS VAC CPT-4: G0008 06/04/2012 FLULAVAL VACC, 3 YRS & >, IM CPT-4: Q2036 06/04/2012 ADMIN PNEUMOCOCCAL VACCINE SNOMED CT: [id number] CPT-4: G0009 06/04/2012 PRESCRIP TRANSMIT VIA ERX SY CPT-4: G8553 04/09/2012 ROCEPHIN, PER 250 MG CPT- 4: J0696 03/04/2012 PRESCRIP TRANSMIT VIA ERX SY CPT-4: G8553 03/04/2012 DESTRUCT PREMALG LESION CPT-4: 34435 07/24/2011 DESTRUCT PREMALG LES 2-14 CPT-4: 24268 07/24/2011 DESTRUCT PREMALG LES 2-14 CPT-4: 93937 07/18/2011 DESTRUCT PREMALG LESION CPT-4: 03923 07/18/2011 Vital Signs Date Vital 10/09/2018 Blood Pressure 1: 148/80 Code: 8480-6 BMI: 42.3 Code: 26126-5 Heart Rate 1: 66 bpm Height: 5'6" SpO2: 97% Weight: 262 lbs 07/07/2018 Blood Pressure 1: 140/76 Code: 8480-6 BMI: 45.2 Code: 77246-2 Heart Rate 1: 66 bpm Height: 5'6" SpO2: 98% Weight: 280 lbs 05/21/2018 Blood Pressure 1: 132/74 Code: 8480-6 Blood Pressure 1: 164/78 Code: 8480-6 BMI: 44.5 Code: 99631-1 Heart Rate 1: 63 bpm Height: 5'6" SpO2: 96% Weight: 276 lbs 03/06/2018 Blood Pressure 1: 140/80 Code: 8480-6 BMI: 45.6 Code: 09994-4 Heart Rate 1: 94 bpm Height: 5'6" SpO2: 96% Weight: 282 lbs 4 oz 12/24/2017 Blood Pressure 1: 148/72 Code: 8480-6 BMI: 44.7 Code: 10500-4 Heart Rate 1: 70 bpm Height: 5'6" SpO2: 95% Waist Measure (cm): 132 cm Weight: 277 lbs 11/21/2017 Blood Pressure 1: 134/76 Code: 8480-6 BMI: 44.4 Code: 99903-6 Heart Rate 1: 63 bpm Height: 5'6" SpO2: 97% Weight: 275 lbs 07/29/2017 Blood Pressure 1: 148/76 Code: 8480-6 BMI: 43.7 Code: 32537-7 Heart Rate 1: 75 bpm Height: 5'6" SpO2: 97% Weight: 275 lbs 07/02/2017 Blood Pressure 1: 148/78 Code: 8480-6 BMI: 43.4 Code: 18359-9 Heart Rate 1: 55 bpm Height: 5'6" SpO2: 97% Weight: 273 lbs 06/04/2017 Blood Pressure 1: 132/58 Code: 8480-6 BMI: 43.1 Code: 80981-0 Heart Rate 1: 64 bpm Height: 5'6" SpO2: 96% Weight: 271 lbs 04/03/2017 Blood Pressure 1: 124/70 Code: 8480-6 BMI: 44.2 Code: 32713-6 Heart Rate 1: 70 bpm Height: 5'6" Height: 5'6" SpO2: 95% Weight: 278 lbs 12/13/2016 Blood Pressure 1: 150/78 Code: 8480-6 BMI: 44.2 Code: 98364-0 Heart Rate 1: 67 bpm Height: 5'6" SpO2: 97% Weight: 278 lbs 12/05/2016 Blood Pressure 1: 122/80 Code: 8480-6 Blood Pressure 1: 126/90 Code: 8480-6 BMI: 44.2 Code: 19288-4 Heart Rate 1: 70 bpm Height: 5'6" SpO2: 97% Weight: 278 lbs 08/30/2016 Blood Pressure 1: 134/78 Code: 8480-6 Blood Pressure 1: 134/70 Code: 8480-6 BMI: 43.9 Code: 67783-1 Heart Rate 1: 62 bpm Height: 5'6" SpO2: 98% Weight: 276 lbs 07/13/2016 Blood Pressure 1: 140/68 Code: 8480-6 BMI: 43.2 Code: 45149-7 Heart Rate 1: 59 bpm Height: 5'6" SpO2: 96% Weight: 272 lbs 06/21/2016 Blood Pressure 1: 140/70 Code: 8480-6 BMI: 43.2 Code: 16855-0 Heart Rate 1: 70 bpm Height: 5'6" SpO2: 94% Weight: 272 lbs 05/24/2016 Blood Pressure 1: 138/72 Code: 8480-6 Blood Pressure 1: 138/70 Code: 8480-6 BMI: 43.2 Code: 23021-4 Heart Rate 1: 65 bpm Height: 5'6" SpO2: 97% Weight: 272 lbs 01/24/2016 Blood Pressure 1: 122/62 Code: 8480-6 BMI: 43.1 Code: 33490-3 Heart Rate 1: 61 bpm Height: 5'6" SpO2: 97% Weight: 271 lbs 10/27/2015 Blood Pressure 1: 122/64 Code: 8480-6 BMI: 42.4 Code: 81923-7 Heart Rate 1: 58 bpm Height: 5'6" SpO2: 97% Weight: 267 lbs 09/21/2015 Blood Pressure 1: 128/70 Code: 8480-6 BMI: 43.2 Code: 32679-7 Heart Rate 1: 65 bpm Height: 5'6" SpO2: 98% Weight: 272 lbs 08/17/2015 Blood Pressure 1: 120/64 Code: 8480-6 BMI: 44.8 Code: 85642-5 Heart Rate 1: 57 bpm Height: 5'6" SpO2: 97% Weight: 282 lbs 07/20/2015 Blood Pressure 1: 144/70 Code: 8480-6 BMI: 45.3 Code: 29103-8 Heart Rate 1: 67 bpm Height: 5'6" SpO2: 95% Weight: 285 lbs 05/09/2015 Blood Pressure 1: 180/60 Code: 8480-6 Blood Pressure 2: 140/80 Code: 8480-6 04/20/2015 Blood Pressure 1: 138/64 Code: 8480-6 BMI: 45.6 Code: 59249-3 Heart Rate 1: 60 bpm Height: 5'6" SpO2: 98% Weight: 287 lbs 02/28/2015 Blood Pressure 1: 142/78 Code: 8480-6 BMI: 45.8 Code: 20832-5 Heart Rate 1: 68 bpm Height: 5'6" Weight: 288 lbs 02/14/2015 Blood Pressure 1: 142/78 Code: 8480-6 BMI: 45.3 Code: 19291-5 Heart Rate 1: 88 bpm Height: 5'6" Weight: 285 lbs 11/11/2014 Blood Pressure 1: 152/72 Code: 8480-6 Heart Rate 1: 64 bpm Weight: 282 lbs 10/04/2014 Blood Pressure 1: 140/72 Code: 8480-6 BMI: 45.6 Code: 17365-1 Heart Rate 1: 76 bpm Height: 5'6" Weight: 287 lbs 08/02/2014 Blood Pressure 1: 132/62 Code: 8480-6 BMI: 45.6 Code: 04741-7 Heart Rate 1: 64 bpm Height: 5'6" Weight: 287 lbs 06/15/2014 Blood Pressure 1: 142/62 Code: 8480-6 BMI: 44.7 Code: 40158-6 Heart Rate 1: 68 bpm Height: 5'6" SpO2: 97% Weight: 281 lbs 05/04/2014 Blood Pressure 1: 140/78 Code: 8480-6 BMI: 45.0 Code: 37923-3 Heart Rate 1: 60 bpm Height: 5'6" SpO2: 98% Weight: 283 lbs 04/19/2014 Blood Pressure 1: 130/62 Code: 8480-6 BMI: 44.7 Code: 72863-5 Heart Rate 1: 56 bpm Height: 5'6" Weight: 281 lbs 02/08/2014 Blood Pressure 1: 118/58 Code: 8480-6 BMI: 45.3 Code: 94202-4 Heart Rate 1: 60 bpm Height: 5'6" Weight: 285 lbs 01/13/2014 Blood Pressure 1: 112/52 Code: 8480-6 BMI: 44.2 Code: 74290-6 Heart Rate 1: 60 bpm Height: 5'6" Weight: 278 lbs 10/14/2013 Blood Pressure 1: 132/70 Code: 8480-6 BMI: 43.1 Code: 28587-8 Heart Rate 1: 60 bpm Height: 5'6" Weight: 271 lbs 07/01/2013 Blood Pressure 1: 158/76 Code: 8480-6 Heart Rate 1: 52 bpm Weight: 263 lbs 05/13/2013 Weight: 268 lbs 04/15/2013 Weight: 272 lbs 03/04/2013 Blood Pressure 1: 146/68 Code: 8480-6 BMI: 45.6 Code: 14265-9 Heart Rate 1: 68 bpm Height: 5'6" Weight: 287 lbs 02/04/2013 Blood Pressure 1: 140/68 Code: 8480-6 BMI: 46.1 Code: 38145-2 Heart Rate 1: 64 bpm Height: 5'6" Weight: 290 lbs 12/03/2012 Blood Pressure 1: 124/62 Code: 8480-6 BMI: 44.8 Code: 74015-6 Heart Rate 1: 64 bpm Height: 5'6" [...] 1: 146/76 Code: 8480-6 BMI: 44.7 Code: 09622-2 Heart Rate 1: 60 bpm Height: 5'6" Weight: 281 lbs 06/25/2012 Blood Pressure 1: 128/76 Code: 8480-6 BMI: 43.7 Code: 33425-7 Heart Rate 1: 72 bpm Height: 5'6" Weight: 275 lbs 06/03/2012 Blood Pressure 1: 136/62 Code: 8480-6 BMI: 43.2 Code: 72802-2 Heart Rate 1: 72 bpm Height: 5'6" Respiratory Rate: 20 bpm Weight: 272 lbs 04/24/2012 Blood Pressure 1: 116/60 Code: 8480-6 BMI: 42.3 Code: 55400-0 Heart Rate 1: 68 bpm Height: 5'6" Respiratory Rate: 16 bpm Weight: 266 lbs 04/09/2012 Blood Pressure 1: 150/82 Code: 8480-6 Heart Rate 1: 72 bpm Weight: 03/04/2012 Blood Pressure 1: 124/70 Code: 8480-6 Heart Rate 1: 72 bpm Respiratory Rate: 16 bpm Weight: 277 lbs 12/03/2011 Blood Pressure 1: 120/60 Code: 8480-6 BMI: 44.8 Code: 39437-6 Heart Rate 1: 68 bpm Height: 5'6" Respiratory Rate: 16 bpm Weight: 282 lbs 10/31/2011 Blood Pressure 1: 120/60 Code: 8480-6 BMI: 44.8 Code: 19831-2 Heart Rate 1: 74 bpm Height: 5'6" Respiratory Rate: 16 bpm Weight: 282 lbs 08/29/2011 Blood Pressure 1: 152/76 Code: 8480-6 BMI: 44.5 Code: 10111-0 Heart Rate 1: 66 bpm Height: 5'6" Respiratory Rate: 16 bpm Weight: 280 lbs 07/24/2011 Blood Pressure 1: 142/80 Code: 8480-6 BMI: 44.8 Code: 12987-2 Heart Rate 1: 66 bpm Height: 5'6" Respiratory Rate: 16 bpm Weight: 282 lbs 07/18/2011 Blood Pressure 1: 136/60 Code: 8480-6 BMI: 44.5 Code: 52720-5 Heart Rate 1: 72 bpm Height: 5'6" [...] when he could not remember what the twist maker was talking about at [facility] - pt states that he has had [...] Findings Denies lethargy 07/18/2011 None Advance Directives Advance Directives Present Encounters Encounter Performer Location Codes Date ([id number]) 80246 EST. PATIENT, LEVEL IV Diagnosis: Essential (primary) hypertension[ICD10: I10] Diagnosis: Type 2 diabetes mellitus without complications[ICD10: E11.9] Diagnosis: Mixed hyperlipidemia[ICD10: E78.2] [facility] CPT- 4: 39990 10/09/2018 ([id number]) 23999 EST. PATIENT, LEVEL IV Diagnosis: Type 2 diabetes mellitus with hyperglycemia[ICD10: E11.65] Diagnosis: Essential (primary) hypertension[ICD10: I10] Diagnosis: Low back pain[ICD10: M54.5] [facility] CPT-4: 98724 07/07/2018 ([id number]) 25117 EST. 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 CPT-4: 36092 05/21/2018 ([id number]) 11002 EST. 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 CPT-4: 63561 03/06/2018 ([id number]) 26054 EST. PATIENT, LEVEL IV Diagnosis: Type 2 diabetes mellitus with hyperglycemia[ICD10: E11.65] Diagnosis: Essential (primary) hypertension[ICD10: I10] Diagnosis: Arthralgia of bilateral temporomandibular joint[ICD10: M26.623] Maria Victoria Harrell MD, [facility] CPT-4: 03544 11/21/2017 ([id number]) 49072 EST. PATIENT, LEVEL IV Diagnosis: Type 2 diabetes mellitus without complications[ICD10: E11.9] Diagnosis: Essential (primary) hypertension[ICD10: I10] Diagnosis: Mixed hyperlipidemia[ICD10: E78.2] Maria Victoria Harrell MD, [facility] CPT- 4: 15333 07/29/2017 ([id number]) 21964 EST. PATIENT, LEVEL III Diagnosis: Lumbago with sciatica, right side[ICD10: M54.41] Sunitha Harrell MD, [facility] CPT-4: 50141 06/04/2017 ([id number]) 96046 EST. 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 CPT-4: 45597 04/03/2017 ([id number]) 77273 EST. PATIENT, LEVEL IV Diagnosis: Essential (primary) hypertension[ICD10: I10] Diagnosis: Type 2 diabetes mellitus without complications[ICD10: E11.9] Maria Victoria Harrell MD, [facility] CPT-4: 61962 12/05/2016 [id number]) 68990 EST. PATIENT, LEVEL IV Diagnosis: Essential (primary) hypertension[ICD10: I10] Diagnosis: Type 2 diabetes mellitus with hyperglycemia[ICD10: E11.65] Diagnosis: Morbid (severe) obesity due to excess calories[ICD10: E66.01] Diagnosis: Essential tremor[ICD10: G25.0] Diagnosis: Pain in right hip[ICD10: M25.551] Maria Victoria Harrell MD, [facility] CPT- 4: 12163 08/30/2016 [id number]) 43307 EST. PATIENT, LEVEL III Diagnosis: Pain in left forearm[ICD10: M79.632] Diagnosis: Dysuria[ICD10: R30.0] Sunitha Harrell MD, [facility] CPT-4: 87137 07/13/2016 [id number]) 98065 EST. PATIENT, LEVEL III Diagnosis: Type 2 diabetes mellitus with hyperglycemia[ICD10: E11.65] Diagnosis: Essential tremor[ICD10: G25.0] Diagnosis: Encounter for immunization[ICD10: Z23] Diagnosis: Essential (primary) hypertension[ICD10: I10] Maria Victoria Harrell MD, [facility] CPT-4: 37273 05/24/2016 [id number]) 95541 EST. PATIENT, LEVEL IV Diagnosis: Type 2 diabetes mellitus with hyperglycemia[ICD10: E11.65] Diagnosis: Essential (primary) hypertension[ICD10: I10] Diagnosis: Dorsalgia, unspecified[ICD10: M54.9] Maria Victoria Harrell MD, [facility] CPT- 4: 28578 01/24/2016 ([id number]) 75603 EST. PATIENT, LEVEL IV Diagnosis: Type 2 diabetes mellitus with hyperglycemia[ICD10: E11.65] Diagnosis: Essential (primary) hypertension[ICD10: I10] Diagnosis: Dorsalgia, unspecified[ICD10: M54.9] Maria Victoria Harrell MD [facility] CPT- 4: 11654 10/27/2015 ([id number]) 53086 EST. PATIENT, LEVEL III Diagnosis: Type 2 diabetes mellitus with hyperglycemia[ICD10: E11.65] SHAILA Macedo MD CPT-4: 92283 09/21/2015 ([id number]) 03517 EST. PATIENT, LEVEL IV Diagnosis: Type 2 diabetes mellitus with hyperglycemia[ICD10: E11.65] Diagnosis: Essential (primary) hypertension[ICD10: I10] Maria Victoria Harrell MD [facility] CPT-4: 28632 08/17/2015 ([id number]) 68890 EST. PATIENT, LEVEL IV Diagnosis: VACCIN FOR INFLUENZA[ICD10: Z23] Diagnosis: Type 2 diabetes mellitus with hyperglycemia[ICD10: E11.65] Diagnosis: Morbid (severe) obesity due to excess calories[ICD10: E66.01] Diagnosis: Dorsalgia, unspecified[ICD10: M54.9] Maria Victoria Harrell MD [facility] CPT- 4: 52386 07/20/2015 ([id number]) 49603 EST. PATIENT, LEVEL IV Diagnosis: Diabetes mellitus type 2, uncontrolled[ICD9: 250.02] Diagnosis: ESSENTIAL HYPERTENSION[ICD9: 401.9] Diagnosis: MORBID OBESITY[ICD9: 278.01] Diagnosis: Peripheral neuropathic pain[ICD9: 356.9] Diagnosis: Diabetic neuropathy[ICD9: 250.60] Maria Victoria Harrell MD [facility] CPT- 4: 77732 04/20/2015 ([id number]) Miscellaneous no charge Diagnosis: Cerumen impaction[ICD9: 380.4] Maria Victoria Harrell MD [facility] CPT-4: 47008 02/28/2015 ([id number]) 51316 EST. PATIENT, LEVEL IV Diagnosis: Diabetes mellitus type 2, uncontrolled[ICD9: 250.02] Diagnosis: ESSENTIAL HYPERTENSION[ICD9: 401.9] SHAILA Macedo MD CPT- 4: 54542 02/14/2015 ([id number]) 44229 EST. PATIENT, LEVEL III Diagnosis: Diabetes mellitus type 2, uncontrolled[ICD9: 250.02] SHAILA Macedo MD CPT-4: 35948 11/11/2014 ([id number]) 79334 EST. PATIENT, LEVEL IV Diagnosis: ESSENTIAL HYPERTENSION[ICD9: 401.9] Diagnosis: DIABETES TYPE II[ICD9: 250.00] Diagnosis: Esophageal reflux[ICD9: 530.81] Diagnosis: DYSPHAGIA NEC[ICD9: 787.29] Maria Victoria Harrell MD [facility] CPT-4: 96078 10/04/2014 ([id number]) 76415 EST. PATIENT, LEVEL IV Diagnosis: DIABETES TYPE II[ICD9: 250.00] Diagnosis: ESSENTIAL HYPERTENSION[ICD9: 401.9] Diagnosis: BPH (benign prostatic hyperplasia)[ICD9: 600.00] Maria Victoria Harrell MD [facility] CPT-4: 08236 08/02/2014 ([id number]) 86892 EST. PATIENT, LEVEL III Diagnosis: Enlarged prostate[ICD9: 600.00] Maria Victoria Harrell MD [facility] CPT-4: 57680 06/15/2014 ([id number]) 71590 EST. PATIENT, LEVEL III Diagnosis: Right hip pain[ICD9: 719.45] Diagnosis: BACKACHE[ICD9: 724.5] Diagnosis: Sacroiliitis[ICD9: 720.2] Sunitha Harrell MD [facility] CPT-4: 61151 05/04/2014 ([id number]) 99883 EST. PATIENT, LEVEL IV Diagnosis: DM W/O COMPLICATION TYPE II, UNCONTROLLED[ICD9: 250.02] Diagnosis: ESSENTIAL HYPERTENSION[ICD9: 401.9] Maria Victoria Harrell MD [facility] CPT- 4: 38418 04/19/2014 ([id number]) 53506 EST. PATIENT, LEVEL IV Diagnosis: Mild cognitive impairment[ICD9: 331.83] Diagnosis: Nightmares[ICD9: 307.47] Diagnosis: Sleep apnea[ICD9: 780.57] Maria Victoria Harrell MD [facility] CPT-4: 67658 02/08/2014 ([id number]) 64533 EST. PATIENT, LEVEL III Diagnosis: DM W/O COMPLICATION TYPE II, UNCONTROLLED[ICD9: 250.02] Maria Victoria Harrell MD [facility] CPT-4: 75481 01/13/2014 ([id number]) 45441 EST. 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 CPT-4: 25483 10/14/2013 ([id number]) 06374 EST. PATIENT, LEVEL IV Diagnosis: DIABETES TYPE II[SNOMED: 767984169] Diagnosis: ESSENTIAL HYPERTENSION[SNOMED: 05917139] Diagnosis: Flat feet[ICD9: 734] Maria Victoria Harrell MD [facility] CPT-4: 73385 07/01/2013 ([id number]) Miscellaneous no charge Diagnosis: DM W/O COMPLICATION TYPE II, UNCONTROLLED[SNOMED: 36633205] Diagnosis: MORBID OBESITY[ICD9: 278.01] Maria Victoria Harrell MD [facility] CPT-4: 68870 05/13/2013 ([id number]) Miscellaneous no charge Diagnosis: MORBID OBESITY[ICD9: 278.01] Maria Victoria Harrell MD, [facility] CPT-4: 12138 04/15/2013 ([id number]) 64494 EST. PATIENT, LEVEL III Diagnosis: DM W/O COMPLICATION TYPE II, UNCONTROLLED[SNOMED: 48556341] Diagnosis: Dietary restriction[ICD9: V65.3] Diagnosis: Morbid obesity with BMI of 40.0-44.9, adult[ICD9: 278.01] Maria Victoria Harrell MD, [facility] CPT-4: 31199 03/04/2013 ([id number]) 75185 EST. PATIENT, LEVEL IV Diagnosis: DM W/O COMPLICATION TYPE II, UNCONTROLLED[SNOMED: 74571378] Diagnosis: ENTHESOPATHY OF HIP[ICD9: 726.5] Diagnosis: BACKACHE[ICD9: 724.5] Maria Victoria Harrell MD, [facility] CPT-4: 44282 02/04/2013 [id number]) 53510 EST. PATIENT, LEVEL III Diagnosis: DM W/O COMPLICATION TYPE II, UNCONTROLLED[SNOMED: 53963196] Maria Victoria Harrell MD, [facility] CPT-4: 08866 12/03/2012 ([id number]) 02055 EST. PATIENT, LEVEL III Diagnosis: Tinnitus[ICD9: 388.30] Diagnosis: Cerumen impaction[ICD9: 380.4] Sunitha Harrell MD, [facility] CPT-4: 46563 10/14/2012 ([id number]) 65988 EST. PATIENT, LEVEL III Diagnosis: ENTHESOPATHY OF HIP[ICD9: 726.5] Diagnosis: JOINT PAIN-PELVIS[ICD9: 719.45] Maria Victoria Harrell MD, [facility] CPT-4: 92205 09/29/2012 17729 EST. PATIENT, LEVEL II Diagnosis: Right hip pain[ICD9: 719.45] Diagnosis: Bursitis of hip, right[ICD9: 726.5] Diagnosis: DM W/O COMPLICATION TYPE II, UNCONTROLLED[SNOMED: 61553804] Sunitha Harrell MD, [facility] CPT-4: 38007 09/25/2012 ([id number]) 54474 EST. PATIENT, LEVEL III Diagnosis: DM W/O COMPLICATION TYPE II, UNCONTROLLED[SNOMED: 78392000] Maria Victoria Harrell MD, [facility] CPT-4: 78725 08/27/2012 ([id number]) 00239 EST. PATIENT, LEVEL III Diagnosis: Diabetes mellitus out of control[SNOMED: 95167000] Maria Victoria Harrell MD, [facility] CPT-4: 41207 06/25/2012 ([id number]) 73630 EST. PATIENT, LEVEL III Diagnosis: DM W/O COMPLICATION TYPE II, UNCONTROLLED[SNOMED: 62211678] Diagnosis: ESSENTIAL HYPERTENSION[SNOMED: 50760541] Maria Victoria Harrell MD, [facility] CPT-4: 24486 06/03/2012 ([id number]) 91472 EST. PATIENT, LEVEL III Diagnosis: DM W/O COMPLICATION TYPE II, UNCONTROLLED[SNOMED: 68820671] Diagnosis: Back pain[ICD9: 724.5] Maria Victoria Harrell MD, [facility] CPT-4: 99858 04/24/2012 ([id number]) 26374 EST. PATIENT, LEVEL IV Diagnosis: BACKACHE[ICD9: 724.5] Diagnosis: MORBID OBESITY[ICD9: 278.01] Diagnosis: Depression[ICD9: 311] Maria Victoria Harrell MD, [facility] CPT-4: 60782 04/09/2012 ([id number]) 41520 EST. PATIENT, LEVEL IV Diagnosis: Diabetes mellitus type 2, uncontrolled[SNOMED: 59296989] Diagnosis: ESSENTIAL HYPERTENSION[SNOMED: 18124310] Maria Victoria Harrell MD [facility] CPT-4: 40847 03/04/2012 ([id number]) 26515 EST. PATIENT, LEVEL IV Diagnosis: DM W/O COMPLICATION TYPE II, UNCONTROLLED[SNOMED: 38267938] Diagnosis: MORBID OBESITY[ICD9: 278.01] Maria Victoria Harrell MD [facility] CPT-4: 60293 12/03/2011 ([id number]) 40426 EST. PATIENT, LEVEL IV Diagnosis: DM W/O COMPLICATION TYPE II, UNCONTROLLED[SNOMED: 61234520] Diagnosis: ESSENTIAL HYPERTENSION[SNOMED: 49776969] Diagnosis: Hyperlipidemia[ICD9: 272.4] Diagnosis: Morbid obesity[ICD9: 278.01] Maria Victoria Harrell MD [facility] CPT-4: 15715 10/31/2011 ([id number]) 31170 EST. PATIENT, LEVEL IV Diagnosis: ESSENTIAL HYPERTENSION[SNOMED: 24214167] Diagnosis: DM W/O COMPLICATION TYPE II, UNCONTROLLED[SNOMED: 54203041] Diagnosis: MORBID OBESITY[ICD9: 278.01] Maria Victoria Harrell MD [facility] CPT-4: 43779 08/29/2011 33435 EST. PATIENT, LEVEL IV Diagnosis: Diabetes mellitus type 2, uncontrolled[SNOMED: 62278351] Diagnosis: ESSENTIAL HYPERTENSION[SNOMED: 89316304] Diagnosis: Actinic keratosis[ICD9: 702.0] Maria Victoria Harrell MD, [facility] CPT-4: 16650 07/18/2011 Plan of Care Planned Activity Notes Codes Status Date Visit Plan: Diabetes Mellitus - controlled - [...] medications. 10/09/2018 [facility]ment[phone] ([facility] Complex 10/09/2018 Patient Education: Patient Medication Summary Completed 10/09/2018 Patient Education: Diabetes Completed 10/09/2018 Patient Education: Cholesterol Management Completed 10/09/2018 Care Plan: Referral Order SNOMED-CT : 798750555 Pending 10/09/2018 Patient Education: Patient Medication Summary [...] 07/07/2018 Appointment: [phone] [phone] [place] (15 min) Moderate 07/07/2018 Patient [...] disease. 05/21/2018 Appointment: Maria Victoria Harrell WPtel: [address] [place], [place] [id number] (15 min) Moderate 05/21/2018 Patient Education: Patient [...] restriction. 03/06/2018 Appointment: [facility] Victoria Harrell [facility] ([facility] min) Moderate 03/06/2018 Patient Education: Patient Medication Summary Completed 03/06/2018 Patient Education: Obesity Completed 03/06/2018 Patient Education: Patient Medication Summary Completed 03/03/2018 Care Plan: %Hba1C [facility] : 18370-6 Pending 03/03/2018 Visit Plan: Medicare Exam - [...] Completed 12/24/2017 Appointment: Sun[facility] Moran [facility] [phone] [facility] [phone] [facility] - Annual Wellness Visit 12/19/2017 Visit Plan: [...] 11/21/2017 App[facility]ment[phone] [phone] ([facility] min) Moderate 11/21/2017 Patient Education: [...] 07/29/2017 App[facility]ment[phone] ([facility] min) Moderate 07/29/2017 Patient Education: Patient Medication Summary Completed 07/29/2017 Patient Education: Obesity Completed 07/29/2017 Visit Plan: Skin tag removed - pt tolerated procedure well - Wound Instructions - Pt was instructed to keep the wound clean, wash with antibacterial soap, use triple antibiotic ointment, call if redness, pustular drainage, or any other acute concerns. 07/02/2017 Appointment: Z[facility] Carrillo [phone] [facility] [place] (30 min) Complex 07/02/2017 Patient Education: Patient Medication Summary Completed 07/02/2017 Appointment: Injection 06/28/2017 Patient Education: Patient Medication Summary Completed 06/28/2017 Visit Plan: Sciatica- exercises discussed with the patient, pt to continue with antiinflammatories. Pt is to call if the symptoms do not improve or if they worsen. Kenalog injection today in the office. 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 Hypertension - well controlled - continue with current medications, continue with no added salt diet. Pt has been encouraged to exercise daily. The pt has been advised to call the office if there are any acute concerns about change in blood pressure readings at home. 04/03/2017 Appointment: Maria Victoria Harrell [id number] (15 min) Moderate 04/03/2017 Patient Education: [...] care surrogate. 12/13/2016 Appointment: Sunitha Moran [facility]Ptel: [phone] [facility] [id number] [facility] - Annual Wellness Visit 12/13/2016 Patient Education: Patient Medication Summary Completed 12/13/2016 Care Plan: Referral Order SNOMED-CT : [id number] Pending 12/13/2016 Visit Plan: Hypertension - well [...] 12/05/2016 Appointment: Maria Victoria Harrell [facility]el[phone] [id number] ([facility] min) Moderate 12/05/2016 Patient Education: Patient Medication Summary Completed 12/05/2016 Patient Education: Obesity Completed 12/05/2016 Care Plan: CT ABD & PELVIS W/O CONTRAST LOINC : 86401-8 Pending 12/05/2016 Patient Education: Patient Medication Summary [...] 08/30/2016 [facility]ment[phone] [place] (15 min) Moderate 08/30/2016 Patient Education: Patient Medication Summary Completed 08/30/2016 Patient Education: Obesity Completed 08/30/2016 Patient Education: Hypertension Completed 08/30/2016 Patient Education: Patient Medication Summary Completed 08/23/2016 Visit Plan: Left forearm pain-use voltaren gel as needed-xray forearm for further evaluation UA negative-patient instructed to increase po fluids-call if symptoms do not resolve 07/13/2016 Appointment: Sunitha Moran WPtel: [phone] [place] (10 min) Simple 07/13/2016 Patient Education: [...] disease process. 06/21/2016 Appointment: Sunitha Moran WPtel: [phone] [place] (30 min) Complex 06/21/2016 Patient Education: Patient Medication Summary Completed 06/21/2016 Appointment: Sunitha Moran WPtel: [phone] [place] (30 min) Complex 06/15/2016 Visit Plan: [...] improve. 01/24/2016 Appointment: Maria Victoria Harrell WPtel: [address] [place], [place] [id number] (15 min) Moderate 01/24/2016 Patient Education: Patient [...] 10/27/2015 App[facility]ment: [phone] [place] (15 min) Moderate 10/27/2015 Patient [...] to allow for greater blood glucose control. 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 08/17/2015 Appointment: Maria Victoria Harrell WPtel: [phone] [facility] (15 min) Moderate 08/17/2015 Patient Education: Patient [...] belviq 07/20/2015 App[facility]ment: [phone] (15 min) Moderate 07/20/2015 Patient Education: [...] 04/20/2015 Appointment: Maria Victoria Harrell WPtel: [phone] [facility] (15 min) Moderate 04/20/2015 Patient Education: Patient [...] home. 02/14/2015 Appointment: Maria Victoria Harrell WPtel: [phone] [facility] Follow up 02/14/2015 Patient Education: Patient Medication [...] 11/11/2014 Appointment: [phone] Follow up 11/11/2014 Patient Education: Patient Medication Summary Completed 11/11/2014 Appointment: [phone] Follow up 11/04/2014 Visit Plan: Esophageal [...] home. 10/04/2014 Appointment: [phone] [place] Follow up 10/04/2014 Patient Education: Patient Medication Summary Completed 10/04/2014 Patient Education: Hypertension Completed 10/04/2014 Appointment: [phone] [place] Follow up 08/19/2014 Visit Plan: [...] avodart 08/02/2014 Appointment: Maria Victoria Harrell WPtel: [facility] Sick 08/02/2014 Patient Education: Patient Medication Summary Completed 08/02/2014 Patient Education: Hypertension Completed 08/02/2014 Visit Plan: Enlarged prostate with decreased urine flow - recommended that the patient start on tamsulosin 0.4mg daily - will need to start him on this in about 2-3 weeks. Check PSA in 2-3 weeks. 06/15/2014 Appointment: Maria Victoria Harrell WPtel[facility] [place] Follow up 06/15/2014 Patient Education: Patient Medication Summary Completed 06/15/2014 Appointment: Maria Victoria Harrell WPtel[facility] [place] Injection 06/03/2014 Patient Education: Patient [...] - pt to see this Opthamologist in [place] - May 25. 04/19/2014 Appointment: [phone] Follow up 04/19/2014 Patient Education: Patient [...] 02/08/2014 Appointment: [phone] [place] Follow up 02/08/2014 Patient Education: Patient Medication [...] shoes. 01/13/2014 Appointment: [phone] [place] Follow up 01/13/2014 Patient Education: Patient [...] - recommended referral to Dr. Fine at [facility] [address] [place] [address]. 10/14/2013 Patient Education: Patient Medication Summary Completed [...] 07/01/2013 Appointment: [facility] Victoria [phone] Follow up 07/01/2013 Patient Education: Patient Medication Summary Completed 07/01/2013 Patient Education: Hypertension Completed 07/01/2013 Appointment: Maria Victoria Harrell WPtel: [phone] [facility] [place] Other 05/13/2013 Patient Education: Patient Medication Summary Completed 05/13/2013 Appointment: Maria Victoria Harrell WPtel: [phone] [facility] Other 04/15/2013 Patient Education: Patient Medication Summary [...] loss. 03/04/2013 Appointment: Maria Victoria Harrell WPtel: [facility] Follow up 03/04/2013 Patient Education: Patient Medication [...] body. 02/04/2013 Appointment: Maria Victoria Harrell [facility]Ptel[facility] [facility] 02/04/2013 Patient Education: Patient Medication [...] bedtime. 12/03/2012 Appointment: Maria Victoria Harrell WPtel: [facility] Follow up 12/03/2012 Patient Education: Patient Medication Summary Completed 12/03/2012 Visit Plan: Tinnitus-cerumen impaction-cerumen adhered to left TM-discussed using sweet oil nightly for the next week and call if symptoms have not improved. Patient verbalized understanding of plan . 10/14/2012 Appointment: Sunitha Moran WPtel: [phone] S[place] 10/14/2012 Patient Education: Patient Medication Summary Completed 10/14/2012 Visit Plan: Arthritis- occasionally uncontrolled symptoms- recommend pt to take antiinflammatory as directed for pain control. Use tylenol for break through pain symptoms. 09/29/2012 Appointment: Maria Victoria Harrell WPtel: [facility] Other 09/29/2012 Patient Education: Patient Medication Summary [...] blood sugars 09/25/2012 Appointment: Sunitha Moran WPtel: [phone] [phone] Other 09/25/2012 Patient Education: Patient Medication Summary [...] DAILY. 08/27/2012 Appointment: Maria Victoria Harrell WPtel: [phone] [facility] Follow up 08/27/2012 Patient Education: Patient Medication [...] made. 06/25/2012 Appointment: Maria Victoria Harrell WPtel: [phone] [facility] Follow up 06/25/2012 Patient Education: Patient Medication [...] 06/03/2012 Appointment: [phone] Follow up 06/03/2012 Patient Education: Patient Medication [...] pain. 04/24/2012 Appointment: [facility] Victoria [phone] Follow up 04/24/2012 Patient Education: Patient Medication [...] 04/09/2012 Appointment: [phone] [place] 04/09/2012 Patient Education: Patient Medication Summary Completed 04/09/2012 Patient Education: .Amazing charts Exercise for Sciatica Completed 04/09/2012 Appointment: Dean Sunitha [facility]el[phone] Other 03/13/2012 Visit Plan: Diabetes [...] 03/04/2012 Appointment: [facility] Victoria [phone] [place] Other 03/04/2012 Patient Education: Patient Medication [...] pains/fatigue. 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 10/31/2011 Appointment: Maria Victoria Harrell WPtel: [phone] [facility] Other 10/31/2011 Patient Education: Patient Medication Summary [...] check. 08/29/2011 Appointment: [phone] [place] 08/29/2011 Patient Education: Patient Medication Summary Completed 08/29/2011 Patient Education: High Blood Pressure: Essential Hypertension Completed 08/29/2011 Visit Plan: left index finger irritated actinic keratosis removed actinic keratosis removed from dorsum of hand as well and in web of the 4th digit 07/24/2011 Appointment: [facility] Victoria [phone] [facility] Procedure 07/24/2011 Patient Education: Patient [...] 07/18/2011 Appointment: [facility] Victoria [phone] Other 07/18/2011 Patient Education: Patient Medication Summary Completed 07/18/2011 Patient Education: High Blood Pressure: Essential Hypertension Completed 07/18/2011 Referral: Jose Manuel Referral Appointment Requested Referral: [facility] Referral Appointment Requested Referral: Kiran Laird MD WPtel: Referral Completed Instructions Comment apply the efudex (florouracil) to the skin [...] readings are starting to become less controlled. increase insulin to 25 units bid. Diabetes [...] to obtain more profound weight loss. . Tinnitus-cerumen impaction-cerumen adhered to left TM-discussed [...] in web of the 4th digit . 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 Hypertension - well controlled - continue with current medications, continue with no added salt diet. Pt has been encouraged to exercise daily. The pt has been advised to call the office if there are any acute concerns about change in blood pressure readings at home. INCREASE LANTUS TO 30 UNITS TWICE DAILY!!!!! [...] readings at home. . Diabetes Mellitus - controlled - per [...] out other reasons for his chest pains/fatigue. 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 decrease toujeo to 25 units next week [...] call if symptoms do not improve. . Sciatica- exercises discussed with the patient, pt to continue with antiinflammatories. Pt is to call if the symptoms do not improve or if they worsen. Kenalog injection today in the office. . Skin tag removed - pt tolerated [...] low back Essential tremor - supportive care VIMOVO 1 TAB TWICE DAILY . Trigger Points - Injected trigger points today, pt given post-injection instructions, signs and symptoms for which to call the office. Pt to use heat to the muscles today, and take an anti-inflammatory today unless otherwise contraindicated by renal function or other disease process. 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 . Diabetes Mellitus - Uncontrolled - per [...] symptoms worsen - also recommended diabetic shoes. Dr. Mai at [place] - Cardiothoracic surgeon. . Hypertension - well [...] would like to consider Dr. Mai . Arthritis- occasionally uncontrolled symptoms- recommend pt [...] pain is worsening or does not improve. PREVNAR 13 REFERRAL FOR SCREENING COLONOSCOPY . [...] her DOPA paperwork for health care surrogate. . Sacroilitis-right hip pain-sciatica - back exercises [...] - he does not have Parkinson's disease. VIMOVO 1 TAB TWICE DAILY . Trigger Points - Injected trigger points today, pt given post-injection instructions, signs and symptoms for which to call the office. Pt to use heat to the muscles today, and take an anti-inflammatory today unless otherwise contraindicated by renal function or other disease process. . Joint Injection - Pt was given [...] a component of healthy back and body. . Hypertension - well controlled - continue [...] her DOPA paperwork for health care surrogate[facility] Pt was [...] - pt to see this Opthamologist in [place] - May 25. BRING IN THE GLUCOMETER [...] - recommended referral to Dr. Fine at [facility] [employer] [...] assure normal liver response to medications. . Hypertension - well controlled - continue [...] he does not have Parkinson's disease. . Diabetes Mellitus - Uncontrolled - per [...] home. Obesity - continue with dietary restriction. 5 units of insulin at Breakfast, 8 [...] for further treatment or ear lavage today . Diabetes Mellitus - Uncontrolled - per [...]
--- OUTSIDE RECORDS SUMMARY | 2019-01-23 15:23 | XMS REPORT | CCD ---
Author Author [facility] Organization [facility] Address [address] [place] [address] Phone Care Team Providers Care Miller Wood Flour Name Role Phone PP Unavailable CCM Unavailable Summary Purpose Interface Exchange Insurance Providers Payer name Policy type / Coverage type Covered libertarian ID Effective Begin Date Effective End Date WPS Medicare Part B Medicare Part B [id number] Unknown [facility] Medicare Part B [id number] Unknown Family history Nephew Diagnosis Age At [...] Unknown Retired 07/18/[address]: 507527410 Never smoker 07/18/[address]: 910840581 Never drinks alcohol 07/18/2011 Has the patient [...] Start Date Stop Date Status Fill Instructions Zachary Mahan U-300 Insulin 300 unit/mL (1.5 mL) subcutaneous pen RxNorm: 7540852 30 Unit(s) SQ daily 10/09/2018 01/01/2020 Active 90 day supply needle (disp) 31 gauge x 5/16" RxNorm: 1 Miscellaneous TID 02/10/2018 02/04/2019 Active finasteride 1 mg tablet RxNorm: 290022 1 Tablet(s) PO daily 12/25/2017 12/19/2018 Active D/C dutasteride finasteride 1 mg tablet RxNorm: 641561 1 Tablet(s) PO daily 12/25/2017 12/24/2017 Inactive D/C dutasteride Novolin R Regular U-100 Insulin 100 unit/mL injection solution RxNorm: 158737 10 Unit(s) Inj QAM 12 units at lunch and 10 units at supper 11/25/2017 09/22/2018 Inactive amoxicillin 500 mg capsule RxNorm: 544482 1 Capsule(s) PO QID 11/21/2017 11/30/2017 Inactive naproxen 500 mg tablet RxNorm: 700084 1 Tablet(s) PO BID 11/21/2017 12/04/2017 Inactive Novolin R Regular U-100 Insulin 100 unit/mL injection solution RxNorm: 593328 8 10 Unit(s) Inj QAM 12 units at lunch and 10 units at supper 11/21/2017 11/24/2017 Inactive Insulin Syringe 0.3 mL 29 X 5/16" RxNorm: 1 injection SQ TID 10/01/2017 07/27/2018 Inactive Protonix 40 mg tablet,delayed release RxNorm: 544791 1 Tablet(s) PO daily 09/27/2017 12/20/2018 Active lovastatin 20 mg tablet RxNorm: 371313 1 Tablet(s) PO QHS 09/27/2017 12/20/2018 Active irbesartan 300 mg tablet RxNorm: 703608 1 Tablet(s) PO daily 09/27/2017 12/20/2018 Active metformin 1,000 mg tablet RxNorm: 904923 1 Tablet(s) PO BID 09/27/2017 12/20/2018 Active Voltaren 1 % topical gel RxNorm: 116335 4 Gram(s) TOP QID 09/27/2017 12/20/2018 Active [SAVINGS FOR NON-COVERED DRUGS -- BIN:[id number], PCN: ASPROD1, Group: XXXXX, ID# [id number], Questions: . THIS IS NOT INSURANCE.] magnesium oxide 400 mg tablet RxNorm: 667642 1 Tablet(s) PO daily 09/27/2017 12/20/2018 Active Trueresult Blood Glucose System RxNorm: 1 test Miscellaneous QID insulin dependent diabetes 09/27/2017 09/21/2018 Inactive Touelizabeth SoloStar U-300 Insulin 300 unit/mL (1.5 mL) subcutaneous pen RxNorm: 5046947 45 Unit(s) SQ daily 09/27/2017 10/08/2018 Inactive 90 day supply Insulin Syringe 0.3 mL 29 X 5/16" RxNorm: 1 injection SQ BID 09/27/2017 09/30/2017 Inactive Novolin R 100 unit/mL injection solution RxNorm: 336230 8 Unit(s) Inj QAM 10 units at lunch and 8 units at supper 09/27/2017 11/20/2017 Inactive dutasteride 0.5 mg capsule RxNorm: 831804 1 Capsule(s) PO daily 09/27/2017 12/24/2017 Inactive Voltaren 1 % topical gel RxNorm: 902717 4 Gram(s) TOP QID 07/23/2017 09/26/2017 Inactive [SAVINGS FOR NON-COVERED DRUGS -- BIN:[id number], PCN: ASPROD1, Group: XXXXX, ID# [id number], Questions: . THIS IS NOT INSURANCE.] Bactrim DS 800 mg-160 mg tablet RxNorm: 703132 1 Tablet(s) PO BID 07/02/2017 07/08/2017 Inactive Kenalog 40 mg/mL suspension for injection RxNorm: 0393822 1 Milliliter(s) Inj 06/04/2017 06/04/2017 Inactive Efudex 5 % topical cream RxNorm: 108787 1 TOP BID 12/05/2016 12/14/2016 Inactive Avapro 300 mg tablet RxNorm: 813427 Tablet(s) TAKE 1 TABLET BY MOUTH ONCE DAILY. 09/21/2016 09/15/2017 Inactive Toujeo SoloStar 300 unit/mL (1.5 mL) subcutaneous insulin pen RxNorm: 3184091 45 Unit(s) SQ daily 09/21/2016 09/15/2017 Inactive 90 day supply Novolin R 100 unit/mL injection solution RxNorm: 405703 8 Unit(s) Inj QAM 10 units at lunch and 8 units at supper 09/21/2016 09/15/2017 Inactive metformin 1,000 mg tablet RxNorm: 761283 Tablet(s) TAKE 1 TABLET BY MOUTH TWICE DAILY AFTER MEALS 09/21/2016 09/15/2017 Inactive lovastatin 20 mg tablet RxNorm: 969381 Tablet(s) TAKE ONE TABLET BY MOUTH ONCE DAILY. 09/21/2016 09/15/2017 Inactive dutasteride 0.5 mg capsule RxNorm: 315608 1 Capsule(s) PO daily 09/21/2016 09/15/2017 Inactive Toujeo SoloStar 300 unit/mL (1.5 mL) subcutaneous insulin pen RxNorm: 7829239 45 Unit(s) SQ daily 06/27/2016 09/20/2016 Inactive Kenalog 40 mg/mL suspension for injection RxNorm: 1281559 1 Milliliter(s) Inj 06/21/2016 06/21/2016 Inactive Toujeo SoloStar 300 unit/mL (1.5 mL) subcutaneous insulin pen RxNorm: 4508895 40 Unit(s) SQ daily 05/24/2016 06/26/2016 Inactive Novolin R 100 unit/mL injection solution RxNorm: 640735 8 Unit(s) Inj QAM 10 units at lunch and 8 units at supper 05/24/2016 09/20/2016 Inactive Bactrim DS 800 mg-160 mg tablet RxNorm: 013398 1 Tablet(s) PO BID 10/03/2015 01/31/2016 Inactive dutasteride 0.5 mg capsule RxNorm: 156760 1 Capsule(s) PO daily 09/26/2015 09/19/2016 Inactive dutasteride 0.5 mg capsule RxNorm: 998185 1 Capsule(s) PO daily 09/26/2015 09/25/2015 Inactive Avodart 0.5 mg capsule RxNorm: 878719 1 Capsule(s) PO QPM 09/21/2015 09/25/2015 Inactive Avapro 300 mg tablet RxNorm: 046392 Tablet(s) TAKE 1 TABLET BY MOUTH ONCE DAILY. 09/21/2015 09/14/2016 Inactive Generic For:AVAPRO 300MG 08/26/2015 9:53:42 AM lovastatin 20 mg tablet RxNorm: 197720 1 Tablet(s) TAKE ONE TABLET BY MOUTH ONCE DAILY. 09/21/2015 09/20/2016 Inactive Generic For:*MEVACOR 20MG 10/06/2014 12:16:37 PM Novolin R 100 unit/mL injection solution RxNorm: 458434 5 Unit(s) Inj QAM 8 units at lunch and 5 units at supper 09/21/2015 05/23/2016 Inactive metformin 1,000 mg tablet RxNorm: 014079 Tablet(s) TAKE 1 TABLET BY MOUTH TWICE DAILY AFTER MEALS 09/21/2015 09/20/2016 Inactive Generic For:*GLUCOPHAGE 1000MG 10/18/2014 5:26:11 PM Toujeo SoloStar 300 unit/mL (1.5 mL) subcutaneous insulin pen RxNorm: 8478649 60 Unit(s) SQ daily 09/21/2015 05/23/2016 Inactive 3 month supply DX 250.02 also needs pen needles to use daily dx 250.02 Novolin R 100 unit/mL injection solution RxNorm: 426218 5 Unit(s) Inj QAM 8 units at lunch and 5 units at supper 09/07/2015 09/20/2015 Inactive lovastatin 20 mg tablet RxNorm: 497729 Tablet(s) TAKE ONE TABLET BY MOUTH ONCE DAILY. 09/07/2015 09/20/2015 Inactive Generic For:*MEVACOR 20MG 10/06/2014 12:16:37 PM metformin 1,000 mg tablet RxNorm: 211048 Tablet(s) TAKE 1 TABLET BY MOUTH TWICE DAILY AFTER MEALS 09/07/2015 09/20/2015 Inactive Generic For:*GLUCOPHAGE 1000MG 10/18/2014 5:26:11 PM Toujeo SoloStar 300 unit/mL (1.5 mL) subcutaneous insulin pen RxNorm: 8986483 60 Unit(s) SQ daily 09/07/2015 09/20/2015 Inactive 3 month supply DX 250.02 also needs pen needles to use daily dx 250.02 Avapro 300 mg tablet RxNorm: 623722 TAKE 1 TABLET BY MOUTH ONCE DAILY. 08/26/2015 09/20/2015 Inactive Generic For:AVAPRO 300MG 08/26/2015 9:53:42 AM Avodart 0.5 mg capsule RxNorm: 743893 1 Capsule(s) PO QPM 08/17/2015 09/20/2015 Inactive Novolin R 100 unit/mL injection solution RxNorm: 582182 5 Unit(s) Inj QAM 8 units at lunch and 5 units at supper 08/17/2015 09/06/2015 Inactive Trueresult Blood Glucose System RxNorm: 1 test Miscellaneous QID insulin dependent diabetes 08/17/2015 08/10/2016 Inactive Avodart 0.5 mg capsule RxNorm: 575148 1 Capsule(s) PO QPM 08/14/2015 08/16/2015 Inactive Novolin R 100 unit/mL injection solution RxNorm: 104639 5 Unit(s) Inj TID with meals 07/20/2015 08/16/2015 Inactive Toujeo SoloStar 300 unit/mL (1.5 mL) subcutaneous insulin pen RxNorm: 2769982 60 Unit(s) SQ daily 07/20/2015 09/06/2015 Inactive one month supply DX 250.02 also needs pen needles to use daily dx 250.02 Bactrim DS 800 mg-160 mg tablet RxNorm: 495884 1 Tablet(s) PO BID 05/09/2015 05/15/2015 Inactive Bactrim DS 800 mg-160 mg tablet RxNorm: 634630 1 Tablet(s) PO BID 05/09/2015 05/08/2015 Inactive Bactrim DS 800 mg-160 mg tablet RxNorm: 076089 1 Tablet(s) PO BID 05/09/2015 05/08/2015 Inactive Toujeo SoloStar 300 unit/mL (1.5 mL) subcutaneous insulin pen RxNorm: 2150963 45u qdx3 days then 50u qdx 5 days then if fsbs >180 55u qd Unit(s) SQ daily 05/02/2015 07/19/2015 Inactive one month supply DX 250.02 also needs pen needles to use daily dx 250.02 Zachary SalazaroStar 300 unit/mL (1.5 mL) subcutaneous insulin pen RxNorm: 1518071 45u qdx3 days then 50u qdx 5 days then if fsbs >180 55u qd Unit(s) SQ daily 05/02/2015 05/01/2015 Inactive one month supply DX 250.02 also needs pen needles to use daily dx 250.02 Belviq 10 mg tablet RxNorm: 8958678 1 Tablet(s) PO BID 04/20/2015 09/20/2015 Inactive Insulin Syringe 0.3 mL 29 X /" RxNorm: 1 Miscellaneous BID 03/24/2015 04/16/2016 Inactive Lantus 100 unit/mL subcutaneous solution RxNorm: 038574 30 Unit(s) SQ BID 02/14/2015 05/01/2015 Inactive pt not ready for refill yet, when he is, please fill 25units bid Lantus 100 unit/mL subcutaneous solution RxNorm: 285263 28 Unit(s) SQ BID 11/11/2014 02/13/2015 Inactive pt not ready for refill yet, when he is, please fill 25units bid [SAVINGS FOR NON-COVERED DRUGS -- BIN:[id number], PCN: ASPROD1, Group: XXXXX, ID# [id number], Questions: . THIS IS NOT INSURANCE.] Voltaren 1 % topical gel RxNorm: 063229 4 Gram(s) TOP QID 11/11/2014 03/10/2015 Inactive [SAVINGS FOR NON-COVERED DRUGS -- BIN:991999, PCN: ASPROD1, Group: XXXXX, ID# [id number], Questions: . THIS IS NOT INSURANCE.] metformin 1,000 mg tablet RxNorm: 986436 TAKE 1 TABLET BY MOUTH TWICE DAILY AFTER MEALS 10/19/2014 09/06/2015 Inactive Generic For:*GLUCOPHAGE 1000MG 10/18/2014 5:26:11 PM metformin 1,000 mg tablet RxNorm: 193261 Tablet(s) TAKE 1 TABLET BY MOUTH TWICE DAILY AFTER MEALS 10/18/2014 10/18/2014 Inactive Generic For:*GLUCOPHAGE 1000MG 04/16/2014 9:02:30 AM lovastatin 20 mg tablet RxNorm: 793318 TAKE ONE TABLET BY MOUTH ONCE DAILY. 10/07/2014 09/06/2015 Inactive Generic For:*MEVACOR 20MG 10/06/2014 12:16:37 PM lovastatin 20 mg tablet RxNorm: 727810 1 Tablet(s) PO daily TAKE ONE (1) TABLET BY MOUTH DAILY 10/06/2014 10/06/2014 Inactive Generic For:MEVACOR 20 MG TABLET Generic For:MEVACOR 20 MG TABLET 08/14/2013 8:06:44 AM Carafate 1 gram tablet RxNorm: 838809 1 Tablet(s) PO QID dissolve in 10mL of fluid, drink liquid carafate four times daily before meals and before bed 10/04/2014 11/10/2014 Inactive may dispense generic Avapro 300 mg tablet RxNorm: 990433 TAKE 1 TABLET BY MOUTH ONCE DAILY. 08/26/2014 08/20/2015 Inactive Generic For:AVAPRO 300MG 08/26/2014 9:03:29 AM Avodart 0.5 mg capsule RxNorm: 996595 1 Capsule(s) PO QPM 08/02/2014 07/27/2015 Inactive meloxicam 15 mg tablet RxNorm: 049856 TAKE 1 TABLET BY MOUTH ONCE DAILY. 06/11/2014 11/10/2014 Inactive Generic For:MOBIC 15MG 06/11/2014 9:05:37 AM Kenalog 40 mg/mL suspension for injection RxNorm: 0071802 1 Milliliter(s) Inj 05/04/2014 05/04/2014 Inactive Lantus Solostar 100 unit/mL (3 mL) subcutaneous insulin pen RxNorm: 029003 25 Unit(s) SQ BID 04/19/2014 02/13/2015 Inactive Lantus 100 unit/mL subcutaneous solution RxNorm: 080903 25 Unit(s) SQ BID break up lantus to two shots daily of 22 units each shot 04/19/2014 11/10/2014 Inactive pt not ready for refill yet, when he is, please fill 25units bid metformin 1,000 mg tablet RxNorm: 903170 TAKE 1 TABLET BY MOUTH TWICE DAILY AFTER MEALS 04/16/2014 10/12/2014 Inactive Generic For:*GLUCOPHAGE 1000MG 04/16/2014 9:02:30 AM Insulin Syringe 0.3 mL 29 X 5/16" RxNorm: 1 Miscellaneous BID 03/15/2014 03/23/2015 Inactive Insulin Syringe 0.3 mL 29 X 5/16" RxNorm: 1 Miscellaneous BID 03/15/2014 03/14/2014 Inactive meloxicam 15 mg tablet RxNorm: 454523 TAKE 1 TABLET EVERY DAY 03/15/2014 06/10/2014 Inactive Generic For:MOBIC 15MG 03/15/2014 9:06:35 AM Lantus 100 unit/mL subcutaneous solution RxNorm: 280379 22 Unit(s) SQ BID break up lantus to two shots daily of 22 units each shot 01/14/2014 04/18/2014 Inactive metformin 1,000 mg tablet RxNorm: 157102 Tablet(s) PO TAKE 1 TABLET BY MOUTH TWICE DAILY AFTER MEALS 01/07/2014 04/15/2014 Inactive Generic For:*GLUCOPHAGE 1000MG Lantus 100 unit/mL subcutaneous solution RxNorm: 548860 25 Unit(s) SQ BID break up lantus to two shots daily of 25 units each shot 09/30/2013 09/29/2013 Inactive Lantus 100 unit/mL subcutaneous solution RxNorm: 434974 25 Unit(s) SQ BID break up lantus to two shots daily of 25 units each shot 09/30/2013 01/13/2014 Inactive metformin 1,000 mg tablet RxNorm: 377111 1 Tablet(s) PO BID TAKE 1 TABLET BY MOUTH TWICE DAILY AFTER MEALS 09/30/2013 12/28/2013 Inactive Generic For:GLUCOPHAGE 1000MG TAB Generic For:GLUCOPHAGE 1000MG TAB Avapro 300 mg tablet RxNorm: 620786 Tablet(s) PO TAKE ONE (1) TABLET BY MOUTH DAILY 08/28/2013 08/25/2014 Inactive Generic For:*AVAPRO 300MG TAB Generic For:*AVAPRO 300MG TAB 08/28/2013 8:53:42 AM lovastatin 20 mg tablet RxNorm: 312973 Tablet(s) PO TAKE ONE (1) TABLET BY MOUTH DAILY 08/14/2013 10/05/2014 Inactive Generic For:MEVACOR 20 MG TABLET Generic For:MEVACOR 20 MG TABLET 08/14/2013 8:06:44 AM metformin 1,000 mg tablet RxNorm: 156443 Tablet(s) PO TAKE 1 TABLET BY MOUTH TWICE DAILY AFTER MEALS 07/16/2013 09/29/2013 Inactive Generic For:GLUCOPHAGE 1000MG TAB Generic For:GLUCOPHAGE 1000MG TAB Influenza Virus Vaccine 0.5 mL RxNorm: IM 07/01/2013 07/01/2013 Inactive Contour Test Strips RxNorm: strip miscellaneous USE TO TEST BLOOD SUGAR THREE TIMES DAILY DIRECTED 06/29/2013 03/14/2014 Inactive metformin 1,000 mg tablet RxNorm: 653181 Tablet(s) PO TAKE 1 TABLET BY MOUTH TWICE DAILY AFTER MEALS 04/14/2013 07/15/2013 Inactive Generic For:GLUCOPHAGE 1000MG TAB meloxicam 15 mg tablet RxNorm: 550096 Tablet(s) PO TAKE ONE TABLET BY MOUTH EVERY DAY 03/21/2013 03/14/2014 Inactive Generic For:MOBIC 15MG TAB 03/19/2013 8:10:41 AM Lantus 100 unit/mL subcutaneous solution RxNorm: 576041 25 Unit(s) SQ BID break up lantus to two shots daily of 25 units each shot 03/04/2013 06/01/2013 Inactive Insulin Syringe 0.3 mL 29 X 5/16" RxNorm: 1 Unit Dose Miscellaneous BID 02/04/2013 09/01/2013 Inactive Lantus 100 unit/mL Sub-Q RxNorm: 922326 20 Unit(s) SQ BID break up lantus to two shots daily of 20units each shot 02/04/2013 03/03/2013 Inactive topiramate 25 mg tablet RxNorm: 875138 1 Tablet(s) PO daily 02/04/2013 04/08/2013 Inactive metformin 1,000 mg tablet RxNorm: 338872 Tablet(s) PO TAKE 1 TABLET BY MOUTH TWICE DAILY AFTER MEALS 01/15/2013 04/13/2013 Inactive Generic For:GLUCOPHAGE 1000MG TAB Lantus 100 unit/mL Sub-Q RxNorm: 967663 30 Unit(s) SQ QPM 12/03/2012 01/01/2013 Inactive Kenalog 40 mg/mL Susp for Injection RxNorm: 3356737 1 Milliliter(s) Inj 09/25/2012 09/25/2012 Inactive Lantus 100 unit/mL Sub-Q RxNorm: 749357 25 Unit(s) SQ QPM 09/12/2012 10/11/2012 Inactive Avapro 300 mg tablet RxNorm: 330227 Tablet(s) PO TAKE ONE (1) TABLET BY MOUTH DAILY 09/03/2012 09/02/2012 Inactive Generic For:AVAPRO 300MG TAB Avapro 300 mg tablet RxNorm: 438593 Tablet(s) PO TAKE ONE (1) TABLET BY MOUTH DAILY 09/03/2012 08/27/2013 Inactive Generic For:AVAPRO 300MG TAB Lantus 100 unit/mL Sub-Q RxNorm: 435034 20 Unit(s) SQ QPM 08/27/2012 09/11/2012 Inactive Avapro 300 mg tablet RxNorm: 836871 1 Tablet(s) PO daily 08/27/2012 09/02/2012 Inactive Lantus 100 unit/mL Sub-Q RxNorm: 950478 15 Unit(s) SQ QPM 08/07/2012 08/26/2012 Inactive metformin 1,000 mg tablet RxNorm: 144546 Tablet(s) PO 07/18/2012 01/14/2013 Inactive TAKE 1 TABLET BY MOUTH TWICE DAILY AFTER MEALS;Generic For:GLUCOPHAGE 1,000 MG TABLET Lantus 100 unit/mL Sub-Q RxNorm: 806685 13 Unit(s) SQ QPM 06/25/2012 07/24/2012 Inactive lovastatin 20 mg tablet RxNorm: 727588 Tablet(s) PO 06/20/2012 07/14/2013 Inactive TAKE 2 TABLETS BY MOUTH AT BEDTIME;Generic For:MEVACOR 20 MG TABLET Pneumovax 23 25 mcg/0.5 mL Injection RxNorm: 267753 Milliliter(s) Inj 06/04/2012 06/04/2012 Inactive Influenza Virus Vaccine 0.5 mL RxNorm: IM 06/04/2012 06/04/2012 Inactive Insulin Syringe 0.3 mL 29 X 5/16" RxNorm: 1 Unit Dose Miscellaneous daily 06/03/2012 12/29/2012 Inactive lovastatin 20 mg tablet RxNorm: 977717 Tablet(s) PO 05/14/2012 06/19/2012 Inactive TAKE 2 TABLETS BY MOUTH AT BEDTIME;Generic For:MEVACOR 20 MG TABLET Contour Test Strips RxNorm: Miscellaneous TID 04/25/2012 05/24/2012 Inactive lovastatin 20 mg tablet RxNorm: 851139 Tablet(s) PO 04/16/2012 05/13/2012 Inactive TAKE 2 TABLETS BY MOUTH AT BEDTIME;Generic For:MEVACOR 20 MG TABLET metformin 1,000 mg tablet RxNorm: 771361 Tablet(s) PO 04/16/2012 07/17/2012 Inactive TAKE 1 TABLET BY MOUTH TWICE DAILY AFTER MEALS;Generic For:GLUCOPHAGE 1,000 MG TABLET citalopram 20 mg tablet RxNorm: 736304 1 Tablet(s) PO daily 04/09/2012 09/23/2012 Inactive meloxicam 15 mg Tab RxNorm: 357814 1 Tablet(s) PO daily 2012 03/04/2012 Inactive meloxicam 15 mg Tab RxNorm: 269451 Tablet(s) PO 2012 07/19/2015 Inactive TAKE 1 TABLET BY MOUTH DAILY;Generic For:MOBIC 15MG TAB WC meloxicam 15 mg tablet RxNorm: 962264 1 Tablet(s) PO daily 2012 03/04/2012 Inactive Rocephin 500 mg Solution for Injection RxNorm: 358250 Inj 03/04/2012 03/04/2012 Inactive sulfamethoxazole 800 mg-trimethoprim 160 mg tablet RxNorm: 880397 1 Tablet(s) PO BID 03/04/2012 03/13/2012 Inactive metoprolol succinate ER 25 mg 24 hr Tab RxNorm: 158674 1 Tablet(s) PO daily 12/03/2011 11/16/2014 Inactive Byetta 10 mcg/0.04 mL per dose Sub-Q Pen Injector RxNorm: 356751 10 Microgram(s) SQ BID 10 meq twice daily before the two largest meals of the day. 12/03/2011 06/03/2012 Inactive Plavix 75 mg Tab RxNorm: 943111 1 Tablet(s) PO daily 12/03/2011 11/16/2014 Inactive lovastatin 20 mg tablet RxNorm: 020339 2 Tablet(s) PO daily 11/12/2011 04/15/2012 Inactive TAKE 2 TABLETS BY MOUTH DAILY AT BEDTIME;Generic For:MEVACOR 20 MG TABLET N O T I C E Last dispense quantity was less than original quantity written Avapro 300 mg tablet RxNorm: 440203 1 Tablet(s) PO daily 08/28/2011 08/21/2012 Inactive metformin 1,000 mg Tab RxNorm: 239769 1 Tablet(s) PO BID 07/09/2011 07/02/2012 Inactive Victoza 0.6 mg/0.1 mL (18 mg/3 mL) Sub-Q Pen Injector RxNorm: 345250 1.8 Milligram(s) SQ daily 06/20/2011 03/04/2012 Inactive Fish Oil 1,000 mg capsule RxNorm: 1 Capsule(s) PO BID No Start Date Active Ocuvite oral RxNorm: 311989 oral No Start Date Active Farxiga 5 mg tablet RxNorm: 2990166 1 Tablet(s) PO QAM No Start Date Active potassium gluconate 595 mg (99 mg) tablet RxNorm: 642227 1 Tablet(s) PO daily No Start Date Active aspirin 81 mg Cap, Delayed Release RxNorm: 190082 1 Capsule(s) PO daily No Start Date Active multivitamin tablet RxNorm: oral No Start Date Active B Complex 1 oral RxNorm: 71878 oral No Start Date Active Protonix 40 mg tablet,delayed release RxNorm: 939491 1 Tablet(s) PO daily No Start Date 09/26/2017 Inactive Bydureon 2 mg SubQ Susp RxNorm: 7603841 1 SQ QW No Start Date 06/03/2012 Inactive Avapro 150 mg Tab RxNorm: 628581 1 Tablet(s) PO daily No Start Date 03/04/2012 Inactive Travatan Z 0.004 % Eye Drops RxNorm: 823849 1 Drop(s) OPH daily No Start Date 06/14/2014 Inactive metformin 1,000 mg tablet RxNorm: 043948 1 Tablet(s) PO BID No Start Date 03/04/2012 Inactive magnesium oxide 400 mg tablet RxNorm: 320039 Tablet(s) PO No Start Date 09/26/2017 Inactive Ativan 0.5 mg tablet RxNorm: 565832 1 Tablet(s) PO No Start Date 10/09/2013 Inactive 1 30 min prior to procedure meloxicam 15 mg Tab RxNorm: 726740 1 Tablet(s) PO daily No Start Date 03/04/2012 Inactive lovastatin 20 mg Tab RxNorm: 201768 2 Tablet(s) PO QHS No Start Date 11/12/2011 Inactive Pen Needle 31 x 3/16" RxNorm: Miscellaneous BID Pen [place] 31g/8mm BD to use for Byetta injection BID No Start Date 06/03/2012 Inactive Medication Administered Medication Codes Instructions Start Date Status Kenalog 40 mg/mL suspension for injection RxNorm: 2117854 1Milliliter 06/04/2017 No longer Active Kenalog 40 mg/mL suspension for injection RxNorm: 6377708 1Milliliter 06/21/2016 No longer Active Kenalog 40 mg/mL suspension for injection RxNorm: 5269348 1Milliliter 05/04/2014 No longer Active Influenza Virus Vaccine 0.5 mL RxNorm: 07/01/2013 No longer Active Kenalog 40 mg/mL Susp for Injection RxNorm: 2476280 1Milliliter 09/25/2012 No longer Active Influenza Virus Vaccine 0.5 mL RxNorm: 06/04/2012 No longer Active Pneumovax 23 25 mcg/0.5 mL Injection RxNorm: 577470 Milliliter 06/04/2012 No longer Active Rocephin 500 mg Solution for Injection RxNorm: 928362 03/04/2012 No longer Active Immunizations Vaccine Codes [...] 331.83 02/08/2014 Nightmares ICD-9: 307.47 02/08/2014 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 10/14/2013 Thumb pain ICD-9: 729.5 [...] 30.4 pg 10/08/2018 Cbc With Differential Ord2 [place]% 11.1 % 10/08/2018 Cbc With Differential Ord2 [...] 1.72 K/ul 10/08/2018 Cbc With Differential Ord2 [place] ABS# 0.6 K/ul 10/08/2018 Cbc With Differential Ord2 Eos ABS# 0.2 K/ul 10/08/2018 Cbc With Differential Ord2 Baso ABS# 0.0 K/ul 10/08/2018 %Hba1C Ati552 % HbA1c 53823- 6 7.2 % 10/08/2018 %Hba1C Bzr279 Gluc Ave 160 mg/dL 10/08/2018 Comp Metabolic Jfe914 NA 143 mEq/L 10/08/2018 Comp Metabolic Ves103 K 4.4 mEq/L 10/08/2018 Comp Metabolic Xed311 CL 105 mEq/L 10/08/2018 Comp Metabolic Icp279 CO2 28.0 mEq/L 10/08/2018 Comp Metabolic Gdy567 ANION GAP 14 10/08/2018 Comp Metabolic Reh539 GLUCOSE 127 mg/dL 10/08/2018 Comp Metabolic Asb655 Creat 1.1 mg/dL 10/08/2018 Comp Metabolic Axy338 eGFR 72 ml/min/1.73m2 10/08/2018 Comp Metabolic Acd288 BUN 18 mg/dL 10/08/2018 Comp Metabolic Tgi299 B/C Ratio 17.0 Ratio 10/08/2018 Comp Metabolic Vml675 CALCIUM 9.8 mg/dL 10/08/2018 Comp Metabolic Nzt919 ALK PHOS 50 U/L 10/08/2018 Comp Metabolic Uix105 AST(SGOT) 37 U/L 10/08/2018 Comp Metabolic Ank378 ALT(SGPT) 37 U/L 10/08/2018 Comp Metabolic Qkz490 BILI T 0.8 mg/dL 10/08/2018 Comp Metabolic Yjf728 ALBUMIN 4.4 g/dL 10/08/2018 Comp Metabolic Ems189 TPRO 7.1 g/dL 10/08/2018 Comp Metabolic Mfd648 GLOB 2.7 g/dL 10/08/2018 Comp Metabolic Ebq193 A/G Ratio 1.6 Ratio 10/08/2018 Comp Metabolic Fpm000 Osmo 288 mOsmo 10/08/2018 Lipid Ord30 CHOL 150 mg/dL 10/08/2018 Lipid Ord30 HDL 45.0 mg/dl 10/08/2018 Lipid Ord30 TRIG 190 mg/dL 10/08/2018 Lipid Ord30 LDL 67 mg/dL 10/08/2018 Lipid Ord30 C/HDL 3.3 Ratio 10/08/2018 Tsh Ord6 TSH (3rd IS) 1.80 uIU/mL 10/08/2018 %Hba1C Wek410 % HbA1c 10792- 6 7.6 % 07/04/2018 %Hba1C Ezq394 Gluc Ave 171 mg/dL 07/04/2018 Comp Metabolic Yxu677 NA 140 mEq/L 07/04/2018 Comp Metabolic Gut632 K 4.5 mEq/L 07/04/2018 Comp Metabolic Mrm305 CL 104 mEq/L 07/04/2018 Comp Metabolic Yef805 CO2 28.0 mEq/L 07/04/2018 Comp Metabolic Zus119 ANION GAP 13 07/04/2018 Comp Metabolic Htp032 GLUCOSE 211 mg/dL 07/04/2018 Comp Metabolic Ugn159 Creat 0.9 mg/dL 07/04/2018 Comp Metabolic Iua932 eGFR 85 ml/min/1.73m2 07/04/2018 Comp Metabolic Xtp148 BUN 20 mg/dL 07/04/2018 Comp Metabolic Tdq534 B/C Ratio 21.7 Ratio 07/04/2018 Comp Metabolic Bwa253 CALCIUM 9.5 mg/dL 07/04/2018 Comp Metabolic Vzz402 ALK PHOS 46 U/L 07/04/2018 Comp Metabolic Sve205 AST(SGOT) 26 U/L 07/04/2018 Comp Metabolic Izd634 ALT(SGPT) 29 U/L 07/04/2018 Comp Metabolic Ycs064 BILI T 0.6 mg/dL 07/04/2018 Comp Metabolic Eso583 ALBUMIN 4.2 g/dL 07/04/2018 Comp Metabolic Woi203 TPRO 6.8 g/dL 07/04/2018 Comp Metabolic Bag133 GLOB 2.6 g/dL 07/04/2018 Comp Metabolic Oun663 A/G Ratio 1.6 Ratio 07/04/2018 Comp Metabolic Gwa092 Osmo 288 mOsmo 07/04/2018 Tsh Ord6 TSH [...] 31.0 pg 07/04/2018 Cbc With Differential Ord2 [place]% 12.9 % 07/04/2018 Cbc With Differential Ord2 [...] 1.86 K/ul 07/04/2018 Cbc With Differential Ord2 [place] ABS# 0.9 K/ul 07/04/2018 Cbc With Differential Ord2 Eos ABS# 0.3 K/ul 07/04/2018 Cbc With Differential Ord2 Baso ABS# 0.1 K/ul 07/04/2018 Lipid Ord30 CHOL 159 mg/dL 07/04/2018 Lipid Ord30 HDL 45.0 mg/dl 07/04/2018 Lipid Ord30 TRIG 244 mg/dL 07/04/2018 Lipid Ord30 LDL 65 mg/dL 07/04/2018 Lipid Ord30 C/HDL 3.5 Ratio 07/04/2018 %Hba1C Xxi098 % HbA1c 92732- 6 8.0 % 03/06/2018 %Hba1C Oun932 Gluc Ave 183 mg/dL 03/06/2018 Lipid Ord30 [...] 30.2 pg 03/04/2018 Cbc With Differential Ord2 [place]% 12.2 % 03/04/2018 Cbc With Differential Ord2 [...] 1.93 K/ul 03/04/2018 Cbc With Differential Ord2 [place] ABS# 0.8 K/ul 03/04/2018 Cbc With Differential Ord2 Eos ABS# 0.2 K/ul 03/04/2018 Cbc With Differential Ord2 Baso ABS# 0.1 K/ul 03/04/2018 Comp Metabolic Mhb673 NA 139 mEq/L 03/04/2018 Comp Metabolic Kdg061 K 4.5 mEq/L 03/04/2018 Comp Metabolic Wro536 CL 102 mEq/L 03/04/2018 Comp Metabolic Fkf492 CO2 28.0 mEq/L 03/04/2018 Comp Metabolic Zvw737 ANION GAP 14 03/04/2018 Comp Metabolic Kao727 GLUCOSE 201 mg/dL 03/04/2018 Comp Metabolic Afw069 Creat 1.0 mg/dL 03/04/2018 Comp Metabolic Nbd296 eGFR 78 ml/min/1.73m2 03/04/2018 Comp Metabolic Ujt538 BUN 18 mg/dL 03/04/2018 Comp Metabolic Vvt271 B/C Ratio 18.0 Ratio 03/04/2018 Comp Metabolic Rjg555 CALCIUM 9.4 mg/dL 03/04/2018 Comp Metabolic Yum707 ALK PHOS 40 U/L 03/04/2018 Comp Metabolic Uwh694 AST(SGOT) 21 U/L 03/04/2018 Comp Metabolic Mao522 ALT(SGPT) 27 U/L 03/04/2018 Comp Metabolic Qse199 BILI T 0.6 mg/dL 03/04/2018 Comp Metabolic Tfo197 ALBUMIN 4.1 g/dL 03/04/2018 Comp Metabolic Uhz014 TPRO 6.7 g/dL 03/04/2018 Comp Metabolic Pbm671 GLOB 2.7 g/dL 03/04/2018 Comp Metabolic Sva907 A/G Ratio 1.5 Ratio 03/04/2018 Comp Metabolic Kcv131 Osmo 285 mOsmo 03/04/2018 Lipid Ord30 CHOL 171 mg/dL 11/20/2017 Lipid Ord30 HDL 52.0 mg/dl 11/20/2017 Lipid Ord30 TRIG 248 mg/dL 11/20/2017 Lipid Ord30 LDL 69 mg/dL 11/20/2017 Lipid Ord30 C/HDL 3.3 Ratio 11/20/2017 %Hba1C Cko049 % HbA1c 82100- 6 7.7 % 11/20/2017 %Hba1C Vjw776 Gluc Ave 174 mg/dL 11/20/2017 Comp Metabolic Cip132 NA 140 mEq/L 11/20/2017 Comp Metabolic Cyo016 K 4.3 mEq/L 11/20/2017 Comp Metabolic Wzx556 CL 103 mEq/L 11/20/2017 Comp Metabolic Tmg503 CO2 27.0 mEq/L 11/20/2017 Comp Metabolic Kwu427 ANION GAP 14 11/20/2017 Comp Metabolic Cef966 GLUCOSE 151 mg/dL 11/20/2017 Comp Metabolic Qal721 Creat 0.9 mg/dL 11/20/2017 Comp Metabolic Are032 eGFR 87 ml/min/1.73m2 11/20/2017 Comp Metabolic Yjo522 BUN 25 mg/dL 11/20/2017 Comp Metabolic Dbc336 B/C Ratio 27.5 Ratio 11/20/2017 Comp Metabolic Cof755 CALCIUM 9.7 mg/dL 11/20/2017 Comp Metabolic Ljc101 ALK PHOS 49 U/L 11/20/2017 Comp Metabolic Yil013 AST(SGOT) 25 U/L 11/20/2017 Comp Metabolic Xja248 ALT(SGPT) 24 U/L 11/20/2017 Comp Metabolic Nbt832 BILI T 0.6 mg/dL 11/20/2017 Comp Metabolic Rpa089 ALBUMIN 4.2 g/dL 11/20/2017 Comp Metabolic Zor019 TPRO 6.6 g/dL 11/20/2017 Comp Metabolic Fpc799 GLOB 2.4 g/dL 11/20/2017 Comp Metabolic Ofs652 A/G Ratio 1.8 Ratio 11/20/2017 Comp Metabolic Hrv372 Osmo 287 mOsmo 11/20/2017 Cbc With Differential [...] 31.0 pg 07/25/2017 Cbc With Differential Ord2 [place]% 13.3 % 07/25/2017 Cbc With Differential Ord2 [...] 1.89 K/ul 07/25/2017 Cbc With Differential Ord2 [place] ABS# 0.9 K/ul 07/25/2017 Cbc With Differential Ord2 Eos ABS# 0.2 K/ul 07/25/2017 Cbc With Differential Ord2 Baso ABS# 0.1 K/ul 07/25/2017 Comp Metabolic Mex534 NA 140 mEq/L 07/25/2017 Comp Metabolic Uqy558 K 4.7 mEq/L 07/25/2017 Comp Metabolic Pkz599 CL 102 mEq/L 07/25/2017 Comp Metabolic Uvf193 CO2 30.0 mEq/L 07/25/2017 Comp Metabolic Npg186 ANION GAP 13 07/25/2017 Comp Metabolic Qot127 GLUCOSE 178 mg/dL 07/25/2017 Comp Metabolic Opy613 Creat 1.0 mg/dL 07/25/2017 Comp Metabolic Tth891 eGFR 75 ml/min/1.73m2 07/25/2017 Comp Metabolic Dzf958 BUN 23 mg/dL 07/25/2017 Comp Metabolic Gsd941 B/C Ratio 22.3 Ratio 07/25/2017 Comp Metabolic Cyu418 CALCIUM 9.7 mg/dL 07/25/2017 Comp Metabolic Dky698 ALK PHOS 40 U/L 07/25/2017 Comp Metabolic Ggd020 AST(SGOT) 22 U/L 07/25/2017 Comp Metabolic Ywl176 ALT(SGPT) 25 U/L 07/25/2017 Comp Metabolic Eij963 BILI T 0.7 mg/dL 07/25/2017 Comp Metabolic Knf292 ALBUMIN 4.0 g/dL 07/25/2017 Comp Metabolic Itc325 TPRO 6.7 g/dL 07/25/2017 Comp Metabolic Ach272 GLOB 2.7 g/dL 07/25/2017 Comp Metabolic Rhc280 A/G Ratio 1.5 Ratio 07/25/2017 Comp Metabolic Urz118 Osmo 288 mOsmo 07/25/2017 %Hba1C Unu572 % HbA1c 11382- 6 7.1 % 07/25/2017 %Hba1C Rfs522 Gluc Ave 157 mg/dL 07/25/2017 Lipid Ord30 CHOL 164 mg/dL 07/25/2017 Lipid Ord30 HDL 49.0 mg/dl 07/25/2017 Lipid Ord30 TRIG 266 mg/dL 07/25/2017 Lipid Ord30 LDL 62 mg/dL 07/25/2017 Lipid Ord30 C/HDL 3.3 Ratio 07/25/2017 Comp Metabolic Qcf710 NA 140 mEq/L 04/02/2017 Comp Metabolic Rob117 K 4.4 mEq/L 04/02/2017 Comp Metabolic Sgn958 CL 103 mEq/L 04/02/2017 Comp Metabolic Rwa086 CO2 27.0 mEq/L 04/02/2017 Comp Metabolic Rro204 ANION GAP 14 04/02/2017 Comp Metabolic Ijx366 GLUCOSE 182 mg/dL 04/02/2017 Comp Metabolic Trw849 Creat 1.1 mg/dL 04/02/2017 Comp Metabolic Fom431 eGFR 73 ml/min/1.73m2 04/02/2017 Comp Metabolic Etw832 BUN 26 mg/dL 04/02/2017 Comp Metabolic Tfh548 B/C Ratio 24.5 Ratio 04/02/2017 Comp Metabolic Vwy530 CALCIUM 9.4 mg/dL 04/02/2017 Comp Metabolic Rmu487 ALK PHOS 43 U/L 04/02/2017 Comp Metabolic Xxk850 AST(SGOT) 19 U/L 04/02/2017 Comp Metabolic Bhm288 ALT(SGPT) 20 U/L 04/02/2017 Comp Metabolic Suz872 BILI T 0.7 mg/dL 04/02/2017 Comp Metabolic Ssa299 ALBUMIN 4.0 g/dL 04/02/2017 Comp Metabolic Llp506 TPRO 6.6 g/dL 04/02/2017 Comp Metabolic Adp680 GLOB 2.6 g/dL 04/02/2017 Comp Metabolic Cbk333 A/G Ratio 1.6 Ratio 04/02/2017 Comp Metabolic Hbv293 Osmo 289 mOsmo 04/02/2017 %Hba1C Bws445 % HbA1c 06532- 6 7.9 % 04/02/2017 %Hba1C Wzb384 Gluc Ave 180 mg/dL 04/02/2017 Cbc With [...] 30.6 pg 04/02/2017 Cbc With Differential Ord2 [place]% 11.5 % 04/02/2017 Cbc With Differential Ord2 [...] 2.21 K/ul 04/02/2017 Cbc With Differential Ord2 [place] ABS# 0.9 K/ul 04/02/2017 Cbc With Differential [...] 30.6 pg 12/04/2016 Cbc With Differential Ord2 [place]% 10.7 % 12/04/2016 Cbc With Differential Ord2 [...] 1.76 K/ul 12/04/2016 Cbc With Differential Ord2 [place] ABS# 0.8 K/ul 12/04/2016 Cbc With Differential Ord2 Eos ABS# 0.2 K/ul 12/04/2016 Cbc With Differential Ord2 Baso ABS# 0.1 K/ul 12/04/2016 Lipid Ord30 CHOL 156 mg/dL 12/04/2016 Lipid Ord30 HDL 47.0 mg/dl 12/04/2016 Lipid Ord30 TRIG 219 mg/dL 12/04/2016 Lipid Ord30 LDL 65 mg/dL 12/04/2016 Lipid Ord30 C/HDL 3.3 Ratio 12/04/2016 Comp Metabolic Acw601 NA 139 mEq/L 12/04/2016 Comp Metabolic Ngh297 K 4.4 mEq/L 12/04/2016 Comp Metabolic Nnp743 CL 103 mEq/L 12/04/2016 Comp Metabolic Pdk188 CO2 27.0 mEq/L 12/04/2016 Comp Metabolic Eam212 ANION GAP 13 12/04/2016 Comp Metabolic Nuu317 GLUCOSE 147 mg/dL 12/04/2016 Comp Metabolic Efs923 Creat 1.0 mg/dL 12/04/2016 Comp Metabolic Qwi777 eGFR 83 ml/min/1.73m2 12/04/2016 Comp Metabolic Pup112 BUN 20 mg/dL 12/04/2016 Comp Metabolic Oyg096 B/C Ratio 21.1 Ratio 12/04/2016 Comp Metabolic Hsh437 CALCIUM 9.5 mg/dL 12/04/2016 Comp Metabolic Ull453 ALK PHOS 44 U/L 12/04/2016 Comp Metabolic Lbn674 AST(SGOT) 22 U/L 12/04/2016 Comp Metabolic Yjn732 ALT(SGPT) 23 U/L 12/04/2016 Comp Metabolic Hnt821 BILI T 0.8 mg/dL 12/04/2016 Comp Metabolic Uan249 ALBUMIN 3.9 g/dL 12/04/2016 Comp Metabolic Rtl223 TPRO 6.3 g/dL 12/04/2016 Comp Metabolic Twh799 GLOB 2.4 g/dL 12/04/2016 Comp Metabolic Mqo391 A/G Ratio 1.7 Ratio 12/04/2016 Comp Metabolic Wzn191 Osmo 283 mOsmo 12/04/2016 Tsh Ord6 hTSH II 3.35 uIU/mL 12/04/2016 %Hba1C Yah891 % HbA1c 63592- 6 7.4 % 12/04/2016 %Hba1C Bac206 Gluc Ave 166 mg/dL 12/04/2016 Comp Metabolic Drc094 NA 138 mEq/L 08/28/2016 Comp Metabolic Bjp963 K 4.7 mEq/L 08/28/2016 Comp Metabolic Bmm881 CL 101 mEq/L 08/28/2016 Comp Metabolic Qdo133 CO2 29.0 mEq/L 08/28/2016 Comp Metabolic Mva019 ANION GAP 13 08/28/2016 Comp Metabolic Nzm650 GLUCOSE 188 mg/dL 08/28/2016 Comp Metabolic Slt303 Creat 1.0 mg/dL 08/28/2016 Comp Metabolic Hbn582 eGFR 82 ml/min/1.73m2 08/28/2016 Comp Metabolic Vxs730 BUN 21 mg/dL 08/28/2016 Comp Metabolic Yhs364 B/C Ratio 21.9 Ratio 08/28/2016 Comp Metabolic Pfq118 CALCIUM 9.6 mg/dL 08/28/2016 Comp Metabolic Wbn804 ALK PHOS 52 U/L 08/28/2016 Comp Metabolic Vda350 AST(SGOT) 27 U/L 08/28/2016 Comp Metabolic Nrt791 ALT(SGPT) 26 U/L 08/28/2016 Comp Metabolic Lhb114 BILI T 0.9 mg/dL 08/28/2016 Comp Metabolic Dxc184 ALBUMIN 4.2 g/dL 08/28/2016 Comp Metabolic Iqf402 TPRO 6.8 g/dL 08/28/2016 Comp Metabolic Aqj669 GLOB 2.6 g/dL 08/28/2016 Comp Metabolic Hty570 A/G Ratio 1.6 Ratio 08/28/2016 Comp Metabolic Ved629 Osmo 284 mOsmo 08/28/2016 Cbc With Differential [...] 30.9 pg 08/28/2016 Cbc With Differential Ord2 [place]% 14.3 % 08/28/2016 Cbc With Differential Ord2 [...] 1.68 K/ul 08/28/2016 Cbc With Differential Ord2 [place] ABS# 1.1 K/ul 08/28/2016 Cbc With Differential Ord2 Eos ABS# 0.3 K/ul 08/28/2016 Cbc With Differential Ord2 Baso ABS# 0.1 K/ul 08/28/2016 %Hba1C Qav179 % HbA1c 31886- 6 7.6 % 08/28/2016 %Hba1C Feb050 Gluc Ave 171 mg/dL 08/28/2016 Cbc With [...] 30.3 pg 05/23/2016 Cbc With Differential Ord2 [place]% 12.0 % 05/23/2016 Cbc With Differential Ord2 [...] 1.74 K/ul 05/23/2016 Cbc With Differential Ord2 [place] ABS# 0.9 K/ul 05/23/2016 Cbc With Differential Ord2 Eos ABS# 0.2 K/ul 05/23/2016 Cbc With Differential Ord2 Baso ABS# 0.1 K/ul 05/23/2016 Tsh Ord6 hTSH II 3.24 uIU/mL 05/23/2016 %Hba1C Hpk200 % HbA1c 17574- 6 7.1 % 05/23/2016 %Hba1C Qxk178 Gluc Ave 157 mg/dL 05/23/2016 Lipid Ord30 CHOL 155 mg/dL 05/23/2016 Lipid Ord30 HDL 50.0 mg/dl 05/23/2016 Lipid Ord30 TRIG 159 mg/dL 05/23/2016 Lipid Ord30 LDL 73 mg/dL 05/23/2016 Lipid Ord30 C/HDL 3.1 Ratio 05/23/2016 Comp Metabolic Zkh911 NA 137 mEq/L 05/23/2016 Comp Metabolic Rzl775 K 4.3 mEq/L 05/23/2016 Comp Metabolic Ycg146 CL 102 mEq/L 05/23/2016 Comp Metabolic Bfg195 CO2 28.0 mEq/L 05/23/2016 Comp Metabolic Bil113 ANION GAP 11 05/23/2016 Comp Metabolic Gzg154 GLUCOSE 140 mg/dL 05/23/2016 Comp Metabolic Qlm002 Creat 0.9 mg/dL 05/23/2016 Comp Metabolic Gde352 eGFR 93 ml/min/1.73m2 05/23/2016 Comp Metabolic Qng658 BUN 23 mg/dL 05/23/2016 Comp Metabolic Adb842 B/C Ratio 26.7 Ratio 05/23/2016 Comp Metabolic Mwi835 CALCIUM 9.4 mg/dL 05/23/2016 Comp Metabolic Pyu957 ALK PHOS 43 U/L 05/23/2016 Comp Metabolic Icf592 AST(SGOT) 23 U/L 05/23/2016 Comp Metabolic Uhm870 ALT(SGPT) 23 U/L 05/23/2016 Comp Metabolic Dal176 BILI T 0.7 mg/dL 05/23/2016 Comp Metabolic Heb326 ALBUMIN 4.2 g/dL 05/23/2016 Comp Metabolic Psp978 TPRO 6.8 g/dL 05/23/2016 Comp Metabolic Nyq135 GLOB 2.6 g/dL 05/23/2016 Comp Metabolic Qyc507 A/G Ratio 1.6 Ratio 05/23/2016 Comp Metabolic Eqg626 Osmo 280 mOsmo 05/23/2016 Cbc With Differential [...] 29.9 pg 01/24/2016 Cbc With Differential Ord2 [place]% 11.1 % 01/24/2016 Cbc With Differential Ord2 [...] 1.92 K/ul 01/24/2016 Cbc With Differential Ord2 [place] ABS# 0.8 K/ul 01/24/2016 Cbc With Differential Ord2 Eos ABS# 0.3 K/ul 01/24/2016 Cbc With Differential Ord2 Baso ABS# 0.1 K/ul 01/24/2016 Cbc With Differential Ord2 New Analyzer Notice Please note new ref ranges starting 09-21-2015 due to implemntation of new five part differential hematolgy analyzer. 01/24/2016 Comp Metabolic Ffe747 NA 139 mEq/L 01/24/2016 Comp Metabolic Vlf568 K 4.1 mEq/L 01/24/2016 Comp Metabolic Yfi097 CL 102 mEq/L 01/24/2016 Comp Metabolic Hkt065 CO2 29.0 mEq/L 01/24/2016 Comp Metabolic Avn136 ANION GAP 12 01/24/2016 Comp Metabolic Gon416 GLUCOSE 140 mg/dL 01/24/2016 Comp Metabolic Xxx896 Creat 0.9 mg/dL 01/24/2016 Comp Metabolic Ykt276 eGFR 87 ml/min/1.73m2 01/24/2016 Comp Metabolic Yye496 BUN 20 mg/dL 01/24/2016 Comp Metabolic Ers094 B/C Ratio 22.0 Ratio 01/24/2016 Comp Metabolic Yxj880 CALCIUM 9.3 mg/dL 01/24/2016 Comp Metabolic Lpk953 ALK PHOS 46 U/L 01/24/2016 Comp Metabolic Ncb850 AST(SGOT) 23 U/L 01/24/2016 Comp Metabolic Iqd713 ALT(SGPT) 22 U/L 01/24/2016 Comp Metabolic Ydk181 BILI T 0.7 mg/dL 01/24/2016 Comp Metabolic Ukf289 ALBUMIN 4.1 g/dL 01/24/2016 Comp Metabolic Fwr872 TPRO 6.7 g/dL 01/24/2016 Comp Metabolic Hzx694 GLOB 2.6 g/dL 01/24/2016 Comp Metabolic Wlt789 A/G Ratio 1.6 Ratio 01/24/2016 Comp Metabolic Hzk854 Osmo 282 mOsmo 01/24/2016 %Hba1C Baw414 % HbA1c 86161- 6 6.8 % 01/24/2016 %Hba1C Yvu742 Gluc Ave 148 mg/dL 01/24/2016 Tsh Ord6 hTSH II 3.45 uIU/mL 01/24/2016 Lipid Ord30 CHOL 137 mg/dL 01/24/2016 Lipid Ord30 HDL 47.0 mg/dl 01/24/2016 Lipid Ord30 TRIG 161 mg/dL 01/24/2016 Lipid Ord30 LDL 58 mg/dL 01/24/2016 Lipid Ord30 C/HDL 2.9 Ratio 01/24/2016 Tsh Ord6 hTSH II 3.71 uIU/mL 10/25/2015 %Hba1C Uwg235 % HbA1c 04013- 6 7.1 % 10/25/2015 %Hba1C Kmg699 Gluc Ave 157 mg/dL 10/25/2015 Cbc With [...] 30.2 pg 10/25/2015 Cbc With Differential Ord2 [place]% 12.4 % 10/25/2015 Cbc With Differential Ord2 [...] 1.69 K/ul 10/25/2015 Cbc With Differential Ord2 [place] ABS# 0.8 K/ul 10/25/2015 Cbc With Differential [...] Ord30 C/HDL 3.2 Ratio 10/25/2015 Comp Metabolic Stu860 NA 136 mEq/L 10/25/2015 Comp Metabolic Wng543 K 4.0 mEq/L 10/25/2015 Comp Metabolic Ivr366 CL 102 mEq/L 10/25/2015 Comp Metabolic Vzl211 CO2 26.0 mEq/L 10/25/2015 Comp Metabolic Dts534 ANION GAP 12 10/25/2015 Comp Metabolic Stj948 GLUCOSE 119 mg/dL 10/25/2015 Comp Metabolic Bzw583 Creat 1.1 mg/dL 10/25/2015 Comp Metabolic Bqy631 eGFR 69 ml/min/1.73m2 10/25/2015 Comp Metabolic Jsy349 BUN 21 mg/dL 10/25/2015 Comp Metabolic Qix043 B/C Ratio 18.8 Ratio 10/25/2015 Comp Metabolic Kjp512 CALCIUM 9.5 mg/dL 10/25/2015 Comp Metabolic Hwz358 ALK PHOS 49 U/L 10/25/2015 Comp Metabolic Jwk817 AST(SGOT) 29 U/L 10/25/2015 Comp Metabolic Awd535 ALT(SGPT) 28 U/L 10/25/2015 Comp Metabolic Thz344 BILI T 0.7 mg/dL 10/25/2015 Comp Metabolic Ykj305 ALBUMIN 4.2 g/dL 10/25/2015 Comp Metabolic Hmg561 TPRO 6.7 g/dL 10/25/2015 Comp Metabolic Wie885 GLOB 2.5 g/dL 10/25/2015 Comp Metabolic Gry330 A/G Ratio 1.7 Ratio 10/25/2015 Comp Metabolic Xcg582 Osmo 276 mOsmo 10/25/2015 Sensitivity Report #1 [id number] ORGANISM ESCHERICHIA COLI 10/06/2015 Sensitivity Report #1 [id number] ORG NUMBER 1 10/06/2015 Sensitivity Report #1 [id number] AMIKACIN S 10/06/2015 Sensitivity Report #1 [id number] AMPICILLIN/SULBACTAM S 10/06/2015 Sensitivity Report #1 [id number] AMOXICILLIN/CLAV S 10/06/2015 Sensitivity Report #1 [id number] CEFEPIME S 10/06/2015 Sensitivity Report #1 [id number] AMPICILLIN S 10/06/2015 Sensitivity Report #1 [id number] CEFOTAXIME S 10/06/2015 Sensitivity Report #1 [id number] CEFAZOLIN S 10/06/2015 Sensitivity Report #1 [id number] CEFTAZIDIME S 10/06/2015 Sensitivity Report #1 [id number] CEFTRIAXONE S 10/06/2015 Sensitivity Report #1 [id number] CIPROFLOXACIN S 10/06/2015 Sensitivity Report #1 [id number] GENTAMICIN S 10/06/2015 Sensitivity Report #1 [id number] LEVOFLOXACIN S 10/06/2015 Sensitivity Report #1 [id number] CEFUROXIME S 10/06/2015 Sensitivity Report #1 [id number] MEROPENEM S 10/06/2015 Sensitivity Report #1 [id number] TETRACYCLINE S 10/06/2015 Sensitivity Report #1 [id number] ERTAPENEM S 10/06/2015 Sensitivity Report #1 [id number] TOBRAMYCIN S 10/06/2015 Sensitivity Report #1 [id number] TRIMETH/SULFA S 10/06/2015 Sensitivity Report #1 [id number] IMIPENEM S 10/06/2015 Sensitivity Report #1 [id number] NITROFURANTOIN S 10/06/2015 Sensitivity Report #1 [id number] PIPERACILLIN/TAZO S 10/06/2015 Culture Urine [id number] URINE CULTURE SEE NOTES 10/06/2015 Culture Urine [id number] SOURCE: URINE 10/06/2015 Culture Urine [id number] STATUS: FINAL 10/06/2015 Culture Urine [id number] DATE PLATED: 10/03/2015 10/06/2015 Culture Urine [id number] PRELIMINARY: 10/06/2015 Culture Urine [id number] CULTURE REPORT: 10/06/2015 Urine Culture Ucult Complete >100,000 col/ml aerobic growth sent to ref lab 10/04/2015 Comp Metabolic Tel894 NA 133 mEq/L 07/19/2015 Comp Metabolic Oql931 K 4.2 mEq/L 07/19/2015 Comp Metabolic Zgo332 CL 101 mEq/L 07/19/2015 Comp Metabolic Yvm520 CO2 25.0 mEq/L 07/19/2015 Comp Metabolic Wjo325 ANION GAP 11 07/19/2015 Comp Metabolic Fcx243 GLUCOSE 293 mg/dL 07/19/2015 Comp Metabolic Igg034 Creat 1.0 mg/dL 07/19/2015 Comp Metabolic Nax037 eGFR 81 ml/min/1.73m2 07/19/2015 Comp Metabolic Cfo275 BUN 19 mg/dL 07/19/2015 Comp Metabolic Pdw752 B/C Ratio 19.6 Ratio 07/19/2015 Comp Metabolic Adn609 CALCIUM 9.4 mg/dL 07/19/2015 Comp Metabolic Uhf890 ALK PHOS 61 U/L 07/19/2015 Comp Metabolic Ote053 AST(SGOT) 32 U/L 07/19/2015 Comp Metabolic Rjv296 ALT(SGPT) 41 U/L 07/19/2015 Comp Metabolic Xag234 BILI T 0.7 mg/dL 07/19/2015 Comp Metabolic Cfn279 ALBUMIN 4.1 g/dL 07/19/2015 Comp Metabolic Dgo358 TPRO 6.7 g/dL 07/19/2015 Comp Metabolic Ucf198 GLOB 2.6 g/dL 07/19/2015 Comp Metabolic Zhr989 A/G Ratio 1.6 Ratio 07/19/2015 Comp Metabolic Jjt615 Osmo 279 mOsmo 07/19/2015 %Hba1C Jpo003 % HbA1c 23219- 6 9.2 % 07/19/2015 %Hba1C Mcq039 Gluc Ave 217 mg/dL 07/19/2015 Cbc With [...] Ord6 hTSH II 2.72 uIU/mL 04/19/2015 %Hba1C Zew550 % HbA1c 29332- 6 8.6 % 04/19/2015 %Hba1C Jse740 Gluc Ave 200 mg/dL 04/19/2015 Comp Metabolic Szq250 NA 139 mEq/L 04/19/2015 Comp Metabolic Bij799 K 4.2 mEq/L 04/19/2015 Comp Metabolic Hvb686 CL 106 mEq/L 04/19/2015 Comp Metabolic Nyf666 CO2 27.0 mEq/L 04/19/2015 Comp Metabolic Oic574 ANION GAP 10 04/19/2015 Comp Metabolic Fjc589 GLUCOSE 157 mg/dL 04/19/2015 Comp Metabolic Vhx272 Creat 0.9 mg/dL 04/19/2015 Comp Metabolic Wug017 eGFR 84 ml/min/1.73m2 04/19/2015 Comp Metabolic Wnw048 BUN 14 mg/dL 04/19/2015 Comp Metabolic Gmf472 B/C Ratio 14.9 Ratio 04/19/2015 Comp Metabolic Dkj338 CALCIUM 9.5 mg/dL 04/19/2015 Comp Metabolic Dmv099 ALK PHOS 51 U/L 04/19/2015 Comp Metabolic Mgs390 AST(SGOT) 28 U/L 04/19/2015 Comp Metabolic Opf375 ALT(SGPT) 29 U/L 04/19/2015 Comp Metabolic Wgr941 BILI T 0.6 mg/dL 04/19/2015 Comp Metabolic Low024 ALBUMIN 4.1 g/dL 04/19/2015 Comp Metabolic Zjt457 TPRO 6.4 g/dL 04/19/2015 Comp Metabolic Wjj777 GLOB 2.3 g/dL 04/19/2015 Comp Metabolic Vov535 A/G Ratio 1.8 Ratio 04/19/2015 Comp Metabolic Dnq003 Osmo 281 mOsmo 04/19/2015 Lipid Ord30 CHOL [...] accomodation 10/09/2018 None Full Exam - General 1995 Ears/Nose/Throat oral cavity/pharynx/larynx Overall: oral mucosa clear 10/09/2018 None Full Exam - General 1995 Ears/Nose/Throat [...] atraumatic 02/08/2014 None Full Exam - General 1995 Musculoskeletal [...] accomodation 03/04/2013 None Full Exam - General 1995 Respiratory auscultation Overall: breath sounds clear bilaterally 03/04/2013 None Full Exam - General 1995 Respiratory respiratory effort/rhythm Overall: no retractions 03/04/2013 None Full Exam - General 1995 Respiratory respiratory effort/rhythm Overall: normal rate 03/04/2013 None Full Exam - General 1995 Cardiovascular auscultation of heart Overall: regular rate 03/04/2013 None Full Exam - General 1995 Cardiovascular auscultation of heart Overall: normal heart sounds 03/04/2013 None Full Exam - General 1995 Cardiovascular auscultation of heart Overall: no murmurs 03/04/2013 None Full Exam - General 1995 Abdomen abdominal exam Contour: rounded 03/04/2013 None Full Exam - General 1995 Abdomen abdominal exam Contour: protuberant 03/04/2013 None Full Exam - General 1995 Musculoskeletal head and neck Overall: head atraumatic 03/04/2013 None Full Exam - General 1995 [...] murmurs 02/04/2013 None Full Exam - General 1995 Abdomen abdominal exam Contour: rounded 02/04/2013 None Full Exam - General 1995 Abdomen abdominal exam Contour: protuberant 02/04/2013 None Full Exam - General 1995 Musculoskeletal head and neck Overall: head atraumatic 02/04/2013 None Full Exam - General 1995 Musculoskeletal head and neck Overall: cervical spine benign 02/04/2013 None Full Exam - General 1995 Neurologic gait Conventional walking: wide-based 02/04/2013 None Full Exam - General 1995 Psychiatric orientation/consciousness Overall: oriented to person, place and time 02/04/2013 None Full Exam - General 1995 Psychiatric mood and affect Overall: normal mood and affect 02/04/2013 None Full Exam - General 1995 Neurologic gait Conventional walking: wide-based 12/03/2012 None [...] trochanter 09/29/2012 None Full Exam - General 1995 Musculoskeletal [...] developed 06/25/2012 None Full Exam - General 1995 Constitutional general appearance Overall: in no acute distress 06/25/2012 None Full Exam - General 1995 Constitutional general appearance Overall: well nourished 06/25/2012 None Full Exam - General 1994 Eyes pupils and irises Overall: pupils equal, round, reactive to light and accomodation 06/25/2012 None Full Exam - General 1994 Respiratory auscultation Overall: breath sounds clear bilaterally 06/25/2012 None Full Exam - General 1994 Respiratory respiratory effort/rhythm Overall: no retractions 06/25/2012 None Full Exam - General 1995 Respiratory respiratory effort/rhythm Overall: normal rate 06/25/2012 [...] benign 03/04/2012 None Full Exam - General 1995 Neurologic gait Conventional walking: wide-based 03/04/2012 None Full Exam - General 1994 Psychiatric orientation/consciousness Overall: oriented to person, place and time 03/04/2012 None Full Exam - General 1994 Psychiatric mood and affect Overall: normal mood and affect 03/04/2012 None Full Exam - General 1995 Integument inspection of skin Location: face 03/04/2012 by right eyelid Full Exam - General 1995 Integument inspection of skin Rash/Lesions: nodule 03/04/2012 None Full Exam - General 1995 Integument inspection of skin Pigmentation: erythematous 03/04/2012 None Full Exam - General 1995 Constitutional general appearance Overall: in no acute distress 12/03/2011 None Full Exam - General 1995 Integument [...] accomodation 12/03/2011 None Full Exam - General 1995 Abdomen abdominal exam Overall: no tenderness 12/03/2011 None Full Exam - General 1995 Abdomen abdominal exam Overall: normal bowel sounds 12/03/2011 None Full Exam - General 1994 Abdomen abdominal exam Contour: rounded 12/03/2011 None Full Exam - General 1994 Abdomen abdominal exam Contour: protuberant 12/03/2011 None Full Exam - General 1995 Neurologic gait Conventional walking: wide-based 12/03/2011 None [...] VACC NO PRSV 3 YRS+ IM CPT-4: 61238 05/21/2018 IIV4 VACC NO PRSV 3 YRS+ IM CPT-4: 63919 05/21/2018 ADMIN INFLUENZA VIRUS VAC CPT-4: G0008 05/21/2018 ADMIN PNEUMOCOCCAL VACCINE SNOMED CT: 15634875 CPT-4: G0009 05/21/2018 FLU VAC NO PRSV 4 DONNA 3 YRS+ CPT-4: 60252 05/21/2018 PPPS, SUBSEQ VISIT CPT- 4: G0439 12/24/2017 TRIAMCINOLONE ACET INJ NOS CPT-4: J3301 12/24/2017 DRAIN/INJECT JOINT/BURSA CPT-4: 68749 12/24/2017 REMOVAL OF SKIN TAGS <W/15 CPT-4: 65327 07/02/2017 ADMIN INFLUENZA VIRUS VAC CPT-4: G0008 06/28/2017 FLU VAC NO PRSV 4 DONNA 3 YRS+ CPT-4: 29311 06/28/2017 TRIAMCINOLONE ACET INJ NOS CPT-4: J3301 06/04/2017 PPPS, SUBSEQ VISIT CPT- 4: G0439 12/13/2016 PNEUMOCOCCAL VACC [address]: [id number] CPT-4: 32311 12/13/2016 ADMIN PNEUMOCOCCAL VACCINE SNOMED CT: 99212161 CPT-4: G0009 12/13/2016 DRAIN/INJECT JOINT/BURSA CPT-4: 58315 08/30/2016 TRIAMCINOLONE ACET INJ NOS CPT-4: J3301 08/30/2016 URINALYSIS NONAUTO W/O SCOPE CPT-4: 87099 07/13/2016 INJ TRIGGER POINT 1/2 MUSCL CPT-4: 57864 06/21/2016 ADMIN INFLUENZA VIRUS VAC CPT-4: G0008 05/24/2016 FLU VACC PRSV FREE INC ANTIG Formatting Model/CDA Sections, Assigned to/Judy Pierre CPT-4: [id number] 05/24/2016 URINALYSIS NONAUTO W/O SCOPE CPT-4: 81460 10/03/2015 ADMIN INFLUENZA VIRUS VAC CPT-4: G0008 07/20/2015 IMMUNIZATION ADMIN CPT- 4: 20481 07/20/2015 FLU VACC PRSV FREE INC ANTIG Formatting Model/CDA Sections, Assigned to/Judy Pierre CPT-4: [id number] 07/20/2015 URINALYSIS NONAUTO W/O SCOPE CPT-4: 99779 05/18/2015 URINALYSIS NONAUTO W/O SCOPE CPT-4: 52575 05/09/2015 ADMIN INFLUENZA VIRUS VAC CPT-4: G0008 06/03/2014 FLU VAC NO PRSV 4 DONNA 3 YRS+ Assigned to/Judy Pierre CPT-4: [id number] 06/03/2014 TRIAMCINOLONE ACET INJ NOS CPT-4: J3301 05/04/2014 ADMIN INFLUENZA VIRUS VAC CPT-4: G0008 07/01/2013 FLULAVAL VACC, 3 YRS & >, IM CPT-4: Q2036 07/01/2013 PRESCRIP TRANSMIT VIA ERX SY CPT-4: G8553 03/04/2013 PRESCRIP TRANSMIT VIA ERX SY CPT-4: G8553 02/04/2013 DRAIN/INJECT JOINT/BURSA CPT-4: 67578 09/25/2012 ADMIN INFLUENZA VIRUS VAC CPT-4: G0008 06/04/2012 FLULAVAL VACC, 3 YRS & >, IM CPT-4: Q2036 06/04/2012 ADMIN PNEUMOCOCCAL VACCINE SNOMED CT: [id number] CPT-4: G0009 06/04/2012 PRESCRIP TRANSMIT VIA ERX SY CPT-4: G8553 04/09/2012 ROCEPHIN, PER 250 MG CPT- 4: J0696 03/04/2012 PRESCRIP TRANSMIT VIA ERX SY CPT-4: G8553 03/04/2012 DESTRUCT PREMALG LESION CPT-4: 42833 07/24/2011 DESTRUCT PREMALG LES 2-14 CPT-4: 30126 07/24/2011 DESTRUCT PREMALG LES 2-14 CPT-4: 37497 07/18/2011 DESTRUCT PREMALG LESION CPT-4: 15898 07/18/2011 Vital Signs Date Vital 10/09/2018 Blood Pressure 1: 148/80 Code: 8480-6 BMI: 42.3 Code: 47158-6 Heart Rate 1: 66 bpm Height: 5'6" SpO2: 97% Weight: 262 lbs 07/07/2018 Blood Pressure 1: 140/76 Code: 8480-6 BMI: 45.2 Code: 31575-1 Heart Rate 1: 66 bpm Height: 5'6" SpO2: 98% Weight: 280 lbs 05/21/2018 Blood Pressure 1: 164/78 Code: 8480-6 Blood Pressure 1: 132/74 Code: 8480-6 BMI: 44.5 Code: 05130-4 Heart Rate 1: 63 bpm Height: 5'6" SpO2: 96% Weight: 276 lbs 03/06/2018 Blood Pressure 1: 140/80 Code: 8480-6 BMI: 45.6 Code: 98889-2 Heart Rate 1: 94 bpm Height: 5'6" SpO2: 96% Weight: 282 lbs 4 oz 12/24/2017 Blood Pressure 1: 148/72 Code: 8480-6 BMI: 44.7 Code: 99485-2 Heart Rate 1: 70 bpm Height: 5'6" SpO2: 95% Waist Measure (cm): 132 cm Weight: 277 lbs 11/21/2017 Blood Pressure 1: 134/76 Code: 8480-6 BMI: 44.4 Code: 51783-0 Heart Rate 1: 63 bpm Height: 5'6" SpO2: 97% Weight: 275 lbs 07/29/2017 Blood Pressure 1: 148/76 Code: 8480-6 BMI: 43.7 Code: 92495-8 Heart Rate 1: 75 bpm Height: 5'6" SpO2: 97% Weight: 275 lbs 07/02/2017 Blood Pressure 1: 148/78 Code: 8480-6 BMI: 43.4 Code: 03519-2 Heart Rate 1: 55 bpm Height: 5'6" SpO2: 97% Weight: 273 lbs 06/04/2017 Blood Pressure 1: 132/58 Code: 8480-6 BMI: 43.1 Code: 65223-8 Heart Rate 1: 64 bpm Height: 5'6" SpO2: 96% Weight: 271 lbs 04/03/2017 Blood Pressure 1: 124/70 Code: 8480-6 BMI: 44.2 Code: 46159-2 Heart Rate 1: 70 bpm Height: 5'6" Height: 5'6" SpO2: 95% Weight: 278 lbs 12/13/2016 Blood Pressure 1: 150/78 Code: 8480-6 BMI: 44.2 Code: 57642-1 Heart Rate 1: 67 bpm Height: 5'6" SpO2: 97% Weight: 278 lbs 12/05/2016 Blood Pressure 1: 122/80 Code: 8480-6 Blood Pressure 1: 126/90 Code: 8480-6 BMI: 44.2 Code: 63876-5 Heart Rate 1: 70 bpm Height: 5'6" SpO2: 97% Weight: 278 lbs 08/30/2016 Blood Pressure 1: 134/70 Code: 8480-6 Blood Pressure 1: 134/78 Code: 8480-6 BMI: 43.9 Code: 26540-8 Heart Rate 1: 62 bpm Height: 5'6" SpO2: 98% Weight: 276 lbs 07/13/2016 Blood Pressure 1: 140/68 Code: 8480-6 BMI: 43.2 Code: 21552-1 Heart Rate 1: 59 bpm Height: 5'6" SpO2: 96% Weight: 272 lbs 06/21/2016 Blood Pressure 1: 140/70 Code: 8480-6 BMI: 43.2 Code: 11740-2 Heart Rate 1: 70 bpm Height: 5'6" SpO2: 94% Weight: 272 lbs 05/24/2016 Blood Pressure 1: 138/70 Code: 8480-6 Blood Pressure 1: 138/72 Code: 8480-6 BMI: 43.2 Code: 70547-6 Heart Rate 1: 65 bpm Height: 5'6" SpO2: 97% Weight: 272 lbs 01/24/2016 Blood Pressure 1: 122/62 Code: 8480-6 BMI: 43.1 Code: 21019-3 Heart Rate 1: 61 bpm Height: 5'6" SpO2: 97% Weight: 271 lbs 10/27/2015 Blood Pressure 1: 122/64 Code: 8480-6 BMI: 42.4 Code: 55082-8 Heart Rate 1: 58 bpm Height: 5'6" SpO2: 97% Weight: 267 lbs 09/21/2015 Blood Pressure 1: 128/70 Code: 8480-6 BMI: 43.2 Code: 86004-7 Heart Rate 1: 65 bpm Height: 5'6" SpO2: 98% Weight: 272 lbs 08/17/2015 Blood Pressure 1: 120/64 Code: 8480-6 BMI: 44.8 Code: 13065-5 Heart Rate 1: 57 bpm Height: 5'6" SpO2: 97% Weight: 282 lbs 07/20/2015 Blood Pressure 1: 144/70 Code: 8480-6 BMI: 45.3 Code: 35031-9 Heart Rate 1: 67 bpm Height: 5'6" SpO2: 95% Weight: 285 lbs 05/09/2015 Blood Pressure 1: 180/60 Code: 8480-6 Blood Pressure 2: 140/80 Code: 8480-6 04/20/2015 Blood Pressure 1: 138/64 Code: 8480-6 BMI: 45.6 Code: 59517-0 Heart Rate 1: 60 bpm Height: 5'6" SpO2: 98% Weight: 287 lbs 02/28/2015 Blood Pressure 1: 142/78 Code: 8480-6 BMI: 45.8 Code: 84276-8 Heart Rate 1: 68 bpm Height: 5'6" Weight: 288 lbs 02/14/2015 Blood Pressure 1: 142/78 Code: 8480-6 BMI: 45.3 Code: 00707-9 Heart Rate 1: 88 bpm Height: 5'6" Weight: 285 lbs 11/11/2014 Blood Pressure 1: 152/72 Code: 8480-6 Heart Rate 1: 64 bpm Weight: 282 lbs 10/04/2014 Blood Pressure 1: 140/72 Code: 8480-6 BMI: 45.6 Code: 67656-2 Heart Rate 1: 76 bpm Height: 5'6" Weight: 287 lbs 08/02/2014 Blood Pressure 1: 132/62 Code: 8480-6 BMI: 45.6 Code: 27566-3 Heart Rate 1: 64 bpm Height: 5'6" Weight: 287 lbs 06/15/2014 Blood Pressure 1: 142/62 Code: 8480-6 BMI: 44.7 Code: 54561-8 Heart Rate 1: 68 bpm Height: 5'6" SpO2: 97% Weight: 281 lbs 05/04/2014 Blood Pressure 1: 140/78 Code: 8480-6 BMI: 45.0 Code: 95019-0 Heart Rate 1: 60 bpm Height: 5'6" SpO2: 98% Weight: 283 lbs 04/19/2014 Blood Pressure 1: 130/62 Code: 8480-6 BMI: 44.7 Code: 07564-5 Heart Rate 1: 56 bpm Height: 5'6" Weight: 281 lbs 02/08/2014 Blood Pressure 1: 118/58 Code: 8480-6 BMI: 45.3 Code: 36339-1 Heart Rate 1: 60 bpm Height: 5'6" Weight: 285 lbs 01/13/2014 Blood Pressure 1: 112/52 Code: 8480-6 BMI: 44.2 Code: 15821-9 Heart Rate 1: 60 bpm Height: 5'6" Weight: 278 lbs 10/14/2013 Blood Pressure 1: 132/70 Code: 8480-6 BMI: 43.1 Code: 35727-2 Heart Rate 1: 60 bpm Height: 5'6" Weight: 271 lbs 07/01/2013 Blood Pressure 1: 158/76 Code: 8480-6 Heart Rate 1: 52 bpm Weight: 263 lbs 05/13/2013 Weight: 268 lbs 04/15/2013 Weight: 272 lbs 03/04/2013 Blood Pressure 1: 146/68 Code: 8480-6 BMI: 45.6 Code: 88246-1 Heart Rate 1: 68 bpm Height: 5'6" Weight: 287 lbs 02/04/2013 Blood Pressure 1: 140/68 Code: 8480-6 BMI: 46.1 Code: 15077-8 Heart Rate 1: 64 bpm Height: 5'6" Weight: 290 lbs 12/03/2012 Blood Pressure 1: 124/62 Code: 8480-6 BMI: 44.8 Code: 66512-2 Heart Rate 1: 64 bpm Height: 5'6" [...] 1: 146/76 Code: 8480-6 BMI: 44.7 Code: 62348-1 Heart Rate 1: 60 bpm Height: 5'6" Weight: 281 lbs 06/25/2012 Blood Pressure 1: 128/76 Code: 8480-6 BMI: 43.7 Code: 23032-5 Heart Rate 1: 72 bpm Height: 5'6" Weight: 275 lbs 06/03/2012 Blood Pressure 1: 136/62 Code: 8480-6 BMI: 43.2 Code: 10039-5 Heart Rate 1: 72 bpm Height: 5'6" Respiratory Rate: 20 bpm Weight: 272 lbs 04/24/2012 Blood Pressure 1: 116/60 Code: 8480-6 BMI: 42.3 Code: 05372-0 Heart Rate 1: 68 bpm Height: 5'6" Respiratory Rate: 16 bpm Weight: 266 lbs 04/09/2012 Blood Pressure 1: 150/82 Code: 8480-6 Heart Rate 1: 72 bpm Weight: 03/04/2012 Blood Pressure 1: 124/70 Code: 8480-6 Heart Rate 1: 72 bpm Respiratory Rate: 16 bpm Weight: 277 lbs 12/03/2011 Blood Pressure 1: 120/60 Code: 8480-6 BMI: 44.8 Code: 00326-1 Heart Rate 1: 68 bpm Height: 5'6" Respiratory Rate: 16 bpm Weight: 282 lbs 10/31/2011 Blood Pressure 1: 120/60 Code: 8480-6 BMI: 44.8 Code: 68810-3 Heart Rate 1: 74 bpm Height: 5'6" Respiratory Rate: 16 bpm Weight: 282 lbs 08/29/2011 Blood Pressure 1: 152/76 Code: 8480-6 BMI: 44.5 Code: 76284-7 Heart Rate 1: 66 bpm Height: 5'6" Respiratory Rate: 16 bpm Weight: 280 lbs 07/24/2011 Blood Pressure 1: 142/80 Code: 8480-6 BMI: 44.8 Code: 29373-9 Heart Rate 1: 66 bpm Height: 5'6" Respiratory Rate: 16 bpm Weight: 282 lbs 07/18/2011 Blood Pressure 1: 136/60 Code: 8480-6 BMI: 44.5 Code: 40287-7 Heart Rate 1: 72 bpm Height: 5'6" [...] when he could not remember what the research fellow was talking about at [facility] - pt states that he has had [...] Present Encounters Encounter Performer Location Codes Date ([id number]) 15001 EST. PATIENT, LEVEL IV Diagnosis: Essential (primary) hypertension[ICD10: I10] Diagnosis: Type 2 diabetes mellitus without complications[ICD10: E11.9] Diagnosis: Mixed hyperlipidemia[ICD10: E78.2] Maria Victoria Harrell MD, [facility] CPT- 4: 79711 10/09/2018 ([id number]) 99726 EST. PATIENT, LEVEL IV Diagnosis: Type 2 diabetes mellitus with hyperglycemia[ICD10: E11.65] Diagnosis: Essential (primary) hypertension[ICD10: I10] Diagnosis: Low back pain[ICD10: M54.5] Maria Victoria Harrell MD, [facility] CPT-4: 01795 07/07/2018 ([id number]) 22026 EST. 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 PATIENT, LEVEL IV Diagnosis: Type 2 diabetes mellitus with hyperglycemia[ICD10: E11.65] Diagnosis: Essential (primary) hypertension[ICD10: I10] Diagnosis: Arthralgia of bilateral temporomandibular joint[ICD10: M26.623] Maria Victoria Harrell MD, [facility] CPT-4: 02640 11/21/2017 ([id number]) 85126 EST. PATIENT, LEVEL IV Diagnosis: Type 2 diabetes mellitus without complications[ICD10: E11.9] Diagnosis: Essential (primary) hypertension[ICD10: I10] Diagnosis: Mixed hyperlipidemia[ICD10: E78.2] Maria Victoria Harrell MD, [facility] CPT- 4: 86550 07/29/2017 ([id number]) 55065 EST. PATIENT, LEVEL III Diagnosis: Lumbago with sciatica, right side[ICD10: M54.41] Sunitha Harrell MD, [facility] CPT-4: 01125 06/04/2017 ([id number]) 24597 EST. 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 PATIENT, LEVEL IV Diagnosis: Essential (primary) hypertension[ICD10: I10] Diagnosis: Type 2 diabetes mellitus without complications[ICD10: E11.9] Maria Victoria Harrell MD, [facility] CPT-4: 14549 12/05/2016 ([id number]) 24061 EST. PATIENT, LEVEL IV Diagnosis: Essential (primary) hypertension[ICD10: I10] Diagnosis: Type 2 diabetes mellitus with hyperglycemia[ICD10: E11.65] Diagnosis: Morbid (severe) obesity due to excess calories[ICD10: E66.01] Diagnosis: Essential tremor[ICD10: G25.0] Diagnosis: Pain in right hip[ICD10: M25.551] Maria Victoria Harrell MD, [facility] CPT- 4: 53532 08/30/2016 ([id number]) 36605 EST. PATIENT, LEVEL III Diagnosis: Pain in left forearm[ICD10: M79.632] Diagnosis: Dysuria[ICD10: R30.0] Sunitha Harrell MD, [facility] CPT-4: 63550 07/13/2016 ([id number]) 59489 EST. PATIENT, LEVEL III Diagnosis: Type 2 diabetes mellitus with hyperglycemia[ICD10: E11.65] Diagnosis: Essential tremor[ICD10: G25.0] Diagnosis: Encounter for immunization[ICD10: Z23] Diagnosis: Essential (primary) hypertension[ICD10: I10] Maria Victoria Harrell MD, [facility] CPT-4: 72851 05/24/2016 ([id number]) 83256 EST. PATIENT, LEVEL IV Diagnosis: Type 2 diabetes mellitus with hyperglycemia[ICD10: E11.65] Diagnosis: Essential (primary) hypertension[ICD10: I10] Diagnosis: Dorsalgia, unspecified[ICD10: M54.9] Maria Victoria Harrell MD, [facility] CPT- 4: 18347 01/24/2016 ([id number]) 38909 EST. PATIENT, LEVEL IV Diagnosis: Type 2 diabetes mellitus with hyperglycemia[ICD10: E11.65] Diagnosis: Essential (primary) hypertension[ICD10: I10] Diagnosis: Dorsalgia, unspecified[ICD10: M54.9] Maria Victoria Harrell MD, [facility] CPT- 4: 24203 10/27/2015 ([id number]) 41946 EST. PATIENT, LEVEL III Diagnosis: Type 2 diabetes mellitus with hyperglycemia[ICD10: E11.65] Maria Victoria Harrell MD, [facility] CPT-4: 96805 09/21/2015 ([id number]) 55428 EST. PATIENT, LEVEL IV Diagnosis: Type 2 diabetes mellitus with hyperglycemia[ICD10: E11.65] Diagnosis: Essential (primary) hypertension[ICD10: I10] Maria Victoria Harrell MD, [facility] CPT-4: 43420 08/17/2015 ([id number]) 48805 EST. PATIENT, LEVEL IV Diagnosis: VACCIN FOR INFLUENZA[ICD10: Z23] Diagnosis: Type 2 diabetes mellitus with hyperglycemia[ICD10: E11.65] Diagnosis: Morbid (severe) obesity due to excess calories[ICD10: E66.01] Diagnosis: Dorsalgia, unspecified[ICD10: M54.9] Maria Victoria Harrell MD, [facility] CPT- 4: 31306 07/20/2015 ([id number]) 68643 EST. PATIENT, LEVEL IV Diagnosis: Diabetes mellitus type 2, uncontrolled[ICD9: 250.02] Diagnosis: ESSENTIAL HYPERTENSION[ICD9: 401.9] Diagnosis: MORBID OBESITY[ICD9: 278.01] Diagnosis: Peripheral neuropathic pain[ICD9: 356.9] Diagnosis: Diabetic neuropathy[ICD9: 250.60] Maria Victoria Harrell MD, [facility] CPT- 4: 35254 04/20/2015 ([id number]) Miscellaneous no charge Diagnosis: Cerumen impaction[ICD9: 380.4] Maria Victoria Harrell MD, [facility] CPT-4: 71112 02/28/2015 ([id number]) 25244 EST. PATIENT, LEVEL IV Diagnosis: Diabetes mellitus type 2, uncontrolled[ICD9: 250.02] Diagnosis: ESSENTIAL HYPERTENSION[ICD9: 401.9] Maria Victoria Harrell MD, [facility] CPT- 4: 58959 02/14/2015 ([id number]) 27592 EST. PATIENT, LEVEL III Diagnosis: Diabetes mellitus type 2, uncontrolled[ICD9: 250.02] Maria Victoria Harrell MD, [facility] CPT-4: 89767 11/11/2014 ([id number]) 92780 EST. PATIENT, LEVEL IV Diagnosis: ESSENTIAL HYPERTENSION[ICD9: 401.9] Diagnosis: DIABETES TYPE II[ICD9: 250.00] Diagnosis: Esophageal reflux[ICD9: 530.81] Diagnosis: DYSPHAGIA NEC[ICD9: 787.29] Maria Victoria Harrell MD, [facility] CPT-4: 65268 10/04/2014 ([id number]) 18118 EST. PATIENT, LEVEL IV Diagnosis: DIABETES TYPE II[ICD9: 250.00] Diagnosis: ESSENTIAL HYPERTENSION[ICD9: 401.9] Diagnosis: BPH (benign prostatic hyperplasia)[ICD9: 600.00] Maria Victoria Harrell MD [facility] CPT-4: 25180 08/02/2014 ([id number]) 54334 EST. PATIENT, LEVEL III Diagnosis: Enlarged prostate[ICD9: 600.00] Maria Victoria Harrell MD [facility] CPT-4: 85186 06/15/2014 ([id number]) 42206 EST. PATIENT, LEVEL III Diagnosis: Right hip pain[ICD9: 719.45] Diagnosis: BACKACHE[ICD9: 724.5] Diagnosis: Sacroiliitis[ICD9: 720.2] Sunitha Harrell MD [facility] CPT-4: 48112 05/04/2014 ([id number]) 16324 EST. PATIENT, LEVEL IV Diagnosis: DM W/O COMPLICATION TYPE II, UNCONTROLLED[ICD9: 250.02] Diagnosis: ESSENTIAL HYPERTENSION[ICD9: 401.9] Maria Victoria Harrell MD [facility] CPT- 4: 89738 04/19/2014 ([id number]) 55680 EST. PATIENT, LEVEL IV Diagnosis: Mild cognitive impairment[ICD9: 331.83] Diagnosis: Nightmares[ICD9: 307.47] Diagnosis: Sleep apnea[ICD9: 780.57] Maria Victoria Harrell MD [facility] CPT-4: 70895 02/08/2014 ([id number]) 27954 EST. PATIENT, LEVEL III Diagnosis: DM W/O COMPLICATION TYPE II, UNCONTROLLED[ICD9: 250.02] Maria Victoria Harrell MD [facility] CPT-4: 04091 01/13/2014 ([id number]) 40861 EST. 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 PATIENT, LEVEL IV Diagnosis: DIABETES TYPE II[SNOMED: 432939216] Diagnosis: ESSENTIAL HYPERTENSION[SNOMED: 51999644] Diagnosis: Flat feet[ICD9: 734] Maria Victoria Harrell MD [facility] CPT-4: 31794 07/01/2013 ([id number]) Miscellaneous no charge Diagnosis: DM W/O COMPLICATION TYPE II, UNCONTROLLED[SNOMED: 30448868] Diagnosis: MORBID OBESITY[ICD9: 278.01] Maria Victoria Harrell MD [facility] CPT-4: 10730 05/13/2013 ([id number]) Miscellaneous no charge Diagnosis: MORBID OBESITY[ICD9: 278.01] Maria Victoria Harrell MD [facility] CPT-4: 86723 04/15/2013 ([id number]) 74989 EST. PATIENT, LEVEL III Diagnosis: DM W/O COMPLICATION TYPE II, UNCONTROLLED[SNOMED: 10454592] Diagnosis: Dietary restriction[ICD9: V65.3] Diagnosis: Morbid obesity with BMI of 40.0-44.9, adult[ICD9: 278.01] Maria Victoria Harrell MD, [facility] CPT-4: 20437 03/04/2013 ([id number]) 57882 EST. PATIENT, LEVEL IV Diagnosis: DM W/O COMPLICATION TYPE II, UNCONTROLLED[SNOMED: 72776185] Diagnosis: ENTHESOPATHY OF HIP[ICD9: 726.5] Diagnosis: BACKACHE[ICD9: 724.5] Maria Victoria Harrell MD [facility] CPT-4: 90414 02/04/2013 ([id number]) 27243 EST. PATIENT, LEVEL III Diagnosis: DM W/O COMPLICATION TYPE II, UNCONTROLLED[SNOMED: 05964293] Maria Victoria Harrell MD, [facility] CPT-4: 97520 12/03/2012 ([id number]) 04961 EST. PATIENT, LEVEL III Diagnosis: Tinnitus[ICD9: 388.30] Diagnosis: Cerumen impaction[ICD9: 380.4] Sunitha Harrell MD, [facility] CPT-4: 68507 10/14/2012 ([id number]) 59051 EST. PATIENT, LEVEL III Diagnosis: ENTHESOPATHY OF HIP[ICD9: 726.5] Diagnosis: JOINT PAIN-PELVIS[ICD9: 719.45] Maria Victoria Harrell MD, [facility] CPT-4: 00271 09/29/2012 93100 EST. PATIENT, LEVEL II Diagnosis: Right hip pain[ICD9: 719.45] Diagnosis: Bursitis of hip, right[ICD9: 726.5] Diagnosis: DM W/O COMPLICATION TYPE II, UNCONTROLLED[SNOMED: 47019194] Sunitha Harrell MD, [facility] CPT-4: 91265 09/25/2012 ([id number]) 66263 EST. PATIENT, LEVEL III Diagnosis: DM W/O COMPLICATION TYPE II, UNCONTROLLED[SNOMED: 03569196] Maria Victoria Harrell MD, [facility] CPT-4: 34631 08/27/2012 ([id number]) 97377 EST. PATIENT, LEVEL III Diagnosis: Diabetes mellitus out of control[SNOMED: 30017248] Maria Victoria Harrell MD [facility] CPT-4: 83753 06/25/2012 ([id number]) 91635 EST. PATIENT, LEVEL III Diagnosis: DM W/O COMPLICATION TYPE II, UNCONTROLLED[SNOMED: 37774095] Diagnosis: ESSENTIAL HYPERTENSION[SNOMED: 64877981] Maria Victoria Harrell MD, [facility] CPT-4: 69999 06/03/2012 ([id number]) 34221 EST. PATIENT, LEVEL III Diagnosis: DM W/O COMPLICATION TYPE II, UNCONTROLLED[SNOMED: 22623087] Diagnosis: Back pain[ICD9: 724.5] Maria Victoria Harrell MD, [facility] CPT-4: 73209 04/24/2012 ([id number]) 65195 EST. PATIENT, LEVEL IV Diagnosis: BACKACHE[ICD9: 724.5] Diagnosis: MORBID OBESITY[ICD9: 278.01] Diagnosis: Depression[ICD9: 311] Maria Victoria Harrell MD, [facility] CPT-4: 95600 04/09/2012 ([id number]) 15446 EST. PATIENT, LEVEL IV Diagnosis: Diabetes mellitus type 2, uncontrolled[SNOMED: 55682143] Diagnosis: ESSENTIAL HYPERTENSION[SNOMED: 50085056] Maria Victoria Harrell MD, [facility] CPT-4: 16425 03/04/2012 ([id number]) 90077 EST. PATIENT, LEVEL IV Diagnosis: DM W/O COMPLICATION TYPE II, UNCONTROLLED[SNOMED: 53370815] Diagnosis: MORBID OBESITY[ICD9: 278.01] Maria Victoria Harrell MD, [facility] CPT-4: 47851 12/03/2011 ([id number]) 49897 EST. PATIENT, LEVEL IV Diagnosis: DM W/O COMPLICATION TYPE II, UNCONTROLLED[SNOMED: 97320189] Diagnosis: ESSENTIAL HYPERTENSION[SNOMED: 04782958] Diagnosis: Hyperlipidemia[ICD9: 272.4] Diagnosis: Morbid obesity[ICD9: 278.01] Maria Victoria Harrell MD, [facility] CPT-4: 95672 10/31/2011 ([id number] 43975 EST. PATIENT, LEVEL IV Diagnosis: ESSENTIAL HYPERTENSION[SNOMED: 99428150] Diagnosis: DM W/O COMPLICATION TYPE II, UNCONTROLLED[SNOMED: 62507468] Diagnosis: MORBID OBESITY[ICD9: 278.01] Maria Victoria Harrell MD, [facility] CPT-4: 55778 08/29/2011 93568 EST. PATIENT, LEVEL IV Diagnosis: Diabetes mellitus type 2, uncontrolled[SNOMED: 55872266] Diagnosis: ESSENTIAL HYPERTENSION[SNOMED: 29529096] Diagnosis: Actinic keratosis[ICD9: 702.0] Maria Victoria Harrell MD, [facility] CPT-4: 83798 07/18/2011 Plan of Care Planned Activity Notes [...] assure normal liver response to medications. 10/09/2018 Patient Education: Patient Medication Summary Completed 10/09/2018 Patient Education: Diabetes Completed 10/09/2018 Patient Education: Cholesterol Management Completed 10/09/2018 Care Plan: Referral Order SNOMED-CT : 583239349 Pending 10/09/2018 Patient Education: Patient Medication Summary [...] Mai 07/07/2018 Appointment: Maria Victoria Harrell WPtel[facility] [place] (15 min) Moderate 07/07/2018 Patient [...] disease. 05/21/2018 Appointment: Maria Victoria Harrell WPtel: [address] [place], [place] [address] (15 min) Moderate 05/21/2018 Patient Education: Patient [...] 03/06/2018 Appointment: [facility] Victoria [facility] [phone] [facility] (15 min) Moderate 03/06/2018 Patient Education: Patient Medication Summary Completed 03/06/2018 Patient Education: Obesity Completed 03/06/2018 Patient Education: Patient Medication Summary Completed 03/03/2018 Care Plan: %Hba1C INC : 76977-8 Pending 03/03/2018 Visit Plan: Medicare Exam - [...] Summary Completed 12/24/2017 Appointment: [facility] [phone] [phone] [facility] - Annual Wellness Visit 12/19/2017 Visit [...] 11/21/2017 Appointment: [facility] [phone] [facility] (15 min) Moderate 11/21/2017 Patient Education: [...] 07/29/2017 Appointment: [facility] [phone] [facility] (15 min) Moderate 07/29/2017 Patient Education: Patient Medication Summary Completed 07/29/2017 Patient Education: Obesity Completed 07/29/2017 Visit Plan: Skin tag removed - pt tolerated procedure well - Wound Instructions - Pt was instructed to keep the wound clean, wash with antibacterial soap, use triple antibiotic ointment, call if redness, pustular drainage, or any other acute concerns. 07/02/2017 Appointment: Zunilda Carrillo WPtel: [phone] [facility] (30 min) Complex 07/02/2017 Patient Education: Patient Medication Summary Completed 07/02/2017 Appointment: Injection 06/28/2017 Patient Education: Patient Medication Summary Completed 06/28/2017 Visit Plan: Sciatica- exercises discussed with the patient, pt to continue with antiinflammatories. Pt is to call if the symptoms do not improve or if they worsen. Kenalog injection today in the office. 06/04/2017 Appointment: Sunitha Moran WPtel: [phone] [place] (30 min) Complex 06/04/2017 Patient Education: [...] and copy given to patient for his e tailer. Hypertension - well controlled - continue with current medications, continue with no added salt diet. Pt has been encouraged to exercise daily. The pt has been advised to call the office if there are any acute concerns about change in blood pressure readings at home. 04/03/2017 Appointment: Maria Victoria Harrell WPtel: [facility] [place] (15 min) Moderate 04/03/2017 Patient Education: [...] care surrogate. 12/13/2016 Appointment: Sunitha Moran WPtel: [address] [place], [place] [phone] [facility] - Annual Wellness Visit 12/13/2016 Patient Education: Patient Medication Summary Completed 12/13/2016 Care Plan: Referral Order SNOMED-CT : 977178816 Pending 12/13/2016 Visit Plan: Hypertension - well [...] controlled. 12/05/2016 Appointment: [facility] Victoria Har[facility] [phone] [facility] [place] (15 min) Moderate 12/05/2016 Patient Education: Patient Medication Summary Completed 12/05/2016 Patient Education: Obesity Completed 12/05/2016 Care Plan: CT ABD & PELVIS W/O CONTRAST LOINC : 27226-7 Pending 12/05/2016 Patient Education: Patient Medication Summary [...] care 08/30/2016 Appointment: [facility] Victoria Har[facility] [phone] [facility] [place] (15 min) Moderate 08/30/2016 Patient Education: Patient Medication Summary Completed 08/30/2016 Patient Education: Obesity Completed 08/30/2016 Patient Education: Hypertension Completed 08/30/2016 Patient Education: Patient Medication Summary Completed 08/23/2016 Visit Plan: Left forearm pain-use voltaren gel as needed-xray forearm for further evaluation UA negative-patient instructed to increase po fluids-call if symptoms do not resolve 07/13/2016 Appointment: Sunith[facility] Moran [facility] [phone] [phone] [place] (10 min) Simple 07/13/2016 Patient Education: [...] disease process. 06/21/2016 Appointment: Sunith[facility] Moran [facility] [phone] [phone] (30 min) Complex 06/21/2016 Patient Education: Patient Medication Summary Completed 06/21/2016 Appointment: [facility] Moran [facility] [phone] [phone] (30 min) Complex 06/15/2016 Visit Plan: Hypertension [...] improve. 01/24/2016 Appointment: [facility] Victoria Har[facility]el[facility] [phone] [facility] (15 min) Moderate 01/24/2016 Patient Education: [...] improve. 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 daily increase novolin to 8units in the morning, 10 units at lunch and 8 units at supper 09/21/2015 Appointment: Maria Victoria Har[facility] [phone] [facility] [place] (15 min) Moderate 09/21/2015 Patient [...] 08/17/2015 Appointment: [facility] Victoria [facility] [phone] [facility] [place] (15 min) Moderate 08/17/2015 Patient Education: [...] belviq 07/20/2015 Appointment: Maria Victoria Har[facility]el[facility] [phone] [facility] (15 min) Moderate 07/20/2015 Patient Education: [...] 04/20/2015 Appointment: Maria Victoria Har[facility]el[facility] [phone] [facility] [place] (15 min) Moderate 04/20/2015 Patient Education: Patient [...] 02/14/2015 Appointment: [phone] [facility] 02/14/2015 Patient Education: Patient [...] control. 11/11/2014 Appointment: [phone] [facility] [place] Follow up 11/11/2014 Patient Education: Patient Medication Summary Completed 11/11/2014 Appointment: Maria Victoria Harrell WPtel: [phone] [facility] [place] Follow up 11/04/2014 Visit Plan: Esophageal Reflux [...] home. 10/04/2014 Appointment: Maria Victoria Harrell WPtel: [address] [place] [address] Follow up 10/04/2014 Patient Education: Patient Medication Summary Completed 10/04/2014 Patient Education: Hypertension Completed 10/04/2014 Appointment: Maria Victoria Harrell WPtel: [address] [place], [place] [phone] Follow up 08/19/2014 Visit Plan: Diabetes Mellitus [...] avodart 08/02/2014 Appointment: Maria Victoria Harrell WPtel: [facility] Sick 08/02/2014 Patient Education: Patient Medication Summary Completed 08/02/2014 Patient Education: Hypertension Completed 08/02/2014 Visit Plan: Enlarged prostate with decreased urine flow - recommended that the patient start on tamsulosin 0.4mg daily - will need to start him on this in about 2-3 weeks. Check PSA in 2-3 weeks. 06/15/2014 Appointment: Maria Victoria Harrell [facility]el[phone] [facility] [place] Follow up 06/15/2014 Patient Education: Patient Medication Summary Completed 06/15/2014 Appointment: [facility] Victoria [phone] [id number] [place] Injection 06/03/2014 Patient Education: Patient [...] - pt to see this Opthamologist in [place] - May 25. 04/19/2014 Appointment: [phone] [facility] [place] Follow up 04/19/2014 Patient Education: Patient Medication [...] 02/08/2014 Appointment: [phone] [facility] Follow up 02/08/2014 Patient Education: Patient [...] 01/13/2014 Appointment: [phone] [facility] [place] Follow up 01/13/2014 Patient Education: [...] - recommended referral to Dr. Fine at [facility] [place]. 10/14/2013 Patient Education: Patient Medication Summary [...] support. 07/01/2013 Appointment: Maria Victoria Harrell WPtel: [address] [place], [place] [phone] Follow up 07/01/2013 Patient Education: Patient Medication Summary Completed 07/01/2013 Patient Education: Hypertension Completed 07/01/2013 Appointment: Maria Victoria Harrell WPtel: [facility] Other 05/13/2013 Patient Education: Patient Medication Summary Completed 05/13/2013 Appointment: Maria Victoria Harrell WPtel: [facility] Other 04/15/2013 Patient Education: Patient Medication Summary [...] 03/04/2013 Appointment: [phone] Follow [facility] 03/04/2013 Patient Education: Patient Medication [...] 02/04/2013 Appointment: [facility]el[facility] [phone] [facility] Follow up 02/04/2013 Patient Education: Patient [...] bedtime. 12/03/2012 Appointment: Maria Victoria Harrell WPtel: [address] [place], [place] [phone] Follow up 12/03/2012 Patient Education: Patient Medication Summary Completed 12/03/2012 Visit Plan: Tinnitus-cerumen impaction-cerumen adhered to left TM-discussed using sweet oil nightly for the next week and call if symptoms have not improved. Patient verbalized understanding of plan . 10/14/2012 Appointment: Sunitha Moran WPtel: [address] [place], [place] [phone] Sick 10/14/2012 Patient Education: Patient Medication Summary Completed 10/14/2012 Visit Plan: Arthritis- occasionally uncontrolled symptoms- recommend pt to take antiinflammatory as directed for pain control. Use tylenol for break through pain symptoms. 09/29/2012 Appointment: Maria Victoria Harrell WPtel: [address] [place] [address] Other 09/29/2012 Patient Education: Patient Medication Summary [...] blood sugars 09/25/2012 Appointment: Sunitha Moran WPtel: [address] [place], [place] [phone] Other 09/25/2012 Patient Education: Patient Medication Summary [...] 08/27/2012 Appointment: [phone] [facility] Follow up 08/27/2012 Patient Education: Patient Medication [...] 06/25/2012 Appointment: [phone] [facility] Follow up 06/25/2012 Patient Education: Patient Medication [...] 06/03/2012 Appointment: Maria Victoria Harrell WPtel: [phone] [facility] Follow up 06/03/2012 Patient Education: Patient Medication [...] pain. 04/24/2012 Appointment: Maria Victoria Harrell WPtel: [facility] Follow up 04/24/2012 Patient Education: Patient Medication [...] improve. 04/09/2012 Appointment: Maria Victoria Harrell WPtel: [facility] [place] Other 04/09/2012 Patient Education: Patient Medication Summary Completed 04/09/2012 Patient Education: .Amazing charts Exercise for Sciatica Completed 04/09/2012 Appointment: Sunitha Moran WPtel: [phone] [place] Other 03/13/2012 Visit Plan: Diabetes Mellitus - [...] pain. 03/04/2012 Appointment: Maria Victoria Harrell WPtel: [facility] [address] Other 03/04/2012 Patient Education: Patient Medication Summary [...] pains/fatigue. 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 10/31/2011 Appointment: Maria Victoria Harrell WPtel: [address] [place], [place] [id number] Other 10/31/2011 Patient Education: Patient Medication Summary [...] check. 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 07/18/2011 Appointment: Maria Victoria Harrell WPtel: [phone] [facility] Other 07/18/2011 Patient Education: Patient Medication Summary Completed 07/18/2011 Patient Education: High Blood Pressure: Essential Hypertension Completed 07/18/2011 Referral: Jose Manuel Referral Appointment Requested Referral: [facility] Referral Appointment Requested Referral: Kiran [...] 10mg twice daily - [facility] . Diabetes Mellitus - Uncontrolled - [...] further investigative studies planned by his current information clerk cashier. 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 Hypertension - well controlled - continue with [...] units increase was made. Dr. Mai at [facility] - Cardiothoracic surgeon. . Hypertension - well [...] insurance how much this will cost you [facility] decrease toujeo to 40 units daily increase [...] insurance how much this will cost you [facility] decrease toujeo to 40 units daily increase [...] - pt to see this Opthamologist in [place] - May 25. BRING IN THE GLUCOMETER [...] - recommended referral to Dr. Fine at [facility] [...]
--- OUTSIDE RECORDS SUMMARY | 2019-01-23 15:31 | XMS REPORT | CCD ---
Author Author [facility] Organization [facility] Address [address] [place] [address] Phone Care Team Providers Care Bilingual Medical Assistant Name Role Phone PP Unavailable CCM Unavailable Summary Purpose Interface Exchange Insurance Providers Payer name Policy type / Coverage type Covered green party ID Effective Begin Date Effective End Date WPS Medicare Part B Medicare Part B [id number] Unknown [facility] Medicare Part B [id number] Unknown Family history Nephew Diagnosis Age At [...] Unknown Retired 07/18/[address]: 122770094 Never smoker 07/18/[address]: 010296614 Never drinks alcohol 07/18/2011 Has the patient [...] Date Resolved Date Essential (primary) hypertension ICD-9: 401.9 ICD-10: I10 Active 04/19/2014 Unknown Mixed hyperlipidemia ICD- 9: 272.4 ICD-10: E78.2 Active 10/31/2011 Unknown Type 2 diabetes mellitus with hyperglycemia ICD-9: 250.02 ICD-10: E11.65 Active 01/13/2014 Unknown Dorsalgia, unspecified ICD-9: 724.5 ICD-10: M54.9 Active 05/04/2014 Unknown Essential (primary) hypertension ICD-9: 401.1 ICD-10: I10 Active 12/05/2016 Unknown Mixed hyperlipidemia ICD- 9: 272.2 ICD-10: E78.2 Active 11/18/2017 Unknown Type 2 diabetes mellitus with diabetic [...] ICD-9: 278.00 ICD-10: E66.09 Active 03/06/2018 Unknown Type 2 diabetes mellitus without complications ICD-9: 250.00 ICD-10: E11.9 Active 03/28/2017 Unknown Encounter for general adult medical examination [...] Dates Condition Status Essential (primary) hypertension ICD-9: 401.9 ICD-10: I10 04/19/2014 Active Mixed hyperlipidemia ICD- 9: 272.4 ICD-10: E78.2 10/31/2011 Active Type 2 diabetes mellitus with hyperglycemia ICD-9: 250.02 ICD-10: E11.65 01/13/2014 Active Dorsalgia, unspecified ICD-9: 724.5 ICD-10: M54.9 05/04/2014 Active Essential (primary) hypertension ICD-9: 401.1 ICD-10: I10 12/05/2016 Active Mixed hyperlipidemia ICD- 9: 272.2 ICD-10: E78.2 11/18/2017 Active Type 2 diabetes mellitus with diabetic [...] calories ICD-9: 278.00 ICD-10: E66.09 03/06/2018 Active Type 2 diabetes mellitus without complications ICD-9: 250.00 ICD-10: E11.9 03/28/2017 Active Encounter for general adult medical examination [...] Start Date Stop Date Status Fill Instructions needle (disp) 31 gauge x 5/16" RxNorm: 1 Miscellaneous TID 02/10/2018 02/04/2019 Active finasteride 1 mg tablet RxNorm: 373547 1 Tablet(s) PO daily 12/25/2017 12/19/2018 Active D/C dutasteride finasteride 1 mg tablet RxNorm: 998030 1 Tablet(s) PO daily 12/25/2017 12/24/2017 Inactive D/C dutasteride Novolin R Regular U-100 Insulin 100 unit/mL injection solution RxNorm: 296266 10 Unit(s) Inj QAM 12 units at lunch and 10 units at supper 11/25/2017 11/29/2017 Inactive amoxicillin 500 mg capsule RxNorm: 237001 1 Capsule(s) PO QID 11/21/2017 11/30/2017 Inactive naproxen 500 mg tablet RxNorm: 099391 1 Tablet(s) PO BID 11/21/2017 12/04/2017 Inactive Novolin R Regular U-100 Insulin 100 unit/mL injection solution RxNorm: 778950 8 10 Unit(s) Inj QAM 12 units at lunch and 10 units at supper 11/21/2017 11/24/2017 Inactive Insulin Syringe 0.3 mL 29 X 5/16" RxNorm: 1 injection SQ TID 10/01/2017 07/27/2018 Inactive Protonix 40 mg tablet,delayed release RxNorm: 005782 1 Tablet(s) PO daily 09/27/2017 12/20/2018 Active Toujeo SoloStar U-300 Insulin 300 unit/mL (1.5 mL) subcutaneous pen RxNorm: 9698938 45 Unit(s) SQ daily 09/27/2017 12/20/2018 Active 90 day supply lovastatin 20 mg tablet RxNorm: 724986 1 Tablet(s) PO QHS 09/27/2017 12/20/2018 Active irbesartan 300 mg tablet RxNorm: 945978 1 Tablet(s) PO daily 09/27/2017 12/20/2018 Active metformin 1,000 mg tablet RxNorm: 170481 1 Tablet(s) PO BID 09/27/2017 12/20/2018 Active Voltaren 1 % topical gel RxNorm: 431726 4 Gram(s) TOP QID 09/27/2017 12/20/2018 Active [SAVINGS FOR NON-COVERED DRUGS -- BIN:[id number], PCN: ASPROD1, Group: XXXXX, ID# XXXXXXX, Questions: . THIS IS NOT INSURANCE.] magnesium oxide 400 mg tablet RxNorm: 448309 1 Tablet(s) PO daily 09/27/2017 12/20/2018 Active Trueresult Blood Glucose System RxNorm: 1 test Miscellaneous QID insulin dependent diabetes 09/27/2017 09/21/2018 Inactive Insulin Syringe 0.3 mL 29 X 5/16" RxNorm: 1 injection SQ BID 09/27/2017 09/30/2017 Inactive Novolin R 100 unit/mL injection solution RxNorm: 706305 8 Unit(s) Inj QAM 10 units at lunch and 8 units at supper 09/27/2017 11/20/2017 Inactive dutasteride 0.5 mg capsule RxNorm: 180090 1 Capsule(s) PO daily 09/27/2017 12/24/2017 Inactive Voltaren 1 % topical gel RxNorm: 925622 4 Gram(s) TOP QID 07/23/2017 09/26/2017 Inactive [SAVINGS FOR NON-COVERED DRUGS -- BIN:608555, PCN: ASPROD1, Group: XXXXX, ID# [id number], Questions: . THIS IS NOT INSURANCE.] Bactrim DS 800 mg-160 mg tablet RxNorm: 377882 1 Tablet(s) PO BID 07/02/2017 07/08/2017 Inactive Kenalog 40 mg/mL suspension for injection RxNorm: 9210191 1 Milliliter(s) Inj 06/04/2017 06/04/2017 Inactive Efudex 5 % topical cream RxNorm: 669814 1 TOP BID 12/05/2016 12/14/2016 Inactive Avapro 300 mg tablet RxNorm: 009430 Tablet(s) TAKE 1 TABLET BY MOUTH ONCE DAILY. 09/21/2016 09/15/2017 Inactive Toujeo SoloStar 300 unit/mL (1.5 mL) subcutaneous insulin pen RxNorm: 4044050 45 Unit(s) SQ daily 09/21/2016 09/15/2017 Inactive 90 day supply Novolin R 100 unit/mL injection solution RxNorm: 222017 8 Unit(s) Inj QAM 10 units at lunch and 8 units at supper 09/21/2016 09/15/2017 Inactive metformin 1,000 mg tablet RxNorm: 364617 Tablet(s) TAKE 1 TABLET BY MOUTH TWICE DAILY AFTER MEALS 09/21/2016 09/15/2017 Inactive lovastatin 20 mg tablet RxNorm: 887387 Tablet(s) TAKE ONE TABLET BY MOUTH ONCE DAILY. 09/21/2016 09/15/2017 Inactive dutasteride 0.5 mg capsule RxNorm: 931602 1 Capsule(s) PO daily 09/21/2016 09/15/2017 Inactive Toujeo SoloStar 300 unit/mL (1.5 mL) subcutaneous insulin pen RxNorm: 6709921 45 Unit(s) SQ daily 06/27/2016 09/20/2016 Inactive Kenalog 40 mg/mL suspension for injection RxNorm: 7454443 1 Milliliter(s) Inj 06/21/2016 06/21/2016 Inactive Toujeo SoloStar 300 unit/mL (1.5 mL) subcutaneous insulin pen RxNorm: 6465011 40 Unit(s) SQ daily 05/24/2016 06/26/2016 Inactive Novolin R 100 unit/mL injection solution RxNorm: 601326 8 Unit(s) Inj QAM 10 units at lunch and 8 units at supper 05/24/2016 09/20/2016 Inactive Bactrim DS 800 mg-160 mg tablet RxNorm: 687841 1 Tablet(s) PO BID 10/03/2015 01/31/2016 Inactive dutasteride 0.5 mg capsule RxNorm: 491320 1 Capsule(s) PO daily 09/26/2015 09/19/2016 Inactive dutasteride 0.5 mg capsule RxNorm: 429450 1 Capsule(s) PO daily 09/26/2015 09/25/2015 Inactive Avodart 0.5 mg capsule RxNorm: 760326 1 Capsule(s) PO QPM 09/21/2015 09/25/2015 Inactive Avapro 300 mg tablet RxNorm: 416261 Tablet(s) TAKE 1 TABLET BY MOUTH ONCE DAILY. 09/21/2015 09/14/2016 Inactive Generic For:AVAPRO 300MG 08/26/2015 9:53:42 AM lovastatin 20 mg tablet RxNorm: 976342 1 Tablet(s) TAKE ONE TABLET BY MOUTH ONCE DAILY. 09/21/2015 09/20/2016 Inactive Generic For:*MEVACOR 20MG 10/06/2014 12:16:37 PM Novolin R 100 unit/mL injection solution RxNorm: 928405 5 Unit(s) Inj QAM 8 units at lunch and 5 units at supper 09/21/2015 05/23/2016 Inactive metformin 1,000 mg tablet RxNorm: 614416 Tablet(s) TAKE 1 TABLET BY MOUTH TWICE DAILY AFTER MEALS 09/21/2015 09/20/2016 Inactive Generic For:*GLUCOPHAGE 1000MG 10/18/2014 5:26:11 PM Toujeo SoloStar 300 unit/mL (1.5 mL) subcutaneous insulin pen RxNorm: 2952746 60 Unit(s) SQ daily 09/21/2015 05/23/2016 Inactive 3 month supply DX 250.02 also needs pen needles to use daily dx 250.02 Novolin R 100 unit/mL injection solution RxNorm: 751771 5 Unit(s) Inj QAM 8 units at lunch and 5 units at supper 09/07/2015 09/20/2015 Inactive lovastatin 20 mg tablet RxNorm: 604014 Tablet(s) TAKE ONE TABLET BY MOUTH ONCE DAILY. 09/07/2015 09/20/2015 Inactive Generic For:*MEVACOR 20MG 10/06/2014 12:16:37 PM metformin 1,000 mg tablet RxNorm: 668013 Tablet(s) TAKE 1 TABLET BY MOUTH TWICE DAILY AFTER MEALS 09/07/2015 09/20/2015 Inactive Generic For:*GLUCOPHAGE 1000MG 10/18/2014 5:26:11 PM Toujeo SoloStar 300 unit/mL (1.5 mL) subcutaneous insulin pen RxNorm: 4796657 60 Unit(s) SQ daily 09/07/2015 09/20/2015 Inactive 3 month supply DX 250.02 also needs pen needles to use daily dx 250.02 Avapro 300 mg tablet RxNorm: 149766 TAKE 1 TABLET BY MOUTH ONCE DAILY. 08/26/2015 09/20/2015 Inactive Generic For:AVAPRO 300MG 08/26/2015 9:53:42 AM Avodart 0.5 mg capsule RxNorm: 929757 1 Capsule(s) PO QPM 08/17/2015 09/20/2015 Inactive Novolin R 100 unit/mL injection solution RxNorm: 138256 5 Unit(s) Inj QAM 8 units at lunch and 5 units at supper 08/17/2015 09/06/2015 Inactive Trueresult Blood Glucose System RxNorm: 1 test Miscellaneous QID insulin dependent diabetes 08/17/2015 08/10/2016 Inactive Avodart 0.5 mg capsule RxNorm: 768073 1 Capsule(s) PO QPM 08/14/2015 08/16/2015 Inactive Novolin R 100 unit/mL injection solution RxNorm: 892297 5 Unit(s) Inj TID with meals 07/20/2015 08/16/2015 Inactive Toujeo SoloStar 300 unit/mL (1.5 mL) subcutaneous insulin pen RxNorm: 9399223 60 Unit(s) SQ daily 07/20/2015 09/06/2015 Inactive one month supply DX 250.02 also needs pen needles to use daily dx 250.02 Bactrim DS 800 mg-160 mg tablet RxNorm: 840940 1 Tablet(s) PO BID 05/09/2015 05/15/2015 Inactive Bactrim DS 800 mg-160 mg tablet RxNorm: 924931 1 Tablet(s) PO BID 05/09/2015 05/08/2015 Inactive Bactrim DS 800 mg-160 mg tablet RxNorm: 275768 1 Tablet(s) PO BID 05/09/2015 05/08/2015 Inactive Toujeo SoloStar 300 unit/mL (1.5 mL) subcutaneous insulin pen RxNorm: 7696189 45u qdx3 days then 50u qdx 5 days then if fsbs >180 55u qd Unit(s) SQ daily 05/02/2015 07/19/2015 Inactive one month supply DX 250.02 also needs pen needles to use daily dx 250.02 Toujeo SoloStar 300 unit/mL (1.5 mL) subcutaneous insulin pen RxNorm: 4796893 45u qdx3 days then 50u qdx 5 days then if fsbs >180 55u qd Unit(s) SQ daily 05/02/2015 05/01/2015 Inactive one month supply DX 250.02 also needs pen needles to use daily dx 250.02 Belviq 10 mg tablet RxNorm: 0531973 1 Tablet(s) PO BID 04/20/2015 09/20/2015 Inactive Insulin Syringe 0.3 mL 29 X 5/16" RxNorm: 1 Miscellaneous BID 03/24/2015 04/16/2016 Inactive Lantus 100 unit/mL subcutaneous solution RxNorm: 930283 30 Unit(s) SQ BID 02/14/2015 05/01/2015 Inactive pt not ready for refill yet, when he is, please fill 25units bid Lantus 100 unit/mL subcutaneous solution RxNorm: 544423 28 Unit(s) SQ BID 11/11/2014 02/13/2015 Inactive pt not ready for refill yet, when he is, please fill 25units bid [SAVINGS FOR NON-COVERED DRUGS -- BIN:[id number], PCN: ASPROD1, Group: XXXXX, ID# [id number], Questions: . THIS IS NOT INSURANCE.] Voltaren 1 % topical gel RxNorm: 672357 4 Gram(s) TOP QID 11/11/2014 03/10/2015 Inactive [SAVINGS FOR NON-COVERED DRUGS -- BIN:054691, PCN: ASPROD1, Group: XXXXX, ID# [id number], Questions: . THIS IS NOT INSURANCE.] metformin 1,000 mg tablet RxNorm: 603017 TAKE 1 TABLET BY MOUTH TWICE DAILY AFTER MEALS 10/19/2014 09/06/2015 Inactive Generic For:*GLUCOPHAGE 1000MG 10/18/2014 5:26:11 PM metformin 1,000 mg tablet RxNorm: 161406 Tablet(s) TAKE 1 TABLET BY MOUTH TWICE DAILY AFTER MEALS 10/18/2014 10/18/2014 Inactive Generic For:*GLUCOPHAGE 1000MG 04/16/2014 9:02:30 AM lovastatin 20 mg tablet RxNorm: 742658 TAKE ONE TABLET BY MOUTH ONCE DAILY. 10/07/2014 09/06/2015 Inactive Generic For:*MEVACOR 20MG 10/06/2014 12:16:37 PM lovastatin 20 mg tablet RxNorm: 814394 1 Tablet(s) PO daily TAKE ONE (1) TABLET BY MOUTH DAILY 10/06/2014 10/06/2014 Inactive Generic For:MEVACOR 20 MG TABLET Generic For:MEVACOR 20 MG TABLET 08/14/2013 8:06:44 AM Carafate 1 gram tablet RxNorm: 916775 1 Tablet(s) PO QID dissolve in 10mL of fluid, drink liquid carafate four times daily before meals and before bed 10/04/2014 11/10/2014 Inactive may dispense generic Avapro 300 mg tablet RxNorm: 383097 TAKE 1 TABLET BY MOUTH ONCE DAILY. 08/26/2014 08/20/2015 Inactive Generic For:AVAPRO 300MG 08/26/2014 9:03:29 AM Avodart 0.5 mg capsule RxNorm: 242775 1 Capsule(s) PO QPM 08/02/2014 07/27/2015 Inactive meloxicam 15 mg tablet RxNorm: 411223 TAKE 1 TABLET BY MOUTH ONCE DAILY. 06/11/2014 11/10/2014 Inactive Generic For:MOBIC 15MG 06/11/2014 9:05:37 AM Kenalog 40 mg/mL suspension for injection RxNorm: 3798555 1 Milliliter(s) Inj 05/04/2014 05/04/2014 Inactive Lantus Solostar 100 unit/mL (3 mL) subcutaneous insulin pen RxNorm: 949347 25 Unit(s) SQ BID 04/19/2014 02/13/2015 Inactive Lantus 100 unit/mL subcutaneous solution RxNorm: 146259 25 Unit(s) SQ BID break up lantus to two shots daily of 22 units each shot 04/19/2014 11/10/2014 Inactive pt not ready for refill yet, when he is, please fill 25units bid metformin 1,000 mg tablet RxNorm: 353733 TAKE 1 TABLET BY MOUTH TWICE DAILY AFTER MEALS 04/16/2014 10/12/2014 Inactive Generic For:*GLUCOPHAGE 1000MG 04/16/2014 9:02:30 AM Insulin Syringe 0.3 mL 29 X 5/16" RxNorm: 1 Miscellaneous BID 03/15/2014 03/23/2015 Inactive Insulin Syringe 0.3 mL 29 X 5/16" RxNorm: 1 Miscellaneous BID 03/15/2014 03/14/2014 Inactive meloxicam 15 mg tablet RxNorm: 052429 TAKE 1 TABLET EVERY DAY 03/15/2014 06/10/2014 Inactive Generic For:MOBIC 15MG 03/15/2014 9:06:35 AM Lantus 100 unit/mL subcutaneous solution RxNorm: 966572 22 Unit(s) SQ BID break up lantus to two shots daily of 22 units each shot 01/14/2014 04/18/2014 Inactive metformin 1,000 mg tablet RxNorm: 687383 Tablet(s) PO TAKE 1 TABLET BY MOUTH TWICE DAILY AFTER MEALS 01/07/2014 04/15/2014 Inactive Generic For:*GLUCOPHAGE 1000MG Lantus 100 unit/mL subcutaneous solution RxNorm: 653328 25 Unit(s) SQ BID break up lantus to two shots daily of 25 units each shot 09/30/2013 09/29/2013 Inactive Lantus 100 unit/mL subcutaneous solution RxNorm: 532785 25 Unit(s) SQ BID break up lantus to two shots daily of 25 units each shot 09/30/2013 01/13/2014 Inactive metformin 1,000 mg tablet RxNorm: 453147 1 Tablet(s) PO BID TAKE 1 TABLET BY MOUTH TWICE DAILY AFTER MEALS 09/30/2013 12/28/2013 Inactive Generic For:GLUCOPHAGE 1000MG TAB Generic For:GLUCOPHAGE 1000MG TAB Avapro 300 mg tablet RxNorm: 256336 Tablet(s) PO TAKE ONE (1) TABLET BY MOUTH DAILY 08/28/2013 08/25/2014 Inactive Generic For:*AVAPRO 300MG TAB Generic For:*AVAPRO 300MG TAB 08/28/2013 8:53:42 AM lovastatin 20 mg tablet RxNorm: 480516 Tablet(s) PO TAKE ONE (1) TABLET BY MOUTH DAILY 08/14/2013 10/05/2014 Inactive Generic For:MEVACOR 20 MG TABLET Generic For:MEVACOR 20 MG TABLET 08/14/2013 8:06:44 AM metformin 1,000 mg tablet RxNorm: 616990 Tablet(s) PO TAKE 1 TABLET BY MOUTH TWICE DAILY AFTER MEALS 07/16/2013 09/29/2013 Inactive Generic For:GLUCOPHAGE 1000MG TAB Generic For:GLUCOPHAGE 1000MG TAB Influenza Virus Vaccine 0.5 mL RxNorm: IM 07/01/2013 07/01/2013 Inactive Contour Test Strips RxNorm: strip miscellaneous USE TO TEST BLOOD SUGAR THREE TIMES DAILY DIRECTED 06/29/2013 03/14/2014 Inactive metformin 1,000 mg tablet RxNorm: 933259 Tablet(s) PO TAKE 1 TABLET BY MOUTH TWICE DAILY AFTER MEALS 04/14/2013 07/15/2013 Inactive Generic For:GLUCOPHAGE 1000MG TAB meloxicam 15 mg tablet RxNorm: 781519 Tablet(s) PO TAKE ONE TABLET BY MOUTH EVERY DAY 03/21/2013 03/14/2014 Inactive Generic For:MOBIC 15MG TAB 03/19/2013 8:10:41 AM Lantus 100 unit/mL subcutaneous solution RxNorm: 333789 25 Unit(s) SQ BID break up lantus to two shots daily of 25 units each shot 03/04/2013 06/01/2013 Inactive Insulin Syringe 0.3 mL 29 X 5/16" RxNorm: 1 Unit Dose Miscellaneous BID 02/04/2013 09/01/2013 Inactive Lantus 100 unit/mL Sub-Q RxNorm: 514824 20 Unit(s) SQ BID break up lantus to two shots daily of 20units each shot 02/04/2013 03/03/2013 Inactive topiramate 25 mg tablet RxNorm: 908112 1 Tablet(s) PO daily 02/04/2013 04/08/2013 Inactive metformin 1,000 mg tablet RxNorm: 455404 Tablet(s) PO TAKE 1 TABLET BY MOUTH TWICE DAILY AFTER MEALS 01/15/2013 04/13/2013 Inactive Generic For:GLUCOPHAGE 1000MG TAB Lantus 100 unit/mL Sub-Q RxNorm: 749175 30 Unit(s) SQ QPM 12/03/2012 01/01/2013 Inactive Kenalog 40 mg/mL Susp for Injection RxNorm: 9033246 1 Milliliter(s) Inj 09/25/2012 09/25/2012 Inactive Lantus 100 unit/mL Sub-Q RxNorm: 427617 25 Unit(s) SQ QPM 09/12/2012 10/11/2012 Inactive Avapro 300 mg tablet RxNorm: 651848 Tablet(s) PO TAKE ONE (1) TABLET BY MOUTH DAILY 09/03/2012 09/02/2012 Inactive Generic For:AVAPRO 300MG TAB Avapro 300 mg tablet RxNorm: 999079 Tablet(s) PO TAKE ONE (1) TABLET BY MOUTH DAILY 09/03/2012 08/27/2013 Inactive Generic For:AVAPRO 300MG TAB Lantus 100 unit/mL Sub-Q RxNorm: 487707 20 Unit(s) SQ QPM 08/27/2012 09/11/2012 Inactive Avapro 300 mg tablet RxNorm: 719452 1 Tablet(s) PO daily 08/27/2012 09/02/2012 Inactive Lantus 100 unit/mL Sub-Q RxNorm: 940762 15 Unit(s) SQ QPM 08/07/2012 08/26/2012 Inactive metformin 1,000 mg tablet RxNorm: 364095 Tablet(s) PO 07/18/2012 01/14/2013 Inactive TAKE 1 TABLET BY MOUTH TWICE DAILY AFTER MEALS;Generic For:GLUCOPHAGE 1,000 MG TABLET Lantus 100 unit/mL Sub-Q RxNorm: 959329 13 Unit(s) SQ QPM 06/25/2012 07/24/2012 Inactive lovastatin 20 mg tablet RxNorm: 304655 Tablet(s) PO 06/20/2012 07/14/2013 Inactive TAKE 2 TABLETS BY MOUTH AT BEDTIME;Generic For:MEVACOR 20 MG TABLET Pneumovax 23 25 mcg/0.5 mL Injection RxNorm: 336879 Milliliter(s) Inj 06/04/2012 06/04/2012 Inactive Influenza Virus Vaccine 0.5 mL RxNorm: IM 06/04/2012 06/04/2012 Inactive Insulin Syringe 0.3 mL 29 X 5/16" RxNorm: 1 Unit Dose Miscellaneous daily 06/03/2012 12/29/2012 Inactive lovastatin 20 mg tablet RxNorm: 763428 Tablet(s) PO 05/14/2012 06/19/2012 Inactive TAKE 2 TABLETS BY MOUTH AT BEDTIME;Generic For:MEVACOR 20 MG TABLET Contour Test Strips RxNorm: Miscellaneous TID 04/25/2012 05/24/2012 Inactive lovastatin 20 mg tablet RxNorm: 310687 Tablet(s) PO 04/16/2012 05/13/2012 Inactive TAKE 2 TABLETS BY MOUTH AT BEDTIME;Generic For:MEVACOR 20 MG TABLET metformin 1,000 mg tablet RxNorm: 917744 Tablet(s) PO 04/16/2012 07/17/2012 Inactive TAKE 1 TABLET BY MOUTH TWICE DAILY AFTER MEALS;Generic For:GLUCOPHAGE 1,000 MG TABLET citalopram 20 mg tablet RxNorm: 462576 1 Tablet(s) PO daily 04/09/2012 09/23/2012 Inactive meloxicam 15 mg Tab RxNorm: 391865 1 Tablet(s) PO daily 2012 03/04/2012 Inactive meloxicam 15 mg Tab RxNorm: 042512 Tablet(s) PO 2012 07/19/2015 Inactive TAKE 1 TABLET BY MOUTH DAILY;Generic For:MOBIC 15MG TAB WC meloxicam 15 mg tablet RxNorm: 669852 1 Tablet(s) PO daily 2012 03/04/2012 Inactive Rocephin 500 mg Solution for Injection RxNorm: 961924 Inj 03/04/2012 03/04/2012 Inactive sulfamethoxazole 800 mg-trimethoprim 160 mg tablet RxNorm: 291450 1 Tablet(s) PO BID 03/04/2012 03/13/2012 Inactive metoprolol succinate ER 25 mg 24 hr Tab RxNorm: 978690 1 Tablet(s) PO daily 12/03/2011 11/16/2014 Inactive Byetta 10 mcg/0.04 mL per dose Sub-Q Pen Injector RxNorm: 594815 10 Microgram(s) SQ BID 10 meq twice daily before the two largest meals of the day. 12/03/2011 06/03/2012 Inactive Plavix 75 mg Tab RxNorm: 839242 1 Tablet(s) PO daily 12/03/2011 11/16/2014 Inactive lovastatin 20 mg tablet RxNorm: 833416 2 Tablet(s) PO daily 11/12/2011 04/15/2012 Inactive TAKE 2 TABLETS BY MOUTH DAILY AT BEDTIME;Generic For:MEVACOR 20 MG TABLET N O T I C E Last dispense quantity was less than original quantity written Avapro 300 mg tablet RxNorm: 691055 1 Tablet(s) PO daily 08/28/2011 08/21/2012 Inactive metformin 1,000 mg Tab RxNorm: 414428 1 Tablet(s) PO BID 07/09/2011 07/02/2012 Inactive Victoza 0.6 mg/0.1 mL (18 mg/3 mL) Sub-Q Pen Injector RxNorm: 959911 1.8 Milligram(s) SQ daily 06/20/2011 03/04/2012 Inactive Fish Oil 1,000 mg capsule RxNorm: 1 Capsule(s) PO BID No Start Date Active Ocuvite oral RxNorm: 550038 oral No Start Date Active Farxiga 5 mg tablet RxNorm: 4673453 1 Tablet(s) PO QAM No Start Date Active potassium gluconate 595 mg (99 mg) tablet RxNorm: 954795 1 Tablet(s) PO daily No Start Date Active aspirin 81 mg Cap, Delayed Release RxNorm: 930249 1 Capsule(s) PO daily No Start Date Active multivitamin tablet RxNorm: oral No Start Date Active B Complex 1 oral RxNorm: 52933 oral No Start Date Active Protonix 40 mg tablet,delayed release RxNorm: 658707 1 Tablet(s) PO daily No Start Date 09/26/2017 Inactive Bydureon 2 mg SubQ Susp RxNorm: 6859745 1 SQ QW No Start Date 06/03/2012 Inactive Avapro 150 mg Tab RxNorm: 489652 1 Tablet(s) PO daily No Start Date 03/04/2012 Inactive Travatan Z 0.004 % Eye Drops RxNorm: 323108 1 Drop(s) OPH daily No Start Date 06/14/2014 Inactive metformin 1,000 mg tablet RxNorm: 702815 1 Tablet(s) PO BID No Start Date 03/04/2012 Inactive magnesium oxide 400 mg tablet RxNorm: 866031 Tablet(s) PO No Start Date 09/26/2017 Inactive Ativan 0.5 mg tablet RxNorm: 840003 1 Tablet(s) PO No Start Date 10/09/2013 Inactive 1 30 min prior to procedure meloxicam 15 mg Tab RxNorm: 553158 1 Tablet(s) PO daily No Start Date 03/04/2012 Inactive lovastatin 20 mg Tab RxNorm: 666211 2 Tablet(s) PO QHS No Start Date 11/12/2011 Inactive Pen Needle 31 x 3/16" RxNorm: Miscellaneous BID Pen Dysart 31g/8mm BD to use for Byetta injection BID No Start Date 06/03/2012 Inactive Medication Administered Medication Codes Instructions Start Date Status Kenalog 40 mg/mL suspension for injection RxNorm: 9328597 1Milliliter 06/04/2017 No longer Active Kenalog 40 mg/mL suspension for injection RxNorm: 5689815 1Milliliter 06/21/2016 No longer Active Kenalog 40 mg/mL suspension for injection RxNorm: 9079810 1Milliliter 05/04/2014 No longer Active Influenza Virus Vaccine 0.5 mL RxNorm: 07/01/2013 No longer Active Kenalog 40 mg/mL Susp for Injection RxNorm: 1573136 1Milliliter 09/25/2012 No longer Active Influenza Virus Vaccine 0.5 mL RxNorm: 06/04/2012 No longer Active Pneumovax 23 25 mcg/0.5 mL Injection RxNorm: 749674 Milliliter 06/04/2012 No longer Active Rocephin 500 mg Solution for Injection RxNorm: 568712 03/04/2012 No longer Active Immunizations Vaccine Codes [...] Dates Essential (primary) hypertension ICD-10: I10 ICD-9: 401.9 10/06/2018 Type 2 diabetes mellitus with hyperglycemia ICD-10: E11.65 ICD-9: 250.02 10/06/2018 Mixed hyperlipidemia ICD-10: E78.2 ICD-9: 272.4 10/06/2018 Essential (primary) hypertension ICD-10: I10 ICD-9: 401.1 07/07/2018 Low back pain ICD-10: M54.5 ICD-9: 724.2 07/07/2018 Mixed hyperlipidemia ICD-10: E78.2 ICD-9: 272.2 07/03/2018 Type 2 diabetes mellitus with diabetic polyneuropathy ICD-10: E11.42 ICD-9: 250.60 07/03/2018 Encounter for immunization ICD-10: Z23 ICD-9: V04.81 05/21/2018 Encounter for gynecological examination (general) (routine) without abnormal findings ICD-10: Z01.419 ICD-9: V72.31 05/21/2018 Other obesity due to excess calories ICD-10: E66.09 ICD-9: 278.00 03/06/2018 Essential tremor ICD-10: G25.0 ICD-9: 333.1 03/06/2018 Type 2 diabetes mellitus without complications ICD-10: E11.9 ICD-9: 250.00 03/03/2018 Trochanteric bursitis, right hip ICD-10: M70.61 ICD-9: [...] 331.83 02/08/2014 Nightmares ICD-9: 307.47 02/08/2014 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 10/14/2013 Thumb pain ICD-9: 729.5 [...] For Visit Effective Dates Notes diabetes mellitus 07/07/2018 diabetes mellitus 05/21/2018 diabetes [...] Observation Code Item Item Code Result Date %Hba1C Yxc189 % HbA1c 43812- 6 7.6 % 07/04/2018 %Hba1C Rga292 Gluc Ave 171 mg/dL 07/04/2018 Comp Metabolic Reu333 NA 140 mEq/L 07/04/2018 Comp Metabolic Kum122 K 4.5 mEq/L 07/04/2018 Comp Metabolic Qim954 CL 104 mEq/L 07/04/2018 Comp Metabolic Pxt923 CO2 28.0 mEq/L 07/04/2018 Comp Metabolic Kcv975 ANION GAP 13 07/04/2018 Comp Metabolic Zxr090 GLUCOSE 211 mg/dL 07/04/2018 Comp Metabolic Hos548 Creat 0.9 mg/dL 07/04/2018 Comp Metabolic Ans485 eGFR 85 ml/min/1.73m2 07/04/2018 Comp Metabolic Rhj290 BUN 20 mg/dL 07/04/2018 Comp Metabolic Cqq631 B/C Ratio 21.7 Ratio 07/04/2018 Comp Metabolic Zjq029 CALCIUM 9.5 mg/dL 07/04/2018 Comp Metabolic Oyx642 ALK PHOS 46 U/L 07/04/2018 Comp Metabolic Ktz874 AST(SGOT) 26 U/L 07/04/2018 Comp Metabolic Gst830 ALT(SGPT) 29 U/L 07/04/2018 Comp Metabolic Rqt950 BILI T 0.6 mg/dL 07/04/2018 Comp Metabolic Wce270 ALBUMIN 4.2 g/dL 07/04/2018 Comp Metabolic Bxv351 TPRO 6.8 g/dL 07/04/2018 Comp Metabolic Ram192 GLOB 2.6 g/dL 07/04/2018 Comp Metabolic Tuh671 A/G Ratio 1.6 Ratio 07/04/2018 Comp Metabolic Djw918 Osmo 288 mOsmo 07/04/2018 Tsh Ord6 TSH [...] 91.8 fl 07/04/2018 Cbc With Differential Ord2 [place]% 12.9 % 07/04/2018 Cbc With Differential Ord2 [...] 1.86 K/ul 07/04/2018 Cbc With Differential Ord2 [place] ABS# 0.9 K/ul 07/04/2018 Cbc With Differential Ord2 Eos ABS# 0.3 K/ul 07/04/2018 Cbc With Differential Ord2 Baso ABS# 0.1 K/ul 07/04/2018 Lipid Ord30 CHOL 159 mg/dL 07/04/2018 Lipid Ord30 HDL 45.0 mg/dl 07/04/2018 Lipid Ord30 TRIG 244 mg/dL 07/04/2018 Lipid Ord30 LDL 65 mg/dL 07/04/2018 Lipid Ord30 C/HDL 3.5 Ratio 07/04/2018 %Hba1C Uwc169 % HbA1c 30379- 6 8.0 % 03/06/2018 %Hba1C Xjb857 Gluc Ave 183 mg/dL 03/06/2018 Lipid Ord30 [...] 29.1 % 03/04/2018 Cbc With Differential Ord2 [place]% 12.2 % 03/04/2018 Cbc With Differential Ord2 [...] 1.93 K/ul 03/04/2018 Cbc With Differential Ord2 [place] ABS# 0.8 K/ul 03/04/2018 Cbc With Differential Ord2 Eos ABS# 0.2 K/ul 03/04/2018 Cbc With Differential Ord2 Baso ABS# 0.1 K/ul 03/04/2018 Comp Metabolic Ghm705 NA 139 mEq/L 03/04/2018 Comp Metabolic Abx606 K 4.5 mEq/L 03/04/2018 Comp Metabolic Ipq891 CL 102 mEq/L 03/04/2018 Comp Metabolic Jvf269 CO2 28.0 mEq/L 03/04/2018 Comp Metabolic Aea600 ANION GAP 14 03/04/2018 Comp Metabolic Xwm691 GLUCOSE 201 mg/dL 03/04/2018 Comp Metabolic Pbd509 Creat 1.0 mg/dL 03/04/2018 Comp Metabolic Ksc831 eGFR 78 ml/min/1.73m2 03/04/2018 Comp Metabolic Ybq548 BUN 18 mg/dL 03/04/2018 Comp Metabolic Skd864 B/C Ratio 18.0 Ratio 03/04/2018 Comp Metabolic Cck905 CALCIUM 9.4 mg/dL 03/04/2018 Comp Metabolic Qhs524 ALK PHOS 40 U/L 03/04/2018 Comp Metabolic Ffx321 AST(SGOT) 21 U/L 03/04/2018 Comp Metabolic Oey186 ALT(SGPT) 27 U/L 03/04/2018 Comp Metabolic Asf671 BILI T 0.6 mg/dL 03/04/2018 Comp Metabolic Cha078 ALBUMIN 4.1 g/dL 03/04/2018 Comp Metabolic Mpu048 TPRO 6.7 g/dL 03/04/2018 Comp Metabolic Bjm665 GLOB 2.7 g/dL 03/04/2018 Comp Metabolic Qyp148 A/G Ratio 1.5 Ratio 03/04/2018 Comp Metabolic Cxp903 Osmo 285 mOsmo 03/04/2018 Lipid Ord30 CHOL 171 mg/dL 11/20/2017 Lipid Ord30 HDL 52.0 mg/dl 11/20/2017 Lipid Ord30 TRIG 248 mg/dL 11/20/2017 Lipid Ord30 LDL 69 mg/dL 11/20/2017 Lipid Ord30 C/HDL 3.3 Ratio 11/20/2017 %Hba1C Snj258 % HbA1c 55983- 6 7.7 % 11/20/2017 %Hba1C Qfb454 Gluc Ave 174 mg/dL 11/20/2017 Comp Metabolic Jts791 NA 140 mEq/L 11/20/2017 Comp Metabolic Sue186 K 4.3 mEq/L 11/20/2017 Comp Metabolic Epd678 CL 103 mEq/L 11/20/2017 Comp Metabolic Bxn559 CO2 27.0 mEq/L 11/20/2017 Comp Metabolic Fkf294 ANION GAP 14 11/20/2017 Comp Metabolic Bov581 GLUCOSE 151 mg/dL 11/20/2017 Comp Metabolic Atq776 Creat 0.9 mg/dL 11/20/2017 Comp Metabolic Fev166 eGFR 87 ml/min/1.73m2 11/20/2017 Comp Metabolic Rvl216 BUN 25 mg/dL 11/20/2017 Comp Metabolic Wkb571 B/C Ratio 27.5 Ratio 11/20/2017 Comp Metabolic Yfz671 CALCIUM 9.7 mg/dL 11/20/2017 Comp Metabolic Rcg398 ALK PHOS 49 U/L 11/20/2017 Comp Metabolic Igt058 AST(SGOT) 25 U/L 11/20/2017 Comp Metabolic Kbt578 ALT(SGPT) 24 U/L 11/20/2017 Comp Metabolic Uzh104 BILI T 0.6 mg/dL 11/20/2017 Comp Metabolic Nbr138 ALBUMIN 4.2 g/dL 11/20/2017 Comp Metabolic Wcg099 TPRO 6.6 g/dL 11/20/2017 Comp Metabolic Kaa974 GLOB 2.4 g/dL 11/20/2017 Comp Metabolic Crg190 A/G Ratio 1.8 Ratio 11/20/2017 Comp Metabolic Usr662 Osmo 287 mOsmo 11/20/2017 Cbc With Differential [...] 92.6 fl 07/25/2017 Cbc With Differential Ord2 Randolph% 13.3 % 07/25/2017 Cbc With Differential Ord2 [...] 1.89 K/ul 07/25/2017 Cbc With Differential Ord2 [place] ABS# 0.9 K/ul 07/25/2017 Cbc With Differential Ord2 Eos ABS# 0.2 K/ul 07/25/2017 Cbc With Differential Ord2 Baso ABS# 0.1 K/ul 07/25/2017 Comp Metabolic Gbt775 NA 140 mEq/L 07/25/2017 Comp Metabolic Haa534 K 4.7 mEq/L 07/25/2017 Comp Metabolic Gew900 CL 102 mEq/L 07/25/2017 Comp Metabolic Ylw626 CO2 30.0 mEq/L 07/25/2017 Comp Metabolic Tjk827 ANION GAP 13 07/25/2017 Comp Metabolic Gyo463 GLUCOSE 178 mg/dL 07/25/2017 Comp Metabolic Jjo960 Creat 1.0 mg/dL 07/25/2017 Comp Metabolic Fzn939 eGFR 75 ml/min/1.73m2 07/25/2017 Comp Metabolic Bdn316 BUN 23 mg/dL 07/25/2017 Comp Metabolic Lcq110 B/C Ratio 22.3 Ratio 07/25/2017 Comp Metabolic Cej998 CALCIUM 9.7 mg/dL 07/25/2017 Comp Metabolic Nxe389 ALK PHOS 40 U/L 07/25/2017 Comp Metabolic Awg790 AST(SGOT) 22 U/L 07/25/2017 Comp Metabolic Dpo711 ALT(SGPT) 25 U/L 07/25/2017 Comp Metabolic Ywu429 BILI T 0.7 mg/dL 07/25/2017 Comp Metabolic Ufy620 ALBUMIN 4.0 g/dL 07/25/2017 Comp Metabolic Iaj709 TPRO 6.7 g/dL 07/25/2017 Comp Metabolic Bgs994 GLOB 2.7 g/dL 07/25/2017 Comp Metabolic Gzh006 A/G Ratio 1.5 Ratio 07/25/2017 Comp Metabolic Pup725 Osmo 288 mOsmo 07/25/2017 %Hba1C Acl277 % HbA1c 45558- 6 7.1 % 07/25/2017 %Hba1C Qfl234 Gluc Ave 157 mg/dL 07/25/2017 Lipid Ord30 CHOL 164 mg/dL 07/25/2017 Lipid Ord30 HDL 49.0 mg/dl 07/25/2017 Lipid Ord30 TRIG 266 mg/dL 07/25/2017 Lipid Ord30 LDL 62 mg/dL 07/25/2017 Lipid Ord30 C/HDL 3.3 Ratio 07/25/2017 Comp Metabolic Yyp524 NA 140 mEq/L 04/02/2017 Comp Metabolic Vcj701 K 4.4 mEq/L 04/02/2017 Comp Metabolic Ace749 CL 103 mEq/L 04/02/2017 Comp Metabolic Vti926 CO2 27.0 mEq/L 04/02/2017 Comp Metabolic Gdu350 ANION GAP 14 04/02/2017 Comp Metabolic Oes458 GLUCOSE 182 mg/dL 04/02/2017 Comp Metabolic Nsr218 Creat 1.1 mg/dL 04/02/2017 Comp Metabolic Omh023 eGFR 73 ml/min/1.73m2 04/02/2017 Comp Metabolic Woy081 BUN 26 mg/dL 04/02/2017 Comp Metabolic Kpo951 B/C Ratio 24.5 Ratio 04/02/2017 Comp Metabolic Qdf164 CALCIUM 9.4 mg/dL 04/02/2017 Comp Metabolic Nbz219 ALK PHOS 43 U/L 04/02/2017 Comp Metabolic Sea695 AST(SGOT) 19 U/L 04/02/2017 Comp Metabolic Bag332 ALT(SGPT) 20 U/L 04/02/2017 Comp Metabolic Wml981 BILI T 0.7 mg/dL 04/02/2017 Comp Metabolic Zbp774 ALBUMIN 4.0 g/dL 04/02/2017 Comp Metabolic Ktl459 TPRO 6.6 g/dL 04/02/2017 Comp Metabolic Vpv543 GLOB 2.6 g/dL 04/02/2017 Comp Metabolic Aww361 A/G Ratio 1.6 Ratio 04/02/2017 Comp Metabolic Xmd007 Osmo 289 mOsmo 04/02/2017 %Hba1C Gvw436 % HbA1c 78490- 6 7.9 % 04/02/2017 %Hba1C Lpk085 Gluc Ave 180 mg/dL 04/02/2017 Cbc With [...] 91.4 fl 04/02/2017 Cbc With Differential Ord2 Randolph% 11.5 % 04/02/2017 Cbc With Differential Ord2 [...] 2.21 K/ul 04/02/2017 Cbc With Differential Ord2 [place] ABS# 0.9 K/ul 04/02/2017 Cbc With Differential [...] 30.6 pg 12/04/2016 Cbc With Differential Ord2 Randolph% 10.7 % 12/04/2016 Cbc With Differential Ord2 [...] 1.76 K/ul 12/04/2016 Cbc With Differential Ord2 [place] ABS# 0.8 K/ul 12/04/2016 Cbc With Differential Ord2 Eos ABS# 0.2 K/ul 12/04/2016 Cbc With Differential Ord2 Baso ABS# 0.1 K/ul 12/04/2016 Lipid Ord30 CHOL 156 mg/dL 12/04/2016 Lipid Ord30 HDL 47.0 mg/dl 12/04/2016 Lipid Ord30 TRIG 219 mg/dL 12/04/2016 Lipid Ord30 LDL 65 mg/dL 12/04/2016 Lipid Ord30 C/HDL 3.3 Ratio 12/04/2016 Comp Metabolic Gbu450 NA 139 mEq/L 12/04/2016 Comp Metabolic Xdt457 K 4.4 mEq/L 12/04/2016 Comp Metabolic Xdp401 CL 103 mEq/L 12/04/2016 Comp Metabolic Cuq770 CO2 27.0 mEq/L 12/04/2016 Comp Metabolic Ikt515 ANION GAP 13 12/04/2016 Comp Metabolic Lne624 GLUCOSE 147 mg/dL 12/04/2016 Comp Metabolic Glr465 Creat 1.0 mg/dL 12/04/2016 Comp Metabolic Jjg861 eGFR 83 ml/min/1.73m2 12/04/2016 Comp Metabolic Oat006 BUN 20 mg/dL 12/04/2016 Comp Metabolic Hft809 B/C Ratio 21.1 Ratio 12/04/2016 Comp Metabolic Muo085 CALCIUM 9.5 mg/dL 12/04/2016 Comp Metabolic Vgw857 ALK PHOS 44 U/L 12/04/2016 Comp Metabolic Gsp215 AST(SGOT) 22 U/L 12/04/2016 Comp Metabolic Udx428 ALT(SGPT) 23 U/L 12/04/2016 Comp Metabolic Pip660 BILI T 0.8 mg/dL 12/04/2016 Comp Metabolic Ugd499 ALBUMIN 3.9 g/dL 12/04/2016 Comp Metabolic Enz693 TPRO 6.3 g/dL 12/04/2016 Comp Metabolic Tad175 GLOB 2.4 g/dL 12/04/2016 Comp Metabolic Ipc570 A/G Ratio 1.7 Ratio 12/04/2016 Comp Metabolic Tkt471 Osmo 283 mOsmo 12/04/2016 Tsh Ord6 hTSH II 3.35 uIU/mL 12/04/2016 %Hba1C Fvb802 % HbA1c 74593- 6 7.4 % 12/04/2016 %Hba1C Wlk611 Gluc Ave 166 mg/dL 12/04/2016 Comp Metabolic Wbi941 NA 138 mEq/L 08/28/2016 Comp Metabolic Ghn844 K 4.7 mEq/L 08/28/2016 Comp Metabolic Gmg926 CL 101 mEq/L 08/28/2016 Comp Metabolic Dsw624 CO2 29.0 mEq/L 08/28/2016 Comp Metabolic Ubf101 ANION GAP 13 08/28/2016 Comp Metabolic Fls021 GLUCOSE 188 mg/dL 08/28/2016 Comp Metabolic Lfw020 Creat 1.0 mg/dL 08/28/2016 Comp Metabolic Zwx769 eGFR 82 ml/min/1.73m2 08/28/2016 Comp Metabolic Dvs257 BUN 21 mg/dL 08/28/2016 Comp Metabolic Vzk189 B/C Ratio 21.9 Ratio 08/28/2016 Comp Metabolic Tkn290 CALCIUM 9.6 mg/dL 08/28/2016 Comp Metabolic Jsl070 ALK PHOS 52 U/L 08/28/2016 Comp Metabolic Wfv065 AST(SGOT) 27 U/L 08/28/2016 Comp Metabolic Cvd153 ALT(SGPT) 26 U/L 08/28/2016 Comp Metabolic Gtm422 BILI T 0.9 mg/dL 08/28/2016 Comp Metabolic Gpw890 ALBUMIN 4.2 g/dL 08/28/2016 Comp Metabolic Zey657 TPRO 6.8 g/dL 08/28/2016 Comp Metabolic Rqy124 GLOB 2.6 g/dL 08/28/2016 Comp Metabolic Evg034 A/G Ratio 1.6 Ratio 08/28/2016 Comp Metabolic Lwr514 Osmo 284 mOsmo 08/28/2016 Cbc With Differential [...] 30.9 pg 08/28/2016 Cbc With Differential Ord2 Randolph% 14.3 % 08/28/2016 Cbc With Differential Ord2 [...] 1.68 K/ul 08/28/2016 Cbc With Differential Ord2 [place] ABS# 1.1 K/ul 08/28/2016 Cbc With Differential Ord2 Eos ABS# 0.3 K/ul 08/28/2016 Cbc With Differential Ord2 Baso ABS# 0.1 K/ul 08/28/2016 %Hba1C Vrg846 % HbA1c 02661- 6 7.6 % 08/28/2016 %Hba1C Jas754 Gluc Ave 171 mg/dL 08/28/2016 Cbc With [...] 30.3 pg 05/23/2016 Cbc With Differential Ord2 Randolph% 12.0 % 05/23/2016 Cbc With Differential Ord2 [...] 1.74 K/ul 05/23/2016 Cbc With Differential Ord2 [place] ABS# 0.9 K/ul 05/23/2016 Cbc With Differential Ord2 Eos ABS# 0.2 K/ul 05/23/2016 Cbc With Differential Ord2 Baso ABS# 0.1 K/ul 05/23/2016 Tsh Ord6 hTSH II 3.24 uIU/mL 05/23/2016 %Hba1C Hhk952 % HbA1c 85048- 6 7.1 % 05/23/2016 %Hba1C Nhn945 Gluc Ave 157 mg/dL 05/23/2016 Lipid Ord30 CHOL 155 mg/dL 05/23/2016 Lipid Ord30 HDL 50.0 mg/dl 05/23/2016 Lipid Ord30 TRIG 159 mg/dL 05/23/2016 Lipid Ord30 LDL 73 mg/dL 05/23/2016 Lipid Ord30 C/HDL 3.1 Ratio 05/23/2016 Comp Metabolic Lbl532 NA 137 mEq/L 05/23/2016 Comp Metabolic Nkf297 K 4.3 mEq/L 05/23/2016 Comp Metabolic Tib593 CL 102 mEq/L 05/23/2016 Comp Metabolic Bpa975 CO2 28.0 mEq/L 05/23/2016 Comp Metabolic Aps368 ANION GAP 11 05/23/2016 Comp Metabolic Jla980 GLUCOSE 140 mg/dL 05/23/2016 Comp Metabolic Mwo171 Creat 0.9 mg/dL 05/23/2016 Comp Metabolic Lgm813 eGFR 93 ml/min/1.73m2 05/23/2016 Comp Metabolic Dci641 BUN 23 mg/dL 05/23/2016 Comp Metabolic Nlj630 B/C Ratio 26.7 Ratio 05/23/2016 Comp Metabolic Cvb894 CALCIUM 9.4 mg/dL 05/23/2016 Comp Metabolic Ukm426 ALK PHOS 43 U/L 05/23/2016 Comp Metabolic Ypb871 AST(SGOT) 23 U/L 05/23/2016 Comp Metabolic Gba831 ALT(SGPT) 23 U/L 05/23/2016 Comp Metabolic Tla954 BILI T 0.7 mg/dL 05/23/2016 Comp Metabolic Fow928 ALBUMIN 4.2 g/dL 05/23/2016 Comp Metabolic Zws812 TPRO 6.8 g/dL 05/23/2016 Comp Metabolic Xsa653 GLOB 2.6 g/dL 05/23/2016 Comp Metabolic Iyt523 A/G Ratio 1.6 Ratio 05/23/2016 Comp Metabolic Dtn159 Osmo 280 mOsmo 05/23/2016 Cbc With Differential [...] 29.9 pg 01/24/2016 Cbc With Differential Ord2 Randolph% 11.1 % 01/24/2016 Cbc With Differential Ord2 [...] 1.92 K/ul 01/24/2016 Cbc With Differential Ord2 [place] ABS# 0.8 K/ul 01/24/2016 Cbc With Differential Ord2 Eos ABS# 0.3 K/ul 01/24/2016 Cbc With Differential Ord2 Baso ABS# 0.1 K/ul 01/24/2016 Cbc With Differential Ord2 New Analyzer Notice Please note new ref ranges starting 09-21-2015 due to implemntation of new five part differential hematolgy analyzer. 01/24/2016 Comp Metabolic Mzu871 NA 139 mEq/L 01/24/2016 Comp Metabolic Kfy960 K 4.1 mEq/L 01/24/2016 Comp Metabolic Isn656 CL 102 mEq/L 01/24/2016 Comp Metabolic Ljk428 CO2 29.0 mEq/L 01/24/2016 Comp Metabolic Jih587 ANION GAP 12 01/24/2016 Comp Metabolic Ejp719 GLUCOSE 140 mg/dL 01/24/2016 Comp Metabolic Idh146 Creat 0.9 mg/dL 01/24/2016 Comp Metabolic Zia902 eGFR 87 ml/min/1.73m2 01/24/2016 Comp Metabolic Ctz432 BUN 20 mg/dL 01/24/2016 Comp Metabolic Ulx965 B/C Ratio 22.0 Ratio 01/24/2016 Comp Metabolic Ffj412 CALCIUM 9.3 mg/dL 01/24/2016 Comp Metabolic Eji933 ALK PHOS 46 U/L 01/24/2016 Comp Metabolic Ieg878 AST(SGOT) 23 U/L 01/24/2016 Comp Metabolic Ypv787 ALT(SGPT) 22 U/L 01/24/2016 Comp Metabolic Xoq001 BILI T 0.7 mg/dL 01/24/2016 Comp Metabolic Paq626 ALBUMIN 4.1 g/dL 01/24/2016 Comp Metabolic Zdo989 TPRO 6.7 g/dL 01/24/2016 Comp Metabolic Mgs755 GLOB 2.6 g/dL 01/24/2016 Comp Metabolic Ram583 A/G Ratio 1.6 Ratio 01/24/2016 Comp Metabolic Jwk063 Osmo 282 mOsmo 01/24/2016 %Hba1C Woy164 % HbA1c 19469- 6 6.8 % 01/24/2016 %Hba1C Pfg439 Gluc Ave 148 mg/dL 01/24/2016 Tsh Ord6 hTSH II 3.45 uIU/mL 01/24/2016 Lipid Ord30 CHOL 137 mg/dL 01/24/2016 Lipid Ord30 HDL 47.0 mg/dl 01/24/2016 Lipid Ord30 TRIG 161 mg/dL 01/24/2016 Lipid Ord30 LDL 58 mg/dL 01/24/2016 Lipid Ord30 C/HDL 2.9 Ratio 01/24/2016 Tsh Ord6 hTSH II 3.71 uIU/mL 10/25/2015 %Hba1C Vwg977 % HbA1c 42512- 6 7.1 % 10/25/2015 %Hba1C Dxx716 Gluc Ave 157 mg/dL 10/25/2015 Cbc With [...] 27.8 % 10/25/2015 Cbc With Differential Ord2 Randolph% 12.4 % 10/25/2015 Cbc With Differential Ord2 [...] 1.69 K/ul 10/25/2015 Cbc With Differential Ord2 [place] ABS# 0.8 K/ul 10/25/2015 Cbc With Differential [...] Ord30 C/HDL 3.2 Ratio 10/25/2015 Comp Metabolic Eqr504 NA 136 mEq/L 10/25/2015 Comp Metabolic Bdz837 K 4.0 mEq/L 10/25/2015 Comp Metabolic Gyg711 CL 102 mEq/L 10/25/2015 Comp Metabolic Utn449 CO2 26.0 mEq/L 10/25/2015 Comp Metabolic Fna691 ANION GAP 12 10/25/2015 Comp Metabolic Rdu486 GLUCOSE 119 mg/dL 10/25/2015 Comp Metabolic Yiz706 Creat 1.1 mg/dL 10/25/2015 Comp Metabolic Spm581 eGFR 69 ml/min/1.73m2 10/25/2015 Comp Metabolic Ipy607 BUN 21 mg/dL 10/25/2015 Comp Metabolic Tdj389 B/C Ratio 18.8 Ratio 10/25/2015 Comp Metabolic Zny792 CALCIUM 9.5 mg/dL 10/25/2015 Comp Metabolic Ndn151 ALK PHOS 49 U/L 10/25/2015 Comp Metabolic Ljt790 AST(SGOT) 29 U/L 10/25/2015 Comp Metabolic Nsw459 ALT(SGPT) 28 U/L 10/25/2015 Comp Metabolic Dpa688 BILI T 0.7 mg/dL 10/25/2015 Comp Metabolic Zew840 ALBUMIN 4.2 g/dL 10/25/2015 Comp Metabolic Zbt892 TPRO 6.7 g/dL 10/25/2015 Comp Metabolic Jij656 GLOB 2.5 g/dL 10/25/2015 Comp Metabolic Zho382 A/G Ratio 1.7 Ratio 10/25/2015 Comp Metabolic Ogg323 Osmo 276 mOsmo 10/25/2015 Sensitivity Report #1 [id number] ORGANISM ESCHERICHIA COLI 10/06/2015 Sensitivity Report #1 [id number] ORG NUMBER 1 10/06/2015 Sensitivity Report #1 [id number] AMIKACIN S 10/06/2015 Sensitivity Report #1 [id number] AMPICILLIN/SULBACTAM S 10/06/2015 Sensitivity Report #1 [id number] AMOXICILLIN/CLAV S 10/06/2015 Sensitivity Report #1 [id number] CEFEPIME S 10/06/2015 Sensitivity Report #1 [id number] CEFOTAXIME S 10/06/2015 Sensitivity Report #1 [id number] AMPICILLIN S 10/06/2015 Sensitivity Report #1 [id number] CEFTAZIDIME S 10/06/2015 Sensitivity Report #1 [id number] CEFAZOLIN S 10/06/2015 Sensitivity Report #1 [id number] CEFTRIAXONE S 10/06/2015 Sensitivity Report #1 [id number] CIPROFLOXACIN S 10/06/2015 Sensitivity Report #1 [id number] GENTAMICIN S 10/06/2015 Sensitivity Report #1 [id number] LEVOFLOXACIN S 10/06/2015 Sensitivity Report #1 [id number] CEFUROXIME S 10/06/2015 Sensitivity Report #1 [id number] MEROPENEM S 10/06/2015 Sensitivity Report #1 [id number] TETRACYCLINE S 10/06/2015 Sensitivity Report #1 [id number] ERTAPENEM S 10/06/2015 Sensitivity Report #1 [id number] TOBRAMYCIN S 10/06/2015 Sensitivity Report #1 [id number] TRIMETH/SULFA S 10/06/2015 Sensitivity Report #1 [id number] IMIPENEM S 10/06/2015 Sensitivity Report #1 [id number] NITROFURANTOIN S 10/06/2015 Sensitivity Report #1 [id number] PIPERACILLIN/TAZO S 10/06/2015 Culture Urine [id number] URINE CULTURE SEE NOTES 10/06/2015 Culture Urine [id number] SOURCE: URINE 10/06/2015 Culture Urine [id number] STATUS: FINAL 10/06/2015 Culture Urine [id number] DATE PLATED: 10/03/2015 10/06/2015 Culture Urine [id number] PRELIMINARY: 10/06/2015 Culture Urine [id number] CULTURE REPORT: 10/06/2015 Urine Culture Ucult Complete >100,000 col/ml aerobic growth sent to ref lab 10/04/2015 Comp Metabolic Gjc674 NA 133 mEq/L 07/19/2015 Comp Metabolic Nbl051 K 4.2 mEq/L 07/19/2015 Comp Metabolic Krn221 CL 101 mEq/L 07/19/2015 Comp Metabolic Ijo710 CO2 25.0 mEq/L 07/19/2015 Comp Metabolic Poa748 ANION GAP 11 07/19/2015 Comp Metabolic Teu395 GLUCOSE 293 mg/dL 07/19/2015 Comp Metabolic Iyr248 Creat 1.0 mg/dL 07/19/2015 Comp Metabolic Bbk689 eGFR 81 ml/min/1.73m2 07/19/2015 Comp Metabolic Vsf926 BUN 19 mg/dL 07/19/2015 Comp Metabolic Kdz171 B/C Ratio 19.6 Ratio 07/19/2015 Comp Metabolic Eup496 CALCIUM 9.4 mg/dL 07/19/2015 Comp Metabolic Jyd420 ALK PHOS 61 U/L 07/19/2015 Comp Metabolic Txe174 AST(SGOT) 32 U/L 07/19/2015 Comp Metabolic Aks555 ALT(SGPT) 41 U/L 07/19/2015 Comp Metabolic Smh664 BILI T 0.7 mg/dL 07/19/2015 Comp Metabolic Rvs676 ALBUMIN 4.1 g/dL 07/19/2015 Comp Metabolic Llt964 TPRO 6.7 g/dL 07/19/2015 Comp Metabolic Soj135 GLOB 2.6 g/dL 07/19/2015 Comp Metabolic Pjr017 A/G Ratio 1.6 Ratio 07/19/2015 Comp Metabolic Une942 Osmo 279 mOsmo 07/19/2015 %Hba1C Zoj442 % HbA1c 59037- 6 9.2 % 07/19/2015 %Hba1C Xpi918 Gluc Ave 217 mg/dL 07/19/2015 Cbc With [...] Ord6 hTSH II 2.72 uIU/mL 04/19/2015 %Hba1C Rww669 % HbA1c 48183- 6 8.6 % 04/19/2015 %Hba1C Rpk277 Gluc Ave 200 mg/dL 04/19/2015 Comp Metabolic Xca749 NA 139 mEq/L 04/19/2015 Comp Metabolic Gin987 K 4.2 mEq/L 04/19/2015 Comp Metabolic Awk768 CL 106 mEq/L 04/19/2015 Comp Metabolic Jmo525 CO2 27.0 mEq/L 04/19/2015 Comp Metabolic Adw513 ANION GAP 10 04/19/2015 Comp Metabolic Efu678 GLUCOSE 157 mg/dL 04/19/2015 Comp Metabolic Xle597 Creat 0.9 mg/dL 04/19/2015 Comp Metabolic Rvi996 eGFR 84 ml/min/1.73m2 04/19/2015 Comp Metabolic Ugs734 BUN 14 mg/dL 04/19/2015 Comp Metabolic Iwb216 B/C Ratio 14.9 Ratio 04/19/2015 Comp Metabolic Eqo493 CALCIUM 9.5 mg/dL 04/19/2015 Comp Metabolic Nfd283 ALK PHOS 51 U/L 04/19/2015 Comp Metabolic Lfm501 AST(SGOT) 28 U/L 04/19/2015 Comp Metabolic Cbe829 ALT(SGPT) 29 U/L 04/19/2015 Comp Metabolic Dbx152 BILI T 0.6 mg/dL 04/19/2015 Comp Metabolic Jme685 ALBUMIN 4.1 g/dL 04/19/2015 Comp Metabolic Plr827 TPRO 6.4 g/dL 04/19/2015 Comp Metabolic Wut063 GLOB 2.3 g/dL 04/19/2015 Comp Metabolic Wyx215 A/G Ratio 1.8 Ratio 04/19/2015 Comp Metabolic Idf951 Osmo 281 mOsmo 04/19/2015 Lipid Ord30 CHOL 136 mg/dL 04/19/2015 Lipid Ord30 HDL 42.0 mg/dl 04/19/2015 Lipid Ord30 TRIG 226 mg/dL 04/19/2015 Lipid Ord30 LDL 49 mg/dL 04/19/2015 Lipid Ord30 C/HDL 3.2 Ratio 04/19/2015 Review of Systems System Result Effective Dates Constitutional No anorexia 07/07/2018 Constitutional No night [...] rounded 04/19/2014 None Full Exam - General 1995 Abdomen abdominal exam Contour: protuberant 04/19/2014 None [...] rounded 10/14/2013 None Full Exam - General 1995 Abdomen abdominal exam Contour: protuberant 10/14/2013 None [...] time 12/03/2012 None Full Exam - General 1995 Psychiatric mood and affect Overall: normal mood and affect 12/03/2012 None Full Exam - General 1995 Constitutional general appearance Overall: well developed 12/03/2012 None Full Exam - General 1995 Constitutional general appearance Overall: in no acute distress 12/03/2012 None Full Exam - General 1995 Constitutional general appearance Overall: well nourished 12/03/2012 None Full Exam - General 1994 Eyes pupils and irises Overall: pupils equal, round, reactive to light and accomodation 12/03/2012 None Full Exam - General 1995 Respiratory [...] nourished 09/29/2012 None Full Exam - General 1995 Psychiatric orientation/consciousness Overall: oriented to person, place and time 09/29/2012 None Full Exam - General 1995 Psychiatric [...] developed 04/09/2012 None Full Exam - General 1995 Constitutional general appearance Overall: in no acute distress 04/09/2012 None Full Exam - General 1995 Constitutional general appearance Overall: well nourished 04/09/2012 [...] hypopigmentation 12/03/2011 None Full Exam - General 1995 Integument inspection of skin Consistency: thick 12/03/2011 [...] VACC NO PRSV 3 YRS+ IM CPT-4: 03139 05/21/2018 IIV4 VACC NO PRSV 3 YRS+ IM CPT-4: 12436 05/21/2018 ADMIN INFLUENZA VIRUS VAC CPT-4: G0008 05/21/2018 ADMIN PNEUMOCOCCAL VACCINE SNOMED CT: [id number] CPT-4: G0009 05/21/2018 FLU VAC NO PRSV 4 DONNA 3 YRS+ CPT-4: 63496 05/21/2018 PPPS, SUBSEQ VISIT CPT- 4: G0439 12/24/2017 TRIAMCINOLONE ACET INJ NOS CPT-4: J3301 12/24/2017 DRAIN/INJECT JOINT/BURSA CPT-4: 40201 12/24/2017 REMOVAL OF SKIN TAGS <W/15 CPT-4: 46095 07/02/2017 ADMIN INFLUENZA VIRUS VAC CPT-4: G0008 06/28/2017 FLU VAC NO PRSV 4 DONNA 3 YRS+ CPT-4: 88995 06/28/2017 TRIAMCINOLONE ACET INJ NOS CPT-4: J3301 06/04/2017 PPPS, SUBSEQ VISIT CPT- 4: G0439 12/13/2016 PNEUMOCOCCAL VACC [address]: [id number] CPT-4: 40745 12/13/2016 ADMIN PNEUMOCOCCAL VACCINE SNOMED CT: 92586483 CPT-4: G0009 12/13/2016 DRAIN/INJECT JOINT/BURSA CPT-4: 73594 08/30/2016 TRIAMCINOLONE ACET INJ NOS CPT-4: J3301 08/30/2016 URINALYSIS NONAUTO W/O SCOPE CPT-4: 75666 07/13/2016 INJ TRIGGER POINT 1/2 MUSCL CPT-4: 58114 06/21/2016 ADMIN INFLUENZA VIRUS VAC CPT-4: G0008 05/24/2016 FLU VACC PRSV FREE INC ANTIG Formatting Model/CDA Sections, Assigned to/Judy Pierre CPT-4: [id number] 05/24/2016 URINALYSIS NONAUTO W/O SCOPE CPT-4: 88683 10/03/2015 ADMIN INFLUENZA VIRUS VAC CPT-4: G0008 07/20/2015 IMMUNIZATION ADMIN CPT- 4: 36751 07/20/2015 FLU VACC PRSV FREE INC ANTIG Formatting Model/CDA Sections, Assigned to/Judy Pierre CPT-4: [id number] 07/20/2015 URINALYSIS NONAUTO W/O SCOPE CPT-4: 21625 05/18/2015 URINALYSIS NONAUTO W/O SCOPE CPT-4: 03840 05/09/2015 ADMIN INFLUENZA VIRUS VAC CPT-4: G0008 06/03/2014 FLU VAC NO PRSV 4 DONNA 3 YRS+ Assigned to/Judy Pierre CPT-4: [id number] 06/03/2014 TRIAMCINOLONE ACET INJ NOS CPT-4: J3301 05/04/2014 ADMIN INFLUENZA VIRUS VAC CPT-4: G0008 07/01/2013 FLULAVAL VACC, 3 YRS & >, IM CPT-4: Q2036 07/01/2013 PRESCRIP TRANSMIT VIA ERX SY CPT-4: G8553 03/04/2013 PRESCRIP TRANSMIT VIA ERX SY CPT-4: G8553 02/04/2013 DRAIN/INJECT JOINT/BURSA CPT-4: 20777 09/25/2012 ADMIN INFLUENZA VIRUS VAC CPT-4: G0008 06/04/2012 FLULAVAL VACC, 3 YRS & >, IM CPT-4: Q2036 06/04/2012 ADMIN PNEUMOCOCCAL VACCINE SNOMED CT: [id number] CPT-4: G0009 06/04/2012 PRESCRIP TRANSMIT VIA ERX SY CPT-4: G8553 04/09/2012 ROCEPHIN, PER 250 MG CPT- 4: J0696 03/04/2012 PRESCRIP TRANSMIT VIA ERX SY CPT-4: G8553 03/04/2012 DESTRUCT PREMALG LESION CPT-4: 53561 07/24/2011 DESTRUCT PREMALG LES 2-14 CPT-4: 16387 07/24/2011 DESTRUCT PREMALG LES 2-14 CPT-4: 99418 07/18/2011 DESTRUCT PREMALG LESION CPT-4: 94891 07/18/2011 Vital Signs Date Vital 07/07/2018 Blood Pressure 1: 140/76 Code: 8480-6 BMI: 45.2 Code: 63003-4 Heart Rate 1: 66 bpm Height: 5'6" SpO2: 98% Weight: 280 lbs 05/21/2018 Blood Pressure 1: 132/74 Code: 8480-6 Blood Pressure 1: 164/78 Code: 8480-6 BMI: 44.5 Code: 67646-8 Heart Rate 1: 63 bpm Height: 5'6" SpO2: 96% Weight: 276 lbs 03/06/2018 Blood Pressure 1: 140/80 Code: 8480-6 BMI: 45.6 Code: 74358-7 Heart Rate 1: 94 bpm Height: 5'6" SpO2: 96% Weight: 282 lbs 4 oz 12/24/2017 Blood Pressure 1: 148/72 Code: 8480-6 BMI: 44.7 Code: 62687-2 Heart Rate 1: 70 bpm Height: 5'6" SpO2: 95% Waist Measure (cm): 132 cm Weight: 277 lbs 11/21/2017 Blood Pressure 1: 134/76 Code: 8480-6 BMI: 44.4 Code: 38461-4 Heart Rate 1: 63 bpm Height: 5'6" SpO2: 97% Weight: 275 lbs 07/29/2017 Blood Pressure 1: 14876 Code: 8480-6 BMI: 43.7 Code: 41072-0 Heart Rate 1: 75 bpm Height: 5'6" SpO2: 97% Weight: 275 lbs 07/02/2017 Blood Pressure 1: 148/78 Code: 8480-6 BMI: 43.4 Code: 94622-8 Heart Rate 1: 55 bpm Height: 5'6" SpO2: 97% Weight: 273 lbs 06/04/2017 Blood Pressure 1: 132/58 Code: 8480-6 BMI: 43.1 Code: 00009-4 Heart Rate 1: 64 bpm Height: 5'6" SpO2: 96% Weight: 271 lbs 04/03/2017 Blood Pressure 1: 124/70 Code: 8480-6 BMI: 44.2 Code: 87862-0 Heart Rate 1: 70 bpm Height: 5'6" Height: 5'6" SpO2: 95% Weight: 278 lbs 12/13/2016 Blood Pressure 1: 150/78 Code: 8480-6 BMI: 44.2 Code: 71899-8 Heart Rate 1: 67 bpm Height: 5'6" SpO2: 97% Weight: 278 lbs 12/05/2016 Blood Pressure 1: 122/80 Code: 8480-6 Blood Pressure 1: 126/90 Code: 8480-6 BMI: 44.2 Code: 32659-3 Heart Rate 1: 70 bpm Height: 5'6" SpO2: 97% Weight: 278 lbs 08/30/2016 Blood Pressure 1: 134/78 Code: 8480-6 Blood Pressure 1: 134/70 Code: 8480-6 BMI: 43.9 Code: 71127-3 Heart Rate 1: 62 bpm Height: 5'6" SpO2: 98% Weight: 276 lbs 07/13/2016 Blood Pressure 1: 140/68 Code: 8480-6 BMI: 43.2 Code: 64850-9 Heart Rate 1: 59 bpm Height: 5'6" SpO2: 96% Weight: 272 lbs 06/21/2016 Blood Pressure 1: 140/70 Code: 8480-6 BMI: 43.2 Code: 06607-1 Heart Rate 1: 70 bpm Height: 5'6" SpO2: 94% Weight: 272 lbs 05/24/2016 Blood Pressure 1: 138/72 Code: 8480-6 Blood Pressure 1: 138/70 Code: 8480-6 BMI: 43.2 Code: 12392-4 Heart Rate 1: 65 bpm Height: 5'6" SpO2: 97% Weight: 272 lbs 01/24/2016 Blood Pressure 1: 122/62 Code: 8480-6 BMI: 43.1 Code: 95244-2 Heart Rate 1: 61 bpm Height: 5'6" SpO2: 97% Weight: 271 lbs 10/27/2015 Blood Pressure 1: 122/64 Code: 8480-6 BMI: 42.4 Code: 82021-8 Heart Rate 1: 58 bpm Height: 5'6" SpO2: 97% Weight: 267 lbs 09/21/2015 Blood Pressure 1: 128/70 Code: 8480-6 BMI: 43.2 Code: 86272-6 Heart Rate 1: 65 bpm Height: 5'6" SpO2: 98% Weight: 272 lbs 08/17/2015 Blood Pressure 1: 120/64 Code: 8480-6 BMI: 44.8 Code: 79787-6 Heart Rate 1: 57 bpm Height: 5'6" SpO2: 97% Weight: 282 lbs 07/20/2015 Blood Pressure 1: 144/70 Code: 8480-6 BMI: 45.3 Code: 53184-5 Heart Rate 1: 67 bpm Height: 5'6" SpO2: 95% Weight: 285 lbs 05/09/2015 Blood Pressure 1: 180/60 Code: 8480-6 Blood Pressure 2: 140/80 Code: 8480-6 04/20/2015 Blood Pressure 1: 138/64 Code: 8480-6 BMI: 45.6 Code: 04472-8 Heart Rate 1: 60 bpm Height: 5'6" SpO2: 98% Weight: 287 lbs 02/28/2015 Blood Pressure 1: 142/78 Code: 8480-6 BMI: 45.8 Code: 62204-8 Heart Rate 1: 68 bpm Height: 5'6" Weight: 288 lbs 02/14/2015 Blood Pressure 1: 142/78 Code: 8480-6 BMI: 45.3 Code: 19704-6 Heart Rate 1: 88 bpm Height: 5'6" Weight: 285 lbs 11/11/2014 Blood Pressure 1: 152/72 Code: 8480-6 Heart Rate 1: 64 bpm Weight: 282 lbs 10/04/2014 Blood Pressure 1: 140/72 Code: 8480-6 BMI: 45.6 Code: 56947-6 Heart Rate 1: 76 bpm Height: 5'6" Weight: 287 lbs 08/02/2014 Blood Pressure 1: 132/62 Code: 8480-6 BMI: 45.6 Code: 00770-1 Heart Rate 1: 64 bpm Height: 5'6" Weight: 287 lbs 06/15/2014 Blood Pressure 1: 142/62 Code: 8480-6 BMI: 44.7 Code: 49864-3 Heart Rate 1: 68 bpm Height: 5'6" SpO2: 97% Weight: 281 lbs 05/04/2014 Blood Pressure 1: 140/78 Code: 8480-6 BMI: 45.0 Code: 97888-2 Heart Rate 1: 60 bpm Height: 5'6" SpO2: 98% Weight: 283 lbs 04/19/2014 Blood Pressure 1: 130/62 Code: 8480-6 BMI: 44.7 Code: 52242-9 Heart Rate 1: 56 bpm Height: 5'6" Weight: 281 lbs 02/08/2014 Blood Pressure 1: 118/58 Code: 8480-6 BMI: 45.3 Code: 88786-6 Heart Rate 1: 60 bpm Height: 5'6" Weight: 285 lbs 01/13/2014 Blood Pressure 1: 112/52 Code: 8480-6 BMI: 44.2 Code: 36675-1 Heart Rate 1: 60 bpm Height: 5'6" Weight: 278 lbs 10/14/2013 Blood Pressure 1: 132/70 Code: 8480-6 BMI: 43.1 Code: 75396-0 Heart Rate 1: 60 bpm Height: 5'6" Weight: 271 lbs 07/01/2013 Blood Pressure 1: 158/76 Code: 8480-6 Heart Rate 1: 52 bpm Weight: 263 lbs 05/13/2013 Weight: 268 lbs 04/15/2013 Weight: 272 lbs 03/04/2013 Blood Pressure 1: 146/68 Code: 8480-6 BMI: 45.6 Code: 04923-0 Heart Rate 1: 68 bpm Height: 5'6" Weight: 287 lbs 02/04/2013 Blood Pressure 1: 140/68 Code: 8480-6 BMI: 46.1 Code: 90589-8 Heart Rate 1: 64 bpm Height: 5'6" Weight: 290 lbs 12/03/2012 Blood Pressure 1: 124/62 Code: 8480-6 BMI: 44.8 Code: 92244-8 Heart Rate 1: 64 bpm Height: 5'6" [...] 1: 146/76 Code: 8480-6 BMI: 44.7 Code: 57127-2 Heart Rate 1: 60 bpm Height: 5'6" Weight: 281 lbs 06/25/2012 Blood Pressure 1: 128/76 Code: 8480-6 BMI: 43.7 Code: 79376-9 Heart Rate 1: 72 bpm Height: 5'6" Weight: 275 lbs 06/03/2012 Blood Pressure 1: 136/62 Code: 8480-6 BMI: 43.2 Code: 11861-4 Heart Rate 1: 72 bpm Height: 5'6" Respiratory Rate: 20 bpm Weight: 272 lbs 04/24/2012 Blood Pressure 1: 116/60 Code: 8480-6 BMI: 42.3 Code: 92506-1 Heart Rate 1: 68 bpm Height: 5'6" Respiratory Rate: 16 bpm Weight: 266 lbs 04/09/2012 Blood Pressure 1: 150/82 Code: 8480-6 Heart Rate 1: 72 bpm Weight: 03/04/2012 Blood Pressure 1: 124/70 Code: 8480-6 Heart Rate 1: 72 bpm Respiratory Rate: 16 bpm Weight: 277 lbs 12/03/2011 Blood Pressure 1: 120/60 Code: 8480-6 BMI: 44.8 Code: 87023-4 Heart Rate 1: 68 bpm Height: 5'6" Respiratory Rate: 16 bpm Weight: 282 lbs 10/31/2011 Blood Pressure 1: 120/60 Code: 8480-6 BMI: 44.8 Code: 67077-8 Heart Rate 1: 74 bpm Height: 5'6" Respiratory Rate: 16 bpm Weight: 282 lbs 08/29/2011 Blood Pressure 1: 152/76 Code: 8480-6 BMI: 44.5 Code: 16651-9 Heart Rate 1: 66 bpm Height: 5'6" Respiratory Rate: 16 bpm Weight: 280 lbs 07/24/2011 Blood Pressure 1: 142/80 Code: 8480-6 BMI: 44.8 Code: 60657-5 Heart Rate 1: 66 bpm Height: 5'6" Respiratory Rate: 16 bpm Weight: 282 lbs 07/18/2011 Blood Pressure 1: 136/60 Code: 8480-6 BMI: 44.5 Code: 15971-1 Heart Rate 1: 72 bpm Height: 5'6" Respiratory Rate: 16 bpm Weight: 280 lbs Functional Status No Functional Status data History of Present Illness Symptom Name Status Result Effective Date Notes diabetes mellitus Onset of Symptom onset as [...] food / high fat foods per day: 12/13/2016 None Annual Medicare Wellness [...] when he could not remember what the product support technician was talking about at [facility] - pt states that he has [...] Present Encounters Encounter Performer Location Codes Date ([id number]) 21919 EST. PATIENT, LEVEL IV Diagnosis: Type 2 diabetes mellitus with hyperglycemia[ICD10: E11.65] Diagnosis: Essential (primary) hypertension[ICD10: I10] Diagnosis: Low back pain[ICD10: M54.5] Maria Victoria Harrell MD, [facility] CPT-4: 68490 07/07/2018 ([id number]) 66034 EST. 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 CPT-4: 26338 03/06/2018 ([id number]) 94576 EST. PATIENT, LEVEL IV Diagnosis: Type 2 diabetes mellitus with hyperglycemia[ICD10: E11.65] Diagnosis: Essential (primary) hypertension[ICD10: I10] Diagnosis: Arthralgia of bilateral temporomandibular joint[ICD10: M26.623] Maria Victoria Harrell MD, [facility] CPT-4: 79621 11/21/2017 ([id number]) 80086 EST. PATIENT, LEVEL IV Diagnosis: Type 2 diabetes mellitus without complications[ICD10: E11.9] Diagnosis: Essential (primary) hypertension[ICD10: I10] Diagnosis: Mixed hyperlipidemia[ICD10: E78.2] Maria Victoria Harrell MD, [facility] CPT- 4: 94532 07/29/2017 ([id number]) 08929 EST. PATIENT, LEVEL III Diagnosis: Lumbago with sciatica, right side[ICD10: M54.41] Sunitha Harrell MD, [facility] CPT-4: 52265 06/04/2017 ([id number]) 08347 EST. 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 CPT-4: 73918 04/03/2017 ([id number]) 66384 EST. PATIENT, LEVEL IV Diagnosis: Essential (primary) hypertension[ICD10: I10] Diagnosis: Type 2 diabetes mellitus without complications[ICD10: E11.9] Maria Victoria Harrell MD, [facility] CPT-4: 52635 12/05/2016 [id number]) 42694 EST. PATIENT, LEVEL IV Diagnosis: Essential (primary) hypertension[ICD10: I10] Diagnosis: Type 2 diabetes mellitus with hyperglycemia[ICD10: E11.65] Diagnosis: Morbid (severe) obesity due to excess calories[ICD10: E66.01] Diagnosis: Essential tremor[ICD10: G25.0] Diagnosis: Pain in right hip[ICD10: M25.551] Maria Victoria Harrell MD, [facility] CPT- 4: 83218 08/30/2016 ([id number]) 56045 EST. PATIENT, LEVEL III Diagnosis: Pain in left forearm[ICD10: M79.632] Diagnosis: Dysuria[ICD10: R30.0] Sunitha Harrell MD, [facility] CPT-4: 57859 07/13/2016 ([id number]) 07336 EST. PATIENT, LEVEL III Diagnosis: Type 2 diabetes mellitus with hyperglycemia[ICD10: E11.65] Diagnosis: Essential tremor[ICD10: G25.0] Diagnosis: Encounter for immunization[ICD10: Z23] Diagnosis: Essential (primary) hypertension[ICD10: I10] Maria Victoria Harrell MD, [facility] CPT-4: 19052 05/24/2016 ([id number]) 07363 EST. PATIENT, LEVEL IV Diagnosis: Type 2 diabetes mellitus with hyperglycemia[ICD10: E11.65] Diagnosis: Essential (primary) hypertension[ICD10: I10] Diagnosis: Dorsalgia, unspecified[ICD10: M54.9] Maria Victoria Harrell MD, [facility] CPT- 4: 99233 01/24/2016 ([id number]) 88028 EST. PATIENT, LEVEL IV Diagnosis: Type 2 diabetes mellitus with hyperglycemia[ICD10: E11.65] Diagnosis: Essential (primary) hypertension[ICD10: I10] Diagnosis: Dorsalgia, unspecified[ICD10: M54.9] Maria Victoria Harrell MD, [facility] CPT- 4: 71106 10/27/2015 ([id number]) 37928 EST. PATIENT, LEVEL III Diagnosis: Type 2 diabetes mellitus with hyperglycemia[ICD10: E11.65] Maria Victoria Harrell MD, [facility] CPT-4: 00288 09/21/2015 ([id number]) 52726 EST. PATIENT, LEVEL IV Diagnosis: Type 2 diabetes mellitus with hyperglycemia[ICD10: E11.65] Diagnosis: Essential (primary) hypertension[ICD10: I10] Maria Victoria Harrell MD, [facility] CPT-4: 44883 08/17/2015 ([id number]) 98314 EST. PATIENT, LEVEL IV Diagnosis: VACCIN FOR INFLUENZA[ICD10: Z23] Diagnosis: Type 2 diabetes mellitus with hyperglycemia[ICD10: E11.65] Diagnosis: Morbid (severe) obesity due to excess calories[ICD10: E66.01] Diagnosis: Dorsalgia, unspecified[ICD10: M54.9] Maria Victoria Harrell MD [facility] CPT- 4: 00300 07/20/2015 ([id number]) 63343 EST. PATIENT, LEVEL IV Diagnosis: Diabetes mellitus type 2, uncontrolled[ICD9: 250.02] Diagnosis: ESSENTIAL HYPERTENSION[ICD9: 401.9] Diagnosis: MORBID OBESITY[ICD9: 278.01] Diagnosis: Peripheral neuropathic pain[ICD9: 356.9] Diagnosis: Diabetic neuropathy[ICD9: 250.60] Maria Victoria Harrell MD [facility] CPT- 4: 56904 04/20/2015 ([id number]) Miscellaneous no charge Diagnosis: Cerumen impaction[ICD9: 380.4] Maria Victoria Harrell MD [facility] CPT-4: 59170 02/28/2015 ([id number]) 02580 EST. PATIENT, LEVEL IV Diagnosis: Diabetes mellitus type 2, uncontrolled[ICD9: 250.02] Diagnosis: ESSENTIAL HYPERTENSION[ICD9: 401.9] Maria Victoria Harrell MD [facility] CPT- 4: 87612 02/14/2015 ([id number]) 07716 EST. PATIENT, LEVEL III Diagnosis: Diabetes mellitus type 2, uncontrolled[ICD9: 250.02] Maria Victoria Harrell MD [facility] CPT-4: 09425 11/11/2014 ([id number]) 36169 EST. PATIENT, LEVEL IV Diagnosis: ESSENTIAL HYPERTENSION[ICD9: 401.9] Diagnosis: DIABETES TYPE II[ICD9: 250.00] Diagnosis: Esophageal reflux[ICD9: 530.81] Diagnosis: DYSPHAGIA NEC[ICD9: 787.29] Maria Victoria Harrell MD [facility] CPT-4: 25266 10/04/2014 ([id number]) 70867 EST. PATIENT, LEVEL IV Diagnosis: DIABETES TYPE II[ICD9: 250.00] Diagnosis: ESSENTIAL HYPERTENSION[ICD9: 401.9] Diagnosis: BPH (benign prostatic hyperplasia)[ICD9: 600.00] Maria Victoria Harrell MD [facility] CPT-4: 72643 08/02/2014 ([id number]) 87159 EST. PATIENT, LEVEL III Diagnosis: Enlarged prostate[ICD9: 600.00] Maria Victoria Harrell MD, [facility] CPT-4: 73537 06/15/2014 ([id number]) 46461 EST. PATIENT, LEVEL III Diagnosis: Right hip pain[ICD9: 719.45] Diagnosis: BACKACHE[ICD9: 724.5] Diagnosis: Sacroiliitis[ICD9: 720.2] Sunitha Harrell MD, [facility] CPT-4: 47403 05/04/2014 ([id number]) 12110 EST. PATIENT, LEVEL IV Diagnosis: DM W/O COMPLICATION TYPE II, UNCONTROLLED[ICD9: 250.02] Diagnosis: ESSENTIAL HYPERTENSION[ICD9: 401.9] Maria Victoria Harrell MD, [facility] CPT- 4: 21172 04/19/2014 ([id number]) 62203 EST. PATIENT, LEVEL IV Diagnosis: Mild cognitive impairment[ICD9: 331.83] Diagnosis: Nightmares[ICD9: 307.47] Diagnosis: Sleep apnea[ICD9: 780.57] Maria Victoria Harrell MD, [facility] CPT-4: 29860 02/08/2014 ([id number]) 47801 EST. PATIENT, LEVEL III Diagnosis: DM W/O COMPLICATION TYPE II, UNCONTROLLED[ICD9: 250.02] Maria Victoria Harrell MD [facility] CPT-4: 42026 01/13/2014 ([id number]) 22759 EST. 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 CPT-4: 95866 10/14/2013 ([id number]) 31017 EST. PATIENT, LEVEL IV Diagnosis: DIABETES TYPE II[SNOMED: 222301830] Diagnosis: ESSENTIAL HYPERTENSION[SNOMED: 33122850] Diagnosis: Flat feet[ICD9: 734] Maria Victoria Harrell MD [facility] CPT-4: 52025 07/01/2013 ([id number]) Miscellaneous no charge Diagnosis: DM W/O COMPLICATION TYPE II, UNCONTROLLED[SNOMED: 88633443] Diagnosis: MORBID OBESITY[ICD9: 278.01] Maria Victoria Harrell MD [facility] CPT-4: 18575 05/13/2013 ([id number]) Miscellaneous no charge Diagnosis: MORBID OBESITY[ICD9: 278.01] Maria Victoria Harrell MD [facility] CPT-4: 14126 04/15/2013 ([id number]) 99945 EST. PATIENT, LEVEL III Diagnosis: DM W/O COMPLICATION TYPE II, UNCONTROLLED[SNOMED: 20687888] Diagnosis: Dietary restriction[ICD9: V65.3] Diagnosis: Morbid obesity with BMI of 40.0-44.9, adult[ICD9: 278.01] Maria Victoria Harrell MD [facility] CPT-4: 08617 03/04/2013 ([id number]) 35429 EST. PATIENT, LEVEL IV Diagnosis: DM W/O COMPLICATION TYPE II, UNCONTROLLED[SNOMED: 38677180] Diagnosis: ENTHESOPATHY OF HIP[ICD9: 726.5] Diagnosis: BACKACHE[ICD9: 724.5] Maria Victoria Harrell MD [facility] CPT-4: 43537 02/04/2013 ([id number]) 27443 EST. PATIENT, LEVEL III Diagnosis: DM W/O COMPLICATION TYPE II, UNCONTROLLED[SNOMED: 06614956] Maria Victoria Harrell MD [facility] CPT-4: 36788 12/03/2012 ([id number]) 97132 EST. PATIENT, LEVEL III Diagnosis: Tinnitus[ICD9: 388.30] Diagnosis: Cerumen impaction[ICD9: 380.4] Sunitha Harrell MD, [facility] CPT-4: 76900 10/14/2012 ([id number]) 24401 EST. PATIENT, LEVEL III Diagnosis: ENTHESOPATHY OF HIP[ICD9: 726.5] Diagnosis: JOINT PAIN-PELVIS[ICD9: 719.45] Maria Victoria Harrell MD, [facility] CPT-4: 85326 09/29/2012 18147 EST. PATIENT, LEVEL II Diagnosis: Right hip pain[ICD9: 719.45] Diagnosis: Bursitis of hip, right[ICD9: 726.5] Diagnosis: DM W/O COMPLICATION TYPE II, UNCONTROLLED[SNOMED: 13263965] Sunitha Harrell MD, [facility] CPT-4: 75624 09/25/2012 ([id number]) 58524 EST. PATIENT, LEVEL III Diagnosis: DM W/O COMPLICATION TYPE II, UNCONTROLLED[SNOMED: 95275273] Maria Victoria Harrell MD [facility] CPT-4: 16447 08/27/2012 ([id number]) 78066 EST. PATIENT, LEVEL III Diagnosis: Diabetes mellitus out of control[SNOMED: 24523162] Maria Victoria Harrell MD [facility] CPT-4: 83396 06/25/2012 ([id number]) 26695 EST. PATIENT, LEVEL III Diagnosis: DM W/O COMPLICATION TYPE II, UNCONTROLLED[SNOMED: 34583325] Diagnosis: ESSENTIAL HYPERTENSION[SNOMED: 67553339] Maria Victoria Harrell MD [facility] CPT-4: 77029 06/03/2012 ([id number]) 86506 EST. PATIENT, LEVEL III Diagnosis: DM W/O COMPLICATION TYPE II, UNCONTROLLED[SNOMED: 95476915] Diagnosis: Back pain[ICD9: 724.5] Maria Victoria Harrell MD [facility] CPT-4: 99309 04/24/2012 ([id number]) 11691 EST. PATIENT, LEVEL IV Diagnosis: BACKACHE[ICD9: 724.5] Diagnosis: MORBID OBESITY[ICD9: 278.01] Diagnosis: Depression[ICD9: 311] Maria Victoria Harrell MD [facility] CPT-4: 38782 04/09/2012 ([id number]) 71336 EST. PATIENT, LEVEL IV Diagnosis: Diabetes mellitus type 2, uncontrolled[SNOMED: 09180023] Diagnosis: ESSENTIAL HYPERTENSION[SNOMED: 02771508] Maria Victoria Harrlel MD [facility] CPT-4: 78189 03/04/2012 ([id number]) 15313 EST. PATIENT, LEVEL IV Diagnosis: DM W/O COMPLICATION TYPE II, UNCONTROLLED[SNOMED: 06876797] Diagnosis: MORBID OBESITY[ICD9: 278.01] Maria Victoria Harrell MD, [facility] CPT-4: 87588 12/03/2011 ([id number]) 71446 EST. PATIENT, LEVEL IV Diagnosis: DM W/O COMPLICATION TYPE II, UNCONTROLLED[SNOMED: 80684506] Diagnosis: ESSENTIAL HYPERTENSION[SNOMED: 26466664] Diagnosis: Hyperlipidemia[ICD9: 272.4] Diagnosis: Morbid obesity[ICD9: 278.01] Maria Victoria Harrell MD, [facility] CPT-4: 96929 10/31/2011 ([id number]) 40032 EST. PATIENT, LEVEL IV Diagnosis: ESSENTIAL HYPERTENSION[SNOMED: 43449904] Diagnosis: DM W/O COMPLICATION TYPE II, UNCONTROLLED[SNOMED: 88012697] Diagnosis: MORBID OBESITY[ICD9: 278.01] Maria Victoria Harrell MD, [facility] CPT-4: 82436 08/29/2011 44854 EST. PATIENT, LEVEL IV Diagnosis: Diabetes mellitus type 2, uncontrolled[SNOMED: 08934693] Diagnosis: ESSENTIAL HYPERTENSION[SNOMED: 56320852] Diagnosis: Actinic keratosis[ICD9: 702.0] Maria Victoria Harrell MD, [facility] CPT-4: 62412 07/18/2011 Plan of Care Planned Activity Notes Codes Status Date Patient Education: Patient Medication Summary Completed 10/06/2018 Care Plan: Comp Metabolic Pending 10/06/2018 Care Plan: Cbc With Differential Pending 10/06/2018 Care Plan: %Hba1C LOINC : 32515-1 Pending 10/06/2018 Care Plan: Tsh Pending 10/06/2018 Care Plan: Lipid Pending 10/06/2018 Visit Plan: Hypertension - well controlled [...] Mai 07/07/2018 Appointment: Maria Victoria Harrell [facility] [place] (15 min) Moderate 07/07/2018 Patient [...] disease. 05/21/2018 Appointment: Maria Victoria Harrell WPtel: [address] [place], [place] [phone] (15 min) Moderate 05/21/2018 Patient Education: Patient [...] restriction. 03/06/2018 Appointment: Maria Victoria Harrell WPtel: [address] [place] [address] (15 min) Moderate 03/06/2018 Patient Education: Patient Medication Summary Completed 03/06/2018 Patient Education: Obesity Completed 03/06/2018 Patient Education: Patient Medication Summary Completed 03/03/2018 Care Plan: %Hba1C LOINC : 78484-1 Pending 03/03/2018 Visit Plan: Medicare Exam - [...] Completed 12/24/2017 App[facility]ment: [facility] [phone] [phone] [facility] - Annual Wellness Visit 12/19/2017 [...] naproxen. 11/21/2017 Appointment: Maria Victoria Har[facility]el[facility] [phone] [facility] (15 min) Moderate 11/21/2017 Patient Education: [...] medications. 07/29/2017 Appointment: Maria Victoria Har[facility] [phone] [facility] (15 min) Moderate 07/29/2017 Patient Education: Patient Medication Summary Completed 07/29/2017 Patient Education: Obesity Completed 07/29/2017 Visit Plan: Skin tag removed - pt tolerated procedure well - Wound Instructions - Pt was instructed to keep the wound clean, wash with antibacterial soap, use triple antibiotic ointment, call if redness, pustular drainage, or any other acute concerns. 07/02/2017 Appointment: Zunilda Carrillo [facility] [phone] [facility] (30 min) Complex 07/02/2017 Patient Education: Patient Medication Summary Completed 07/02/2017 Appointment: Injection 06/28/2017 Patient Education: Patient Medication Summary Completed 06/28/2017 Visit Plan: Sciatica- exercises discussed with the patient, pt to continue with antiinflammatories. Pt is to call if the symptoms do not improve or if they worsen. Kenalog injection today in the office. 06/04/2017 Appointment: [facility] Moran [facility] [phone] [phone] (30 min) Complex 06/04/2017 Patient Education: Patient [...] and copy given to patient for his ironer hand. Hypertension - well controlled - continue with current medications, continue with no added salt diet. Pt has been encouraged to exercise daily. The pt has been advised to call the office if there are any acute concerns about change in blood pressure readings at home. 04/03/2017 Appointment: Maria Victoria Harrell WPtel: [facility] (15 min) Moderate 04/03/2017 Patient Education: [...] paperwork for health care surrogate. 12/13/2016 Appointment: DeanGeoffreyie [facility] [phone] [phone] [place] [address] - Annual Wellness Visit 12/13/2016 Patient Education: Patient Medication Summary Completed 12/13/2016 Care Plan: Referral Order SNOMED-CT : [id number] Pending 12/13/2016 Visit Plan: Hypertension - well [...] 12/05/2016 Appointment: Maria Victoria Harrell [facility]Ptel[facility] [phone] [facility] (15 min) Moderate 12/05/2016 Patient Education: Patient Medication Summary Completed 12/05/2016 Patient Education: Obesity Completed 12/05/2016 Care Plan: CT ABD & PELVIS W/O CONTRAST LOINC : 23997-2 Pending 12/05/2016 Patient Education: Patient Medication Summary [...] care 08/30/2016 Appointment: Maria Victoria Harrell WPtel: [facility] (15 min) Moderate 08/30/2016 Patient Education: Patient Medication Summary Completed 08/30/2016 Patient Education: Obesity Completed 08/30/2016 Patient Education: Hypertension Completed 08/30/2016 Patient Education: Patient Medication Summary Completed 08/23/2016 Visit Plan: Left forearm pain-use voltaren gel as needed-xray forearm for further evaluation UA negative-patient instructed to increase po fluids-call if symptoms do not resolve 07/13/2016 Appointment: Sunitha Moran WPtel: [phone] (10 min) Simple 07/13/2016 Patient Education: Patient [...] disease process. 06/21/2016 Appointment: Sunitha Moran WPtel: [address] [place], [place] [phone] (30 min) Complex 06/21/2016 Patient Education: Patient Medication Summary Completed 06/21/2016 Appointment: Sunitha Moran WPtel: [address] [place], [place] [phone] (30 min) Complex 06/15/2016 Visit Plan: Hypertension [...] improve. 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 toujeo to 40 units daily increase novolin to 8units in the morning, 10 units at lunch and 8 units at supper 09/21/2015 Appointment: Maria Victoria Harrell [facility]Ptel[facility] [phone] [facility] (15 min) Moderate 09/21/2015 Patient Education: [...] 08/17/2015 Appointment: Maria Victoria Harrell [facility]Ptel[facility] [phone] [facility] (15 min) Moderate 08/17/2015 Patient Education: [...] belviq 07/20/2015 Appointment: Maria Victoria Harrell [facility]Ptel[facility] [phone] [facility] (15 min) Moderate 07/20/2015 Patient Education: [...] 04/20/2015 Appointment: Maria Victoria Harrell WPtel: [phone] [facility] (15 min) Moderate 04/20/2015 Patient Education: Patient [...] home. 02/14/2015 Appointment: Maria Victoria Harrell [facility]Ptel[facility] [phone] [facility] Follow up 02/14/2015 Patient Education: Patient [...] 11/11/2014 Appointment: Maria Victoria Harrell WPtel: [phone] [facility] Follow up 11/11/2014 Patient Education: Patient Medication Summary Completed 11/11/2014 Appointment: Maria Victoria Harrell WPtel: [phone] [facility] Follow up 11/04/2014 Visit Plan: Esophageal Reflux [...] 10/04/2014 Appointment: Maria Victoria Harrell WPtel: [phone] [facility] [place] Follow up 10/04/2014 Patient Education: Patient Medication Summary Completed 10/04/2014 Patient Education: Hypertension Completed 10/04/2014 Appointment: Maria Victoria Harrell WPtel: [address] [place], [place] [phone] Follow up 08/19/2014 Visit Plan: Diabetes Mellitus [...] avodart 08/02/2014 Appointment: Maria Victoria Harrell WPtel: [address] [place], [place] [phone] Sick 08/02/2014 Patient Education: Patient Medication Summary Completed 08/02/2014 Patient Education: Hypertension Completed 08/02/2014 Visit Plan: Enlarged prostate with decreased urine flow - recommended that the patient start on tamsulosin 0.4mg daily - will need to start him on this in about 2-3 weeks. Check PSA in 2-3 weeks. 06/15/2014 Appointment: Maria Victoria Harrell WPtel: [address] [place], [place] [phone] Follow up 06/15/2014 Patient Education: Patient Medication Summary Completed 06/15/2014 Appointment: Maria Victoria Harrell WPtel: [address] [place], [place] [id number] [place] Injection 06/03/2014 Patient Education: Patient Medication [...] - pt to see this Opthamologist in [place] - May 25. 04/19/2014 Appointment: [phone] [facility] Follow up 04/19/2014 Patient Education: Patient [...] 02/08/2014 Appointment: [facility] Victoria [facility] [phone] [facility] [place] Follow up 02/08/2014 Patient Education: [...] 01/13/2014 Appointment: Maria Victoria [facility] [phone] [facility] [place] Follow up 01/13/2014 Patient Education: [...] - recommended referral to Dr. Fine at [facility] [address] [place] [address]. 10/14/2013 Patient Education: Patient Medication Summary Completed 10/14/2013 Patient Education: Hypertension Completed 10/14/2013 Patient Education: .Amazing [employer] Diabetic meal planning guide Completed 10/14/2013 Visit [...] 07/01/2013 Appointment: Maria Victoria Harrell WPtel: [phone] [facility] Follow up 07/01/2013 Patient Education: Patient Medication Summary Completed 07/01/2013 Patient Education: Hypertension Completed 07/01/2013 Appointment: Maria Victoria Harrell WPtel: [phone] [facility] Other 05/13/2013 Patient Education: Patient Medication Summary Completed 05/13/2013 Appointment: Maria Victoria Harrell WPtel: [phone] [facility] Other 04/15/2013 Patient Education: Patient [...] 03/04/2013 Appointment: Maria Victoria Harrell WPtel: [phone] [facility] Follow up 03/04/2013 Patient Education: Patient Medication [...] body. 02/04/2013 Appointment: Maria Victoria Harrell WPtel: [address] [place], [place] [id number] Follow up 02/04/2013 Patient Education: Patient Medication [...] 12/03/2012 Appointment: Maria Victoria Harrell WPtel: [address] [place], [place] [id number] Follow up 12/03/2012 Patient Education: Patient Medication Summary Completed 12/03/2012 Visit Plan: Tinnitus-cerumen impaction-cerumen adhered to left TM-discussed using sweet oil nightly for the next week and call if symptoms have not improved. Patient verbalized understanding of plan . 10/14/2012 Appointment: Sunitha Moran WPtel: [address] [place], [place] [id number] [place] [address] Sick 10/14/2012 Patient Education: Patient Medication Summary Completed 10/14/2012 Visit Plan: Arthritis- occasionally uncontrolled symptoms- recommend pt to take antiinflammatory as directed for pain control. Use tylenol for break through pain symptoms. 09/29/2012 Appointment: Maria Victoria Harrell WPtel: [facility] Other 09/29/2012 Patient Education: Patient Medication Summary [...] blood sugars 09/25/2012 Appointment: Sunitha Moran WPtel: [phone] [facility] [place] [address] Other 09/25/2012 Patient Education: Patient Medication Summary [...] 08/27/2012 Appointment: [facility] Victoria [facility]el[facility] [phone] [facility] Follow up 08/27/2012 Patient Education: Patient [...] 06/25/2012 Appointment: Maria Victoria Har[facility]Ptel[facility] [phone] [facility] Follow up 06/25/2012 Patient Education: Patient [...] night. 06/03/2012 Appointment: Maria Victoria Harrell WPtel: [address] [facility] Follow up 06/03/2012 Patient Education: Patient [...] pain. 04/24/2012 Appointment: Maria Victoria Harrell [facility]Ptel[facility] [phone] [facility] Follow up 04/24/2012 Patient Education: Patient [...] improve. 04/09/2012 Appointment: Maria Victoria Harrell WPtel: [facility] Other 04/09/2012 Patient Education: Patient Medication Summary Completed 04/09/2012 Patient Education: .Amazing charts Exercise for Sciatica Completed 04/09/2012 Appointment: Sunitha Moran WPtel: [facility] [place] [address] Other 03/13/2012 Visit Plan: Diabetes Mellitus - [...] pain. 03/04/2012 Appointment: Maria Victoria Harrell WPtel: [facility] [address] Other 03/04/2012 Patient Education: Patient Medication [...] pains/fatigue. 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 . Diabetes Mellitus - Uncontrolled - per [...] further investigative studies planned by his current pharmacist intern. Pt is to INCREASE HIS LANTUS TO [...] and copy given to patient for his ironer hand. Hypertension - well controlled - continue with [...] units increase was made. Dr. Mai at [facility]othor[facility]. . 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 BRING IN THE GLUCOMETER [...] - recommended referral to Dr. Fine at [facility] [employer] [...]
--- OUTSIDE RECORDS SUMMARY | 2019-01-23 15:39 | XMS REPORT | CCD ---
Author Author [facility] Organization [facility] Address [address] [place] [address] Phone Care Team Providers Care [employer] Mechan[employer] Name Role Phone PP Unavailable CCM Unavailable Summary Purpose Interface Exchange Insurance Providers Payer name Policy type / Coverage type Covered constitution party ID Effective Begin Date Effective End Date WPS Medicare Part B Medicare Part B [id number] Unknown [facility] Medicare Part B [id number] Unknown Family history Nephew Diagnosis Age At [...] Unknown Retired 07/18/[address]: 61[address]3944 Never smoker 07/18/[address]: 173184581 Never drinks alcohol 07/18/2011 Has the patient [...] Codes Condition Status Onset Date Resolved Date Dorsalgia, unspecified ICD-9: 724.5 ICD-10: M54.9 Active 05/04/2014 Unknown Essential (primary) hypertension ICD-9: 401.1 ICD-10: I10 Active 12/05/2016 Unknown Type 2 diabetes mellitus with hyperglycemia ICD-9: 250.02 ICD-10: E11.65 Active 01/13/2014 Unknown Mixed hyperlipidemia ICD- 9: 272.2 ICD-10: E78.2 Active 11/18/2017 Unknown Type 2 diabetes mellitus with diabetic polyneuropathy ICD-9: 250.60 ICD-10: E11.42 Active 04/03/2017 Unknown Encounter for immunization ICD-9: V06.6 ICD-10: Z23 Active 05/21/2018 Unknown Encounter for immunization ICD-9: V04.81 ICD-10: Z23 Active 07/01/2013 Unknown Arthralgia of bilateral temporomandibular joint ICD-9: [...] ICD-9: 726.5 ICD-10: M70.61 Active 12/24/2017 Unknown Mixed hyperlipidemia ICD- 9: 272.4 ICD-10: E78.2 Active 10/31/2011 Unknown Cellulitis of left lower limb ICD-9: 682.6 ICD-10: L03.116 Active 07/02/2017 Unknown Other hypertrophic disorders of the skin ICD-9: 701.9 ICD-10: L91.8 Active 07/02/2017 Unknown Sciatica Unknown Active 06/04/2017 Unknown Lumbago with sciatica, right side ICD-9: 724.3 ICD-10: M54.41 Active 06/04/2017 Unknown Cough ICD-9: 786.2 ICD-10: R05 Active 04/03/2017 Unknown Palpitations ICD-9: 785.1 ICD-10: R00.2 Active 04/03/2017 Unknown Essential (primary) hypertension ICD-9: 401.9 ICD-10: I10 Active 04/19/2014 Unknown Morbid (severe) obesity due to excess [...] Problems Condition Codes Effective Dates Condition Status Dorsalgia, unspecified ICD-9: 724.5 ICD-10: M54.9 05/04/2014 Active Essential (primary) hypertension ICD-9: 401.1 ICD-10: I10 12/05/2016 Active Type 2 diabetes mellitus with hyperglycemia ICD-9: 250.02 ICD-10: E11.65 01/13/2014 Active Mixed hyperlipidemia ICD- 9: 272.2 ICD-10: E78.2 11/18/2017 Active Type 2 diabetes mellitus with diabetic polyneuropathy ICD-9: 250.60 ICD-10: E11.42 04/03/2017 Active Encounter for immunization ICD-9: V06.6 ICD-10: Z23 05/21/2018 Active Encounter for immunization ICD-9: V04.81 ICD-10: Z23 07/01/2013 Active Arthralgia of bilateral temporomandibular joint ICD-9: [...] hip ICD-9: 726.5 ICD-10: M70.61 12/24/2017 Active Mixed hyperlipidemia ICD- 9: 272.4 ICD-10: E78.2 10/31/2011 Active Cellulitis of left lower limb ICD-9: 682.6 ICD-10: L03.116 07/02/2017 Active Other hypertrophic disorders of the skin ICD-9: 701.9 ICD-10: L91.8 07/02/2017 Active Sciatica Unknown 06/04/2017 Active Lumbago with sciatica, right side ICD-9: 724.3 ICD-10: M54.41 06/04/2017 Active Cough ICD-9: 786.2 ICD-10: R05 04/03/2017 Active Palpitations ICD-9: 785.1 ICD-10: R00.2 04/03/2017 Active Essential (primary) hypertension ICD-9: 401.9 ICD-10: I10 04/19/2014 Active Morbid (severe) obesity due to excess [...] 02/04/2019 Active finasteride 1 mg tablet RxNorm: 357518 1 Tablet(s) PO daily 12/25/2017 12/19/2018 Active D/C dutasteride finasteride 1 mg tablet RxNorm: 704363 1 Tablet(s) PO daily 12/25/2017 12/24/2017 Inactive D/C dutasteride Novolin R Regular U-100 Insulin 100 unit/mL injection solution RxNorm: 377777 10 Unit(s) Inj QAM 12 units at lunch and 10 units at supper 11/25/2017 11/29/2017 Inactive amoxicillin 500 mg capsule RxNorm: 655524 1 Capsule(s) PO QID 11/21/2017 11/30/2017 Inactive naproxen 500 mg tablet RxNorm: 560257 1 Tablet(s) PO BID 11/21/2017 12/04/2017 Inactive Novolin R Regular U-100 Insulin 100 unit/mL injection solution RxNorm: 060330 8 10 Unit(s) Inj QAM 12 units at lunch and 10 units at supper 11/21/2017 11/24/2017 Inactive Insulin Syringe 0.3 mL 29 X 5/16" RxNorm: 1 injection SQ TID 10/01/2017 07/27/2018 Active Protonix 40 mg tablet,delayed release RxNorm: 378848 1 Tablet(s) PO daily 09/27/2017 12/20/2018 Active Touelizabeth SoloStar U-300 Insulin 300 unit/mL (1.5 mL) subcutaneous pen RxNorm: 4834666 45 Unit(s) SQ daily 09/27/2017 12/20/2018 Active 90 day supply lovastatin 20 mg tablet RxNorm: 070687 1 Tablet(s) PO QHS 09/27/2017 12/20/2018 Active irbesartan 300 mg tablet RxNorm: 770380 1 Tablet(s) PO daily 09/27/2017 12/20/2018 Active metformin 1,000 mg tablet RxNorm: 733289 1 Tablet(s) PO BID 09/27/2017 12/20/2018 Active Voltaren 1 % topical gel RxNorm: 886334 4 Gram(s) TOP QID 09/27/2017 12/20/2018 Active [SAVINGS FOR NON-COVERED DRUGS -- BIN:[id number], PCN: ASPROD1, Group: XXXXX, ID# XXXXXXX, Questions: . THIS IS NOT INSURANCE.] magnesium oxide 400 mg tablet RxNorm: 064155 1 Tablet(s) PO daily 09/27/2017 12/20/2018 Active Trueresult Blood Glucose System RxNorm: 1 test Miscellaneous QID insulin dependent diabetes 09/27/2017 09/21/2018 Active Insulin Syringe 0.3 mL 29 X 5/16" RxNorm: 1 injection SQ BID 09/27/2017 09/30/2017 Inactive Novolin R 100 unit/mL injection solution RxNorm: 599501 8 Unit(s) Inj QAM 10 units at lunch and 8 units at supper 09/27/2017 11/20/2017 Inactive dutasteride 0.5 mg capsule RxNorm: 193156 1 Capsule(s) PO daily 09/27/2017 12/24/2017 Inactive Voltaren 1 % topical gel RxNorm: 373680 4 Gram(s) TOP QID 07/23/2017 09/26/2017 Inactive [SAVINGS FOR NON-COVERED DRUGS -- BIN:385761, PCN: ASPROD1, Group: XXXXX, ID# [id number], Questions: . THIS IS NOT INSURANCE.] Bactrim DS 800 mg-160 mg tablet RxNorm: 699161 1 Tablet(s) PO BID 07/02/2017 07/08/2017 Inactive Kenalog 40 mg/mL suspension for injection RxNorm: 8010990 1 Milliliter(s) Inj 06/04/2017 06/04/2017 Inactive Efudex 5 % topical cream RxNorm: 878212 1 TOP BID 12/05/2016 12/14/2016 Inactive Avapro 300 mg tablet RxNorm: 169141 Tablet(s) TAKE 1 TABLET BY MOUTH ONCE DAILY. 09/21/2016 09/15/2017 Inactive Toujeo SoloStar 300 unit/mL (1.5 mL) subcutaneous insulin pen RxNorm: 2950922 45 Unit(s) SQ daily 09/21/2016 09/15/2017 Inactive 90 day supply Novolin R 100 unit/mL injection solution RxNorm: 008675 8 Unit(s) Inj QAM 10 units at lunch and 8 units at supper 09/21/2016 09/15/2017 Inactive metformin 1,000 mg tablet RxNorm: 863365 Tablet(s) TAKE 1 TABLET BY MOUTH TWICE DAILY AFTER MEALS 09/21/2016 09/15/2017 Inactive lovastatin 20 mg tablet RxNorm: 277954 Tablet(s) TAKE ONE TABLET BY MOUTH ONCE DAILY. 09/21/2016 09/15/2017 Inactive dutasteride 0.5 mg capsule RxNorm: 638987 1 Capsule(s) PO daily 09/21/2016 09/15/2017 Inactive Toujeo SoloStar 300 unit/mL (1.5 mL) subcutaneous insulin pen RxNorm: 0366001 45 Unit(s) SQ daily 06/27/2016 09/20/2016 Inactive Kenalog 40 mg/mL suspension for injection RxNorm: 4404928 1 Milliliter(s) Inj 06/21/2016 06/21/2016 Inactive Toujeo SoloStar 300 unit/mL (1.5 mL) subcutaneous insulin pen RxNorm: 2901436 40 Unit(s) SQ daily 05/24/2016 06/26/2016 Inactive Novolin R 100 unit/mL injection solution RxNorm: 289094 8 Unit(s) Inj QAM 10 units at lunch and 8 units at supper 05/24/2016 09/20/2016 Inactive Bactrim DS 800 mg-160 mg tablet RxNorm: 780210 1 Tablet(s) PO BID 10/03/2015 01/31/2016 Inactive dutasteride 0.5 mg capsule RxNorm: 007473 1 Capsule(s) PO daily 09/26/2015 09/19/2016 Inactive dutasteride 0.5 mg capsule RxNorm: 261129 1 Capsule(s) PO daily 09/26/2015 09/25/2015 Inactive Avodart 0.5 mg capsule RxNorm: 810551 1 Capsule(s) PO QPM 09/21/2015 09/25/2015 Inactive Avapro 300 mg tablet RxNorm: 645614 Tablet(s) TAKE 1 TABLET BY MOUTH ONCE DAILY. 09/21/2015 09/14/2016 Inactive Generic For:AVAPRO 300MG 08/26/2015 9:53:42 AM lovastatin 20 mg tablet RxNorm: 715363 1 Tablet(s) TAKE ONE TABLET BY MOUTH ONCE DAILY. 09/21/2015 09/20/2016 Inactive Generic For:*MEVACOR 20MG 10/06/2014 12:16:37 PM Novolin R 100 unit/mL injection solution RxNorm: 660144 5 Unit(s) Inj QAM 8 units at lunch and 5 units at supper 09/21/2015 05/23/2016 Inactive metformin 1,000 mg tablet RxNorm: 343179 Tablet(s) TAKE 1 TABLET BY MOUTH TWICE DAILY AFTER MEALS 09/21/2015 09/20/2016 Inactive Generic For:*GLUCOPHAGE 1000MG 10/18/2014 5:26:11 PM Toujeo SoloStar 300 unit/mL (1.5 mL) subcutaneous insulin pen RxNorm: 4194208 60 Unit(s) SQ daily 09/21/2015 05/23/2016 Inactive 3 month supply DX 250.02 also needs pen needles to use daily dx 250.02 Novolin R 100 unit/mL injection solution RxNorm: 191648 5 Unit(s) Inj QAM 8 units at lunch and 5 units at supper 09/07/2015 09/20/2015 Inactive lovastatin 20 mg tablet RxNorm: 921821 Tablet(s) TAKE ONE TABLET BY MOUTH ONCE DAILY. 09/07/2015 09/20/2015 Inactive Generic For:*MEVACOR 20MG 10/06/2014 12:16:37 PM metformin 1,000 mg tablet RxNorm: 733372 Tablet(s) TAKE 1 TABLET BY MOUTH TWICE DAILY AFTER MEALS 09/07/2015 09/20/2015 Inactive Generic For:*GLUCOPHAGE 1000MG 10/18/2014 5:26:11 PM Toujeo SoloStar 300 unit/mL (1.5 mL) subcutaneous insulin pen RxNorm: 3118844 60 Unit(s) SQ daily 09/07/2015 09/20/2015 Inactive 3 month supply DX 250.02 also needs pen needles to use daily dx 250.02 Avapro 300 mg tablet RxNorm: 918922 TAKE 1 TABLET BY MOUTH ONCE DAILY. 08/26/2015 09/20/2015 Inactive Generic For:AVAPRO 300MG 08/26/2015 9:53:42 AM Avodart 0.5 mg capsule RxNorm: 540215 1 Capsule(s) PO QPM 08/17/2015 09/20/2015 Inactive Novolin R 100 unit/mL injection solution RxNorm: 767734 5 Unit(s) Inj QAM 8 units at lunch and 5 units at supper 08/17/2015 09/06/2015 Inactive Trueresult Blood Glucose System RxNorm: 1 test Miscellaneous QID insulin dependent diabetes 08/17/2015 08/10/2016 Inactive Avodart 0.5 mg capsule RxNorm: 403326 1 Capsule(s) PO QPM 08/14/2015 08/16/2015 Inactive Novolin R 100 unit/mL injection solution RxNorm: 186670 5 Unit(s) Inj TID with meals 07/20/2015 08/16/2015 Inactive Toujeo SoloStar 300 unit/mL (1.5 mL) subcutaneous insulin pen RxNorm: 1236432 60 Unit(s) SQ daily 07/20/2015 09/06/2015 Inactive one month supply DX 250.02 also needs pen needles to use daily dx 250.02 Bactrim DS 800 mg-160 mg tablet RxNorm: 806613 1 Tablet(s) PO BID 05/09/2015 05/15/2015 Inactive Bactrim DS 800 mg-160 mg tablet RxNorm: 316418 1 Tablet(s) PO BID 05/09/2015 05/08/2015 Inactive Bactrim DS 800 mg-160 mg tablet RxNorm: 085290 1 Tablet(s) PO BID 05/09/2015 05/08/2015 Inactive Toujeo SoloStar 300 unit/mL (1.5 mL) subcutaneous insulin pen RxNorm: 4776787 45u qdx3 days then 50u qdx 5 days then if fsbs >180 55u qd Unit(s) SQ daily 05/02/2015 07/19/2015 Inactive one month supply DX 250.02 also needs pen needles to use daily dx 250.02 Toujeo SoloStar 300 unit/mL (1.5 mL) subcutaneous insulin pen RxNorm: 3665093 45u qdx3 days then 50u qdx 5 days then if fsbs >180 55u qd Unit(s) SQ daily 05/02/2015 05/01/2015 Inactive one month supply DX 250.02 also needs pen needles to use daily dx 250.02 Belviq 10 mg tablet RxNorm: 5198735 1 Tablet(s) PO BID 04/20/2015 09/20/2015 Inactive Insulin Syringe 0.3 mL 29 X 5/16" RxNorm: 1 Miscellaneous BID 03/24/2015 04/16/2016 Inactive Lantus 100 unit/mL subcutaneous solution RxNorm: 026854 30 Unit(s) SQ BID 02/14/2015 05/01/2015 Inactive pt not ready for refill yet, when he is, please fill 25units bid Lantus 100 unit/mL subcutaneous solution RxNorm: 168322 28 Unit(s) SQ BID 11/11/2014 02/13/2015 Inactive pt not ready for refill yet, when he is, please fill 25units bid [SAVINGS FOR NON-COVERED DRUGS -- BIN:[id number], PCN: ASPROD1, Group: XXXXX, ID# [id number], Questions: . THIS IS NOT INSURANCE.] Voltaren 1 % topical gel RxNorm: 750761 4 Gram(s) TOP QID 11/11/2014 03/10/2015 Inactive [SAVINGS FOR NON-COVERED DRUGS -- BIN:281406, PCN: ASPROD1, Group: XXXXX, ID# [id number], Questions: . THIS IS NOT INSURANCE.] metformin 1,000 mg tablet RxNorm: 404017 TAKE 1 TABLET BY MOUTH TWICE DAILY AFTER MEALS 10/19/2014 09/06/2015 Inactive Generic For:*GLUCOPHAGE 1000MG 10/18/2014 5:26:11 PM metformin 1,000 mg tablet RxNorm: 850910 Tablet(s) TAKE 1 TABLET BY MOUTH TWICE DAILY AFTER MEALS 10/18/2014 10/18/2014 Inactive Generic For:*GLUCOPHAGE 1000MG 04/16/2014 9:02:30 AM lovastatin 20 mg tablet RxNorm: 676570 TAKE ONE TABLET BY MOUTH ONCE DAILY. 10/07/2014 09/06/2015 Inactive Generic For:*MEVACOR 20MG 10/06/2014 12:16:37 PM lovastatin 20 mg tablet RxNorm: 285572 1 Tablet(s) PO daily TAKE ONE (1) TABLET BY MOUTH DAILY 10/06/2014 10/06/2014 Inactive Generic For:MEVACOR 20 MG TABLET Generic For:MEVACOR 20 MG TABLET 08/14/2013 8:06:44 AM Carafate 1 gram tablet RxNorm: 338125 1 Tablet(s) PO QID dissolve in 10mL of fluid, drink liquid carafate four times daily before meals and before bed 10/04/2014 11/10/2014 Inactive may dispense generic Avapro 300 mg tablet RxNorm: 175219 TAKE 1 TABLET BY MOUTH ONCE DAILY. 08/26/2014 08/20/2015 Inactive Generic For:AVAPRO 300MG 08/26/2014 9:03:29 AM Avodart 0.5 mg capsule RxNorm: 125863 1 Capsule(s) PO QPM 08/02/2014 07/27/2015 Inactive meloxicam 15 mg tablet RxNorm: 647929 TAKE 1 TABLET BY MOUTH ONCE DAILY. 06/11/2014 11/10/2014 Inactive Generic For:MOBIC 15MG 06/11/2014 9:05:37 AM Kenalog 40 mg/mL suspension for injection RxNorm: 7148813 1 Milliliter(s) Inj 05/04/2014 05/04/2014 Inactive Lantus Solostar 100 unit/mL (3 mL) subcutaneous insulin pen RxNorm: 513605 25 Unit(s) SQ BID 04/19/2014 02/13/2015 Inactive Lantus 100 unit/mL subcutaneous solution RxNorm: 678138 25 Unit(s) SQ BID break up lantus to two shots daily of 22 units each shot 04/19/2014 11/10/2014 Inactive pt not ready for refill yet, when he is, please fill 25units bid metformin 1,000 mg tablet RxNorm: 541051 TAKE 1 TABLET BY MOUTH TWICE DAILY AFTER MEALS 04/16/2014 10/12/2014 Inactive Generic For:*GLUCOPHAGE 1000MG 04/16/2014 9:02:30 AM Insulin Syringe 0.3 mL 29 X 5/16" RxNorm: 1 Miscellaneous BID 03/15/2014 03/23/2015 Inactive Insulin Syringe 0.3 mL 29 X 5/16" RxNorm: 1 Miscellaneous BID 03/15/2014 03/14/2014 Inactive meloxicam 15 mg tablet RxNorm: 296230 TAKE 1 TABLET EVERY 03/15/2014 06/10/2014 Inactive Generic For:MOBIC 15MG 03/15/2014 9:06:35 AM Lantus 100 unit/mL subcutaneous solution RxNorm: 412341 22 Unit(s) SQ BID break up lantus to two shots daily of 22 units each shot 01/14/2014 04/18/2014 Inactive metformin 1,000 mg tablet RxNorm: 320177 Tablet(s) PO TAKE 1 TABLET BY MOUTH TWICE DAILY AFTER MEALS 01/07/2014 04/15/2014 Inactive Generic For:*GLUCOPHAGE 1000MG Lantus 100 unit/mL subcutaneous solution RxNorm: 274325 25 Unit(s) SQ BID break up lantus to two shots daily of 25 units each shot 09/30/2013 09/29/2013 Inactive Lantus 100 unit/mL subcutaneous solution RxNorm: 107195 25 Unit(s) SQ BID break up lantus to two shots daily of 25 units each shot 09/30/2013 01/13/2014 Inactive metformin 1,000 mg tablet RxNorm: 752298 1 Tablet(s) PO BID TAKE 1 TABLET BY MOUTH TWICE DAILY AFTER MEALS 09/30/2013 12/28/2013 Inactive Generic For:GLUCOPHAGE 1000MG TAB Generic For:GLUCOPHAGE 1000MG TAB Avapro 300 mg tablet RxNorm: 771389 Tablet(s) PO TAKE ONE (1) TABLET BY MOUTH DAILY 08/28/2013 08/25/2014 Inactive Generic For:*AVAPRO 300MG TAB Generic For:*AVAPRO 300MG TAB 08/28/2013 8:53:42 AM lovastatin 20 mg tablet RxNorm: 395657 Tablet(s) PO TAKE ONE (1) TABLET BY MOUTH DAILY 08/14/2013 10/05/2014 Inactive Generic For:MEVACOR 20 MG TABLET Generic For:MEVACOR 20 MG TABLET 08/14/2013 8:06:44 AM metformin 1,000 mg tablet RxNorm: 237053 Tablet(s) PO TAKE 1 TABLET BY MOUTH TWICE DAILY AFTER MEALS 07/16/2013 09/29/2013 Inactive Generic For:GLUCOPHAGE 1000MG TAB Generic For:GLUCOPHAGE 1000MG TAB Influenza Virus Vaccine 0.5 mL RxNorm: IM 07/01/2013 07/01/2013 Inactive Contour Test Strips RxNorm: strip miscellaneous USE TO TEST BLOOD SUGAR THREE TIMES DAILY DIRECTED 06/29/2013 03/14/2014 Inactive metformin 1,000 mg tablet RxNorm: 645412 Tablet(s) PO TAKE 1 TABLET BY MOUTH TWICE DAILY AFTER MEALS 04/14/2013 07/15/2013 Inactive Generic For:GLUCOPHAGE 1000MG TAB meloxicam 15 mg tablet RxNorm: 702678 Tablet(s) PO TAKE ONE TABLET BY MOUTH EVERY DAY 03/21/2013 03/14/2014 Inactive Generic For:MOBIC 15MG TAB 03/19/2013 8:10:41 AM Lantus 100 unit/mL subcutaneous solution RxNorm: 049379 25 Unit(s) SQ BID break up lantus to two shots daily of 25 units each shot 03/04/2013 06/01/2013 Inactive Insulin Syringe 0.3 mL 29 X 5/16" RxNorm: 1 Unit Dose Miscellaneous BID 02/04/2013 09/01/2013 Inactive Lantus 100 unit/mL Sub-Q RxNorm: 859451 20 Unit(s) SQ BID break up lantus to two shots daily of 20units each shot 02/04/2013 03/03/2013 Inactive topiramate 25 mg tablet RxNorm: 922253 1 Tablet(s) PO daily 02/04/2013 04/08/2013 Inactive metformin 1,000 mg tablet RxNorm: 438297 Tablet(s) PO TAKE 1 TABLET BY MOUTH TWICE DAILY AFTER MEALS 01/15/2013 04/13/2013 Inactive Generic For:GLUCOPHAGE 1000MG TAB Lantus 100 unit/mL Sub-Q RxNorm: 009503 30 Unit(s) SQ QPM 12/03/2012 01/01/2013 Inactive Kenalog 40 mg/mL Susp for Injection RxNorm: 0733007 1 Milliliter(s) Inj 09/25/2012 09/25/2012 Inactive Lantus 100 unit/mL Sub-Q RxNorm: 431714 25 Unit(s) SQ QPM 09/12/2012 10/11/2012 Inactive Avapro 300 mg tablet RxNorm: 768105 Tablet(s) PO TAKE ONE (1) TABLET BY MOUTH DAILY 09/03/2012 09/02/2012 Inactive Generic For:AVAPRO 300MG TAB Avapro 300 mg tablet RxNorm: 719121 Tablet(s) PO TAKE ONE (1) TABLET BY MOUTH DAILY 09/03/2012 08/27/2013 Inactive Generic For:AVAPRO 300MG TAB Lantus 100 unit/mL Sub-Q RxNorm: 428134 20 Unit(s) SQ QPM 08/27/2012 09/11/2012 Inactive Avapro 300 mg tablet RxNorm: 245906 1 Tablet(s) PO daily 08/27/2012 09/02/2012 Inactive Lantus 100 unit/mL Sub-Q RxNorm: 316133 15 Unit(s) SQ QPM 08/07/2012 08/26/2012 Inactive metformin 1,000 mg tablet RxNorm: 868912 Tablet(s) PO 07/18/2012 01/14/2013 Inactive TAKE 1 TABLET BY MOUTH TWICE DAILY AFTER MEALS;Generic For:GLUCOPHAGE 1,000 MG TABLET Lantus 100 unit/mL Sub-Q RxNorm: 857368 13 Unit(s) SQ QPM 06/25/2012 07/24/2012 Inactive lovastatin 20 mg tablet RxNorm: 724007 Tablet(s) PO 06/20/2012 07/14/2013 Inactive TAKE 2 TABLETS BY MOUTH AT BEDTIME;Generic For:MEVACOR 20 MG TABLET Pneumovax 23 25 mcg/0.5 mL Injection RxNorm: 477804 Milliliter(s) Inj 06/04/2012 06/04/2012 Inactive Influenza Virus Vaccine 0.5 mL RxNorm: IM 06/04/2012 06/04/2012 Inactive Insulin Syringe 0.3 mL 29 X 5/16" RxNorm: 1 Unit Dose Miscellaneous daily 06/03/2012 12/29/2012 Inactive lovastatin 20 mg tablet RxNorm: 500271 Tablet(s) PO 05/14/2012 06/19/2012 Inactive TAKE 2 TABLETS BY MOUTH AT BEDTIME;Generic For:MEVACOR 20 MG TABLET Contour Test Strips RxNorm: Miscellaneous TID 04/25/2012 05/24/2012 Inactive lovastatin 20 mg tablet RxNorm: 870567 Tablet(s) PO 04/16/2012 05/13/2012 Inactive TAKE 2 TABLETS BY MOUTH AT BEDTIME;Generic For:MEVACOR 20 MG TABLET metformin 1,000 mg tablet RxNorm: 766625 Tablet(s) PO 04/16/2012 07/17/2012 Inactive TAKE 1 TABLET BY MOUTH TWICE DAILY AFTER MEALS;Generic For:GLUCOPHAGE 1,000 MG TABLET citalopram 20 mg tablet RxNorm: 163436 1 Tablet(s) PO daily 04/09/2012 09/23/2012 Inactive meloxicam 15 mg Tab RxNorm: 090092 1 Tablet(s) PO daily 2012 03/04/2012 Inactive meloxicam 15 mg Tab RxNorm: 125705 Tablet(s) PO 2012 07/19/2015 Inactive TAKE 1 TABLET BY MOUTH DAILY;Generic For:MOBIC 15MG TAB WC meloxicam 15 mg tablet RxNorm: 785018 1 Tablet(s) PO daily 2012 03/04/2012 Inactive Rocephin 500 mg Solution for Injection RxNorm: 780229 Inj 03/04/2012 03/04/2012 Inactive sulfamethoxazole 800 mg-trimethoprim 160 mg tablet RxNorm: 932723 1 Tablet(s) PO BID 03/04/2012 03/13/2012 Inactive metoprolol succinate ER 25 mg 24 hr Tab RxNorm: 045777 1 Tablet(s) PO daily 12/03/2011 11/16/2014 Inactive Byetta 10 mcg/0.04 mL per dose Sub-Q Pen Injector RxNorm: 368422 10 Microgram(s) SQ BID 10 meq twice daily before the two largest meals of the day. 12/03/2011 06/03/2012 Inactive Plavix 75 mg Tab RxNorm: 178171 1 Tablet(s) PO daily 12/03/2011 11/16/2014 Inactive lovastatin 20 mg tablet RxNorm: 352064 2 Tablet(s) PO daily 11/12/2011 04/15/2012 Inactive TAKE 2 TABLETS BY MOUTH DAILY AT BEDTIME;Generic For:MEVACOR 20 MG TABLET N O T I C E Last dispense quantity was less than original quantity written Avapro 300 mg tablet RxNorm: 393597 1 Tablet(s) PO daily 08/28/2011 08/21/2012 Inactive metformin 1,000 mg Tab RxNorm: 922431 1 Tablet(s) PO BID 07/09/2011 07/02/2012 Inactive Victoza 0.6 mg/0.1 mL (18 mg/3 mL) Sub-Q Pen Injector RxNorm: 180749 1.8 Milligram(s) SQ daily 06/20/2011 03/04/2012 Inactive Fish Oil 1,000 mg capsule RxNorm: 1 Capsule(s) PO BID No Start Date Active Ocuvite oral RxNorm: 698127 oral No Start Date Active Farxiga 5 mg tablet RxNorm: 5040059 1 Tablet(s) PO QAM No Start Date Active potassium gluconate 595 mg (99 mg) tablet RxNorm: 211266 1 Tablet(s) PO daily No Start Date Active aspirin 81 mg Cap, Delayed Release RxNorm: 523147 1 Capsule(s) PO daily No Start Date Active multivitamin tablet RxNorm: oral No Start Date Active B Complex 1 oral RxNorm: 95327 oral No Start Date Active Protonix 40 mg tablet,delayed release RxNorm: 558334 1 Tablet(s) PO daily No Start Date 09/26/2017 Inactive Bydureon 2 mg SubQ Susp RxNorm: 4695448 1 SQ QW No Start Date 06/03/2012 Inactive Avapro 150 mg Tab RxNorm: 937855 1 Tablet(s) PO daily No Start Date 03/04/2012 Inactive Travatan Z 0.004 % Eye Drops RxNorm: 012571 1 Drop(s) OPH daily No Start Date 06/14/2014 Inactive metformin 1,000 mg tablet RxNorm: 947377 1 Tablet(s) PO BID No Start Date 03/04/2012 Inactive magnesium oxide 400 mg tablet RxNorm: 543652 Tablet(s) PO No Start Date 09/26/2017 Inactive Ativan 0.5 mg tablet RxNorm: 073716 1 Tablet(s) PO No Start Date 10/09/2013 Inactive 1 30 min prior to procedure meloxicam 15 mg Tab RxNorm: 338963 1 Tablet(s) PO daily No Start Date 03/04/2012 Inactive lovastatin 20 mg Tab RxNorm: 025601 2 Tablet(s) PO QHS No Start Date 11/12/2011 Inactive Pen Needle 31 x 3/16" RxNorm: Miscellaneous BID Pen [place] 31g/8mm BD to use for Byetta injection BID No Start Date 06/03/2012 Inactive Medication Administered Medication Codes Instructions Start Date Status Kenalog 40 mg/mL suspension for injection RxNorm: 9106790 1Milliliter 06/04/2017 No longer Active Kenalog 40 mg/mL suspension for injection RxNorm: 4228855 1Milliliter 06/21/2016 No longer Active Kenalog 40 mg/mL suspension for injection RxNorm: 8185631 1Milliliter 05/04/2014 No longer Active Influenza Virus Vaccine 0.5 mL RxNorm: 07/01/2013 No longer Active Kenalog 40 mg/mL Susp for Injection RxNorm: 0301049 1Milliliter 09/25/2012 No longer Active Influenza Virus Vaccine 0.5 mL RxNorm: 06/04/2012 No longer Active Pneumovax 23 25 mcg/0.5 mL Injection RxNorm: 373606 Milliliter 06/04/2012 No longer Active Rocephin 500 mg Solution for Injection RxNorm: 261791 03/04/2012 No longer Active Immunizations Vaccine Codes Date Status Influenza CVX: 141 05/21/2018 completed Pneumococcal (Adult) [...] 724.2 07/07/2018 Type 2 diabetes mellitus with hyperglycemia ICD-10: E11.65 ICD-9: 250.02 07/07/2018 Mixed hyperlipidemia ICD-10: E78.2 ICD-9: 272.2 07/03/2018 Type 2 diabetes mellitus with diabetic polyneuropathy ICD-10: E11.42 ICD-9: 250.60 07/03/2018 Encounter for immunization ICD-10: Z23 ICD-9: V04.81 05/21/2018 Encounter for immunization ICD-10: Z23 ICD-9: V06.6 05/21/2018 Other obesity due to excess calories ICD-10: E66.09 ICD-9: 278.00 03/06/2018 Essential tremor ICD-10: G25.0 ICD-9: 333.1 03/06/2018 Type 2 diabetes mellitus without complications ICD-10: E11.9 ICD-9: 250.00 03/03/2018 Trochanteric bursitis, right hip ICD-10: M70.61 ICD-9: 726.5 12/24/2017 Encounter for general adult medical examination with abnormal findings ICD-10: Z00.01 ICD-9: V70.0 12/24/2017 Arthralgia of bilateral temporomandibular joint ICD-10: M26.623 ICD-9: 524.62 11/21/2017 Mixed hyperlipidemia ICD-10: E78.2 ICD-9: 272.4 07/29/2017 Other hypertrophic disorders of the skin ICD-10: L91.8 ICD-9: 701.9 07/02/2017 Cellulitis of left lower limb ICD-10: L03.116 ICD-9: 682.6 07/02/2017 Lumbago with sciatica, right side ICD-10: M54.41 ICD-9: 724.3 06/04/2017 Palpitations ICD-10: R00.2 ICD-9: 785.1 04/03/2017 Cough ICD-10: R05 ICD-9: 786.2 04/03/2017 Essential (primary) hypertension ICD-10: I10 ICD-9: 401.9 03/28/2017 Morbid (severe) obesity due to excess calories [...] 331.83 02/08/2014 Nightmares ICD-9: 307.47 02/08/2014 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 10/14/2013 Thumb pain ICD-9: 729.5 [...] Code Item Item Code Result Date %Hba1C Ggz653 % HbA1c 90444- 6 7.6 % 07/04/2018 %Hba1C Urd675 Gluc Ave 171 mg/dL 07/04/2018 Comp Metabolic Oul423 NA 140 mEq/L 07/04/2018 Comp Metabolic Nxm197 K 4.5 mEq/L 07/04/2018 Comp Metabolic Lgk073 CL 104 mEq/L 07/04/2018 Comp Metabolic Fye022 CO2 28.0 mEq/L 07/04/2018 Comp Metabolic Por377 ANION GAP 13 07/04/2018 Comp Metabolic Jys896 GLUCOSE 211 mg/dL 07/04/2018 Comp Metabolic Ccv827 Creat 0.9 mg/dL 07/04/2018 Comp Metabolic Roo537 eGFR 85 ml/min/1.73m2 07/04/2018 Comp Metabolic Nsa233 BUN 20 mg/dL 07/04/2018 Comp Metabolic Ozb024 B/C Ratio 21.7 Ratio 07/04/2018 Comp Metabolic Kna119 CALCIUM 9.5 mg/dL 07/04/2018 Comp Metabolic Eis067 ALK PHOS 46 U/L 07/04/2018 Comp Metabolic Rpy006 AST(SGOT) 26 U/L 07/04/2018 Comp Metabolic Zjv668 ALT(SGPT) 29 U/L 07/04/2018 Comp Metabolic Fuc810 BILI T 0.6 mg/dL 07/04/2018 Comp Metabolic Ilv233 ALBUMIN 4.2 g/dL 07/04/2018 Comp Metabolic Sst096 TPRO 6.8 g/dL 07/04/2018 Comp Metabolic Bzj390 GLOB 2.6 g/dL 07/04/2018 Comp Metabolic Xcx802 A/G Ratio 1.6 Ratio 07/04/2018 Comp Metabolic Nvm104 Osmo 288 mOsmo 07/04/2018 Tsh Ord6 TSH [...] 91.8 fl 07/04/2018 Cbc With Differential Ord2 MCH 31.0 pg 07/04/2018 Cbc With Differential Ord2 [place]% 12.9 % 07/04/2018 Cbc With Differential Ord2 Eos% 4.0 % 07/04/2018 Cbc With Differential Ord2 MCHC 33.8 pg 07/04/2018 Cbc With Differential Ord2 PLT 239 K/ul 07/04/2018 Cbc With Differential Ord2 Baso% 1.1 % 07/04/2018 Cbc With Differential Ord2 RDW 14.4 % 07/04/2018 Cbc With Differential Ord2 Neut ABS# 3.85 K/ul 07/04/2018 Cbc With Differential Ord2 Lymph ABS# 1.86 K/ul 07/04/2018 Cbc With Differential Ord2 [place] ABS# 0.9 K/ul 07/04/2018 Cbc With Differential Ord2 Eos ABS# 0.3 K/ul 07/04/2018 Cbc With Differential Ord2 Baso ABS# 0.1 K/ul 07/04/2018 Lipid Ord30 CHOL 159 mg/dL 07/04/2018 Lipid Ord30 HDL 45.0 mg/dl 07/04/2018 Lipid Ord30 TRIG 244 mg/dL 07/04/2018 Lipid Ord30 LDL 65 mg/dL 07/04/2018 Lipid Ord30 C/HDL 3.5 Ratio 07/04/2018 %Hba1C Koa334 % HbA1c 35768- 6 8.0 % 03/06/2018 %Hba1C Iuu280 Gluc Ave 183 mg/dL 03/06/2018 Lipid Ord30 [...] 54.3 % 03/04/2018 Cbc With Differential Ord2 Lymph% 29.1 % 03/04/2018 Cbc With Differential Ord2 MCV 90.8 fl 03/04/2018 Cbc With Differential Ord2 [place]% 12.2 % 03/04/2018 Cbc With Differential Ord2 MCH 30.2 pg 03/04/2018 Cbc With Differential Ord2 Eos% 3.3 % 03/04/2018 Cbc With Differential Ord2 MCHC 33.2 pg 03/04/2018 Cbc With Differential Ord2 PLT 237 K/ul 03/04/2018 Cbc With Differential Ord2 Baso% 1.1 % 03/04/2018 Cbc With Differential Ord2 Neut ABS# 3.61 K/ul 03/04/2018 Cbc With Differential Ord2 RDW 14.4 % 03/04/2018 Cbc With Differential Ord2 Lymph ABS# 1.93 K/ul 03/04/2018 Cbc With Differential Ord2 [place] ABS# 0.8 K/ul 03/04/2018 Cbc With Differential Ord2 Eos ABS# 0.2 K/ul 03/04/2018 Cbc With Differential Ord2 Baso ABS# 0.1 K/ul 03/04/2018 Comp Metabolic Ehn277 NA 139 mEq/L 03/04/2018 Comp Metabolic Iec106 K 4.5 mEq/L 03/04/2018 Comp Metabolic Zsf230 CL 102 mEq/L 03/04/2018 Comp Metabolic Rot280 CO2 28.0 mEq/L 03/04/2018 Comp Metabolic Xke551 ANION GAP 14 03/04/2018 Comp Metabolic Ojx999 GLUCOSE 201 mg/dL 03/04/2018 Comp Metabolic Qrf691 Creat 1.0 mg/dL 03/04/2018 Comp Metabolic Ozn793 eGFR 78 ml/min/1.73m2 03/04/2018 Comp Metabolic Jzo249 BUN 18 mg/dL 03/04/2018 Comp Metabolic Vdq862 B/C Ratio 18.0 Ratio 03/04/2018 Comp Metabolic Tyg015 CALCIUM 9.4 mg/dL 03/04/2018 Comp Metabolic Mlg395 ALK PHOS 40 U/L 03/04/2018 Comp Metabolic Wpl558 AST(SGOT) 21 U/L 03/04/2018 Comp Metabolic Maq968 ALT(SGPT) 27 U/L 03/04/2018 Comp Metabolic Yjg749 BILI T 0.6 mg/dL 03/04/2018 Comp Metabolic Zct573 ALBUMIN 4.1 g/dL 03/04/2018 Comp Metabolic Ptb359 TPRO 6.7 g/dL 03/04/2018 Comp Metabolic Dck266 GLOB 2.7 g/dL 03/04/2018 Comp Metabolic Voc352 A/G Ratio 1.5 Ratio 03/04/2018 Comp Metabolic Pbs552 Osmo 285 mOsmo 03/04/2018 Lipid Ord30 CHOL 171 mg/dL 11/20/2017 Lipid Ord30 HDL 52.0 mg/dl 11/20/2017 Lipid Ord30 TRIG 248 mg/dL 11/20/2017 Lipid Ord30 LDL 69 mg/dL 11/20/2017 Lipid Ord30 C/HDL 3.3 Ratio 11/20/2017 %Hba1C Uhl229 % HbA1c 75928- 6 7.7 % 11/20/2017 %Hba1C Hko566 Gluc Ave 174 mg/dL 11/20/2017 Comp Metabolic Pks607 NA 140 mEq/L 11/20/2017 Comp Metabolic Iga946 K 4.3 mEq/L 11/20/2017 Comp Metabolic Ubh710 CL 103 mEq/L 11/20/2017 Comp Metabolic Hus862 CO2 27.0 mEq/L 11/20/2017 Comp Metabolic Cuv128 ANION GAP 14 11/20/2017 Comp Metabolic Mpv781 GLUCOSE 151 mg/dL 11/20/2017 Comp Metabolic Kmi010 Creat 0.9 mg/dL 11/20/2017 Comp Metabolic Nyb088 eGFR 87 ml/min/1.73m2 11/20/2017 Comp Metabolic San695 BUN 25 mg/dL 11/20/2017 Comp Metabolic Zoo904 B/C Ratio 27.5 Ratio 11/20/2017 Comp Metabolic Itp141 CALCIUM 9.7 mg/dL 11/20/2017 Comp Metabolic Mdw747 ALK PHOS 49 U/L 11/20/2017 Comp Metabolic Yzt047 AST(SGOT) 25 U/L 11/20/2017 Comp Metabolic Gqd292 ALT(SGPT) 24 U/L 11/20/2017 Comp Metabolic Ckl118 BILI T 0.6 mg/dL 11/20/2017 Comp Metabolic Brn909 ALBUMIN 4.2 g/dL 11/20/2017 Comp Metabolic Xkd021 TPRO 6.6 g/dL 11/20/2017 Comp Metabolic Xth355 GLOB 2.4 g/dL 11/20/2017 Comp Metabolic Sbd937 A/G Ratio 1.8 Ratio 11/20/2017 Comp Metabolic Vja930 Osmo 287 mOsmo 11/20/2017 Cbc With Differential [...] 31.0 pg 07/25/2017 Cbc With Differential Ord2 [place]% 13.3 % 07/25/2017 Cbc With Differential Ord2 Eos% 2.7 % 07/25/2017 Cbc With Differential Ord2 MCHC 33.5 pg 07/25/2017 Cbc With Differential Ord2 PLT 239 K/ul 07/25/2017 Cbc With Differential Ord2 Baso% 0.9 % 07/25/2017 Cbc With Differential Ord2 Neut ABS# 3.61 K/ul 07/25/2017 Cbc With Differential Ord2 RDW 14.9 % 07/25/2017 Cbc With Differential Ord2 Lymph ABS# 1.89 K/ul 07/25/2017 Cbc With Differential Ord2 [place] ABS# 0.9 K/ul 07/25/2017 Cbc With Differential Ord2 Eos ABS# 0.2 K/ul 07/25/2017 Cbc With Differential Ord2 Baso ABS# 0.1 K/ul 07/25/2017 Comp Metabolic Nwg307 NA 140 mEq/L 07/25/2017 Comp Metabolic Cor795 K 4.7 mEq/L 07/25/2017 Comp Metabolic Ahy160 CL 102 mEq/L 07/25/2017 Comp Metabolic Xub850 CO2 30.0 mEq/L 07/25/2017 Comp Metabolic Qzi694 ANION GAP 13 07/25/2017 Comp Metabolic Nuc374 GLUCOSE 178 mg/dL 07/25/2017 Comp Metabolic Ohj988 Creat 1.0 mg/dL 07/25/2017 Comp Metabolic Ufp782 eGFR 75 ml/min/1.73m2 07/25/2017 Comp Metabolic Jpe330 BUN 23 mg/dL 07/25/2017 Comp Metabolic Mou332 B/C Ratio 22.3 Ratio 07/25/2017 Comp Metabolic Aof232 CALCIUM 9.7 mg/dL 07/25/2017 Comp Metabolic Xxs266 ALK PHOS 40 U/L 07/25/2017 Comp Metabolic Ket824 AST(SGOT) 22 U/L 07/25/2017 Comp Metabolic Oll668 ALT(SGPT) 25 U/L 07/25/2017 Comp Metabolic Yrc153 BILI T 0.7 mg/dL 07/25/2017 Comp Metabolic Tpe907 ALBUMIN 4.0 g/dL 07/25/2017 Comp Metabolic Aer665 TPRO 6.7 g/dL 07/25/2017 Comp Metabolic Pma172 GLOB 2.7 g/dL 07/25/2017 Comp Metabolic Hjj087 A/G Ratio 1.5 Ratio 07/25/2017 Comp Metabolic Znt820 Osmo 288 mOsmo 07/25/2017 %Hba1C Qxj482 % HbA1c 34597- 6 7.1 % 07/25/2017 %Hba1C Uco859 Gluc Ave 157 mg/dL 07/25/2017 Lipid Ord30 CHOL 164 mg/dL 07/25/2017 Lipid Ord30 HDL 49.0 mg/dl 07/25/2017 Lipid Ord30 TRIG 266 mg/dL 07/25/2017 Lipid Ord30 LDL 62 mg/dL 07/25/2017 Lipid Ord30 C/HDL 3.3 Ratio 07/25/2017 Comp Metabolic Duj493 NA 140 mEq/L 04/02/2017 Comp Metabolic Ljy798 K 4.4 mEq/L 04/02/2017 Comp Metabolic Khw178 CL 103 mEq/L 04/02/2017 Comp Metabolic Xpw395 CO2 27.0 mEq/L 04/02/2017 Comp Metabolic Yvp716 ANION GAP 14 04/02/2017 Comp Metabolic Hma853 GLUCOSE 182 mg/dL 04/02/2017 Comp Metabolic Orq026 Creat 1.1 mg/dL 04/02/2017 Comp Metabolic Lpl980 eGFR 73 ml/min/1.73m2 04/02/2017 Comp Metabolic Cft191 BUN 26 mg/dL 04/02/2017 Comp Metabolic Het453 B/C Ratio 24.5 Ratio 04/02/2017 Comp Metabolic Nwq742 CALCIUM 9.4 mg/dL 04/02/2017 Comp Metabolic Wnl646 ALK PHOS 43 U/L 04/02/2017 Comp Metabolic Nzu758 AST(SGOT) 19 U/L 04/02/2017 Comp Metabolic Vth820 ALT(SGPT) 20 U/L 04/02/2017 Comp Metabolic Tlw819 BILI T 0.7 mg/dL 04/02/2017 Comp Metabolic Pfe327 ALBUMIN 4.0 g/dL 04/02/2017 Comp Metabolic Xub808 TPRO 6.6 g/dL 04/02/2017 Comp Metabolic Btf615 GLOB 2.6 g/dL 04/02/2017 Comp Metabolic Qlm567 A/G Ratio 1.6 Ratio 04/02/2017 Comp Metabolic Rwo517 Osmo 289 mOsmo 04/02/2017 %Hba1C Xic481 % HbA1c 96297- 6 7.9 % 04/02/2017 %Hba1C Mcf863 Gluc Ave 180 mg/dL 04/02/2017 Cbc With [...] 91.4 fl 04/02/2017 Cbc With Differential Ord2 MCH 30.6 pg 04/02/2017 Cbc With Differential Ord2 [place]% 11.5 % 04/02/2017 Cbc With Differential Ord2 Eos% 3.4 % 04/02/2017 Cbc With Differential Ord2 MCHC 33.5 pg 04/02/2017 Cbc With Differential Ord2 Baso% 0.8 % 04/02/2017 Cbc With Differential Ord2 PLT 253 K/ul 04/02/2017 Cbc With Differential Ord2 Neut ABS# 4.02 K/ul 04/02/2017 Cbc With Differential Ord2 RDW 14.4 % 04/02/2017 Cbc With Differential Ord2 Lymph ABS# 2.21 K/ul 04/02/2017 Cbc With Differential Ord2 [place] ABS# 0.9 K/ul 04/02/2017 Cbc With Differential [...] 30.6 pg 12/04/2016 Cbc With Differential Ord2 [place]% 10.7 % 12/04/2016 Cbc With Differential Ord2 Eos% 3.1 % 12/04/2016 Cbc With Differential Ord2 MCHC 33.5 pg 12/04/2016 Cbc With Differential Ord2 Baso% 1.1 % 12/04/2016 Cbc With Differential Ord2 PLT 254 K/ul 12/04/2016 Cbc With Differential Ord2 RDW 14.3 % 12/04/2016 Cbc With Differential Ord2 Neut ABS# 4.27 K/ul 12/04/2016 Cbc With Differential Ord2 Lymph ABS# 1.76 K/ul 12/04/2016 Cbc With Differential Ord2 [place] ABS# 0.8 K/ul 12/04/2016 Cbc With Differential Ord2 Eos ABS# 0.2 K/ul 12/04/2016 Cbc With Differential Ord2 Baso ABS# 0.1 K/ul 12/04/2016 Lipid Ord30 CHOL 156 mg/dL 12/04/2016 Lipid Ord30 HDL 47.0 mg/dl 12/04/2016 Lipid Ord30 TRIG 219 mg/dL 12/04/2016 Lipid Ord30 LDL 65 mg/dL 12/04/2016 Lipid Ord30 C/HDL 3.3 Ratio 12/04/2016 Comp Metabolic Npl638 NA 139 mEq/L 12/04/2016 Comp Metabolic Acd735 K 4.4 mEq/L 12/04/2016 Comp Metabolic Kce746 CL 103 mEq/L 12/04/2016 Comp Metabolic Kpz902 CO2 27.0 mEq/L 12/04/2016 Comp Metabolic Cet826 ANION GAP 13 12/04/2016 Comp Metabolic Efp753 GLUCOSE 147 mg/dL 12/04/2016 Comp Metabolic Mlz142 Creat 1.0 mg/dL 12/04/2016 Comp Metabolic Vim292 eGFR 83 ml/min/1.73m2 12/04/2016 Comp Metabolic Xox373 BUN 20 mg/dL 12/04/2016 Comp Metabolic Kxh421 B/C Ratio 21.1 Ratio 12/04/2016 Comp Metabolic Kng662 CALCIUM 9.5 mg/dL 12/04/2016 Comp Metabolic Wlq638 ALK PHOS 44 U/L 12/04/2016 Comp Metabolic Ccn842 AST(SGOT) 22 U/L 12/04/2016 Comp Metabolic Jla542 ALT(SGPT) 23 U/L 12/04/2016 Comp Metabolic Tlt897 BILI T 0.8 mg/dL 12/04/2016 Comp Metabolic Gkl091 ALBUMIN 3.9 g/dL 12/04/2016 Comp Metabolic Zjh381 TPRO 6.3 g/dL 12/04/2016 Comp Metabolic Cwv730 GLOB 2.4 g/dL 12/04/2016 Comp Metabolic Bge640 A/G Ratio 1.7 Ratio 12/04/2016 Comp Metabolic Hwd179 Osmo 283 mOsmo 12/04/2016 Tsh Ord6 hTSH II 3.35 uIU/mL 12/04/2016 %Hba1C Plc621 % HbA1c 45519- 6 7.4 % 12/04/2016 %Hba1C Gzh297 Gluc Ave 166 mg/dL 12/04/2016 Comp Metabolic Wyd236 NA 138 mEq/L 08/28/2016 Comp Metabolic Buw187 K 4.7 mEq/L 08/28/2016 Comp Metabolic Pls831 CL 101 mEq/L 08/28/2016 Comp Metabolic Eib666 CO2 29.0 mEq/L 08/28/2016 Comp Metabolic Oed717 ANION GAP 13 08/28/2016 Comp Metabolic Knn704 GLUCOSE 188 mg/dL 08/28/2016 Comp Metabolic Hbe054 Creat 1.0 mg/dL 08/28/2016 Comp Metabolic Bcy905 eGFR 82 ml/min/1.73m2 08/28/2016 Comp Metabolic Fdp543 BUN 21 mg/dL 08/28/2016 Comp Metabolic Dyt693 B/C Ratio 21.9 Ratio 08/28/2016 Comp Metabolic Yeh700 CALCIUM 9.6 mg/dL 08/28/2016 Comp Metabolic Pwm434 ALK PHOS 52 U/L 08/28/2016 Comp Metabolic Wmv113 AST(SGOT) 27 U/L 08/28/2016 Comp Metabolic Ktv103 ALT(SGPT) 26 U/L 08/28/2016 Comp Metabolic Kmf410 BILI T 0.9 mg/dL 08/28/2016 Comp Metabolic Wbx945 ALBUMIN 4.2 g/dL 08/28/2016 Comp Metabolic Jtn804 TPRO 6.8 g/dL 08/28/2016 Comp Metabolic Yud185 GLOB 2.6 g/dL 08/28/2016 Comp Metabolic Gjd568 A/G Ratio 1.6 Ratio 08/28/2016 Comp Metabolic Rlw580 Osmo 284 mOsmo 08/28/2016 Cbc With Differential [...] 30.9 pg 08/28/2016 Cbc With Differential Ord2 [place]% 14.3 % 08/28/2016 Cbc With Differential Ord2 MCHC 34.0 pg 08/28/2016 Cbc With Differential Ord2 Eos% 3.8 % 08/28/2016 Cbc With Differential Ord2 Baso% 0.8 % 08/28/2016 Cbc With Differential Ord2 PLT 256 K/ul 08/28/2016 Cbc With Differential Ord2 Neut ABS# 4.27 K/ul 08/28/2016 Cbc With Differential Ord2 RDW 14.1 % 08/28/2016 Cbc With Differential Ord2 Lymph ABS# 1.68 K/ul 08/28/2016 Cbc With Differential Ord2 [place] ABS# 1.1 K/ul 08/28/2016 Cbc With Differential Ord2 Eos ABS# 0.3 K/ul 08/28/2016 Cbc With Differential Ord2 Baso ABS# 0.1 K/ul 08/28/2016 %Hba1C Doo789 % HbA1c 10051- 6 7.6 % 08/28/2016 %Hba1C Hcd631 Gluc Ave 171 mg/dL 08/28/2016 Cbc With Differential Ord2 WBC 7.42 K/ul 05/23/2016 Cbc With Differential Ord2 RBC 4.06 M/ul 05/23/2016 Cbc With Differential Ord2 HGB 12.3 g/dl 05/23/2016 Cbc With Differential Ord2 Neut% 60.6 % 05/23/2016 Cbc With Differential Ord2 HCT 37.1 % 05/23/2016 Cbc With Differential Ord2 Lymph% 23.5 % 05/23/2016 Cbc With Differential Ord2 MCV 91.4 fl 05/23/2016 Cbc With Differential Ord2 [place]% 12.0 % 05/23/2016 Cbc With Differential Ord2 MCH 30.3 pg 05/23/2016 Cbc With Differential Ord2 MCHC 33.2 pg 05/23/2016 Cbc With Differential Ord2 Eos% 3.1 % 05/23/2016 Cbc With Differential Ord2 PLT 244 K/ul 05/23/2016 Cbc With Differential Ord2 Baso% 0.8 % 05/23/2016 Cbc With Differential Ord2 RDW 14.5 % 05/23/2016 Cbc With Differential Ord2 Neut ABS# 4.50 K/ul 05/23/2016 Cbc With Differential Ord2 Lymph ABS# 1.74 K/ul 05/23/2016 Cbc With Differential Ord2 [place] ABS# 0.9 K/ul 05/23/2016 Cbc With Differential Ord2 Eos ABS# 0.2 K/ul 05/23/2016 Cbc With Differential Ord2 Baso ABS# 0.1 K/ul 05/23/2016 Tsh Ord6 hTSH II 3.24 uIU/mL 05/23/2016 %Hba1C Lij869 % HbA1c 31211- 6 7.1 % 05/23/2016 %Hba1C Lee689 Gluc Ave 157 mg/dL 05/23/2016 Lipid Ord30 CHOL 155 mg/dL 05/23/2016 Lipid Ord30 HDL 50.0 mg/dl 05/23/2016 Lipid Ord30 TRIG 159 mg/dL 05/23/2016 Lipid Ord30 LDL 73 mg/dL 05/23/2016 Lipid Ord30 C/HDL 3.1 Ratio 05/23/2016 Comp Metabolic Sly051 NA 137 mEq/L 05/23/2016 Comp Metabolic Nvg424 K 4.3 mEq/L 05/23/2016 Comp Metabolic Jxc287 CL 102 mEq/L 05/23/2016 Comp Metabolic Grz136 CO2 28.0 mEq/L 05/23/2016 Comp Metabolic Bbb302 ANION GAP 11 05/23/2016 Comp Metabolic Mfw772 GLUCOSE 140 mg/dL 05/23/2016 Comp Metabolic Qve492 Creat 0.9 mg/dL 05/23/2016 Comp Metabolic Ldm494 eGFR 93 ml/min/1.73m2 05/23/2016 Comp Metabolic Wir586 BUN 23 mg/dL 05/23/2016 Comp Metabolic Ako389 B/C Ratio 26.7 Ratio 05/23/2016 Comp Metabolic Ifj061 CALCIUM 9.4 mg/dL 05/23/2016 Comp Metabolic Msw193 ALK PHOS 43 U/L 05/23/2016 Comp Metabolic Yju494 AST(SGOT) 23 U/L 05/23/2016 Comp Metabolic Uoj798 ALT(SGPT) 23 U/L 05/23/2016 Comp Metabolic Ovd525 BILI T 0.7 mg/dL 05/23/2016 Comp Metabolic Orf821 ALBUMIN 4.2 g/dL 05/23/2016 Comp Metabolic Kmu904 TPRO 6.8 g/dL 05/23/2016 Comp Metabolic Sno934 GLOB 2.6 g/dL 05/23/2016 Comp Metabolic Bhb233 A/G Ratio 1.6 Ratio 05/23/2016 Comp Metabolic Llu344 Osmo 280 mOsmo 05/23/2016 Cbc With Differential [...] 29.9 pg 01/24/2016 Cbc With Differential Ord2 [place]% 11.1 % 01/24/2016 Cbc With Differential Ord2 Eos% 3.5 % 01/24/2016 Cbc With Differential Ord2 MCHC 33.4 pg 01/24/2016 Cbc With Differential Ord2 Baso% 0.8 % 01/24/2016 Cbc With Differential Ord2 PLT 251 K/ul 01/24/2016 Cbc With Differential Ord2 RDW 14.3 % 01/24/2016 Cbc With Differential Ord2 Neut ABS# 4.18 K/ul 01/24/2016 Cbc With Differential Ord2 Lymph ABS# 1.92 K/ul 01/24/2016 Cbc With Differential Ord2 [place] ABS# 0.8 K/ul 01/24/2016 Cbc With Differential Ord2 Eos ABS# 0.3 K/ul 01/24/2016 Cbc With Differential Ord2 Baso ABS# 0.1 K/ul 01/24/2016 Cbc With Differential Ord2 New Analyzer Notice Please note new ref ranges starting 09-21-2015 due to implemntation of new five part differential hematolgy analyzer. 01/24/2016 Comp Metabolic Pqp529 NA 139 mEq/L 01/24/2016 Comp Metabolic Tzs227 K 4.1 mEq/L 01/24/2016 Comp Metabolic Nhz530 CL 102 mEq/L 01/24/2016 Comp Metabolic Pac999 CO2 29.0 mEq/L 01/24/2016 Comp Metabolic Etv883 ANION GAP 12 01/24/2016 Comp Metabolic Afq706 GLUCOSE 140 mg/dL 01/24/2016 Comp Metabolic Bro601 Creat 0.9 mg/dL 01/24/2016 Comp Metabolic Zdj122 eGFR 87 ml/min/1.73m2 01/24/2016 Comp Metabolic Qhv470 BUN 20 mg/dL 01/24/2016 Comp Metabolic Jra082 B/C Ratio 22.0 Ratio 01/24/2016 Comp Metabolic Xpz349 CALCIUM 9.3 mg/dL 01/24/2016 Comp Metabolic Fqo775 ALK PHOS 46 U/L 01/24/2016 Comp Metabolic Qlt939 AST(SGOT) 23 U/L 01/24/2016 Comp Metabolic Mmn717 ALT(SGPT) 22 U/L 01/24/2016 Comp Metabolic Sdx584 BILI T 0.7 mg/dL 01/24/2016 Comp Metabolic Jnp294 ALBUMIN 4.1 g/dL 01/24/2016 Comp Metabolic Vuj178 TPRO 6.7 g/dL 01/24/2016 Comp Metabolic Qei977 GLOB 2.6 g/dL 01/24/2016 Comp Metabolic Had852 A/G Ratio 1.6 Ratio 01/24/2016 Comp Metabolic Mbp639 Osmo 282 mOsmo 01/24/2016 %Hba1C Ntw532 % HbA1c 82804- 6 6.8 % 01/24/2016 %Hba1C Fxn331 Gluc Ave 148 mg/dL 01/24/2016 Tsh Ord6 hTSH II 3.45 uIU/mL 01/24/2016 Lipid Ord30 CHOL 137 mg/dL 01/24/2016 Lipid Ord30 HDL 47.0 mg/dl 01/24/2016 Lipid Ord30 TRIG 161 mg/dL 01/24/2016 Lipid Ord30 LDL 58 mg/dL 01/24/2016 Lipid Ord30 C/HDL 2.9 Ratio 01/24/2016 Tsh Ord6 hTSH II 3.71 uIU/mL 10/25/2015 %Hba1C Fou996 % HbA1c 50119- 6 7.1 % 10/25/2015 %Hba1C Bdl193 Gluc Ave 157 mg/dL 10/25/2015 Cbc With [...] 30.2 pg 10/25/2015 Cbc With Differential Ord2 [place]% 12.4 % 10/25/2015 Cbc With Differential Ord2 Eos% 4.6 % 10/25/2015 Cbc With Differential Ord2 MCHC 33.3 pg 10/25/2015 Cbc With Differential Ord2 PLT 273 K/ul 10/25/2015 Cbc With Differential Ord2 Baso% 1.2 % 10/25/2015 Cbc With Differential Ord2 Neut ABS# 3.28 K/ul 10/25/2015 Cbc With Differential Ord2 RDW 14.1 % 10/25/2015 Cbc With Differential Ord2 Lymph ABS# 1.69 K/ul 10/25/2015 Cbc With Differential Ord2 [place] ABS# 0.8 K/ul 10/25/2015 Cbc With Differential [...] Ord30 C/HDL 3.2 Ratio 10/25/2015 Comp Metabolic Jwf168 NA 136 mEq/L 10/25/2015 Comp Metabolic Tid316 K 4.0 mEq/L 10/25/2015 Comp Metabolic Zyp435 CL 102 mEq/L 10/25/2015 Comp Metabolic Ura348 CO2 26.0 mEq/L 10/25/2015 Comp Metabolic Maf312 ANION GAP 12 10/25/2015 Comp Metabolic Fci655 GLUCOSE 119 mg/dL 10/25/2015 Comp Metabolic Aim317 Creat 1.1 mg/dL 10/25/2015 Comp Metabolic Lro199 eGFR 69 ml/min/1.73m2 10/25/2015 Comp Metabolic Qcf285 BUN 21 mg/dL 10/25/2015 Comp Metabolic Dlr872 B/C Ratio 18.8 Ratio 10/25/2015 Comp Metabolic Ddt662 CALCIUM 9.5 mg/dL 10/25/2015 Comp Metabolic Jof319 ALK PHOS 49 U/L 10/25/2015 Comp Metabolic Dbl946 AST(SGOT) 29 U/L 10/25/2015 Comp Metabolic Sia683 ALT(SGPT) 28 U/L 10/25/2015 Comp Metabolic Kpg421 BILI T 0.7 mg/dL 10/25/2015 Comp Metabolic Srs328 ALBUMIN 4.2 g/dL 10/25/2015 Comp Metabolic Nxa603 TPRO 6.7 g/dL 10/25/2015 Comp Metabolic Gvj968 GLOB 2.5 g/dL 10/25/2015 Comp Metabolic Mjk432 A/G Ratio 1.7 Ratio 10/25/2015 Comp Metabolic Piz701 Osmo 276 mOsmo 10/25/2015 Sensitivity Report #1 [id number] ORGANISM ESCHERICHIA COLI 10/06/2015 Sensitivity Report #1 [id number] ORG NUMBER 1 10/06/2015 Sensitivity Report #1 [id number] AMIKACIN S 10/06/2015 Sensitivity Report #1 [id number] AMOXICILLIN/CLAV S 10/06/2015 Sensitivity Report #1 [id number] AMPICILLIN/SULBACTAM S 10/06/2015 Sensitivity Report #1 [id number] CEFEPIME S 10/06/2015 Sensitivity Report #1 [id number] CEFOTAXIME S 10/06/2015 Sensitivity Report #1 [id number] AMPICILLIN S 10/06/2015 Sensitivity Report #1 [id number] CEFTAZIDIME S 10/06/2015 Sensitivity Report #1 [id number] CEFAZOLIN S 10/06/2015 Sensitivity Report #1 [id number] CEFTRIAXONE S 10/06/2015 Sensitivity Report #1 [id number] CIPROFLOXACIN S 10/06/2015 Sensitivity Report #1 [id number] GENTAMICIN S 10/06/2015 Sensitivity Report #1 [id number] LEVOFLOXACIN S 10/06/2015 Sensitivity Report #1 [id number] CEFUROXIME S 10/06/2015 Sensitivity Report #1 [id number] MEROPENEM S 10/06/2015 Sensitivity Report #1 [id number] TETRACYCLINE S 10/06/2015 Sensitivity Report #1 [id number] ERTAPENEM S 10/06/2015 Sensitivity Report #1 [id number] TOBRAMYCIN S 10/06/2015 Sensitivity Report #1 [id number] TRIMETH/SULFA S 10/06/2015 Sensitivity Report #1 [id number] IMIPENEM S 10/06/2015 Sensitivity Report #1 [id number] NITROFURANTOIN S 10/06/2015 Sensitivity Report #1 [id number] PIPERACILLIN/TAZO S 10/06/2015 Culture Urine [id number] URINE CULTURE SEE NOTES 10/06/2015 Culture Urine [id number] SOURCE: URINE 10/06/2015 Culture Urine [id number] STATUS: FINAL 10/06/2015 Culture Urine [id number] DATE PLATED: 10/03/2015 10/06/2015 Culture Urine [id number] PRELIMINARY: 10/06/2015 Culture Urine [id number] CULTURE REPORT: 10/06/2015 Urine Culture Ucult Complete >100,000 col/ml aerobic growth sent to ref lab 10/04/2015 Comp Metabolic Qka064 NA 133 mEq/L 07/19/2015 Comp Metabolic Jcv353 K 4.2 mEq/L 07/19/2015 Comp Metabolic Rny779 CL 101 mEq/L 07/19/2015 Comp Metabolic Bys745 CO2 25.0 mEq/L 07/19/2015 Comp Metabolic Yat847 ANION GAP 11 07/19/2015 Comp Metabolic Cze302 GLUCOSE 293 mg/dL 07/19/2015 Comp Metabolic Eur946 Creat 1.0 mg/dL 07/19/2015 Comp Metabolic Cbz516 eGFR 81 ml/min/1.73m2 07/19/2015 Comp Metabolic Ftl889 BUN 19 mg/dL 07/19/2015 Comp Metabolic Szu798 B/C Ratio 19.6 Ratio 07/19/2015 Comp Metabolic Oxp011 CALCIUM 9.4 mg/dL 07/19/2015 Comp Metabolic Wpb362 ALK PHOS 61 U/L 07/19/2015 Comp Metabolic Dux510 AST(SGOT) 32 U/L 07/19/2015 Comp Metabolic Rdd710 ALT(SGPT) 41 U/L 07/19/2015 Comp Metabolic Tmp560 BILI T 0.7 mg/dL 07/19/2015 Comp Metabolic Xoq663 ALBUMIN 4.1 g/dL 07/19/2015 Comp Metabolic Pxe156 TPRO 6.7 g/dL 07/19/2015 Comp Metabolic Jxt601 GLOB 2.6 g/dL 07/19/2015 Comp Metabolic Lgp134 A/G Ratio 1.6 Ratio 07/19/2015 Comp Metabolic Yyp560 Osmo 279 mOsmo 07/19/2015 %Hba1C Rpy025 % HbA1c 20815- 6 9.2 % 07/19/2015 %Hba1C Kui367 Gluc Ave 217 mg/dL 07/19/2015 Cbc With [...] Ord6 hTSH II 2.72 uIU/mL 04/19/2015 %Hba1C Wzz314 % HbA1c 02043- 6 8.6 % 04/19/2015 %Hba1C Ywp721 Gluc Ave 200 mg/dL 04/19/2015 Comp Metabolic Tfj576 NA 139 mEq/L 04/19/2015 Comp Metabolic Qop740 K 4.2 mEq/L 04/19/2015 Comp Metabolic Bgt605 CL 106 mEq/L 04/19/2015 Comp Metabolic Qjp850 CO2 27.0 mEq/L 04/19/2015 Comp Metabolic Sjs929 ANION GAP 10 04/19/2015 Comp Metabolic Zrp997 GLUCOSE 157 mg/dL 04/19/2015 Comp Metabolic Msu880 Creat 0.9 mg/dL 04/19/2015 Comp Metabolic Wzu536 eGFR 84 ml/min/1.73m2 04/19/2015 Comp Metabolic Wem287 BUN 14 mg/dL 04/19/2015 Comp Metabolic Lhh017 B/C Ratio 14.9 Ratio 04/19/2015 Comp Metabolic Lop912 CALCIUM 9.5 mg/dL 04/19/2015 Comp Metabolic Pun149 ALK PHOS 51 U/L 04/19/2015 Comp Metabolic Kol332 AST(SGOT) 28 U/L 04/19/2015 Comp Metabolic Hck584 ALT(SGPT) 29 U/L 04/19/2015 Comp Metabolic Akr910 BILI T 0.6 mg/dL 04/19/2015 Comp Metabolic Dpx855 ALBUMIN 4.1 g/dL 04/19/2015 Comp Metabolic Ocd845 TPRO 6.4 g/dL 04/19/2015 Comp Metabolic Gih689 GLOB 2.3 g/dL 04/19/2015 Comp Metabolic Get241 A/G Ratio 1.8 Ratio 04/19/2015 Comp Metabolic Vzi203 Osmo 281 mOsmo 04/19/2015 Lipid Ord30 CHOL [...] protuberant 10/14/2013 None Full Exam - General 1995 Musculoskeletal [...] tenderness 10/14/2012 None Full Exam - General 1995 Eyes pupils and irises Overall: pupils equal, [...] accomodation 04/09/2012 None Full Exam - General 1995 Respiratory auscultation Overall: breath sounds clear bilaterally 04/09/2012 None Full Exam - General 1995 Respiratory respiratory effort/rhythm Overall: no retractions 04/09/2012 None Full Exam - General 1995 Respiratory respiratory effort/rhythm Overall: normal rate 04/09/2012 [...] VACC NO PRSV 3 YRS+ IM CPT-4: 11769 05/21/2018 ADMIN INFLUENZA VIRUS VAC CPT-4: G0008 05/21/2018 IIV4 VACC NO PRSV 3 YRS+ IM CPT-4: 56729 05/21/2018 ADMIN PNEUMOCOCCAL VACCINE SNOMED CT: 11691761 CPT-4: G0009 05/21/2018 PPPS, SUBSEQ VISIT CPT- 4: G0439 12/24/2017 TRIAMCINOLONE ACET INJ NOS CPT-4: J3301 12/24/2017 DRAIN/INJECT JOINT/BURSA CPT-4: 38755 12/24/2017 REMOVAL OF SKIN TAGS <W/15 CPT-4: 04962 07/02/2017 ADMIN INFLUENZA VIRUS VAC CPT-4: G0008 06/28/2017 FLU VAC NO PRSV 4 DONNA 3 YRS+ CPT-4: 25548 06/28/2017 TRIAMCINOLONE ACET INJ NOS CPT-4: J3301 06/04/2017 PPPS, SUBSEQ VISIT CPT- 4: G0439 12/13/2016 PNEUMOCOCCAL VACC [address]: 47100548 CPT-4: 85862 12/13/2016 ADMIN PNEUMOCOCCAL VACCINE SNOMED CT: 05445836 CPT-4: G0009 12/13/2016 DRAIN/INJECT JOINT/BURSA CPT-4: 39195 08/30/2016 TRIAMCINOLONE ACET INJ NOS CPT-4: J3301 08/30/2016 URINALYSIS NONAUTO W/O SCOPE CPT-4: 26476 07/13/2016 INJ TRIGGER POINT 1/2 MUSCL CPT-4: 61162 06/21/2016 ADMIN INFLUENZA VIRUS VAC CPT-4: G0008 05/24/2016 FLU VACC PRSV FREE INC ANTIG Formatting Model/CDA Sections, Assigned to/Judy Pierre CPT-4: [id number] 05/24/2016 URINALYSIS NONAUTO W/O SCOPE CPT-4: 91438 10/03/2015 ADMIN INFLUENZA VIRUS VAC CPT-4: G0008 07/20/2015 IMMUNIZATION ADMIN CPT- 4: 81778 07/20/2015 FLU VACC PRSV FREE INC ANTIG Formatting Model/CDA Sections, Assigned to/Judy Pierre CPT-4: [id number] 07/20/2015 URINALYSIS NONAUTO W/O SCOPE CPT-4: 71494 05/18/2015 URINALYSIS NONAUTO W/O SCOPE CPT-4: 09915 05/09/2015 ADMIN INFLUENZA VIRUS VAC CPT-4: G0008 06/03/2014 FLU VAC NO PRSV 4 DONNA 3 YRS+ Assigned to/Judy Pierre CPT-4: [id number] 06/03/2014 TRIAMCINOLONE ACET INJ NOS CPT-4: J3301 05/04/2014 ADMIN INFLUENZA VIRUS VAC CPT-4: G0008 07/01/2013 FLULAVAL VACC, 3 YRS & >, IM CPT-4: Q2036 07/01/2013 PRESCRIP TRANSMIT VIA ERX SY CPT-4: G8553 03/04/2013 PRESCRIP TRANSMIT VIA ERX SY CPT-4: G8553 02/04/2013 DRAIN/INJECT JOINT/BURSA CPT-4: 45327 09/25/2012 ADMIN INFLUENZA VIRUS VAC CPT-4: G0008 06/04/2012 FLULAVAL VACC, 3 YRS & >, IM CPT-4: Q2036 06/04/2012 ADMIN PNEUMOCOCCAL VACCINE SNOMED CT: [id number] CPT-4: G0009 06/04/2012 PRESCRIP TRANSMIT VIA ERX SY CPT-4: G8553 04/09/2012 ROCEPHIN, PER 250 MG CPT- 4: J0696 03/04/2012 PRESCRIP TRANSMIT VIA ERX SY CPT-4: G8553 03/04/2012 DESTRUCT PREMALG LESION CPT-4: 25069 07/24/2011 DESTRUCT PREMALG LES 2-14 CPT-4: 53644 07/24/2011 DESTRUCT PREMALG LES 2-14 CPT-4: 00128 07/18/2011 DESTRUCT PREMALG LESION CPT-4: 61482 07/18/2011 Vital Signs Date Vital 07/07/2018 Blood Pressure 1: 140/76 Code: 8480-6 BMI: 45.2 Code: 37859-4 Heart Rate 1: 66 bpm Height: 5'6" SpO2: 98% Weight: 280 lbs 05/21/2018 Blood Pressure 1: 132/74 Code: 8480-6 Blood Pressure 1: 164/78 Code: 8480-6 BMI: 44.5 Code: 64102-1 Heart Rate 1: 63 bpm Height: 5'6" SpO2: 96% Weight: 276 lbs 03/06/2018 Blood Pressure 1: 140/80 Code: 8480-6 BMI: 45.6 Code: 94448-9 Heart Rate 1: 94 bpm Height: 5'6" SpO2: 96% Weight: 282 lbs 4 oz 12/24/2017 Blood Pressure 1: 148/72 Code: 8480-6 BMI: 44.7 Code: 60198-2 Heart Rate 1: 70 bpm Height: 5'6" SpO2: 95% Waist Measure (cm): 132 cm Weight: 277 lbs 11/21/2017 Blood Pressure 1: 134/76 Code: 8480-6 BMI: 44.4 Code: 88886-0 Heart Rate 1: 63 bpm Height: 5'6" SpO2: 97% Weight: 275 lbs 07/29/2017 Blood Pressure 1: 148/76 Code: 8480-6 BMI: 43.7 Code: 46787-7 Heart Rate 1: 75 bpm Height: 5'6" SpO2: 97% Weight: 275 lbs 07/02/2017 Blood Pressure 1: 148/78 Code: 8480-6 BMI: 43.4 Code: 46499-4 Heart Rate 1: 55 bpm Height: 5'6" SpO2: 97% Weight: 273 lbs 06/04/2017 Blood Pressure 1: 132/58 Code: 8480-6 BMI: 43.1 Code: 14018-3 Heart Rate 1: 64 bpm Height: 5'6" SpO2: 96% Weight: 271 lbs 04/03/2017 Blood Pressure 1: 124/70 Code: 8480-6 BMI: 44.2 Code: 72717-4 Heart Rate 1: 70 bpm Height: 5'6" Height: 5'6" SpO2: 95% Weight: 278 lbs 12/13/2016 Blood Pressure 1: 150/78 Code: 8480-6 BMI: 44.2 Code: 52700-8 Heart Rate 1: 67 bpm Height: 5'6" SpO2: 97% Weight: 278 lbs 12/05/2016 Blood Pressure 1: 122/80 Code: 8480-6 Blood Pressure 1: 126/90 Code: 8480-6 BMI: 44.2 Code: 88156-3 Heart Rate 1: 70 bpm Height: 5'6" SpO2: 97% Weight: 278 lbs 08/30/2016 Blood Pressure 1: 134/78 Code: 8480-6 Blood Pressure 1: 134/70 Code: 8480-6 BMI: 43.9 Code: 74959-0 Heart Rate 1: 62 bpm Height: 5'6" SpO2: 98% Weight: 276 lbs 07/13/2016 Blood Pressure 1: 140/68 Code: 8480-6 BMI: 43.2 Code: 48956-4 Heart Rate 1: 59 bpm Height: 5'6" SpO2: 96% Weight: 272 lbs 06/21/2016 Blood Pressure 1: 140/70 Code: 8480-6 BMI: 43.2 Code: 14225-4 Heart Rate 1: 70 bpm Height: 5'6" SpO2: 94% Weight: 272 lbs 05/24/2016 Blood Pressure 1: 138/72 Code: 8480-6 Blood Pressure 1: 138/70 Code: 8480-6 BMI: 43.2 Code: 20402-5 Heart Rate 1: 65 bpm Height: 5'6" SpO2: 97% Weight: 272 lbs 01/24/2016 Blood Pressure 1: 122/62 Code: 8480-6 BMI: 43.1 Code: 38287-1 Heart Rate 1: 61 bpm Height: 5'6" SpO2: 97% Weight: 271 lbs 10/27/2015 Blood Pressure 1: 122/64 Code: 8480-6 BMI: 42.4 Code: 81006-4 Heart Rate 1: 58 bpm Height: 5'6" SpO2: 97% Weight: 267 lbs 09/21/2015 Blood Pressure 1: 128/70 Code: 8480-6 BMI: 43.2 Code: 68016-0 Heart Rate 1: 65 bpm Height: 5'6" SpO2: 98% Weight: 272 lbs 08/17/2015 Blood Pressure 1: 120/64 Code: 8480-6 BMI: 44.8 Code: 58759-0 Heart Rate 1: 57 bpm Height: 5'6" SpO2: 97% Weight: 282 lbs 07/20/2015 Blood Pressure 1: 144/70 Code: 8480-6 BMI: 45.3 Code: 62215-1 Heart Rate 1: 67 bpm Height: 5'6" SpO2: 95% Weight: 285 lbs 05/09/2015 Blood Pressure 1: 180/60 Code: 8480-6 Blood Pressure 2: 140/80 Code: 8480-6 04/20/2015 Blood Pressure 1: 138/64 Code: 8480-6 BMI: 45.6 Code: 78114-0 Heart Rate 1: 60 bpm Height: 5'6" SpO2: 98% Weight: 287 lbs 02/28/2015 Blood Pressure 1: 142/78 Code: 8480-6 BMI: 45.8 Code: 12493-6 Heart Rate 1: 68 bpm Height: 5'6" Weight: 288 lbs 02/14/2015 Blood Pressure 1: 142/78 Code: 8480-6 BMI: 45.3 Code: 67544-7 Heart Rate 1: 88 bpm Height: 5'6" Weight: 285 lbs 11/11/2014 Blood Pressure 1: 152/72 Code: 8480-6 Heart Rate 1: 64 bpm Weight: 282 lbs 10/04/2014 Blood Pressure 1: 140/72 Code: 8480-6 BMI: 45.6 Code: 49350-7 Heart Rate 1: 76 bpm Height: 5'6" Weight: 287 lbs 08/02/2014 Blood Pressure 1: 132/62 Code: 8480-6 BMI: 45.6 Code: 94429-6 Heart Rate 1: 64 bpm Height: 5'6" Weight: 287 lbs 06/15/2014 Blood Pressure 1: 142/62 Code: 8480-6 BMI: 44.7 Code: 03333-5 Heart Rate 1: 68 bpm Height: 5'6" SpO2: 97% Weight: 281 lbs 05/04/2014 Blood Pressure 1: 140/78 Code: 8480-6 BMI: 45.0 Code: 29141-0 Heart Rate 1: 60 bpm Height: 5'6" SpO2: 98% Weight: 283 lbs 04/19/2014 Blood Pressure 1: 130/62 Code: 8480-6 BMI: 44.7 Code: 04610-2 Heart Rate 1: 56 bpm Height: 5'6" Weight: 281 lbs 02/08/2014 Blood Pressure 1: 118/58 Code: 8480-6 BMI: 45.3 Code: 98863-1 Heart Rate 1: 60 bpm Height: 5'6" Weight: 285 lbs 01/13/2014 Blood Pressure 1: 112/52 Code: 8480-6 BMI: 44.2 Code: 69583-3 Heart Rate 1: 60 bpm Height: 5'6" Weight: 278 lbs 10/14/2013 Blood Pressure 1: 132/70 Code: 8480-6 BMI: 43.1 Code: 70290-7 Heart Rate 1: 60 bpm Height: 5'6" Weight: 271 lbs 07/01/2013 Blood Pressure 1: 158/76 Code: 8480-6 Heart Rate 1: 52 bpm Weight: 263 lbs 05/13/2013 Weight: 268 lbs 04/15/2013 Weight: 272 lbs 03/04/2013 Blood Pressure 1: 146/68 Code: 8480-6 BMI: 45.6 Code: 16607-7 Heart Rate 1: 68 bpm Height: 5'6" Weight: 287 lbs 02/04/2013 Blood Pressure 1: 140/68 Code: 8480-6 BMI: 46.1 Code: 05150-7 Heart Rate 1: 64 bpm Height: 5'6" Weight: 290 lbs 12/03/2012 Blood Pressure 1: 124/62 Code: 8480-6 BMI: 44.8 Code: 19618-2 Heart Rate 1: 64 bpm Height: 5'6" [...] 1: 146/76 Code: 8480-6 BMI: 44.7 Code: 44060-2 Heart Rate 1: 60 bpm Height: 5'6" Weight: 281 lbs 06/25/2012 Blood Pressure 1: 128/76 Code: 8480-6 BMI: 43.7 Code: 58162-5 Heart Rate 1: 72 bpm Height: 5'6" Weight: 275 lbs 06/03/2012 Blood Pressure 1: 136/62 Code: 8480-6 BMI: 43.2 Code: 97572-9 Heart Rate 1: 72 bpm Height: 5'6" Respiratory Rate: 20 bpm Weight: 272 lbs 04/24/2012 Blood Pressure 1: 116/60 Code: 8480-6 BMI: 42.3 Code: 84922-1 Heart Rate 1: 68 bpm Height: 5'6" Respiratory Rate: 16 bpm Weight: 266 lbs 04/09/2012 Blood Pressure 1: 150/82 Code: 8480-6 Heart Rate 1: 72 bpm Weight: 03/04/2012 Blood Pressure 1: 124/70 Code: 8480-6 Heart Rate 1: 72 bpm Respiratory Rate: 16 bpm Weight: 277 lbs 12/03/2011 Blood Pressure 1: 120/60 Code: 8480-6 BMI: 44.8 Code: 77283-9 Heart Rate 1: 68 bpm Height: 5'6" Respiratory Rate: 16 bpm Weight: 282 lbs 10/31/2011 Blood Pressure 1: 120/60 Code: 8480-6 BMI: 44.8 Code: 81568-0 Heart Rate 1: 74 bpm Height: 5'6" Respiratory Rate: 16 bpm Weight: 282 lbs 08/29/2011 Blood Pressure 1: 152/76 Code: 8480-6 BMI: 44.5 Code: 89363-6 Heart Rate 1: 66 bpm Height: 5'6" Respiratory Rate: 16 bpm Weight: 280 lbs 07/24/2011 Blood Pressure 1: 142/80 Code: 8480-6 BMI: 44.8 Code: 90544-5 Heart Rate 1: 66 bpm Height: 5'6" Respiratory Rate: 16 bpm Weight: 282 lbs 07/18/2011 Blood Pressure 1: 136/60 Code: 8480-6 BMI: 44.5 Code: 92734-1 Heart Rate 1: 72 bpm Height: 5'6" [...] when he could not remember what the automatic driller and reamer was talking about at [facility] - pt states that he has had [...] Present Encounters Encounter Performer Location Codes Date ) 46020 EST. PATIENT, LEVEL IV Diagnosis: Type 2 diabetes mellitus with hyperglycemia[ICD10: E11.65] Diagnosis: Essential (primary) hypertension[ICD10: I10] Diagnosis: Low back pain[ICD10: M54.5] Maria Victoria Harrell MD, [facility] CPT-4: 47359 07/07/2018 [id number]) 04146 EST. PATIENT, LEVEL IV Diagnosis: Encounter for immunization[ICD10: Z23] Diagnosis: Encounter for immunization[ICD10: Z23] Diagnosis: Type 2 diabetes mellitus with diabetic polyneuropathy[ICD10: E11.42] Diagnosis: Essential (primary) hypertension[ICD10: I10] Maria Victoria Harrell MD, [facility] CPT-4: 52030 05/21/2018 [id number]) 63129 EST. PATIENT, LEVEL IV Diagnosis: Type 2 diabetes mellitus with hyperglycemia[ICD10: E11.65] Diagnosis: Essential (primary) hypertension[ICD10: I10] Diagnosis: Essential tremor[ICD10: G25.0] Diagnosis: Type 2 diabetes mellitus with diabetic polyneuropathy[ICD10: E11.42] Diagnosis: Other obesity due to excess calories[ICD10: E66.09] Maria Victoria Harrell MD, [facility] CPT-4: 79452 03/06/2018 [id number]) 20435 EST. PATIENT, LEVEL IV Diagnosis: Type 2 diabetes mellitus with hyperglycemia[ICD10: E11.65] Diagnosis: Essential (primary) hypertension[ICD10: I10] Diagnosis: Arthralgia of bilateral temporomandibular joint[ICD10: M26.623] Maria Victoria Harrell MD, [facility] CPT-4: 59443 11/21/2017 [id number]) 08694 EST. PATIENT, LEVEL IV Diagnosis: Type 2 diabetes mellitus without complications[ICD10: E11.9] Diagnosis: Essential (primary) hypertension[ICD10: I10] Diagnosis: Mixed hyperlipidemia[ICD10: E78.2] Maria Victoria Harrell MD, [facility] CPT- 4: 13336 07/29/2017 ([id number] 73876 EST. PATIENT, LEVEL III Diagnosis: Lumbago with sciatica, right side[ICD10: M54.41] Sunitha Harrell MD, [facility] CPT-4: 59183 06/04/2017 ([id number]) 52262 EST. PATIENT, LEVEL IV Diagnosis: Essential (primary) hypertension[ICD10: I10] Diagnosis: Type 2 diabetes mellitus with diabetic polyneuropathy[ICD10: E11.42] Diagnosis: Cough[ICD10: R05] Diagnosis: Palpitations[ICD10: R00.2] Maria Victoria Harrell MD, [facility] CPT-4: 13733 04/03/2017 ([id number]) 85428 EST. PATIENT, LEVEL IV Diagnosis: Essential (primary) hypertension[ICD10: I10] Diagnosis: Type 2 diabetes mellitus without complications[ICD10: E11.9] Maria Victoria Harrell MD, [facility] CPT-4: 47286 12/05/2016 ([id number]) 61451 EST. PATIENT, LEVEL IV Diagnosis: Essential (primary) hypertension[ICD10: I10] Diagnosis: Type 2 diabetes mellitus with hyperglycemia[ICD10: E11.65] Diagnosis: Morbid (severe) obesity due to excess calories[ICD10: E66.01] Diagnosis: Essential tremor[ICD10: G25.0] Diagnosis: Pain in right hip[ICD10: M25.551] Maria Victoria Harrell MD, [facility] CPT- 4: 36864 08/30/2016 ([id number]) 81854 EST. PATIENT, LEVEL III Diagnosis: Pain in left forearm[ICD10: M79.632] Diagnosis: Dysuria[ICD10: R30.0] Sunitha Harrell MD, [facility] CPT-4: 86888 07/13/2016 ([id number]) 90389 EST. PATIENT, LEVEL III Diagnosis: Type 2 diabetes mellitus with hyperglycemia[ICD10: E11.65] Diagnosis: Essential tremor[ICD10: G25.0] Diagnosis: Encounter for immunization[ICD10: Z23] Diagnosis: Essential (primary) hypertension[ICD10: I10] Maria Victoria Harrell MD [facility] CPT-4: 73788 05/24/2016 ([id number]) 59645 EST. PATIENT, LEVEL IV Diagnosis: Type 2 diabetes mellitus with hyperglycemia[ICD10: E11.65] Diagnosis: Essential (primary) hypertension[ICD10: I10] Diagnosis: Dorsalgia, unspecified[ICD10: M54.9] Maria Victoria Harrell MD, [facility] CPT- 4: 93871 01/24/2016 ([id number]) 50678 EST. PATIENT, LEVEL IV Diagnosis: Type 2 diabetes mellitus with hyperglycemia[ICD10: E11.65] Diagnosis: Essential (primary) hypertension[ICD10: I10] Diagnosis: Dorsalgia, unspecified[ICD10: M54.9] Maria Victoria Harrell MD [facility] CPT- 4: 95417 10/27/2015 ([id number]) 87642 EST. PATIENT, LEVEL III Diagnosis: Type 2 diabetes mellitus with hyperglycemia[ICD10: E11.65] Maria Victoria Harrell MD [facility] CPT-4: 34726 09/21/2015 ([id number]) 68344 EST. PATIENT, LEVEL IV Diagnosis: Type 2 diabetes mellitus with hyperglycemia[ICD10: E11.65] Diagnosis: Essential (primary) hypertension[ICD10: I10] Maria Victoria Harrell MD [facility] CPT-4: 12222 08/17/2015 ([id number]) 26996 EST. PATIENT, LEVEL IV Diagnosis: VACCIN FOR INFLUENZA[ICD10: Z23] Diagnosis: Type 2 diabetes mellitus with hyperglycemia[ICD10: E11.65] Diagnosis: Morbid (severe) obesity due to excess calories[ICD10: E66.01] Diagnosis: Dorsalgia, unspecified[ICD10: M54.9] Maria Victoria Harrell MD [facility] CPT- 4: 50888 07/20/2015 ([id number]) 65182 EST. PATIENT, LEVEL IV Diagnosis: Diabetes mellitus type 2, uncontrolled[ICD9: 250.02] Diagnosis: ESSENTIAL HYPERTENSION[ICD9: 401.9] Diagnosis: MORBID OBESITY[ICD9: 278.01] Diagnosis: Peripheral neuropathic pain[ICD9: 356.9] Diagnosis: Diabetic neuropathy[ICD9: 250.60] Maria Victoria Harrell MD [facility] CPT- 4: 08841 04/20/2015 ([id number]) Miscellaneous no charge Diagnosis: Cerumen impaction[ICD9: 380.4] Maria Victoria Harrell MD [facility] CPT-4: 47546 02/28/2015 ([id number]) 15033 EST. PATIENT, LEVEL IV Diagnosis: Diabetes mellitus type 2, uncontrolled[ICD9: 250.02] Diagnosis: ESSENTIAL HYPERTENSION[ICD9: 401.9] Maria Victoria Harrell MD [facility] CPT- 4: 56636 02/14/2015 ([id number]) 65277 EST. PATIENT, LEVEL III Diagnosis: Diabetes mellitus type 2, uncontrolled[ICD9: 250.02] Maria Victoria Harrell MD [facility] CPT-4: 19457 11/11/2014 ([id number]) 24501 EST. PATIENT, LEVEL IV Diagnosis: ESSENTIAL HYPERTENSION[ICD9: 401.9] Diagnosis: DIABETES TYPE II[ICD9: 250.00] Diagnosis: Esophageal reflux[ICD9: 530.81] Diagnosis: DYSPHAGIA NEC[ICD9: 787.29] Maria Victoria Harrell MD, [facility] CPT-4: 09363 10/04/2014 ([id number]) 48277 EST. PATIENT, LEVEL IV Diagnosis: DIABETES TYPE II[ICD9: 250.00] Diagnosis: ESSENTIAL HYPERTENSION[ICD9: 401.9] Diagnosis: BPH (benign prostatic hyperplasia)[ICD9: 600.00] Maria Victoria Harrell MD [facility] CPT-4: 06459 08/02/2014 ([id number]) 05994 EST. PATIENT, LEVEL III Diagnosis: Enlarged prostate[ICD9: 600.00] Maria Victoria Harrell MD [facility] CPT-4: 09869 06/15/2014 ([id number]) 43780 EST. PATIENT, LEVEL III Diagnosis: Right hip pain[ICD9: 719.45] Diagnosis: BACKACHE[ICD9: 724.5] Diagnosis: Sacroiliitis[ICD9: 720.2] Sunitha Harrell MD, [facility] CPT-4: 20342 05/04/2014 ([id number]) 83231 EST. PATIENT, LEVEL IV Diagnosis: DM W/O COMPLICATION TYPE II, UNCONTROLLED[ICD9: 250.02] Diagnosis: ESSENTIAL HYPERTENSION[ICD9: 401.9] Maria Victoria Harrell MD [facility] CPT- 4: 17780 04/19/2014 ([id number]) 20463 EST. PATIENT, LEVEL IV Diagnosis: Mild cognitive impairment[ICD9: 331.83] Diagnosis: Nightmares[ICD9: 307.47] Diagnosis: Sleep apnea[ICD9: 780.57] Maria Victoria Harrell MD [facility] CPT-4: 78452 02/08/2014 [id number]) 93497 EST. PATIENT, LEVEL III Diagnosis: DM W/O COMPLICATION TYPE II, UNCONTROLLED[ICD9: 250.02] Maria Victoria Harrell MD [facility] CPT-4: 57695 01/13/2014 ([id number]) 68240 EST. 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 PATIENT, LEVEL IV Diagnosis: DIABETES TYPE II[SNOMED: 819682637] Diagnosis: ESSENTIAL HYPERTENSION[SNOMED: 34337428] Diagnosis: Flat feet[ICD9: 734] Maria Victoria Harrell MD [facility] CPT-4: 05229 07/01/2013 ([id number]) Miscellaneous no charge Diagnosis: DM W/O COMPLICATION TYPE II, UNCONTROLLED[SNOMED: 11575779] Diagnosis: MORBID OBESITY[ICD9: 278.01] Maria Victoria Harrell MD [facility] CPT-4: 24265 05/13/2013 ([id number]) Miscellaneous no charge Diagnosis: MORBID OBESITY[ICD9: 278.01] Maria Victoria Harrell MD [facility] CPT-4: 88916 04/15/2013 ([id number]) 51454 EST. PATIENT, LEVEL III Diagnosis: DM W/O COMPLICATION TYPE II, UNCONTROLLED[SNOMED: 15877416] Diagnosis: Dietary restriction[ICD9: V65.3] Diagnosis: Morbid obesity with BMI of 40.0-44.9, adult[ICD9: 278.01] Maria Victoria Harrell MD, [facility] CPT-4: 15715 03/04/2013 ([id number]) 25687 EST. PATIENT, LEVEL IV Diagnosis: DM W/O COMPLICATION TYPE II, UNCONTROLLED[SNOMED: 41758258] Diagnosis: ENTHESOPATHY OF HIP[ICD9: 726.5] Diagnosis: BACKACHE[ICD9: 724.5] Maria Victoria Harrell MD, [facility] CPT-4: 39201 02/04/2013 ([id number]) 96303 EST. PATIENT, LEVEL III Diagnosis: DM W/O COMPLICATION TYPE II, UNCONTROLLED[SNOMED: 07161002] Maria Victoria Harrell MD, [facility] CPT-4: 22110 12/03/2012 ([id number]) 77952 EST. PATIENT, LEVEL III Diagnosis: Tinnitus[ICD9: 388.30] Diagnosis: Cerumen impaction[ICD9: 380.4] Sunitha Harrell MD, [facility] CPT-4: 36221 10/14/2012 ([id number]) 89937 EST. PATIENT, LEVEL III Diagnosis: ENTHESOPATHY OF HIP[ICD9: 726.5] Diagnosis: JOINT PAIN-PELVIS[ICD9: 719.45] Maria Victoria Harrell MD, [facility] CPT-4: 69426 09/29/2012 95801 EST. PATIENT, LEVEL II Diagnosis: Right hip pain[ICD9: 719.45] Diagnosis: Bursitis of hip, right[ICD9: 726.5] Diagnosis: DM W/O COMPLICATION TYPE II, UNCONTROLLED[SNOMED: 47831189] Sunitha Harrell MD, [facility] CPT-4: 94179 09/25/2012 ([id number]) 56943 EST. PATIENT, LEVEL III Diagnosis: DM W/O COMPLICATION TYPE II, UNCONTROLLED[SNOMED: 98488165] Maria Victoria Harrell MD, [facility] CPT-4: 50074 08/27/2012 ([id number]) 86254 EST. PATIENT, LEVEL III Diagnosis: Diabetes mellitus out of control[SNOMED: 34619058] Maria Victoria Harrell MD [facility] CPT-4: 30864 06/25/2012 ([id number]) 18411 EST. PATIENT, LEVEL III Diagnosis: DM W/O COMPLICATION TYPE II, UNCONTROLLED[SNOMED: 54207518] Diagnosis: ESSENTIAL HYPERTENSION[SNOMED: 70954986] Maria Victoria Harrell MD [facility] CPT-4: 19360 06/03/2012 ([id number]) 28811 EST. PATIENT, LEVEL III Diagnosis: DM W/O COMPLICATION TYPE II, UNCONTROLLED[SNOMED: 55476848] Diagnosis: Back pain[ICD9: 724.5] Maria Victoria Harrell MD [facility] CPT-4: 90813 04/24/2012 ([id number]) 52702 EST. PATIENT, LEVEL IV Diagnosis: BACKACHE[ICD9: 724.5] Diagnosis: MORBID OBESITY[ICD9: 278.01] Diagnosis: Depression[ICD9: 311] Maria Victoria Harrell MD [facility] CPT-4: 83049 04/09/2012 ([id number]) 57300 EST. PATIENT, LEVEL IV Diagnosis: Diabetes mellitus type 2, uncontrolled[SNOMED: 56440389] Diagnosis: ESSENTIAL HYPERTENSION[SNOMED: 86509206] Maria Victoria Harrell MD [facility] CPT-4: 33059 03/04/2012 ([id number]) 04873 EST. PATIENT, LEVEL IV Diagnosis: DM W/O COMPLICATION TYPE II, UNCONTROLLED[SNOMED: 99765507] Diagnosis: MORBID OBESITY[ICD9: 278.01] Maria Victoria Harrell MD [facility] CPT-4: 03854 12/03/2011 ([id number]) 75575 EST. PATIENT, LEVEL IV Diagnosis: DM W/O COMPLICATION TYPE II, UNCONTROLLED[SNOMED: 57421243] Diagnosis: ESSENTIAL HYPERTENSION[SNOMED: 68810702] Diagnosis: Hyperlipidemia[ICD9: 272.4] Diagnosis: Morbid obesity[ICD9: 278.01] Maria Victoria Harrell MD [facility] CPT-4: 01108 10/31/2011 ([id number]) 62890 EST. PATIENT, LEVEL IV Diagnosis: ESSENTIAL HYPERTENSION[SNOMED: 72934044] Diagnosis: DM W/O COMPLICATION TYPE II, UNCONTROLLED[SNOMED: 09757082] Diagnosis: MORBID OBESITY[ICD9: 278.01] Maria Victoria Harrell MD, [facility] CPT-4: 25962 08/29/2011 06702 EST. PATIENT, LEVEL IV Diagnosis: Diabetes mellitus type 2, uncontrolled[SNOMED: 35156396] Diagnosis: ESSENTIAL HYPERTENSION[SNOMED: 92978742] Diagnosis: Actinic keratosis[ICD9: 702.0] Maria Victoria Harrell MD, [facility] CPT-4: 61952 07/18/2011 Plan of Care Planned Activity Notes Codes Status Date Visit Plan: Hypertension - well controlled - [...] would like to consider Dr. Mai 07/07/2018 Patient Education: Patient Medication Summary Completed [...] 05/21/2018 Appointment: [phone] [place] (15 min) Moderate 05/21/2018 Patient Education: Patient [...] restriction. 03/06/2018 Appointment: [facility] Victoria [phone] [place] (15 min) Moderate 03/06/2018 Patient Education: Patient Medication Summary Completed 03/06/2018 Patient Education: Obesity Completed 03/06/2018 Patient Education: Patient Medication Summary Completed 03/03/2018 Care Plan: %Hba1C LOINC : 33111-5 Pending 03/03/2018 Visit Plan: Medicare Exam - [...] Completed 12/24/2017 Appointment: Sunitha Moran WPtel: [phone] [phone] - Annual Wellness Visit 12/19/2017 Visit Plan: [...] 11/21/2017 Appointment: Maria Victoria Harrell WPtel: [phone] [facility] (15 min) Moderate 11/21/2017 Patient Education: Patient [...] medications. 07/29/2017 Appointment: Maria Victoria Harrell [facility] [place] (15 min) Moderate 07/29/2017 Patient Education: Patient Medication Summary Completed 07/29/2017 Patient Education: Obesity Completed 07/29/2017 Visit Plan: Skin tag removed - pt tolerated procedure well - Wound Instructions - Pt was instructed to keep the wound clean, wash with antibacterial soap, use triple antibiotic ointment, call if redness, pustular drainage, or any other acute concerns. 07/02/2017 Appointment: [facility]illo [facility] ([facility] min) Complex 07/02/2017 Patient Education: Patient Medication Summary Completed 07/02/2017 Appointment: Injection 06/28/2017 Patient Education: Patient Medication Summary Completed 06/28/2017 Visit Plan: Sciatica- exercises discussed with the patient, pt to continue with antiinflammatories. Pt is to call if the symptoms do not improve or if they worsen. Kenalog injection today in the office. 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 Hypertension - well controlled - continue with current medications, continue with no added salt diet. Pt has been encouraged to exercise daily. The pt has been advised to call the office if there are any acute concerns about change in blood pressure readings at home. 04/03/2017 Appointment: Maria Victoria Harrell [facility]el[facility] [phone] [facility] [id number] (15 min) Moderate 04/03/2017 Patient Education: Patient [...] care surrogate. 12/13/2016 Appointment: Sunith[facility] Moran [facility]el[facility] [phone] [phone] [facility] - Annual Wellness Visit 12/13/2016 Patient Education: Patient Medication Summary Completed 12/13/2016 Care Plan: Referral Order SNOMED-CT : [id number] Pending 12/13/2016 Visit Plan: Hypertension - well [...] 12/05/2016 Appointment: Maria Victoria Harrell [facility] [phone] [facility] [id number] (15 min) Moderate 12/05/2016 Patient Education: Patient Medication Summary Completed 12/05/2016 Patient Education: Obesity Completed 12/05/2016 Care Plan: CT ABD & PELVIS W/O CONTRAST LOINC : 30864-6 Pending 12/05/2016 Patient Education: Patient Medication Summary [...] 08/30/2016 Appointment: Maria Victoria Harrell WPtel: [phone] [facility] [place] (15 min) Moderate 08/30/2016 Patient Education: Patient Medication Summary Completed 08/30/2016 Patient Education: Obesity Completed 08/30/2016 Patient Education: Hypertension Completed 08/30/2016 Patient Education: Patient Medication Summary Completed 08/23/2016 Visit Plan: Left forearm pain-use voltaren gel as needed-xray forearm for further evaluation UA negative-patient instructed to increase po fluids-call if symptoms do not resolve 07/13/2016 Appointment: Sunitha Moran WPtel: [facility]5 [phone] [place] (10 min) Simple 07/13/2016 Patient Education: [...] disease process. 06/21/2016 Appointment: Sunitha Moran WPtel: [facility]8 [phone] [place] (30 min) Complex 06/21/2016 Patient Education: Patient Medication Summary Completed 06/21/2016 Appointment: [phone] [place] ([place] min) Complex 06/15/2016 Visit Plan: [...] improve. 01/24/2016 Appointment: [facility] [place] ([place]) Moderate 01/24/2016 Patient Education: Patient [...] improve. 10/27/2015 Appointment: Maria Victoria Harrell WPtel: [address] [place], [place] [id number] (15 min) Moderate 10/27/2015 Patient Education: Patient [...] insurance how much this will cost you custodial decrease toujeo to 40 units daily increase novolin to 8units in the morning, 10 units at lunch and 8 units at supper 09/21/2015 Appointment: Maria Victoria [phone] [place] (15 min) Moderate 09/21/2015 Patient Education: Patient [...] 08/17/2015 Appointment: [facility] Victoria [facility] [place] (15 min) Moderate 08/17/2015 Patient Education: Patient [...] 07/20/2015 Appointment: Maria Victoria Harrell WPtel: [facility] [place] [place] (15 min) Moderate 07/20/2015 Patient Education: [...] shoes. 04/20/2015 Appointment: Maria Victoria Harrell WPtel: [facility] [place] (15 min) Moderate 04/20/2015 Patient Education: Patient [...] 02/14/2015 Appointment: Maria Victoria Harrell WPtel: [phone] [facility] Follow up 02/14/2015 Patient Education: Patient Medication [...] 11/11/2014 Appointment: Maria Victoria Harrell WPtel: [phone] [facility] Follow up 11/11/2014 Patient Education: Patient Medication Summary Completed 11/11/2014 Appointment: Maria Victoria Harrell WPtel: [phone] [facility] Follow up 11/04/2014 Visit Plan: Esophageal Reflux [...] home. 10/04/2014 Appointment: Maria Victoria Harrell WPtel: [facility]5 [facility] Follow up 10/04/2014 Patient Education: Patient Medication Summary Completed 10/04/2014 Patient Education: Hypertension Completed 10/04/2014 Appointment: Maria Victoria Harrell WPtel: [address] [place], [place] [id number] Follow up 08/19/2014 Visit Plan: Diabetes Mellitus [...] avodart 08/02/2014 Appointment: Maria Victoria Harrell WPtel: [address] [place], [place] [phone] Sick 08/02/2014 Patient Education: Patient Medication Summary Completed 08/02/2014 Patient Education: Hypertension Completed 08/02/2014 Visit Plan: Enlarged prostate with decreased urine flow - recommended that the patient start on tamsulosin 0.4mg daily - will need to start him on this in about 2-3 weeks. Check PSA in 2-3 weeks. 06/15/2014 Appointment: Maria Victoria Harrell WPtel: [facility] Follow up 06/15/2014 Patient Education: Patient Medication Summary Completed 06/15/2014 Appointment: Maria Victoria Harrell [facility]Ptel[phone] [place] [place] Injection 06/03/2014 Patient Education: Patient Medication [...] - pt to see this Opthamologist in [place] - May 25. 04/19/2014 Appointment: Maria Victoria Harrell [facility]Ptel[phone] [place] Follow up 04/19/2014 Patient Education: Patient Medication [...] settings. 02/08/2014 Appointment: Maria Victoria Harrell [facility]Ptel[phone] Follow up 02/08/2014 Patient Education: Patient Medication [...] 01/13/2014 Appointment: Maria Victoria Harrell [facility]Ptel[facility] Follow up 01/13/2014 Patient Education: Patient Medication [...] - recommended referral to Dr. Fine at [facility] [place]. 10/14/2013 Patient Education: Patient [...] support. 07/01/2013 Appointment: Maria Victoria Harrell WPtel: [phone] [facility] Follow up 07/01/2013 Patient Education: Patient Medication Summary Completed 07/01/2013 Patient Education: Hypertension Completed 07/01/2013 Appointment: Maria Victoria Harrell WPtel: [facility] [place] Other 05/13/2013 Patient Education: Patient Medication Summary Completed 05/13/2013 Appointment: Maria Victoria Harrell WPtel: 101 [facility] Other 04/15/2013 Patient Education: Patient Medication Summary [...] loss. 03/04/2013 Appointment: Maria Victoria Harrell WPtel: [phone] [facility] Follow up 03/04/2013 Patient Education: Patient Medication [...] body. 02/04/2013 Appointment: Maria Victoria Harrell WPtel: [address] [place], [place] [phone] Follow up 02/04/2013 Patient Education: Patient Medication [...] bedtime. 12/03/2012 Appointment: Maria Victoria Harrell WPtel: [facility]5 [facility] Follow up 12/03/2012 Patient Education: Patient Medication Summary Completed 12/03/2012 Visit Plan: Tinnitus-cerumen impaction-cerumen adhered to left TM-discussed using sweet oil nightly for the next week and call if symptoms have not improved. Patient verbalized understanding of plan . 10/14/2012 Appointment: Sunitha Moran WPtel: [phone] [phone] Sick 10/14/2012 Patient Education: Patient Medication Summary Completed 10/14/2012 Visit Plan: Arthritis- occasionally uncontrolled symptoms- recommend pt to take antiinflammatory as directed for pain control. Use tylenol for break through pain symptoms. 09/29/2012 Appointment: Maria Victoria Harrell WPtel: [phone] [facility] [place] Other 09/29/2012 Patient Education: Patient Medication [...] sugars 09/25/2012 Appointment: Sunitha Moran WPtel: [address] [phone] [place] [address] Other 09/25/2012 Patient Education: Patient Medication Summary [...] DAILY. 08/27/2012 Appointment: Maria Victoria Harrell WPtel: [phone] [facility] Follow up 08/27/2012 Patient Education: Patient Medication [...] 06/25/2012 Appointment: Maria Victoria Harrell WPtel: [phone] [facility] Follow up 06/25/2012 Patient Education: Patient Medication [...] 06/03/2012 Appointment: Maria Victoria Harrell WPtel: [phone] [facility] Follow up 06/03/2012 Patient Education: Patient Medication [...] pain. 04/24/2012 Appointment: Maria Victoria Harrell WPtel: [phone] [facility] Follow up 04/24/2012 Patient Education: Patient Medication [...] improve. 04/09/2012 Appointment: Maria Victoria Harrell WPtel: [phone] [facility] [place] Other 04/09/2012 Patient Education: Patient Medication Summary Completed 04/09/2012 Patient Education: .Amazing charts Exercise for Sciatica Completed 04/09/2012 Appointment: Sunitha Moran WPtel: [phone] [phone] [place] Other 03/13/2012 Visit Plan: Diabetes [...] 03/04/2012 Appointment: Maria Victoria Harrell WPtel: [phone] [facility] Other 03/04/2012 Patient Education: Patient Medication Summary [...] pains/fatigue. 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 10/31/2011 Appointment: Maria Victoria Harrell WPtel: [phone] [facility] Other 10/31/2011 Patient Education: Patient Medication Summary [...] 08/29/2011 Appointment: Maria Victoria Harrell [facility]Ptel: [phone] [place] [place] 08/29/2011 Patient Education: Patient Medication Summary Completed 08/29/2011 Patient Education: High Blood Pressure: Essential Hypertension Completed 08/29/2011 Visit Plan: left index finger irritated actinic keratosis removed actinic keratosis removed from dorsum of hand as well and in web of the 4th digit 07/24/2011 Appointment: Maria Victoria Harrell WPtel: [phone] [facility] Procedure 07/24/2011 Patient Education: Patient Medication [...] daily. 07/18/2011 Appointment: Maria Victoria Harrell WPtel: [address] [place] [id number] [facility] 07/18/2011 Patient Education: Patient Medication Summary Completed [...] readings are starting to become less controlled. trujeo - new insulin dose would be [...] worsen. Kenalog injection today in the office. INCREASE LANTUS TO 30 UNITS TWICE DAILY!!!!! 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 Hypertension - well controlled - continue with current medications, continue with no added salt diet. Pt has been encouraged to exercise daily. The pt has been advised to call the office if there are any acute concerns about change in blood pressure readings at home. Dr. Mai at [place] - Cardiothoracic surgeon. . Hypertension - well [...] he would like to consider Dr. Mai increase the novolog to 10 units breakfast, [...] readings at home. BPH - start avodart xray left forearm . Left forearm pain-use voltaren gel as needed-xray forearm for further evaluation UA negative-patient instructed to increase po fluids-call if symptoms do not resolve . Hypertension - well controlled - continue [...] is worsening or does not improve. . 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 increasing the lantus to 30 units at [...] and orange juice and multivitamin at bedtime. [facility] - Dr. Jhon Preciado [...] to assure normal liver response to medications. Increase to 22 units of lantus twice [...] need of diabetic foot eval and shoes. . Hypertension - well controlled - continue [...] RTC in one month for weight check. 5 units of insulin at Breakfast, 8 [...] further treatment or ear lavage today . Sacroilitis-right hip pain-sciatica - back exercises discussed with the patient, pt to continue with antiinflammatories. Pt is to call if the symptoms do not improve or if they worsen. Kenalog injection today in the office for acute symtpoms. . Mild Cognitive Impairment - discussed with [...] with adjustments of his CPAP settings. . Arthritis- occasionally uncontrolled symptoms- recommend pt to take antiinflammatory as directed for pain control. Use tylenol for break through pain symptoms. . left index finger irritated actinic keratosis [...] size of the lesion, increase in pain. . Diabetes Mellitus - Uncontrolled - per [...] only 3 units increase was made. . Diabetes Mellitus - controlled - per [...] out other reasons for his chest pains/fatigue. increase insulin to 25 units bid. Diabetes [...] further investigative studies planned by his current yarding supervisor. . Low back pain- the patient was [...] component of healthy back and body. . Tinnitus-cerumen impaction-cerumen adhered to left TM-discussed using sweet oil nightly for the next week and call if symptoms have not improved. Patient verbalized understanding of plan . . Joint Injection - Pt was given [...] elevation in blood sugars. Otherwise, blood sugars joint juice, joint ease, glucosamine and chondroiton [...] - recommended referral to Dr. Fine at [facility] the [address] [place] [address]. . Diabetes Mellitus - controlled - per [...] flat feet - recommended better arch support. BRING IN THE GLUCOMETER TO THE 7 [...] concerns. INCREASE AVAPRO TO 300 mg daily. Bert is to increase his Lantus to [...] - pt to see this Opthamologist in [place] - May 25. . Diabetes Mellitus - Uncontrolled - per [...] units subcutaneously once daily at night. . Diabetes Mellitus - controlled - per [...]
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
--- NOTE | 2019-01-23 15:44 | NUR ---
PT BACK IN ROOM FROM CT. ATTEMPTING TO GIVE URINE SAMPLE.
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
--- OUTSIDE RECORDS SUMMARY | 2019-01-23 15:46 | XMS REPORT | CCD ---
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 Unknown Has never used illegal drugs 07/18/2011 Allergies, Adverse Reactions, Alerts Allergies, Adverse Reactions, Alerts data not found Past Medical History Illness Codes Condition Status Onset Date Resolved Date Essential (primary) hypertension ICD-9: 401.1 ICD-10: I10 Active 12/05/2016 Unknown Mixed hyperlipidemia ICD- 9: 272.4 ICD-10: E78.2 Active 10/31/2011 Unknown Type 2 diabetes mellitus without complications ICD-9: 250.00 ICD-10: E11.9 Active 03/28/2017 Unknown Cellulitis of left lower limb ICD-9: 682.6 ICD-10: L03.116 Active 07/02/2017 Unknown Other hypertrophic disorders of the skin ICD-9: 701.9 ICD-10: L91.8 Active 07/02/2017 Unknown Encounter for immunization ICD-9: V04.81 ICD-10: Z23 Active 07/01/2013 Unknown Sciatica Unknown Active 06/04/2017 Unknown Lumbago with sciatica, right side ICD-9: 724.3 ICD-10: M54.41 Active 06/04/2017 Unknown Cough ICD-9: 786.2 ICD-10: R05 Active 04/03/2017 Unknown Palpitations ICD-9: 785.1 ICD-10: R00.2 Active 04/03/2017 Unknown Type 2 diabetes mellitus with diabetic polyneuropathy ICD-9: 250.60 ICD-10: E11.42 Active 04/03/2017 Unknown Encounter for general adult medical examination with abnormal findings ICD-9: V70.0 ICD-10: Z00.01 Active 03/28/2017 Unknown Essential (primary) hypertension ICD-9: 401.9 ICD-10: I10 Active 04/19/2014 Unknown Type 2 diabetes mellitus with hyperglycemia ICD-9: 250.02 ICD-10: E11.65 Active 01/13/2014 Unknown Essential tremor ICD-9: 333.1 ICD-10: G25.0 Active 05/23/2016 Unknown Morbid (severe) obesity due to excess [...] ICD-9: 724.1 ICD-10: M54.6 Active 06/20/2016 Unknown Dorsalgia, unspecified ICD-9: 724.5 ICD-10: M54.9 Active 05/04/2014 Unknown URINARY FREQUENCY ICD-9: 788.41 Active 05/17/2015 [...] I10 12/05/2016 Active Mixed hyperlipidemia ICD- 9: 272.4 ICD-10: E78.2 10/31/2011 Active Type 2 diabetes mellitus without complications ICD-9: 250.00 ICD-10: E11.9 03/28/2017 Active Cellulitis of left lower limb ICD-9: 682.6 ICD-10: L03.116 07/02/2017 Active Other hypertrophic disorders of the skin ICD-9: 701.9 ICD-10: L91.8 07/02/2017 Active Encounter for immunization ICD-9: V04.81 ICD-10: Z23 07/01/2013 Active Sciatica Unknown 06/04/2017 Active Lumbago with sciatica, right side ICD-9: 724.3 ICD-10: M54.41 06/04/2017 Active Cough ICD-9: 786.2 ICD-10: R05 04/03/2017 Active Palpitations ICD-9: 785.1 ICD-10: R00.2 04/03/2017 Active Type 2 diabetes mellitus with diabetic polyneuropathy ICD-9: 250.60 ICD-10: E11.42 04/03/2017 Active Encounter for general adult medical examination with abnormal findings ICD-9: V70.0 ICD-10: Z00.01 03/28/2017 Active Essential (primary) hypertension ICD-9: 401.9 ICD-10: I10 04/19/2014 Active Type 2 diabetes mellitus with hyperglycemia ICD-9: 250.02 ICD-10: E11.65 01/13/2014 Active Essential tremor ICD-9: 333.1 ICD-10: G25.0 05/23/2016 Active Morbid (severe) obesity due to excess [...] spine ICD-9: 724.1 ICD-10: M54.6 06/20/2016 Active Dorsalgia, unspecified ICD-9: 724.5 ICD-10: M54.9 05/04/2014 Active URINARY FREQUENCY ICD-9: 788.41 05/17/2015 Active [...] Start Date Stop Date Status Fill Instructions Insulin Syringe 0.3 mL 29 X 5/16" RxNorm: 1 injection SQ TID 10/01/2017 07/27/2018 Active Protonix 40 mg tablet,delayed release RxNorm: 452649 1 Tablet(s) PO daily 09/27/2017 12/20/2018 Active Toujeo SoloStar 300 unit/mL (1.5 mL) subcutaneous insulin pen RxNorm: 9133489 45 Unit(s) SQ daily 09/27/2017 12/20/2018 Active 90 day supply lovastatin 20 mg tablet RxNorm: 650761 1 Tablet(s) PO QHS 09/27/2017 12/20/2018 Active irbesartan 300 mg tablet RxNorm: 877400 1 Tablet(s) PO daily 09/27/2017 12/20/2018 Active Novolin R 100 unit/mL injection solution RxNorm: 026551 8 Unit(s) Inj QAM 10 units at lunch and 8 units at supper 09/27/2017 12/20/2018 Active dutasteride 0.5 mg capsule RxNorm: 930892 1 Capsule(s) PO daily 09/27/2017 12/20/2018 Active metformin 1,000 mg tablet RxNorm: 186534 1 Tablet(s) PO BID 09/27/2017 12/20/2018 Active Voltaren 1 % topical gel RxNorm: 414575 4 Gram(s) TOP QID 09/27/2017 12/20/2018 Active [SAVINGS FOR NON-COVERED DRUGS -- BIN:[id number], PCN: ASPROD1, Group: XXXXX, ID# XXXXXXX, Questions: . THIS IS NOT INSURANCE.] magnesium oxide 400 mg tablet RxNorm: 614302 1 Tablet(s) PO daily 09/27/2017 12/20/2018 Active Trueresult Blood Glucose System RxNorm: 1 test Miscellaneous QID insulin dependent diabetes 09/27/2017 09/21/2018 Active Insulin Syringe 0.3 mL 29 X 5/16" RxNorm: 1 injection SQ BID 09/27/2017 09/30/2017 Inactive Voltaren 1 % topical gel RxNorm: 474067 4 Gram(s) TOP QID 07/23/2017 09/26/2017 Inactive [SAVINGS FOR NON-COVERED DRUGS -- BIN:073051, PCN: ASPROD1, Group: XXXXX, ID# [id number], Questions: . THIS IS NOT INSURANCE.] Bactrim DS 800 mg-160 mg tablet RxNorm: 985384 1 Tablet(s) PO BID 07/02/2017 07/08/2017 Inactive Kenalog 40 mg/mL suspension for injection RxNorm: 2104867 1 Milliliter(s) Inj 06/04/2017 06/04/2017 Inactive Efudex 5 % topical cream RxNorm: 882126 1 TOP BID 12/05/2016 12/14/2016 Inactive Avapro 300 mg tablet RxNorm: 757805 Tablet(s) TAKE 1 TABLET BY MOUTH ONCE DAILY. 09/21/2016 09/15/2017 Inactive Toujeo SoloStar 300 unit/mL (1.5 mL) subcutaneous insulin pen RxNorm: 2461927 45 Unit(s) SQ daily 09/21/2016 09/15/2017 Inactive 90 day supply Novolin R 100 unit/mL injection solution RxNorm: 414501 8 Unit(s) Inj QAM 10 units at lunch and 8 units at supper 09/21/2016 09/15/2017 Inactive metformin 1,000 mg tablet RxNorm: 631942 Tablet(s) TAKE 1 TABLET BY MOUTH TWICE DAILY AFTER MEALS 09/21/2016 09/15/2017 Inactive lovastatin 20 mg tablet RxNorm: 817919 Tablet(s) TAKE ONE TABLET BY MOUTH ONCE DAILY. 09/21/2016 09/15/2017 Inactive dutasteride 0.5 mg capsule RxNorm: 281247 1 Capsule(s) PO daily 09/21/2016 09/15/2017 Inactive Toujeo SoloStar 300 unit/mL (1.5 mL) subcutaneous insulin pen RxNorm: 3533290 45 Unit(s) SQ daily 06/27/2016 09/20/2016 Inactive Kenalog 40 mg/mL suspension for injection RxNorm: 3799033 1 Milliliter(s) Inj 06/21/2016 06/21/2016 Inactive Toujeo SoloStar 300 unit/mL (1.5 mL) subcutaneous insulin pen RxNorm: 3749226 40 Unit(s) SQ daily 05/24/2016 06/26/2016 Inactive Novolin R 100 unit/mL injection solution RxNorm: 790689 8 Unit(s) Inj QAM 10 units at lunch and 8 units at supper 05/24/2016 09/20/2016 Inactive Bactrim DS 800 mg-160 mg tablet RxNorm: 671660 1 Tablet(s) PO BID 10/03/2015 01/31/2016 Inactive dutasteride 0.5 mg capsule RxNorm: 340060 1 Capsule(s) PO daily 09/26/2015 09/19/2016 Inactive dutasteride 0.5 mg capsule RxNorm: 107943 1 Capsule(s) PO daily 09/26/2015 09/25/2015 Inactive Avodart 0.5 mg capsule RxNorm: 471022 1 Capsule(s) PO QPM 09/21/2015 09/25/2015 Inactive Avapro 300 mg tablet RxNorm: 550673 Tablet(s) TAKE 1 TABLET BY MOUTH ONCE DAILY. 09/21/2015 09/14/2016 Inactive Generic For:AVAPRO 300MG 08/26/2015 9:53:42 AM lovastatin 20 mg tablet RxNorm: 286056 1 Tablet(s) TAKE ONE TABLET BY MOUTH ONCE DAILY. 09/21/2015 09/20/2016 Inactive Generic For:*MEVACOR 20MG 10/06/2014 12:16:37 PM Novolin R 100 unit/mL injection solution RxNorm: 693445 5 Unit(s) Inj QAM 8 units at lunch and 5 units at supper 09/21/2015 05/23/2016 Inactive metformin 1,000 mg tablet RxNorm: 188427 Tablet(s) TAKE 1 TABLET BY MOUTH TWICE DAILY AFTER MEALS 09/21/2015 09/20/2016 Inactive Generic For:*GLUCOPHAGE 1000MG 10/18/2014 5:26:11 PM Toujeo SoloStar 300 unit/mL (1.5 mL) subcutaneous insulin pen RxNorm: 1513231 60 Unit(s) SQ daily 09/21/2015 05/23/2016 Inactive 3 month supply DX 250.02 also needs pen needles to use daily dx 250.02 Novolin R 100 unit/mL injection solution RxNorm: 766072 5 Unit(s) Inj QAM 8 units at lunch and 5 units at supper 09/07/2015 09/20/2015 Inactive lovastatin 20 mg tablet RxNorm: 258359 Tablet(s) TAKE ONE TABLET BY MOUTH ONCE DAILY. 09/07/2015 09/20/2015 Inactive Generic For:*MEVACOR 20MG 10/06/2014 12:16:37 PM metformin 1,000 mg tablet RxNorm: 181211 Tablet(s) TAKE 1 TABLET BY MOUTH TWICE DAILY AFTER MEALS 09/07/2015 09/20/2015 Inactive Generic For:*GLUCOPHAGE 1000MG 10/18/2014 5:26:11 PM Toujeo SoloStar 300 unit/mL (1.5 mL) subcutaneous insulin pen RxNorm: 6077109 60 Unit(s) SQ daily 09/07/2015 09/20/2015 Inactive 3 month supply DX 250.02 also needs pen needles to use daily dx 250.02 Avapro 300 mg tablet RxNorm: 998185 TAKE 1 TABLET BY MOUTH ONCE DAILY. 08/26/2015 09/20/2015 Inactive Generic For:AVAPRO 300MG 08/26/2015 9:53:42 AM Avodart 0.5 mg capsule RxNorm: 203670 1 Capsule(s) PO QPM 08/17/2015 09/20/2015 Inactive Novolin R 100 unit/mL injection solution RxNorm: 397750 5 Unit(s) Inj QAM 8 units at lunch and 5 units at supper 08/17/2015 09/06/2015 Inactive Trueresult Blood Glucose System RxNorm: 1 test Miscellaneous QID insulin dependent diabetes 08/17/2015 08/10/2016 Inactive Avodart 0.5 mg capsule RxNorm: 987434 1 Capsule(s) PO QPM 08/14/2015 08/16/2015 Inactive Novolin R 100 unit/mL injection solution RxNorm: 990332 5 Unit(s) Inj TID with meals 07/20/2015 08/16/2015 Inactive Toujeo SoloStar 300 unit/mL (1.5 mL) subcutaneous insulin pen RxNorm: 3997127 60 Unit(s) SQ daily 07/20/2015 09/06/2015 Inactive one month supply DX 250.02 also needs pen needles to use daily dx 250.02 Bactrim DS 800 mg-160 mg tablet RxNorm: 395360 1 Tablet(s) PO BID 05/09/2015 05/15/2015 Inactive Bactrim DS 800 mg-160 mg tablet RxNorm: 399895 1 Tablet(s) PO BID 05/09/2015 05/08/2015 Inactive Bactrim DS 800 mg-160 mg tablet RxNorm: 350089 1 Tablet(s) PO BID 05/09/2015 05/08/2015 Inactive Toujeo SoloStar 300 unit/mL (1.5 mL) subcutaneous insulin pen RxNorm: 4295208 45u qdx3 days then 50u qdx 5 days then if fsbs >180 55u qd Unit(s) SQ daily 05/02/2015 07/19/2015 Inactive one month supply DX 250.02 also needs pen needles to use daily dx 250.02 Toujeo SoloStar 300 unit/mL (1.5 mL) subcutaneous insulin pen RxNorm: 2543397 45u qdx3 days then 50u qdx 5 days then if fsbs >180 55u qd Unit(s) SQ daily 05/02/2015 05/01/2015 Inactive one month supply DX 250.02 also needs pen needles to use daily dx 250.02 Belviq 10 mg tablet RxNorm: 0279563 1 Tablet(s) PO BID 04/20/2015 09/20/2015 Inactive Insulin Syringe 0.3 mL 29 X 5/16" RxNorm: 1 Miscellaneous BID 03/24/2015 04/16/2016 Inactive Lantus 100 unit/mL subcutaneous solution RxNorm: 743168 30 Unit(s) SQ BID 02/14/2015 05/01/2015 Inactive pt not ready for refill yet, when he is, please fill 25units bid Lantus 100 unit/mL subcutaneous solution RxNorm: 705639 28 Unit(s) SQ BID 11/11/2014 02/13/2015 Inactive pt not ready for refill yet, when he is, please fill 25units bid [SAVINGS FOR NON-COVERED DRUGS -- BIN:[id number], PCN: ASPROD1, Group: XXXXX, ID# [id number], Questions: . THIS IS NOT INSURANCE.] Voltaren 1 % topical gel RxNorm: 488519 4 Gram(s) TOP QID 11/11/2014 03/10/2015 Inactive [SAVINGS FOR NON-COVERED DRUGS -- BIN:104816, PCN: ASPROD1, Group: XXXXX, ID# [id number], Questions: . THIS IS NOT INSURANCE.] metformin 1,000 mg tablet RxNorm: 323330 TAKE 1 TABLET BY MOUTH TWICE DAILY AFTER MEALS 10/19/2014 09/06/2015 Inactive Generic For:*GLUCOPHAGE 1000MG 10/18/2014 5:26:11 PM metformin 1,000 mg tablet RxNorm: 639471 Tablet(s) TAKE 1 TABLET BY MOUTH TWICE DAILY AFTER MEALS 10/18/2014 10/18/2014 Inactive Generic For:*GLUCOPHAGE 1000MG 04/16/2014 9:02:30 AM lovastatin 20 mg tablet RxNorm: 527668 TAKE ONE TABLET BY MOUTH ONCE DAILY. 10/07/2014 09/06/2015 Inactive Generic For:*MEVACOR 20MG 10/06/2014 12:16:37 PM lovastatin 20 mg tablet RxNorm: 502416 1 Tablet(s) PO daily TAKE ONE (1) TABLET BY MOUTH DAILY 10/06/2014 10/06/2014 Inactive Generic For:MEVACOR 20 MG TABLET Generic For:MEVACOR 20 MG TABLET 08/14/2013 8:06:44 AM Carafate 1 gram tablet RxNorm: 298494 1 Tablet(s) PO QID dissolve in 10mL of fluid, drink liquid carafate four times daily before meals and before bed 10/04/2014 11/10/2014 Inactive may dispense generic Avapro 300 mg tablet RxNorm: 256642 TAKE 1 TABLET BY MOUTH ONCE DAILY. 08/26/2014 08/20/2015 Inactive Generic For:AVAPRO 300MG 08/26/2014 9:03:29 AM Avodart 0.5 mg capsule RxNorm: 236918 1 Capsule(s) PO QPM 08/02/2014 07/27/2015 Inactive meloxicam 15 mg tablet RxNorm: 215699 TAKE 1 TABLET BY MOUTH ONCE DAILY. 06/11/2014 11/10/2014 Inactive Generic For:MOBIC 15MG 06/11/2014 9:05:37 AM Kenalog 40 mg/mL suspension for injection RxNorm: 0014007 1 Milliliter(s) Inj 05/04/2014 05/04/2014 Inactive Lantus Solostar 100 unit/mL (3 mL) subcutaneous insulin pen RxNorm: 312818 25 Unit(s) SQ BID 04/19/2014 02/13/2015 Inactive Lantus 100 unit/mL subcutaneous solution RxNorm: 094346 25 Unit(s) SQ BID break up lantus to two shots daily of 22 units each shot 04/19/2014 11/10/2014 Inactive pt not ready for refill yet, when he is, please fill 25units bid metformin 1,000 mg tablet RxNorm: 186116 TAKE 1 TABLET BY MOUTH TWICE DAILY AFTER MEALS 04/16/2014 10/12/2014 Inactive Generic For:*GLUCOPHAGE 1000MG 04/16/2014 9:02:30 AM Insulin Syringe 0.3 mL 29 X 5/16" RxNorm: 1 Miscellaneous BID 03/15/2014 03/23/2015 Inactive Insulin Syringe 0.3 mL 29 X 5/16" RxNorm: 1 Miscellaneous BID 03/15/2014 03/14/2014 Inactive meloxicam 15 mg tablet RxNorm: 597490 TAKE 1 TABLET EVERY DAY 03/15/2014 06/10/2014 Inactive Generic For:MOBIC 15MG 03/15/2014 9:06:35 AM Lantus 100 unit/mL subcutaneous solution RxNorm: 504343 22 Unit(s) SQ BID break up lantus to two shots daily of 22 units each shot 01/14/2014 04/18/2014 Inactive metformin 1,000 mg tablet RxNorm: 433054 Tablet(s) PO TAKE 1 TABLET BY MOUTH TWICE DAILY AFTER MEALS 01/07/2014 04/15/2014 Inactive Generic For:*GLUCOPHAGE 1000MG Lantus 100 unit/mL subcutaneous solution RxNorm: 135413 25 Unit(s) SQ BID break up lantus to two shots daily of 25 units each shot 09/30/2013 09/29/2013 Inactive Lantus 100 unit/mL subcutaneous solution RxNorm: 956200 25 Unit(s) SQ BID break up lantus to two shots daily of 25 units each shot 09/30/2013 01/13/2014 Inactive metformin 1,000 mg tablet RxNorm: 600193 1 Tablet(s) PO BID TAKE 1 TABLET BY MOUTH TWICE DAILY AFTER MEALS 09/30/2013 12/28/2013 Inactive Generic For:GLUCOPHAGE 1000MG TAB Generic For:GLUCOPHAGE 1000MG TAB Avapro 300 mg tablet RxNorm: 311379 Tablet(s) PO TAKE ONE (1) TABLET BY MOUTH DAILY 08/28/2013 08/25/2014 Inactive Generic For:*AVAPRO 300MG TAB Generic For:*AVAPRO 300MG TAB 08/28/2013 8:53:42 AM lovastatin 20 mg tablet RxNorm: 874741 Tablet(s) PO TAKE ONE (1) TABLET BY MOUTH DAILY 08/14/2013 10/05/2014 Inactive Generic For:MEVACOR 20 MG TABLET Generic For:MEVACOR 20 MG TABLET 08/14/2013 8:06:44 AM metformin 1,000 mg tablet RxNorm: 449040 Tablet(s) PO TAKE 1 TABLET BY MOUTH TWICE DAILY AFTER MEALS 07/16/2013 09/29/2013 Inactive Generic For:GLUCOPHAGE 1000MG TAB Generic For:GLUCOPHAGE 1000MG TAB Influenza Virus Vaccine 0.5 mL RxNorm: IM 07/01/2013 07/01/2013 Inactive Contour Test Strips RxNorm: strip miscellaneous USE TO TEST BLOOD SUGAR THREE TIMES DAILY DIRECTED 06/29/2013 03/14/2014 Inactive metformin 1,000 mg tablet RxNorm: 996160 Tablet(s) PO TAKE 1 TABLET BY MOUTH TWICE DAILY AFTER MEALS 04/14/2013 07/15/2013 Inactive Generic For:GLUCOPHAGE 1000MG TAB meloxicam 15 mg tablet RxNorm: 421611 Tablet(s) PO TAKE ONE TABLET BY MOUTH EVERY DAY 03/21/2013 03/14/2014 Inactive Generic For:MOBIC 15MG TAB 03/19/2013 8:10:41 AM Lantus 100 unit/mL subcutaneous solution RxNorm: 173433 25 Unit(s) SQ BID break up lantus to two shots daily of 25 units each shot 03/04/2013 06/01/2013 Inactive Insulin Syringe 0.3 mL 29 X 5/16" RxNorm: 1 Unit Dose Miscellaneous BID 02/04/2013 09/01/2013 Inactive Lantus 100 unit/mL Sub-Q RxNorm: 947855 20 Unit(s) SQ BID break up lantus to two shots daily of 20units each shot 02/04/2013 03/03/2013 Inactive topiramate 25 mg tablet RxNorm: 883883 1 Tablet(s) PO daily 02/04/2013 04/08/2013 Inactive metformin 1,000 mg tablet RxNorm: 495740 Tablet(s) PO TAKE 1 TABLET BY MOUTH TWICE DAILY AFTER MEALS 01/15/2013 04/13/2013 Inactive Generic For:GLUCOPHAGE 1000MG TAB Lantus 100 unit/mL Sub-Q RxNorm: 834824 30 Unit(s) SQ QPM 12/03/2012 01/01/2013 Inactive Kenalog 40 mg/mL Susp for Injection RxNorm: 9872827 1 Milliliter(s) Inj 09/25/2012 09/25/2012 Inactive Lantus 100 unit/mL Sub-Q RxNorm: 142668 25 Unit(s) SQ QPM 09/12/2012 10/11/2012 Inactive Avapro 300 mg tablet RxNorm: 752507 Tablet(s) PO TAKE ONE (1) TABLET BY MOUTH DAILY 09/03/2012 09/02/2012 Inactive Generic For:AVAPRO 300MG TAB Avapro 300 mg tablet RxNorm: 799618 Tablet(s) PO TAKE ONE (1) TABLET BY MOUTH DAILY 09/03/2012 08/27/2013 Inactive Generic For:AVAPRO 300MG TAB Lantus 100 unit/mL Sub-Q RxNorm: 854837 20 Unit(s) SQ QPM 08/27/2012 09/11/2012 Inactive Avapro 300 mg tablet RxNorm: 985609 1 Tablet(s) PO daily 08/27/2012 09/02/2012 Inactive Lantus 100 unit/mL Sub-Q RxNorm: 873264 15 Unit(s) SQ QPM 08/07/2012 08/26/2012 Inactive metformin 1,000 mg tablet RxNorm: 652046 Tablet(s) PO 07/18/2012 01/14/2013 Inactive TAKE 1 TABLET BY MOUTH TWICE DAILY AFTER MEALS;Generic For:GLUCOPHAGE 1,000 MG TABLET Lantus 100 unit/mL Sub-Q RxNorm: 281108 13 Unit(s) SQ QPM 06/25/2012 07/24/2012 Inactive lovastatin 20 mg tablet RxNorm: 705204 Tablet(s) PO 06/20/2012 07/14/2013 Inactive TAKE 2 TABLETS BY MOUTH AT BEDTIME;Generic For:MEVACOR 20 MG TABLET Pneumovax 23 25 mcg/0.5 mL Injection RxNorm: 603312 Milliliter(s) Inj 06/04/2012 06/04/2012 Inactive Influenza Virus Vaccine 0.5 mL RxNorm: IM 06/04/2012 06/04/2012 Inactive Insulin Syringe 0.3 mL 29 X 5/16" RxNorm: 1 Unit Dose Miscellaneous daily 06/03/2012 12/29/2012 Inactive lovastatin 20 mg tablet RxNorm: 449387 Tablet(s) PO 05/14/2012 06/19/2012 Inactive TAKE 2 TABLETS BY MOUTH AT BEDTIME;Generic For:MEVACOR 20 MG TABLET Contour Test Strips RxNorm: Miscellaneous TID 04/25/2012 05/24/2012 Inactive lovastatin 20 mg tablet RxNorm: 041129 Tablet(s) PO 04/16/2012 05/13/2012 Inactive TAKE 2 TABLETS BY MOUTH AT BEDTIME;Generic For:MEVACOR 20 MG TABLET metformin 1,000 mg tablet RxNorm: 692774 Tablet(s) PO 04/16/2012 07/17/2012 Inactive TAKE 1 TABLET BY MOUTH TWICE DAILY AFTER MEALS;Generic For:GLUCOPHAGE 1,000 MG TABLET citalopram 20 mg tablet RxNorm: 088444 1 Tablet(s) PO daily 04/09/2012 09/23/2012 Inactive meloxicam 15 mg Tab RxNorm: 579426 1 Tablet(s) PO daily 2012 03/04/2012 Inactive meloxicam 15 mg Tab RxNorm: 230656 Tablet(s) PO 2012 07/19/2015 Inactive TAKE 1 TABLET BY MOUTH DAILY;Generic For:MOBIC 15MG TAB WC meloxicam 15 mg tablet RxNorm: 786804 1 Tablet(s) PO daily 2012 03/04/2012 Inactive Rocephin 500 mg Solution for Injection RxNorm: 148342 Inj 03/04/2012 03/04/2012 Inactive sulfamethoxazole 800 mg-trimethoprim 160 mg tablet RxNorm: 578023 1 Tablet(s) PO BID 03/04/2012 03/13/2012 Inactive metoprolol succinate ER 25 mg 24 hr Tab RxNorm: 064410 1 Tablet(s) PO daily 12/03/2011 11/16/2014 Inactive Byetta 10 mcg/0.04 mL per dose Sub-Q Pen Injector RxNorm: 070478 10 Microgram(s) SQ BID 10 meq twice daily before the two largest meals of the day. 12/03/2011 06/03/2012 Inactive Plavix 75 mg Tab RxNorm: 096966 1 Tablet(s) PO daily 12/03/2011 11/16/2014 Inactive lovastatin 20 mg tablet RxNorm: 114474 2 Tablet(s) PO daily 11/12/2011 04/15/2012 Inactive TAKE 2 TABLETS BY MOUTH DAILY AT BEDTIME;Generic For:MEVACOR 20 MG TABLET N O T I C E Last dispense quantity was less than original quantity written Avapro 300 mg tablet RxNorm: 075154 1 Tablet(s) PO daily 08/28/2011 08/21/2012 Inactive metformin 1,000 mg Tab RxNorm: 893005 1 Tablet(s) PO BID 07/09/2011 07/02/2012 Inactive Victoza 0.6 mg/0.1 mL (18 mg/3 mL) Sub-Q Pen Injector RxNorm: 297546 1.8 Milligram(s) SQ daily 06/20/2011 03/04/2012 Inactive Fish Oil 1,000 mg capsule RxNorm: 1 Capsule(s) PO BID No Start Date Active Ocuvite oral RxNorm: 380711 oral No Start Date Active potassium gluconate 595 mg (99 mg) tablet RxNorm: 742242 1 Tablet(s) PO daily No Start Date Active aspirin 81 mg Cap, Delayed Release RxNorm: 575450 1 Capsule(s) PO daily No Start Date Active multivitamin tablet RxNorm: oral No Start Date Active B Complex 1 oral RxNorm: 76787 oral No Start Date Active Protonix 40 mg tablet,delayed release RxNorm: 139711 1 Tablet(s) PO daily No Start Date 09/26/2017 Inactive Bydureon 2 mg SubQ Susp RxNorm: 0568991 1 SQ QW No Start Date 06/03/2012 Inactive Avapro 150 mg Tab RxNorm: 637950 1 Tablet(s) PO daily No Start Date 03/04/2012 Inactive Travatan Z 0.004 % Eye Drops RxNorm: 681442 1 Drop(s) OPH daily No Start Date 06/14/2014 Inactive metformin 1,000 mg tablet RxNorm: 311559 1 Tablet(s) PO BID No Start Date 03/04/2012 Inactive magnesium oxide 400 mg tablet RxNorm: 369816 Tablet(s) PO No Start Date 09/26/2017 Inactive Ativan 0.5 mg tablet RxNorm: 379299 1 Tablet(s) PO No Start Date 10/09/2013 Inactive 1 30 min prior to procedure meloxicam 15 mg Tab RxNorm: 204768 1 Tablet(s) PO daily No Start Date 03/04/2012 Inactive lovastatin 20 mg Tab RxNorm: 334234 2 Tablet(s) PO QHS No Start Date 11/12/2011 Inactive Pen Needle 31 x 3/16" RxNorm: Miscellaneous BID Pen [place] 31g/8mm BD to use for Byetta injection BID No Start Date 06/03/2012 Inactive Medication Administered Medication Codes Instructions Start Date Status Kenalog 40 mg/mL suspension for injection RxNorm: 3085093 1Milliliter 06/04/2017 No longer Active Kenalog 40 mg/mL suspension for injection RxNorm: 9614348 1Milliliter 06/21/2016 No longer Active Kenalog 40 mg/mL suspension for injection RxNorm: 7951724 1Milliliter 05/04/2014 No longer Active Influenza Virus Vaccine 0.5 mL RxNorm: 07/01/2013 No longer Active Kenalog 40 mg/mL Susp for Injection RxNorm: 9993884 1Milliliter 09/25/2012 No longer Active Influenza Virus Vaccine 0.5 mL RxNorm: 06/04/2012 No longer Active Pneumovax 23 25 mcg/0.5 mL Injection RxNorm: 115789 Milliliter 06/04/2012 No longer Active Rocephin 500 mg Solution for Injection RxNorm: 843410 03/04/2012 No longer Active Immunizations Vaccine Codes Date Status Influenza CVX: 141 06/28/2017 completed Pneumococcal (Adult) [...] mellitus without complications ICD-10: E11.9 ICD-9: 250.00 07/29/2017 Essential (primary) hypertension ICD-10: I10 ICD-9: 401.1 07/29/2017 Mixed hyperlipidemia ICD-10: E78.2 ICD-9: 272.4 07/29/2017 Other hypertrophic disorders of the skin ICD-10: L91.8 ICD-9: 701.9 07/02/2017 Cellulitis of left lower limb ICD-10: L03.116 ICD-9: 682.6 07/02/2017 Encounter for immunization ICD-10: Z23 ICD-9: V04.81 06/28/2017 Lumbago with sciatica, right side ICD-10: M54.41 ICD-9: 724.3 06/04/2017 Palpitations ICD-10: R00.2 ICD-9: 785.1 04/03/2017 Cough ICD-10: R05 ICD-9: 786.2 04/03/2017 Type 2 diabetes mellitus with diabetic polyneuropathy ICD-10: E11.42 ICD-9: 250.60 04/03/2017 Essential (primary) hypertension ICD-10: I10 ICD-9: 401.9 03/28/2017 Encounter for general adult medical examination with abnormal findings ICD-10: Z00.01 ICD-9: V70.0 03/28/2017 Type 2 diabetes mellitus with hyperglycemia ICD-10: E11.65 ICD-9: 250.02 12/03/2016 Morbid (severe) obesity due to excess calories ICD-10: E66.01 ICD-9: 278.01 08/30/2016 Pain in right hip ICD-10: M25.551 ICD-9: 719.45 08/30/2016 Essential tremor ICD-10: G25.0 ICD-9: 333.1 08/30/2016 Dysuria ICD-10: R30.0 ICD-9: 788.1 07/13/2016 [...] 331.83 02/08/2014 Nightmares ICD-9: 307.47 02/08/2014 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 10/14/2013 Thumb pain ICD-9: [...] For Visit Effective Dates Notes diabetes mellitus 07/29/2017 skin lesion 07/02/2017 vaccination [...] Result Date Cbc With Differential Ord2 WBC 6.62 K/ul [...] 31.0 pg 07/25/2017 Cbc With Differential Ord2 [place]% 13.3 % 07/25/2017 Cbc With Differential Ord2 [...] 1.89 K/ul 07/25/2017 Cbc With Differential Ord2 [place] ABS# 0.9 K/ul 07/25/2017 Cbc With Differential Ord2 Eos ABS# 0.2 K/ul 07/25/2017 Cbc With Differential Ord2 Baso ABS# 0.1 K/ul 07/25/2017 Comp Metabolic Brw950 NA 140 mEq/L 07/25/2017 Comp Metabolic Gye290 K 4.7 mEq/L 07/25/2017 Comp Metabolic Cnz600 CL 102 mEq/L 07/25/2017 Comp Metabolic Hqi525 CO2 30.0 mEq/L 07/25/2017 Comp Metabolic Krv383 ANION GAP 13 07/25/2017 Comp Metabolic Tzt796 GLUCOSE 178 mg/dL 07/25/2017 Comp Metabolic Fro958 Creat 1.0 mg/dL 07/25/2017 Comp Metabolic Qin298 eGFR 75 ml/min/1.73m2 07/25/2017 Comp Metabolic Lmh851 BUN 23 mg/dL 07/25/2017 Comp Metabolic Otq714 B/C Ratio 22.3 Ratio 07/25/2017 Comp Metabolic Luh592 CALCIUM 9.7 mg/dL 07/25/2017 Comp Metabolic Mep474 ALK PHOS 40 U/L 07/25/2017 Comp Metabolic Uwr405 AST(SGOT) 22 U/L 07/25/2017 Comp Metabolic Akc392 ALT(SGPT) 25 U/L 07/25/2017 Comp Metabolic Bsm331 BILI T 0.7 mg/dL 07/25/2017 Comp Metabolic Fgy982 ALBUMIN 4.0 g/dL 07/25/2017 Comp Metabolic Vwt325 TPRO 6.7 g/dL 07/25/2017 Comp Metabolic Naj154 GLOB 2.7 g/dL 07/25/2017 Comp Metabolic Ptx143 A/G Ratio 1.5 Ratio 07/25/2017 Comp Metabolic Kxj638 Osmo 288 mOsmo 07/25/2017 %Hba1C Jvo442 % HbA1c 08478- 6 7.1 % 07/25/2017 %Hba1C Xqg987 Gluc Ave 157 mg/dL 07/25/2017 Lipid Ord30 CHOL 164 mg/dL 07/25/2017 Lipid Ord30 HDL 49.0 mg/dl 07/25/2017 Lipid Ord30 TRIG 266 mg/dL 07/25/2017 Lipid Ord30 LDL 62 mg/dL 07/25/2017 Lipid Ord30 C/HDL 3.3 Ratio 07/25/2017 Comp Metabolic Lpg756 NA 140 mEq/L 04/02/2017 Comp Metabolic Exo008 K 4.4 mEq/L 04/02/2017 Comp Metabolic Tyq048 CL 103 mEq/L 04/02/2017 Comp Metabolic Dum575 CO2 27.0 mEq/L 04/02/2017 Comp Metabolic Yzr548 ANION GAP 14 04/02/2017 Comp Metabolic Nze116 GLUCOSE 182 mg/dL 04/02/2017 Comp Metabolic Zmn704 Creat 1.1 mg/dL 04/02/2017 Comp Metabolic Qhs288 eGFR 73 ml/min/1.73m2 04/02/2017 Comp Metabolic Bck951 BUN 26 mg/dL 04/02/2017 Comp Metabolic Mpv212 B/C Ratio 24.5 Ratio 04/02/2017 Comp Metabolic Ayo483 CALCIUM 9.4 mg/dL 04/02/2017 Comp Metabolic Fyn481 ALK PHOS 43 U/L 04/02/2017 Comp Metabolic Cmd287 AST(SGOT) 19 U/L 04/02/2017 Comp Metabolic Tzp551 ALT(SGPT) 20 U/L 04/02/2017 Comp Metabolic Mge453 BILI T 0.7 mg/dL 04/02/2017 Comp Metabolic Srp220 ALBUMIN 4.0 g/dL 04/02/2017 Comp Metabolic Ufv970 TPRO 6.6 g/dL 04/02/2017 Comp Metabolic Ykq969 GLOB 2.6 g/dL 04/02/2017 Comp Metabolic Ugj976 A/G Ratio 1.6 Ratio 04/02/2017 Comp Metabolic Skx825 Osmo 289 mOsmo 04/02/2017 %Hba1C Ewc154 % HbA1c 61068- 6 7.9 % 04/02/2017 %Hba1C Qgb019 Gluc Ave 180 mg/dL 04/02/2017 Cbc With [...] 30.6 pg 04/02/2017 Cbc With Differential Ord2 [place]% 11.5 % 04/02/2017 Cbc With Differential Ord2 [...] 2.21 K/ul 04/02/2017 Cbc With Differential Ord2 [place] ABS# 0.9 K/ul 04/02/2017 Cbc With Differential [...] 30.6 pg 12/04/2016 Cbc With Differential Ord2 [place]% 10.7 % 12/04/2016 Cbc With Differential Ord2 [...] 1.76 K/ul 12/04/2016 Cbc With Differential Ord2 [place] ABS# 0.8 K/ul 12/04/2016 Cbc With Differential Ord2 Eos ABS# 0.2 K/ul 12/04/2016 Cbc With Differential Ord2 Baso ABS# 0.1 K/ul 12/04/2016 Lipid Ord30 CHOL 156 mg/dL 12/04/2016 Lipid Ord30 HDL 47.0 mg/dl 12/04/2016 Lipid Ord30 TRIG 219 mg/dL 12/04/2016 Lipid Ord30 LDL 65 mg/dL 12/04/2016 Lipid Ord30 C/HDL 3.3 Ratio 12/04/2016 Comp Metabolic Qbi625 NA 139 mEq/L 12/04/2016 Comp Metabolic Yvt877 K 4.4 mEq/L 12/04/2016 Comp Metabolic Ijq618 CL 103 mEq/L 12/04/2016 Comp Metabolic Jme929 CO2 27.0 mEq/L 12/04/2016 Comp Metabolic Nkt097 ANION GAP 13 12/04/2016 Comp Metabolic Ney919 GLUCOSE 147 mg/dL 12/04/2016 Comp Metabolic Lcw858 Creat 1.0 mg/dL 12/04/2016 Comp Metabolic Xmu621 eGFR 83 ml/min/1.73m2 12/04/2016 Comp Metabolic Bkb629 BUN 20 mg/dL 12/04/2016 Comp Metabolic Tyw641 B/C Ratio 21.1 Ratio 12/04/2016 Comp Metabolic Vdg124 CALCIUM 9.5 mg/dL 12/04/2016 Comp Metabolic Igx432 ALK PHOS 44 U/L 12/04/2016 Comp Metabolic Lga078 AST(SGOT) 22 U/L 12/04/2016 Comp Metabolic Cwv919 ALT(SGPT) 23 U/L 12/04/2016 Comp Metabolic Hig134 BILI T 0.8 mg/dL 12/04/2016 Comp Metabolic Dfj530 ALBUMIN 3.9 g/dL 12/04/2016 Comp Metabolic Oag775 TPRO 6.3 g/dL 12/04/2016 Comp Metabolic Pzc570 GLOB 2.4 g/dL 12/04/2016 Comp Metabolic Qyx998 A/G Ratio 1.7 Ratio 12/04/2016 Comp Metabolic Xzy357 Osmo 283 mOsmo 12/04/2016 Tsh Ord6 hTSH II 3.35 uIU/mL 12/04/2016 %Hba1C Uhv436 % HbA1c 35308- 6 7.4 % 12/04/2016 %Hba1C Sxy172 Gluc Ave 166 mg/dL 12/04/2016 Comp Metabolic Dkp502 NA 138 mEq/L 08/28/2016 Comp Metabolic Nng896 K 4.7 mEq/L 08/28/2016 Comp Metabolic Gvo882 CL 101 mEq/L 08/28/2016 Comp Metabolic Fux686 CO2 29.0 mEq/L 08/28/2016 Comp Metabolic Dga861 ANION GAP 13 08/28/2016 Comp Metabolic Ien526 GLUCOSE 188 mg/dL 08/28/2016 Comp Metabolic Lon026 Creat 1.0 mg/dL 08/28/2016 Comp Metabolic Oju454 eGFR 82 ml/min/1.73m2 08/28/2016 Comp Metabolic Cta045 BUN 21 mg/dL 08/28/2016 Comp Metabolic Cct820 B/C Ratio 21.9 Ratio 08/28/2016 Comp Metabolic Xfo750 CALCIUM 9.6 mg/dL 08/28/2016 Comp Metabolic Bmd431 ALK PHOS 52 U/L 08/28/2016 Comp Metabolic Evz406 AST(SGOT) 27 U/L 08/28/2016 Comp Metabolic Gox578 ALT(SGPT) 26 U/L 08/28/2016 Comp Metabolic Rxt170 BILI T 0.9 mg/dL 08/28/2016 Comp Metabolic Sla502 ALBUMIN 4.2 g/dL 08/28/2016 Comp Metabolic Orl890 TPRO 6.8 g/dL 08/28/2016 Comp Metabolic Fwg933 GLOB 2.6 g/dL 08/28/2016 Comp Metabolic Apy780 A/G Ratio 1.6 Ratio 08/28/2016 Comp Metabolic Igs938 Osmo 284 mOsmo 08/28/2016 Cbc With Differential Ord2 WBC 7.34 K/ul 08/28/2016 Cbc With Differential Ord2 RBC 4.17 M/ul 08/28/2016 Cbc With Differential Ord2 HGB 12.9 g/dl 08/28/2016 Cbc With Differential Ord2 HCT 37.9 % 08/28/2016 Cbc With Differential Ord2 Neut% 58.2 % 08/28/2016 Cbc With Differential Ord2 Lymph% 22.9 % 08/28/2016 Cbc With Differential Ord2 MCV 90.9 fl 08/28/2016 Cbc With Differential Ord2 MCH 30.9 pg 08/28/2016 Cbc With Differential Ord2 [place]% 14.3 % 08/28/2016 Cbc With Differential Ord2 [...] 1.68 K/ul 08/28/2016 Cbc With Differential Ord2 [place] ABS# 1.1 K/ul 08/28/2016 Cbc With Differential Ord2 Eos ABS# 0.3 K/ul 08/28/2016 Cbc With Differential Ord2 Baso ABS# 0.1 K/ul 08/28/2016 %Hba1C Vvp856 % HbA1c 96963- 6 7.6 % 08/28/2016 %Hba1C Srd461 Gluc Ave 171 mg/dL 08/28/2016 Cbc With [...] 91.4 fl 05/23/2016 Cbc With Differential Ord2 [place]% 12.0 % 05/23/2016 Cbc With Differential Ord2 [...] 1.74 K/ul 05/23/2016 Cbc With Differential Ord2 [place] ABS# 0.9 K/ul 05/23/2016 Cbc With Differential Ord2 Eos ABS# 0.2 K/ul 05/23/2016 Cbc With Differential Ord2 Baso ABS# 0.1 K/ul 05/23/2016 Tsh Ord6 hTSH II 3.24 uIU/mL 05/23/2016 %Hba1C Mxs401 % HbA1c 29149- 6 7.1 % 05/23/2016 %Hba1C Ldr177 Gluc Ave 157 mg/dL 05/23/2016 Lipid Ord30 CHOL 155 mg/dL 05/23/2016 Lipid Ord30 HDL 50.0 mg/dl 05/23/2016 Lipid Ord30 TRIG 159 mg/dL 05/23/2016 Lipid Ord30 LDL 73 mg/dL 05/23/2016 Lipid Ord30 C/HDL 3.1 Ratio 05/23/2016 Comp Metabolic Ash600 NA 137 mEq/L 05/23/2016 Comp Metabolic Miz547 K 4.3 mEq/L 05/23/2016 Comp Metabolic Ynw085 CL 102 mEq/L 05/23/2016 Comp Metabolic Onp708 CO2 28.0 mEq/L 05/23/2016 Comp Metabolic Kqs442 ANION GAP 11 05/23/2016 Comp Metabolic Ske299 GLUCOSE 140 mg/dL 05/23/2016 Comp Metabolic Eii928 Creat 0.9 mg/dL 05/23/2016 Comp Metabolic Kpt780 eGFR 93 ml/min/1.73m2 05/23/2016 Comp Metabolic Urc001 BUN 23 mg/dL 05/23/2016 Comp Metabolic Ski898 B/C Ratio 26.7 Ratio 05/23/2016 Comp Metabolic Kml692 CALCIUM 9.4 mg/dL 05/23/2016 Comp Metabolic Ruj835 ALK PHOS 43 U/L 05/23/2016 Comp Metabolic Zwi355 AST(SGOT) 23 U/L 05/23/2016 Comp Metabolic Nfj066 ALT(SGPT) 23 U/L 05/23/2016 Comp Metabolic Gbs448 BILI T 0.7 mg/dL 05/23/2016 Comp Metabolic Fsd973 ALBUMIN 4.2 g/dL 05/23/2016 Comp Metabolic Sth909 TPRO 6.8 g/dL 05/23/2016 Comp Metabolic Iet686 GLOB 2.6 g/dL 05/23/2016 Comp Metabolic Kqh403 A/G Ratio 1.6 Ratio 05/23/2016 Comp Metabolic Dnt288 Osmo 280 mOsmo 05/23/2016 Cbc With Differential [...] 29.9 pg 01/24/2016 Cbc With Differential Ord2 [place]% 11.1 % 01/24/2016 Cbc With Differential Ord2 [...] 1.92 K/ul 01/24/2016 Cbc With Differential Ord2 [place] ABS# 0.8 K/ul 01/24/2016 Cbc With Differential Ord2 Eos ABS# 0.3 K/ul 01/24/2016 Cbc With Differential Ord2 Baso ABS# 0.1 K/ul 01/24/2016 Cbc With Differential Ord2 New Analyzer Notice Please note new ref ranges starting 09-21-2015 due to implemntation of new five part differential hematolgy analyzer. 01/24/2016 Comp Metabolic Biu077 NA 139 mEq/L 01/24/2016 Comp Metabolic Jvs856 K 4.1 mEq/L 01/24/2016 Comp Metabolic Ore945 CL 102 mEq/L 01/24/2016 Comp Metabolic Wcu139 CO2 29.0 mEq/L 01/24/2016 Comp Metabolic Bzo315 ANION GAP 12 01/24/2016 Comp Metabolic Ypk055 GLUCOSE 140 mg/dL 01/24/2016 Comp Metabolic Ote187 Creat 0.9 mg/dL 01/24/2016 Comp Metabolic Vah715 eGFR 87 ml/min/1.73m2 01/24/2016 Comp Metabolic Bbc818 BUN 20 mg/dL 01/24/2016 Comp Metabolic Jpx474 B/C Ratio 22.0 Ratio 01/24/2016 Comp Metabolic Tby191 CALCIUM 9.3 mg/dL 01/24/2016 Comp Metabolic Bck474 ALK PHOS 46 U/L 01/24/2016 Comp Metabolic Pmo875 AST(SGOT) 23 U/L 01/24/2016 Comp Metabolic Yxa521 ALT(SGPT) 22 U/L 01/24/2016 Comp Metabolic Wee374 BILI T 0.7 mg/dL 01/24/2016 Comp Metabolic Plq502 ALBUMIN 4.1 g/dL 01/24/2016 Comp Metabolic Onc795 TPRO 6.7 g/dL 01/24/2016 Comp Metabolic Naz072 GLOB 2.6 g/dL 01/24/2016 Comp Metabolic Hxz550 A/G Ratio 1.6 Ratio 01/24/2016 Comp Metabolic Rnv137 Osmo 282 mOsmo 01/24/2016 %Hba1C Xid724 % HbA1c 89471- 6 6.8 % 01/24/2016 %Hba1C Buv568 Gluc Ave 148 mg/dL 01/24/2016 Tsh Ord6 hTSH II 3.45 uIU/mL 01/24/2016 Lipid Ord30 CHOL 137 mg/dL 01/24/2016 Lipid Ord30 HDL 47.0 mg/dl 01/24/2016 Lipid Ord30 TRIG 161 mg/dL 01/24/2016 Lipid Ord30 LDL 58 mg/dL 01/24/2016 Lipid Ord30 C/HDL 2.9 Ratio 01/24/2016 Tsh Ord6 hTSH II 3.71 uIU/mL 10/25/2015 %Hba1C Fcu358 % HbA1c 54983- 6 7.1 % 10/25/2015 %Hba1C Flp494 Gluc Ave 157 mg/dL 10/25/2015 Cbc With [...] 30.2 pg 10/25/2015 Cbc With Differential Ord2 [place]% 12.4 % 10/25/2015 Cbc With Differential Ord2 [...] 1.69 K/ul 10/25/2015 Cbc With Differential Ord2 [place] ABS# 0.8 K/ul 10/25/2015 Cbc With Differential [...] Ord30 C/HDL 3.2 Ratio 10/25/2015 Comp Metabolic Zkd868 NA 136 mEq/L 10/25/2015 Comp Metabolic Rph673 K 4.0 mEq/L 10/25/2015 Comp Metabolic Vrx331 CL 102 mEq/L 10/25/2015 Comp Metabolic Hwb319 CO2 26.0 mEq/L 10/25/2015 Comp Metabolic Omf129 ANION GAP 12 10/25/2015 Comp Metabolic Qux395 GLUCOSE 119 mg/dL 10/25/2015 Comp Metabolic Pfv619 Creat 1.1 mg/dL 10/25/2015 Comp Metabolic Nls318 eGFR 69 ml/min/1.73m2 10/25/2015 Comp Metabolic Yyp744 BUN 21 mg/dL 10/25/2015 Comp Metabolic Tuh448 B/C Ratio 18.8 Ratio 10/25/2015 Comp Metabolic Gic681 CALCIUM 9.5 mg/dL 10/25/2015 Comp Metabolic Zba338 ALK PHOS 49 U/L 10/25/2015 Comp Metabolic Ckn504 AST(SGOT) 29 U/L 10/25/2015 Comp Metabolic Qqi765 ALT(SGPT) 28 U/L 10/25/2015 Comp Metabolic Pmy847 BILI T 0.7 mg/dL 10/25/2015 Comp Metabolic Hqw177 ALBUMIN 4.2 g/dL 10/25/2015 Comp Metabolic Jlr468 TPRO 6.7 g/dL 10/25/2015 Comp Metabolic Xtx593 GLOB 2.5 g/dL 10/25/2015 Comp Metabolic Scd400 A/G Ratio 1.7 Ratio 10/25/2015 Comp Metabolic Hmd202 Osmo 276 mOsmo 10/25/2015 Sensitivity Report #1 [id number] ORGANISM ESCHERICHIA COLI 10/06/2015 Sensitivity Report #1 [id number] ORG NUMBER 1 10/06/2015 Sensitivity Report #1 [id number] AMIKACIN S 10/06/2015 Sensitivity Report #1 [id number] AMOXICILLIN/CLAV S 10/06/2015 Sensitivity Report #1 [id number] AMPICILLIN/SULBACTAM S 10/06/2015 Sensitivity Report #1 [id number] CEFEPIME S 10/06/2015 Sensitivity Report #1 [id number] CEFOTAXIME S 10/06/2015 Sensitivity Report #1 [id number] AMPICILLIN S 10/06/2015 Sensitivity Report #1 [id number] CEFTAZIDIME S 10/06/2015 Sensitivity Report #1 [id number] CEFAZOLIN S 10/06/2015 Sensitivity Report #1 [id number] CEFTRIAXONE S 10/06/2015 Sensitivity Report #1 [id number] CIPROFLOXACIN S 10/06/2015 Sensitivity Report #1 [id number] GENTAMICIN S 10/06/2015 Sensitivity Report #1 [id number] LEVOFLOXACIN S 10/06/2015 Sensitivity Report #1 [id number] CEFUROXIME S 10/06/2015 Sensitivity Report #1 [id number] MEROPENEM S 10/06/2015 Sensitivity Report #1 [id number] TETRACYCLINE S 10/06/2015 Sensitivity Report #1 [id number] ERTAPENEM S 10/06/2015 Sensitivity Report #1 [id number] TOBRAMYCIN S 10/06/2015 Sensitivity Report #1 [id number] TRIMETH/SULFA S 10/06/2015 Sensitivity Report #1 [id number] IMIPENEM S 10/06/2015 Sensitivity Report #1 [id number] NITROFURANTOIN S 10/06/2015 Sensitivity Report #1 [id number] PIPERACILLIN/TAZO S 10/06/2015 Culture Urine [id number] URINE CULTURE SEE NOTES 10/06/2015 Culture Urine [id number] SOURCE: URINE 10/06/2015 Culture Urine [id number] STATUS: FINAL 10/06/2015 Culture Urine [id number] DATE PLATED: 10/03/2015 10/06/2015 Culture Urine [id number] PRELIMINARY: 10/06/2015 Culture Urine [id number] CULTURE REPORT: 10/06/2015 Urine Culture Ucult Complete >100,000 col/ml aerobic growth sent to ref lab 10/04/2015 Comp Metabolic Mzr414 NA 133 mEq/L 07/19/2015 Comp Metabolic Tab491 K 4.2 mEq/L 07/19/2015 Comp Metabolic Ykj968 CL 101 mEq/L 07/19/2015 Comp Metabolic Jqg710 CO2 25.0 mEq/L 07/19/2015 Comp Metabolic Rah064 ANION GAP 11 07/19/2015 Comp Metabolic Ybq587 GLUCOSE 293 mg/dL 07/19/2015 Comp Metabolic Mcp648 Creat 1.0 mg/dL 07/19/2015 Comp Metabolic Fsc382 eGFR 81 ml/min/1.73m2 07/19/2015 Comp Metabolic Tkn843 BUN 19 mg/dL 07/19/2015 Comp Metabolic Mbq547 B/C Ratio 19.6 Ratio 07/19/2015 Comp Metabolic Hdm663 CALCIUM 9.4 mg/dL 07/19/2015 Comp Metabolic Wer259 ALK PHOS 61 U/L 07/19/2015 Comp Metabolic Vue079 AST(SGOT) 32 U/L 07/19/2015 Comp Metabolic Yul145 ALT(SGPT) 41 U/L 07/19/2015 Comp Metabolic Inb630 BILI T 0.7 mg/dL 07/19/2015 Comp Metabolic Wnp983 ALBUMIN 4.1 g/dL 07/19/2015 Comp Metabolic Tsv665 TPRO 6.7 g/dL 07/19/2015 Comp Metabolic Dxi550 GLOB 2.6 g/dL 07/19/2015 Comp Metabolic Bcn785 A/G Ratio 1.6 Ratio 07/19/2015 Comp Metabolic Qxc310 Osmo 279 mOsmo 07/19/2015 %Hba1C Nxb873 % HbA1c 24888- 6 9.2 % 07/19/2015 %Hba1C Lrb128 Gluc Ave 217 mg/dL 07/19/2015 Cbc With [...] Ord6 hTSH II 2.72 uIU/mL 04/19/2015 %Hba1C Kkk844 % HbA1c 61320- 6 8.6 % 04/19/2015 %Hba1C Zde537 Gluc Ave 200 mg/dL 04/19/2015 Comp Metabolic Wpq420 NA 139 mEq/L 04/19/2015 Comp Metabolic Fyx110 K 4.2 mEq/L 04/19/2015 Comp Metabolic Thg370 CL 106 mEq/L 04/19/2015 Comp Metabolic Fse146 CO2 27.0 mEq/L 04/19/2015 Comp Metabolic Bzn248 ANION GAP 10 04/19/2015 Comp Metabolic Wfg976 GLUCOSE 157 mg/dL 04/19/2015 Comp Metabolic Qos261 Creat 0.9 mg/dL 04/19/2015 Comp Metabolic Ews429 eGFR 84 ml/min/1.73m2 04/19/2015 Comp Metabolic Xpi101 BUN 14 mg/dL 04/19/2015 Comp Metabolic Ymh468 B/C Ratio 14.9 Ratio 04/19/2015 Comp Metabolic Kbs646 CALCIUM 9.5 mg/dL 04/19/2015 Comp Metabolic Rds748 ALK PHOS 51 U/L 04/19/2015 Comp Metabolic Vrr334 AST(SGOT) 28 U/L 04/19/2015 Comp Metabolic Rzw741 ALT(SGPT) 29 U/L 04/19/2015 Comp Metabolic Juj396 BILI T 0.6 mg/dL 04/19/2015 Comp Metabolic Ozz916 ALBUMIN 4.1 g/dL 04/19/2015 Comp Metabolic Yhi116 TPRO 6.4 g/dL 04/19/2015 Comp Metabolic Hlc589 GLOB 2.3 g/dL 04/19/2015 Comp Metabolic Hhz349 A/G Ratio 1.8 Ratio 04/19/2015 Comp Metabolic Fnf856 Osmo 281 mOsmo 04/19/2015 Lipid Ord30 CHOL 136 mg/dL 04/19/2015 Lipid Ord30 HDL 42.0 mg/dl 04/19/2015 Lipid Ord30 TRIG 226 mg/dL 04/19/2015 Lipid Ord30 LDL 49 mg/dL 04/19/2015 Lipid Ord30 C/HDL 3.2 Ratio 04/19/2015 Review of Systems System Result Effective Dates Constitutional No anorexia 07/29/2017 Constitutional No night [...] murmurs 04/19/2014 None Full Exam - General 1995 Abdomen abdominal exam Contour: rounded 04/19/2014 None Full Exam - General 1995 Abdomen abdominal exam Contour: protuberant 04/19/2014 None Full Exam - General 1995 Musculoskeletal head and neck Overall: head atraumatic 04/19/2014 None Full Exam - General 1995 [...] accomodation 07/01/2013 None Full Exam - General 1995 [...] nourished 12/03/2012 None Full Exam - General 1995 Eyes [...] wide-based 09/29/2012 None Full Exam - General 1995 Constitutional general appearance Overall: well developed 09/29/2012 [...] protuberant 06/03/2012 None Full Exam - General 1995 Musculoskeletal [...] erythematous 04/24/2012 None Full Exam - General 1995 Neurologic gait Conventional walking: wide-based 04/24/2012 None [...] hand 12/03/2011 None Full Exam - General 1995 Integument inspection of skin Pigmentation: hypopigmentation 12/03/2011 [...] wide-based 12/03/2011 None Full Exam - General 1995 Cardiovascular [...] thick 07/18/2011 None Full Exam - General 1995 Integument inspection of skin Consistency: dry 07/18/2011 None Procedures Procedure Codes Date REMOVAL OF SKIN TAGS <W/15 CPT-4: 52396 07/02/2017 ADMIN INFLUENZA VIRUS VAC CPT-4: G0008 06/28/2017 FLU VAC NO PRSV 4 DONNA 3 YRS+ CPT-4: 57609 06/28/2017 TRIAMCINOLONE ACET INJ NOS CPT-4: J3301 06/04/2017 PPPS, SUBSEQ VISIT CPT- 4: G0439 12/13/2016 PNEUMOCOCCAL VACC [address]: 28265157 CPT-4: 73492 12/13/2016 ADMIN PNEUMOCOCCAL VACCINE SNOMED CT: 63699739 CPT-4: G0009 12/13/2016 DRAIN/INJECT JOINT/BURSA CPT-4: 07716 08/30/2016 TRIAMCINOLONE ACET INJ NOS CPT-4: J3301 08/30/2016 URINALYSIS NONAUTO W/O SCOPE CPT-4: 69912 07/13/2016 INJ TRIGGER POINT 1/2 MUSCL CPT-4: 84254 06/21/2016 ADMIN INFLUENZA VIRUS VAC CPT-4: G0008 05/24/2016 FLU VACC PRSV FREE INC ANTIG Formatting Model/CDA Sections, Assigned to/Judy Pierre CPT-4: 68739Wwsgodf 05/24/2016 URINALYSIS NONAUTO W/O SCOPE CPT-4: 83252 10/03/2015 ADMIN INFLUENZA VIRUS VAC CPT-4: G0008 07/20/2015 IMMUNIZATION ADMIN CPT- 4: 90777 07/20/2015 FLU VACC PRSV FREE INC ANTIG Formatting Model/CDA Sections, Assigned to/Judy Pierre CPT-4: 97346Aycssic 07/20/2015 URINALYSIS NONAUTO W/O SCOPE CPT-4: 71613 05/18/2015 URINALYSIS NONAUTO W/O SCOPE CPT-4: 91240 05/09/2015 ADMIN INFLUENZA VIRUS VAC CPT-4: G0008 06/03/2014 FLU VAC NO PRSV 4 DONNA 3 YRS+ Assigned to/Judy Pierre CPT-4: 09757Gjryqch 06/03/2014 TRIAMCINOLONE ACET INJ NOS CPT-4: J3301 05/04/2014 ADMIN INFLUENZA VIRUS VAC CPT-4: G0008 07/01/2013 FLULAVAL VACC, 3 YRS & >, IM CPT-4: Q2036 07/01/2013 PRESCRIP TRANSMIT VIA ERX SY CPT-4: G8553 03/04/2013 PRESCRIP TRANSMIT VIA ERX SY CPT-4: G8553 02/04/2013 DRAIN/INJECT JOINT/BURSA CPT-4: 05649 09/25/2012 ADMIN INFLUENZA VIRUS VAC CPT-4: G0008 06/04/2012 FLULAVAL VACC, 3 YRS & >, IM CPT-4: Q2036 06/04/2012 ADMIN PNEUMOCOCCAL VACCINE SNOMED CT: 28299917 CPT-4: G0009 06/04/2012 PRESCRIP TRANSMIT VIA ERX SY CPT-4: G8553 04/09/2012 ROCEPHIN, PER 250 MG CPT- 4: J0696 03/04/2012 PRESCRIP TRANSMIT VIA ERX SY CPT-4: G8553 03/04/2012 DESTRUCT PREMALG LESION CPT-4: 30921 07/24/2011 DESTRUCT PREMALG LES 2-14 CPT-4: 34384 07/24/2011 DESTRUCT PREMALG LES 2-14 CPT-4: 01296 07/18/2011 DESTRUCT PREMALG LESION CPT-4: 60607 07/18/2011 Vital Signs Date Vital 07/29/2017 Blood Pressure 1: 148/76 Code: 8480-6 BMI: 43.7 Code: 90365-2 Heart Rate 1: 75 bpm Height: 5'6" SpO2: 97% Weight: 275 lbs 07/02/2017 Blood Pressure 1: 148/78 Code: 8480-6 BMI: 43.4 Code: 74973-5 Heart Rate 1: 55 bpm Height: 5'6" SpO2: 97% Weight: 273 lbs 06/04/2017 Blood Pressure 1: 132/58 Code: 8480-6 BMI: 43.1 Code: 99820-0 Heart Rate 1: 64 bpm Height: 5'6" SpO2: 96% Weight: 271 lbs 04/03/2017 Blood Pressure 1: 124/70 Code: 8480-6 BMI: 44.2 Code: 40155-3 Heart Rate 1: 70 bpm Height: 5'6" Height: 5'6" SpO2: 95% Weight: 278 lbs 12/13/2016 Blood Pressure 1: 150/78 Code: 8480-6 BMI: 44.2 Code: 22112-8 Heart Rate 1: 67 bpm Height: 5'6" SpO2: 97% Weight: 278 lbs 12/05/2016 Blood Pressure 1: 122/80 Code: 8480-6 Blood Pressure 1: 126/90 Code: 8480-6 BMI: 44.2 Code: 09402-3 Heart Rate 1: 70 bpm Height: 5'6" SpO2: 97% Weight: 278 lbs 08/30/2016 Blood Pressure 1: 134/78 Code: 8480-6 Blood Pressure 1: 134/70 Code: 8480-6 BMI: 43.9 Code: 39041-7 Heart Rate 1: 62 bpm Height: 5'6" SpO2: 98% Weight: 276 lbs 07/13/2016 Blood Pressure 1: 140/68 Code: 8480-6 BMI: 43.2 Code: 22369-0 Heart Rate 1: 59 bpm Height: 5'6" SpO2: 96% Weight: 272 lbs 06/21/2016 Blood Pressure 1: 140/70 Code: 8480-6 BMI: 43.2 Code: 80724-3 Heart Rate 1: 70 bpm Height: 5'6" SpO2: 94% Weight: 272 lbs 05/24/2016 Blood Pressure 1: 138/72 Code: 8480-6 Blood Pressure 1: 138/70 Code: 8480-6 BMI: 43.2 Code: 47515-8 Heart Rate 1: 65 bpm Height: 5'6" SpO2: 97% Weight: 272 lbs 01/24/2016 Blood Pressure 1: 122/62 Code: 8480-6 BMI: 43.1 Code: 64305-3 Heart Rate 1: 61 bpm Height: 5'6" SpO2: 97% Weight: 271 lbs 10/27/2015 Blood Pressure 1: 122/64 Code: 8480-6 BMI: 42.4 Code: 26024-4 Heart Rate 1: 58 bpm Height: 5'6" SpO2: 97% Weight: 267 lbs 09/21/2015 Blood Pressure 1: 128/70 Code: 8480-6 BMI: 43.2 Code: 97795-1 Heart Rate 1: 65 bpm Height: 5'6" SpO2: 98% Weight: 272 lbs 08/17/2015 Blood Pressure 1: 120/64 Code: 8480-6 BMI: 44.8 Code: 02447-5 Heart Rate 1: 57 bpm Height: 5'6" SpO2: 97% Weight: 282 lbs 07/20/2015 Blood Pressure 1: 144/70 Code: 8480-6 BMI: 45.3 Code: 49110-4 Heart Rate 1: 67 bpm Height: 5'6" SpO2: 95% Weight: 285 lbs 05/09/2015 Blood Pressure 1: 180/60 Code: 8480-6 Blood Pressure 2: 140/80 Code: 8480-6 04/20/2015 Blood Pressure 1: 138/64 Code: 8480-6 BMI: 45.6 Code: 69851-4 Heart Rate 1: 60 bpm Height: 5'6" SpO2: 98% Weight: 287 lbs 02/28/2015 Blood Pressure 1: 142/78 Code: 8480-6 BMI: 45.8 Code: 76180-9 Heart Rate 1: 68 bpm Height: 5'6" Weight: 288 lbs 02/14/2015 Blood Pressure 1: 142/78 Code: 8480-6 BMI: 45.3 Code: 47876-8 Heart Rate 1: 88 bpm Height: 5'6" Weight: 285 lbs 11/11/2014 Blood Pressure 1: 152/72 Code: 8480-6 Heart Rate 1: 64 bpm Weight: 282 lbs 10/04/2014 Blood Pressure 1: 140/72 Code: 8480-6 BMI: 45.6 Code: 68627-9 Heart Rate 1: 76 bpm Height: 5'6" Weight: 287 lbs 08/02/2014 Blood Pressure 1: 132/62 Code: 8480-6 BMI: 45.6 Code: 56350-8 Heart Rate 1: 64 bpm Height: 5'6" Weight: 287 lbs 06/15/2014 Blood Pressure 1: 142/62 Code: 8480-6 BMI: 44.7 Code: 99116-0 Heart Rate 1: 68 bpm Height: 5'6" SpO2: 97% Weight: 281 lbs 05/04/2014 Blood Pressure 1: 140/78 Code: 8480-6 BMI: 45.0 Code: 96136-3 Heart Rate 1: 60 bpm Height: 5'6" SpO2: 98% Weight: 283 lbs 04/19/2014 Blood Pressure 1: 130/62 Code: 8480-6 BMI: 44.7 Code: 63842-1 Heart Rate 1: 56 bpm Height: 5'6" Weight: 281 lbs 02/08/2014 Blood Pressure 1: 118/58 Code: 8480-6 BMI: 45.3 Code: 54553-8 Heart Rate 1: 60 bpm Height: 5'6" Weight: 285 lbs 01/13/2014 Blood Pressure 1: 112/52 Code: 8480-6 BMI: 44.2 Code: 44749-8 Heart Rate 1: 60 bpm Height: 5'6" Weight: 278 lbs 10/14/2013 Blood Pressure 1: 132/70 Code: 8480-6 BMI: 43.1 Code: 35868-1 Heart Rate 1: 60 bpm Height: 5'6" Weight: 271 lbs 07/01/2013 Blood Pressure 1: 158/76 Code: 8480-6 Heart Rate 1: 52 bpm Weight: 263 lbs 05/13/2013 Weight: 268 lbs 04/15/2013 Weight: 272 lbs 03/04/2013 Blood Pressure 1: 146/68 Code: 8480-6 BMI: 45.6 Code: 54470-1 Heart Rate 1: 68 bpm Height: 5'6" Weight: 287 lbs 02/04/2013 Blood Pressure 1: 140/68 Code: 8480-6 BMI: 46.1 Code: 37444-5 Heart Rate 1: 64 bpm Height: 5'6" Weight: 290 lbs 12/03/2012 Blood Pressure 1: 124/62 Code: 8480-6 BMI: 44.8 Code: 70651-4 Heart Rate 1: 64 bpm Height: 5'6" [...] 1: 146/76 Code: 8480-6 BMI: 44.7 Code: 52240-0 Heart Rate 1: 60 bpm Height: 5'6" Weight: 281 lbs 06/25/2012 Blood Pressure 1: 128/76 Code: 8480-6 BMI: 43.7 Code: 69311-6 Heart Rate 1: 72 bpm Height: 5'6" Weight: 275 lbs 06/03/2012 Blood Pressure 1: 136/62 Code: 8480-6 BMI: 43.2 Code: 76969-8 Heart Rate 1: 72 bpm Height: 5'6" Respiratory Rate: 20 bpm Weight: 272 lbs 04/24/2012 Blood Pressure 1: 116/60 Code: 8480-6 BMI: 42.3 Code: 26588-7 Heart Rate 1: 68 bpm Height: 5'6" Respiratory Rate: 16 bpm Weight: 266 lbs 04/09/2012 Blood Pressure 1: 150/82 Code: 8480-6 Heart Rate 1: 72 bpm Weight: 03/04/2012 Blood Pressure 1: 124/70 Code: 8480-6 Heart Rate 1: 72 bpm Respiratory Rate: 16 bpm Weight: 277 lbs 12/03/2011 Blood Pressure 1: 120/60 Code: 8480-6 BMI: 44.8 Code: 99167-0 Heart Rate 1: 68 bpm Height: 5'6" Respiratory Rate: 16 bpm Weight: 282 lbs 10/31/2011 Blood Pressure 1: 120/60 Code: 8480-6 BMI: 44.8 Code: 81743-5 Heart Rate 1: 74 bpm Height: 5'6" Respiratory Rate: 16 bpm Weight: 282 lbs 08/29/2011 Blood Pressure 1: 152/76 Code: 8480-6 BMI: 44.5 Code: 47108-7 Heart Rate 1: 66 bpm Height: 5'6" Respiratory Rate: 16 bpm Weight: 280 lbs 07/24/2011 Blood Pressure 1: 142/80 Code: 8480-6 BMI: 44.8 Code: 56528-3 Heart Rate 1: 66 bpm Height: 5'6" Respiratory Rate: 16 bpm Weight: 282 lbs 07/18/2011 Blood Pressure 1: 136/60 Code: 8480-6 BMI: 44.5 Code: 05901-8 Heart Rate 1: 72 bpm Height: 5'6" [...] Annual Medicare Wellness Exam Handling Stress usually erne effectively 12/13/2016 None Annual Medicare Wellness Exam [...] when he could not remember what the disintegrator was talking about at religious - pt states that he has had [...] Present Encounters Encounter Performer Location Codes Date ([id number]) 36681 EST. PATIENT, LEVEL IV Diagnosis: Type 2 diabetes mellitus without complications[ICD10: E11.9] Diagnosis: Essential (primary) hypertension[ICD10: I10] Diagnosis: Mixed hyperlipidemia[ICD10: E78.2] Maria Victoria Harrell MD, [facility] CPT- 4: 43172 07/29/2017 [id number]) 61653 EST. PATIENT, LEVEL III Diagnosis: Lumbago with sciatica, right side[ICD10: M54.41] Sunitha Harrell MD, [facility] CPT-4: 50611 06/04/2017 [id number]) 76968 EST. PATIENT, LEVEL IV Diagnosis: Essential (primary) hypertension[ICD10: I10] Diagnosis: Type 2 diabetes mellitus with diabetic polyneuropathy[ICD10: E11.42] Diagnosis: Cough[ICD10: R05] Diagnosis: Palpitations[ICD10: R00.2] Maria Victoria Harrell MD, [facility] CPT-4: 03051 04/03/2017 ([id number]) 86496 EST. PATIENT, LEVEL IV Diagnosis: Essential (primary) hypertension[ICD10: I10] Diagnosis: Type 2 diabetes mellitus without complications[ICD10: E11.9] Maria Victoria Harrell MD, [facility] CPT-4: 12704 12/05/2016 [id number] 47853 EST. PATIENT, LEVEL IV Diagnosis: Essential (primary) hypertension[ICD10: I10] Diagnosis: Type 2 diabetes mellitus with hyperglycemia[ICD10: E11.65] Diagnosis: Morbid (severe) obesity due to excess calories[ICD10: E66.01] Diagnosis: Essential tremor[ICD10: G25.0] Diagnosis: Pain in right hip[ICD10: M25.551] Maria Victoria Harrell MD, [facility] CPT- 4: 54934 08/30/2016 ([id number]) 21021 EST. PATIENT, LEVEL III Diagnosis: Pain in left forearm[ICD10: M79.632] Diagnosis: Dysuria[ICD10: R30.0] Sunitha Harrell MD, [facility] CPT-4: 73308 07/13/2016 ([id number]) 42815 EST. PATIENT, LEVEL III Diagnosis: Type 2 diabetes mellitus with hyperglycemia[ICD10: E11.65] Diagnosis: Essential tremor[ICD10: G25.0] Diagnosis: Encounter for immunization[ICD10: Z23] Diagnosis: Essential (primary) hypertension[ICD10: I10] Maria Victoria Harrell MD, [facility] CPT-4: 59289 05/24/2016 [id number]) 94833 EST. PATIENT, LEVEL IV Diagnosis: Type 2 diabetes mellitus with hyperglycemia[ICD10: E11.65] Diagnosis: Essential (primary) hypertension[ICD10: I10] Diagnosis: Dorsalgia, unspecified[ICD10: M54.9] Maria Victoria Harrell MD, [facility] CPT- 4: 13179 01/24/2016 [id number]) 10751 EST. PATIENT, LEVEL IV Diagnosis: Type 2 diabetes mellitus with hyperglycemia[ICD10: E11.65] Diagnosis: Essential (primary) hypertension[ICD10: I10] Diagnosis: Dorsalgia, unspecified[ICD10: M54.9] Maria Victoria Harrell MD [facility] CPT- 4: 09215 10/27/2015 ([id number]) 52872 EST. PATIENT, LEVEL III Diagnosis: Type 2 diabetes mellitus with hyperglycemia[ICD10: E11.65] SHAILA Macedo MD CPT-4: 36431 09/21/2015 ([id number]) 83058 EST. PATIENT, LEVEL IV Diagnosis: Type 2 diabetes mellitus with hyperglycemia[ICD10: E11.65] Diagnosis: Essential (primary) hypertension[ICD10: I10] Maria Victoria Harrell MD [facility] CPT-4: 32845 08/17/2015 ([id number]) 08539 EST. PATIENT, LEVEL IV Diagnosis: VACCIN FOR INFLUENZA[ICD10: Z23] Diagnosis: Type 2 diabetes mellitus with hyperglycemia[ICD10: E11.65] Diagnosis: Morbid (severe) obesity due to excess calories[ICD10: E66.01] Diagnosis: Dorsalgia, unspecified[ICD10: M54.9] Maria Victoria Harrell MD [facility] CPT- 4: 53425 07/20/2015 ([id number]) 80172 EST. PATIENT, LEVEL IV Diagnosis: Diabetes mellitus type 2, uncontrolled[ICD9: 250.02] Diagnosis: ESSENTIAL HYPERTENSION[ICD9: 401.9] Diagnosis: MORBID OBESITY[ICD9: 278.01] Diagnosis: Peripheral neuropathic pain[ICD9: 356.9] Diagnosis: Diabetic neuropathy[ICD9: 250.60] Maria Victoria Harrell MD [facility] CPT- 4: 44472 04/20/2015 ([id number]) Miscellaneous no charge Diagnosis: Cerumen impaction[ICD9: 380.4] Maria Victoria Harrell MD [facility] CPT-4: 66614 02/28/2015 ([id number]) 09650 EST. PATIENT, LEVEL IV Diagnosis: Diabetes mellitus type 2, uncontrolled[ICD9: 250.02] Diagnosis: ESSENTIAL HYPERTENSION[ICD9: 401.9] Maria Victoria Harrell MD [facility] CPT- 4: 70054 02/14/2015 ([id number]) 39893 EST. PATIENT, LEVEL III Diagnosis: Diabetes mellitus type 2, uncontrolled[ICD9: 250.02] Maria Victoria Harrell MD, [facility] CPT-4: 97326 11/11/2014 ([id number]) 88305 EST. PATIENT, LEVEL IV Diagnosis: ESSENTIAL HYPERTENSION[ICD9: 401.9] Diagnosis: DIABETES TYPE II[ICD9: 250.00] Diagnosis: Esophageal reflux[ICD9: 530.81] Diagnosis: DYSPHAGIA NEC[ICD9: 787.29] Maria Victoria Harrell MD [facility] CPT-4: 22281 10/04/2014 ([id number]) 74901 EST. PATIENT, LEVEL IV Diagnosis: DIABETES TYPE II[ICD9: 250.00] Diagnosis: ESSENTIAL HYPERTENSION[ICD9: 401.9] Diagnosis: BPH (benign prostatic hyperplasia)[ICD9: 600.00] Maria Victoria Harrell MD [facility] CPT-4: 50910 08/02/2014 ([id number]) 86996 EST. PATIENT, LEVEL III Diagnosis: Enlarged prostate[ICD9: 600.00] Maria Victoria Harrell MD [facility] CPT-4: 58175 06/15/2014 ([id number]) 41754 EST. PATIENT, LEVEL III Diagnosis: Right hip pain[ICD9: 719.45] Diagnosis: BACKACHE[ICD9: 724.5] Diagnosis: Sacroiliitis[ICD9: 720.2] Sunitha Harrell MD, [facility] CPT-4: 36337 05/04/2014 ([id number]) 94943 EST. PATIENT, LEVEL IV Diagnosis: DM W/O COMPLICATION TYPE II, UNCONTROLLED[ICD9: 250.02] Diagnosis: ESSENTIAL HYPERTENSION[ICD9: 401.9] Maria Victoria Harrell MD, [facility] CPT- 4: 93862 04/19/2014 ([id number]) 16499 EST. PATIENT, LEVEL IV Diagnosis: Mild cognitive impairment[ICD9: 331.83] Diagnosis: Nightmares[ICD9: 307.47] Diagnosis: Sleep apnea[ICD9: 780.57] Maria Victoria Harrell MD [facility] CPT-4: 48849 02/08/2014 ([id number]) 77919 EST. PATIENT, LEVEL III Diagnosis: DM W/O COMPLICATION TYPE II, UNCONTROLLED[ICD9: 250.02] Maria Victoria Harrell MD [facility] CPT-4: 46073 01/13/2014 ([id number]) 96583 EST. 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 PATIENT, LEVEL IV Diagnosis: DIABETES TYPE II[SNOMED: 826395136] Diagnosis: ESSENTIAL HYPERTENSION[SNOMED: 86542267] Diagnosis: Flat feet[ICD9: 734] Maria Victoria Harrell MD [facility] CPT-4: 25337 07/01/2013 ([id number]) Miscellaneous no charge Diagnosis: DM W/O COMPLICATION TYPE II, UNCONTROLLED[SNOMED: 27255867] Diagnosis: MORBID OBESITY[ICD9: 278.01] Maria Victoria Harrell MD [facility] CPT-4: 89035 05/13/2013 ([id number]) Miscellaneous no charge Diagnosis: MORBID OBESITY[ICD9: 278.01] Maria Victoria Harrell MD [facility] CPT-4: 69821 04/15/2013 ([id number]) 83673 EST. PATIENT, LEVEL III Diagnosis: DM W/O COMPLICATION TYPE II, UNCONTROLLED[SNOMED: 18359676] Diagnosis: Dietary restriction[ICD9: V65.3] Diagnosis: Morbid obesity with BMI of 40.0-44.9, adult[ICD9: 278.01] Maria Victoria Harrell MD [facility] CPT-4: 52588 03/04/2013 [id number]) 38212 EST. PATIENT, LEVEL IV Diagnosis: DM W/O COMPLICATION TYPE II, UNCONTROLLED[SNOMED: 63442760] Diagnosis: ENTHESOPATHY OF HIP[ICD9: 726.5] Diagnosis: BACKACHE[ICD9: 724.5] [facility] CPT-4: 55878 02/04/2013 ([id number]) 16126 EST. PATIENT, LEVEL III Diagnosis: DM W/O COMPLICATION TYPE II, UNCONTROLLED[SNOMED: 07417656] Maria Victoria Harrell MD, [facility] CPT-4: 69887 12/03/2012 ([id number]) 04373 EST. PATIENT, LEVEL III Diagnosis: Tinnitus[ICD9: 388.30] Diagnosis: Cerumen impaction[ICD9: 380.4] Sunitha Harrell MD, [facility] CPT-4: 00615 10/14/2012 ([id number]) 14372 EST. PATIENT, LEVEL III Diagnosis: ENTHESOPATHY OF HIP[ICD9: 726.5] Diagnosis: JOINT PAIN-PELVIS[ICD9: 719.45] Maria Victoria Harrell MD, [facility] CPT-4: 00395 09/29/2012 72727 EST. PATIENT, LEVEL II Diagnosis: Right hip pain[ICD9: 719.45] Diagnosis: Bursitis of hip, right[ICD9: 726.5] Diagnosis: DM W/O COMPLICATION TYPE II, UNCONTROLLED[SNOMED: 11531413] Sunitha Harrell MD, [facility] CPT-4: 82230 09/25/2012 ([id number]) 07370 EST. PATIENT, LEVEL III Diagnosis: DM W/O COMPLICATION TYPE II, UNCONTROLLED[SNOMED: 16861844] Maria Victoria Harrell MD, [facility] CPT-4: 90973 08/27/2012 ([id number]) 49415 EST. PATIENT, LEVEL III Diagnosis: Diabetes mellitus out of control[SNOMED: 61743152] Maria Victoria Harrell MD, [facility] CPT-4: 10464 06/25/2012 ([id number]) 40899 EST. PATIENT, LEVEL III Diagnosis: DM W/O COMPLICATION TYPE II, UNCONTROLLED[SNOMED: 87577958] Diagnosis: ESSENTIAL HYPERTENSION[SNOMED: 47309939] Maria Victoria Harrell MD, [facility] CPT-4: 12536 06/03/2012 ([id number]) 29022 EST. PATIENT, LEVEL III Diagnosis: DM W/O COMPLICATION TYPE II, UNCONTROLLED[SNOMED: 05910635] Diagnosis: Back pain[ICD9: 724.5] Maria Victoria Harrell MD, [facility] CPT-4: 20901 04/24/2012 ([id number]) 92371 EST. PATIENT, LEVEL IV Diagnosis: BACKACHE[ICD9: 724.5] Diagnosis: MORBID OBESITY[ICD9: 278.01] Diagnosis: Depression[ICD9: 311] Maria Victoria Harrell MD [facility] CPT-4: 48820 04/09/2012 [id number]) 95922 EST. PATIENT, LEVEL IV Diagnosis: Diabetes mellitus type 2, uncontrolled[SNOMED: 88363599] Diagnosis: ESSENTIAL HYPERTENSION[SNOMED: 86980461] Maria Victoria Harrell MD [facility] CPT-4: 83052 03/04/2012 ([id number]) 27816 EST. PATIENT, LEVEL IV Diagnosis: DM W/O COMPLICATION TYPE II, UNCONTROLLED[SNOMED: 34210840] Diagnosis: MORBID OBESITY[ICD9: 278.01] Maria Victoria Harrell MD [facility] CPT-4: 92358 12/03/2011 ([id number]) 79133 EST. PATIENT, LEVEL IV Diagnosis: DM W/O COMPLICATION TYPE II, UNCONTROLLED[SNOMED: 98926257] Diagnosis: ESSENTIAL HYPERTENSION[SNOMED: 07703536] Diagnosis: Hyperlipidemia[ICD9: 272.4] Diagnosis: Morbid obesity[ICD9: 278.01] Maria Victoria Harrell MD [facility] CPT-4: 49770 10/31/2011 ([id number]) 02861 EST. PATIENT, LEVEL IV Diagnosis: ESSENTIAL HYPERTENSION[SNOMED: 81319384] Diagnosis: DM W/O COMPLICATION TYPE II, UNCONTROLLED[SNOMED: 24896929] Diagnosis: MORBID OBESITY[ICD9: 278.01] Maria Victoria Harrell MD [facility] CPT-4: 05374 08/29/2011 44795 EST. PATIENT, LEVEL IV Diagnosis: Diabetes mellitus type 2, uncontrolled[SNOMED: 10199845] Diagnosis: ESSENTIAL HYPERTENSION[SNOMED: 56599094] Diagnosis: Actinic keratosis[ICD9: 702.0] Maria Victoria Harrell MD [facility] CPT-4: 24734 07/18/2011 Plan of Care Planned Activity Notes [...] 07/29/2017 Appointment: Maria Victoria Harrell WPtel: [phone] [facility] (15 min) Moderate 07/29/2017 Patient Education: Patient Medication Summary Completed 07/29/2017 Patient Education: Obesity Completed 07/29/2017 Visit Plan: Skin tag removed - pt tolerated procedure well - Wound Instructions - Pt was instructed to keep the wound clean, wash with antibacterial soap, use triple antibiotic ointment, call if redness, pustular drainage, or any other acute concerns. 07/02/2017 [facility]ment[phone] ([facility] min) Complex 07/02/2017 Patient Education: Patient Medication Summary Completed 07/02/2017 Appointment: Injection 06/28/2017 Patient Education: Patient Medication Summary Completed 06/28/2017 Visit Plan: Sciatica- exercises discussed with the patient, pt to continue with antiinflammatories. Pt is to call if the symptoms do not improve or if they worsen. Kenalog injection today in the office. 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 Hypertension - well controlled - continue with current medications, continue with no added salt diet. Pt has been encouraged to exercise daily. The pt has been advised to call the office if there are any acute concerns about change in blood pressure readings at home. 04/03/2017 Appointment: Maria Victoria Harrell WPtel: [address] [place], [place] [address] (15 min) Moderate 04/03/2017 Patient Education: Patient [...] surrogate. 12/13/2016 [facility]ment[phone] [place] [address] - Annual Wellness Visit 12/13/2016 Patient Education: Patient Medication Summary Completed 12/13/2016 Care Plan: Referral Order SNOMED-CT : 394651864 Pending 12/13/2016 Visit Plan: Hypertension - well [...] controlled. 12/05/2016 Appointment: [phone] ([facility] min) Moderate 12/05/2016 Patient Education: Patient Medication Summary Completed 12/05/2016 Patient Education: Obesity Completed 12/05/2016 Care Plan: CT ABD & PELVIS W/O CONTRAST LOINC : 30593-0 Pending 12/05/2016 Patient Education: Patient Medication Summary [...] care 08/30/2016 Appointment: Maria Victoria Harrell [phone] [place] (15 min) Moderate 08/30/2016 Patient Education: Patient Medication Summary Completed 08/30/2016 Patient Education: Obesity Completed 08/30/2016 Patient Education: Hypertension Completed 08/30/2016 Patient Education: Patient Medication Summary Completed 08/23/2016 Visit Plan: Left forearm pain-use voltaren gel as needed-xray forearm for further evaluation UA negative-patient instructed to increase po fluids-call if symptoms do not resolve 07/13/2016 Appointment: Sunitha Moran WPtel: [phone] [phone] [place] (10 min) Simple 07/13/2016 Patient Education: [...] process. 06/21/2016 Appointment: Sunitha Moran WPtel: [phone] [phone] [place] (30 min) Complex 06/21/2016 Patient Education: Patient Medication Summary Completed 06/21/2016 Appointment: Sunitha Moran WPtel: [phone] [phone] [place] (30 min) Complex 06/15/2016 Visit Plan: [...] improve. 01/24/2016 Appointment: Maria Victoria Harrell WPtel: [address] [place], [place] [address] (15 min) Moderate 01/24/2016 Patient Education: Patient [...] improve. 10/27/2015 Appointment: [facility] Victoria [phone] (15 min) Moderate 10/27/2015 Patient Education: Patient [...] supper 09/21/2015 Appointment: Maria Victoria Har[facility]el[phone] (15 min) Moderate 09/21/2015 Patient Education: Patient [...] 08/17/2015 Appointment: Maria Victoria Har[facility]el[phone] (15 min) Moderate 08/17/2015 Patient Education: Patient [...] 07/20/2015 Appointment: Maria Victoria Harrell [facility]el[phone] [place] (15 min) Moderate 07/20/2015 Patient Education: [...] 04/20/2015 Appointment: Maria Victoria Harrell [facility]el[phone] (15 min) Moderate 04/20/2015 Patient Education: Patient [...] 02/14/2015 Appointment: Maria Victoria Harrell WPtel: [phone] [facility] [place] Follow up 02/14/2015 Patient Education: Patient Medication [...] control. 11/11/2014 Appointment: Maria Victoria Harrell WPtel: [phone] [facility] Follow up 11/11/2014 Patient Education: Patient Medication Summary Completed 11/11/2014 Appointment: Maria Victoria Harrell WPtel: [facility] Follow up 11/04/2014 Visit Plan: Esophageal [...] 10/04/2014 Appointment: Maria Victoria [facility]el[phone] Follow up 10/04/2014 Patient Education: Patient Medication Summary Completed 10/04/2014 Patient Education: Hypertension Completed 10/04/2014 Appointment: Maria Victoria Harrell WPtel: [address] [place], [place] [phone] Follow up 08/19/2014 Visit Plan: Diabetes Mellitus [...] avodart 08/02/2014 Appointment: Maria Victoria Harrell WPtel: [address] [place], [place] [phone] Sick 08/02/2014 Patient Education: Patient Medication Summary Completed 08/02/2014 Patient Education: Hypertension Completed 08/02/2014 Visit Plan: Enlarged prostate with decreased urine flow - recommended that the patient start on tamsulosin 0.4mg daily - will need to start him on this in about 2-3 weeks. Check PSA in 2-3 weeks. 06/15/2014 Appointment: Maria Victoria Harrell WPtel: [address] [place], [place] [phone] Follow up 06/15/2014 Patient Education: Patient Medication Summary Completed 06/15/2014 Appointment: Maria Victoria Harrell WPtel: [address] [place], [place] [phone] [place] Injection 06/03/2014 Patient Education: Patient Medication [...] - pt to see this Opthamologist in [place] - May 25. 04/19/2014 Appointment: Maria Victoria Harrell [facility]Ptel[phone] Follow up 04/19/2014 Patient Education: Patient Medication [...] settings. 02/08/2014 Appointment: Maria Victoria Harrell [facility]Ptel[phone] Follow up 02/08/2014 Patient Education: Patient Medication [...] eval and shoes. 01/13/2014 Appointment: Maria Victoria Harrelltel: [facility] Follow up 01/13/2014 Patient Education: Patient Medication [...] - recommended referral to Dr. Fine at [facility] [address] [place] [address]. 10/14/2013 Patient Education: Patient Medication Summary Completed [...] 07/01/2013 Appointment: Maria Victoria Harrell WPtel: [phone] [facility] Follow up 07/01/2013 Patient Education: Patient Medication Summary Completed 07/01/2013 Patient Education: Hypertension Completed 07/01/2013 Appointment: Maria Victoria Harrell WPtel: [phone] [facility] Other 05/13/2013 Patient Education: Patient Medication Summary Completed 05/13/2013 Appointment: Maria Victoria Harrell WPtel: [phone] [facility] Other 04/15/2013 Patient Education: Patient Medication Summary [...] 03/04/2013 Appointment: Maria Victoria Harrell WPtel: [phone] [facility] Follow up 03/04/2013 Patient Education: Patient Medication [...] body. 02/04/2013 Appointment: Maria Victoria Harrell WPtel: [address] [place], [place] [phone] Follow up 02/04/2013 Patient Education: Patient Medication [...] bedtime. 12/03/2012 Appointment: Maria Victoria Harrell WPtel: [address] [place], [place] [phone] Follow up 12/03/2012 Patient Education: Patient Medication Summary Completed 12/03/2012 Visit Plan: Tinnitus-cerumen impaction-cerumen adhered to left TM-discussed using sweet oil nightly for the next week and call if symptoms have not improved. Patient verbalized understanding of plan . 10/14/2012 Appointment: Sunitha Moran WPtel: [address] [place], [place] [phone] [facility] 10/14/2012 Patient Education: Patient Medication Summary Completed 10/14/2012 Visit Plan: Arthritis- occasionally uncontrolled symptoms- recommend pt to take antiinflammatory as directed for pain control. Use tylenol for break through pain symptoms. 09/29/2012 Appointment: Maria Victoria Harrell [facility]Ptel[phone] Other 09/29/2012 Patient Education: Patient Medication Summary [...] sugars 09/25/2012 Appointment: Sunitha Moran WPtel: [phone] [phone] [place] Other 09/25/2012 Patient Education: Patient Medication [...] 08/27/2012 Appointment: Maria Victoria Harrell WPtel: [phone] [facility] Follow up 08/27/2012 Patient Education: Patient Medication [...] 06/25/2012 Appointment: Maria Victoria Harrell [facility]Ptel: [phone] Follow up 06/25/2012 Patient Education: Patient Medication [...] 06/03/2012 Appointment: Maria Victoria Harrell WPtel: [phone] [facility] [place] Follow up 06/03/2012 Patient Education: Patient Medication [...] 04/24/2012 Appointment: Maria Victoria Harrell [facility]Ptel[phone] Follow up 04/24/2012 Patient Education: Patient Medication [...] improve. 04/09/2012 Appointment: Maria Victoria Harrell WPtel: [phone] [facility] [place] Other 04/09/2012 Patient Education: Patient Medication Summary Completed 04/09/2012 Patient Education: .Amazing charts Exercise for Sciatica Completed 04/09/2012 Appointment: Sunitha Moran WPtel: [phone] [phone] Other 03/13/2012 Visit Plan: Diabetes Mellitus - [...] pain. 03/04/2012 Appointment: Maria Victoria Harrell WPtel: [phone] [facility] Other 03/04/2012 Patient Education: Patient Medication Summary [...] pains/fatigue. 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 10/31/2011 Appointment: Maria Victoria Harrell WPtel: [phone] [facility] Other 10/31/2011 Patient Education: Patient Medication Summary [...] 08/29/2011 Appointment: Maria Victoria Harrell WPtel: [phone] [facility] Other 08/29/2011 Patient Education: Patient Medication Summary Completed 08/29/2011 Patient Education: High Blood Pressure: Essential Hypertension Completed 08/29/2011 Visit Plan: left index finger irritated actinic keratosis removed actinic keratosis removed from dorsum of hand as well and in web of the 4th digit 07/24/2011 Appointment: Maria Victoria Harrell WPtel: [phone] [facility] Surgical Procedure 07/24/2011 Patient Education: Patient Medication [...] daily. 07/18/2011 Appointment: Maria Victoria Harrell WPtel: [phone] [place], [place] [address] [facility] 07/18/2011 Patient Education: Patient Medication Summary Completed 07/18/2011 Patient Education: High Blood Pressure: Essential Hypertension Completed 07/18/2011 Referral: Jose Manuel Referral Appointment Requested Referral: Kiran Laird MD WPtel: Referral Completed Instructions Comment Pt is to INCREASE HIS LANTUS TO [...] HIS LANTUS TO 20 UNITS DAILY. . 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 Hypertension - well controlled - continue with current medications, continue with no added salt diet. Pt has been encouraged to exercise daily. The pt has been advised to call the office if there are any acute concerns about change in blood pressure readings at home. . left index finger irritated actinic keratosis removed actinic keratosis removed from dorsum of hand as well and in web of the 4th digit . Arthritis- occasionally uncontrolled symptoms- recommend pt to take antiinflammatory as directed for pain control. Use tylenol for break through pain symptoms. . Diabetes Mellitus - Uncontrolled - per [...] further investigative studies planned by his current senior clerk. . Hypertension - well controlled - continue [...] renal function or other disease process. . Mild Cognitive Impairment - discussed with [...] with adjustments of his CPAP settings. . Tinnitus-cerumen impaction-cerumen adhered to left TM-discussed using sweet oil nightly for the next week and call if symptoms have not improved. Patient verbalized understanding of plan . . Diabetes Mellitus - controlled - per [...] at home. BPH - start avodart . Diabetes Mellitus - Uncontrolled - per [...] of only 3 units increase was made. INCREASE LANTUS TO 30 UNITS TWICE DAILY!!!!! [...] to obtain more profound weight loss. . Low back pain- the patient was [...] pustular drainage, or any other acute concerns. xray left forearm . Left forearm pain-use [...] help to decrease his back pain. . Hypertension - well controlled - continue [...] pain is worsening or does not improve. trujeo - new insulin dose would be 60 units daily Belviq for weight loss - 10mg twice daily - see cost at [facility] . Diabetes Mellitus - Uncontrolled - per [...] readings are starting to become less controlled. LEVEMIR - ask insurance how much this [...] lunch and 8 units at supper . Hypertension - well controlled - continue [...] to allow for greater blood glucose control. glucosamine and chondroitin over the counter supplement [...] - pt to see this Opthamologist in [place] - May 25. BRING IN THE GLUCOMETER [...] - recommended referral to Dr. Fine at [facility]. . Joint Injection - Pt was given [...] units subcutaneously once daily at night. . Sacroilitis-right hip pain-sciatica - back exercises discussed with the patient, pt to continue with antiinflammatories. Pt is to call if the symptoms do not improve or if they worsen. Kenalog injection today in the office for acute symtpoms. . Ears clear today-no need for further treatment or ear lavage today [facility] - Dr. Jhon Preciado [...] to assure normal liver response to medications. 5 units of insulin at Breakfast, 8 [...]
--- OUTSIDE RECORDS SUMMARY | 2019-01-23 15:52 | XMS REPORT | CCD ---
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 [employer] Name Role Phone PP Unavailable CCM Unavailable Summary Purpose Interface Exchange Insurance Providers Payer name Policy type / Coverage type Covered alliance party ID Effective Begin Date Effective End Date WPS Medicare Part B Medicare Part B [id number] Unknown Unknown [facility] Medicare Part B [id number] Unknown Unknown Family history Mother Diagnosis Age [...] Unknown Retired 07/18/[address]: 659737713 Never smoker 07/18/[address]: 115409351 Never drinks alcohol 07/18/2011 Has the patient [...] Start Date Stop Date Status Fill Instructions Protonix 40 mg tablet,delayed release RxNorm: 877573 1 Tablet(s) PO daily 09/27/2017 12/20/2018 Active Toujeo SoloStar 300 unit/mL (1.5 mL) subcutaneous insulin pen RxNorm: 1026709 45 Unit(s) SQ daily 09/27/2017 12/20/2018 Active 90 day supply lovastatin 20 mg tablet RxNorm: 791773 1 Tablet(s) PO QHS 09/27/2017 12/20/2018 Active Insulin Syringe 0.3 mL 29 X 5/16" RxNorm: 1 injection SQ BID 09/27/2017 12/20/2018 Active irbesartan 300 mg tablet RxNorm: 870819 1 Tablet(s) PO daily 09/27/2017 12/20/2018 Active Novolin R 100 unit/mL injection solution RxNorm: 252588 8 Unit(s) Inj QAM 10 units at lunch and 8 units at supper 09/27/2017 12/20/2018 Active dutasteride 0.5 mg capsule RxNorm: 657658 1 Capsule(s) PO daily 09/27/2017 12/20/2018 Active metformin 1,000 mg tablet RxNorm: 109921 1 Tablet(s) PO BID 09/27/2017 12/20/2018 Active Voltaren 1 % topical gel RxNorm: 831173 4 Gram(s) TOP QID 09/27/2017 12/20/2018 Active [SAVINGS FOR NON-COVERED DRUGS -- BIN:140050, PCN: ASPROD1, Group: XXXXX, ID# XXXXXXX, Questions: . THIS IS NOT INSURANCE.] magnesium oxide 400 mg tablet RxNorm: 138189 1 Tablet(s) PO daily 09/27/2017 12/20/2018 Active Trueresult Blood Glucose System RxNorm: 1 test Miscellaneous QID insulin dependent diabetes 09/27/2017 09/21/2018 Active Voltaren 1 % topical gel RxNorm: 210447 4 Gram(s) TOP QID 07/23/2017 09/26/2017 Inactive [SAVINGS FOR NON-COVERED DRUGS -- BIN:667234, PCN: ASPROD1, Group: XXXXX, ID# XXXXXXX, Questions: . THIS IS NOT INSURANCE.] Bactrim DS 800 mg-160 mg tablet RxNorm: 414263 1 Tablet(s) PO BID 07/02/2017 07/08/2017 Inactive Kenalog 40 mg/mL suspension for injection RxNorm: 4563567 1 Milliliter(s) Inj 06/04/2017 06/04/2017 Inactive Efudex 5 % topical cream RxNorm: 905182 1 TOP BID 12/05/2016 12/14/2016 Inactive Avapro 300 mg tablet RxNorm: 987592 Tablet(s) TAKE 1 TABLET BY MOUTH ONCE DAILY. 09/21/2016 09/15/2017 Inactive Toujeo SoloStar 300 unit/mL (1.5 mL) subcutaneous insulin pen RxNorm: 0821723 45 Unit(s) SQ daily 09/21/2016 09/15/2017 Inactive 90 day supply Novolin R 100 unit/mL injection solution RxNorm: 234533 8 Unit(s) Inj QAM 10 units at lunch and 8 units at supper 09/21/2016 09/15/2017 Inactive metformin 1,000 mg tablet RxNorm: 512176 Tablet(s) TAKE 1 TABLET BY MOUTH TWICE DAILY AFTER MEALS 09/21/2016 09/15/2017 Inactive lovastatin 20 mg tablet RxNorm: 887694 Tablet(s) TAKE ONE TABLET BY MOUTH ONCE DAILY. 09/21/2016 09/15/2017 Inactive dutasteride 0.5 mg capsule RxNorm: 765583 1 Capsule(s) PO daily 09/21/2016 09/15/2017 Inactive Toujeo SoloStar 300 unit/mL (1.5 mL) subcutaneous insulin pen RxNorm: 2388035 45 Unit(s) SQ daily 06/27/2016 09/20/2016 Inactive Kenalog 40 mg/mL suspension for injection RxNorm: 2979178 1 Milliliter(s) Inj 06/21/2016 06/21/2016 Inactive Toujeo SoloStar 300 unit/mL (1.5 mL) subcutaneous insulin pen RxNorm: 8640077 40 Unit(s) SQ daily 05/24/2016 06/26/2016 Inactive Novolin R 100 unit/mL injection solution RxNorm: 304966 8 Unit(s) Inj QAM 10 units at lunch and 8 units at supper 05/24/2016 09/20/2016 Inactive Bactrim DS 800 mg-160 mg tablet RxNorm: 817804 1 Tablet(s) PO BID 10/03/2015 01/31/2016 Inactive dutasteride 0.5 mg capsule RxNorm: 205519 1 Capsule(s) PO daily 09/26/2015 09/19/2016 Inactive dutasteride 0.5 mg capsule RxNorm: 678595 1 Capsule(s) PO daily 09/26/2015 09/25/2015 Inactive Avodart 0.5 mg capsule RxNorm: 438633 1 Capsule(s) PO QPM 09/21/2015 09/25/2015 Inactive Avapro 300 mg tablet RxNorm: 536204 Tablet(s) TAKE 1 TABLET BY MOUTH ONCE DAILY. 09/21/2015 09/14/2016 Inactive Generic For:AVAPRO 300MG 08/26/2015 9:53:42 AM lovastatin 20 mg tablet RxNorm: 264921 1 Tablet(s) TAKE ONE TABLET BY MOUTH ONCE DAILY. 09/21/2015 09/20/2016 Inactive Generic For:*MEVACOR 20MG 10/06/2014 12:16:37 PM Novolin R 100 unit/mL injection solution RxNorm: 911872 5 Unit(s) Inj QAM 8 units at lunch and 5 units at supper 09/21/2015 05/23/2016 Inactive metformin 1,000 mg tablet RxNorm: 997007 Tablet(s) TAKE 1 TABLET BY MOUTH TWICE DAILY AFTER MEALS 09/21/2015 09/20/2016 Inactive Generic For:*GLUCOPHAGE 1000MG 10/18/2014 5:26:11 PM Toujeo SoloStar 300 unit/mL (1.5 mL) subcutaneous insulin pen RxNorm: 7609907 60 Unit(s) SQ daily 09/21/2015 05/23/2016 Inactive 3 month supply DX 250.02 also needs pen needles to use daily dx 250.02 Novolin R 100 unit/mL injection solution RxNorm: 938866 5 Unit(s) Inj QAM 8 units at lunch and 5 units at supper 09/07/2015 09/20/2015 Inactive lovastatin 20 mg tablet RxNorm: 714397 Tablet(s) TAKE ONE TABLET BY MOUTH ONCE DAILY. 09/07/2015 09/20/2015 Inactive Generic For:*MEVACOR 20MG 10/06/2014 12:16:37 PM metformin 1,000 mg tablet RxNorm: 499023 Tablet(s) TAKE 1 TABLET BY MOUTH TWICE DAILY AFTER MEALS 09/07/2015 09/20/2015 Inactive Generic For:*GLUCOPHAGE 1000MG 10/18/2014 5:26:11 PM Toujeo SoloStar 300 unit/mL (1.5 mL) subcutaneous insulin pen RxNorm: 0845204 60 Unit(s) SQ daily 09/07/2015 09/20/2015 Inactive 3 month supply DX 250.02 also needs pen needles to use daily dx 250.02 Avapro 300 mg tablet RxNorm: 329800 TAKE 1 TABLET BY MOUTH ONCE DAILY. 08/26/2015 09/20/2015 Inactive Generic For:AVAPRO 300MG 08/26/2015 9:53:42 AM Avodart 0.5 mg capsule RxNorm: 753505 1 Capsule(s) PO QPM 08/17/2015 09/20/2015 Inactive Novolin R 100 unit/mL injection solution RxNorm: 310714 5 Unit(s) Inj QAM 8 units at lunch and 5 units at supper 08/17/2015 09/06/2015 Inactive Trueresult Blood Glucose System RxNorm: 1 test Miscellaneous QID insulin dependent diabetes 08/17/2015 08/10/2016 Inactive Avodart 0.5 mg capsule RxNorm: 472861 1 Capsule(s) PO QPM 08/14/2015 08/16/2015 Inactive Novolin R 100 unit/mL injection solution RxNorm: 083634 5 Unit(s) Inj TID with meals 07/20/2015 08/16/2015 Inactive Toujeo SoloStar 300 unit/mL (1.5 mL) subcutaneous insulin pen RxNorm: 2471810 60 Unit(s) SQ daily 07/20/2015 09/06/2015 Inactive one month supply DX 250.02 also needs pen needles to use daily dx 250.02 Bactrim DS 800 mg-160 mg tablet RxNorm: 773206 1 Tablet(s) PO BID 05/09/2015 05/15/2015 Inactive Bactrim DS 800 mg-160 mg tablet RxNorm: 587229 1 Tablet(s) PO BID 05/09/2015 05/08/2015 Inactive Bactrim DS 800 mg-160 mg tablet RxNorm: 458874 1 Tablet(s) PO BID 05/09/2015 05/08/2015 Inactive Toujeo SoloStar 300 unit/mL (1.5 mL) subcutaneous insulin pen RxNorm: 3724964 45u qdx3 days then 50u qdx 5 days then if fsbs >180 55u qd Unit(s) SQ daily 05/02/2015 07/19/2015 Inactive one month supply DX 250.02 also needs pen needles to use daily dx 250.02 Toujeo SoloStar 300 unit/mL (1.5 mL) subcutaneous insulin pen RxNorm: 9341768 45u qdx3 days then 50u qdx 5 days then if fsbs >180 55u qd Unit(s) SQ daily 05/02/2015 05/01/2015 Inactive one month supply DX 250.02 also needs pen needles to use daily dx 250.02 Belviq 10 mg tablet RxNorm: 8654439 1 Tablet(s) PO BID 04/20/2015 09/20/2015 Inactive Insulin Syringe 0.3 mL 29 X 5/16" RxNorm: 1 Miscellaneous BID 03/24/2015 04/16/2016 Inactive Lantus 100 unit/mL subcutaneous solution RxNorm: 992300 30 Unit(s) SQ BID 02/14/2015 05/01/2015 Inactive pt not ready for refill yet, when he is, please fill 25units bid Lantus 100 unit/mL subcutaneous solution RxNorm: 238721 28 Unit(s) SQ BID 11/11/2014 02/13/2015 Inactive pt not ready for refill yet, when he is, please fill 25units bid [SAVINGS FOR NON-COVERED DRUGS -- BIN:[id number], PCN: ASPROD1, Group: XXXXX, ID# [id number], Questions: . THIS IS NOT INSURANCE.] Voltaren 1 % topical gel RxNorm: 742356 4 Gram(s) TOP QID 11/11/2014 03/10/2015 Inactive [SAVINGS FOR NON-COVERED DRUGS -- BIN:642552, PCN: ASPROD1, Group: XXXXX, ID# [id number], Questions: . THIS IS NOT INSURANCE.] metformin 1,000 mg tablet RxNorm: 046746 TAKE 1 TABLET BY MOUTH TWICE DAILY AFTER MEALS 10/19/2014 09/06/2015 Inactive Generic For:*GLUCOPHAGE 1000MG 10/18/2014 5:26:11 PM metformin 1,000 mg tablet RxNorm: 679804 Tablet(s) TAKE 1 TABLET BY MOUTH TWICE DAILY AFTER MEALS 10/18/2014 10/18/2014 Inactive Generic For:*GLUCOPHAGE 1000MG 04/16/2014 9:02:30 AM lovastatin 20 mg tablet RxNorm: 929401 TAKE ONE TABLET BY MOUTH ONCE DAILY. 10/07/2014 09/06/2015 Inactive Generic For:*MEVACOR 20MG 10/06/2014 12:16:37 PM lovastatin 20 mg tablet RxNorm: 878376 1 Tablet(s) PO daily TAKE ONE (1) TABLET BY MOUTH DAILY 10/06/2014 10/06/2014 Inactive Generic For:MEVACOR 20 MG TABLET Generic For:MEVACOR 20 MG TABLET 08/14/2013 8:06:44 AM Carafate 1 gram tablet RxNorm: 972944 1 Tablet(s) PO QID dissolve in 10mL of fluid, drink liquid carafate four times daily before meals and before bed 10/04/2014 11/10/2014 Inactive may dispense generic Avapro 300 mg tablet RxNorm: 207870 TAKE 1 TABLET BY MOUTH ONCE DAILY. 08/26/2014 08/20/2015 Inactive Generic For:AVAPRO 300MG 08/26/2014 9:03:29 AM Avodart 0.5 mg capsule RxNorm: 531903 1 Capsule(s) PO QPM 08/02/2014 07/27/2015 Inactive meloxicam 15 mg tablet RxNorm: 615533 TAKE 1 TABLET BY MOUTH ONCE DAILY. 06/11/2014 11/10/2014 Inactive Generic For:MOBIC 15MG 06/11/2014 9:05:37 AM Kenalog 40 mg/mL suspension for injection RxNorm: 7247134 1 Milliliter(s) Inj 05/04/2014 05/04/2014 Inactive Lantus Solostar 100 unit/mL (3 mL) subcutaneous insulin pen RxNorm: 908924 25 Unit(s) SQ BID 04/19/2014 02/13/2015 Inactive Lantus 100 unit/mL subcutaneous solution RxNorm: 998685 25 Unit(s) SQ BID break up lantus to two shots daily of 22 units each shot 04/19/2014 11/10/2014 Inactive pt not ready for refill yet, when he is, please fill 25units bid metformin 1,000 mg tablet RxNorm: 399605 TAKE 1 TABLET BY MOUTH TWICE DAILY AFTER MEALS 04/16/2014 10/12/2014 Inactive Generic For:*GLUCOPHAGE 1000MG 04/16/2014 9:02:30 AM Insulin Syringe 0.3 mL 29 X 5/16" RxNorm: 1 Miscellaneous BID 03/15/2014 03/23/2015 Inactive Insulin Syringe 0.3 mL 29 X 5/16" RxNorm: 1 Miscellaneous BID 03/15/2014 03/14/2014 Inactive meloxicam 15 mg tablet RxNorm: 619910 TAKE 1 TABLET EVERY DAY 03/15/2014 06/10/2014 Inactive Generic For:MOBIC 15MG 03/15/2014 9:06:35 AM Lantus 100 unit/mL subcutaneous solution RxNorm: 948983 22 Unit(s) SQ BID break up lantus to two shots daily of 22 units each shot 01/14/2014 04/18/2014 Inactive metformin 1,000 mg tablet RxNorm: 196146 Tablet(s) PO TAKE 1 TABLET BY MOUTH TWICE DAILY AFTER MEALS 01/07/2014 04/15/2014 Inactive Generic For:*GLUCOPHAGE 1000MG Lantus 100 unit/mL subcutaneous solution RxNorm: 248995 25 Unit(s) SQ BID break up lantus to two shots daily of 25 units each shot 09/30/2013 09/29/2013 Inactive Lantus 100 unit/mL subcutaneous solution RxNorm: 365224 25 Unit(s) SQ BID break up lantus to two shots daily of 25 units each shot 09/30/2013 01/13/2014 Inactive metformin 1,000 mg tablet RxNorm: 655517 1 Tablet(s) PO BID TAKE 1 TABLET BY MOUTH TWICE DAILY AFTER MEALS 09/30/2013 12/28/2013 Inactive Generic For:GLUCOPHAGE 1000MG TAB Generic For:GLUCOPHAGE 1000MG TAB Avapro 300 mg tablet RxNorm: 042611 Tablet(s) PO TAKE ONE (1) TABLET BY MOUTH DAILY 08/28/2013 08/25/2014 Inactive Generic For:*AVAPRO 300MG TAB Generic For:*AVAPRO 300MG TAB 08/28/2013 8:53:42 AM lovastatin 20 mg tablet RxNorm: 001763 Tablet(s) PO TAKE ONE (1) TABLET BY MOUTH DAILY 08/14/2013 10/05/2014 Inactive Generic For:MEVACOR 20 MG TABLET Generic For:MEVACOR 20 MG TABLET 08/14/2013 8:06:44 AM metformin 1,000 mg tablet RxNorm: 179477 Tablet(s) PO TAKE 1 TABLET BY MOUTH TWICE DAILY AFTER MEALS 07/16/2013 09/29/2013 Inactive Generic For:GLUCOPHAGE 1000MG TAB Generic For:GLUCOPHAGE 1000MG TAB Influenza Virus Vaccine 0.5 mL RxNorm: IM 07/01/2013 07/01/2013 Inactive Contour Test Strips RxNorm: strip miscellaneous USE TO TEST BLOOD SUGAR THREE TIMES DAILY DIRECTED 06/29/2013 03/14/2014 Inactive metformin 1,000 mg tablet RxNorm: 984953 Tablet(s) PO TAKE 1 TABLET BY MOUTH TWICE DAILY AFTER MEALS 04/14/2013 07/15/2013 Inactive Generic For:GLUCOPHAGE 1000MG TAB meloxicam 15 mg tablet RxNorm: 366565 Tablet(s) PO TAKE ONE TABLET BY MOUTH EVERY DAY 03/21/2013 03/14/2014 Inactive Generic For:MOBIC 15MG TAB 03/19/2013 8:10:41 AM Lantus 100 unit/mL subcutaneous solution RxNorm: 042198 25 Unit(s) SQ BID break up lantus to two shots daily of 25 units each shot 03/04/2013 06/01/2013 Inactive Insulin Syringe 0.3 mL 29 X 5/16" RxNorm: 1 Unit Dose Miscellaneous BID 02/04/2013 09/01/2013 Inactive Lantus 100 unit/mL Sub-Q RxNorm: 896462 20 Unit(s) SQ BID break up lantus to two shots daily of 20units each shot 02/04/2013 03/03/2013 Inactive topiramate 25 mg tablet RxNorm: 543120 1 Tablet(s) PO daily 02/04/2013 04/08/2013 Inactive metformin 1,000 mg tablet RxNorm: 777957 Tablet(s) PO TAKE 1 TABLET BY MOUTH TWICE DAILY AFTER MEALS 01/15/2013 04/13/2013 Inactive Generic For:GLUCOPHAGE 1000MG TAB Lantus 100 unit/mL Sub-Q RxNorm: 965480 30 Unit(s) SQ QPM 12/03/2012 01/01/2013 Inactive Kenalog 40 mg/mL Susp for Injection RxNorm: 2708690 1 Milliliter(s) Inj 09/25/2012 09/25/2012 Inactive Lantus 100 unit/mL Sub-Q RxNorm: 287769 25 Unit(s) SQ QPM 09/12/2012 10/11/2012 Inactive Avapro 300 mg tablet RxNorm: 020797 Tablet(s) PO TAKE ONE (1) TABLET BY MOUTH DAILY 09/03/2012 09/02/2012 Inactive Generic For:AVAPRO 300MG TAB Avapro 300 mg tablet RxNorm: 039857 Tablet(s) PO TAKE ONE (1) TABLET BY MOUTH DAILY 09/03/2012 08/27/2013 Inactive Generic For:AVAPRO 300MG TAB Lantus 100 unit/mL Sub-Q RxNorm: 333179 20 Unit(s) SQ QPM 08/27/2012 09/11/2012 Inactive Avapro 300 mg tablet RxNorm: 980949 1 Tablet(s) PO daily 08/27/2012 09/02/2012 Inactive Lantus 100 unit/mL Sub-Q RxNorm: 986964 15 Unit(s) SQ QPM 08/07/2012 08/26/2012 Inactive metformin 1,000 mg tablet RxNorm: 480131 Tablet(s) PO 07/18/2012 01/14/2013 Inactive TAKE 1 TABLET BY MOUTH TWICE DAILY AFTER MEALS;Generic For:GLUCOPHAGE 1,000 MG TABLET Lantus 100 unit/mL Sub-Q RxNorm: 409641 13 Unit(s) SQ QPM 06/25/2012 07/24/2012 Inactive lovastatin 20 mg tablet RxNorm: 128791 Tablet(s) PO 06/20/2012 07/14/2013 Inactive TAKE 2 TABLETS BY MOUTH AT BEDTIME;Generic For:MEVACOR 20 MG TABLET Pneumovax 23 25 mcg/0.5 mL Injection RxNorm: 469909 Milliliter(s) Inj 06/04/2012 06/04/2012 Inactive Influenza Virus Vaccine 0.5 mL RxNorm: IM 06/04/2012 06/04/2012 Inactive Insulin Syringe 0.3 mL 29 X 5/16" RxNorm: 1 Unit Dose Miscellaneous daily 06/03/2012 12/29/2012 Inactive lovastatin 20 mg tablet RxNorm: 832390 Tablet(s) PO 05/14/2012 06/19/2012 Inactive TAKE 2 TABLETS BY MOUTH AT BEDTIME;Generic For:MEVACOR 20 MG TABLET Contour Test Strips RxNorm: Miscellaneous TID 04/25/2012 05/24/2012 Inactive lovastatin 20 mg tablet RxNorm: 086442 Tablet(s) PO 04/16/2012 05/13/2012 Inactive TAKE 2 TABLETS BY MOUTH AT BEDTIME;Generic For:MEVACOR 20 MG TABLET metformin 1,000 mg tablet RxNorm: 290524 Tablet(s) PO 04/16/2012 07/17/2012 Inactive TAKE 1 TABLET BY MOUTH TWICE DAILY AFTER MEALS;Generic For:GLUCOPHAGE 1,000 MG TABLET citalopram 20 mg tablet RxNorm: 678674 1 Tablet(s) PO daily 04/09/2012 09/23/2012 Inactive meloxicam 15 mg Tab RxNorm: 104593 1 Tablet(s) PO daily 2012 03/04/2012 Inactive meloxicam 15 mg Tab RxNorm: 041153 Tablet(s) PO 2012 07/19/2015 Inactive TAKE 1 TABLET BY MOUTH DAILY;Generic For:MOBIC 15MG TAB WC meloxicam 15 mg tablet RxNorm: 098616 1 Tablet(s) PO daily 2012 03/04/2012 Inactive Rocephin 500 mg Solution for Injection RxNorm: 734369 Inj 03/04/2012 03/04/2012 Inactive sulfamethoxazole 800 mg-trimethoprim 160 mg tablet RxNorm: 086655 1 Tablet(s) PO BID 03/04/2012 03/13/2012 Inactive metoprolol succinate ER 25 mg 24 hr Tab RxNorm: 914636 1 Tablet(s) PO daily 12/03/2011 11/16/2014 Inactive Byetta 10 mcg/0.04 mL per dose Sub-Q Pen Injector RxNorm: 867347 10 Microgram(s) SQ BID 10 meq twice daily before the two largest meals of the day. 12/03/2011 06/03/2012 Inactive Plavix 75 mg Tab RxNorm: 186971 1 Tablet(s) PO daily 12/03/2011 11/16/2014 Inactive lovastatin 20 mg tablet RxNorm: 587331 2 Tablet(s) PO daily 11/12/2011 04/15/2012 Inactive TAKE 2 TABLETS BY MOUTH DAILY AT BEDTIME;Generic For:MEVACOR 20 MG TABLET N O T I C E Last dispense quantity was less than original quantity written Avapro 300 mg tablet RxNorm: 031527 1 Tablet(s) PO daily 08/28/2011 08/21/2012 Inactive metformin 1,000 mg Tab RxNorm: 618541 1 Tablet(s) PO BID 07/09/2011 07/02/2012 Inactive Victoza 0.6 mg/0.1 mL (18 mg/3 mL) Sub-Q Pen Injector RxNorm: 671694 1.8 Milligram(s) SQ daily 06/20/2011 03/04/2012 Inactive Fish Oil 1,000 mg capsule RxNorm: 1 Capsule(s) PO BID No Start Date Active Ocuvite oral RxNorm: 783058 oral No Start Date Active potassium gluconate 595 mg (99 mg) tablet RxNorm: 671855 1 Tablet(s) PO daily No Start Date Active aspirin 81 mg Cap, Delayed Release RxNorm: 810107 1 Capsule(s) PO daily No Start Date Active multivitamin tablet RxNorm: oral No Start Date Active B Complex 1 oral RxNorm: 26031 oral No Start Date Active Protonix 40 mg tablet,delayed release RxNorm: 211513 1 Tablet(s) PO daily No Start Date 09/26/2017 Inactive Bydureon 2 mg SubQ Susp RxNorm: 5226603 1 SQ QW No Start Date 06/03/2012 Inactive Avapro 150 mg Tab RxNorm: 474675 1 Tablet(s) PO daily No Start Date 03/04/2012 Inactive Travatan Z 0.004 % Eye Drops RxNorm: 909620 1 Drop(s) OPH daily No Start Date 06/14/2014 Inactive metformin 1,000 mg tablet RxNorm: 956099 1 Tablet(s) PO BID No Start Date 03/04/2012 Inactive magnesium oxide 400 mg tablet RxNorm: 207838 Tablet(s) PO No Start Date 09/26/2017 Inactive Ativan 0.5 mg tablet RxNorm: 875756 1 Tablet(s) PO No Start Date 10/09/2013 Inactive 1 30 min prior to procedure meloxicam 15 mg Tab RxNorm: 564379 1 Tablet(s) PO daily No Start Date 03/04/2012 Inactive lovastatin 20 mg Tab RxNorm: 610242 2 Tablet(s) PO QHS No Start Date 11/12/2011 Inactive Pen Needle 31 x 3/16" RxNorm: Miscellaneous BID Pen [place] 31g/8mm BD to use for Byetta injection BID No Start Date 06/03/2012 Inactive Medication Administered Medication Codes Instructions Start Date Status Kenalog 40 mg/mL suspension for injection RxNorm: 9503205 1Milliliter 06/04/2017 No longer Active Kenalog 40 mg/mL suspension for injection RxNorm: 5683572 1Milliliter 06/21/2016 No longer Active Kenalog 40 mg/mL suspension for injection RxNorm: 9345964 1Milliliter 05/04/2014 No longer Active Influenza Virus Vaccine 0.5 mL RxNorm: 07/01/2013 No longer Active Kenalog 40 mg/mL Susp for Injection RxNorm: 1730636 1Milliliter 09/25/2012 No longer Active Influenza Virus Vaccine 0.5 mL RxNorm: 06/04/2012 No longer Active Pneumovax 23 25 mcg/0.5 mL Injection RxNorm: 863604 Milliliter 06/04/2012 No longer Active Rocephin 500 mg Solution for Injection RxNorm: 039181 03/04/2012 No longer Active Immunizations Vaccine Codes [...] 331.83 02/08/2014 Nightmares ICD-9: 307.47 02/08/2014 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 10/14/2013 Thumb pain ICD-9: 729.5 [...] 31.0 pg 07/25/2017 Cbc With Differential Ord2 [place]% 13.3 % 07/25/2017 Cbc With Differential Ord2 [...] 1.89 K/ul 07/25/2017 Cbc With Differential Ord2 [place] ABS# 0.9 K/ul 07/25/2017 Cbc With Differential Ord2 Eos ABS# 0.2 K/ul 07/25/2017 Cbc With Differential Ord2 Baso ABS# 0.1 K/ul 07/25/2017 Comp Metabolic Syy382 NA 140 mEq/L 07/25/2017 Comp Metabolic Jbu254 K 4.7 mEq/L 07/25/2017 Comp Metabolic Vft594 CL 102 mEq/L 07/25/2017 Comp Metabolic Gqh063 CO2 30.0 mEq/L 07/25/2017 Comp Metabolic Dph451 ANION GAP 13 07/25/2017 Comp Metabolic Noy228 GLUCOSE 178 mg/dL 07/25/2017 Comp Metabolic Dsv883 Creat 1.0 mg/dL 07/25/2017 Comp Metabolic Duu762 eGFR 75 ml/min/1.73m2 07/25/2017 Comp Metabolic Xqp472 BUN 23 mg/dL 07/25/2017 Comp Metabolic Wgg626 B/C Ratio 22.3 Ratio 07/25/2017 Comp Metabolic Ftb151 CALCIUM 9.7 mg/dL 07/25/2017 Comp Metabolic Sem247 ALK PHOS 40 U/L 07/25/2017 Comp Metabolic Cql361 AST(SGOT) 22 U/L 07/25/2017 Comp Metabolic Dcf992 ALT(SGPT) 25 U/L 07/25/2017 Comp Metabolic Kzo592 BILI T 0.7 mg/dL 07/25/2017 Comp Metabolic Ksx440 ALBUMIN 4.0 g/dL 07/25/2017 Comp Metabolic Hix790 TPRO 6.7 g/dL 07/25/2017 Comp Metabolic Ufr054 GLOB 2.7 g/dL 07/25/2017 Comp Metabolic Wsq184 A/G Ratio 1.5 Ratio 07/25/2017 Comp Metabolic Bid123 Osmo 288 mOsmo 07/25/2017 %Hba1C Mrb189 % HbA1c 05874- 6 7.1 % 07/25/2017 %Hba1C Fkr164 Gluc Ave 157 mg/dL 07/25/2017 Lipid Ord30 CHOL 164 mg/dL 07/25/2017 Lipid Ord30 HDL 49.0 mg/dl 07/25/2017 Lipid Ord30 TRIG 266 mg/dL 07/25/2017 Lipid Ord30 LDL 62 mg/dL 07/25/2017 Lipid Ord30 C/HDL 3.3 Ratio 07/25/2017 Comp Metabolic Nnb690 NA 140 mEq/L 04/02/2017 Comp Metabolic Gxt883 K 4.4 mEq/L 04/02/2017 Comp Metabolic Lpw318 CL 103 mEq/L 04/02/2017 Comp Metabolic Ewm590 CO2 27.0 mEq/L 04/02/2017 Comp Metabolic Axi827 ANION GAP 14 04/02/2017 Comp Metabolic Lkq298 GLUCOSE 182 mg/dL 04/02/2017 Comp Metabolic Zvs429 Creat 1.1 mg/dL 04/02/2017 Comp Metabolic Ova727 eGFR 73 ml/min/1.73m2 04/02/2017 Comp Metabolic Bxb221 BUN 26 mg/dL 04/02/2017 Comp Metabolic Pnd524 B/C Ratio 24.5 Ratio 04/02/2017 Comp Metabolic Sit998 CALCIUM 9.4 mg/dL 04/02/2017 Comp Metabolic Yay817 ALK PHOS 43 U/L 04/02/2017 Comp Metabolic Ftr326 AST(SGOT) 19 U/L 04/02/2017 Comp Metabolic Psp268 ALT(SGPT) 20 U/L 04/02/2017 Comp Metabolic Gte915 BILI T 0.7 mg/dL 04/02/2017 Comp Metabolic Ukj889 ALBUMIN 4.0 g/dL 04/02/2017 Comp Metabolic Eqc990 TPRO 6.6 g/dL 04/02/2017 Comp Metabolic Myz122 GLOB 2.6 g/dL 04/02/2017 Comp Metabolic Oiu395 A/G Ratio 1.6 Ratio 04/02/2017 Comp Metabolic Wcx518 Osmo 289 mOsmo 04/02/2017 %Hba1C Ckn756 % HbA1c 66773- 6 7.9 % 04/02/2017 %Hba1C Biu319 Gluc Ave 180 mg/dL 04/02/2017 Cbc With [...] 30.6 pg 04/02/2017 Cbc With Differential Ord2 [place]% 11.5 % 04/02/2017 Cbc With Differential Ord2 [...] 2.21 K/ul 04/02/2017 Cbc With Differential Ord2 [place] ABS# 0.9 K/ul 04/02/2017 Cbc With Differential [...] 30.6 pg 12/04/2016 Cbc With Differential Ord2 [place]% 10.7 % 12/04/2016 Cbc With Differential Ord2 [...] 1.76 K/ul 12/04/2016 Cbc With Differential Ord2 [place] ABS# 0.8 K/ul 12/04/2016 Cbc With Differential Ord2 Eos ABS# 0.2 K/ul 12/04/2016 Cbc With Differential Ord2 Baso ABS# 0.1 K/ul 12/04/2016 Lipid Ord30 CHOL 156 mg/dL 12/04/2016 Lipid Ord30 HDL 47.0 mg/dl 12/04/2016 Lipid Ord30 TRIG 219 mg/dL 12/04/2016 Lipid Ord30 LDL 65 mg/dL 12/04/2016 Lipid Ord30 C/HDL 3.3 Ratio 12/04/2016 Comp Metabolic Mmt061 NA 139 mEq/L 12/04/2016 Comp Metabolic Pox485 K 4.4 mEq/L 12/04/2016 Comp Metabolic Dfw713 CL 103 mEq/L 12/04/2016 Comp Metabolic Dmy408 CO2 27.0 mEq/L 12/04/2016 Comp Metabolic Aen130 ANION GAP 13 12/04/2016 Comp Metabolic Mkp658 GLUCOSE 147 mg/dL 12/04/2016 Comp Metabolic Pgz119 Creat 1.0 mg/dL 12/04/2016 Comp Metabolic Blg932 eGFR 83 ml/min/1.73m2 12/04/2016 Comp Metabolic Wix881 BUN 20 mg/dL 12/04/2016 Comp Metabolic Xnh786 B/C Ratio 21.1 Ratio 12/04/2016 Comp Metabolic Tkx227 CALCIUM 9.5 mg/dL 12/04/2016 Comp Metabolic Kvp409 ALK PHOS 44 U/L 12/04/2016 Comp Metabolic Olr911 AST(SGOT) 22 U/L 12/04/2016 Comp Metabolic Pzc661 ALT(SGPT) 23 U/L 12/04/2016 Comp Metabolic Jkx239 BILI T 0.8 mg/dL 12/04/2016 Comp Metabolic Ast943 ALBUMIN 3.9 g/dL 12/04/2016 Comp Metabolic Ntr964 TPRO 6.3 g/dL 12/04/2016 Comp Metabolic Eqk908 GLOB 2.4 g/dL 12/04/2016 Comp Metabolic Lua902 A/G Ratio 1.7 Ratio 12/04/2016 Comp Metabolic Iuk086 Osmo 283 mOsmo 12/04/2016 Tsh Ord6 hTSH II 3.35 uIU/mL 12/04/2016 %Hba1C Yjx693 % HbA1c 40387- 6 7.4 % 12/04/2016 %Hba1C Vyu325 Gluc Ave 166 mg/dL 12/04/2016 Comp Metabolic Brz204 NA 138 mEq/L 08/28/2016 Comp Metabolic Pvq042 K 4.7 mEq/L 08/28/2016 Comp Metabolic Xtd931 CL 101 mEq/L 08/28/2016 Comp Metabolic Wkq554 CO2 29.0 mEq/L 08/28/2016 Comp Metabolic Sji445 ANION GAP 13 08/28/2016 Comp Metabolic Evj148 GLUCOSE 188 mg/dL 08/28/2016 Comp Metabolic Pgz624 Creat 1.0 mg/dL 08/28/2016 Comp Metabolic Kbb932 eGFR 82 ml/min/1.73m2 08/28/2016 Comp Metabolic Qtv435 BUN 21 mg/dL 08/28/2016 Comp Metabolic Xak779 B/C Ratio 21.9 Ratio 08/28/2016 Comp Metabolic Qat784 CALCIUM 9.6 mg/dL 08/28/2016 Comp Metabolic Yxg232 ALK PHOS 52 U/L 08/28/2016 Comp Metabolic Rrz901 AST(SGOT) 27 U/L 08/28/2016 Comp Metabolic Cbp819 ALT(SGPT) 26 U/L 08/28/2016 Comp Metabolic Ytp518 BILI T 0.9 mg/dL 08/28/2016 Comp Metabolic Wzw773 ALBUMIN 4.2 g/dL 08/28/2016 Comp Metabolic Ngv422 TPRO 6.8 g/dL 08/28/2016 Comp Metabolic Ggv089 GLOB 2.6 g/dL 08/28/2016 Comp Metabolic Ylk597 A/G Ratio 1.6 Ratio 08/28/2016 Comp Metabolic Upf182 Osmo 284 mOsmo 08/28/2016 Cbc With Differential [...] 30.9 pg 08/28/2016 Cbc With Differential Ord2 Parmer% 14.3 % 08/28/2016 Cbc With Differential Ord2 [...] 1.68 K/ul 08/28/2016 Cbc With Differential Ord2 Parmer ABS# 1.1 K/ul 08/28/2016 Cbc With Differential Ord2 Eos ABS# 0.3 K/ul 08/28/2016 Cbc With Differential Ord2 Baso ABS# 0.1 K/ul 08/28/2016 %Hba1C Vgr365 % HbA1c 22993- 6 7.6 % 08/28/2016 %Hba1C Dhc841 Gluc Ave 171 mg/dL 08/28/2016 Cbc With [...] 91.4 fl 05/23/2016 Cbc With Differential Ord2 Parmer% 12.0 % 05/23/2016 Cbc With Differential Ord2 [...] 1.74 K/ul 05/23/2016 Cbc With Differential Ord2 Parmer ABS# 0.9 K/ul 05/23/2016 Cbc With Differential Ord2 Eos ABS# 0.2 K/ul 05/23/2016 Cbc With Differential Ord2 Baso ABS# 0.1 K/ul 05/23/2016 Tsh Ord6 hTSH II 3.24 uIU/mL 05/23/2016 %Hba1C Hhb806 % HbA1c 38805- 6 7.1 % 05/23/2016 %Hba1C Ziu905 Gluc Ave 157 mg/dL 05/23/2016 Lipid Ord30 CHOL 155 mg/dL 05/23/2016 Lipid Ord30 HDL 50.0 mg/dl 05/23/2016 Lipid Ord30 TRIG 159 mg/dL 05/23/2016 Lipid Ord30 LDL 73 mg/dL 05/23/2016 Lipid Ord30 C/HDL 3.1 Ratio 05/23/2016 Comp Metabolic Dem153 NA 137 mEq/L 05/23/2016 Comp Metabolic Bgz935 K 4.3 mEq/L 05/23/2016 Comp Metabolic Dvd289 CL 102 mEq/L 05/23/2016 Comp Metabolic Fut020 CO2 28.0 mEq/L 05/23/2016 Comp Metabolic Vsk485 ANION GAP 11 05/23/2016 Comp Metabolic Kmt932 GLUCOSE 140 mg/dL 05/23/2016 Comp Metabolic Bun478 Creat 0.9 mg/dL 05/23/2016 Comp Metabolic Xbq751 eGFR 93 ml/min/1.73m2 05/23/2016 Comp Metabolic Yml378 BUN 23 mg/dL 05/23/2016 Comp Metabolic Deo225 B/C Ratio 26.7 Ratio 05/23/2016 Comp Metabolic Bof338 CALCIUM 9.4 mg/dL 05/23/2016 Comp Metabolic Yap479 ALK PHOS 43 U/L 05/23/2016 Comp Metabolic Zoj199 AST(SGOT) 23 U/L 05/23/2016 Comp Metabolic Gst176 ALT(SGPT) 23 U/L 05/23/2016 Comp Metabolic Qgr226 BILI T 0.7 mg/dL 05/23/2016 Comp Metabolic Hrk120 ALBUMIN 4.2 g/dL 05/23/2016 Comp Metabolic Hqw975 TPRO 6.8 g/dL 05/23/2016 Comp Metabolic Xjt971 GLOB 2.6 g/dL 05/23/2016 Comp Metabolic Hda744 A/G Ratio 1.6 Ratio 05/23/2016 Comp Metabolic Duo629 Osmo 280 mOsmo 05/23/2016 Cbc With Differential [...] 29.9 pg 01/24/2016 Cbc With Differential Ord2 Parmer% 11.1 % 01/24/2016 Cbc With Differential Ord2 [...] 1.92 K/ul 01/24/2016 Cbc With Differential Ord2 Parmer ABS# 0.8 K/ul 01/24/2016 Cbc With Differential Ord2 Eos ABS# 0.3 K/ul 01/24/2016 Cbc With Differential Ord2 Baso ABS# 0.1 K/ul 01/24/2016 Cbc With Differential Ord2 New Analyzer Notice Please note new ref ranges starting 09-21-2015 due to implemntation of new five part differential hematolgy analyzer. 01/24/2016 Comp Metabolic Ohz127 NA 139 mEq/L 01/24/2016 Comp Metabolic Bah795 K 4.1 mEq/L 01/24/2016 Comp Metabolic Ffh275 CL 102 mEq/L 01/24/2016 Comp Metabolic Spm643 CO2 29.0 mEq/L 01/24/2016 Comp Metabolic Jqc368 ANION GAP 12 01/24/2016 Comp Metabolic Imx628 GLUCOSE 140 mg/dL 01/24/2016 Comp Metabolic Uuy098 Creat 0.9 mg/dL 01/24/2016 Comp Metabolic Gtz019 eGFR 87 ml/min/1.73m2 01/24/2016 Comp Metabolic Zhl922 BUN 20 mg/dL 01/24/2016 Comp Metabolic Xwt347 B/C Ratio 22.0 Ratio 01/24/2016 Comp Metabolic Aol193 CALCIUM 9.3 mg/dL 01/24/2016 Comp Metabolic Mfy370 ALK PHOS 46 U/L 01/24/2016 Comp Metabolic Pza402 AST(SGOT) 23 U/L 01/24/2016 Comp Metabolic Tyi074 ALT(SGPT) 22 U/L 01/24/2016 Comp Metabolic Vxz560 BILI T 0.7 mg/dL 01/24/2016 Comp Metabolic Sbt481 ALBUMIN 4.1 g/dL 01/24/2016 Comp Metabolic Gby476 TPRO 6.7 g/dL 01/24/2016 Comp Metabolic Hnx786 GLOB 2.6 g/dL 01/24/2016 Comp Metabolic Avn818 A/G Ratio 1.6 Ratio 01/24/2016 Comp Metabolic Cqx840 Osmo 282 mOsmo 01/24/2016 %Hba1C Xqm208 % HbA1c 07238- 6 6.8 % 01/24/2016 %Hba1C Zec773 Gluc Ave 148 mg/dL 01/24/2016 Tsh Ord6 hTSH II 3.45 uIU/mL 01/24/2016 Lipid Ord30 CHOL 137 mg/dL 01/24/2016 Lipid Ord30 HDL 47.0 mg/dl 01/24/2016 Lipid Ord30 TRIG 161 mg/dL 01/24/2016 Lipid Ord30 LDL 58 mg/dL 01/24/2016 Lipid Ord30 C/HDL 2.9 Ratio 01/24/2016 Tsh Ord6 hTSH II 3.71 uIU/mL 10/25/2015 %Hba1C Pus597 % HbA1c 93365- 6 7.1 % 10/25/2015 %Hba1C Ydu338 Gluc Ave 157 mg/dL 10/25/2015 Cbc With [...] 30.2 pg 10/25/2015 Cbc With Differential Ord2 Parmer% 12.4 % 10/25/2015 Cbc With Differential Ord2 [...] 1.69 K/ul 10/25/2015 Cbc With Differential Ord2 Parmer ABS# 0.8 K/ul 10/25/2015 Cbc With Differential [...] Ord30 C/HDL 3.2 Ratio 10/25/2015 Comp Metabolic Flw796 NA 136 mEq/L 10/25/2015 Comp Metabolic Cdj109 K 4.0 mEq/L 10/25/2015 Comp Metabolic Ohm265 CL 102 mEq/L 10/25/2015 Comp Metabolic Tyr390 CO2 26.0 mEq/L 10/25/2015 Comp Metabolic Neq733 ANION GAP 12 10/25/2015 Comp Metabolic Xym222 GLUCOSE 119 mg/dL 10/25/2015 Comp Metabolic Yra324 Creat 1.1 mg/dL 10/25/2015 Comp Metabolic Trz986 eGFR 69 ml/min/1.73m2 10/25/2015 Comp Metabolic Whe872 BUN 21 mg/dL 10/25/2015 Comp Metabolic Dbm629 B/C Ratio 18.8 Ratio 10/25/2015 Comp Metabolic Ifc329 CALCIUM 9.5 mg/dL 10/25/2015 Comp Metabolic Cbf374 ALK PHOS 49 U/L 10/25/2015 Comp Metabolic Mhg094 AST(SGOT) 29 U/L 10/25/2015 Comp Metabolic Gvq970 ALT(SGPT) 28 U/L 10/25/2015 Comp Metabolic Yxw854 BILI T 0.7 mg/dL 10/25/2015 Comp Metabolic Nwe920 ALBUMIN 4.2 g/dL 10/25/2015 Comp Metabolic Ihi447 TPRO 6.7 g/dL 10/25/2015 Comp Metabolic Myo630 GLOB 2.5 g/dL 10/25/2015 Comp Metabolic Nkg678 A/G Ratio 1.7 Ratio 10/25/2015 Comp Metabolic Zhu920 Osmo 276 mOsmo 10/25/2015 Sensitivity Report #1 [id number] ORGANISM ESCHERICHIA COLI 10/06/2015 Sensitivity Report #1 [id number] ORG NUMBER 1 10/06/2015 Sensitivity Report #1 [id number] AMIKACIN S 10/06/2015 Sensitivity Report #1 [id number] AMOXICILLIN/CLAV S 10/06/2015 Sensitivity Report #1 [id number] AMPICILLIN/SULBACTAM S 10/06/2015 Sensitivity Report #1 [id number] CEFEPIME S 10/06/2015 Sensitivity Report #1 [id number] CEFOTAXIME S 10/06/2015 Sensitivity Report #1 [id number] AMPICILLIN S 10/06/2015 Sensitivity Report #1 [id number] CEFTAZIDIME S 10/06/2015 Sensitivity Report #1 [id number] CEFAZOLIN S 10/06/2015 Sensitivity Report #1 [id number] CEFTRIAXONE S 10/06/2015 Sensitivity Report #1 [id number] CIPROFLOXACIN S 10/06/2015 Sensitivity Report #1 [id number] GENTAMICIN S 10/06/2015 Sensitivity Report #1 [id number] LEVOFLOXACIN S 10/06/2015 Sensitivity Report #1 [id number] CEFUROXIME S 10/06/2015 Sensitivity Report #1 [id number] MEROPENEM S 10/06/2015 Sensitivity Report #1 [id number] TETRACYCLINE S 10/06/2015 Sensitivity Report #1 [id number] ERTAPENEM S 10/06/2015 Sensitivity Report #1 [id number] TOBRAMYCIN S 10/06/2015 Sensitivity Report #1 [id number] TRIMETH/SULFA S 10/06/2015 Sensitivity Report #1 [id number] IMIPENEM S 10/06/2015 Sensitivity Report #1 [id number] NITROFURANTOIN S 10/06/2015 Sensitivity Report #1 [id number] PIPERACILLIN/TAZO S 10/06/2015 Culture Urine [id number] URINE CULTURE SEE NOTES 10/06/2015 Culture Urine [id number] SOURCE: URINE 10/06/2015 Culture Urine [id number] STATUS: FINAL 10/06/2015 Culture Urine [id number] DATE PLATED: 10/03/2015 10/06/2015 Culture Urine [id number] PRELIMINARY: 10/06/2015 Culture Urine [id number] CULTURE REPORT: 10/06/2015 Urine Culture Ucult Complete >100,000 col/ml aerobic growth sent to ref lab 10/04/2015 Comp Metabolic Ylz016 NA 133 mEq/L 07/19/2015 Comp Metabolic Iap886 K 4.2 mEq/L 07/19/2015 Comp Metabolic Xdv382 CL 101 mEq/L 07/19/2015 Comp Metabolic Wov925 CO2 25.0 mEq/L 07/19/2015 Comp Metabolic Nwq709 ANION GAP 11 07/19/2015 Comp Metabolic Uxr580 GLUCOSE 293 mg/dL 07/19/2015 Comp Metabolic Mmv381 Creat 1.0 mg/dL 07/19/2015 Comp Metabolic Pli332 eGFR 81 ml/min/1.73m2 07/19/2015 Comp Metabolic Beg803 BUN 19 mg/dL 07/19/2015 Comp Metabolic Vnk951 B/C Ratio 19.6 Ratio 07/19/2015 Comp Metabolic Xsf115 CALCIUM 9.4 mg/dL 07/19/2015 Comp Metabolic Hfs347 ALK PHOS 61 U/L 07/19/2015 Comp Metabolic Stv639 AST(SGOT) 32 U/L 07/19/2015 Comp Metabolic Pdw598 ALT(SGPT) 41 U/L 07/19/2015 Comp Metabolic Sop450 BILI T 0.7 mg/dL 07/19/2015 Comp Metabolic Xbf792 ALBUMIN 4.1 g/dL 07/19/2015 Comp Metabolic Nsm831 TPRO 6.7 g/dL 07/19/2015 Comp Metabolic Lyk367 GLOB 2.6 g/dL 07/19/2015 Comp Metabolic Xjv937 A/G Ratio 1.6 Ratio 07/19/2015 Comp Metabolic Gnd327 Osmo 279 mOsmo 07/19/2015 %Hba1C Oac521 % HbA1c 81826- 6 9.2 % 07/19/2015 %Hba1C Fly032 Gluc Ave 217 mg/dL 07/19/2015 Cbc With [...] Ord6 hTSH II 2.72 uIU/mL 04/19/2015 %Hba1C Xwk609 % HbA1c 88553- 6 8.6 % 04/19/2015 %Hba1C Jvt346 Gluc Ave 200 mg/dL 04/19/2015 Comp Metabolic Bes907 NA 139 mEq/L 04/19/2015 Comp Metabolic Zpm547 K 4.2 mEq/L 04/19/2015 Comp Metabolic Haw326 CL 106 mEq/L 04/19/2015 Comp Metabolic Ykb248 CO2 27.0 mEq/L 04/19/2015 Comp Metabolic Lxx798 ANION GAP 10 04/19/2015 Comp Metabolic Rwg941 GLUCOSE 157 mg/dL 04/19/2015 Comp Metabolic Rmx020 Creat 0.9 mg/dL 04/19/2015 Comp Metabolic Fiz743 eGFR 84 ml/min/1.73m2 04/19/2015 Comp Metabolic Xcc646 BUN 14 mg/dL 04/19/2015 Comp Metabolic Vwg295 B/C Ratio 14.9 Ratio 04/19/2015 Comp Metabolic Agx176 CALCIUM 9.5 mg/dL 04/19/2015 Comp Metabolic Wwv695 ALK PHOS 51 U/L 04/19/2015 Comp Metabolic Hcq497 AST(SGOT) 28 U/L 04/19/2015 Comp Metabolic Elt740 ALT(SGPT) 29 U/L 04/19/2015 Comp Metabolic Nbg771 BILI T 0.6 mg/dL 04/19/2015 Comp Metabolic Mtf984 ALBUMIN 4.1 g/dL 04/19/2015 Comp Metabolic Vql937 TPRO 6.4 g/dL 04/19/2015 Comp Metabolic Nxy698 GLOB 2.3 g/dL 04/19/2015 Comp Metabolic Osi852 A/G Ratio 1.8 Ratio 04/19/2015 Comp Metabolic Syr349 Osmo 281 mOsmo 04/19/2015 Lipid Ord30 CHOL [...] Date REMOVAL OF SKIN TAGS <W/15 CPT-4: 58958 07/02/2017 ADMIN INFLUENZA VIRUS VAC CPT-4: G0008 06/28/2017 FLU VAC NO PRSV 4 DONNA 3 YRS+ CPT-4: 84587 06/28/2017 TRIAMCINOLONE ACET INJ NOS CPT-4: J3301 06/04/2017 PPPS, SUBSEQ VISIT CPT- 4: G0439 12/13/2016 PNEUMOCOCCAL VACC [address]: [id number] CPT-4: 31154 12/13/2016 ADMIN PNEUMOCOCCAL VACCINE SNOMED CT: 14875910 CPT-4: G0009 12/13/2016 DRAIN/INJECT JOINT/BURSA CPT-4: 71708 08/30/2016 TRIAMCINOLONE ACET INJ NOS CPT-4: J3301 08/30/2016 URINALYSIS NONAUTO W/O SCOPE CPT-4: 27648 07/13/2016 INJ TRIGGER POINT 1/2 MUSCL CPT-4: 67190 06/21/2016 ADMIN INFLUENZA VIRUS VAC CPT-4: G0008 05/24/2016 FLU VACC PRSV FREE INC ANTIG Formatting Model/CDA Sections, Assigned to/Judy Pierre CPT-4: 57653Fwsacqu 05/24/2016 URINALYSIS NONAUTO W/O SCOPE CPT-4: 69234 10/03/2015 ADMIN INFLUENZA VIRUS VAC CPT-4: G0008 07/20/2015 IMMUNIZATION ADMIN CPT- 4: 04562 07/20/2015 FLU VACC PRSV FREE INC ANTIG Formatting Model/CDA Sections, Assigned to/Judy Pierre CPT-4: 07243Dqvnsbj 07/20/2015 URINALYSIS NONAUTO W/O SCOPE CPT-4: 14457 05/18/2015 URINALYSIS NONAUTO W/O SCOPE CPT-4: 41189 05/09/2015 ADMIN INFLUENZA VIRUS VAC CPT-4: G0008 06/03/2014 FLU VAC NO PRSV 4 DONNA 3 YRS+ Assigned to/Judy Pierre CPT-4: 16499Bjsxktm 06/03/2014 TRIAMCINOLONE ACET INJ NOS CPT-4: J3301 05/04/2014 ADMIN INFLUENZA VIRUS VAC CPT-4: G0008 07/01/2013 FLULAVAL VACC, 3 YRS & >, IM CPT-4: Q2036 07/01/2013 PRESCRIP TRANSMIT VIA ERX SY CPT-4: G8553 03/04/2013 PRESCRIP TRANSMIT VIA ERX SY CPT-4: G8553 02/04/2013 DRAIN/INJECT JOINT/BURSA CPT-4: 12571 09/25/2012 ADMIN INFLUENZA VIRUS VAC CPT-4: G0008 06/04/2012 FLULAVAL VACC, 3 YRS & >, IM CPT-4: Q2036 06/04/2012 ADMIN PNEUMOCOCCAL VACCINE SNOMED CT: 68587089 CPT-4: G0009 06/04/2012 PRESCRIP TRANSMIT VIA ERX SY CPT-4: G8553 04/09/2012 ROCEPHIN, PER 250 MG CPT- 4: J0696 03/04/2012 PRESCRIP TRANSMIT VIA ERX SY CPT-4: G8553 03/04/2012 DESTRUCT PREMALG LESION CPT-4: 03834 07/24/2011 DESTRUCT PREMALG LES 2-14 CPT-4: 54529 07/24/2011 DESTRUCT PREMALG LES 2-14 CPT-4: 57838 07/18/2011 DESTRUCT PREMALG LESION CPT-4: 69422 07/18/2011 Vital Signs Date Vital 07/29/2017 Blood Pressure 1: 148/76 Code: 8480-6 BMI: 43.7 Code: 59904-1 Heart Rate 1: 75 bpm Height: 5'6" SpO2: 97% Weight: 275 lbs 07/02/2017 Blood Pressure 1: 148/78 Code: 8480-6 BMI: 43.4 Code: 40197-3 Heart Rate 1: 55 bpm Height: 5'6" SpO2: 97% Weight: 273 lbs 06/04/2017 Blood Pressure 1: 132/58 Code: 8480-6 BMI: 43.1 Code: 05059-4 Heart Rate 1: 64 bpm Height: 5'6" SpO2: 96% Weight: 271 lbs 04/03/2017 Blood Pressure 1: 124/70 Code: 8480-6 BMI: 44.2 Code: 92135-5 Heart Rate 1: 70 bpm Height: 5'6" Height: 5'6" SpO2: 95% Weight: 278 lbs 12/13/2016 Blood Pressure 1: 150/78 Code: 8480-6 BMI: 44.2 Code: 18454-5 Heart Rate 1: 67 bpm Height: 5'6" SpO2: 97% Weight: 278 lbs 12/05/2016 Blood Pressure 1: 122/80 Code: 8480-6 Blood Pressure 1: 126/90 Code: 8480-6 BMI: 44.2 Code: 94331-3 Heart Rate 1: 70 bpm Height: 5'6" SpO2: 97% Weight: 278 lbs 08/30/2016 Blood Pressure 1: 134/78 Code: 8480-6 Blood Pressure 1: 134/70 Code: 8480-6 BMI: 43.9 Code: 18571-4 Heart Rate 1: 62 bpm Height: 5'6" SpO2: 98% Weight: 276 lbs 07/13/2016 Blood Pressure 1: 140/68 Code: 8480-6 BMI: 43.2 Code: 62686-8 Heart Rate 1: 59 bpm Height: 5'6" SpO2: 96% Weight: 272 lbs 06/21/2016 Blood Pressure 1: 140/70 Code: 8480-6 BMI: 43.2 Code: 93234-6 Heart Rate 1: 70 bpm Height: 5'6" SpO2: 94% Weight: 272 lbs 05/24/2016 Blood Pressure 1: 138/72 Code: 8480-6 Blood Pressure 1: 138/70 Code: 8480-6 BMI: 43.2 Code: 72137-0 Heart Rate 1: 65 bpm Height: 5'6" SpO2: 97% Weight: 272 lbs 01/24/2016 Blood Pressure 1: 122/62 Code: 8480-6 BMI: 43.1 Code: 92253-8 Heart Rate 1: 61 bpm Height: 5'6" SpO2: 97% Weight: 271 lbs 10/27/2015 Blood Pressure 1: 122/64 Code: 8480-6 BMI: 42.4 Code: 36616-2 Heart Rate 1: 58 bpm Height: 5'6" SpO2: 97% Weight: 267 lbs 09/21/2015 Blood Pressure 1: 128/70 Code: 8480-6 BMI: 43.2 Code: 09074-2 Heart Rate 1: 65 bpm Height: 5'6" SpO2: 98% Weight: 272 lbs 08/17/2015 Blood Pressure 1: 120/64 Code: 8480-6 BMI: 44.8 Code: 82702-2 Heart Rate 1: 57 bpm Height: 5'6" SpO2: 97% Weight: 282 lbs 07/20/2015 Blood Pressure 1: 144/70 Code: 8480-6 BMI: 45.3 Code: 01242-0 Heart Rate 1: 67 bpm Height: 5'6" SpO2: 95% Weight: 285 lbs 05/09/2015 Blood Pressure 1: 180/60 Code: 8480-6 Blood Pressure 2: 140/80 Code: 8480-6 04/20/2015 Blood Pressure 1: 138/64 Code: 8480-6 BMI: 45.6 Code: 32600-9 Heart Rate 1: 60 bpm Height: 5'6" SpO2: 98% Weight: 287 lbs 02/28/2015 Blood Pressure 1: 142/78 Code: 8480-6 BMI: 45.8 Code: 60818-7 Heart Rate 1: 68 bpm Height: 5'6" Weight: 288 lbs 02/14/2015 Blood Pressure 1: 142/78 Code: 8480-6 BMI: 45.3 Code: 95617-6 Heart Rate 1: 88 bpm Height: 5'6" Weight: 285 lbs 11/11/2014 Blood Pressure 1: 152/72 Code: 8480-6 Heart Rate 1: 64 bpm Weight: 282 lbs 10/04/2014 Blood Pressure 1: 140/72 Code: 8480-6 BMI: 45.6 Code: 51867-5 Heart Rate 1: 76 bpm Height: 5'6" Weight: 287 lbs 08/02/2014 Blood Pressure 1: 132/62 Code: 8480-6 BMI: 45.6 Code: 95853-4 Heart Rate 1: 64 bpm Height: 5'6" Weight: 287 lbs 06/15/2014 Blood Pressure 1: 142/62 Code: 8480-6 BMI: 44.7 Code: 32898-3 Heart Rate 1: 68 bpm Height: 5'6" SpO2: 97% Weight: 281 lbs 05/04/2014 Blood Pressure 1: 140/78 Code: 8480-6 BMI: 45.0 Code: 07336-9 Heart Rate 1: 60 bpm Height: 5'6" SpO2: 98% Weight: 283 lbs 04/19/2014 Blood Pressure 1: 130/62 Code: 8480-6 BMI: 44.7 Code: 19326-7 Heart Rate 1: 56 bpm Height: 5'6" Weight: 281 lbs 02/08/2014 Blood Pressure 1: 118/58 Code: 8480-6 BMI: 45.3 Code: 26946-2 Heart Rate 1: 60 bpm Height: 5'6" Weight: 285 lbs 01/13/2014 Blood Pressure 1: 112/52 Code: 8480-6 BMI: 44.2 Code: 40225-7 Heart Rate 1: 60 bpm Height: 5'6" Weight: 278 lbs 10/14/2013 Blood Pressure 1: 132/70 Code: 8480-6 BMI: 43.1 Code: 12763-0 Heart Rate 1: 60 bpm Height: 5'6" Weight: 271 lbs 07/01/2013 Blood Pressure 1: 158/76 Code: 8480-6 Heart Rate 1: 52 bpm Weight: 263 lbs 05/13/2013 Weight: 268 lbs 04/15/2013 Weight: 272 lbs 03/04/2013 Blood Pressure 1: 146/68 Code: 8480-6 BMI: 45.6 Code: 68217-2 Heart Rate 1: 68 bpm Height: 5'6" Weight: 287 lbs 02/04/2013 Blood Pressure 1: 140/68 Code: 8480-6 BMI: 46.1 Code: 65864-6 Heart Rate 1: 64 bpm Height: 5'6" Weight: 290 lbs 12/03/2012 Blood Pressure 1: 124/62 Code: 8480-6 BMI: 44.8 Code: 74522-6 Heart Rate 1: 64 bpm Height: 5'6" [...] 1: 146/76 Code: 8480-6 BMI: 44.7 Code: 99449-1 Heart Rate 1: 60 bpm Height: 5'6" Weight: 281 lbs 06/25/2012 Blood Pressure 1: 128/76 Code: 8480-6 BMI: 43.7 Code: 59854-1 Heart Rate 1: 72 bpm Height: 5'6" Weight: 275 lbs 06/03/2012 Blood Pressure 1: 136/62 Code: 8480-6 BMI: 43.2 Code: 55077-7 Heart Rate 1: 72 bpm Height: 5'6" Respiratory Rate: 20 bpm Weight: 272 lbs 04/24/2012 Blood Pressure 1: 116/60 Code: 8480-6 BMI: 42.3 Code: 46373-7 Heart Rate 1: 68 bpm Height: 5'6" Respiratory Rate: 16 bpm Weight: 266 lbs 04/09/2012 Blood Pressure 1: 150/82 Code: 8480-6 Heart Rate 1: 72 bpm Weight: 03/04/2012 Blood Pressure 1: 124/70 Code: 8480-6 Heart Rate 1: 72 bpm Respiratory Rate: 16 bpm Weight: 277 lbs 12/03/2011 Blood Pressure 1: 120/60 Code: 8480-6 BMI: 44.8 Code: 39718-8 Heart Rate 1: 68 bpm Height: 5'6" Respiratory Rate: 16 bpm Weight: 282 lbs 10/31/2011 Blood Pressure 1: 120/60 Code: 8480-6 BMI: 44.8 Code: 79487-5 Heart Rate 1: 74 bpm Height: 5'6" Respiratory Rate: 16 bpm Weight: 282 lbs 08/29/2011 Blood Pressure 1: 152/76 Code: 8480-6 BMI: 44.5 Code: 71773-2 Heart Rate 1: 66 bpm Height: 5'6" Respiratory Rate: 16 bpm Weight: 280 lbs 07/24/2011 Blood Pressure 1: 142/80 Code: 8480-6 BMI: 44.8 Code: 44467-0 Heart Rate 1: 66 bpm Height: 5'6" Respiratory Rate: 16 bpm Weight: 282 lbs 07/18/2011 Blood Pressure 1: 136/60 Code: 8480-6 BMI: 44.5 Code: 16514-7 Heart Rate 1: 72 bpm Height: 5'6" [...] when he could not remember what the shelf filler was talking about at [facility] - pt states that he has [...] Present Encounters Encounter Performer Location Codes Date ([id number]) [id number] EST. PATIENT, LEVEL IV Diagnosis: Type 2 diabetes mellitus without complications[ICD10: E11.9] Diagnosis: Essential (primary) hypertension[ICD10: I10] Diagnosis: Mixed hyperlipidemia[ICD10: E78.2] [facility] CPT- 4: 94870 07/29/2017 ([id number]) 80444 EST. PATIENT, LEVEL III Diagnosis: Lumbago with sciatica, right side[ICD10: M54.41] [facility] CPT-4: 93622 06/04/2017 ([id number]) 46487 EST. PATIENT, LEVEL IV Diagnosis: Essential (primary) hypertension[ICD10: I10] Diagnosis: Type 2 diabetes mellitus with diabetic polyneuropathy[ICD10: E11.42] Diagnosis: Cough[ICD10: R05] Diagnosis: Palpitations[ICD10: R00.2] [facility] CPT-4: 25847 04/03/2017 ([id number] 80320 EST. PATIENT, LEVEL IV Diagnosis: Essential (primary) hypertension[ICD10: I10] Diagnosis: Type 2 diabetes mellitus without complications[ICD10: E11.9] Maria Victoria Harrell MD, [facility] CPT-4: 29917 12/05/2016 ([id number]) 98904 EST. PATIENT, LEVEL IV Diagnosis: Essential (primary) hypertension[ICD10: I10] Diagnosis: Type 2 diabetes mellitus with hyperglycemia[ICD10: E11.65] Diagnosis: Morbid (severe) obesity due to excess calories[ICD10: E66.01] Diagnosis: Essential tremor[ICD10: G25.0] Diagnosis: Pain in right hip[ICD10: M25.551] Maria Victoria Harrell MD, [facility] CPT- 4: 71790 08/30/2016 ([id number]) 21569 EST. PATIENT, LEVEL III Diagnosis: Pain in left forearm[ICD10: M79.632] Diagnosis: Dysuria[ICD10: R30.0] Sunitha Harrell MD, [facility] CPT-4: 46265 07/13/2016 ([id number]) 62483 EST. PATIENT, LEVEL III Diagnosis: Type 2 diabetes mellitus with hyperglycemia[ICD10: E11.65] Diagnosis: Essential tremor[ICD10: G25.0] Diagnosis: Encounter for immunization[ICD10: Z23] Diagnosis: Essential (primary) hypertension[ICD10: I10] Maria Victoria Harrell MD, [facility] CPT-4: 81325 05/24/2016 ([id number]) 15726 EST. PATIENT, LEVEL IV Diagnosis: Type 2 diabetes mellitus with hyperglycemia[ICD10: E11.65] Diagnosis: Essential (primary) hypertension[ICD10: I10] Diagnosis: Dorsalgia, unspecified[ICD10: M54.9] Maria Victoria Harrell MD, [facility] CPT- 4: 33065 01/24/2016 ([id number]) 55726 EST. PATIENT, LEVEL IV Diagnosis: Type 2 diabetes mellitus with hyperglycemia[ICD10: E11.65] Diagnosis: Essential (primary) hypertension[ICD10: I10] Diagnosis: Dorsalgia, unspecified[ICD10: M54.9] Maria Victoria Harrell MD, [facility] CPT- 4: 63116 10/27/2015 ([id number]) 42172 EST. PATIENT, LEVEL III Diagnosis: Type 2 diabetes mellitus with hyperglycemia[ICD10: E11.65] Maria Victoria Harrell MD [facility] CPT-4: 68045 09/21/2015 ([id number]) 55574 EST. PATIENT, LEVEL IV Diagnosis: Type 2 diabetes mellitus with hyperglycemia[ICD10: E11.65] Diagnosis: Essential (primary) hypertension[ICD10: I10] Maria Victoria Harrell MD [facility] CPT-4: 47437 08/17/2015 ([id number]) 39963 EST. PATIENT, LEVEL IV Diagnosis: VACCIN FOR INFLUENZA[ICD10: Z23] Diagnosis: Type 2 diabetes mellitus with hyperglycemia[ICD10: E11.65] Diagnosis: Morbid (severe) obesity due to excess calories[ICD10: E66.01] Diagnosis: Dorsalgia, unspecified[ICD10: M54.9] Maria Victoria Harrell MD [facility] CPT- 4: 94717 07/20/2015 ([id number]) 64388 EST. PATIENT, LEVEL IV Diagnosis: Diabetes mellitus type 2, uncontrolled[ICD9: 250.02] Diagnosis: ESSENTIAL HYPERTENSION[ICD9: 401.9] Diagnosis: MORBID OBESITY[ICD9: 278.01] Diagnosis: Peripheral neuropathic pain[ICD9: 356.9] Diagnosis: Diabetic neuropathy[ICD9: 250.60] Maria Victoria Harrell MD [facility] CPT- 4: 43808 04/20/2015 ([id number]) Miscellaneous no charge Diagnosis: Cerumen impaction[ICD9: 380.4] Maria Victoria Harrell MD [facility] CPT-4: 00636 02/28/2015 ([id number]) 81249 EST. PATIENT, LEVEL IV Diagnosis: Diabetes mellitus type 2, uncontrolled[ICD9: 250.02] Diagnosis: ESSENTIAL HYPERTENSION[ICD9: 401.9] Maria Victoria Harrell MD [facility] CPT- 4: 75499 02/14/2015 ([id number]) 64662 EST. PATIENT, LEVEL III Diagnosis: Diabetes mellitus type 2, uncontrolled[ICD9: 250.02] Maria Victoria Harrell MD [facility] CPT-4: 87018 11/11/2014 ([id number]) 28549 EST. PATIENT, LEVEL IV Diagnosis: ESSENTIAL HYPERTENSION[ICD9: 401.9] Diagnosis: DIABETES TYPE II[ICD9: 250.00] Diagnosis: Esophageal reflux[ICD9: 530.81] Diagnosis: DYSPHAGIA NEC[ICD9: 787.29] Maria Victoria Harrell MD [facility] CPT-4: 94582 10/04/2014 ([id number]) 14089 EST. PATIENT, LEVEL IV Diagnosis: DIABETES TYPE II[ICD9: 250.00] Diagnosis: ESSENTIAL HYPERTENSION[ICD9: 401.9] Diagnosis: BPH (benign prostatic hyperplasia)[ICD9: 600.00] Maria Victoria Harrell MD [facility] CPT-4: 20566 08/02/2014 ([id number]) 57711 EST. PATIENT, LEVEL III Diagnosis: Enlarged prostate[ICD9: 600.00] Maria Victoria Harrell MD [facility] CPT-4: 22047 06/15/2014 ([id number]) 06704 EST. PATIENT, LEVEL III Diagnosis: Right hip pain[ICD9: 719.45] Diagnosis: BACKACHE[ICD9: 724.5] Diagnosis: Sacroiliitis[ICD9: 720.2] Sunitha Harrell MD, [facility] CPT-4: 33607 05/04/2014 ([id number]) 64627 EST. PATIENT, LEVEL IV Diagnosis: DM W/O COMPLICATION TYPE II, UNCONTROLLED[ICD9: 250.02] Diagnosis: ESSENTIAL HYPERTENSION[ICD9: 401.9] Maria Victoria Harrell MD [facility] CPT- 4: 44661 04/19/2014 ([id number]) 11883 EST. PATIENT, LEVEL IV Diagnosis: Mild cognitive impairment[ICD9: 331.83] Diagnosis: Nightmares[ICD9: 307.47] Diagnosis: Sleep apnea[ICD9: 780.57] Maria Victoria Harrell MD, [facility] CPT-4: 62016 02/08/2014 ([id number]) 08085 EST. PATIENT, LEVEL III Diagnosis: DM W/O COMPLICATION TYPE II, UNCONTROLLED[ICD9: 250.02] Maria Victoria Harrell MD [facility] CPT-4: 13601 01/13/2014 ([id number]) 31175 EST. 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 PATIENT, LEVEL IV Diagnosis: DIABETES TYPE II[SNOMED: 693594513] Diagnosis: ESSENTIAL HYPERTENSION[SNOMED: 38482295] Diagnosis: Flat feet[ICD9: 734] Maria Victoria Harrell MD [facility] CPT-4: 11699 07/01/2013 ([id number]) Miscellaneous no charge Diagnosis: DM W/O COMPLICATION TYPE II, UNCONTROLLED[SNOMED: 42013191] Diagnosis: MORBID OBESITY[ICD9: 278.01] Maria Victoria Harrell MD [facility] CPT-4: 10611 05/13/2013 ([id number]) Miscellaneous no charge Diagnosis: MORBID OBESITY[ICD9: 278.01] Maria Victoria Harrell MD, [facility] CPT-4: 10060 04/15/2013 ([id number]) 06015 EST. PATIENT, LEVEL III Diagnosis: DM W/O COMPLICATION TYPE II, UNCONTROLLED[SNOMED: 45773254] Diagnosis: Dietary restriction[ICD9: V65.3] Diagnosis: Morbid obesity with BMI of 40.0-44.9, adult[ICD9: 278.01] Maria Victoria Harrell MD [facility] CPT-4: 28853 03/04/2013 ([id number]) 56290 EST. PATIENT, LEVEL IV Diagnosis: DM W/O COMPLICATION TYPE II, UNCONTROLLED[SNOMED: 43819846] Diagnosis: ENTHESOPATHY OF HIP[ICD9: 726.5] Diagnosis: BACKACHE[ICD9: 724.5] Maria Victoria Harrell MD, [facility] CPT-4: 23615 02/04/2013 ([id number]) 38852 EST. PATIENT, LEVEL III Diagnosis: DM W/O COMPLICATION TYPE II, UNCONTROLLED[SNOMED: 64426061] Maria Victoria Harrell MD [facility] CPT-4: 80314 12/03/2012 [id number]) 51986 EST. PATIENT, LEVEL III Diagnosis: Tinnitus[ICD9: 388.30] Diagnosis: Cerumen impaction[ICD9: 380.4] Sunitha Harrell MD, [facility] CPT-4: 32337 10/14/2012 ([id number]) 20228 EST. PATIENT, LEVEL III Diagnosis: ENTHESOPATHY OF HIP[ICD9: 726.5] Diagnosis: JOINT PAIN-PELVIS[ICD9: 719.45] Maria Victoria Harrell MD, [facility] CPT-4: 28676 09/29/2012 04753 EST. PATIENT, LEVEL II Diagnosis: Right hip pain[ICD9: 719.45] Diagnosis: Bursitis of hip, right[ICD9: 726.5] Diagnosis: DM W/O COMPLICATION TYPE II, UNCONTROLLED[SNOMED: 57812833] Sunitha Harrell MD, [facility] CPT-4: 19784 09/25/2012 ([id number]) 76640 EST. PATIENT, LEVEL III Diagnosis: DM W/O COMPLICATION TYPE II, UNCONTROLLED[SNOMED: 49382097] Maria Victoria Harrell MD, [facility] CPT-4: 62833 08/27/2012 ([id number]) 37317 EST. PATIENT, LEVEL III Diagnosis: Diabetes mellitus out of control[SNOMED: 28520813] Maria Victoria Harrell MD, [facility] CPT-4: 18803 06/25/2012 ([id number]) 29565 EST. PATIENT, LEVEL III Diagnosis: DM W/O COMPLICATION TYPE II, UNCONTROLLED[SNOMED: 47396073] Diagnosis: ESSENTIAL HYPERTENSION[SNOMED: 76707419] Maria Victoria Harrell MD, [facility] CPT-4: 56957 06/03/2012 [id number]) 52101 EST. PATIENT, LEVEL III Diagnosis: DM W/O COMPLICATION TYPE II, UNCONTROLLED[SNOMED: 44887255] Diagnosis: Back pain[ICD9: 724.5] Maria Victoria Harrell MD, [facility] CPT-4: 96270 04/24/2012 [id number]) 61590 EST. PATIENT, LEVEL IV Diagnosis: BACKACHE[ICD9: 724.5] Diagnosis: MORBID OBESITY[ICD9: 278.01] Diagnosis: Depression[ICD9: 311] Maria Victoria Harrell MD, [facility] CPT-4: 49955 04/09/2012 ([id number]) 34871 EST. PATIENT, LEVEL IV Diagnosis: Diabetes mellitus type 2, uncontrolled[SNOMED: 25064332] Diagnosis: ESSENTIAL HYPERTENSION[SNOMED: 15160490] SHAILA Macedo MD CPT-4: 04789 03/04/2012 ([id number]) 49049 EST. PATIENT, LEVEL IV Diagnosis: DM W/O COMPLICATION TYPE II, UNCONTROLLED[SNOMED: 32290669] Diagnosis: MORBID OBESITY[ICD9: 278.01] SHAILA Macedo MD CPT-4: 99492 12/03/2011 ([id number]) 45265 EST. PATIENT, LEVEL IV Diagnosis: DM W/O COMPLICATION TYPE II, UNCONTROLLED[SNOMED: 91992611] Diagnosis: ESSENTIAL HYPERTENSION[SNOMED: 43799801] Diagnosis: Hyperlipidemia[ICD9: 272.4] Diagnosis: Morbid obesity[ICD9: 278.01] Maria Victoria Harrell MD [facility] CPT-4: 48987 10/31/2011 ([id number]) 94596 EST. PATIENT, LEVEL IV Diagnosis: ESSENTIAL HYPERTENSION[SNOMED: 60723640] Diagnosis: DM W/O COMPLICATION TYPE II, UNCONTROLLED[SNOMED: 15196682] Diagnosis: MORBID OBESITY[ICD9: 278.01] SHAILA Macedo MD CPT-4: 15223 08/29/2011 30298 EST. PATIENT, LEVEL IV Diagnosis: Diabetes mellitus type 2, uncontrolled[SNOMED: 68167758] Diagnosis: ESSENTIAL HYPERTENSION[SNOMED: 87111296] Diagnosis: Actinic keratosis[ICD9: 702.0] Maria Victoria Harrell MD [facility] CPT-4: 21997 07/18/2011 Plan of Care Planned Activity Notes [...] medications. 07/29/2017 Appointment: Maria Victoria Harrell WPtel: [phone] [facility] (15 min) Moderate 07/29/2017 Patient Education: Patient Medication Summary Completed 07/29/2017 Patient Education: Obesity Completed 07/29/2017 Visit Plan: Skin tag removed - pt tolerated procedure well - Wound Instructions - Pt was instructed to keep the wound clean, wash with antibacterial soap, use triple antibiotic ointment, call if redness, pustular drainage, or any other acute concerns. 07/02/2017 Appointment: [facility]illo [phone] (30 min) Complex 07/02/2017 Patient Education: Patient Medication Summary Completed 07/02/2017 Appointment: Injection 06/28/2017 Patient Education: Patient Medication Summary Completed 06/28/2017 Visit Plan: Sciatica- exercises discussed with the patient, pt to continue with antiinflammatories. Pt is to call if the symptoms do not improve or if they worsen. Kenalog injection today in the office. 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 Hypertension - well controlled - continue with current medications, continue with no added salt diet. Pt has been encouraged to exercise daily. The pt has been advised to call the office if there are any acute concerns about change in blood pressure readings at home. 04/03/2017 Appointment: Maria Victoria Harrell [facility]el[facility] (15 min) Moderate 04/03/2017 Patient Education: Patient [...] care surrogate. 12/13/2016 Appointment: Sunitha Moran WPtel: [facility] [place] [address] - Annual Wellness Visit 12/13/2016 Patient Education: Patient Medication Summary Completed 12/13/2016 Care Plan: Referral Order SNOMED-CT : 504037628 Pending 12/13/2016 Visit Plan: Hypertension - well [...] controlled. 12/05/2016 Appointment: Maria Victoria Harrell WPtel: [facility] (15 min) Moderate 12/05/2016 Patient Education: Patient Medication Summary Completed 12/05/2016 Patient Education: Obesity Completed 12/05/2016 Care Plan: CT ABD & PELVIS W/O CONTRAST LOINC : 21063-6 Pending 12/05/2016 Patient Education: Patient Medication Summary [...] care 08/30/2016 Appointment: Maria Victoria Harrell WPtel: [facility] (15 min) Moderate 08/30/2016 Patient Education: Patient Medication Summary Completed 08/30/2016 Patient Education: Obesity Completed 08/30/2016 Patient Education: Hypertension Completed 08/30/2016 Patient Education: Patient Medication Summary Completed 08/23/2016 Visit Plan: Left forearm pain-use voltaren gel as needed-xray forearm for further evaluation UA negative-patient instructed to increase po fluids-call if symptoms do not resolve 07/13/2016 Appointment: Sunitha Moran WPtel: [phone] (10 min) Simple 07/13/2016 Patient Education: Patient [...] disease process. 06/21/2016 Appointment: Sunitha Moran WPtel: [phone] [place] (30 min) Complex 06/21/2016 Patient Education: Patient Medication Summary Completed 06/21/2016 Appointment: Sunitha Moran WPtel: [address] [place], [place] [phone] [place] (30 min) Complex 06/15/2016 Visit Plan: [...] improve. 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 08/17/2015 Appointment: Maria Victoria Harrell [facility]Ptel: [phone] (15 min) Moderate 08/17/2015 Patient Education: Patient [...] 07/20/2015 Appointment: Maria Victoria Harrell WPtel: [phone] [place] (15 min) Moderate 07/20/2015 Patient [...] 04/20/2015 Appointment: Maria Victoria Harrell WPtel: [phone] [facility] (15 min) Moderate 04/20/2015 Patient Education: [...] home. 02/14/2015 Appointment: Maria Victoria Harrell [facility]el[phone] Follow up 02/14/2015 Patient Education: Patient Medication [...] 11/11/2014 Appointment: Maria Victoria Harrell WPtel: [phone] [facility] Follow up 11/11/2014 Patient Education: Patient Medication Summary Completed 11/11/2014 Appointment: Maria Victoria Harrell WPtel: [phone] [facility] [place] Follow up 11/04/2014 Visit Plan: Esophageal [...] 10/04/2014 Appointment: Maria Victoria Harrell WPtel: [phone] [facility] Follow up 10/04/2014 Patient Education: Patient Medication Summary Completed 10/04/2014 Patient Education: Hypertension Completed 10/04/2014 Appointment: Maria Victoria Harrell WPtel: [address] [place], [place] [phone] Follow up 08/19/2014 Visit Plan: Diabetes Mellitus [...] avodart 08/02/2014 Appointment: Maria Victoria Harrell WPtel: [address] [place], [place] [phone] Sick 08/02/2014 Patient Education: Patient Medication Summary Completed 08/02/2014 Patient Education: Hypertension Completed 08/02/2014 Visit Plan: Enlarged prostate with decreased urine flow - recommended that the patient start on tamsulosin 0.4mg daily - will need to start him on this in about 2-3 weeks. Check PSA in 2-3 weeks. 06/15/2014 Appointment: Maria Victoria Harrell WPtel: [address] [place] [address] Follow up 06/15/2014 Patient Education: Patient Medication Summary Completed 06/15/2014 Appointment: Maria Victoria Harrell WPtel: [address] [place], [place] [phone] [place] Injection 06/03/2014 Patient Education: Patient Medication [...] - pt to see this Opthamologist in [place] - May 25. 04/19/2014 Appointment: Maria Victoria Harrell WPtel: [phone] [facility] Follow up 04/19/2014 Patient Education: Patient Medication [...] settings. 02/08/2014 Appointment: Maria Victoria Harrell [facility]Ptel[phone] [place] Follow up 02/08/2014 Patient Education: Patient [...] 01/13/2014 Appointment: Maria Victoria Harrell [facility]Ptel: [phone] [place] Follow up 01/13/2014 Patient Education: [...] not been as physically active over the either. Pt is to bring in his FSBS in a few months. Morbid Obesity - pt is aware of the need to exercise and continue to work on weight loss. Hand pain - specifically right tumb pain - recommended referral to Dr. Fine at [facility] [address] [place] [address]. 10/14/2013 Patient Education: Patient Medication Summary Completed [...] 07/01/2013 Appointment: Maria Victoria Harrell WPtel: [phone] [facility] Follow up 07/01/2013 Patient Education: Patient Medication Summary Completed 07/01/2013 Patient Education: Hypertension Completed 07/01/2013 Appointment: Maria Victoria Harrell WPtel: [phone] [facility] Other 05/13/2013 Patient Education: Patient Medication Summary Completed 05/13/2013 Appointment: Maria Victoria Harrell WPtel: [phone] [facility] Other 04/15/2013 Patient Education: Patient Medication [...] loss. 03/04/2013 Appointment: Maria Victoria Harrell WPtel: [facility] Follow up 03/04/2013 Patient Education: Patient [...] body. 02/04/2013 Appointment: Maria Victoria Harrell WPtel: [facility] Follow up 02/04/2013 Patient Education: Patient Medication [...] bedtime. 12/03/2012 Appointment: Maria Victoria Harrell WPtel: [address] [place], [place] [phone] Follow up 12/03/2012 Patient Education: Patient Medication Summary Completed 12/03/2012 Visit Plan: Tinnitus-cerumen impaction-cerumen adhered to left TM-discussed using sweet oil nightly for the next week and call if symptoms have not improved. Patient verbalized understanding of plan . 10/14/2012 Appointment: Sunitha Moran WPtel: [address] [place], [place] [phone] Sick 10/14/2012 Patient Education: Patient Medication Summary Completed 10/14/2012 Visit Plan: Arthritis- occasionally uncontrolled symptoms- recommend pt to take antiinflammatory as directed for pain control. Use tylenol for break through pain symptoms. 09/29/2012 Appointment: Maria Victoria Harrell WPtel: [facility] Other 09/29/2012 Patient Education: Patient Medication Summary [...] sugars 09/25/2012 App[facility]ment: [facility]el[phone] Other 09/25/2012 Patient Education: Patient Medication Summary [...] 08/27/2012 Appointment: Maria Victoria Harrell [facility]Ptel: [phone] Follow up 08/27/2012 Patient Education: Patient [...] 06/25/2012 Appointment: Maria Victoria Harrell WPtel: [phone] [facility] Follow up 06/25/2012 Patient Education: Patient Medication [...] night. 06/03/2012 Appointment: Maria Victoria Harrell WPtel: [facility] Follow up 06/03/2012 Patient Education: Patient [...] pain. 04/24/2012 Appointment: Maria Victoria Harrell WPtel: [facility] Follow up 04/24/2012 Patient Education: Patient [...] improve. 04/09/2012 Appointment: Maria Victoria Harrell WPtel: [phone] [facility] Other 04/09/2012 Patient Education: Patient Medication Summary Completed 04/09/2012 Patient Education: .Amazing charts Exercise for Sciatica Completed 04/09/2012 Appointment: Sunitha Moran WPtel: [phone] [phone] Other 03/13/2012 Visit Plan: Diabetes Mellitus - [...] pain. 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 10/31/2011 Appointment: Maria Victoria Har[facility]el: [phone] Other 10/31/2011 Patient Education: Patient Medication [...] 08/29/2011 Appointment: Maria Victoria Harrell [facility]el[phone] Other 08/29/2011 Patient Education: Patient Medication Summary Completed 08/29/2011 Patient Education: High Blood Pressure: Essential Hypertension Completed 08/29/2011 Visit Plan: left index finger irritated actinic keratosis removed actinic keratosis removed from dorsum of hand as well and in web of the 4th digit 07/24/2011 Appointment: Maria Victoria Harrell [facility]Ptel[phone] [facility] 07/24/2011 Patient Education: Patient [...] daily. 07/18/2011 Appointment: Maria Victoria Harrell WPtel: [facility] Other 07/18/2011 Patient Education: Patient Medication Summary Completed 07/18/2011 Patient Education: High Blood Pressure: Essential Hypertension Completed 07/18/2011 Referral: Jose Manuel Referral Appointment Requested Referral: Kiran Laird MD WPtel: Referral Completed Instructions Comment . Tinnitus-cerumen impaction-cerumen adhered to left TM-discussed using sweet oil nightly for the next week and call if symptoms have not improved. Patient verbalized understanding of plan . 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 Hypertension - well controlled - continue with [...] through pain symptoms. . Diabetes Mellitus - controlled - per [...] at home. BPH - start avodart . Mild Cognitive Impairment - discussed with [...] improve with adjustments of his CPAP settings. INCREASE LANTUS TO 30 UNITS TWICE DAILY!!!!! [...] to obtain more profound weight loss. . Hypertension - well controlled - continue [...] in one month for weight check. . 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 . Low back pain- the patient was [...] by renal function or other disease process. trujeo - new insulin dose would be 60 units daily Belviq for weight loss - 10mg twice daily - see cost at [facility] . Diabetes Mellitus - Uncontrolled [...] readings are starting to become less controlled. xray left forearm . Left forearm pain-use voltaren gel as needed-xray forearm for further evaluation UA negative-patient instructed to increase po fluids-call if symptoms do not resolve . Diabetes Mellitus - Uncontrolled - per [...] increase in pain. . Diabetes Mellitus - controlled - per [...] is worsening or does not improve. . Diabetes Mellitus - Uncontrolled [...] only 3 units increase was made. . Sacroilitis-right hip pain-sciatica - back exercises discussed with the patient, pt to continue with antiinflammatories. Pt is to call if the symptoms do not improve or if they worsen. Kenalog injection today in the office for acute symtpoms. LEVEMIR - ask insurance how much this will cost you continuous churn buttermaker decrease toujeo to 40 units daily increase [...] insurance how much this will cost you halfway decrease toujeo to 40 units daily increase [...] - pt to see this Opthamologist in [place] - May 25. BRING IN THE GLUCOMETER [...] for further treatment or ear lavage today joint juice, joint ease, glucosamine and chondroiton [...] - recommended referral to Dr. Fine at [facility] [address] [place] [address].
--- OUTSIDE RECORDS SUMMARY | 2019-01-23 15:54 | XMS REPORT | Continuity of Care Document ---
Author Organization Unknown Address Unknown Allergies Active Description Code Type Severity Reaction Onset Reported/Identified Relationship to Patient Clinical Status Yes NO KNOWN DRUG ALLERGIES UNKNOWN NO KNOWN DRUG ALLERG Yes morphine [id number] Drug Allergy Moderate PSYCH ISSUES 01/21/2017 Medications There is no data. Problems Date Dx Coded Attending Type Code Diagnosis Diagnosed By 03/09/2011 Ot 250.00 DIAB WATSON WO COMPL, TYPE II OR UNSPEC TY 03/09/2011 Ot 355.0 SCIATIC NERVE LESION 03/09/2011 Ot 401.9 HYPERTENSION NOS 03/09/2011 Ot 726.5 ENTHESOPATHY OF HIP 03/09/2011 Ot V57.1 PHYSICAL THERAPY NEC 12/06/2011 Ot 250.00 DIAB WATSON WO COMPL, TYPE II OR UNSPEC TY 12/06/2011 Ot 272.4 HYPERLIPIDEMIA NEC/NOS 12/06/2011 Ot 401.9 HYPERTENSION NOS 12/06/2011 Ot 414.01 CORONARY ATHEROSCLEROSIS OF [place] CORON 12/06/2011 Ot 433.10 CAROTID ARTERY OCCLUSION W O CEREBRAL IN 12/06/2011 Ot 715.90 OSTEOARTHROS NOS-UNSPEC 12/06/2011 Ot 794.30 ABN CARDIOVASC STUDY NOS 12/06/2011 Ot V17.49 FAMILY HISTORY OF OTHER CARDIOVASCULAR D 12/06/2011 Ot V58.66 LONG-TERM (CURRENT) USE OF ASPIRIN 12/06/2011 Ot V58.69 OTH MED,LT,CURRENT USE 12/06/2011 Ot V85.42 BODY MASS INDEX 45.0-49.9, ADULT 05/17/2012 Ot 327.23 OBSTRUCTIVE SLEEP APNEA (ADULT) (PEDIATR 05/17/2012 Ot 327.51 PERIODIC LIMB MOVEMENT DISORDER 05/25/2012 Ot 461.9 ACUTE SINUSITIS NOS 05/25/2012 Ot 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 03/11/2013 CJ JOYA MD Ot 724.5 BACKACHE NOS 03/11/2013 CJ JOYA MD Ot V57.1 PHYSICAL THERAPY NEC 09/23/2014 Ot 250.00 09/23/2014 Ot 272.4 09/23/2014 Ot 401.9 09/23/2014 Ot 413.9 09/23/2014 Ot 729.5 09/23/2014 Ot V58.63 09/23/2014 Ot V58.69 09/23/2014 Ot V72.63 09/23/2014 Ot V72.81 09/23/2014 CJ JOYA MD Ot 368.9 09/23/2014 FRANCISCO JAVIER VALENTINC, ALI FACP CCDS Ot 250.00 09/23/2014 FRANCISCO JAVIER VALENTINC, ALI FACP CCDS Ot 272.4 09/23/2014 FRANCISCO JAVIER VALENTINC, ALI FACP CCDS Ot 414.00 09/23/2014 FRANCISCO JAVIER VALENTINC, ALI FACP CCDS Ot 447.9 09/23/2014 FRANCISCO JAVIER TRINIDAD FACC, ALI FACP CCDS Ot 785.2 10/05/2014 Ot 250.00 10/05/2014 Ot 272.4 10/05/2014 Ot 401.9 10/05/2014 Ot 413.9 10/05/2014 Ot 729.5 10/05/2014 Ot V58.63 10/05/2014 Ot V58.69 10/05/2014 Ot V72.63 10/05/2014 Ot V72.81 10/05/2014 CJ JOYA MD Ot 368.9 10/05/2014 FRANCISCO JAVIER TRINIDAD FACC, ALI FACP CCDS Ot 250.00 10/05/2014 FRANCISCO JAVIER TRINIDAD FACC, ALI FACP CCDS Ot 272.4 10/05/2014 FRANCISCO JAVIER TRINIDAD FACC, ALI FACP CCDS Ot 414.00 10/05/2014 FRANCISCO JAVIER TRINIDAD FACC, ALI FACP CCDS Ot 447.9 10/05/2014 FRANCISCO JAVIER VALENTINC, ALI FACP CCDS Ot 785.2 10/05/2014 FRANCISCO JAVIER VALENTINC, ALI FACP CCDS Ot 250.00 DIAB WATSON WO COMPL, TYPE II OR UNSPEC TY 10/05/2014 FRANCISCO JAVIER VALENTINC, ALI FACP CCDS Ot 414.01 CORONARY ATHEROSCLEROSIS OF [place] CORON 10/05/2014 FRANCISCO JAVIER TRINIDAD FACC, ALI FACP CCDS Ot 414.4 CORONARY ATHEROSCLEROSIS DUE TO CALCIFIE 10/05/2014 FRANCISCO JAVIER VALENTINC, ALI FACP CCDS Ot 433.10 CAROTID ARTERY OCCLUSION W O CEREBRAL IN 10/05/2014 FRANCISCO JAVIER TRINIDAD FACC, ALI FACP CCDS Ot 786.59 CHEST PAIN NEC 10/05/2014 FRANCISCO JAVIER TRINIDAD FACC, ALI FACP CCDS Ot V58.69 OTH MED,LT,CURRENT USE 10/18/2014 JENNA TRINIDAD, KILEY Hernandez Ot 250.00 DIAB WATSON WO COMPL, TYPE II OR UNSPEC TY 10/18/2014 JENNA TRINIDAD, KILEY Hernandez Ot 530.3 ESOPHAGEAL STRICTURE 11/03/2014 FRANCISCO JAVIER TRINIDAD FACC, ALI FACP CCDS Ot 250.00 11/03/2014 FRANCISCO JAVIER TRINIDAD FACC, ALI FACP CCDS Ot 272.4 11/03/2014 FRANCISCO JAVIER TRINIDAD FACC, ALI FACP CCDS Ot 278.00 11/03/2014 FRANCISCO JAVIER TRINIDAD FACC, ALI FACP CCDS Ot 414.00 11/03/2014 FRANCISCO JAVIER TRINIDAD FACC, ALI FACP CCDS Ot 447.9 11/03/2014 FRANCISCO JAVIER VALENTINC, ALI FACP CCDS Ot 715.90 11/03/2014 FRANCISCO JAVIER TRINIDAD FACC, ALI FACP CCDS Ot 780.57 11/03/2014 FRANCISCO JAVIER TRINIDAD FACC, ALI FACP CCDS Ot 786.59 11/04/2014 FRANCISCO JAVIER TRINIDAD FACC, ALI FACP CCDS Ot 250.00 11/04/2014 FRANCISCO JAVIER TRINIDAD FACC, ALI FACP CCDS Ot 272.4 11/04/2014 FRANCISCO JAVIER TRINIDAD FACC, ALI FACP CCDS Ot 278.00 11/04/2014 FRANCISCO JAVIER TRINIDAD FACC, ALI FACP CCDS Ot 414.00 11/04/2014 FRANCISCO JAVIER TRINIDAD FACC, ALI FACP CCDS Ot 447.9 11/04/2014 FRANCISCO JAVIER TRINIDAD FACC, ALI FACP CCDS Ot 715.90 11/04/2014 FRANCISCO JAVIER TRINIDAD FACC, ALI FACP CCDS Ot 780.57 11/04/2014 FRANCISCO JAVIER TRINIDAD FACC, ALI FACP CCDS Ot 786.59 07/16/2016 Ot 250.00 DIAB WATSON WO COMPL, TYPE II OR UNSPEC TY 07/16/2016 Ot 272.4 HYPERLIPIDEMIA NEC/NOS 07/16/2016 Ot 401.9 HYPERTENSION NOS 07/16/2016 Ot 413.9 ANGINA PECTORIS NEC/NOS 07/16/2016 Ot 729.5 PAIN IN LIMB 07/16/2016 Ot V58.63 LONG-TERM(CURRENT)USE OF ANTIPLATELET/AN 07/16/2016 Ot V58.69 OTH MED,LT,CURRENT USE 07/16/2016 Ot V72.63 PRE-PROCEDURAL LABORATORY EXAMINATION 07/16/2016 Ot V72.81 ULEZ-[id number]-[id number] CARDIOVASCULAR 07/16/2016 TOAN TRINIDAD, CJ Pritchard Ot 368.9 VISUAL DISTURBANCE NOS 07/16/2016 FRANCISCO JAVIER TRINIDAD FACC, ALI FACP CCDS Ot 250.00 DIAB WATSON WO COMPL, TYPE II OR UNSPEC TY 07/16/2016 FRANCISCO JAVIER VALENTINC, ALI FACP CCDS Ot 272.4 HYPERLIPIDEMIA NEC/NOS 07/16/2016 FRANCISCO JAVIER VALENTINC, ALI FACP CCDS Ot 414.00 CORON ATHEROSCLER NOS TYPE VESSEL, NATIV 07/16/2016 FRANCISCO JAVIER TRINIDAD FACC, ALI FACP CCDS Ot 447.9 ARTERIAL DISEASE NOS 07/16/2016 FRANCISCO JAVIER TRINIDAD FACC, ALI FACP CCDS Ot 785.2 CARDIAC MURMURS NEC 07/16/2016 FRANCISCO JAVIER TRINIDAD FACC, ALI FACP CCDS Ot 250.00 DIAB WATSON WO COMPL, TYPE II OR UNSPEC TY 07/16/2016 FRANCISCO JAVIER VALENTINC, ALI FACP CCDS Ot 272.4 HYPERLIPIDEMIA NEC/NOS 07/16/2016 FRANCISCO JAVIER TRINIDAD FACC, ALI FACP CCDS Ot 278.00 OBESITY, NOS 07/16/2016 FRANCISCO JAVIER VALENTINC, ALI FACP CCDS Ot 414.00 CORON ATHEROSCLER NOS TYPE VESSEL, NATIV 07/16/2016 FRANCISCO JAVIER TRINIDAD FACC, ALI FACP CCDS Ot 447.9 ARTERIAL DISEASE NOS 07/16/2016 FRANCISCO JAVIER TRINIDAD FACC, ALI FACP CCDS Ot 715.90 OSTEOARTHROS NOS-UNSPEC 07/16/2016 FRANCISCO JAVIER TRINIDAD FACC, ALI FACP CCDS Ot 780.57 UNSPECIFIED SLEEP APNEA 07/16/2016 FRANCISCO JAVIER TRINIDAD FACC, ALI FACP CCDS Ot 786.59 CHEST PAIN NEC 07/16/2016 JENNA TRINIDAD, KILEY Hernandez Ot V72.84 EXAM PRE-OPERATIVE NOS 07/17/2016 DREW LAGUNAS WELDER ASSEMBLER Ot M79.632 PAIN IN LEFT FOREARM 08/07/2016 DREW LAGUNAS WELDER ASSEMBLER Ot M79.632 PAIN IN LEFT FOREARM 08/08/2016 DREW LAGUNAS WELDER ASSEMBLER Ot M79.632 PAIN IN LEFT FOREARM 12/14/2016 CJ JOYA MD Ot R19.00 INTRA-ABD AND PELVIC SWELLING, MASS AND 01/10/2017 KILEY WEST MD Ot Z01.818 ENCOUNTER FOR OTHER PREPROCEDURAL EXAMIN 01/10/2017 KILEY WEST MD Ot Z12.11 ENCOUNTER FOR SCREENING FOR MALIGNANT NE 01/15/2017 CJ JOYA MD Ot R19.00 INTRA-ABD AND PELVIC SWELLING, MASS AND 01/21/2017 KILEY WEST MD Ot E11.9 TYPE 2 DIABETES MELLITUS WITHOUT COMPLIC 01/21/2017 KILEY WEST MD Ot E78.5 HYPERLIPIDEMIA, UNSPECIFIED 01/21/2017 KILEY WEST MD Ot I10 ESSENTIAL (PRIMARY) HYPERTENSION 01/21/2017 KILEY WEST MD Ot I25.10 ATHSCL HEART DISEASE OF [place] CORONARY 01/21/2017 KILEY WEST MD Ot K21.9 GASTRO-ESOPHAGEAL REFLUX DISEASE WITHOUT 01/21/2017 KILEY WEST MD Ot K57.30 DVRTCLOS OF LG INT W/O PERFORATION OR AB 01/21/2017 KILEY WEST MD Ot M19.90 UNSPECIFIED OSTEOARTHRITIS, UNSPECIFIED 01/21/2017 KILEY WEST MD Ot Z12.11 ENCOUNTER FOR SCREENING FOR MALIGNANT NE 01/22/2017 KILEY WEST MD Ot E11.9 TYPE 2 DIABETES MELLITUS WITHOUT COMPLIC 01/22/2017 KILEY WEST MD Ot E78.5 HYPERLIPIDEMIA, UNSPECIFIED 01/22/2017 KILEY WEST MD Ot I10 ESSENTIAL (PRIMARY) HYPERTENSION 01/22/2017 KILEY WEST MD Ot I25.10 ATHSCL HEART DISEASE OF [place] CORONARY 01/22/2017 KILEY WEST MD Ot K21.9 GASTRO-ESOPHAGEAL REFLUX DISEASE WITHOUT 01/22/2017 KILEY WEST MD Ot K57.30 DVRTCLOS OF LG INT W/O PERFORATION OR AB 01/22/2017 KILEY WEST MD Ot M19.90 UNSPECIFIED OSTEOARTHRITIS, UNSPECIFIED 01/22/2017 KILEY WEST MD Ot Z12.11 ENCOUNTER FOR SCREENING FOR MALIGNANT NE 01/24/2017 TOAN MD, CJ A Ot R19.00 INTRA-ABD AND PELVIC SWELLING, MASS AND 01/27/2017 JENNA TRINIDAD, KILEY Hernandez Ot E11.9 TYPE 2 DIABETES MELLITUS WITHOUT COMPLIC 01/27/2017 JENNA TRINIDAD, KILEY Hernandez Ot E78.5 HYPERLIPIDEMIA, UNSPECIFIED 01/27/2017 KILEY WEST MD Ot I10 ESSENTIAL (PRIMARY) HYPERTENSION 01/27/2017 KILEY EWST MD Ot I25.10 ATHSCL HEART DISEASE OF [place] CORONARY 01/27/2017 JENNA TRINIDAD, KILEY Hernandez Ot K21.9 GASTRO-ESOPHAGEAL REFLUX DISEASE WITHOUT 01/27/2017 JENNA TRINIDAD, KILEY Hernandez Ot K57.30 DVRTCLOS OF LG INT W/O PERFORATION OR AB 01/27/2017 KILEY WEST MD Ot M19.90 UNSPECIFIED OSTEOARTHRITIS, UNSPECIFIED 01/27/2017 JENNA TRINIDAD, KILEY Hernandez Ot Z12.11 ENCOUNTER FOR SCREENING FOR MALIGNANT NE 02/12/2017 DREW LAGUNAS Ot R19.05 PERIUMBILIC SWELLING, MASS OR LUMP 02/18/2017 DREW LAGUNASP Ot R19.05 PERIUMBILIC SWELLING, MASS OR LUMP 04/10/2017 CJ JOYA MD Ot R00.2 PALPITATIONS 04/12/2017 CJ JOYA MD Ot I49.9 CARDIAC ARRHYTHMIA, UNSPECIFIED 05/06/2017 CJ JOYA MD Ot I49.9 CARDIAC ARRHYTHMIA, UNSPECIFIED 06/26/2017 ASIF DOMINGUEZ WELDER ASSEMBLER Ot E78.4 OTHER HYPERLIPIDEMIA 06/26/2017 ASIF DOMINGUEZP Ot I25.10 ATHSCL HEART DISEASE OF [place] CORONARY 06/26/2017 ASIF DOMINGUEZ WELDER ASSEMBLER Ot I65.23 OCCLUSION AND STENOSIS OF BILATERAL [place] 06/26/2017 ASIF DOMINGUEZ WELDER ASSEMBLER Ot R06.09 OTHER FORMS OF DYSPNEA 07/04/2017 JOSH TRINIDAD, ISI P Ot I51.7 CARDIOMEGALY 07/04/2017 JOSH TRINIDAD, ISI Lagos Ot R05 COUGH 07/10/2017 JOSH TRINIDAD, ISI [place]os Ot I51.7 CARDIOMEGALY 07/10/2017 JOSH TRINIDAD, ISI [place]os Ot R05 COUGH 07/17/2017 ASIF DOMINGUEZ WELDER ASSEMBLER Ot E78.4 OTHER HYPERLIPIDEMIA 07/17/2017 BAIMA, ASIF L WELDER ASSEMBLER Ot I25.10 ATHSCL HEART DISEASE OF [place] CORONARY 07/17/2017 BAIMA, ASIF L WELDER ASSEMBLER Ot I65.23 OCCLUSION AND STENOSIS OF BILATERAL [place] 07/17/2017 BAIMA, ASIF L WELDER ASSEMBLER Ot R06.09 OTHER FORMS OF DYSPNEA 07/31/2017 BAIMA, ASIF L WELDER ASSEMBLER Ot E78.4 OTHER HYPERLIPIDEMIA 07/31/2017 BAIMA, AISF L WELDER ASSEMBLER Ot I25.10 ATHSCL HEART DISEASE OF [place] CORONARY 07/31/2017 BAIMA, ASIF L WELDER ASSEMBLER Ot I65.23 OCCLUSION AND STENOSIS OF BILATERAL [place] 07/31/2017 BAIMA, ASIF L WELDER ASSEMBLER Ot R06.09 OTHER FORMS OF DYSPNEA 08/05/2017 BAIMA, ASIF L WELDER ASSEMBLER Ot E78.4 OTHER HYPERLIPIDEMIA 08/05/2017 BAIMA, ASIF L WELDER ASSEMBLER Ot I25.10 ATHSCL HEART DISEASE OF [place] CORONARY 08/05/2017 BAIMA, ASIF L WELDER ASSEMBLER Ot I65.23 OCCLUSION AND STENOSIS OF BILATERAL [place] 08/05/2017 BAIMA, ASIF L WELDER ASSEMBLER Ot R06.09 OTHER FORMS OF DYSPNEA 08/08/2017 BAIMA, ASIF L WELDER ASSEMBLER Ot E78.4 OTHER HYPERLIPIDEMIA 08/08/2017 BAIMA, ASIF L WELDER ASSEMBLER Ot I25.10 ATHSCL HEART DISEASE OF [place] CORONARY 08/08/2017 BAIMA, ASIF L WELDER ASSEMBLER Ot I65.23 OCCLUSION AND STENOSIS OF [place]ILATERAL [place] 08/08/2017 BAIMA, ASIF L WELDER ASSEMBLER Ot R06.09 OTHER FORMS OF DYSPNEA 12/11/2018 FRANCISCO JAVIER TRINIDAD FACC, ALI FACP CCDS Ot 250.00 DIAB WATSON WO COMPL, TYPE II OR UNSPEC TY 12/11/2018 FRANCISCO JAVIER TRINIDAD FACC, ALI FACP CCDS Ot 272.4 HYPERLIPIDEMIA NEC/NOS 12/11/2018 FRANCISCO JAVIER TRINIDAD FACC, ALI FACP CCDS Ot 414.00 CORON ATHEROSCLER NOS TYPE VESSEL, NATIV 12/11/2018 FRANCISCO JAVIER TIRNIDAD FACC, ALI FACP CCDS Ot 447.9 ARTERIAL DISEASE NOS 12/11/2018 FRANCISCO JAVIER TRINIDAD FACC, ALI FACP CCDS Ot 785.2 CARDIAC MURMURS NEC 12/11/2018 FRANCISCO JAVIER TRINIDAD FACC, ALI FACP CCDS Ot 250.00 DIAB WATSON WO COMPL, TYPE II OR UNSPEC TY 12/11/2018 FRANCISCO [facility]VIER [facility], ALI FACP CCDS Ot 272.4 HYPERLIPIDEMIA NEC/NOS 12/11/2018 FRANCISCO JAVIER VALENTIN, ALI FACP CCDS Ot 278.00 OBESITY, NOS 12/11/2018 FRANCISCO JAVIER VALENTIN, ALI FACP CCDS Ot 414.00 CORON ATHEROSCLER NOS TYPE VESSEL, NATIV 12/11/2018 FRANCISCO JAVIER [facility], ALI FACP CCDS Ot 447.9 ARTERIAL DISEASE NOS 12/11/2018 FRANCISCO JAVIER [facility], ALI FACP CCDS Ot 715.90 OSTEOARTHROS NOS-UNSPEC 12/11/2018 FRANCISCO JAVIER [facility], ALI FACP CCDS Ot 780.57 UNSPECIFIED SLEEP APNEA 12/11/2018 FRANCISCO JAVIER VALENTIN, ALI FACP CCDS Ot 786.59 CHEST PAIN NEC 12/11/2018 JENNA TRINIDAD, KILEY Hernandez Ot V72.84 EXAM PRE-OPERATIVE NOS 12/11/2018 DREW LAGUNAS WELDER ASSEMBLER Ot M79.632 PAIN IN LEFT FOREARM 12/11/2018 CJ JOYA MD Ot R19.00 INTRA-ABD AND PELVIC SWELLING, MASS AND 12/11/2018 DREW LAGUNAS WELDER ASSEMBLER Ot R19.05 PERIUMBILIC SWELLING, MASS OR LUMP 12/11/2018 CJ JOYA MD Ot I49.9 CARDIAC ARRHYTHMIA, UNSPECIFIED 12/11/2018 JOSH TRINIDAD, ISI Lagos Ot I51.7 CARDIOMEGALY 12/11/2018 JOSH TRINIDAD, ISI [place]os Ot R05 COUGH 12/11/2018 ASIF DOMINGUEZ WELDER ASSEMBLER Ot E78.4 OTHER HYPERLIPIDEMIA 12/11/2018 ASIF DOMINGUEZ WELDER ASSEMBLER Ot I25.10 ATHSCL HEART DISEASE OF [place] CORONARY 12/11/2018 ASIF DOMINGUEZ WELDER ASSEMBLER Ot I65.23 OCCLUSION AND STENOSIS OF BILATERAL [place] 12/11/2018 ASIF DOMINGUEZ WELDER ASSEMBLER Ot R06.09 OTHER FORMS OF DYSPNEA 12/11/2018 ASIF DOMINGUEZ WELDER ASSEMBLER Ot E78.4 OTHER HYPERLIPIDEMIA 12/11/2018 ASIF DOMINGUEZ WELDER ASSEMBLER Ot I25.10 ATHSCL HEART DISEASE OF [place] CORONARY 12/11/2018 ASIF DOMINGUEZ WELDER ASSEMBLER Ot I65.23 OCCLUSION AND STENOSIS OF BILATERAL [place] 12/11/2018 ASIF DOMINGUEZ WELDER ASSEMBLER Ot R06.09 OTHER FORMS OF DYSPNEA 12/12/2018 WYNN DOMALDONADO Ot K43.9 VENTRAL HERNIA WITHOUT OBSTRUCTION OR GA 12/12/2018 WYNN DOMALDONADO D Ot R22.2 LOCALIZED SWELLING, MASS AND LUMP, TRUNK 01/05/2019 WYNN DO, MALDONADO Lee Ot K43.9 VENTRAL HERNIA WITHOUT OBSTRUCTION OR GA 01/05/2019 WYNN DOMALDONADO D Ot R22.2 LOCALIZED SWELLING, MASS AND LUMP, TRUNK 01/08/2019 FRANCISCO JAVIER TRINIDAD FACC, ALI FACP CCDS Ot 250.00 DIAB WATSON WO COMPL, TYPE II OR UNSPEC TY 01/08/2019 FRANCISCO JAVIER VALENTINC, ALI FACP CCDS Ot 272.4 HYPERLIPIDEMIA NEC/NOS 01/08/2019 FRANCISCO JAVIER VALENTINC, ALI FACP CCDS Ot 414.00 CORON ATHEROSCLER NOS TYPE VESSEL, NATIV 01/08/2019 FRANCISCO JAVIER VALENTINC, ALI FACP CCDS Ot 447.9 ARTERIAL DISEASE NOS 01/08/2019 FRANCISCO JAVIER TRINIDAD FACC, ALI FACP CCDS Ot 785.2 CARDIAC MURMURS NEC 01/08/2019 FRANCISCO JAVIER TRINIDAD FACC, ALI FACP CCDS Ot 250.00 DIAB WATSON WO COMPL, TYPE II OR UNSPEC TY 01/08/2019 FRANCISCO JAVIER VALENTINC, ALI FACP CCDS Ot 272.4 HYPERLIPIDEMIA NEC/NOS 01/08/2019 FRANCISCO JAVIER VALENTINC, ALI FACP CCDS Ot 278.00 OBESITY, NOS 01/08/2019 FRANCISCO JAVIER VALENTINC, ALI FACP CCDS Ot 414.00 CORON ATHEROSCLER NOS TYPE VESSEL, NATIV 01/08/2019 FRANCISCO JAVIER TRINIDAD FACC, ALI FACP CCDS Ot 447.9 ARTERIAL DISEASE NOS 01/08/2019 FRANCISCO JAVIER TRINIDAD FACC, ALI FACP CCDS Ot 715.90 OSTEOARTHROS NOS-UNSPEC 01/08/2019 FRANCISCO JAVIER TRINIDAD FACC, ALI FACP CCDS Ot 780.57 UNSPECIFIED SLEEP APNEA 01/08/2019 FRANCISCO JAVIER TRINIDAD FACC, ALI FACP CCDS Ot 786.59 CHEST PAIN NEC 01/08/2019 JENNA TRINIDAD, KILEY Hernandez Ot V72.84 EXAM PRE-OPERATIVE NOS 01/08/2019 DREW LAGUNAS WELDER ASSEMBLER Ot M79.632 PAIN IN LEFT FOREARM 01/08/2019 TOAN TRINIDAD, CJ Pritchard Ot R19.00 INTRA-ABD AND PELVIC SWELLING, MASS AND 01/08/2019 DREW LAGUNAS Ot R19.05 PERIUMBILIC SWELLING, MASS OR LUMP 01/08/2019 TOAN TRINIDAD, CJ Pritchard Ot I49.9 CARDIAC ARRHYTHMIA, UNSPECIFIED 01/08/2019 JOSH TRINIDAD, ISI Lagos Ot I51.7 CARDIOMEGALY 01/08/2019 OJSH TRINIDAD, ISI Lagos Ot R05 COUGH 01/08/2019 BAIMA, ASIF L WELDER ASSEMBLER Ot E78.4 OTHER HYPERLIPIDEMIA 01/08/2019 BAIMA, ASIF L WELDER ASSEMBLER Ot I25.10 ATHSCL HEART DISEASE OF [place] CORONARY 01/08/2019 BAIMA, ASIF L WELDER ASSEMBLER Ot I65.23 OCCLUSION AND STENOSIS OF BILATERAL [place] 01/08/2019 BAIMA, ASIF L WELDER ASSEMBLER Ot R06.09 OTHER FORMS OF DYSPNEA 01/08/2019 BAIMA, ASIF L WELDER ASSEMBLER Ot E78.4 OTHER HYPERLIPIDEMIA 01/08/2019 BAIMA, ASIF L WELDER ASSEMBLER Ot I25.10 ATHSCL HEART DISEASE OF [place] CORONARY 01/08/2019 BAIMA, ASIF L WELDER ASSEMBLER Ot I65.23 OCCLUSION AND STENOSIS OF BILATERAL [place] 01/08/2019 BAIMA, ASIF L WELDER ASSEMBLER Ot R06.09 OTHER FORMS OF DYSPNEA 01/08/2019 MALDONADO WYNN DO Ot K43.9 VENTRAL HERNIA WITHOUT OBSTRUCTION OR GA 01/08/2019 MALDONADO WYNN DO Ot R22.2 LOCALIZED SWELLING, MASS AND LUMP, TRUNK 01/08/2019 MALDONADO WYNN DO Ot K43.9 VENTRAL HERNIA WITHOUT OBSTRUCTION OR GA 01/08/2019 MALDONADO WYNN DO Ot R22.2 LOCALIZED SWELLING, MASS AND LUMP, TRUNK 01/12/2019 MALDONADO WYNN DO Ot R19.09 OTHER INTRA-ABDOMINAL AND PELVIC SWELLIN 01/12/2019 MALDONADO WYNN DO Ot Z01.810 ENCOUNTER FOR PREPROCEDURAL CARDIOVASCUL 01/12/2019 MALDONADO WYNN DO Ot Z11.2 ENCOUNTER FOR SCREENING FOR OTHER BACTER 01/19/2019 Maldonado Wynn V58.31 ENCOUNTER FOR CHANGE OR REMOVAL OF SURGICAL WOUND DRESSING 01/19/2019 Maldonado Wynn Z48.01 ENCOUNTER FOR CHANGE OR REMOVAL OF SURGICAL WOUND DRESSING Procedures There is no data. Results Test Result Range Methicillin resistant Staphylococcus aureus (MRSA) screening culture - 01/08/19 09:32 Methicillin resistant Staphylococcus aureus (MRSA) screening culture NEG NRG Capillary blood glucose measurement by glucometer (mass/volume) - 01/15/19 06:34 Capillary blood glucose measurement by glucometer (mass/volume) 132 mg/dL 70-110 Encounters ACCT No. Visit Date/Time Discharge Status Pt. Type Provider Facility Loc./Unit Complaint [id number] 01/19/2019 11:04:00 01/19/2019 12:05:00 DIS Outpatient Maldonado Wynn [id number] 01/20/2019 11:57:42 Document Registration [id number] 01/15/2019 06:17:00 01/16/2019 13:27:00 DIS Outpatient MALDONADO WYNN DO [facility] SDC ABDOMINAL WALL MASS [id number] 01/08/2019 08:58:00 01/08/2019 09:45:00 DIS Outpatient MALDONADO WYNN DO [facility] PREOP ABDOMINAL WALL MASS [id number] 12/11/2018 16:29:00 12/11/2018 23:59:59 CLS Outpatient MALDONADO WYNN DO [facility] RAD HERNIA OF ABD WALL [id number] 07/11/2017 12:30:00 07/11/2017 23:59:59 CLS Outpatient ASIF DOMINGUEZ WELDER ASSEMBLER [facility] CARD CAD I25.10 [id number] 06/25/2017 11:14:00 06/25/2017 23:59:59 CLS Outpatient ASIF DOMINGUEZ WELDER ASSEMBLER [facility] CARD CAD I25.10 [id number] 06/10/2017 13:40:00 06/10/2017 23:59:59 CLS Outpatient ISI MORENO MD [facility] RAD CHRONIC COUGH [id number] 04/11/2017 09:27:00 04/11/2017 23:59:59 CLS Outpatient CJ JOYA MD [facility] CARD IRREGULAR HEART BEAT [id number] 01/21/2017 10:04:00 01/21/2017 13:55:00 DIS Outpatient KILEY WEST MD [facility] ENDO SCREENING [id number] 01/10/2017 05:37:00 01/10/2017 12:30:00 DIS Outpatient KILEY WEST MD [facility] PREOP SCREENING [id number] 12/31/2016 12:28:00 12/31/2016 23:59:59 CLS Outpatient DREW LAGUNAS WELDER ASSEMBLER [facility] RAD ABD WALL MASS [id number] 12/13/2016 13:58:00 12/13/2016 23:59:59 CLS Outpatient CJ JOYA MD [facility] RAD ABDOMINAL MASS [id number] 07/16/2016 10:32:00 07/16/2016 23:59:59 CLS Outpatient DREW LAGUNAS WELDER ASSEMBLER [facility] RAD LEFT FOREARM PAIN [id number] 10/18/2014 09:55:00 10/18/2014 14:20:00 DIS Outpatient KILEY WEST MD [facility] SDC GERD [id number] 10/14/2014 05:54:00 10/14/2014 23:59:59 CLS Outpatient KILEY WEST MD [facility] PREOP GERD [id number] 10/05/2014 09:43:00 10/05/2014 17:00:00 DIS Outpatient KI MCINTYRE MD, FACC, FACP CCDS [facility] CATH CAD,ABNORMAL STRESS, SOB,FATIGUE [id number] 09/23/2014 07:21:00 09/23/2014 23:59:59 CLS Outpatient KI MCINTYRE MD, FACC, FACP CCDS [facility] CARD CAD HLE CHEST DISCOMFORT [id number] 09/25/2013 12:38:00 09/25/2013 23:59:59 CLS Outpatient KI MCINTYRE MD, FACC, FACP CCDS [facility] CARD HYPERTENSION, CAD, DIABETES [id number] 03/19/2013 10:03:00 03/19/2013 23:59:59 CLS Outpatient CJ JOYA MD [facility] RAD VISUAL FIELD ABN [id number] 03/09/2013 10:29:00 03/11/2013 14:53:00 DIS Outpatient CJ JOYA MD [facility] REHAB BACK PAIN [id number] 01/10/2017 12:13:00 Document Registration [id number] 05/25/2012 20:41:00 Document Registration [id number] 05/16/2012 20:05:00 Document Registration [id number] 12/06/2011 05:44:00 Document Registration [id number] 12/05/2011 07:58:00 Document Registration [id number] 02/28/2011 14:31:00 Document Registration
[2019-01-23 16:06] LABS: CLARITY,URINE CLEAR; COLOR,URINE YELLOW; GLUCOSE, URINE (UA) NEGATIVE (NEGATIVE); KETONES,URINE 3+ (NEGATIVE); LEUKOCYTE ESTERASE ,URINE 1+ (NEGATIVE); NITRITE,URINE NEGATIVE (NEGATIVE); PH,URINE 5 (5-9); PROTEIN,URINE 3+ (NEGATIVE); UROBILINOGEN,URINE 1 MG/DL (NORMAL)
[2019-01-23 16:20] LABS: BILIRUBIN,URINE 1+ (NEGATIVE)
[2019-01-23 16:21] LABS: BACTERIA,URINE NEGATIVE /HPF
--- NOTE | 2019-01-23 16:46 | NUR ---
PT NOTIFEID THAT WAS TRYING TO GET HIM ADMIT.
[2019-01-23] MEDS ORDERED: NS IV 1000 ML 1,000 ML IV SCH (17:00)
[2019-01-23] MEDS ORDERED: cefTRIAXone FOR IV USE 2,000 MG in WATER (STERILE) FOR INJECTION 20 ML IV ONE (17:00)
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
[2019-01-23 17:51] VITALS: BP 150/81
[2019-01-23 17:52] VITALS: BP 150/81
[2019-01-23] MEDS ORDERED: CALCIUM CARBONATE 500 MG (TUMS) TAB.CHEW PO PRN (18:00)
[2019-01-23] MEDS ORDERED: ACETAMINOPHEN 500 MG TAB (TYLENOL) PO PRN (18:00)
[2019-01-23] MEDS ORDERED: DOCUSATE SODIUM 100 MG (COLACE) CAP PO PRN (18:00)
[2019-01-23] MEDS ORDERED: ONDANSETRON 4 MG/2 ML (SDV) Z0FRAN IVP PRN (18:00)
[2019-01-23] MEDS ORDERED: LOPERAMIDE 2 MG (IMODIUM) CAP PO PRN (18:00)
[2019-01-23] MEDS ORDERED: diphenhydrAMINE 25 MG TAB (BENADRYL) PO PRN (18:00)
[2019-01-23] MEDS ORDERED: MELATONIN 3 MG TABLET PO PRN (18:00)
[2019-01-23] MEDS: NS IV 1000 ML 1,000 ML IV SCH (18:49)
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
[2019-01-23 20:59] VITALS: BP 155/69
[2019-01-23] MEDS: POLYETHYLENE GLYCOL 17 GM (MIRALAX) PACK PO SCH (21:59)
[2019-01-23] MEDS: inSUlin ASPART (NovoLOG) 1 UNIT/0.01 ML (CHARGE PER UNIT) SC SCH (22:15)
[2019-01-24 00:05] VITALS: BP 121/58
[2019-01-24 04:00] VITALS: BP 156/81
[2019-01-24] MEDS: NS IV 1000 ML 1,000 ML IV SCH ×2 (05:35→14:33)
[2019-01-24 06:30] LABS: BASOPHILS % (AUTO) 0 % (0-10); EOSINOPHILS # (AUTO) 0.2 10^3/uL (0.0-0.3); EOSINOPHILS % (AUTO) 2 % (0-10); HEMATOCRIT 32 % (40-54); HEMOGLOBIN 10.8 G/DL (13.3-17.7); LYMPHOCYTES # (AUTO) 0.4 X 10^3 (1.0-4.0); LYMPHOCYTES % (AUTO) 3 % (12-44); MEAN CORPUSCULAR HEMOGLOBIN 31 PG (25-34); MEAN CORPUSCULAR HGB CONC 34 G/DL (32-36); MEAN CORPUSCULAR VOLUME 92 FL (80-99); MEAN PLATELET VOLUME 10.7 FL (7.4-10.4); MONOCYTES # (AUTO) 0.9 X 10^3 (0.0-1.0); MONOCYTES % (AUTO) 7 % (0-12); NEUTROPHILS # (AUTO) 10.6 X 10^3 (1.8-7.8); NEUTROPHILS % (AUTO) 88 % (42-75); PLATELET COUNT 233 10^3/uL (130-400); RED CELL DISTRIBUTION WIDTH 13.7 % (10.0-14.5)
[2019-01-24] MEDS: inSUlin ASPART (NovoLOG) 1 UNIT/0.01 ML (CHARGE PER UNIT) SC SCH ×3 (06:46→16:24)
[2019-01-24 06:49] LABS: ALBUMIN 3.3 GM/DL (3.2-4.5); BILIRUBIN,TOTAL 0.7 MG/DL (0.1-1.0); CREATININE SERUM 1.21 MG/DL (0.60-1.30); POTASSIUM 3.5 MMOL/L (3.6-5.0); TOTAL PROTEIN 6.3 GM/DL (6.4-8.2)
[2019-01-24 08:23] VITALS: BP 115/59
[2019-01-24] MEDS: POLYETHYLENE GLYCOL 17 GM (MIRALAX) PACK PO SCH (10:36)
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
[2019-01-24] MEDS ORDERED: KCL 20 MEQ TAB (K-DUR) PO NR (13:56)
[2019-01-24] MEDS ORDERED: LIDOCAINE 1% INJ 20 ML 20 ML VIAL ONE (14:47)
--- NOTE | 2019-01-24 15:27 | Cardiac Procedure Note-CS/ASA ---
Pre-Procedure Note Pre-Op Procedure Note H&P Reviewed The H&P was reviewed, patient examined and no changes noted. Date H&P Reviewed: January 24, 2019 Time H&P Reviewed: 15:10 Conscious Sedation Pre-Proced Time 15:10 ASA Score 3 For ASA 3 and 4: Consider anesthesia and medical clearance. Also, for patients with a history of failed moderate sedation consider anesthesia. Airway Lungs Heart ASA score ASA 1: a normal healthy patient ASA 2: a patient with a mild systemic disease (mid diabetes, controlled hypertension, obesity ASA 3: a patient with a severe systemic disease that limits activity (angina, COPD, prior Myocardial infarction) ASA 4: a patient with an incapacitating disease that is a constant threat to life (CHF, renal failure) ASA 5: a moribund patient not expected to survive 24 hrs. (ruptured aneurysm) ASA 6: a declared brain- patient whose organs are being harvested. For emergent operations, add the letter E after the classification Mallampati Classification Grade 2 Sedation Plan Analgesia, Amnesia, Plan communicated to team members, Discussed options with patient/fam, Discussed risks with patient/fam The patient is an appropriate candidate to undergo the planned procedure, sedation, and anesthesia. The patient immediately re-assessed prior to indication. KI MCINTYRE MD FACP FAC CCDS January 24, 2019 15:27
[2019-01-24] MEDS ORDERED: cefTRIAXone 1,000 MG/SWFI 10 ML IV PUSH IV SCH ×2 (17:00)
--- NOTE | 2019-01-24 19:29 | OPERATIVE REPORT ---
DATE OF SERVICE: 01/24/2019 PREOPERATIVE DIAGNOSIS: Syncope. POSTOPERATIVE DIAGNOSIS: Syncope. PROCEDURE: Implantable loop recorder implantation. INDICATIONS: The patient is a 73-year-old man who had a syncopal episode on 01/23/2019. This is the only episode that he has had. He has a prior history of palpitations for which a Holter monitor has not been helpful. After this episode of syncope, implantable loop recorder implantation was advised and was carried out today after having obtained an informed consent. The left prepectoral area was prepared and draped in the usual sterile fashion. Lidocaine 1% was used for local anesthesia. The tools provided with the Smartaxi LINQ device were used to make a small incision to the left of the sternum anterior to the fourth intercostal space into which the device was placed and the skin was closed with Dermabond and Steri-Strips. He tolerated the procedure well. Job ID: [id number] DocumentID: [id number] Dictated Date: 01/24/2019 15:27:03 Fiber Machine Tender Date: 01/24/2019 19:29:22 Dictated By: KI MCINTYRE MD, MA, FACP, FACC,
== END 2019-01-24 16:20 | disposition home or self-care (01) ==
LOC: EDUNIT# 13:58 → ER 13:59 → 4TH 16:30
PROVIDERS: ADMIT Internal Medicine; ATTEND Internal Medicine
DX: R55 Syncope and collapse (principal); R06.02 Shortness of breath; N30.00 Acute cystitis without hematuria; R05 Cough; I25.10 Atherosclerotic heart disease of native coronary artery without angina pectoris; R13.10 Dysphagia, unspecified; R10.13 Epigastric pain; M19.91 Primary osteoarthritis, unspecified site; I77.819 Aortic ectasia, unspecified site; G47.33 Obstructive sleep apnea (adult) (pediatric); E11.9 Type 2 diabetes mellitus without complications; E78.00 Pure hypercholesterolemia, unspecified; I10 Essential (primary) hypertension; H91.90 Unspecified hearing loss, unspecified ear; N40.0 Benign prostatic hyperplasia without lower urinary tract symptoms; K21.9 Gastro-esophageal reflux disease without esophagitis; E86.0 Dehydration; N28.9 Disorder of kidney and ureter, unspecified; G89.18 Other acute postprocedural pain; Z79.899 Other long term (current) drug therapy; Z79.82 Long term (current) use of aspirin; Z98.890 Other specified postprocedural states; Z88.5 Allergy status to narcotic agent; V47.5XXA Car driver injured in collision with fixed or stationary object in traffic accident, initial encounter
CPT/HCPCS: 33285; 36415; 70450; 72125; 74022; 80053; 81000; 82962; 83036; 84484; 85007; 85025; 85027; 87077; 87088; 87186

== ENCOUNTER 2019-02-01 09:44 | Emergency (ER) | payer MEDICARE, OTHER | END 2019-02-01 10:33 | disposition home or self-care (01) | LOC: ER 09:44 ==

== ENCOUNTER 2019-02-02 14:10 | Emergency (ER) | payer MEDICARE ==
[~2019-02-02] VITALS: Ht 170.2 cm; Wt 103.0 kg
--- NOTE | 2019-02-02 15:04 | NUR ---
PT STATES HIS WOUND VAC KEEPS ALARMING BLOCKAGE, WOUND VAC DRESSING, TUBE, SUCTION CANISTER CHANGED, PT HANSA WELL, WOUND VAC IS NO LONGER ALARMING, PHYSICIAN NOTIFIED
--- NOTE | 2019-02-02 15:19 | ED General ---
General Chief Complaint: Skin/Wound Problems Stated Complaint: WOUND VAC PROBLEMS Nursing Triage Note: PT HAS INCREASED BLOCKAGE ERRORS AND LEAKAGE ERRORS ON HIS WOUND VAC. PT IS SUPPOSE TO SEE WOUND CARE TOMORROW. Nursing Sepsis Screen: No Definite Risk Source of Information: Patient Exam Limitations: No Limitations History of Present Illness Date Seen by Provider: February 02, 2019 Time Seen by Provider: 15:05 Initial Comments Here with report of wound VAC problems including blockage and leakage. He is to see wound care tomorrow. He was seen yesterday for same and had improvement but it failed this morning. Denies other complaints. Timing/Duration: 4-6 Hours Severity: Mild Associated Systoms: Denies Symptoms Allergies and Home Medications Allergies Coded Allergies: morphine (Verified Adverse Reaction, Intermediate, PSYCH ISSUES, 01/21/17) Home Medications Acetaminophen 500 Mg Tablet, 500 MG PO Q6H PRN for PAIN-MILD TO MODERATE Prescribed by: CJ JOYA on 01/16/19 0947 Aspirin 81 Mg Tab.chew, 81 MG PO DAILY, (Reported) Carbidopa/Levodopa 1 Each Tablet, 1 EACH PO TID, (Reported) Clopidogrel Bisulfate 75 Mg Tablet, 75 MG PO DAILY@1200, (Reported) Finasteride 5 Mg Tablet, 5 MG PO DAILY@1700, (Reported) Hydrocodone Bit/Acetaminophen 1 Tab Tab, 1 TAB PO Q4H PRN for PAIN-MODERATE Prescribed by: CJ JOYA on 01/16/19 0947 Ibuprofen 200 Mg Capsule, 600 MG PO TID PRN for PAIN-MODERATE Prescribed by: CJ JOYA on 01/16/19 0947 Irbesartan 300 Mg Tablet, 300 MG PO DAILY, (Reported) Lovastatin 20 Mg Tablet, 20 MG PO HS, (Reported) Magnesium Oxide 400 Mg Tablet, 400 MG PO HS, (Reported) Magnesium Oxide 250 Mg Tablet, 250 MG PO DAILY, (Reported) Metformin HCl 1,000 Mg Tablet, 1,000 MG PO BID, (Reported) Metoprolol Succinate 25 Mg Tab.er.24h, 25 MG PO DAILY@1200, (Reported) [place]-3/Dha/Epa/Dpa/Fish Oil 1 Each Capsule, 1 EACH PO BID, (Reported) Pantoprazole Sodium 40 Mg Tablet.dr, 40 MG PO DAILY@1200, (Reported) Ubidecarenone 100 Mg Capsule, 100 MG PO DAILY, (Reported) Vitamin B Complex 1 Each Tablet, 1 EACH PO DAILY, (Reported) Vitamin D3/Vitamin K2 1 Each Tab.rapdis, 1 EACH PO DAILY, (Reported) [electrolyte power] , 1 EACH PO BID, (Reported) Patient Home Medication List Home Medication List Reviewed: Yes Review of Systems Review of Systems Constitutional: no symptoms reported Respiratory: no symptoms reported Cardiovascular: no symptoms reported Skin: see HPI, other (wound to left lower abdomen with out significant erythema surrounding wound) Past Cnshyxw-Kycmps-Aivdmd Hx Past Med/Social Hx: Reviewed Nursing Past Med/Soc Hx Patient Social History Alcohol Use: Denies Use Recreational Drug Use: No 2nd Hand Smoke Exposure: No Recent Foreign Travel: No Contact w/Someone Who Travel: No Recent Infectious Disease Expo: No Recent Hopitalizations: No Immunizations Up To Date Date of Pneumonia Vaccine: Aug 28, 2011 Date of Influenza Vaccine: Jun 18, 2016 Seasonal Allergies Seasonal Allergies: No Past Medical History Surgeries: Yes (BACK, FATTY TUMOR REMOVED FROM ARM BABY) Respiratory: Yes Sleep Apnea Currently Using CPAP: Yes Cardiac: Yes High Cholesterol, Hypertension Neurological: No (tremors) Reproductive Disorders: No Sexually Transmitted Disease: No HIV/AIDS: No Genitourinary: Yes Benign Prostatic Hyperpl Gastrointestinal: No (abd wall mass) Gastroesophageal Reflux Musculoskeletal: No Endocrine: Yes Diabetes, Non-Insulin dep HEENT: Yes Macular Degeneration Loss of Vision: Bilateral Hearing Impairment: Hard of Hearing Cancer: No Psychosocial: No Integumentary: No Blood Disorders: No Adverse Reaction/Blood Tranf: No Family Medical History Reviewed Nursing Family Hx Arthritis Cardiovascular disease Cataracts Colon cancer Completed stroke Diabetes mellitus Hypertension Myocardial infarction Visual disorder Heart Disease, Hypertension Physical Exam Vital Signs Vital Signs - First Documented 02/02/19 14:25 Temp 97.6 Pulse 67 Resp 18 B/P (MAP) 163/82 (109) Pulse Ox 98 O2 Delivery Room Air Capillary Refill : Less Than 3 Seconds Height, Weight, BMI Height: 5'7.00" Weight: 227lbs. 0.0oz. 102.931188zz; 35.6 BMI Method:Stated General Appearance: No Apparent Distress, WD/WN Respiratory: Lungs Clear, Normal Breath Sounds Cardiovascular: Regular Rate, Rhythm, No Murmur Skin: Warm/Dry, Other (wound to left lower abdomen with wound VAC in place. Seal replaced by nursing and operating well now.) Progress/Results/Core Measures Suspected Sepsis Recent Fever Within 48 Hours: No Infection Criteria Present: None New/Unexplained Altered Menta: No Sepsis Screen: No Definite Risk SIRS Temperature:97.6 Pulse: 67 Respiratory Rate: 18 Blood Pressure 163 /82 Mean: 109 Results/Orders Vital Signs/I&O 02/02/19 14:25 Temp 97.6 Pulse 67 Resp 18 B/P (MAP) 163/82 (109) Pulse Ox 98 O2 Delivery Room Air Capillary Refill : Less Than 3 Seconds Blood Pressure Mean: 109 Progress Note : Progress Note Seen and evaluated. Nursing replaced wound VAC outer seal and drain. Wound VAC working appropriately now. Discharge home with return precautions. She verbalized understanding instructions and agreement with plan. Dr. Ramos not ified. Patient to see wound care tomorrow. Departure Impression Primary Impression: Encounter for management of wound VAC Disposition: 01 HOME, SELF-CARE Condition: Improved Departure-Patient Inst. Decision time for Depature: 15:18 Referrals: CJ JOYA MD (PCP/Family) Primary Care Physician Patient Instructions: Wound Care (DC) Add. Discharge Instructions: All discharge instructions reviewed with patient and/or family. Voiced understanding. Follow-up with wound care tomorrow as previously scheduled. Return for other concerns as needed AUSTIN CORDOBA MD February 02, 2019 15:19
[2019-02-02 15:20] VITALS: BP 158/80
== END 2019-02-02 15:24 | disposition home or self-care (01) ==
LOC: EDUNIT# 14:10 → ER 14:11
DX: T81.89XA Other complications of procedures, not elsewhere classified, initial encounter (principal); G47.30 Sleep apnea, unspecified; E78.00 Pure hypercholesterolemia, unspecified; I10 Essential (primary) hypertension; K21.9 Gastro-esophageal reflux disease without esophagitis; E11.9 Type 2 diabetes mellitus without complications; Z82.49 Family history of ischemic heart disease and other diseases of the circulatory system; Z80.0 Family history of malignant neoplasm of digestive organs; Z87.448 Personal history of other diseases of urinary system; Z88.5 Allergy status to narcotic agent; Z79.02 Long term (current) use of antithrombotics/antiplatelets; Z79.84 Long term (current) use of oral hypoglycemic drugs; Z79.82 Long term (current) use of aspirin; Z87.19 Personal history of other diseases of the digestive system
CPT/HCPCS: 99282

== ENCOUNTER 2019-02-27 20:21 | Emergency (ER) | payer MEDICARE ==
[~2019-02-27] VITALS: Ht 170.2 cm; Wt 97.5 kg
--- OUTSIDE RECORDS SUMMARY | 2019-02-27 20:36 | XMS REPORT | CCD ---
Author Author [facility] Organization [facility] Address [address] [place] [address] Phone Care Team Providers Care Merchandise Team Manager Name Role Phone PP Unavailable CCM Unavailable Summary Purpose Interface Exchange Insurance Providers Payer name Policy type / Coverage type Covered alliance party ID Effective Begin Date Effective End Date WPS Medicare Part B Medicare Part B [id number] Unknown [facility] Medicare Part B [id number] Unknown Family history Nephew Diagnosis Age At [...] Unknown Retired 07/18/[address]: 569050850 Never smoker 07/18/[address]: 539323733 Never drinks alcohol 07/18/2011 Has the patient [...] 12/05/2016 Unknown Type 2 diabetes mellitus with diabetic polyneuropathy ICD-9: 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 ICD-10: E11.42 Active 04/03/2017 Unknown Infection following a procedure, other surgical site, initial encounter ICD-9: 998.59 ICD-10: T81.49XA Active 01/26/2019 Unknown Syncope and collapse ICD- 9: 780.2 ICD-10: R55 Active 01/26/2019 Unknown Urinary tract infection, site not specified ICD-9: 599.0 ICD-10: N39.0 Active 01/26/2019 Unknown Morbid (severe) obesity due to excess [...] ICD-9: 724.5 ICD-10: M54.9 Active 05/04/2014 Unknown Encounter for gynecological examination (general) (routine) [...] 12/05/2016 Active Type 2 diabetes mellitus with diabetic polyneuropathy ICD-9: 250.60 ICD-10: E11.42 04/03/2017 Active Infection following a procedure, other surgical site, initial encounter ICD-9: 998.59 ICD-10: T81.49XA 01/26/2019 Active Syncope and collapse ICD- 9: 780.2 ICD-10: R55 01/26/2019 Active Urinary tract infection, site not specified ICD-9: 599.0 ICD-10: N39.0 01/26/2019 Active Morbid (severe) obesity due to excess [...] unspecified ICD-9: 724.5 ICD-10: M54.9 05/04/2014 Active Encounter for gynecological examination (general) (routine) [...] Start Date Stop Date Status Fill Instructions Levaquin 500 mg tablet RxNorm: 143222 1 Tablet(s) PO daily 01/26/2019 02/01/2019 Inactive Voltaren 1 % topical gel RxNorm: 689478 4 Gram(s) TOP QID 01/13/2019 01/07/2020 Active [SAVINGS FOR NON-COVERED DRUGS -- BIN:[id number], PCN: ASPROD1, Group: XXXXX, ID# [id number], Questions: . THIS IS NOT INSURANCE.] finasteride 1 mg tablet RxNorm: 813556 1 Tablet(s) PO daily 10/28/2018 01/20/2020 Active irbesartan 300 mg tablet RxNorm: 162989 1 Tablet(s) PO daily 10/28/2018 01/20/2020 Active lovastatin 20 mg tablet RxNorm: 742675 1 Tablet(s) PO QHS 10/28/2018 01/20/2020 Active metformin 1,000 mg tablet RxNorm: 555049 1 Tablet(s) PO BID 10/28/2018 01/20/2020 Active Zachary Mahan U-300 Insulin 300 unit/mL (1.5 mL) subcutaneous pen RxNorm: 3393742 30 Unit(s) SQ daily 10/09/2018 01/07/2019 Inactive 90 day supply needle (disp) 31 gauge x 5/16" RxNorm: 1 Miscellaneous TID 02/10/2018 01/07/2019 Inactive finasteride 1 mg tablet RxNorm: 775974 1 Tablet(s) PO daily 12/25/2017 12/24/2017 Inactive D/C dutasteride finasteride 1 mg tablet RxNorm: 004182 1 Tablet(s) PO daily 12/25/2017 10/27/2018 Inactive D/C dutasteride Novolin R Regular U-100 Insulin 100 unit/mL injection solution RxNorm: 240956 10 Unit(s) Inj QAM 12 units at lunch and 10 units at supper 11/25/2017 09/22/2018 Inactive amoxicillin 500 mg capsule RxNorm: 725665 1 Capsule(s) PO QID 11/21/2017 11/30/2017 Inactive naproxen 500 mg tablet RxNorm: 429384 1 Tablet(s) PO BID 11/21/2017 12/04/2017 Inactive Novolin R Regular U-100 Insulin 100 unit/mL injection solution RxNorm: 192628 8 10 Unit(s) Inj QAM 12 units at lunch and 10 units at supper 11/21/2017 11/24/2017 Inactive Insulin Syringe 0.3 mL 29 X 5/16" RxNorm: 1 injection SQ TID 10/01/2017 01/07/2019 Inactive Voltaren 1 % topical gel RxNorm: 636847 4 Gram(s) TOP QID 09/27/2017 12/20/2018 Inactive [SAVINGS FOR NON-COVERED DRUGS -- BIN:[id number], PCN: ASPROD1, Group: XXXXX, ID# [id number], Questions: . THIS IS NOT INSURANCE.] Trueresult Blood Glucose System RxNorm: 1 test Miscellaneous QID insulin dependent diabetes 09/27/2017 09/21/2018 Inactive Protonix 40 mg tablet,delayed release RxNorm: 933825 1 Tablet(s) PO daily 09/27/2017 12/20/2018 Inactive Toujeo SoloStar U-300 Insulin 300 unit/mL (1.5 mL) subcutaneous pen RxNorm: 8134404 45 Unit(s) SQ daily 09/27/2017 10/08/2018 Inactive 90 day supply lovastatin 20 mg tablet RxNorm: 688601 1 Tablet(s) PO QHS 09/27/2017 10/27/2018 Inactive Insulin Syringe 0.3 mL 29 X 5/16" RxNorm: 1 injection SQ BID 09/27/2017 09/30/2017 Inactive irbesartan 300 mg tablet RxNorm: 784678 1 Tablet(s) PO daily 09/27/2017 10/27/2018 Inactive Novolin R 100 unit/mL injection solution RxNorm: 684853 8 Unit(s) Inj QAM 10 units at lunch and 8 units at supper 09/27/2017 11/20/2017 Inactive dutasteride 0.5 mg capsule RxNorm: 206003 1 Capsule(s) PO daily 09/27/2017 12/24/2017 Inactive metformin 1,000 mg tablet RxNorm: 376290 1 Tablet(s) PO BID 09/27/2017 10/27/2018 Inactive magnesium oxide 400 mg tablet RxNorm: 009878 1 Tablet(s) PO daily 09/27/2017 12/20/2018 Inactive Voltaren 1 % topical gel RxNorm: 770182 4 Gram(s) TOP QID 07/23/2017 09/26/2017 Inactive [SAVINGS FOR NON-COVERED DRUGS -- BIN:[id number], PCN: ASPROD1, Group: XXXXX, ID# [id number], Questions: . THIS IS NOT INSURANCE.] Bactrim DS 800 mg-160 mg tablet RxNorm: 444596 1 Tablet(s) PO BID 07/02/2017 07/08/2017 Inactive Kenalog 40 mg/mL suspension for injection RxNorm: 8854991 1 Milliliter(s) Inj 06/04/2017 06/04/2017 Inactive Efudex 5 % topical cream RxNorm: 840559 1 TOP BID 12/05/2016 12/14/2016 Inactive Avapro 300 mg tablet RxNorm: 778746 Tablet(s) TAKE 1 TABLET BY MOUTH ONCE DAILY. 09/21/2016 09/15/2017 Inactive Toujeo SoloStar 300 unit/mL (1.5 mL) subcutaneous insulin pen RxNorm: 7715311 45 Unit(s) SQ daily 09/21/2016 09/15/2017 Inactive 90 day supply Novolin R 100 unit/mL injection solution RxNorm: 197737 8 Unit(s) Inj QAM 10 units at lunch and 8 units at supper 09/21/2016 09/15/2017 Inactive metformin 1,000 mg tablet RxNorm: 081018 Tablet(s) TAKE 1 TABLET BY MOUTH TWICE DAILY AFTER MEALS 09/21/2016 09/15/2017 Inactive lovastatin 20 mg tablet RxNorm: 979951 Tablet(s) TAKE ONE TABLET BY MOUTH ONCE DAILY. 09/21/2016 09/15/2017 Inactive dutasteride 0.5 mg capsule RxNorm: 948862 1 Capsule(s) PO daily 09/21/2016 09/15/2017 Inactive Toujeo SoloStar 300 unit/mL (1.5 mL) subcutaneous insulin pen RxNorm: 5076883 45 Unit(s) SQ daily 06/27/2016 09/20/2016 Inactive Kenalog 40 mg/mL suspension for injection RxNorm: 4813347 1 Milliliter(s) Inj 06/21/2016 06/21/2016 Inactive Toujeo SoloStar 300 unit/mL (1.5 mL) subcutaneous insulin pen RxNorm: 1728274 40 Unit(s) SQ daily 05/24/2016 06/26/2016 Inactive Novolin R 100 unit/mL injection solution RxNorm: 332357 8 Unit(s) Inj QAM 10 units at lunch and 8 units at supper 05/24/2016 09/20/2016 Inactive Bactrim DS 800 mg-160 mg tablet RxNorm: 525115 1 Tablet(s) PO BID 10/03/2015 01/31/2016 Inactive dutasteride 0.5 mg capsule RxNorm: 924784 1 Capsule(s) PO daily 09/26/2015 09/19/2016 Inactive dutasteride 0.5 mg capsule RxNorm: 830197 1 Capsule(s) PO daily 09/26/2015 09/25/2015 Inactive Avodart 0.5 mg capsule RxNorm: 244057 1 Capsule(s) PO QPM 09/21/2015 09/25/2015 Inactive Avapro 300 mg tablet RxNorm: 279204 Tablet(s) TAKE 1 TABLET BY MOUTH ONCE DAILY. 09/21/2015 09/14/2016 Inactive Generic For:AVAPRO 300MG 08/26/2015 9:53:42 AM lovastatin 20 mg tablet RxNorm: 035327 1 Tablet(s) TAKE ONE TABLET BY MOUTH ONCE DAILY. 09/21/2015 09/20/2016 Inactive Generic For:*MEVACOR 20MG 10/06/2014 12:16:37 PM Novolin R 100 unit/mL injection solution RxNorm: 102498 5 Unit(s) Inj QAM 8 units at lunch and 5 units at supper 09/21/2015 05/23/2016 Inactive metformin 1,000 mg tablet RxNorm: 353288 Tablet(s) TAKE 1 TABLET BY MOUTH TWICE DAILY AFTER MEALS 09/21/2015 09/20/2016 Inactive Generic For:*GLUCOPHAGE 1000MG 10/18/2014 5:26:11 PM Toujeo SoloStar 300 unit/mL (1.5 mL) subcutaneous insulin pen RxNorm: 9684734 60 Unit(s) SQ daily 09/21/2015 05/23/2016 Inactive 3 month supply DX 250.02 also needs pen needles to use daily dx 250.02 Novolin R 100 unit/mL injection solution RxNorm: 352558 5 Unit(s) Inj QAM 8 units at lunch and 5 units at supper 09/07/2015 09/20/2015 Inactive lovastatin 20 mg tablet RxNorm: 195207 Tablet(s) TAKE ONE TABLET BY MOUTH ONCE DAILY. 09/07/2015 09/20/2015 Inactive Generic For:*MEVACOR 20MG 10/06/2014 12:16:37 PM metformin 1,000 mg tablet RxNorm: 004608 Tablet(s) TAKE 1 TABLET BY MOUTH TWICE DAILY AFTER MEALS 09/07/2015 09/20/2015 Inactive Generic For:*GLUCOPHAGE 1000MG 10/18/2014 5:26:11 PM Toujeo SoloStar 300 unit/mL (1.5 mL) subcutaneous insulin pen RxNorm: 8598423 60 Unit(s) SQ daily 09/07/2015 09/20/2015 Inactive 3 month supply DX 250.02 also needs pen needles to use daily dx 250.02 Avapro 300 mg tablet RxNorm: 683156 TAKE 1 TABLET BY MOUTH ONCE DAILY. 08/26/2015 09/20/2015 Inactive Generic For:AVAPRO 300MG 08/26/2015 9:53:42 AM Avodart 0.5 mg capsule RxNorm: 587661 1 Capsule(s) PO QPM 08/17/2015 09/20/2015 Inactive Novolin R 100 unit/mL injection solution RxNorm: 004169 5 Unit(s) Inj QAM 8 units at lunch and 5 units at supper 08/17/2015 09/06/2015 Inactive Trueresult Blood Glucose System RxNorm: 1 test Miscellaneous QID insulin dependent diabetes 08/17/2015 08/10/2016 Inactive Avodart 0.5 mg capsule RxNorm: 774145 1 Capsule(s) PO QPM 08/14/2015 08/16/2015 Inactive Novolin R 100 unit/mL injection solution RxNorm: 041850 5 Unit(s) Inj TID with meals 07/20/2015 08/16/2015 Inactive Toujeo SoloStar 300 unit/mL (1.5 mL) subcutaneous insulin pen RxNorm: 5496766 60 Unit(s) SQ daily 07/20/2015 09/06/2015 Inactive one month supply DX 250.02 also needs pen needles to use daily dx 250.02 Bactrim DS 800 mg-160 mg tablet RxNorm: 267995 1 Tablet(s) PO BID 05/09/2015 05/15/2015 Inactive Bactrim DS 800 mg-160 mg tablet RxNorm: 860598 1 Tablet(s) PO BID 05/09/2015 05/08/2015 Inactive Bactrim DS 800 mg-160 mg tablet RxNorm: 148434 1 Tablet(s) PO BID 05/09/2015 05/08/2015 Inactive Toujeo SoloStar 300 unit/mL (1.5 mL) subcutaneous insulin pen RxNorm: 2031814 45u qdx3 days then 50u qdx 5 days then if fsbs >180 55u qd Unit(s) SQ daily 05/02/2015 07/19/2015 Inactive one month supply DX 250.02 also needs pen needles to use daily dx 250.02 Toujeo SoloStar 300 unit/mL (1.5 mL) subcutaneous insulin pen RxNorm: 4305514 45u qdx3 days then 50u qdx 5 days then if fsbs >180 55u qd Unit(s) SQ daily 05/02/2015 05/01/2015 Inactive one month supply DX 250.02 also needs pen needles to use daily dx 250.02 Belviq 10 mg tablet RxNorm: 8700360 1 Tablet(s) PO BID 04/20/2015 09/20/2015 Inactive Insulin Syringe 0.3 mL 29 X 5/16" RxNorm: 1 Miscellaneous BID 03/24/2015 04/16/2016 Inactive Lantus 100 unit/mL subcutaneous solution RxNorm: 441151 30 Unit(s) SQ BID 02/14/2015 05/01/2015 Inactive pt not ready for refill yet, when he is, please fill 25units bid Lantus 100 unit/mL subcutaneous solution RxNorm: 680515 28 Unit(s) SQ BID 11/11/2014 02/13/2015 Inactive pt not ready for refill yet, when he is, please fill 25units bid [SAVINGS FOR NON-COVERED DRUGS -- BIN:[id number], PCN: ASPROD1, Group: XXXXX, ID# [id number], Questions: . THIS IS NOT INSURANCE.] Voltaren 1 % topical gel RxNorm: 661286 4 Gram(s) TOP QID 11/11/2014 03/10/2015 Inactive [SAVINGS FOR NON-COVERED DRUGS -- BIN:[id number], PCN: ASPROD1, Group: XXXXX, ID# [id number], Questions: . THIS IS NOT INSURANCE.] metformin 1,000 mg tablet RxNorm: 242177 TAKE 1 TABLET BY MOUTH TWICE DAILY AFTER MEALS 10/19/2014 09/06/2015 Inactive Generic For:*GLUCOPHAGE 1000MG 10/18/2014 5:26:11 PM metformin 1,000 mg tablet RxNorm: 637013 Tablet(s) TAKE 1 TABLET BY MOUTH TWICE DAILY AFTER MEALS 10/18/2014 10/18/2014 Inactive Generic For:*GLUCOPHAGE 1000MG 04/16/2014 9:02:30 AM lovastatin 20 mg tablet RxNorm: 464862 TAKE ONE TABLET BY MOUTH ONCE DAILY. 10/07/2014 09/06/2015 Inactive Generic For:*MEVACOR 20MG 10/06/2014 12:16:37 PM lovastatin 20 mg tablet RxNorm: 897635 1 Tablet(s) PO daily TAKE ONE (1) TABLET BY MOUTH DAILY 10/06/2014 10/06/2014 Inactive Generic For:MEVACOR 20 MG TABLET Generic For:MEVACOR 20 MG TABLET 08/14/2013 8:06:44 AM Carafate 1 gram tablet RxNorm: 719126 1 Tablet(s) PO QID dissolve in 10mL of fluid, drink liquid carafate four times daily before meals and before bed 10/04/2014 11/10/2014 Inactive may dispense generic Avapro 300 mg tablet RxNorm: 172645 TAKE 1 TABLET BY MOUTH ONCE DAILY. 08/26/2014 08/20/2015 Inactive Generic For:AVAPRO 300MG 08/26/2014 9:03:29 AM Avodart 0.5 mg capsule RxNorm: 034964 1 Capsule(s) PO QPM 08/02/2014 07/27/2015 Inactive meloxicam 15 mg tablet RxNorm: 635217 TAKE 1 TABLET BY MOUTH ONCE DAILY. 06/11/2014 11/10/2014 Inactive Generic For:MOBIC 15MG 06/11/2014 9:05:37 AM Kenalog 40 mg/mL suspension for injection RxNorm: 0038154 1 Milliliter(s) Inj 05/04/2014 05/04/2014 Inactive Lantus Solostar 100 unit/mL (3 mL) subcutaneous insulin pen RxNorm: 584033 25 Unit(s) SQ BID 04/19/2014 02/13/2015 Inactive Lantus 100 unit/mL subcutaneous solution RxNorm: 571752 25 Unit(s) SQ BID break up lantus to two shots daily of 22 units each shot 04/19/2014 11/10/2014 Inactive pt not ready for refill yet, when he is, please fill 25units bid metformin 1,000 mg tablet RxNorm: 822124 TAKE 1 TABLET BY MOUTH TWICE DAILY AFTER MEALS 04/16/2014 10/12/2014 Inactive Generic For:*GLUCOPHAGE 1000MG 04/16/2014 9:02:30 AM Insulin Syringe 0.3 mL 29 X 5/16" RxNorm: 1 Miscellaneous BID 03/15/2014 03/23/2015 Inactive Insulin Syringe 0.3 mL 29 X 5/16" RxNorm: 1 Miscellaneous BID 03/15/2014 03/14/2014 Inactive meloxicam 15 mg tablet RxNorm: 198091 TAKE 1 TABLET EVERY DAY 03/15/2014 06/10/2014 Inactive Generic For:MOBIC 15MG 03/15/2014 9:06:35 AM Lantus 100 unit/mL subcutaneous solution RxNorm: 808630 22 Unit(s) SQ BID break up lantus to two shots daily of 22 units each shot 01/14/2014 04/18/2014 Inactive metformin 1,000 mg tablet RxNorm: 514572 Tablet(s) PO TAKE 1 TABLET BY MOUTH TWICE DAILY AFTER MEALS 01/07/2014 04/15/2014 Inactive Generic For:*GLUCOPHAGE 1000MG Lantus 100 unit/mL subcutaneous solution RxNorm: 784514 25 Unit(s) SQ BID break up lantus to two shots daily of 25 units each shot 09/30/2013 09/29/2013 Inactive Lantus 100 unit/mL subcutaneous solution RxNorm: 057430 25 Unit(s) SQ BID break up lantus to two shots daily of 25 units each shot 09/30/2013 01/13/2014 Inactive metformin 1,000 mg tablet RxNorm: 926782 1 Tablet(s) PO BID TAKE 1 TABLET BY MOUTH TWICE DAILY AFTER MEALS 09/30/2013 12/28/2013 Inactive Generic For:GLUCOPHAGE 1000MG TAB Generic For:GLUCOPHAGE 1000MG TAB Avapro 300 mg tablet RxNorm: 859964 Tablet(s) PO TAKE ONE (1) TABLET BY MOUTH DAILY 08/28/2013 08/25/2014 Inactive Generic For:*AVAPRO 300MG TAB Generic For:*AVAPRO 300MG TAB 08/28/2013 8:53:42 AM lovastatin 20 mg tablet RxNorm: 719759 Tablet(s) PO TAKE ONE (1) TABLET BY MOUTH DAILY 08/14/2013 10/05/2014 Inactive Generic For:MEVACOR 20 MG TABLET Generic For:MEVACOR 20 MG TABLET 08/14/2013 8:06:44 AM metformin 1,000 mg tablet RxNorm: 400746 Tablet(s) PO TAKE 1 TABLET BY MOUTH TWICE DAILY AFTER MEALS 07/16/2013 09/29/2013 Inactive Generic For:GLUCOPHAGE 1000MG TAB Generic For:GLUCOPHAGE 1000MG TAB Influenza Virus Vaccine 0.5 mL RxNorm: IM 07/01/2013 07/01/2013 Inactive Contour Test Strips RxNorm: strip miscellaneous USE TO TEST BLOOD SUGAR THREE TIMES DAILY DIRECTED 06/29/2013 03/14/2014 Inactive metformin 1,000 mg tablet RxNorm: 765388 Tablet(s) PO TAKE 1 TABLET BY MOUTH TWICE DAILY AFTER MEALS 04/14/2013 07/15/2013 Inactive Generic For:GLUCOPHAGE 1000MG TAB meloxicam 15 mg tablet RxNorm: 532621 Tablet(s) PO TAKE ONE TABLET BY MOUTH EVERY DAY 03/21/2013 03/14/2014 Inactive Generic For:MOBIC 15MG TAB 03/19/2013 8:10:41 AM Lantus 100 unit/mL subcutaneous solution RxNorm: 517355 25 Unit(s) SQ BID break up lantus to two shots daily of 25 units each shot 03/04/2013 06/01/2013 Inactive Insulin Syringe 0.3 mL 29 X 5/16" RxNorm: 1 Unit Dose Miscellaneous BID 02/04/2013 01/07/2019 Inactive Lantus 100 unit/mL Sub-Q RxNorm: 477530 20 Unit(s) SQ BID break up lantus to two shots daily of 20units each shot 02/04/2013 03/03/2013 Inactive topiramate 25 mg tablet RxNorm: 375350 1 Tablet(s) PO daily 02/04/2013 04/08/2013 Inactive metformin 1,000 mg tablet RxNorm: 441446 Tablet(s) PO TAKE 1 TABLET BY MOUTH TWICE DAILY AFTER MEALS 01/15/2013 04/13/2013 Inactive Generic For:GLUCOPHAGE 1000MG TAB Lantus 100 unit/mL Sub-Q RxNorm: 780899 30 Unit(s) SQ QPM 12/03/2012 01/01/2013 Inactive Kenalog 40 mg/mL Susp for Injection RxNorm: 0254569 1 Milliliter(s) Inj 09/25/2012 09/25/2012 Inactive Lantus 100 unit/mL Sub-Q RxNorm: 194633 25 Unit(s) SQ QPM 09/12/2012 10/11/2012 Inactive Avapro 300 mg tablet RxNorm: 819997 Tablet(s) PO TAKE ONE (1) TABLET BY MOUTH DAILY 09/03/2012 09/02/2012 Inactive Generic For:AVAPRO 300MG TAB Avapro 300 mg tablet RxNorm: 041619 Tablet(s) PO TAKE ONE (1) TABLET BY MOUTH DAILY 09/03/2012 08/27/2013 Inactive Generic For:AVAPRO 300MG TAB Lantus 100 unit/mL Sub-Q RxNorm: 830167 20 Unit(s) SQ QPM 08/27/2012 09/11/2012 Inactive Avapro 300 mg tablet RxNorm: 694264 1 Tablet(s) PO daily 08/27/2012 09/02/2012 Inactive Lantus 100 unit/mL Sub-Q RxNorm: 436342 15 Unit(s) SQ QPM 08/07/2012 08/26/2012 Inactive metformin 1,000 mg tablet RxNorm: 294599 Tablet(s) PO 07/18/2012 01/14/2013 Inactive TAKE 1 TABLET BY MOUTH TWICE DAILY AFTER MEALS;Generic For:GLUCOPHAGE 1,000 MG TABLET Lantus 100 unit/mL Sub-Q RxNorm: 817382 13 Unit(s) SQ QPM 06/25/2012 07/24/2012 Inactive lovastatin 20 mg tablet RxNorm: 154663 Tablet(s) PO 06/20/2012 07/14/2013 Inactive TAKE 2 TABLETS BY MOUTH AT BEDTIME;Generic For:MEVACOR 20 MG TABLET Pneumovax 23 25 mcg/0.5 mL Injection RxNorm: 277951 Milliliter(s) Inj 06/04/2012 06/04/2012 Inactive Influenza Virus Vaccine 0.5 mL RxNorm: IM 06/04/2012 06/04/2012 Inactive Insulin Syringe 0.3 mL 29 X 5/16" RxNorm: 1 Unit Dose Miscellaneous daily 06/03/2012 12/29/2012 Inactive lovastatin 20 mg tablet RxNorm: 689230 Tablet(s) PO 05/14/2012 06/19/2012 Inactive TAKE 2 TABLETS BY MOUTH AT BEDTIME;Generic For:MEVACOR 20 MG TABLET Contour Test Strips RxNorm: Miscellaneous TID 04/25/2012 05/24/2012 Inactive lovastatin 20 mg tablet RxNorm: 262740 Tablet(s) PO 04/16/2012 05/13/2012 Inactive TAKE 2 TABLETS BY MOUTH AT BEDTIME;Generic For:MEVACOR 20 MG TABLET metformin 1,000 mg tablet RxNorm: 821833 Tablet(s) PO 04/16/2012 07/17/2012 Inactive TAKE 1 TABLET BY MOUTH TWICE DAILY AFTER MEALS;Generic For:GLUCOPHAGE 1,000 MG TABLET citalopram 20 mg tablet RxNorm: 516376 1 Tablet(s) PO daily 04/09/2012 09/23/2012 Inactive meloxicam 15 mg Tab RxNorm: 661826 1 Tablet(s) PO daily 2012 03/04/2012 Inactive meloxicam 15 mg Tab RxNorm: 021405 Tablet(s) PO 2012 07/19/2015 Inactive TAKE 1 TABLET BY MOUTH DAILY;Generic For:MOBIC 15MG TAB WC meloxicam 15 mg tablet RxNorm: 853965 1 Tablet(s) PO daily 2012 03/04/2012 Inactive Rocephin 500 mg Solution for Injection RxNorm: 9692179 Inj 03/04/2012 03/04/2012 Inactive sulfamethoxazole 800 mg-trimethoprim 160 mg tablet RxNorm: 723019 1 Tablet(s) PO BID 03/04/2012 03/13/2012 Inactive metoprolol succinate ER 25 mg 24 hr Tab RxNorm: 132532 1 Tablet(s) PO daily 12/03/2011 11/16/2014 Inactive Byetta 10 mcg/0.04 mL per dose Sub-Q Pen Injector RxNorm: 693993 10 Microgram(s) SQ BID 10 meq twice daily before the two largest meals of the day. 12/03/2011 06/03/2012 Inactive Plavix 75 mg Tab RxNorm: 376453 1 Tablet(s) PO daily 12/03/2011 11/16/2014 Inactive lovastatin 20 mg tablet RxNorm: 402792 2 Tablet(s) PO daily 11/12/2011 04/15/2012 Inactive TAKE 2 TABLETS BY MOUTH DAILY AT BEDTIME;Generic For:MEVACOR 20 MG TABLET N O T I C E Last dispense quantity was less than original quantity written Avapro 300 mg tablet RxNorm: 532757 1 Tablet(s) PO daily 08/28/2011 08/21/2012 Inactive metformin 1,000 mg Tab RxNorm: 623046 1 Tablet(s) PO BID 07/09/2011 07/02/2012 Inactive Victoza 0.6 mg/0.1 mL (18 mg/3 mL) Sub-Q Pen Injector RxNorm: 837778 1.8 Milligram(s) SQ daily 06/20/2011 03/04/2012 Inactive Fish Oil 1,000 mg capsule RxNorm: 1 Capsule(s) PO BID No Start Date Active Ocuvite oral RxNorm: 738516 oral No Start Date Active aspirin 81 mg Cap, Delayed Release RxNorm: 881128 1 Capsule(s) PO daily No Start Date Active Sinemet 25 mg-100 mg tablet RxNorm: 381780 1 Tablet(s) PO TID No Start Date Active multivitamin tablet RxNorm: oral No Start Date Active B Complex 1 oral RxNorm: 47236 oral No Start Date Active Protonix 40 mg tablet,delayed release RxNorm: 493175 1 Tablet(s) PO daily No Start Date 09/26/2017 Inactive Bydureon 2 mg SubQ Susp RxNorm: 9983952 1 SQ QW No Start Date 06/03/2012 Inactive Avapro 150 mg Tab RxNorm: 875092 1 Tablet(s) PO daily No Start Date 03/04/2012 Inactive Travatan Z 0.004 % Eye Drops RxNorm: 643807 1 Drop(s) OPH daily No Start Date 06/14/2014 Inactive Farxiga 5 mg tablet RxNorm: 9894327 1 Tablet(s) PO QAM No Start Date 01/07/2019 Inactive potassium gluconate 595 mg (99 mg) tablet RxNorm: 553263 1 Tablet(s) PO daily No Start Date 01/07/2019 Inactive metformin 1,000 mg tablet RxNorm: 755936 1 Tablet(s) PO BID No Start Date 03/04/2012 Inactive magnesium oxide 400 mg tablet RxNorm: 540547 Tablet(s) PO No Start Date 09/26/2017 Inactive Ativan 0.5 mg tablet RxNorm: 857471 1 Tablet(s) PO No Start Date 10/09/2013 Inactive 1 30 min prior to procedure meloxicam 15 mg Tab RxNorm: 478512 1 Tablet(s) PO daily No Start Date 03/04/2012 Inactive lovastatin 20 mg Tab RxNorm: 565453 2 Tablet(s) PO QHS No Start Date 11/12/2011 Inactive Pen Needle 31 x 3/16" RxNorm: Miscellaneous BID Pen [place] 31g/8mm BD to use for Byetta injection BID No Start Date 06/03/2012 Inactive Medication Administered Medication Codes Instructions Start Date Status Kenalog 40 mg/mL suspension for injection RxNorm: 1195692 1Milliliter 06/04/2017 No longer Active Kenalog 40 mg/mL suspension for injection RxNorm: 0511635 1Milliliter 06/21/2016 No longer Active Kenalog 40 mg/mL suspension for injection RxNorm: 9821604 1Milliliter 05/04/2014 No longer Active Influenza Virus Vaccine 0.5 mL RxNorm: 07/01/2013 No longer Active Kenalog 40 mg/mL Susp for Injection RxNorm: 3737862 1Milliliter 09/25/2012 No longer Active Influenza Virus Vaccine 0.5 mL RxNorm: 06/04/2012 No longer Active Pneumovax 23 25 mcg/0.5 mL Injection RxNorm: 830215 Milliliter 06/04/2012 No longer Active Rocephin 500 mg Solution for Injection RxNorm: 7462597 03/04/2012 No longer Active Immunizations Vaccine Codes [...] Essential (primary) hypertension ICD-10: I10 ICD-9: 401.1 02/10/2019 Type 2 diabetes mellitus with diabetic polyneuropathy ICD-10: E11.42 ICD-9: 250.60 02/10/2019 Syncope and collapse ICD-10: R55 ICD-9: 780.2 01/26/2019 Infection following a procedure, other surgical site, initial encounter ICD-10: T81.49XA ICD-9: 998.59 01/26/2019 Urinary tract infection, site not specified ICD-10: N39.0 ICD-9: 599.0 01/26/2019 Type 2 diabetes mellitus without complications ICD-10: [...] back pain ICD-10: M54.5 ICD-9: 724.2 07/07/2018 Encounter for immunization ICD-10: Z23 ICD-9: V04.81 [...] 331.83 02/08/2014 Nightmares ICD-9: 307.47 02/08/2014 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 10/14/2013 Thumb pain ICD-9: 729.5 [...] For Visit Effective Dates Notes diabetes mellitus 02/10/2019 Hospital Follow Up 01/26/2019 diabetes mellitus 01/08/2019 diabetes mellitus 10/09/2018 diabetes [...] Ord30 C/HDL 3.1 Ratio 01/07/2019 Comp Metabolic Fix770 NA 142 mEq/L 01/07/2019 Comp Metabolic Njj171 K 4.3 mEq/L 01/07/2019 Comp Metabolic Imv309 CL 104 mEq/L 01/07/2019 Comp Metabolic Jyj011 CO2 28.0 mEq/L 01/07/2019 Comp Metabolic Hdz409 ANION GAP 14 01/07/2019 Comp Metabolic Cje993 GLUCOSE 118 mg/dL 01/07/2019 Comp Metabolic Ptt732 Creat 1.0 mg/dL 01/07/2019 Comp Metabolic Rqo678 eGFR 82 ml/min/1.73m2 01/07/2019 Comp Metabolic Dwb777 BUN 22 mg/dL 01/07/2019 Comp Metabolic Blq412 B/C Ratio 23.2 Ratio 01/07/2019 Comp Metabolic Ggj445 CALCIUM 9.9 mg/dL 01/07/2019 Comp Metabolic Irx687 ALK PHOS 41 U/L 01/07/2019 Comp Metabolic Abe149 AST(SGOT) 23 U/L 01/07/2019 Comp Metabolic Mjx889 ALT(SGPT) 24 U/L 01/07/2019 Comp Metabolic Hfv963 BILI T 0.8 mg/dL 01/07/2019 Comp Metabolic Khh278 ALBUMIN 4.3 g/dL 01/07/2019 Comp Metabolic Krn514 TPRO 6.7 g/dL 01/07/2019 Comp Metabolic Pci327 GLOB 2.4 g/dL 01/07/2019 Comp Metabolic Tbo931 A/G Ratio 1.8 Ratio 01/07/2019 Comp Metabolic Tae586 Osmo 288 mOsmo 01/07/2019 Tsh Ord6 TSH (3rd IS) 3.27 uIU/mL 01/07/2019 %Hba1C Epe325 % HbA1c 99285- 6 5.9 % 01/07/2019 %Hba1C Tsj131 Gluc Ave 123 mg/dL 01/07/2019 Cbc With [...] 31.2 pg 01/07/2019 Cbc With Differential Ord2 [place]% 11.5 % 01/07/2019 Cbc With Differential Ord2 [...] 1.96 K/ul 01/07/2019 Cbc With Differential Ord2 [place] ABS# 0.7 K/ul 01/07/2019 Cbc With Differential [...] 30.4 pg 10/08/2018 Cbc With Differential Ord2 [place]% 11.1 % 10/08/2018 Cbc With Differential Ord2 [...] 1.72 K/ul 10/08/2018 Cbc With Differential Ord2 [place] ABS# 0.6 K/ul 10/08/2018 Cbc With Differential Ord2 Eos ABS# 0.2 K/ul 10/08/2018 Cbc With Differential Ord2 Baso ABS# 0.0 K/ul 10/08/2018 %Hba1C Abm717 % HbA1c 69529- 6 7.2 % 10/08/2018 %Hba1C Zea031 Gluc Ave 160 mg/dL 10/08/2018 Comp Metabolic Xsv966 NA 143 mEq/L 10/08/2018 Comp Metabolic Qep581 K 4.4 mEq/L 10/08/2018 Comp Metabolic Xpx936 CL 105 mEq/L 10/08/2018 Comp Metabolic Nyp400 CO2 28.0 mEq/L 10/08/2018 Comp Metabolic Deu315 ANION GAP 14 10/08/2018 Comp Metabolic Wri512 GLUCOSE 127 mg/dL 10/08/2018 Comp Metabolic Zsy786 Creat 1.1 mg/dL 10/08/2018 Comp Metabolic Wwi938 eGFR 72 ml/min/1.73m2 10/08/2018 Comp Metabolic Esg907 BUN 18 mg/dL 10/08/2018 Comp Metabolic Gjf341 B/C Ratio 17.0 Ratio 10/08/2018 Comp Metabolic Pxm426 CALCIUM 9.8 mg/dL 10/08/2018 Comp Metabolic Aia389 ALK PHOS 50 U/L 10/08/2018 Comp Metabolic Pxe859 AST(SGOT) 37 U/L 10/08/2018 Comp Metabolic Lwt434 ALT(SGPT) 37 U/L 10/08/2018 Comp Metabolic Fwy435 BILI T 0.8 mg/dL 10/08/2018 Comp Metabolic Umc666 ALBUMIN 4.4 g/dL 10/08/2018 Comp Metabolic Wsb480 TPRO 7.1 g/dL 10/08/2018 Comp Metabolic Svo554 GLOB 2.7 g/dL 10/08/2018 Comp Metabolic Ntj915 A/G Ratio 1.6 Ratio 10/08/2018 Comp Metabolic Ifb014 Osmo 288 mOsmo 10/08/2018 Lipid Ord30 CHOL 150 mg/dL 10/08/2018 Lipid Ord30 HDL 45.0 mg/dl 10/08/2018 Lipid Ord30 TRIG 190 mg/dL 10/08/2018 Lipid Ord30 LDL 67 mg/dL 10/08/2018 Lipid Ord30 C/HDL 3.3 Ratio 10/08/2018 Tsh Ord6 TSH (3rd IS) 1.80 uIU/mL 10/08/2018 %Hba1C Qnf125 % HbA1c 29523- 6 7.6 % 07/04/2018 %Hba1C Sju640 Gluc Ave 171 mg/dL 07/04/2018 Comp Metabolic Pti758 NA 140 mEq/L 07/04/2018 Comp Metabolic Lyf366 K 4.5 mEq/L 07/04/2018 Comp Metabolic Rgc871 CL 104 mEq/L 07/04/2018 Comp Metabolic Bql410 CO2 28.0 mEq/L 07/04/2018 Comp Metabolic Zmx457 ANION GAP 13 07/04/2018 Comp Metabolic Lxz815 GLUCOSE 211 mg/dL 07/04/2018 Comp Metabolic Nze984 Creat 0.9 mg/dL 07/04/2018 Comp Metabolic Fmk443 eGFR 85 ml/min/1.73m2 07/04/2018 Comp Metabolic Bhn202 BUN 20 mg/dL 07/04/2018 Comp Metabolic Brb331 B/C Ratio 21.7 Ratio 07/04/2018 Comp Metabolic Bvu615 CALCIUM 9.5 mg/dL 07/04/2018 Comp Metabolic Roy959 ALK PHOS 46 U/L 07/04/2018 Comp Metabolic Qdb969 AST(SGOT) 26 U/L 07/04/2018 Comp Metabolic Xmc241 ALT(SGPT) 29 U/L 07/04/2018 Comp Metabolic Bps930 BILI T 0.6 mg/dL 07/04/2018 Comp Metabolic Obf358 ALBUMIN 4.2 g/dL 07/04/2018 Comp Metabolic Iuk540 TPRO 6.8 g/dL 07/04/2018 Comp Metabolic Pgs757 GLOB 2.6 g/dL 07/04/2018 Comp Metabolic Ybk295 A/G Ratio 1.6 Ratio 07/04/2018 Comp Metabolic Its026 Osmo 288 mOsmo 07/04/2018 Tsh Ord6 TSH [...] 31.0 pg 07/04/2018 Cbc With Differential Ord2 [place]% 12.9 % 07/04/2018 Cbc With Differential Ord2 [...] 1.86 K/ul 07/04/2018 Cbc With Differential Ord2 [place] ABS# 0.9 K/ul 07/04/2018 Cbc With Differential Ord2 Eos ABS# 0.3 K/ul 07/04/2018 Cbc With Differential Ord2 Baso ABS# 0.1 K/ul 07/04/2018 Lipid Ord30 CHOL 159 mg/dL 07/04/2018 Lipid Ord30 HDL 45.0 mg/dl 07/04/2018 Lipid Ord30 TRIG 244 mg/dL 07/04/2018 Lipid Ord30 LDL 65 mg/dL 07/04/2018 Lipid Ord30 C/HDL 3.5 Ratio 07/04/2018 %Hba1C Zoq985 % HbA1c 53613- 6 8.0 % 03/06/2018 %Hba1C Oxz187 Gluc Ave 183 mg/dL 03/06/2018 Lipid Ord30 [...] 30.2 pg 03/04/2018 Cbc With Differential Ord2 [place]% 12.2 % 03/04/2018 Cbc With Differential Ord2 [...] 1.93 K/ul 03/04/2018 Cbc With Differential Ord2 [place] ABS# 0.8 K/ul 03/04/2018 Cbc With Differential Ord2 Eos ABS# 0.2 K/ul 03/04/2018 Cbc With Differential Ord2 Baso ABS# 0.1 K/ul 03/04/2018 Comp Metabolic Gow700 NA 139 mEq/L 03/04/2018 Comp Metabolic Rqc846 K 4.5 mEq/L 03/04/2018 Comp Metabolic Rde970 CL 102 mEq/L 03/04/2018 Comp Metabolic Ojj055 CO2 28.0 mEq/L 03/04/2018 Comp Metabolic Nbf859 ANION GAP 14 03/04/2018 Comp Metabolic Ytp833 GLUCOSE 201 mg/dL 03/04/2018 Comp Metabolic Gnj776 Creat 1.0 mg/dL 03/04/2018 Comp Metabolic Gti561 eGFR 78 ml/min/1.73m2 03/04/2018 Comp Metabolic Ayj258 BUN 18 mg/dL 03/04/2018 Comp Metabolic Pji158 B/C Ratio 18.0 Ratio 03/04/2018 Comp Metabolic Qqq426 CALCIUM 9.4 mg/dL 03/04/2018 Comp Metabolic Ito022 ALK PHOS 40 U/L 03/04/2018 Comp Metabolic Koz499 AST(SGOT) 21 U/L 03/04/2018 Comp Metabolic Pbc854 ALT(SGPT) 27 U/L 03/04/2018 Comp Metabolic Zck070 BILI T 0.6 mg/dL 03/04/2018 Comp Metabolic Dqn504 ALBUMIN 4.1 g/dL 03/04/2018 Comp Metabolic Opy907 TPRO 6.7 g/dL 03/04/2018 Comp Metabolic Wyf800 GLOB 2.7 g/dL 03/04/2018 Comp Metabolic Boj628 A/G Ratio 1.5 Ratio 03/04/2018 Comp Metabolic Zqc205 Osmo 285 mOsmo 03/04/2018 Lipid Ord30 CHOL 171 mg/dL 11/20/2017 Lipid Ord30 HDL 52.0 mg/dl 11/20/2017 Lipid Ord30 TRIG 248 mg/dL 11/20/2017 Lipid Ord30 LDL 69 mg/dL 11/20/2017 Lipid Ord30 C/HDL 3.3 Ratio 11/20/2017 %Hba1C Dou078 % HbA1c 73231- 6 7.7 % 11/20/2017 %Hba1C Kvj085 Gluc Ave 174 mg/dL 11/20/2017 Comp Metabolic Vfa244 NA 140 mEq/L 11/20/2017 Comp Metabolic Iym666 K 4.3 mEq/L 11/20/2017 Comp Metabolic Yqd226 CL 103 mEq/L 11/20/2017 Comp Metabolic Mbj270 CO2 27.0 mEq/L 11/20/2017 Comp Metabolic Eok600 ANION GAP 14 11/20/2017 Comp Metabolic Tad419 GLUCOSE 151 mg/dL 11/20/2017 Comp Metabolic Kyf468 Creat 0.9 mg/dL 11/20/2017 Comp Metabolic Ann176 eGFR 87 ml/min/1.73m2 11/20/2017 Comp Metabolic Vje009 BUN 25 mg/dL 11/20/2017 Comp Metabolic Zxy688 B/C Ratio 27.5 Ratio 11/20/2017 Comp Metabolic Qpk267 CALCIUM 9.7 mg/dL 11/20/2017 Comp Metabolic Exk396 ALK PHOS 49 U/L 11/20/2017 Comp Metabolic Flx937 AST(SGOT) 25 U/L 11/20/2017 Comp Metabolic Fsq467 ALT(SGPT) 24 U/L 11/20/2017 Comp Metabolic Bba213 BILI T 0.6 mg/dL 11/20/2017 Comp Metabolic Vxd696 ALBUMIN 4.2 g/dL 11/20/2017 Comp Metabolic Uwn472 TPRO 6.6 g/dL 11/20/2017 Comp Metabolic Snn184 GLOB 2.4 g/dL 11/20/2017 Comp Metabolic Hxr412 A/G Ratio 1.8 Ratio 11/20/2017 Comp Metabolic Ngk786 Osmo 287 mOsmo 11/20/2017 Cbc With Differential [...] 31.0 pg 07/25/2017 Cbc With Differential Ord2 [place]% 13.3 % 07/25/2017 Cbc With Differential Ord2 [...] 1.89 K/ul 07/25/2017 Cbc With Differential Ord2 [place] ABS# 0.9 K/ul 07/25/2017 Cbc With Differential Ord2 Eos ABS# 0.2 K/ul 07/25/2017 Cbc With Differential Ord2 Baso ABS# 0.1 K/ul 07/25/2017 Comp Metabolic Vep597 NA 140 mEq/L 07/25/2017 Comp Metabolic Xbq307 K 4.7 mEq/L 07/25/2017 Comp Metabolic Mwi471 CL 102 mEq/L 07/25/2017 Comp Metabolic Mnw122 CO2 30.0 mEq/L 07/25/2017 Comp Metabolic Jor439 ANION GAP 13 07/25/2017 Comp Metabolic Jab979 GLUCOSE 178 mg/dL 07/25/2017 Comp Metabolic Dcj273 Creat 1.0 mg/dL 07/25/2017 Comp Metabolic Ecs628 eGFR 75 ml/min/1.73m2 07/25/2017 Comp Metabolic Hyr626 BUN 23 mg/dL 07/25/2017 Comp Metabolic Lfj936 B/C Ratio 22.3 Ratio 07/25/2017 Comp Metabolic Whx826 CALCIUM 9.7 mg/dL 07/25/2017 Comp Metabolic Rfl800 ALK PHOS 40 U/L 07/25/2017 Comp Metabolic Vyz846 AST(SGOT) 22 U/L 07/25/2017 Comp Metabolic Gqa467 ALT(SGPT) 25 U/L 07/25/2017 Comp Metabolic Uez401 BILI T 0.7 mg/dL 07/25/2017 Comp Metabolic Sel880 ALBUMIN 4.0 g/dL 07/25/2017 Comp Metabolic Zrt606 TPRO 6.7 g/dL 07/25/2017 Comp Metabolic Dyo390 GLOB 2.7 g/dL 07/25/2017 Comp Metabolic Qyp874 A/G Ratio 1.5 Ratio 07/25/2017 Comp Metabolic Fxc383 Osmo 288 mOsmo 07/25/2017 %Hba1C Mbk981 % HbA1c 80685- 6 7.1 % 07/25/2017 %Hba1C Xut440 Gluc Ave 157 mg/dL 07/25/2017 Lipid Ord30 CHOL 164 mg/dL 07/25/2017 Lipid Ord30 HDL 49.0 mg/dl 07/25/2017 Lipid Ord30 TRIG 266 mg/dL 07/25/2017 Lipid Ord30 LDL 62 mg/dL 07/25/2017 Lipid Ord30 C/HDL 3.3 Ratio 07/25/2017 Comp Metabolic Phh872 NA 140 mEq/L 04/02/2017 Comp Metabolic Brs576 K 4.4 mEq/L 04/02/2017 Comp Metabolic Vtq857 CL 103 mEq/L 04/02/2017 Comp Metabolic Pfi620 CO2 27.0 mEq/L 04/02/2017 Comp Metabolic Kwy107 ANION GAP 14 04/02/2017 Comp Metabolic Mdh498 GLUCOSE 182 mg/dL 04/02/2017 Comp Metabolic Yzt911 Creat 1.1 mg/dL 04/02/2017 Comp Metabolic Bst268 eGFR 73 ml/min/1.73m2 04/02/2017 Comp Metabolic Iyu441 BUN 26 mg/dL 04/02/2017 Comp Metabolic Ish289 B/C Ratio 24.5 Ratio 04/02/2017 Comp Metabolic Kxz413 CALCIUM 9.4 mg/dL 04/02/2017 Comp Metabolic Evq821 ALK PHOS 43 U/L 04/02/2017 Comp Metabolic Hjr640 AST(SGOT) 19 U/L 04/02/2017 Comp Metabolic Cgq131 ALT(SGPT) 20 U/L 04/02/2017 Comp Metabolic Mhy028 BILI T 0.7 mg/dL 04/02/2017 Comp Metabolic Dby724 ALBUMIN 4.0 g/dL 04/02/2017 Comp Metabolic Kpk354 TPRO 6.6 g/dL 04/02/2017 Comp Metabolic Lhb927 GLOB 2.6 g/dL 04/02/2017 Comp Metabolic Tgt860 A/G Ratio 1.6 Ratio 04/02/2017 Comp Metabolic Ruj894 Osmo 289 mOsmo 04/02/2017 %Hba1C Tla775 % HbA1c 42203- 6 7.9 % 04/02/2017 %Hba1C Glm678 Gluc Ave 180 mg/dL 04/02/2017 Cbc With [...] 30.6 pg 04/02/2017 Cbc With Differential Ord2 [place]% 11.5 % 04/02/2017 Cbc With Differential Ord2 [...] 2.21 K/ul 04/02/2017 Cbc With Differential Ord2 [place] ABS# 0.9 K/ul 04/02/2017 Cbc With Differential [...] 30.6 pg 12/04/2016 Cbc With Differential Ord2 [place]% 10.7 % 12/04/2016 Cbc With Differential Ord2 [...] 1.76 K/ul 12/04/2016 Cbc With Differential Ord2 [place] ABS# 0.8 K/ul 12/04/2016 Cbc With Differential Ord2 Eos ABS# 0.2 K/ul 12/04/2016 Cbc With Differential Ord2 Baso ABS# 0.1 K/ul 12/04/2016 Lipid Ord30 CHOL 156 mg/dL 12/04/2016 Lipid Ord30 HDL 47.0 mg/dl 12/04/2016 Lipid Ord30 TRIG 219 mg/dL 12/04/2016 Lipid Ord30 LDL 65 mg/dL 12/04/2016 Lipid Ord30 C/HDL 3.3 Ratio 12/04/2016 Comp Metabolic Xqi597 NA 139 mEq/L 12/04/2016 Comp Metabolic Xrn661 K 4.4 mEq/L 12/04/2016 Comp Metabolic Wpe727 CL 103 mEq/L 12/04/2016 Comp Metabolic Hrn164 CO2 27.0 mEq/L 12/04/2016 Comp Metabolic Afd341 ANION GAP 13 12/04/2016 Comp Metabolic Umt717 GLUCOSE 147 mg/dL 12/04/2016 Comp Metabolic Pet598 Creat 1.0 mg/dL 12/04/2016 Comp Metabolic Php449 eGFR 83 ml/min/1.73m2 12/04/2016 Comp Metabolic Dvu248 BUN 20 mg/dL 12/04/2016 Comp Metabolic Hfm309 B/C Ratio 21.1 Ratio 12/04/2016 Comp Metabolic Nso761 CALCIUM 9.5 mg/dL 12/04/2016 Comp Metabolic Gjv180 ALK PHOS 44 U/L 12/04/2016 Comp Metabolic Tzz492 AST(SGOT) 22 U/L 12/04/2016 Comp Metabolic Hdj628 ALT(SGPT) 23 U/L 12/04/2016 Comp Metabolic Rom603 BILI T 0.8 mg/dL 12/04/2016 Comp Metabolic Vhm589 ALBUMIN 3.9 g/dL 12/04/2016 Comp Metabolic Rgn587 TPRO 6.3 g/dL 12/04/2016 Comp Metabolic Euh039 GLOB 2.4 g/dL 12/04/2016 Comp Metabolic Nig948 A/G Ratio 1.7 Ratio 12/04/2016 Comp Metabolic Zwb388 Osmo 283 mOsmo 12/04/2016 Tsh Ord6 hTSH II 3.35 uIU/mL 12/04/2016 %Hba1C Mkn437 % HbA1c 28191- 6 7.4 % 12/04/2016 %Hba1C Yfn644 Gluc Ave 166 mg/dL 12/04/2016 Comp Metabolic Xhq804 NA 138 mEq/L 08/28/2016 Comp Metabolic Sre364 K 4.7 mEq/L 08/28/2016 Comp Metabolic Oal675 CL 101 mEq/L 08/28/2016 Comp Metabolic Iwo316 CO2 29.0 mEq/L 08/28/2016 Comp Metabolic Sdy613 ANION GAP 13 08/28/2016 Comp Metabolic Ywd283 GLUCOSE 188 mg/dL 08/28/2016 Comp Metabolic Lee346 Creat 1.0 mg/dL 08/28/2016 Comp Metabolic Wyp366 eGFR 82 ml/min/1.73m2 08/28/2016 Comp Metabolic Hut546 BUN 21 mg/dL 08/28/2016 Comp Metabolic Lek802 B/C Ratio 21.9 Ratio 08/28/2016 Comp Metabolic Lzi384 CALCIUM 9.6 mg/dL 08/28/2016 Comp Metabolic Brf468 ALK PHOS 52 U/L 08/28/2016 Comp Metabolic Xvt032 AST(SGOT) 27 U/L 08/28/2016 Comp Metabolic Fmd328 ALT(SGPT) 26 U/L 08/28/2016 Comp Metabolic Alt241 BILI T 0.9 mg/dL 08/28/2016 Comp Metabolic Cvp569 ALBUMIN 4.2 g/dL 08/28/2016 Comp Metabolic Gwa187 TPRO 6.8 g/dL 08/28/2016 Comp Metabolic Jlq320 GLOB 2.6 g/dL 08/28/2016 Comp Metabolic Nsl632 A/G Ratio 1.6 Ratio 08/28/2016 Comp Metabolic Saz956 Osmo 284 mOsmo 08/28/2016 Cbc With Differential [...] 30.9 pg 08/28/2016 Cbc With Differential Ord2 [place]% 14.3 % 08/28/2016 Cbc With Differential Ord2 [...] 1.68 K/ul 08/28/2016 Cbc With Differential Ord2 [place] ABS# 1.1 K/ul 08/28/2016 Cbc With Differential Ord2 Eos ABS# 0.3 K/ul 08/28/2016 Cbc With Differential Ord2 Baso ABS# 0.1 K/ul 08/28/2016 %Hba1C Tcv689 % HbA1c 10111- 6 7.6 % 08/28/2016 %Hba1C Cka400 Gluc Ave 171 mg/dL 08/28/2016 Cbc With [...] 30.3 pg 05/23/2016 Cbc With Differential Ord2 [place]% 12.0 % 05/23/2016 Cbc With Differential Ord2 [...] 1.74 K/ul 05/23/2016 Cbc With Differential Ord2 [place] ABS# 0.9 K/ul 05/23/2016 Cbc With Differential Ord2 Eos ABS# 0.2 K/ul 05/23/2016 Cbc With Differential Ord2 Baso ABS# 0.1 K/ul 05/23/2016 Tsh Ord6 hTSH II 3.24 uIU/mL 05/23/2016 %Hba1C Fiv458 % HbA1c 92364- 6 7.1 % 05/23/2016 %Hba1C Mgg184 Gluc Ave 157 mg/dL 05/23/2016 Lipid Ord30 CHOL 155 mg/dL 05/23/2016 Lipid Ord30 HDL 50.0 mg/dl 05/23/2016 Lipid Ord30 TRIG 159 mg/dL 05/23/2016 Lipid Ord30 LDL 73 mg/dL 05/23/2016 Lipid Ord30 C/HDL 3.1 Ratio 05/23/2016 Comp Metabolic Nzy926 NA 137 mEq/L 05/23/2016 Comp Metabolic Jrw261 K 4.3 mEq/L 05/23/2016 Comp Metabolic Vjk704 CL 102 mEq/L 05/23/2016 Comp Metabolic Ika429 CO2 28.0 mEq/L 05/23/2016 Comp Metabolic Pom701 ANION GAP 11 05/23/2016 Comp Metabolic Wtr198 GLUCOSE 140 mg/dL 05/23/2016 Comp Metabolic Mea921 Creat 0.9 mg/dL 05/23/2016 Comp Metabolic Tmp325 eGFR 93 ml/min/1.73m2 05/23/2016 Comp Metabolic Tvj421 BUN 23 mg/dL 05/23/2016 Comp Metabolic Lez716 B/C Ratio 26.7 Ratio 05/23/2016 Comp Metabolic Zax024 CALCIUM 9.4 mg/dL 05/23/2016 Comp Metabolic Bvq039 ALK PHOS 43 U/L 05/23/2016 Comp Metabolic Wdd803 AST(SGOT) 23 U/L 05/23/2016 Comp Metabolic Qeu092 ALT(SGPT) 23 U/L 05/23/2016 Comp Metabolic Zwl378 BILI T 0.7 mg/dL 05/23/2016 Comp Metabolic Zce604 ALBUMIN 4.2 g/dL 05/23/2016 Comp Metabolic Fej249 TPRO 6.8 g/dL 05/23/2016 Comp Metabolic Yio316 GLOB 2.6 g/dL 05/23/2016 Comp Metabolic Lct877 A/G Ratio 1.6 Ratio 05/23/2016 Comp Metabolic Lzp422 Osmo 280 mOsmo 05/23/2016 Cbc With Differential [...] 29.9 pg 01/24/2016 Cbc With Differential Ord2 [place]% 11.1 % 01/24/2016 Cbc With Differential Ord2 [...] 1.92 K/ul 01/24/2016 Cbc With Differential Ord2 [place] ABS# 0.8 K/ul 01/24/2016 Cbc With Differential Ord2 Eos ABS# 0.3 K/ul 01/24/2016 Cbc With Differential Ord2 Baso ABS# 0.1 K/ul 01/24/2016 Cbc With Differential Ord2 New Analyzer Notice Please note new ref ranges starting 09-21-2015 due to implemntation of new five part differential hematolgy analyzer. 01/24/2016 Comp Metabolic Ajs312 NA 139 mEq/L 01/24/2016 Comp Metabolic Zgo768 K 4.1 mEq/L 01/24/2016 Comp Metabolic Ccm336 CL 102 mEq/L 01/24/2016 Comp Metabolic Qjy492 CO2 29.0 mEq/L 01/24/2016 Comp Metabolic Rma693 ANION GAP 12 01/24/2016 Comp Metabolic Gwp302 GLUCOSE 140 mg/dL 01/24/2016 Comp Metabolic Bbs924 Creat 0.9 mg/dL 01/24/2016 Comp Metabolic Thl997 eGFR 87 ml/min/1.73m2 01/24/2016 Comp Metabolic Kfk685 BUN 20 mg/dL 01/24/2016 Comp Metabolic Owp366 B/C Ratio 22.0 Ratio 01/24/2016 Comp Metabolic Hti189 CALCIUM 9.3 mg/dL 01/24/2016 Comp Metabolic Nyp662 ALK PHOS 46 U/L 01/24/2016 Comp Metabolic Bbh090 AST(SGOT) 23 U/L 01/24/2016 Comp Metabolic Ylj949 ALT(SGPT) 22 U/L 01/24/2016 Comp Metabolic Cap825 BILI T 0.7 mg/dL 01/24/2016 Comp Metabolic Myj398 ALBUMIN 4.1 g/dL 01/24/2016 Comp Metabolic Vev275 TPRO 6.7 g/dL 01/24/2016 Comp Metabolic Mnb475 GLOB 2.6 g/dL 01/24/2016 Comp Metabolic Rqv647 A/G Ratio 1.6 Ratio 01/24/2016 Comp Metabolic Nck003 Osmo 282 mOsmo 01/24/2016 %Hba1C Thk763 % HbA1c 07480- 6 6.8 % 01/24/2016 %Hba1C Gxa745 Gluc Ave 148 mg/dL 01/24/2016 Tsh Ord6 hTSH II 3.45 uIU/mL 01/24/2016 Lipid Ord30 CHOL 137 mg/dL 01/24/2016 Lipid Ord30 HDL 47.0 mg/dl 01/24/2016 Lipid Ord30 TRIG 161 mg/dL 01/24/2016 Lipid Ord30 LDL 58 mg/dL 01/24/2016 Lipid Ord30 C/HDL 2.9 Ratio 01/24/2016 Tsh Ord6 hTSH II 3.71 uIU/mL 10/25/2015 %Hba1C Xbd872 % HbA1c 73207- 6 7.1 % 10/25/2015 %Hba1C Lkh954 Gluc Ave 157 mg/dL 10/25/2015 Cbc With [...] 30.2 pg 10/25/2015 Cbc With Differential Ord2 [place]% 12.4 % 10/25/2015 Cbc With Differential Ord2 [...] 1.69 K/ul 10/25/2015 Cbc With Differential Ord2 [place] ABS# 0.8 K/ul 10/25/2015 Cbc With Differential [...] Ord30 C/HDL 3.2 Ratio 10/25/2015 Comp Metabolic Tpy336 NA 136 mEq/L 10/25/2015 Comp Metabolic Nsm580 K 4.0 mEq/L 10/25/2015 Comp Metabolic Hvg915 CL 102 mEq/L 10/25/2015 Comp Metabolic Taa222 CO2 26.0 mEq/L 10/25/2015 Comp Metabolic Mde227 ANION GAP 12 10/25/2015 Comp Metabolic Poi831 GLUCOSE 119 mg/dL 10/25/2015 Comp Metabolic Dem163 Creat 1.1 mg/dL 10/25/2015 Comp Metabolic Ioi946 eGFR 69 ml/min/1.73m2 10/25/2015 Comp Metabolic Cxm460 BUN 21 mg/dL 10/25/2015 Comp Metabolic Jpo762 B/C Ratio 18.8 Ratio 10/25/2015 Comp Metabolic Pbl484 CALCIUM 9.5 mg/dL 10/25/2015 Comp Metabolic Axj855 ALK PHOS 49 U/L 10/25/2015 Comp Metabolic Dbs221 AST(SGOT) 29 U/L 10/25/2015 Comp Metabolic Sqe766 ALT(SGPT) 28 U/L 10/25/2015 Comp Metabolic Gxq615 BILI T 0.7 mg/dL 10/25/2015 Comp Metabolic Frc774 ALBUMIN 4.2 g/dL 10/25/2015 Comp Metabolic Kuc320 TPRO 6.7 g/dL 10/25/2015 Comp Metabolic Xqb578 GLOB 2.5 g/dL 10/25/2015 Comp Metabolic Coc587 A/G Ratio 1.7 Ratio 10/25/2015 Comp Metabolic Ysx165 Osmo 276 mOsmo 10/25/2015 Sensitivity Report #1 [id number] ORGANISM ESCHERICHIA COLI 10/06/2015 Sensitivity Report #1 [id number] ORG NUMBER 1 10/06/2015 Sensitivity Report #1 [id number] AMIKACIN S 10/06/2015 Sensitivity Report #1 [id number] AMPICILLIN/SULBACTAM S 10/06/2015 Sensitivity Report #1 [id number] AMOXICILLIN/CLAV S 10/06/2015 Sensitivity Report #1 [id number] CEFEPIME S 10/06/2015 Sensitivity Report #1 [id number] AMPICILLIN S 10/06/2015 Sensitivity Report #1 [id number] CEFOTAXIME S 10/06/2015 Sensitivity Report #1 [id number] CEFAZOLIN S 10/06/2015 Sensitivity Report #1 [id number] CEFTAZIDIME S 10/06/2015 Sensitivity Report #1 [id number] CEFTRIAXONE S 10/06/2015 Sensitivity Report #1 [id number] CIPROFLOXACIN S 10/06/2015 Sensitivity Report #1 [id number] GENTAMICIN S 10/06/2015 Sensitivity Report #1 [id number] LEVOFLOXACIN S 10/06/2015 Sensitivity Report #1 [id number] CEFUROXIME S 10/06/2015 Sensitivity Report #1 [id number] MEROPENEM S 10/06/2015 Sensitivity Report #1 [id number] TETRACYCLINE S 10/06/2015 Sensitivity Report #1 [id number] ERTAPENEM S 10/06/2015 Sensitivity Report #1 [id number] TOBRAMYCIN S 10/06/2015 Sensitivity Report #1 [id number] TRIMETH/SULFA S 10/06/2015 Sensitivity Report #1 [id number] IMIPENEM S 10/06/2015 Sensitivity Report #1 [id number] NITROFURANTOIN S 10/06/2015 Sensitivity Report #1 [id number] PIPERACILLIN/TAZO S 10/06/2015 Culture Urine [id number] URINE CULTURE SEE NOTES 10/06/2015 Culture Urine [id number] SOURCE: URINE 10/06/2015 Culture Urine [id number] STATUS: FINAL 10/06/2015 Culture Urine [id number] DATE PLATED: 10/03/2015 10/06/2015 Culture Urine [id number] PRELIMINARY: 10/06/2015 Culture Urine [id number] CULTURE REPORT: 10/06/2015 Urine Culture Ucult Complete >100,000 col/ml aerobic growth sent to ref lab 10/04/2015 Comp Metabolic Ewz992 NA 133 mEq/L 07/19/2015 Comp Metabolic Eld234 K 4.2 mEq/L 07/19/2015 Comp Metabolic Vqn915 CL 101 mEq/L 07/19/2015 Comp Metabolic Xoi391 CO2 25.0 mEq/L 07/19/2015 Comp Metabolic Mhe837 ANION GAP 11 07/19/2015 Comp Metabolic Jbo269 GLUCOSE 293 mg/dL 07/19/2015 Comp Metabolic Syb871 Creat 1.0 mg/dL 07/19/2015 Comp Metabolic Gtw113 eGFR 81 ml/min/1.73m2 07/19/2015 Comp Metabolic Wdj363 BUN 19 mg/dL 07/19/2015 Comp Metabolic Mvu212 B/C Ratio 19.6 Ratio 07/19/2015 Comp Metabolic Ngu068 CALCIUM 9.4 mg/dL 07/19/2015 Comp Metabolic Ifn390 ALK PHOS 61 U/L 07/19/2015 Comp Metabolic Xnb483 AST(SGOT) 32 U/L 07/19/2015 Comp Metabolic Yio183 ALT(SGPT) 41 U/L 07/19/2015 Comp Metabolic Fiz600 BILI T 0.7 mg/dL 07/19/2015 Comp Metabolic Nju930 ALBUMIN 4.1 g/dL 07/19/2015 Comp Metabolic Dlh448 TPRO 6.7 g/dL 07/19/2015 Comp Metabolic Bdg283 GLOB 2.6 g/dL 07/19/2015 Comp Metabolic Spv016 A/G Ratio 1.6 Ratio 07/19/2015 Comp Metabolic Gsj633 Osmo 279 mOsmo 07/19/2015 %Hba1C Ybz200 % HbA1c 89750- 6 9.2 % 07/19/2015 %Hba1C Sno769 Gluc Ave 217 mg/dL 07/19/2015 Cbc With [...] Ord6 hTSH II 2.72 uIU/mL 04/19/2015 %Hba1C Kjx019 % HbA1c 79613- 6 8.6 % 04/19/2015 %Hba1C Tix610 Gluc Ave 200 mg/dL 04/19/2015 Comp Metabolic Ysz446 NA 139 mEq/L 04/19/2015 Comp Metabolic Gpq057 K 4.2 mEq/L 04/19/2015 Comp Metabolic Kst945 CL 106 mEq/L 04/19/2015 Comp Metabolic Fwe715 CO2 27.0 mEq/L 04/19/2015 Comp Metabolic Xaa030 ANION GAP 10 04/19/2015 Comp Metabolic Rmn203 GLUCOSE 157 mg/dL 04/19/2015 Comp Metabolic Ucr530 Creat 0.9 mg/dL 04/19/2015 Comp Metabolic Xnu753 eGFR 84 ml/min/1.73m2 04/19/2015 Comp Metabolic Twa518 BUN 14 mg/dL 04/19/2015 Comp Metabolic Tlo949 B/C Ratio 14.9 Ratio 04/19/2015 Comp Metabolic Ecl161 CALCIUM 9.5 mg/dL 04/19/2015 Comp Metabolic Wbj826 ALK PHOS 51 U/L 04/19/2015 Comp Metabolic Oon800 AST(SGOT) 28 U/L 04/19/2015 Comp Metabolic Ofq166 ALT(SGPT) 29 U/L 04/19/2015 Comp Metabolic Ibq647 BILI T 0.6 mg/dL 04/19/2015 Comp Metabolic Eha019 ALBUMIN 4.1 g/dL 04/19/2015 Comp Metabolic Dzs386 TPRO 6.4 g/dL 04/19/2015 Comp Metabolic Exj143 GLOB 2.3 g/dL 04/19/2015 Comp Metabolic Mnf619 A/G Ratio 1.8 Ratio 04/19/2015 Comp Metabolic Dhu195 Osmo 281 mOsmo 04/19/2015 Lipid Ord30 CHOL 136 mg/dL 04/19/2015 Lipid Ord30 HDL 42.0 mg/dl 04/19/2015 Lipid Ord30 TRIG 226 mg/dL 04/19/2015 Lipid Ord30 LDL 49 mg/dL 04/19/2015 Lipid Ord30 C/HDL 3.2 Ratio 04/19/2015 Review of Systems System Result Effective Dates Constitutional No anorexia 02/10/2019 Constitutional No night sweats 02/10/2019 Constitutional No chills 02/10/2019 Constitutional No fever 02/10/2019 Constitutional No insomnia 02/10/2019 Constitutional weight gain 02/10/2019 Constitutional obesity 02/10/2019 Eyes No vision change 02/10/2019 Ears/Nose/Throat/Neck No dizziness 02/10/2019 Ears/Nose/Throat/Neck No headache 02/10/2019 Cardiovascular No chest pain/pressure 02/10/2019 Cardiovascular No palpitations 02/10/2019 Respiratory No cough 02/10/2019 Gastrointestinal No abdominal pain 02/10/2019 Gastrointestinal No constipation 02/10/2019 Gastrointestinal No diarrhea 02/10/2019 Gastrointestinal No nausea 02/10/2019 Gastrointestinal No vomiting 02/10/2019 Musculoskeletal No swelling 02/10/2019 Musculoskeletal No joint complaint 02/10/2019 Neurologic No dizziness 02/10/2019 Neurologic dyskinesia or tremor 02/10/2019 Psychiatric No anxiety 02/10/2019 Psychiatric depression 02/10/2019 Dermatologic No rash 02/10/2019 Dermatologic sores 02/10/2019 Constitutional No anorexia 01/26/2019 Constitutional No night sweats 01/26/2019 Constitutional No chills 01/26/2019 Constitutional No fever 01/26/2019 Constitutional No insomnia 01/26/2019 Eyes No vision change 01/26/2019 Ears/Nose/Throat/Neck No dizziness 01/26/2019 Ears/Nose/Throat/Neck No headache 01/26/2019 Cardiovascular No chest pain/pressure 01/26/2019 Cardiovascular No palpitations 01/26/2019 Respiratory No cough 01/26/2019 Gastrointestinal No abdominal pain 01/26/2019 Gastrointestinal No constipation 01/26/2019 Gastrointestinal No diarrhea 01/26/2019 Gastrointestinal No nausea 01/26/2019 Gastrointestinal No vomiting 01/26/2019 Musculoskeletal No swelling 01/26/2019 Musculoskeletal No joint complaint 01/26/2019 Neurologic No dizziness 01/26/2019 Psychiatric No anxiety 01/26/2019 Psychiatric depression 01/26/2019 Constitutional recent illness 01/26/2019 Constitutional No diaphoresis 01/26/2019 Constitutional fatigue 01/26/2019 Constitutional No malaise 01/26/2019 Genitourinary/Nephrology No dysuria 01/26/2019 Dermatologic sores 01/26/2019 Constitutional No anorexia 01/08/2019 Constitutional No night [...] 1994 Constitutional general appearance Overall: well developed 02/10/2019 None Full Exam - General 1994 Constitutional general appearance Overall: in no acute distress 02/10/2019 None Full Exam - General 1994 Constitutional general appearance Overall: well nourished 02/10/2019 None Full Exam - General 1994 Eyes pupils and irises Overall: pupils equal, round, reactive to light and accomodation 02/10/2019 None Full Exam - General 1994 Ears/Nose/Throat oral cavity/pharynx/larynx Overall: oral mucosa clear 02/10/2019 None Full Exam - General 1994 Ears/Nose/Throat oral cavity/pharynx/larynx Overall: oropharyngeal mucosa clear 02/10/2019 None Full Exam - General 1994 Ears/Nose/Throat oral cavity/pharynx/larynx Overall: no masses 02/10/2019 None Full Exam - General 1994 Respiratory auscultation Overall: breath sounds clear bilaterally 02/10/2019 None Full Exam - General 1994 Respiratory respiratory effort/rhythm Overall: no retractions 02/10/2019 None Full Exam - General 1994 Respiratory respiratory effort/rhythm Overall: normal rate 02/10/2019 None Full Exam - General 1994 Cardiovascular auscultation of heart Overall: regular rate 02/10/2019 None Full Exam - General 1994 Cardiovascular auscultation of heart Overall: normal heart sounds 02/10/2019 None Full Exam - General 1994 Cardiovascular auscultation of heart Overall: no murmurs 02/10/2019 None Full Exam - General 1994 Abdomen abdominal exam Contour: rounded 02/10/2019 None Full Exam - General 1994 Abdomen abdominal exam Contour: protuberant 02/10/2019 None Full Exam - General 1994 Abdomen abdominal exam Periumbilical: mass present 02/10/2019 around umbilicus the patient has hardened hematoma, nontender, not reducible Full Exam - General 1994 Musculoskeletal head and neck Overall: head atraumatic 02/10/2019 None Full Exam - General 1994 Musculoskeletal head and neck Overall: cervical spine benign 02/10/2019 None Full Exam - General 1994 Integument inspection of skin Pigmentation: ecchymosis 02/10/2019 left lower abdomen Full Exam - General 1994 Neurologic sensation Touch: (specify location of deficit): light touch decreased on plantar surface of feet bilaterally and great toes bilaterally 02/10/2019 None Full Exam - General 1994 Neurologic sensation Touch: (specify location of deficit): vibration intact on great toes, decreased on lateral right and left feet 02/10/2019 None Full Exam - General 1994 Neurologic gait Conventional walking: wide-based 02/10/2019 None Full Exam - General 1994 Neurologic coordination Tremors: resting 02/10/2019 None Full Exam - General 1994 Psychiatric orientation/consciousness Overall: oriented to person, place and time 02/10/2019 None Full Exam - General 1994 Psychiatric mood and affect Overall: normal mood and affect 02/10/2019 None Full Exam - General 1994 Constitutional general appearance Overall: well developed 01/26/2019 None Full Exam - General 1994 Constitutional general appearance Overall: in no acute distress 01/26/2019 None Full Exam - General 1994 Constitutional general appearance Overall: well nourished 01/26/2019 None Full Exam - General 1994 Eyes pupils and irises Overall: pupils equal, round, reactive to light and accomodation 01/26/2019 None Full Exam - General 1994 Ears/Nose/Throat oral cavity/pharynx/larynx Overall: oral mucosa clear 01/26/2019 None Full Exam - General 1994 Ears/Nose/Throat oral cavity/pharynx/larynx Overall: oropharyngeal mucosa clear 01/26/2019 None Full Exam - General 1994 Ears/Nose/Throat oral cavity/pharynx/larynx Overall: no masses 01/26/2019 None Full Exam - General 1994 Respiratory auscultation Overall: breath sounds clear bilaterally 01/26/2019 None Full Exam - General 1994 Respiratory respiratory effort/rhythm Overall: no retractions 01/26/2019 None Full Exam - General 1994 Respiratory respiratory effort/rhythm Overall: normal rate 01/26/2019 None Full Exam - General 1994 Cardiovascular auscultation of heart Overall: regular rate 01/26/2019 None Full Exam - General 1994 Cardiovascular auscultation of heart Overall: normal heart sounds 01/26/2019 None Full Exam - General 1994 Cardiovascular auscultation of heart Overall: no murmurs 01/26/2019 None Full Exam - General 1994 Abdomen abdominal exam Contour: rounded 01/26/2019 None Full Exam - General 1994 Abdomen abdominal exam Contour: protuberant 01/26/2019 None Full Exam - General 1994 Musculoskeletal head and neck Overall: head atraumatic 01/26/2019 None Full Exam - General 1994 Musculoskeletal head and neck Overall: cervical spine benign 01/26/2019 None Full Exam - General 1994 Neurologic sensation Touch: (specify location of deficit): light touch decreased on plantar surface of feet bilaterally and great toes bilaterally 01/26/2019 None Full Exam - General 1994 Neurologic sensation Touch: (specify location of deficit): vibration intact on great toes, decreased on lateral right and left feet 01/26/2019 None Full Exam - General 1994 Neurologic gait Conventional walking: wide-based 01/26/2019 None Full Exam - General 1994 Neurologic coordination Tremors: resting 01/26/2019 None Full Exam - General 1994 Psychiatric orientation/consciousness Overall: oriented to person, place and time 01/26/2019 None Full Exam - General 1994 Psychiatric mood and affect Overall: normal mood and affect 01/26/2019 None Full Exam - General 1994 Abdomen abdominal exam Lower quadrant: tender to palpation 01/26/[address] left lower abdomen -slight redness noted around wound vac Full Exam - General 1994 Constitutional general [...] rounded 10/09/2018 None Full Exam - General 1995 Abdomen abdominal exam Contour: protuberant 10/09/2018 None [...] retractions 07/01/2013 None Full Exam - General 1995 Respiratory respiratory effort/rhythm Overall: normal rate 07/01/2013 [...] atraumatic 07/01/2013 None Full Exam - General 1995 [...] nourished 09/25/2012 None Full Exam - General 1995 Eyes [...] protuberant 06/25/2012 None Full Exam - General 1995 Musculoskeletal [...] VACC NO PRSV 3 YRS+ IM CPT-4: 91984 05/21/2018 IIV4 VACC NO PRSV 3 YRS+ IM CPT-4: 42642 05/21/2018 ADMIN INFLUENZA VIRUS VAC CPT-4: G0008 05/21/2018 ADMIN PNEUMOCOCCAL VACCINE SNOMED CT: 78061392 CPT-4: G0009 05/21/2018 FLU VAC NO PRSV 4 DONNA 3 YRS+ CPT-4: 14428 05/21/2018 PPPS, SUBSEQ VISIT CPT- 4: G0439 12/24/2017 TRIAMCINOLONE ACET INJ NOS CPT-4: J3301 12/24/2017 DRAIN/INJECT JOINT/BURSA CPT-4: 55655 12/24/2017 REMOVAL OF SKIN TAGS <W/15 CPT-4: 14548 07/02/2017 ADMIN INFLUENZA VIRUS VAC CPT-4: G0008 06/28/2017 FLU VAC NO PRSV 4 DONNA 3 YRS+ CPT-4: 44548 06/28/2017 TRIAMCINOLONE ACET INJ NOS CPT-4: J3301 06/04/2017 PPPS, SUBSEQ VISIT CPT- 4: G0439 12/13/2016 PNEUMOCOCCAL VACC [address]: 32031414 CPT-4: 10614 12/13/2016 [address]CCAL VACCINE SNOMED CT: 72986080 CPT-4: G0009 12/13/2016 DRAIN/INJECT JOINT/BURSA CPT-4: 44737 08/30/2016 TRIAMCINOLONE ACET INJ NOS CPT-4: J3301 08/30/2016 URINALYSIS NONAUTO W/O SCOPE CPT-4: 57322 07/13/2016 INJ TRIGGER POINT 1/2 MUSCL CPT-4: 63132 06/21/2016 ADMIN INFLUENZA VIRUS VAC CPT-4: G0008 05/24/2016 FLU VACC PRSV FREE INC ANTIG Formatting Model/CDA Sections, Assigned to/Judy Pierre CPT-4: 58485Bzslnez 05/24/2016 URINALYSIS NONAUTO W/O SCOPE CPT-4: 39151 10/03/2015 ADMIN INFLUENZA VIRUS VAC CPT-4: G0008 07/20/2015 IMMUNIZATION ADMIN CPT- 4: 79814 07/20/2015 FLU VACC PRSV FREE INC ANTIG Formatting Model/CDA Sections, Assigned to/Judy Pierre CPT-4: 59581Jqwatwv 07/20/2015 URINALYSIS NONAUTO W/O SCOPE CPT-4: 65342 05/18/2015 URINALYSIS NONAUTO W/O SCOPE CPT-4: 35424 05/09/2015 ADMIN INFLUENZA VIRUS VAC CPT-4: G0008 06/03/2014 FLU VAC NO PRSV 4 DONNA 3 YRS+ Assigned to/Judy Pierre CPT-4: 58774Nptalom 06/03/2014 TRIAMCINOLONE ACET INJ NOS CPT-4: J3301 05/04/2014 ADMIN INFLUENZA VIRUS VAC CPT-4: G0008 07/01/2013 FLULAVAL VACC, 3 YRS & >, IM CPT-4: Q2036 07/01/2013 PRESCRIP TRANSMIT VIA ERX SY CPT-4: G8553 03/04/2013 PRESCRIP TRANSMIT VIA ERX SY CPT-4: G8553 02/04/2013 DRAIN/INJECT JOINT/BURSA CPT-4: 15603 09/25/2012 ADMIN INFLUENZA VIRUS VAC CPT-4: G0008 06/04/2012 FLULAVAL VACC, 3 YRS & >, IM CPT-4: Q2036 06/04/2012 ADMIN PNEUMOCOCCAL VACCINE SNOMED CT: 95755432 CPT-4: G0009 06/04/2012 PRESCRIP TRANSMIT VIA ERX SY CPT-4: G8553 04/09/2012 ROCEPHIN, PER 250 MG CPT- 4: J0696 03/04/2012 PRESCRIP TRANSMIT VIA ERX SY CPT-4: G8553 03/04/2012 DESTRUCT PREMALG LESION CPT-4: 12278 07/24/2011 DESTRUCT PREMALG LES 2-14 CPT-4: 64744 07/24/2011 DESTRUCT PREMALG LES 2-14 CPT-4: 31162 07/18/2011 DESTRUCT PREMALG LESION CPT-4: 25600 07/18/2011 Vital Signs Date Vital 02/10/2019 Blood Pressure 1: 132/68 Code: 8480-6 BMI: 35.5 Code: 17233-7 Heart Rate 1: 73 bpm Height: 5'6" SpO2: 98% Temperature: 36.5 (C) / 97.7 (F) Weight: 220 lbs 01/26/2019 Blood Pressure 1: 140/72 Code: 8480-6 BMI: 37.3 Code: 40167-6 Head Circumference (cm): 244 cm Heart Rate 1: 90 bpm Height: 5'6" Weight: 231 lbs 01/08/2019 Blood Pressure 1: 150/78 Code: 8480-6 Blood Pressure 2: 142/70 Code: 8480-6 BMI: 37.9 Code: 71206-8 Heart Rate 1: 59 bpm Height: 5'6" SpO2: 98% Weight: 235 lbs 10/09/2018 Blood Pressure 1: 148/80 Code: 8480-6 BMI: 42.3 Code: 49190-1 Heart Rate 1: 66 bpm Height: 5'6" SpO2: 97% Weight: 262 lbs 07/07/2018 Blood Pressure 1: 140/76 Code: 8480-6 BMI: 45.2 Code: 66345-7 Heart Rate 1: 66 bpm Height: 5'6" SpO2: 98% Weight: 280 lbs 05/21/2018 Blood Pressure 1: 16478 Code: 8480-6 Blood Pressure 1: 132/74 Code: 8480-6 BMI: 44.5 Code: 59801-7 Heart Rate 1: 63 bpm Height: 5'6" SpO2: 96% Weight: 276 lbs 03/06/2018 Blood Pressure 1: 140/80 Code: 8480-6 BMI: 45.6 Code: 29272-5 Heart Rate 1: 94 bpm Height: 5'6" SpO2: 96% Weight: 282 lbs 4 oz 12/24/2017 Blood Pressure 1: 148/72 Code: 8480-6 BMI: 44.7 Code: 28384-4 Heart Rate 1: 70 bpm Height: 5'6" SpO2: 95% Waist Measure (cm): 132 cm Weight: 277 lbs 11/21/2017 Blood Pressure 1: 134/76 Code: 8480-6 BMI: 44.4 Code: 40610-7 Heart Rate 1: 63 bpm Height: 5'6" SpO2: 97% Weight: 275 lbs 07/29/2017 Blood Pressure 1: 14876 Code: 8480-6 BMI: 43.7 Code: 62170-9 Heart Rate 1: 75 bpm Height: 5'6" SpO2: 97% Weight: 275 lbs 07/02/2017 Blood Pressure 1: 14878 Code: 8480-6 BMI: 43.4 Code: 53776-5 Heart Rate 1: 55 bpm Height: 5'6" SpO2: 97% Weight: 273 lbs 06/04/2017 Blood Pressure 1: 132/58 Code: 8480-6 BMI: 43.1 Code: 06524-3 Heart Rate 1: 64 bpm Height: 5'6" SpO2: 96% Weight: 271 lbs 04/03/2017 Blood Pressure 1: 124/70 Code: 8480-6 BMI: 44.2 Code: 56246-6 Heart Rate 1: 70 bpm Height: 5'6" Height: 5'6" SpO2: 95% Weight: 278 lbs 12/13/2016 Blood Pressure 1: 150/78 Code: 8480-6 BMI: 44.2 Code: 60735-8 Heart Rate 1: 67 bpm Height: 5'6" SpO2: 97% Weight: 278 lbs 12/05/2016 Blood Pressure 1: 122/80 Code: 8480-6 Blood Pressure 1: 126/90 Code: 8480-6 BMI: 44.2 Code: 89698-5 Heart Rate 1: 70 bpm Height: 5'6" SpO2: 97% Weight: 278 lbs 08/30/2016 Blood Pressure 1: 134/70 Code: 8480-6 Blood Pressure 1: 134/78 Code: 8480-6 BMI: 43.9 Code: 01583-5 Heart Rate 1: 62 bpm Height: 5'6" SpO2: 98% Weight: 276 lbs 07/13/2016 Blood Pressure 1: 140/68 Code: 8480-6 BMI: 43.2 Code: 08473-8 Heart Rate 1: 59 bpm Height: 5'6" SpO2: 96% Weight: 272 lbs 06/21/2016 Blood Pressure 1: 140/70 Code: 8480-6 BMI: 43.2 Code: 76598-4 Heart Rate 1: 70 bpm Height: 5'6" SpO2: 94% Weight: 272 lbs 05/24/2016 Blood Pressure 1: 138/70 Code: 8480-6 Blood Pressure 1: 138/72 Code: 8480-6 BMI: 43.2 Code: 48758-5 Heart Rate 1: 65 bpm Height: 5'6" SpO2: 97% Weight: 272 lbs 01/24/2016 Blood Pressure 1: 122/62 Code: 8480-6 BMI: 43.1 Code: 10907-8 Heart Rate 1: 61 bpm Height: 5'6" SpO2: 97% Weight: 271 lbs 10/27/2015 Blood Pressure 1: 122/64 Code: 8480-6 BMI: 42.4 Code: 82882-9 Heart Rate 1: 58 bpm Height: 5'6" SpO2: 97% Weight: 267 lbs 09/21/2015 Blood Pressure 1: 128/70 Code: 8480-6 BMI: 43.2 Code: 59865-2 Heart Rate 1: 65 bpm Height: 5'6" SpO2: 98% Weight: 272 lbs 08/17/2015 Blood Pressure 1: 120/64 Code: 8480-6 BMI: 44.8 Code: 04570-3 Heart Rate 1: 57 bpm Height: 5'6" SpO2: 97% Weight: 282 lbs 07/20/2015 Blood Pressure 1: 144/70 Code: 8480-6 BMI: 45.3 Code: 44695-5 Heart Rate 1: 67 bpm Height: 5'6" SpO2: 95% Weight: 285 lbs 05/09/2015 Blood Pressure 1: 180/60 Code: 8480-6 Blood Pressure 2: 140/80 Code: 8480-6 04/20/2015 Blood Pressure 1: 138/64 Code: 8480-6 BMI: 45.6 Code: 36690-9 Heart Rate 1: 60 bpm Height: 5'6" SpO2: 98% Weight: 287 lbs 02/28/2015 Blood Pressure 1: 142/78 Code: 8480-6 BMI: 45.8 Code: 27289-5 Heart Rate 1: 68 bpm Height: 5'6" Weight: 288 lbs 02/14/2015 Blood Pressure 1: 142/78 Code: 8480-6 BMI: 45.3 Code: 90910-3 Heart Rate 1: 88 bpm Height: 5'6" Weight: 285 lbs 11/11/2014 Blood Pressure 1: 152/72 Code: 8480-6 Heart Rate 1: 64 bpm Weight: 282 lbs 10/04/2014 Blood Pressure 1: 140/72 Code: 8480-6 BMI: 45.6 Code: 57228-6 Heart Rate 1: 76 bpm Height: 5'6" Weight: 287 lbs 08/02/2014 Blood Pressure 1: 132/62 Code: 8480-6 BMI: 45.6 Code: 81809-6 Heart Rate 1: 64 bpm Height: 5'6" Weight: 287 lbs 06/15/2014 Blood Pressure 1: 142/62 Code: 8480-6 BMI: 44.7 Code: 57250-8 Heart Rate 1: 68 bpm Height: 5'6" SpO2: 97% Weight: 281 lbs 05/04/2014 Blood Pressure 1: 140/78 Code: 8480-6 BMI: 45.0 Code: 60279-0 Heart Rate 1: 60 bpm Height: 5'6" SpO2: 98% Weight: 283 lbs 04/19/2014 Blood Pressure 1: 130/62 Code: 8480-6 BMI: 44.7 Code: 92351-1 Heart Rate 1: 56 bpm Height: 5'6" Weight: 281 lbs 02/08/2014 Blood Pressure 1: 118/58 Code: 8480-6 BMI: 45.3 Code: 48639-7 Heart Rate 1: 60 bpm Height: 5'6" Weight: 285 lbs 01/13/2014 Blood Pressure 1: 112/52 Code: 8480-6 BMI: 44.2 Code: 14198-4 Heart Rate 1: 60 bpm Height: 5'6" Weight: 278 lbs 10/14/2013 Blood Pressure 1: 132/70 Code: 8480-6 BMI: 43.1 Code: 42364-1 Heart Rate 1: 60 bpm Height: 5'6" Weight: 271 lbs 07/01/2013 Blood Pressure 1: 158/76 Code: 8480-6 Heart Rate 1: 52 bpm Weight: 263 lbs 05/13/2013 Weight: 268 lbs 04/15/2013 Weight: 272 lbs 03/04/2013 Blood Pressure 1: 146/68 Code: 8480-6 BMI: 45.6 Code: 61229-2 Heart Rate 1: 68 bpm Height: 5'6" Weight: 287 lbs 02/04/2013 Blood Pressure 1: 140/68 Code: 8480-6 BMI: 46.1 Code: 49313-2 Heart Rate 1: 64 bpm Height: 5'6" Weight: 290 lbs 12/03/2012 Blood Pressure 1: 124/62 Code: 8480-6 BMI: 44.8 Code: 90710-4 Heart Rate 1: 64 bpm Height: 5'6" [...] 1: 146/76 Code: 8480-6 BMI: 44.7 Code: 71650-0 Heart Rate 1: 60 bpm Height: 5'6" Weight: 281 lbs 06/25/2012 Blood Pressure 1: 128/76 Code: 8480-6 BMI: 43.7 Code: 72011-4 Heart Rate 1: 72 bpm Height: 5'6" Weight: 275 lbs 06/03/2012 Blood Pressure 1: 136/62 Code: 8480-6 BMI: 43.2 Code: 45226-2 Heart Rate 1: 72 bpm Height: 5'6" Respiratory Rate: 20 bpm Weight: 272 lbs 04/24/2012 Blood Pressure 1: 116/60 Code: 8480-6 BMI: 42.3 Code: 38995-9 Heart Rate 1: 68 bpm Height: 5'6" Respiratory Rate: 16 bpm Weight: 266 lbs 04/09/2012 Blood Pressure 1: 150/82 Code: 8480-6 Heart Rate 1: 72 bpm Weight: 03/04/2012 Blood Pressure 1: 124/70 Code: 8480-6 Heart Rate 1: 72 bpm Respiratory Rate: 16 bpm Weight: 277 lbs 12/03/2011 Blood Pressure 1: 120/60 Code: 8480-6 BMI: 44.8 Code: 71565-2 Heart Rate 1: 68 bpm Height: 5'6" Respiratory Rate: 16 bpm Weight: 282 lbs 10/31/2011 Blood Pressure 1: 120/60 Code: 8480-6 BMI: 44.8 Code: 95591-5 Heart Rate 1: 74 bpm Height: 5'6" Respiratory Rate: 16 bpm Weight: 282 lbs 08/29/2011 Blood Pressure 1: 152/76 Code: 8480-6 BMI: 44.5 Code: 45543-2 Heart Rate 1: 66 bpm Height: 5'6" Respiratory Rate: 16 bpm Weight: 280 lbs 07/24/2011 Blood Pressure 1: 142/80 Code: 8480-6 BMI: 44.8 Code: 07999-6 Heart Rate 1: 66 bpm Height: 5'6" Respiratory Rate: 16 bpm Weight: 282 lbs 07/18/2011 Blood Pressure 1: 136/60 Code: 8480-6 BMI: 44.5 Code: 85952-0 Heart Rate 1: 72 bpm Height: 5'6" Respiratory Rate: 16 bpm Weight: 280 lbs Functional Status No Functional Status data History of Present Illness Symptom Name Status Result Effective Date Notes Onset of Symptom onset as an adult 02/10/2019 None Quality chronic 02/10/2019 None Quality improving 02/10/2019 None Severity moderate 02/10/2019 None Alleviating Factors medication 02/10/2019 None Exacerbating Factors diet 02/10/2019 None Quality chronic 02/10/2019 None Quality primary hypertension 02/10/2019 None Pertinent Findings Denies dizziness 02/10/2019 None _ infection 01/26/2019 None Onset of Symptom 1 weeks ago 01/26/2019 None Pertinent Findings pain 01/26/2019 None Severity mild 01/26/2019 None Significant Medical Conditions acute illness 01/26/2019 UTI Onset of Symptom onset as an adult [...] when he could not remember what the guide cruise was talking about at [facility] - pt states that he has [...] data Encounters Encounter Performer Location Codes Date [id number]) 10514 EST. PATIENT, LEVEL IV Diagnosis: Essential (primary) hypertension[ICD10: I10] Diagnosis: Type 2 diabetes mellitus with diabetic polyneuropathy[ICD10: E11.42] Maria Victoria Harrell MD, [facility] CPT-4: 29970 02/10/2019 [id number]) 00098 EST. PATIENT, LEVEL IV Diagnosis: Urinary tract infection, site not specified[ICD10: N39.0] Diagnosis: Syncope and collapse[ICD10: R55] Diagnosis: Infection following a procedure, other surgical site, initial encounter[ICD10: T81.49XA] Maria Victoria Harrell MD, [facility] CPT-4: 67694 01/26/2019 [id number]) 98867 EST. PATIENT, LEVEL IV Diagnosis: Essential (primary) hypertension[ICD10: I10] Diagnosis: Type 2 diabetes mellitus without complications[ICD10: E11.9] Diagnosis: Morbid (severe) obesity due to excess calories[ICD10: E66.01] Maria Victoria Harrell MD, [facility] CPT-4: 74659 01/08/2019 ([id number]) 38360 EST. PATIENT, LEVEL IV Diagnosis: Essential (primary) hypertension[ICD10: I10] Diagnosis: Type 2 diabetes mellitus without complications[ICD10: E11.9] Diagnosis: Mixed hyperlipidemia[ICD10: E78.2] Maria Victoria Harrell MD, [facility] CPT- 4: 55407 10/09/2018 [id number] 33840 EST. PATIENT, LEVEL IV Diagnosis: Type 2 diabetes mellitus with hyperglycemia[ICD10: E11.65] Diagnosis: Essential (primary) hypertension[ICD10: I10] Diagnosis: Low back pain[ICD10: M54.5] Maria Victoria Harrell MD, [facility] CPT-4: 06760 07/07/2018 ([id number]) 54831 EST. PATIENT, LEVEL IV Diagnosis: Encounter for immunization[ICD10: Z23] Diagnosis: Type 2 diabetes mellitus with diabetic polyneuropathy[ICD10: E11.42] Diagnosis: Essential (primary) hypertension[ICD10: I10] Diagnosis: Encounter for gynecological examination (general) (routine) without abnormal findings[ICD10: Z01.419] Maria Victoria Harrell MD, [facility] CPT-4: 30789 05/21/2018 ([id number]) 96238 EST. 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 PATIENT, LEVEL IV Diagnosis: Type 2 diabetes mellitus with hyperglycemia[ICD10: E11.65] Diagnosis: Essential (primary) hypertension[ICD10: I10] Diagnosis: Arthralgia of bilateral temporomandibular joint[ICD10: M26.623] Maria Victoria Harrell MD, [facility] CPT-4: 63588 11/21/2017 ([id number]) 77521 EST. PATIENT, LEVEL IV Diagnosis: Type 2 diabetes mellitus without complications[ICD10: E11.9] Diagnosis: Essential (primary) hypertension[ICD10: I10] Diagnosis: Mixed hyperlipidemia[ICD10: E78.2] Maria Victoria Harrell MD, [facility] CPT- 4: 12984 07/29/2017 ([id number]) 70075 EST. PATIENT, LEVEL III Diagnosis: Lumbago with sciatica, right side[ICD10: M54.41] Sunitha Harrell MD, [facility] CPT-4: 15390 06/04/2017 ([id number]) 21264 EST. 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 PATIENT, LEVEL IV Diagnosis: Essential (primary) hypertension[ICD10: I10] Diagnosis: Type 2 diabetes mellitus without complications[ICD10: E11.9] Maria Victoria Harrell MD, [facility] CPT-4: 94439 12/05/2016 ([id number]) 12269 EST. PATIENT, LEVEL IV Diagnosis: Essential (primary) hypertension[ICD10: I10] Diagnosis: Type 2 diabetes mellitus with hyperglycemia[ICD10: E11.65] Diagnosis: Morbid (severe) obesity due to excess calories[ICD10: E66.01] Diagnosis: Essential tremor[ICD10: G25.0] Diagnosis: Pain in right hip[ICD10: M25.551] Maria Victoria Harrell MD, [facility] CPT- 4: 27736 08/30/2016 ([id number]) 61458 EST. PATIENT, LEVEL III Diagnosis: Pain in left forearm[ICD10: M79.632] Diagnosis: Dysuria[ICD10: R30.0] [facility] CPT-4: 88854 07/13/2016 ([id number]) 01759 EST. PATIENT, LEVEL III Diagnosis: Type 2 diabetes mellitus with hyperglycemia[ICD10: E11.65] Diagnosis: Essential tremor[ICD10: G25.0] Diagnosis: Encounter for immunization[ICD10: Z23] Diagnosis: Essential (primary) hypertension[ICD10: I10] [facility] CPT-4: 21888 05/24/2016 ([id number]) 55344 EST. PATIENT, LEVEL IV Diagnosis: Type 2 diabetes mellitus with hyperglycemia[ICD10: E11.65] Diagnosis: Essential (primary) hypertension[ICD10: I10] Diagnosis: Dorsalgia, unspecified[ICD10: M54.9] [facility] CPT- 4: 01718 01/24/2016 ([id number]) 94630 EST. PATIENT, LEVEL IV Diagnosis: Type 2 diabetes mellitus with hyperglycemia[ICD10: E11.65] Diagnosis: Essential (primary) hypertension[ICD10: I10] Diagnosis: Dorsalgia, unspecified[ICD10: M54.9] Maria Victoria Harrell MD [facility] CPT- 4: 68058 10/27/2015 ([id number]) 95749 EST. PATIENT, LEVEL III Diagnosis: Type 2 diabetes mellitus with hyperglycemia[ICD10: E11.65] SHAILA Macedo MD CPT-4: 70372 09/21/2015 ([id number]) 58412 EST. PATIENT, LEVEL IV Diagnosis: Type 2 diabetes mellitus with hyperglycemia[ICD10: E11.65] Diagnosis: Essential (primary) hypertension[ICD10: I10] Maria Victoria Harrell MD [facility] CPT-4: 83191 08/17/2015 ([id number]) 35925 EST. PATIENT, LEVEL IV Diagnosis: VACCIN FOR INFLUENZA[ICD10: Z23] Diagnosis: Type 2 diabetes mellitus with hyperglycemia[ICD10: E11.65] Diagnosis: Morbid (severe) obesity due to excess calories[ICD10: E66.01] Diagnosis: Dorsalgia, unspecified[ICD10: M54.9] Maria Victoria Harrell MD [facility] CPT- 4: 40885 07/20/2015 ([id number]) 22236 EST. PATIENT, LEVEL IV Diagnosis: Diabetes mellitus type 2, uncontrolled[ICD9: 250.02] Diagnosis: ESSENTIAL HYPERTENSION[ICD9: 401.9] Diagnosis: MORBID OBESITY[ICD9: 278.01] Diagnosis: Peripheral neuropathic pain[ICD9: 356.9] Diagnosis: Diabetic neuropathy[ICD9: 250.60] Maria Victoria Harrell MD, [facility] CPT- 4: 11429 04/20/2015 ([id number]) Miscellaneous no charge Diagnosis: Cerumen impaction[ICD9: 380.4] Maria Victoria Harrell MD [facility] CPT-4: 86747 02/28/2015 ([id number]) 33365 EST. PATIENT, LEVEL IV Diagnosis: Diabetes mellitus type 2, uncontrolled[ICD9: 250.02] Diagnosis: ESSENTIAL HYPERTENSION[ICD9: 401.9] Maria Victoria Harrell MD [facility] CPT- 4: 66659 02/14/2015 ([id number]) 08141 EST. PATIENT, LEVEL III Diagnosis: Diabetes mellitus type 2, uncontrolled[ICD9: 250.02] Maria Victoria Harrell MD [facility] CPT-4: 81921 11/11/2014 ([id number]) 87546 EST. PATIENT, LEVEL IV Diagnosis: ESSENTIAL HYPERTENSION[ICD9: 401.9] Diagnosis: DIABETES TYPE II[ICD9: 250.00] Diagnosis: Esophageal reflux[ICD9: 530.81] Diagnosis: DYSPHAGIA NEC[ICD9: 787.29] Maria Victoria Harrell MD, [facility] CPT-4: 10083 10/04/2014 ([id number]) 63922 EST. PATIENT, LEVEL IV Diagnosis: DIABETES TYPE II[ICD9: 250.00] Diagnosis: ESSENTIAL HYPERTENSION[ICD9: 401.9] Diagnosis: BPH (benign prostatic hyperplasia)[ICD9: 600.00] Maria Victoria Harrell MD [facility] CPT-4: 01583 08/02/2014 ([id number]) 03309 EST. PATIENT, LEVEL III Diagnosis: Enlarged prostate[ICD9: 600.00] Maria Victoria Harrell MD [facility] CPT-4: 77538 06/15/2014 ([id number]) 49802 EST. PATIENT, LEVEL III Diagnosis: Right hip pain[ICD9: 719.45] Diagnosis: BACKACHE[ICD9: 724.5] Diagnosis: Sacroiliitis[ICD9: 720.2] Sunitha Harrell MD, [facility] CPT-4: 25082 05/04/2014 ([id number]) 32902 EST. PATIENT, LEVEL IV Diagnosis: DM W/O COMPLICATION TYPE II, UNCONTROLLED[ICD9: 250.02] Diagnosis: ESSENTIAL HYPERTENSION[ICD9: 401.9] Maria Victoria Harrell MD, [facility] CPT- 4: 62250 04/19/2014 ([id number]) 80414 EST. PATIENT, LEVEL IV Diagnosis: Mild cognitive impairment[ICD9: 331.83] Diagnosis: Nightmares[ICD9: 307.47] Diagnosis: Sleep apnea[ICD9: 780.57] Maria Victoria Harrell MD [facility] CPT-4: 24532 02/08/2014 ([id number]) 98748 EST. PATIENT, LEVEL III Diagnosis: DM W/O COMPLICATION TYPE II, UNCONTROLLED[ICD9: 250.02] Maria Victoria Harrell MD [facility] CPT-4: 83087 01/13/2014 ([id number]) 44518 EST. 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 PATIENT, LEVEL IV Diagnosis: DIABETES TYPE II[SNOMED: 566178659] Diagnosis: ESSENTIAL HYPERTENSION[SNOMED: 17667945] Diagnosis: Flat feet[ICD9: 734] [facility] CPT-4: 78832 07/01/2013 ([id number]) Miscellaneous no charge Diagnosis: DM W/O COMPLICATION TYPE II, UNCONTROLLED[SNOMED: 28057630] Diagnosis: MORBID OBESITY[ICD9: 278.01] Maria Victoria Harrell MD [facility] CPT-4: 88679 05/13/2013 ([id number]) Miscellaneous no charge Diagnosis: MORBID OBESITY[ICD9: 278.01] [facility] CPT-4: 34680 04/15/2013 ([id number]) 24287 EST. PATIENT, LEVEL III Diagnosis: DM W/O COMPLICATION TYPE II, UNCONTROLLED[SNOMED: 43259734] Diagnosis: Dietary restriction[ICD9: V65.3] Diagnosis: Morbid obesity with BMI of 40.0-44.9, adult[ICD9: 278.01] [facility] CPT-4: 71452 03/04/2013 ([id number]) 83719 EST. PATIENT, LEVEL IV Diagnosis: DM W/O COMPLICATION TYPE II, UNCONTROLLED[SNOMED: 97683845] Diagnosis: ENTHESOPATHY OF HIP[ICD9: 726.5] Diagnosis: BACKACHE[ICD9: 724.5] [facility] CPT-4: 48945 02/04/2013 ([id number]) 08258 EST. PATIENT, LEVEL III Diagnosis: DM W/O COMPLICATION TYPE II, UNCONTROLLED[SNOMED: 22394705] Maria Victoria Harrell MD, [facility] CPT-4: 70257 12/03/2012 ([id number]) 27750 EST. PATIENT, LEVEL III Diagnosis: Tinnitus[ICD9: 388.30] Diagnosis: Cerumen impaction[ICD9: 380.4] Sunitha Harrell MD, [facility] CPT-4: 99623 10/14/2012 ([id number]) 97762 EST. PATIENT, LEVEL III Diagnosis: ENTHESOPATHY OF HIP[ICD9: 726.5] Diagnosis: JOINT PAIN-PELVIS[ICD9: 719.45] Maria Victoria Harrell MD, [facility] CPT-4: 08048 09/29/2012 56337 EST. PATIENT, LEVEL II Diagnosis: Right hip pain[ICD9: 719.45] Diagnosis: Bursitis of hip, right[ICD9: 726.5] Diagnosis: DM W/O COMPLICATION TYPE II, UNCONTROLLED[SNOMED: 83885077] Sunitha Harrell MD, [facility] CPT-4: 85489 09/25/2012 ([id number]) 58863 EST. PATIENT, LEVEL III Diagnosis: DM W/O COMPLICATION TYPE II, UNCONTROLLED[SNOMED: 78581508] Maria Victoria Harrell MD, [facility] CPT-4: 30824 08/27/2012 ([id number]) 45167 EST. PATIENT, LEVEL III Diagnosis: Diabetes mellitus out of control[SNOMED: 75464154] Maria Victoria Harrell MD, [facility] CPT-4: 46923 06/25/2012 ([id number]) 34655 EST. PATIENT, LEVEL III Diagnosis: DM W/O COMPLICATION TYPE II, UNCONTROLLED[SNOMED: 87760099] Diagnosis: ESSENTIAL HYPERTENSION[SNOMED: 76931444] Maria Victoria Harrell MD, [facility] CPT-4: 56166 06/03/2012 ([id number]) 48723 EST. PATIENT, LEVEL III Diagnosis: DM W/O COMPLICATION TYPE II, UNCONTROLLED[SNOMED: 77841211] Diagnosis: Back pain[ICD9: 724.5] Maria Victoria Harrell MD, [facility] CPT-4: 90106 04/24/2012 ([id number]) 13923 EST. PATIENT, LEVEL IV Diagnosis: BACKACHE[ICD9: 724.5] Diagnosis: MORBID OBESITY[ICD9: 278.01] Diagnosis: Depression[ICD9: 311] Maria Victoria Harrell MD, [facility] CPT-4: 82854 04/09/2012 ([id number]) 80999 EST. PATIENT, LEVEL IV Diagnosis: Diabetes mellitus type 2, uncontrolled[SNOMED: 95306474] Diagnosis: ESSENTIAL HYPERTENSION[SNOMED: 56339479] Maria Victoria Harrell MD, [facility] CPT-4: 07836 03/04/2012 ([id number]) 79751 EST. PATIENT, LEVEL IV Diagnosis: DM W/O COMPLICATION TYPE II, UNCONTROLLED[SNOMED: 19509966] Diagnosis: MORBID OBESITY[ICD9: 278.01] Maria Victoria Harrell MD, [facility] CPT-4: 60106 12/03/2011 ([id number]) 63175 EST. PATIENT, LEVEL IV Diagnosis: DM W/O COMPLICATION TYPE II, UNCONTROLLED[SNOMED: 21986098] Diagnosis: ESSENTIAL HYPERTENSION[SNOMED: 54222877] Diagnosis: Hyperlipidemia[ICD9: 272.4] Diagnosis: Morbid obesity[ICD9: 278.01] Maria Victoria Harrell MD, [facility] CPT-4: 40011 10/31/2011 ([id number]) 21877 EST. PATIENT, LEVEL IV Diagnosis: ESSENTIAL HYPERTENSION[SNOMED: 05575677] Diagnosis: DM W/O COMPLICATION TYPE II, UNCONTROLLED[SNOMED: 94535338] Diagnosis: MORBID OBESITY[ICD9: 278.01] Maria Victoria Harrell MD, [facility] CPT-4: 78354 08/29/2011 89420 EST. PATIENT, LEVEL IV Diagnosis: Diabetes mellitus type 2, uncontrolled[SNOMED: 15788001] Diagnosis: ESSENTIAL HYPERTENSION[SNOMED: 60232390] Diagnosis: Actinic keratosis[ICD9: 702.0] Maria Victoria Harrell MD, [facility] CPT-4: 51483 07/18/2011 Plan of Care Planned Activity Notes [...] change in blood pressure readings at home. 02/10/2019 Patient Education: Patient Medication Summary Completed 02/10/2019 Visit Plan: UTI -positive klebsiella and pseudomonas-patient is not on oral abx from the hospital-sensitive to levaquin -rx sent electronically and instructed patient on use-start probiotic while on the antibiotics. Syncope -patient had monitor placed and will follow up with Dr Cat in 2 weeks -no driving until next appointment Open wound of abdomen -post surgical excision of cystic tissue -wound vac until wound heals ADDENDUM: Doctor's eval of the patient - I, Dr. Harrell, personally evaluated the patient with the nurse practitioner. I have reviewed the patient's chart, I have reviewed the patient's past medical history, problem list, medication list, and personal history. I agree with the documentation by the nurse practitioner in the HPI, physical exam, and the assessment and plan. 01/26/2019 Visit Plan: UTI -positive klebsiella and pseudomonas-patient is not on oral abx from the hospital-sensitive to levaquin -rx sent electronically and instructed patient on use-start probiotic while on the antibiotics. Syncope -patient had monitor placed and will follow up with Dr Cat in 2 weeks -no driving until next appointment Open wound of abdomen -post surgical excision of cystic tissue -wound vac until wound heals 01/26/2019 Appointment: Sunitha Moran WPtel: [address] [place], [place] [phone] (30 min) [facility] 01/26/2019 Patient Education: Patient Medication Summary Completed 01/26/2019 Visit Plan: Diabetes mellitus - has improved [...] 01/08/2019 Appointment: Maria Victoria [facility]el[facility] [phone] [facility] (30 min) Complex 01/08/2019 Patient Education: Patient Medication Summary Completed 01/08/2019 Patient Education: Diabetes Completed 01/08/2019 Patient Education: Obesity Completed 01/08/2019 Patient Education: Patient Medication Summary Completed 01/07/2019 Appointment: Maria Victoria Harrell [facility]Ptel: [phone] [facility] (15 min) Moderate 11/10/2018 Visit Plan: [...] 10/09/2018 Appointment: Maria Victoria Harrell [facility]Ptel[facility] [phone] [facility] (30 min) Complex 10/09/2018 Patient Education: Patient Medication Summary Completed 10/09/2018 Patient Education: Diabetes Completed 10/09/2018 Patient Education: Cholesterol Management Completed 10/09/2018 Care Plan: Referral Order SNOMED-CT : 182661588 Pending 10/09/2018 Patient Education: Patient Medication Summary [...] 07/07/2018 Appointment: Maria Victoria Harrell WPtel: [phone] [facility] [place] (15 min) Moderate 07/07/2018 Patient [...] disease. 05/21/2018 Appointment: Maria Victoria Harrell WPtel: [address] [place], [place] [id number] (15 min) Moderate 05/21/2018 Patient Education: Patient [...] 03/06/2018 Appointment: Maria Victoria Harrell [facility]Ptel: [phone] [facility] (15 min) Moderate 03/06/2018 Patient Education: Patient Medication Summary Completed 03/06/2018 Patient Education: Obesity Completed 03/06/2018 Patient Education: Patient Medication Summary Completed 03/03/2018 Care Plan: %Hba1C [facility] : 56185-0 Pending 03/03/2018 Visit Plan: Medicare Exam - [...] Appointment: Sunith[facility] Moran [facility]el[phone] [phone] [facility] - Annual Wellness Visit 12/19/2017 Visit Plan: [...] naproxen. 11/21/2017 Appointment: Maria Victoria Harrell WPtel: [phone] [facility] (15 min) Moderate 11/21/2017 Patient Education: [...] 07/29/2017 Appointment: Maria Victoria Harrell WPtel: [phone] [facility] (15 min) Moderate 07/29/2017 Patient Education: Patient Medication Summary Completed 07/29/2017 Patient Education: Obesity Completed 07/29/2017 Visit Plan: Skin tag removed - pt tolerated procedure well - Wound Instructions - Pt was instructed to keep the wound clean, wash with antibacterial soap, use triple antibiotic ointment, call if redness, pustular drainage, or any other acute concerns. 07/02/2017 Appointment: Zunilda Carrillo WPtel: [phone] [facility] (30 min) Complex 07/02/2017 Patient Education: Patient Medication Summary Completed 07/02/2017 Appointment: Injection 06/28/2017 Patient Education: Patient Medication Summary Completed 06/28/2017 Visit Plan: Sciatica- exercises discussed with the patient, pt to continue with antiinflammatories. Pt is to call if the symptoms do not improve or if they worsen. Kenalog injection today in the office. 06/04/2017 Appointment: Sunitha Moran WPtel: [phone] [phone] [place] (30 min) Complex 06/04/2017 Patient [...] and copy given to patient for his evaluation advisor. Hypertension - well controlled - continue with current medications, continue with no added salt diet. Pt has been encouraged to exercise daily. The pt has been advised to call the office if there are any acute concerns about change in blood pressure readings at home. 04/03/2017 Appointment: Maria Victoria Harrell WPtel: [phone] [facility] [place] (15 min) Moderate 04/03/2017 Patient Education: [...] care surrogate. 12/13/2016 Appointment: Sunitha Moran WPtel: [phone] [facility] - Annual Wellness Visit 12/13/2016 Patient Education: Patient Medication Summary Completed 12/13/2016 Care Plan: Referral Order SNOMED-CT : [id number] Pending 12/13/2016 Visit Plan: Hypertension - well [...] controlled. 12/05/2016 Appointment: Maria Victoria Harrell WPtel: [phone] [facility] [place] (15 min) Moderate 12/05/2016 Patient Education: Patient Medication Summary Completed 12/05/2016 Patient Education: Obesity Completed 12/05/2016 Care Plan: CT ABD & PELVIS W/O CONTRAST LOINC : 97983-0 Pending 12/05/2016 Patient Education: Patient Medication Summary [...] care 08/30/2016 Appointment: Maria Victoria Harrell WPtel: [phone] [facility] [place] (15 min) Moderate 08/30/2016 Patient Education: Patient Medication Summary Completed 08/30/2016 Patient Education: Obesity Completed 08/30/2016 Patient Education: Hypertension Completed 08/30/2016 Patient Education: Patient Medication Summary Completed 08/23/2016 Visit Plan: Left forearm pain-use voltaren gel as needed-xray forearm for further evaluation UA negative-patient instructed to increase po fluids-call if symptoms do not resolve 07/13/2016 Appointment: Sunitha Moran WPtel: [phone] [phone] [place] (10 min) Simple 07/13/2016 Patient Education: [...] process. 06/21/2016 Appointment: Sunitha Moran WPtel: [phone] [phone] (30 min) Complex 06/21/2016 Patient Education: Patient Medication Summary Completed 06/21/2016 Appointment: Sunitha Moran WPtel: [phone] [phone] (30 min) Complex 06/15/2016 Visit Plan: Hypertension [...] improve. 01/24/2016 Appointment: Maria Victoria Harrell WPtel: [phone] [facility] (15 min) Moderate 01/24/2016 Patient Education: Patient [...] improve. 10/27/2015 Appointment: Maria Victoria Harrell WPtel: [phone] [facility] [place] (15 min) Moderate 10/27/2015 Patient Education: [...] insurance how much this will cost you retirement decrease toujeo to 40 units daily increase novolin to 8units in the morning, 10 units at lunch and 8 units at supper 09/21/2015 Appointment: Maria Victoria Harrell WPtel: [phone] [facility] [place] (15 min) Moderate 09/21/2015 Patient [...] home. 08/17/2015 Appointment: Maria Victoria Harrell WPtel: [phone] [facility] [place] (15 min) Moderate 08/17/2015 Patient [...] belviq 07/20/2015 Appointment: Maria Victoria Harrell WPtel: [phone] [facility] (15 min) Moderate 07/20/2015 Patient Education: [...] 04/20/2015 Appointment: Maria Victoria Harrell WPtel: [phone] [facility] [place] (15 min) Moderate 04/20/2015 Patient [...] 02/14/2015 Appointment: Maria Victoria Harrell WPtel: [phone] [facility] Follow up 02/14/2015 Patient Education: Patient [...] 11/11/2014 Appointment: Maria Victoria Harrell WPtel: [phone] [facility] [place] Follow up 11/11/2014 Patient Education: Patient Medication Summary Completed 11/11/2014 Appointment: Maria Victoria Harrell WPtel: [phone] [facility] [place] Follow up 11/04/2014 Visit Plan: Esophageal [...] home. 10/04/2014 Appointment: Maria Victoria Harrell WPtel: [facility] [facility] Follow up 10/04/2014 Patient Education: Patient Medication Summary Completed 10/04/2014 Patient Education: Hypertension Completed 10/04/2014 Appointment: Maria Victoria Harrell WPtel: [address] [place] [id number] Follow up 08/19/2014 Visit Plan: Diabetes Mellitus [...] avodart 08/02/2014 Appointment: Maria Victoria Harrell WPtel: [facility]3 [facility] Sick 08/02/2014 Patient Education: Patient Medication Summary Completed 08/02/2014 Patient Education: Hypertension Completed 08/02/2014 Visit Plan: Enlarged prostate with decreased urine flow - recommended that the patient start on tamsulosin 0.4mg daily - will need to start him on this in about 2-3 weeks. Check PSA in 2-3 weeks. 06/15/2014 Appointment: Maria Victoria Harrell WPtel: [facility] [facility] Follow up 06/15/2014 Patient Education: Patient Medication Summary Completed 06/15/2014 Appointment: Maria Victoria Harrell WPtel: [facility] [facility] [place] Injection 06/03/2014 Patient Education: Patient [...] - pt to see this Opthamologist in [place] - May 25. 04/19/2014 Appointment: Maria Victoria Harrell WPtel: [facility] [facility] Follow up 04/19/2014 Patient Education: Patient [...] 02/08/2014 Appointment: Maria Victoria Harrell WPtel: [phone] [facility] Follow up 02/08/2014 Patient Education: Patient [...] 01/13/2014 Appointment: Maria Victoria Harrell WPtel: [phone] [facility] [place] Follow up 01/13/2014 Patient Education: [...] - recommended referral to Dr. Fine at [facility]. 10/14/2013 Patient Education: Patient [...] support. 07/01/2013 Appointment: Maria Victoria Harrell WPtel: [address] [place], [place] [phone] Follow up 07/01/2013 Patient Education: Patient Medication Summary Completed 07/01/2013 Patient Education: Hypertension Completed 07/01/2013 Appointment: Maria Victoria Harrell WPtel: [address] [place], [place] [phone] Other 05/13/2013 Patient Education: Patient Medication Summary Completed 05/13/2013 Appointment: Maria Victoria Harrell WPtel: [address] [place], [place] [phone] Other 04/15/2013 Patient Education: Patient Medication Summary [...] 03/04/2013 Appointment: Maria Victoria Harrell WPtel: [phone] [facility] Follow up 03/04/2013 Patient Education: Patient [...] 02/04/2013 Appointment: Maria Victoria Harrell WPtel: [phone] [facility] Follow up 02/04/2013 Patient Education: Patient [...] bedtime. 12/03/2012 Appointment: Maria Victoria Harrell WPtel: [address] [place], [place] [phone] Follow up 12/03/2012 Patient Education: Patient Medication Summary Completed 12/03/2012 Visit Plan: Tinnitus-cerumen impaction-cerumen adhered to left TM-discussed using sweet oil nightly for the next week and call if symptoms have not improved. Patient verbalized understanding of plan . 10/14/2012 Appointment: Sunitha Moran WPtel: [address] [place], [place] [phone] Sick 10/14/2012 Patient Education: Patient Medication Summary Completed 10/14/2012 Visit Plan: Arthritis- occasionally uncontrolled symptoms- recommend pt to take antiinflammatory as directed for pain control. Use tylenol for break through pain symptoms. 09/29/2012 Appointment: Maria Victoria Harrell WPtel: [address] [place], [place] [phone] Other 09/29/2012 Patient Education: Patient Medication Summary [...] blood sugars 09/25/2012 Appointment: Sunitha Moran WPtel: [address] [place], [place] [phone] Other 09/25/2012 Patient Education: Patient Medication Summary [...] 08/27/2012 Appointment: Maria Victoria Harrell WPtel: [phone] [facility] Follow up 08/27/2012 Patient Education: Patient [...] 06/25/2012 Appointment: Maria Victoria Harrell [facility]Ptel: [phone] [facility] Follow up 06/25/2012 Patient Education: Patient [...] 06/03/2012 Appointment: Maria Victoria Harrell WPtel: [phone] [facility] [place] Follow up 06/03/2012 Patient Education: Patient [...] pain. 04/24/2012 Appointment: Maria Victoria Harrell WPtel: [facility]5 [facility] Follow up 04/24/2012 Patient Education: Patient Medication [...] improve. 04/09/2012 Appointment: Maria Victoria Harrell WPtel: [facility]5 [facility] [place] Other 04/09/2012 Patient Education: Patient Medication Summary Completed 04/09/2012 Patient Education: .Amazing charts Exercise for Sciatica Completed 04/09/2012 Appointment: Sunitha Moran WPtel: [facility]9 [phone] [place] Other 03/13/2012 Visit Plan: Diabetes [...] pain. 03/04/2012 Appointment: Maria Victoria Harrell WPtel: [address] [place] [address] Other 03/04/2012 Patient Education: Patient Medication Summary [...] pains/fatigue. 12/03/2011 Appointment: Maria Victoria Harrell WPtel: [facility]7 [facility] Other 12/03/2011 Patient Education: Patient Medication Summary Completed 12/03/2011 Appointment: Maria Victoria Harrell WPtel: [facility]8 [facility] Other 11/06/2011 Visit Plan: Diabetes Mellitus - [...] further investigative studies planned by his current cytogenetics laboratory manager. 10/31/2011 Appointment: Maria Victoria Harrell [facility]Ptel: [phone] [facility] Other 10/31/2011 Patient Education: Patient Medication [...] check. 08/29/2011 Appointment: Maria Victoria Harrell WPtel: [phone] [facility]66[facility] Other 08/29/2011 Patient Education: Patient Medication Summary Completed 08/29/2011 Patient Education: High Blood Pressure: Essential Hypertension Completed 08/29/2011 Visit Plan: left index finger irritated actinic keratosis removed actinic keratosis removed from dorsum of hand as well and in web of the 4th digit 07/24/2011 Appointment: Maria Victoria Harrell WPtel: [facility] Surgical Procedure 07/24/2011 Patient Education: Patient [...] daily. 07/18/2011 Appointment: Maria Victoria Harrell WPtel: [phone] [facility]66[facility] Other 07/18/2011 Patient Education: Patient Medication Summary Completed 07/18/2011 Patient Education: High Blood Pressure: Essential Hypertension Completed 07/18/2011 Referral: JoseM anuel Referral Appointment Requested Referral: [facility] Referral Appointment Requested Referral: Kiran Laird [...] 10mg twice daily - see cost at [facility] . Diabetes Mellitus - Uncontrolled - [...] call if symptoms do not improve. . UTI -positive klebsiella and pseudomonas-patient is not on oral abx from the hospital-sensitive to levaquin -rx sent electronically and instructed patient on use-start probiotic while on the antibiotics. Syncope -patient had monitor placed and will follow up with Dr Cat in 2 weeks -no driving until next appointment Open wound of abdomen -post surgical excision of cystic tissue -wound vac until wound heals ADDENDUM: Doctor's eval of the patient - I, Dr. Harrell, personally evaluated the patient with the nurse practitioner. I have reviewed the patient's chart, I have reviewed the patient's past medical history, problem list, medication list, and personal history. I agree with the documentation by the nurse practitioner in the HPI, physical exam, and the assessment and plan. LEVAQUIN 500MG DAILY X 7 DAYS GET A PROBIOTIC OVER THE COUNTER TO TAKE WHILE ON THE ANTIBIOTIC - THIS WILL HELP PREVENENT DIARRHEA . UTI -positive klebsiella and pseudomonas-patient is not on oral abx from the hospital- sensitive to levaquin -rx sent electronically and instructed patient on use- start probiotic while on the antibiotics. Syncope -patient had monitor placed and will follow up with Dr Cat in 2 weeks -no driving until next appointment Open wound of abdomen -post surgical excision of cystic tissue -wound vac until wound heals decrease toujeo to 25 units next week [...] further investigative studies planned by his current cytogenetics laboratory manager. . Diabetes Mellitus - controlled - per [...] change in blood pressure readings at home. Pt is to INCREASE HIS LANTUS TO [...] and copy given to patient for his evaluation advisor. Hypertension - well controlled - continue with [...] units increase was made. Dr. Mai at [facility] - Cardiothoracic surgeon. . 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 BRING IN THE GLUCOMETER [...] - recommended referral to Dr. Fine at [facility]. [employer] [...]
--- OUTSIDE RECORDS SUMMARY | 2019-02-27 20:50 | XMS REPORT | CCD ---
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 [place] Name Role Phone PP Unavailable CCM Unavailable Summary Purpose Interface Exchange Insurance Providers Payer name Policy type / Coverage type Covered alliance party ID Effective Begin Date Effective End Date WPS Medicare Part B Medicare Part B [id number] Unknown [facility] Medicare Part B [id number] Unknown Family history Nephew Diagnosis Age At [...] Unknown Retired 07/18/[address]: 043068592 Never smoker 07/18/[address]: 205346688 Never drinks alcohol 07/18/2011 Has the patient [...] Codes Condition Status Onset Date Resolved Date Infection following a procedure, other surgical site, initial encounter ICD-9: 998.59 ICD-10: T81.49XA Active 01/26/2019 Unknown Syncope and collapse ICD- 9: 780.2 ICD-10: R55 Active 01/26/2019 Unknown Urinary tract infection, site not specified ICD-9: 599.0 ICD-10: N39.0 Active 01/26/2019 Unknown Essential (primary) hypertension ICD-9: 401.1 ICD-10: [...] Problems Condition Codes Effective Dates Condition Status Infection following a procedure, other surgical site, initial encounter ICD-9: 998.59 ICD-10: T81.49XA 01/26/2019 Active Syncope and collapse ICD- 9: 780.2 ICD-10: R55 01/26/2019 Active Urinary tract infection, site not specified ICD-9: 599.0 ICD-10: N39.0 01/26/2019 Active Essential (primary) hypertension ICD-9: 401.1 ICD-10: [...] Fill Instructions Levaquin 500 mg tablet RxNorm: 283910 1 Tablet(s) PO daily 01/26/2019 02/01/2019 Inactive Voltaren 1 % topical gel RxNorm: 923255 4 Gram(s) TOP QID 01/13/2019 01/07/2020 Active [SAVINGS FOR NON-COVERED DRUGS -- BIN:[id number], PCN: ASPROD1, Group: XXXXX, ID# [id number], Questions: . THIS IS NOT INSURANCE.] finasteride 1 mg tablet RxNorm: 211172 1 Tablet(s) PO daily 10/28/2018 01/20/2020 Active irbesartan 300 mg tablet RxNorm: 382131 1 Tablet(s) PO daily 10/28/2018 01/20/2020 Active lovastatin 20 mg tablet RxNorm: 953880 1 Tablet(s) PO QHS 10/28/2018 01/20/2020 Active metformin 1,000 mg tablet RxNorm: 315684 1 Tablet(s) PO BID 10/28/2018 01/20/2020 Active Zachary Mahan U-300 Insulin 300 unit/mL (1.5 mL) subcutaneous pen RxNorm: 7486211 30 Unit(s) SQ daily 10/09/2018 01/07/2019 Inactive 90 day supply needle (disp) 31 gauge x 5/16" RxNorm: 1 Miscellaneous TID 02/10/2018 01/07/2019 Inactive finasteride 1 mg tablet RxNorm: 269787 1 Tablet(s) PO daily 12/25/2017 12/24/2017 Inactive D/C dutasteride finasteride 1 mg tablet RxNorm: 945271 1 Tablet(s) PO daily 12/25/2017 10/27/2018 Inactive D/C dutasteride Novolin R Regular U-100 Insulin 100 unit/mL injection solution RxNorm: 876599 10 Unit(s) Inj QAM 12 units at lunch and 10 units at supper 11/25/2017 09/22/2018 Inactive amoxicillin 500 mg capsule RxNorm: 053336 1 Capsule(s) PO QID 11/21/2017 11/30/2017 Inactive naproxen 500 mg tablet RxNorm: 473270 1 Tablet(s) PO BID 11/21/2017 12/04/2017 Inactive Novolin R Regular U-100 Insulin 100 unit/mL injection solution RxNorm: 336785 8 10 Unit(s) Inj QAM 12 units at lunch and 10 units at supper 11/21/2017 11/24/2017 Inactive Insulin Syringe 0.3 mL 29 X 5/16" RxNorm: 1 injection SQ TID 10/01/2017 01/07/2019 Inactive Voltaren 1 % topical gel RxNorm: 189024 4 Gram(s) TOP QID 09/27/2017 12/20/2018 Inactive [SAVINGS FOR NON-COVERED DRUGS -- BIN:[id number], PCN: ASPROD1, Group: XXXXX, ID# [id number], Questions: . THIS IS NOT INSURANCE.] Trueresult Blood Glucose System RxNorm: 1 test Miscellaneous QID insulin dependent diabetes 09/27/2017 09/21/2018 Inactive Protonix 40 mg tablet,delayed release RxNorm: 555394 1 Tablet(s) PO daily 09/27/2017 12/20/2018 Inactive Toujeo SoloStar U-300 Insulin 300 unit/mL (1.5 mL) subcutaneous pen RxNorm: 4203289 45 Unit(s) SQ daily 09/27/2017 10/08/2018 Inactive 90 day supply lovastatin 20 mg tablet RxNorm: 365855 1 Tablet(s) PO QHS 09/27/2017 10/27/2018 Inactive Insulin Syringe 0.3 mL 29 X 5/16" RxNorm: 1 injection SQ BID 09/27/2017 09/30/2017 Inactive irbesartan 300 mg tablet RxNorm: 946705 1 Tablet(s) PO daily 09/27/2017 10/27/2018 Inactive Novolin R 100 unit/mL injection solution RxNorm: 865216 8 Unit(s) Inj QAM 10 units at lunch and 8 units at supper 09/27/2017 11/20/2017 Inactive dutasteride 0.5 mg capsule RxNorm: 830500 1 Capsule(s) PO daily 09/27/2017 12/24/2017 Inactive metformin 1,000 mg tablet RxNorm: 472918 1 Tablet(s) PO BID 09/27/2017 10/27/2018 Inactive magnesium oxide 400 mg tablet RxNorm: 724352 1 Tablet(s) PO daily 09/27/2017 12/20/2018 Inactive Voltaren 1 % topical gel RxNorm: 510166 4 Gram(s) TOP QID 07/23/2017 09/26/2017 Inactive [SAVINGS FOR NON-COVERED DRUGS -- BIN:[id number], PCN: ASPROD1, Group: XXXXX, ID# [id number], Questions: . THIS IS NOT INSURANCE.] Bactrim DS 800 mg-160 mg tablet RxNorm: 613670 1 Tablet(s) PO BID 07/02/2017 07/08/2017 Inactive Kenalog 40 mg/mL suspension for injection RxNorm: 5890285 1 Milliliter(s) Inj 06/04/2017 06/04/2017 Inactive Efudex 5 % topical cream RxNorm: 812283 1 TOP BID 12/05/2016 12/14/2016 Inactive Avapro 300 mg tablet RxNorm: 227703 Tablet(s) TAKE 1 TABLET BY MOUTH ONCE DAILY. 09/21/2016 09/15/2017 Inactive Toujeo SoloStar 300 unit/mL (1.5 mL) subcutaneous insulin pen RxNorm: 1135242 45 Unit(s) SQ daily 09/21/2016 09/15/2017 Inactive 90 day supply Novolin R 100 unit/mL injection solution RxNorm: 877931 8 Unit(s) Inj QAM 10 units at lunch and 8 units at supper 09/21/2016 09/15/2017 Inactive metformin 1,000 mg tablet RxNorm: 891350 Tablet(s) TAKE 1 TABLET BY MOUTH TWICE DAILY AFTER MEALS 09/21/2016 09/15/2017 Inactive lovastatin 20 mg tablet RxNorm: 921660 Tablet(s) TAKE ONE TABLET BY MOUTH ONCE DAILY. 09/21/2016 09/15/2017 Inactive dutasteride 0.5 mg capsule RxNorm: 933890 1 Capsule(s) PO daily 09/21/2016 09/15/2017 Inactive Toujeo SoloStar 300 unit/mL (1.5 mL) subcutaneous insulin pen RxNorm: 3935464 45 Unit(s) SQ daily 06/27/2016 09/20/2016 Inactive Kenalog 40 mg/mL suspension for injection RxNorm: 1788956 1 Milliliter(s) Inj 06/21/2016 06/21/2016 Inactive Toujeo SoloStar 300 unit/mL (1.5 mL) subcutaneous insulin pen RxNorm: 7070623 40 Unit(s) SQ daily 05/24/2016 06/26/2016 Inactive Novolin R 100 unit/mL injection solution RxNorm: 841815 8 Unit(s) Inj QAM 10 units at lunch and 8 units at supper 05/24/2016 09/20/2016 Inactive Bactrim DS 800 mg-160 mg tablet RxNorm: 017476 1 Tablet(s) PO BID 10/03/2015 01/31/2016 Inactive dutasteride 0.5 mg capsule RxNorm: 527445 1 Capsule(s) PO daily 09/26/2015 09/19/2016 Inactive dutasteride 0.5 mg capsule RxNorm: 273261 1 Capsule(s) PO daily 09/26/2015 09/25/2015 Inactive Avodart 0.5 mg capsule RxNorm: 065382 1 Capsule(s) PO QPM 09/21/2015 09/25/2015 Inactive Avapro 300 mg tablet RxNorm: 831770 Tablet(s) TAKE 1 TABLET BY MOUTH ONCE DAILY. 09/21/2015 09/14/2016 Inactive Generic For:AVAPRO 300MG 08/26/2015 9:53:42 AM lovastatin 20 mg tablet RxNorm: 306109 1 Tablet(s) TAKE ONE TABLET BY MOUTH ONCE DAILY. 09/21/2015 09/20/2016 Inactive Generic For:*MEVACOR 20MG 10/06/2014 12:16:37 PM Novolin R 100 unit/mL injection solution RxNorm: 365011 5 Unit(s) Inj QAM 8 units at lunch and 5 units at supper 09/21/2015 05/23/2016 Inactive metformin 1,000 mg tablet RxNorm: 833382 Tablet(s) TAKE 1 TABLET BY MOUTH TWICE DAILY AFTER MEALS 09/21/2015 09/20/2016 Inactive Generic For:*GLUCOPHAGE 1000MG 10/18/2014 5:26:11 PM Toujeo SoloStar 300 unit/mL (1.5 mL) subcutaneous insulin pen RxNorm: 2861611 60 Unit(s) SQ daily 09/21/2015 05/23/2016 Inactive 3 month supply DX 250.02 also needs pen needles to use daily dx 250.02 Novolin R 100 unit/mL injection solution RxNorm: 070965 5 Unit(s) Inj QAM 8 units at lunch and 5 units at supper 09/07/2015 09/20/2015 Inactive lovastatin 20 mg tablet RxNorm: 942977 Tablet(s) TAKE ONE TABLET BY MOUTH ONCE DAILY. 09/07/2015 09/20/2015 Inactive Generic For:*MEVACOR 20MG 10/06/2014 12:16:37 PM metformin 1,000 mg tablet RxNorm: 658632 Tablet(s) TAKE 1 TABLET BY MOUTH TWICE DAILY AFTER MEALS 09/07/2015 09/20/2015 Inactive Generic For:*GLUCOPHAGE 1000MG 10/18/2014 5:26:11 PM Toujeo SoloStar 300 unit/mL (1.5 mL) subcutaneous insulin pen RxNorm: 5731751 60 Unit(s) SQ daily 09/07/2015 09/20/2015 Inactive 3 month supply DX 250.02 also needs pen needles to use daily dx 250.02 Avapro 300 mg tablet RxNorm: 969077 TAKE 1 TABLET BY MOUTH ONCE DAILY. 08/26/2015 09/20/2015 Inactive Generic For:AVAPRO 300MG 08/26/2015 9:53:42 AM Avodart 0.5 mg capsule RxNorm: 568830 1 Capsule(s) PO QPM 08/17/2015 09/20/2015 Inactive Novolin R 100 unit/mL injection solution RxNorm: 967007 5 Unit(s) Inj QAM 8 units at lunch and 5 units at supper 08/17/2015 09/06/2015 Inactive Trueresult Blood Glucose System RxNorm: 1 test Miscellaneous QID insulin dependent diabetes 08/17/2015 08/10/2016 Inactive Avodart 0.5 mg capsule RxNorm: 785607 1 Capsule(s) PO QPM 08/14/2015 08/16/2015 Inactive Novolin R 100 unit/mL injection solution RxNorm: 311588 5 Unit(s) Inj TID with meals 07/20/2015 08/16/2015 Inactive Toujeo SoloStar 300 unit/mL (1.5 mL) subcutaneous insulin pen RxNorm: 1899332 60 Unit(s) SQ daily 07/20/2015 09/06/2015 Inactive one month supply DX 250.02 also needs pen needles to use daily dx 250.02 Bactrim DS 800 mg-160 mg tablet RxNorm: 230983 1 Tablet(s) PO BID 05/09/2015 05/15/2015 Inactive Bactrim DS 800 mg-160 mg tablet RxNorm: 058802 1 Tablet(s) PO BID 05/09/2015 05/08/2015 Inactive Bactrim DS 800 mg-160 mg tablet RxNorm: 282615 1 Tablet(s) PO BID 05/09/2015 05/08/2015 Inactive Toujeo SoloStar 300 unit/mL (1.5 mL) subcutaneous insulin pen RxNorm: 1754060 45u qdx3 days then 50u qdx 5 days then if fsbs >180 55u qd Unit(s) SQ daily 05/02/2015 07/19/2015 Inactive one month supply DX 250.02 also needs pen needles to use daily dx 250.02 Toujeo SoloStar 300 unit/mL (1.5 mL) subcutaneous insulin pen RxNorm: 5142280 45u qdx3 days then 50u qdx 5 days then if fsbs >180 55u qd Unit(s) SQ daily 05/02/2015 05/01/2015 Inactive one month supply DX 250.02 also needs pen needles to use daily dx 250.02 Belviq 10 mg tablet RxNorm: 3882387 1 Tablet(s) PO BID 04/20/2015 09/20/2015 Inactive Insulin Syringe 0.3 mL 29 X 5/16" RxNorm: 1 Miscellaneous BID 03/24/2015 04/16/2016 Inactive Lantus 100 unit/mL subcutaneous solution RxNorm: 707442 30 Unit(s) SQ BID 02/14/2015 05/01/2015 Inactive pt not ready for refill yet, when he is, please fill 25units bid Lantus 100 unit/mL subcutaneous solution RxNorm: 597584 28 Unit(s) SQ BID 11/11/2014 02/13/2015 Inactive pt not ready for refill yet, when he is, please fill 25units bid [SAVINGS FOR NON-COVERED DRUGS -- BIN:[id number], PCN: ASPROD1, Group: XXXXX, ID# [id number], Questions: . THIS IS NOT INSURANCE.] Voltaren 1 % topical gel RxNorm: 483400 4 Gram(s) TOP QID 11/11/2014 03/10/2015 Inactive [SAVINGS FOR NON-COVERED DRUGS -- BIN:[id number], PCN: ASPROD1, Group: XXXXX, ID# [id number], Questions: . THIS IS NOT INSURANCE.] metformin 1,000 mg tablet RxNorm: 614479 TAKE 1 TABLET BY MOUTH TWICE DAILY AFTER MEALS 10/19/2014 09/06/2015 Inactive Generic For:*GLUCOPHAGE 1000MG 10/18/2014 5:26:11 PM metformin 1,000 mg tablet RxNorm: 628440 Tablet(s) TAKE 1 TABLET BY MOUTH TWICE DAILY AFTER MEALS 10/18/2014 10/18/2014 Inactive Generic For:*GLUCOPHAGE 1000MG 04/16/2014 9:02:30 AM lovastatin 20 mg tablet RxNorm: 713113 TAKE ONE TABLET BY MOUTH ONCE DAILY. 10/07/2014 09/06/2015 Inactive Generic For:*MEVACOR 20MG 10/06/2014 12:16:37 PM lovastatin 20 mg tablet RxNorm: 227619 1 Tablet(s) PO daily TAKE ONE (1) TABLET BY MOUTH DAILY 10/06/2014 10/06/2014 Inactive Generic For:MEVACOR 20 MG TABLET Generic For:MEVACOR 20 MG TABLET 08/14/2013 8:06:44 AM Carafate 1 gram tablet RxNorm: 864851 1 Tablet(s) PO QID dissolve in 10mL of fluid, drink liquid carafate four times daily before meals and before bed 10/04/2014 11/10/2014 Inactive may dispense generic Avapro 300 mg tablet RxNorm: 427132 TAKE 1 TABLET BY MOUTH ONCE DAILY. 08/26/2014 08/20/2015 Inactive Generic For:AVAPRO 300MG 08/26/2014 9:03:29 AM Avodart 0.5 mg capsule RxNorm: 712506 1 Capsule(s) PO QPM 08/02/2014 07/27/2015 Inactive meloxicam 15 mg tablet RxNorm: 164962 TAKE 1 TABLET BY MOUTH ONCE DAILY. 06/11/2014 11/10/2014 Inactive Generic For:MOBIC 15MG 06/11/2014 9:05:37 AM Kenalog 40 mg/mL suspension for injection RxNorm: 0058125 1 Milliliter(s) Inj 05/04/2014 05/04/2014 Inactive Lantus Solostar 100 unit/mL (3 mL) subcutaneous insulin pen RxNorm: 109710 25 Unit(s) SQ BID 04/19/2014 02/13/2015 Inactive Lantus 100 unit/mL subcutaneous solution RxNorm: 390438 25 Unit(s) SQ BID break up lantus to two shots daily of 22 units each shot 04/19/2014 11/10/2014 Inactive pt not ready for refill yet, when he is, please fill 25units bid metformin 1,000 mg tablet RxNorm: 915709 TAKE 1 TABLET BY MOUTH TWICE DAILY AFTER MEALS 04/16/2014 10/12/2014 Inactive Generic For:*GLUCOPHAGE 1000MG 04/16/2014 9:02:30 AM Insulin Syringe 0.3 mL 29 X 5/16" RxNorm: 1 Miscellaneous BID 03/15/2014 03/23/2015 Inactive Insulin Syringe 0.3 mL 29 X 5/16" RxNorm: 1 Miscellaneous BID 03/15/2014 03/14/2014 Inactive meloxicam 15 mg tablet RxNorm: 605336 TAKE 1 TABLET EVERY DAY 03/15/2014 06/10/2014 Inactive Generic For:MOBIC 15MG 03/15/2014 9:06:35 AM Lantus 100 unit/mL subcutaneous solution RxNorm: 138531 22 Unit(s) SQ BID break up lantus to two shots daily of 22 units each shot 01/14/2014 04/18/2014 Inactive metformin 1,000 mg tablet RxNorm: 606644 Tablet(s) PO TAKE 1 TABLET BY MOUTH TWICE DAILY AFTER MEALS 01/07/2014 04/15/2014 Inactive Generic For:*GLUCOPHAGE 1000MG Lantus 100 unit/mL subcutaneous solution RxNorm: 193326 25 Unit(s) SQ BID break up lantus to two shots daily of 25 units each shot 09/30/2013 09/29/2013 Inactive Lantus 100 unit/mL subcutaneous solution RxNorm: 564567 25 Unit(s) SQ BID break up lantus to two shots daily of 25 units each shot 09/30/2013 01/13/2014 Inactive metformin 1,000 mg tablet RxNorm: 287899 1 Tablet(s) PO BID TAKE 1 TABLET BY MOUTH TWICE DAILY AFTER MEALS 09/30/2013 12/28/2013 Inactive Generic For:GLUCOPHAGE 1000MG TAB Generic For:GLUCOPHAGE 1000MG TAB Avapro 300 mg tablet RxNorm: 637981 Tablet(s) PO TAKE ONE (1) TABLET BY MOUTH DAILY 08/28/2013 08/25/2014 Inactive Generic For:*AVAPRO 300MG TAB Generic For:*AVAPRO 300MG TAB 08/28/2013 8:53:42 AM lovastatin 20 mg tablet RxNorm: 890194 Tablet(s) PO TAKE ONE (1) TABLET BY MOUTH DAILY 08/14/2013 10/05/2014 Inactive Generic For:MEVACOR 20 MG TABLET Generic For:MEVACOR 20 MG TABLET 08/14/2013 8:06:44 AM metformin 1,000 mg tablet RxNorm: 004026 Tablet(s) PO TAKE 1 TABLET BY MOUTH TWICE DAILY AFTER MEALS 07/16/2013 09/29/2013 Inactive Generic For:GLUCOPHAGE 1000MG TAB Generic For:GLUCOPHAGE 1000MG TAB Influenza Virus Vaccine 0.5 mL RxNorm: IM 07/01/2013 07/01/2013 Inactive Contour Test Strips RxNorm: strip miscellaneous USE TO TEST BLOOD SUGAR THREE TIMES DAILY DIRECTED 06/29/2013 03/14/2014 Inactive metformin 1,000 mg tablet RxNorm: 897165 Tablet(s) PO TAKE 1 TABLET BY MOUTH TWICE DAILY AFTER MEALS 04/14/2013 07/15/2013 Inactive Generic For:GLUCOPHAGE 1000MG TAB meloxicam 15 mg tablet RxNorm: 865396 Tablet(s) PO TAKE ONE TABLET BY MOUTH EVERY DAY 03/21/2013 03/14/2014 Inactive Generic For:MOBIC 15MG TAB 03/19/2013 8:10:41 AM Lantus 100 unit/mL subcutaneous solution RxNorm: 025748 25 Unit(s) SQ BID break up lantus to two shots daily of 25 units each shot 03/04/2013 06/01/2013 Inactive Insulin Syringe 0.3 mL 29 X 5/16" RxNorm: 1 Unit Dose Miscellaneous BID 02/04/2013 01/07/2019 Inactive Lantus 100 unit/mL Sub-Q RxNorm: 732606 20 Unit(s) SQ BID break up lantus to two shots daily of 20units each shot 02/04/2013 03/03/2013 Inactive topiramate 25 mg tablet RxNorm: 548001 1 Tablet(s) PO daily 02/04/2013 04/08/2013 Inactive metformin 1,000 mg tablet RxNorm: 739713 Tablet(s) PO TAKE 1 TABLET BY MOUTH TWICE DAILY AFTER MEALS 01/15/2013 04/13/2013 Inactive Generic For:GLUCOPHAGE 1000MG TAB Lantus 100 unit/mL Sub-Q RxNorm: 177265 30 Unit(s) SQ QPM 12/03/2012 01/01/2013 Inactive Kenalog 40 mg/mL Susp for Injection RxNorm: 7560547 1 Milliliter(s) Inj 09/25/2012 09/25/2012 Inactive Lantus 100 unit/mL Sub-Q RxNorm: 254817 25 Unit(s) SQ QPM 09/12/2012 10/11/2012 Inactive Avapro 300 mg tablet RxNorm: 572656 Tablet(s) PO TAKE ONE (1) TABLET BY MOUTH DAILY 09/03/2012 09/02/2012 Inactive Generic For:AVAPRO 300MG TAB Avapro 300 mg tablet RxNorm: 503576 Tablet(s) PO TAKE ONE (1) TABLET BY MOUTH DAILY 09/03/2012 08/27/2013 Inactive Generic For:AVAPRO 300MG TAB Lantus 100 unit/mL Sub-Q RxNorm: 246131 20 Unit(s) SQ QPM 08/27/2012 09/11/2012 Inactive Avapro 300 mg tablet RxNorm: 895491 1 Tablet(s) PO daily 08/27/2012 09/02/2012 Inactive Lantus 100 unit/mL Sub-Q RxNorm: 993336 15 Unit(s) SQ QPM 08/07/2012 08/26/2012 Inactive metformin 1,000 mg tablet RxNorm: 131630 Tablet(s) PO 07/18/2012 01/14/2013 Inactive TAKE 1 TABLET BY MOUTH TWICE DAILY AFTER MEALS;Generic For:GLUCOPHAGE 1,000 MG TABLET Lantus 100 unit/mL Sub-Q RxNorm: 230802 13 Unit(s) SQ QPM 06/25/2012 07/24/2012 Inactive lovastatin 20 mg tablet RxNorm: 407584 Tablet(s) PO 06/20/2012 07/14/2013 Inactive TAKE 2 TABLETS BY MOUTH AT BEDTIME;Generic For:MEVACOR 20 MG TABLET Pneumovax 23 25 mcg/0.5 mL Injection RxNorm: 167124 Milliliter(s) Inj 06/04/2012 06/04/2012 Inactive Influenza Virus Vaccine 0.5 mL RxNorm: IM 06/04/2012 06/04/2012 Inactive Insulin Syringe 0.3 mL 29 X 5/16" RxNorm: 1 Unit Dose Miscellaneous daily 06/03/2012 12/29/2012 Inactive lovastatin 20 mg tablet RxNorm: 912781 Tablet(s) PO 05/14/2012 06/19/2012 Inactive TAKE 2 TABLETS BY MOUTH AT BEDTIME;Generic For:MEVACOR 20 MG TABLET Contour Test Strips RxNorm: Miscellaneous TID 04/25/2012 05/24/2012 Inactive lovastatin 20 mg tablet RxNorm: 832994 Tablet(s) PO 04/16/2012 05/13/2012 Inactive TAKE 2 TABLETS BY MOUTH AT BEDTIME;Generic For:MEVACOR 20 MG TABLET metformin 1,000 mg tablet RxNorm: 705569 Tablet(s) PO 04/16/2012 07/17/2012 Inactive TAKE 1 TABLET BY MOUTH TWICE DAILY AFTER MEALS;Generic For:GLUCOPHAGE 1,000 MG TABLET citalopram 20 mg tablet RxNorm: 227873 1 Tablet(s) PO daily 04/09/2012 09/23/2012 Inactive meloxicam 15 mg Tab RxNorm: 294529 1 Tablet(s) PO daily 2012 03/04/2012 Inactive meloxicam 15 mg Tab RxNorm: 972213 Tablet(s) PO 2012 07/19/2015 Inactive TAKE 1 TABLET BY MOUTH DAILY;Generic For:MOBIC 15MG TAB WC meloxicam 15 mg tablet RxNorm: 211929 1 Tablet(s) PO daily 2012 03/04/2012 Inactive Rocephin 500 mg Solution for Injection RxNorm: 0274128 Inj 03/04/2012 03/04/2012 Inactive sulfamethoxazole 800 mg-trimethoprim 160 mg tablet RxNorm: 991215 1 Tablet(s) PO BID 03/04/2012 03/13/2012 Inactive metoprolol succinate ER 25 mg 24 hr Tab RxNorm: 113285 1 Tablet(s) PO daily 12/03/2011 11/16/2014 Inactive Byetta 10 mcg/0.04 mL per dose Sub-Q Pen Injector RxNorm: 358492 10 Microgram(s) SQ BID 10 meq twice daily before the two largest meals of the day. 12/03/2011 06/03/2012 Inactive Plavix 75 mg Tab RxNorm: 353414 1 Tablet(s) PO daily 12/03/2011 11/16/2014 Inactive lovastatin 20 mg tablet RxNorm: 069624 2 Tablet(s) PO daily 11/12/2011 04/15/2012 Inactive TAKE 2 TABLETS BY MOUTH DAILY AT BEDTIME;Generic For:MEVACOR 20 MG TABLET N O T I C E Last dispense quantity was less than original quantity written Avapro 300 mg tablet RxNorm: 021248 1 Tablet(s) PO daily 08/28/2011 08/21/2012 Inactive metformin 1,000 mg Tab RxNorm: 367134 1 Tablet(s) PO BID 07/09/2011 07/02/2012 Inactive Victoza 0.6 mg/0.1 mL (18 mg/3 mL) Sub-Q Pen Injector RxNorm: 134226 1.8 Milligram(s) SQ daily 06/20/2011 03/04/2012 Inactive Fish Oil 1,000 mg capsule RxNorm: 1 Capsule(s) PO BID No Start Date Active Ocuvite oral RxNorm: 439430 oral No Start Date Active aspirin 81 mg Cap, Delayed Release RxNorm: 251162 1 Capsule(s) PO daily No Start Date Active Sinemet 25 mg-100 mg tablet RxNorm: 972051 1 Tablet(s) PO TID No Start Date Active multivitamin tablet RxNorm: oral No Start Date Active B Complex 1 oral RxNorm: 73055 oral No Start Date Active Protonix 40 mg tablet,delayed release RxNorm: 974702 1 Tablet(s) PO daily No Start Date 09/26/2017 Inactive Bydureon 2 mg SubQ Susp RxNorm: 3042648 1 SQ QW No Start Date 06/03/2012 Inactive Avapro 150 mg Tab RxNorm: 782684 1 Tablet(s) PO daily No Start Date 03/04/2012 Inactive Travatan Z 0.004 % Eye Drops RxNorm: 005917 1 Drop(s) OPH daily No Start Date 06/14/2014 Inactive Farxiga 5 mg tablet RxNorm: 4676189 1 Tablet(s) PO QAM No Start Date 01/07/2019 Inactive potassium gluconate 595 mg (99 mg) tablet RxNorm: 329329 1 Tablet(s) PO daily No Start Date 01/07/2019 Inactive metformin 1,000 mg tablet RxNorm: 827719 1 Tablet(s) PO BID No Start Date 03/04/2012 Inactive magnesium oxide 400 mg tablet RxNorm: 477343 Tablet(s) PO No Start Date 09/26/2017 Inactive Ativan 0.5 mg tablet RxNorm: 701015 1 Tablet(s) PO No Start Date 10/09/2013 Inactive 1 30 min prior to procedure meloxicam 15 mg Tab RxNorm: 529888 1 Tablet(s) PO daily No Start Date 03/04/2012 Inactive lovastatin 20 mg Tab RxNorm: 476402 2 Tablet(s) PO QHS No Start Date 11/12/2011 Inactive Pen Needle 31 x 3/16" RxNorm: Miscellaneous BID Pen [place] 31g/8mm BD to use for Byetta injection BID No Start Date 06/03/2012 Inactive Medication Administered Medication Codes Instructions Start Date Status Kenalog 40 mg/mL suspension for injection RxNorm: 9127560 1Milliliter 06/04/2017 No longer Active Kenalog 40 mg/mL suspension for injection RxNorm: 2952726 1Milliliter 06/21/2016 No longer Active Kenalog 40 mg/mL suspension for injection RxNorm: 2002811 1Milliliter 05/04/2014 No longer Active Influenza Virus Vaccine 0.5 mL RxNorm: 07/01/2013 No longer Active Kenalog 40 mg/mL Susp for Injection RxNorm: 2082660 1Milliliter 09/25/2012 No longer Active Influenza Virus Vaccine 0.5 mL RxNorm: 06/04/2012 No longer Active Pneumovax 23 25 mcg/0.5 mL Injection RxNorm: 166259 Milliliter 06/04/2012 No longer Active Rocephin 500 mg Solution for Injection RxNorm: 6870639 03/04/2012 No longer Active Immunizations Vaccine Codes [...] 09/27/2010 completed Assessments Condition Codes Effective Dates Syncope and collapse ICD-10: R55 ICD-9: 780.2 01/26/2019 Infection following a procedure, other surgical site, initial encounter ICD-10: T81.49XA ICD-9: 998.59 01/26/2019 Urinary tract infection, site not specified ICD-10: N39.0 ICD-9: 599.0 01/26/2019 Essential (primary) hypertension ICD-10: I10 ICD-9: 401.1 [...] 331.83 02/08/2014 Nightmares ICD-9: 307.47 02/08/2014 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 10/14/2013 Thumb pain ICD-9: 729.5 [...] Visit Reason For Visit Effective Dates Notes Hospital Follow Up 01/26/2019 diabetes mellitus 01/08/2019 [...] Ord30 C/HDL 3.1 Ratio 01/07/2019 Comp Metabolic Brg572 NA 142 mEq/L 01/07/2019 Comp Metabolic Vfo078 K 4.3 mEq/L 01/07/2019 Comp Metabolic Bvk084 CL 104 mEq/L 01/07/2019 Comp Metabolic Wis943 CO2 28.0 mEq/L 01/07/2019 Comp Metabolic Wgv565 ANION GAP 14 01/07/2019 Comp Metabolic Gto183 GLUCOSE 118 mg/dL 01/07/2019 Comp Metabolic Pwp940 Creat 1.0 mg/dL 01/07/2019 Comp Metabolic Hmb742 eGFR 82 ml/min/1.73m2 01/07/2019 Comp Metabolic Igs671 BUN 22 mg/dL 01/07/2019 Comp Metabolic Mpr282 B/C Ratio 23.2 Ratio 01/07/2019 Comp Metabolic Izb631 CALCIUM 9.9 mg/dL 01/07/2019 Comp Metabolic Mnb275 ALK PHOS 41 U/L 01/07/2019 Comp Metabolic Gah254 AST(SGOT) 23 U/L 01/07/2019 Comp Metabolic Sgi081 ALT(SGPT) 24 U/L 01/07/2019 Comp Metabolic Imk588 BILI T 0.8 mg/dL 01/07/2019 Comp Metabolic Fri252 ALBUMIN 4.3 g/dL 01/07/2019 Comp Metabolic Tad759 TPRO 6.7 g/dL 01/07/2019 Comp Metabolic Fcq525 GLOB 2.4 g/dL 01/07/2019 Comp Metabolic Abe243 A/G Ratio 1.8 Ratio 01/07/2019 Comp Metabolic Sis521 Osmo 288 mOsmo 01/07/2019 Tsh Ord6 TSH (3rd IS) 3.27 uIU/mL 01/07/2019 %Hba1C Pia746 % HbA1c 37012- 6 5.9 % 01/07/2019 %Hba1C Avi614 Gluc Ave 123 mg/dL 01/07/2019 Cbc With [...] 31.2 pg 01/07/2019 Cbc With Differential Ord2 Manati% 11.5 % 01/07/2019 Cbc With Differential Ord2 [...] 1.96 K/ul 01/07/2019 Cbc With Differential Ord2 Manati ABS# 0.7 K/ul 01/07/2019 Cbc With Differential [...] 30.4 pg 10/08/2018 Cbc With Differential Ord2 Manati% 11.1 % 10/08/2018 Cbc With Differential Ord2 [...] 1.72 K/ul 10/08/2018 Cbc With Differential Ord2 Manati ABS# 0.6 K/ul 10/08/2018 Cbc With Differential Ord2 Eos ABS# 0.2 K/ul 10/08/2018 Cbc With Differential Ord2 Baso ABS# 0.0 K/ul 10/08/2018 %Hba1C Dwk690 % HbA1c 59053- 6 7.2 % 10/08/2018 %Hba1C Mti584 Gluc Ave 160 mg/dL 10/08/2018 Comp Metabolic Kzv108 NA 143 mEq/L 10/08/2018 Comp Metabolic Lpq940 K 4.4 mEq/L 10/08/2018 Comp Metabolic Pni762 CL 105 mEq/L 10/08/2018 Comp Metabolic Umh856 CO2 28.0 mEq/L 10/08/2018 Comp Metabolic Hfw900 ANION GAP 14 10/08/2018 Comp Metabolic Qvd158 GLUCOSE 127 mg/dL 10/08/2018 Comp Metabolic Taw776 Creat 1.1 mg/dL 10/08/2018 Comp Metabolic Tdh671 eGFR 72 ml/min/1.73m2 10/08/2018 Comp Metabolic Mmu785 BUN 18 mg/dL 10/08/2018 Comp Metabolic Cqq091 B/C Ratio 17.0 Ratio 10/08/2018 Comp Metabolic Otf762 CALCIUM 9.8 mg/dL 10/08/2018 Comp Metabolic Rvj704 ALK PHOS 50 U/L 10/08/2018 Comp Metabolic Jla983 AST(SGOT) 37 U/L 10/08/2018 Comp Metabolic Wbm551 ALT(SGPT) 37 U/L 10/08/2018 Comp Metabolic Qzb368 BILI T 0.8 mg/dL 10/08/2018 Comp Metabolic Snx701 ALBUMIN 4.4 g/dL 10/08/2018 Comp Metabolic Utk052 TPRO 7.1 g/dL 10/08/2018 Comp Metabolic Jnx788 GLOB 2.7 g/dL 10/08/2018 Comp Metabolic Lmg045 A/G Ratio 1.6 Ratio 10/08/2018 Comp Metabolic Xii337 Osmo 288 mOsmo 10/08/2018 Lipid Ord30 CHOL 150 mg/dL 10/08/2018 Lipid Ord30 HDL 45.0 mg/dl 10/08/2018 Lipid Ord30 TRIG 190 mg/dL 10/08/2018 Lipid Ord30 LDL 67 mg/dL 10/08/2018 Lipid Ord30 C/HDL 3.3 Ratio 10/08/2018 Tsh Ord6 TSH (3rd IS) 1.80 uIU/mL 10/08/2018 %Hba1C Bsz309 % HbA1c 45697- 6 7.6 % 07/04/2018 %Hba1C Zop516 Gluc Ave 171 mg/dL 07/04/2018 Comp Metabolic Idb953 NA 140 mEq/L 07/04/2018 Comp Metabolic Nmm333 K 4.5 mEq/L 07/04/2018 Comp Metabolic Jyl816 CL 104 mEq/L 07/04/2018 Comp Metabolic Iey855 CO2 28.0 mEq/L 07/04/2018 Comp Metabolic Phu936 ANION GAP 13 07/04/2018 Comp Metabolic Tas054 GLUCOSE 211 mg/dL 07/04/2018 Comp Metabolic Dqe716 Creat 0.9 mg/dL 07/04/2018 Comp Metabolic Qku927 eGFR 85 ml/min/1.73m2 07/04/2018 Comp Metabolic Szd701 BUN 20 mg/dL 07/04/2018 Comp Metabolic Ycf586 B/C Ratio 21.7 Ratio 07/04/2018 Comp Metabolic Ojl320 CALCIUM 9.5 mg/dL 07/04/2018 Comp Metabolic Icq813 ALK PHOS 46 U/L 07/04/2018 Comp Metabolic Tla579 AST(SGOT) 26 U/L 07/04/2018 Comp Metabolic Qbk087 ALT(SGPT) 29 U/L 07/04/2018 Comp Metabolic Xnb803 BILI T 0.6 mg/dL 07/04/2018 Comp Metabolic Hwn991 ALBUMIN 4.2 g/dL 07/04/2018 Comp Metabolic Ndn223 TPRO 6.8 g/dL 07/04/2018 Comp Metabolic Yau434 GLOB 2.6 g/dL 07/04/2018 Comp Metabolic Ltw642 A/G Ratio 1.6 Ratio 07/04/2018 Comp Metabolic Itv441 Osmo 288 mOsmo 07/04/2018 Tsh Ord6 TSH [...] 31.0 pg 07/04/2018 Cbc With Differential Ord2 [place]% 12.9 % 07/04/2018 Cbc With Differential Ord2 [...] 1.86 K/ul 07/04/2018 Cbc With Differential Ord2 [place] ABS# 0.9 K/ul 07/04/2018 Cbc With Differential Ord2 Eos ABS# 0.3 K/ul 07/04/2018 Cbc With Differential Ord2 Baso ABS# 0.1 K/ul 07/04/2018 Lipid Ord30 CHOL 159 mg/dL 07/04/2018 Lipid Ord30 HDL 45.0 mg/dl 07/04/2018 Lipid Ord30 TRIG 244 mg/dL 07/04/2018 Lipid Ord30 LDL 65 mg/dL 07/04/2018 Lipid Ord30 C/HDL 3.5 Ratio 07/04/2018 %Hba1C Vrn293 % HbA1c 70732- 6 8.0 % 03/06/2018 %Hba1C Qjl196 Gluc Ave 183 mg/dL 03/06/2018 Lipid Ord30 [...] 30.2 pg 03/04/2018 Cbc With Differential Ord2 [place]% 12.2 % 03/04/2018 Cbc With Differential Ord2 [...] 1.93 K/ul 03/04/2018 Cbc With Differential Ord2 [place] ABS# 0.8 K/ul 03/04/2018 Cbc With Differential Ord2 Eos ABS# 0.2 K/ul 03/04/2018 Cbc With Differential Ord2 Baso ABS# 0.1 K/ul 03/04/2018 Comp Metabolic Wfq746 NA 139 mEq/L 03/04/2018 Comp Metabolic Bsa138 K 4.5 mEq/L 03/04/2018 Comp Metabolic Kfx541 CL 102 mEq/L 03/04/2018 Comp Metabolic Vnb430 CO2 28.0 mEq/L 03/04/2018 Comp Metabolic Rjj231 ANION GAP 14 03/04/2018 Comp Metabolic Xds259 GLUCOSE 201 mg/dL 03/04/2018 Comp Metabolic Dvh257 Creat 1.0 mg/dL 03/04/2018 Comp Metabolic Wnc621 eGFR 78 ml/min/1.73m2 03/04/2018 Comp Metabolic Day138 BUN 18 mg/dL 03/04/2018 Comp Metabolic Cnz334 B/C Ratio 18.0 Ratio 03/04/2018 Comp Metabolic Rec530 CALCIUM 9.4 mg/dL 03/04/2018 Comp Metabolic Qep144 ALK PHOS 40 U/L 03/04/2018 Comp Metabolic Xmp826 AST(SGOT) 21 U/L 03/04/2018 Comp Metabolic Jji775 ALT(SGPT) 27 U/L 03/04/2018 Comp Metabolic Gsd060 BILI T 0.6 mg/dL 03/04/2018 Comp Metabolic Qnm012 ALBUMIN 4.1 g/dL 03/04/2018 Comp Metabolic Xfb877 TPRO 6.7 g/dL 03/04/2018 Comp Metabolic Zhx074 GLOB 2.7 g/dL 03/04/2018 Comp Metabolic Hcv562 A/G Ratio 1.5 Ratio 03/04/2018 Comp Metabolic Nfn546 Osmo 285 mOsmo 03/04/2018 Lipid Ord30 CHOL 171 mg/dL 11/20/2017 Lipid Ord30 HDL 52.0 mg/dl 11/20/2017 Lipid Ord30 TRIG 248 mg/dL 11/20/2017 Lipid Ord30 LDL 69 mg/dL 11/20/2017 Lipid Ord30 C/HDL 3.3 Ratio 11/20/2017 %Hba1C Awp659 % HbA1c 79262- 6 7.7 % 11/20/2017 %Hba1C Fuq247 Gluc Ave 174 mg/dL 11/20/2017 Comp Metabolic Tgc513 NA 140 mEq/L 11/20/2017 Comp Metabolic Ozj112 K 4.3 mEq/L 11/20/2017 Comp Metabolic Bcb958 CL 103 mEq/L 11/20/2017 Comp Metabolic Gza220 CO2 27.0 mEq/L 11/20/2017 Comp Metabolic Iui615 ANION GAP 14 11/20/2017 Comp Metabolic Ozd163 GLUCOSE 151 mg/dL 11/20/2017 Comp Metabolic Fwg391 Creat 0.9 mg/dL 11/20/2017 Comp Metabolic Ivc238 eGFR 87 ml/min/1.73m2 11/20/2017 Comp Metabolic Bhr836 BUN 25 mg/dL 11/20/2017 Comp Metabolic Hpx287 B/C Ratio 27.5 Ratio 11/20/2017 Comp Metabolic Bws847 CALCIUM 9.7 mg/dL 11/20/2017 Comp Metabolic Lbi979 ALK PHOS 49 U/L 11/20/2017 Comp Metabolic Crt453 AST(SGOT) 25 U/L 11/20/2017 Comp Metabolic Ipj929 ALT(SGPT) 24 U/L 11/20/2017 Comp Metabolic Bxn167 BILI T 0.6 mg/dL 11/20/2017 Comp Metabolic Mwt442 ALBUMIN 4.2 g/dL 11/20/2017 Comp Metabolic Isy719 TPRO 6.6 g/dL 11/20/2017 Comp Metabolic Adu259 GLOB 2.4 g/dL 11/20/2017 Comp Metabolic Arf837 A/G Ratio 1.8 Ratio 11/20/2017 Comp Metabolic Jcq277 Osmo 287 mOsmo 11/20/2017 Cbc With Differential [...] 31.0 pg 07/25/2017 Cbc With Differential Ord2 [place]% 13.3 % 07/25/2017 Cbc With Differential Ord2 [...] 1.89 K/ul 07/25/2017 Cbc With Differential Ord2 [place] ABS# 0.9 K/ul 07/25/2017 Cbc With Differential Ord2 Eos ABS# 0.2 K/ul 07/25/2017 Cbc With Differential Ord2 Baso ABS# 0.1 K/ul 07/25/2017 Comp Metabolic Cgm344 NA 140 mEq/L 07/25/2017 Comp Metabolic Rpg468 K 4.7 mEq/L 07/25/2017 Comp Metabolic Vsd835 CL 102 mEq/L 07/25/2017 Comp Metabolic Nbo479 CO2 30.0 mEq/L 07/25/2017 Comp Metabolic Zgn497 ANION GAP 13 07/25/2017 Comp Metabolic Lnx718 GLUCOSE 178 mg/dL 07/25/2017 Comp Metabolic Kws084 Creat 1.0 mg/dL 07/25/2017 Comp Metabolic Kcz087 eGFR 75 ml/min/1.73m2 07/25/2017 Comp Metabolic Caq475 BUN 23 mg/dL 07/25/2017 Comp Metabolic Pie853 B/C Ratio 22.3 Ratio 07/25/2017 Comp Metabolic Knc657 CALCIUM 9.7 mg/dL 07/25/2017 Comp Metabolic Yzh426 ALK PHOS 40 U/L 07/25/2017 Comp Metabolic Lyn729 AST(SGOT) 22 U/L 07/25/2017 Comp Metabolic Kdk694 ALT(SGPT) 25 U/L 07/25/2017 Comp Metabolic Zsb372 BILI T 0.7 mg/dL 07/25/2017 Comp Metabolic Agk125 ALBUMIN 4.0 g/dL 07/25/2017 Comp Metabolic Mmk784 TPRO 6.7 g/dL 07/25/2017 Comp Metabolic Zbe977 GLOB 2.7 g/dL 07/25/2017 Comp Metabolic Eix404 A/G Ratio 1.5 Ratio 07/25/2017 Comp Metabolic Awd842 Osmo 288 mOsmo 07/25/2017 %Hba1C Dff333 % HbA1c 66982- 6 7.1 % 07/25/2017 %Hba1C Dke623 Gluc Ave 157 mg/dL 07/25/2017 Lipid Ord30 CHOL 164 mg/dL 07/25/2017 Lipid Ord30 HDL 49.0 mg/dl 07/25/2017 Lipid Ord30 TRIG 266 mg/dL 07/25/2017 Lipid Ord30 LDL 62 mg/dL 07/25/2017 Lipid Ord30 C/HDL 3.3 Ratio 07/25/2017 Comp Metabolic Qhn445 NA 140 mEq/L 04/02/2017 Comp Metabolic Jwj677 K 4.4 mEq/L 04/02/2017 Comp Metabolic Nne523 CL 103 mEq/L 04/02/2017 Comp Metabolic Vvp560 CO2 27.0 mEq/L 04/02/2017 Comp Metabolic Nil215 ANION GAP 14 04/02/2017 Comp Metabolic Ijq054 GLUCOSE 182 mg/dL 04/02/2017 Comp Metabolic Bmf849 Creat 1.1 mg/dL 04/02/2017 Comp Metabolic Rdd583 eGFR 73 ml/min/1.73m2 04/02/2017 Comp Metabolic Sph507 BUN 26 mg/dL 04/02/2017 Comp Metabolic Hro551 B/C Ratio 24.5 Ratio 04/02/2017 Comp Metabolic Yyu076 CALCIUM 9.4 mg/dL 04/02/2017 Comp Metabolic Ytb895 ALK PHOS 43 U/L 04/02/2017 Comp Metabolic Tna364 AST(SGOT) 19 U/L 04/02/2017 Comp Metabolic Puo353 ALT(SGPT) 20 U/L 04/02/2017 Comp Metabolic Qwn896 BILI T 0.7 mg/dL 04/02/2017 Comp Metabolic Xnz024 ALBUMIN 4.0 g/dL 04/02/2017 Comp Metabolic Dyb606 TPRO 6.6 g/dL 04/02/2017 Comp Metabolic Sxm936 GLOB 2.6 g/dL 04/02/2017 Comp Metabolic Cui066 A/G Ratio 1.6 Ratio 04/02/2017 Comp Metabolic Wyg342 Osmo 289 mOsmo 04/02/2017 %Hba1C Pde045 % HbA1c 44988- 6 7.9 % 04/02/2017 %Hba1C Qmg134 Gluc Ave 180 mg/dL 04/02/2017 Cbc With [...] 30.6 pg 04/02/2017 Cbc With Differential Ord2 [place]% 11.5 % 04/02/2017 Cbc With Differential Ord2 [...] 2.21 K/ul 04/02/2017 Cbc With Differential Ord2 [place] ABS# 0.9 K/ul 04/02/2017 Cbc With Differential [...] 30.6 pg 12/04/2016 Cbc With Differential Ord2 [place]% 10.7 % 12/04/2016 Cbc With Differential Ord2 [...] 1.76 K/ul 12/04/2016 Cbc With Differential Ord2 [place] ABS# 0.8 K/ul 12/04/2016 Cbc With Differential Ord2 Eos ABS# 0.2 K/ul 12/04/2016 Cbc With Differential Ord2 Baso ABS# 0.1 K/ul 12/04/2016 Lipid Ord30 CHOL 156 mg/dL 12/04/2016 Lipid Ord30 HDL 47.0 mg/dl 12/04/2016 Lipid Ord30 TRIG 219 mg/dL 12/04/2016 Lipid Ord30 LDL 65 mg/dL 12/04/2016 Lipid Ord30 C/HDL 3.3 Ratio 12/04/2016 Comp Metabolic Cdr716 NA 139 mEq/L 12/04/2016 Comp Metabolic Lua299 K 4.4 mEq/L 12/04/2016 Comp Metabolic Kqa356 CL 103 mEq/L 12/04/2016 Comp Metabolic Pfx262 CO2 27.0 mEq/L 12/04/2016 Comp Metabolic Ark925 ANION GAP 13 12/04/2016 Comp Metabolic Jgm983 GLUCOSE 147 mg/dL 12/04/2016 Comp Metabolic Yqr880 Creat 1.0 mg/dL 12/04/2016 Comp Metabolic Dhb781 eGFR 83 ml/min/1.73m2 12/04/2016 Comp Metabolic Hru027 BUN 20 mg/dL 12/04/2016 Comp Metabolic Jvi792 B/C Ratio 21.1 Ratio 12/04/2016 Comp Metabolic Iwv442 CALCIUM 9.5 mg/dL 12/04/2016 Comp Metabolic Qfa745 ALK PHOS 44 U/L 12/04/2016 Comp Metabolic Zmf765 AST(SGOT) 22 U/L 12/04/2016 Comp Metabolic Hxs197 ALT(SGPT) 23 U/L 12/04/2016 Comp Metabolic Eof870 BILI T 0.8 mg/dL 12/04/2016 Comp Metabolic Nzr010 ALBUMIN 3.9 g/dL 12/04/2016 Comp Metabolic Ayl300 TPRO 6.3 g/dL 12/04/2016 Comp Metabolic Hew933 GLOB 2.4 g/dL 12/04/2016 Comp Metabolic Xej469 A/G Ratio 1.7 Ratio 12/04/2016 Comp Metabolic Qgv350 Osmo 283 mOsmo 12/04/2016 Tsh Ord6 hTSH II 3.35 uIU/mL 12/04/2016 %Hba1C Vyb484 % HbA1c 70230- 6 7.4 % 12/04/2016 %Hba1C Yse506 Gluc Ave 166 mg/dL 12/04/2016 Comp Metabolic Xmt279 NA 138 mEq/L 08/28/2016 Comp Metabolic Bek623 K 4.7 mEq/L 08/28/2016 Comp Metabolic Gdf151 CL 101 mEq/L 08/28/2016 Comp Metabolic Hcs961 CO2 29.0 mEq/L 08/28/2016 Comp Metabolic Mrc586 ANION GAP 13 08/28/2016 Comp Metabolic Hkv164 GLUCOSE 188 mg/dL 08/28/2016 Comp Metabolic Obl325 Creat 1.0 mg/dL 08/28/2016 Comp Metabolic Coy129 eGFR 82 ml/min/1.73m2 08/28/2016 Comp Metabolic Ixn327 BUN 21 mg/dL 08/28/2016 Comp Metabolic Uyk151 B/C Ratio 21.9 Ratio 08/28/2016 Comp Metabolic Tfg590 CALCIUM 9.6 mg/dL 08/28/2016 Comp Metabolic Idu742 ALK PHOS 52 U/L 08/28/2016 Comp Metabolic Fow609 AST(SGOT) 27 U/L 08/28/2016 Comp Metabolic Qbi816 ALT(SGPT) 26 U/L 08/28/2016 Comp Metabolic Igj028 BILI T 0.9 mg/dL 08/28/2016 Comp Metabolic Woh308 ALBUMIN 4.2 g/dL 08/28/2016 Comp Metabolic Fzs204 TPRO 6.8 g/dL 08/28/2016 Comp Metabolic Rkx956 GLOB 2.6 g/dL 08/28/2016 Comp Metabolic Ymy998 A/G Ratio 1.6 Ratio 08/28/2016 Comp Metabolic Kta966 Osmo 284 mOsmo 08/28/2016 Cbc With Differential [...] 30.9 pg 08/28/2016 Cbc With Differential Ord2 [place]% 14.3 % 08/28/2016 Cbc With Differential Ord2 [...] 1.68 K/ul 08/28/2016 Cbc With Differential Ord2 [place] ABS# 1.1 K/ul 08/28/2016 Cbc With Differential Ord2 Eos ABS# 0.3 K/ul 08/28/2016 Cbc With Differential Ord2 Baso ABS# 0.1 K/ul 08/28/2016 %Hba1C Npw328 % HbA1c 38552- 6 7.6 % 08/28/2016 %Hba1C Rfs166 Gluc Ave 171 mg/dL 08/28/2016 Cbc With [...] 30.3 pg 05/23/2016 Cbc With Differential Ord2 [place]% 12.0 % 05/23/2016 Cbc With Differential Ord2 [...] 1.74 K/ul 05/23/2016 Cbc With Differential Ord2 [place] ABS# 0.9 K/ul 05/23/2016 Cbc With Differential Ord2 Eos ABS# 0.2 K/ul 05/23/2016 Cbc With Differential Ord2 Baso ABS# 0.1 K/ul 05/23/2016 Tsh Ord6 hTSH II 3.24 uIU/mL 05/23/2016 %Hba1C Cih490 % HbA1c 83794- 6 7.1 % 05/23/2016 %Hba1C Uyt062 Gluc Ave 157 mg/dL 05/23/2016 Lipid Ord30 CHOL 155 mg/dL 05/23/2016 Lipid Ord30 HDL 50.0 mg/dl 05/23/2016 Lipid Ord30 TRIG 159 mg/dL 05/23/2016 Lipid Ord30 LDL 73 mg/dL 05/23/2016 Lipid Ord30 C/HDL 3.1 Ratio 05/23/2016 Comp Metabolic Uip566 NA 137 mEq/L 05/23/2016 Comp Metabolic Omq977 K 4.3 mEq/L 05/23/2016 Comp Metabolic Rnf706 CL 102 mEq/L 05/23/2016 Comp Metabolic Jnu108 CO2 28.0 mEq/L 05/23/2016 Comp Metabolic Pyx940 ANION GAP 11 05/23/2016 Comp Metabolic Gvv271 GLUCOSE 140 mg/dL 05/23/2016 Comp Metabolic Xhb518 Creat 0.9 mg/dL 05/23/2016 Comp Metabolic Snx325 eGFR 93 ml/min/1.73m2 05/23/2016 Comp Metabolic Bpu280 BUN 23 mg/dL 05/23/2016 Comp Metabolic Nni271 B/C Ratio 26.7 Ratio 05/23/2016 Comp Metabolic Zkh502 CALCIUM 9.4 mg/dL 05/23/2016 Comp Metabolic Zkr163 ALK PHOS 43 U/L 05/23/2016 Comp Metabolic Pbu739 AST(SGOT) 23 U/L 05/23/2016 Comp Metabolic Ftr245 ALT(SGPT) 23 U/L 05/23/2016 Comp Metabolic Ugk883 BILI T 0.7 mg/dL 05/23/2016 Comp Metabolic Kbq713 ALBUMIN 4.2 g/dL 05/23/2016 Comp Metabolic Cqp697 TPRO 6.8 g/dL 05/23/2016 Comp Metabolic Bno570 GLOB 2.6 g/dL 05/23/2016 Comp Metabolic Wkb290 A/G Ratio 1.6 Ratio 05/23/2016 Comp Metabolic Bam188 Osmo 280 mOsmo 05/23/2016 Cbc With Differential [...] 29.9 pg 01/24/2016 Cbc With Differential Ord2 [place]% 11.1 % 01/24/2016 Cbc With Differential Ord2 [...] 1.92 K/ul 01/24/2016 Cbc With Differential Ord2 [place] ABS# 0.8 K/ul 01/24/2016 Cbc With Differential Ord2 Eos ABS# 0.3 K/ul 01/24/2016 Cbc With Differential Ord2 Baso ABS# 0.1 K/ul 01/24/2016 Cbc With Differential Ord2 New Analyzer Notice Please note new ref ranges starting 09-21-2015 due to implemntation of new five part differential hematolgy analyzer. 01/24/2016 Comp Metabolic Lym145 NA 139 mEq/L 01/24/2016 Comp Metabolic Yfy291 K 4.1 mEq/L 01/24/2016 Comp Metabolic Xon146 CL 102 mEq/L 01/24/2016 Comp Metabolic Mgf514 CO2 29.0 mEq/L 01/24/2016 Comp Metabolic Bok138 ANION GAP 12 01/24/2016 Comp Metabolic Rzo292 GLUCOSE 140 mg/dL 01/24/2016 Comp Metabolic Uhp022 Creat 0.9 mg/dL 01/24/2016 Comp Metabolic Mnb190 eGFR 87 ml/min/1.73m2 01/24/2016 Comp Metabolic Hsq577 BUN 20 mg/dL 01/24/2016 Comp Metabolic Qbl723 B/C Ratio 22.0 Ratio 01/24/2016 Comp Metabolic Jsk537 CALCIUM 9.3 mg/dL 01/24/2016 Comp Metabolic Ptv359 ALK PHOS 46 U/L 01/24/2016 Comp Metabolic Dsx779 AST(SGOT) 23 U/L 01/24/2016 Comp Metabolic Ubf813 ALT(SGPT) 22 U/L 01/24/2016 Comp Metabolic Vzy825 BILI T 0.7 mg/dL 01/24/2016 Comp Metabolic Llj903 ALBUMIN 4.1 g/dL 01/24/2016 Comp Metabolic Dak308 TPRO 6.7 g/dL 01/24/2016 Comp Metabolic Cpn090 GLOB 2.6 g/dL 01/24/2016 Comp Metabolic Kfc212 A/G Ratio 1.6 Ratio 01/24/2016 Comp Metabolic Nhc048 Osmo 282 mOsmo 01/24/2016 %Hba1C Otl568 % HbA1c 89868- 6 6.8 % 01/24/2016 %Hba1C Fzp396 Gluc Ave 148 mg/dL 01/24/2016 Tsh Ord6 hTSH II 3.45 uIU/mL 01/24/2016 Lipid Ord30 CHOL 137 mg/dL 01/24/2016 Lipid Ord30 HDL 47.0 mg/dl 01/24/2016 Lipid Ord30 TRIG 161 mg/dL 01/24/2016 Lipid Ord30 LDL 58 mg/dL 01/24/2016 Lipid Ord30 C/HDL 2.9 Ratio 01/24/2016 Tsh Ord6 hTSH II 3.71 uIU/mL 10/25/2015 %Hba1C Gjt802 % HbA1c 60355- 6 7.1 % 10/25/2015 %Hba1C Vyg736 Gluc Ave 157 mg/dL 10/25/2015 Cbc With [...] 30.2 pg 10/25/2015 Cbc With Differential Ord2 [place]% 12.4 % 10/25/2015 Cbc With Differential Ord2 [...] 1.69 K/ul 10/25/2015 Cbc With Differential Ord2 [place] ABS# 0.8 K/ul 10/25/2015 Cbc With Differential [...] Ord30 C/HDL 3.2 Ratio 10/25/2015 Comp Metabolic Zxo614 NA 136 mEq/L 10/25/2015 Comp Metabolic Byh572 K 4.0 mEq/L 10/25/2015 Comp Metabolic Ppd216 CL 102 mEq/L 10/25/2015 Comp Metabolic Jxa615 CO2 26.0 mEq/L 10/25/2015 Comp Metabolic Gji572 ANION GAP 12 10/25/2015 Comp Metabolic Dky693 GLUCOSE 119 mg/dL 10/25/2015 Comp Metabolic Dft830 Creat 1.1 mg/dL 10/25/2015 Comp Metabolic Mag226 eGFR 69 ml/min/1.73m2 10/25/2015 Comp Metabolic Tjb550 BUN 21 mg/dL 10/25/2015 Comp Metabolic Ccb965 B/C Ratio 18.8 Ratio 10/25/2015 Comp Metabolic Gjw188 CALCIUM 9.5 mg/dL 10/25/2015 Comp Metabolic Wsu146 ALK PHOS 49 U/L 10/25/2015 Comp Metabolic Lsd679 AST(SGOT) 29 U/L 10/25/2015 Comp Metabolic Wsd366 ALT(SGPT) 28 U/L 10/25/2015 Comp Metabolic Omc309 BILI T 0.7 mg/dL 10/25/2015 Comp Metabolic Kmq965 ALBUMIN 4.2 g/dL 10/25/2015 Comp Metabolic Sls033 TPRO 6.7 g/dL 10/25/2015 Comp Metabolic Zyp918 GLOB 2.5 g/dL 10/25/2015 Comp Metabolic Bio771 A/G Ratio 1.7 Ratio 10/25/2015 Comp Metabolic Fbx639 Osmo 276 mOsmo 10/25/2015 Sensitivity Report #1 [id number] ORGANISM ESCHERICHIA COLI 10/06/2015 Sensitivity Report #1 [id number] ORG NUMBER 1 10/06/2015 Sensitivity Report #1 [id number] AMIKACIN S 10/06/2015 Sensitivity Report #1 [id number] AMPICILLIN/SULBACTAM S 10/06/2015 Sensitivity Report #1 [id number] AMOXICILLIN/CLAV S 10/06/2015 Sensitivity Report #1 [id number] CEFEPIME S 10/06/2015 Sensitivity Report #1 [id number] AMPICILLIN S 10/06/2015 Sensitivity Report #1 [id number] CEFOTAXIME S 10/06/2015 Sensitivity Report #1 [id number] CEFAZOLIN S 10/06/2015 Sensitivity Report #1 [id number] CEFTAZIDIME S 10/06/2015 Sensitivity Report #1 [id number] CEFTRIAXONE S 10/06/2015 Sensitivity Report #1 [id number] CIPROFLOXACIN S 10/06/2015 Sensitivity Report #1 [id number] GENTAMICIN S 10/06/2015 Sensitivity Report #1 [id number] LEVOFLOXACIN S 10/06/2015 Sensitivity Report #1 [id number] CEFUROXIME S 10/06/2015 Sensitivity Report #1 [id number] MEROPENEM S 10/06/2015 Sensitivity Report #1 [id number] TETRACYCLINE S 10/06/2015 Sensitivity Report #1 [id number] ERTAPENEM S 10/06/2015 Sensitivity Report #1 [id number] TOBRAMYCIN S 10/06/2015 Sensitivity Report #1 [id number] TRIMETH/SULFA S 10/06/2015 Sensitivity Report #1 [id number] IMIPENEM S 10/06/2015 Sensitivity Report #1 [id number] NITROFURANTOIN S 10/06/2015 Sensitivity Report #1 [id number] PIPERACILLIN/TAZO S 10/06/2015 Culture Urine [id number] URINE CULTURE SEE NOTES 10/06/2015 Culture Urine [id number] SOURCE: URINE 10/06/2015 Culture Urine [id number] STATUS: FINAL 10/06/2015 Culture Urine [id number] DATE PLATED: 10/03/2015 10/06/2015 Culture Urine [id number] PRELIMINARY: 10/06/2015 Culture Urine [id number] CULTURE REPORT: 10/06/2015 Urine Culture Ucult Complete >100,000 col/ml aerobic growth sent to ref lab 10/04/2015 Comp Metabolic Ope863 NA 133 mEq/L 07/19/2015 Comp Metabolic Nnr422 K 4.2 mEq/L 07/19/2015 Comp Metabolic Tvg861 CL 101 mEq/L 07/19/2015 Comp Metabolic Coq956 CO2 25.0 mEq/L 07/19/2015 Comp Metabolic Eap316 ANION GAP 11 07/19/2015 Comp Metabolic Tgk545 GLUCOSE 293 mg/dL 07/19/2015 Comp Metabolic Iqf081 Creat 1.0 mg/dL 07/19/2015 Comp Metabolic Rbq846 eGFR 81 ml/min/1.73m2 07/19/2015 Comp Metabolic Gwz825 BUN 19 mg/dL 07/19/2015 Comp Metabolic Nle244 B/C Ratio 19.6 Ratio 07/19/2015 Comp Metabolic Jpq400 CALCIUM 9.4 mg/dL 07/19/2015 Comp Metabolic Mkd591 ALK PHOS 61 U/L 07/19/2015 Comp Metabolic Etx906 AST(SGOT) 32 U/L 07/19/2015 Comp Metabolic Ufy037 ALT(SGPT) 41 U/L 07/19/2015 Comp Metabolic Bhe557 BILI T 0.7 mg/dL 07/19/2015 Comp Metabolic Ywj143 ALBUMIN 4.1 g/dL 07/19/2015 Comp Metabolic Pjt441 TPRO 6.7 g/dL 07/19/2015 Comp Metabolic Huj401 GLOB 2.6 g/dL 07/19/2015 Comp Metabolic Cpg703 A/G Ratio 1.6 Ratio 07/19/2015 Comp Metabolic Hhx278 Osmo 279 mOsmo 07/19/2015 %Hba1C Vbf787 % HbA1c 78512- 6 9.2 % 07/19/2015 %Hba1C Itd054 Gluc Ave 217 mg/dL 07/19/2015 Cbc With [...] Ord6 hTSH II 2.72 uIU/mL 04/19/2015 %Hba1C Oaf128 % HbA1c 45941- 6 8.6 % 04/19/2015 %Hba1C Mgb413 Gluc Ave 200 mg/dL 04/19/2015 Comp Metabolic Div937 NA 139 mEq/L 04/19/2015 Comp Metabolic Erq329 K 4.2 mEq/L 04/19/2015 Comp Metabolic Xmz906 CL 106 mEq/L 04/19/2015 Comp Metabolic Ddl193 CO2 27.0 mEq/L 04/19/2015 Comp Metabolic Hat439 ANION GAP 10 04/19/2015 Comp Metabolic Bql194 GLUCOSE 157 mg/dL 04/19/2015 Comp Metabolic Jwb690 Creat 0.9 mg/dL 04/19/2015 Comp Metabolic Kup239 eGFR 84 ml/min/1.73m2 04/19/2015 Comp Metabolic Luc745 BUN 14 mg/dL 04/19/2015 Comp Metabolic Ybi175 B/C Ratio 14.9 Ratio 04/19/2015 Comp Metabolic Mgn304 CALCIUM 9.5 mg/dL 04/19/2015 Comp Metabolic Sql073 ALK PHOS 51 U/L 04/19/2015 Comp Metabolic Lcw466 AST(SGOT) 28 U/L 04/19/2015 Comp Metabolic Pmu384 ALT(SGPT) 29 U/L 04/19/2015 Comp Metabolic Mfo566 BILI T 0.6 mg/dL 04/19/2015 Comp Metabolic Hng602 ALBUMIN 4.1 g/dL 04/19/2015 Comp Metabolic Gzd001 TPRO 6.4 g/dL 04/19/2015 Comp Metabolic Kaz134 GLOB 2.3 g/dL 04/19/2015 Comp Metabolic Azl687 A/G Ratio 1.8 Ratio 04/19/2015 Comp Metabolic Ppz061 Osmo 281 mOsmo 04/19/2015 Lipid Ord30 CHOL 136 mg/dL 04/19/2015 Lipid Ord30 HDL 42.0 mg/dl 04/19/2015 Lipid Ord30 TRIG 226 mg/dL 04/19/2015 Lipid Ord30 LDL 49 mg/dL 04/19/2015 Lipid Ord30 C/HDL 3.2 Ratio 04/19/2015 Review of Systems System Result Effective Dates Constitutional No anorexia 01/26/2019 Constitutional No night [...] bilaterally 01/08/2019 None Full Exam - General 1995 Respiratory respiratory effort/rhythm Overall: no retractions 01/08/2019 None Full Exam - General 1995 Respiratory respiratory effort/rhythm Overall: normal rate 01/08/2019 [...] crepitus 10/14/2013 None Full Exam - General 1995 Constitutional general appearance Overall: well developed 07/01/2013 None Full Exam - General 1995 Constitutional general appearance Overall: in no acute distress 07/01/2013 None Full Exam - General 1995 Constitutional general appearance Overall: well nourished 07/01/2013 [...] atraumatic 09/29/2012 None Full Exam - General 1995 [...] sounds 12/03/2011 None Full Exam - General 1995 Abdomen abdominal exam Contour: rounded 12/03/2011 None Full Exam - General 1995 Abdomen abdominal exam Contour: protuberant 12/03/2011 None [...] VACC NO PRSV 3 YRS+ IM CPT-4: 26387 05/21/2018 IIV4 VACC NO PRSV 3 YRS+ IM CPT-4: 29663 05/21/2018 ADMIN INFLUENZA VIRUS VAC CPT-4: G0008 05/21/2018 ADMIN PNEUMOCOCCAL VACCINE SNOMED CT: 48320471 CPT-4: G0009 05/21/2018 FLU VAC NO PRSV 4 DONNA 3 YRS+ CPT-4: 94812 05/21/2018 PPPS, SUBSEQ VISIT CPT- 4: G0439 12/24/2017 TRIAMCINOLONE ACET INJ NOS CPT-4: J3301 12/24/2017 DRAIN/INJECT JOINT/BURSA CPT-4: 03013 12/24/2017 REMOVAL OF SKIN TAGS <W/15 CPT-4: 77876 07/02/2017 ADMIN INFLUENZA VIRUS VAC CPT-4: G0008 06/28/2017 FLU VAC NO PRSV 4 DONNA 3 YRS+ CPT-4: 71777 06/28/2017 TRIAMCINOLONE ACET INJ NOS CPT-4: J3301 06/04/2017 PPPS, SUBSEQ VISIT CPT- 4: G0439 12/13/2016 PNEUMOCOCCAL VACC [address]: 34647106 CPT-4: 34318 12/13/2016 ADMIN PNEUMOCOCCAL VACCINE SNOMED CT: 08028437 CPT-4: G0009 12/13/2016 DRAIN/INJECT JOINT/BURSA CPT-4: 08902 08/30/2016 TRIAMCINOLONE ACET INJ NOS CPT-4: J3301 08/30/2016 URINALYSIS NONAUTO W/O SCOPE CPT-4: 59530 07/13/2016 INJ TRIGGER POINT 1/2 MUSCL CPT-4: 20860 06/21/2016 ADMIN INFLUENZA VIRUS VAC CPT-4: G0008 05/24/2016 FLU VACC PRSV FREE INC ANTIG Formatting Model/CDA Sections, Assigned to/Judy Pierre CPT-4: 26777Ivrtidt 05/24/2016 URINALYSIS NONAUTO W/O SCOPE CPT-4: 18114 10/03/2015 ADMIN INFLUENZA VIRUS VAC CPT-4: G0008 07/20/2015 IMMUNIZATION ADMIN CPT- 4: 82364 07/20/2015 FLU VACC PRSV FREE INC ANTIG Formatting Model/CDA Sections, Assigned to/Judy Pierre CPT-4: 52705Fooohwk 07/20/2015 URINALYSIS NONAUTO W/O SCOPE CPT-4: 82227 05/18/2015 URINALYSIS NONAUTO W/O SCOPE CPT-4: 36967 05/09/2015 ADMIN INFLUENZA VIRUS VAC CPT-4: G0008 06/03/2014 FLU VAC NO PRSV 4 DONNA 3 YRS+ Assigned to/Judy Pierre CPT-4: 23481Vvspgxk 06/03/2014 TRIAMCINOLONE ACET INJ NOS CPT-4: J3301 05/04/2014 ADMIN INFLUENZA VIRUS VAC CPT-4: G0008 07/01/2013 FLULAVAL VACC, 3 YRS & >, IM CPT-4: Q2036 07/01/2013 PRESCRIP TRANSMIT VIA ERX SY CPT-4: G8553 03/04/2013 PRESCRIP TRANSMIT VIA ERX SY CPT-4: G8553 02/04/2013 DRAIN/INJECT JOINT/BURSA CPT-4: 46598 09/25/2012 ADMIN INFLUENZA VIRUS VAC CPT-4: G0008 06/04/2012 FLULAVAL VACC, 3 YRS & >, IM CPT-4: Q2036 06/04/2012 ADMIN PNEUMOCOCCAL VACCINE SNOMED CT: 85093389 CPT-4: G0009 06/04/2012 PRESCRIP TRANSMIT VIA ERX SY CPT-4: G8553 04/09/2012 ROCEPHIN, PER 250 MG CPT- 4: J0696 03/04/2012 PRESCRIP TRANSMIT VIA ERX SY CPT-4: G8553 03/04/2012 DESTRUCT PREMALG LESION CPT-4: 98985 07/24/2011 DESTRUCT PREMALG LES 2-14 CPT-4: 83650 07/24/2011 DESTRUCT PREMALG LES 2-14 CPT-4: 18818 07/18/2011 DESTRUCT PREMALG LESION CPT-4: 16330 07/18/2011 Vital Signs Date Vital 01/26/2019 Blood Pressure 1: 140/72 Code: 8480-6 BMI: 37.3 Code: 32910-0 Head Circumference (cm): 244 cm Heart Rate 1: 90 bpm Height: 5'6" Weight: 231 lbs 01/08/2019 Blood Pressure 1: 150/78 Code: 8480-6 Blood Pressure 2: 142/70 Code: 8480-6 BMI: 37.9 Code: 24306-4 Heart Rate 1: 59 bpm Height: 5'6" SpO2: 98% Weight: 235 lbs 10/09/2018 Blood Pressure 1: 148/80 Code: 8480-6 BMI: 42.3 Code: 47338-3 Heart Rate 1: 66 bpm Height: 5'6" SpO2: 97% Weight: 262 lbs 07/07/2018 Blood Pressure 1: 140/76 Code: 8480-6 BMI: 45.2 Code: 94182-1 Heart Rate 1: 66 bpm Height: 5'6" SpO2: 98% Weight: 280 lbs 05/21/2018 Blood Pressure 1: 164/78 Code: 8480-6 Blood Pressure 1: 132/74 Code: 8480-6 BMI: 44.5 Code: 48380-7 Heart Rate 1: 63 bpm Height: 5'6" SpO2: 96% Weight: 276 lbs 03/06/2018 Blood Pressure 1: 140/80 Code: 8480-6 BMI: 45.6 Code: 73997-7 Heart Rate 1: 94 bpm Height: 5'6" SpO2: 96% Weight: 282 lbs 4 oz 12/24/2017 Blood Pressure 1: 148/72 Code: 8480-6 BMI: 44.7 Code: 59724-5 Heart Rate 1: 70 bpm Height: 5'6" SpO2: 95% Waist Measure (cm): 132 cm Weight: 277 lbs 11/21/2017 Blood Pressure 1: 134/76 Code: 8480-6 BMI: 44.4 Code: 46143-4 Heart Rate 1: 63 bpm Height: 5'6" SpO2: 97% Weight: 275 lbs 07/29/2017 Blood Pressure 1: 148/76 Code: 8480-6 BMI: 43.7 Code: 08904-2 Heart Rate 1: 75 bpm Height: 5'6" SpO2: 97% Weight: 275 lbs 07/02/2017 Blood Pressure 1: 148/78 Code: 8480-6 BMI: 43.4 Code: 84062-6 Heart Rate 1: 55 bpm Height: 5'6" SpO2: 97% Weight: 273 lbs 06/04/2017 Blood Pressure 1: 132/58 Code: 8480-6 BMI: 43.1 Code: 87070-3 Heart Rate 1: 64 bpm Height: 5'6" SpO2: 96% Weight: 271 lbs 04/03/2017 Blood Pressure 1: 124/70 Code: 8480-6 BMI: 44.2 Code: 38951-4 Heart Rate 1: 70 bpm Height: 5'6" Height: 5'6" SpO2: 95% Weight: 278 lbs 12/13/2016 Blood Pressure 1: 150/78 Code: 8480-6 BMI: 44.2 Code: 24854-1 Heart Rate 1: 67 bpm Height: 5'6" SpO2: 97% Weight: 278 lbs 12/05/2016 Blood Pressure 1: 122/80 Code: 8480-6 Blood Pressure 1: 126/90 Code: 8480-6 BMI: 44.2 Code: 42033-4 Heart Rate 1: 70 bpm Height: 5'6" SpO2: 97% Weight: 278 lbs 08/30/2016 Blood Pressure 1: 134/70 Code: 8480-6 Blood Pressure 1: 134/78 Code: 8480-6 BMI: 43.9 Code: 66455-6 Heart Rate 1: 62 bpm Height: 5'6" SpO2: 98% Weight: 276 lbs 07/13/2016 Blood Pressure 1: 140/68 Code: 8480-6 BMI: 43.2 Code: 69595-8 Heart Rate 1: 59 bpm Height: 5'6" SpO2: 96% Weight: 272 lbs 06/21/2016 Blood Pressure 1: 140/70 Code: 8480-6 BMI: 43.2 Code: 56193-9 Heart Rate 1: 70 bpm Height: 5'6" SpO2: 94% Weight: 272 lbs 05/24/2016 Blood Pressure 1: 138/70 Code: 8480-6 Blood Pressure 1: 138/72 Code: 8480-6 BMI: 43.2 Code: 35286-3 Heart Rate 1: 65 bpm Height: 5'6" SpO2: 97% Weight: 272 lbs 01/24/2016 Blood Pressure 1: 122/62 Code: 8480-6 BMI: 43.1 Code: 15308-3 Heart Rate 1: 61 bpm Height: 5'6" SpO2: 97% Weight: 271 lbs 10/27/2015 Blood Pressure 1: 122/64 Code: 8480-6 BMI: 42.4 Code: 96508-8 Heart Rate 1: 58 bpm Height: 5'6" SpO2: 97% Weight: 267 lbs 09/21/2015 Blood Pressure 1: 128/70 Code: 8480-6 BMI: 43.2 Code: 97043-7 Heart Rate 1: 65 bpm Height: 5'6" SpO2: 98% Weight: 272 lbs 08/17/2015 Blood Pressure 1: 120/64 Code: 8480-6 BMI: 44.8 Code: 69124-4 Heart Rate 1: 57 bpm Height: 5'6" SpO2: 97% Weight: 282 lbs 07/20/2015 Blood Pressure 1: 144/70 Code: 8480-6 BMI: 45.3 Code: 14366-8 Heart Rate 1: 67 bpm Height: 5'6" SpO2: 95% Weight: 285 lbs 05/09/2015 Blood Pressure 1: 180/60 Code: 8480-6 Blood Pressure 2: 140/80 Code: 8480-6 04/20/2015 Blood Pressure 1: 138/64 Code: 8480-6 BMI: 45.6 Code: 36947-4 Heart Rate 1: 60 bpm Height: 5'6" SpO2: 98% Weight: 287 lbs 02/28/2015 Blood Pressure 1: 142/78 Code: 8480-6 BMI: 45.8 Code: 18817-9 Heart Rate 1: 68 bpm Height: 5'6" Weight: 288 lbs 02/14/2015 Blood Pressure 1: 142/78 Code: 8480-6 BMI: 45.3 Code: 42021-9 Heart Rate 1: 88 bpm Height: 5'6" Weight: 285 lbs 11/11/2014 Blood Pressure 1: 152/72 Code: 8480-6 Heart Rate 1: 64 bpm Weight: 282 lbs 10/04/2014 Blood Pressure 1: 140/72 Code: 8480-6 BMI: 45.6 Code: 93278-3 Heart Rate 1: 76 bpm Height: 5'6" Weight: 287 lbs 08/02/2014 Blood Pressure 1: 132/62 Code: 8480-6 BMI: 45.6 Code: 17429-5 Heart Rate 1: 64 bpm Height: 5'6" Weight: 287 lbs 06/15/2014 Blood Pressure 1: 142/62 Code: 8480-6 BMI: 44.7 Code: 04674-8 Heart Rate 1: 68 bpm Height: 5'6" SpO2: 97% Weight: 281 lbs 05/04/2014 Blood Pressure 1: 140/78 Code: 8480-6 BMI: 45.0 Code: 34146-8 Heart Rate 1: 60 bpm Height: 5'6" SpO2: 98% Weight: 283 lbs 04/19/2014 Blood Pressure 1: 130/62 Code: 8480-6 BMI: 44.7 Code: 33302-9 Heart Rate 1: 56 bpm Height: 5'6" Weight: 281 lbs 02/08/2014 Blood Pressure 1: 118/58 Code: 8480-6 BMI: 45.3 Code: 17574-7 Heart Rate 1: 60 bpm Height: 5'6" Weight: 285 lbs 01/13/2014 Blood Pressure 1: 112/52 Code: 8480-6 BMI: 44.2 Code: 61487-0 Heart Rate 1: 60 bpm Height: 5'6" Weight: 278 lbs 10/14/2013 Blood Pressure 1: 132/70 Code: 8480-6 BMI: 43.1 Code: 48006-6 Heart Rate 1: 60 bpm Height: 5'6" Weight: 271 lbs 07/01/2013 Blood Pressure 1: 158/76 Code: 8480-6 Heart Rate 1: 52 bpm Weight: 263 lbs 05/13/2013 Weight: 268 lbs 04/15/2013 Weight: 272 lbs 03/04/2013 Blood Pressure 1: 146/68 Code: 8480-6 BMI: 45.6 Code: 20367-8 Heart Rate 1: 68 bpm Height: 5'6" Weight: 287 lbs 02/04/2013 Blood Pressure 1: 140/68 Code: 8480-6 BMI: 46.1 Code: 85672-6 Heart Rate 1: 64 bpm Height: 5'6" Weight: 290 lbs 12/03/2012 Blood Pressure 1: 124/62 Code: 8480-6 BMI: 44.8 Code: 12281-9 Heart Rate 1: 64 bpm Height: 5'6" [...] 1: 146/76 Code: 8480-6 BMI: 44.7 Code: 95207-7 Heart Rate 1: 60 bpm Height: 5'6" Weight: 281 lbs 06/25/2012 Blood Pressure 1: 128/76 Code: 8480-6 BMI: 43.7 Code: 81820-3 Heart Rate 1: 72 bpm Height: 5'6" Weight: 275 lbs 06/03/2012 Blood Pressure 1: 136/62 Code: 8480-6 BMI: 43.2 Code: 26926-0 Heart Rate 1: 72 bpm Height: 5'6" Respiratory Rate: 20 bpm Weight: 272 lbs 04/24/2012 Blood Pressure 1: 116/60 Code: 8480-6 BMI: 42.3 Code: 91326-1 Heart Rate 1: 68 bpm Height: 5'6" Respiratory Rate: 16 bpm Weight: 266 lbs 04/09/2012 Blood Pressure 1: 150/82 Code: 8480-6 Heart Rate 1: 72 bpm Weight: 03/04/2012 Blood Pressure 1: 124/70 Code: 8480-6 Heart Rate 1: 72 bpm Respiratory Rate: 16 bpm Weight: 277 lbs 12/03/2011 Blood Pressure 1: 120/60 Code: 8480-6 BMI: 44.8 Code: 76429-1 Heart Rate 1: 68 bpm Height: 5'6" Respiratory Rate: 16 bpm Weight: 282 lbs 10/31/2011 Blood Pressure 1: 120/60 Code: 8480-6 BMI: 44.8 Code: 79910-7 Heart Rate 1: 74 bpm Height: 5'6" Respiratory Rate: 16 bpm Weight: 282 lbs 08/29/2011 Blood Pressure 1: 152/76 Code: 8480-6 BMI: 44.5 Code: 09690-9 Heart Rate 1: 66 bpm Height: 5'6" Respiratory Rate: 16 bpm Weight: 280 lbs 07/24/2011 Blood Pressure 1: 142/80 Code: 8480-6 BMI: 44.8 Code: 28895-9 Heart Rate 1: 66 bpm Height: 5'6" Respiratory Rate: 16 bpm Weight: 282 lbs 07/18/2011 Blood Pressure 1: 136/60 Code: 8480-6 BMI: 44.5 Code: 68432-3 Heart Rate 1: 72 bpm Height: 5'6" Respiratory Rate: 16 bpm Weight: 280 lbs Functional Status No Functional Status data History of Present Illness Symptom Name Status Result Effective Date Notes _ infection 01/26/2019 None Onset of Symptom [...] when he could not remember what the graduate teaching assistant was talking about at [facility] - pt states that he has had [...] data Encounters Encounter Performer Location Codes Date 83286 EST. PATIENT, LEVEL IV Diagnosis: Urinary tract infection, site not specified[ICD10: N39.0] Diagnosis: Syncope and collapse[ICD10: R55] Diagnosis: Infection following a procedure, other surgical site, initial encounter[ICD10: T81.49XA] Maria Victoria Harrell MD, [facility] CPT-4: 96612 01/26/2019 [id number]) 40396 EST. PATIENT, LEVEL IV Diagnosis: Essential (primary) hypertension[ICD10: I10] Diagnosis: Type 2 diabetes mellitus without complications[ICD10: E11.9] Diagnosis: Morbid (severe) obesity due to excess calories[ICD10: E66.01] Maria Victoria Harrell MD, [facility] CPT-4: 82668 01/08/2019 ([id number]) 10548 EST. PATIENT, LEVEL IV Diagnosis: Essential (primary) hypertension[ICD10: I10] Diagnosis: Type 2 diabetes mellitus without complications[ICD10: E11.9] Diagnosis: Mixed hyperlipidemia[ICD10: E78.2] Maria Victoria Harrell MD, [facility] CPT- 4: 87907 10/09/2018 ([id number]) 10283 EST. PATIENT, LEVEL IV Diagnosis: Type 2 diabetes mellitus with hyperglycemia[ICD10: E11.65] Diagnosis: Essential (primary) hypertension[ICD10: I10] Diagnosis: Low back pain[ICD10: M54.5] Maria Victoria Harrell MD, [facility] CPT-4: 26257 07/07/2018 ([id number]) 83249 EST. 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 PATIENT, LEVEL IV Diagnosis: Type 2 diabetes mellitus with hyperglycemia[ICD10: E11.65] Diagnosis: Essential (primary) hypertension[ICD10: I10] Diagnosis: Arthralgia of bilateral temporomandibular joint[ICD10: M26.623] Maria Victoria Harrell MD, [facility] CPT-4: 73152 11/21/2017 ([id number]) 13021 EST. PATIENT, LEVEL IV Diagnosis: Type 2 diabetes mellitus without complications[ICD10: E11.9] Diagnosis: Essential (primary) hypertension[ICD10: I10] Diagnosis: Mixed hyperlipidemia[ICD10: E78.2] Maria Victoria Harrell MD, [facility] CPT- 4: 78059 07/29/2017 ([id number]) 71234 EST. PATIENT, LEVEL III Diagnosis: Lumbago with sciatica, right side[ICD10: M54.41] Sunitha Harrell MD, [facility] CPT-4: 01399 06/04/2017 ([id number]) 09893 EST. 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 PATIENT, LEVEL IV Diagnosis: Essential (primary) hypertension[ICD10: I10] Diagnosis: Type 2 diabetes mellitus without complications[ICD10: E11.9] Maria Victoria Harrell MD, [facility] CPT-4: 16124 12/05/2016 ([id number]) 43267 EST. PATIENT, LEVEL IV Diagnosis: Essential (primary) hypertension[ICD10: I10] Diagnosis: Type 2 diabetes mellitus with hyperglycemia[ICD10: E11.65] Diagnosis: Morbid (severe) obesity due to excess calories[ICD10: E66.01] Diagnosis: Essential tremor[ICD10: G25.0] Diagnosis: Pain in right hip[ICD10: M25.551] Maria Victoria Harrell MD, [facility] CPT- 4: 80459 08/30/2016 ([id number]) 83779 EST. PATIENT, LEVEL III Diagnosis: Pain in left forearm[ICD10: M79.632] Diagnosis: Dysuria[ICD10: R30.0] Sunitha Harrell MD, [facility] CPT-4: 21267 07/13/2016 ([id number]) 26055 EST. PATIENT, LEVEL III Diagnosis: Type 2 diabetes mellitus with hyperglycemia[ICD10: E11.65] Diagnosis: Essential tremor[ICD10: G25.0] Diagnosis: Encounter for immunization[ICD10: Z23] Diagnosis: Essential (primary) hypertension[ICD10: I10] Maria Victoria Harrell MD, [facility] CPT-4: 66073 05/24/2016 [id number]) 87435 EST. PATIENT, LEVEL IV Diagnosis: Type 2 diabetes mellitus with hyperglycemia[ICD10: E11.65] Diagnosis: Essential (primary) hypertension[ICD10: I10] Diagnosis: Dorsalgia, unspecified[ICD10: M54.9] Maria Victoria Harrell MD, [facility] CPT- 4: 86309 01/24/2016 ([id number]) 88723 EST. PATIENT, LEVEL IV Diagnosis: Type 2 diabetes mellitus with hyperglycemia[ICD10: E11.65] Diagnosis: Essential (primary) hypertension[ICD10: I10] Diagnosis: Dorsalgia, unspecified[ICD10: M54.9] Maria Victoria Harrell MD, [facility] CPT- 4: 72527 10/27/2015 ([id number]) 53890 EST. PATIENT, LEVEL III Diagnosis: Type 2 diabetes mellitus with hyperglycemia[ICD10: E11.65] Maria Victoria Harrell MD [facility] CPT-4: 11143 09/21/2015 ([id number]) 74399 EST. PATIENT, LEVEL IV Diagnosis: Type 2 diabetes mellitus with hyperglycemia[ICD10: E11.65] Diagnosis: Essential (primary) hypertension[ICD10: I10] Maria Victoria Harrell MD [facility] CPT-4: 64240 08/17/2015 ([id number]) 25326 EST. PATIENT, LEVEL IV Diagnosis: VACCIN FOR INFLUENZA[ICD10: Z23] Diagnosis: Type 2 diabetes mellitus with hyperglycemia[ICD10: E11.65] Diagnosis: Morbid (severe) obesity due to excess calories[ICD10: E66.01] Diagnosis: Dorsalgia, unspecified[ICD10: M54.9] Maria Victoria Harrell MD [facility] CPT- 4: 22288 07/20/2015 ([id number]) 33830 EST. PATIENT, LEVEL IV Diagnosis: Diabetes mellitus type 2, uncontrolled[ICD9: 250.02] Diagnosis: ESSENTIAL HYPERTENSION[ICD9: 401.9] Diagnosis: MORBID OBESITY[ICD9: 278.01] Diagnosis: Peripheral neuropathic pain[ICD9: 356.9] Diagnosis: Diabetic neuropathy[ICD9: 250.60] Maria Victoria Harrell MD [facility] CPT- 4: 03732 04/20/2015 ([id number]) Miscellaneous no charge Diagnosis: Cerumen impaction[ICD9: 380.4] Maria Victoria Harrell MD [facility] CPT-4: 65738 02/28/2015 ([id number]) 44333 EST. PATIENT, LEVEL IV Diagnosis: Diabetes mellitus type 2, uncontrolled[ICD9: 250.02] Diagnosis: ESSENTIAL HYPERTENSION[ICD9: 401.9] Maria Victoria Harrell MD [facility] CPT- 4: 77455 02/14/2015 ([id number]) 12308 EST. PATIENT, LEVEL III Diagnosis: Diabetes mellitus type 2, uncontrolled[ICD9: 250.02] Maria Victoria Harrell MD [facility] CPT-4: 34483 11/11/2014 ([id number]) 51109 EST. PATIENT, LEVEL IV Diagnosis: ESSENTIAL HYPERTENSION[ICD9: 401.9] Diagnosis: DIABETES TYPE II[ICD9: 250.00] Diagnosis: Esophageal reflux[ICD9: 530.81] Diagnosis: DYSPHAGIA NEC[ICD9: 787.29] Maria Victoria Harrell MD, [facility] CPT-4: 47161 10/04/2014 ([id number]) 23468 EST. PATIENT, LEVEL IV Diagnosis: DIABETES TYPE II[ICD9: 250.00] Diagnosis: ESSENTIAL HYPERTENSION[ICD9: 401.9] Diagnosis: BPH (benign prostatic hyperplasia)[ICD9: 600.00] Maria Victoria Harrell MD, [facility] CPT-4: 56073 08/02/2014 ([id number]) 56780 EST. PATIENT, LEVEL III Diagnosis: Enlarged prostate[ICD9: 600.00] Maria Victoria Harrell MD, [facility] CPT-4: 24546 06/15/2014 ([id number]) 79138 EST. PATIENT, LEVEL III Diagnosis: Right hip pain[ICD9: 719.45] Diagnosis: BACKACHE[ICD9: 724.5] Diagnosis: Sacroiliitis[ICD9: 720.2] Sunitha Harrell MD, [facility] CPT-4: 50284 05/04/2014 ([id number]) 06835 EST. PATIENT, LEVEL IV Diagnosis: DM W/O COMPLICATION TYPE II, UNCONTROLLED[ICD9: 250.02] Diagnosis: ESSENTIAL HYPERTENSION[ICD9: 401.9] Maria Victoria Harrell MD [facility] CPT- 4: 29549 04/19/2014 ([id number]) 46715 EST. PATIENT, LEVEL IV Diagnosis: Mild cognitive impairment[ICD9: 331.83] Diagnosis: Nightmares[ICD9: 307.47] Diagnosis: Sleep apnea[ICD9: 780.57] Maria Victoria Harrell MD [facility] CPT-4: 46542 02/08/2014 ([id number]) 06733 EST. PATIENT, LEVEL III Diagnosis: DM W/O COMPLICATION TYPE II, UNCONTROLLED[ICD9: 250.02] Maria Victoria Harrell MD, [facility] CPT-4: 88167 01/13/2014 ([id number]) 17103 EST. 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 PATIENT, LEVEL IV Diagnosis: DIABETES TYPE II[SNOMED: 874111286] Diagnosis: ESSENTIAL HYPERTENSION[SNOMED: 91314586] Diagnosis: Flat feet[ICD9: 734] Maria Victoria Harrell MD [facility] CPT-4: 36038 07/01/2013 ([id number]) Miscellaneous no charge Diagnosis: DM W/O COMPLICATION TYPE II, UNCONTROLLED[SNOMED: 61886318] Diagnosis: MORBID OBESITY[ICD9: 278.01] Maria Victoria Harrell MD [facility] CPT-4: 41074 05/13/2013 ([id number]) Miscellaneous no charge Diagnosis: MORBID OBESITY[ICD9: 278.01] Maria Victoria Harrell MD, [facility] CPT-4: 66665 04/15/2013 ([id number]) 19440 EST. PATIENT, LEVEL III Diagnosis: DM W/O COMPLICATION TYPE II, UNCONTROLLED[SNOMED: 02772869] Diagnosis: Dietary restriction[ICD9: V65.3] Diagnosis: Morbid obesity with BMI of 40.0-44.9, adult[ICD9: 278.01] Maria Victoria Harrell MD [facility] CPT-4: 30986 03/04/2013 ([id number]) 74267 EST. PATIENT, LEVEL IV Diagnosis: DM W/O COMPLICATION TYPE II, UNCONTROLLED[SNOMED: 27866468] Diagnosis: ENTHESOPATHY OF HIP[ICD9: 726.5] Diagnosis: BACKACHE[ICD9: 724.5] Maria Victoria Harrell MD [facility] CPT-4: 94115 02/04/2013 ([id number]) 72399 EST. PATIENT, LEVEL III Diagnosis: DM W/O COMPLICATION TYPE II, UNCONTROLLED[SNOMED: 93080211] Maria Victoria Harrell MD [facility] CPT-4: 59274 12/03/2012 ([id number]) 02326 EST. PATIENT, LEVEL III Diagnosis: Tinnitus[ICD9: 388.30] Diagnosis: Cerumen impaction[ICD9: 380.4] Sunitha Harrell MD, [facility] CPT-4: 62092 10/14/2012 ([id number]) 15766 EST. PATIENT, LEVEL III Diagnosis: ENTHESOPATHY OF HIP[ICD9: 726.5] Diagnosis: JOINT PAIN-PELVIS[ICD9: 719.45] Maria Victoria Harerll MD, [facility] CPT-4: 46796 09/29/2012 90106 EST. PATIENT, LEVEL II Diagnosis: Right hip pain[ICD9: 719.45] Diagnosis: Bursitis of hip, right[ICD9: 726.5] Diagnosis: DM W/O COMPLICATION TYPE II, UNCONTROLLED[SNOMED: 22696706] Sunitha Harrell MD, [facility] CPT-4: 57158 09/25/2012 ([id number]) 44648 EST. PATIENT, LEVEL III Diagnosis: DM W/O COMPLICATION TYPE II, UNCONTROLLED[SNOMED: 81085870] Maria Victoria Harrell MD, [facility] CPT-4: 39174 08/27/2012 ([id number]) 30020 EST. PATIENT, LEVEL III Diagnosis: Diabetes mellitus out of control[SNOMED: 99133548] Maria Victoria Harrell MD, [facility] CPT-4: 72526 06/25/2012 ([id number]) 33159 EST. PATIENT, LEVEL III Diagnosis: DM W/O COMPLICATION TYPE II, UNCONTROLLED[SNOMED: 29958101] Diagnosis: ESSENTIAL HYPERTENSION[SNOMED: 21800520] Maria Victoria Harrell MD, [facility] CPT-4: 11867 06/03/2012 ([id number]) 88762 EST. PATIENT, LEVEL III Diagnosis: DM W/O COMPLICATION TYPE II, UNCONTROLLED[SNOMED: 18822312] Diagnosis: Back pain[ICD9: 724.5] Maria Victoria Harrell MD, [facility] CPT-4: 44116 04/24/2012 ([id number]) 43638 EST. PATIENT, LEVEL IV Diagnosis: BACKACHE[ICD9: 724.5] Diagnosis: MORBID OBESITY[ICD9: 278.01] Diagnosis: Depression[ICD9: 311] Maria Victoria Harrell MD, [facility] CPT-4: 78060 04/09/2012 ([id number]) 97476 EST. PATIENT, LEVEL IV Diagnosis: Diabetes mellitus type 2, uncontrolled[SNOMED: 86923694] Diagnosis: ESSENTIAL HYPERTENSION[SNOMED: 02522382] Maria Victoria Harrell MD [facility] CPT-4: 81718 03/04/2012 ([id number]) 95623 EST. PATIENT, LEVEL IV Diagnosis: DM W/O COMPLICATION TYPE II, UNCONTROLLED[SNOMED: 72623252] Diagnosis: MORBID OBESITY[ICD9: 278.01] Maria Victoria Harrell MD [facility] CPT-4: 80325 12/03/2011 ([id number]) 33924 EST. PATIENT, LEVEL IV Diagnosis: DM W/O COMPLICATION TYPE II, UNCONTROLLED[SNOMED: 95121481] Diagnosis: ESSENTIAL HYPERTENSION[SNOMED: 89648258] Diagnosis: Hyperlipidemia[ICD9: 272.4] Diagnosis: Morbid obesity[ICD9: 278.01] Maria Victoria Harrell MD [facility] CPT-4: 03651 10/31/2011 ([id number]) 52618 EST. PATIENT, LEVEL IV Diagnosis: ESSENTIAL HYPERTENSION[SNOMED: 42733313] Diagnosis: DM W/O COMPLICATION TYPE II, UNCONTROLLED[SNOMED: 39326235] Diagnosis: MORBID OBESITY[ICD9: 278.01] Maria Victoria Harrell MD [facility] CPT-4: 55769 08/29/2011 81652 EST. PATIENT, LEVEL IV Diagnosis: Diabetes mellitus type 2, uncontrolled[SNOMED: 49912222] Diagnosis: ESSENTIAL HYPERTENSION[SNOMED: 79893415] Diagnosis: Actinic keratosis[ICD9: 702.0] Maria Victoria Harrell MD, [facility] CPT-4: 72142 07/18/2011 Plan of Care Planned Activity Notes Codes Status Date Visit Plan: UTI -positive klebsiella and pseudomonas-patient [...] wound heals 01/26/2019 Appointment: [phone] [facility] [place] [place] (30 min) Complex 01/26/2019 Patient Education: Patient Medication Summary Completed [...] restrictions. 01/08/2019 [facility]ment[phone] ([facility] Complex 01/08/2019 Patient Education: Patient Medication Summary Completed 01/08/2019 Patient Education: Diabetes Completed 01/08/2019 Patient Education: Obesity Completed 01/08/2019 Patient Education: Patient Medication Summary Completed 01/07/2019 App[facility]ment: [phone] [facility] (15 min) Moderate 11/10/2018 Visit Plan: Diabetes [...] Appointment: [phone] [facility] ([facility] min) Complex 10/09/2018 Patient Education: Patient Medication Summary Completed 10/09/2018 Patient Education: Diabetes Completed 10/09/2018 Patient Education: Cholesterol Management Completed 10/09/2018 Care Plan: Referral Order SNOMED-CT : 745440624 Pending 10/09/2018 Patient Education: Patient Medication Summary [...] Mai 07/07/2018 Appointment: Maria Victoria Harrell WPtel: [facility] [place] (15 min) Moderate 07/07/2018 Patient Education: [...] 05/21/2018 Appointment: Maria Victoria Harrell WPtel: [phone] [facility] (15 min) Moderate 05/21/2018 Patient Education: Patient [...] 03/06/2018 Appointment: Maria Victoria Harrell WPtel: [phone] [facility] (15 min) Moderate 03/06/2018 Patient Education: Patient Medication Summary Completed 03/06/2018 Patient Education: Obesity Completed 03/06/2018 Patient Education: Patient Medication Summary Completed 03/03/2018 Care Plan: %Hba1C [facility] : 71169-4 Pending 03/03/2018 Visit Plan: Medicare Exam - [...] Appointment: [facility] [phone] [facility] [phone] [facility] - Annual Wellness Visit 12/19/2017 Visit [...] 11/21/2017 Appointment: [phone] [facility] (15 min) Moderate 11/21/2017 Patient Education: Patient [...] 07/29/2017 Appointment: [phone] [facility] ([facility] min) Moderate 07/29/2017 Patient Education: Patient Medication Summary Completed 07/29/2017 Patient Education: Obesity Completed 07/29/2017 Visit Plan: Skin tag removed - pt tolerated procedure well - Wound Instructions - Pt was instructed to keep the wound clean, wash with antibacterial soap, use triple antibiotic ointment, call if redness, pustular drainage, or any other acute concerns. 07/02/2017 Appointment: [facility] Carrillo [phone] [place] (30 min) Complex 07/02/2017 Patient Education: Patient Medication Summary Completed 07/02/2017 Appointment: Injection 06/28/2017 Patient Education: Patient Medication Summary Completed 06/28/2017 Visit Plan: Sciatica- exercises discussed with the patient, pt to continue with antiinflammatories. Pt is to call if the symptoms do not improve or if they worsen. Kenalog injection today in the office. 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 Hypertension - well controlled - continue with current medications, continue with no added salt diet. Pt has been encouraged to exercise daily. The pt has been advised to call the office if there are any acute concerns about change in blood pressure readings at home. 04/03/2017 Appointment: Maria Victoria Harrell WPtel: [address] [place], [place] [address] (15 min) Moderate 04/03/2017 Patient Education: Patient [...] surrogate. 12/13/2016 Appointment: [facility] Moran [phone] [facility] [place] [place] [address] - Annual Wellness Visit 12/13/2016 Patient Education: Patient Medication Summary Completed 12/13/2016 Care Plan: Referral Order SNOMED-CT : [id number] Pending 12/13/2016 Visit Plan: Hypertension - well [...] 12/05/2016 [facility]ment[phone] (15 min) Moderate 12/05/2016 Patient Education: Patient Medication Summary Completed 12/05/2016 Patient Education: Obesity Completed 12/05/2016 Care Plan: CT ABD & PELVIS W/O CONTRAST LOINC : 35025-0 Pending 12/05/2016 Patient Education: Patient Medication Summary [...] 08/30/2016 Appointment: Maria Victoria Harrell WPtel: [phone] [facility] [place] (15 min) Moderate 08/30/2016 Patient Education: Patient Medication Summary Completed 08/30/2016 Patient Education: Obesity Completed 08/30/2016 Patient Education: Hypertension Completed 08/30/2016 Patient Education: Patient Medication Summary Completed 08/23/2016 Visit Plan: Left forearm pain-use voltaren gel as needed-xray forearm for further evaluation UA negative-patient instructed to increase po fluids-call if symptoms do not resolve 07/13/2016 Appointment: Sunitha Moran WPtel: [phone] [place] (10 min) Simple 07/13/2016 Patient Education: [...] disease process. 06/21/2016 Appointment: Sunitha Moran WPtel: [phone] [place] (30 min) Complex 06/21/2016 Patient Education: Patient Medication Summary Completed 06/21/2016 Appointment: Sunitha Moran WPtel: [phone] [phone] [place] (30 min) Complex 06/15/2016 Visit Plan: [...] 01/24/2016 App[facility]ment: [phone] [place] (15 min) Moderate 01/24/2016 Patient Education: [...] improve. 10/27/2015 Appointment: Maria Victoria Harrell WPtel: [address] [place], [place] [address] (15 min) Moderate 10/27/2015 Patient Education: Patient [...] supper 09/21/2015 Appointment: Maria Victoria Harrell WPtel: [phone] [facility] (15 min) Moderate 09/21/2015 Patient Education: Patient [...] home. 08/17/2015 App[facility]ment: [phone] ([facility] min) Moderate 08/17/2015 Patient Education: Patient [...] 07/20/2015 Appointment: [phone] (15 min) Moderate 07/20/2015 Patient Education: Patient [...] App[facility]ment: [phone] (15 min) Moderate 04/20/2015 Patient Education: Patient [...] 02/14/2015 Appointment: Maria Victoria Harrell WPtel: [phone] [facility] Follow up 02/14/2015 Patient Education: Patient [...] 11/11/2014 Appointment: Maria Victoria Harrell WPtel: [phone] [facility] Follow up 11/11/2014 Patient Education: Patient Medication Summary Completed 11/11/2014 Appointment: [phone] Follow up 11/04/2014 Visit Plan: Esophageal Reflux [...] home. 10/04/2014 Appointment: Maria Victoria Harrell WPtel[facility] Follow up 10/04/2014 Patient Education: Patient Medication Summary Completed 10/04/2014 Patient Education: Hypertension Completed 10/04/2014 Appointment: Maria Victoria Harrell WPtel: [facility] Follow up 08/19/2014 Visit Plan: Diabetes Mellitus [...] avodart 08/02/2014 Appointment: Maria Victoria Harrell WPtel: [facility] Sick 08/02/2014 Patient Education: Patient Medication Summary Completed 08/02/2014 Patient Education: Hypertension Completed 08/02/2014 Visit Plan: Enlarged prostate with decreased urine flow - recommended that the patient start on tamsulosin 0.4mg daily - will need to start him on this in about 2-3 weeks. Check PSA in 2-3 weeks. 06/15/2014 Appointment: Maria Victoria Harrell WPtel[facility] Follow up 06/15/2014 Patient Education: Patient Medication Summary Completed 06/15/2014 Appointment: [facility]el[phone] [place] Injection 06/03/2014 Patient Education: Patient Medication [...] - pt to see this Opthamologist in [place] - May 25. 04/19/2014 Appointment: [facility]el[phone] Follow up 04/19/2014 Patient Education: Patient Medication [...] 02/08/2014 Appointment: [facility]el[phone] Follow up 02/08/2014 Patient Education: Patient Medication [...] shoes. 01/13/2014 Appointment: Maria Victoria Harrell WPtel[facility] Follow up 01/13/2014 Patient Education: Patient Medication [...] - recommended referral to Dr. Fine at [facility]. 10/14/2013 Patient [...] support. 07/01/2013 Appointment: Maria Victoria Harrell WPtel: [phone] [facility] Follow up 07/01/2013 Patient Education: Patient Medication Summary Completed 07/01/2013 Patient Education: Hypertension Completed 07/01/2013 Appointment: Maria Victoria Harrell WPtel: [phone] [facility] [place] Other 05/13/2013 Patient Education: Patient Medication Summary Completed 05/13/2013 Appointment: Marai Victoria Harrell WPtel: [phone] [facility] Other 04/15/2013 Patient Education: Patient Medication [...] loss. 03/04/2013 Appointment: Maria Victoria Harrell WPtel: [phone] [facility] Follow up 03/04/2013 Patient Education: Patient [...] body. 02/04/2013 Appointment: Maria Victoria Harrell WPtel: [facility] Follow up 02/04/2013 Patient Education: Patient [...] bedtime. 12/03/2012 Appointment: Maria Victoria Harrell WPtel: [facility] Follow up 12/03/2012 Patient Education: Patient Medication Summary Completed 12/03/2012 Visit Plan: Tinnitus-cerumen impaction-cerumen adhered to left TM-discussed using sweet oil nightly for the next week and call if symptoms have not improved. Patient verbalized understanding of plan . 10/14/2012 Appointment: Sunitha Moran WPtel: [phone] [phone] Sick 10/14/2012 Patient Education: Patient Medication Summary Completed 10/14/2012 Visit Plan: Arthritis- occasionally uncontrolled symptoms- recommend pt to take antiinflammatory as directed for pain control. Use tylenol for break through pain symptoms. 09/29/2012 Appointment: Maria Victoria Harrell WPtel: [phone] [facility] [place] Other 09/29/2012 Patient Education: Patient Medication [...] blood sugars 09/25/2012 Appointment: Sunitha Moran WPtel: [phone] [phone] [place] Other 09/25/2012 Patient Education: Patient Medication [...] DAILY. 08/27/2012 Appointment: Maria Victoria Harrell WPtel: [phone] [facility] Follow up 08/27/2012 Patient Education: Patient [...] 06/25/2012 Appointment: Maria Victoria Harrell WPtel: [phone] [facility] Follow up 06/25/2012 Patient Education: Patient [...] 06/03/2012 Appointment: Maria Victoria Harrell WPtel: [phone] [facility] Follow up 06/03/2012 Patient Education: Patient [...] 04/24/2012 Appointment: Maria Victoria Harrell WPtel: [phone] [facility] Follow up 04/24/2012 Patient Education: Patient [...] 04/09/2012 Appointment: [facility]el[phone] [place] Other 04/09/2012 Patient Education: Patient Medication Summary Completed 04/09/2012 Patient Education: .Amazing charts Exercise for Sciatica Completed 04/09/2012 Appointment: [phone] [place] Other 03/13/2012 Visit Plan: Diabetes Mellitus [...] 03/04/2012 Appointment: Maria Victoria Harrell WPtel: [phone] [facility] Other 03/04/2012 Patient Education: Patient Medication [...] pains/fatigue. 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 10/31/2011 Appointment: [facility]el[phone] Other 10/31/2011 Patient Education: Patient Medication Summary [...] 08/29/2011 Appointment: [facility]Ptel: [phone] Other 08/29/2011 Patient Education: Patient Medication Summary Completed 08/29/2011 Patient Education: High Blood Pressure: Essential Hypertension Completed 08/29/2011 Visit Plan: left index finger irritated actinic keratosis removed actinic keratosis removed from dorsum of hand as well and in web of the 4th digit 07/24/2011 Appointment: Maria Victoria [facility]Ptel[phone] [facility] Procedure 07/24/2011 Patient Education: Patient Medication [...] daily. 07/18/2011 Appointment: Maria Victoria Harrell WPtel: [facility] [facility] 07/18/2011 Patient Education: Patient Medication Summary Completed 07/18/2011 Patient Education: High Blood Pressure: Essential Hypertension Completed 07/18/2011 Referral: Jose Manuel Referral Appointment Requested Referral: [facility] Referral Appointment Requested Referral: Kiran Laird MD WPtel: Referral Completed Instructions Comment . UTI -positive klebsiella and pseudomonas-patient is [...] cystic tissue -wound vac until wound heals . Hypertension - well controlled - continue [...] low back Essential tremor - supportive care trujeo - new insulin dose would be 60 units daily Belviq for weight loss - 10mg twice daily - see cost at [facility] . Diabetes Mellitus - Uncontrolled [...] Patient verbalized understanding of plan . . 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 decrease toujeo to 25 units next week [...] drainage, or any other acute concerns. . Diabetes Mellitus - Uncontrolled - per [...] of only 3 units increase was made. VIMOVO 1 TAB TWICE DAILY . Trigger [...] by renal function or other disease process. Dr. Mai at [place] - Cardiothoracic surgeon. . Hypertension - well [...] of the lesion, increase in pain. . Hypertension - well controlled - [...] RTC in one month for weight check. increase the novolog to 10 units breakfast, [...] - he does not have Parkinson's disease. joint juice, joint ease, glucosamine and chondroiton [...] - recommended referral to Dr. Fine at [facility]. . Hypertension - well controlled - continue [...] - pt to see this Opthamologist in [place] - May 25. BRING IN THE GLUCOMETER [...] daily at night. . Diabetes Mellitus - Uncontrolled - per [...] Obesity - continue with dietary restriction. . Ears clear today-no need for further treatment or ear lavage today 5 units of insulin at Breakfast, 8 [...]
--- NOTE | 2019-02-27 21:14 | ED Fever ---
History of Present Illness General Chief Complaint: Fever-Adult/Adol Stated Complaint: FEVER Nursing Triage Note: PT ARRIVES WITH C/O FEVER OF 101.8 45 MINUTES PRIOR TO ARRIVAL. PT STATES HE TOOK TYLENOL AT 1600 TODAY. PT HAS A WOUND ON STOMACH THAT HE JUST HAD A WOUND VAC REMOVED FROM TODAY AND WET/DRY DRESSING APPLIED. PT DENIES N/V/D/FEVER. Sepsis Screen: No Definite Risk Source: patient, spouse Exam Limitations: no limitations History of Present Illness Date Seen by Provider: Feb 27, 2019 Time Seen by Provider: 20:25 Initial Comments Patient presents to ER by private conveyance with his significant other and chief complaint of feeling a little feverish tonight so he took his temperature and it was 101.8. He did not take anything antipyretic. He had some aspirin for headache earlier in the day around 3 or 4:00 in the afternoon, 4-5 hours prior to arrival. Upon arrival nursing reports he has a temperature of 98 0. He has no nausea vomiting diarrhea. He has a wound VAC removed today at [facility] and a wet to dry dressing placed. Plans to have the wet-to-dry dressing changed daily for the next 2 days and then follow up with Dr. Ramos, surgery on Saturday in the clinic. He is not currently on antibiotics. 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 Allergies and Home Medications Allergies Coded Allergies: morphine (Verified Adverse Reaction, Intermediate, PSYCH ISSUES, 01/21/17) Home Medications Acetaminophen 500 Mg Tablet, 500 MG PO Q6H PRN for PAIN-MILD TO MODERATE Prescribed by: CJ JOYA on 01/16/19 0947 Aspirin 81 Mg Tab.chew, 81 MG PO DAILY, (Reported) Carbidopa/Levodopa 1 Each Tablet, 1 EACH PO TID, (Reported) Clopidogrel Bisulfate 75 Mg Tablet, 75 MG PO DAILY@1200, (Reported) Finasteride 5 Mg Tablet, 5 MG PO DAILY@1700, (Reported) Hydrocodone Bit/Acetaminophen 1 Tab Tab, 1 TAB PO Q4H PRN for PAIN-MODERATE Prescribed by: CJ JOYA on 01/16/19 09 Ibuprofen 200 Mg Capsule, 600 MG PO TID PRN for PAIN-MODERATE Prescribed by: CJ JOYA on 01/16/19 09 Irbesartan 300 Mg Tablet, 300 MG PO DAILY, (Reported) Lovastatin 20 Mg Tablet, 20 MG PO HS, (Reported) Magnesium Oxide 400 Mg Tablet, 400 MG PO HS, (Reported) Magnesium Oxide 250 Mg Tablet, 250 MG PO DAILY, (Reported) Metformin HCl 1,000 Mg Tablet, 1,000 MG PO BID, (Reported) Metoprolol Succinate 25 Mg Tab.er.24h, 25 MG PO DAILY@1200, (Reported) Kendall-3/Dha/Epa/Dpa/Fish Oil 1 Each Capsule, 1 EACH PO BID, (Reported) Pantoprazole Sodium 40 Mg Tablet.dr, 40 MG PO DAILY@1200, (Reported) Ubidecarenone 100 Mg Capsule, 100 MG PO DAILY, (Reported) Vitamin B Complex 1 Each Tablet, 1 EACH PO DAILY, (Reported) Vitamin D3/Vitamin K2 1 Each Tab.rapdis, 1 EACH PO DAILY, (Reported) [electrolyte power] , 1 EACH PO BID, (Reported) Patient Home Medication List Home Medication List Reviewed: Yes Review of Systems Review of Systems Constitutional: No chills, No diaphoresis EENTM: No hearing loss, No ear pain Respiratory: No cough, No short of breath Cardiovascular: No chest pain, No edema Gastrointestinal: No abdominal pain, No constipation, No diarrhea, No nausea Genitourinary: No discharge, No dysuria Musculoskeletal: No back pain, No joint pain Past Bqlijsh-Mfeuqx-Cdblpv Hx Patient Social History Alcohol Use: Denies Use Recreational Drug Use: No Smoking Status: Never a Smoker 2nd Hand Smoke Exposure: No Recent Foreign Travel: No Contact w/Someone Who Travel: No Recent Infectious Disease Expo: No Recent Hopitalizations: No Physical Abuse: No Sexual Abuse: No Mistreated: No Fear: No Immunizations Up To Date Date of Pneumonia Vaccine: Aug 28, 2011 Date of Influenza Vaccine: Jun 18, 2016 Seasonal Allergies Seasonal Allergies: No Past Medical History Surgeries: Yes (BACK, FATTY TUMOR REMOVED FROM ARM BABY) Respiratory: Yes Sleep Apnea Currently Using CPAP: Yes Cardiac: Yes High Cholesterol, Hypertension Neurological: No (tremors) Reproductive Disorders: No Sexually Transmitted Disease: No HIV/AIDS: No Genitourinary: Yes Benign Prostatic Hyperpl Gastrointestinal: No (abd wall mass) Gastroesophageal Reflux Musculoskeletal: No Endocrine: Yes Diabetes, Non-Insulin dep HEENT: Yes Macular Degeneration Loss of Vision: Bilateral Hearing Impairment: Hard of Hearing Cancer: No Psychosocial: No Integumentary: No Blood Disorders: No Adverse Reaction/Blood Tranf: No Family Medical History Arthritis Cardiovascular disease Cataracts Colon cancer Completed stroke Diabetes mellitus Hypertension Myocardial infarction Visual disorder Heart Disease, Hypertension Physical Exam Vital Signs - First Documented 02/27/19 20:43 Temp 98.4 Pulse 84 Resp 18 B/P (MAP) 119/59 (79) Capillary Refill : Less Than 3 Seconds Height: 5'7.00" Weight: 215lbs. oz. 97.705637ib; 35.6 BMI Method:Stated General Appearance: WD/WN, no apparent distress Eyes: Bilateral Eye Normal Inspection, Bilateral Eye PERRL, Bilateral Eye EOMI HEENT: PERRL/EOMI, normal ENT inspection, pharynx normal Neck: full range of motion Respiratory: normal breath sounds, no respiratory distress, no accessory muscle use Cardiovascular: normal peripheral pulses, regular rate, rhythm Gastrointestinal: normal bowel sounds, soft, other (. Faint erythema surroun ding the wound especially midline with a small area about palm size to the right of the wound with some mild induration possibly consistent with cellulitis) Progress/Results/Core Measures Suspected Sepsis Recent Fever Within 48 Hours: Yes Infection Criteria Present: None New/Unexplained Altered Menta: No Sepsis Screen: No Definite Risk SIRS Temperature:98.4 Pulse: 84 Respiratory Rate: 18 Laboratory Tests 02/27/19 21:20: White Blood Count 14.8H Blood Pressure 119 /59 Mean: 79 Laboratory Tests 02/27/19 21:20: Creatinine 1.07, Platelet Count 309, Total Bilirubin 0.6 Results/Orders Lab Results Laboratory Tests Test 02/27/19 21:20 Range/Units White Blood Count 14.8 H 4.3-11.0 10^3/uL Red Blood Count 3.05 L 4.35-5.85 10^6/uL Hemoglobin 9.1 L 13.3-17.7 G/DL Hematocrit 28 L 40-54 % Mean Corpuscular Volume 90 80-99 FL Mean Corpuscular Hemoglobin 30 25-34 PG Mean Corpuscular Hemoglobin Concent 33 32-36 G/DL Red Cell Distribution Width 13.4 10.0-14.5 % Platelet Count 309 130-400 10^3/uL Mean Platelet Volume 10.0 7.4-10.4 FL Neutrophils (%) (Auto) 83 H 42-75 % Lymphocytes (%) (Auto) 7 L 12-44 % Monocytes (%) (Auto) 10 0-12 % Eosinophils (%) (Auto) 1 0-10 % Basophils (%) (Auto) 0 0-10 % Neutrophils # (Auto) 12.2 H 1.8-7.8 X 10^3 Lymphocytes # (Auto) 1.0 1.0-4.0 X 10^3 Monocytes # (Auto) 1.4 H 0.0-1.0 X 10^3 Eosinophils # (Auto) 0.1 0.0-0.3 10^3/uL Basophils # (Auto) 0.1 0.0-0.1 10^3/uL Neutrophils % (Manual) 81 % Lymphocytes % (Manual) 5 % Monocytes % (Manual) 12 % Eosinophils % (Manual) 2 % Basophils % (Manual) 0 % Band Neutrophils 0 % Polychromasia SLIGHT Anisocytosis SLIGHT Rouleau SLIGHT Sodium Level 134 L 135-145 MMOL/L Potassium Level 4.1 3.6-5.0 MMOL/L Chloride Level 100 98-107 MMOL/L Carbon Dioxide Level 19 L 21-32 MMOL/L Anion Gap 15 H 5-14 MMOL/L Blood Urea Nitrogen 18 7-18 MG/DL Creatinine 1.07 0.60-1.30 MG/DL Estimat Glomerular Filtration Rate > 60 BUN/Creatinine Ratio 17 Glucose Level 191 H 70-105 MG/DL Calcium Level 9.1 8.5-10.1 MG/DL Corrected Calcium 9.7 8.5-10.1 MG/DL Total Bilirubin 0.6 0.1-1.0 MG/DL Aspartate Amino Transf (AST/SGOT) 19 5-34 U/L Alanine Aminotransferase (ALT/SGPT) 9 0-55 U/L Alkaline Phosphatase 94 40-136 U/L C-Reactive Protein High Sensitivity 21.72 H 0.00-0.50 MG/DL Total Protein 6.7 6.4-8.2 GM/DL Albumin 3.3 3.2-4.5 GM/DL My Orders Orders - SAMANTHA WARREN Cbc With Automated Diff (02/27/19 20:57) Comprehensive Metabolic Panel (02/27/19 20:57) Hs C Reactive Protein (02/27/19 20:57) Manual Differential (02/27/19 21:20) Ceftriaxone For Iv Use (Rocephin For I (02/27/19 22:45) Vital Signs/I&O 02/27/19 20:43 Temp 98.4 Pulse 84 Resp 18 B/P (MAP) 119/59 (79) Capillary Refill : Less Than 3 Seconds Blood Pressure Mean: 79 Progress Note #1: Time: 21:14 Progress Note Erythema, warmth and induration medial to the wound. Wet-to-dry dressing intact without significant serosanguineous drainage. Possible cellulitis. Check some basic labs. His fever does not exist on arrival so we'll recheck it after a while. Patient has requested that we do not remove his wet-to-dry dressing to examine it. Progress Note #2: Time: 22:46 Progress Note Suspect cellulitis, nonpurulent. We'll put him on Keflex 4 times a day and give him a shot of Rocephin tonight. Departure Impression Primary Impression: Cellulitis of left abdominal wall Disposition: HOME, SELF-CARE Condition: Stable Departure-Patient Inst. Decision time for Depature: 22:47 Referrals: CJ JOYA MD (PCP/Family) Primary Care Physician Patient Instructions: Cellulitis (Skin Infection), Adult (DC) Add. Discharge Instructions: Drink plenty fluids and keep your follow-up appointment to have the bandage changed tomorrow. bankruptcy judge the Keflex and start it in the morning one capsule 3 times a day with food and then at bedtime for the next 10 days. keep your follow-up appointment with Dr. Ramos Saturday. All discharge instructions reviewed with patient and/or family. Voiced understanding. Scripts Cephalexin (Cephalexin) 500 Mg Tablet 500 MG PO QID for 10 Days, #40 TAB 0 Refills Prov: SAMANTHA WARREN 02/27/19 SAMANTHA WARREN Feb 27, 2019 21:14
[2019-02-27 21:25] LABS: BASOPHILS # (AUTO) 0.1 10^3/uL (0.0-0.1); BASOPHILS % (AUTO) 0 % (0-10); EOSINOPHILS # (AUTO) 0.1 10^3/uL (0.0-0.3); EOSINOPHILS % (AUTO) 1 % (0-10); HEMATOCRIT 28 % (40-54); HEMOGLOBIN 9.1 G/DL (13.3-17.7); LYMPHOCYTES % (AUTO) 7 % (12-44); MEAN CORPUSCULAR HEMOGLOBIN 30 PG (25-34); MEAN CORPUSCULAR HGB CONC 33 G/DL (32-36); MEAN CORPUSCULAR VOLUME 90 FL (80-99); MONOCYTES # (AUTO) 1.4 X 10^3 (0.0-1.0); MONOCYTES % (AUTO) 10 % (0-12); NEUTROPHILS # (AUTO) 12.2 X 10^3 (1.8-7.8); NEUTROPHILS % (AUTO) 83 % (42-75); PLATELET COUNT 309 10^3/uL (130-400); RED CELL DISTRIBUTION WIDTH 13.4 % (10.0-14.5); WHITE BLOOD COUNT 14.8 10^3/uL (4.3-11.0)
[2019-02-27 21:40] LABS: BAND NEUTROPHILS 0 %; LYMPHOCYTES % (MANUAL) 5 %; MONOCYTES % (MANUAL) 12 %; NEUTROPHILS % (MANUAL) 81 %
[2019-02-27 21:41] LABS: ANISOCYTOSIS SLIGHT; BASOPHILS % (MANUAL) 0 %; EOSINOPHILS % (MANUAL) 2 %; POLYCHROMASIA SLIGHT; ROULEAUX SLIGHT
[2019-02-27 21:42] LABS: ALANINE AMINOTRANSFERASE 9 U/L (0-55); ALBUMIN 3.3 GM/DL (3.2-4.5); ALKALINE PHOSPHATASE 94 U/L (40-136); BILIRUBIN,TOTAL 0.6 MG/DL (0.1-1.0); BUN/CREATININE RATIO 17; CALCIUM 9.1 MG/DL (8.5-10.1); CARBON DIOXIDE 19 MMOL/L (21-32); CHLORIDE 100 MMOL/L (98-107); CREATININE SERUM 1.07 MG/DL (0.60-1.30); GFR ESTIMATED > 60; GLUCOSE 191 MG/DL (70-105); POTASSIUM 4.1 MMOL/L (3.6-5.0); SODIUM 134 MMOL/L (135-145); TOTAL PROTEIN 6.7 GM/DL (6.4-8.2)
--- OUTSIDE RECORDS SUMMARY | 2019-02-27 22:07 | XMS REPORT | Continuity of Care Document ---
Author Organization Unknown Address Unknown Allergies Active Description Code Type Severity Reaction Onset Reported/Identified Relationship to Patient Clinical Status Yes NO KNOWN DRUG ALLERGIES UNKNOWN NO KNOWN DRUG ALLERG Yes NO KNOWN DRUG ALLERGIES UNKNOWN UNKNOWN Yes morphine [id number] Drug Allergy Moderate PSYCH ISSUES 01/21/2017 Medications [...] NOS 12/06/2011 Ot 414.01 CORONARY ATHEROSCLEROSIS OF FALSE PASS CORON 12/06/2011 Ot 433.10 CAROTID ARTERY OCCLUSION [...] DISEASE OF NASAL CAVITY AND SINUSE 03/11/2013 TOAN TRINIDAD, CJ Pritchard Ot 724.5 BACKACHE NOS 03/11/2013 CJ JOYA MD Ot V57.1 PHYSICAL THERAPY NEC 09/23/2014 Ot 250.00 09/23/2014 Ot 272.4 09/23/2014 Ot 401.9 09/23/2014 Ot 413.9 09/23/2014 Ot 729.5 09/23/2014 Ot V58.63 09/23/2014 Ot V58.69 09/23/2014 Ot V72.63 09/23/2014 Ot V72.81 09/23/2014 CJ JOYA MD Ot 368.9 09/23/2014 FRANCISCO JAVIER TRINIDAD FACC, ALI FACP CCDS Ot 250.00 09/23/2014 FRANCISCO JAVIER TRINIDAD FACC, ALI FACP CCDS Ot 272.4 09/23/2014 FRANCISCO JAVIER VALENTINC, ALI FACP CCDS Ot 414.00 09/23/2014 FRANCISCO JAVIER VALENTINC, ALI FACP CCDS Ot 447.9 09/23/2014 FRANCISCO JAVIER VALENTINC, ALI FACP CCDS Ot 785.2 10/05/2014 Ot 250.00 10/05/2014 Ot 272.4 10/05/2014 Ot 401.9 10/05/2014 Ot 413.9 10/05/2014 Ot 729.5 10/05/2014 Ot V58.63 10/05/2014 Ot V58.69 10/05/2014 Ot V72.63 10/05/2014 Ot V72.81 10/05/2014 CJ JOYA MD Ot 368.9 10/05/2014 FRANCISCO JAVIER VALENTINC, ALI FACP CCDS Ot 250.00 10/05/2014 FRANCISCO JAVIER TRINIDAD FACC, ALI FACP CCDS Ot 272.4 10/05/2014 FRANCISCO JAVIER VALENTINC, ALI FACP CCDS Ot 414.00 10/05/2014 FRANCISCO JAVIER TRINIDAD FACC, ALI FACP CCDS Ot 447.9 10/05/2014 FRANCISCO JAVIER TRINIDAD FACC, ALI FACP CCDS Ot 785.2 10/05/2014 FRANCISCO JAVIER TRINIDAD FACC, ALI FACP CCDS Ot 250.00 DIAB WATSON WO COMPL, TYPE II OR UNSPEC TY 10/05/2014 FRANCISCO JAVIER TRINIDAD FACC, ALI FACP CCDS Ot 414.01 CORONARY ATHEROSCLEROSIS OF FALSE PASS CORON 10/05/2014 FRANCISCO JAVIER TRINIDAD FACC, ALI FACP CCDS Ot 414.4 CORONARY ATHEROSCLEROSIS DUE TO CALCIFIE 10/05/2014 FRANCISCO JAVIER VALENTINC, ALI FACP CCDS Ot 433.10 CAROTID ARTERY OCCLUSION W O CEREBRAL IN 10/05/2014 FRANCISCO JAVIER TRINIDAD FACDenise, ALI FACP CCDS Ot 786.59 CHEST PAIN NEC 10/05/2014 FRANCISCO JAVIER TRINIDAD FACC, ALI FACP CCDS Ot V58.69 OT MED,LT,CURRENT USE 10/18/2014 KILEY WEST MD Ot 250.00 DIAB WATSON WO COMPL, TYPE II OR UNSPEC TY 10/18/2014 KILEY WEST MD Ot 530.3 ESOPHAGEAL STRICTURE 11/03/2014 FRANCISCO JAVIER TRINIDAD FACC, ALI FACP CCDS Ot 250.00 11/03/2014 FRANCISCO JAVIER TRINIDAD FACC, ALI FACP CCDS Ot 272.4 11/03/2014 FRANCISCO JAVIER TRINIDAD FACC, ALI FACP CCDS Ot 278.00 11/03/2014 FRANCISCO JAVIER TRINIDAD FACC, ALI FACP CCDS Ot 414.00 11/03/2014 FRANCISCO JAVIER VALENTINC, ALI FACP CCDS Ot 447.9 11/03/2014 FRANCISCO [...] V72.63 PRE-PROCEDURAL LABORATORY EXAMINATION 07/16/2016 Ot V72.81 [id number] CARDIOVASCULAR 07/16/2016 TOAN TRINIDAD, CJ Pritchard Ot 368.9 VISUAL DISTURBANCE NOS 07/16/2016 FRANCISCO JAVIER VALENTINC, ALI FACP [...] II OR UNSPEC TY 07/16/2016 FRANCISCO JAVIER TRINIDAD FACC, ALI FACP CCDS Ot 272.4 HYPERLIPIDEMIA NEC/NOS 07/16/2016 FRANCISCO JAVIER TRINIDAD FACC, ALI FACP CCDS Ot 278.00 OBESITY, NOS 07/16/2016 FRANCISCO JAVIER TRINIDAD FACC, ALI [...] V72.84 EXAM PRE-OPERATIVE NOS 07/17/2016 DREW LAGUNAS 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 Ot M79.632 PAIN IN LEFT FOREARM 08/07/2016 DREW LAGUNAS 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 Ot M79.632 PAIN IN LEFT FOREARM 08/08/2016 BEBODREW 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 Ot M79.632 PAIN IN LEFT FOREARM 12/14/2016 CJ JOYA MD Ot R19.00 INTRA-ABD AND PELVIC SWELLING, MASS AND 01/10/2017 KILEY WEST MD Ot Z01.818 ENCOUNTER FOR OTHER PREPROCEDURAL EXAMIN 01/10/2017 KILEY WSET MD Ot Z12.11 ENCOUNTER FOR SCREENING FOR MALIGNANT NE 01/15/2017 CJ JOYA MD Ot R19.00 INTRA-ABD AND PELVIC SWELLING, MASS AND 01/21/2017 KILEY WEST MD Ot E11.9 TYPE 2 DIABETES MELLITUS WITHOUT COMPLIC 01/21/2017 KILEY WEST MD Ot E78.5 HYPERLIPIDEMIA, UNSPECIFIED 01/21/2017 KILEY WEST MD Ot I10 ESSENTIAL (PRIMARY) HYPERTENSION 01/21/2017 KILEY WEST MD Ot 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 01/21/2017 KILEY WEST MD Ot K21.9 [...] MD Ot 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 01/22/2017 KILEY WEST MD Ot K21.9 GASTRO-ESOPHAGEAL REFLUX DISEASE WITHOUT 01/22/2017 KILEY WEST MD Ot K57.30 DVRTCLOS OF LG INT W/O PERFORATION OR AB 01/22/2017 KILEY WEST MD Ot M19.90 UNSPECIFIED OSTEOARTHRITIS, UNSPECIFIED 01/22/2017 KILEY WEST MD Ot Z12.11 ENCOUNTER FOR SCREENING FOR MALIGNANT NE 01/24/2017 TOAN TRINIDAD, CJ Pritchard Ot R19.00 INTRA-ABD AND PELVIC SWELLING, MASS AND 01/27/2017 KILEY WEST MD Ot E11.9 TYPE 2 DIABETES MELLITUS WITHOUT COMPLIC 01/27/2017 KILEY WEST MD Ot E78.5 HYPERLIPIDEMIA, UNSPECIFIED 01/27/2017 KILEY WEST MD Ot I10 ESSENTIAL (PRIMARY) HYPERTENSION 01/27/2017 KILEY WEST MD Ot 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 01/27/2017 KILEY WEST MD Ot K21.9 GASTRO-ESOPHAGEAL REFLUX DISEASE WITHOUT 01/27/2017 KILEY WEST MD Ot K57.30 DVRTCLOS OF LG INT W/O PERFORATION OR AB 01/27/2017 KILEY WEST MD Ot M19.90 UNSPECIFIED OSTEOARTHRITIS, UNSPECIFIED 01/27/2017 KILEY WEST MD Ot Z12.11 ENCOUNTER FOR SCREENING FOR MALIGNANT NE 02/12/2017 DREW LAGUNASP Ot R19.05 PERIUMBILIC SWELLING, MASS OR LUMP 02/18/2017 DREW LAGUNASP Ot R19.05 PERIUMBILIC SWELLING, MASS OR LUMP 04/10/2017 TOAN TRINIDAD, CJ Pritchard Ot R00.2 PALPITATIONS 04/12/2017 CJ JOYA MD Ot I49.9 CARDIAC ARRHYTHMIA, UNSPECIFIED 05/06/2017 CJ JOYA MD Ot I49.9 CARDIAC ARRHYTHMIA, UNSPECIFIED 06/26/2017 ASIF DOMINGUEZ Ot E78.4 OTHER HYPERLIPIDEMIA 06/26/2017 ASIF DOMINGUEZP Ot 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 06/26/2017 ASIF DOMINGUEZP Ot I65.23 OCCLUSION AND STENOSIS OF BILATERAL HERNANDEZ 06/26/2017 ASIF DOMINGUEZ Ot R06.09 OTHER FORMS OF DYSPNEA 07/04/2017 JOSH TRINIDAD, ISI Lagos Ot I51.7 CARDIOMEGALY 07/04/2017 JOSH TRINIDAD, ISI Lagos Ot R05 COUGH 07/10/2017 JOSH TRINIDAD, ISI P Ot I51.7 CARDIOMEGALY 07/10/2017 JOSH TRINIDAD, ISI P Ot R05 COUGH 07/17/2017 BAIMA, ASIF L 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 Ot E78.4 OTHER HYPERLIPIDEMIA 07/17/2017 BAIMA, ASIF L 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 Ot 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 07/17/2017 BAIMA, ASIF L 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 Ot I65.23 OCCLUSION AND STENOSIS OF BILATERAL HERNANDEZ 07/17/2017 BAIMA, ASIF L 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 Ot R06.09 OTHER FORMS OF DYSPNEA 07/31/2017 BAIMA, ASIF L 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 Ot E78.4 OTHER HYPERLIPIDEMIA 07/31/2017 BAIMA, ASIF L 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 Ot 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 07/31/2017 BAIMA, ASIF L 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 Ot I65.23 OCCLUSION AND STENOSIS OF BILATERAL HERNANDEZ 07/31/2017 BAIMA, ASIF L 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 Ot R06.09 OTHER FORMS OF DYSPNEA 08/05/2017 BAIMA, ASIF L 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 Ot E78.4 OTHER HYPERLIPIDEMIA 08/05/2017 BAIMA, ASIF L 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 Ot 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 08/05/2017 BAIMA, ASIF L 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 Ot I65.23 OCCLUSION AND STENOSIS OF BILATERAL HERNANDEZ 08/05/2017 BAIMA, ASIF L 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 Ot R06.09 OTHER FORMS OF DYSPNEA 08/08/2017 BAIMA, ASIF L 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 Ot E78.4 OTHER HYPERLIPIDEMIA 08/08/2017 BAIMA, ASIF L 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 Ot 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 08/08/2017 BAIMA, ASIF L 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 Ot I65.23 OCCLUSION AND STENOSIS OF BILATERAL HERNANDEZ 08/08/2017 BAIMA, ASIF L 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 Ot R06.09 OTHER FORMS OF DYSPNEA 12/11/2018 FRANCISCO JAVIER TRINIDAD FACC, ALI FACP CCDS Ot 250.00 DIAB WATSON WO COMPL, TYPE II OR UNSPEC TY 12/11/2018 FRANCISCO JAVIER TRINIDAD FACC, ALI FACP CCDS Ot 272.4 HYPERLIPIDEMIA NEC/NOS 12/11/2018 FRANCISCO JAVIER TRINIDAD FACC, ALI FACP CCDS Ot 414.00 CORON ATHEROSCLER NOS TYPE VESSEL, NATIV 12/11/2018 FRANCISCO JAVIER TRINIDAD FACC, ALI FACP CCDS Ot 447.9 ARTERIAL DISEASE NOS 12/11/2018 FRANCISCO JAVIER TRINIDAD FACC, ALI FACP CCDS Ot 785.2 CARDIAC MURMURS NEC 12/11/2018 FRANCISCO JAVIER TRINIDAD FACC, ALI FACP CCDS Ot 250.00 DIAB WATSON WO COMPL, TYPE II OR UNSPEC TY 12/11/2018 FRANCISCO JAVIER TRINIDAD [facility], ALI FACP CCDS Ot 272.4 HYPERLIPIDEMIA NEC/NOS 12/11/2018 FRANCISCO JAVIER TRINIDAD [facility], ALI FACP CCDS Ot 278.00 OBESITY, NOS 12/11/2018 FRANCISCO JAVIER TRINIDAD [facility], ALI FACP CCDS Ot 414.00 CORON ATHEROSCLER NOS TYPE VESSEL, NATIV 12/11/2018 FRANCISCO JAVIER TRINIDAD [facility], ALI FACP CCDS Ot 447.9 ARTERIAL DISEASE NOS 12/11/2018 FRANCISCO JAVIER TRINIDAD [facility], ALI FACP CCDS Ot 715.90 OSTEOARTHROS NOS-UNSPEC 12/11/2018 FRANCISCO JAVIER TRINIDAD [facility], ALI FACP CCDS Ot 780.57 UNSPECIFIED SLEEP APNEA 12/11/2018 FRANCISCO JAVIER TRINIDAD [facility], ALI FACP CCDS Ot 786.59 CHEST PAIN NEC 12/11/2018 JENNA TRINIDAD, KILEY Hernandez Ot V72.84 EXAM PRE-OPERATIVE NOS 12/11/2018 DREW LAGUNAS 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 Ot M79.632 PAIN IN LEFT FOREARM 12/11/2018 CJ JOYA MD Ot R19.00 INTRA-ABD AND PELVIC SWELLING, MASS AND 12/11/2018 DREW LAGUNAS Ot R19.05 PERIUMBILIC SWELLING, MASS OR LUMP 12/11/2018 CJ JOYA MD Ot I49.9 CARDIAC ARRHYTHMIA, UNSPECIFIED 12/11/2018 JOSH TRINIDAD, ISI Lagos Ot I51.7 CARDIOMEGALY 12/11/2018 JOSH TRINIDAD, ISI Lagos Ot R05 COUGH 12/11/2018 ASIF DOMINGUEZ 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 Ot E78.4 OTHER HYPERLIPIDEMIA 12/11/2018 ASIF DOMINGUEZ 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 Ot 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 12/11/2018 ASIF DOMINGUEZ 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 Ot I65.23 OCCLUSION AND STENOSIS OF BILATERAL HERNANDEZ 12/11/2018 ASIF DOMINGUEZ 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 Ot R06.09 OTHER FORMS OF DYSPNEA 12/11/2018 ASIF DOMINGUEZ 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 Ot E78.4 OTHER HYPERLIPIDEMIA 12/11/2018 ASIF DOMINGUEZ 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 Ot 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 12/11/2018 BAIMA, ASIF L 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 Ot I65.23 OCCLUSION AND STENOSIS OF BILATERAL HERNANDEZ 12/11/2018 ASIF DOMINGUEZ 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 Ot R06.09 OTHER FORMS OF DYSPNEA 12/12/2018 WYNN DORHODA D Ot K43.9 VENTRAL HERNIA WITHOUT OBSTRUCTION OR GA 12/12/2018 WYNN DO, RHODA D Ot R22.2 LOCALIZED SWELLING, MASS AND LUMP, TRUNK 01/05/2019 WYNN DO, RHODA D Ot K43.9 VENTRAL HERNIA WITHOUT OBSTRUCTION OR GA 01/05/2019 WYNN DO, RHODA D Ot R22.2 LOCALIZED SWELLING, MASS AND LUMP, TRUNK 01/08/2019 FRANCISCO JAVIER VALENTINC, ALI FACP CCDS Ot 250.00 DIAB WATSON WO COMPL, TYPE II OR UNSPEC TY 01/08/2019 FRANCISCO JAVIER TRINIDAD FACC, ALI FACP CCDS Ot 272.4 HYPERLIPIDEMIA NEC/NOS 01/08/2019 FRANCISCO JAVIER TRINIDAD FACC, ALI FACP [...] II OR UNSPEC TY 01/08/2019 FRANCISCO JAVIER TRINIDAD FACC, ALI FACP CCDS Ot 272.4 HYPERLIPIDEMIA NEC/NOS 01/08/2019 FRANCISCO JAVIER TRINIDAD FACC, ALI FACP CCDS Ot 278.00 OBESITY, NOS 01/08/2019 FRANCISCO JAVIER TRINIDAD FACC, ALI [...] V72.84 EXAM PRE-OPERATIVE NOS 01/08/2019 DREW LAGUNAS 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 Ot M79.632 PAIN IN LEFT FOREARM 01/08/2019 TOAN TRINIDAD, CJ Pritchard Ot R19.00 INTRA-ABD AND PELVIC SWELLING, MASS AND 01/08/2019 BEBO DREW Mary 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 Ot R19.05 PERIUMBILIC SWELLING, MASS OR LUMP 01/08/2019 TOAN TRINIDAD, CJ Pritchard Ot I49.9 CARDIAC ARRHYTHMIA, UNSPECIFIED 01/08/2019 JOSH TRINIDAD, ISI Lagos Ot I51.7 CARDIOMEGALY 01/08/2019 JOSH TRINIDAD, ISI Lagos Ot R05 COUGH 01/08/2019 BAICAREN ASIF L 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 Ot E78.4 OTHER HYPERLIPIDEMIA 01/08/2019 BAIMA, ASIF L 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 Ot 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 01/08/2019 BAIMA ASIF L 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 Ot I65.23 OCCLUSION AND STENOSIS OF BILATERAL HERNANDEZ 01/08/2019 BAIMA ASIF L 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 Ot R06.09 OTHER FORMS OF DYSPNEA 01/08/2019 BAICAREN ASIF L 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 Ot E78.4 OTHER HYPERLIPIDEMIA 01/08/2019 BAIMA ASIF L 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 Ot 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 01/08/2019 BAIMAASIF L 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 Ot I65.23 OCCLUSION AND STENOSIS OF BILATERAL HERNANDEZ 01/08/2019 BAIMA ASIF L 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 Ot R06.09 OTHER FORMS OF DYSPNEA 01/08/2019 RHODA WYNN DO Ot K43.9 VENTRAL HERNIA WITHOUT OBSTRUCTION OR GA 01/08/2019 RHODA WYNN DO Ot R22.2 LOCALIZED SWELLING, MASS AND LUMP, TRUNK 01/08/2019 RHODA WYNN DO Ot R19.09 OTHER INTRA-ABDOMINAL AND PELVIC SWELLIN 01/08/2019 RHODA WYNN DO Ot Z01.810 ENCOUNTER FOR PREPROCEDURAL CARDIOVASCUL 01/08/2019 RHODA WYNN DO Ot Z11.2 ENCOUNTER FOR SCREENING FOR OTHER BACTER 01/08/2019 RHODA WYNN DO Ot K43.9 VENTRAL HERNIA WITHOUT OBSTRUCTION OR GA 01/08/2019 RHODA WYNN DO Ot R22.2 LOCALIZED SWELLING, MASS AND LUMP, TRUNK 01/12/2019 RHODA WYNN DO Ot R19.09 OTHER INTRA-ABDOMINAL AND PELVIC SWELLIN 01/12/2019 RHODA WYNN DO Ot Z01.810 ENCOUNTER FOR PREPROCEDURAL CARDIOVASCUL 01/12/2019 RHODA WYNN DO Ot Z11.2 ENCOUNTER FOR SCREENING FOR OTHER BACTER 01/16/2019 RHODA WYNN DO Ot E11.9 TYPE 2 DIABETES MELLITUS WITHOUT COMPLIC 01/16/2019 RHODA WYNN DO Ot E66.9 OBESITY, UNSPECIFIED 01/16/2019 RHODA WYNN DO Ot E78.5 HYPERLIPIDEMIA, UNSPECIFIED 01/16/2019 RHODA WYNN DO Ot G20 PARKINSON'S DISEASE 01/16/2019 RHODA WYNN DO Ot G47.30 SLEEP APNEA, UNSPECIFIED 01/16/2019 RHODA WYNN DO Ot H91.90 UNSPECIFIED HEARING LOSS, UNSPECIFIED EA 01/16/2019 RHODA WYNN DO Ot I10 ESSENTIAL (PRIMARY) HYPERTENSION 01/16/2019 RHODA WYNN DO Ot 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 01/16/2019 RHODA WYNN DO Ot I77.9 DISORDER OF ARTERIES AND ARTERIOLES, UNS 01/16/2019 RHODA WYNN DO Ot K21.9 GASTRO-ESOPHAGEAL REFLUX DISEASE WITHOUT 01/16/2019 RHODA WYNN DO Ot M19.91 PRIMARY OSTEOARTHRITIS, UNSPECIFIED SITE 01/16/2019 RHODA WYNN DO Ot M48.02 SPINAL STENOSIS, CERVICAL REGION 01/16/2019 RHODA WYNN DO Ot R01.1 CARDIAC MURMUR, UNSPECIFIED 01/16/2019 RHODA WYNN DO Ot R19.04 LEFT LOWER QUADRANT ABDOMINAL SWELLING, 01/16/2019 RHODA WYNN DO Ot Z68.36 BODY MASS INDEX (BMI) 36.0-36.9, ADULT 01/16/2019 RHODA WYNN DO Ot Z79.01 [facility] (CURRENT) USE OF ANTICOAGULANT 01/16/2019 RHODA WYNN DO Ot Z79.02 [facility] (CURRENT) USE OF ANTITHROMBOTI 01/16/2019 RHODA WYNN DO Ot Z79.82 [facility] (CURRENT) USE OF ASPIRIN 01/16/2019 RHODA WYNN DO Ot Z79.899 OTHER [facility] (CURRENT) DRUG THERAPY 01/16/2019 RHODA WYNN DO Ot Z80.8 FAMILY HISTORY OF MALIGNANT NEOPLASM OF 01/16/2019 TIANNA CLARKE RHODA Lee Ot Z88.5 ALLERGY STATUS TO NARCOTIC AGENT STATUS 01/19/2019 Rhoda Wynntu Murillo V58.31 ENCOUNTER FOR CHANGE OR REMOVAL OF SURGICAL WOUND DRESSING 01/19/2019 Rhoda Wynn W Z48.01 ENCOUNTER FOR CHANGE OR REMOVAL OF SURGICAL WOUND DRESSING 01/24/2019 ADILENE CLARKE TRINH Ot E11.9 TYPE 2 DIABETES MELLITUS WITHOUT COMPLIC 01/24/2019 ADILENE CLARKE TRINH Ot E78.00 PURE HYPERCHOLESTEROLEMIA, UNSPECIFIED 01/24/2019 ADILENE CLARKE TRINH Ot E86.0 DEHYDRATION 01/24/2019 ADILENE CLARKE TRINH Ot G47.33 OBSTRUCTIVE SLEEP APNEA (ADULT) (PEDIATR 01/24/2019 ADILENE CLARKE TRINH Ot G89.18 OTHER ACUTE POSTPROCEDURAL PAIN 01/24/2019 ADILENE CLARKE TRINH Ot H91.90 UNSPECIFIED HEARING LOSS, UNSPECIFIED EA 01/24/2019 ADILENE CLARKE TRINH Ot I10 ESSENTIAL (PRIMARY) HYPERTENSION 01/24/2019 ADILENE CLARKE TRINH Ot 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 01/24/2019 ADILENE CLARKE TRINH Ot I77.819 AORTIC ECTASIA, UNSPECIFIED SITE 01/24/2019 ADILENE CLARKE TRINH Ot K21.9 GASTRO-ESOPHAGEAL REFLUX DISEASE WITHOUT 01/24/2019 ADILENE CLARKE TRINH Ot M19.91 PRIMARY OSTEOARTHRITIS, UNSPECIFIED SITE 01/24/2019 ADILENE CLARKE TRINH Ot N28.9 DISORDER OF KIDNEY AND URETER, UNSPECIFI 01/24/2019 ADILENE CLARKE TRINH Ot N30.00 ACUTE CYSTITIS WITHOUT HEMATURIA 01/24/2019 ADILENE CLARKE TRINH Ot N40.0 BENIGN PROSTATIC HYPERPLASIA WITHOUT LOW 01/24/2019 ADILENE CLARKE TIRNH Ot R05 COUGH 01/24/2019 ADILENE CLAKRE TRINH Ot R06.02 SHORTNESS OF BREATH 01/24/2019 ADILENE CLARKE TRINH Ot R10.13 EPIGASTRIC PAIN 01/24/2019 ADILENE CLARKE TRINH Ot R13.10 DYSPHAGIA, UNSPECIFIED 01/24/2019 ADILENE CLARKE TRINH Ot R55 SYNCOPE AND COLLAPSE 01/24/2019 TRINH HEAD DO Ot 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 01/24/2019 TRINH HEAD DO Ot Z79.82 TAXATION AGENT (CURRENT) USE OF ASPIRIN 01/24/2019 JALIL HEAD DOI Ot Z79.899 OTHER [facility] (CURRENT) DRUG THERAPY 01/24/2019 TRINH HEAD DO Ot Z88.5 ALLERGY STATUS TO NARCOTIC AGENT STATUS 01/24/2019 TRINH HEAD DO Ot Z98.890 OTHER SPECIFIED POSTPROCEDURAL STATES 01/24/2019 TRINH HEAD DO Ot E11.9 TYPE 2 DIABETES MELLITUS WITHOUT COMPLIC 01/24/2019 JALIL HEAD DOI Ot E78.00 PURE HYPERCHOLESTEROLEMIA, UNSPECIFIED 01/24/2019 JALIL HEAD DOI Ot E86.0 DEHYDRATION 01/24/2019 JALIL HEAD DOI Ot G47.33 OBSTRUCTIVE SLEEP APNEA (ADULT) (PEDIATR 01/24/2019 JALIL HEAD DOI Ot G89.18 OTHER ACUTE POSTPROCEDURAL PAIN 01/24/2019 JALIL HEAD DOI Ot H91.90 UNSPECIFIED HEARING LOSS, UNSPECIFIED EA 01/24/2019 ADILENE CLARKE TRINH Ot I10 ESSENTIAL (PRIMARY) HYPERTENSION 01/24/2019 JALIL HEAD DOI Ot 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 01/24/2019 ADILENE CLARKE TRINH Ot I77.819 AORTIC ECTASIA, UNSPECIFIED SITE 01/24/2019 ADILENE CLARKE RTINH Ot K21.9 GASTRO-ESOPHAGEAL REFLUX DISEASE WITHOUT 01/24/2019 JALIL HEAD DOI Ot M19.91 PRIMARY OSTEOARTHRITIS, UNSPECIFIED SITE 01/24/2019 ADILENE CLARKE TRINH Ot N28.9 DISORDER OF KIDNEY AND URETER, UNSPECIFI 01/24/2019 ADILENE CLARKE TRINH Ot N30.00 ACUTE CYSTITIS WITHOUT HEMATURIA 01/24/2019 JALIL HEAD DOI Ot N40.0 BENIGN PROSTATIC HYPERPLASIA WITHOUT LOW 01/24/2019 JALIL HEAD DOI Ot R05 COUGH 01/24/2019 JALIL HEAD DOI Ot R06.02 SHORTNESS OF BREATH 01/24/2019 JALIL HEAD DOI Ot R10.13 EPIGASTRIC PAIN 01/24/2019 TRINH HEAD DO Ot R13.10 DYSPHAGIA, UNSPECIFIED 01/24/2019 TRINH HEAD DO Ot R55 SYNCOPE AND COLLAPSE 01/24/2019 TRINH HEAD DO Ot 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 01/24/2019 TRINH HEAD DO Ot Z79.82 [facility] (CURRENT) USE OF ASPIRIN 01/24/2019 TRINH HEAD DO Ot Z79.899 OTHER TAXATION AGENT (CURRENT) DRUG THERAPY 01/24/2019 TRINH HEAD DO Ot Z88.5 ALLERGY STATUS TO NARCOTIC AGENT STATUS 01/24/2019 TRINH HEAD DO Ot Z98.890 OTHER SPECIFIED POSTPROCEDURAL STATES 01/26/2019 RHODA WYNN DO Ot E11.9 TYPE 2 DIABETES MELLITUS WITHOUT COMPLIC 01/26/2019 RHODA WYNN DO Ot E66.9 OBESITY, UNSPECIFIED 01/26/2019 RHODA WYNN DO Ot E78.5 HYPERLIPIDEMIA, UNSPECIFIED 01/26/2019 RHODA WYNN DO Ot G20 PARKINSON'S DISEASE 01/26/2019 RHODA WYNN DO Ot G47.30 SLEEP APNEA, UNSPECIFIED 01/26/2019 RHODA WYNN DO Ot H91.90 UNSPECIFIED HEARING LOSS, UNSPECIFIED EA 01/26/2019 RHODA WYNN DO Ot I10 ESSENTIAL (PRIMARY) HYPERTENSION 01/26/2019 RHODA WYNN DO Ot 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 01/26/2019 RHODA WYNN DO Ot I77.9 DISORDER OF ARTERIES AND ARTERIOLES, UNS 01/26/2019 RHODA WYNN DO Ot K21.9 GASTRO-ESOPHAGEAL REFLUX DISEASE WITHOUT 01/26/2019 RHODA WYNN DO Ot M19.91 PRIMARY OSTEOARTHRITIS, UNSPECIFIED SITE 01/26/2019 RHODA WYNN DO Ot M48.02 SPINAL STENOSIS, CERVICAL REGION 01/26/2019 RHODA WYNN DO Ot R01.1 CARDIAC MURMUR, UNSPECIFIED 01/26/2019 RHODA WYNN DO Ot R19.04 LEFT LOWER QUADRANT ABDOMINAL SWELLING, 01/26/2019 RHODA WYNN DO Ot Z68.36 BODY MASS INDEX (BMI) 36.0-36.9, ADULT 01/26/2019 RHODA WYNN DO, Ot Z79.01 TAXATION AGENT (CURRENT) USE OF ANTICOAGULANT 01/26/2019 RHODA WYNN DO Ot Z79.02 [facility] (CURRENT) USE OF ANTITHROMBOTI 01/26/2019 RHODA WYNN DO Ot Z79.82 TAXATION AGENT (CURRENT) USE OF ASPIRIN 01/26/2019 RHODA WYNN DO, Ot Z79.899 OTHER TAXATION AGENT (CURRENT) DRUG THERAPY 01/26/2019 RHODA WYNN DO Ot Z80.8 FAMILY HISTORY OF MALIGNANT NEOPLASM OF 01/26/2019 RHODA WYNN DO Ot Z88.5 ALLERGY STATUS TO NARCOTIC AGENT STATUS 01/26/2019 Rhoda Wynn V58.31 ENCOUNTER FOR CHANGE OR REMOVAL OF SURGICAL WOUND DRESSING 01/26/2019 Rhoda Wynn Z48.01 ENCOUNTER FOR CHANGE OR REMOVAL OF SURGICAL WOUND DRESSING 01/28/2019 Rhoda Wynn V58.31 ENCOUNTER FOR CHANGE OR REMOVAL OF SURGICAL WOUND DRESSING 01/28/2019 Rhoda Wynn Z48.01 ENCOUNTER FOR CHANGE OR REMOVAL OF SURGICAL WOUND DRESSING 01/28/2019 TRINH HEAD DO Ot E11.9 TYPE 2 DIABETES MELLITUS WITHOUT COMPLIC 01/28/2019 TRINH HEAD DO Ot E78.00 PURE HYPERCHOLESTEROLEMIA, UNSPECIFIED 01/28/2019 TRINH HEAD DO Ot E86.0 DEHYDRATION 01/28/2019 TRINH HEAD DO Ot G47.33 OBSTRUCTIVE SLEEP APNEA (ADULT) (PEDIATR 01/28/2019 TRINH HEAD DO Ot G89.18 OTHER ACUTE POSTPROCEDURAL PAIN 01/28/2019 TRINH HEAD DO Ot H91.90 UNSPECIFIED HEARING LOSS, UNSPECIFIED EA 01/28/2019 TRINH HEAD DO Ot I10 ESSENTIAL (PRIMARY) HYPERTENSION 01/28/2019 TRINH HEAD DO Ot 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 01/28/2019 TRINH HEAD DO Ot I77.819 AORTIC ECTASIA, UNSPECIFIED SITE 01/28/2019 TRINH HEAD DO Ot K21.9 GASTRO-ESOPHAGEAL REFLUX DISEASE WITHOUT 01/28/2019 TRINH HEAD DO Ot M19.91 PRIMARY OSTEOARTHRITIS, UNSPECIFIED SITE 01/28/2019 TRINH HEAD DO Ot N28.9 DISORDER OF KIDNEY AND URETER, UNSPECIFI 01/28/2019 TRINH HEAD DO Ot N30.00 ACUTE CYSTITIS WITHOUT HEMATURIA 01/28/2019 TRINH HEAD DO Ot N40.0 BENIGN PROSTATIC HYPERPLASIA WITHOUT LOW 01/28/2019 TRINH HEAD DO Ot R05 COUGH 01/28/2019 TRINH HEAD DO Ot R06.02 SHORTNESS OF BREATH 01/28/2019 TRINH HEAD DO Ot R10.13 EPIGASTRIC PAIN 01/28/2019 TRINH HEAD DO Ot R13.10 DYSPHAGIA, UNSPECIFIED 01/28/2019 TRINH HEAD DO Ot R55 SYNCOPE AND COLLAPSE 01/28/2019 TRINH HEAD DO Ot V47.5XXA NUCLEAR [employer]ER INJURED IN CLSN WITH STATNRY 01/28/2019 TRINH HEAD DO Ot Z79.82 [facility] (CURRENT) USE OF ASPIRIN 01/28/2019 TRINH HEAD DO Ot Z79.899 OTHER [facility] (CURRENT) DRUG THERAPY 01/28/2019 TRINH HEAD DO Ot Z88.5 ALLERGY STATUS TO NARCOTIC AGENT STATUS 01/28/2019 TRINH HEAD DO Ot Z98.890 OTHER SPECIFIED POSTPROCEDURAL STATES 01/30/2019 Rhoda Wynn V58.31 ENCOUNTER FOR CHANGE OR REMOVAL OF SURGICAL WOUND DRESSING 01/30/2019 Rhoda Wynn Z48.01 ENCOUNTER FOR CHANGE OR REMOVAL OF SURGICAL WOUND DRESSING 02/01/2019 AUSTIN CORDOBA MD Ot E11.9 TYPE 2 DIABETES MELLITUS WITHOUT COMPLIC 02/01/2019 AUSTIN CORDOBA MD Ot E78.00 PURE HYPERCHOLESTEROLEMIA, UNSPECIFIED 02/01/2019 AUSTIN CORDOBA MD Ot G47.30 SLEEP APNEA, UNSPECIFIED 02/01/2019 AUSTIN CORDOBA MD Ot I10 ESSENTIAL (PRIMARY) HYPERTENSION 02/01/2019 AUSTIN CORDOBA MD Ot K21.9 GASTRO-ESOPHAGEAL REFLUX DISEASE WITHOUT 02/01/2019 AUSTIN CORDOBA MD Ot T81.89XA OTH COMPLICATIONS OF PROCEDURES, NEC, IN 02/01/2019 AUSTIN CORDOBA MD Ot Z79.02 [facility] (CURRENT) USE OF ANTITHROMBOTI 02/01/2019 AUSTIN CORDOBA MD, Ot Z79.82 [facility] (CURRENT) USE OF ASPIRIN 02/01/2019 AUSTIN CORDOBA MD Ot Z79.84 [facility] (CURRENT) USE OF ORAL HYPOGLYC 02/01/2019 AUSTIN CORDOBA MD Ot Z80.0 FAMILY HISTORY OF MALIGNANT NEOPLASM OF 02/01/2019 AUSTIN CORDOBA MD Ot Z82.49 FAMILY HX OF ISCHEM HEART DIS AND OTH DI 02/01/2019 AUSTIN CORDOBA MD Ot Z87.448 PERSONAL HISTORY OF OTHER DISEASES OF UR 02/01/2019 AUSTIN CORDOBA MD, Ot Z88.5 ALLERGY STATUS TO NARCOTIC AGENT STATUS 02/01/2019 AUSTIN CORDOBA MD, Ot Z98.890 OTHER SPECIFIED POSTPROCEDURAL STATES 02/02/2019 AUSTIN CORDOBA MD Ot E11.9 TYPE 2 DIABETES MELLITUS WITHOUT COMPLIC 02/02/2019 AUSTIN CORDOBA MD Ot E78.00 PURE HYPERCHOLESTEROLEMIA, UNSPECIFIED 02/02/2019 AUSTIN CORDOBA MD Ot G47.30 SLEEP APNEA, UNSPECIFIED 02/02/2019 AUSTIN CORDOBA MD Ot I10 ESSENTIAL (PRIMARY) HYPERTENSION 02/02/2019 AUSTIN CORDOBA MD Ot K21.9 GASTRO-ESOPHAGEAL REFLUX DISEASE WITHOUT 02/02/2019 AUSTIN CORDOBA MD Ot T81.89XA OTH COMPLICATIONS OF PROCEDURES, NEC, IN 02/02/2019 AUSTIN CORDOBA MD Ot Z79.02 [facility] (CURRENT) USE OF ANTITHROMBOTI 02/02/2019 AUSTIN CORDOBA MD, Ot Z79.82 TAXATION AGENT (CURRENT) USE OF ASPIRIN 02/02/2019 AUSTIN CORDOBA MD, Ot Z79.84 TAXATION AGENT (CURRENT) USE OF ORAL HYPOGLYC 02/02/2019 AUSTIN CORDOBA MD, Ot Z80.0 FAMILY HISTORY OF MALIGNANT NEOPLASM OF 02/02/2019 AUSTIN CORDOBA MD, Ot Z82.49 FAMILY HX OF ISCHEM HEART DIS AND OTH DI 02/02/2019 AUSTIN CORDOBA MD Ot Z87.19 PERSONAL HISTORY OF OTHER DISEASES OF TH 02/02/2019 AUSTIN CORDOBA MD, Ot Z87.448 PERSONAL HISTORY OF OTHER DISEASES OF UR 02/02/2019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
[2019-02-27] MEDS ORDERED: cefTRIAXone FOR IV USE 1,000 MG in WATER (STERILE) FOR INJECTION 10 ML IV ONE (22:45)
[2019-02-27] MEDS ORDERED: CEPH500T PO (22:51)
[2019-02-27 22:53] VITALS: BP 119/59
== END 2019-02-27 22:52 | disposition home or self-care (01) ==
LOC: EDUNIT# 20:21 → ER 20:22
DX: L03.311 Cellulitis of abdominal wall (principal); G47.30 Sleep apnea, unspecified; E78.00 Pure hypercholesterolemia, unspecified; I10 Essential (primary) hypertension; K21.9 Gastro-esophageal reflux disease without esophagitis; E11.9 Type 2 diabetes mellitus without complications; Z82.49 Family history of ischemic heart disease and other diseases of the circulatory system; Z80.0 Family history of malignant neoplasm of digestive organs; Z87.448 Personal history of other diseases of urinary system; Z88.5 Allergy status to narcotic agent; Z79.82 Long term (current) use of aspirin; Z79.02 Long term (current) use of antithrombotics/antiplatelets; Z79.84 Long term (current) use of oral hypoglycemic drugs
CPT/HCPCS: 36415; 80053; 85007; 85027; 86141

== ENCOUNTER 2019-03-04 11:00 | Outpatient (CLI) | payer MEDICARE ==
[~2019-03-04] VITALS: Ht 170.2 cm; Wt 97.5 kg
[~2019-03-04 11:00] MED LIST changes: +CEPH500T PO
== END 2019-03-04 11:58 ==
LOC: PREOP 11:00
PROVIDERS: ATTEND Surgery
DX: Z01.818 Encounter for other preprocedural examination (principal)

== ENCOUNTER 2019-03-05 10:47 | Day surgery (SDC) | payer MEDICARE ==
[2019-03-05] VITALS (11 sets, daily range): BP systolic 132–164; BP diastolic 69–94
[~2019-03-05] VITALS: Ht 170.2 cm; Wt 97.5 kg
[2019-03-05] MEDS ORDERED: LACTATED RINGERS 1,000 ML IV PRN (10:59)
[2019-03-05] MEDS ORDERED: ceFAZolin 2 GM/50 ML NS 50 ML IV ONE (11:00)
--- NOTE | 2019-03-05 13:43 | Progress Note-Pre Operative ---
Pre-Operative Progress Note H&P Reviewed The H&P was reviewed, patient examined and no changes noted. Date Seen by Provider: Mar 05, 2019 Time Seen by Provider: 13:42 Date H&P Reviewed: Mar 05, 2019 Time H&P Reviewed: 13:42 Pre-Operative Diagnosis: open abd wound RHODA WYNN DO Mar 05, 2019 13:43
[2019-03-05] MEDS ORDERED: proPOfol 200 MG/20 ML (DIPRIVAN) VIAL IV ONE (14:01)
[2019-03-05] MEDS ORDERED: MIDAZOLAM 2 MG/2 ML (VERSED) VIAL ONE (14:01)
[2019-03-05] MEDS ORDERED: ONDANSETRON 4 MG/2 ML (SDV) Z0FRAN ONE (14:01)
[2019-03-05] MEDS ORDERED: LIDOCAINE PF 2% 5 ML (XYLOCAINE) VIAL ONE (14:01)
[2019-03-05] MEDS ORDERED: fentaNYL INJECTION 100 MCG/2 ML AMP ONE ×2 (14:02→15:27)
[2019-03-05] MEDS ORDERED: SEVOFLURANE (ULTANE) 15 ML INHAL SOLN ONE ×2 (14:06)
[2019-03-05] MEDS ORDERED: BUP/EPI 0.5% 1:200,000 (SENSORCAINE) 30 ML VIAL ONE (14:08)
[2019-03-05] MEDS ORDERED: PHENYLEPHRINE 100 MCG/ML 10 ML (ANESTHESIA) SYR ONE (14:51)
[2019-03-05] MEDS ORDERED: fentaNYL INJECTION 100 MCG/2 ML AMP IVP ONE (15:15)
[2019-03-05] MEDS ORDERED: ONDANSETRON 4 MG/2 ML (SDV) Z0FRAN IVP PRN (15:15)
[2019-03-05] MEDS ORDERED: ACETAMINOPHEN 325 MG TABLET ONE (16:13)
[2019-03-05] MEDS ORDERED: ACETAMINOPHEN 325 MG TABLET PO ONE (16:15)
--- NOTE | 2019-03-05 16:22 | Discharge Inst-Simple/Standard ---
Discharge Inst-Standard Patient Instructions/Follow Up Plan of Care/Instructions/FU: Follow up tomorrow to have wound care performed. Rachel 1 week. Activity as Tolerated: Yes Discharge Diet: Regular Diet Other Inst to Patient Follow up Appt: Make appointment for 1 week. Instructions: No strenuous activity. May shower in 24 hours, no tub bath or soaking. Use incentive spirometer at home as directed. No Smoking Skin/Wound Care: Keep up with wound care. Symptoms to Report: Appetite Changes, Extremity Discoloration, Numbness/Tingling, Swelling Increased, Bleeding Excessive, Eyesight Changes, Pain Increased, Urine Color Change, Constipation(Persistent), Fever over 101 degree F, Pain/Pressure in hose[address], Urinating Difficulty, Cough Up/Vomit Blood, Heart Beat Irreg/Pounding, Pain/Pressure in jaw, Vaginal Bleeding Increase, Cramps in feet or legs, Lightheadedness, Pain/Pressure in shoulder, Diarrhea(Persistent), Memory Changes Suddenly, Questions/Concerns, Weight gain consecutive days, Dizziness/Fainting, Nausea/Vomiting, Shortness of Breath, Weight gain over 2 pounds If questions or concerns contact your physician Or seek help at emergency department. RHODA WYNN DO Mar 05, 2019 16:22
--- NOTE | 2019-03-05 21:34 | OPERATIVE REPORT ---
DATE OF SERVICE: 03/05/2019 PREOPERATIVE DIAGNOSIS: Abdominal wound. POSTOPERATIVE DIAGNOSIS: Abdominal wound. PROCEDURE PERFORMED: Excisional debridement with cautery 9 x 9 x 5 cm, removing skin and subcutaneous tissue. SURGEON: Rhoda Ramos DO. ANESTHESIA: General. ESTIMATED BLOOD LOSS: Minimal. COMPLICATIONS: None. 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 He had it surgically removed. He has continued to undergo wound care postoperatively to let this heal from the inside out. The patient developed tunneling and has been having some drainage from the medial aspect where the tunneling is present. The patient was discussed risks and benefits of above-mentioned procedure. He understands and wishes to proceed with procedure. Consent was signed and on the chart. DESCRIPTION OF PROCEDURE: The patient was taken to the operating suite, was prepped and draped in sterile fashion. Surgical pause was performed. The tunneling was explored with finger dissection and the skin and subcutaneous tissues were then divided using cautery. This was noted where the significant tunneling was present where the skin and subcutaneous tissue was then excised with overall dimensions being 9 x 9 x 5 cm removing the skin and subcutaneous tissue. the tunneling was then opened. The wound was then irrigated with copious amounts of irrigation and suction. The wound was then packed with Kerlix wet to dry. The abdomen was washed and dried and sterile bandage was applied. The patient tolerated procedure well without complications and taken to recovery room in stable condition. Job ID: [id number] DocumentID: [id number] Dictated Date: 03/05/2019 19:58:38 Oyster Preparer Date: 03/05/2019 21:33:20 Dictated By: RHODA RAMOS DO
== END 2019-03-05 16:59 | disposition home or self-care (01) ==
LOC: SDC 10:47
PROVIDERS: ATTEND Surgery
DX: T81.9XXA Unspecified complication of procedure, initial encounter (principal); I25.10 Atherosclerotic heart disease of native coronary artery without angina pectoris; E11.9 Type 2 diabetes mellitus without complications; E78.5 Hyperlipidemia, unspecified; I10 Essential (primary) hypertension; G47.33 Obstructive sleep apnea (adult) (pediatric); K21.9 Gastro-esophageal reflux disease without esophagitis; E66.9 Obesity, unspecified; Z68.33 Body mass index [BMI] 33.0-33.9, adult; Z79.02 Long term (current) use of antithrombotics/antiplatelets; Z79.82 Long term (current) use of aspirin; Z79.84 Long term (current) use of oral hypoglycemic drugs; Z79.899 Other long term (current) drug therapy
CPT/HCPCS: 82962; 87081

== ENCOUNTER → 2020-02-12 | Outpatient (CLI) | payer MEDICARE ==
[~2020-02-12] MED LIST changes: +BARIUM for suspension 96% w/w (Vanilla Silq Medium Density) PO ONE; +BARIUM for suspension 98% w/w (Vanilla Silq High Density) PO ONE; +HOLD METFORMIN - RECEIVED CONTRAST 20 ML VIAL IV SCH; +IOHEXOL 350 MG/ML 100 ML (OMNIPAQUE 350) VIAL IV ONE; +IRBE300T17 PO; -IRBE300T18 PO; -METO-387 PO; +MTP25TSR PO; +NS 100 ML (IVPB) BAG IV ONE
[2020-02-12 07:46] LABS: CREATININE SERUM 1.15 MG/DL (0.60-1.30)
--- NOTE | 2020-02-12 09:56 | Diagnostic Imaging Report ---
CLINICAL INDICATION: Patient feels like something is in left side of neck. Dysphagia. EXAM: Axial CT scan of the neck soft tissue performed with 75 mL of Omnipaque 350 IV contrast. Coronal and sagittal reformatted images were created. Auto Exposure Controls were utilized during the CT exam to meet ALARA standards for radiation dose reduction. COMPARISON: CT scan of the cervical spine without contrast dated 01/23/2019. FINDINGS: There is no neck soft tissue mass or radiodense foreign object seen. There is stable appearance to the nasopharynx, oropharynx, hypopharynx, and laryngeal soft tissue structures. Multiple tonsilloliths seen in the bilateral palatine region (right side more than the left) which is not significantly changed. The aerodigestive tract is patent. Visualized portions of the oral cavity, tongue, sublingual space, submandibular regions are unremarkable. There is no lymphadenopathy. The parotid glands are unremarkable. There are nodules within the thyroid lobes bilaterally seen with the largest in the left side measuring 10 mm. The thyroid gland was more obscured on the prior study. Visualized upper lung abdul are clear. There is dense atherosclerotic disease involving the bilateral carotid arteries. There is concern for severe stenosis involving the left ICA bulb. C4-C6 anterior cervical disc fusion hardware noted which is in place in interim. There is cervical spine degenerative disease. IMPRESSION: 1: There is no evidence of developing neck mass or radiodense foreign object. There is no lymphadenopathy. 2: The neck soft tissue structures have not significantly changed compared to prior study. There is multiple tonsillar seen involving the bilateral palatine regions. 3: There is C4-C6 anterior cervical disc fusion which is placed in interim. 4: Bilateral thyroid gland nodules. Thyroid ultrasound better evaluate. Dictated by: Dictated on workstation # [id number]
== END ==
LOC: RAD 07:14
PROVIDERS: ATTEND Otolaryngology Otolaryngology/Facial Plastic Surgery
DX: M43.22 Fusion of spine, cervical region (principal); E04.2 Nontoxic multinodular goiter; R13.10 Dysphagia, unspecified
CPT/HCPCS: 36415; 70491; 82565; 84520

== ENCOUNTER → 2020-05-05 | Outpatient (CLI) | payer MEDICARE ==
[~2020-05-05] MED LIST changes: +AMLO10TA7 PO; -BARIUM for suspension 96% w/w (Vanilla Silq Medium Density) PO ONE; -BARIUM for suspension 98% w/w (Vanilla Silq High Density) PO ONE; +CARB1TAB40 PO; +DRON400T2 PO; -HOLD METFORMIN - RECEIVED CONTRAST 20 ML VIAL IV SCH; -IOHEXOL 350 MG/ML 100 ML (OMNIPAQUE 350) VIAL IV ONE; -NS 100 ML (IVPB) BAG IV ONE; +OMEG-154 PO; +RIVA20TA PO
== END ==
LOC: CARD 10:30
PROVIDERS: ATTEND Nurse Practitioner Family
DX: I48.0 Paroxysmal atrial fibrillation (principal); I25.10 Atherosclerotic heart disease of native coronary artery without angina pectoris; I77.89 Other specified disorders of arteries and arterioles; E78.5 Hyperlipidemia, unspecified; G47.33 Obstructive sleep apnea (adult) (pediatric)
CPT/HCPCS: 93306

== ENCOUNTER 2020-05-19 06:53 | Day surgery (SDC) | payer MEDICARE ==
[2020-05-19] VITALS (12 sets, daily range): BP systolic 108–150; BP diastolic 64–93
[~2020-05-19] VITALS: Ht 170.2 cm; Wt 109.0 kg
[~2020-05-19 06:53] MED LIST changes: -AMLO10TA7 PO; -CARB1TAB40 PO; -DRON400T2 PO; +HURRICAINE EXT TUBE (BENZOCAINE) ONE; +NS IV 1000 ML 1,000 ML ONE; -OMEG-154 PO; -PANT40TA3 PO; +PANT40TA52 PO; -RIVA20TA PO
[2020-05-19] MEDS ORDERED: NS IV 1000 ML 1,000 ML IV SCH (07:15)
[2020-05-19] MEDS ORDERED: CARB1TAB40 PO (07:54)
[2020-05-19] MEDS ORDERED: OMEG-154 PO (07:57)
[2020-05-19] MEDS ORDERED: MAGN250T13 PO (07:57)
[2020-05-19] MEDS ORDERED: proPOfol 200 MG/20 ML (DIPRIVAN) VIAL IV ONE (08:08)
[2020-05-19] MEDS ORDERED: MIDAZOLAM 2 MG/2 ML (VERSED) VIAL ONE (08:08)
[2020-05-19] MEDS ORDERED: LIDOCAINE 2% VISCOUS 15 ML UDC ONE (08:13)
--- NOTE | 2020-05-19 09:06 | Anesthesia-General Post-Op ---
MAC Patient Condition Mental Status/LOC: Same as Preop Cardiovascular: Satisfactory Nausea/Vomiting: Absent Respiratory: Satisfactory Pain: Controlled Complications: Absent Post Op Complications Complications None Follow Up Care/Instructions Patient Instructions None needed. Anesthesiology Discharge Order Discharge Order Patient is doing well, no complaints, stable vital signs, no apparent adverse anesthesia problems. HATTIE ZHAO DO May 19, 2020 09:06
[2020-05-19] MEDS ORDERED: AMLO10TA7 PO (10:12)
[2020-05-19] MEDS ORDERED: DRON400T2 PO (10:12)
[2020-05-19] MEDS ORDERED: RIVA20TA PO (10:26)
--- NOTE | 2020-05-19 10:51 | NUR ---
IV WAS DC'D AMBULATORY TO BATHROOM. TAKING LIQUIDS WITHOUT DIFFICULTY. PLAN TO RETURN NEXT WEEK FOR REPEAT CARDIOVERSION SINUS WAS SHORT LIVED. PREFERS PT TO BE TAKING MULTAQ LONGER BEFORE CARDIOVERTING AGAIN. [facility] CALLED FOR TRANSPORTATION
--- NOTE | 2020-05-19 11:36 | Cardioversion ---
Cardioversion PROCEDURE PHYSICIAN: Sherif Alcocer MD DATE OF PROCEDURE: 05/19/20 DIRECT EXTERNAL ELECTRICAL CARDIOVERSION: Indications: Atrial Fibrillation Preoperative diagnoses: Atrial Fibrillation Postoperative diagnosis: Unsuccessful Electrical Cardioversion History: Persistent AF. Anesthesia: By Anesthesia services Complications: None Specimen: None Contrast: 0 Flouroscopy: none Procedure Details: The patient was brought the labor relations representative after informed consent was taken, all the risks and complications were explained including the risk of stroke. ARCHANA did not demonstrate LA/JASMINE thrombus. However atleast moderate MS with mild MR was noted. Electrical cardioversion was carried out with anesthesia support with propofol. 200 joules of synchronized shock was delivered through external patches which promptly restored sinus rhythm. However, after few minutes, the patient went back into AF. The patient tolerated the procedure well. Conclusions: 1.Unsuccessful Cardioversion. 2.Continue Multaq for one more week and Continue oral anticoagulation. 3.Repeat Cardioversion in 7 days. Sherif Alcocer MD, [facility] Cardiac Electrophysiology Mary ALCOCER MD May 19, 2020 11:36
== END 2020-05-19 10:50 | disposition home or self-care (01) ==
LOC: SDC 06:53
PROVIDERS: ATTEND Internal Medicine Interventional Cardiology
DX: I48.19 Other persistent atrial fibrillation (principal); I10 Essential (primary) hypertension; I25.10 Atherosclerotic heart disease of native coronary artery without angina pectoris; G20 Parkinson's disease; E11.9 Type 2 diabetes mellitus without complications; E78.5 Hyperlipidemia, unspecified; I65.29 Occlusion and stenosis of unspecified carotid artery; G47.30 Sleep apnea, unspecified; E66.01 Morbid (severe) obesity due to excess calories; Z68.37 Body mass index [BMI] 37.0-37.9, adult; Z79.899 Other long term (current) drug therapy; Z88.5 Allergy status to narcotic agent; Z80.9 Family history of malignant neoplasm, unspecified; Z82.3 Family history of stroke
CPT/HCPCS: 92960; 93005; 93312; 93320; 93325

== ENCOUNTER → 2020-05-24 | Outpatient (CLI) | payer MEDICARE ==
[~2020-05-24] VITALS: Ht 172 cm; Wt 112.0 kg
[~2020-05-24] MED LIST changes: +AMLO10TA7 PO; +CARB1TAB40 PO; +CATHETER FLUSH 10 ML SYR IV PRN; +DRON400T2 PO; -HURRICAINE EXT TUBE (BENZOCAINE) ONE; -NS IV 1000 ML 1,000 ML ONE; +OMEG-154 PO; +PANT40TA3 PO; -PANT40TA52 PO; +REGADENOSON 0.4 MG/5 ML SYR (LEXISCAN) IV ONE; +RIVA20TA PO
--- NOTE | 2020-05-24 14:14 | STRESS TEST ---
DATE OF SERVICE: 05/24/2020 RESTING AND POST REGADENOSON TECHNETIUM-99M TETROFOSMIN SPECT CT IMAGING ORDERING PHYSICIAN: Ivanna Concepcion APRN. PRIMARY PHYSICIAN: Dr. Harrell. OTHER PHYSICIAN: Dr. Mcintyre. CLINICAL DIAGNOSES: Coronary artery disease, paroxysmal atrial fibrillation. Baseline images were carried out after injection of 10.95 mCi of technetium-99m Tetrofosmin. This was followed by 0.4 mg Regadenoson and 30.7 mCi of technetium-99m Tetrofosmin for stress imaging. The electrocardiogram showed sinus rhythm at baseline. It did not change significantly with the Regadenoson infusion. Review of images at rest and following stress does not indicate any distinct perfusion defects consistent with significant myocardial ischemia or infarction. Gated images show normal global left ventricular systolic function with normal regional wall motion. Left ventricular ejection fraction is calculated to be 67%. Left ventricular end diastolic volume is 87 mL. TID is absent (1.14). CONCLUSIONS: 1. No evidence of any significant myocardial ischemia or infarction on this study. 2. Normal regional wall motion. 3. Normal global left ventricular systolic function with a calculated ejection fraction of 67%. Job ID: [id number] DocumentID: [id number] Dictated Date: 05/24/2020 14:00:47 Supervisor Policy Change Clerks Date: 05/24/2020 14:13:10 Dictated By: KI MCINTYRE MD, MA, FACP, FACC,
== END ==
LOC: CARD 07:47
PROVIDERS: ATTEND Nurse Practitioner Family
DX: I48.0 Paroxysmal atrial fibrillation (principal); I25.10 Atherosclerotic heart disease of native coronary artery without angina pectoris; I65.23 Occlusion and stenosis of bilateral carotid arteries; E78.5 Hyperlipidemia, unspecified; G47.30 Sleep apnea, unspecified
CPT/HCPCS: 78452; 93017; A9502

== ENCOUNTER 2021-12-04 10:54 | Outpatient (RCR) | payer MEDICARE ==
[~2021-12-04 10:54] MED LIST changes: +AMLO-251 PO; -AMLO10TA7 PO; -CATHETER FLUSH 10 ML SYR IV PRN; -DRON400T2 PO; +DRON400T6 PO; -PANT40TA3 PO; +PANT40TA52 PO; -REGADENOSON 0.4 MG/5 ML SYR (LEXISCAN) IV ONE
== END 2021-12-07 | disposition home or self-care (01) ==
PROVIDERS: ATTEND Specialist
DX: G20 Parkinson's disease (principal)

== ENCOUNTER 2022-01-02 09:32 | Outpatient (RCR) | payer MEDICARE | END 2022-01-02 10:50 | disposition home or self-care (01) | PROVIDERS: ATTEND Specialist | DX: G20 Parkinson's disease (principal) ==

== ENCOUNTER 2022-04-22 00:11 | Emergency (ER) | payer MEDICARE ==
[~2022-04-22] VITALS: Ht 170.2 cm; Wt 98.0 kg
--- NOTE | 2022-04-22 01:23 | ED Syncope ---
General Chief Complaint: Dizziness/Syncope Stated Complaint: VERTIGO,NAUSEA,SOA Nursing Triage Note: c/o waking up with dizziness, nausea. reports sx improved now. Source of Information: Patient Exam Limitations: No Limitations History of Present Illness Date Seen by Provider: Apr 22, 2022 Time Seen by Provider: 00:44 Initial Comments Patient to the ER by private conveyance chief complaint that he was awoken from sleep by an hour or so prior to arrival with dizziness feeling like the room was spinning around him. He said it got worse after he rolled over. He is also experiencing some pain in his left shoulder blade and back. He has no history of coronary disease but he has diabetes, hypertension, hyperlipidemia, not a smoker. He states the symptoms lasted for less than an hour and have all but resolved by the time he arrived. No nausea vomiting diarrhea. No fevers chills cough shortness of air or chest pain. Echocardiogram from [address] Alcocer demonstrating EF of 65 to 70%. Cardiac catheterization by Dr. Cat and 2014 demonstrating mild to moderate coronary artery disease without focal significant stenoses. EF 60%. Allergies and Home Medications Allergies Coded Allergies: morphine (Verified Adverse Reaction, Intermediate, PSYCH ISSUES, 03/05/19) Patient Home Medication List Home Medication List Reviewed: Yes Acetaminophen (Tylenol Extra Strength) 500 Mg Tablet, 500 MG PO Q6H PRN for PAIN-MILD TO MODERATE Prescribed by: CJ JOYA on 01/16/19 0947 Amlodipine Besylate (Amlodipine Besylate) 10 Mg Tablet, 10 MG PO DAILY, (Repor helena) Entered as Reported by: PERI DEL TORO on 05/19/20 1012 Carbidopa/Levodopa (Carbidopa-Levodopa 25-100 Tab) 1 Each Tablet, 1 EACH PO TID, (Reported) Entered as Reported by: MARILEE HAAS on 01/08/19 1009 Carbidopa/Levodopa (Carbidopa-Levo ER 25-100 Tab) 1 Each Tablet.er, 1 EACH PO HS, (Reported) Entered as Reported by: PERI DEL TORO on 05/19/20 0754 Clopidogrel Bisulfate (Clopidogrel) 75 Mg Tablet, 75 MG PO DAILY@1200, (Reported) Entered as Reported by: MARILEE HAAS on 01/08/19 1005 Dronedarone HCl (Multaq) 400 Mg Tablet, 400 MG PO BID, (Reported) Entered as Reported by: PERI DEL TORO on 05/19/20 1012 Finasteride (Finasteride) 5 Mg Tablet, 5 MG PO DAILY@1700, (Reported) Entered as Reported by: MARILEE HAAS on 01/08/19 1009 Ibuprofen (Ibuprofen) 200 Mg Capsule, 600 MG PO TID PRN for PAIN-MODERATE Prescribed by: CJ JOYA on 01/16/19 0947 Irbesartan (Irbesartan) 300 Mg Tablet, 300 MG PO DAILY, (Reported) Entered as Reported by: MARILEE HAAS on 01/08/19 1005 Lovastatin (Lovastatin) 20 Mg Tablet, 20 MG PO HS, (Reported) Entered as Reported by: MARILEE HAAS on 01/08/19 1005 Magnesium Oxide (Magnesium) 250 Mg Tablet, 250 MG PO TUE,MICHAEL,SAT, (Reported) Entered as Reported by: PERI DEL TORO on 05/19/20 0757 Meclizine HCl (Meclizine HCl) 25 Mg Tablet, 25 MG PO Q6H PRN for VERTIGO Prescribed by: SAMANTHA WARREN on 04/22/22 0353 Metformin HCl (Metformin HCl) 1,000 Mg Tablet, 1,000 MG PO BID, (Reported) Entered as Reported by: MARILEE HAAS on 01/08/19 1005 Roland-3S/Dha/Epa/Fish Oil (Fish Oil Roland-3 Softgel) 1 Each Capsule.dr, 3 EACH PO MON,WED,FRI, (Reported) Entered as Reported by: PERI DEL TORO on 05/19/20 0757 Pantoprazole Sodium (Pantoprazole Sodium) 40 Mg Tablet.dr, 40 MG PO DAILY@1200, (Reported) Entered as Reported by: MARILEE HAAS on 01/08/19 1009 Rivaroxaban (Xarelto) 20 Mg Tablet, 20 MG PO HS, (Reported) Entered as Reported by: PERI DEL TORO on 05/19/20 1026 Review of Systems Constitutional: No chills, No diaphoresis; dizziness EENTM: No ear discharge, No ear pain Respiratory: No cough, No short of breath Cardiovascular: No chest pain, No edema Gastrointestinal: No abdominal pain, No constipation, No diarrhea Genitourinary: No discharge, No dysuria Musculoskeletal: No back pain, No joint pain All Other Systems Reviewed Negative Unless Noted: Yes Past Ossidub-Vdmakv-Glozrz Hx Patient Social History Tobacco Use?: No Substance use?: No Alcohol Use?: No Pt feels they are or have been: No Seasonal Allergies Seasonal Allergies: No Past Medical History Surgery/Hospitalization HX: abdominal mass, neck fusion, lower back sx. kwaku, htn, high cholesterol, bph, gerd, niddm, mac. degeneration, napaimute, parkinsons Surgeries: Yes (BACK, FATTY TUMOR REMOVED FROM ARM BABY, LOOP RECORDER 02/2018) Abdominal Respiratory: Yes Sleep Apnea Currently Using CPAP: Yes Cardiac: Yes Atrial Fibrillation, Hypertension Neurological: Yes Parkinson's Disease Reproductive Disorders: No Sexually Transmitted Disease: No HIV/AIDS: No Genitourinary: Yes Kidney Infection Gastrointestinal: No Gastroesophageal Reflux Musculoskeletal: Yes Arthritis Endocrine: Yes Diabetes, Non-Insulin dep HEENT: Yes (GLASSES) Macular Degeneration Loss of Vision: Denies Hearing Impairment: Hard of Hearing Cancer: No Psychosocial: No Integumentary: No Blood Disorders: No Adverse Reaction/Blood Tranf: No (N/A) Family Medical History Arthritis Cardiovascular disease Cataracts Colon cancer Completed stroke Diabetes mellitus Hypertension Myocardial infarction Visual disorder Heart Disease, Hypertension Physical Exam Vital Signs Vital Signs - First Documented 04/22/22 00:26 Temp 36.3 Pulse 79 Resp 16 B/P (MAP) 176/89 (118) Pulse Ox 95 O2 Delivery Room Air Capillary Refill : Less Than 3 Seconds Height, Weight, BMI Height: 5'7.00" Weight: 215lbs. 0.0oz. 97.208913kr; 33.00 BMI Method:Stated General Appearance: No Apparent Distress, WD/WN HEENT: PERRL/EOMI, TMs Normal, Normal ENT Inspection, Pharynx Normal, Moist Mucous Membranes Neck: Full Range of Motion, Normal Inspection Cardiovascular: Regular Rate, Rhythm, No Edema, Normal Peripheral Pulses Respiratory: Chest Non Tender, Lungs Clear, Normal Breath Sounds, No Accessory Muscle Use, No Respiratory Distress Gastrointestinal: Normal Bowel Sounds, Non Tender, Soft Neurologic/Psychiatric: Alert, Oriented x3 Cranial Nerves: Normal Hearing, Normal Speech, PERRL Skin: Normal Color, Warm/Dry Progress/Results/Core Measures Results/Orders Lab Results Laboratory Tests Test 04/22/22 01:27 04/22/22 02:03 04/22/22 03:16 Range/Units White Blood Count 8.9 4.3-11.0 10^3/uL Red Blood Count 4.22 L 4.30-5.52 10^6/uL Hemoglobin 12.7 L 13.3-17.7 g/dL Hematocrit 37 L 40-54 % Mean Corpuscular Volume 89 80-99 fL Mean Corpuscular Hemoglobin 30 25-34 pg Mean Corpuscular Hemoglobin Concent 34 32-36 g/dL Red Cell Distribution Width 14.4 10.0-14.5 % Platelet Count 255 130-400 10^3/uL Mean Platelet Volume 10.5 9.0-12.2 fL Immature Granulocyte % (Auto) 1 % Neutrophils (%) (Auto) 68 42-75 % Lymphocytes (%) (Auto) 18 12-44 % Monocytes (%) (Auto) 8 0-12 % Eosinophils (%) (Auto) 4 0-10 % Basophils (%) (Auto) 1 0-10 % Neutrophils # (Auto) 6.0 1.8-7.8 10^3/uL Lymphocytes # (Auto) 1.6 1.0-4.0 10^3/uL Monocytes # (Auto) 0.8 0.0-1.0 10^3/uL Eosinophils # (Auto) 0.3 0.0-0.3 10^3/uL Basophils # (Auto) 0.1 0.0-0.1 10^3/uL Immature Granulocyte # (Auto) 0.1 0.0-0.1 10^3/uL Prothrombin Time 21.5 H 12.2-14.7 SEC INR Comment 1.8 H 0.8-1.4 Activated Partial Thromboplast Time 34 24-35 SEC Sodium Level 139 135-145 MMOL/L Potassium Level 3.7 3.6-5.0 MMOL/L Chloride Level 104 98-107 MMOL/L Carbon Dioxide Level 21 21-32 MMOL/L Anion Gap 14 5-14 MMOL/L Blood Urea Nitrogen 16 7-18 MG/DL Creatinine 1.33 H 0.60-1.30 MG/DL Estimat Glomerular Filtration Rate 55 BUN/Creatinine Ratio 12 Glucose Level 186 H 70-105 MG/DL Calcium Level 9.4 8.5-10.1 MG/DL Corrected Calcium 9.3 8.5-10.1 MG/DL Magnesium Level 1.3 L 1.6-2.4 MG/DL Total Bilirubin 0.6 0.1-1.0 MG/DL Aspartate Amino Transf (AST/SGOT) 16 5-34 U/L Alanine Aminotransferase (ALT/SGPT) 11 0-55 U/L Alkaline Phosphatase 52 40-136 U/L Myoglobin 83.9 10.0-92.0 NG/ML Troponin I < 0.028 < 0.028 <0.028 NG/ML B-Type Natriuretic Peptide 51.6 <100.0 PG/ML Total Protein 7.2 6.4-8.2 GM/DL Albumin 4.1 3.2-4.5 GM/DL Lipase 35 8-78 U/L Urine Color YELLOW Urine Clarity CLEAR Urine pH 5.5 5-9 Urine Specific [place] 1.025 H 1.016-1.022 Urine Protein 2+ H NEGATIVE Urine Glucose (UA) NEGATIVE NEGATIVE Urine Ketones TRACE H NEGATIVE Urine Nitrite NEGATIVE NEGATIVE Urine Bilirubin NEGATIVE NEGATIVE Urine Urobilinogen 0.2 < = 1.0 MG/DL Urine Leukocyte Esterase NEGATIVE NEGATIVE Urine RBC (Auto) NEGATIVE NEGATIVE Urine RBC NONE /HPF Urine WBC NONE /HPF Urine Squamous Epithelial Cells 0-2 /HPF Urine Crystals NONE /LPF Urine Bacteria NEGATIVE /HPF Urine Casts NONE /LPF Urine Mucus NEGATIVE /LPF Urine Culture Indicated NO My Orders Orders - KELVIN,SAMANTHA J Orthostatic Vital Signs (Adult (04/22/22) Cbc With Automated Diff (04/22/22) Magnesium (04/22/22) Chest 1 View, Ap/Pa Only (04/22/22) Ekg Tracing (04/22/22) Comprehensive Metabolic Panel (04/22/22) Myoglobin Serum (04/22/22) Protime With Inr (04/22/22) Partial Thromboplastin Time (04/22/22) O2 (04/22/22) Monitor-Rhythm Ecg Trace Only (04/22/22) Ed Iv/Invasive Line Start (04/22/22) Lipase (04/22/22) Bnp Carolyn (8/14/22 01:23) Troponin I [place] (04/22/22 01:23) Aspirin Chewable Tablet (Baby Aspirin Ch (04/22/22 01:30) Ua Culture If Indicated (04/22/22 01:32) Magnesium 1 Gm/100 Ml Ivpb (Magnesium [place] (04/22/22 02:15) Troponin I [place] (04/22/22 03:02) Medications Given in ED Vital Signs/I&O 04/22/22 04/22/22 04/22/22 00:26 01:45 03:55 Temp 36.3 36.5 Pulse 79 65 62 73 76 Resp 16 14 B/P (MAP) 176/89 (118) 159/78 (105) 160/82 149/74 (99) 146/82 (103) Pulse Ox 95 97 O2 Delivery Room Air Room Air Blood Pressure Mean: 118 Progress Progress Note #1: Time: 01:37 Progress Note Sounds like the patient had a vertiginous syndrome. Will do some Waite-Hallpike maneuvers. Since he was having a little bit of back shoulder and into his jaw pain will think about retroperitoneal organs such as the pancreas, urinary system and get a chest x-ray as well as work him up for atypical angina. We w ill give him 324 mg aspirin. He has a history of peripheral vascular disease and is already on Plavix and Eliquis for his atrial fibrillation. Progress Note #2: Time: 02:32 Progress Note Waite-Hallpike maneuver did reproduce his symptoms bilaterally. We will provide him with a prescription for meclizine. We will do a delta troponin for his very unlikely atypical anginal symptoms at 03 30. Initial ECG Impression Date: Apr 22, 2022 Initial ECG Impression Time: 01:36 Initial ECG Rate: 71 Initial ECG Rhythm: Normal Sinus Initial ECG Intervals: Normal Initial ECG Impression: Normal Initial ECG Comparisson: Unchanged Comment Normal sinus rhythm without any ST elevation or depression. Diagnostic Imaging Diagonstic Imaging: Xray Plain Films/CT/US/NM/MRI: chest Comments No acute cardiopulmonary process on 1 view chest x-ray. [facility] [place] NAME: ARABELLA JHAVERI [facility] REC#: [id number] PT STATUS: DEP ER : [id number] PHYSICIAN: SAMANTHA WARREN MD ADMIT DATE: 04/22/22/ER Signed Date of Exam:04/22/22 CHEST 1 VIEW, AP/PA ONLY EXAMINATION: Chest 1 view HISTORY: Chest pain COMPARISON: None available. FINDINGS: The lungs are clear without edema or pneumonia. No pleural effusion or pneumothorax. Heart size is normal. Loop recorder is present. IMPRESSION: 1. Clear lungs. Dictated by: Dictated on workstation # [id number] Dict: 04/22/22 0708 Trans: 04/22/22 0903 [facility] [id number] Interpreted by: ARGELIA PARADA MD Electronically signed by: ARGELIA PARADA MD 04/22/22902 Reviewed: Reviewed by Me Departure Impression Primary Impression: Benign paroxysmal positional vertigo due to bilateral vestibular disorder Disposition: HOME, SELF-CARE Condition: Stable Departure-Patient Inst. Decision time for Depature: 03:50 Referrals: CJ JOYA MD (PCP/Family) Primary Care Physician Patient Instructions: Vestibular Exercises, Vertigo (a Type of Dizziness) (DC) Add. Discharge Instructions: If you have dizziness again then you can take 1 tablet of meclizine, 25 mg every 6 hours. You can use the handouts to perform the Micha maneuvers to help reduce the symptoms. If your symptoms of dizziness/vertigo do not go away in the next week then I would encourage you to follow-up with Dr. Joya to discuss the next appropriate step. All discharge instructions reviewed with patient and/or family. Voiced understanding. Scripts Meclizine HCl (Meclizine HCl) 25 Mg Tablet 25 MG PO Q6H PRN for VERTIGO, #20 TAB 0 Refills Prov: SAMANTHA WARREN 04/22/22 Copy Copies To 1: CJ JOYA MD, TITUS J Apr 22, 2022 01:22
[2022-04-22] MEDS ORDERED: ASPIRIN 81 MG CHEW (CHILDREN'S ASA) PO ONE (01:30)
[2022-04-22 01:41] LABS: BASOPHILS # (AUTO) 0.1 10^3/uL (0.0-0.1); BASOPHILS % (AUTO) 1 % (0-10); EOSINOPHILS # (AUTO) 0.3 10^3/uL (0.0-0.3); EOSINOPHILS % (AUTO) 4 % (0-10); HEMATOCRIT 37 % (40-54); HEMOGLOBIN 12.7 g/dL (13.3-17.7); LYMPHOCYTES # (AUTO) 1.6 10^3/uL (1.0-4.0); LYMPHOCYTES % (AUTO) 18 % (12-44); MEAN CORPUSCULAR HEMOGLOBIN 30 pg (25-34); MEAN CORPUSCULAR HGB CONC 34 g/dL (32-36); MEAN CORPUSCULAR VOLUME 89 fL (80-99); MEAN PLATELET VOLUME 10.5 fL (9.0-12.2); MONOCYTES # (AUTO) 0.8 10^3/uL (0.0-1.0); MONOCYTES % (AUTO) 8 % (0-12); NEUTROPHILS % (AUTO) 68 % (42-75); PLATELET COUNT 255 10^3/uL (130-400); WHITE BLOOD COUNT 8.9 10^3/uL (4.3-11.0)
[2022-04-22 01:45] VITALS: BP_SYST 146; BP_SYST 149; BP_SYST 159; BP_DIAS 74; BP_DIAS 78; BP_DIAS 82
[2022-04-22 01:51] LABS: ALBUMIN 4.1 GM/DL (3.2-4.5)
[2022-04-22 01:52] LABS: INR 1.8 (0.8-1.4); POTASSIUM 3.7 MMOL/L (3.6-5.0); PROTHROMBIN TIME PATIENT 21.5 SEC (12.2-14.7)
[2022-04-22 01:53] LABS: CALCIUM 9.4 MG/DL (8.5-10.1)
[2022-04-22 01:54] LABS: TOTAL PROTEIN 7.2 GM/DL (6.4-8.2)
[2022-04-22 01:56] LABS: BILIRUBIN,TOTAL 0.6 MG/DL (0.1-1.0)
[2022-04-22 01:58] LABS: CREATININE SERUM 1.33 MG/DL (0.60-1.30)
[2022-04-22 02:00] LABS: MAGNESIUM 1.3 MG/DL (1.6-2.4)
[2022-04-22 02:08] LABS: BILIRUBIN,URINE NEGATIVE (NEGATIVE); CLARITY,URINE CLEAR; COLOR,URINE YELLOW; GLUCOSE, URINE (UA) NEGATIVE (NEGATIVE); KETONES,URINE TRACE (NEGATIVE); LEUKOCYTE ESTERASE ,URINE NEGATIVE (NEGATIVE); NITRITE,URINE NEGATIVE (NEGATIVE); PH,URINE 5.5 (5-9); PROTEIN,URINE 2+ (NEGATIVE)
[2022-04-22] MEDS ORDERED: MAGNESIUM 1 GM/100 ML IVPB 100 ML IV ONE (02:15)
[2022-04-22 02:22] LABS: BACTERIA,URINE NEGATIVE /HPF; SQUAMOUS EPITHELIAL CELL,UR 0-2 /HPF
[2022-04-22] MEDS ORDERED: MECL-149 PO (03:53)
[2022-04-22 03:55] VITALS: BP 160/82
--- NOTE | 2022-04-22 07:20 | Diagnostic Imaging Report ---
EXAMINATION: Chest 1 view HISTORY: Chest pain COMPARISON: None available. FINDINGS: The lungs are clear without edema or pneumonia. No pleural effusion or pneumothorax. Heart size is normal. Loop recorder is present. IMPRESSION: 1. Clear lungs. Dictated by: Dictated on workstation # [id number]
== END 2022-04-22 03:59 | disposition home or self-care (01) ==
LOC: EDUNIT# 00:11 → ER 00:14
DX: H81.13 Benign paroxysmal vertigo, bilateral (principal); G47.30 Sleep apnea, unspecified; Z99.89 Dependence on other enabling machines and devices
CPT/HCPCS: 36415; 71045; 80053; 81000; 83690; 83735; 83874; 83880; 84484; 85025; 85610; 85730; 93005; 93041

== ENCOUNTER → 2023-02-11 | Outpatient (CLI) | payer MEDICARE ==
[~2023-02-11] MED LIST changes: -CARB1TAB19 PO; +CARB1TAB32 PO; +MECL-149 PO
== END ==
LOC: CARD 12:21
PROVIDERS: ATTEND Internal Medicine Cardiovascular Disease
DX: I08.0 Rheumatic disorders of both mitral and aortic valves (principal); I25.10 Atherosclerotic heart disease of native coronary artery without angina pectoris
CPT/HCPCS: 93306

== ENCOUNTER → 2023-04-09 | Outpatient (CLI) | payer MEDICARE ==
[~2023-04-09] MED LIST changes: +CATHETER FLUSH 10 ML SYR IVP PRN; +REGADENOSON 0.4 MG/5 ML SYR (LEXISCAN) IV ONE
[2023-04-09 13:12] VITALS: BP 165/84
--- NOTE | 2023-04-10 14:29 | STRESS TEST ---
DATE OF SERVICE: 04/09/2023 RESTING AND POST REGADENOSON TECHNETIUM-99M TETROFOSMIN SPECT CT IMAGING ORDERING PHYSICIAN: Dr. Cat. PRIMARY PHYSICIAN: Dr. Harrell. CLINICAL DIAGNOSIS: Coronary artery disease. Baseline images were carried out after injection of 10.5 mCi of technetium-99m tetrofosmin. This was followed by 0.4 mg regadenoson and 31 mCi technetium-99m tetrofosmin for stress imaging. The electrocardiogram showed sinus rhythm at baseline. The electrocardiogram did not change significantly with the regadenoson infusion. There was baseline nonspecific T-wave abnormality, which did not change significantly. The patient noted some shortness of breath following regadenoson infusion, which resolved in a few minutes. Review of images at rest and following stress does not indicate any significant perfusion defects consistent with myocardial ischemia or infarction. Gated images show normal global left ventricular systolic function with normal regional wall motion. Left ventricular ejection fraction calculated to be 75%. CONCLUSIONS: 1. No evidence of any significant myocardial ischemia or infarction on this study. 2. Normal regional [ ] [ ]. 3. Normal global left ventricular systolic function with calculated ejection fraction 75%. Job ID: [id number] DocumentID: [id number] Dictated Date: 04/10/2023 13:02:01 Insurance Claims Adjuster Date: 04/10/2023 14:27:00 Dictated By: KI CAT MD; CAREN; FACP; FACC;
== END ==
LOC: CARD 11:20
PROVIDERS: ATTEND Internal Medicine Cardiovascular Disease
DX: I25.10 Atherosclerotic heart disease of native coronary artery without angina pectoris (principal)
CPT/HCPCS: 78452; 93017; A9502